=== PATIENT | female | born 1940 | race Caucasian/White ===

== ENCOUNTER → 2016-12-29 | Outpatient (CLI) | payer MEDICARE, OTHER ==
--- NOTE | 2017-01-05 06:46 | ECHOCARDIOGRAPHY REPORT ---
DATE OF SERVICE: ECHOCARDIOGRAM REPORT DATE OF SERVICE: 12/29/2016 REFERRING PHYSICIAN: Dr. Liz David DIAGNOSIS: Follow up of left breast irregularity. FINDINGS: 1. Sinus rhythm. 2. Left atrial dimensions are normal. 3. Aortic root dimensions are normal. 4. Left ventricular systolic function is preserved. Left ventricular ejection fraction is 60-70%. Mild concentric LVH is present. Diastolic interventricular septal diameter is 1.2 cm. 5. There is no wall motion abnormalities. 6. Right heart size and function is normal. 7. There is no evidence of pericardial effusion. 8. Mild diastolic dysfunction. 9. IVC is borderline enlarged with a diameter of 1.9 cm. VALVULAR STRUCTURES OF THE HEART There is mild tricuspid regurgitation and mild mitral regurgitation. RVSP is 31 mmHg. There is no significant aortic or pulmonic valve pathology. CONCLUSION: 1. Left ventricular and right ventricular size and function are normal. 2. Left ventricular function of 60-70% 3. There is no significant valvular heart disease. 4. There is mild diastolic dysfunction. 5. Mild pulmonary hypertension is present with RVSP of 31 mmHg. Job ID: [id number] DocumentID: [id number] Dictated Date: 01/04/2017 14:51:39 Software Engineer Date: 01/04/2017 15:42:06 Dictated By: ANURAG DOUGLASS MD
== END ==
LOC: CARD 10:58
PROVIDERS: ATTEND Family Medicine
DX: R01.1 Cardiac murmur, unspecified (principal)
CPT/HCPCS: 93306

== ENCOUNTER → 2017-01-18 | Outpatient (CLI) | payer MEDICARE, OTHER | LOC: CARD 15:25 | PROVIDERS: ATTEND Family Medicine | DX: R07.9 Chest pain, unspecified (principal) | CPT/HCPCS: 93005 ==

== ENCOUNTER 2017-02-20 20:35 | Outpatient (CLI) | payer MEDICARE, OTHER | END 2017-02-21 06:56 | disposition home or self-care (01) | LOC: SLEEP 20:35 | PROVIDERS: ATTEND Family Medicine | DX: G47.33 Obstructive sleep apnea (adult) (pediatric) (principal) | CPT/HCPCS: 95811 ==

== ENCOUNTER 2018-04-24 18:18 | Emergency (ER) | payer MEDICARE, OTHER ==
[~2018-04-24] VITALS: Ht 177.8 cm; Wt 81.6 kg
[2018-04-24 18:44] LABS: BILIRUBIN,URINE NEGATIVE (NEGATIVE); CLARITY,URINE CLEAR; COLOR,URINE YELLOW; GLUCOSE, URINE (UA) NEGATIVE (NEGATIVE); KETONES,URINE NEGATIVE (NEGATIVE); LEUKOCYTE ESTERASE ,URINE 1+ (NEGATIVE); NITRITE,URINE NEGATIVE (NEGATIVE); PH,URINE 7 (5-9); PROTEIN,URINE NEGATIVE (NEGATIVE); UROBILINOGEN,URINE NORMAL (NORMAL)
[2018-04-24 18:46] LABS: BASOPHILS # (AUTO) 0.1 10^3/uL (0.0-0.1); BASOPHILS % (AUTO) 1 % (0-10); EOSINOPHILS # (AUTO) 0.3 10^3/uL (0.0-0.3); EOSINOPHILS % (AUTO) 3 % (0-10); HEMATOCRIT 37 % (35-52); HEMOGLOBIN 12.4 G/DL (11.5-16.0); LYMPHOCYTES # (AUTO) 2.9 X 10^3 (1.0-4.0); LYMPHOCYTES % (AUTO) 31 % (12-44); MEAN CORPUSCULAR HEMOGLOBIN 30 PG (25-34); MEAN CORPUSCULAR HGB CONC 33 G/DL (32-36); MEAN CORPUSCULAR VOLUME 90 FL (80-99); MEAN PLATELET VOLUME 10.1 FL (7.4-10.4); MONOCYTES # (AUTO) 1.1 X 10^3 (0.0-1.0); MONOCYTES % (AUTO) 12 % (0-12); NEUTROPHILS % (AUTO) 54 % (42-75); PLATELET COUNT 228 10^3/uL (130-400); RED BLOOD COUNT 4.13 10^6/uL (4.35-5.85); WHITE BLOOD COUNT 9.2 10^3/uL (4.3-11.0)
[2018-04-24 18:53] LABS: SQUAMOUS EPITHELIAL CELL,UR 0-2 /HPF
--- NOTE | 2018-04-24 18:54 | ED General ---
General Chief Complaint: Dizziness/Syncope Stated Complaint: DIZZY Source of Information: Patient Exam Limitations: No Limitations History of Present Illness Date Seen by Provider: Apr 24, 2018 Time Seen by Provider: 18:35 Initial Comments PT ARRIVES VIA POV FROM HOME C/O SUDDEN ONSET OF SEVERE DIZZINESS AT 1630 BEGAN WHILE SITTING EXTREME SPINNING SENSATION + NAUSEA, NO VOMITING NO HEADACHE NO CHEST PAIN NO PALPITATIONS--PT HAS HISTORY OF ATRIAL FIBRILLATION AND IS ON ELIQUIS NO PARESTHESIAS OR MOTOR DEFICITS NO BLURRY VISION SLIGHT SHORT OF BREATH, BUT IS ONGOING PROBLEM, AND SAW DR. TORRE ON Sunday FOR IT--THOUGHT MIGHT BE DUE TO ELEVATED BP, BUT NO MEDICATION CHANGES OR ANY TESTS, DEFERRED TO BREAD WRAPPER--ROUTINE APPOINTMENT IN HAS HAD THIS IN THE PAST, BUT WAS A LONG TIME AGO. HAS MECLIZINE AT HOME AND TOOK 1 WITHOUT IMPROVEMENT NO UNUSUAL ACTIVITY--STATES SHE V[facility]TEERED AT [facility] THIS MORNING. PCP: DR. TORRE Allergies and Home Medications Allergies Coded Allergies: No Known Drug Allergies (Unverified , 04/24/18) Home Medications Diazepam 2 Mg Tablet, 2 MG PO Q4H Prescribed by: ROBERT SANTIZO on 04/24/182131 Meclizine HCl 25 Mg Tablet, 25-50 MG PO Q6H Prescribed by: ROBERT SANTIZO on 04/24/182131 Ondansetron 8 Mg Tab.rapdis, 8 MG PO Q4H Prescribed by: ROBERT SANTIZO on 04/24/182131 Promethazine HCl 25 Mg Supp.rect, 25 MG RC Q4H Prescribed by: ROBERT SANTIZO on 04/24/182131 Scopolamine 1 Each Patch.td72, 1 EACH TD Q72 HOURS Prescribed by: ROBERT SANTIZO on 04/24/182131 Patient Home Medication List Home Medication List Reviewed: Yes Review of Systems Constitutional: see HPI; No diaphoresis; dizziness; No malaise, No weakness EENTM: no symptoms reported Respiratory: see HPI, short of breath Cardiovascular: no symptoms reported; No chest pain, No edema, No palpitations , No syncope, No vascular heart diseas Gastrointestinal: see HPI; No abdominal pain; nausea; No vomiting Genitourinary: no symptoms reported Musculoskeletal: no symptoms reported Skin: no symptoms reported Psychiatric/Neurological: See HPI (DIZZY); Denies Headache, Denies Numbness, Denies Paresthesia, Denies Seizure, Denies Tingling, Denies Tremors, Denies Weakness Hematologic/Lymphatic: No Symptoms Reported Immunological/Allergic: no symptoms reported Past Oichrhl-Sltcrd-Yvzpjk Hx Patient Social History Alcohol Use: Occasionally Uses Recreational Drug Use: No Smoking Status: Never a Smoker Recent Foreign Travel: No Contact w/Someone Who Travel: No Seasonal Allergies Seasonal Allergies: Yes Past Medical History Surgeries: Yes (HSYT/BSO; CYSTOCOELE) Bladder Surgery, Hysterectomy, Oophorectomy Respiratory: Yes Sleep Apnea Currently Using CPAP: Yes Currently Using BIPAP: No Cardiac: Yes Atrial Fibrillation, Hypertension 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 oz. 77.576036dl; BMI Method: General Appearance: No Apparent Distress, WD/WN, Other (KEEPS EYES CLOSED AND LAYING STILL) HEENT: PERRL/EOMI, TMs Normal, Normal ENT Inspection, Pharynx Normal, Other ( NO NYSTAGMUS) Neck: Full Range of Motion, Normal Inspection, Non Tender, Supple; No Carotid Bruit, No JVD Respiratory: Normal Breath Sounds, No Accessory Muscle Use, No Respiratory Distress Cardiovascular: Regular Rate, Rhythm, No Edema, No Gallop, No JVD, No Murmur, Normal Peripheral Pulses Gastrointestinal: Normal Bowel Sounds, No Organomegaly, No Pulsatile Mass, Non Tender, Soft Back: No CVA Tenderness Extremity: Normal Capillary Refill, Normal Inspection, Normal Range of Motion, Non Tender, No Calf Tenderness, No Pedal Edema Neurologic/Psychiatric: Alert, Oriented x3, No Motor/Sensory Deficits, Normal Mood/Affect, veterinary parasitologist II-XII Norm as Tested, Other (UNABLE TO PERFORM CEREBELLAR TESTS ON ARRIVAL DUE TO DIZZINESS) Skin: Normal Color, Warm/Dry Progress/Results/Core Measures Suspected Sepsis SIRS Temperature: Pulse: Respiratory Rate: Laboratory Tests 04/24/18 18:37: White Blood Count 9.2 Blood Pressure / Mean: Laboratory Tests 04/24/18 18:37: Creatinine 0.85, INR Comment 1.0, Platelet Count 228, Total Bilirubin 0.6 Results/Orders Lab Results Laboratory Tests Test 04/24/18 18:28 04/24/18 18:37 Range/Units Urine Color YELLOW Urine Clarity CLEAR Urine pH 7 5-9 Urine Specific Drew 1.010 L 1.016-1.022 Urine Protein NEGATIVE NEGATIVE Urine Glucose (UA) NEGATIVE NEGATIVE Urine Ketones NEGATIVE NEGATIVE Urine Nitrite NEGATIVE NEGATIVE Urine Bilirubin NEGATIVE NEGATIVE Urine Urobilinogen NORMAL NORMAL MG/DL Urine Leukocyte Esterase 1+ H NEGATIVE Urine RBC (Auto) NEGATIVE NEGATIVE Urine RBC NONE /HPF Urine WBC 2-5 /HPF Urine Squamous Epithelial Cells 0-2 /HPF Urine Crystals NONE /LPF Urine Bacteria NONE /HPF Urine Casts NONE /LPF Urine Mucus NEGATIVE /LPF Urine Culture Indicated NO White Blood Count 9.2 4.3-11.0 10^3/uL Red Blood Count 4.13 L 4.35-5.85 10^6/uL Hemoglobin 12.4 11.5-16.0 G/DL Hematocrit 37 35-52 % Mean Corpuscular Volume 90 80-99 FL Mean Corpuscular Hemoglobin 30 25-34 PG Mean Corpuscular Hemoglobin Concent 33 32-36 G/DL Red Cell Distribution Width 14.0 10.0-14.5 % Platelet Count 228 130-400 10^3/uL Mean Platelet Volume 10.1 7.4-10.4 FL Neutrophils (%) (Auto) 54 42-75 % Lymphocytes (%) (Auto) 31 12-44 % Monocytes (%) (Auto) 12 0-12 % Eosinophils (%) (Auto) 3 0-10 % Basophils (%) (Auto) 1 0-10 % Neutrophils # (Auto) 5.0 1.8-7.8 X 10^3 Lymphocytes # (Auto) 2.9 1.0-4.0 X 10^3 Monocytes # (Auto) 1.1 H 0.0-1.0 X 10^3 Eosinophils # (Auto) 0.3 0.0-0.3 10^3/uL Basophils # (Auto) 0.1 0.0-0.1 10^3/uL Prothrombin Time 13.3 12.2-14.7 SEC INR Comment 1.0 0.8-1.4 Activated Partial Thromboplast Time 28 24-35 SEC Sodium Level 141 135-145 MMOL/L Potassium Level 3.4 L 3.6-5.0 MMOL/L Chloride Level 104 98-107 MMOL/L Carbon Dioxide Level 26 21-32 MMOL/L Anion Gap 11 5-14 MMOL/L Blood Urea Nitrogen 22 H 7-18 MG/DL Creatinine 0.85 0.60-1.30 MG/DL Estimat Glomerular Filtration Rate > 60 BUN/Creatinine Ratio 26 Glucose Level 112 H 70-105 MG/DL Calcium Level 9.2 8.5-10.1 MG/DL Magnesium Level 2.1 1.8-2.4 MG/DL Total Bilirubin 0.6 0.1-1.0 MG/DL Aspartate Amino Transf (AST/SGOT) 19 5-34 U/L Alanine Aminotransferase (ALT/SGPT) 18 0-55 U/L Alkaline Phosphatase 76 40-136 U/L Troponin I < 0.30 <0.30 NG/ML Total Protein 7.4 6.4-8.2 GM/DL Albumin 4.3 3.2-4.5 GM/DL TSH [place] Testing 2.70 0.35-4.94 UIU/ML My Orders Orders - ROBERT SANTIZO DO Saline Lock/Iv-Start (04/24/18 18:37) Ekg Tracing (04/24/18 18:37) Monitor-Rhythm Ecg Trace Only (04/24/18 18:37) Ct Head Wo (04/24/18 18:37) Cbc With Automated Diff (04/24/18 18:37) Comprehensive Metabolic Panel (04/24/18 18:37) Magnesium (04/24/18 18:37) Protime With Inr (04/24/18 18:37) Partial Thromboplastin Time (04/24/18 18:37) Thyroid Analyzer (04/24/18 18:37) Troponin I (04/24/18 18:37) Ua Culture If Indicated (04/24/18 18:37) Chest 1 View, Ap/Pa Only (04/24/18 18:37) Ondansetron Injection (Zofran Injectio (04/24/18 19:00) Scopolamine Patch (Transderm-Scop Patch) (04/24/18 19:00) Meclizine Tablet (Antivert Tablet) (04/24/18 19:00) Promethazine Injection (Phenergan Injec (04/24/18 19:45) Diphenhydramine Injection (Benadryl Inje (04/24/18 19:45) Ondansetron Injection (Zofran Injectio (04/24/18 20:15) Diazepam Injection (Valium Injection) (04/24/18 20:15) Medications Given in ED Current Medications Medications Dose Ordered Sig/Morenita Route Start Time Stop Time Status Last Admin Dose Admin Diazepam 2.5 mg ONCE ONCE IV 04/24/18 20:15 04/24/18 20:16 DC 04/24/18 20:20 2.5 MG Diphenhydramine HCl 25 mg ONCE ONCE IVP 04/24/18 19:45 04/24/18 19:46 DC 04/24/18 20:19 25 MG Meclizine HCl 50 mg ONCE ONCE PO 04/24/18 19:00 04/24/18 19:01 DC 04/24/18 20:19 50 MG Ondansetron HCl 4 mg ONCE ONCE IVP 04/24/18 19:00 04/24/18 19:01 DC 04/24/18 18:55 4 MG Ondansetron HCl 8 mg ONCE ONCE IVP 04/24/18 20:15 04/24/18 20:16 DC 04/24/18 20:19 8 MG Promethazine HCl 25 mg ONCE ONCE IVP 04/24/18 19:45 04/24/18 19:46 DC 04/24/18 20:20 25 MG Scopolamine 1.5 mg ONCE ONCE TD 04/24/18 19:00 04/24/18 19:01 DC 04/24/18 18:55 1.5 MG Vital Signs/I&O 04/24/18 04/24/18 18:33 22:00 Temp 98.3 Pulse 65 69 Resp 20 20 B/P (MAP) 170/95 (120) 140/89 Pulse Ox 98 96 O2 Delivery Room Air Room Air Capillary Refill : Progress Note : Progress Note NAUSEA AND DIZZINESS GONE AT DISMISSAL, NOW JUST FEELING EFFECTS FROM MEDICATIONS--PHENERGAN, BENADRYL. MECLIZINE, VALIUM PT ABLE TO AMBULATE TO AND FROM BATHROOM WITH MINIMAL ASSIST BOTH PT AND FEEL COMFORTABLE GOING HOME ECG Initial ECG Impression Date: Apr 24, 2018 Initial ECG Impression Time: 18:40 Initial ECG Rate: 63 Initial ECG Rhythm: Normal Sinus Diagnostic Imaging Comments CXR--NO ACUTE PROCESS CT HEAD--NO ACUTE PROCESS, MILDLY ENLARGED VENTRICLES PER RADIOLOGIST REPORTS @ 1955 Reviewed: Reviewed by Me Departure Impression Primary Impression: Vertigo Disposition: 01 HOME, SELF-CARE Condition: Improved Departure-Patient Inst. Referrals: NARCISO TORRE DO (PCP/Family) Primary Care Physician Patient Instructions: Vertigo (a Type of Dizziness) (DC) Add. Discharge Instructions: SLOW POSITION CHANGES DO NOT DO ANYTHING WITHOUT ASSISTANCE UNTIL YOUR SYMPTOMS ARE COMPLETELY GONE LOTS OF FLUIDS FOLLOW UP WITH YOUR DR IN 1-2 DAYS IF NO BETTER RETURN TO ER IF WORSE All discharge instructions reviewed with patient and/or family. Voiced understanding. Scripts Diazepam (Valium) 2 Mg Tablet 2 MG PO Q4H for Dizziness, #15 TAB Prov: ROBERT SANTIZO DO 04/24/18 Ondansetron (Zofran Odt) 8 Mg Tab.rapdis 8 MG PO Q4H for Nausea/Vomiting, #14 TAB Prov: ROBERT SANTIZO DO 04/24/18 Scopolamine (Transderm-Scop) 1 Each Patch.td72 1 EACH TD Q72 HOURS for Dizziness, #3 PATCH Prov: ROBERT ASNTIZO DO 04/24/18 Promethazine HCl (Phenergan) 25 Mg Supp.rect 25 MG RC Q4H for Nausea/Vomiting, #10 SUPP.RECT Prov: ROBERT SANTIZO DO 04/24/18 Meclizine HCl (Meclizine HCl) 25 Mg Tablet 25-50 MG PO Q6H for Dizziness, #30 TAB Prov: ROBERT SANTIZO DO 04/24/18 ROBERT SANTIZO DO Apr 24, 2018 18:54
[2018-04-24 18:58] LABS: PROTHROMBIN TIME PATIENT 13.3 SEC (12.2-14.7)
[2018-04-24] MEDS ORDERED: SCOPOLAMINE 1.5 MG (TRANSDERM-SCOP) PATCH TD ONE (19:00)
[2018-04-24] MEDS ORDERED: ONDANSETRON 4 MG/2 ML (SDV) Z0FRAN IVP ONE ×2 (19:00→20:15)
[2018-04-24] MEDS ORDERED: MECLIZINE 25 MG (ANTIVERT) TAB PO ONE (19:00)
[2018-04-24 19:09] LABS: ALANINE AMINOTRANSFERASE 18 U/L (0-55); ALBUMIN 4.3 GM/DL (3.2-4.5); ALKALINE PHOSPHATASE 76 U/L (40-136); BILIRUBIN,TOTAL 0.6 MG/DL (0.1-1.0); BUN/CREATININE RATIO 26; CALCIUM 9.2 MG/DL (8.5-10.1); CARBON DIOXIDE 26 MMOL/L (21-32); CHLORIDE 104 MMOL/L (98-107); CREATININE SERUM 0.85 MG/DL (0.60-1.30); GFR ESTIMATED > 60; GLUCOSE 112 MG/DL (70-105); MAGNESIUM 2.1 MG/DL (1.8-2.4); POTASSIUM 3.4 MMOL/L (3.6-5.0); SODIUM 141 MMOL/L (135-145); TOTAL PROTEIN 7.4 GM/DL (6.4-8.2)
[2018-04-24] MEDS ORDERED: diphenhydrAMINE 50 MG/ML INJ (BENADRYL) IVP ONE (19:45)
[2018-04-24] MEDS ORDERED: PROMETHAZINE INJ 25 MG/ML (PHENERGAN) AMP IVP ONE (19:45)
--- NOTE | 2018-04-24 19:47 | Diagnostic Imaging Report ---
PATIENT HISTORY: Dizziness, nausea and vomiting. TECHNIQUE: Single frontal view of the chest COMPARISON: None FINDINGS: Lung volumes are mildly large. No focal consolidation is seen. There is no pleural effusion or pneumothorax. The cardiac silhouette is upper normal in size. No acute osseous abnormality seen. IMPRESSION: Mildly large lung volumes with no acute osseous abnormality seen. Dictated by: Dictated on workstation # [id number]
--- NOTE | 2018-04-24 19:50 | Diagnostic Imaging Report ---
PROCEDURE: CT head without contrast. TECHNIQUE: Multiple contiguous axial images were obtained through the brain without the use of intravenous contrast. INDICATION: Dizziness, nausea and vomiting COMPARISON: None FINDINGS: The ventricles and cortical sulci are mildly prominent. There appears to be mildly increased prominence of the ventricles relative to the cortical sulci. There is no midline shift or mass effect. No acute intracranial hemorrhage is seen. There is no CT evidence of acute territorial ischemia. The calvarium appears intact. The visualized paranasal sinuses are clear. IMPRESSION: 1. No acute intracranial hemorrhage. No CT evidence of acute territorial ischemia. 2. Prominence of the ventricles appears disproportionate relative to the cortical sulci. This can be seen with normal pressure hydrocephalus. Dictated by: Dictated on workstation # [id number]
[2018-04-24] MEDS ORDERED: DIAZEPAM INJ 10 MG/2 ML (VALIUM) SYR IV ONE (20:15)
[2018-04-24] MEDS ORDERED: SCOP1PAT11 TD (21:32)
[2018-04-24] MEDS ORDERED: ONDA8TAB9 PO (21:32)
[2018-04-24] MEDS ORDERED: MECL-106 PO (21:32)
[2018-04-24] MEDS ORDERED: PROM25SU43 RC (21:32)
[2018-04-24] MEDS ORDERED: DIAZ2TAB PO (21:32)
[2018-04-24 22:00] VITALS: BP 140/89
== END 2018-04-24 22:03 | disposition home or self-care (01) ==
LOC: EDUNIT# 18:18 → ER 18:19
DX: R42 Dizziness and giddiness (principal); G47.30 Sleep apnea, unspecified; I48.91 Unspecified atrial fibrillation; I10 Essential (primary) hypertension; K21.9 Gastro-esophageal reflux disease without esophagitis; Z90.710 Acquired absence of both cervix and uterus
CPT/HCPCS: 36415; 70450; 71045; 80053; 81000; 83735; 84443; 84484; 85025; 85610; 85730; 93005; 93041; 96374; 96375; 96376

== ENCOUNTER 2019-05-16 14:48 | Outpatient (RCR) | payer MEDICARE, OTHER ==
[~2019-05-16 14:48] MED LIST: DIAZ2TAB PO; MECL-106 PO; ONDA8TAB9 PO; PROM25SU43 RC; SCOP1PAT11 TD
== END 2019-05-18 | disposition home or self-care (01) ==
LOC: CR3 14:48
PROVIDERS: ATTEND Family Medicine
DX: Z29.8 Encounter for other specified prophylactic measures (principal)

== ENCOUNTER 2019-05-21 06:29 | Outpatient (RCR) | payer MEDICARE, OTHER | END 2019-06-18 | disposition home or self-care (01) | LOC: CR3 06:29 | PROVIDERS: ATTEND Family Medicine | DX: Z29.8 Encounter for other specified prophylactic measures (principal) ==

== ENCOUNTER → 2021-03-15 | Outpatient (CLI) | payer MEDICARE, OTHER ==
[~2021-03-15] MED LIST changes: +GADOBUTROL 7.5 MMOL/7.5 ML (GADAVIST) VIAL IV ONE; -MECL-106 PO; +MECL-149 PO
--- NOTE | 2021-03-15 09:56 | Diagnostic Imaging Report ---
Technique: Multiplanar multisequence MRI of the brain was performed with and without contrast. Additional dedicated sequences are performed of the internal auditory canals. Reason for exam: Sudden hearing loss in the left ear. Comparison: CT head on 04/24/2018. Findings: No acute ischemia, mass, or hemorrhage. No abnormal enhancement. T2 hyperintense signal seen in the periventricular and subcortical white matter. The ventricles and cortical sulci are prominent. The basilar cisterns are symmetric and unremarkable. The sellar and suprasellar regions have a normal appearance. The major intracranial flow voids are intact. The course of the 7th and 8th cranial nerves is unremarkable bilaterally. No evidence of abnormal enhancement. The internal auditory canals are symmetric and unremarkable. No evidence of CPA mass. The bilateral inner ear structures have an unremarkable MRI appearance. The bilateral Meckel's caves and cavernous sinuses have a normal appearance. The brainstem and posterior fossa are unremarkable. The paranasal sinuses and mastoid air cells demonstrate normal signal characteristics. The globes and orbits are symmetric and unremarkable. The scalp and calvarium have a normal appearance. Impression: 1. No acute ischemia, mass, or hemorrhage. No abnormal enhancement. 2. Normal appearance of the bilateral 7th and 8th cranial nerves. No evidence of abnormal enhancement or CPA mass. 3. Generalized parenchymal volume loss with scattered chronic microvascular disease. Dictated by: Dictated on workstation # [id number]
== END ==
LOC: RAD 08:00
PROVIDERS: ATTEND Otolaryngology Otolaryngology/Facial Plastic Surgery
DX: I67.82 Cerebral ischemia (principal); H91.22 Sudden idiopathic hearing loss, left ear
CPT/HCPCS: 70553

== ENCOUNTER 2021-03-21 05:37 | Outpatient (CLI) | payer MEDICARE, OTHER ==
[~2021-03-21] VITALS: Ht 177.8 cm; Wt 80.5 kg
[~2021-03-21 05:37] MED LIST changes: -GADOBUTROL 7.5 MMOL/7.5 ML (GADAVIST) VIAL IV ONE
[2021-03-21] MEDS ORDERED: CYAN100088 PO (12:52)
[2021-03-21] MEDS ORDERED: UBID100C17 PO (12:52)
[2021-03-21] MEDS ORDERED: DILT120T11 PO (12:52)
[2021-03-21] MEDS ORDERED: METO50TA7 PO (12:52)
[2021-03-21] MEDS ORDERED: VENL150C PO (12:52)
[2021-03-21] MEDS ORDERED: SIMV20TA26 PO (12:52)
[2021-03-21] MEDS ORDERED: PANT40TA52 PO (12:52)
[2021-03-21] MEDS ORDERED: CHOL10007 PO (12:52)
[2021-03-21] MEDS ORDERED: RIVA20TA PO (12:52)
[2021-03-21] MEDS ORDERED: LEVO88TA54 PO (12:52)
== END 2021-03-21 12:58 | disposition home or self-care (01) ==
LOC: PREOP 05:37
PROVIDERS: ATTEND Specialist
DX: Z01.818 Encounter for other preprocedural examination (principal)

== ENCOUNTER 2021-03-25 06:33 | Day surgery (SDC) | payer MEDICARE, OTHER ==
[~2021-03-25] VITALS: Ht 177.8 cm; Wt 80.5 kg
[~2021-03-25 06:33] MED LIST changes: +CHOL10007 PO; +CYAN100088 PO; +DILT120T11 PO; +LEVO88TA54 PO; +METO50TA7 PO; +PANT40TA52 PO; +RIVA20TA PO; +SIMV20TA26 PO; +UBID100C17 PO; +VENL150C PO
[2021-03-25 06:45] VITALS: BP 140/74
[2021-03-25] MEDS ORDERED: POVIDONE (BETADINE) OPHTH SOLN 5% 30 ML OP ONE (06:45)
[2021-03-25] MEDS ORDERED: TIMOLOL MALEATE 0.5% 5 ML (TIMOPTIC) BTL OU PRN (06:45)
[2021-03-25] MEDS ORDERED: MOXIFLOXACIN OPHTH SOLN 5 MG/ML 0.3 ML SYRINGE OP ONE (06:45)
[2021-03-25] MEDS ORDERED: LIDOCAINE PF 1% 2 ML VIAL IR PRN (06:45)
[2021-03-25] MEDS: TETRACAINE 0.5% OPHTH SOLN 4 ML BTL (SINGLE DOSE ONLY) OU PRN ×4 (06:53→07:12)
[2021-03-25] MEDS: PHENYLEPHRINE 10% OPHTH (NEO-SYN) 5 ML BTL OU SCH ×3 (06:59→07:12)
[2021-03-25] MEDS: TROPICAMIDE 1% OPH SOLN (MYDRIACYL) 15 ML BTL OP SCH ×3 (06:59→07:12)
[2021-03-25] MEDS ORDERED: MIDAZOLAM 2 MG/2 ML (VERSED) VIAL ONE (07:38)
--- NOTE | 2021-03-25 07:44 | Ophthalmologist Pre-Op Note ---
Pre-Operative Progress Note H&P Reviewed The H&P was reviewed, patient examined and no changes noted. Date H&P Reviewed: Mar 25, 2021 Time H&P Reviewed: 07:43 Pre-Op Dx Cataract, Left Eye SOFIA ELIZABETH MD Mar 25, 2021 07:44
[2021-03-25] MEDS ORDERED: acetaZOLAMIDE ER 500 MG CAP (DIAMOX SEQUELS) PO ONE (08:00)
--- NOTE | 2021-03-25 08:06 | Ophthalmology Operative Report ---
Cataract removal/placement IOL PREOPERATIVE DIAGNOSIS: Cataract Left Eye POSTOPERATIVE DIAGNOSIS: Cataract Left Eye PROCEDURE: Cataract removal and placement of posterior chamber implant, left eye SURGEON: Darrell Elizabeth ANESTHESIA: Topical with sedation COMPLICATIONS: None ESTIMATED BLOOD LOSS: Minimal DESCRIPTION OF PROCEDURE: After proper informed consent was obtained, the patient, a 81 female, was taken to the Operating Room and the left eye was anesthetized with tetracaine. The left eye was then prepped and draped in the usual manner. A wire lid speculum was placed. A paracentesis was made at the left hand position. Preservative free lidocaine was injected into the anterior chamber followed by viscoelastic. A clear corneal incision was made in the temporal position. A capsulorrhexis was preformed and the central nuclear and cortical material were removed. The posterior capsule was polished and an Deon 22.0 AU00T0 was placed into the capsular bag. The residual viscoelastic was aspirated and balanced saline solution was injected into the anterior chamber. Moxifloxacin was injected into the anterior chamber. The wound was checked and found to be water tight. The patient tolerated the procedure well without complications. DARRELL ELIZABETH MD Mar 25, 2021 08:06
[2021-03-25 08:14] VITALS: BP 152/73
--- NOTE | 2021-03-25 12:51 | Anesthesia-General Post-Op ---
MAC Patient Condition Mental Status/LOC: Same as Preop Cardiovascular: Satisfactory Nausea/Vomiting: Absent Respiratory: Satisfactory Pain: Controlled Complications: Absent Post Op Complications Complications None Follow Up Care/Instructions Patient Instructions None needed. Anesthesiology Discharge Order Discharge Order Patient is doing well, no complaints, stable vital signs, no apparent adverse anesthesia problems. No complications reported per nursing. JOSÉ MIGUEL BOYD CRNA Mar 25, 2021 12:51
== END 2021-03-25 08:16 ==
LOC: SDC 06:33
PROVIDERS: ATTEND Specialist
DX: H25.12 Age-related nuclear cataract, left eye (principal); I10 Essential (primary) hypertension; I25.10 Atherosclerotic heart disease of native coronary artery without angina pectoris; K21.9 Gastro-esophageal reflux disease without esophagitis; I48.91 Unspecified atrial fibrillation; M19.90 Unspecified osteoarthritis, unspecified site; E03.9 Hypothyroidism, unspecified; Z79.899 Other long term (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; Z79.01 Long term (current) use of anticoagulants; Z79.890 Hormone replacement therapy
CPT/HCPCS: 66984; V2632

== ENCOUNTER 2021-04-08 06:06 | Day surgery (SDC) | payer MEDICARE, OTHER ==
[~2021-04-08] VITALS: Ht 177.8 cm; Wt 80.5 kg
[2021-04-08] MEDS ORDERED: TIMOLOL MALEATE 0.5% 5 ML (TIMOPTIC) BTL OU PRN (06:15)
[2021-04-08] MEDS ORDERED: LIDOCAINE PF 1% 2 ML VIAL IR PRN (06:15)
[2021-04-08] MEDS ORDERED: POVIDONE (BETADINE) OPHTH SOLN 5% 30 ML OP ONE (06:15)
[2021-04-08] MEDS ORDERED: MOXIFLOXACIN OPHTH SOLN 5 MG/ML 0.3 ML SYRINGE OP ONE (06:15)
[2021-04-08] MEDS: TETRACAINE 0.5% OPHTH SOLN 4 ML BTL (SINGLE DOSE ONLY) OU PRN ×4 (06:19→06:45)
[2021-04-08 06:20] VITALS: BP 144/73
[2021-04-08] MEDS: TROPICAMIDE 1% OPH SOLN (MYDRIACYL) 15 ML BTL OP SCH ×3 (06:28→06:45)
[2021-04-08] MEDS: PHENYLEPHRINE 10% OPHTH (NEO-SYN) 5 ML BTL OU SCH ×3 (06:28→06:45)
[2021-04-08] MEDS ORDERED: MIDAZOLAM 2 MG/2 ML (VERSED) VIAL ONE (06:52)
--- NOTE | 2021-04-08 06:55 | Ophthalmologist Pre-Op Note ---
Pre-Operative Progress Note H&P Reviewed The H&P was reviewed, patient examined and no changes noted. Date H&P Reviewed: Apr 08, 2021 Time H&P Reviewed: 06:55 Pre-Op Dx Cataract, Right Eye SOFIA ELIZABETH MD Apr 08, 2021 06:55
--- NOTE | 2021-04-08 07:21 | Ophthalmology Operative Report ---
Cataract removal/placement IOL PREOPERATIVE DIAGNOSIS: Cataract Right Eye POSTOPERATIVE DIAGNOSIS: Cataract Right Eye PROCEDURE: Cataract removal and placement of posterior chamber implant, right eye SURGEON: Darrell Elizabeth ANESTHESIA: Topical with sedation COMPLICATIONS: None ESTIMATED BLOOD LOSS: Minimal DESCRIPTION OF PROCEDURE: After proper informed consent was obtained, the patient, a 81 female, was taken to the Operating Room and the right eye was anesthetized with tetracaine. The right eye was then prepped and draped in the usual manner. A wire lid speculum was placed. A paracentesis was made at the left hand position. Preservative free lidocaine was injected into the anterior chamber followed by viscoelastic. A clear corneal incision was made in the temporal position. A capsulorrhexis was preformed and the central nuclear and cortical material were removed. The posterior capsule was polished and Deon 23.0 AU00T0 IOL was placed into the capsular bag. The residual viscoelastic was aspirated and balanced saline solution was injected into the anterior chamber. Moxifloxacin was injected into the anterior chamber. The wound was checked and found to be water tight. The patient tolerated the procedure well without complications. DARRELL ELIZABETH MD Apr 08, 2021 07:21
[2021-04-08 07:26] VITALS: BP 142/79
[2021-04-08] MEDS ORDERED: acetaZOLAMIDE ER 500 MG CAP (DIAMOX SEQUELS) PO ONE (07:30)
--- NOTE | 2021-04-08 13:10 | Anesthesia-General Post-Op ---
MAC Patient Condition Mental Status/LOC: Same as Preop Cardiovascular: Satisfactory Nausea/Vomiting: Absent Respiratory: Satisfactory Pain: Controlled Complications: Absent Post Op Complications Complications None Follow Up Care/Instructions Patient Instructions None needed. Anesthesiology Discharge Order Discharge Order Patient was doing well after the procedure, no complaints, stable vital signs, no apparent adverse anesthesia problems. ROSENDO MARLEY DO Apr 08, 2021 13:10
== END 2021-04-08 07:28 ==
LOC: SDC 06:06
PROVIDERS: ATTEND Specialist
DX: H25.11 Age-related nuclear cataract, right eye (principal); I10 Essential (primary) hypertension; I25.10 Atherosclerotic heart disease of native coronary artery without angina pectoris; K21.9 Gastro-esophageal reflux disease without esophagitis; E03.9 Hypothyroidism, unspecified; I48.91 Unspecified atrial fibrillation; M19.90 Unspecified osteoarthritis, unspecified site; Z79.899 Other long term (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; Z79.890 Hormone replacement therapy; Z79.01 Long term (current) use of anticoagulants; Z88.8 Allergy status to other drugs, medicaments and biological substances
CPT/HCPCS: 66984; V2632

== ENCOUNTER → 2022-04-14 | Outpatient (CLI) | payer MEDICARE, OTHER ==
[~2022-04-14] MED LIST changes: +SCOP1PAT10 TD; -SCOP1PAT11 TD; -VENL150C PO; +VENL150C3 PO
--- NOTE | 2022-04-14 17:48 | Diagnostic Imaging Report ---
INDICATION: Atrial fibrillation COMPARISON: 04/24/2008. FINDINGS: Frontal and lateral views of the chest demonstrate normal heart size and pulmonary vascularity. The lungs are clear. There are no signs of infiltrate, pleural effusions or pneumothoraces. The visualized osseous structures show no acute abnormality. IMPRESSION: No acute process. No signs of infiltrates, effusions or pneumothoraces. Dictated by: Dictated on workstation # [id number]
== END ==
LOC: RAD 14:50
PROVIDERS: ATTEND Family Medicine
DX: I48.91 Unspecified atrial fibrillation (principal)
CPT/HCPCS: 71046

== ENCOUNTER → 2022-04-18 | Outpatient (CLI) | payer MEDICARE, OTHER ==
[~2022-04-18] MED LIST changes: +RT-ALBUTEROL SULF 2.5 MG/3 ML PRE-MIX VIAL INH ONE
== END ==
LOC: RT 13:50
PROVIDERS: ATTEND Internal Medicine Cardiovascular Disease
DX: I48.19 Other persistent atrial fibrillation (principal)
CPT/HCPCS: 94060; 94726; 94729

== ENCOUNTER → 2022-05-01 | Outpatient (CLI) | payer MEDICARE, OTHER ==
[~2022-05-01] MED LIST changes: +BUDE10.7 IH; +DILT120T3 PO; -RT-ALBUTEROL SULF 2.5 MG/3 ML PRE-MIX VIAL INH ONE; +VNL37.5T PO
== END ==
LOC: LABNPT 08:23
PROVIDERS: ATTEND Internal Medicine Cardiovascular Disease
DX: Z01.89 Encounter for other specified special examinations (principal)
CPT/HCPCS: 87636

== ENCOUNTER 2022-05-03 10:30 | Day surgery (SDC) | payer MEDICARE, OTHER ==
[~2022-05-03] VITALS: Ht 177.8 cm; Wt 80.1 kg
[2022-05-03] VITALS (7 sets, daily range): BP systolic 116–135; BP diastolic 64–95
[2022-05-03 08:54] LABS: BASOPHILS # (AUTO) 0.1 10^3/uL (0.0-0.1); BASOPHILS % (AUTO) 1 % (0-10); EOSINOPHILS # (AUTO) 0.2 10^3/uL (0.0-0.3); EOSINOPHILS % (AUTO) 3 % (0-10); HEMATOCRIT 38 % (35-52); HEMOGLOBIN 12.1 g/dL (11.5-16.0); LYMPHOCYTES # (AUTO) 1.4 10^3/uL (1.0-4.0); LYMPHOCYTES % (AUTO) 15 % (12-44); MEAN CORPUSCULAR HEMOGLOBIN 29 pg (25-34); MEAN CORPUSCULAR HGB CONC 32 g/dL (32-36); MEAN CORPUSCULAR VOLUME 89 fL (80-99); MEAN PLATELET VOLUME 9.8 fL (9.0-12.2); MONOCYTES % (AUTO) 10 % (0-12); NEUTROPHILS % (AUTO) 72 % (42-75); PLATELET COUNT 257 10^3/uL (130-400); WHITE BLOOD COUNT 9.7 10^3/uL (4.3-11.0)
--- NOTE | 2022-05-03 09:20 | Cardiac Procedure Note-CS/ASA ---
Pre-Procedure Note Pre-Op Procedure Note Date of Available H&P: Apr 24, 2022 Date H&P Reviewed: May 03, 2022 Time H&P Reviewed: 08:55 History & Physical: H&P Reviewed, Patient Examed, No changes noted Pre-Operative Diagnosis: Atrial fibrillation Conscious Sedation Pre-Proced Time 08:55 ASA Score 3 For ASA 3 and 4: Consider anesthesia and medical clearance. Also, for patients with a history of failed moderate sedation consider anesthesia. Airway Lungs Heart ASA score ASA 1: a normal healthy patient ASA 2: a patient with a mild systemic disease (mid diabetes, controlled hypertension, obesity x ASA 3: a patient with a severe systemic disease that limits activity (angina, COPD, prior Myocardial infarction) ASA 4: a patient with an incapacitating disease that is a constant threat to life (CHF, renal failure) ASA 5: a moribund patient not expected to survive 24 hrs. (ruptured aneurysm) ASA 6: a declared brain- patient whose organs are being harvested. For emergent operations, add the letter E after the classification Mallampati Classification Grade 3 Sedation Plan Analgesia, Amnesia, Plan communicated to team members, Discussed options with patient/fam, Discussed risks with patient/fam The patient is an appropriate candidate to undergo the planned procedure, sedation, and anesthesia. The patient immediately re-assessed prior to indication. ASTON SAVAGE MD May 03, 2022 09:20
[2022-05-03 09:21] LABS: TRIGLYCERIDES 64 MG/DL (<150); VLDL CHOLESTEROL 13 MG/DL (5-40)
[2022-05-03 09:26] LABS: CHOLESTEROL 141 MG/DL (< 200); HDL CHOLESTEROL 64 MG/DL (40-60)
[~2022-05-03 10:30] MED LIST changes: +LIDOCAINE 2% VISCOUS 15 ML UDC ONE; +LIDOCAINE 2% VISCOUS 15 ML UDC PO ONE; +NS IV 1000 ML 1,000 ML IV SCH; +NS IV 1000 ML 1,000 ML ONE; +proPOfol 200 MG/20 ML (DIPRIVAN) VIAL IV ONE
--- NOTE | 2022-05-03 10:40 | Discharge Inst-Post CATH ---
Discharge Inst-CATH/EP Problems Reviewed?: Yes Post Cardiac Cath/EP D/C Inst Follow Up/Plan Appointment with Dr. Maxwell's office in 1 to 2 weeks <b>CARDIAC CATH/EP PROCEDURE DISCHARGE INSTRUCTIONS</b> ACTIVITY * Go Home directly and rest. * Limit activity of the leg (or wrist if it was used) for 7 days including aer obics, swimming, jogging, bicycling, etc. * Restrict stair-climbing for 7 days if possible, if not, climb up with your non-cath leg, then bring together on the same step. * Avoid lifting, pushing, pulling or excessive movement of the affected extremi ty for 7 days. * Customary sexual activity may be resumed after 2 days-use caution not to use a position that strains or causes pain to the affected extremity. * No driving for 24 hours. * NO SMOKING. * Avoid straining for bowel movements for 7 days. * Gentle walking on level ground is allowed. * Returning to work will depend on the type of procedure and the results. Your doctor will discuss this with you. CALL YOUR DOCTOR FOR ANY OF THE FOLLOWING: *If bleeding from the puncture site occurs- Apply gentle pressure to site with clean cloth and call your doctor or EMS. * If a knot or lump forms under the skin, increases in size, or causes pain. * If bruising appears to be worsening or moving further down your leg instead of disappearing. * Temperature above 101 F. CARE OF YOUR GROIN INCISION; * Bruising or purple discoloration of the skin near the puncture site is common. * You may shower only, no bathtub bathing for 5 days. Be careful to avoid slipping as your leg may feel stiff. * If a closure device was used on your femoral artery, please see the attached guide regarding care of the device and your leg. * Leave dressing on FOR 24 hours. CARE OF YOUR WRIST INCISION; * Bruising or purple discoloration of the skin near the puncture site is common. * You may shower. * DO NOT submerge wrist. * Leave dressing on FOR 24 hours. ASTON MAXWELL MD May 03, 2022 10:40
--- NOTE | 2022-05-03 10:41 | Cardioversion ---
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 Electrical cardioversion was carried out with anesthesia support with propofol. 200 joules of synchronized shock was delivered through external patches which promptly restored sinus rhythm. The patient tolerated the procedure well. Conclusions: Successful electrical cardioversion and terminating atrial fibrillation without complication Final Diagnosis: Paroxysmal atrial fibrillation Palpitation Tachycardia ASTON MAXWELL MD May 03, 2022 10:41
--- NOTE | 2022-05-03 13:21 | Anesthesia-General Post-Op ---
MAC Patient Condition Mental Status/LOC: Same as Preop Cardiovascular: Satisfactory Nausea/Vomiting: Absent Respiratory: Satisfactory Pain: Controlled Complications: Absent Post Op Complications Complications None Follow Up Care/Instructions Patient Instructions None needed. Anesthesiology Discharge Order Discharge Order Patient is doing well, no complaints, stable vital signs, no apparent adverse anesthesia problems. No complications reported per nursing. ZACH HAIRSTON CRNA May 03, 2022 13:21
== END 2022-05-03 12:14 | disposition home or self-care (01) ==
LOC: CATH 10:30
PROVIDERS: ATTEND Internal Medicine Cardiovascular Disease
DX: I48.0 Paroxysmal atrial fibrillation (principal); I34.1 Nonrheumatic mitral (valve) prolapse; I10 Essential (primary) hypertension; I25.10 Atherosclerotic heart disease of native coronary artery without angina pectoris; E03.9 Hypothyroidism, unspecified; Z79.890 Hormone replacement therapy; E78.5 Hyperlipidemia, unspecified; Z79.899 Other long term (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
CPT/HCPCS: 36415; 80061; 85025; 87081; 92960; 93005; 93312

== ENCOUNTER 2022-08-02 15:38 | Emergency (ER) | payer MEDICARE, OTHER ==
[~2022-08-02] VITALS: Ht 17 cm; Wt 79.4 kg
[~2022-08-02 15:38] MED LIST changes: -LIDOCAINE 2% VISCOUS 15 ML UDC ONE; -LIDOCAINE 2% VISCOUS 15 ML UDC PO ONE; -NS IV 1000 ML 1,000 ML IV SCH; -NS IV 1000 ML 1,000 ML ONE; -proPOfol 200 MG/20 ML (DIPRIVAN) VIAL IV ONE
--- NOTE | 2022-08-02 15:51 | ED Fall/Injury ---
General Chief Complaint: Trauma-Non Activation Stated Complaint: FALL Source: patient Exam Limitations: no limitations History of Present Illness Date Seen by Provider: Aug 02, 2022 Time Seen by Provider: 15:50 Initial Comments This is a 82-year-old female who presented to the ER via POV with complaints of right shoulder pain, right facial pain and bruising after a same level fall just prior to arrival. She does take Xarelto daily and is compliant with her medi cations. No known loss of consciousness. Allergies and Home Medications Allergies Coded Allergies: apixaban (Verified Allergy, Unknown, Rash, 03/21/21) Patient Home Medication List Home Medication List Reviewed: Yes Budesonide/Glycopyr/Formoterol (Breztri Aerosphere Inhaler) 160 Mcg-9 Mcg-4.8 Mcg/Actuation Hfa.aer.ad, 10.7 GM IH BID, (Reported) Entered as Reported by: Nanci Carson on 05/03/22 09 Cholecalciferol (Vitamin D3) (Vitamin D3) Unknown Strength Capsule, 1 TAB PO DAILY, (Reported) Entered as Reported by: GRAHAM ZAPATA on 03/21/21 1252 Cyanocobalamin (Vitamin B-12) (B-12) 1,000 Mcg Tablet, 1,000 MCG PO DAILY, (Reported) Entered as Reported by: GRAHAM ZAPATA on 03/21/21 1252 Diltiazem HCl (Diltiazem HCl) 120 Mg Tablet, 120 MG PO BID, (Reported) Entered as Reported by: Nanci Carson on 05/03/22 09 Levothyroxine Sodium (Levothyroxine Sodium) 88 Mcg Tablet, 88 MG PO DAILY, (Reported) Entered as Reported by: GRAHAM ZAPATA on 03/21/21 1252 Metoprolol Succinate (Metoprolol Succinate) 50 Mg Tab.er.24h, 25 MG PO BID, (Reported) Entered as Reported by: GRAHAM ZAPATA on 03/21/21 1252 Pantoprazole Sodium (Pantoprazole Sodium) 40 Mg Tablet.dr, 40 MG PO DAILY, (Reported) Entered as Reported by: GRAHAM ZAPATA on 03/21/21 1252 Rivaroxaban (Xarelto) 20 Mg Tablet, 20 MG PO DAILY, (Reported) Entered as Reported by: Nanci Carson on 05/03/22 0907 Simvastatin (Simvastatin) 20 Mg Tablet, 20 MG PO DAILY, (Reported) Entered as Reported by: GRAHAM ZAPATA on 03/21/21 1252 Ubidecarenone (Coq-10) 100 Mg Capsule, 100 MG PO DAILY, (Reported) Entered as Reported by: GRAHAM ZAPATA on 03/21/21 1252 Venlafaxine HCl (Venlafaxine HCl) 37.5 Mg Tab, 37.5 MG PO DAILY, (Reported) Entered as Reported by: Nanci Carson on 05/03/22 09 Review of Systems Review of Systems Constitutional: see HPI Past Udxfvnq-Aydapj-Xzugzb Hx Seasonal Allergies Seasonal Allergies: Yes Past Medical History Surgeries: Yes (HSYT/BSO; CYSTOCOELE) Eye Surgery, Hysterectomy, Orthopedic Respiratory: Yes Pneumonia Currently Using CPAP: Yes Currently Using BIPAP: No Cardiac: Yes Atrial Fibrillation, Irregular Heartbeat Neurological: No Vertigo [employer] History: Hysterectomy, Menopausal Genitourinary: No Gastrointestinal: Yes Gastroesophageal Reflux Musculoskeletal: No Endocrine: No Hypothyroidsim HEENT: No Cancer: No Skin Psychosocial: No Integumentary: No Blood Disorders: No Physical Exam Vital Signs Vital Signs - First Documented 08/02/22 08/02/22 15:44 16:54 Temp 35.9 Pulse 98 Resp 20 B/P (MAP) 148/93 (111) Pulse Ox 99 O2 Delivery Room Air O2 Flow Rate 3.00 Capillary Refill : Height, Weight, BMI Height: 5'10.00" Weight: 180lbs. oz. 81.307144zw; 25.33 BMI Method:Stated General Appearance: WD/WN, no apparent distress HEENT: PERRL/EOMI, normal ENT inspection, pharynx normal Neck: supple, normal inspection Cardiovascular: normal peripheral pulses, no edema Progress/Results/Core Measures Results/Orders My Orders Orders - FER FLOYD APRN Ct Head/Face/Cervical Wo (08/02/22 15:48) Shoulder Immoblizer (08/02/22 15:48) Ribs/Unilateral With Chest (08/02/22 15:48) Fentanyl Inj (Sublimaze Injection) (08/02/22 16:15) Fentanyl Inj (Sublimaze Injection) (08/02/22 16:03) Shoulder, Right, 3 Views (08/02/22 15:48) Oxycodone Immediate Rel Tablet (Oxyir Ta (08/02/22 17:15) Ondansetron Injection (Zofran Injectio (08/02/22 18:00) Medications Given in ED Current Medications Medications Dose Ordered Sig/Morenita Route Start Time Stop Time Status Last Admin Dose Admin Fentanyl Citrate 50 mcg ONCE ONCE IVP 08/02/22 16:15 08/02/22 16:16 DC 08/02/22 16:04 50 MCG Oxycodone HCl 5 mg ONCE ONCE PO 08/02/22 17:15 08/02/22 17:16 DC 08/02/22 17:16 5 MG Vital Signs/I&O 08/02/22 08/02/22 08/02/22 15:44 16:11 16:54 Temp 35.9 35.9 Pulse 98 98 91 Resp 20 18 18 B/P (MAP) 148/93 (111) 148/93 (111) 153/98 (116) Pulse Ox 99 99 96 O2 Delivery Room Air Room Air Nasal Cannula O2 Flow Rate 3.00 Departure Communication (Admissions) Time/Spoke to Consulting Phy: 16:58 Dr. Esquivel Impression Primary Impression: Fall on same level Additional Impressions: Closed right humeral fracture Contusion of face Disposition: 01 HOME, SELF-CARE Condition: Improved Departure-Patient Inst. Decision time for Depature: 17:12 Referrals: FUAD ESQUIVEL MD, JACQUELINE S DO (PCP/Family) Primary Care Physician Patient Instructions: Minor Head Injury, Adult ED, Upper Arm Fracture ED Add. Discharge Instructions: Plan: 1. Discharge home. 2. Observe the patient for 24-48 hours. Contact your famliy physician, or return to the ER immeidately if any of the following are observed. -Repeated vomiting -Confusion, delirium or disorientation -Blurred vision or double vision -A difference in pupil size comparing left to right (black part of the eye) -Twitching or convulsions -Clear or blood fluid from the nose or ears -Persistent headaches or the worst headache of your life -Weakness of face, arm or leg muscles -Difficulty in rousing patient (the patient should be awakened every 2 hours during the first night) 3. Take nothing stronger than Tylenol or Ibuprofenfor pain. 4. HOLD YOUR XARELTO TOMORROW, YOU CAN RESUME ON 08/04/22. 5. Return to ER for any other new, concerning, or worsening symptoms. Right humeral neck fracture 1. Follow up with Dr. Esquivel next week. Please call to schedule appointment. 2. Keep arm in splint, wiggle fingers frequently. 3. Use ice 20 minutes at a time for pain/swelling. 4. May take Oxycodone 5/325mg by mouth every 4-6 hours as needed. May cause drowsiness and dizziness. Do not drive while taking. 5. Return to ER for any new, concerning, or worsening symptoms. All discharge instructions reviewed with patient and/or family. Voiced understanding. 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
[2022-08-02] MEDS ORDERED: fentaNYL INJ 100 MCG/2 ML AMP ONE (16:03)
[2022-08-02] MEDS ORDERED: fentaNYL INJ 100 MCG/2 ML AMP IVP ONE (16:15)
--- NOTE | 2022-08-02 16:36 | Diagnostic Imaging Report ---
INDICATION: Right shoulder pain post fall. EXAMINATION: AP, oblique and transscapular views of the right shoulder were obtained. FINDINGS: There is an acute fracture of the right humeral neck with mild angulation and displacement. There is no dislocation of the glenohumeral joint. AC joint appears intact. IMPRESSION: Acute right humeral neck fracture with mild displacement and angulation. Dictated by: Dictated on workstation # [id number]
--- NOTE | 2022-08-02 16:39 | Diagnostic Imaging Report ---
CLINICAL INDICATION: Patient is status post fall today and hit head. Patient has swelling above right eye. EXAM: Axial Head CT without IV contrast with sagittal and coronal reformations. Axial Maxillofacial CT scan without IV contrast with sagittal and coronal reformations. Axial CT scan of the cervical spine with sagittal and coronal reformations. Auto Exposure Controls were utilized during the CT exam to meet ALARA standards for radiation dose reduction. COMPARISON: Head CT without contrast dated 04/24/2018. FINDINGS: Head and maxillofacial CT: There is no evidence of acute cerebral infarct, intracranial hemorrhage, or gross mass effect. The brain parenchymal volume appears appropriate for patient's age. There is mild chronic small vessel ischemic disease. There is normal curtis-white matter distinction. There is no significant midline shift or herniation. There is no evidence of hydrocephalus. The basal cisterns are unremarkable. There is extracranial soft tissue swelling involving the right periorbital and right malar region. All of the swelling is preseptal. There is no skull or maxillofacial fracture. Otherwise, the skull, extracranial soft tissue, and orbits are unremarkable. There is minimal mucosal thickening involving the right maxillary sinus. Temporal bones show no significant abnormality. Cervical spine: There is no acute cervical spine fracture. There is degenerative grade 1 anterolisthesis of C2 on C3, T1 on T2, and T2 on T3. There are cervical spine vertebral body spurs and facet arthropathy. There is no significant neck soft tissue abnormality. There is bilateral apical pleural-parenchymal thickening/scarring. IMPRESSION: 1: There is no evidence of acute intracranial process. There is no intracranial hemorrhage. 2: There is extracranial soft tissue swelling involving the right periorbital and right malar region. There is no skull or maxillofacial fracture. 3: There is cervical spine degenerative disease with no acute fracture. Dictated by: Dictated on workstation # [id number]
--- NOTE | 2022-08-02 16:45 | Diagnostic Imaging Report ---
HISTORY: Fall, right shoulder and rib pain. TECHNIQUE: Frontal view of the chest. Frontal and oblique views of the left ribs. COMPARISON: 04/14/2022. FINDINGS: Lung volumes are normal. There is mild cardiomegaly. There is no pleural effusion or pneumothorax. No consolidation is seen. There is a displaced comminuted fracture of the right humeral neck. IMPRESSION: 1. No displaced right rib fracture is seen. No acute pulmonary abnormality. 2. Stable cardiomegaly. 3. Mildly displaced proximal right humerus fracture. Please refer to dedicated shoulder radiographs. Dictated by: Dictated on workstation # [id number]
[2022-08-02] MEDS ORDERED: ONDANSETRON 4 MG/2 ML (SDV) Z0FRAN IVP ONE (18:00)
[2022-08-02] MEDS ORDERED: ONDA4TAB11 PO (18:05)
[2022-08-02] MEDS ORDERED: OXYC1TAB11 PO (18:05)
[2022-08-02 19:00] VITALS: BP 156/98
[2022-08-02] MEDS ORDERED: RX-OXYCODONE/APAP 5-325 MG #4 TAB PK PO ONE (20:24)
== END 2022-08-02 20:46 | disposition home or self-care (01) ==
LOC: EDUNIT# 15:38 → ER 15:41
DX: S42.291A Other displaced fracture of upper end of right humerus, initial encounter for closed fracture (principal); S00.83XA Contusion of other part of head, initial encounter; W18.30XA Fall on same level, unspecified, initial encounter
CPT/HCPCS: 70450; 70486; 71101; 72125; 73030

== ENCOUNTER → 2022-08-08 | Outpatient (CLI) | payer MEDICARE, OTHER ==
[~2022-08-08] MED LIST changes: +ONDA4TAB11 PO; +OXYC1TAB11 PO
--- NOTE | 2022-08-08 14:29 | Diagnostic Imaging Report ---
Indication: Right shoulder pain COMPARISON: 08/02/2022 TECHNIQUE: 2 radiographs of the right shoulder dated 08/08/2022. FINDINGS: Previously noted right humeral neck fracture is again identified. Mild impaction and minimal anterior displacement is again identified with impaction appearing slightly worsened since the prior examination. No significant periosteal reaction. No new fracture or dislocation. No destructive osseous process. Mild degenerative changes of the acromioclavicular joint. No suspicious radiopaque foreign body. IMPRESSION: Previously noted right humeral neck fracture demonstrates slightly increased impaction when compared to the prior examination. No new fracture or dislocation. Dictated by: Dictated on workstation # [id number]
== END ==
LOC: ORTHO 10:55
PROVIDERS: ATTEND Orthopaedic Surgery
DX: S42.291A Other displaced fracture of upper end of right humerus, initial encounter for closed fracture (principal); X58.XXXA Exposure to other specified factors, initial encounter
CPT/HCPCS: 73030; G0463; 99203

== ENCOUNTER 2022-08-14 08:19 | Emergency (ER) | payer MEDICARE, OTHER ==
[~2022-08-14] VITALS: Ht 177 cm; Wt 79.4 kg
--- NOTE | 2022-08-14 08:35 | ED Trauma-Multisystem ---
General Chief Complaint: Trauma-Non Activation Stated Complaint: FALL | HEAD LACERATION Source of Information: Patient, EMS Exam Limitations: No Limitations History of Present Illness Date Seen by Provider: Aug 14, 2022 Time Seen by Provider: 08:23 Initial Comments Lucille is an 82-year-old female who arrives to the emergency department [facility] after a fall this morning. Patient was getting up to go from her chair into the bathroom, she states she had ambulated about 6 feet, she is unsure of the mechanism but found herself on a tile floor. She went face first. She is on anticoagulation, Xarelto most likely for A. fib. She has had a recent fall within the last couple of weeks on July 28 in which she fractured her right humerus. Currently wearing a sling. She denies loss of consciousness. She did "see stars". Sustained a laceration above the right eyebrow and subsequent development of a large periorbital ecchymosis and hematoma over the right zygoma. Denies nausea currently. Is complaining of some right rib pain she states as a result from the fall earlier in the month. She is not short of breath. No abdominal pain. No pelvic/hip pain. No lower extremity pain. Her right scapula is causing some discomfort. She is wearing a sling to the right upper extremity. Notable ecchymosis and swelling to the entirety of the right arm. GCS 15. Stable vitals. All other review of systems reviewed and negative except as stated. Occurred: Just Prior to Arrival Severity: Moderate Pain/Injury Location: Face Method of Injury: Fall Loss of Consciousness: No Loss of Consciousness Associated Symptoms (Fall): Vision Changes Allergies and Home Medications Allergies Coded Allergies: apixaban (Verified Allergy, Unknown, Rash, 03/21/21) Patient Home Medication List Home Medication List Reviewed: Yes Budesonide/Glycopyr/Formoterol (Breztri Aerosphere Inhaler) 160 Mcg-9 Mcg-4.8 Mcg/Actuation Hfa.aer.ad, 10.7 GM IH BID, (Reported) Entered as Reported by: Nanci Carson on 05/03/22 0907 Cholecalciferol (Vitamin D3) (Vitamin D3) Unknown Strength Capsule, 1 TAB PO DAILY, (Reported) Entered as Reported by: GRAHAM ZAPATA on 03/21/21 1252 Cyanocobalamin (Vitamin B-12) (B-12) 1,000 Mcg Tablet, 1,000 MCG PO DAILY, (Reported) Entered as Reported by: GRAHAM ZAPATA on 03/21/21 125 Diltiazem HCl (Diltiazem HCl) 120 Mg Tablet, 120 MG PO BID, (Reported) Entered as Reported by: Nanci Carson on 05/03/22 09 Levothyroxine Sodium (Levothyroxine Sodium) 88 Mcg Tablet, 88 MG PO DAILY, (Reported) Entered as Reported by: GRAHAM ZAPATA on 03/21/21 125 Metoprolol Succinate (Metoprolol Succinate) 50 Mg Tab.er.24h, 25 MG PO BID, (Reported) Entered as Reported by: GRAHAM ZAPATA on 03/21/21 125 Ondansetron (Ondansetron Odt) 4 Mg Tab.rapdis, 4 MG PO Q6H PRN for NAUSEA/VOMITING Prescribed by: FER FLOYD on 08/02/22 180 Oxycodone HCl/Acetaminophen (Oxycodone-Acetaminophen 5-325) 5 Mg-325 Mg Tablet, 1 EACH PO Q4H PRN for PAIN-MODERATE Prescribed by: FER FLOYD on 08/02/22 180 Pantoprazole Sodium (Pantoprazole Sodium) 40 Mg Tablet.dr, 40 MG PO DAILY, (Reported) Entered as Reported by: GRAHAM ZAPATA on 03/21/21 125 Rivaroxaban (Xarelto) 20 Mg Tablet, 20 MG PO DAILY, (Reported) Entered as Reported by: Nanci Carson on 05/03/22 09 Simvastatin (Simvastatin) 20 Mg Tablet, 20 MG PO DAILY, (Reported) Entered as Reported by: GRAHAM ZAPATA on 03/21/21 1252 Ubidecarenone (Coq-10) 100 Mg Capsule, 100 MG PO DAILY, (Reported) Entered as Reported by: GRAHAM ZAPATA on 03/21/21 125 Venlafaxine HCl (Venlafaxine HCl) 37.5 Mg Tab, 37.5 MG PO DAILY, (Reported) Entered as Reported by: Nanci Carson on 05/03/22 09 Review of Systems Review of Systems Constitutional: see HPI Eyes: Decreased Acuity (due to right eye swelling) Ears: No Symptoms Reported Nose: No Symptoms Reported Mouth: No Symptoms Reported Throat: No Symptoms to Report Cardiovascular: No Symptoms Reported Gastrointestinal: no symptoms reported Genitourinary: no symptoms reported Musculoskeletal: other (right shoulder blade; right humerus) Skin: other (laceration, swelling and bruising) All Other Systems Reviewed Negative Unless Noted: Yes Past Dtdvsez-Glfhtq-Tvwgoe Hx Seasonal Allergies Seasonal Allergies: Yes Past Medical History Surgery/Hospitalization HX: AFIB Surgeries: Yes (HSYT/BSO; CYSTOCOELE) Eye Surgery, Hysterectomy, Orthopedic Respiratory: Yes Pneumonia Currently Using CPAP: Yes Currently Using BIPAP: No Cardiac: Yes Atrial Fibrillation, Irregular Heartbeat Neurological: No Vertigo 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 oz. 81.501833lr; 2747.00 BMI Method:Stated General Appearance: No Apparent Distress, WD/WN Head: Swelling, Tenderness (right orbit and zygoma, extensive swelling, hematoma formation with laceration 1.5" above right eyebrow) Eyes: Right Eye Bleeding (conjunctival hematoma superior aspect of globe with associated subconjuctival hemoorhage; pupil 2mm; difficult to assess EOM due to the amount of swelling of the right periorbital region) Neck: Full Range of Motion, Normal Inspection, Non Tender (no midline tenderness) Cardiovascular: Normal Peripheral Pulses (right wrist radial pulse slightly less prominent due to RUE edema from recent humerus fracture), Irregularly Irregular Respiratory: Lungs Clear, Normal Breath Sounds, No Accessory Muscle Use, No Respiratory Distress Gastrointestinal: Non Tender, Soft Extremity: Swelling (swelling and ecchymoses to the RUE; good ROM of the hand/fingers (edema 3+ pitting); LUE - normal) Neurologic/Psychiatric: Alert, Oriented x3, No Motor/Sensory Deficits, Depressed Affect Skin: Normal Color, Warm/Dry [place] Coma Score Best Eye Response ([place]): (4) Open Spontaneously Best Verbal Response ([place]): (5) Oriented Best Motor Response ([place]): (6) Obeys Commands [place] Total: 15 Procedures/Interventions Wound Location: Face Other Wound Location right brow Wound Length (cm): 2.5 Wound's Depth, Shape: superficial, into muscle, linear Wound Explored: clean Irrigated w/ Saline (ccs): 100 Anesthesia: 0.5% Sensorcaine Volume Anesthetic (ccs): 3 Suture: Ethlion (5-0), Monocryl (4-0) Number of Sutures: 8 Layer Closure?: 2 Number Deep Layer Sutures: 2 Sterile Dressing Applied?: Yes Progress/Results/Core Measures Results/Orders Lab Results Laboratory Tests Test 08/14/22 08:40 Range/Units White Blood Count 8.9 4.3-11.0 10^3/uL Red Blood Count 4.02 3.80-5.11 10^6/uL Hemoglobin 11.0 L 11.5-16.0 g/dL Hematocrit 34 L 35-52 % Mean Corpuscular Volume 86 80-99 fL Mean Corpuscular Hemoglobin 27 25-34 pg Mean Corpuscular Hemoglobin Concent 32 32-36 g/dL Red Cell Distribution Width 15.3 H 10.0-14.5 % Platelet Count 293 130-400 10^3/uL Mean Platelet Volume 10.5 9.0-12.2 fL Immature Granulocyte % (Auto) 1 % Neutrophils (%) (Auto) 72 42-75 % Lymphocytes (%) (Auto) 14 12-44 % Monocytes (%) (Auto) 11 0-12 % Eosinophils (%) (Auto) 2 0-10 % Basophils (%) (Auto) 1 0-10 % Neutrophils # (Auto) 6.4 1.8-7.8 10^3/uL Lymphocytes # (Auto) 1.2 1.0-4.0 10^3/uL Monocytes # (Auto) 1.0 0.0-1.0 10^3/uL Eosinophils # (Auto) 0.2 0.0-0.3 10^3/uL Basophils # (Auto) 0.1 0.0-0.1 10^3/uL Immature Granulocyte # (Auto) 0.1 0.0-0.1 10^3/uL Percent Immature Platelet Fraction 3.2 0.0-7.6 % Sodium Level 138 135-145 MMOL/L Potassium Level 3.5 L 3.6-5.0 MMOL/L Chloride Level 100 98-107 MMOL/L Carbon Dioxide Level 25 21-32 MMOL/L Anion Gap 13 5-14 MMOL/L Blood Urea Nitrogen 14 7-18 MG/DL Creatinine 0.68 0.60-1.30 MG/DL Estimat Glomerular Filtration Rate 86 BUN/Creatinine Ratio 21 Glucose Level 112 H 70-105 MG/DL Calcium Level 9.3 8.5-10.1 MG/DL Corrected Calcium 9.5 8.5-10.1 MG/DL Total Bilirubin 1.7 H 0.1-1.0 MG/DL Aspartate Amino Transf (AST/SGOT) 34 5-34 U/L Alanine Aminotransferase (ALT/SGPT) 36 0-55 U/L Alkaline Phosphatase 119 40-136 U/L Total Protein 7.5 6.4-8.2 GM/DL Albumin 3.7 3.2-4.5 GM/DL Smear Scan YES My Orders Orders - DIAMOND BLANKENSHIP MD Ed Iv/Invasive Line Start (08/14/22 08:27) Ct Head/Face/Cervical Wo (08/14/22 08:27) Fentanyl Inj (Sublimaze Injection) (08/14/22 09:15) Shoulder, Right, 3 Views (08/14/22 10:33) Humerus, Right, 2 Views (08/14/22 10:33) Cbc With Automated Diff (08/14/22 11:25) Comprehensive Metabolic Panel (08/14/22 11:25) Ua Culture If Indicated (08/14/22 11:25) Fentanyl Inj (Sublimaze Injection) (08/14/22 11:30) Oxycodone/Apap 5/325mg Tablet (Percocet (08/14/22 11:30) Medications Given in ED Current Medications Medications Dose Ordered Sig/Morenita Route Start Time Stop Time Status Last Admin Dose Admin Fentanyl Citrate 50 mcg ONCE ONCE IVP 08/14/22 09:15 08/14/22 09:16 DC 08/14/22 09:17 50 MCG Fentanyl Citrate 50 mcg ONCE ONCE IVP 08/14/22 11:30 08/14/22 11:31 DC 08/14/22 11:35 50 MCG Oxycodone/ Acetaminophen 1 tab ONCE ONCE PO 08/14/22 11:30 08/14/22 11:31 DC 08/14/22 11:35 1 TAB Vital Signs/I&O 08/14/22 08/14/22 08:23 09:17 Temp 36.8 36.8 Pulse 85 Resp 18 B/P (MAP) 124/88 (100) Pulse Ox 95 O2 Delivery Room Air Progress Progress Note : Time: 12:02 Progress Note Patient seen and evaluated, 82-year-old with a mechanical trip and fall at assisted living early this morning. Sustained significant traumatic hematoma to the right face. She is chronically anticoagulated on Xarelto. She is having frequent falls with balance and coordination issues. Family is visiting from [place] and are present for additional history. She did admit herself to assisted living after her most recent fall which was resulted in her right shoulder fracture. Evaluation today initially involved CT head, facial bones and cervical spine without contrast. No acute intracranial pathology was found, no facial fractures and no cervical spine fractures. Subsequent to that I performed a right humerus and shoulder x-ray which showed a little bit of displacement of the head of the humerus at the fracture site. Patient remains neurovascularly intact to the right upper extremity with significant swelling, edema and ecchymosis. In discussion with the family it was thought that the patient would be unsafe to go back to assisted living. She is not really interested in going back to assisted living. Family ultimately would like her placed in a jail however we talked about acute admission to the rehab unit here at [facility]. I discussed the case with Dr. Arroyo who agrees that this might be a good placement for the patient. She was assessed by Dr. Arroyo's nurse, December and the patient has been accepted to ARU. Basic laboratory studies were obtained at the direction of Dr. Arroyo. These ar e reviewed and are generally within normal limits. She has not provided a urine specimen as of yet. Patient did receive 2 doses of 50 mcg of fentanyl here in the emergency department. I also gave her 1 Percocet 5 mg. Stable vital signs. Following commands however somewhat sleepy due to her pain medications. Ice pack on the face. Patient will be discharged from the emergency room and admitted to ARU. Diagnostic Imaging Diagonstic Imaging: CT Comments [facility], [place] NAME: LUCILLE EASTON [facility] REC#: [id number] PT STATUS: REG ER : 1940 PHYSICIAN: DIAMOND BLANKENSHIP MD ADMIT DATE: 08/14/22/ER Draft Date of Exam:08/14/22 CT HEAD/FACE/CERVICAL WO PROCEDURE: CT head, face, and cervical spine without contrast. TECHNIQUE: Multiple contiguous axial images were obtained through the head, neck, and facial bones without the use of intravenous contrast. Sagittal and coronal reformations through the cervical spine and facial bones were also performed. Auto Exposure Controls were utilized during the CT exam to meet ALARA standards for radiation dose reduction. INDICATION: Fall with head, face, and neck injury. Patient has right eye swelling. COMPARISON: Prior CT from 08/02/2022. FINDINGS: CT HEAD: There is soft tissue swelling in the right facial tissues with a probable hematoma measuring 3.2 x 1.4 cm. There is right periorbital soft tissue swelling as well. The ventricles and sulci are appropriate for the patient's age. No sulcal effacement or midline shift is identified. No acute intra-axial or extra-axial hemorrhage is detected. The cisterns are patent. The visualized paranasal sinuses are clear. IMPRESSION: Right facial and right periorbital soft tissue swelling with a probable right facial hematoma in the premaxillary location. No acute intracranial process is detected. CT CERVICAL SPINE: There is minimal anterolisthesis of C2 on C3. Severe multilevel degenerative disc disease is noted with significant disc space narrowing and marginal spurring at all levels. There is multilevel facet arthropathy as well. The prevertebral tissues are normal. No fractures are seen. The odontoid is intact. IMPRESSION: Cervical spondylosis. No acute bony abnormality is detected. CT FACE: The mandible is intact. The zygomatic arches are intact. The maxillary sinus bagley, nasal bones, and orbital bagley are intact. The paranasal sinuses are clear. There is significant soft tissue swelling in the right periorbital as well as right premaxillary tissues. There appears to be a hematoma in the right premaxillary location measuring approximately 3.3 x 1.4 cm. IMPRESSION: Right facial swelling and hematoma. No facial bone fracture is detected. Dictated on workstation # [id number] Dict: 08/14/22 0942 Trans: 08/14/22 0957 [id number] Interpreted by: DANE RICHMOND MD Electronically signed by: Departure Impression Primary Impression: Closed head injury Qualified Codes: S09.90XA - Unspecified injury of head, initial encounter Additional Impressions: Traumatic hematoma of face Qualified Codes: S00.83XA - Contusion of other part of head, initial encounter Laceration of face Qualified Codes: S01.81XA - Laceration without foreign body of other part of head, initial encounter Chronic anticoagulation Disposition: 01 HOME, SELF-CARE Condition: Stable Departure-Patient Inst. Decision time for Depature: 10:32 Referrals: NARCISO TORRE DO (PCP/Family) Primary Care Physician Patient Instructions: Laceration Repair With Stitches ED, Closed Head Injury (DC) Add. Discharge Instructions: Keep the wound clean dry and covered for the first 2 to [address] a little triple antibiotic ointment over the sutures twice a day for the first 2 or 3 days. The stitches will come out in 6 days. Come back to the emergency department as it is a part of this visit to have stitches removed. She needs to be monitored for change in mental status, increasing confusion, vomiting, severe headache. If any of these occur please have her come back to the emergency department for emergent reevaluation. She will need follow-up with her primary care physician for further evaluation of her balance issues. Images Head/Face 1 - Laceration 2 - Severe, Ecchymosis, Edema, Swelling, Tenderness Copy Copies To 1: NARCISO TORRE KATHRYN M MD Aug 14, 2022 08:35
[2022-08-14] MEDS ORDERED: fentaNYL INJ 100 MCG/2 ML AMP IVP ONE ×2 (09:15→11:30)
--- NOTE | 2022-08-14 09:58 | Diagnostic Imaging Report ---
PROCEDURE: CT head, face, and cervical spine without contrast. TECHNIQUE: Multiple contiguous axial images were obtained through the head, neck, and facial bones without the use of intravenous contrast. Sagittal and coronal reformations through the cervical spine and facial bones were also performed. Auto Exposure Controls were utilized during the CT exam to meet ALARA standards for radiation dose reduction. INDICATION: Fall with head, face, and neck injury. Patient has right eye swelling. COMPARISON: Prior CT from 08/02/2022. FINDINGS: CT HEAD: There is soft tissue swelling in the right facial tissues with a probable hematoma measuring 3.2 x 1.4 cm. There is right periorbital soft tissue swelling as well. The ventricles and sulci are appropriate for the patient's age. No sulcal effacement or midline shift is identified. No acute intra-axial or extra-axial hemorrhage is detected. The cisterns are patent. The visualized paranasal sinuses are clear. IMPRESSION: Right facial and right periorbital soft tissue swelling with a probable right facial hematoma in the premaxillary location. No acute intracranial process is detected. CT CERVICAL SPINE: There is minimal anterolisthesis of C2 on C3. Severe multilevel degenerative disc disease is noted with significant disc space narrowing and marginal spurring at all levels. There is multilevel facet arthropathy as well. The prevertebral tissues are normal. No fractures are seen. The odontoid is intact. IMPRESSION: Cervical spondylosis. No acute bony abnormality is detected. CT FACE: The mandible is intact. The zygomatic arches are intact. The maxillary sinus bagley, nasal bones, and orbital bagley are intact. The paranasal sinuses are clear. There is significant soft tissue swelling in the right periorbital as well as right premaxillary tissues. There appears to be a hematoma in the right premaxillary location measuring approximately 3.3 x 1.4 cm. IMPRESSION: Right facial swelling and hematoma. No facial bone fracture is detected. Dictated by: Dictated on workstation # [id number]
--- NOTE | 2022-08-14 11:17 | Diagnostic Imaging Report ---
INDICATION: Fracture. COMPARISON: 08/02/2022. FINDINGS: There has been some new bone formation associated with the known right proximal humeral fracture. The distal fragment shows medial displacement, unchanged from the prior exam. No dislocation. There is some increased widening of the glenohumeral joint which may reflect progressive effusion and/or hemarthrosis. No ekaterina dislocation, however. IMPRESSION: Unchanged alignment of the proximal humeral fracture. Increased glenohumeral joint space widening and likely increased joint fluid. Some new bone formation has been laid down, consistent with at least some degree of early healing. Dictated by: Dictated on workstation # [id number]
--- NOTE | 2022-08-14 11:25 | Diagnostic Imaging Report ---
INDICATION: Fall with shoulder pain. EXAMINATION: Right humerus, 2 views. FINDINGS: There is a humeral neck fracture without significant displacement. The head remains in good alignment with the glenoid. The AC joint shows good alignment with mild hypertrophic arthropathy. IMPRESSION: Humeral neck fracture without significant displacement or dislocation. Dictated by: Dictated on workstation # [id number]
[2022-08-14] MEDS ORDERED: oxyCODONE/APAP 5/325MG (PERCOCET 5) TABLET PO ONE (11:30)
[2022-08-14 11:36] LABS: ALBUMIN 3.7 GM/DL (3.2-4.5); POTASSIUM 3.5 MMOL/L (3.6-5.0)
[2022-08-14 11:37] LABS: CALCIUM 9.3 MG/DL (8.5-10.1)
[2022-08-14 11:38] LABS: TOTAL PROTEIN 7.5 GM/DL (6.4-8.2)
[2022-08-14 11:40] LABS: BILIRUBIN,TOTAL 1.7 MG/DL (0.1-1.0); HEMATOCRIT 34 % (35-52)
[2022-08-14 11:42] LABS: BASOPHILS # (AUTO) 0.1 10^3/uL (0.0-0.1); BASOPHILS % (AUTO) 1 % (0-10); CREATININE SERUM 0.68 MG/DL (0.60-1.30); EOSINOPHILS # (AUTO) 0.2 10^3/uL (0.0-0.3); EOSINOPHILS % (AUTO) 2 % (0-10); LYMPHOCYTES # (AUTO) 1.2 10^3/uL (1.0-4.0); LYMPHOCYTES % (AUTO) 14 % (12-44); MEAN CORPUSCULAR HEMOGLOBIN 27 pg (25-34); MEAN CORPUSCULAR HGB CONC 32 g/dL (32-36); MEAN CORPUSCULAR VOLUME 86 fL (80-99); MEAN PLATELET VOLUME 10.5 fL (9.0-12.2); MONOCYTES % (AUTO) 11 % (0-12); NEUTROPHILS # (AUTO) 6.4 10^3/uL (1.8-7.8); NEUTROPHILS % (AUTO) 72 % (42-75); PLATELET COUNT 293 10^3/uL (130-400); WHITE BLOOD COUNT 8.9 10^3/uL (4.3-11.0)
[2022-08-14 11:49] LABS: SMEAR SCAN COMMENT YES
--- NOTE | 2022-08-14 11:50 | Diagnostic Imaging Report ---
INDICATION: Fall earlier today with wrist pain. TECHNIQUE: 3 views of the right wrist CORRELATION STUDY: None FINDINGS: Severely advanced degenerative changes of the 1st carpometacarpal articulation. This includes a volume loss of the trapezium and trapezoid subcortical sclerosis and osteophyte formation. Radial subluxation of the 1st metacarpals also present. There is advanced uterine change of the 1st metacarpophalangeal joint as well which also includes joint space narrowing and osteophyte formation. No acute fracture or dislocation. IMPRESSION: 1. Negative for acute bony abnormality right wrist. Severely advanced degenerative changes of the base of the thumb Dictated by: Dictated on workstation # [id number]
[2022-08-14 12:10] VITALS: BP 149/94
[2022-08-14 12:50] LABS: BILIRUBIN,URINE NEGATIVE (NEGATIVE); CLARITY,URINE CLEAR; COLOR,URINE YELLOW; GLUCOSE, URINE (UA) NEGATIVE (NEGATIVE); KETONES,URINE 1+ (NEGATIVE); LEUKOCYTE ESTERASE ,URINE NEGATIVE (NEGATIVE); NITRITE,URINE NEGATIVE (NEGATIVE); PH,URINE 7.5 (5-9); PROTEIN,URINE NEGATIVE (NEGATIVE)
[2022-08-14 12:59] LABS: AMORPHOUS SEDIMENT,UR MOD AMOR PHOSPHATE /LPF; BACTERIA,URINE TRACE /HPF; RBC,URINE 0-2 /HPF; SQUAMOUS EPITHELIAL CELL,UR 0-2 /HPF; WBC,URINE 0-2 /HPF
[2022-08-14] MEDS ORDERED: MONT-40 PO (15:43)
[2022-08-14] MEDS ORDERED: FISH1CAP15 PO (15:43)
[2022-08-14] MEDS ORDERED: VENL75CA93 PO (15:43)
[2022-08-14] MEDS ORDERED: DILT-27 PO (15:43)
[2022-08-14] MEDS ORDERED: OXYC1TAB11 PO (15:45)
[2022-08-14] MEDS ORDERED: TRAM50TA3 PO (15:45)
== END 2022-08-14 13:20 | disposition home or self-care (01) ==
LOC: EDUNIT# 08:19 → ER 08:20
DX: S09.90XA Unspecified injury of head, initial encounter (principal); S42.91XA Fracture of right shoulder girdle, part unspecified, initial encounter for closed fracture; S01.111A Laceration without foreign body of right eyelid and periocular area, initial encounter; I48.91 Unspecified atrial fibrillation; R40.2362 Coma scale, best motor response, obeys commands, at arrival to emergency department; R40.2252 Coma scale, best verbal response, oriented, at arrival to emergency department; R40.2142 Coma scale, eyes open, spontaneous, at arrival to emergency department; Z79.01 Long term (current) use of anticoagulants; W01.0XXA Fall on same level from slipping, tripping and stumbling without subsequent striking against object, initial encounter
CPT/HCPCS: 36415; 70450; 70486; 72125; 73030; 73060; 73110; 80053; 81000; 85025

== ENCOUNTER 2022-08-14 12:14 | Inpatient (IN) | payer MEDICARE, OTHER ==
[~2022-08-14] VITALS: Ht 175.3 cm; Wt 81.3 kg
--- NOTE | 2022-08-14 12:51 | PM&R Post Admission Assessment ---
PM&R HP Date of Visit: Aug 14, 2022 Time of Visit: 18:00 History of Present Illness Chief complaint: Fall with multiple injuries HPI: See below CC: Closed head injury HPI: Lucille Bar is an 82 yo female admitted from the ED following a fall with closed head injury. The patient reports she was in her bathroom this morning when she fell face-first on the tiled floor, striking her head in the process. She states she does not recall how or why she fell, but she denies any syncope. She has since had significant facial swelling; the patient is on Xarelto. The patient endorses right shoulder pain, but this is secondary to a separate recent fall that required surgical repair of her right humerus. She denies any worse pain or new pain, including any facial pain or headache. The patient and her elfuvodo-[id number]-aum admit that she has worsening balance over the past couple of years, but they deny any dizziness or frequent falls. The patient remarks she was completely independent of her ADLs prior to recent falls and her injuries to her right shoulder and face. The patient notes she recently moved into an assisted living 5 days ago in order to best recover from her right shoulder injury. The patient had multiple images and labs obtained in the ED. CT Head showed right facial and periorbital soft tissue swelling with a probable right facial hematoma in the premaxillary location; no acute intracranial process was detected. CT Cervical Spine showed only cervical spondylosis with no bony abnormality. CT Face showed right facial swelling and hematoma without bone fracture. Labs revealed PT 13.3, INR 1.0, aPTT 28, HGB 11, HCT 34, K 3.5, Glucose 112, Total Bili 1.7, HDL 64, Urine Ketones 1+, Urine Crystals Present, Urine Amorphous Sediment Moderate; patient is COVID negative. Patient was with stable vital signs at time of admission. PMH: Atrial fibrillation, HTN, HLD, Hypothyroidism, GERD, Reactive airway disease PSH: Panhysterectomy, Cystocele repair, Right TKA Allergies: Eliquis Home Medications: Budesonide, Vitamin D3, Vitamin B12, Diltiazem, Levothyroxine, Metoprolo, Ondansetron, Oxycodone-acetaminophen, Pantoprazole, Xarelto, Simvastatin, CoQ-10, Venlafaxine SH: Nonsmoker. Drinks alcohol socially around 1/week (stopped after initial fall injuring right shoulder). No recreational drug use. FH: Father: lung cancer, Mother: HTN, in MVC Brother: HTN, in MVC Sister: Mastectomy, trigeminal neuralgia, brain surgery x5 ROS: As in HPI. Denies any fever, cough, SOB, abdominal pain, urinary symptoms, headache, dizziness, lightheadedness, facial pain, syncope. Positive for facial swelling, RUE swelling and tenderness. Exam: Constitutional: Elderly white female seated reclined in the gurney. Pleasant and cooperative. Hard of hearing in the left ear. Head: Right temporal region and periorbital region with significant swelling. Moderate tenderness to palpation of the right temporal region. Cardiovascular: RRR. No murmur. Pulmonary: LCTAB. No wheezes, crackles, rales, rhonchi. Neuro: Alert & oriented x3. Unable to view right pupil secondary to swelli ng. Left eye with EOMI, PERRLA. A/P: 1. Closed head injury: Negative for intracranial injury on CT. Continue monitoring for neurological symptoms and observe facial swelling. 2. Difficulty balancing/ambulating: PT/OT.3 3. Anticoagulated status secondary to afib: Continue monitoring facial swelling for sign of acute bleed. Discontinue Xarelto until facial swelling has subsided and patient has improved balance and gait. 4. HTN, HLD, Hypothyroidism, GERD, Reactive airway disease: Continue treating on home meds. 5. Hypokalemia: K of 3.5. Start on oral potassium replacement. Recheck CMP in 1- 2 days. 6. Anemia: HGB of 11, HCT of 34. Continue monitoring and recheck HGB, HCT. 7. Elevated bilirubin: Bilirubin of 1.7. Continue monitoring for jaundice or liver dysfunction and recheck CMP. 8. UA Abnormalities: Ketones 1+, Crystals Present, Amorphous Sediment Moderate. Likely due to dehydration. Push fluids and possible recheck. ALYSSA JACKSON Past Crlwnkk-Wskdmq-Euqukv Hx Past Med/Social Hx: Reviewed Nursing Past Med/Soc Hx, Reviewed and Corrections made Patient Social History Marrital Status: single Employed/Student: retired Alcohol Use: Denies Use Alcohol Beverage of Choice: Wine Smoking Status: Never a Smoker Recent Hopitalizations: No Seasonal Allergies Seasonal Allergies: Yes Past Medical History Surgeries: Eye Surgery, Hysterectomy, Orthopedic Currently Using CPAP: Yes Currently Using BIPAP: No Cardiac: Atrial Fibrillation, Irregular Heartbeat Neurological: Vertigo Hysterectomy, Menopausal Gastrointestinal: Gastroesophageal Reflux Endocrine: Hypothyroidsim Cancer: Skin History of Blood Disorders: No PM&R Allergy/Meds/Data Review Allergies Coded Allergies: apixaban (Verified Allergy, Unknown, Rash, 03/21/21) Home Medications Scheduled Cholecalciferol (Vitamin D3) (Vitamin D3), 25 MCG PO DAILY, (Reported) Cyanocobalamin (Vitamin B-12) (B-12), 1,000 MCG PO DAILY, (Reported) Diltiazem HCl (Diltiazem 24Hr ER), 120 MG PO BID, (Reported) Fish Oil/Dha/Epa (Fish Oil 1,200 mg Fish Oil), 1 EACH PO DAILY, (Reported) Levothyroxine Sodium (Levothyroxine Sodium), 88 MG PO DAILY, (Reported) Metoprolol Succinate (Metoprolol Succinate), 50 MG PO BID, (Reported) Montelukast Sodium (Montelukast Sodium), 10 MG PO HS, (Reported) Pantoprazole Sodium (Pantoprazole Sodium), 40 MG PO DAILY, (Reported) Rivaroxaban (Xarelto), 20 MG PO DAILY, (Reported) Simvastatin (Simvastatin), 20 MG PO HS, (Reported) Ubidecarenone (Coq-10), 100 MG PO DAILY, (Reported) Venlafaxine HCl (Venlafaxine HCl ER), 75 MG PO DAILY, (Reported) Scheduled PRN Oxycodone HCl/Acetaminophen (Oxycodone-Acetaminophen 5-325), 1 EACH PO Q6H PRN for PAIN-MODERATE (5-7), (Reported) Tramadol HCl (Tramadol HCl), 50 MG PO QID PRN for PAIN-MODERATE (5-7), (Reported) Discontinued Medications Budesonide/Glycopyr/Formoterol (Breztri Aerosphere Inhaler), 10.7 GM IH BID, (Reported) Discontinued Reason: No Longer Taking Diltiazem HCl (Diltiazem HCl), 120 MG PO BID, (Reported) Discontinued Reason: No Longer Taking Ondansetron (Ondansetron Odt), 4 MG PO Q6H PRN for NAUSEA/VOMITING Discontinued Reason: No Longer Taking Oxycodone HCl/Acetaminophen (Oxycodone-Acetaminophen 5-325), 1 EACH PO Q4H PRN for PAIN-MODERATE Discontinued Reason: Duplicate Order Venlafaxine HCl (Venlafaxine HCl), 37.5 MG PO DAILY, (Reported) Discontinued Reason: No Longer Taking Current Medications Current Medications Reviewed Review of Systems Constitutional: see HPI, malaise, weakness EENTM: no symptoms reported Respiratory: no symptoms reported Cardiovascular: no symptoms reported Gastrointestinal: constipation Genitourinary: no symptoms reported Musculoskeletal: back pain, joint pain, muscle pain, muscle stiffness, muscle cramps, muscle twitching, muscle weakness, neck pain Skin: no symptoms reported Psychiatric/Neurological: Anxiety, Depressed All Other Systems Reviewed Negative Unless Noted: Yes Physical Exam Physical Exam Vital Signs Capillary Refill : Height, Weight, BMI Height: 5'10.00" Weight: 180lbs. oz. [id number]; 25.00 BMI Method:Stated General Appearance: No Apparent Distress, WD/WN, Chronically ill Eyes: Bilateral Eye Normal Inspection, Bilateral Eye PERRL HEENT: Pharynx Normal, Other (Right facial hematoma with edematous periorbital region) Neck: Full Range of Motion, Normal Inspection, Non Tender, Supple, Carotid Bruit Respiratory: Chest Non Tender, Lungs Clear, Normal Breath Sounds, No Accessory Muscle Use, No Respiratory Distress Cardiovascular: No Edema, No Gallop, No JVD, No Murmur, Normal Peripheral Pulses, Irregularly Irregular Gastrointestinal: Normal Bowel Sounds, No Organomegaly, No Pulsatile Mass, Non Tender, Soft Back: Normal Inspection, No CVA Tenderness, No Vertebral Tenderness Extremity: Normal Capillary Refill, Normal Inspection, Normal Range of Motion (Except right arm), Non Tender, No Calf Tenderness, No Pedal Edema Neurologic/Psychiatric: Alert, Oriented x3, Normal Mood/Affect, associate doctor II-XII Norm as Tested, Abnormal Gait, Motor Weakness (Right arm with sling) Skin: Normal Color, Warm/Dry Lymphatic: No Adenopathy PM&R Medical Assessment & Plan REHAB/MEDICAL ASSESSMENT AND PLAN: REHAB IMPAIRMENT GROUP: Multiple falls with right facial hematoma ETIOLOGIC DIAGNOSIS: Multiple falls with right facial hematoma The comorbidities that impact the patients function and/or functional outcome by: Multiple falls, advanced age, right humerus fracture and right-handed dominant person, AF REHAB PLAN: The patient is being admitted to our comprehensive inpatient rehabilitation facility and can tolerate the intensity of service consisting of at least: 180 minutes of therapy a day, 5 out of 7 days a week Rehab treatment will consist of: PT and OT will focus on regaining function with management of right arm in sling and focus on fall risk prevention in order to return back to independent living in assisted living The patient/family has a good understanding of our discharge process and will benefit from an interdisciplinary inpatient rehabilitation program. The patient has potential to make improvement and is in need of at least two of the following multidisciplinary therapies including but not limited to physical, occupational, speech, and prosthetics and orthotics. Additionally the patient will need services from respiratory, nutritional services, wound care, psychology, etc. (Customize this to each patient). Given the patients complex condition and risk of further medical complications, rehabilitation services cannot be safely or effectively provided at a lower level of care such as a senior care facility. BARRIERS TO DISCHARGE: Right humerus fracture ESTIMATED LOS: 10 days DISPOSITION: Assisted living RELEVANT CHANGES SINCE PREADMISSION SCREENING: I have compared the patients medical and functional status at the time of the preadmission screening and there are: No changes PROGNOSIS: Fair REHABILITATION GOALS: 1. PT and OT will focus on regaining function with management of right arm in sling and focus on fall risk prevention in order to return back to independent living in assisted living All the above goals were reviewed with the patient and he/she is in agreement. By signing this document, I acknowledge that I have personally performed a full physical examination on this patient within 24 hours of admission to this inpatient rehabilitation facility and have determined the patient to be able to tolerate the above course of treatment at an intensive level for a reasonable period of time. I will be completing a detailed individualized Plan of Care for this patient by day #4 of the patients stay based upon the Preadmission Screen, the Post-Admission Evaluation, and the therapy evaluations. Admission Dx/Comorbidities: (1) Traumatic hematoma of face Status: Acute ICD Codes: S00.83XA - Contusion of other part of head, initial encounter (2) Atrial fibrillation ICD Codes: I48.91 - Unspecified atrial fibrillation (3) Laceration of face Status: Acute ICD Codes: S01.81XA - Laceration without foreign body of other part of head, initial encounter (4) Chronic anticoagulation Status: Acute ICD Codes: Z79.01 - USP (current) use of anticoagulants (5) Closed head injury Status: Acute ICD Codes: S09.90XA - Unspecified injury of head, initial encounter (6) Closed right humeral fracture Status: Acute ICD Codes: S42.301A - Unspecified fracture of shaft of humerus, right arm, initial encounter for closed fracture (7) Contusion of face Status: Acute ICD Codes: S00.83XA - Contusion of other part of head, initial encounter (8) Fall on same level Status: Acute ICD Codes: W18.30XA - Fall on same level, unspecified, initial encounter Assessment/Plan Assessment and Plan Assess & Plan/Chief Complaint A/P: 1. Closed head injury: Negative for intracranial injury on CT. Continue monitoring for neurological symptoms and observe facial swelling. 2. Difficulty balancing/ambulating: PT/OT 3. Anticoagulated status secondary to afib: Continue monitoring facial swelling for sign of acute bleed. Hold Xarelto until facial swelling has subsided and patient has improved balance and gait since risk of bleeding outweighs the benefits of stroke prophylaxis right now 4. HTN Continue treating on home meds. 5. Hypokalemia: K of 3.5. Start on oral potassium replacement. Recheck CMP in 1- 2 days. 6. Anemia: HGB of 11, HCT of 34. Continue monitoring and recheck HGB, HCT. 7. Elevated bilirubin: Bilirubin of 1.7. Continue monitoring for jaundice or liver dysfunction and recheck CMP. 8. UA Abnormalities: Ketones 1+, Crystals Present, Amorphous Sediment Moderate. Likely due to dehydration. Push fluids and possible recheck. 9. HLD 10. Hypothyroidism 11. GERD 12. Reactive airway disease: Plan: Hold anticoagulation Aggressive rehab Pain control Supportive care Incentive spirometer POLI HARGROVE DO Aug 14, 2022 12:51
[2022-08-14] MEDS ORDERED: FLEET ENEMA ADULT 1 EA BTL PR PRN (13:00)
[2022-08-14] MEDS ORDERED: guaiFENesin/CODEINE (ROBITUSSIN AC) 10ML UDC PO PRN (13:00)
[2022-08-14] MEDS ORDERED: diphenhydrAMINE 25 MG TAB (BENADRYL) PO PRN (13:00)
[2022-08-14] MEDS ORDERED: BISACODYL 10 MG SUPP (DULCOLAX) PR PRN (13:00)
[2022-08-14] MEDS ORDERED: CALCIUM CARBONATE 500 MG (TUMS) TAB.CHEW PO PRN (13:00)
[2022-08-14] MEDS ORDERED: ONDANSETRON 4 MG (ZOFRAN) ORAL DISSOLVE TAB PO PRN (13:00)
[2022-08-14] MEDS ORDERED: LOPERAMIDE 2 MG (IMODIUM) TABLET PO PRN (13:00)
[2022-08-14] MEDS ORDERED: ALPRAZolam 0.25 MG (XANAX) TAB PO PRN (13:00)
[2022-08-14] MEDS ORDERED: DOCUSATE SODIUM 100 MG (COLACE) CAP PO PRN (13:00)
--- NOTE | 2022-08-14 13:48 | Occupational Therapy Eval ---
OT Evaluation-General/PLF Medical Diagnosis Admission Date Medical Diagnosis: debility Onset Date: Aug 14, 2022 Therapy Diagnosis Therapy Diagnosis: decreased ADL status Height/Weight Height (Feet): 5 Height (Inches): 10.00 Weight (Pounds): 180 Precautions Precautions/Isolations: Fall Prevention, Standard Precautions Weight Bear Status Weight Bearing Restriction: Non Weight Bearing Location Restriction: R UE NWB RUE unless further clarification obtained. Referral Physician: Dina Referral Reason: Evaluation/Treatment Social History Home: Single Level Current Living Status: Alone Entry Into Home: Stairs With Railing Steps Into Home: 4 Pt has a 2 story house, but only stays on the first level. ADL-Prior Level of Function SCALE: Activities may be completed with or without assistive devices. 7-[place] completes the activity by him/herself with no assistance from a helper. 5-Set-up or Clean-up Assistance-helper sets up or cleans up; patient completes activity. [place] assists only prior to or following the activity. 4-Supervision or Touching Assistance-helper provides verbal cues and/or touching/steadying and/or contact guard assistance as patient completes activity. Assistance may be provided throughout the activity or intermittently. 3-Partial/Moderate Assistance-helper does LESS THAN HALF the effort. [place] lifts, holds or supports trunk or limbs, but provides less than half the effort. 2-Substantial/Maximal Assistance-helper does MORE THAN HALF the effort. [place] lifts or holds trunk or limbs and provides more than half the effort. 0-[place]yt[place]ifoyh-nkh[place] does ALL the effort. Patient does none of the effort to complete the activity. Or, the assistance of 2 or more helpers is required for the patient to complete the activity. If activity was not attempted, code reason: 7-Patient Refused. 9-Not Applicable-not attempted and the patient did not perform the activity before the current illness, exacerbation or injury. 10-Not Attempted due to Environmental Limitations-(lack of equipment, weather restraints, etc.). 88-Not Attempted due to Medical Conditions or Safety Concerns. ADL PLOF Comments Pt reports only living at [facility] for the last 5 days, using a SPC, although daughter in law states pt mostly carried the walker along. Prior to that pt was living on her own, independent with all ADLS and functional mobility without AD. She was driving and very active. She has a walk in shower without a SC. She has required assistance with housework lately. Self Care: Independent Functional Cognition: Independent DME/Equipment: Shower Drive Self: Yes OT Current Status Subjective Pts son and daughter in law present during OT evaluation. They indicate they are seeing how pt progresses to determine if she needs to return to [facility] or go home alone. Pt rates pain 6/10 with movement in R shoulder. Pt unable to hear out of L ear Mental Status/Objective Patient Orientation: Person, Place, Time, Situation Attachments: Other-See Comments (Sling R arm) Current Glasses/Contacts: Yes Hearing Aids: Yes Dentures/Partials: No Hand Dominance: Right Upper Extremity ROM RUE shoulder not tested due to recent R humerus fx. PROM WFL at elbow, pt unable to perform AROM at elbow. WFL at wrist/hand. LUE WFL, shoulder flexion to approx 150 degrees Upper Extremity Coordination Decreased due to decreased ROM/pain RUE Upper Extremity Sensation WFL Upper Extremity Strength RUE not formally tested due to R humerus fx, poor gross grasp LUE approx 3/5, fair gross grasp ADL-Treatment Eating (QC): 5 Oral Hygiene (QC): 5 (set up seated at recliner) Shower/Bathe Self (QC): 3 (Min A with washing LUE) Upper Body Dressing (QC): 3 (Min A) Lower Body Dressing (QC): 3 (Min A with pant hike) On/Off Footwear (QC): 3 (Min A with donning L gripper sock) Toileting Hygiene (QC): 3 (Min A with pant hike) Other Treatments OT evaluation complete, pt participated in UE screen and BIMs/CAMs. Pt completed footwear seated in w/c.Post tx, pt left with [facility] for continued OT tx. Education OT Patient Education: Correct positioning, Energy conservation, Modified ADL techniques, Progress toward Goal/Update tx plan, Purpose of tx/functional activities, Rehab process Teaching Recipient: Patient Teaching Methods: Discussion Response to Teaching: Verbalize Understanding BIMS CAM BIMS Expression of Ideas and Wants: Without Difficulty Understanding Verbal Content: Understands Brief Interview/Mental Status: Yes IRF TITA BIMS: IRF TITA BIMS Response (Comments) Value Repitition of Three Words Three 3 Recalls Socks Yes, No Cue Required 2 Recalls Blue Yes, No Cue Required 2 Recalls Bed Yes, No Cue Required 2 Year Correct 3 Month Accurate Within 5 Days 2 Day Correct 1 Total [address] Mental [address] No CAM Mental Status Change/Baseline: 0 Inattention: 0 Disorganized thinkin Altered level of consciousness: 0 OT Short Term Goals Short Term Goals Time Frame: Aug 25, 2022 Shower/bathe self: 3 Lower body dressin OT [employer] Goals Mcc Goals Time Frame: Sep 15, 2022 Acute change in mental status: 0 Inattention: 0 Disorganized thinkin Altered level of consciousness: 0 Eating (QC): 6 Oral Hygiene (QC): 6 Toileting Hygiene (QC): 6 Shower/Bathe Self (QC): 6 Upper Body Dressing (QC): 6 Lower Body Dressing (QC): 6 On/Off Footwear (QC): 6 Additional Goals: 1-Demonstrate ADL Tasks, 2-Verbalize Understanding, 3- ImproveStrength/Jenae 1=Demonstrate adherence to instructed precautions during ADL tasks. 2=Patient will verbalize/demonstrate understanding of assistive devices/modifications for ADL. 3=Patient will improve strength/tolerance for activity to enable patient to perform ADL's. OT Education/Plan Problem List/Assessment Assessment: Decreased Activ Tolerance, Decreased UE Strength, Impaired Funct Balance, Impaired I ADL's, Impaired Self-Care Skills Discharge Recommendations Plan/Recommendations: Continue POC Equpiment Recommendations-D/C: Bath Chair Treatment Plan/Plan of Care Patient would benefit from OT for education, treatment and training to promote independence in ADL's, mobility, safety and/or upper extremity function for ADL's. Plan of Care: ADL Retraining, Functional Mobility, Group Exercise/Act as Ind, UE Funct Exercise/Act Treatment Duration: Sep 15, 2022 Frequency: At least 5 of 7 days/Wk (IRF) Estimated Hrs Per Day: 1.5 hours per day Agreement: Yes Rehab Potential: Fair Time Start Time: 13:15 Stop Time: 13:25 DATE: Aug 14, 2022 Total Time Billed (hr/min): 10 Billed Treatment Time 1, RUI DUCKWORTH OT Aug 14, 2022 13:48
--- NOTE | 2022-08-14 13:57 | Progress Note ---
ALYSSA JACKSON 08/14/22 1357: Progress Note CC: Closed head injury HPI: Lucille Bar is an 82 yo female admitted from the ED following a fall with closed head injury. The patient reports she was in her bathroom this morning when she fell face-first on the tiled floor, striking her head in the process. She states she does not recall how or why she fell, but she denies any syncope. She has since had significant facial swelling; the patient is on Xarelto. The patient endorses right shoulder pain, but this is secondary to a separate recent fall that required surgical repair of her right humerus. She denies any worse pain or new pain, including any facial pain or headache. The patient and her [id number] admit that she has worsening balance over the past couple of years, but they deny any dizziness or frequent falls. The patient remarks she was completely independent of her ADLs prior to recent falls and her injuries to her right shoulder and face. The patient notes she recently moved into an assisted living 5 days ago in order to best recover from her right shoulder injury. The patient had multiple images and labs obtained in the ED. CT Head showed right facial and periorbital soft tissue swelling with a probable right facial hematoma in the premaxillary location; no acute intracranial process was detected. CT Cervical Spine showed only cervical spondylosis with no bony abnormality. CT Face showed right facial swelling and hematoma without bone fracture. Labs revealed PT 13.3, INR 1.0, aPTT 28, HGB 11, HCT 34, K 3.5, Glucose 112, Total Bili 1.7, HDL 64, Urine Ketones 1+, Urine Crystals Present, Urine Amorphous Sediment Moderate; patient is COVID negative. Patient was with stable vital signs at time of admission. PMH: Atrial fibrillation, HTN, HLD, Hypothyroidism, GERD, Reactive airway disease PSH: Panhysterectomy, Cystocele repair, Right TKA Allergies: Eliquis Home Medications: Budesonide, Vitamin D3, Vitamin B12, Diltiazem, Levothyroxine, Metoprolo, Ondansetron, Oxycodone-acetaminophen, Pantoprazole, Xarelto, Simvastatin, CoQ-10, Venlafaxine SH: Nonsmoker. Drinks alcohol socially around 1/week (stopped after initial fall injuring right shoulder). No recreational drug use. FH: Father: lung cancer, Mother: HTN, in MVC Brother: HTN, in MVC Sister: Mastectomy, trigeminal neuralgia, brain surgery x5 ROS: As in HPI. Denies any fever, cough, SOB, abdominal pain, urinary symptoms, headache, dizziness, lightheadedness, facial pain, syncope. Positive for facial swelling, RUE swelling and tenderness. Exam: Constitutional: Elderly white female seated reclined in the gurney. Pleasant and cooperative. Hard of hearing in the left ear. Head: Right temporal region and periorbital region with significant swelling. Moderate tenderness to palpation of the right temporal region. Cardiovascular: RRR. No murmur. Pulmonary: LCTAB. No wheezes, crackles, rales, rhonchi. Neuro: Alert & oriented x3. Unable to view right pupil secondary to swelling. Left eye with EOMI, PERRLA. A/P: 1. Closed head injury: Negative for intracranial injury on CT. Continue monitoring for neurological symptoms and observe facial swelling. 2. Difficulty balancing/ambulating: PT/OT.3 3. Anticoagulated status secondary to afib: Continue monitoring facial swelling for sign of acute bleed. Discontinue Xarelto until facial swelling has subsided and patient has improved balance and gait. 4. HTN, HLD, Hypothyroidism, GERD, Reactive airway disease: Continue treating on home meds. 5. Hypokalemia: K of 3.5. Start on oral potassium replacement. Recheck CMP in 1- 2 days. 6. Anemia: HGB of 11, HCT of 34. Continue monitoring and recheck HGB, HCT. 7. Elevated bilirubin: Bilirubin of 1.7. Continue monitoring for jaundice or liver dysfunction and recheck CMP. 8. UA Abnormalities: Ketones 1+, Crystals Present, Amorphous Sediment Moderate. Likely due to dehydration. Push fluids and possible recheck. DAPHNE HARGROVE DO 08/15/22 0552: Supervisory-Addendum Brief Verification & Attestation Participated in pt care: history, MDM, physical Personally performed: exam, history, MDM, supervision of care Care discussed with: Medical Student Procedures: n/a Results interpretation: Verified all documentation Verification and Attestation of Medical Student E/M Service A medical student performed and documented this service in my presence. I reviewed and verified all information documented by the medical student and made modifications to such information, when appropriate. I personally performed the physical exam and medical decision making. Daphne Hargrove, Aug 15, 2022,05:52 ALYSSA JACKSON Aug 14, 2022 13:57 DAPHNE HARGROVE DO Aug 15, 2022 05:52
--- OUTSIDE RECORDS SUMMARY | 2022-08-14 13:59 | XMS REPORT | CCD ---
Author Author Lucille David D.O. Organization [facility] Address [address] [place] [address] Phone Care Team Providers Care Comprehensive Ophthalmologist Name Role Phone Yvette David D.O., PP Unavailable CCM Unavailable Summary Purpose Interface Exchange Insurance Providers Payer name Policy type / Coverage type Covered republican ID Effective Begin Date Effective End Date WPS MEDICARE PART B [place] Medicare Part B [id number] Unknown Cigna Medicare Part B [id number] Unknown Family History Family History data not found Social History Social History Element Codes Description Effective Dates Tobacco history SNOMED CT: 282324099 Has never smoked or chewed tobacco 05/26/2015 Marital status Unknown 09/13/2011 Allergies, Adverse Reactions, Alerts Substance Reaction Codes Entered Date Inactivated Date Status * NO KNOWN ENVIRONMENTAL ALLERGIES Unknown 02/07/2010 N o Inactive Date Active * NO KNOWN FOOD ALLERGIES Unknown 02/07/2010 No Inactiv e Date Active PENICILLINS reaction, Unknown 11/02/2016 No Inactive Date Active Problems Condition Codes Effective Dates Condition Status Hospital discharge follow-up ICD-10: Z09 ICD-9: V67.59 08/07/2022 Active Right humeral fracture ICD-10: S42.301A ICD-9: 812.20 08/07/2022 Active Right rib fracture ICD-10: S22.31XA ICD-9: 807.00 08/07/2022 Active Atrial fibrillation and flutter ICD-10: I48.91 ICD-9: 427.31 02/27/2022 Active Cough ICD-10: R05.9 ICD-9: 786.2 08/02/2022 Active Essential (primary) hypertension ICD-10: I10 ICD-9: 401.1 04/22/2018 Active Stress ICD-10: F43.9 ICD-9: V62.89 08/02/2022 Active Chronic atrial fibrillation ICD-10: I48.20 ICD-9: 427.31 10/29/2019 Active Essential hypertension ICD-10: I10 ICD-9: 401.9 12/11/2016 Active Mild chronic obstructive pulmonary disease ICD-10: J44 .9 ICD-9: 496 05/22/2022 Active Skin cancer of arm ICD-10: C44.601 ICD-9: 173.60 05/22/2022 Active Anemia, unspecified ICD-10: D64.9 ICD-9: 285.9 05/05/2020 Active Hyperglycemia, unspecified ICD-10: R73.9 ICD-9: 790.29 12/11/2016 Active Hypothyroidism ICD-10: E03.9 ICD-9: 244.9 12/11/2016 Active Mixed hyperlipidemia ICD-10: E78.2 ICD-9: 272.4 12/11/2016 Active Atypical nevus of right forearm ICD-10: D22.61 ICD-9: 216.6 02/27/2022 Active Unspecified atrial flutter ICD-10: I48.92 02/27/2022 Activ e Anxiety ICD-10: F41.9 ICD-9: 300.00 10/12/2021 Active Stress reaction ICD-10: F43.0 ICD-9: 308.9 10/12/2021 Active Acute foreign body of left ear canal, initial encounte r ICD-10: T16.2XXA ICD-9: 931 08/09/2021 Active Acute foreign body of right ear canal ICD-10: T16.1XXA ICD-9: 931 08/09/2021 Active Contact with and (suspected) exposure to covid-19 ICD- 10: Z20.822 ICD-9: V01.79 08/09/2021 Active Nasopharyngitis ICD-10: J00 ICD-9: 460 08/09/2021 Active Paroxysmal atrial fibrillation ICD-10: I48.0 ICD-9: 427.31 10/18/2017 Active Grieving ICD-10: F43.21 ICD-9: 309.0 05/12/2021 Active Inflamed seborrheic keratosis ICD-10: L82.0 ICD-9: 702.11 05/12/2021 Active Rhus dermatitis ICD-10: L25.5 ICD-9: 692.6 03/08/2021 Active Depression ICD-10: F32.9 ICD-9: 311 01/04/2021 Active Cerumen impaction ICD-10: H61.20 ICD-9: 380.4 10/20/2019 Active Vertigo ICD-10: R42 ICD-9: 780.4 02/06/2016 Active Dysplastic nevus of right lower extremity ICD-10: D23. 71 ICD-9: 216.7 05/19/2020 Active Encounter for general adult medical examination withou t abnormal findings ICD- 10: Z00.00 ICD-9: V70.9 12/11/2016 Active Hypotension ICD-10: I95.9 ICD-9: 458.9 05/11/2020 Active Sleep apnea ICD-10: G47.30 ICD-9: 780.57 05/11/2020 Active Type 2 diabetes mellitus with hyperglycemia ICD-10: E1 1.65 ICD-9: 250.02 05/05/2020 Active Encounter for screening mammogram for malignant neopla sm of breast ICD-10: Z12.31 ICD-9: V76.11 06/30/2015 Active Chronic pruritic rash in adult ICD-10: L29.8 ICD-9: 698.8 01/28/2020 Active Chronic pruritus ICD-10: L29.9 ICD-9: 698.9 01/05/2020 Active Dermatitis ICD-10: L30.9 ICD-9: 692.9 01/28/2020 Active Renal insufficiency ICD-10: N28.9 ICD-9: 593.9 10/29/2019 Active Dehydration ICD-10: E86.0 ICD-9: 276.51 10/20/2019 Active Hematuria, unspecified ICD-10: R31.9 ICD-9: 599.70 10/23/2019 Active Gastritis ICD-10: K29.70 ICD-9: 535.50 10/20/2019 Active Localized edema ICD-10: R60.0 ICD-9: 782.3 04/15/2019 Active Solitary cyst of left breast ICD-10: N60.02 ICD-9: 610.0 03/17/2019 Active Presence of right artificial knee joint ICD-10: Z96.65 1 ICD-9: V43.65 08/08/2018 Active Unspecified hearing loss, left ear ICD-10: H91.92 ICD-9: 389.9 08/08/2018 Active Impacted cerumen, bilateral ICD-10: H61.23 ICD-9: 380.4 07/24/2017 Active Sudden idiopathic hearing loss, left ear ICD-10: H91.2 2 ICD-9: 388.2 06/25/2018 Active Vertigo of central origin, bilateral ICD-10: H81.43 ICD-9: 386.2 05/03/2018 Active Allergic rhinitis due to pollen ICD-10: J30.1 ICD-9: 477.9 05/03/2018 Active Obstructive sleep apnea (adult) (pediatric) ICD-10: G4 7.33 ICD-9: 327.23 06/14/2017 Active Unilateral primary osteoarthritis, right knee ICD-10: M17.11 ICD-9: 716.96 04/22/2018 Active Zoster without complications ICD-10: B02.9 ICD-9: 053.9 06/01/2017 Active Other vitamin B12 deficiency anemias ICD-10: D51.8 ICD-9: 281.1 12/18/2016 Active Acute sinusitis, unspecified ICD-10: J01.90 ICD-9: 461.9 07/24/2017 Active Tachycardia, unspecified ICD-10: R00.0 ICD-9: 785.0 03/30/2017 Active Other chest pain ICD-10: R07.89 ICD-9: 786.59 01/17/2017 Active Other fatigue ICD-10: R53.83 ICD-9: 780.79 12/18/2016 Active Snoring ICD-10: R06.83 ICD-9: 786.09 01/17/2017 Active Cardiac murmur, unspecified ICD-10: R01.1 ICD-9: 785.2 12/18/2016 Active Polyneuropathy, unspecified ICD-10: G62.9 ICD-9: 355.9 12/18/2016 Active 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 technician (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 ICD-10: Z79.899 ICD-9: V58.69 12/11/2016 Active Cough ICD-10: R05 ICD-9: 786.2 11/02/2016 Active URI, ACUTE ICD-10: J06.9 ICD-9: 465.9 11/02/2016 Active Encounter for screening mammogram for malignant neopla sm of breast ICD-10: Z12.31 ICD-9: V76.12 06/05/2014 Active Diarrhea, unspecified ICD-10: R19.7 ICD-9: 787.91 02/06/2016 Active Nausea ICD-10: R11.0 ICD-9: 787.02 02/06/2016 Active Neuropathy ICD-9: 355.9 05/25/2015 Active PNEUMOCOCCAL VACCINE ICD-10: Z23 ICD-9: V03.82 05/25/2015 Active Hematochezia ICD-9: 578.1 12/15/2014 Active Ceruminosis ICD-9: 380.4 11/30/2014 Active TINEA PEDIS ICD-9: 110.4 11/30/2014 Active GERD ICD-9: 530.81 07/23/2014 Active OTH SCREENING MAMMOGRAM ICD-9: V76.12 06/05/2014 Active Heel pain ICD-9: 729.5 03/09/2014 Active Right medial knee pain ICD-9: 719.46 02/05/2014 Active ANEMIA NOS ICD-9: 285.9 02/04/2014 Active HYPERLIPIDEMIA NEC/NOS ICD-9: 272.4 02/04/2014 Active HYPERTENSION ICD-9: 401.9 02/04/2014 Active HYPOTHYROIDISM ICD-9: 244.9 02/04/2014 Active MALAISE AND FATIGUE ICD-9: 780.79 02/04/2014 Active Bulging lumbar disc ICD-9: 722.10 04/07/2013 Active Lumbar degenerative disc disease ICD-9: 722.52 03/31/2013 Active DYSPEPSIA ICD-9: 536.8 10/09/2012 Active Greater trochanteric bursitis ICD-9: 726.5 10/09/2012 Ac tive Hypertension Unknown 03/18/2012 Active OTALGIA ICD-9: 388.70 2012 Active Cystocele ICD-9: 618.01 09/27/2011 Active ROUTINE GYNE EXAM ICD-9: V72.31 09/27/2011 Active VAGINITIS ICD-9: 623.5 09/27/2011 Active URI, ACUTE ICD-9: 465.9 09/13/2011 Active COUGH ICD-9: 786.2 08/07/2011 Active PHARYNGITIS, ACUTE ICD-9: 462 08/07/2011 Active AORTIC VALVE DISORDER ICD-9: 424.1 12/16/2010 Active BENIGN HYPERTENSION ICD-9: 401.1 12/16/2010 Active PREMATURE BEATS NEC ICD-9: 427.69 12/16/2010 Active Sacroiliac dysfunction ICD-9: 739.4 02/14/2010 Active SPASM OF MUSCLE ICD-9: 728.85 02/14/2010 Active Low back pain ICD-9: 724.2 02/07/2010 Active Medications Medication Codes Instructions Start Date Stop Date Status Fill Instructions tramadol 50 mg tablet RxNorm: 048903 1 Tablet(s) Oral f our times a day as needed for pain take with tylenol 650mg? 08/09/2022 08/11/2022 Active tramadol 50 mg tablet RxNorm: 936852 Take 1-2 Tablet(s) Oral Every 6 hours as needed as needed for pain 08/07/2022 08/07/2022 Inactive Effexor XR 75 mg capsule,extended release RxNorm: 969432 Take 1 Capsule(s) Oral QPM replaces 37.5mg done 08/02/2022 10/30/2022 Active Singulair 10 mg tablet RxNorm: 545274 Take 1 Tablet(s) Oral QPM 05/202201/28/2023 Active metoprolol succinate ER 50 mg tablet,extended release 24 hr RxNorm: 704413 1 Tablet(s) Oral two times a day 06/26/2022 12/22/2022 Active amiodarone 200 mg tablet RxNorm: 338536 Take 1 Tablet(s) Oral t wo times a day 06/26/2022 06/26/2022 Inactive venlafaxine ER 37.5 mg capsule,extended release 24 hr RxNorm : 585560 Take 1 Capsule(s) Oral QAM 06/16/2022 08/01/2022 Inactive simvastatin 20 mg tablet RxNorm: 940188 Take 1 Tablet(s) Oral QD 11/21/2022 Active Xarelto 20 mg tablet RxNorm: 9787780 Take 1 Tablet(s) Oral QD 05/22 No Stop Date Active amiodarone 200 mg tablet RxNorm: 755702 Take 1 Tablet(s) Oral QD 06/25/2022 Inactive Euthyrox 88 mcg tablet RxNorm: 428772 TAKE 1 TABLET BY MOUTH ONCE DAILY - DUE FOR UPDATED LAB 05/21/2022 08/18/2022 Active Breztri Aerosphere 160 mcg-9mcg-4.8mcg/actuation HFA a erosol inhaler RxNorm: 7279469 2 Puff(s) Inhalation two times a day in the morning an d evening 05/01/2022 05/01/2022 Inactive Breztri Aerosphere 160 mcg-9mcg-4.8mcg/actuation HFA a erosol inhaler RxNorm: 4768381 2 Puff(s) Inhalation two times a day in the morning an d evening 05/01/2022 05/30/2022 Inactive diltiazem CD 120 mg capsule,extended release 24 hr RxNorm: 8 37631 TAKE 1 CAPSULE BY MOUTH TWICE DAILY REPLACES 180MG DOSE 04/17/2022 10/13/2022 Active pantoprazole 40 mg tablet,delayed release RxNorm: 026686 Take 1 Tablet(s) Oral QD 04/17/2022 10/13/2022 Active Xarelto 10 mg tablet RxNorm: 4930324 Take 1 Tablet(s) Oral QD 03/2105/21/2022 Inactive simvastatin 20 mg tablet RxNorm: 939072 Take 1 Tablet(s) Oral QD 02/23/2022 Inactive levothyroxine 88 mcg tablet RxNorm: 766011 Take 1 table t by mouth once daily due for updated lab 02/22/2022 02/22/2022 Inactive Cartia XT 120 mg capsule,extended release RxNorm: 170420 TAKE 1 CAPSULE BY MOUTH TWICE DAILY REPLACES 180MG DOSE 01/16/2022 01/16/2022 Inactive pantoprazole 40 mg tablet,delayed release RxNorm: 519281 Take 1 Oral QD 12/15/2021 12/15/2021 Inactive scopolamine 1 mg over 3 days transdermal patch RxNorm: 10419 2 Take 1 Application Transdermal Q3D as needed 11/23/2021 06/25/2022 Inactive Effexor XR 37.5 mg capsule,extended release RxNorm: 211100 1 Capsule(s) Oral QAM 11/23/2021 11/23/2021 Inactive levothyroxine 88 mcg tablet RxNorm: 499560 Take 1 tablet by alvaro th once daily 11/21/2021 11/21/2021 Inactive diltiazem CD 120 mg capsule,extended release 24 hr RxNorm: 8 49877 TAKE 1 CAPSULE BY MOUTH TWICE DAILY REPLACES 180MG DOSE 10/17/2021 10/17/2021 Inactiv e pantoprazole 40 mg tablet,delayed release RxNorm: 476036 Take 1 Tablet(s) Oral QD 10/17/2021 10/17/2021 Inactive Effexor XR 37.5 mg capsule,extended release RxNorm: 501499 1 Capsule(s) Oral QAM 10/12/2021 11/22/2021 Inactive Xarelto 10 mg tablet RxNorm: 3427669 Take 1 Tablet(s) Oral QD 09/1409/14/2021 Inactive metoprolol succinate ER 50 mg tablet,extended release 24 hr RxNorm: 196054 Take 1/2 (one-half) tablet by mouth twice daily 09/14/2021 03/12/2022 Inact beto simvastatin 20 mg tablet RxNorm: 105136 Take 1 Tablet(s) Oral QD 08/30/2021 Inactive levothyroxine 88 mcg tablet RxNorm: 804318 Take 1 tablet by alvaro once daily 08/28/2021 08/28/2021 Inactive fluticasone propionate 50 mcg/actuation nasal spray,suspensi on RxNorm: 9113797 Take 1 [place] Nasal QD in each nostrilas needed 08/09/2021 09/07/2021 I nactive pantoprazole 40 mg tablet,delayed release RxNorm: 531533 Take 1 Tablet(s) Oral QD 07/19/2021 07/19/2021 Inactive Xarelto 10 mg tablet RxNorm: 0067603 Take 1 Tablet(s) Oral QD 06/2906/29/2021 Inactive Euthyrox 88 mcg tablet RxNorm: 457863 Take 1 tablet by mouth on ce daily 05/24/2021 05/24/2021 Inactive Effexor XR 37.5 mg capsule,extended release RxNorm: 204095 1 Capsule(s) Oral QAM 05/12/2021 07/27/2021 Inactive Xarelto 10 mg tablet RxNorm: 4778790 Take 1 tablet by [facility] once daily Take 1 Tablet(s) Oral QD 04/19/2021 04/19/2021 Inactive metoprolol succinate ER 50 mg tablet,extended release 24 hr RxNorm: 640531 1/2 Tablet(s) Oral two times a day 04/12/2021 04/12/2021 Inactive d ecrease in dose of 1/2 tablet twice daily metoprolol succinate ER 50 mg tablet,extended release 24 hr RxNorm: 748110 Take 1/2 (one-half) tablet by mouth twice daily 04/12/2021 10/11/2021 Inact beto simvastatin 20 mg tablet RxNorm: 103993 Take 1 Tablet(s) Oral QD 03/07/2021 Inactive prednisone 10 mg tablet RxNorm: 992939 Take 1 Tablet(s) Oral tw o times a day 03/01/2021 03/01/2021 Inactive triamcinolone acetonide 0.1 % topical cream RxNorm: 1355417 Apply 1 Application Topical two times a day 03/01/2021 03/01/2021 Inactive prednisone 10 mg tablet RxNorm: 308734 Take 1 Tablet(s) Oral tw o times a day 03/01/2021 03/03/2021 Inactive triamcinolone acetonide 0.1 % topical cream RxNorm: 9886145 Apply 1 Application Topical two times a day 03/01/2021 03/01/2021 Inactive Euthyrox 88 mcg tablet RxNorm: 258768 Take 1 tablet by mouth on ce daily 02/22/2021 02/22/2021 Inactive Effexor XR 37.5 mg capsule,extended release RxNorm: 356939 1 Capsule(s) Oral QAM 02/03/2021 02/02/2021 Inactive Effexor XR 37.5 mg capsule,extended release RxNorm: 827143 1 Capsule(s) Oral QAM 02/03/2021 04/03/2021 Inactive simvastatin 20 mg tablet RxNorm: 067128 Take 1 tablet by mouth once daily 1 01/25/2021 01/25/2021 Inactive Cardizem CD 120 mg capsule,extended release RxNorm: 618934 1 Capsule(s) Oral two times a day replaces 180mg dose 01/19/2021 01/19/2021 Inactive Protonix 40 mg tablet,delayed release RxNorm: 268945 1 Tablet(s ) Oral QD 01/17/2021 01/17/2021 Inactive Effexor XR 37.5 mg capsule,extended release RxNorm: 768682 1 Capsule(s) Oral QAM 01/04/2021 02/02/2021 Inactive scopolamine 1 mg over 3 days transdermal patch RxNorm: 15679 2 1 Application Transdermal behind ear for vertigo 01/04/2021 01/03/2021 Inactive scopolamine 1 mg over 3 days transdermal patch RxNorm: 84888 2 1 Application Transdermal behind ear for vertigo 01/04/2021 01/04/2021 Inactive metoprolol succinate ER 50 mg tablet,extended release 24 hr RxNorm: 423524 1/2 Tablet(s) Oral two times a day 12/29/2020 12/28/2020 Inactive metoprolol succinate ER 50 mg tablet,extended release 24 hr RxNorm: 259198 1/2 Tablet(s) Oral two times a day 12/29/2020 12/29/2020 Inactive d ecrease in dose of 1/2 tablet twice daily Xarelto 10 mg tablet RxNorm: 0220670 Take 1 tablet by mouth once daily 12/29/2020 03/29/2021 Inactive Xarelto 10 mg tablet RxNorm: 0541540 Take 1 tablet by mouth once daily 11/26/2020 12/28/2020 Inactive simvastatin 20 mg tablet RxNorm: 182484 Take 1 tablet by mouth once daily 11/26/2020 01/24/2021 Inactive Synthroid 88 mcg tablet RxNorm: 953884 Take 1 tablet by mouth o nce daily 10/21/2020 10/21/2020 Inactive simvastatin 20 mg tablet RxNorm: 766644 Take 1 tablet by mouth once daily 09/30/2020 11/25/2020 Inactive Xarelto 10 mg tablet RxNorm: 4102428 Take 1 tablet by mouth once daily 08/26/2020 11/23/2020 Inactive metoprolol succinate ER 50 mg tablet,extended release 24 hr RxNorm: 925003 1 Tablet(s) Oral two times a day 08/05/2020 11/03/2020 Inactive simvastatin 20 mg tablet RxNorm: 749503 Take 1 tablet by mouth once daily 07/30/2020 09/27/2020 Inactive Synthroid 88 mcg tablet RxNorm: 231201 Take 1 tablet by mouth o nce daily 07/27/2020 10/20/2020 Inactive Protonix 40 mg tablet,delayed release RxNorm: 019385 1 Tablet(s ) Oral QD 07/26/2020 10/24/2020 Inactive Xarelto 10 mg tablet RxNorm: 9171199 1 Tablet(s) Oral QD 06/03/2020 1 10/26/2019 Inactive Cardizem CD 120 mg capsule,extended release RxNorm: 352630 1 Capsule(s) Oral two times a day replaces 180mg dose 05/11/2020 11/07/2020 Inactive Pradaxa 75 mg capsule RxNorm: 6849769 1 Capsule(s) Oral two time s a day 05/11/2020 05/11/2020 Inactive meclizine 25 mg tablet RxNorm: 976121 1 Tablet(s) Oral every ni ght at bedtime 05/05/2020 10/11/2021 Inactive simvastatin 20 mg tablet RxNorm: 016181 Take 1 tablet by mouth once daily 05/04/2020 05/10/2020 Inactive simvastatin 20 mg tablet RxNorm: 337969 TAKE 1 TABLET BY MOUTH ONCE DAILY 04/29/2020 09/19/2020 Inactive Synthroid 88 mcg tablet RxNorm: 724883 TAKE 1 TABLET BY MOUTH O NCE DAILY 04/20/2020 07/18/2020 Inactive diltiazem CD 180 mg capsule,extended release 24 hr RxNorm: 8 66433 TAKE 1 CAPSULE BY MOUTH TWICE DAILY 04/05/2020 05/10/2020 Inactive simvastatin 20 mg tablet RxNorm: 957325 TAKE 1 TABLET BY MOUTH ONCE DAILY 02/24/2020 04/23/2020 Inactive aspirin 325 mg tablet RxNorm: 301895 1 Tablet(s) Oral QD 02/11/2020 0 05/10/2020 Inactive hydroxyzine HCl 10 mg tablet RxNorm: 025731 1 Tablet(s) Oral th ree times a day 01/28/2020 05/10/2020 Inactive diltiazem CD 180 mg capsule,extended release 24 hr RxNorm: 8 71818 TAKE 1 CAPSULE BY MOUTH TWICE DAILY 01/19/2020 04/04/2020 Inactive spironolactone 25 mg tablet RxNorm: 346267 1 Tablet(s) Oral QOD replaces Triam/HCTZ 01/15/2020 01/14/2020 Inactive spironolactone 25 mg tablet RxNorm: 326915 1 Tablet(s) Oral QOD replaces Triam/HCTZ 01/15/2020 01/26/2020 Inactive prednisone 20 mg tablet RxNorm: 301141 1 Tablet(s) Oral QD 01/12/2001/14/2020 Inactive prednisone 20 mg tablet RxNorm: 283415 1 Tablet(s) Oral QD 01/12/2001/11/2020 Inactive Benadryl 25 mg capsule RxNorm: 7073048 1 Capsule(s) Oral every n ight at bedtime 01/08/2020 05/10/2020 Inactive Pepcid 20 mg tablet RxNorm: 882189 1 Tablet(s) Oral two times a day 01/08/2020 07/25/2020 Inactive [place] Original 0.5 %-0.5 % lotion RxNorm: 025453 Topical 0 10/11/2021 Inactive Zyrtec 10 mg tablet RxNorm: 0859409 1 Tablet(s) Oral QAM 01/08/2020 0 05/10/2020 Inactive metoprolol succinate ER 50 mg tablet,extended release 24 hr RxNorm: 048908 1 Tablet(s) Oral two times a day 01/05/2020 04/04/2020 Inactive Protonix 40 mg tablet,delayed release RxNorm: 664721 TA KE 1 TABLET BY MOUTH ONCE DAILY 12/29/2019 05/10/2020 Inactive triamterene 37.5 mg-hydrochlorothiazide 25 mg tablet RxNorm: 935020 TAKE 1/2 (ONE-HALF) TABLET BY MOUTH EVERY OTHER DAY 12/24/2019 01/14/2020 Inact beto triamterene 37.5 mg-hydrochlorothiazide 25 mg tablet RxNorm: 644276 1/2 Tablet(s) Oral QD 12/12/2019 01/26/2020 Inactive diltiazem CD 180 mg capsule,extended release 24 hr RxNorm: 8 82704 TAKE 1 CAPSULE BY MOUTH TWICE DAILY 12/03/2019 01/18/2020 Inactive Eliquis 2.5 mg tablet RxNorm: 9368264 1 Tablet(s) Oral two times a day 11/25/2019 02/10/2020 Inactive simvastatin 20 mg tablet RxNorm: 589971 TAKE 1 TABLET BY MOUTH ONCE DAILY 11/25/2019 02/22/2020 Inactive triamterene 37.5 mg-hydrochlorothiazide 25 mg tablet RxNorm: 529806 1/2 Tablet(s) Oral QOD 11/06/2019 12/11/2019 Inactive triamterene 37.5 mg-hydrochlorothiazide 25 mg tablet RxNorm: 967068 1/2 Tablet(s) Oral QD 10/22/2019 10/28/2019 Inactive meclizine 25 mg tablet RxNorm: 441964 1 Tablet(s) Oral every ni ght at bedtime 10/20/2019 11/19/2019 Inactive Synthroid 88 mcg tablet RxNorm: 869977 TAKE 1 TABLET BY MOUTH O NCE DAILY 10/20/2019 10/21/2019 Inactive scopolamine 1 mg over 3 days transdermal patch RxNorm: 18970 2 1 Unit Dose Transdermal Q72H for vertigo 10/14/2019 01/04/2020 Inactive scopolamine 1 mg over 3 days transdermal patch RxNorm: 00889 2 1 Unit Dose Transdermal Q72H for vertigo 10/14/2019 10/14/2019 Inactive Celebrex 200 mg capsule RxNorm: 712020 TAKE 1 CAPSULE BY MOUTH ONCE DAILY 10/12/2019 10/28/2019 Inactive triamterene 37.5 mg-hydrochlorothiazide 25 mg tablet RxNorm: 303320 1 Tablet(s) Oral QAM 10/06/2019 10/21/2019 Inactive diltiazem CD 180 mg capsule,extended release 24 hr RxNorm: 8 17305 1 Capsule(s) Oral two times a day 10/01/2019 11/29/2019 Inactive simvastatin 20 mg tablet RxNorm: 238960 TAKE 1 TABLET BY MOUTH ONCE DAILY 10/01/2019 10/01/2019 Inactive Patient will need to have fasting labs done before next refill Protonix 40 mg tablet,delayed release RxNorm: 230692 TA KE 1 TABLET BY MOUTH ONCE DAILY 09/28/2019 12/26/2019 Inactive diltiazem CD 180 mg capsule,extended release 24 hr RxNorm: 8 63928 1 Capsule(s) Oral two times a day 08/11/2019 08/10/2019 Inactive diltiazem CD 180 mg capsule,extended release 24 hr RxNorm: 8 61386 1 Capsule(s) Oral two times a day 08/11/2019 09/30/2019 Inactive diltiazem CD 120 mg capsule,extended release 24 hr RxNorm: 8 91523 1 Capsule(s) Oral two times a day 07/23/2019 08/10/2019 Inactive Celebrex 200 mg capsule RxNorm: 728828 1 Capsule(s) Oral QD 019 07/08/2019 Inactive Celebrex 200 mg capsule RxNorm: 874885 1 Capsule(s) Oral QD 019 10/07/2019 Inactive diltiazem CD 120 mg capsule,extended release 24 hr RxNorm: 8 07150 1 Capsule(s) Oral QAM 07/07/2019 07/22/2019 Inactive Eliquis 2.5 mg tablet RxNorm: 3280806 1 Tablet(s) Oral two times a day 07/07/2019 11/04/2019 Inactive metoprolol succinate ER 50 mg tablet,extended release 24 hr RxNorm: 195385 1 Tablet(s) Oral QAM and 2 tablets in the evening 06/30/2019 08/05/2020 Inactive hydrochlorothiazide 25 mg tablet RxNorm: 122034 1 Tablet(s) PO QD 1 07/06/2019 Inactive hydrochlorothiazide 25 mg tablet RxNorm: 941058 1 Tablet(s) PO QD 0 05/08/2019 05/07/2019 Inactive patient needs to follow up i n 2 months and continue BP readings at home hydrochlorothiazide 25 mg tablet RxNorm: 512165 1 Tablet(s) PO QD 0 05/08/2019 06/25/2019 Inactive patient needs to follow up i n 2 months and continue BP readings at home metoprolol succinate ER 50 mg tablet,extended release 24 hr RxNorm: 715768 1 Tablet(s) PO QAM and 2 tablets in the evening 05/08/2019 06/29/2019 In active hydrochlorothiazide 12.5 mg tablet RxNorm: 878304 1 Tablet(s) PO QA M 04/15/2019 05/07/2019 Inactive Synthroid 88 mcg tablet RxNorm: 047400 TAKE 1 TABLET BY MOUTH O NCE DAILY 04/14/2019 10/19/2019 Inactive Protonix 40 mg tablet,delayed release RxNorm: 125676 TA KE 1 TABLET BY MOUTH ONCE DAILY 03/24/2019 09/27/2019 Inactive simvastatin 20 mg tablet RxNorm: 571457 TAKE 1 TABLET BY MOUTH ONCE DAILY 03/24/2019 09/30/2019 Inactive losartan 100 mg tablet RxNorm: 324333 1/2 Tablet(s) PO QD 2019 04/14/2019 Inactive Cozaar 50 mg tablet RxNorm: 073290 1 Tablet(s) PO QHS 01/28/201903/25 Inactive Celebrex 200 mg capsule RxNorm: 027747 TAKE 1 CAPSULE BY MOUTH ONCE DAILY 01/10/2019 07/08/2019 Inactive Protonix 40 mg tablet,delayed release RxNorm: 465457 TA KE 1 TABLET BY MOUTH ONCE DAILY 12/23/2018 03/23/2019 Inactive metoprolol succinate ER 50 mg tablet,extended release 24 hr RxNorm: 754555 1.5 Tablet(s) PO BID 12/03/2018 04/14/2019 Inactive Synthroid 88 mcg tablet RxNorm: 351361 1 Tablet(s) PO QD 10/24/2018 0 04/13/2019 Inactive simvastatin 20 mg tablet RxNorm: 422370 1 Tablet(s) PO QD 09/27/2018 12/25/2018 Inactive simvastatin 20 mg tablet RxNorm: 738014 1 Tablet(s) PO QD 09/26/2018 09/26/2018 Inactive Cozaar 50 mg tablet RxNorm: 469572 1 Tablet(s) PO QHS 09/09/201802/2019 Inactive Cozaar 50 mg tablet RxNorm: 771958 1 Tablet(s) PO QHS 09/09/201808/24 Inactive metoprolol succinate ER 50 mg tablet,extended release 24 hr RxNorm: 347596 1.5 Tablet(s) PO BID 09/02/2018 11/30/2018 Inactive Cozaar 50 mg tablet RxNorm: 439176 1 Tablet(s) PO QHS 05/24/201808/24 Inactive Cozaar 25 mg tablet RxNorm: 262470 1 Tablet(s) PO QAM 05/10/201804/25 Inactive clonidine HCl 0.1 mg tablet RxNorm: 655786 1 Tablet(s) PO TID as needed for BP greater than 160/95 05/10/2018 05/20/2018 Inactive betamethasone dipropionate 0.05 % topical cream RxNorm: 2389 20 1 Application TOP BID 05/06/2018 11/25/2018 Inactive prednisone 20 mg tablet RxNorm: 479395 1 Tablet(s) PO QD 05/06/2018 0 05/05/2018 Inactive prednisone 20 mg tablet RxNorm: 796432 1 Tablet(s) PO QD 05/06/2018 0 05/10/2018 Inactive metoprolol succinate ER 50 mg tablet,extended release 24 hr RxNorm: 190114 1.5 Tablet(s) PO BID 05/06/2018 09/01/2018 Inactive Flonase Allergy Relief 50 mcg/actuation nasal spray,suspensi on RxNorm: 2957313 2 [place] NASAL QHS 05/03/2018 11/25/2018 Inactive Celebrex 200 mg capsule RxNorm: 536709 TAKE ONE CAPSULE BY MOUT H ONCE DAILY 04/30/2018 05/02/2018 Inactive Celebrex 200 mg capsule RxNorm: 114717 1 Capsule(s) PO QD TAKE ONE CAPSULE BY MOUTH ONCE DAILY 04/30/2018 05/02/2018 Inactive Synthroid 88 mcg tablet RxNorm: 559231 1 Tablet(s) PO QD 03/12/2018 1 11/08/2017 Inactive acyclovir 5 % topical ointment RxNorm: 536991 1 Unit Dose TOP Q 6H as needed 03/05/2018 11/25/2018 Inactive Protonix 40 mg tablet,delayed release RxNorm: 073323 1 Tablet(s ) PO QD 12/17/2017 12/22/2018 Inactive simvastatin 20 mg tablet RxNorm: 507145 TAKE ONE TABLET BY MOUT H ONCE DAILY 12/17/2017 09/27/2018 Inactive Celebrex 200 mg capsule RxNorm: 968439 TAKE ONE CAPSULE BY MOUT H ONCE DAILY 10/30/2017 04/29/2018 Inactive Synthroid 88 mcg tablet RxNorm: 853159 1 Tablet(s) PO QD 09/19/2017 0 03/12/2018 Inactive Synthroid 88 mcg tablet RxNorm: 540087 1 Tablet(s) PO QD Needs updated labs 09/19/2017 10/24/2018 Inactive Synthroid 88 mcg tablet RxNorm: 773064 1 Tablet(s) PO QD 06/20/2017 1 11/18/2016 Inactive simvastatin 20 mg tablet RxNorm: 217283 1 Tablet(s) PO QD 06/15/2017 09/12/2017 Inactive simvastatin 20 mg tablet RxNorm: 207712 1 Tablet(s) PO QD 06/15/2017 06/14/2017 Inactive metoprolol succinate ER 25 mg tablet,extended release 24 hr RxNorm: 056573 1 Tablet(s) PO QD 06/14/2017 07/23/2017 Inactive Valtrex 1 gram tablet RxNorm: 338636 1 Tablet(s) PO TID 06/01/2017 Inactive Celebrex 200 mg capsule RxNorm: 865327 1 Capsule(s) PO QD 05/01/2017 10/27/2017 Inactive Toprol XL 25 mg tablet,extended release RxNorm: 510485 09/25 Tabl et(s) PO QD 04/12/2017 06/13/2017 Inactive simvastatin 20 mg tablet RxNorm: 738487 1 Tablet(s) PO QD 03/19/2017 06/14/2017 Inactive Synthroid 88 mcg tablet RxNorm: 299184 1 Tablet(s) PO QD 03/14/2017 0 06/20/2017 Inactive aspirin 81 mg chewable tablet RxNorm: 783562 1 Tablet(s) PO QD 12/2404/21/2018 Inactive simvastatin 20 mg tablet RxNorm: 729544 TAKE ONE TABLET BY MOUT H ONCE DAILY 12/19/2016 03/19/2017 Inactive gabapentin 300 mg capsule RxNorm: 719968 1 Capsule(s) PO QHS 201603/29/2017 Inactive Protonix 40 mg tablet,delayed release RxNorm: 344015 TA KE ONE TABLET BY MOUTH ONCE DAILY 12/14/2016 12/08/2017 Inactive Flonase Allergy Relief 50 mcg/actuation nasal spray,suspensi on RxNorm: 2225696 2 [place] NASAL QHS 11/02/2016 12/17/2016 Inactive clotrimazole-betamethasone 1 %-0.05 % topical cream RxNorm: 706780 1 Application TOP BID 11/02/2016 11/01/2016 Inactive clotrimazole-betamethasone 1 %-0.05 % topical cream RxNorm: 411126 1 Application TOP BID 11/02/2016 12/17/2016 Inactive Tessalon Perles 100 mg capsule RxNorm: 799927 1 Capsule(s) PO TID 0 11/02/2016 12/17/2016 Inactive amoxicillin 500 mg tablet RxNorm: 775735 1 Tablet(s) PO TID 017 11/01/2016 Inactive Toprol XL 25 mg tablet,extended release RxNorm: 812490 TAKE ONE-HALF TABLET BY MOUTH ONCE DAILY 10/19/2016 04/12/2017 Inactive Toprol XL 25 mg tablet,extended release RxNorm: 175234 1/2 Tablet(s) PO QD Due for routine fasting labs and appointment 10/19/2016 01/16/2017 Inactiv e gabapentin 600 mg tablet RxNorm: 853162 1 Tablet(s) PO QHS 07/24/20 16 12/17/2016 Inactive gabapentin 600 mg tablet RxNorm: 949362 TAKE ONE TABLET BY MOUT H AT BEDTIME 07/24/2016 07/23/2016 Inactive simvastatin 20 mg tablet RxNorm: 235186 TAKE ONE TABLET BY MOUT H ONCE DAILY 06/15/2016 12/11/2016 Inactive Celebrex 200 mg capsule RxNorm: 594604 1 Capsule(s) PO QD 05/10/2016 05/01/2017 Inactive Celebrex 200 mg capsule RxNorm: 591842 1 Capsule(s) PO QD 05/09/2016 05/09/2016 Inactive Synthroid 88 mcg tablet RxNorm: 021223 Tablet(s) 1 Tablet(s) PO QD 03/21/2016 09/16/2016 Inactive Synthroid 88 mcg tablet RxNorm: 071093 1 Tablet(s) PO QD 03/20/2016 0 03/20/2016 Inactive simvastatin 20 mg tablet RxNorm: 448900 TAKE ONE TABLET BY MOUT H ONCE DAILY 03/06/2016 06/03/2016 Inactive meclizine 25 mg tablet RxNorm: 538491 1 Tablet(s) PO TID as nee ded dizziness 02/07/2016 12/17/2016 Inactive Zofran ODT 4 mg disintegrating tablet RxNorm: 244357 1 Tablet(s) PO Q6H as needed for nausea 02/07/2016 12/17/2016 Inactive gabapentin 600 mg tablet RxNorm: 135852 TAKE ONE TABLET BY MOUT H AT BEDTIME 01/20/2016 07/17/2016 Inactive Synthroid 88 mcg tablet RxNorm: 269983 1 Tablet(s) PO QD 12/27/2015 0 03/19/2016 Inactive simvastatin 20 mg tablet RxNorm: 570887 1 Tablet(s) PO QD 12/06/2015 03/04/2016 Inactive Protonix 40 mg tablet,delayed release RxNorm: 001532 1 Tablet(s ) PO QD 12/06/2015 12/13/2016 Inactive Celebrex 200 mg capsule RxNorm: 558357 1 Capsule(s) PO QD 11/03/2015 05/10/2016 Inactive Celebrex 200 mg capsule RxNorm: 923602 1 Capsule(s) PO QD 11/03/2015 11/02/2015 Inactive simvastatin 20 mg tablet RxNorm: 413760 1 Tablet(s) PO QD 09/06/2015 12/04/2015 Inactive Gralise 600 mg tablet,extended release RxNorm: 7731729 1 Tablet( s) PO QD 08/23/2015 10/18/2015 Inactive Synthroid 88 mcg tablet RxNorm: 002179 1 Tablet(s) PO QD 06/30/2015 0 09/27/2015 Inactive simvastatin 20 mg tablet RxNorm: 340846 1 Tablet(s) PO QD 06/07/2015 09/04/2015 Inactive Synthroid 88 mcg tablet RxNorm: 087158 1 Tablet(s) PO QD 06/07/2015 1 Inactive Celebrex 200 mg capsule RxNorm: 114390 1 Capsule(s) PO QD 06/07/2015 11/02/2015 Inactive Protonix 40 mg tablet,delayed release RxNorm: 756998 1 Tablet(s ) PO QD 06/07/2015 12/03/2015 Inactive Toprol XL 25 mg tablet,extended release RxNorm: 438738 1/2 Tabl et(s) PO QD 04/13/2015 10/09/2015 Inactive [SAVINGS FOR UNINSUR ED PATIENTS -- BIN:[id number], PCN: ASPROD1, Group: [id number], ID# [id number], Process claim through [employer], for questions: . THIS IS NOT INSURANCE.] Synthroid 88 mcg tablet RxNorm: 425287 1 Tablet(s) PO Q D TAKE ONE TABLET BY MOUTH ONCE DAILY 03/29/2015 06/30/2015 Inactive Celebrex 200 mg capsule RxNorm: 695632 1 Capsule(s) PO QD 03/22/2015 06/06/2015 Inactive Celebrex 200 mg capsule RxNorm: 120752 1 Capsule(s) PO QD 02/22/2015 03/21/2015 Inactive Celebrex 200 mg capsule RxNorm: 331046 1 Capsule(s) PO QD 01/21/2015 02/21/2015 Inactive Synthroid 88 mcg tablet RxNorm: 597912 1 Tablet(s) PO Q D TAKE ONE TABLET BY MOUTH ONCE DAILY 12/21/2014 03/29/2015 Inactive meloxicam 15 mg tablet RxNorm: 509202 1 Tablet(s) PO QD 12/09/2014 Inactive [SAVINGS FOR NON-COVERED DRUGS -- BIN:00 3585, PCN: ASPROD1, Group: XXXXX, ID# [id number], Questions: . THIS IS NOT INSURANCE.] Protonix 40 mg tablet,delayed release RxNorm: 110103 1 Tablet(s ) PO QD 12/08/2014 06/05/2015 Inactive Protonix 40 mg tablet,delayed release RxNorm: 697847 1 Tablet(s ) PO QD 12/07/2014 12/07/2014 Inactive simvastatin 20 mg tablet RxNorm: 792870 TAKE ONE TABLET BY MOUT H ONCE DAILY 11/30/2014 05/28/2015 Inactive clotrimazole-betamethasone 1 %-0.05 % topical cream RxNorm: 3087 14 TOP BID 11/30/2014 11/01/2016 Inactive acetic acid 2 % ear solution RxNorm: 619892 5 Drop(s) OTIC Left ear QID 11/30/2014 12/06/2014 Inactive meloxicam 15 mg tablet RxNorm: 270109 1 Tablet(s) PO QD 10/30/2014 Inactive [SAVINGS FOR NON-COVERED DRUGS -- BIN:00 3585, PCN: ASPROD1, Group: XXXXX, ID# [id number], Questions: . THIS IS NOT INSURANCE.] meloxicam 15 mg tablet RxNorm: 130556 1 Tablet(s) PO QD 10/30/2014 Inactive Toprol XL 25 mg tablet,extended release RxNorm: 822874 1/2 Tabl et(s) PO QD 10/12/2014 04/09/2015 Inactive [SAVINGS FOR UNINSUR ED PATIENTS -- BIN:818756, PCN: ASPROD1, Group: [id number], ID# [id number], Process claim through [employer], for questions: . THIS IS NOT INSURANCE.] Synthroid 88 mcg tablet RxNorm: 445130 1 Tablet(s) PO Q D TAKE ONE TABLET BY MOUTH ONCE DAILY 09/21/2014 12/19/2014 Inactive Protonix 40 mg tablet,delayed release RxNorm: 216887 1 Tablet(s ) PO QD 07/23/2014 11/19/2014 Inactive Synthroid 88 mcg tablet RxNorm: 699469 TAKE ONE TABLET BY MOUTH ONCE DAILY 06/23/2014 09/21/2014 Inactive omeprazole 40 mg capsule,delayed release RxNorm: 841218 1 Capsu le(s) PO QD 06/16/2014 07/22/2014 Inactive [SAVINGS FOR UNINSUR ED PATIENTS -- BIN:673192, PCN: ASPROD1, Group: [id number], ID# [id number], Process claim through [employer], for questions: . THIS IS NOT INSURANCE.] Toprol XL 25 mg tablet,extended release RxNorm: 112230 1/2 Tabl et(s) PO QD 04/13/2014 10/12/2014 Inactive Celebrex 200 mg capsule RxNorm: 664818 1 Capsule(s) PO QD for pain 03/16/2014 10/29/2014 Inactive Medrol ([place]) 4 mg tablets in a dose pack RxNorm: 927671 Tablet(s) PO as directed 03/09/2014 07/22/2014 Inactive Synthroid 88 mcg tablet RxNorm: 507179 1 Tablet(s) PO QD 02/17/2014 0 06/23/2014 Inactive Celebrex 200 mg capsule RxNorm: 634216 1 Capsule(s) PO QD for pain 02/17/2014 03/15/2014 Inactive omeprazole 40 mg capsule,delayed release RxNorm: 682401 1 Capsu le(s) PO QD 02/05/2014 06/16/2014 Inactive Protonix 40 mg tablet,delayed release RxNorm: 915692 1 Tablet(s ) PO QD 01/23/2014 05/10/2020 Inactive Toprol XL 25 mg tablet,extended release RxNorm: 067106 1/2 Tablet(s) PO QD TAKE ONE-HALF TABLET BY MOUTH EVERY DAY 01/12/2014 04/13/2014 Inactive Synthroid 88 mcg tablet RxNorm: 446545 Tablet(s) PO MANDY E ONE TABLET BY MOUTH EVERY DAY 11/17/2013 02/17/2014 Inactive Celebrex 200 mg capsule RxNorm: 917637 1 Capsule(s) PO QD for pain 10/20/2013 02/17/2014 Inactive Toprol XL 25 mg tablet,extended release RxNorm: 616509 1/2 Tabl et(s) PO QD 07/17/2013 01/12/2014 Inactive Nexium 40 mg capsule,delayed release RxNorm: 346439 1 C apsule(s) PO QD Generic ok 07/14/2013 09/21/2013 Inactive Celebrex 200 mg capsule RxNorm: 358983 1 Capsule(s) PO QD for pain 06/19/2013 10/20/2013 Inactive Synthroid 88 mcg tablet RxNorm: 899177 1 Tablet(s) PO QD 05/13/2013 0 11/17/2013 Inactive TAKE ONE TABLET BY MOUTH EVERY DAY Nexium 40 mg capsule,delayed release RxNorm: 857160 Cap maureen(s) PO TAKE ONE CAPSULE BY MOUTH EVERY DAY 05/05/2013 07/13/2013 Inactive Celebrex 200 mg capsule RxNorm: 500724 1 Capsule(s) PO QD for pain 04/07/2013 06/19/2013 Inactive Esgic-Plus 50 mg-500 mg-40 mg capsule RxNorm: 007357 1 Capsule(s) PO Q4-6H prn headache 04/07/2013 04/07/2013 Inactive Toprol XL 25 mg tablet,extended release RxNorm: 236091 1/2 Tabl et(s) PO QD 12/16/2012 06/13/2013 Inactive Nexium 40 mg capsule,delayed release RxNorm: 761656 1 Capsule(s ) PO QD 11/20/2012 03/19/2013 Inactive Synthroid 88 mcg tablet RxNorm: 084955 1 Tablet(s) PO QD 10/28/2012 0 04/25/2013 Inactive TAKE ONE TABLET BY MOUTH EVERY DAY Toprol XL 25 mg tablet,extended release RxNorm: 383922 1/2 Tabl et(s) PO QD 09/25/2012 12/16/2012 Inactive Synthroid 88 mcg tablet RxNorm: 549258 1 Tablet(s) PO QD 04/22/2012 0 10/28/2012 Inactive TAKE ONE TABLET BY MOUTH EVERY DAY Nexium 40 mg capsule,delayed release RxNorm: 255678 1 Capsule(s ) PO QD 04/16/2012 11/20/2012 Inactive Esgic-Plus 50 mg-500 mg-40 mg capsule RxNorm: 848704 1 Capsule(s) PO Q4-6H prn headache 03/28/2012 04/06/2013 Inactive Toprol XL 25 mg tablet,extended release RxNorm: 842441 1/2 Tabl et(s) PO QD 03/07/2012 09/25/2012 Inactive Toprol XL 25 mg 24 hr Tab RxNorm: 203328 1/2 Tablet(s) PO QD 201101/03/2012 Inactive Three times a week Synthroid 88 mcg Tab RxNorm: 503268 1 Tablet(s) PO QD 10/10/201112/23 Inactive TAKE ONE TABLET BY MOUTH EVERY DAY prednisone 20 mg Tab RxNorm: 752541 1 Tablet(s) PO BID 09/13/2011 Inactive doxycycline 100 mg Cap RxNorm: 0406331 1 Capsule(s) PO BID 09/13/2009/22/2011 Inactive cefdinir 300 mg Cap RxNorm: 839540 1 Capsule(s) PO BID 08/07/2011 Inactive Synthroid 88 mcg Tab RxNorm: 319495 1 Tablet(s) PO QD 07/19/201109/24 Inactive TAKE ONE TABLET BY MOUTH EVERY DAY Synthroid 88 mcg Tab RxNorm: 047396 1 Tablet(s) PO QD 07/19/201103/26 Inactive TAKE ONE TABLET BY MOUTH EVERY DAY Synthroid 88 mcg Tab RxNorm: 923917 1 Tablet(s) PO QD 07/18/201106/25 Inactive TAKE ONE TABLET BY MOUTH EVERY DAY Synthroid 88 mcg Tab RxNorm: 292794 1 Tablet(s) PO QD 05/15/201106/25 Inactive TAKE ONE TABLET BY MOUTH EVERY DAY Synthroid 88 mcg Tab RxNorm: 532896 1 Tablet(s) PO QD 03/15/201104/25 Inactive Synthroid 75 mcg Tab RxNorm: 461667 1 Tablet(s) PO QD 01/04/201102/22 Inactive Synthroid 50 mcg Tab RxNorm: 521926 1 Tablet(s) PO QD Ike brown. Please explain to patient that she may see more variation in her thyroid labs and increased symptoms. 07/07/2010 03/14/2011 Inactive Prednisone 20 mg Tab RxNorm: 653710 1 Tablet(s) PO BID 02/14/2010 Inactive Flexeril 10 mg Tab RxNorm: 151140 1 Tablet(s) PO TID 02/07/201002/13 Inactive Synthroid 25 mcg Tab RxNorm: 711374 1 Tablet(s) PO QD 12/29/200902/23 Inactive Synthroid 50 mcg Tab RxNorm: 889842 1 Tablet(s) PO QD 12/29/20090 11/2009 Inactive Vitamin D3 2,000 unit tablet RxNorm: 449415 1 Tablet(s) PO QAM 2014 Active coenzyme Q10 200 mg tablet RxNorm: 798219 1 Tablet(s) PO QD 09/01/2014 Active Trelegy Ellipta inhalation RxNorm: 1413353 inhalation 05/30/2022 Active Vitamin B12 1000mcg Tablet RxNorm: 1/2 Tablet(s) PO QD 04/03/2017 Active gabapentin 600 mg tablet RxNorm: 159307 1 Tablet(s) PO QPM 01/20/20 16 01/19/2016 Inactive Fish Oil 1,000 mg capsule RxNorm: 1 Capsule(s) PO QHS 10/18/2017 0 10/17/2017 Inactive Toprol XL 25 mg 24 hr Tab RxNorm: 433511 /2 Tablet(s) PO QD 201103/06/2012 Inactive turmeric root extract oral RxNorm: 3382958 oral 05/26/20152014 Inactive Esgic 50 mg-325 mg-40 mg tablet RxNorm: 638747 1 Tablet (s) PO Q4H as needed for pain 05/26/2015 05/25/2015 Inactive Synthroid 88 mcg Tab RxNorm: 036518 1 Tablet(s) PO QD 03/15/201102/23 Inactive Calcium with Vitamin D 600 mg-400 unit Tab RxNorm: 854272 1 Tab let(s) PO BID 03/31/2013 03/30/2013 Inactive Synthroid 50 mcg Tab RxNorm: 790282 1 Tablet(s) PO QD 03/16/201002/23 Inactive Celebrex 200 mg capsule RxNorm: 537562 1 Capsule(s) PO QD 01/21/2015 01/20/2015 Inactive betamethasone dipropionate 0.05 % topical cream RxNorm: 2389 20 1 Application TOP BID 05/06/2018 05/05/2018 Inactive Protonix 40 mg tablet,delayed release RxNorm: 478257 1 Tablet(s ) PO QD 01/23/2014 01/23/2014 Inactive Calcium + D 600 mg (1,500)-200 unit Tab RxNorm: 048248 1 Tablet (s) PO QD 01/04/2011 01/03/2011 Inactive simvastatin 20 mg tablet RxNorm: 636369 1 Tablet(s) PO QD 11/30/2014 11/29/2014 Inactive Fish Oil 1,000 mg capsule RxNorm: 2 Capsule(s) PO QD 05/26/2015 Inactive Gralise 600 mg tablet,extended release RxNorm: 3655445 1 Tablet( s) PO QD 08/23/2015 08/22/2015 Inactive Vitamin B12 1000mcg Tablet RxNorm: 1 Tablet(s) PO QD 04/03/2017 Inactive Esgic-Plus 50 mg-500 mg-40 mg Cap RxNorm: 715100 1 Caps ule(s) PO Q4-6H prn headache 03/28/2012 03/27/2012 Inactive Cozaar 50 mg tablet RxNorm: 816861 1 Tablet(s) PO QHS 05/24/201804/26 Inactive Toprol XL 25 mg 24 hr Tab RxNorm: 281619 2 Tablet(s) PO Three t imes a week 01/01/2012 12/31/2011 Inactive metoprolol succinate ER 25 mg tablet,extended release 24 hr RxNorm: 266475 1 Tablet(s) PO TID 10/18/2017 10/17/2017 Inactive metoprolol succinate ER 50 mg tablet,extended release 24 hr RxNorm: 698950 1.5 Tablet(s) PO QAM and tablet at bedtime 05/06/2018 05/05/2018 Inactive Esgic-Plus 50 mg-500 mg-40 mg Cap RxNorm: 471166 1 Capsule(s) P O Q4-6H 08/07/2011 08/06/2011 Inactive metoprolol succinate ER 50 mg tablet,extended release 24 hr RxNorm: 512742 1 Tablet(s) PO QD 04/22/2018 04/21/2018 Inactive Multivitamin & Mineral Formula Tab RxNorm: 1 Tablet(s) PO QD 0 03/31/2013 03/30/2013 Inactive metoprolol succinate ER 50 mg tablet,extended release 24 hr RxNorm: 693163 2 Tablet(s) PO QAM and 1.5 tablets (75mg) at bedtime 05/01/2019 9 Inactive Fish Oil 1,000 mg Cap RxNorm: 1 Capsule(s) PO QD 03/31/20132012 Inactive pantoprazole 40 mg tablet,delayed release RxNorm: 846251 1 Tabl et(s) PO QD 02/05/2014 02/04/2014 Inactive Eliquis 2.5 mg tablet RxNorm: 3178933 1 Tablet(s) PO BID 07/07/2019 1 Inactive Medrol 4 mg Tab RxNorm: 277110 Tablet(s) PO as directed 03/28/2012 Inactive Synthroid 75 mcg Tab RxNorm: 485175 1 Tablet(s) PO QD 02/14/201001/23 Inactive aspirin 81 mg tablet RxNorm: 715824 1 Tablet(s) PO QD 05/26/201509/2014 Inactive meclizine 25 mg tablet RxNorm: 666556 1 Tablet(s) PO TID as needed 11/26/2018 11/25/2018 Inactive metoprolol succinate ER 50 mg tablet,extended release 24 hr RxNorm: 892938 1 Tablet(s) PO QAM and 2 tablets in the evening 05/08/2019 05/07/2019 In active Aspirin 81 mg Tab RxNorm: 361332 1 Tablet(s) PO QD 03/31/2013 013 Inactive Vitamin D3 1,000 unit capsule RxNorm: 940617 1 Capsule(s) PO QD 04/201303/30/2013 Inactive Medication Administered No Medication Administered data Immunizations Vaccine Codes Dose Date Status Pneumococcal CVX: 133 0.5 ml 05/26/2015 Results Observation Observation Code Item Item Code Result Date S ervice Location GLYCOSYLATED HEMOGLOBIN TEST 08371 Hgb A1c 84011-4 6.0 % 0 03/01/2022 Unknown MEAN GLUC 2813815 Calc Mean Gluc 126 mg/dL 03/01/2022 Unkn own COMPREHENSIVE METABOLIC 53750 AST 16 U/L 2021 Unknown COMPREHENSIVE METABOLIC 74686 ALT 15 U/L 2021 Unknown COMPREHENSIVE METABOLIC 79448 BUN 18 mg/dL 2021 Unknown COMPREHENSIVE METABOLIC 95910 ALBUMIN 4.3 g/dL 2021 Unknown COMPREHENSIVE METABOLIC 18722 CHLORIDE 104 mmol/L 02/28 Unknown COMPREHENSIVE METABOLIC 60422 Bili Total 0.8 mg/dL 02/28 Unknown COMPREHENSIVE METABOLIC 31294 ALK PHOS 93 U/L 2021 Unknown COMPREHENSIVE METABOLIC 60329 SODIUM 143 mmol/L 02/28 Unknown COMPREHENSIVE METABOLIC 04286 CREATININE 0.82 mg/dL 03/2022 Unknown COMPREHENSIVE METABOLIC 26481 CALCIUM 9.8 mg/dL 2021 Unknown COMPREHENSIVE METABOLIC 42988 POTASSIUM 4.2 mmol/L 02/28 Unknown COMPREHENSIVE METABOLIC 38880 Total Protein 7.7 g/dL Unknown COMPREHENSIVE METABOLIC 64001 Glucose 116 mg/dL 2021 Unknown COMPREHENSIVE METABOLIC 01752 Bicarbonate 26 mmol/L 03/2022 Unknown COMPREHENSIVE METABOLIC 56192 AGAP 13 mmol/L 2021 Unknown FREE T4 14381 T4 Free 1.15 ng/dL 02/28/2022 Unknown THYROID STIMULATING HORMONE 16981 TSH 3.512 uIU/mL 02/28/2022 Unknown [facility] 22089 Cholesterol 158 mg/dL 02/28/2022 Unkno wn [facility] 14940 Triglyceride 78 mg/dL 02/28/2022 Unkn own [facility] 30622 HDL CHOLESTEROL 66 mg/dL 02/28/2022 U nknown [facility] 24112 Chol/HDL Ratio 2.39 ratio 02/28/2022 U nknown [facility] 92715 NON-HDL Chol 92 mg/dL 02/28/2022 Unkn own [facility] 42317 LDL Cholesterol 76 mg/dL 02/28/2022 U nknown COMPLETE BLOOD COUNT [id number] WBC 6.9 10e9/L 02/29/20 22 Unknown COMPLETE BLOOD COUNT [id number] RBC 4.61 10e12/L 2021 Unknown COMPLETE BLOOD COUNT [id number] HEMOGLOBIN 13.0 g/dL 02/29/20 22 Unknown COMPLETE BLOOD COUNT [id number] HEMATOCRIT 42.1 % 02/29/20 22 Unknown COMPLETE BLOOD COUNT [id number] MCV 91.3 fL 2 Unknown COMPLETE BLOOD COUNT [id number] MCH 28.2 pg 2 Unknown COMPLETE BLOOD COUNT [id number] MCHC 30.9 g/dL 2 Unknown COMPLETE BLOOD COUNT [id number] PLATELET COUNT 276 10e9/L 03/2022 Unknown COMPLETE BLOOD COUNT [id number] Mean Plt Volume 10.6 fL 03/2022 Unknown COMPLETE BLOOD COUNT [id number] Neut Auto 53.0 % 2 Unknown COMPLETE BLOOD COUNT [id number] NRBC Absolute 0.00 10e9/L 03/2022 Unknown COMPLETE BLOOD COUNT [id number] Lymph Auto 32.0 % 02/29/20 22 Unknown COMPLETE BLOOD COUNT [id number] NRBC/100 WBC 0.0 2021 Unknown COMPLETE BLOOD COUNT [id number] [place] Auto 11.0 % 2 Unknown COMPLETE BLOOD COUNT [id number] Eos Auto 2.5 % 2 Unknown COMPLETE BLOOD COUNT [id number] RDW 14.4 % 2 Unknown COMPLETE BLOOD COUNT [id number] Baso Auto 1.4 % 2 Unknown COMPLETE BLOOD COUNT [id number] Neutrophil Abs 3.66 10e9/L Unknown COMPLETE BLOOD COUNT [id number] Imm Gran Auto 0.1 % 02/28 Unknown COMPLETE BLOOD COUNT [id number] Lymphocyte Abs 2.21 10e9/L Unknown COMPLETE BLOOD COUNT [id number] Monocyte Abs 0.76 10e9/L 03/2022 Unknown COMPLETE BLOOD COUNT [id number] Eosinophil Abs 0.17 10e9/L Unknown COMPLETE BLOOD COUNT [id number] RDW-SD 47.8 fL 2 Unknown COMPLETE BLOOD COUNT [id number] Basophil Abs 0.10 10e9/L 03/2022 Unknown COMPLETE BLOOD COUNT [id number] Imm Gran Abs 0.01 10e9/L 03/2022 Unknown GFR CALC [id number] GFR >60 mL/min 02/28/2022 Unknown THYROID STIMULATING HORMONE 82152 TSH 3.017 uIU/mL 01/31/2021 Unknown COMPLETE BLOOD COUNT [id number] WBC 6.1 10e9/L 02/01/20 21 Unknown COMPLETE BLOOD COUNT [id number] RBC 4.22 10e12/L 2020 Unknown COMPLETE BLOOD COUNT [id number] HEMOGLOBIN 12.1 g/dL 02/01/20 21 Unknown COMPLETE BLOOD COUNT [id number] HEMATOCRIT 39.5 % 02/01/20 21 Unknown COMPLETE BLOOD COUNT [id number] MCV 93.6 fL 1 Unknown COMPLETE BLOOD COUNT [id number] MCH 28.7 pg 1 Unknown COMPLETE BLOOD COUNT [id number] MCHC 30.6 g/dL 1 Unknown COMPLETE BLOOD COUNT [id number] PLATELET COUNT 271 10e9/L 06/2021 Unknown COMPLETE BLOOD COUNT [id number] Mean Plt Volume 11.0 fL 06/2021 Unknown COMPLETE BLOOD COUNT [id number] Neut Auto 57.3 % 1 Unknown COMPLETE BLOOD COUNT [id number] Lymph Auto 28.3 % 02/01/20 21 Unknown COMPLETE BLOOD COUNT [id number] [place] Auto 10.9 % 1 Unknown COMPLETE BLOOD COUNT [id number] RDW 14.4 % 1 Unknown COMPLETE BLOOD COUNT [id number] Eos Auto 2.8 % 1 Unknown COMPLETE BLOOD COUNT [id number] Baso Auto 0.7 % 1 Unknown COMPLETE BLOOD COUNT [id number] Neutrophil Abs 3.50 10e9/L Unknown COMPLETE BLOOD COUNT [id number] Lymphocyte Abs 1.73 10e9/L Unknown COMPLETE BLOOD COUNT [id number] Monocyte Abs 0.66 10e9/L 01/22 Unknown COMPLETE BLOOD COUNT [id number] Eosinophil Abs 0.17 10e9/L Unknown COMPLETE BLOOD COUNT [id number] RDW-SD 47.4 fL 1 Unknown COMPLETE BLOOD COUNT [id number] Basophil Abs 0.04 10e9/L 01/22 Unknown GLYCOSYLATED HEMOGLOBIN TEST 99847 Hgb A1c 84253-8 5.9 % 0 01/31/2021 Unknown LIPID GROUP 16204 Cholesterol 151 mg/dL 01/31/2021 Unkno wn LIP[facility] GROUP 29579 Triglyceride 68 mg/dL 01/31/2021 Unkn own LIP[facility] GROUP 29200 HDL CHOLESTEROL 64 mg/dL 01/31/2021 U nknown LIPID GROUP 76438 Chol/HDL Ratio 2.36 ratio 01/31/2021 U nknown LIPID GROUP 65926 NON-HDL Chol 87 mg/dL 01/31/2021 Unkn own LIPID GROUP 03991 LDL Cholesterol 73 mg/dL 01/31/2021 U nknown MEAN GLUC [id number] Calc Mean Gluc 123 mg/dL 01/31/2021 Unkn own FREE T4 29208 T4 Free 1.11 ng/dL 01/31/2021 Unknown COMPREHENSIVE METABOLIC 16956 AST 16 U/L 2020 Unknown COMPREHENSIVE METABOLIC 16798 ALT 12 U/L 2020 Unknown COMPREHENSIVE METABOLIC 86195 BUN 14 mg/dL 2020 Unknown COMPREHENSIVE METABOLIC 35946 ALBUMIN 4.3 g/dL 2020 Unknown COMPREHENSIVE METABOLIC 57786 CHLORIDE 106 mmol/L 01/31 Unknown COMPREHENSIVE METABOLIC 28076 Bili Total 0.9 mg/dL 01/31 Unknown COMPREHENSIVE METABOLIC 23452 ALK PHOS 96 U/L 2020 Unknown COMPREHENSIVE METABOLIC 62283 SODIUM 144 mmol/L 01/31 Unknown COMPREHENSIVE METABOLIC 60191 CREATININE 0.77 mg/dL 01/22 Unknown COMPREHENSIVE METABOLIC 09972 CALCIUM 9.4 mg/dL 2020 Unknown COMPREHENSIVE METABOLIC 02060 POTASSIUM 4.2 mmol/L 01/31 Unknown COMPREHENSIVE METABOLIC 17691 Total Protein 7.4 g/dL Unknown COMPREHENSIVE METABOLIC 37386 Glucose 94 mg/dL 2020 Unknown COMPREHENSIVE METABOLIC 30651 Bicarbonate 30 mmol/L 01/22 Unknown COMPREHENSIVE METABOLIC 57651 AGAP 8 mmol/L 2020 Unknown GFR CALC 3632055 GFR Non Afr Amr >60 mL/min 01/31/2021 Un known GFR CALC [id number] GFR Afr Amr >60 mL/min 01/31/2021 Unknow n COMPLETE BLOOD COUNT [id number] WBC 6.9 10e9/L 01/05/20 20 Unknown COMPLETE BLOOD COUNT [id number] RBC 4.20 10e12/L 2019 Unknown COMPLETE BLOOD COUNT 5170025 HEMOGLOBIN 12.2 g/dL 01/05/20 20 Unknown COMPLETE BLOOD COUNT [id number] HEMATOCRIT 39.2 % 01/05/20 20 Unknown COMPLETE BLOOD COUNT [id number] MCV 93.3 fL 0 Unknown COMPLETE BLOOD COUNT [id number] MCH 29.0 pg 0 Unknown COMPLETE BLOOD COUNT [id number] MCHC 31.1 g/dL 0 Unknown COMPLETE BLOOD COUNT [id number] PLATELET COUNT 272 10e9/L Unknown COMPLETE BLOOD COUNT [id number] Mean Plt Volume 11.0 fL Unknown COMPLETE BLOOD COUNT [id number] Neut Auto 61.4 % 0 Unknown COMPLETE BLOOD COUNT [id number] Lymph Auto 22.4 % 01/05/20 20 Unknown COMPLETE BLOOD COUNT 6950030 [place] Auto 11.7 % 0 Unknown COMPLETE BLOOD COUNT 8931410 RDW 14.6 % 0 Unknown COMPLETE BLOOD COUNT [id number] Eos Auto 3.6 % 0 Unknown COMPLETE BLOOD COUNT 8078616 Baso Auto 0.9 % 0 Unknown COMPLETE BLOOD COUNT [id number] Neutrophil Abs 4.24 10e9/L Unknown COMPLETE BLOOD COUNT [id number] Lymphocyte Abs 1.55 10e9/L Unknown COMPLETE BLOOD COUNT [id number] Monocyte Abs 0.81 10e9/L 12/23 Unknown COMPLETE BLOOD COUNT [id number] Eosinophil Abs 0.25 10e9/L Unknown COMPLETE BLOOD COUNT [id number] RDW-SD 48.2 fL 0 Unknown COMPLETE BLOOD COUNT 7760006 Basophil Abs 0.06 10e9/L 12/23 Unknown COMPREHENSIVE METABOLIC 76343 AST 17 U/L 2019 Unknown COMPREHENSIVE METABOLIC 21086 ALT 12 U/L 2019 Unknown COMPREHENSIVE METABOLIC 05550 BUN 18 mg/dL 2019 Unknown COMPREHENSIVE METABOLIC 33157 ALBUMIN 4.5 g/dL 2019 Unknown COMPREHENSIVE METABOLIC 82158 CHLORIDE 101 mmol/L 01/04 Unknown COMPREHENSIVE METABOLIC 94714 Bili Total 0.8 mg/dL 01/04 Unknown COMPREHENSIVE METABOLIC 22120 ALK PHOS 76 U/L 2019 Unknown COMPREHENSIVE METABOLIC 44916 SODIUM 141 mmol/L 01/04 Unknown COMPREHENSIVE METABOLIC 14597 CREATININE 1.02 mg/dL 12/23 Unknown COMPREHENSIVE METABOLIC 59130 CALCIUM 9.5 mg/dL 2019 Unknown COMPREHENSIVE METABOLIC 96338 POTASSIUM 3.9 mmol/L 01/04 Unknown COMPREHENSIVE METABOLIC 88265 Total Protein 7.4 g/dL Unknown COMPREHENSIVE METABOLIC 93187 Glucose 89 mg/dL 2019 Unknown COMPREHENSIVE METABOLIC 87344 Bicarbonate 28 mmol/L 12/23 Unknown COMPREHENSIVE METABOLIC 42237 AGAP 12 mmol/L 2019 Unknown LIPASE 85096 Lipase Lvl 34 IU/L 01/05/2020 Unknown THYROID STIMULATING HORMONE 07330 TSH 3.767 uIU/mL 01/05/2020 Unknown AMYLASE 80329 Amylase Lvl 60 IU/L 01/05/2020 Unknown GFR CALC 1289654 GFR Non Afr Amr 52 mL/min 01/05/2020 Unk nown GFR CALC 3643737 GFR Afr Amr >60 mL/min 01/05/2020 Unknow n FREE T4 04060 T4 Free 1.11 ng/dL 01/05/2020 Unknown GFR CALC 0145458 GFR Non Afr Amr 59 mL/min 12/05/2019 Unk nown GFR CALC 7362213 GFR Afr Amr >60 mL/min 12/05/2019 Unknow n COMPREHENSIVE METABOLIC 68216 AST 15 U/L 2019 Unknown COMPREHENSIVE METABOLIC 39423 ALT 12 U/L 2019 Unknown COMPREHENSIVE METABOLIC 61035 BUN 19 mg/dL 2019 Unknown COMPREHENSIVE METABOLIC 90579 ALBUMIN 4.2 g/dL 2019 Unknown COMPREHENSIVE METABOLIC 07300 CHLORIDE 104 mmol/L 12/04 Unknown COMPREHENSIVE METABOLIC 92914 Bili Total 1.0 mg/dL 12/04 Unknown COMPREHENSIVE METABOLIC 52015 ALK PHOS 78 U/L 2019 Unknown COMPREHENSIVE METABOLIC 99175 SODIUM 145 mmol/L 12/04 Unknown COMPREHENSIVE METABOLIC 95689 CREATININE 0.91 mg/dL 11/22 Unknown COMPREHENSIVE METABOLIC 55647 CALCIUM 9.3 mg/dL 2019 Unknown COMPREHENSIVE METABOLIC 91632 POTASSIUM 3.6 mmol/L 12/04 Unknown COMPREHENSIVE METABOLIC 32852 Total Protein 7.0 g/dL Unknown COMPREHENSIVE METABOLIC 89283 Glucose 96 mg/dL 2019 Unknown COMPREHENSIVE METABOLIC 34594 Bicarbonate 28 mmol/L 11/22 Unknown COMPREHENSIVE METABOLIC 29270 AGAP 13 mmol/L 2019 Unknown COMPREHENSIVE METABOLIC 54808 AST 15 U/L 2019 Unknown COMPREHENSIVE METABOLIC 97728 ALT 11 U/L 2019 Unknown COMPREHENSIVE METABOLIC 86956 BUN 14 mg/dL 2019 Unknown COMPREHENSIVE METABOLIC 30469 ALBUMIN 4.3 g/dL 2019 Unknown COMPREHENSIVE METABOLIC 92233 CHLORIDE 106 mmol/L 11/05 Unknown COMPREHENSIVE METABOLIC 59075 Bili Total 0.7 mg/dL 11/05 Unknown COMPREHENSIVE METABOLIC 33716 ALK PHOS 80 U/L 2019 Unknown COMPREHENSIVE METABOLIC 46037 SODIUM 145 mmol/L 11/05 Unknown COMPREHENSIVE METABOLIC 08511 CREATININE 0.97 mg/dL 10/25 Unknown COMPREHENSIVE METABOLIC 38658 CALCIUM 9.5 mg/dL 2019 Unknown COMPREHENSIVE METABOLIC 41404 POTASSIUM 3.9 mmol/L 11/05 Unknown COMPREHENSIVE METABOLIC 80484 Total Protein 7.0 g/dL Unknown COMPREHENSIVE METABOLIC 89126 Glucose 103 mg/dL 2019 Unknown COMPREHENSIVE METABOLIC 18197 Bicarbonate 29 mmol/L 10/25 Unknown COMPREHENSIVE METABOLIC 42589 AGAP 10 mmol/L 2019 Unknown GFR CALC 1684305 GFR Non Afr Amr 55 mL/min 11/05/2019 Unk nown GFR CALC 2527709 GFR Afr Amr >60 mL/min 11/05/2019 Unknow n FREE T4 94620 T4 Free 1.34 ng/dL 10/21/2019 Unknown COMPLETE BLOOD COUNT 2078868 WBC 7.2 10e9/L 10/21/19 20 Unknown COMPLETE BLOOD COUNT [id number] RBC 4.17 10e12/L 2019 Unknown COMPLETE BLOOD COUNT [id number] HEMOGLOBIN 12.1 g/dL 10/21/19 20 Unknown COMPLETE BLOOD COUNT 3658515 HEMATOCRIT 39.0 % 10/21/19 20 Unknown COMPLETE BLOOD COUNT 7103333 MCV 93.5 fL 0 Unknown COMPLETE BLOOD COUNT [id number] MCH 29.0 pg 0 Unknown COMPLETE BLOOD COUNT 0797724 MCHC 31.0 g/dL 0 Unknown COMPLETE BLOOD COUNT 7745701 PLATELET COUNT 239 10e9/L Unknown COMPLETE BLOOD COUNT 0672667 Mean Plt Volume 11.7 fL Unknown COMPLETE BLOOD COUNT [id number] Neut Auto 63.7 % 0 Unknown COMPLETE BLOOD COUNT 5959689 Lymph Auto 21.0 % 10/21/19 20 Unknown COMPLETE BLOOD COUNT [id number] [place] Auto 11.1 % 0 Unknown COMPLETE BLOOD COUNT 4034286 Eos Auto 3.6 % 0 Unknown COMPLETE BLOOD COUNT [id number] RDW 13.6 % 0 Unknown COMPLETE BLOOD COUNT [id number] Baso Auto 0.6 % 0 Unknown COMPLETE BLOOD COUNT [id number] Neutrophil Abs 4.59 10e9/L Unknown COMPLETE BLOOD COUNT 7495989 Lymphocyte Abs 1.51 10e9/L Unknown COMPLETE BLOOD COUNT [id number] Monocyte Abs 0.80 10e9/L 09/25 Unknown COMPLETE BLOOD COUNT 7295666 Eosinophil Abs 0.26 10e9/L Unknown COMPLETE BLOOD COUNT 1024514 RDW-SD 45.1 fL 0 Unknown COMPLETE BLOOD COUNT [id number] Basophil Abs 0.04 10e9/L 09/25 Unknown GFR CALC 4193650 GFR Non Afr Amr 42 mL/min 10/21/2019 Unk nown GFR CALC 2434878 GFR Afr Amr 50 mL/min 10/21/2019 Unknown COMPREHENSIVE METABOLIC 32624 AST 16 U/L 2019 Unknown COMPREHENSIVE METABOLIC 81707 ALT 10 U/L 2019 Unknown COMPREHENSIVE METABOLIC 78489 BUN 20 mg/dL 2019 Unknown COMPREHENSIVE METABOLIC 67788 ALBUMIN 4.4 g/dL 2019 Unknown COMPREHENSIVE METABOLIC 64207 CHLORIDE 102 mmol/L 10/21 Unknown COMPREHENSIVE METABOLIC 00821 Bili Total 0.8 mg/dL 10/21 Unknown COMPREHENSIVE METABOLIC 63569 ALK PHOS 85 U/L 2019 Unknown COMPREHENSIVE METABOLIC 42762 SODIUM 144 mmol/L 10/21 Unknown COMPREHENSIVE METABOLIC 34904 CREATININE 1.24 mg/dL 09/25 Unknown COMPREHENSIVE METABOLIC 34131 CALCIUM 9.8 mg/dL 2019 Unknown COMPREHENSIVE METABOLIC 39221 POTASSIUM 4.2 mmol/L 10/21 Unknown COMPREHENSIVE METABOLIC 72426 Total Protein 7.3 g/dL Unknown COMPREHENSIVE METABOLIC 64455 Glucose 98 mg/dL 2019 Unknown COMPREHENSIVE METABOLIC 18829 Bicarbonate 31 mmol/L 09/25 Unknown COMPREHENSIVE METABOLIC 96605 AGAP 11 mmol/L 2019 Unknown THYROID STIMULATING HORMONE 46560 TSH 2.693 uIU/mL 10/21/2019 Unknown LIPID GROUP 96542 Cholesterol 142 mg/dL 10/21/2019 Unkno wn LIPID GROUP 28753 Triglyceride 120 mg/dL 10/21/2019 Unkn own LIPID GROUP 53944 HDL CHOLESTEROL 54 mg/dL 10/21/2019 U nknown LIPID GROUP 93133 Chol/HDL Ratio 2.63 ratio 10/21/2019 U nknown LIPID GROUP 99617 NON-HDL Chol 88 mg/dL 10/21/2019 Unkn own LIPID GROUP 49947 LDL Cholesterol 64 mg/dL 10/21/2019 U nknown GFR CALC 0345601 GFR Non Afr Amr >60 mL/min 04/04/2019 Un known GFR CALC 0047938 GFR Afr Amr >60 mL/min 04/04/2019 Unknow n COMPLETE BLOOD COUNT 1624914 WBC 5.9 10e9/L 04/04/20 19 Unknown COMPLETE BLOOD COUNT [id number] RBC 4.29 10e12/L 2018 Unknown COMPLETE BLOOD COUNT 5807458 HEMOGLOBIN 12.3 g/dL 04/04/20 19 Unknown COMPLETE BLOOD COUNT 3965537 HEMATOCRIT 39.2 % 04/04/20 19 Unknown COMPLETE BLOOD COUNT 8270711 MCV 91.4 fL 9 Unknown COMPLETE BLOOD COUNT 9512523 MCH 28.7 pg 9 Unknown COMPLETE BLOOD COUNT 1305567 MCHC 31.4 g/dL 9 Unknown COMPLETE BLOOD COUNT 2006079 PLATELET COUNT 225 10e9/L 08/2019 Unknown COMPLETE BLOOD COUNT 7720448 Mean Plt Volume 11.0 fL 08/2019 Unknown COMPLETE BLOOD COUNT 8352569 Neut Auto 57.2 % 9 Unknown COMPLETE BLOOD COUNT 5778990 Lymph Auto 27.3 % 04/04/20 19 Unknown COMPLETE BLOOD COUNT 7586273 [place] Auto 11.2 % 9 Unknown COMPLETE BLOOD COUNT 9735056 RDW 14.3 % 9 Unknown COMPLETE BLOOD COUNT 2320379 Eos Auto 3.4 % 9 Unknown COMPLETE BLOOD COUNT 3536930 Baso Auto 0.9 % 9 Unknown COMPLETE BLOOD COUNT 5822700 Neutrophil Abs 3.37 10e9/L Unknown COMPLETE BLOOD COUNT 3399608 Lymphocyte Abs 1.61 10e9/L Unknown COMPLETE BLOOD COUNT 5758109 Monocyte Abs 0.66 10e9/L 03/24 Unknown COMPLETE BLOOD COUNT [id number] Eosinophil Abs 0.20 10e9/L Unknown COMPLETE BLOOD COUNT 1588666 Basophil Abs 0.05 10e9/L 03/24 Unknown COMPLETE BLOOD COUNT [id number] RDW-SD 46.6 fL 9 Unknown THYROID STIMULATING HORMONE 31635 TSH 2.068 uIU/mL 04/04/2019 Unknown COMPREHENSIVE METABOLIC 86917 AST 17 U/L 2018 Unknown COMPREHENSIVE METABOLIC 76057 ALT 12 U/L 2018 Unknown COMPREHENSIVE METABOLIC 70235 BUN 17 mg/dL 2018 Unknown COMPREHENSIVE METABOLIC 79058 ALBUMIN 4.3 g/dL 2018 Unknown COMPREHENSIVE METABOLIC 61207 CHLORIDE 107 mmol/L 04/04 Unknown COMPREHENSIVE METABOLIC 93672 Bili Total 1.1 mg/dL 04/04 Unknown COMPREHENSIVE METABOLIC 26766 ALK PHOS 74 U/L 2018 Unknown COMPREHENSIVE METABOLIC 21037 SODIUM 144 mmol/L 04/04 Unknown COMPREHENSIVE METABOLIC 97661 CREATININE 0.70 mg/dL 03/24 Unknown COMPREHENSIVE METABOLIC 66091 CALCIUM 9.5 mg/dL 2018 Unknown COMPREHENSIVE METABOLIC 86213 POTASSIUM 4.1 mmol/L 04/04 Unknown COMPREHENSIVE METABOLIC 07001 Total Protein 6.8 g/dL Unknown COMPREHENSIVE METABOLIC 19708 Glucose 95 mg/dL 2018 Unknown COMPREHENSIVE METABOLIC 37622 Bicarbonate 29 mmol/L 03/24 Unknown COMPREHENSIVE METABOLIC 66374 AGAP 8 mmol/L 2018 Unknown FREE T4 81483 T4 Free 1.09 ng/dL 04/04/2019 Unknown LIPID GROUP 85365 Cholesterol 149 mg/dL 04/04/2019 Unkno wn LIPID GROUP 89949 Triglyceride 70 mg/dL 04/04/2019 Unkn own LIPID GROUP 89288 HDL CHOLESTEROL 62 mg/dL 04/04/2019 U nknown LIPID GROUP 82146 Chol/HDL Ratio 2.40 ratio 04/04/2019 U nknown LIPID GROUP 61353 NON-HDL Chol 87 mg/dL 04/04/2019 Unkn own LIPID GROUP 42055 LDL Cholesterol 73 mg/dL 04/04/2019 U nknown THYROID STIMULATING HORMONE 98877 TSH 3.698 uIU/mL 10/08/2018 Unknown FREE T4 81836 T4 Free 1.24 ng/dL 10/08/2018 Unknown GFR CALC 6995483 GFR Non Afr Amr >60 mL/min 10/07/2018 Un known GFR CALC 1403691 GFR Afr Amr >60 mL/min 10/07/2018 Unknow n COMPLETE BLOOD COUNT 4301265 WBC 6.3 10e9/L 10/07/19 19 Unknown COMPLETE BLOOD COUNT 3018745 RBC 4.22 10e12/L 2018 Unknown COMPLETE BLOOD COUNT 1563519 HEMOGLOBIN 12.2 g/dL 10/07/19 19 Unknown COMPLETE BLOOD COUNT 0683681 HEMATOCRIT 39.4 % 10/07/19 19 Unknown COMPLETE BLOOD COUNT 5741976 MCV 93.4 fL 9 Unknown COMPLETE BLOOD COUNT 4343557 MCH 28.9 pg 9 Unknown COMPLETE BLOOD COUNT 5143578 MCHC 31.0 g/dL 9 Unknown COMPLETE BLOOD COUNT 1430838 PLATELET COUNT 231 10e9/L Unknown COMPLETE BLOOD COUNT 9353571 Mean Plt Volume 11.2 fL Unknown COMPLETE BLOOD COUNT 5296955 Neut Auto 55.7 % 9 Unknown COMPLETE BLOOD COUNT 8534168 Lymph Auto 30.3 % 10/07/19 19 Unknown COMPLETE BLOOD COUNT 3357734 [place] Auto 9.6 % 9 Unknown COMPLETE BLOOD COUNT 6324007 RDW 14.0 % 9 Unknown COMPLETE BLOOD COUNT 7210880 Eos Auto 3.5 % 9 Unknown COMPLETE BLOOD COUNT 3398949 Baso Auto 0.9 % 9 Unknown COMPLETE BLOOD COUNT 1498585 Neutrophil Abs 3.51 10e9/L Unknown COMPLETE BLOOD COUNT 0640652 Lymphocyte Abs 1.91 10e9/L Unknown COMPLETE BLOOD COUNT 5881777 Monocyte Abs 0.60 10e9/L 09/24 Unknown COMPLETE BLOOD COUNT 1153815 Eosinophil Abs 0.22 10e9/L Unknown COMPLETE BLOOD COUNT 6302847 Basophil Abs 0.06 10e9/L 09/24 Unknown COMPLETE BLOOD COUNT 2611610 RDW-SD 46.1 fL 9 Unknown COMPREHENSIVE METABOLIC 93614 AST 14 U/L 2018 Unknown COMPREHENSIVE METABOLIC 81604 ALT 10 U/L 2018 Unknown COMPREHENSIVE METABOLIC 47953 BUN 21 mg/dL 2018 Unknown COMPREHENSIVE METABOLIC 16518 ALBUMIN 4.4 g/dL 2018 Unknown COMPREHENSIVE METABOLIC 72911 CHLORIDE 105 mmol/L 10/07 Unknown COMPREHENSIVE METABOLIC 29096 Bili Total 0.7 mg/dL 10/07 Unknown COMPREHENSIVE METABOLIC 43953 ALK PHOS 80 U/L 2018 Unknown COMPREHENSIVE METABOLIC 59481 SODIUM 143 mmol/L 10/07 Unknown COMPREHENSIVE METABOLIC 92147 CREATININE 0.67 mg/dL 09/24 Unknown COMPREHENSIVE METABOLIC 07986 CALCIUM 9.3 mg/dL 2018 Unknown COMPREHENSIVE METABOLIC 69131 POTASSIUM 3.8 mmol/L 10/07 Unknown COMPREHENSIVE METABOLIC 50444 Total Protein 7.0 g/dL Unknown COMPREHENSIVE METABOLIC 93504 Glucose 98 mg/dL 2018 Unknown COMPREHENSIVE METABOLIC 78586 Bicarbonate 32 mmol/L 09/24 Unknown COMPREHENSIVE METABOLIC 40926 AGAP 6 mmol/L 2018 Unknown LIPID GROUP 47927 Cholesterol 160 mg/dL 10/07/2018 Unkno wn LIPID GROUP 54945 Triglyceride 101 mg/dL 10/07/2018 Unkn own LIPID GROUP 71601 HDL CHOLESTEROL 63 mg/dL 10/07/2018 U nknown LIPID GROUP 19494 Chol/HDL Ratio 2.54 ratio 10/07/2018 U nknown LIPID GROUP 79091 NON-HDL Chol 97 mg/dL 10/07/2018 Unkn own LIPID GROUP 62654 LDL Cholesterol 77 mg/dL 10/07/2018 U nknown MEAN GLUC 6075067 Calc Mean Gluc 114 mg/dL 10/07/2018 Unkn own GLYCOSYLATED HEMOGLOBIN TEST 65736 Hgb A1c 92613-8 5.6 % 0 10/07/2018 Unknown FREE T4 62033 T4 Free 1.21 ng/dL 02/14/2018 Unknown THYROID STIMULATING HORMONE 38063 TSH 2.977 uIU/mL 02/14/2018 Unknown COMPLETE BLOOD COUNT 9740253 WBC 5.6 10e9/L 02/14/20 18 Unknown COMPLETE BLOOD COUNT 7249186 RBC 4.23 10e12/L 2017 Unknown COMPLETE BLOOD COUNT 1876305 HEMOGLOBIN 12.4 g/dL 02/14/20 18 Unknown COMPLETE BLOOD COUNT 7517713 HEMATOCRIT 39.1 % 02/14/20 18 Unknown COMPLETE BLOOD COUNT 2273704 MCV 92.4 fL 8 Unknown COMPLETE BLOOD COUNT 7650555 MCH 29.3 pg 8 Unknown COMPLETE BLOOD COUNT 9877885 MCHC 31.7 g/dL 8 Unknown COMPLETE BLOOD COUNT 9031074 PLATELET COUNT 268 10e9/L Unknown COMPLETE BLOOD COUNT 5850155 Mean Plt Volume 11.0 fL Unknown COMPLETE BLOOD COUNT 9160350 Neut Auto 52.1 % 8 Unknown COMPLETE BLOOD COUNT 5781818 Lymph Auto 32.0 % 02/14/20 18 Unknown COMPLETE BLOOD COUNT 1377126 [place] Auto 11.8 % 8 Unknown COMPLETE BLOOD COUNT 1318629 Eos Auto 3.2 % 8 Unknown COMPLETE BLOOD COUNT 4733984 RDW 14.6 % 8 Unknown COMPLETE BLOOD COUNT 3075688 Baso Auto 0.9 % 8 Unknown COMPLETE BLOOD COUNT 7900047 Neutrophil Abs 2.92 10e9/L Unknown COMPLETE BLOOD COUNT 8932513 Lymphocyte Abs 1.79 10e9/L Unknown COMPLETE BLOOD COUNT 1315120 Monocyte Abs 0.66 10e9/L 01/23 Unknown COMPLETE BLOOD COUNT 0532081 Eosinophil Abs 0.18 10e9/L Unknown COMPLETE BLOOD COUNT 2116734 RDW-SD 48.2 fL 8 Unknown COMPLETE BLOOD COUNT 6447998 Basophil Abs 0.05 10e9/L 01/23 Unknown GFR CALC 4763540 GFR Non Afr Amr >60 mL/min 02/13/2018 Un known GFR CALC 4531061 GFR Afr Amr >60 mL/min 02/13/2018 Unknow n COMPREHENSIVE METABOLIC 58689 AST 18 U/L 2017 Unknown COMPREHENSIVE METABOLIC 83813 ALT 13 U/L 2017 Unknown COMPREHENSIVE METABOLIC 42565 BUN 14 mg/dL 2017 Unknown COMPREHENSIVE METABOLIC 95550 ALBUMIN 4.3 g/dL 2017 Unknown COMPREHENSIVE METABOLIC 97341 CHLORIDE 108 mmol/L 02/13 Unknown COMPREHENSIVE METABOLIC 97508 Bili Total 0.8 mg/dL 02/13 Unknown COMPREHENSIVE METABOLIC 05772 ALK PHOS 82 U/L 2017 Unknown COMPREHENSIVE METABOLIC 00326 SODIUM 144 mmol/L 02/13 Unknown COMPREHENSIVE METABOLIC 31005 CREATININE 0.67 mg/dL 01/23 Unknown COMPREHENSIVE METABOLIC 03697 CALCIUM 9.4 mg/dL 2017 Unknown COMPREHENSIVE METABOLIC 98664 POTASSIUM 4.1 mmol/L 02/13 Unknown COMPREHENSIVE METABOLIC 30975 Total Protein 6.9 g/dL Unknown COMPREHENSIVE METABOLIC 07831 Glucose 103 mg/dL 2017 Unknown COMPREHENSIVE METABOLIC 24048 Bicarbonate 27 mmol/L 01/23 Unknown COMPREHENSIVE METABOLIC 99479 AGAP 9 mmol/L 2017 Unknown LIPID GROUP 00402 Cholesterol 169 mg/dL 10/15/2017 Unkno wn LIPID GROUP 77943 Triglyceride 99 mg/dL 10/15/2017 Unkn own LIPID GROUP 26467 HDL CHOLESTEROL 69 10/15/2017 U nknown LIPID GROUP 26557 Chol/HDL Ratio 2.45 ratio 10/15/2017 U nknown LIPID GROUP 05414 NON-HDL Chol 100 mg/dL 10/15/2017 Unkn own LIPID GROUP 86524 LDL Cholesterol 80 mg/dL 10/15/2017 U nknown COMPREHENSIVE METABOLIC 56573 AST 17 U/L 2017 Unknown COMPREHENSIVE METABOLIC 52832 ALT 13 U/L 2017 Unknown COMPREHENSIVE METABOLIC 07202 BUN 22 mg/dL 2017 Unknown COMPREHENSIVE METABOLIC 89873 ALBUMIN 4.5 g/dL 2017 Unknown COMPREHENSIVE METABOLIC 34272 CHLORIDE 99 mmol/L 2017 Unknown COMPREHENSIVE METABOLIC 39183 Bili Total 0.8 mg/dL 10/15 Unknown COMPREHENSIVE METABOLIC 49328 ALK PHOS 78 U/L 2017 Unknown COMPREHENSIVE METABOLIC 31566 SODIUM 150 mmol/L 10/15 Unknown COMPREHENSIVE METABOLIC 08156 CREATININE 0.73 mg/dL 09/25 Unknown COMPREHENSIVE METABOLIC 65599 CALCIUM 9.5 mg/dL 2017 Unknown COMPREHENSIVE METABOLIC 04214 POTASSIUM 4.2 mmol/L 10/15 Unknown COMPREHENSIVE METABOLIC 63067 Total Protein 7.2 g/dL Unknown COMPREHENSIVE METABOLIC 62335 Glucose 96 mg/dL 2017 Unknown COMPREHENSIVE METABOLIC 72578 Bicarbonate 29 mmol/L 09/25 Unknown COMPREHENSIVE METABOLIC 62504 AGAP 22 mmol/L 2017 Unknown GFR CALC 3595157 GFR Non Afr Amr >60 mL/min 10/15/2017 Un known GFR CALC 7191089 GFR Afr Amr >60 mL/min 10/15/2017 Unknow n THYROID STIMULATING HORMONE 38385 TSH 4.502 uIU/mL 10/15/2017 Unknown FREE T4 62209 T4 Free 1.44 ng/dL 10/15/2017 Unknown VITAMIN B 12 00665 VITAMIN B12 698 pg/mL 10/15/2017 Unkn own COMPLETE BLOOD COUNT 6907126 WBC 6.3 10e9/L 10/15/19 18 Unknown COMPLETE BLOOD COUNT 5105501 RBC 4.37 10e12/L 2017 Unknown COMPLETE BLOOD COUNT 8961907 HEMOGLOBIN 12.6 g/dL 10/15/19 18 Unknown COMPLETE BLOOD COUNT 2956662 HEMATOCRIT 40.3 % 10/15/19 18 Unknown COMPLETE BLOOD COUNT 3325039 MCV 92.2 fL 8 Unknown COMPLETE BLOOD COUNT 1219191 MCH 28.8 pg 8 Unknown COMPLETE BLOOD COUNT 9055664 MCHC 31.3 g/dL 8 Unknown COMPLETE BLOOD COUNT 0835024 PLATELET COUNT 256 10e9/L Unknown COMPLETE BLOOD COUNT 7179804 Mean Plt Volume 11.1 fL Unknown COMPLETE BLOOD COUNT 4967373 Neut Auto 54.8 % 8 Unknown COMPLETE BLOOD COUNT 1744192 Lymph Auto 30.5 % 10/15/19 18 Unknown COMPLETE BLOOD COUNT 1678947 [place] Auto 10.4 % 8 Unknown COMPLETE BLOOD COUNT 5288645 RDW 14.0 % 8 Unknown COMPLETE BLOOD COUNT 6390537 Eos Auto 3.8 % 8 Unknown COMPLETE BLOOD COUNT 9334749 Baso Auto 0.5 % 8 Unknown COMPLETE BLOOD COUNT 7029472 Neutrophil Abs 3.45 10e9/L Unknown COMPLETE BLOOD COUNT 7583059 Lymphocyte Abs 1.92 10e9/L Unknown COMPLETE BLOOD COUNT 8110092 Monocyte Abs 0.66 10e9/L 09/25 Unknown COMPLETE BLOOD COUNT 2331980 Eosinophil Abs 0.24 10e9/L Unknown COMPLETE BLOOD COUNT 2579600 Basophil Abs 0.03 10e9/L 09/25 Unknown COMPLETE BLOOD COUNT 3035379 RDW-SD 46.1 fL 8 Unknown VITAMIN B 12 62137 VITAMIN B12 823 pg/mL 03/30/2017 Unkn own VITAMIN B 12 59190 VITAMIN B12 321 pg/mL 12/18/2016 Unkn own COMPLETE BLOOD COUNT 7468968 WBC 6.8 10e9/L 12/12/19 17 Unknown COMPLETE BLOOD COUNT [id number] RBC 4.37 10e12/L 2016 Unknown COMPLETE BLOOD COUNT 9599961 HEMOGLOBIN 12.5 g/dL 12/12/19 17 Unknown COMPLETE BLOOD COUNT 1855882 HEMATOCRIT 39.3 % 12/12/19 17 Unknown COMPLETE BLOOD COUNT 6826162 MCV 89.9 fL 7 Unknown COMPLETE BLOOD COUNT 9173047 MCH 28.6 pg 7 Unknown COMPLETE BLOOD COUNT 4613550 MCHC 31.8 g/dL 7 Unknown COMPLETE BLOOD COUNT 5216096 PLATELET COUNT 248 10e9/L Unknown COMPLETE BLOOD COUNT 3724322 Mean Plt Volume 10.9 fL Unknown COMPLETE BLOOD COUNT 2168800 Neut Auto 52.0 % 7 Unknown COMPLETE BLOOD COUNT 3701941 Lymph Auto 33.4 % 12/12/19 17 Unknown COMPLETE BLOOD COUNT 9167701 [place] Auto 10.1 % 7 Unknown COMPLETE BLOOD COUNT 1935923 RDW 14.6 % 7 Unknown COMPLETE BLOOD COUNT 6172015 Eos Auto 3.8 % 7 Unknown COMPLETE BLOOD COUNT 2953459 Baso Auto 0.7 % 7 Unknown COMPLETE BLOOD COUNT 2732905 Neutrophil Abs 3.54 10e9/L Unknown COMPLETE BLOOD COUNT 8632956 Lymphocyte Abs 2.27 10e9/L Unknown COMPLETE BLOOD COUNT 1657977 Monocyte Abs 0.69 10e9/L 11/23 Unknown COMPLETE BLOOD COUNT 5300534 Eosinophil Abs 0.26 10e9/L Unknown COMPLETE BLOOD COUNT 5037078 Basophil Abs 0.05 10e9/L 11/23 Unknown COMPLETE BLOOD COUNT 8468882 RDW-SD 47.4 fL 7 Unknown COMPREHENSIVE METABOLIC 12278 AST 16 U/L 2016 Unknown COMPREHENSIVE METABOLIC 81685 ALT 12 U/L 2016 Unknown COMPREHENSIVE METABOLIC 81348 BUN 22 mg/dL 2016 Unknown COMPREHENSIVE METABOLIC 55174 ALBUMIN 4.2 g/dL 2016 Unknown COMPREHENSIVE METABOLIC 43198 CHLORIDE 104 mmol/L 12/11 Unknown COMPREHENSIVE METABOLIC 83314 Bili Total 0.7 mg/dL 12/11 Unknown COMPREHENSIVE METABOLIC 37953 ALK PHOS 78 U/L 2016 Unknown COMPREHENSIVE METABOLIC 73107 SODIUM 143 mmol/L 12/11 Unknown COMPREHENSIVE METABOLIC 90758 CREATININE 0.69 mg/dL 11/23 Unknown COMPREHENSIVE METABOLIC 83224 CALCIUM 9.5 mg/dL 2016 Unknown COMPREHENSIVE METABOLIC 23592 POTASSIUM 3.9 mmol/L 12/11 Unknown COMPREHENSIVE METABOLIC 12486 Total Protein 7.1 g/dL Unknown COMPREHENSIVE METABOLIC 92625 Glucose 103 mg/dL 2016 Unknown COMPREHENSIVE METABOLIC 39665 Bicarbonate 30 mmol/L 11/23 Unknown COMPREHENSIVE METABOLIC 87961 AGAP 9 mmol/L 2016 Unknown GFR CALC 7883995 GFR Afr Amr >60 mL/min 12/11/2016 Unknow n GFR CALC 3567254 GFR Non Afr Amr >60 mL/min 12/11/2016 Un known MEAN GLUC 2929568 Calc Mean Gluc 120 mg/dL 12/11/2016 Unkn own LIPID GROUP 32857 Cholesterol 162 mg/dL 12/11/2016 Unkno wn LIPID GROUP 66028 Triglyceride 80 mg/dL 12/11/2016 Unkn own LIPID GROUP 73984 HDL CHOLESTEROL 65 mg/dL 12/11/2016 U nknown LIPID GROUP 56935 Chol/HDL Ratio 2.49 ratio 12/11/2016 U nknown LIPID GROUP 94553 NON-HDL Chol 97 mg/dL 12/11/2016 Unkn own LIPID GROUP 09907 LDL Cholesterol 81 mg/dL 12/11/2016 U nknown FREE T4 27365 T4 Free 1.46 ng/dL 12/11/2016 Unknown THYROID STIMULATING HORMONE 25690 TSH 2.578 uIU/mL 12/11/2016 Unknown GLYCOSYLATED HEMOGLOBIN TEST 62331 Hgb A1c 78947-6 5.8 % 0 12/11/2016 Unknown FREE T4 27915 FREE T4 1.68 NG/DL 05/27/2015 Unknown LIPID GROUP 31683 HDL TEST 67 MG/DL 05/27/2015 Unknown LIPID GROUP 14069 TRIG 92 MG/DL 05/27/2015 Unknown LIPID GROUP 86951 TEST LDL 84 MG/DL 05/27/2015 Unknown LIPID GROUP 41058 CHOL 169 MG/DL 05/27/2015 Unknown LIPID GROUP 22558 RCHOL/HDL 2.52 RATIO 05/27/2015 Unknow n LIPID GROUP 34951 NON-HDL CH 102 MG/DL 05/27/2015 Unknow n GLYCOSYLATED HEMOGLOBIN TEST 38560 A1C HPLC 33926-1 5.9 % 0 05/27/2015 Unknown VITAMIN B 12 63175 VIT B 12 308 PG/ML 05/27/2015 Unknow n GFR CALC 8633370 GFR AA >60 ML/MIN 05/27/2015 Unknown GFR CALC 8930789 GFR NON-AA >60 ML/MIN 05/27/2015 Unknown COMPREHENSIVE METABOLIC 78681 AST 20 U/L 2014 Unknown COMPREHENSIVE METABOLIC 51344 ALT 15 IU/L 2014 Unknown COMPREHENSIVE METABOLIC 23359 BUN 17 MG/DL 2014 Unknown COMPREHENSIVE METABOLIC 31579 ALBUMIN 4.3 GM/DL 2014 Unknown COMPREHENSIVE METABOLIC 82218 CHLORIDE 107 MMOL/L 05/27 Unknown COMPREHENSIVE METABOLIC 09910 BILI TOT 0.9 MG/DL 2014 Unknown COMPREHENSIVE METABOLIC 57991 ALK PHOS 85 U/L 2014 Unknown COMPREHENSIVE METABOLIC 44560 SODIUM 144 MMOL/L 05/27 Unknown COMPREHENSIVE METABOLIC 48345 CREATININE 0.76 MG/DL 11/2014 Unknown COMPREHENSIVE METABOLIC 42944 CALCIUM 9.5 MG/DL 2014 Unknown COMPREHENSIVE METABOLIC 67737 POTASSIUM 4.2 MMOL/L 05/27 Unknown COMPREHENSIVE METABOLIC 07910 PROT TOT 7.1 GM/DL 2014 Unknown COMPREHENSIVE METABOLIC 12722 Glucose 95 MG/DL 2014 Unknown COMPREHENSIVE METABOLIC 22843 BICARB 30 MMOL/L 2014 Unknown COMPREHENSIVE METABOLIC 89596 ANION GAP 7 MEQ/L 2014 Unknown COMPLETE BLOOD COUNT 2470702 WBC 6.5 10e9/L 05/27/20 15 Unknown COMPLETE BLOOD COUNT 8532003 RBC 4.35 10e12/L 2014 Unknown COMPLETE BLOOD COUNT 3784528 HGB 12.4 g/dL 5 Unknown COMPLETE BLOOD COUNT 8633159 HCT DET 39.3 % 5 Unknown COMPLETE BLOOD COUNT 0960314 MCV 90.3 fL 5 Unknown COMPLETE BLOOD COUNT 0398349 MCH 28.5 pg 5 Unknown COMPLETE BLOOD COUNT 5543597 MCHC 31.6 g/dL 5 Unknown COMPLETE BLOOD COUNT 2098574 PLT 245 10e9/L 05/27/20 15 Unknown COMPLETE BLOOD COUNT 7994640 MPV 11.1 fL 5 Unknown COMPLETE BLOOD COUNT 9576722 CRISTI % 53.9 % 5 Unknown COMPLETE BLOOD COUNT 8448585 LY % 30.8 % 5 Unknown COMPLETE BLOOD COUNT 4729673 MON % 11.2 % 5 Unknown COMPLETE BLOOD COUNT 0187527 EOS % 3.2 % 5 Unknown COMPLETE BLOOD COUNT 4828120 BASO % 0.9 % 5 Unknown COMPLETE BLOOD COUNT 3386682 RDW 14.5 % 5 Unknown COMPLETE BLOOD COUNT [id number] ABS CRISTI 3.50 10e9/L 015 Unknown COMPLETE BLOOD COUNT [id number] ABS LYMPH 2.00 10e9/L 015 Unknown COMPLETE BLOOD COUNT [id number] ABS MONO 0.73 10e9/L 015 Unknown COMPLETE BLOOD COUNT [id number] ABS EOS 0.21 10e9/L 015 Unknown COMPLETE BLOOD COUNT [id number] ABS BASO 0.06 10e9/L 015 Unknown COMPLETE BLOOD COUNT [id number] RDW-SD 46.3 fL 5 Unknown THYROID STIMULATING HORMONE [id number] TSH 2.909 uIU/ML 05/27/2015 Unknown IRON [id number] IRON TEST 63 UG/DL 12/15/2014 Unknown COMPLETE BLOOD COUNT [id number] WBC 6.3 10e9/L 12/16/19 15 Unknown COMPLETE BLOOD COUNT [id number] RBC 4.37 10e12/L 2014 Unknown COMPLETE BLOOD COUNT [id number] HGB 12.6 g/dL 5 Unknown COMPLETE BLOOD COUNT [id number] HCT DET 39.2 % 5 Unknown COMPLETE BLOOD COUNT [id number] MCV 89.7 fL 5 Unknown COMPLETE BLOOD COUNT [id number] MCH 28.8 pg 5 Unknown COMPLETE BLOOD COUNT [id number] MCHC 32.1 g/dL 5 Unknown COMPLETE BLOOD COUNT [id number] PLT 252 10e9/L 12/16/19 15 Unknown COMPLETE BLOOD COUNT [id number] MPV 10.8 fL 5 Unknown COMPLETE BLOOD COUNT [id number] CRISTI % 60.5 % 5 Unknown COMPLETE BLOOD COUNT [id number] LY % 24.4 % 5 Unknown COMPLETE BLOOD COUNT [id number] MON % 11.8 % 5 Unknown COMPLETE BLOOD COUNT [id number] EOS % 2.7 % 5 Unknown COMPLETE BLOOD COUNT [id number] BASO % 0.6 % 5 Unknown COMPLETE BLOOD COUNT [id number] RDW 14.0 % 5 Unknown COMPLETE BLOOD COUNT [id number] ABS CRISTI 3.81 10e9/L 015 Unknown COMPLETE BLOOD COUNT [id number] ABS LYMPH 1.54 10e9/L 015 Unknown COMPLETE BLOOD COUNT [id number] ABS MONO 0.74 10e9/L 015 Unknown COMPLETE BLOOD COUNT [id number] ABS EOS 0.17 10e9/L 015 Unknown COMPLETE BLOOD COUNT [id number] ABS BASO 0.04 10e9/L 015 Unknown COMPLETE BLOOD COUNT [id number] RDW-SD 44.6 fL 5 Unknown GFR CALC [id number] GFR AA >60 ML/MIN 11/26/2014 Unknown GFR CALC [id number] GFR NON-AA >60 ML/MIN 11/26/2014 Unknown COMPREHENSIVE METABOLIC 36134 AST 16 U/L 2014 Unknown COMPREHENSIVE METABOLIC 06064 ALT 15 IU/L 2014 Unknown COMPREHENSIVE METABOLIC 94996 BUN 21 MG/DL 2014 Unknown COMPREHENSIVE METABOLIC 99606 ALBUMIN 4.4 GM/DL 2014 Unknown COMPREHENSIVE METABOLIC 64432 CHLORIDE 106 MMOL/L 11/26 Unknown COMPREHENSIVE METABOLIC 59303 BILI TOT 0.9 MG/DL 2014 Unknown COMPREHENSIVE METABOLIC 95007 ALK PHOS 83 U/L 2014 Unknown COMPREHENSIVE METABOLIC 36382 SODIUM 141 MMOL/L 11/26 Unknown COMPREHENSIVE METABOLIC 23905 CREATININE 0.68 MG/DL 01/2015 Unknown COMPREHENSIVE METABOLIC 75041 CALCIUM 9.4 MG/DL 2014 Unknown COMPREHENSIVE METABOLIC 89174 POTASSIUM 3.8 MMOL/L 11/26 Unknown COMPREHENSIVE METABOLIC 45358 PROT TOT 7.2 GM/DL 2014 Unknown COMPREHENSIVE METABOLIC 98769 Glucose 100 MG/DL 2014 Unknown COMPREHENSIVE METABOLIC 45995 BICARB 29 MMOL/L 2014 Unknown COMPREHENSIVE METABOLIC 50297 ANION GAP 6 MEQ/L 2014 Unknown LIPID GROUP 38227 HDL TEST 72 MG/DL 11/26/2014 Unknown LIPID GROUP 84083 TRIG 101 MG/DL 11/26/2014 Unknown LIPID GROUP 59347 TEST LDL 82 MG/DL 11/26/2014 Unknown LIPID GROUP 19294 CHOL 174 MG/DL 11/26/2014 Unknown LIPID GROUP 17363 RCHOL/HDL 2.42 RATIO 11/26/2014 Unknow n LIPID GROUP 15555 NON-HDL CH 102 MG/DL 11/26/2014 Unknow n GFR CALC 5981551 GFR AA >60 ML/MIN 08/14/2014 Unknown GFR CALC 2173674 GFR NON-AA >60 ML/MIN 08/14/2014 Unknown THYROID STIMULATING HORMONE 43304 TSH 2.261 uIU/ML 08/14/2014 Unknown COMPLETE BLOOD COUNT 1425218 WBC 5.8 10e9/L 08/14/20 14 Unknown COMPLETE BLOOD COUNT [id number] RBC 4.33 10e12/L 2013 Unknown COMPLETE BLOOD COUNT 0136676 HGB 12.5 g/dL 4 Unknown COMPLETE BLOOD COUNT 9554574 HCT DET 39.2 % 4 Unknown COMPLETE BLOOD COUNT 1200018 MCV 90.5 fL 4 Unknown COMPLETE BLOOD COUNT 8821631 MCH 28.9 pg 4 Unknown COMPLETE BLOOD COUNT 6957316 MCHC 31.9 g/dL 4 Unknown COMPLETE BLOOD COUNT 5369334 PLT 260 10e9/L 08/14/20 14 Unknown COMPLETE BLOOD COUNT 1121791 MPV 10.9 fL 4 Unknown COMPLETE BLOOD COUNT 7881593 CRISTI % 52.9 % 4 Unknown COMPLETE BLOOD COUNT 2934429 LY % 31.0 % 4 Unknown COMPLETE BLOOD COUNT 6675154 MON % 11.3 % 4 Unknown COMPLETE BLOOD COUNT 6985666 EOS % 3.6 % 4 Unknown COMPLETE BLOOD COUNT 5870131 BASO % 1.2 % 4 Unknown COMPLETE BLOOD COUNT 0026299 RDW 13.9 % 4 Unknown COMPLETE BLOOD COUNT [id number] ABS CRISTI 3.07 10e9/L 014 Unknown COMPLETE BLOOD COUNT 2258081 ABS LYMPH 1.80 10e9/L 014 Unknown COMPLETE BLOOD COUNT 7679256 ABS MONO 0.66 10e9/L 014 Unknown COMPLETE BLOOD COUNT [id number] ABS EOS 0.21 10e9/L 014 Unknown COMPLETE BLOOD COUNT [id number] ABS BASO 0.07 10e9/L 11/21/2 014 Unknown COMPLETE BLOOD COUNT [id number] RDW-SD 44.8 fL 08/14/201 4 Unknown COMPREHENSIVE METABOLIC 75628 AST 15 U/L 2013 Unknown COMPREHENSIVE METABOLIC 67742 ALT 13 IU/L 2013 Unknown COMPREHENSIVE METABOLIC 89210 BUN 18 MG/DL 2013 Unknown COMPREHENSIVE METABOLIC 90100 ALBUMIN 4.4 GM/DL 2013 Unknown COMPREHENSIVE METABOLIC 41854 CHLORIDE 105 MMOL/L 08/14 Unknown COMPREHENSIVE METABOLIC 61716 BILI TOT 1.0 MG/DL 2013 Unknown COMPREHENSIVE METABOLIC 85260 ALK PHOS 88 U/L 2013 Unknown COMPREHENSIVE METABOLIC 03382 SODIUM 143 MMOL/L 08/14 Unknown COMPREHENSIVE METABOLIC 57465 CREATININE 0.70 MG/DL 07/26 Unknown COMPREHENSIVE METABOLIC 98860 CALCIUM 9.6 MG/DL 2013 Unknown COMPREHENSIVE METABOLIC 96995 POTASSIUM 3.9 MMOL/L 08/14 Unknown COMPREHENSIVE METABOLIC 93710 PROT TOT 7.0 GM/DL 2013 Unknown COMPREHENSIVE METABOLIC 29782 Glucose 100 MG/DL 2013 Unknown COMPREHENSIVE METABOLIC 66494 BICARB 31 MMOL/L 2013 Unknown COMPREHENSIVE METABOLIC 53792 ANION GAP 7 MEQ/L 2013 Unknown FREE T4 51465 FREE T4 1.59 NG/DL 08/14/2014 Unknown LIPID GROUP 62522 HDL TEST 66 MG/DL 08/14/2014 Unknown LIPID GROUP 39242 TRIG 106 MG/DL 08/14/2014 Unknown LIPID GROUP 51495 TEST LDL 152 MG/DL 08/14/2014 Unknown LIPID GROUP 40831 CHOL 239 MG/DL 08/14/2014 Unknown LIPID GROUP 30207 RCHOL/HDL 3.62 RATIO 08/14/2014 Unknow n LIPID GROUP 34516 NON-HDL CH 173 MG/DL 08/14/2014 Unknow n COMPREHENSIVE METABOLIC 75298 AST 16 U/L 2013 Unknown COMPREHENSIVE METABOLIC 42070 ALT 13 IU/L 2013 Unknown COMPREHENSIVE METABOLIC 17447 BUN 20 MG/DL 2013 Unknown COMPREHENSIVE METABOLIC 53950 ALBUMIN 4.4 GM/DL 2013 Unknown COMPREHENSIVE METABOLIC 08931 CHLORIDE 104 MMOL/L 02/04 Unknown COMPREHENSIVE METABOLIC 84571 BILI TOT 0.8 MG/DL 2013 Unknown COMPREHENSIVE METABOLIC 01330 ALK PHOS 79 U/L 2013 Unknown COMPREHENSIVE METABOLIC 89512 SODIUM 141 MMOL/L 02/04 Unknown COMPREHENSIVE METABOLIC 47285 CREATININE 0.73 MG/DL 01/22 Unknown COMPREHENSIVE METABOLIC 33053 CALCIUM 9.6 MG/DL 2013 Unknown COMPREHENSIVE METABOLIC 11776 POTASSIUM 4.0 MMOL/L 02/04 Unknown COMPREHENSIVE METABOLIC 11823 PROT TOT 7.2 GM/DL 2013 Unknown COMPREHENSIVE METABOLIC 13528 Glucose 96 MG/DL 2013 Unknown COMPREHENSIVE METABOLIC 84151 BICARB 31 MMOL/L 2013 Unknown COMPREHENSIVE METABOLIC 08131 ANION GAP 6 MEQ/L 2013 Unknown GFR CALC 7503586 GFR AA >60 ML/MIN 02/04/2014 Unknown GFR CALC 8946492 GFR NON-AA >60 ML/MIN 02/04/2014 Unknown FREE T4 11603 FREE T4 1.59 NG/DL 02/04/2014 Unknown COMPLETE BLOOD COUNT 8854071 WBC 5.9 10e9/L 02/05/20 14 Unknown COMPLETE BLOOD COUNT [id number] RBC 4.37 10e12/L 2013 Unknown COMPLETE BLOOD COUNT 1661028 HGB 12.6 g/dL 4 Unknown COMPLETE BLOOD COUNT 7853788 HCT DET 39.0 % 4 Unknown COMPLETE BLOOD COUNT 2687204 MCV 89.2 fL 4 Unknown COMPLETE BLOOD COUNT 3951495 MCH 28.8 pg 4 Unknown COMPLETE BLOOD COUNT 7513338 MCHC 32.3 g/dL 4 Unknown COMPLETE BLOOD COUNT 0241944 PLT 265 10e9/L 02/05/20 14 Unknown COMPLETE BLOOD COUNT 5800043 MPV 10.8 fL 4 Unknown COMPLETE BLOOD COUNT 1443952 CRISTI % 55.5 % 4 Unknown COMPLETE BLOOD COUNT 1482579 LY % 30.8 % 4 Unknown COMPLETE BLOOD COUNT 0925698 MON % 10.0 % 4 Unknown COMPLETE BLOOD COUNT [id number] EOS % 2.7 % 4 Unknown COMPLETE BLOOD COUNT 0900643 BASO % 1.0 % 4 Unknown COMPLETE BLOOD COUNT 7882083 RDW 14.2 % 4 Unknown COMPLETE BLOOD COUNT [id number] ABS CRISTI 3.27 10e9/L 014 Unknown COMPLETE BLOOD COUNT 9236716 ABS LYMPH 1.82 10e9/L 014 Unknown COMPLETE BLOOD COUNT 8153275 ABS MONO 0.59 10e9/L 014 Unknown COMPLETE BLOOD COUNT 4004914 ABS EOS 0.16 10e9/L 014 Unknown COMPLETE BLOOD COUNT 0117617 ABS BASO 0.06 10e9/L 014 Unknown COMPLETE BLOOD COUNT 6224003 RDW-SD 45.2 fL 4 Unknown LIPID GROUP 11622 HDL TEST 69 MG/DL 02/04/2014 Unknown LIPID GROUP 84775 TRIG 121 MG/DL 02/04/2014 Unknown LIPID GROUP 55702 TEST LDL 144 MG/DL 02/04/2014 Unknown LIPID GROUP 38404 CHOL 237 MG/DL 02/04/2014 Unknown LIPID GROUP 01667 RCHOL/HDL 3.43 RATIO 02/04/2014 Unknow n THYROID STIMULATING HORMONE 97710 TSH 2.310 uIU/ML 02/04/2014 Unknown THYROID STIMULATING HORMONE 69825 TSH 2.429 uIU/ML 03/18/2012 Unknown COMPREHENSIVE METABOLIC 13334 AST 17 U/L 2011 Unknown COMPREHENSIVE METABOLIC 59681 ALT 15 IU/L 2011 Unknown COMPREHENSIVE METABOLIC 07062 BUN 17 MG/DL 2011 Unknown COMPREHENSIVE METABOLIC 87602 ALBUMIN 4.1 GM/DL 2011 Unknown COMPREHENSIVE METABOLIC 15599 CHLORIDE 108 MMOL/L 03/18 Unknown COMPREHENSIVE METABOLIC 69412 BILI TOT 0.7 MG/DL 2011 Unknown COMPREHENSIVE METABOLIC 39659 ALK PHOS 79 U/L 2011 Unknown COMPREHENSIVE METABOLIC 66583 SODIUM 144 MMOL/L 03/18 Unknown COMPREHENSIVE METABOLIC 63000 CREATININE 0.68 MG/DL 02/23 Unknown COMPREHENSIVE METABOLIC 98416 CALCIUM 9.0 MG/DL 2011 Unknown COMPREHENSIVE METABOLIC 13029 POTASSIUM 3.7 MMOL/L 03/18 Unknown COMPREHENSIVE METABOLIC 08279 PROT TOT 6.6 GM/DL 2011 Unknown COMPREHENSIVE METABOLIC 80459 Glucose 99 MG/DL 2011 Unknown COMPREHENSIVE METABOLIC 64322 BICARB 28 MMOL/L 2011 Unknown COMPREHENSIVE METABOLIC 97944 ANION GAP 8 MEQ/L 2011 Unknown LIPID GROUP 87806 HDL TEST 65 MG/DL 03/18/2012 Unknown LIPID GROUP 46580 TRIG 86 MG/DL 03/18/2012 Unknown LIPID GROUP 31904 TEST LDL 153 MG/DL 03/18/2012 Unknown LIPID GROUP 94294 CHOL 235 MG/DL 03/18/2012 Unknown LIPID GROUP 45536 RCHOL/HDL 3.62 RATIO 03/18/2012 Unknow n GFR CALC 9159467 GFR AA >60 ML/MIN 03/18/2012 Unknown GFR CALC 6902497 GFR NON-AA >60 ML/MIN 03/18/2012 Unknown COMPLETE BLOOD COUNT 30330 WBC 5.1 10e9/L 03/18/20 12 Unknown COMPLETE BLOOD COUNT 41465 RBC 4.32 10e12/L 2011 Unknown COMPLETE BLOOD COUNT 79002 HGB 12.4 g/dL 2 Unknown COMPLETE BLOOD COUNT 09429 HCT DET 38.4 % 2 Unknown COMPLETE BLOOD COUNT 59487 MCV 88.9 fL 2 Unknown COMPLETE BLOOD COUNT 97675 MCH 28.7 pg 2 Unknown COMPLETE BLOOD COUNT 05216 MCHC 32.3 g/dL 2 Unknown COMPLETE BLOOD COUNT 55808 PLT 245 10e9/L 03/18/20 12 Unknown COMPLETE BLOOD COUNT 40975 MPV 10.7 fL 2 Unknown COMPLETE BLOOD COUNT 35781 CRISTI % 52.9 % 2 Unknown COMPLETE BLOOD COUNT 99152 LY % 31.5 % 2 Unknown COMPLETE BLOOD COUNT 36409 MON % 12.3 % 2 Unknown COMPLETE BLOOD COUNT 07737 EOS % 2.9 % 2 Unknown COMPLETE BLOOD COUNT 76863 BASO % 0.4 % 2 Unknown COMPLETE BLOOD COUNT 18138 RDW 13.9 % 2 Unknown COMPLETE BLOOD COUNT 44198 ABS CRISTI 2.70 10e9/L 012 Unknown COMPLETE BLOOD COUNT 94755 ABS LYMPH 1.61 10e9/L 012 Unknown COMPLETE BLOOD COUNT 14884 ABS MONO 0.63 10e9/L 012 Unknown COMPLETE BLOOD COUNT 29671 ABS EOS 0.15 10e9/L 012 Unknown COMPLETE BLOOD COUNT 33383 ABS BASO 0.02 10e9/L 012 Unknown COMPLETE BLOOD COUNT 55739 RDW-SD 44.5 fL 2 Unknown FREE T4 35963 FREE T4 1.50 NG/DL 03/18/2012 Unknown LIPID GROUP 29373 HDL TEST 61 MG/DL 07/13/2011 Unknown LIPID GROUP 96798 TRIG 158 MG/DL 07/13/2011 Unknown LIPID GROUP 07145 TEST LDL 131 MG/DL 07/13/2011 Unknown LIPID GROUP 27114 CHOL 224 MG/DL 07/13/2011 Unknown LIPID GROUP 41030 RCHOL/HDL 3.67 RATIO 07/13/2011 Unknow n COMPREHENSIVE METABOLIC 38784 AST 19 U/L 2010 Unknown COMPREHENSIVE METABOLIC 64073 ALT 17 IU/L 2010 Unknown COMPREHENSIVE METABOLIC 45035 BUN 14 MG/DL 2010 Unknown COMPREHENSIVE METABOLIC 42991 ALBUMIN 4.2 GM/DL 2010 Unknown COMPREHENSIVE METABOLIC 00949 CHLORIDE 105 MMOL/L 07/13 Unknown COMPREHENSIVE METABOLIC 35731 BILI TOT 0.9 MG/DL 2010 Unknown COMPREHENSIVE METABOLIC 14310 ALK PHOS 71 U/L 2010 Unknown COMPREHENSIVE METABOLIC 00310 SODIUM 141 MMOL/L 07/13 Unknown COMPREHENSIVE METABOLIC 81682 CREATININE 0.68 MG/DL 06/25 Unknown COMPREHENSIVE METABOLIC 62282 CALCIUM 9.3 MG/DL 2010 Unknown COMPREHENSIVE METABOLIC 58398 POTASSIUM 3.8 MMOL/L 07/13 Unknown COMPREHENSIVE METABOLIC 02066 PROT TOT 6.5 GM/DL 2010 Unknown COMPREHENSIVE METABOLIC 84689 Glucose 94 MG/DL 2010 Unknown COMPREHENSIVE METABOLIC 25100 BICARB 28 MMOL/L 2010 Unknown COMPREHENSIVE METABOLIC 76035 ANION GAP 8 MEQ/L 2010 Unknown COMPLETE BLOOD COUNT 82622 WBC 5.4 10e9/L 07/13/20 11 Unknown COMPLETE BLOOD COUNT 59776 RBC 4.20 10e12/L 2010 Unknown COMPLETE BLOOD COUNT 39135 HGB 12.4 g/dL 1 Unknown COMPLETE BLOOD COUNT 37271 HCT DET 37.6 % 1 Unknown COMPLETE BLOOD COUNT 15397 MCV 89.5 fL 1 Unknown COMPLETE BLOOD COUNT 51180 MCH 29.5 pg 1 Unknown COMPLETE BLOOD COUNT 65720 MCHC 33.0 g/dL 1 Unknown COMPLETE BLOOD COUNT 26085 PLT 273 10e9/L 07/13/20 11 Unknown COMPLETE BLOOD COUNT 61085 MPV 10.7 fL 1 Unknown COMPLETE BLOOD COUNT 34154 CRISTI % 49.9 % 1 Unknown COMPLETE BLOOD COUNT 60294 LY % 35.9 % 1 Unknown COMPLETE BLOOD COUNT 36356 MON % 10.4 % 1 Unknown COMPLETE BLOOD COUNT 14128 EOS % 2.9 % 1 Unknown COMPLETE BLOOD COUNT 41371 BASO % 0.9 % 1 Unknown COMPLETE BLOOD COUNT 26319 RDW 13.8 % 1 Unknown COMPLETE BLOOD COUNT 19187 ABS CRISTI 2.69 10e9/L 011 Unknown COMPLETE BLOOD COUNT 27435 ABS LYMPH 1.94 10e9/L 011 Unknown COMPLETE BLOOD COUNT 73631 ABS MONO 0.56 10e9/L 011 Unknown COMPLETE BLOOD COUNT 99302 ABS EOS 0.16 10e9/L 011 Unknown COMPLETE BLOOD COUNT 86362 ABS BASO 0.05 10e9/L 011 Unknown COMPLETE BLOOD COUNT 53366 RDW-SD 44.4 fL 1 Unknown GFR CALC 5168109 GFR AA >60 ML/MIN 07/13/2011 Unknown GFR CALC 8698991 GFR NON-AA >60 ML/MIN 07/13/2011 Unknown FREE T4 21791 FREE T4 1.36 NG/DL 07/13/2011 Unknown THYROID STIMULATING HORMONE 68746 TSH 4.261 uIU/ML 07/13/2011 Unknown GFR CALC 7767070 GFR AA >60 ML/MIN 03/13/2011 Unknown GFR CALC 0217801 GFR NON-AA >60 ML/MIN 03/13/2011 Unknown LIPID GROUP 43727 HDL TEST 60 MG/DL 03/13/2011 Unknown LIPID GROUP 67073 TRIG 140 MG/DL 03/13/2011 Unknown LIPID GROUP 49746 TEST LDL 122 MG/DL 03/13/2011 Unknown LIPID GROUP 76416 CHOL 210 MG/DL 03/13/2011 Unknown LIPID GROUP 08900 RCHOL/HDL 3.50 RATIO 03/13/2011 Unknow n FREE T4 08610 FREE T4 1.36 NG/DL 03/13/2011 Unknown THYROID STIMULATING HORMONE 80221 TSH 7.688 uIU/ML 03/13/2011 Unknown COMPREHENSIVE METABOLIC 49631 AST 17 U/L 2010 Unknown COMPREHENSIVE METABOLIC 70271 ALT 12 IU/L 2010 Unknown COMPREHENSIVE METABOLIC 35667 BUN 19 MG/DL 2010 Unknown COMPREHENSIVE METABOLIC 74099 ALBUMIN 4.3 GM/DL 2010 Unknown COMPREHENSIVE METABOLIC 66212 CHLORIDE 105 MMOL/L 03/13 Unknown COMPREHENSIVE METABOLIC 88495 BILI TOT 0.6 MG/DL 2010 Unknown COMPREHENSIVE METABOLIC 68099 ALK PHOS 68 U/L 2010 Unknown COMPREHENSIVE METABOLIC 80113 SODIUM 139 MMOL/L 03/13 Unknown COMPREHENSIVE METABOLIC 30262 CREATININE 0.77 MG/DL 02/23 Unknown COMPREHENSIVE METABOLIC 86286 CALCIUM 9.2 MG/DL 2010 Unknown COMPREHENSIVE METABOLIC 82478 POTASSIUM 3.8 MMOL/L 03/13 Unknown COMPREHENSIVE METABOLIC 36185 PROT TOT 6.9 GM/DL 2010 Unknown COMPREHENSIVE METABOLIC 59478 Glucose 97 MG/DL 2010 Unknown COMPREHENSIVE METABOLIC 34024 BICARB 25 MMOL/L 2010 Unknown COMPREHENSIVE METABOLIC 91558 ANION GAP 9 MEQ/L 2010 Unknown FREE T4 33573 FREE T4 1.32 NG/DL 12/16/2010 Unknown COMPLETE BLOOD COUNT 74967 WBC 5.6 10e9/L 12/17/19 11 Unknown COMPLETE BLOOD COUNT 13515 RBC 4.38 10e12/L 2010 Unknown COMPLETE BLOOD COUNT 40359 HGB 12.5 g/dL 1 Unknown COMPLETE BLOOD COUNT 36600 HCT DET 38.7 % 1 Unknown COMPLETE BLOOD COUNT 96389 MCV 88.4 fL 1 Unknown COMPLETE BLOOD COUNT 26016 MCH 28.5 pg 1 Unknown COMPLETE BLOOD COUNT 18096 MCHC 32.3 g/dL 1 Unknown COMPLETE BLOOD COUNT 08947 PLT 249 10e9/L 12/17/19 11 Unknown COMPLETE BLOOD COUNT 15603 MPV 10.5 fL 1 Unknown COMPLETE BLOOD COUNT 50938 CRISTI % 52.8 % 1 Unknown COMPLETE BLOOD COUNT 34073 LY % 33.3 % 1 Unknown COMPLETE BLOOD COUNT 92808 MON % 9.8 % 1 Unknown COMPLETE BLOOD COUNT 91495 EOS % 3.4 % 1 Unknown COMPLETE BLOOD COUNT 69265 BASO % 0.7 % 1 Unknown COMPLETE BLOOD COUNT 28638 RDW 14.2 % 1 Unknown COMPLETE BLOOD COUNT 53805 ABS CRISTI 2.96 10e9/L 011 Unknown COMPLETE BLOOD COUNT 92180 ABS LYMPH 1.86 10e9/L 011 Unknown COMPLETE BLOOD COUNT 98472 ABS MONO 0.55 10e9/L 011 Unknown COMPLETE BLOOD COUNT 54860 ABS EOS 0.19 10e9/L 011 Unknown COMPLETE BLOOD COUNT 66766 ABS BASO 0.04 10e9/L 011 Unknown COMPLETE BLOOD COUNT 81908 RDW-SD 45.1 fL 1 Unknown GFR CALC 4632708 GFR AA >60 ML/MIN 12/16/2010 Unknown GFR CALC 7081239 GFR NON-AA >60 ML/MIN 12/16/2010 Unknown THYROID STIMULATING HORMONE 37421 TSH 7.082 uIU/ML 12/16/2010 Unknown COMPREHENSIVE METABOLIC 71120 AST 21 U/L 2010 Unknown COMPREHENSIVE METABOLIC 99709 ALT 18 IU/L 2010 Unknown COMPREHENSIVE METABOLIC 18435 BUN 22 MG/DL 2010 Unknown COMPREHENSIVE METABOLIC 66513 ALBUMIN 4.6 GM/DL 2010 Unknown COMPREHENSIVE METABOLIC 00766 CHLORIDE 102 MMOL/L 12/16 Unknown COMPREHENSIVE METABOLIC 36728 BILI TOT 0.6 MG/DL 2010 Unknown COMPREHENSIVE METABOLIC 58901 ALK PHOS 72 U/L 2010 Unknown COMPREHENSIVE METABOLIC 38558 SODIUM 140 MMOL/L 12/16 Unknown COMPREHENSIVE METABOLIC 46598 CREATININE 0.73 MG/DL 11/23 Unknown COMPREHENSIVE METABOLIC 40980 CALCIUM 9.4 MG/DL 2010 Unknown COMPREHENSIVE METABOLIC 30078 POTASSIUM 4.2 MMOL/L 12/16 Unknown COMPREHENSIVE METABOLIC 44553 PROT TOT 7.1 GM/DL 2010 Unknown COMPREHENSIVE METABOLIC 66921 Glucose 88 MG/DL 2010 Unknown COMPREHENSIVE METABOLIC 67217 BICARB 30 MMOL/L 2010 Unknown COMPREHENSIVE METABOLIC 58508 ANION GAP 8 MEQ/L 2010 Unknown LIPID GROUP 67554 HDL TEST 66 MG/DL 12/16/2010 Unknown LIPID GROUP 25176 TRIG 154 MG/DL 12/16/2010 Unknown LIPID GROUP 16714 TEST LDL 128 MG/DL 12/16/2010 Unknown LIPID GROUP 24183 CHOL 225 MG/DL 12/16/2010 Unknown LIPID GROUP 86638 RCHOL/HDL 3.41 RATIO 12/16/2010 Unknow n Procedures Procedure Codes Date ROUTINE VENIPUNCTURE CPT-4: 09554 02/28/2022 RML ASSAY OF FREE THYROXINE CPT-4: 27294 02/28/2022 RML ASSAY THYROID STIM HORMONE CPT-4: 72168 RML COMPREHEN METABOLIC PANEL CPT-4: 07787 02/28/2022 RML COMPLETE CBC W/AUTO DIFF WBC CPT-4: 28986 022 RML LIPID PANEL CPT-4: 52977 02/28/2022 RML A1C HPLC CPT-4: 60261 02/28/2022 SARSCOV & INF VIR A&B AG IA CPT-4: 24885 08/09/2021 CLEAR OUTER EAR CANAL CPT-4: 96533 08/09/2021 ROUTINE VENIPUNCTURE CPT-4: 17376 07/20/2021 RML ASSAY OF FREE THYROXINE CPT-4: 77330 07/20/2021 RML ASSAY THYROID STIM HORMONE CPT-4: 56224 RML COMPREHEN METABOLIC PANEL CPT-4: 09762 07/20/2021 RML COMPLETE CBC W/AUTO DIFF WBC CPT-4: 69535 021 RML A1C HPLC CPT-4: 54826 07/20/2021 DESTRUCT B9 LESION 1-14 CPT-4: 58408 05/12/2021 THER/PROPH/DIAG INJ SC/IM CPT-4: 34322 03/08/2021 TRIAMCINOLONE ACET INJ NOS CPT-4: J3301 03/08/2021 ROUTINE VENIPUNCTURE CPT-4: 54673 01/31/2021 RML COMPREHEN METABOLIC PANEL CPT-4: 07814 01/31/2021 RML COMPLETE CBC W/AUTO DIFF WBC CPT-4: 96791 021 RML LIPID PANEL CPT-4: 30492 01/31/2021 RML ASSAY OF FREE THYROXINE CPT-4: 21284 01/31/2021 RML ASSAY THYROID STIM HORMONE CPT-4: 16559 1 RML A1C HPLC CPT-4: 50092 01/31/2021 EXC TR-EXT B9+JOSE G 0.5 CM< CPT-4: 31260 05/19/2020 PPPS, subseq visit CPT-4: G0439 05/11/2020 ROUTINE VENIPUNCTURE CPT-4: 76271 05/05/2020 RML ASSAY OF FREE THYROXINE CPT-4: 03662 05/05/2020 RML ASSAY THYROID STIM HORMONE CPT-4: 18699 0 RML COMPREHEN METABOLIC PANEL CPT-4: 33599 05/05/2020 RML COMPLETE CBC W/AUTO DIFF WBC CPT-4: 23830 020 RML LIPID PANEL CPT-4: 00436 05/05/2020 RML A1C HPLC CPT-4: 68014 05/05/2020 THER/PROPH/DIAG INJ SC/IM CPT-4: 41005 01/28/2020 TRIAMCINOLONE ACET INJ NOS CPT-4: J3301 01/28/2020 ROUTINE VENIPUNCTURE CPT-4: 42731 01/05/2020 RML ASSAY OF FREE THYROXINE CPT-4: 06944 01/05/2020 RML ASSAY THYROID STIM HORMONE CPT-4: 73949 0 RML COMPREHEN METABOLIC PANEL CPT-4: 32542 01/05/2020 RML COMPLETE CBC W/AUTO DIFF WBC CPT-4: 87771 020 ASSAY OF AMYLASE CPT-4: 79493 01/05/2020 ASSAY OF LIPASE CPT-4: 79166 01/05/2020 ROUTINE VENIPUNCTURE CPT-4: 44522 12/05/2019 RML COMPREHEN METABOLIC PANEL CPT-4: 52019 12/05/2019 ROUTINE VENIPUNCTURE CPT-4: 24884 11/05/2019 RML COMPREHEN METABOLIC PANEL CPT-4: 89597 11/05/2019 URINALYSIS NONAUTO W/O SCOPE CPT-4: 70341 10/23/2019 URINE CULTURE/ COLONY COUNT CPT-4: 08152 10/23/2019 ROUTINE VENIPUNCTURE CPT-4: 68559 10/21/2019 RML ASSAY OF FREE THYROXINE CPT-4: 75407 10/21/2019 RML ASSAY THYROID STIM HORMONE CPT-4: 72468 0 RML COMPREHEN METABOLIC PANEL CPT-4: 24481 10/21/2019 RML COMPLETE CBC W/AUTO DIFF WBC CPT-4: 62719 020 RML LIPID PANEL CPT-4: 88738 10/21/2019 HYDRATION IV INFUSION INIT CPT-4: 77855 10/20/2019 Removal impacted cerumen using irrigation/lavage, unilateral CPT-4: 44031 10/20/2019 ROUTINE VENIPUNCTURE CPT-4: 15975 04/04/2019 RML COMPLETE CBC W/AUTO DIFF WBC CPT-4: 89436 019 RML COMPREHEN METABOLIC PANEL CPT-4: 50415 04/04/2019 RML ASSAY THYROID STIM HORMONE CPT-4: 83500 9 RML ASSAY OF FREE THYROXINE CPT-4: 82459 04/04/2019 RML LIPID PANEL CPT-4: 11425 04/04/2019 PPPS, subseq visit CPT-4: G0439 11/26/2018 ROUTINE VENIPUNCTURE CPT-4: 93046 10/07/2018 RML ASSAY THYROID STIM HORMONE CPT-4: 92757 9 RML ASSAY OF FREE THYROXINE CPT-4: 04756 10/07/2018 RML COMPREHEN METABOLIC PANEL CPT-4: 08024 10/07/2018 RML COMPLETE CBC W/AUTO DIFF WBC CPT-4: 61499 019 RML LIPID PANEL CPT-4: 90430 10/07/2018 RML A1C HPLC CPT-4: 89775 10/07/2018 CERUM REMOVAL CPT-4: 69345 06/25/2018 THER/PROPH/DIAG INJ SC/IM CPT-4: 44432 05/03/2018 TRIAMCINOLONE ACET INJ NOS CPT-4: J3301 05/03/2018 Removal impacted cerumen using irrigation/lavage, unilateral CPT-4: 72459 02/19/2018 ROUTINE VENIPUNCTURE CPT-4: 13530 02/13/2018 RML ASSAY OF FREE THYROXINE CPT-4: 16410 02/13/2018 RML ASSAY THYROID STIM HORMONE CPT-4: 87603 8 RML COMPREHEN METABOLIC PANEL CPT-4: 10014 02/13/2018 RML COMPLETE CBC W/AUTO DIFF WBC CPT-4: 52561 018 ROUTINE VENIPUNCTURE CPT-4: 28068 10/15/2017 RML ASSAY OF FREE THYROXINE CPT-4: 75681 10/15/2017 RML ASSAY THYROID STIM HORMONE CPT-4: 22444 8 RML COMPREHEN METABOLIC PANEL CPT-4: 65741 10/15/2017 RML COMPLETE CBC W/AUTO DIFF WBC CPT-4: 53810 018 RML LIPID PANEL CPT-4: 70236 10/15/2017 VITAMIN B-12 CPT-4: 39289 10/15/2017 CERUM REMOVAL CPT-4: 65263 07/24/2017 ROUTINE VENIPUNCTURE CPT-4: 85652 03/30/2017 VITAMIN B-12 CPT-4: 20484 03/30/2017 ROUTINE VENIPUNCTURE CPT-4: 39844 12/18/2016 VITAMIN B-12 CPT-4: 77276 12/18/2016 PPPS, subseq visit CPT-4: G0439 12/18/2016 ROUTINE VENIPUNCTURE CPT-4: 15895 12/11/2016 RML ASSAY OF FREE THYROXINE CPT-4: 92206 12/11/2016 RML ASSAY THYROID STIM HORMONE CPT-4: 13614 7 RML COMPREHEN METABOLIC PANEL CPT-4: 50419 12/11/2016 RML COMPLETE CBC W/AUTO DIFF WBC CPT-4: 32947 017 RML LIPID PANEL CPT-4: 97008 12/11/2016 RML A1C HPLC CPT-4: 51959 12/11/2016 URINALYSIS NONAUTO W/O SCOPE CPT-4: 68050 02/07/2016 ROUTINE VENIPUNCTURE CPT-4: 34541 05/27/2015 RML ASSAY OF FREE THYROXINE CPT-4: 16615 05/27/2015 RML ASSAY THYROID STIM HORMONE CPT-4: 72953 5 RML COMPREHEN METABOLIC PANEL CPT-4: 16250 05/27/2015 RML COMPLETE CBC W/AUTO DIFF WBC CPT-4: 25511 015 RML LIPID PANEL CPT-4: 73138 05/27/2015 VITAMIN B-12 CPT-4: 42678 05/27/2015 RML A1C HPLC CPT-4: 22523 05/27/2015 PNEUMOCOCCAL VACC 13 LEN IM CPT-4: 34376 05/26/2015 ADMIN PNEUMOCOCCAL VACCINE CPT-4: G0009 05/26/2015 CUR TOBACCO NON-USER CPT-4: G8457 05/26/2015 OCCULT BLOOD FECES CPT-4: 69014 02/19/2015 OCCULT BLOOD FECES CPT-4: 08714 01/20/2015 ROUTINE VENIPUNCTURE CPT-4: 58511 12/15/2014 ASSAY OF IRON CPT-4: 87352 12/15/2014 RML COMPLETE CBC W/AUTO DIFF WBC CPT-4: 21704 015 CERUM REMOVAL CPT-4: 46825 11/30/2014 PRESCRIP TRANSMIT VIA ERX SY CPT-4: G8553 11/30/2014 ROUTINE VENIPUNCTURE CPT-4: 85696 11/26/2014 RML COMPREHEN METABOLIC PANEL CPT-4: 30769 11/26/2014 RML LIPID PANEL CPT-4: 77397 11/26/2014 ROUTINE VENIPUNCTURE CPT-4: 54827 08/14/2014 RML ASSAY OF FREE THYROXINE CPT-4: 45186 08/14/2014 RML ASSAY THYROID STIM HORMONE CPT-4: 56597 4 RML COMPREHEN METABOLIC PANEL CPT-4: 70763 08/14/2014 RML COMPLETE CBC W/AUTO DIFF WBC CPT-4: 51176 014 RML LIPID PANEL CPT-4: 77792 08/14/2014 PRESCRIP TRANSMIT VIA ERX SY CPT-4: G8553 07/23/2014 PRESCRIP TRANSMIT VIA ERX SY CPT-4: G8553 03/09/2014 PRESCRIP TRANSMIT VIA ERX SY CPT-4: G8553 02/05/2014 ROUTINE VENIPUNCTURE CPT-4: 21907 02/04/2014 RML ASSAY OF FREE THYROXINE CPT-4: 23428 02/04/2014 RML ASSAY THYROID STIM HORMONE CPT-4: 81687 4 RML COMPREHEN METABOLIC PANEL CPT-4: 16572 02/04/2014 RML COMPLETE CBC W/AUTO DIFF WBC CPT-4: 40674 014 RML LIPID PANEL CPT-4: 14269 02/04/2014 DRAIN/INJECT JOINT/BURSA CPT-4: 61770 04/07/2013 METHYLPREDNISOLONE 40 MG INJ CPT-4: J1030 04/07/2013 TRIAMCINOLONE ACET INJ NOS CPT-4: J3301 04/07/2013 PRESCRIP TRANSMIT VIA ERX SY CPT-4: G8553 04/07/2013 DRAIN/INJECT JOINT/BURSA CPT-4: 18971 10/09/2012 METHYLPREDNISOLONE 40 MG INJ CPT-4: J1030 10/09/2012 TRIAMCINOLONE ACET INJ NOS CPT-4: J3301 10/09/2012 PRESCRIP TRANSMIT VIA ERX SY CPT-4: G8553 03/28/2012 ROUTINE VENIPUNCTURE CPT-4: 44132 03/18/2012 RML ASSAY OF FREE THYROXINE CPT-4: 03796 03/18/2012 RML ASSAY THYROID STIM HORMONE CPT-4: 61489 2 RML COMPREHEN METABOLIC PANEL CPT-4: 24352 03/18/2012 RML COMPLETE CBC W/AUTO DIFF WBC CPT-4: 20824 012 RML LIPID PANEL CPT-4: 82311 03/18/2012 CERUM REMOVAL CPT-4: 52818 2012 OCCULT BLOOD FECES CPT-4: 41233 09/27/2011 CA SCREEN;PELVIC/BREAST EXAM CPT-4: G0101 09/27/2011 OBTAINING SCREEN PAP SMEAR CPT-4: Q0091 09/27/2011 CUR TOBACCO NON-USER CPT-4: G8457 09/13/2011 PRESCRIP TRANSMIT VIA ERX SY CPT-4: G8553 09/13/2011 PRESCRIP TRANSMIT VIA ERX SY CPT-4: G8553 08/07/2011 ROUTINE VENIPUNCTURE CPT-4: 84923 07/13/2011 RML ASSAY OF FREE THYROXINE CPT-4: 88595 07/13/2011 RML ASSAY THYROID STIM HORMONE CPT-4: 83154 1 RML COMPREHEN METABOLIC PANEL CPT-4: 24112 07/13/2011 RML COMPLETE CBC W/AUTO DIFF WBC CPT-4: 41930 011 RML LIPID PANEL CPT-4: 96333 07/13/2011 ROUTINE VENIPUNCTURE CPT-4: 02437 03/13/2011 RML COMPREHEN METABOLIC PANEL CPT-4: 93924 03/13/2011 RML LIPID PANEL CPT-4: 14658 03/13/2011 RML ASSAY THYROID STIM HORMONE CPT-4: 04266 1 RML ASSAY OF FREE THYROXINE CPT-4: 12585 03/13/2011 PRESCRIP TRANSMIT VIA ERX SY CPT-4: G8553 01/04/2011 ROUTINE VENIPUNCTURE CPT-4: 39583 12/16/2010 RML LIPID PANEL CPT-4: 00233 12/16/2010 RML COMPLETE CBC W/AUTO DIFF WBC CPT-4: 46520 011 RML COMPREHEN METABOLIC PANEL CPT-4: 28236 12/16/2010 RML ASSAY OF FREE THYROXINE CPT-4: 17470 12/16/2010 RML ASSAY THYROID STIM HORMONE CPT-4: 93779 1 INJ TRIGGER POINT / MUSCL CPT-4: 27676 02/14/2010 TRIAMCINOLONE ACET INJ NOS CPT-4: J3301 02/14/2010 METHYLPREDNISOLONE 40 MG INJ CPT-4: J1030 02/14/2010 THER/PROPH/DIAG INJ SC/IM CPT-4: 99384 02/07/2010 KETOROLAC TROMETHAMINE INJ CPT-4: J1885 02/07/2010 ROUTINE VENIPUNCTURE CPT-4: 12224 12/22/2009 Vital Signs Date Vital 08/07/2022 Blood Pressure 1: 134/86 Code: 8480-6 BMI: 25.8 Code: 41899-2 Heart Rate 1: 120 bpm Height: 5'10" Code: 8302-2 Respiratory Rate: 20 bpm SpO2: 97% Temperature: 36.2 (C) / 97.1 (F) Weight: 180 lbs Code: 83982-3 08/02/2022 Blood Pressure 1: 141/102 Code: 8480-6 BMI: 26.4 Code: 81703-6 Heart Rate 1: 91 bpm Height: 5'10" Code: 8302-2 SpO2: 98% Temperature: 36.2 (C) / 97.1 (F) Weight: 184 lbs Code: 65143-9 06/26/2022 Blood Pressure 1: 132/78 Code: 8480-6 BMI: 25.5 Code: 32372-3 Heart Rate 1: 96 bpm Height: 5'10" Code: 8302-2 SpO2: 98% Temperature: 36.2 (C) / 97.2 (F) Weight: 178 lbs Code: 69963-1 05/22/2022 Blood Pressure 1: 126/82 Code: 8480-6 BMI: 25.5 Code: 25291-2 Heart Rate 1: 104 bpm Height: 5'10" Code: 8302-2 Respiratory Rate: 20 bpm SpO2: 96% Temperature: 36.8 (C) / 98.2 (F) Weight: 178 lbs Code: 32316-6 02/27/2022 Blood Pressure 1: 142/82 Code: 8480-6 BMI: 25.5 Code: 73775-4 Heart Rate 1: 112 bpm Height: 5'10" Code: 8302-2 Respiratory Rate: 20 bpm SpO2: 96% Temperature: 36.8 (C) / 98.3 (F) Weight: 178 lbs Code: 41437-2 11/23/2021 Blood Pressure 1: 136/82 Code: 8480-6 BMI: 25.7 Code: 80772-1 Heart Rate 1: 72 bpm Height: 5'10" Code: 8302-2 Respiratory Rate: 20 bpm SpO2: 98% Temperature: 36.6 (C) / 97.9 (F) Weight: 179 lbs Code: 38477-4 10/12/2021 Blood Pressure 1: 128/92 Code: 8480-6 BMI: 25.5 Code: 76116-9 Heart Rate 1: 68 bpm Height: 5'10" Code: 8302-2 Respiratory Rate: 20 bpm SpO2: 98% Temperature: 36.7 (C) / 98.1 (F) Weight: 178 lbs Code: 94415-4 08/09/2021 Blood Pressure 1: 127/80 Code: 8480-6 Heart Rate 1: 69 bpm Respiratory Rate: 15 bpm SpO2: 98% Temperature: 36.7 (C) / 98.0 (F) We ight: 171 lbs Code: 39751-0 07/28/2021 Blood Pressure 1: 132/78 Code: 8480-6 Heart Rate 1: 76 bpm Respiratory Rate: 20 bpm SpO2: 96% Temperature: 36.8 (C) / 98.2 (F) We ight: 174 lbs Code: 66442-7 05/12/2021 Blood Pressure 1: 142/80 Code: 8480-6 Heart Rate 1: 76 bpm Respiratory Rate: 20 bpm SpO2: 96% Temperature: 36.8 (C) / 98.2 (F) We ight: 173 lbs Code: 53842-3 03/08/2021 Blood Pressure 1: 124/80 Code: 8480-6 Heart Rate 1: 88 bpm Respiratory Rate: 20 bpm SpO2: 98% Temperature: 36.8 (C) / 98.3 (F) We ight: 175 lbs Code: 59444-8 02/03/2021 Blood Pressure 1: 144/84 Code: 8480-6 Heart Rate 1: 68 bpm Respiratory Rate: 20 bpm SpO2: 97% Temperature: 36.7 (C) / 98.1 (F) We ight: 182 lbs Code: 85992-8 01/04/2021 Blood Pressure 1: 152/86 Code: 8480-6 Heart Rate 1: 72 bpm Respiratory Rate: 20 bpm SpO2: 97% Temperature: 36.6 (C) / 97.8 (F) We ight: 182 lbs Code: 44352-5 10/05/2020 Blood Pressure 1: 124/66 Code: 8480-6 He art Rate 1: 65 bpm 09/20/2020 Blood Pressure 1: 134/76 Code: 8480-6 Heart Rate 1: 60 bpm Respiratory Rate: 20 bpm SpO2: 97% Temperature: 36.1 (C) / 97.0 (F) We ight: 187 lbs Code: 84136-6 05/28/2020 Temperature: 36.8 (C) / 98.3 (F) 05/19/2020 Blood Pressure 1: 128/78 Code: 8480-6 Heart Rate 1: 50 bpm Respiratory Rate: 20 bpm SpO2: 98% Temperature: 36.5 (C) / 97.7 (F) 05/11/2020 Blood Pressure 1: 126/80 Code: 8480-6 BMI: 25.4 Code: 94953-1 Heart Rate 1: 60 bpm Height: 5'10" Code: 8302-2 Respiratory Rate: 20 bpm Temperat ure: 36.6 (C) / 97.8 (F) Weight: 177 lbs Code: 58083-0 05/05/2020 Blood Pressure 1: 122/78 Code: 8480-6 Heart Rate 1: 64 bpm Temperature: 36.3 (C) / 97.3 (F) 02/11/2020 Blood Pressure 1: 128/80 Code: 8480-6 Heart Rate 1: 56 bpm Respiratory Rate: 20 bpm SpO2: 100% Temperature: 36.2 (C) / 97.1 (F) 01/28/2020 Blood Pressure 1: 118/78 Code: 8480-6 Heart Rate 1: 80 bpm Respiratory Rate: 20 bpm SpO2: 98% Temperature: 36.6 (C) / 97.9 (F) 01/05/2020 Blood Pressure 1: 104/66 Code: 8480-6 BMI: 25.4 Code: 49911-0 Heart Rate 1: 56 bpm Height: 5'10" Code: 8302-2 Respiratory Rate: 20 bpm SpO2: 97% Temperature: 36.6 (C) / 97.8 (F) Weight: 177 lbs Code: 25515-4 10/29/2019 Blood Pressure 1: 114/62 Code: 8480-6 Heart Rate 1: 68 bpm Respiratory Rate: 20 bpm SpO2: 99% Temperature: 36.8 (C) / 98.2 (F) 10/20/2019 Blood Pressure 1: 119/74 Code: 8480-6 Heart Rate 1: 57 bpm Respiratory Rate: 16 bpm SpO2: 99% Temperature: 36.9 (C) / 98.4 (F) We ight: 176 lbs Code: 97529-0 07/07/2019 Blood Pressure 1: 126/74 Code: 8480-6 Heart Rate 1: 72 bpm Respiratory Rate: 16 bpm SpO2: 95% Temperature: 36.8 (C) / 98.2 (F) We ight: 179 lbs Code: 19912-0 05/01/2019 Blood Pressure 1: 126/76 Code: 8480-6 Heart Rate 1: 60 bpm Respiratory Rate: 20 bpm SpO2: 97% Temperature: 36.8 (C) / 98.2 (F) 04/15/2019 Blood Pressure 1: 154/94 Code: 8480-6 BMI: 26.0 Code: 11288-0 Heart Rate 1: 60 bpm Height: 5'10" Code: 8302-2 Respiratory Rate: 18 bpm SpO2: 97% Temperature: 36.6 (C) / 97.9 (F) Weight: 181 lbs Code: 20293-6 11/26/2018 Blood Pressure 1: 142/80 Code: 8480-6 BMI: 26.3 Code: 98808-9 Heart Rate 1: 56 bpm Height: 5'10" Code: 8302-2 Respiratory Rate: 20 bpm SpO2: 97% Temperature: 36.9 (C) / 98.4 (F) Weight: 183 lbs Code: 93956-2 08/08/2018 Blood Pressure 1: 126/68 Code: 8480-6 Heart Rate 1: 76 bpm Height: 5'10" Code: 8302-2 Respiratory Rate: 20 bpm SpO2: 97% Temperature: 36 .7 (C) / 98.0 (F) Weight: Code: 61100-4 06/25/2018 Blood Pressure 1: 112/70 Code: 8480-6 BMI: 25.8 Code: 71433-2 Heart Rate 1: 64 bpm Height: 5'10" Code: 8302-2 Respiratory Rate: 20 bpm SpO2: 95% Temperature: 36.9 (C) / 98.4 (F) Weight: 180 lbs Code: 56152-7 05/20/2018 Blood Pressure 1: 132/100 Code: 8480-6 H eart Rate 1: 76 bpm 05/10/2018 Blood Pressure 1: 144/86 Code: 8480-6 Heart Rate 1: 60 bpm Respiratory Rate: 20 bpm SpO2: 97% Temperature: 36.9 (C) / 98.4 (F) We ight: Code: 12753-6 05/03/2018 Blood Pressure 1: 126/92 Code: 8480-6 Bl ood Pressure 2: 147/79 Code: 8480-6 Heart Rate 1: 64 bpm Height: 5'10" Code: 8302-2 Respiratory Rate : 22 bpm SpO2: 98% Temperature: 36.3 (C) / 97.3 (F) Weight: Code: 35660- 7 04/22/2018 Blood Pressure 1: 140/82 Code: 8480-6 BMI: 26.3 Code: 32357-0 Heart Rate 1: 60 bpm Height: 5'10" Code: 8302-2 Respiratory Rate: 20 bpm SpO2: 95% Temperature: 36.8 (C) / 98.2 (F) Weight: 183 lbs Code: 19169-7 03/05/2018 Blood Pressure 1: 122/64 Code: 8480-6 BMI: 25.7 Code: 20817-5 Heart Rate 1: 82 bpm Height: 5'10" Code: 8302-2 Respiratory Rate: 22 bpm SpO2: 96% Temperature: 36.4 (C) / 97.6 (F) Weight: 179 lbs Code: 86248-2 02/19/2018 Blood Pressure 1: 120/84 Code: 8480-6 Heart Rate 1: 68 bpm SpO2: 96% Temperature: 36.2 (C) / 97.2 (F) Weight: Code: 31266-6 02/13/2018 Blood Pressure 1: 138/90 Cod e: 8480-6 10/18/2017 Blood Pressure 1: 122/78 Code: 8480-6 BMI: 26.5 Code: 59733-0 Heart Rate 1: 72 bpm Height: 5'10" Code: 8302-2 Respiratory Rate: 20 bpm Temperat ure: 36.7 (C) / 98.0 (F) Weight: 185 lbs Code: 79170-0 07/24/2017 Blood Pressure 1: 118/68 Code: 8480-6 Heart Rate 1: 82 bpm Height: 5'10" Code: 8302-2 Respiratory Rate: 20 bpm SpO2: 92% Temperature: 36 .4 (C) / 97.6 (F) Weight: Code: 43194-2 06/14/2017 Blood Pressure 1: 156/98 Code: 8480-6 Heart Rate 1: 84 bpm Height: 5'10" Code: 8302-2 Respiratory Rate: 20 bpm SpO2: 96% Temperature: 36 .9 (C) / 98.5 (F) Weight: Code: 32049-9 06/01/2017 Blood Pressure 1: 122/82 Code: 8480-6 Heart Rate 1: 68 bpm Height: 5'10" Code: 8302-2 Respiratory Rate: 20 bpm Temperature: 36.8 (C) / 98.2 (F) 03/30/2017 Blood Pressure 1: 124/78 Code: 8480-6 Heart Rate 1: 88 bpm Height: 5'10" Code: 8302-2 Respiratory Rate: 20 bpm SpO2: 96% Temperature: 36 .9 (C) / 98.4 (F) Weight: Code: 52531-0 01/17/2017 Blood Pressure 1: 126/74 Code: 8480-6 Heart Rate 1: 72 bpm Height: 5'10" Code: 8302-2 Respiratory Rate: 20 bpm SpO2: 96% Temperature: 37 .0 (C) / 98.6 (F) Weight: Code: 01607-5 12/18/2016 Blood Pressure 1: 128/86 Code: 8480-6 BMI: 24.7 Code: 96353-9 Heart Rate 1: 76 bpm Height: 5'10" Code: 8302-2 Respiratory Rate: 20 bpm SpO2: 96% Temperature: 36.8 (C) / 98.3 (F) Weight: 172 lbs Code: 94545-9 11/02/2016 Blood Pressure 1: 128/80 Code: 8480-6 BMI: 24.7 Code: 30806-3 Heart Rate 1: 72 bpm Height: 5'10" Code: 8302-2 Respiratory Rate: 20 bpm SpO2: 94% Temperature: 36.9 (C) / 98.4 (F) Weight: 172 lbs Code: 20516-6 10/24/2016 Blood Pressure 1: 120/78 Code: 8480-6 BMI: 24.7 Code: 19506-3 Heart Rate 1: 88 bpm Height: 5'10" Code: 8302-2 Respiratory Rate: 18 bpm SpO2: 96% Temperature: 36.5 (C) / 97.7 (F) Weight: 172 lbs Code: 93624-0 02/07/2016 Heart Rate 1: 76 bpm Respiratory Rate: 22 bpm SpO2: 96 % Temperature: 36.4 (C) / 97.6 (F) Weight: Code: 97125-3 05/26/2015 Blood Pressure 1: 124/70 Code: 8480-6 BMI: 25.1 Code: 57836-1 Heart Rate 1: 84 bpm Height: 5'10" Code: 8302-2 Respiratory Rate: 20 bpm Temperat ure: 36.7 (C) / 98.1 (F) Weight: 175 lbs Code: 57563-0 11/30/2014 Blood Pressure 1: 142/94 Code: 8480-6 BMI: 25.1 Code: 22656-2 Heart Rate 1: 80 bpm Height: 5'10" Code: 8302-2 Respiratory Rate: 20 bpm Temperat ure: 36.9 (C) / 98.5 (F) Weight: 175 lbs Code: 93264-2 07/23/2014 Blood Pressure 1: 138/86 Code: 8480-6 BMI: 25.0 Code: 67252-2 Heart Rate 1: 80 bpm Height: 5'10" Code: 8302-2 Respiratory Rate: 20 bpm Temperat ure: 36.4 (C) / 97.6 (F) Weight: 174 lbs Code: 13504-0 03/09/2014 Blood Pressure 1: 122/78 Code: 8480-6 BMI: 25.0 Code: 77489-1 Heart Rate 1: 78 bpm Height: 5'10" Code: 8302-2 Respiratory Rate: 24 bpm Temperat ure: 36.4 (C) / 97.6 (F) Weight: 174 lbs Code: 92093-6 02/05/2014 Blood Pressure 1: 132/80 Code: 8480-6 BMI: 25.0 Code: 25026-4 Heart Rate 1: 84 bpm Height: 5'10" Code: 8302-2 Respiratory Rate: 20 bpm Temperat ure: 36.6 (C) / 97.9 (F) Weight: 174 lbs Code: 22687-7 05/12/2013 Blood Pressure 1: 138/94 Code: 8480-6 BMI: 25.1 Code: 02440-1 Heart Rate 1: 92 bpm Height: 5'10" Code: 8302-2 Respiratory Rate: 20 bpm Temperat ure: 36.7 (C) / 98.1 (F) Weight: 175 lbs Code: 65394-0 04/07/2013 Blood Pressure 1: 136/72 Code: 8480-6 BMI: 25.1 Code: 05270-9 Heart Rate 1: 76 bpm Height: 5'10" Code: 8302-2 Respiratory Rate: 20 bpm Temperat ure: 36.7 (C) / 98.0 (F) Weight: 175 lbs Code: 85806-9 03/31/2013 Blood Pressure 1: 132/94 Code: 8480-6 BMI: 25.1 Code: 92726-6 Heart Rate 1: 76 bpm Height: 5'10" Code: 8302-2 Respiratory Rate: 20 bpm Temperat ure: 36.7 (C) / 98.0 (F) Weight: 175 lbs Code: 55818-5 10/09/2012 Blood Pressure 1: 132/80 Code: 8480-6 BMI: 24.8 Code: 94104-4 Heart Rate 1: 88 bpm Height: 5'10" Code: 8302-2 Temperature: 36.8 (C) / 98.3 (F) Weight: 173 lbs Code: 55608-8 03/28/2012 Blood Pressure 1: 126/82 Code: 8480-6 BMI: 24.7 Code: 80545-7 Heart Rate 1: 72 bpm Height: 5'10" Code: 8302-2 Respiratory Rate: 20 bpm Temperat ure: 36.6 (C) / 97.8 (F) Weight: 172 lbs Code: 71086-1 2012 Blood Pressure 1: 130/72 Code: 8480-6 Heart Rate 1: 80 bpm Height: Code: 8302-2 Temperature: 36.5 (C) / 97.7 (F) Weight: Code: 66451- 7 09/27/2011 Blood Pressure 1: 116/78 Code: 8480-6 BMI: 24.4 Code: 80245-6 Heart Rate 1: 76 bpm Height: 5'10" Code: 8302-2 Respiratory Rate: 20 bpm Temperat ure: 36.9 (C) / 98.4 (F) Weight: 170 lbs Code: 59885-2 09/13/2011 Blood Pressure 1: 124/82 Code: 8480-6 BMI: 24.4 Code: 79911-8 Heart Rate 1: 72 bpm Height: 5'10" Code: 8302-2 Respiratory Rate: 20 bpm Temperat ure: 36.4 (C) / 97.6 (F) Weight: 170 lbs Code: 21919-9 08/07/2011 Blood Pressure 1: 110/74 Code: 8480-6 BMI: 23.2 Code: 64398-3 Heart Rate 1: 60 bpm Height: 5'11" Code: 8302-2 Temperature: 36.4 (C) / 97.5 (F) Weight: 166 lbs Code: 27430-3 02/06/2011 Blood Pressure 1: 96/58 Code : 8480-6 01/20/2011 Blood Pressure 1: 112/78 Cod e: 8480-6 01/12/2011 Blood Pressure 1: 110/48 Code: 8480-6 He art Rate 1: 84 bpm 01/04/2011 Blood Pressure 1: 126/80 Code: 8480-6 Heart Rate 1: 76 bpm Temperature: 36.9 (C) / 98.4 (F) Weight: 168 lbs Code: 57632-2 02/14/2010 Blood Pressure 1: 134/82 Code: 8480-6 Heart Rate 1: 88 bpm Temperature: 36.6 (C) / 97.9 (F) 02/07/2010 Blood Pressure 1: 130/80 Code: 8480-6 BMI: 23.4 Code: 37545-6 Heart Rate 1: 84 bpm Height: 5'10" Code: 8302-2 Temperature: 36.4 (C) / 97.6 (F) Weight: 163 lbs Code: 50719-4 Functional Status No Functional Status data Reason For Visit Reason For Visit Effective Dates Notes follow up 08/07/2022 follow up 08/02/2022 high blood pressure 08/02/2022 arrhythmia 08/02/2022 follow up 06/26/2022 cardiac conversion d id not work, and new medication is not working. arrhythmia 06/26/2022 follow up 05/22/2022 high blood pressure 05/22/2022 arrhythmia 05/22/2022 lab draw 02/28/2022 arrhythmia 02/27/2022 skin lesion 02/27/2022 follow up 11/23/2021 high blood pressure 11/23/2021 hyperlipidemia 11/23/2021 hypothyroid 11/23/2021 anxiety 11/23/2021 dyskinesia or tremor 10/12/2021 anxiety 10/12/2021 cough 08/09/2021 sore throat 08/09/2021 nasal discharge 08/09/2021 follow up 07/28/2021 high blood pressure 07/28/2021 arrhythmia 07/28/2021 hypothyroid 07/28/2021 hyperglycemia 07/28/2021 lab draw 07/20/2021 follow up 05/12/2021 high blood pressure 05/12/2021 disturbances of emotion 05/12/2021 skin lesion 05/12/2021 rash 03/08/2021 follow up 02/03/2021 disturbances of emotion 02/03/2021 high blood pressure 02/03/2021 hyperlipidemia 02/03/2021 hyperglycemia 02/03/2021 arrhythmia 02/03/2021 lab draw 01/31/2021 dizziness 01/04/2021 arrhythmia 01/04/2021 high blood pressure 09/20/2020 arrhythmia 09/20/2020 follow up 05/28/2020 10 Day skin lesion 05/28/2020 Suture removal to ri ght lower extremity. skin lesion 05/19/2020 well woman exam (65+ years) 05/11/2020 high blood pressure 05/11/2020 hyperlipidemia 05/11/2020 hypothyroid 05/11/2020 hyperglycemia 05/11/2020 arrhythmia 05/11/2020 dizziness 05/11/2020 lab draw 05/05/2020 blood pressure check 05/05/2020 follow up 02/11/2020 pruritus 02/11/2020 rash 01/28/2020 arrhythmia 01/05/2020 diarrhea 01/05/2020 cough 01/05/2020 lab draw 12/05/2019 follow up 10/29/2019 acute renal failure 10/29/2019 high blood pressure 10/29/2019 muscle weakness 10/29/2019 nausea 10/20/2019 vertigo 10/20/2019 follow up 07/07/2019 high blood pressure 07/07/2019 dizziness 07/07/2019 follow up 05/01/2019 high blood pressure 05/01/2019 high blood pressure 04/15/2019 dyspnea 04/15/2019 lab draw 04/04/2019 well woman exam (65+ years) 11/26/2018 Annual Medic are Physical high blood pressure 11/26/2018 hyperlipidemia 11/26/2018 hypothyroid 11/26/2018 lab draw 10/07/2018 follow up 08/08/2018 joint complaint 08/08/2018 hearing loss 08/08/2018 vertigo 08/08/2018 high blood pressure 08/08/2018 follow up 06/25/2018 dizziness 06/25/2018 vomiting 06/25/2018 nausea 06/25/2018 hearing loss 06/25/2018 blood pressure check 05/20/2018 follow up 05/10/2018 vertigo 05/10/2018 high blood pressure 05/10/2018 follow up 05/03/2018 ER visit from [facility] vertigo 05/03/2018 high blood pressure 05/03/2018 nausea 05/03/2018 nasal discharge 05/03/2018 cough 05/03/2018 follow up 04/22/2018 knee pain 04/22/[address] Vo prescribed sleep apnea-obstruction 04/22/2018 dizziness 04/22/2018 arrhythmia 04/22/2018 high blood pressure 04/22/2018 dyspnea 04/22/2018 rash 03/05/2018 Patient states has h ad a recurrent rash (always one sided) that has come and go intermittently for the last 2 years. She typically can feel a stinging sensation first before the rash develops. She has never had to take any medication and it goes away on its own. Has only occurred on upper extremities only. Patient suspects it to be shingles. hearing loss 02/19/2018 lab draw 02/13/2018 follow up 10/18/2017 hypothyroid 10/18/2017 hyperlipidemia 10/18/2017 lab draw 10/15/2017 otalgia 07/24/2017 sinus congestion 07/24/2017 follow up 06/14/2017 sleep apnea-obstruction 06/14/2017 high blood pressure 06/14/2017 rash 06/14/2017 arrhythmia 06/14/2017 rash 06/01/2017 Medication Monitoring 03/30/2017 Patient would like to go over medications and possibly stop some high blood pressure 03/30/2017 arrhythmia 03/30/2017 follow up 01/17/2017 high blood pressure 01/17/2017 Discuss recent echo hyperlipidemia 12/18/2016 hypothyroid 12/18/2016 high blood pressure 12/18/2016 well woman exam (65+ years) 12/18/2016 anemia 12/18/2016 Patient has history of low B12 levels causing overall fatigue/weakness lab draw 12/11/2016 follow up 11/02/2016 sore throat 11/02/2016 cough 11/02/2016 fever 11/02/2016 cough 10/24/2016 chest congestion 10/24/2016 nasal discharge 10/24/2016 postnasal drip 10/24/2016 otalgia 10/24/2016 sinus congestion 10/24/2016 nausea 02/07/2016 abdominal pain 02/07/2016 vertigo 02/07/2016 diarrhea 02/07/2016 lab draw 05/27/2015 rash 05/26/2015 injection(s) 05/26/2015 Discuss need for ano ther pneumonia vaccine and Tdap booster---last pneumovax was May 2008 weight gain/obesity 05/26/2015 hematochezia 02/19/2015 hematochezia 01/20/2015 otalgia 11/30/2014 rash 11/30/2014 hyperlipidemia 11/30/2014 lab draw 11/26/2014 lab draw 08/14/2014 cough 07/23/2014 gastroesophageal reflux 07/23/2014 ~generic 07/23/2014 Discuss need for yea rly mammogram heel pain 03/09/2014 follow up 02/05/2014 Discuss labs gastroesophageal reflux 02/05/2014 knee pain 02/05/2014 heel pain 02/05/2014 back pain 02/05/2014 lab draw 02/04/2014 knee pain 05/12/2013 On the right side, trinh hull 3 weeks ago, pain and swelling follow up 04/07/2013 back pain 04/07/2013 back pain 03/31/2013 hip pain 10/09/2012 dyspepsia 10/09/2012 headache 03/28/2012 refill esgic plus gastroesophageal reflux 03/28/2012 urinary urgency 03/28/2012 Pap smear abnormality 03/28/2012 lab draw 03/18/2012 otalgia 2012 ears flushed follow up 09/27/2011 2wk fwup--finished a ntibiotics/steroids and has another day left of symbicort sore throat 09/27/2011 ~generic 09/27/2011 said needs pelvic to check for a cyst cough 09/27/2011 cough 09/13/2011 sore throat 09/13/2011 cough 08/07/2011 sore throat 08/07/2011 lab draw 07/13/2011 lab draw 03/13/2011 follow up 01/04/2011 discuss labs hypothyroid 01/04/2011 ~generic 01/04/2011 would like to discus s recent visit from Dr Easton hyperlipidemia 01/04/2011 back pain 01/04/2011 skin lesion 01/04/2011 high blood pressure 01/04/2011 follow up 02/14/2010 1wk fwup from [facility] back pain 02/14/2010 couldn't take the Fl exeril pain, limb 02/14/2010 worse when sit low back pain 02/07/2010 Encounters Encounter Performer Location Location Address Codes Date ([id number]) OFFICE/OUTPATIENT VISIT EST Diagnosis: Hospital discharge follow-up[ICD10: Z09] Diagnosis: Right rib fracture[ICD10: S22.31XA] Diagnosis: Right humeral fracture[ICD10: S42.301A] Patricia DAVID [address] [address] CPT-4: 61389 08/07/2022 ([id number]) OFFICE/OUTPATIENT VISIT EST Diagnosis: Atrial fibrillation and flutter[ICD10: I48.91] Diagnosis: Essential (primary) hypertension[ICD10: I10] Diagnosis: Stress[ICD10: F43.9] Diagnosis: Cough[ICD10: R05.9] Yvette DAVID DO [address] [address] CPT-4: 65792 08/02/20 22 ([id number]) OFFICE/OUTPATIENT VISIT EST Diagnosis: Atrial fibrillation and flutter[ICD10: I48.91] Yvette DAVID DO [address] [address] CPT- 4: 86253 06/26/2022 ([id number]) OFFICE/OUTPATIENT VISIT EST Diagnosis: Chronic atrial fibrillation[ICD10: I48.20] Diagnosis: Essential hypertension[ICD10: I10] Diagnosis: Skin cancer of arm[ICD10: C44.601] Diagnosis: Mild chronic obstructive pulmonary disease[ICD10: J44.9] Yvette DAVID [address] [address] CPT-4: 41587 05/22/2022 ([id number]) NURSE/OUTPATIENT VISIT EST Diagnosis: Atrial fibrillation and flutter[ICD10: I48.91] Diagnosis: Hypothyroidism[ICD10: E03.9] Diagnosis: Mixed hyperlipidemia[ICD10: E78.2] Diagnosis: Anemia, unspecified[ICD10: D64.9] Diagnosis: Essential (primary) hypertension[ICD10: I10] Diagnosis: Hyperglycemia, unspecified[ICD10: R73.9] Yvette DAVID DO [address] [address] CPT- 4: 05520 02/28/2022 ([id number]) OFFICE/OUTPATIENT VISIT EST Diagnosis: Atypical nevus of right forearm[ICD10: D22.61] Diagnosis: Unspecified atrial flutter[ICD10: I48.92] Diagnosis: Atrial fibrillation and flutter[ICD10: I48.91] Yvette DAVID DO [address] [address] CPT- 4: 64023 02/27/2022 ([id number]) OFFICE/OUTPATIENT VISIT EST Diagnosis: Anxiety[ICD10: F41.9] Yvette DAVID DO [address] [address] CPT-4: 89621 11/23/2021 ([id number]) OFFICE/OUTPATIENT VISIT EST Diagnosis: Anxiety[ICD10: F41.9] Diagnosis: Stress reaction[ICD10: F43.0] Yvette DAVID DO [address] [address] CPT-4: 36759 10/12/2021 ([id number]) OFFICE/OUTPATIENT VISIT EST Diagnosis: Contact with and (suspected) exposure to covid-19[ICD10: Z20.822] Diagnosis: Nasopharyngitis[ICD10: J00] Diagnosis: Acute foreign body of left ear canal, initial encounter[ICD10: T16.2XXA] Diagnosis: Acute foreign body of right ear canal[ICD10: T16.1XXA] Martina DAVID DO [address] [address] CPT-4: 35516 08/09/2021 ([id number]) OFFICE/OUTPATIENT VISIT EST Diagnosis: Essential (primary) hypertension[ICD10: I10] Diagnosis: Hypothyroidism[ICD10: E03.9] Diagnosis: Paroxysmal atrial fibrillation[ICD10: I48.0] Diagnosis: Hyperglycemia, unspecified[ICD10: R73.9] Yvette DAVID DO [address] [address] CPT- 4: 85783 07/28/2021 ([id number]) NURSE/OUTPATIENT VISIT EST Diagnosis: Mixed hyperlipidemia[ICD10: E78.2] Diagnosis: Anemia, unspecified[ICD10: D64.9] Diagnosis: Essential (primary) hypertension[ICD10: I10] Diagnosis: Hypothyroidism, unspecified[ICD10: E03.9] Diagnosis: Hyperglycemia, unspecified[ICD10: R73.9] Yvettemarielle DAVID [address] [address] CPT- 4: 50547 07/20/2021 ([id number]) OFFICE/OUTPATIENT VISIT EST Diagnosis: Grieving[ICD10: F43.21] Diagnosis: Inflamed seborrheic keratosis[ICD10: L82.0] Yvette DAVID DO [address] [address] CPT- 4: 95802 05/12/2021 ([id number]) OFFICE/OUTPATIENT VISIT EST Diagnosis: Rhus dermatitis[ICD10: L25.5] Yvette DAVID DO [address] [address] CPT-4: 42359 03/08/2021 ([id number]) OFFICE/OUTPATIENT VISIT EST Diagnosis: Essential hypertension[ICD10: I10] Diagnosis: Chronic atrial fibrillation[ICD10: I48.20] Diagnosis: Mixed hyperlipidemia[ICD10: E78.2] Diagnosis: Hyperglycemia, unspecified[ICD10: R73.9] Diagnosis: Depression[ICD10: F32.9] Yvette CHAIREZ [address] [address] CPT-4: 78341 02/03/2021 ([id number]) NURSE/OUTPATIENT VISIT EST Diagnosis: Hyperglycemia, unspecified[ICD10: R73.9] Diagnosis: Mixed hyperlipidemia[ICD10: E78.2] Diagnosis: Essential (primary) hypertension[ICD10: I10] Diagnosis: Hypothyroidism, unspecified[ICD10: E03.9] Yvette DAVID DO [address] [address] CPT- 4: 20103 01/31/2021 ([id number]) OFFICE/OUTPATIENT VISIT EST Diagnosis: Vertigo[ICD10: R42] Diagnosis: Chronic atrial fibrillation[ICD10: I48.20] Diagnosis: Cerumen impaction[ICD10: H61.20] Diagnosis: Depression[ICD10: F32.9] Yvette CHAIREZ DO [address] [address] CPT-4: 71211 01/04/2021 ([id number]) NURSE/OUTPATIENT VISIT EST Diagnosis: Essential hypertension[ICD10: I10] Yvette DAVID DO [address] [address] CPT-4: 67077 10/05/2020 ([id number]) OFFICE/OUTPATIENT VISIT EST Diagnosis: Chronic atrial fibrillation[ICD10: I48.20] Diagnosis: Dizziness[ICD10: R42] Yvette DAVID DO [address] [address] CPT-4: 70755 09/20/2020 ([id number]) NURSE/OUTPATIENT VISIT EST Diagnosis: Dysplastic nevus of right lower extremity[ICD10: D23.71] Yvette DAVID DO [address] [address] CPT-4: 73038 05/28/2020 ([id number]) NURSE/OUTPATIENT VISIT EST Diagnosis: Essential (primary) hypertension[ICD10: I10] Diagnosis: Type 2 diabetes mellitus with hyperglycemia[ICD10: E11.65] Diagnosis: Anemia, unspecified[ICD10: D64.9] Diagnosis: Hypothyroidism, unspecified[ICD10: E03.9] Yvette DAVID DO [address] [address] CPT- 4: 17591 05/05/2020 ([id number]) OFFICE/OUTPATIENT VISIT EST Diagnosis: 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] Diagnosis: Paroxysmal atrial fibrillation[ICD10: I48.0] Yvette DAVID DO [address] [address] CPT- 4: 15559 02/11/2020 ([id number]) OFFICE/OUTPATIENT VISIT EST Diagnosis: Dermatitis[ICD10: L30.9] Diagnosis: 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] Diagnosis: Chronic pruritus[ICD10: L29.9] Yvette Tristanchris YVETTE Cristi TRISTANNDER DO [address] [address] CPT-4: 76410 01/28/2020 ([id number]) OFFICE/OUTPATIENT VISIT EST Diagnosis: Diarrhea, unspecified[ICD10: R19.7] Diagnosis: Dizziness[ICD10: R42] Diagnosis: Generalized pruritus[ICD10: L29.9] Yvette SIMMS NAHOMY SGarrett TRISTANNDER DO [address] [address] CPT-4: 90748 01/05/2020 ([id number]) NURSE/OUTPATIENT VISIT EST Diagnosis: Renal insufficiency[ICD10: N28.9] Yvette KONG Zehra SGarrett TRISTANNDER DO [address] [address] CPT-4: 10846 12/05/2019 ([id number]) NURSE/OUTPATIENT VISIT EST Diagnosis: Renal insufficiency[ICD10: N28.9] Diagnosis: Dehydration[ICD10: E86.0] Yvette Kunchris YVETTE Michael TRISTAN NDESilvia [address] [address] CPT-4: 88355 11/05/2019 ([id number]) OFFICE/OUTPATIENT VISIT EST Diagnosis: Chronic atrial fibrillation[ICD10: I48.20] Diagnosis: Renal insufficiency[ICD10: N28.9] Diagnosis: Dizziness and giddiness[ICD10: R42] Yvette COLEMAN SGarrett TRISTANNDER DO [address] [address] CPT-4: 37663 10/29/2019 ([id number]) NURSE/OUTPATIENT VISIT EST Diagnosis: Hematuria, unspecified[ICD10: R31.9] Yvette MENA Michael TRISTANNDER DO [address] [address] CPT-4: 74330 10/23/2019 ([id number]) NURSE/OUTPATIENT VISIT EST Diagnosis: Encounter for general adult medical examination without abnormal findings[ICD10: Z00.00] Diagnosis: Essential (primary) hypertension[ICD10: I10] Diagnosis: Hypothyroidism, unspecified[ICD10: E03.9] Diagnosis: Mixed hyperlipidemia[ICD10: E78.2] Yvette TRISTANNDER DO [address] [address] CPT-4: 10340 10/21/2019 ([id number]) OFFICE/OUTPATIENT VISIT EST Diagnosis: Cerumen impaction[ICD10: H61.20] Diagnosis: Dizziness[ICD10: R42] Diagnosis: Gastritis[ICD10: K29.70] Diagnosis: Dehydration[ICD10: E86.0] Natalee TRISTAN NDESilvia [address] [address] CPT-4: 97542 10/20/2019 ([id number]) OFFICE/OUTPATIENT VISIT EST Diagnosis: Paroxysmal atrial fibrillation[ICD10: I48.0] Diagnosis: Essential hypertension[ICD10: I10] Yvette COREA SGarrett TRISTANNDER DO [address] [address] CPT-4: 51753 07/07/2019 ([id number]) OFFICE/OUTPATIENT VISIT EST Diagnosis: Essential (primary) hypertension[ICD10: I10] Yvette TAYLORER [address] [address] CPT- 4: 95860 05/01/2019 ([id number]) OFFICE/OUTPATIENT VISIT EST Diagnosis: Essential (primary) hypertension[ICD10: I10] Diagnosis: Localized edema[ICD10: R60.0] Yvette TRISTANNDER [address] [address] CPT-4: 50886 04/15/2019 ([id number]) NURSE/OUTPATIENT VISIT EST Diagnosis: Essential (primary) hypertension[ICD10: I10] Diagnosis: Hypothyroidism, unspecified[ICD10: E03.9] Diagnosis: Mixed hyperlipidemia[ICD10: E78.2] Yvette SIMMS NAHOMY TRISTANNDER DO [address] [place] [address] CPT-4: 44973 04/04/2019 ([id number]) NURSE/OUTPATIENT VISIT EST Diagnosis: Essential (primary) hypertension[ICD10: I10] Diagnosis: Hyperglycemia, unspecified[ICD10: R73.9] Diagnosis: Hypothyroidism, unspecified[ICD10: E03.9] Diagnosis: Mixed hyperlipidemia[ICD10: E78.2] Yvette DAVID [address] [address] CPT-4: 93551 10/07/2018 ([id number]) OFFICE/OUTPATIENT VISIT EST Diagnosis: Essential (primary) hypertension[ICD10: I10] Diagnosis: Presence of right artificial knee joint[ICD10: Z96.651] Diagnosis: Unspecified hearing loss, left ear[ICD10: H91.92] Yvette DAVID [address] [address] CPT- 4: 51340 08/08/2018 OFFICE/OUTPATIENT VISIT EST Diagnosis: Impacted cerumen, bilateral[ICD10: H61.23] Diagnosis: Vertigo of central origin, bilateral[ICD10: H81.43] Diagnosis: Essential (primary) hypertension[ICD10: I10] Diagnosis: Paroxysmal atrial fibrillation[ICD10: I48.0] Diagnosis: Dizziness and giddiness[ICD10: R42] Diagnosis: Sudden idiopathic hearing loss, left ear[ICD10: H91.22] Yvette DAVID [address] [address] CPT-4: 54224 06/25/2018 ([id number]) OFFICE/OUTPATIENT VISIT EST Diagnosis: Essential (primary) hypertension[ICD10: I10] Diagnosis: Vertigo of central origin, bilateral[ICD10: H81.43] Yvette DAVID [address] [address] CPT-4: 46372 05/10/2018 ([id number]) OFFICE/OUTPATIENT VISIT EST Diagnosis: Allergic rhinitis due to pollen[ICD10: J30.1] Diagnosis: Dizziness and giddiness[ICD10: R42] Diagnosis: Vertigo of central origin, bilateral[ICD10: H81.43] Diagnosis: Essential (primary) hypertension[ICD10: I10] Yvette DAVID DO [address] [address] CPT- 4: 26433 05/03/2018 OFFICE/OUTPATIENT VISIT EST Diagnosis: Hypothyroidism, unspecified[ICD10: E03.9] Diagnosis: Mixed hyperlipidemia[ICD10: E78.2] Diagnosis: Essential (primary) hypertension[ICD10: I10] Diagnosis: Paroxysmal atrial fibrillation[ICD10: I48.0] Diagnosis: Obstructive sleep apnea (adult) (pediatric)[ICD10: G47.33] Diagnosis: Unilateral primary osteoarthritis, right knee[ICD10: M17.11] Yvette DAVID DO [address] [address] CPT-4: 19581 04/22/2018 ([id number]) OFFICE/OUTPATIENT VISIT EST Diagnosis: Zoster without complications[ICD10: B02.9] Natalee DAVID DO [address] [address] CPT- 4: 79795 03/05/2018 ([id number]) NURSE/OUTPATIENT VISIT EST Diagnosis: Hypothyroidism, unspecified[ICD10: E03.9] Diagnosis: Mixed hyperlipidemia[ICD10: E78.2] Diagnosis: Essential (primary) hypertension[ICD10: I10] Diagnosis: Paroxysmal atrial fibrillation[ICD10: I48.0] Yvette DAVID DO [address] [address] CPT- 4: 33313 02/13/2018 ([id number]) OFFICE/OUTPATIENT VISIT EST Diagnosis: Obstructive sleep apnea (adult) (pediatric)[ICD10: G47.33] Diagnosis: Essential (primary) hypertension[ICD10: I10] Diagnosis: Paroxysmal atrial fibrillation[ICD10: I48.0] Yvette DAVID DO [address] [address] CPT- 4: 77560 10/18/2017 ([id number]) OFFICE/OUTPATIENT VISIT EST Diagnosis: Hypothyroidism, unspecified[ICD10: E03.9] Diagnosis: Other vitamin B12 deficiency anemias[ICD10: D51.8] Diagnosis: Essential (primary) hypertension[ICD10: I10] Diagnosis: Mixed hyperlipidemia[ICD10: E78.2] Yvette SIMMS NAHOMY TAYLOR[address] [address] CPT-4: 59670 10/15/2017 OFFICE/OUTPATIENT VISIT EST Diagnosis: Impacted cerumen, bilateral[ICD10: H61.23] Diagnosis: Acute sinusitis, unspecified[ICD10: J01.90] Natalee TAYLOR[address] [address] CPT- 4: 02133 07/24/2017 ([id number]) OFFICE/OUTPATIENT VISIT EST Diagnosis: Obstructive sleep apnea (adult) (pediatric)[ICD10: G47.33] Diagnosis: Tachycardia, unspecified[ICD10: R00.0] Yvette QUINONES Michael TAYLOR[address] [address] CPT-4: 52974 06/14/2017 ([id number]) OFFICE/OUTPATIENT VISIT EST Diagnosis: Zoster without complications[ICD10: B02.9] Demi Rocha YVETTE TAYLOR[address] [address] CPT- 4: 93100 06/01/2017 ([id number]) OFFICE/OUTPATIENT VISIT EST Diagnosis: Essential (primary) hypertension[ICD10: I10] Diagnosis: Tachycardia, unspecified[ICD10: R00.0] Diagnosis: Other vitamin B12 deficiency anemias[ICD10: D51.8] Yvette STUART Michael TAYLOR[address] [address] CPT- 4: 84670 03/30/2017 ([id number]) OFFICE/OUTPATIENT VISIT EST Diagnosis: Essential (primary) hypertension[ICD10: I10] Diagnosis: Other fatigue[ICD10: R53.83] Diagnosis: Other chest pain[ICD10: R07.89] Diagnosis: Snoring[ICD10: R06.83] Yvette Vega [address] [address] CPT-4: 41672 01/17/2017 ([id number]) OFFICE/OUTPATIENT VISIT EST Diagnosis: Encounter for general adult medical examination without abnormal findings[ICD10: Z00.00] Diagnosis: Hypothyroidism, unspecified[ICD10: E03.9] Diagnosis: Essential (primary) hypertension[ICD10: I10] Diagnosis: Mixed hyperlipidemia[ICD10: E78.2] Diagnosis: Other long-term (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[ICD10: Z79.899] Diagnosis: Hyperglycemia, unspecified[ICD10: R73.9] Yvette DAVID [address] [address] CPT- 4: 91672 12/11/2016 ([id number]) OFFICE/OUTPATIENT VISIT EST Diagnosis: URI, ACUTE[ICD10: J06.9] Diagnosis: Cough[ICD10: R05] Yvette MERCADOLINE CristiGarrett JOANN [address] [address] CPT-4: 41801 11/02/19 ([id number]) OFFICE/OUTPATIENT VISIT EST Diagnosis: Acute upper respiratory infection, unspecified[ICD10: J06.9] Elidia Yogi DILLONQUELINE CristiGarrett JOANN [address] [address] CPT-4: 79784 10/24/2016 ([id number]) OFFICE/OUTPATIENT VISIT EST Diagnosis: Nausea[ICD10: R11.0] Diagnosis: Diarrhea, unspecified[ICD10: R19.7] Diagnosis: Dizziness and giddiness[ICD10: R42] Elidia COLEMAN CristiGarrett JOANN [address] [address] CPT-4: 35421 02/07/2016 ([id number]) OFFICE/OUTPATIENT VISIT EST Diagnosis: HYPOTHYROIDISM[ICD9: 244.9] Diagnosis: HYPERLIPIDEMIA NEC/NOS[ICD9: 272.4] Diagnosis: ANEMIA NOS[ICD9: 285.9] Diagnosis: HYPERTENSION[ICD9: 401.9] Diagnosis: Neuropathy[ICD9: 355.9] Yvette [facility]ND [facility] [address] [place] [address] CPT-4: 30820 05/27/2015 ([id number]) OFFICE/OUTPATIENT VISIT EST Diagnosis: Neuropathy[ICD9: 355.9] Diagnosis: Foot pain[ICD9: 729.5] Diagnosis: HYPOTHYROIDISM[ICD9: 244.9] Diagnosis: PNEUMOCOCCAL VACCINE[ICD10: Z23] Yvette TRISTANNDER DO [address] [address] CPT-4: 14695 05/26/2015 ([id number]) OFFICE/OUTPATIENT VISIT EST Diagnosis: Hematochezia[ICD9: 578.1] Yvette TRISTAN NDER DO [address] [address] CPT-4: 65785 02/19/2015 ([id number]) OFFICE/OUTPATIENT VISIT EST Diagnosis: Hematochezia[ICD9: 578.1] Yvette Rodriguez ORE NDER DO [address] [address] CPT-4: 38913 01/20/2015 ([id number]) OFFICE/OUTPATIENT VISIT EST Diagnosis: Hematochezia[ICD9: 578.1] Yvette Rodriguez ORE NDER DO [address] [address] CPT-4: 53099 12/15/2014 ([id number]) OFFICE/OUTPATIENT VISIT EST Diagnosis: TINEA PEDIS[ICD9: 110.4] Diagnosis: Ceruminosis[ICD9: 380.4] Earline Alexandra YVETTE TRISTANN MIHAELA DO [address] [address] CPT-4: 09907 11/30/2014 ([id number]) OFFICE/OUTPATIENT VISIT EST Diagnosis: HYPERLIPIDEMIA NEC/NOS[ICD9: 272.4] Yvette COLEMAN SGarrett KUNNDER DO [facility] [address] [place] [address] CPT-4: 65480 11/26/2014 ([id number]) OFFICE/OUTPATIENT VISIT EST Diagnosis: HYPOTHYROIDISM[ICD9: 244.9] Diagnosis: HYPERLIPIDEMIA NEC/NOS[ICD9: 272.4] Diagnosis: ANEMIA NOS[ICD9: 285.9] Diagnosis: HYPERTENSION[ICD9: 401.9] Yvette STUART CristiGarrett ORE NDER DO [facility] [address] [place] [address] CPT-4: 26072 08/14/2014 ([id number]) OFFICE/OUTPATIENT VISIT EST Diagnosis: GERD[ICD9: 530.81] Diagnosis: COUGH[ICD10: R05] Yvette STUART rCistiGarrett KUNNDER DO [address] [address] CPT-4: 92255 07/23/20 14 OFFICE/OUTPATIENT VISIT EST Diagnosis: Heel pain[ICD9: 729.5] Earline VanBecelaere YVETTE CristiGarrett BRANDONE R DO [address] [address] CPT-4: 29085 03/09/2014 ([id number]) OFFICE/OUTPATIENT VISIT EST Diagnosis: HYPOTHYROIDISM[ICD9: 244.9] Diagnosis: HYPERLIPIDEMIA NEC/NOS[ICD9: 272.4] Diagnosis: Right medial knee pain[ICD9: 719.46] Yvette MENA SGarrett ORENDER DO [facility] [address] [place] [address] CPT-4: 20494 02/05/2014 ([id number]) OFFICE/OUTPATIENT VISIT EST Diagnosis: HYPOTHYROIDISM[ICD9: 244.9] Diagnosis: HYPERLIPIDEMIA NEC/NOS[ICD9: 272.4] Diagnosis: HYPERTENSION[ICD9: 401.9] Diagnosis: ANEMIA NOS[ICD9: 285.9] Diagnosis: MALAISE AND FATIGUE[ICD9: 780.79] Yvette Shahid SGarrett ORENDER [address] [address] CPT-4: 87531 02/04/2014 OFFICE/OUTPATIENT VISIT EST Diagnosis: Right medial knee pain[ICD9: 719.46] Diagnosis: Degeneration, intervertebral disc, lumbar[ICD9: 722.52] Diagnosis: Low back pain[ICD9: 724.2] Earline SmileyJayce Rodriguez LUISITO STEFAN [address] [address] CPT-4: 52648 05/12/2013 ([id number]) OFFICE/OUTPATIENT VISIT EST Diagnosis: Lumbar degenerative disc disease[ICD9: 722.52] Diagnosis: Bulging lumbar disc[ICD9: 722.10] Yvette DAVID [address] [address] CPT-4: 93738 04/07/2013 ([id number]) OFFICE/OUTPATIENT VISIT EST Diagnosis: PAIN, LOWER BACK[ICD9: 724.2] Diagnosis: SPASM OF MUSCLE[ICD9: 728.85] Diagnosis: Lumbar degenerative disc disease[ICD9: 722.52] Yvette DAVID [address] [address] CPT- 4: 49995 03/31/2013 ([id number]) OFFICE/OUTPATIENT VISIT EST Diagnosis: Greater trochanteric bursitis[ICD9: 726.5] Diagnosis: DYSPEPSIA[ICD9: 536.8] Yvette Vega [address] [address] CPT-4: 84532 10/09/2012 OFFICE/OUTPATIENT VISIT EST Diagnosis: CYSTOCELE NOS[ICD9: 618.01] Diagnosis: GERD[ICD9: 530.81] Diagnosis: VAGINITIS[ICD9: 623.5] Yvette HYLTON R DO [address] [address] CPT-4: 68537 03/28/2012 ([id number]) OFFICE/OUTPATIENT VISIT EST Diagnosis: HYPOTHYROIDISM[ICD9: 244.9] Diagnosis: HYPERLIPIDEMIA NEC/NOS[ICD9: 272.4] Diagnosis: HYPERTENSION[ICD9: 401.9] Diagnosis: ANEMIA NOS[ICD9: 285.9] Yvette TAYLOR ER DO [address] [address] CPT-4: 90265 03/18/2012 OFFICE/OUTPATIENT VISIT EST Diagnosis: CERUMEN IMPACTION[ICD9: 380.4] Diagnosis: OTALGIA[ICD9: 388.70] Reyna DAVID DO [address] [address] CPT-4: 88271 2012 OFFICE/OUTPATIENT VISIT EST Diagnosis: COUGH[ICD9: 786.2] Diagnosis: Cystocele[ICD9: 618.01] Diagnosis: VAGINITIS[ICD9: 623.5] Diagnosis: ROUTINE GYNE EXAM[ICD9: V72.31] Yvette DAVID DO [address] [address] CPT-4: 71304 09/27/2011 SPECIMEN HANDLING Diagnosis: [ICD9: ] Diagnosis: [ICD9: ] Diagnosis: [ICD9: ] Diagnosis: [ICD9: ] Yvette DAVID DO [address] [address] CPT-4: 28382 09/27/2011 OFFICE/OUTPATIENT VISIT EST Diagnosis: PHARYNGITIS, ACUTE[ICD9: 462] Diagnosis: URI, ACUTE[ICD9: 465.9] Yvette VILLAVICENCIO DO [address] [address] CPT-4: 94265 09/13/2011 OFFICE/OUTPATIENT VISIT EST Diagnosis: PHARYNGITIS, ACUTE[ICD9: 462] Diagnosis: COUGH[ICD9: 786.2] Yvette DAVID DO [address] [address] CPT-4: 96132 08/07/20 11 ([id number]) OFFICE/OUTPATIENT VISIT [facility] [address] [place] [address] CPT-4: 37142 01/04/2011 ([id number]) OFFICE/OUTPATIENT VISIT, [facility] [address] [place] [address] CPT-4: 23410 02/14/2010 ([id number]) OFFICE/OUTPATIENT VISIT, [facility] [address] [place] [address] CPT-4: 13777 02/07/2010 Plan of Care Planned Activity Notes Codes Status Date Visit Diagnosis Plan: Hospital discharge follow-up Dis cussion: Discussed ER visit with patient and her daughter-- waiting on report to be faxed to clinic. ICD-9 : V67.59 ICD-10 : Z09 08/07/2022 Visit Diagnosis Plan: Right humeral fracture Discussio n: Start Tramadol 50-100mg Q6hr-- discussed 1 pill for pain level <6 and 2 pills if pain >6. Continue Tylenol prn-- no more than 4g in 24 hours. Continue to rest, ice, and wear sling. Sling adjusted to support better. Appt tomorrow with Dr. Steinberg. ICD-9 : 812.20 ICD-10 : S42.301A 08/07/2022 Visit Diagnosis Plan: Right rib fracture Discussion: C ontinue pain management as above. ICD-9 : 807.00 ICD-10 : S22.31XA 08/07/2022 Appointment: Patricia Euceda WPtel: [address] [id number] [facility] 08/07/2022 Patient Education: tramadol- [employer] Coupon [id number] Completed 08/07/2022 Visit Diagnosis Plan: Stress Recommendations: Increase effexor XR to 75mg daily Follow Up: 6 months Recommendations: Increase effexor XR to 75mg daily ICD-9 : V62.89 ICD-10 : F43.9 08/02/2022 Visit Diagnosis Plan: Essential (primary) hypertension Discussion: Stable ICD-9 : 401.1 ICD-10 : I10 08/02/2022 Visit Diagnosis Plan: Atrial fibrillation and flutter Discussion: Cardiology stopped amiodarone ICD-9 : 427.31 ICD-10 : I48.91 08/02/2022 Visit Diagnosis Plan: Cough Discussion: Patient wants to stop inhaler Will do mucinex DM in AM and add singulair at night [id number] ICD-9 : 786.2 ICD-10 : R05.9 08/02/2022 Appointment: Yvette David WPtel: [facility] [place] [phone] [place] FOLLOW UP 08/02/2022 Patient Education: Singulair- [employer] Coupon [phone] [email or web address] Completed 08/02/2022 Visit Diagnosis Plan: Atrial fibrillation and flutter Discussion: Increase metoprolol to 50mg po BID Increase amiodarone to 200mg po BID Fwup 1month Defers flu shot ICD-9 : 427.31 ICD-10 : I48.91 06/26/2022 Appointment: Yvette David WPtel: [address] [place], [place] [phone] [place] FOLLOW UP 06/26/2022 Patient Education: metoprolol succinate- [employer] Co upon [phone] [email or web address] Completed 06/26/2022 Referral: Lino Davila [address] [place] [address] [id number] [place] Completed 05/23/2022 Visit Diagnosis Plan: Skin cancer of arm Discussion: Nestor santana obtain pathology results from Dr. Eng--patient states was told was a melanoma but not instructed on any follow up ICD-9 : 173.60 ICD-10 : C44.601 05/22/2022 Visit Diagnosis Plan: Chronic atrial fibrillation Disc ussion: Had cardioversion and lasted 24hrs Cardiology and EP discussed anti arrhythmics and she deferred at the time Will do low dose trial of amiodarone 200mg daily and fwup in 1month ICD-9 : 427.31 ICD-10 : I48.20 05/22/2022 Visit Diagnosis Plan: Essential hypertension Discussio n: BP up and down depending on pulse ICD-9 : 401.9 ICD-10 : I10 05/22/2022 Visit Diagnosis Plan: Mild chronic obstructive pulmona ry disease Discussion: States worse time is Fall so will plan on Trelagy trial starting June 24 and then fwup 6weeks after that ICD-9 : 496 ICD-10 : J44.9 05/22/2022 Appointment: Yvette David WPtel: [address] [place], [place] [phone] FOLLOW UP 05/22/2022 Referral: Anuj Eng WPtel: [address] Referral Appointment Confirmed 03/08/2022 Appointment: Yvette David WPtel: [address] [place], [place] [phone] LAB 02/28/2022 Visit Diagnosis Plan: Unspecified atrial flutter Discu ssion: Referral to Dr. Davila due to ongoing issues--pulse jumps from 40s to 100s and has dizziness as well as worsening dyspnea ICD-10 : I48.92 02/27/2022 Visit Diagnosis Plan: Atypical nevus of right forearm Discussion: Referral to Dr. Eng for removal--discussed will need to hold Xarelto ICD-9 : 216.6 ICD-10 : D22.61 02/27/2022 Visit Diagnosis Plan: Atrial fibrillation and flutter Discussion: Will return later this week for updated fasting labs ICD-9 : 427.31 ICD-10 : I48.91 02/27/2022 Appointment: Yvette David WPtel: [address] [place], [place] [phone] ACUTE ILLNESS 02/27/2022 Care Plan: Referral Order SNOMED-CT : 30 [id number] Pending 02/27/2022 Care Plan: Referral Order SNOMED-CT : 30 [id number] Pending 02/27/2022 Appointment: Yvette David WPtel: [address] [place], [place] [phone] US CANCELED 12/06/2021 Visit Diagnosis Plan: Anxiety Discussion: Improving wi th effexor--wants to keep dose the same ICD-9 : 300.00 ICD-10 : F41.9 11/23/2021 Appointment: Yvette David WPtel: [address] [place], [place] [phone] FOLLOW UP 11/23/2021 Visit Diagnosis Plan: Anxiety Discussion: Restart effe xor XR at 37.5mg daily Stress Reducers Fwup 6 weeks No tremors noted today ICD-9 : 300.00 ICD-10 : F41.9 10/12/2021 Appointment: Yvette David WPtel: [phone] ACUTE ILLNESS 10/12/2021 Visit Plan: Supportive care. Rest, Fluid s, Tylenol/Motrin prn fever or bodyaches. Notify if worsening symptoms. 08/09/2021 Visit Diagnosis Plan: Nasopharyngitis Discussion: Supp ortive care, rest, fluids, tylenol/ibuprofen, cool-mist humidifier, throat lozenges, can try warm salt water gargles. Recommended flonase for allergy symptoms. Return to clinic if no improvement, worsening, or for any concerns. Follow Up: As needed ICD-9 : 460 ICD-10 : J00 08/09/2021 Visit Diagnosis Plan: Acute foreign body of right ear canal Discussion: Rubber tip of hearing aid lodged deep in external canal- removed intact with curved hemostat ICD-9 : 931 ICD-10 : T16.1XXA 08/09/2021 Visit Diagnosis Plan: Contact with and (suspected) exp osure to covid-19 Discussion: Covid and flu negative ICD-9 : V01.79 ICD-10 : Z20.822 08/09/2021 Visit Diagnosis Plan: Acute foreign body of left ear c anal, initial encounter Discussion: Rubber tip of hearing aid lodged deep in external canal- removed intact with curved hemostat ICD-9 : 931 ICD-10 : T16.2XXA 08/09/2021 Appointment: Jessica Martina WPtel: [phone] [phone] ACUTE ILLNESS 08/09/2021 Patient Education: Patient Medication Summary Completed 08/09/2021 Visit Diagnosis Plan: Hypothyroidism Discussion: Lab s table ICD-9 : 244.9 ICD-10 : E03.9 07/28/2021 Visit Diagnosis Plan: Paroxysmal atrial fibrillation D iscussion: Saw Dr. Kaye last week Jose on meds ICD-9 : 427.31 ICD-10 : I48.0 07/28/2021 Visit Diagnosis Plan: Essential (primary) hypertension Discussion: Stable Had Moderna booster Defers flu shot Fwup in Spring ICD-9 : 401.1 ICD-10 : I10 07/28/2021 Visit Diagnosis Plan: Hyperglycemia, unspecified Discu ssion: HbA1C stable ICD-9 : 790.29 ICD-10 : R73.9 07/28/2021 Appointment: Yvette David WPtel: [address] [place], [place] [phone] FOLLOW UP 07/28/2021 Appointment: Yvette David WPtel: [address] [place], [place] [phone] US LAB 07/20/2021 Visit Diagnosis Plan: Grieving Discussion: Restart Eff exor XR 37.5mg po q AM ICD-9 : 309.0 ICD-10 : F43.21 05/12/2021 Visit Diagnosis Plan: Inflamed seborrheic keratosis Di scussion: Cryotherapy as above ICD-9 : 702.11 ICD-10 : L82.0 05/12/2021 Appointment: Yvette David WPtel: [address] [place], [place] [phone] US FOLLOW UP 05/12/2021 Appointment: Yvette David WPtel: [phone] US assisted patient with opening her eye drops for cataract liane an (sera) CANCELED 03/22/2021 Visit Diagnosis Plan: Rhus dermatitis Discussion: Marielena log 40mg IM x1 Can continue TAC ICD-9 : 692.6 ICD-10 : L25.5 03/08/2021 Appointment: Yvette David WPtel: [phone] US FOLLOW UP 03/08/2021 Visit Diagnosis Plan: Depression Discussion: Feeling m uch better on effexor so will continue current dose and fwup 3mos ICD-9 : 311 ICD-10 : F32.9 02/03/2021 Visit Diagnosis Plan: Mixed hyperlipidemia Discussion: Stable Lab discussed ICD-9 : 272.4 ICD-10 : E78.2 02/03/2021 Visit Diagnosis Plan: Essential hypertension Discussio n: Stable ICD-9 : 401.9 ICD-10 : I10 02/03/2021 Visit Diagnosis Plan: Hyperglycemia, unspecified Discu ssion: Stable ICD-9 : 790.29 ICD-10 : R73.9 02/03/2021 Visit Diagnosis Plan: Chronic atrial fibrillation Disc ussion: Stable Saw Dr. Kaye recently and he did a stress test ICD-9 : 427.31 ICD-10 : I48.20 02/03/2021 Appointment: Yvette David WPtel: [address] [place], [place] [phone] US FOLLOW UP 02/03/2021 Appointment: Yvette David WPtel: [address] [place], [place] [phone] US LAB 01/31/2021 Visit Diagnosis Plan: Chronic atrial fibrillation Disc ussion: Sees Dr. Kaye next week ICD-9 : 427.31 ICD-10 : I48.20 01/04/2021 Visit Diagnosis Plan: Vertigo Discussion: Scopalamine patch ICD-9 : 780.4 ICD-10 : R42 01/04/2021 Visit Diagnosis Plan: Depression Discussion: Stress Re ducers Effexor trial Fwup 1month ICD-9 : 311 ICD-10 : F32.9 01/04/2021 Visit Diagnosis Plan: Cerumen impaction Discussion: Re ferral to ENT to clean ears ICD-9 : 380.4 ICD-10 : H61.20 01/04/2021 Appointment: Yvette David WPtel: [address] [place], [place] [phone] ACUTE ILLNESS 01/04/2021 Appointment: Yvette David WPtel: [address] [place], [place] [phone] BP CHECK 10/05/2020 Visit Diagnosis Plan: Chronic atrial fibrillation Disc ussion: Due to symptomatic bradycardia will decrease metoprolol ER to 25mg po BID Bring by BP and pulse readings in 2 weeks ICD-9 : 427.31 ICD-10 : I48.20 09/20/2020 Appointment: Yvette David WPtel: [address] [place], [place] [phone] ACUTE ILLNESS 09/20/2020 Appointment: Yvette David WPtel: [address] [place], [place] [phone] NURSE SERVICES 05/28/2020 Visit Diagnosis Plan: Dysplastic nevus of right lower extremity Discussion: Removal as above and sent to pathology Return in 10 days for suture removal ICD-9 : 216.7 ICD-10 : D23.71 05/19/2020 Appointment: Yvette David WPtel: [address] [place], [place] [phone] FOLLOW UP 05/19/2020 Visit Diagnosis Plan: Diarrhea Discussion: Hold pradax a and see if diarrhea resolves--needs to hold blood thinner the next week for biopsy anyway Will need stool studies if does not resolve ICD-9 : 787.91 ICD-10 : R19.7 05/11/2020 Visit Diagnosis Plan: Sleep apnea Discussion: Addendum --we did discuss patient's CPAP use and even though she does not like using the CPAP she is using it routinely and continues to need and benefit from the use of the CPAP due to her atrial fibrillation ICD-9 : 780.57 ICD-10 : G47.30 05/11/2020 Visit Diagnosis Plan: Hypotension Discussion: Decrease Cardizem CD to 120mg po BID Fwup 1 week for biopsy of nevi to left ankle ICD-9 : 458.9 ICD-10 : I95.9 05/11/2020 Visit Diagnosis Plan: Encounter for gene [facility] adult medical examination without abnormal findings Discussion: Mediterranean diet Combinati on of cardio and weight bearing exercise Lab discussed Recommend flu shot in next 1-2mos ICD-9 : V70.9 ICD-10 : Z00.00 05/11/2020 Visit Diagnosis Plan: Chronic atrial fibrillation Disc ussion: Discussed xarelto trial Patient wants to just do aspirin but discussed that aspirin would not protect her from stroke risk of a fib ICD-9 : 427.31 ICD-10 : I48.20 05/11/2020 Appointment: Yvette David WPtel: [phone] [phone] US Annual Well Visit 05/11/2020 Appointment: Yvette David WPtel: [phone] [phone] [facility] 05/05/2020 Visit Diagnosis Plan: Chronic pruritic rash in adult D iscussion: Improved with DC shemar kendrick Discussed all options including warfarin, pradaxa and xarelto--patient just wants to continue with aspirin until she sees Dr. Kaye next year ICD-9 : 698.8 ICD-10 : L29.8 02/11/2020 Visit Diagnosis Plan: Paroxysmal atrial fibrillation D iscussion: Discussed risk of stroke with no blood thinner but patient wants to just stay on aspirin She does see Dr. Kaye next month ICD-9 : 427.31 ICD-10 : I48.0 02/11/2020 Appointment: Yvette David WPtel: [address] [place], [place] [phone] FOLLOW UP 02/11/2020 Visit Diagnosis Plan: Dermatitis Discussion: Kenalog 4 0mg IM now x1 ICD-9 : 692.9 ICD-10 : L30.9 01/28/2020 Visit Diagnosis Plan: Chronic pruritic rash in adult D iscussion: Hydroxyzine TID Hold spironolactone Hold Pantoprazole Hypoallergenic soap and lotion Tide Free and Bounce Free Call in 1 week on how doing Discussion: Hydroxyzine TID Hold spironolactone Hold Pantoprazole Hypoallergenic soap and lotion Tide Free and Bounce Free ICD-9 : 698.8 ICD-10 : L29.8 01/28/2020 Appointment: Yvette David WPtel: [address] [place] [phone] ACUTE ILLNESS 01/28/2020 Patient Education: hydroxyzine HCl- OptimizeRX Coupon [id number] [email or web address]://www.MetaIntell/sampleLegal Shine/resources/getResource/61/[email or web address] Completed 01/28/2020 Visit Diagnosis Plan: Diarrhea, unspecified Discussion : Discussed may be stress vs gallbladder etiology ICD-9 : 787.91 ICD-10 : R19.7 01/05/2020 Visit Diagnosis Plan: Generalized pruritus Discussion: Discussed may be stress or could be drug related like the Triam/HCTZ ICD-9 : 698.9 ICD-10 : L29.9 01/05/2020 Visit Diagnosis Plan: Dizziness Discussion: Will updat e lab ICD-9 : 780.4 ICD-10 : R42 01/05/2020 Appointment: Yvette David WPtel: [address] [place], [place] [phone] ACUTE ILLNESS 01/05/2020 Appointment: Yvette David WPtel: [address] [place], [place] [phone] LAB 12/05/2019 Appointment: Yvette David WPtel: [phone] [phone] US LAB 11/05/2019 Visit Diagnosis Plan: Dizziness and giddiness Discussi on: Start Vestibular Therapy ICD-9 : 780.4 ICD-10 : R42 10/29/2019 Visit Diagnosis Plan: Chronic atrial fibrillation Disc ussion: Continue eliquis ICD-9 : 427.31 ICD-10 : I48.20 10/29/2019 Visit Diagnosis Plan: Renal insufficiency Discussion: Hydrate Continue off diuretic and celebrex Check Chem 7 in 1 week ICD-9 : 593.9 ICD-10 : N28.9 10/29/2019 Appointment: Yvette David WPtel: [address] [place], [place] [phone] FOLLOW UP 10/29/2019 Appointment: Yvette David WPtel: [phone] [phone] UA 10/23/2019 Appointment: Yvette David WPtel: [address] [place] [phone] US LAB 10/21/2019 Visit Diagnosis Plan: Dizziness Discussion: ivf given in office and meclizine prescribed to take as directed. patient is returning tomorrow for labs so will assess how she's feeling at that time. ICD-9 : 780.4 ICD-10 : R42 10/20/2019 Visit Diagnosis Plan: Gastritis Discussion: 1 liter of ns given in office to assist with overall fatigue. was wanting to do blood work but patient is due for routine fasting labs and she ate breakfast this am. patient states she would rather rtc tomorrow for fasting labs so she wouldn't have her labs abnormal. meclizine prescribed to assist with nausea and vertigo and instructed to use at hs. ICD-9 : 535.50 ICD-10 : K29.70 10/20/2019 Visit Diagnosis Plan: Cerumen impaction Discussion: ea r was flushed with warm water. patient tolerated well. ICD-9 : 380.4 ICD-10 : H61.20 10/20/2019 Appointment: [facility] [facility] 10/20/2019 Patient Education: meclizine- OptimizeRX Coupon [id number] https://www.MetaIntell/sampleLegal Shine/resources/getResource/61/[email or web address]-cn Completed 10/20/2019 Appointment: Yvette David WPtel: [address] [place], [place] [phone] US Canceled, Said patient was feeling lots better after patch. will reschedule if need be. CANCELED 10/16/2019 Visit Diagnosis Plan: Paroxysmal atrial fibrillation D iscussion: DC HCTZ Decrease metoprolol to 50mg po BID Add diltiazem CD 120mg po q AM BP and pulse check in 2 weeks Monitor BP and pulse at home Discussed EP referral ICD-9 : 427.31 ICD-10 : I48.0 07/07/2019 Appointment: Yvette David WPtel: [address] [place], [place] [phone] US FOLLOW UP 07/07/2019 Visit Diagnosis Plan: Essential (primary) hypertension Discussion: Increase HCTZ to 25mg daily Call in 1 week with BP readings ICD-9 : 401.9 ICD-10 : I10 05/01/2019 Appointment: Yvette David WPtel: [address] [place], [place] [phone] FOLLOW UP 05/01/2019 Visit Diagnosis Plan: Essential (primary) hypertension Discussion: Change metoprolol to 50mg po q AM and 100mg po q PM Add HCTZ 12.5mg po q AM Monitor home BP and pulse Recheck 2 weeks Start Cardiac Rehab or Wellness ICD-9 : 401.1 ICD-10 : I10 04/15/2019 Appointment: Yvette David WPtel: [address] [place], [place] [phone] FOLLOW UP 04/15/2019 Patient Education: hydrochlorothiazide- OptimizeRX Cou ministerio [id number] [email or web address].[email or web address]/resources/getResource/61/[email or web address] Completed 04/15/2019 Appointment: Yvette Davidtel: [address] [place], [place] [phone] US LAB 04/04/2019 Care Plan: US EXAM CHEST US of left breast LOINC : 62031-7 Pending 03/17/2019 Visit Diagnosis Plan: Hypothyroidism, unspecified Disc ussion: Stable ICD-9 : 244.9 ICD-10 : E03.9 11/26/2018 Visit Diagnosis Plan: Paroxysmal atrial fibrillation D iscussion: Stable ICD-9 : 427.31 ICD-10 : I48.0 11/26/2018 Visit Diagnosis Plan: Encounter for [facility] adult medical examination without abnormal findings Discussion: Mediterranean diet Combinati on of cardio and weight bearing exercise Recommend Shingrix Lab and fwup in March ICD-9 : V70.9 ICD-10 : Z00.00 11/26/2018 Visit Diagnosis Plan: Essential (primary) hypertension Discussion: Stable ICD-9 : 401.1 ICD-10 : I10 11/26/2018 Appointment: Yvette Davidtel: [address] [place], [place] [address] Annual Well Visit 11/26/2018 Appointment: Yvette Davidtel: [address] [place], [place] [address] US LAB 10/07/2018 Visit Diagnosis Plan: Presence of right artificial kne e joint Discussion: Doing well--has been release from therapy and doing home stretches ICD-9 : V43.65 ICD-10 : Z96.651 08/08/2018 Visit Diagnosis Plan: Essential (primary) hypertension Discussion: Stable Follow Up: 4 months ICD-9 : 401.9 ICD-10 : I10 08/08/2018 Visit Diagnosis Plan: Unspecified hearing loss, left e ar Discussion: Has fwup with ENT next month ICD-9 : 389.9 ICD-10 : H91.92 08/08/2018 Appointment: Yvette Davidtel: [address] [place], [place] [phone] FOLLOW UP 08/08/2018 Appointment: Natalee Gray [address] [facility] [address] CANCELED 07/18/2018 Visit Diagnosis Plan: Sudden idiopathic hearing loss, left ear Discussion: Will see if improves after clearing of cerumen but discussed that this could be permanent if recent episode was a viral etiology ICD-9 : 388.2 ICD-10 : H91.22 06/25/2018 Visit Diagnosis Plan: Vertigo of central origin, bilat eral Discussion: See PT for vestibular therapy and home exercises Decrease meclizine to 25mg po q HS Did discuss possible migraine etiology Follow Up: 1 months ICD-9 : 386.2 ICD-10 : H81.43 06/25/2018 Visit Diagnosis Plan: Impacted cerumen, bilateral Disc ussion: Bilateral ears flushed with warm water with peroxide with ear syringe until clear, TMs intact, peroxide drops instilled ICD-9 : 380.4 ICD-10 : H61.23 06/25/2018 Visit Diagnosis Plan: Essential (primary) hypertension Discussion: Stable ICD-9 : 401.1 ICD-10 : I10 06/25/2018 Appointment: Yvette David WPtel: [address] [place], [place] [phone] [facility] Follow Up 06/25/2018 Patient Education: Patient Medication Summary Completed 06/25/2018 Appointment: Yvette David WPtel: [address] [place], [place] [phone] BP CHECK 05/20/2018 Patient Education: Patient Medication Summary Completed 05/20/2018 Visit Diagnosis Plan: Essential (primary) hypertension Discussion: Continue increased dose of metoprolol 75mg po BID Add cozaar 25mg po q AM Clonidine 0.1mg to use prn for BP greater than 160/95 Monitor BP 2-3 times a week and return in 2 weeks for BP check and with home readings Sees Cardiology in 3weeks ICD-9 : 401.1 ICD-10 : I10 05/10/2018 Appointment: Yvette David WPtel: [phone] [phone] FOLLOW UP 05/10/2018 Patient Education: Patient Medication Summary Completed 05/10/2018 Visit Diagnosis Plan: Dizziness and giddiness Discussi on: Vestibular exercises ICD-9 : 780.4 ICD-10 : R42 05/03/2018 Visit Diagnosis Plan: Allergic rhinitis due to pollen Discussion: Kenalog 40mg IM x1 Add Flonase ICD-9 : 477.9 ICD-10 : J30.1 05/03/2018 Visit Diagnosis Plan: Essential (primary) hypertension Discussion: Hold Celebrex Monitor BP Recheck next week ICD-9 : 401.9 ICD-10 : I10 05/03/2018 Appointment: Yvette David WPtel: [phone] [phone] ACUTE ILLNESS 05/03/2018 Patient Education: Patient Medication Summary Completed 05/03/2018 Visit Diagnosis Plan: Essential (primary) hypertension Discussion: Get BP cuff and monitor BP and pulse Bring in BP and pulse readings with cuff in 2 weeks ICD-9 : 401.1 ICD-10 : I10 04/22/2018 Visit Diagnosis Plan: Obstructive sleep apnea (adult) (pediatric) Discussion: Would like to DC CPAP because feels no different but discussed that could worsen a fib as well as pulmonary HTN ICD-9 : 327.23 ICD-10 : G47.33 04/22/2018 Visit Diagnosis Plan: Paroxysmal atrial fibrillation D iscussion: Sees cardiology in May and having testing done prior to appointment ICD-9 : 427.31 ICD-10 : I48.0 04/22/2018 Visit Diagnosis Plan: Unilateral primary osteoarthriti s, right knee Discussion: Scheduled for right TKR by Dr. Vo in June ICD-9 : 716.96 ICD-10 : M17.11 04/22/2018 Visit Diagnosis Plan: Hypothyroidism, unspecified Disc ussion: Most recent lab normal ICD-9 : 244.9 ICD-10 : E03.9 04/22/2018 Appointment: Yvette David WPtel: [phone] US FOLLOW UP 04/22/2018 Patient Education: Patient Medication Summary Completed 04/22/2018 Visit Diagnosis Plan: Zoster without complications Dis cussion: topical acyclovir prescribed for symptom relief. discussed with patient getting an updated shingles vaccine with shingrix. instructed patient to call insurance company to see if vaccine is covered. call or rtc if no improvement later this week. ICD-9 : 053.9 ICD-10 : B02.9 03/05/2018 Appointment: [facility]alee Gray [facility] [facility] 03/05/2018 Patient Education: Patient Medication Summary Completed 03/05/2018 Visit Diagnosis Plan: Impacted cerumen, bilateral Disc ussion: ears were cleaned out with warm water using lavage. patient tolerated well and once cleaned out, TM was clear. instructed patient to use hydrogen peroxide a couple times a month to prevent cerumen impaction in the future. call with any concerns. ICD-9 : 380.4 ICD-10 : H61.23 02/19/2018 Appointment: Natalee Gray [facility] [facility] 02/19/2018 Patient Education: Patient Medication Summary Completed 02/19/2018 Appointment: Yvette David WPtel: [phone] [phone] LAB 02/13/2018 Patient Education: Patient Medication Summary Completed 02/13/2018 Patient Education: Patient Medication Summary Completed 02/06/2018 Visit Diagnosis Plan: Essential (primary) hypertension Discussion: Stable ICD-9 : 401.9 ICD-10 : I10 10/18/2017 Visit Diagnosis Plan: Paroxysmal atrial fibrillation D iscussion: Discussed risk for CVA and CHADsVASC score Will check with cardiology on need for anticoagulation as well as stress test Will increase aspirin to 325mg daily in meantime Follow Up: 6 months ICD-9 : 427.31 ICD-10 : I48.0 10/18/2017 Visit Diagnosis Plan: Obstructive sleep apnea (adult) (pediatric) Discussion: Continue CPAP and try to use all night ICD-9 : 327.23 ICD-10 : G47.33 10/18/2017 Appointment: Yvette David WPtel: [address] [place], [place] [phone] FOLLOW UP 10/18/2017 Patient Education: Patient Medication Summary Completed 10/18/2017 Appointment: Yvette David WPtel: [address] [place], [place] [phone] LAB 10/15/2017 Patient Education: Patient Medication Summary Completed 10/15/2017 Visit Diagnosis Plan: Acute sinusitis, unspecified Dis cussion: Supportive Care ICD-9 : 461.9 ICD-10 : J01.90 07/24/2017 Visit Diagnosis Plan: Impacted cerumen, bilateral Disc ussion: ear lavage to be used to bilateral ears to remove cerumen. educated patient on using debrox at home to assist with removal of ear wax. ICD-9 : 380.4 ICD-10 : H61.23 07/24/2017 Appointment: Natalee Gray [address] [place] [address] ACUTE ILLNESS 07/24/2017 Patient Education: Patient Medication Summary Completed 07/24/2017 Referral: Jey Kaye WPtel: [address] [facility] 300 [id number] Referral Initiated 07/05/2017 Patient Education: Patient Medication Summary Completed 07/03/2017 Care Plan: MAMMOGRAM SCREENING LOINC : 2 6347-5 Pending 07/03/2017 Visit Diagnosis Plan: Obstructive sleep apnea (adult) (pediatric) Discussion: Continue with CPAP ICD-9 : 327.23 ICD-10 : G47.33 06/14/2017 Visit Diagnosis Plan: Tachycardia, unspecified Discuss ion: Increase toprol XL 25mg daily See cardiology for possible stress test Avoid alcohol ICD-9 : 785.0 ICD-10 : R00.0 06/14/2017 Appointment: Yvette David WPtel: [address] [place], [place] [phone] FOLLOW UP 06/14/2017 Patient Education: Patient Medication Summary Completed 06/14/2017 Care Plan: Referral Order SNOMED-CT : 30 [id number] Pending 06/14/2017 Visit Plan: ERx for Valtrex, system won' t allow ERx for Prednisone so it is called 10mg 2 po bid x 3 days then 1 po bid x 3 days then 1 po daily x 3 days then 1/2 po daily x 3 days then d/c She declines gabapentin or pain meds Anticipatory guidance discussed. 06/01/2017 Appointment: Demi Rocha [facility]Ptel[facility] [phone] [facility] [facility] 06/01/2017 Patient Education: Patient Medication Summary Completed 06/01/2017 Visit Diagnosis Plan: Tachycardia, unspecified Discuss ion: Check TSH and free T4 Obtain sleep study results ICD-9 : 785.0 ICD-10 : R00.0 03/30/2017 Visit Diagnosis Plan: Essential (primary) hypertension Discussion: Continue Toprol at current dose ICD-9 : 401.9 ICD-10 : I10 03/30/2017 Visit Diagnosis Plan: Other vitamin B12 deficiency ane mias Discussion: Update B12 level ICD-9 : 281.1 ICD-10 : D51.8 03/30/2017 Appointment: Yvette David WPtel: [phone] [facility] 7/6 lm ~sl FOLLOW UP 03/30/2017 Patient Education: Patient Medication Summary Completed 03/30/2017 Visit Diagnosis Plan: Essential (primary) hypertension Discussion: Add ASA 81mg Continue Toprol 25 mg ICD-9 : 401.9 ICD-10 : I10 01/17/2017 Visit Diagnosis Plan: Snoring Discussion: Sleep study ICD-9 : 786.09 ICD-10 : R06.83 01/17/2017 Visit Diagnosis Plan: Other chest pain Discussion: EKG ICD-9 : 786.59 ICD-10 : R07.89 01/17/2017 Visit Diagnosis Plan: Other fatigue Discussion: Sleep study ICD-9 : 780.79 ICD-10 : R53.83 01/17/2017 Appointment: Yvette David WPtel: [phone] [facility] 4/25 lm`sl FOLLOW UP 01/17/2017 Patient Education: Patient Medication Summary Completed 01/17/2017 Visit Diagnosis Plan: Other fatigue Discussion: Vitami n B12 Decrease gabapentin to 300mg-monitor for increased paresthesias in bilat foot ICD-9 : 780.79 ICD-10 : R53.83 12/18/2016 Visit Diagnosis Plan: Mixed hyperlipidemia Discussion: Reviewed labs Continue simvastatin ICD-9 : 272.4 ICD-10 : E78.2 12/18/2016 Visit Diagnosis Plan: Essential (primary) hypertension Discussion: Echo scheduled ICD-9 : 401.9 ICD-10 : I10 12/18/2016 Visit Diagnosis Plan: Cardiac murmur, unspecified Disc ussion: Check 2-D ECHO ICD-9 : 785.2 ICD-10 : R01.1 12/18/2016 Visit Diagnosis Plan: Hypothyroidism, unspecified Disc ussion: REviewed labs ICD-9 : 244.9 ICD-10 : E03.9 12/18/2016 Visit Diagnosis Plan: Polyneuropathy, unspecified Disc ussion: Decrease gabapentin r/t fatigue and monitor for increased paresthesias Vitamin B12 ICD-9 : 355.9 ICD-10 : G62.9 12/18/2016 Visit Diagnosis Plan: Encounter for [facility] adult medical examination without abnormal findings Discussion: Increase activity and contin ue healthy eating Continune using urinary incontinence pads at night for nocturia Reviewed labs ICD-9 : V70.9 ICD-10 : Z00.00 12/18/2016 Appointment: Yvette David WPtel: [phone] [phone] US 11/13 confirmed ~sl Annual Well Visit 12/18/2016 Patient Education: Patient Medication Summary Completed 12/18/2016 Appointment: Yvette David WPtel: [phone] [facility] [facility] LAB 12/11/2016 Patient Education: Patient Medication Summary Completed 12/11/2016 Visit Plan: Supportive care. Rest, Fluid s, Tylenol/Motrin prn fever or bodyaches. Notify if worsening symptoms. 11/02/2016 Visit NOS Plan: Plan Notes: Supportive care. Rest, Fluids... 11/02/2016 Visit Diagnosis Plan: URI, ACUTE Discussion: Supportiv e care Flonase Notify if worsens or persists ICD-9 : 465.9 ICD-10 : J06.9 11/02/2016 Visit Diagnosis Plan: Cough Discussion: Nelly curtis guanako ICD-9 : 786.2 ICD-10 : R05 11/02/2016 Appointment: Yvette David WPtel: [address] [place], [place] [phone] FOLLOW UP 11/02/2016 Appointment: Yvette David WPtel: [address] [place], [place] [phone] CANCELED 11/02/2016 Patient Education: Patient Medication Summary Completed 11/02/2016 Visit Diagnosis Plan: Acute upper respiratory infectio n, unspecified Discussion: Rx as above Discussed OTC meds and supportive care Notify if not improving so regimen can be changed before her upcoming trip in 2 weeks ICD-9 : 465.9 ICD-10 : J06.9 10/24/2016 Appointment: Elidia Calix [address] [place] [address] ACUTE ILLNESS 10/24/2016 Patient Education: Patient Medication Summary Completed 10/24/2016 Patient Education: Patient Medication Summary Completed 06/26/2016 Visit Plan: Office dip wnl/BP wnl Does s eem likely to be viral GI illness Supportive care with rxs as above Soft and bland diet Will need bloodwork if not improving 02/07/2016 Appointment: Elidia Calix [address] [place] [address] ACUTE ILLNESS 02/07/2016 Patient Education: Patient Medication Summary Completed 02/07/2016 Patient Education: Patient Medication Summary Completed 07/01/2015 Appointment: Yvette David WPtel: [address] [place], [place] [phone] LAB 05/27/2015 Patient Education: Patient Medication Summary Completed 05/27/2015 Visit Plan: Trial of Gralise 300mg at be dtime with 4 oz tonic water Sharron's solution soaks to feet Check TSH, Free T4, B12, CMP, HbA1C now Call in 2weeks 05/26/2015 Appointment: Yvette David WPtel: [phone] [facility] US 05/25/2015 confirmed w patient ACUTE ILLNESS 10/2014 Patient Education: Patient Medication Summary Completed 05/26/2015 Appointment: Yvette David WPtel: [phone] [phone] US Stool lab 02/19/2015 Patient Education: Patient Medication Summary Completed 02/19/2015 Appointment: Yvette David WPtel: [phone] [phone] US Stool lab 01/20/2015 Patient Education: Patient Medication Summary Completed 01/20/2015 Appointment: Yvette David WPtel: [address] [place] [phone] US LAB 12/15/2014 Patient Education: Patient Medication Summary Completed 12/15/2014 Appointment: Earline Morris WPtel: [address] [place], [place] [phone] ACUTE ILLNESS 11/30/2014 Patient Education: Patient Medication Summary Completed 11/30/2014 Appointment: Yvette David WPtel: [address] [place] [phone] US LAB 11/26/2014 Patient Education: Patient Medication Summary Completed 11/26/2014 Appointment: Yvette David WPtel: [address] [place], [place] [phone] US LAB 08/14/2014 Patient Education: Patient Medication Summary Completed 08/14/2014 Visit Plan: Defers bone density Proceed with colonoscopy Change omeprazole to protonix Due for fasting lab next month 07/23/2014 Appointment: Yvette David WPtel: [address] [place], [place] [phone] ACUTE ILLNESS 07/23/2014 Patient Education: Patient Medication Summary Completed 07/23/2014 Patient Education: Patient Medication Summary Completed 06/05/2014 Appointment: Earline Morris WPtel: [address] [place], [place] [phone] FOLLOW UP 03/09/2014 Patient Education: Patient Medication Summary Completed 03/09/2014 Appointment: Yvette David WPtel: [address] [place], [place] [phone] ACUTE ILLNESS 02/05/2014 Patient Education: Patient Medication Summary Completed 02/05/2014 Appointment: Yvette David WPtel: [address] [place], [place] [phone] LAB 02/04/2014 Patient Education: Patient Medication Summary Completed 02/04/2014 Appointment: Earline Morris WPtel: [address] [place], [place] [phone] ACUTE ILLNESS 05/12/2013 Patient Education: Patient Medication Summary Completed 05/12/2013 Visit Plan: MRI results discussed Discus sed epidural injections SI joint injection as above Continue Celebrex 200mg daily 04/07/2013 Appointment: Yvette David WPtel: [address] [place], [place] [phone] 04/04 left [facility] FOLLOW UP 04/07/2013 Patient Education: Patient Medication Summary Completed 04/07/2013 Visit Plan: Restart PT and epidural--may need updated MRI of L/S spine Tylenol prn Celebrex 200mg daily 03/31/2013 Appointment: Yvette David WPtel: [address] [place], [place] [phone] ACUTE ILLNESS 03/31/2013 Patient Education: Patient Medication Summary Completed 03/31/2013 Visit Plan: Injection to hip as above Pt will take Vimovo 500/20mg po daily for next week Call in 1wk on both hip and stomach Discussed that likely has arthritis in hip as well 10/09/2012 Appointment: Yvette David WPtel: [address] [place], [place] [phone] 10/08 Left message ACUTE ILLNESS 10/09/2012 Patient Education: Patient Medication Summary Completed 10/09/2012 Visit Plan: See urology--Dr. Hutchinson for cystocele Start Premarin vaginal Cream 1/2 gm vaginally twice weekly then repeat PAP in 3mos Continue nexium for 4 more weeks then start Zantac daily--notify if cough returns 03/28/2012 Appointment: Yvette David WPtel: [address] [place], [place] [phone] PAP 03/28/2012 Patient Education: Patient Medication Summary Completed 03/28/2012 Appointment: Yvette David WPtel: [address] [place] [phone] LAB 03/18/2012 Patient Education: Patient Medication Summary Completed 03/18/2012 Appointment: Reyna Colón WPtel: [address] [place], [place] [phone] OFFICE SURGERY 2012 Patient Education: Patient Medication Summary Completed 2012 Visit Plan: Pap done Kegel exercises--de fers meds or surgery eval at this time Mammo due in January DC symbicort 09/27/2011 Appointment: Yvette David WPtel: [address] [place] [phone] FOLLOW UP 09/27/2011 Patient Education: Patient Medication Summary Completed 09/27/2011 Visit Plan: Symbicort 160/4.5 2 p BID 09/13/2011 Appointment: Yvette David WPtel: [address] [place] [phone] ACUTE ILLNESS 09/13/2011 Patient Education: Patient Medication Summary Completed 09/13/2011 Visit Plan: Cefdinir and medrol dose pac k. Discussed if no improvement by Sunday will obtain chest x-ray and CBC with mycoplasma. 08/07/2011 Appointment: Reyna Colón WPtel: [address] [place], [place] [phone] ACUTE ILLNESS 08/07/2011 Patient Education: Patient Medication Summary Completed 08/07/2011 Appointment: Yvette David WPtel: [address] [place], [place] [phone] 07/13/2011 Patient Education: Patient Medication Summary Completed 07/13/2011 Appointment: Yvette David WPtel: [address] [place], [place] [phone] LAB 03/13/2011 Patient Education: Patient Medication Summary Completed 03/13/2011 Appointment: Yvette David WPtel: [address] [place], [place] [phone] BP CHECK 02/06/2011 Patient Education: Patient Medication Summary Completed 02/06/2011 Appointment: Yvette David WPtel: [address] [place], [place] [phone] BP CHECK 01/20/2011 Patient Education: Patient Medication Summary Completed 01/20/2011 Appointment: Yvette David WPtel: [address] [place], [place] [phone] BP CHECK 01/12/2011 Patient Education: Patient Medication Summary Completed 01/12/2011 Visit Plan: Increase Synthroid to 75mcg po daily Increase fish oil to BID Start daily Toprol XL 12.5mg BP check in 1wk TSH and Free T4 in 2mos. 01/04/2011 Appointment: Yvette David WPtel: [address] [place], [place] [phone] FOLLOW UP 01/04/2011 Patient Education: Patient Medication Summary Completed 01/04/2011 Appointment: Yvette David WPtel: [address] [place], [place] [phone] LAB 12/16/2010 Patient Education: Patient Medication Summary Completed 12/16/2010 Visit Plan: Start PT May need MRI 02/14/2010 Appointment: Yvette David WPtel: [phone] OFFICE SURGERY 02/14/2010 Patient Education: Patient Medication Summary Completed 02/14/2010 Visit Plan: 60 mgToradol injection. Flex eril and Refil on pain med. Follow up with Joann for back pain and possible steroid injection. Pt reports this pain started after lifting something heavy 2 wks ago. Pt. has been taking "2-3" flexeril but reports they don't work. Pt. has reported that she has been taking her husbands medication that in 2007. Discussed with pt. that Doctor Joann will see her in follow up. Possible treatments may be: manipulation, injection, or further study with referral. Pt understands that Dr. David will decide treatment plan and I am not promising she will receive an injection (steroid). 02/07/2010 Appointment: Reyna Colón WPtel: [address] [place], [place] [phone] ACUTE ILLNESS 02/07/2010 Patient Education: Patient Medication Summary Completed 02/07/2010 Appointment: Yvette David WPtel: [address] [place], [place] [phone] [facility] 12/22/2009 Patient Education: Patient Medication Summary Completed 12/22/2009 Instructions Comment Date . Supportive care. Rest, Fluids, Tyleno l/Motrin prn fever or bodyaches. Notify if worsening symptoms. 08/09/2021 . ERx for Valtrex, system won't allow ER x for Prednisone so it is called 10mg 2 po bid x 3 days then 1 po bid x 3 days then 1 po daily x 3 days then 1/2 po daily x 3 days then d/c She declines gabapentin or pain meds Anticipatory guidance discussed. 06/01/2017 . Supportive care. Rest, Fluids, Tyleno l/Motrin prn fever or bodyaches. Notify if worsening symptoms. 11/02/2016 . Office dip wnl/BP wnl Does seem likely to be viral GI illness Supportive care with rxs as above Soft and bland diet Will need bloodwork if not improving 02/07/2016 . Trial of Gralise 300mg at bedtime with 4 oz tonic water Sharron's solution soaks to feet Check TSH, Free T4, B12, CMP, HbA1C now Call in 2weeks 05/26/2015 . Defers bone density Proceed with colonoscopy Change omeprazole to protonix Due for fasting lab next month 07/23/2014 . MRI results discussed Discussed epidural injections SI joint injection as above Continue Celebrex 200mg daily 04/07/2013 . Restart PT and epidural--may need upda omayra MRI of L/S spine Tylenol prn Celebrex 200mg daily 03/31/2013 . Injection to hip as above Pt will take Vimovo 500/20mg po daily for next week Call in 1wk on both hip and stomach Discussed that likely has arthritis in hip as well 10/09/2012 . See urology--Dr. Hutchinson for cystocele Start Premarin vaginal Cream 1/2 gm vaginally twice weekly then repeat PAP in 3mos Continue nexium for 4 more weeks then start Zantac daily--notify if cough returns 03/28/2012 . Pap done Kegel exercises--defers meds or surgery eval at this time Mammo due in January DC symbicort 09/27/2011 . Symbicort 160/4.5 2 p BID 09/13/2011 . Cefdinir and medrol dose pack. Discus sed if no improvement by Sunday will obtain chest x-ray and CBC with mycoplasma. 08/07/2011 . Increase Synthroid to 75mcg po daily Increase fish oil to BID Start daily Toprol XL 12.5mg BP check in 1wk TSH and Free T4 in 2mos. 01/04/2011 . Start PT May need MRI 02/14/2010 . 60 mgToradol injection. Flexeril and R efil on pain med. Follow up with Joann for back pain and possible steroid injection. Pt reports this pain started after lifting something heavy 2 wks ago. Pt. has been taking "2-3" flexeril but reports they don't work. Pt. has reported that she has been taking her husbands medication that in 2007. Discussed with pt. that Doctor Joann will see her in follow up. Possible treatments may be: manipulation, injection, or further study with referral. Pt understands that Dr. Orender will decide treatment plan and I am not promising she will receive an injection (steroid). 02/07/2010 Medical Equipment No Medical Equipment data Health Concerns Section Health Concerns data not found Goals Section Goals data not found Interventions Section Interventions data not found Health Status Evaluations/Outcomes Section Health Status Evaluations/Outcomes data not found Advance Directives Filename Date [id number] 06/03/2012
--- OUTSIDE RECORDS SUMMARY | 2022-08-14 13:59 | XMS REPORT | Clinical Summary ---
Author Author [facility] Organization [facility] Address Unknown Phone Unavailable Care Team Providers Care Instructor Dramatic Arts Name Role Phone Yvette David MD PCP Source Comments Some departments are not documenting in the electronic medical record. If you d o not see the information that you expected, contact Release of Information in [facility] [employer] Information Management department at [phone] for further assistan ce in locating additional records.[facility] Allergies Comments Active Allergy Reactions Severity Noted Date Apixaban ITCHING Low 04/10/2022 Medications End Date Status Medication Sig Dispensed Refills Start Date Active levothyroxine (SYNTHROID) Take 88 mcg 0 88 mcg tablet by mouth daily. Active pantoprazole DR Take 40 mg by 0 (PROTONIX) 40 mg tablet mouth daily. Active venlafaxine XR (EFFEXOR Take 37.5 mg 0 XR) 37.5 mg capsule by mouth daily. Active metoprolol XL (TOPROL XL) Take 25 mg by 0 50 mg extended release mouth twice tablet daily. Active dilTIAZem CD (CARDIZEM Take 120 mg 0 CD) 120 mg capsule by mouth twice daily. Active coenzyme Q10 200 mg Take 200 mg 0 capsule by mouth 4 daily. Active cholecalciferol (vitamin Take 50 0 05/26 D3) (VITAMIN D3) 50 mcg tablets by 5 (2,000 unit) tablet mouth daily. Active prednisolone acetate Apply 1 drop 0 (PRED FORTE) 1 % to both eyes ophthalmic suspension daily. 09/16/2022 Active rivaroxaban (XARELTO) 10 Take 10 mg by 0 03/21 mg tablet mouth daily. 2 Active cyanocobalamin (VITAMIN Take 500 mcg 0 B-12) 500 mcg tablet by mouth daily. Active Problems Problem Noted Date Atrial fibrillation and flutter 04/10/2022 Overview: Per OV on 02/26/[address] Ludivina David 07/17/2017 - Holter: ([employer] S ystem) Rare PVCs, otherwise unremarkale holter monitor. 08/27/2017 - EVM: ([employer] Syst em) AF with RVR, frequent episodes of poorly controlled ventricular rate w hen he goes into that. 01/07/2021 - Stress ECHO: (Metrilo) Normal LV systolic function at rest with global increase in LV systolic fun ction after exercise. Total exercise time of 3 minutes and 23 secon ds with a peak ventricular rate of 155 representing 111% of maximum predic omayra HR. The maximum achieved work level was 5.4 METs. Normal EKG respons e to exercise without evidence of ischemia. Normal BP response to exerci se. Patietn did not experience CP during the test. Negative stress echo for inducible ischemia. Resting echo images and color doppler showed RA chamber enlargement. Mitral annular calcification and valve thicken ing without doppler evidence of leaflet mobility restriction. Mild AV stenosis due to valvular calcification with a calculated valve a liv of 1.75 cm2, a peak gradient of 17mmHg, a mean gradient of 10mmHg. Mod erate MVR. Moderate TVR with an estimated RV systolic pressure of 36mmH g indicating mild pulmonary HTN. Moderate DANIEL. PV calcifications and va lve thickening without doppler evidence of leaflet mobility restrictio n. Mild PVI. Mitral inflow doppler and tissue doppler indicated stage 1 di astolic dysfunction. Normal pericardium without evidence of effusio n. Normal dimensions of the aorta in views obtained without evidence of c oarctation of dilation. Normal atrial and ventricular septum without e vidence of defect or shunt via doppler. Bulging lumbar disc 04/10/2022 Overview: Per OV note on 07/19/[address] Kodi Kaye ([facility]) Dyspepsia 04/10/2022 Overview: Per OV note on 07/19/[address] Kodi Kaye ([facility]) GERD (gastroesophageal reflux disease) 04/10/2022 Overview: Per OV note on 07/19/[address] Kodi Kaye ([facility]) Trochanteric bursitis 04/10/2022 Overview: Per OV note on 07/19/[address] Kodi Kaye ([facility]) Hypothyroid 04/10/2022 Overview: Per OV note on 07/19/[address] Kodi Kaye ([facility]) Otalgia 04/10/2022 Overview: Per OV note on 07/19/[address] Kodi Kaye ([facility]) Bladder problem 04/10/2022 Overview: Per OV note on 07/19/[address] Kodi Kaye ([facility]) Immunizations Name Administration Dates Next Due Zoster Vaccine 2019, 12/10/2018 Recombinant, Adjuvanted (shingles) IM (vial 2 of 2)(SHINGRIX) Surgical History Surgery Date Site/Laterality Comments ELECTROCARDIOGRAM DOPPLER ECHOCARDIOGRAPHY HOLTER MONITOR EVENT MONITOR Medical History Medical History Date Comments Atrial fibrillation and flutter (HCC) 04/10/2022 Bulging lumbar disc 04/10/2022 Dyspepsia 04/10/2022 GERD (gastroesophageal reflux disease) 04/10/2022 Trochanteric bursitis 04/10/2022 Hypothyroid 04/10/2022 Otalgia 04/10/2022 Bladder problem 04/10/2022 Social History Date Tobacco Use Types Packs/Day Years Used Smoking Tobacco: Never Smokeless Tobacco: Never Comments Alcohol Use Standard Drinks/Week Yes 1 (1 standard drink = 0.6 o z pure alcohol) Sex Assigned at Date Recorded Not on file Obstetrics History Last Filed Vital Signs Reading Time Taken Comments Vital Sign 134/80 04/14/2022 1:28 PM CDT Blood Pressure 79 04/14/2022 1:28 PM CDT Pulse 36.8 C (98.2 F) 04/14/2022 1:28 PM CDT Temperature 18 04/14/2022 1:28 PM CDT Respiratory Rate 97% 04/14/2022 1:28 PM CDT Oxygen Saturation - - Inhaled Oxygen Concentration 80 kg (176 lb 6.4 oz) 04/14/2022 1:28 PM CDT Weight 177.8 cm (5' 10") 04/14/2022 1:28 PM CDT Height 25.31 04/14/2022 1:28 PM CDT Body Mass Index Plan of Treatment Health Maintenance Due Date Last Done Comments MEDICARE ANNUAL WELLNESS 1940 VISIT DTAP/TDAP VACCINES (1 - 1957 Tdap) PHYSICAL (COMPREHENSIVE) 1957 EXAM OSTEOPOROSIS 02/13/2004 SCREENING/MONITORING PNEUMOCOCCAL VACCINE (1 - 02/13/2004 PCV) COVID-19 VACCINE (4 - 09/14/2021 07/20/2021, Booster for Moderna 11/13/2020, series) 10/14/2020 ADVANCED CARE PLANNING 09/24/2021 DISCUSSION AND DOCUMENTATION DEPRESSION SCREENING 09/24/2021 INFLUENZA VACCINE 04/24/2022 SHINGLES RECOMBINANT Completed 2019, VACCINE 12/10/2018 Results Not on filefrom Last 3 Months Insurance Type Payer Benefit Subscriber ID Effective Phone Address Plan / Dates Group Medicare MEDICARE MEDICARE [id number] 2004-P [phone] [address] [place] [address] Medicare CIGNA CIGNA [id number] 2017- [phone] [address] MEDICARE Present [id number] [address] Care Teams Start Date End Date Instructor Dramatic Arts Relationship Specialty 03/05/22 Yvette David MD PCP - General Family [address] [place] [address]
--- OUTSIDE RECORDS SUMMARY | 2022-08-14 14:00 | XMS REPORT | CCD ---
Author Author Lucille David D.O. 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 Name Role Phone Yvette David D.O., PP Unavailable CCM Unavailable Summary Purpose Interface Exchange Insurance Providers Payer name Policy type / Coverage type Covered alliance party ID Effective Begin Date Effective End Date WPS MEDICARE PART B [place] Medicare Part B [id number] Unknown Cigna Medicare Part B [id number] Unknown Family History Family History data not found Social History Social History Element Codes Description Effective Dates Tobacco history SNOMED CT: [id number] Has never smoked or chewed tobacco 05/26/2015 [...] ICD-10: G62.9 ICD-9: 355.9 12/18/2016 Active 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 ICD-10: Z79.899 ICD-9: V58.69 [...] Fill Instructions tramadol 50 mg tablet RxNorm: 263240 Take 1-2 Tablet(s) Oral Every 6 hours as needed as needed for pain 08/07/2022 No Stop Date Active Effexor XR 75 mg capsule,extended release RxNorm: 799169 Take 1 Capsule(s) Oral QPM replaces 37.5mg done 08/02/2022 10/30/2022 Active Singulair 10 mg tablet RxNorm: 353833 Take 1 Tablet(s) Oral QPM 05/202201/28/2023 Active metoprolol succinate ER 50 mg tablet,extended release 24 hr RxNorm: 169268 1 Tablet(s) Oral two times a day 06/26/2022 12/22/2022 Active amiodarone 200 mg tablet RxNorm: 956377 Take 1 Tablet(s) Oral t wo times a day 06/26/2022 06/26/2022 Inactive venlafaxine ER 37.5 mg capsule,extended release 24 hr RxNorm : 862769 Take 1 Capsule(s) Oral QAM 06/16/2022 08/01/2022 Inactive simvastatin 20 mg tablet RxNorm: 864487 Take 1 Tablet(s) Oral QD 11/21/2022 Active Xarelto 20 mg tablet RxNorm: 1634976 Take 1 Tablet(s) Oral QD 05/22 No Stop Date Active amiodarone 200 mg tablet RxNorm: 063699 Take 1 Tablet(s) Oral QD 06/25/2022 Inactive Euthyrox 88 mcg tablet RxNorm: 678161 TAKE 1 TABLET BY MOUTH ONCE DAILY - DUE FOR UPDATED LAB 05/21/2022 08/18/2022 Active Breztri Aerosphere 160 mcg-9mcg-4.8mcg/actuation HFA a erosol inhaler RxNorm: 8517622 2 Puff(s) Inhalation two times a day in the morning an d evening 05/01/2022 05/01/2022 Inactive Breztri Aerosphere 160 mcg-9mcg-4.8mcg/actuation HFA a erosol inhaler RxNorm: 4511878 2 Puff(s) Inhalation two times a day in the morning an d evening 05/01/2022 05/30/2022 Inactive diltiazem CD 120 mg capsule,extended release 24 hr RxNorm: 8 29812 TAKE 1 CAPSULE BY MOUTH TWICE DAILY REPLACES 180MG DOSE 04/17/2022 10/13/2022 Active pantoprazole 40 mg tablet,delayed release RxNorm: 509754 Take 1 Tablet(s) Oral QD 04/17/2022 10/13/2022 Active Xarelto 10 mg tablet RxNorm: 9180732 Take 1 Tablet(s) Oral QD 03/2105/21/2022 Inactive simvastatin 20 mg tablet RxNorm: 916924 Take 1 Tablet(s) Oral QD 02/23/2022 Inactive levothyroxine 88 mcg tablet RxNorm: 802334 Take 1 table t by mouth once daily due for updated lab 02/22/2022 02/22/2022 Inactive Cartia XT 120 mg capsule,extended release RxNorm: 257774 TAKE 1 CAPSULE BY MOUTH TWICE DAILY REPLACES 180MG DOSE 01/16/2022 01/16/2022 Inactive pantoprazole 40 mg tablet,delayed release RxNorm: 415409 Take 1 Oral QD 12/15/2021 12/15/2021 Inactive scopolamine 1 mg over 3 days transdermal patch RxNorm: 63932 2 Take 1 Application Transdermal Q3D as needed 11/23/2021 06/25/2022 Inactive Effexor XR 37.5 mg capsule,extended release RxNorm: 955838 1 Capsule(s) Oral QAM 11/23/2021 11/23/2021 Inactive levothyroxine 88 mcg tablet RxNorm: 436815 Take 1 tablet by alvaro th once daily 11/21/2021 11/21/2021 Inactive diltiazem CD 120 mg capsule,extended release 24 hr RxNorm: 8 96735 TAKE 1 CAPSULE BY MOUTH TWICE DAILY REPLACES 180MG DOSE 10/17/2021 10/17/2021 Inactiv e pantoprazole 40 mg tablet,delayed release RxNorm: 867245 Take 1 Tablet(s) Oral QD 10/17/2021 10/17/2021 Inactive Effexor XR 37.5 mg capsule,extended release RxNorm: 771150 1 Capsule(s) Oral QAM 10/12/2021 11/22/2021 Inactive Xarelto 10 mg tablet RxNorm: 1226112 Take 1 Tablet(s) Oral QD 09/1409/14/2021 Inactive metoprolol succinate ER 50 mg tablet,extended release 24 hr RxNorm: 394313 Take 1/2 (one-half) tablet by mouth twice daily 09/14/2021 03/12/2022 Inact beto simvastatin 20 mg tablet RxNorm: 105349 Take 1 Tablet(s) Oral QD 08/30/2021 Inactive levothyroxine 88 mcg tablet RxNorm: 015942 Take 1 tablet by [facility] once daily 08/28/2021 08/28/2021 Inactive fluticasone propionate 50 mcg/actuation nasal spray,suspensi on RxNorm: 2961996 Take 1 [place] Nasal QD in each nostrilas needed 08/09/2021 09/07/2021 I nactive pantoprazole 40 mg tablet,delayed release RxNorm: 014928 Take 1 Tablet(s) Oral QD 07/19/2021 07/19/2021 Inactive Xarelto 10 mg tablet RxNorm: 9959070 Take 1 Tablet(s) Oral QD 06/2906/29/2021 Inactive Euthyrox 88 mcg tablet RxNorm: 462081 Take 1 tablet by mouth on ce daily 05/24/2021 05/24/2021 Inactive Effexor XR 37.5 mg capsule,extended release RxNorm: 382840 1 Capsule(s) Oral QAM 05/12/2021 07/27/2021 Inactive Xarelto 10 mg tablet RxNorm: 9843387 Take 1 tablet by mo [facility] once daily Take 1 Tablet(s) Oral QD 04/19/2021 04/19/2021 Inactive metoprolol succinate ER 50 mg tablet,extended release 24 hr RxNorm: 507807 1/2 Tablet(s) Oral two times a day 04/12/2021 04/12/2021 Inactive d ecrease in dose of 1/2 tablet twice daily metoprolol succinate ER 50 mg tablet,extended release 24 hr RxNorm: 292570 Take 1/2 (one-half) tablet by mouth twice daily 04/12/2021 10/11/2021 Inact beto simvastatin 20 mg tablet RxNorm: 052275 Take 1 Tablet(s) Oral QD 03/07/2021 Inactive prednisone 10 mg tablet RxNorm: 014628 Take 1 Tablet(s) Oral tw o times a day 03/01/2021 03/01/2021 Inactive triamcinolone acetonide 0.1 % topical cream RxNorm: 2615651 Apply 1 Application Topical two times a day 03/01/2021 03/01/2021 Inactive prednisone 10 mg tablet RxNorm: 930899 Take 1 Tablet(s) Oral tw o times a day 03/01/2021 03/03/2021 Inactive triamcinolone acetonide 0.1 % topical cream RxNorm: 8723207 Apply 1 Application Topical two times a day 03/01/2021 03/01/2021 Inactive Euthyrox 88 mcg tablet RxNorm: 709099 Take 1 tablet by mouth on ce daily 02/22/2021 02/22/2021 Inactive Effexor XR 37.5 mg capsule,extended release RxNorm: 759236 1 Capsule(s) Oral QAM 02/03/2021 02/02/2021 Inactive Effexor XR 37.5 mg capsule,extended release RxNorm: 907343 1 Capsule(s) Oral QAM 02/03/2021 04/03/2021 Inactive simvastatin 20 mg tablet RxNorm: 205422 Take 1 tablet by mouth once daily 1 01/25/2021 01/25/2021 Inactive Cardizem CD 120 mg capsule,extended release RxNorm: 284103 1 Capsule(s) Oral two times a day replaces 180mg dose 01/19/2021 01/19/2021 Inactive Protonix 40 mg tablet,delayed release RxNorm: 219586 1 Tablet(s ) Oral QD 01/17/2021 01/17/2021 Inactive Effexor XR 37.5 mg capsule,extended release RxNorm: 438016 1 Capsule(s) Oral QAM 01/04/2021 02/02/2021 Inactive scopolamine 1 mg over 3 days transdermal patch RxNorm: 25658 2 1 Application Transdermal behind ear for vertigo 01/04/2021 01/03/2021 Inactive scopolamine 1 mg over 3 days transdermal patch RxNorm: 27342 2 1 Application Transdermal behind ear for vertigo 01/04/2021 01/04/2021 Inactive metoprolol succinate ER 50 mg tablet,extended release 24 hr RxNorm: 129981 1/2 Tablet(s) Oral two times a day 12/29/2020 12/28/2020 Inactive metoprolol succinate ER 50 mg tablet,extended release 24 hr RxNorm: 246262 1/2 Tablet(s) Oral two times a day 12/29/2020 12/29/2020 Inactive d ecrease in dose of 1/2 tablet twice daily Xarelto 10 mg tablet RxNorm: 7697135 Take 1 tablet by mouth once daily 12/29/2020 03/29/2021 Inactive Xarelto 10 mg tablet RxNorm: 9712366 Take 1 tablet by mouth once daily 11/26/2020 12/28/2020 Inactive simvastatin 20 mg tablet RxNorm: 092566 Take 1 tablet by mouth once daily 11/26/2020 01/24/2021 Inactive Synthroid 88 mcg tablet RxNorm: 319144 Take 1 tablet by mouth o nce daily 10/21/2020 10/21/2020 Inactive simvastatin 20 mg tablet RxNorm: 564807 Take 1 tablet by mouth once daily 09/30/2020 11/25/2020 Inactive Xarelto 10 mg tablet RxNorm: 9327279 Take 1 tablet by mouth once daily 08/26/2020 11/23/2020 Inactive metoprolol succinate ER 50 mg tablet,extended release 24 hr RxNorm: 341068 1 Tablet(s) Oral two times a day 08/05/2020 11/03/2020 Inactive simvastatin 20 mg tablet RxNorm: 333681 Take 1 tablet by mouth once daily 07/30/2020 09/27/2020 Inactive Synthroid 88 mcg tablet RxNorm: 305344 Take 1 tablet by mouth o nce daily 07/27/2020 10/20/2020 Inactive Protonix 40 mg tablet,delayed release RxNorm: 261258 1 Tablet(s ) Oral QD 07/26/2020 10/24/2020 Inactive Xarelto 10 mg tablet RxNorm: 5429407 1 Tablet(s) Oral QD 06/03/2020 1 10/26/2019 Inactive Cardizem CD 120 mg capsule,extended release RxNorm: 315290 1 Capsule(s) Oral two times a day replaces 180mg dose 05/11/2020 11/07/2020 Inactive Pradaxa 75 mg capsule RxNorm: 4741940 1 Capsule(s) Oral two time s a day 05/11/2020 05/11/2020 Inactive meclizine 25 mg tablet RxNorm: 380099 1 Tablet(s) Oral every ni ght at bedtime 05/05/2020 10/11/2021 Inactive simvastatin 20 mg tablet RxNorm: 931707 Take 1 tablet by mouth once daily 05/04/2020 05/10/2020 Inactive simvastatin 20 mg tablet RxNorm: 861344 TAKE 1 TABLET BY MOUTH ONCE DAILY 04/29/2020 09/19/2020 Inactive Synthroid 88 mcg tablet RxNorm: 278202 TAKE 1 TABLET BY MOUTH O NCE DAILY 04/20/2020 07/18/2020 Inactive diltiazem CD 180 mg capsule,extended release 24 hr RxNorm: 8 88733 TAKE 1 CAPSULE BY MOUTH TWICE DAILY 04/05/2020 05/10/2020 Inactive simvastatin 20 mg tablet RxNorm: 775441 TAKE 1 TABLET BY MOUTH ONCE DAILY 02/24/2020 04/23/2020 Inactive aspirin 325 mg tablet RxNorm: 046601 1 Tablet(s) Oral QD 02/11/2020 0 05/10/2020 Inactive hydroxyzine HCl 10 mg tablet RxNorm: 157867 1 Tablet(s) Oral th ree times a day 01/28/2020 05/10/2020 Inactive diltiazem CD 180 mg capsule,extended release 24 hr RxNorm: 8 90372 TAKE 1 CAPSULE BY MOUTH TWICE DAILY 01/19/2020 04/04/2020 Inactive spironolactone 25 mg tablet RxNorm: 063914 1 Tablet(s) Oral QOD replaces Triam/HCTZ 01/15/2020 01/14/2020 Inactive spironolactone 25 mg tablet RxNorm: 782487 1 Tablet(s) Oral QOD replaces Triam/HCTZ 01/15/2020 01/26/2020 Inactive prednisone 20 mg tablet RxNorm: 483249 1 Tablet(s) Oral QD 01/12/20 20 01/14/2020 Inactive prednisone 20 mg tablet RxNorm: 301589 1 Tablet(s) Oral QD 01/12/20 20 01/11/2020 Inactive Benadryl 25 mg capsule RxNorm: 4134464 1 Capsule(s) Oral every n ight at bedtime 01/08/2020 05/10/2020 Inactive Pepcid 20 mg tablet RxNorm: 344066 1 Tablet(s) Oral two times a day 01/08/2020 07/25/2020 Inactive [place] Original 0.5 %-0.5 % lotion RxNorm: 980727 Topical 0 10/11/2021 Inactive Zyrtec 10 mg tablet RxNorm: 2817509 1 Tablet(s) Oral QAM 01/08/2020 0 05/10/2020 Inactive metoprolol succinate ER 50 mg tablet,extended release 24 hr RxNorm: 573405 1 Tablet(s) Oral two times a day 01/05/2020 04/04/2020 Inactive Protonix 40 mg tablet,delayed release RxNorm: 916539 TA KE 1 TABLET BY MOUTH ONCE DAILY 12/29/2019 05/10/2020 Inactive triamterene 37.5 mg-hydrochlorothiazide 25 mg tablet RxNorm: 929474 TAKE 1/2 (ONE-HALF) TABLET BY MOUTH EVERY OTHER DAY 12/24/2019 01/14/2020 Inact beto triamterene 37.5 mg-hydrochlorothiazide 25 mg tablet RxNorm: 553755 1/2 Tablet(s) Oral QD 12/12/2019 01/26/2020 Inactive diltiazem CD 180 mg capsule,extended release 24 hr RxNorm: 8 31119 TAKE 1 CAPSULE BY MOUTH TWICE DAILY 12/03/2019 01/18/2020 Inactive Eliquis 2.5 mg tablet RxNorm: 8279145 1 Tablet(s) Oral two times a day 11/25/2019 02/10/2020 Inactive simvastatin 20 mg tablet RxNorm: 488931 TAKE 1 TABLET BY MOUTH ONCE DAILY 11/25/2019 02/22/2020 Inactive triamterene 37.5 mg-hydrochlorothiazide 25 mg tablet RxNorm: 008051 1/2 Tablet(s) Oral QOD 11/06/2019 12/11/2019 Inactive triamterene 37.5 mg-hydrochlorothiazide 25 mg tablet RxNorm: 483191 1/2 Tablet(s) Oral QD 10/22/2019 10/28/2019 Inactive meclizine 25 mg tablet RxNorm: 719050 1 Tablet(s) Oral every ni ght at bedtime 10/20/2019 11/19/2019 Inactive Synthroid 88 mcg tablet RxNorm: 771792 TAKE 1 TABLET BY MOUTH O NCE DAILY 10/20/2019 10/21/2019 Inactive scopolamine 1 mg over 3 days transdermal patch RxNorm: 57706 2 1 Unit Dose Transdermal Q72H for vertigo 10/14/2019 01/04/2020 Inactive scopolamine 1 mg over 3 days transdermal patch RxNorm: 23235 2 1 Unit Dose Transdermal Q72H for vertigo 10/14/2019 10/14/2019 Inactive Celebrex 200 mg capsule RxNorm: 049757 TAKE 1 CAPSULE BY MOUTH ONCE DAILY 10/12/2019 10/28/2019 Inactive triamterene 37.5 mg-hydrochlorothiazide 25 mg tablet RxNorm: 782168 1 Tablet(s) Oral QAM 10/06/2019 10/21/2019 Inactive diltiazem CD 180 mg capsule,extended release 24 hr RxNorm: 8 62198 1 Capsule(s) Oral two times a day 10/01/2019 11/29/2019 Inactive simvastatin 20 mg tablet RxNorm: 485911 TAKE 1 TABLET BY MOUTH ONCE DAILY 10/01/2019 10/01/2019 Inactive Patient will need to have fasting labs done before next refill Protonix 40 mg tablet,delayed release RxNorm: 251292 TA KE 1 TABLET BY MOUTH ONCE DAILY 09/28/2019 12/26/2019 Inactive diltiazem CD 180 mg capsule,extended release 24 hr RxNorm: 8 61436 1 Capsule(s) Oral two times a day 08/11/2019 08/10/2019 Inactive diltiazem CD 180 mg capsule,extended release 24 hr RxNorm: 8 60706 1 Capsule(s) Oral two times a day 08/11/2019 09/30/2019 Inactive diltiazem CD 120 mg capsule,extended release 24 hr RxNorm: 8 99240 1 Capsule(s) Oral two times a day 07/23/2019 08/10/2019 Inactive Celebrex 200 mg capsule RxNorm: 542884 1 Capsule(s) Oral QD 07/08/2019 Inactive Celebrex 200 mg capsule RxNorm: 770477 1 Capsule(s) Oral QD 10/07/2019 Inactive diltiazem CD 120 mg capsule,extended release 24 hr RxNorm: 8 16146 1 Capsule(s) Oral QAM 07/07/2019 07/22/2019 Inactive Eliquis 2.5 mg tablet RxNorm: 8171662 1 Tablet(s) Oral two times a day 07/07/2019 11/04/2019 Inactive metoprolol succinate ER 50 mg tablet,extended release 24 hr RxNorm: 903508 1 Tablet(s) Oral QAM and 2 tablets in the evening 06/30/2019 08/05/2020 Inactive hydrochlorothiazide 25 mg tablet RxNorm: 880067 1 Tablet(s) PO QD 1 07/06/2019 Inactive hydrochlorothiazide 25 mg tablet RxNorm: 956726 1 Tablet(s) PO QD 0 05/08/2019 05/07/2019 Inactive patient needs to follow up i n 2 months and continue BP readings at home hydrochlorothiazide 25 mg tablet RxNorm: 006953 1 Tablet(s) PO QD 0 05/08/2019 06/25/2019 Inactive patient needs to follow up i n 2 months and continue BP readings at home metoprolol succinate ER 50 mg tablet,extended release 24 hr RxNorm: 967542 1 Tablet(s) PO QAM and 2 tablets in the evening 05/08/2019 06/29/2019 In active hydrochlorothiazide 12.5 mg tablet RxNorm: 853311 1 Tablet(s) PO QA M 04/15/2019 05/07/2019 Inactive Synthroid 88 mcg tablet RxNorm: 522918 TAKE 1 TABLET BY MOUTH O NCE DAILY 04/14/2019 10/19/2019 Inactive Protonix 40 mg tablet,delayed release RxNorm: 747286 TA KE 1 TABLET BY MOUTH ONCE DAILY 03/24/2019 09/27/2019 Inactive simvastatin 20 mg tablet RxNorm: 362034 TAKE 1 TABLET BY MOUTH ONCE DAILY 03/24/2019 09/30/2019 Inactive losartan 100 mg tablet RxNorm: 748558 1/2 Tablet(s) PO QD 2019 04/14/2019 Inactive Cozaar 50 mg tablet RxNorm: 212785 1 Tablet(s) PO QHS 01/28/201903/25 Inactive Celebrex 200 mg capsule RxNorm: 470426 TAKE 1 CAPSULE BY MOUTH ONCE DAILY 01/10/2019 07/08/2019 Inactive Protonix 40 mg tablet,delayed release RxNorm: 407519 TA KE 1 TABLET BY MOUTH ONCE DAILY 12/23/2018 03/23/2019 Inactive metoprolol succinate ER 50 mg tablet,extended release 24 hr RxNorm: 229303 1.5 Tablet(s) PO BID 12/03/2018 04/14/2019 Inactive Synthroid 88 mcg tablet RxNorm: 170139 1 Tablet(s) PO QD 10/24/2018 0 04/13/2019 Inactive simvastatin 20 mg tablet RxNorm: 200289 1 Tablet(s) PO QD 09/27/2018 12/25/2018 Inactive simvastatin 20 mg tablet RxNorm: 148514 1 Tablet(s) PO QD 09/26/2018 09/26/2018 Inactive Cozaar 50 mg tablet RxNorm: 196103 1 Tablet(s) PO QHS 09/09/201802/2019 Inactive Cozaar 50 mg tablet RxNorm: 305170 1 Tablet(s) PO QHS 09/09/201808/24 Inactive metoprolol succinate ER 50 mg tablet,extended release 24 hr RxNorm: 609359 1.5 Tablet(s) PO BID 09/02/2018 11/30/2018 Inactive Cozaar 50 mg tablet RxNorm: 708899 1 Tablet(s) PO QHS 05/24/201808/24 Inactive Cozaar 25 mg tablet RxNorm: 565208 1 Tablet(s) PO QAM 05/10/201804/25 Inactive clonidine HCl 0.1 mg tablet RxNorm: 539995 1 Tablet(s) PO TID as needed for BP greater than 160/95 05/10/2018 05/20/2018 Inactive betamethasone dipropionate 0.05 % topical cream RxNorm: 2389 20 1 Application TOP BID 05/06/2018 11/25/2018 Inactive prednisone 20 mg tablet RxNorm: 370049 1 Tablet(s) PO QD 05/06/2018 0 05/05/2018 Inactive prednisone 20 mg tablet RxNorm: 058492 1 Tablet(s) PO QD 05/06/2018 0 05/10/2018 Inactive metoprolol succinate ER 50 mg tablet,extended release 24 hr RxNorm: 875252 1.5 Tablet(s) PO BID 05/06/2018 09/01/2018 Inactive Flonase Allergy Relief 50 mcg/actuation nasal spray,suspensi on RxNorm: 2418791 2 [place] NASAL QHS 05/03/2018 11/25/2018 Inactive Celebrex 200 mg capsule RxNorm: 103417 TAKE ONE CAPSULE BY MOUT H ONCE DAILY 04/30/2018 05/02/2018 Inactive Celebrex 200 mg capsule RxNorm: 225483 1 Capsule(s) PO QD TAKE ONE CAPSULE BY MOUTH ONCE DAILY 04/30/2018 05/02/2018 Inactive Synthroid 88 mcg tablet RxNorm: 287555 1 Tablet(s) PO QD 03/12/2018 1 11/08/2017 Inactive acyclovir 5 % topical ointment RxNorm: 417963 1 Unit Dose TOP Q 6H as needed 03/05/2018 11/25/2018 Inactive Protonix 40 mg tablet,delayed release RxNorm: 948171 1 Tablet(s ) PO QD 12/17/2017 12/22/2018 Inactive simvastatin 20 mg tablet RxNorm: 556909 TAKE ONE TABLET BY MOUT H ONCE DAILY 12/17/2017 09/27/2018 Inactive Celebrex 200 mg capsule RxNorm: 795753 TAKE ONE CAPSULE BY MOUT H ONCE DAILY 10/30/2017 04/29/2018 Inactive Synthroid 88 mcg tablet RxNorm: 335239 1 Tablet(s) PO QD 09/19/2017 0 03/12/2018 Inactive Synthroid 88 mcg tablet RxNorm: 518566 1 Tablet(s) PO QD Needs updated labs 09/19/2017 10/24/2018 Inactive Synthroid 88 mcg tablet RxNorm: 518158 1 Tablet(s) PO QD 06/20/2017 1 11/18/2016 Inactive simvastatin 20 mg tablet RxNorm: 005078 1 Tablet(s) PO QD 06/15/2017 09/12/2017 Inactive simvastatin 20 mg tablet RxNorm: 381193 1 Tablet(s) PO QD 06/15/2017 06/14/2017 Inactive metoprolol succinate ER 25 mg tablet,extended release 24 hr RxNorm: 497428 1 Tablet(s) PO QD 06/14/2017 07/23/2017 Inactive Valtrex 1 gram tablet RxNorm: 564196 1 Tablet(s) PO TID 06/01/2017 Inactive Celebrex 200 mg capsule RxNorm: 581463 1 Capsule(s) PO QD 05/01/2017 10/27/2017 Inactive Toprol XL 25 mg tablet,extended release RxNorm: 333329 1/2 Tabl et(s) PO QD 04/12/2017 06/13/2017 Inactive simvastatin 20 mg tablet RxNorm: 356211 1 Tablet(s) PO QD 03/19/2017 06/14/2017 Inactive Synthroid 88 mcg tablet RxNorm: 944316 1 Tablet(s) PO QD 03/14/2017 0 06/20/2017 Inactive aspirin 81 mg chewable tablet RxNorm: 197068 1 Tablet(s) PO QD /02/201704/21/2018 Inactive simvastatin 20 mg tablet RxNorm: 095682 TAKE ONE TABLET BY MOUT H ONCE DAILY 12/19/2016 03/19/2017 Inactive gabapentin 300 mg capsule RxNorm: 790239 1 Capsule(s) PO QHS 201603/29/2017 Inactive Protonix 40 mg tablet,delayed release RxNorm: 710752 TA KE ONE TABLET BY MOUTH ONCE DAILY 12/14/2016 12/08/2017 Inactive Flonase Allergy Relief 50 mcg/actuation nasal spray,suspensi on RxNorm: 6533182 2 [place] NASAL QHS 11/02/2016 12/17/2016 Inactive clotrimazole-betamethasone 1 %-0.05 % topical cream RxNorm: 181649 1 Application TOP BID 11/02/2016 11/01/2016 Inactive clotrimazole-betamethasone 1 %-0.05 % topical cream RxNorm: 957857 1 Application TOP BID 11/02/2016 12/17/2016 Inactive Maggi Perles 100 mg capsule RxNorm: 058044 1 Capsule(s) PO TID 0 11/02/2016 12/17/2016 Inactive amoxicillin 500 mg tablet RxNorm: 735314 1 Tablet(s) PO TID 017 11/01/2016 Inactive Toprol XL 25 mg tablet,extended release RxNorm: 580978 TAKE ONE-HALF TABLET BY MOUTH ONCE DAILY 10/19/2016 04/12/2017 Inactive Toprol XL 25 mg tablet,extended release RxNorm: 671047 1/2 Tablet(s) PO QD Due for routine fasting labs and appointment 10/19/2016 01/16/2017 Inactiv e gabapentin 600 mg tablet RxNorm: 250777 1 Tablet(s) PO QHS 07/24/20 16 12/17/2016 Inactive gabapentin 600 mg tablet RxNorm: 612762 TAKE ONE TABLET BY MOUT H AT BEDTIME 07/24/2016 07/23/2016 Inactive simvastatin 20 mg tablet RxNorm: 615983 TAKE ONE TABLET BY MOUT H ONCE DAILY 06/15/2016 12/11/2016 Inactive Celebrex 200 mg capsule RxNorm: 144143 1 Capsule(s) PO QD 05/10/2016 05/01/2017 Inactive Celebrex 200 mg capsule RxNorm: 279015 1 Capsule(s) PO QD 05/09/2016 05/09/2016 Inactive Synthroid 88 mcg tablet RxNorm: 433359 Tablet(s) 1 Tablet(s) PO QD 03/21/2016 09/16/2016 Inactive Synthroid 88 mcg tablet RxNorm: 599749 1 Tablet(s) PO QD 03/20/2016 0 03/20/2016 Inactive simvastatin 20 mg tablet RxNorm: 805353 TAKE ONE TABLET BY MOUT H ONCE DAILY 03/06/2016 06/03/2016 Inactive meclizine 25 mg tablet RxNorm: 421144 1 Tablet(s) PO TID as nee ded dizziness 02/07/2016 12/17/2016 Inactive Zofran ODT 4 mg disintegrating tablet RxNorm: 213774 1 Tablet(s) PO Q6H as needed for nausea 02/07/2016 12/17/2016 Inactive gabapentin 600 mg tablet RxNorm: 898299 TAKE ONE TABLET BY MOUT H AT BEDTIME 01/20/2016 07/17/2016 Inactive Synthroid 88 mcg tablet RxNorm: 502016 1 Tablet(s) PO QD 12/27/2015 0 03/19/2016 Inactive simvastatin 20 mg tablet RxNorm: 447413 1 Tablet(s) PO QD 12/06/2015 03/04/2016 Inactive Protonix 40 mg tablet,delayed release RxNorm: 518022 1 Tablet(s ) PO QD 12/06/2015 12/13/2016 Inactive Celebrex 200 mg capsule RxNorm: 958489 1 Capsule(s) PO QD 11/03/2015 05/10/2016 Inactive Celebrex 200 mg capsule RxNorm: 405910 1 Capsule(s) PO QD 11/03/2015 11/02/2015 Inactive simvastatin 20 mg tablet RxNorm: 559675 1 Tablet(s) PO QD 09/06/2015 12/04/2015 Inactive Gralise 600 mg tablet,extended release RxNorm: 8671356 1 Tablet( s) PO QD 08/23/2015 10/18/2015 Inactive Synthroid 88 mcg tablet RxNorm: 867256 1 Tablet(s) PO QD 06/30/2015 0 09/27/2015 Inactive simvastatin 20 mg tablet RxNorm: 211611 1 Tablet(s) PO QD 06/07/2015 09/04/2015 Inactive Synthroid 88 mcg tablet RxNorm: 902281 1 Tablet(s) PO QD 06/07/2015 1 Inactive Celebrex 200 mg capsule RxNorm: 498155 1 Capsule(s) PO QD 06/07/2015 11/02/2015 Inactive Protonix 40 mg tablet,delayed release RxNorm: 713915 1 Tablet(s ) PO QD 06/07/2015 12/03/2015 Inactive Toprol XL 25 mg tablet,extended release RxNorm: 379332 1/2 Tabl et(s) PO QD 04/13/2015 10/09/2015 Inactive [SAVINGS FOR UNINSUR ED PATIENTS -- BIN:[id number], PCN: ASPROD1, Group: [id number], ID# [id number], Process claim through [employer], for questions: . THIS IS NOT INSURANCE.] Synthroid 88 mcg tablet RxNorm: 167322 1 Tablet(s) PO Q D TAKE ONE TABLET BY MOUTH ONCE DAILY 03/29/2015 06/30/2015 Inactive Celebrex 200 mg capsule RxNorm: 799912 1 Capsule(s) PO QD 03/22/2015 06/06/2015 Inactive Celebrex 200 mg capsule RxNorm: 378359 1 Capsule(s) PO QD 02/22/2015 03/21/2015 Inactive Celebrex 200 mg capsule RxNorm: 840808 1 Capsule(s) PO QD 01/21/2015 02/21/2015 Inactive Synthroid 88 mcg tablet RxNorm: 569544 1 Tablet(s) PO Q D TAKE ONE TABLET BY MOUTH ONCE DAILY 12/21/2014 03/29/2015 Inactive meloxicam 15 mg tablet RxNorm: 167068 1 Tablet(s) PO QD 12/09/2014 Inactive [SAVINGS FOR NON-COVERED DRUGS -- BIN:00 [id number], PCN: ASPROD1, Group: XXXXX, ID# [id number], Questions: . THIS IS NOT INSURANCE.] Protonix 40 mg tablet,delayed release RxNorm: 264725 1 Tablet(s ) PO QD 12/08/2014 06/05/2015 Inactive Protonix 40 mg tablet,delayed release RxNorm: 385403 1 Tablet(s ) PO QD 12/07/2014 12/07/2014 Inactive simvastatin 20 mg tablet RxNorm: 583555 TAKE ONE TABLET BY MOUT H ONCE DAILY 11/30/2014 05/28/2015 Inactive clotrimazole-betamethasone 1 %-0.05 % topical cream RxNorm: 3087 14 TOP BID 11/30/2014 11/01/2016 Inactive acetic acid 2 % ear solution RxNorm: 676757 5 Drop(s) OTIC Left ear QID 11/30/2014 12/06/2014 Inactive meloxicam 15 mg tablet RxNorm: 780409 1 Tablet(s) PO QD 10/30/2014 Inactive [SAVINGS FOR NON-COVERED DRUGS -- BIN:[id number], PCN: [id number], Group: XXXXX, ID# [id number], Questions: . THIS IS NOT INSURANCE.] meloxicam 15 mg tablet RxNorm: 645758 1 Tablet(s) PO QD 10/30/2014 Inactive Toprol XL 25 mg tablet,extended release RxNorm: 520908 1/2 Tabl et(s) PO QD 10/12/2014 04/09/2015 Inactive [SAVINGS FOR UNINSUR ED PATIENTS -- BIN:[id number], PCN: [id number], Group: [id number], ID# [id number], Process claim through [employer], for questions: . THIS IS NOT INSURANCE.] Synthroid 88 mcg tablet RxNorm: 491168 1 Tablet(s) PO Q D TAKE ONE TABLET BY MOUTH ONCE DAILY 09/21/2014 12/19/2014 Inactive Protonix 40 mg tablet,delayed release RxNorm: 127516 1 Tablet(s ) PO QD 07/23/2014 11/19/2014 Inactive Synthroid 88 mcg tablet RxNorm: 157009 TAKE ONE TABLET BY MOUTH ONCE DAILY 06/23/2014 09/21/2014 Inactive omeprazole 40 mg capsule,delayed release RxNorm: 857142 1 Capsu le(s) PO QD 06/16/2014 07/22/2014 Inactive [SAVINGS FOR UNINSUR ED PATIENTS -- [id number], PCN: [email or web address], Group: [id number], ID# [id number], Process claim through [employer], for questions: . THIS IS NOT INSURANCE.] Toprol XL 25 mg tablet,extended release RxNorm: 542511 1/2 Tabl et(s) PO QD 04/13/2014 10/12/2014 Inactive Celebrex 200 mg capsule RxNorm: 383525 1 Capsule(s) PO QD for pain 03/16/2014 10/29/2014 Inactive Medrol ([place]) 4 mg tablets in a dose pack RxNorm: 818302 Tablet(s) PO as directed 03/09/2014 07/22/2014 Inactive Synthroid 88 mcg tablet RxNorm: 766995 1 Tablet(s) PO QD 02/17/2014 0 06/23/2014 Inactive Celebrex 200 mg capsule RxNorm: 559428 1 Capsule(s) PO QD for pain 02/17/2014 03/15/2014 Inactive omeprazole 40 mg capsule,delayed release RxNorm: 920160 1 Capsu le(s) PO QD 02/05/2014 06/16/2014 Inactive Protonix 40 mg tablet,delayed release RxNorm: 164806 1 Tablet(s ) PO QD 01/23/2014 05/10/2020 Inactive Toprol XL 25 mg tablet,extended release RxNorm: 942699 1/2 Tablet(s) PO QD TAKE ONE-HALF TABLET BY MOUTH EVERY DAY 01/12/2014 04/13/2014 Inactive Synthroid 88 mcg tablet RxNorm: 546240 Tablet(s) PO MANDY E ONE TABLET BY MOUTH EVERY DAY 11/17/2013 02/17/2014 Inactive Celebrex 200 mg capsule RxNorm: 975179 1 Capsule(s) PO QD for pain 10/20/2013 02/17/2014 Inactive Toprol XL 25 mg tablet,extended release RxNorm: 998861 1/2 Tabl et(s) PO QD 07/17/2013 01/12/2014 Inactive Nexium 40 mg capsule,delayed release RxNorm: 959145 1 C apsule(s) PO QD Generic ok 07/14/2013 09/21/2013 Inactive Celebrex 200 mg capsule RxNorm: 990163 1 Capsule(s) PO QD for pain 06/19/2013 10/20/2013 Inactive Synthroid 88 mcg tablet RxNorm: 284684 1 Tablet(s) PO QD 05/13/2013 0 11/17/2013 Inactive TAKE ONE TABLET BY MOUTH EVERY DAY Nexium 40 mg capsule,delayed release RxNorm: 421383 Cap maureen(s) PO TAKE ONE CAPSULE BY MOUTH EVERY DAY 05/05/2013 07/13/2013 Inactive Celebrex 200 mg capsule RxNorm: 332945 1 Capsule(s) PO QD for pain 04/07/2013 06/19/2013 Inactive Esgic-Plus 50 mg-500 mg-40 mg capsule RxNorm: 281062 1 Capsule(s) PO Q4-6H prn headache 04/07/2013 04/07/2013 Inactive Toprol XL 25 mg tablet,extended release RxNorm: 751622 1/2 Tabl et(s) PO QD 12/16/2012 06/13/2013 Inactive Nexium 40 mg capsule,delayed release RxNorm: 299716 1 Capsule(s ) PO QD 11/20/2012 03/19/2013 Inactive Synthroid 88 mcg tablet RxNorm: 941406 1 Tablet(s) PO QD 10/28/2012 0 04/25/2013 Inactive TAKE ONE TABLET BY MOUTH EVERY DAY Toprol XL 25 mg tablet,extended release RxNorm: 836433 1/2 Tabl et(s) PO QD 09/25/2012 12/16/2012 Inactive Synthroid 88 mcg tablet RxNorm: 797408 1 Tablet(s) PO QD 04/22/2012 0 10/28/2012 Inactive TAKE ONE TABLET BY MOUTH EVERY DAY Nexium 40 mg capsule,delayed release RxNorm: 607912 1 Capsule(s ) PO QD 04/16/2012 11/20/2012 Inactive Esgic-Plus 50 mg-500 mg-40 mg capsule RxNorm: 106362 1 Capsule(s) PO Q4-6H prn headache 03/28/2012 04/06/2013 Inactive Toprol XL 25 mg tablet,extended release RxNorm: 696969 1/2 Tabl et(s) PO QD 03/07/2012 09/25/2012 Inactive Toprol XL 25 mg 24 hr Tab RxNorm: 965943 1/2 Tablet(s) PO QD 201101/03/2012 Inactive Three times a week Synthroid 88 mcg Tab RxNorm: 430506 1 Tablet(s) PO QD 10/10/201112/23 Inactive TAKE ONE TABLET BY MOUTH EVERY DAY prednisone 20 mg Tab RxNorm: 905677 1 Tablet(s) PO BID 09/13/2011 Inactive doxycycline 100 mg Cap RxNorm: 7909481 1 Capsule(s) PO BID 09/13/2009/22/2011 Inactive cefdinir 300 mg Cap RxNorm: 410461 1 Capsule(s) PO BID 08/07/2011 Inactive Synthroid 88 mcg Tab RxNorm: 524594 1 Tablet(s) PO QD 07/19/201109/24 Inactive TAKE ONE TABLET BY MOUTH EVERY DAY Synthroid 88 mcg Tab RxNorm: 777721 1 Tablet(s) PO QD 07/19/201103/26 Inactive TAKE ONE TABLET BY MOUTH EVERY DAY Synthroid 88 mcg Tab RxNorm: 606167 1 Tablet(s) PO QD 07/18/201106/25 Inactive TAKE ONE TABLET BY MOUTH EVERY DAY Synthroid 88 mcg Tab RxNorm: 006202 1 Tablet(s) PO QD 05/15/201106/25 Inactive TAKE ONE TABLET BY MOUTH EVERY DAY Synthroid 88 mcg Tab RxNorm: 167465 1 Tablet(s) PO QD 03/15/201104/25 Inactive Synthroid 75 mcg Tab RxNorm: 580412 1 Tablet(s) PO QD 01/04/201102/22 Inactive Synthroid 50 mcg Tab RxNorm: 909768 1 Tablet(s) PO QD G eneric okay. Please explain to patient that she may see more variation in her thyroid labs and increased symptoms. 07/07/2010 03/14/2011 Inactive Prednisone 20 mg Tab RxNorm: 112594 1 Tablet(s) PO BID 02/14/2010 Inactive Flexeril 10 mg Tab RxNorm: 969872 1 Tablet(s) PO TID 02/07/201002/13 Inactive Synthroid 25 mcg Tab RxNorm: 949877 1 Tablet(s) PO QD 12/29/200902/23 Inactive Synthroid 50 mcg Tab RxNorm: 521104 1 Tablet(s) PO QD 12/29/200911/2009 Inactive Vitamin D3 2,000 unit tablet RxNorm: 148257 1 Tablet(s) PO QAM 2014 Active coenzyme Q10 200 mg tablet RxNorm: 406675 1 Tablet(s) PO QD 09/01/2014 Active Trelegy Ellipta inhalation RxNorm: 2066559 inhalation 05/30/2022 Active Vitamin B12 1000mcg Tablet RxNorm: 1/2 Tablet(s) PO QD 04/03/2017 Active gabapentin 600 mg tablet RxNorm: 181151 1 Tablet(s) PO QPM 01/20/20 16 01/19/2016 Inactive Fish Oil 1,000 mg capsule RxNorm: 1 Capsule(s) PO QHS 10/18/2017 0 10/17/2017 Inactive Toprol XL 25 mg 24 hr Tab RxNorm: 430084 /2 Tablet(s) PO QD 201103/06/2012 Inactive turmeric root extract oral RxNorm: 0435908 oral 05/26/20152014 Inactive Esgic 50 mg-325 mg-40 mg tablet RxNorm: 626690 1 Tablet (s) PO Q4H as needed for pain 05/26/2015 05/25/2015 Inactive Synthroid 88 mcg Tab RxNorm: 534617 1 Tablet(s) PO QD 03/15/201102/23 Inactive Calcium with Vitamin D 600 mg-400 unit Tab RxNorm: 583688 1 Tab let(s) PO BID 03/31/2013 03/30/2013 Inactive Synthroid 50 mcg Tab RxNorm: 653078 1 Tablet(s) PO QD 03/16/201002/23 Inactive Celebrex 200 mg capsule RxNorm: 115127 1 Capsule(s) PO QD 01/21/2015 01/20/2015 Inactive betamethasone dipropionate 0.05 % topical cream RxNorm: 2389 20 1 Application TOP BID 05/06/2018 05/05/2018 Inactive Protonix 40 mg tablet,delayed release RxNorm: 495000 1 Tablet(s ) PO QD 01/23/2014 01/23/2014 Inactive Calcium + D 600 mg (1,500)-200 unit Tab RxNorm: 882539 1 Tablet (s) PO QD 01/04/2011 01/03/2011 Inactive simvastatin 20 mg tablet RxNorm: 723679 1 Tablet(s) PO QD 11/30/2014 11/29/2014 Inactive Fish Oil 1,000 mg capsule RxNorm: 2 Capsule(s) PO QD 05/26/2015 Inactive Gralise 600 mg tablet,extended release RxNorm: 1986295 1 Tablet( s) PO QD 08/23/2015 08/22/2015 Inactive Vitamin B12 1000mcg Tablet RxNorm: 1 Tablet(s) PO QD 04/03/2017 Inactive Esgic-Plus 50 mg-500 mg-40 mg Cap RxNorm: 210125 1 Caps ule(s) PO Q4-6H prn headache 03/28/2012 03/27/2012 Inactive Cozaar 50 mg tablet RxNorm: 809446 1 Tablet(s) PO QHS 05/24/201804/26 Inactive Toprol XL 25 mg 24 hr Tab RxNorm: 801859 2 Tablet(s) PO Three t imes a week 01/01/2012 12/31/2011 Inactive metoprolol succinate ER 25 mg tablet,extended release 24 hr RxNorm: 109926 1 Tablet(s) PO TID 10/18/2017 10/17/2017 Inactive metoprolol succinate ER 50 mg tablet,extended release 24 hr RxNorm: 445376 1.5 Tablet(s) PO QAM and tablet at bedtime 05/06/2018 05/05/2018 Inactive Esgic-Plus 50 mg-500 mg-40 mg Cap RxNorm: 363957 1 Capsule(s) P O Q4-6H 08/07/2011 08/06/2011 Inactive metoprolol succinate ER 50 mg tablet,extended release 24 hr RxNorm: 368803 1 Tablet(s) PO QD 04/22/2018 04/21/2018 Inactive Multivitamin & Mineral Formula Tab RxNorm: 1 Tablet(s) PO QD 0 03/31/2013 03/30/2013 Inactive metoprolol succinate ER 50 mg tablet,extended release 24 hr RxNorm: 816965 2 Tablet(s) PO QAM and 1.5 tablets (75mg) at bedtime 05/01/2019 9 Inactive Fish Oil 1,000 mg Cap RxNorm: 1 Capsule(s) PO QD 03/31/20132012 Inactive pantoprazole 40 mg tablet,delayed release RxNorm: 561867 1 Tabl et(s) PO QD 02/05/2014 02/04/2014 Inactive Eliquis 2.5 mg tablet RxNorm: 9473451 1 Tablet(s) PO BID 07/07/2019 1 Inactive Medrol 4 mg Tab RxNorm: 933329 Tablet(s) PO as directed 03/28/2012 Inactive Synthroid 75 mcg Tab RxNorm: 637186 1 Tablet(s) PO QD 02/14/201001/23 Inactive aspirin 81 mg tablet RxNorm: 247966 1 Tablet(s) PO QD 05/26/2015 090 09/2014 Inactive meclizine 25 mg tablet RxNorm: 475994 1 Tablet(s) PO TID as needed 11/26/2018 11/25/2018 Inactive metoprolol succinate ER 50 mg tablet,extended release 24 hr RxNorm: 518322 1 Tablet(s) PO QAM and 2 tablets in the evening 05/08/2019 05/07/2019 In active Aspirin 81 mg Tab RxNorm: 501861 1 Tablet(s) PO QD 03/31/2013 013 Inactive Vitamin D3 1,000 unit capsule RxNorm: 811057 1 Capsule(s) PO QD 04/201303/30/2013 Inactive Medication Administered No Medication Administered data Immunizations Vaccine Codes Dose Date Status Pneumococcal CVX: 133 0.5 ml 05/26/2015 Results Observation Observation Code Item Item Code Result Date S ervice Location GLYCOSYLATED HEMOGLOBIN TEST 73328 Hgb A1c 71993-3 6.0 % 0 03/01/2022 Unknown MEAN GLUC 6636314 Calc Mean Gluc 126 mg/dL 03/01/2022 Unkn own COMPREHENSIVE METABOLIC 56315 AST 16 U/L 2021 Unknown COMPREHENSIVE METABOLIC 22077 ALT 15 U/L 2021 Unknown COMPREHENSIVE METABOLIC 32534 BUN 18 mg/dL 2021 Unknown COMPREHENSIVE METABOLIC 27123 ALBUMIN 4.3 g/dL 2021 Unknown COMPREHENSIVE METABOLIC 91695 CHLORIDE 104 mmol/L 02/28 Unknown COMPREHENSIVE METABOLIC 95611 Bili Total 0.8 mg/dL 02/28 Unknown COMPREHENSIVE METABOLIC 89217 ALK PHOS 93 U/L 2021 Unknown COMPREHENSIVE METABOLIC 46290 SODIUM 143 mmol/L 02/28 Unknown COMPREHENSIVE METABOLIC 88561 CREATININE 0.82 mg/dL 03/2022 Unknown COMPREHENSIVE METABOLIC 25027 CALCIUM 9.8 mg/dL 2021 Unknown COMPREHENSIVE METABOLIC 96139 POTASSIUM 4.2 mmol/L 02/28 Unknown COMPREHENSIVE METABOLIC 35124 Total Protein 7.7 g/dL Unknown COMPREHENSIVE METABOLIC 58387 Glucose 116 mg/dL 2021 Unknown COMPREHENSIVE METABOLIC 65422 Bicarbonate 26 mmol/L 03/2022 Unknown COMPREHENSIVE METABOLIC 39914 AGAP 13 mmol/L 2021 Unknown FREE T4 85238 T4 Free 1.15 ng/dL 02/28/2022 Unknown THYROID STIMULATING HORMONE 55514 TSH 3.512 uIU/mL 02/28/2022 Unknown LIPID GROUP 81527 Cholesterol 158 mg/dL 02/28/2022 Unkno wn LIPID GROUP 67705 Triglyceride 78 mg/dL 02/28/2022 Unkn own LIPID GROUP 93634 HDL CHOLESTEROL 66 mg/dL 02/28/2022 U nknown LIPID GROUP 13601 Chol/HDL Ratio 2.39 ratio 02/28/2022 U nknown LIPID GROUP 41941 NON-HDL Chol 92 mg/dL 02/28/2022 Unkn own LIP[facility] GROUP 23441 LDL Cholesterol 76 mg/dL 02/28/2022 U nknown COMPLETE BLOOD COUNT [id number] WBC 6.9 10e9/L 02/29/20 22 Unknown COMPLETE BLOOD COUNT [id number] RBC 4.61 10e12/L 2021 Unknown COMPLETE BLOOD COUNT 7797780 HEMOGLOBIN 13.0 g/dL 02/29/20 22 Unknown COMPLETE BLOOD COUNT 2118341 HEMATOCRIT 42.1 % 02/29/20 22 Unknown COMPLETE BLOOD COUNT 2449700 MCV 91.3 fL 2 Unknown COMPLETE BLOOD COUNT [id number] MCH 28.2 pg 2 Unknown COMPLETE BLOOD COUNT 4519707 MCHC 30.9 g/dL 2 Unknown COMPLETE BLOOD COUNT 9703706 PLATELET COUNT 276 10e9/L 03/2022 Unknown COMPLETE BLOOD COUNT [id number] Mean Plt Volume 10.6 fL 03/2022 Unknown COMPLETE BLOOD COUNT [id number] NRBC Absolute 0.00 10e9/L 03/2022 Unknown COMPLETE BLOOD COUNT 0956967 Neut Auto 53.0 % 2 Unknown COMPLETE BLOOD COUNT 1434449 NRBC/100 WBC 0.0 2021 Unknown COMPLETE BLOOD COUNT [id number] Lymph Auto 32.0 % 02/29/20 22 Unknown COMPLETE BLOOD COUNT [id number] [place] Auto 11.0 % 2 Unknown COMPLETE BLOOD COUNT 5070703 RDW 14.4 % 2 Unknown COMPLETE BLOOD COUNT 9231789 Eos Auto 2.5 % 2 Unknown COMPLETE BLOOD COUNT 6990694 Baso Auto 1.4 % 2 Unknown COMPLETE BLOOD COUNT [id number] Neutrophil Abs 3.66 10e9/L Unknown COMPLETE BLOOD COUNT [id number] Imm Gran Auto 0.1 % 02/28 Unknown COMPLETE BLOOD COUNT [id number] Lymphocyte Abs 2.21 10e9/L Unknown COMPLETE BLOOD COUNT [id number] Monocyte Abs 0.76 10e9/L 03/2022 Unknown COMPLETE BLOOD COUNT [id number] Eosinophil Abs 0.17 10e9/L Unknown COMPLETE BLOOD COUNT [id number] RDW-SD 47.8 fL 2 Unknown COMPLETE BLOOD COUNT [id number] Basophil Abs 0.10 10e9/L 03/2022 Unknown COMPLETE BLOOD COUNT [id number] Imm Gran Abs 0.01 10e9/L 03/2022 Unknown GFR CALC 5660593 GFR >60 mL/min 02/28/2022 Unknown THYROID STIMULATING HORMONE 68179 TSH 3.017 uIU/mL 01/31/2021 Unknown COMPLETE BLOOD COUNT 5295404 WBC 6.1 10e9/L 02/01/20 21 Unknown COMPLETE BLOOD COUNT [id number] RBC 4.22 10e12/L 2020 Unknown COMPLETE BLOOD COUNT 6515491 HEMOGLOBIN 12.1 g/dL 02/01/20 21 Unknown COMPLETE BLOOD COUNT [id number] HEMATOCRIT 39.5 % 02/01/20 21 Unknown COMPLETE BLOOD COUNT 2768784 MCV 93.6 fL 1 Unknown COMPLETE BLOOD COUNT 6004611 MCH 28.7 pg 1 Unknown COMPLETE BLOOD COUNT [id number] MCHC 30.6 g/dL 1 Unknown COMPLETE BLOOD COUNT [id number] PLATELET COUNT 271 10e9/L 06/2021 Unknown COMPLETE BLOOD COUNT [id number] Mean Plt Volume 11.0 fL 06/2021 Unknown COMPLETE BLOOD COUNT 2589646 Neut Auto 57.3 % 1 Unknown COMPLETE BLOOD COUNT [id number] Lymph Auto 28.3 % 02/01/20 21 Unknown COMPLETE BLOOD COUNT 1849528 [place] Auto 10.9 % 1 Unknown COMPLETE BLOOD COUNT 2277991 RDW 14.4 % 1 Unknown COMPLETE BLOOD COUNT [id number] Eos Auto 2.8 % 1 Unknown COMPLETE BLOOD COUNT [id number] Baso Auto 0.7 % 1 Unknown COMPLETE BLOOD COUNT [id number] Neutrophil Abs 3.50 10e9/L Unknown COMPLETE BLOOD COUNT [id number] Lymphocyte Abs 1.73 10e9/L Unknown COMPLETE BLOOD COUNT [id number] Monocyte Abs 0.66 10e9/L 01/22 Unknown COMPLETE BLOOD COUNT [id number] Eosinophil Abs 0.17 10e9/L Unknown COMPLETE BLOOD COUNT 8238558 RDW-SD 47.4 fL Unknown COMPLETE BLOOD COUNT [id number] Basophil Abs 0.04 10e9/L 01/22 Unknown GLYCOSYLATED HEMOGLOBIN TEST 02751 Hgb A1c 77202-7 5.9 % 0 01/31/2021 Unknown LIPID GROUP 85560 Cholesterol 151 mg/dL 01/31/2021 Unkno wn LIPID GROUP 66302 Triglyceride 68 mg/dL 01/31/2021 Unkn own LIPID GROUP 96818 HDL CHOLESTEROL 64 mg/dL 01/31/2021 U nknown LIPID GROUP 22409 Chol/HDL Ratio 2.36 ratio 01/31/2021 U nknown LIPID GROUP 44126 NON-HDL Chol 87 mg/dL 01/31/2021 Unkn own LIPID GROUP 07820 LDL Cholesterol 73 mg/dL 01/31/2021 U nknown MEAN GLUC 6735661 Calc Mean Gluc 123 mg/dL 01/31/2021 Unkn own FREE T4 93191 T4 Free 1.11 ng/dL 01/31/2021 Unknown COMPREHENSIVE METABOLIC 47064 AST 16 U/L 2020 Unknown COMPREHENSIVE METABOLIC 72775 ALT 12 U/L 2020 Unknown COMPREHENSIVE METABOLIC 99011 BUN 14 mg/dL 2020 Unknown COMPREHENSIVE METABOLIC 72491 ALBUMIN 4.3 g/dL 2020 Unknown COMPREHENSIVE METABOLIC 92063 CHLORIDE 106 mmol/L 01/31 Unknown COMPREHENSIVE METABOLIC 19556 Bili Total 0.9 mg/dL 01/31 Unknown COMPREHENSIVE METABOLIC 14861 ALK PHOS 96 U/L 2020 Unknown COMPREHENSIVE METABOLIC 88029 SODIUM 144 mmol/L 01/31 Unknown COMPREHENSIVE METABOLIC 51778 CREATININE 0.77 mg/dL 01/22 Unknown COMPREHENSIVE METABOLIC 27477 CALCIUM 9.4 mg/dL 2020 Unknown COMPREHENSIVE METABOLIC 29164 POTASSIUM 4.2 mmol/L 01/31 Unknown COMPREHENSIVE METABOLIC 39597 Total Protein 7.4 g/dL Unknown COMPREHENSIVE METABOLIC 91985 Glucose 94 mg/dL 2020 Unknown COMPREHENSIVE METABOLIC 75354 Bicarbonate 30 mmol/L 01/22 Unknown COMPREHENSIVE METABOLIC 73504 AGAP 8 mmol/L 2020 Unknown GFR CALC 4447878 GFR Non Afr Amr >60 mL/min 01/31/2021 Un known GFR CALC 9665785 GFR Afr Amr >60 mL/min 01/31/2021 Unknow n COMPLETE BLOOD COUNT [id number] WBC 6.9 10e9/L 01/05/20 20 Unknown COMPLETE BLOOD COUNT [id number] RBC 4.20 10e12/L 2019 Unknown COMPLETE BLOOD COUNT 4548403 HEMOGLOBIN 12.2 g/dL 01/05/20 20 Unknown COMPLETE BLOOD COUNT 2907876 HEMATOCRIT 39.2 % 01/05/20 20 Unknown COMPLETE BLOOD COUNT 7503729 MCV 93.3 fL 0 Unknown COMPLETE BLOOD COUNT 5941061 MCH 29.0 pg 0 Unknown COMPLETE BLOOD COUNT 4014676 MCHC 31.1 g/dL 0 Unknown COMPLETE BLOOD COUNT 7152338 PLATELET COUNT 272 10e9/L Unknown COMPLETE BLOOD COUNT 1410230 Mean Plt Volume 11.0 fL Unknown COMPLETE BLOOD COUNT 9585883 Neut Auto 61.4 % 0 Unknown COMPLETE BLOOD COUNT 6232020 Lymph Auto 22.4 % 01/05/20 20 Unknown COMPLETE BLOOD COUNT 0796265 [place] Auto 11.7 % 0 Unknown COMPLETE BLOOD COUNT 3053045 RDW 14.6 % 0 Unknown COMPLETE BLOOD COUNT 8717482 Eos Auto 3.6 % 0 Unknown COMPLETE BLOOD COUNT 2360979 Baso Auto 0.9 % 0 Unknown COMPLETE BLOOD COUNT 8071458 Neutrophil Abs 4.24 10e9/L Unknown COMPLETE BLOOD COUNT 3398708 Lymphocyte Abs 1.55 10e9/L Unknown COMPLETE BLOOD COUNT 9692081 Monocyte Abs 0.81 10e9/L 12/23 Unknown COMPLETE BLOOD COUNT 5945051 Eosinophil Abs 0.25 10e9/L Unknown COMPLETE BLOOD COUNT 4451747 RDW-SD 48.2 fL 0 Unknown COMPLETE BLOOD COUNT 1613100 Basophil Abs 0.06 10e9/L 12/23 Unknown COMPREHENSIVE METABOLIC 84027 AST 17 U/L 2019 Unknown COMPREHENSIVE METABOLIC 12553 ALT 12 U/L 2019 Unknown COMPREHENSIVE METABOLIC 46312 BUN 18 mg/dL 2019 Unknown COMPREHENSIVE METABOLIC 36811 ALBUMIN 4.5 g/dL 2019 Unknown COMPREHENSIVE METABOLIC 19113 CHLORIDE 101 mmol/L 01/04 Unknown COMPREHENSIVE METABOLIC 40785 Bili Total 0.8 mg/dL 01/04 Unknown COMPREHENSIVE METABOLIC 12461 ALK PHOS 76 U/L 2019 Unknown COMPREHENSIVE METABOLIC 11377 SODIUM 141 mmol/L 01/04 Unknown COMPREHENSIVE METABOLIC 42653 CREATININE 1.02 mg/dL 12/23 Unknown COMPREHENSIVE METABOLIC 47895 CALCIUM 9.5 mg/dL 2019 Unknown COMPREHENSIVE METABOLIC 36042 POTASSIUM 3.9 mmol/L 01/04 Unknown COMPREHENSIVE METABOLIC 08214 Total Protein 7.4 g/dL Unknown COMPREHENSIVE METABOLIC 45489 Glucose 89 mg/dL 2019 Unknown COMPREHENSIVE METABOLIC 62776 Bicarbonate 28 mmol/L 12/23 Unknown COMPREHENSIVE METABOLIC 31889 AGAP 12 mmol/L 2019 Unknown LIPASE 04278 Lipase Lvl 34 IU/L 01/05/2020 Unknown THYROID STIMULATING HORMONE 47102 TSH 3.767 uIU/mL 01/05/2020 Unknown AMYLASE 04954 Amylase Lvl 60 IU/L 01/05/2020 Unknown GFR CALC 5346995 GFR Non Afr Amr 52 mL/min 01/05/2020 Unk nown GFR CALC 9972044 GFR Afr Amr >60 mL/min 01/05/2020 Unknow n FREE T4 96708 T4 Free 1.11 ng/dL 01/05/2020 Unknown GFR CALC 9413550 GFR Non Afr Amr 59 mL/min 12/05/2019 Unk nown GFR CALC 1663222 GFR Afr Amr >60 mL/min 12/05/2019 Unknow n COMPREHENSIVE METABOLIC 14166 AST 15 U/L 2019 Unknown COMPREHENSIVE METABOLIC 00683 ALT 12 U/L 2019 Unknown COMPREHENSIVE METABOLIC 32440 BUN 19 mg/dL 2019 Unknown COMPREHENSIVE METABOLIC 48392 ALBUMIN 4.2 g/dL 2019 Unknown COMPREHENSIVE METABOLIC 41374 CHLORIDE 104 mmol/L 12/04 Unknown COMPREHENSIVE METABOLIC 21573 Bili Total 1.0 mg/dL 12/04 Unknown COMPREHENSIVE METABOLIC 10568 ALK PHOS 78 U/L 2019 Unknown COMPREHENSIVE METABOLIC 48476 SODIUM 145 mmol/L 12/04 Unknown COMPREHENSIVE METABOLIC 68594 CREATININE 0.91 mg/dL 11/22 Unknown COMPREHENSIVE METABOLIC 68878 CALCIUM 9.3 mg/dL 2019 Unknown COMPREHENSIVE METABOLIC 00677 POTASSIUM 3.6 mmol/L 12/04 Unknown COMPREHENSIVE METABOLIC 15114 Total Protein 7.0 g/dL Unknown COMPREHENSIVE METABOLIC 66285 Glucose 96 mg/dL 2019 Unknown COMPREHENSIVE METABOLIC 68740 Bicarbonate 28 mmol/L 11/22 Unknown COMPREHENSIVE METABOLIC 16592 AGAP 13 mmol/L 2019 Unknown COMPREHENSIVE METABOLIC 22214 AST 15 U/L 2019 Unknown COMPREHENSIVE METABOLIC 14193 ALT 11 U/L 2019 Unknown COMPREHENSIVE METABOLIC 18583 BUN 14 mg/dL 2019 Unknown COMPREHENSIVE METABOLIC 93276 ALBUMIN 4.3 g/dL 2019 Unknown COMPREHENSIVE METABOLIC 69495 CHLORIDE 106 mmol/L 11/05 Unknown COMPREHENSIVE METABOLIC 36163 Bili Total 0.7 mg/dL 11/05 Unknown COMPREHENSIVE METABOLIC 22639 ALK PHOS 80 U/L 2019 Unknown COMPREHENSIVE METABOLIC 19370 SODIUM 145 mmol/L 11/05 Unknown COMPREHENSIVE METABOLIC 92189 CREATININE 0.97 mg/dL 10/25 Unknown COMPREHENSIVE METABOLIC 80913 CALCIUM 9.5 mg/dL 2019 Unknown COMPREHENSIVE METABOLIC 33359 POTASSIUM 3.9 mmol/L 11/05 Unknown COMPREHENSIVE METABOLIC 02296 Total Protein 7.0 g/dL Unknown COMPREHENSIVE METABOLIC 01486 Glucose 103 mg/dL 2019 Unknown COMPREHENSIVE METABOLIC 77972 Bicarbonate 29 mmol/L 10/25 Unknown COMPREHENSIVE METABOLIC 03459 AGAP 10 mmol/L 2019 Unknown GFR CALC 3808166 GFR Non Afr Amr 55 mL/min 11/05/2019 Unk nown GFR CALC 3593502 GFR Afr Amr >60 mL/min 11/05/2019 Unknow n FREE T4 34676 T4 Free 1.34 ng/dL 10/21/2019 Unknown COMPLETE BLOOD COUNT 4079583 WBC 7.2 10e9/L 10/21/19 20 Unknown COMPLETE BLOOD COUNT [id number] RBC 4.17 10e12/L 2019 Unknown COMPLETE BLOOD COUNT 0405971 HEMOGLOBIN 12.1 g/dL 10/21/19 20 Unknown COMPLETE BLOOD COUNT 1725374 HEMATOCRIT 39.0 % 10/21/19 20 Unknown COMPLETE BLOOD COUNT 1690261 MCV 93.5 fL 0 Unknown COMPLETE BLOOD COUNT 8198067 MCH 29.0 pg 0 Unknown COMPLETE BLOOD COUNT 0209642 MCHC 31.0 g/dL 0 Unknown COMPLETE BLOOD COUNT 2816450 PLATELET COUNT 239 10e9/L Unknown COMPLETE BLOOD COUNT 0946312 Mean Plt Volume 11.7 fL Unknown COMPLETE BLOOD COUNT 4289652 Neut Auto 63.7 % 0 Unknown COMPLETE BLOOD COUNT 6931774 Lymph Auto 21.0 % 10/21/19 20 Unknown COMPLETE BLOOD COUNT 1234477 [place] Auto 11.1 % 0 Unknown COMPLETE BLOOD COUNT 6496393 RDW 13.6 % 0 Unknown COMPLETE BLOOD COUNT 0977413 Eos Auto 3.6 % 0 Unknown COMPLETE BLOOD COUNT 4948187 Baso Auto 0.6 % 0 Unknown COMPLETE BLOOD COUNT 0620880 Neutrophil Abs 4.59 10e9/L Unknown COMPLETE BLOOD COUNT 7302932 Lymphocyte Abs 1.51 10e9/L Unknown COMPLETE BLOOD COUNT 0977209 Monocyte Abs 0.80 10e9/L 09/25 Unknown COMPLETE BLOOD COUNT 8524702 Eosinophil Abs 0.26 10e9/L Unknown COMPLETE BLOOD COUNT 2785415 RDW-SD 45.1 fL 0 Unknown COMPLETE BLOOD COUNT [id number] Basophil Abs 0.04 10e9/L 09/25 Unknown GFR CALC 7328179 GFR Non Afr Amr 42 mL/min 10/21/2019 Unk nown GFR CALC 1898443 GFR Afr Amr 50 mL/min 10/21/2019 Unknown COMPREHENSIVE METABOLIC 79855 AST 16 U/L 2019 Unknown COMPREHENSIVE METABOLIC 33277 ALT 10 U/L 2019 Unknown COMPREHENSIVE METABOLIC 95702 BUN 20 mg/dL 2019 Unknown COMPREHENSIVE METABOLIC 55092 ALBUMIN 4.4 g/dL 2019 Unknown COMPREHENSIVE METABOLIC 08673 CHLORIDE 102 mmol/L 10/21 Unknown COMPREHENSIVE METABOLIC 57685 Bili Total 0.8 mg/dL 10/21 Unknown COMPREHENSIVE METABOLIC 89265 ALK PHOS 85 U/L 2019 Unknown COMPREHENSIVE METABOLIC 12306 SODIUM 144 mmol/L 10/21 Unknown COMPREHENSIVE METABOLIC 59070 CREATININE 1.24 mg/dL 09/25 Unknown COMPREHENSIVE METABOLIC 25294 CALCIUM 9.8 mg/dL 2019 Unknown COMPREHENSIVE METABOLIC 76548 POTASSIUM 4.2 mmol/L 10/21 Unknown COMPREHENSIVE METABOLIC 91832 Total Protein 7.3 g/dL Unknown COMPREHENSIVE METABOLIC 47339 Glucose 98 mg/dL 2019 Unknown COMPREHENSIVE METABOLIC 61689 Bicarbonate 31 mmol/L 09/25 Unknown COMPREHENSIVE METABOLIC 74678 AGAP 11 mmol/L 2019 Unknown THYROID STIMULATING HORMONE 01324 TSH 2.693 uIU/mL 10/21/2019 Unknown LIPID GROUP 70085 Cholesterol 142 mg/dL 10/21/2019 Unkno wn LIPID GROUP 33695 Triglyceride 120 mg/dL 10/21/2019 Unkn own LIPID GROUP 87149 HDL CHOLESTEROL 54 mg/dL 10/21/2019 U nknown LIPID GROUP 36896 Chol/HDL Ratio 2.63 ratio 10/21/2019 U nknown LIPID GROUP 49597 NON-HDL Chol 88 mg/dL 10/21/2019 Unkn own LIPID GROUP 48507 LDL Cholesterol 64 mg/dL 10/21/2019 U nknown GFR CALC [id number] GFR Non Afr Amr >60 mL/min 04/04/2019 Un known GFR CALC [id number] GFR Afr Amr >60 mL/min 04/04/2019 Unknow n COMPLETE BLOOD COUNT [id number] WBC 5.9 10e9/L 04/04/20 19 Unknown COMPLETE BLOOD COUNT [id number] RBC 4.29 10e12/L 2018 Unknown COMPLETE BLOOD COUNT [id number] HEMOGLOBIN 12.3 g/dL 04/04/20 19 Unknown COMPLETE BLOOD COUNT [id number] HEMATOCRIT 39.2 % 04/04/20 19 Unknown COMPLETE BLOOD COUNT [id number] MCV 91.4 fL 9 Unknown COMPLETE BLOOD COUNT 4885612 MCH 28.7 pg 9 Unknown COMPLETE BLOOD COUNT 2764479 MCHC 31.4 g/dL 9 Unknown COMPLETE BLOOD COUNT [id number] PLATELET COUNT 225 10e9/L 08/2019 Unknown COMPLETE BLOOD COUNT [id number] Mean Plt Volume 11.0 fL 08/2019 Unknown COMPLETE BLOOD COUNT [id number] Neut Auto 57.2 % 9 Unknown COMPLETE BLOOD COUNT 6678929 Lymph Auto 27.3 % 04/04/20 19 Unknown COMPLETE BLOOD COUNT [id number] [place] Auto 11.2 % 9 Unknown COMPLETE BLOOD COUNT [id number] RDW 14.3 % 9 Unknown COMPLETE BLOOD COUNT 2835747 Eos Auto 3.4 % 9 Unknown COMPLETE BLOOD COUNT 2446584 Baso Auto 0.9 % 9 Unknown COMPLETE BLOOD COUNT [id number] Neutrophil Abs 3.37 10e9/L Unknown COMPLETE BLOOD COUNT 7070817 Lymphocyte Abs 1.61 10e9/L Unknown COMPLETE BLOOD COUNT [id number] Monocyte Abs 0.66 10e9/L 03/24 Unknown COMPLETE BLOOD COUNT [id number] Eosinophil Abs 0.20 10e9/L Unknown COMPLETE BLOOD COUNT [id number] RDW-SD 46.6 fL 9 Unknown COMPLETE BLOOD COUNT [id number] Basophil Abs 0.05 10e9/L 03/24 Unknown THYROID STIMULATING HORMONE 89696 TSH 2.068 uIU/mL 04/04/2019 Unknown COMPREHENSIVE METABOLIC 08059 AST 17 U/L 2018 Unknown COMPREHENSIVE METABOLIC 54618 ALT 12 U/L 2018 Unknown COMPREHENSIVE METABOLIC 41989 BUN 17 mg/dL 2018 Unknown COMPREHENSIVE METABOLIC 88324 ALBUMIN 4.3 g/dL 2018 Unknown COMPREHENSIVE METABOLIC 73679 CHLORIDE 107 mmol/L 04/04 Unknown COMPREHENSIVE METABOLIC 86544 Bili Total 1.1 mg/dL 04/04 Unknown COMPREHENSIVE METABOLIC 89190 ALK PHOS 74 U/L 2018 Unknown COMPREHENSIVE METABOLIC 41713 SODIUM 144 mmol/L 04/04 Unknown COMPREHENSIVE METABOLIC 58124 CREATININE 0.70 mg/dL 03/24 Unknown COMPREHENSIVE METABOLIC 49611 CALCIUM 9.5 mg/dL 2018 Unknown COMPREHENSIVE METABOLIC 58035 POTASSIUM 4.1 mmol/L 04/04 Unknown COMPREHENSIVE METABOLIC 33233 Total Protein 6.8 g/dL Unknown COMPREHENSIVE METABOLIC 56288 Glucose 95 mg/dL 2018 Unknown COMPREHENSIVE METABOLIC 33130 Bicarbonate 29 mmol/L 03/24 Unknown COMPREHENSIVE METABOLIC 44816 AGAP 8 mmol/L 2018 Unknown FREE T4 43685 T4 Free 1.09 ng/dL 04/04/2019 Unknown LIPID GROUP 63243 Cholesterol 149 mg/dL 04/04/2019 Unkno wn LIPID GROUP 77077 Triglyceride 70 mg/dL 04/04/2019 Unkn own LIPID GROUP 00151 HDL CHOLESTEROL 62 mg/dL 04/04/2019 U nknown LIPID GROUP 20425 Chol/HDL Ratio 2.40 ratio 04/04/2019 U nknown LIPID GROUP 83043 NON-HDL Chol 87 mg/dL 04/04/2019 Unkn own LIPID GROUP 01397 LDL Cholesterol 73 mg/dL 04/04/2019 U nknown THYROID STIMULATING HORMONE 50069 TSH 3.698 uIU/mL 10/08/2018 Unknown FREE T4 71522 T4 Free 1.24 ng/dL 10/08/2018 Unknown GFR CALC 0010491 GFR Non Afr Amr >60 mL/min 10/07/2018 Un known GFR CALC 3907060 GFR Afr Amr >60 mL/min 10/07/2018 Unknow n COMPLETE BLOOD COUNT 2372503 WBC 6.3 10e9/L 10/07/19 19 Unknown COMPLETE BLOOD COUNT [id number] RBC 4.22 10e12/L 2018 Unknown COMPLETE BLOOD COUNT 1276245 HEMOGLOBIN 12.2 g/dL 10/07/19 19 Unknown COMPLETE BLOOD COUNT [id number] HEMATOCRIT 39.4 % 10/07/19 19 Unknown COMPLETE BLOOD COUNT 4107869 MCV 93.4 fL 9 Unknown COMPLETE BLOOD COUNT 5611016 MCH 28.9 pg 9 Unknown COMPLETE BLOOD COUNT 6759024 MCHC 31.0 g/dL 9 Unknown COMPLETE BLOOD COUNT 9049095 PLATELET COUNT 231 10e9/L Unknown COMPLETE BLOOD COUNT 6921649 Mean Plt Volume 11.2 fL Unknown COMPLETE BLOOD COUNT 3316751 Neut Auto 55.7 % 9 Unknown COMPLETE BLOOD COUNT 2527799 Lymph Auto 30.3 % 10/07/19 19 Unknown COMPLETE BLOOD COUNT 1984090 [place] Auto 9.6 % 9 Unknown COMPLETE BLOOD COUNT 2863944 RDW 14.0 % 9 Unknown COMPLETE BLOOD COUNT 0632246 Eos Auto 3.5 % 9 Unknown COMPLETE BLOOD COUNT 9379561 Baso Auto 0.9 % 9 Unknown COMPLETE BLOOD COUNT 3711743 Neutrophil Abs 3.51 10e9/L Unknown COMPLETE BLOOD COUNT 6904317 Lymphocyte Abs 1.91 10e9/L Unknown COMPLETE BLOOD COUNT 1476964 Monocyte Abs 0.60 10e9/L 09/24 Unknown COMPLETE BLOOD COUNT 4697081 Eosinophil Abs 0.22 10e9/L Unknown COMPLETE BLOOD COUNT 1004281 RDW-SD 46.1 fL 9 Unknown COMPLETE BLOOD COUNT 8494567 Basophil Abs 0.06 10e9/L 09/24 Unknown COMPREHENSIVE METABOLIC 50649 AST 14 U/L 2018 Unknown COMPREHENSIVE METABOLIC 75084 ALT 10 U/L 2018 Unknown COMPREHENSIVE METABOLIC 59181 BUN 21 mg/dL 2018 Unknown COMPREHENSIVE METABOLIC 42789 ALBUMIN 4.4 g/dL 2018 Unknown COMPREHENSIVE METABOLIC 93088 CHLORIDE 105 mmol/L 10/07 Unknown COMPREHENSIVE METABOLIC 70371 Bili Total 0.7 mg/dL 10/07 Unknown COMPREHENSIVE METABOLIC 20655 ALK PHOS 80 U/L 2018 Unknown COMPREHENSIVE METABOLIC 99281 SODIUM 143 mmol/L 10/07 Unknown COMPREHENSIVE METABOLIC 70985 CREATININE 0.67 mg/dL 09/24 Unknown COMPREHENSIVE METABOLIC 54706 CALCIUM 9.3 mg/dL 2018 Unknown COMPREHENSIVE METABOLIC 37621 POTASSIUM 3.8 mmol/L 10/07 Unknown COMPREHENSIVE METABOLIC 74223 Total Protein 7.0 g/dL Unknown COMPREHENSIVE METABOLIC 38528 Glucose 98 mg/dL 2018 Unknown COMPREHENSIVE METABOLIC 41970 Bicarbonate 32 mmol/L 09/24 Unknown COMPREHENSIVE METABOLIC 49543 AGAP 6 mmol/L 2018 Unknown LIPID GROUP 38572 Cholesterol 160 mg/dL 10/07/2018 Unkno wn LIPID GROUP 84669 Triglyceride 101 mg/dL 10/07/2018 Unkn own LIPID GROUP 78920 HDL CHOLESTEROL 63 mg/dL 10/07/2018 U nknown LIPID GROUP 41762 Chol/HDL Ratio 2.54 ratio 10/07/2018 U nknown LIPID GROUP 10530 NON-HDL Chol 97 mg/dL 10/07/2018 Unkn own LIPID GROUP 33117 LDL Cholesterol 77 mg/dL 10/07/2018 U nknown MEAN GLUC 6457712 Calc Mean Gluc 114 mg/dL 10/07/2018 Unkn own GLYCOSYLATED HEMOGLOBIN TEST 24039 Hgb A1c 49606-4 5.6 % 0 10/07/2018 Unknown FREE T4 65508 T4 Free 1.21 ng/dL 02/14/2018 Unknown THYROID STIMULATING HORMONE 24719 TSH 2.977 uIU/mL 02/14/2018 Unknown COMPLETE BLOOD COUNT 0006439 WBC 5.6 10e9/L 02/14/20 18 Unknown COMPLETE BLOOD COUNT [id number] RBC 4.23 10e12/L 2017 Unknown COMPLETE BLOOD COUNT 3528507 HEMOGLOBIN 12.4 g/dL 02/14/20 18 Unknown COMPLETE BLOOD COUNT 5291643 HEMATOCRIT 39.1 % 02/14/20 18 Unknown COMPLETE BLOOD COUNT 9116572 MCV 92.4 fL 8 Unknown COMPLETE BLOOD COUNT 0094973 MCH 29.3 pg 8 Unknown COMPLETE BLOOD COUNT 6107855 MCHC 31.7 g/dL 8 Unknown COMPLETE BLOOD COUNT 5619048 PLATELET COUNT 268 10e9/L Unknown COMPLETE BLOOD COUNT 2168977 Mean Plt Volume 11.0 fL Unknown COMPLETE BLOOD COUNT 0535413 Neut Auto 52.1 % 8 Unknown COMPLETE BLOOD COUNT 0375480 Lymph Auto 32.0 % 02/14/20 18 Unknown COMPLETE BLOOD COUNT 7654564 [place] Auto 11.8 % 8 Unknown COMPLETE BLOOD COUNT 2559796 RDW 14.6 % 8 Unknown COMPLETE BLOOD COUNT 3329297 Eos Auto 3.2 % 8 Unknown COMPLETE BLOOD COUNT 5846537 Baso Auto 0.9 % 8 Unknown COMPLETE BLOOD COUNT 4858435 Neutrophil Abs 2.92 10e9/L Unknown COMPLETE BLOOD COUNT 2477643 Lymphocyte Abs 1.79 10e9/L Unknown COMPLETE BLOOD COUNT 3909407 Monocyte Abs 0.66 10e9/L 01/23 Unknown COMPLETE BLOOD COUNT 0403726 Eosinophil Abs 0.18 10e9/L Unknown COMPLETE BLOOD COUNT 1172565 RDW-SD 48.2 fL 8 Unknown COMPLETE BLOOD COUNT 4736090 Basophil Abs 0.05 10e9/L 01/23 Unknown GFR CALC 8897978 GFR Non Afr Amr >60 mL/min 02/13/2018 Un known GFR CALC 6387393 GFR Afr Amr >60 mL/min 02/13/2018 Unknow n COMPREHENSIVE METABOLIC 01086 AST 18 U/L 2017 Unknown COMPREHENSIVE METABOLIC 06655 ALT 13 U/L 2017 Unknown COMPREHENSIVE METABOLIC 82247 BUN 14 mg/dL 2017 Unknown COMPREHENSIVE METABOLIC 38499 ALBUMIN 4.3 g/dL 2017 Unknown COMPREHENSIVE METABOLIC 70185 CHLORIDE 108 mmol/L 02/13 Unknown COMPREHENSIVE METABOLIC 20313 Bili Total 0.8 mg/dL 02/13 Unknown COMPREHENSIVE METABOLIC 26178 ALK PHOS 82 U/L 2017 Unknown COMPREHENSIVE METABOLIC 39812 SODIUM 144 mmol/L 02/13 Unknown COMPREHENSIVE METABOLIC 64168 CREATININE 0.67 mg/dL 01/23 Unknown COMPREHENSIVE METABOLIC 26061 CALCIUM 9.4 mg/dL 2017 Unknown COMPREHENSIVE METABOLIC 23343 POTASSIUM 4.1 mmol/L 02/13 Unknown COMPREHENSIVE METABOLIC 57521 Total Protein 6.9 g/dL Unknown COMPREHENSIVE METABOLIC 88386 Glucose 103 mg/dL 2017 Unknown COMPREHENSIVE METABOLIC 34939 Bicarbonate 27 mmol/L 01/23 Unknown COMPREHENSIVE METABOLIC 83730 AGAP 9 mmol/L 2017 Unknown LIPID GROUP 13821 Cholesterol 169 mg/dL 10/15/2017 Unkno wn LIPID GROUP 64310 Triglyceride 99 mg/dL 10/15/2017 Unkn own LIPID GROUP 93870 HDL CHOLESTEROL 69 10/15/2017 U nknown LIPID GROUP 98776 Chol/HDL Ratio 2.45 ratio 10/15/2017 U nknown LIPID GROUP 10060 NON-HDL Chol 100 mg/dL 10/15/2017 Unkn own LIPID GROUP 92290 LDL Cholesterol 80 mg/dL 10/15/2017 U nknown COMPREHENSIVE METABOLIC 38544 AST 17 U/L 2017 Unknown COMPREHENSIVE METABOLIC 23503 ALT 13 U/L 2017 Unknown COMPREHENSIVE METABOLIC 50808 BUN 22 mg/dL 2017 Unknown COMPREHENSIVE METABOLIC 00672 ALBUMIN 4.5 g/dL 2017 Unknown COMPREHENSIVE METABOLIC 43598 CHLORIDE 99 mmol/L 2017 Unknown COMPREHENSIVE METABOLIC 20941 Bili Total 0.8 mg/dL 10/15 Unknown COMPREHENSIVE METABOLIC 52579 ALK PHOS 78 U/L 2017 Unknown COMPREHENSIVE METABOLIC 30201 SODIUM 150 mmol/L 10/15 Unknown COMPREHENSIVE METABOLIC 14750 CREATININE 0.73 mg/dL 09/25 Unknown COMPREHENSIVE METABOLIC 22356 CALCIUM 9.5 mg/dL 2017 Unknown COMPREHENSIVE METABOLIC 87342 POTASSIUM 4.2 mmol/L 10/15 Unknown COMPREHENSIVE METABOLIC 25497 Total Protein 7.2 g/dL Unknown COMPREHENSIVE METABOLIC 54789 Glucose 96 mg/dL 2017 Unknown COMPREHENSIVE METABOLIC 39961 Bicarbonate 29 mmol/L 09/25 Unknown COMPREHENSIVE METABOLIC 84533 AGAP 22 mmol/L 2017 Unknown GFR CALC 1362908 GFR Non Afr Amr >60 mL/min 10/15/2017 Un known GFR CALC 0053589 GFR Afr Amr >60 mL/min 10/15/2017 Unknow n THYROID STIMULATING HORMONE 06935 TSH 4.502 uIU/mL 10/15/2017 Unknown FREE T4 18877 T4 Free 1.44 ng/dL 10/15/2017 Unknown VITAMIN B 12 44038 VITAMIN B12 698 pg/mL 10/15/2017 Unkn own COMPLETE BLOOD COUNT 3843890 WBC 6.3 10e9/L 10/15/19 18 Unknown COMPLETE BLOOD COUNT 2027586 RBC 4.37 10e12/L 2017 Unknown COMPLETE BLOOD COUNT 0117046 HEMOGLOBIN 12.6 g/dL 10/15/19 18 Unknown COMPLETE BLOOD COUNT 8188222 HEMATOCRIT 40.3 % 10/15/19 18 Unknown COMPLETE BLOOD COUNT 6890066 MCV 92.2 fL 8 Unknown COMPLETE BLOOD COUNT 3409911 MCH 28.8 pg 8 Unknown COMPLETE BLOOD COUNT 8005101 MCHC 31.3 g/dL 8 Unknown COMPLETE BLOOD COUNT 6742274 PLATELET COUNT 256 10e9/L Unknown COMPLETE BLOOD COUNT 0981967 Mean Plt Volume 11.1 fL Unknown COMPLETE BLOOD COUNT 4253476 Neut Auto 54.8 % 8 Unknown COMPLETE BLOOD COUNT 1221693 Lymph Auto 30.5 % 10/15/19 18 Unknown COMPLETE BLOOD COUNT 4273501 [place] Auto 10.4 % 8 Unknown COMPLETE BLOOD COUNT 9401574 RDW 14.0 % 8 Unknown COMPLETE BLOOD COUNT 6065135 Eos Auto 3.8 % 8 Unknown COMPLETE BLOOD COUNT 2254900 Baso Auto 0.5 % 8 Unknown COMPLETE BLOOD COUNT 9240817 Neutrophil Abs 3.45 10e9/L Unknown COMPLETE BLOOD COUNT 0366022 Lymphocyte Abs 1.92 10e9/L Unknown COMPLETE BLOOD COUNT 6419733 Monocyte Abs 0.66 10e9/L 09/25 Unknown COMPLETE BLOOD COUNT 6748444 Eosinophil Abs 0.24 10e9/L Unknown COMPLETE BLOOD COUNT 8710998 RDW-SD 46.1 fL 8 Unknown COMPLETE BLOOD COUNT 8533877 Basophil Abs 0.03 10e9/L 09/25 Unknown VITAMIN B 12 35420 VITAMIN B12 823 pg/mL 03/30/2017 Unkn own VITAMIN B 12 91001 VITAMIN B12 321 pg/mL 12/18/2016 Unkn own COMPLETE BLOOD COUNT 7477619 WBC 6.8 10e9/L 12/12/19 17 Unknown COMPLETE BLOOD COUNT 1610917 RBC 4.37 10e12/L 2016 Unknown COMPLETE BLOOD COUNT 3023762 HEMOGLOBIN 12.5 g/dL 12/12/19 17 Unknown COMPLETE BLOOD COUNT 4175417 HEMATOCRIT 39.3 % 12/12/19 17 Unknown COMPLETE BLOOD COUNT 6572740 MCV 89.9 fL 7 Unknown COMPLETE BLOOD COUNT 2789328 MCH 28.6 pg 7 Unknown COMPLETE BLOOD COUNT 4691106 MCHC 31.8 g/dL 7 Unknown COMPLETE BLOOD COUNT 5408630 PLATELET COUNT 248 10e9/L Unknown COMPLETE BLOOD COUNT 1060835 Mean Plt Volume 10.9 fL Unknown COMPLETE BLOOD COUNT 1185729 Neut Auto 52.0 % 7 Unknown COMPLETE BLOOD COUNT 2590610 Lymph Auto 33.4 % 12/12/19 17 Unknown COMPLETE BLOOD COUNT 6506502 [place] Auto 10.1 % 7 Unknown COMPLETE BLOOD COUNT 1406262 RDW 14.6 % 7 Unknown COMPLETE BLOOD COUNT 0432069 Eos Auto 3.8 % 7 Unknown COMPLETE BLOOD COUNT 8079792 Baso Auto 0.7 % 7 Unknown COMPLETE BLOOD COUNT 6835027 Neutrophil Abs 3.54 10e9/L Unknown COMPLETE BLOOD COUNT 7088129 Lymphocyte Abs 2.27 10e9/L Unknown COMPLETE BLOOD COUNT 6311942 Monocyte Abs 0.69 10e9/L 11/23 Unknown COMPLETE BLOOD COUNT 6834351 Eosinophil Abs 0.26 10e9/L Unknown COMPLETE BLOOD COUNT 3731879 RDW-SD 47.4 fL 7 Unknown COMPLETE BLOOD COUNT 6005816 Basophil Abs 0.05 10e9/L 11/23 Unknown COMPREHENSIVE METABOLIC 32443 AST 16 U/L 2016 Unknown COMPREHENSIVE METABOLIC 44746 ALT 12 U/L 2016 Unknown COMPREHENSIVE METABOLIC 87822 BUN 22 mg/dL 2016 Unknown COMPREHENSIVE METABOLIC 99093 ALBUMIN 4.2 g/dL 2016 Unknown COMPREHENSIVE METABOLIC 12039 CHLORIDE 104 mmol/L 12/11 Unknown COMPREHENSIVE METABOLIC 72779 Bili Total 0.7 mg/dL 12/11 Unknown COMPREHENSIVE METABOLIC 80396 ALK PHOS 78 U/L 2016 Unknown COMPREHENSIVE METABOLIC 94688 SODIUM 143 mmol/L 12/11 Unknown COMPREHENSIVE METABOLIC 08357 CREATININE 0.69 mg/dL 11/23 Unknown COMPREHENSIVE METABOLIC 94549 CALCIUM 9.5 mg/dL 2016 Unknown COMPREHENSIVE METABOLIC 63055 POTASSIUM 3.9 mmol/L 12/11 Unknown COMPREHENSIVE METABOLIC 42241 Total Protein 7.1 g/dL Unknown COMPREHENSIVE METABOLIC 68508 Glucose 103 mg/dL 2016 Unknown COMPREHENSIVE METABOLIC 52521 Bicarbonate 30 mmol/L 11/23 Unknown COMPREHENSIVE METABOLIC 47535 AGAP 9 mmol/L 2016 Unknown GFR CALC 0063413 GFR Non Afr Amr >60 mL/min 12/11/2016 Un known GFR CALC 0295598 GFR Afr Amr >60 mL/min 12/11/2016 Unknow n MEAN GLUC 1536795 Calc Mean Gluc 120 mg/dL 12/11/2016 Unkn own LIPID GROUP 04972 Cholesterol 162 mg/dL 12/11/2016 Unkno wn LIPID GROUP 90660 Triglyceride 80 mg/dL 12/11/2016 Unkn own LIPID GROUP 30747 HDL CHOLESTEROL 65 mg/dL 12/11/2016 U nknown LIPID GROUP 49922 Chol/HDL Ratio 2.49 ratio 12/11/2016 U nknown LIPID GROUP 21864 NON-HDL Chol 97 mg/dL 12/11/2016 Unkn own LIPID GROUP 18679 LDL Cholesterol 81 mg/dL 12/11/2016 U nknown FREE T4 36214 T4 Free 1.46 ng/dL 12/11/2016 Unknown THYROID STIMULATING HORMONE 59448 TSH 2.578 uIU/mL 12/11/2016 Unknown GLYCOSYLATED HEMOGLOBIN TEST 79203 Hgb A1c 11464-1 5.8 % 0 12/11/2016 Unknown FREE T4 60958 FREE T4 1.68 NG/DL 05/27/2015 Unknown LIPID GROUP 64782 HDL TEST 67 MG/DL 05/27/2015 Unknown LIPID GROUP 84503 TRIG 92 MG/DL 05/27/2015 Unknown LIPID GROUP 82987 TEST LDL 84 MG/DL 05/27/2015 Unknown LIPID GROUP 36523 CHOL 169 MG/DL 05/27/2015 Unknown LIPID GROUP 60028 RCHOL/HDL 2.52 RATIO 05/27/2015 Unknow n LIPID GROUP 76773 NON-HDL CH 102 MG/DL 05/27/2015 Unknow n GLYCOSYLATED HEMOGLOBIN TEST 42367 A1C HPLC 39716-2 5.9 % 0 05/27/2015 Unknown VITAMIN B 12 79840 VIT B 12 308 PG/ML 05/27/2015 Unknow n GFR CALC 3993126 GFR AA >60 ML/MIN 05/27/2015 Unknown GFR CALC 3952067 GFR NON-AA >60 ML/MIN 05/27/2015 Unknown COMPREHENSIVE METABOLIC 48598 AST 20 U/L 2014 Unknown COMPREHENSIVE METABOLIC 14947 ALT 15 IU/L 2014 Unknown COMPREHENSIVE METABOLIC 06400 BUN 17 MG/DL 2014 Unknown COMPREHENSIVE METABOLIC 31186 ALBUMIN 4.3 GM/DL 2014 Unknown COMPREHENSIVE METABOLIC 54934 CHLORIDE 107 MMOL/L 05/27 Unknown COMPREHENSIVE METABOLIC 94902 BILI TOT 0.9 MG/DL 2014 Unknown COMPREHENSIVE METABOLIC 97099 ALK PHOS 85 U/L 2014 Unknown COMPREHENSIVE METABOLIC 15497 SODIUM 144 MMOL/L 05/27 Unknown COMPREHENSIVE METABOLIC 15890 CREATININE 0.76 MG/DL 11/2014 Unknown COMPREHENSIVE METABOLIC 82702 CALCIUM 9.5 MG/DL 2014 Unknown COMPREHENSIVE METABOLIC 18153 POTASSIUM 4.2 MMOL/L 05/27 Unknown COMPREHENSIVE METABOLIC 84378 PROT TOT 7.1 GM/DL 2014 Unknown COMPREHENSIVE METABOLIC 10307 Glucose 95 MG/DL 2014 Unknown COMPREHENSIVE METABOLIC 96718 BICARB 30 MMOL/L 2014 Unknown COMPREHENSIVE METABOLIC 92740 ANION GAP 7 MEQ/L 2014 Unknown COMPLETE BLOOD COUNT 2523505 WBC 6.5 10e9/L 05/27/20 15 Unknown COMPLETE BLOOD COUNT 4373593 RBC 4.35 10e12/L 2014 Unknown COMPLETE BLOOD COUNT 7905579 HGB 12.4 g/dL 5 Unknown COMPLETE BLOOD COUNT 8918623 HCT DET 39.3 % 5 Unknown COMPLETE BLOOD COUNT 3096986 MCV 90.3 fL 5 Unknown COMPLETE BLOOD COUNT 5863118 MCH 28.5 pg 5 Unknown COMPLETE BLOOD COUNT 4609999 MCHC 31.6 g/dL 5 Unknown COMPLETE BLOOD COUNT 8479685 PLT 245 10e9/L 05/27/20 15 Unknown COMPLETE BLOOD COUNT 1648366 MPV 11.1 fL 5 Unknown COMPLETE BLOOD COUNT 8735639 CRISTI % 53.9 % 5 Unknown COMPLETE BLOOD COUNT 4272356 LY % 30.8 % 5 Unknown COMPLETE BLOOD COUNT 6265560 MON % 11.2 % 5 Unknown COMPLETE BLOOD COUNT 3316562 EOS % 3.2 % 5 Unknown COMPLETE BLOOD COUNT 3567633 BASO % 0.9 % 5 Unknown COMPLETE BLOOD COUNT 1081995 RDW 14.5 % 5 Unknown COMPLETE BLOOD COUNT 8659793 ABS CRISTI 3.50 10e9/L 015 Unknown COMPLETE BLOOD COUNT 8005997 ABS LYMPH 2.00 10e9/L 015 Unknown COMPLETE BLOOD COUNT 0048921 ABS MONO 0.73 10e9/L 015 Unknown COMPLETE BLOOD COUNT 1666020 ABS EOS 0.21 10e9/L 015 Unknown COMPLETE BLOOD COUNT 2493408 ABS BASO 0.06 10e9/L 015 Unknown COMPLETE BLOOD COUNT 3625474 RDW-SD 46.3 fL 5 Unknown THYROID STIMULATING HORMONE 35058 TSH 2.909 uIU/ML 05/27/2015 Unknown IRON 99448 IRON TEST 63 UG/DL 12/15/2014 Unknown COMPLETE BLOOD COUNT 5893732 WBC 6.3 10e9/L 12/16/19 15 Unknown COMPLETE BLOOD COUNT 1653901 RBC 4.37 10e12/L 2014 Unknown COMPLETE BLOOD COUNT 4190682 HGB 12.6 g/dL 5 Unknown COMPLETE BLOOD COUNT 0433836 HCT DET 39.2 % 5 Unknown COMPLETE BLOOD COUNT 7230385 MCV 89.7 fL 5 Unknown COMPLETE BLOOD COUNT 0527419 MCH 28.8 pg 5 Unknown COMPLETE BLOOD COUNT 8449945 MCHC 32.1 g/dL 5 Unknown COMPLETE BLOOD COUNT 6882794 PLT 252 10e9/L 12/16/19 15 Unknown COMPLETE BLOOD COUNT 7779592 MPV 10.8 fL 5 Unknown COMPLETE BLOOD COUNT 4554004 CRISTI % 60.5 % 5 Unknown COMPLETE BLOOD COUNT 3432340 LY % 24.4 % 5 Unknown COMPLETE BLOOD COUNT 8405387 MON % 11.8 % 5 Unknown COMPLETE BLOOD COUNT 7857884 EOS % 2.7 % 5 Unknown COMPLETE BLOOD COUNT 4598217 BASO % 0.6 % 5 Unknown COMPLETE BLOOD COUNT 8889260 RDW 14.0 % 5 Unknown COMPLETE BLOOD COUNT 3031637 ABS CRISTI 3.81 10e9/L 015 Unknown COMPLETE BLOOD COUNT 7527583 ABS LYMPH 1.54 10e9/L 015 Unknown COMPLETE BLOOD COUNT 2738669 ABS MONO 0.74 10e9/L 015 Unknown COMPLETE BLOOD COUNT 8991111 ABS EOS 0.17 10e9/L 015 Unknown COMPLETE BLOOD COUNT 9533393 ABS BASO 0.04 10e9/L 015 Unknown COMPLETE BLOOD COUNT 7621592 RDW-SD 44.6 fL 5 Unknown GFR CALC 2826347 GFR AA >60 ML/MIN 11/26/2014 Unknown GFR CALC 2930732 GFR NON-AA >60 ML/MIN 11/26/2014 Unknown COMPREHENSIVE METABOLIC 15953 AST 16 U/L 2014 Unknown COMPREHENSIVE METABOLIC 31469 ALT 15 IU/L 2014 Unknown COMPREHENSIVE METABOLIC 36450 BUN 21 MG/DL 2014 Unknown COMPREHENSIVE METABOLIC 57057 ALBUMIN 4.4 GM/DL 2014 Unknown COMPREHENSIVE METABOLIC 09448 CHLORIDE 106 MMOL/L 11/26 Unknown COMPREHENSIVE METABOLIC 22574 BILI TOT 0.9 MG/DL 2014 Unknown COMPREHENSIVE METABOLIC 32664 ALK PHOS 83 U/L 2014 Unknown COMPREHENSIVE METABOLIC 02317 SODIUM 141 MMOL/L 11/26 Unknown COMPREHENSIVE METABOLIC 47761 CREATININE 0.68 MG/DL 01/2015 Unknown COMPREHENSIVE METABOLIC 49229 CALCIUM 9.4 MG/DL 2014 Unknown COMPREHENSIVE METABOLIC 07045 POTASSIUM 3.8 MMOL/L 11/26 Unknown COMPREHENSIVE METABOLIC 83021 PROT TOT 7.2 GM/DL 2014 Unknown COMPREHENSIVE METABOLIC 36632 Glucose 100 MG/DL 2014 Unknown COMPREHENSIVE METABOLIC 04579 BICARB 29 MMOL/L 2014 Unknown COMPREHENSIVE METABOLIC 90534 ANION GAP 6 MEQ/L 2014 Unknown LIPID GROUP 21284 HDL TEST 72 MG/DL 11/26/2014 Unknown LIPID GROUP 34222 TRIG 101 MG/DL 11/26/2014 Unknown LIPID GROUP 15744 TEST LDL 82 MG/DL 11/26/2014 Unknown LIPID GROUP 49226 CHOL 174 MG/DL 11/26/2014 Unknown LIPID GROUP 48052 RCHOL/HDL 2.42 RATIO 11/26/2014 Unknow n LIPID GROUP 28333 NON-HDL CH 102 MG/DL 11/26/2014 Unknow n GFR CALC 2844013 GFR AA >60 ML/MIN 08/14/2014 Unknown GFR CALC 7483230 GFR NON-AA >60 ML/MIN 08/14/2014 Unknown THYROID STIMULATING HORMONE 84017 TSH 2.261 uIU/ML 08/14/2014 Unknown COMPLETE BLOOD COUNT 2071355 WBC 5.8 10e9/L 08/14/20 14 Unknown COMPLETE BLOOD COUNT 1136305 RBC 4.33 10e12/L 2013 Unknown COMPLETE BLOOD COUNT 9688781 HGB 12.5 g/dL 4 Unknown COMPLETE BLOOD COUNT 0703103 HCT DET 39.2 % 4 Unknown COMPLETE BLOOD COUNT 2488361 MCV 90.5 fL 4 Unknown COMPLETE BLOOD COUNT 9912599 MCH 28.9 pg 4 Unknown COMPLETE BLOOD COUNT 5544388 MCHC 31.9 g/dL 4 Unknown COMPLETE BLOOD COUNT 3792808 PLT 260 10e9/L 08/14/20 14 Unknown COMPLETE BLOOD COUNT 2829192 MPV 10.9 fL 4 Unknown COMPLETE BLOOD COUNT 1141744 CRISTI % 52.9 % 4 Unknown COMPLETE BLOOD COUNT 5987204 LY % 31.0 % 4 Unknown COMPLETE BLOOD COUNT 9190318 MON % 11.3 % 4 Unknown COMPLETE BLOOD COUNT 0904423 EOS % 3.6 % 4 Unknown COMPLETE BLOOD COUNT 7595337 BASO % 1.2 % 4 Unknown COMPLETE BLOOD COUNT 8381156 RDW 13.9 % 4 Unknown COMPLETE BLOOD COUNT 9061413 ABS CRISTI 3.07 10e9/L 014 Unknown COMPLETE BLOOD COUNT 4021141 ABS LYMPH 1.80 10e9/L 014 Unknown COMPLETE BLOOD COUNT 5314827 ABS MONO 0.66 10e9/L 014 Unknown COMPLETE BLOOD COUNT 1569039 ABS EOS 0.21 10e9/L 014 Unknown COMPLETE BLOOD COUNT 1526035 ABS BASO 0.07 10e9/L 014 Unknown COMPLETE BLOOD COUNT 3944985 RDW-SD 44.8 fL 4 Unknown COMPREHENSIVE METABOLIC 96768 AST 15 U/L 2013 Unknown COMPREHENSIVE METABOLIC 33654 ALT 13 IU/L 2013 Unknown COMPREHENSIVE METABOLIC 84900 BUN 18 MG/DL 2013 Unknown COMPREHENSIVE METABOLIC 60177 ALBUMIN 4.4 GM/DL 2013 Unknown COMPREHENSIVE METABOLIC 10950 CHLORIDE 105 MMOL/L 08/14 Unknown COMPREHENSIVE METABOLIC 06774 BILI TOT 1.0 MG/DL 2013 Unknown COMPREHENSIVE METABOLIC 82017 ALK PHOS 88 U/L 2013 Unknown COMPREHENSIVE METABOLIC 39554 SODIUM 143 MMOL/L 08/14 Unknown COMPREHENSIVE METABOLIC 56611 CREATININE 0.70 MG/DL 07/26 Unknown COMPREHENSIVE METABOLIC 21333 CALCIUM 9.6 MG/DL 2013 Unknown COMPREHENSIVE METABOLIC 27883 POTASSIUM 3.9 MMOL/L 08/14 Unknown COMPREHENSIVE METABOLIC 42294 PROT TOT 7.0 GM/DL 2013 Unknown COMPREHENSIVE METABOLIC 86462 Glucose 100 MG/DL 2013 Unknown COMPREHENSIVE METABOLIC 92100 BICARB 31 MMOL/L 2013 Unknown COMPREHENSIVE METABOLIC 78107 ANION GAP 7 MEQ/L 2013 Unknown FREE T4 24608 FREE T4 1.59 NG/DL 08/14/2014 Unknown LIPID GROUP 28670 HDL TEST 66 MG/DL 08/14/2014 Unknown LIPID GROUP 16634 TRIG 106 MG/DL 08/14/2014 Unknown LIPID GROUP 90056 TEST LDL 152 MG/DL 08/14/2014 Unknown LIPID GROUP 84456 CHOL 239 MG/DL 08/14/2014 Unknown LIPID GROUP 91345 RCHOL/HDL 3.62 RATIO 08/14/2014 Unknow n LIPID GROUP 24333 NON-HDL CH 173 MG/DL 08/14/2014 Unknow n COMPREHENSIVE METABOLIC 98765 AST 16 U/L 2013 Unknown COMPREHENSIVE METABOLIC 56057 ALT 13 IU/L 2013 Unknown COMPREHENSIVE METABOLIC 02020 BUN 20 MG/DL 2013 Unknown COMPREHENSIVE METABOLIC 87579 ALBUMIN 4.4 GM/DL 2013 Unknown COMPREHENSIVE METABOLIC 62287 CHLORIDE 104 MMOL/L 02/04 Unknown COMPREHENSIVE METABOLIC 03974 BILI TOT 0.8 MG/DL 2013 Unknown COMPREHENSIVE METABOLIC 43303 ALK PHOS 79 U/L 2013 Unknown COMPREHENSIVE METABOLIC 98483 SODIUM 141 MMOL/L 02/04 Unknown COMPREHENSIVE METABOLIC 03222 CREATININE 0.73 MG/DL 01/22 Unknown COMPREHENSIVE METABOLIC 42610 CALCIUM 9.6 MG/DL 2013 Unknown COMPREHENSIVE METABOLIC 14510 POTASSIUM 4.0 MMOL/L 02/04 Unknown COMPREHENSIVE METABOLIC 36567 PROT TOT 7.2 GM/DL 2013 Unknown COMPREHENSIVE METABOLIC 01952 Glucose 96 MG/DL 2013 Unknown COMPREHENSIVE METABOLIC 79322 BICARB 31 MMOL/L 2013 Unknown COMPREHENSIVE METABOLIC 45638 ANION GAP 6 MEQ/L 2013 Unknown GFR CALC 0227063 GFR AA >60 ML/MIN 02/04/2014 Unknown GFR CALC 2274987 GFR NON-AA >60 ML/MIN 02/04/2014 Unknown FREE T4 65409 FREE T4 1.59 NG/DL 02/04/2014 Unknown COMPLETE BLOOD COUNT [id number] WBC 5.9 10e9/L 02/05/20 14 Unknown COMPLETE BLOOD COUNT [id number] RBC 4.37 10e12/L 2013 Unknown COMPLETE BLOOD COUNT [id number] HGB 12.6 g/dL 4 Unknown COMPLETE BLOOD COUNT [id number] HCT DET 39.0 % 4 Unknown COMPLETE BLOOD COUNT [id number] MCV 89.2 fL 4 Unknown COMPLETE BLOOD COUNT [id number] MCH 28.8 pg 4 Unknown COMPLETE BLOOD COUNT [id number] MCHC 32.3 g/dL 4 Unknown COMPLETE BLOOD COUNT [id number] PLT 265 10e9/L 02/05/20 14 Unknown COMPLETE BLOOD COUNT [id number] MPV 10.8 fL 4 Unknown COMPLETE BLOOD COUNT [id number] CRISTI % 55.5 % 4 Unknown COMPLETE BLOOD COUNT [id number] LY % 30.8 % 4 Unknown COMPLETE BLOOD COUNT 1056186 MON % 10.0 % 4 Unknown COMPLETE BLOOD COUNT [id number] EOS % 2.7 % 4 Unknown COMPLETE BLOOD COUNT [id number] BASO % 1.0 % 4 Unknown COMPLETE BLOOD COUNT [id number] RDW 14.2 % 4 Unknown COMPLETE BLOOD COUNT [id number] ABS CRISTI 3.27 10e9/L 014 Unknown COMPLETE BLOOD COUNT [id number] ABS LYMPH 1.82 10e9/L 014 Unknown COMPLETE BLOOD COUNT [id number] ABS MONO 0.59 10e9/L 014 Unknown COMPLETE BLOOD COUNT [id number] ABS EOS 0.16 10e9/L 014 Unknown COMPLETE BLOOD COUNT [id number] ABS BASO 0.06 10e9/L 014 Unknown COMPLETE BLOOD COUNT [id number] RDW-SD 45.2 fL 4 Unknown LIPID GROUP 44968 HDL TEST 69 MG/DL 02/04/2014 Unknown LIPID GROUP 86757 TRIG 121 MG/DL 02/04/2014 Unknown LIPID GROUP 69693 TEST LDL 144 MG/DL 02/04/2014 Unknown LIPID GROUP 27627 CHOL 237 MG/DL 02/04/2014 Unknown LIPID GROUP 48723 RCHOL/HDL 3.43 RATIO 02/04/2014 Unknow n THYROID STIMULATING HORMONE 78678 TSH 2.310 uIU/ML 02/04/2014 Unknown THYROID STIMULATING HORMONE 61399 TSH 2.429 uIU/ML 03/18/2012 Unknown COMPREHENSIVE METABOLIC 65507 AST 17 U/L 2011 Unknown COMPREHENSIVE METABOLIC 75061 ALT 15 IU/L 2011 Unknown COMPREHENSIVE METABOLIC 93820 BUN 17 MG/DL 2011 Unknown COMPREHENSIVE METABOLIC 10731 ALBUMIN 4.1 GM/DL 2011 Unknown COMPREHENSIVE METABOLIC 09705 CHLORIDE 108 MMOL/L 03/18 Unknown COMPREHENSIVE METABOLIC 63390 BILI TOT 0.7 MG/DL 2011 Unknown COMPREHENSIVE METABOLIC 41427 ALK PHOS 79 U/L 2011 Unknown COMPREHENSIVE METABOLIC 44765 SODIUM 144 MMOL/L 03/18 Unknown COMPREHENSIVE METABOLIC 64755 CREATININE 0.68 MG/DL 02/23 Unknown COMPREHENSIVE METABOLIC 70101 CALCIUM 9.0 MG/DL 2011 Unknown COMPREHENSIVE METABOLIC 64737 POTASSIUM 3.7 MMOL/L 03/18 Unknown COMPREHENSIVE METABOLIC 38918 PROT TOT 6.6 GM/DL 2011 Unknown COMPREHENSIVE METABOLIC 26469 Glucose 99 MG/DL 2011 Unknown COMPREHENSIVE METABOLIC 21278 BICARB 28 MMOL/L 2011 Unknown COMPREHENSIVE METABOLIC 74690 ANION GAP 8 MEQ/L 2011 Unknown LIPID GROUP 81597 HDL TEST 65 MG/DL 03/18/2012 Unknown LIPID GROUP 43589 TRIG 86 MG/DL 03/18/2012 Unknown LIPID GROUP 28988 TEST LDL 153 MG/DL 03/18/2012 Unknown LIPID GROUP 50188 CHOL 235 MG/DL 03/18/2012 Unknown LIPID GROUP 82225 RCHOL/HDL 3.62 RATIO 03/18/2012 Unknow n GFR CALC [id number] GFR AA >60 ML/MIN 03/18/2012 Unknown GFR CALC [id number] GFR NON-AA >60 ML/MIN 03/18/2012 Unknown COMPLETE BLOOD COUNT 36350 WBC 5.1 10e9/L 03/18/20 12 Unknown COMPLETE BLOOD COUNT 83903 RBC 4.32 10e12/L 2011 Unknown COMPLETE BLOOD COUNT 86805 HGB 12.4 g/dL 2 Unknown COMPLETE BLOOD COUNT 95317 HCT DET 38.4 % 2 Unknown COMPLETE BLOOD COUNT 21474 MCV 88.9 fL 2 Unknown COMPLETE BLOOD COUNT 07399 MCH 28.7 pg 2 Unknown COMPLETE BLOOD COUNT 39373 MCHC 32.3 g/dL 2 Unknown COMPLETE BLOOD COUNT 73922 PLT 245 10e9/L 03/18/20 12 Unknown COMPLETE BLOOD COUNT 37470 MPV 10.7 fL 2 Unknown COMPLETE BLOOD COUNT 59970 CRISTI % 52.9 % 2 Unknown COMPLETE BLOOD COUNT 89492 LY % 31.5 % 2 Unknown COMPLETE BLOOD COUNT 12098 MON % 12.3 % 2 Unknown COMPLETE BLOOD COUNT 10059 EOS % 2.9 % 2 Unknown COMPLETE BLOOD COUNT 58730 BASO % 0.4 % 2 Unknown COMPLETE BLOOD COUNT 62950 RDW 13.9 % 2 Unknown COMPLETE BLOOD COUNT 27000 ABS CRISTI 2.70 10e9/L 012 Unknown COMPLETE BLOOD COUNT 60593 ABS LYMPH 1.61 10e9/L 012 Unknown COMPLETE BLOOD COUNT 03750 ABS MONO 0.63 10e9/L 012 Unknown COMPLETE BLOOD COUNT 89816 ABS EOS 0.15 10e9/L 012 Unknown COMPLETE BLOOD COUNT 88533 ABS BASO 0.02 10e9/L 012 Unknown COMPLETE BLOOD COUNT 78520 RDW-SD 44.5 fL 2 Unknown FREE T4 07803 FREE T4 1.50 NG/DL 03/18/2012 Unknown LIPID GROUP 36625 HDL TEST 61 MG/DL 07/13/2011 Unknown LIPID GROUP 54087 TRIG 158 MG/DL 07/13/2011 Unknown LIPID GROUP 70425 TEST LDL 131 MG/DL 07/13/2011 Unknown LIPID GROUP 29113 CHOL 224 MG/DL 07/13/2011 Unknown LIPID GROUP 77069 RCHOL/HDL 3.67 RATIO 07/13/2011 Unknow n COMPREHENSIVE METABOLIC 87328 AST 19 U/L 2010 Unknown COMPREHENSIVE METABOLIC 78703 ALT 17 IU/L 2010 Unknown COMPREHENSIVE METABOLIC 20230 BUN 14 MG/DL 2010 Unknown COMPREHENSIVE METABOLIC 57923 ALBUMIN 4.2 GM/DL 2010 Unknown COMPREHENSIVE METABOLIC 89443 CHLORIDE 105 MMOL/L 07/13 Unknown COMPREHENSIVE METABOLIC 60116 BILI TOT 0.9 MG/DL 2010 Unknown COMPREHENSIVE METABOLIC 64943 ALK PHOS 71 U/L 2010 Unknown COMPREHENSIVE METABOLIC 64494 SODIUM 141 MMOL/L 07/13 Unknown COMPREHENSIVE METABOLIC 10221 CREATININE 0.68 MG/DL 06/25 Unknown COMPREHENSIVE METABOLIC 01803 CALCIUM 9.3 MG/DL 2010 Unknown COMPREHENSIVE METABOLIC 16581 POTASSIUM 3.8 MMOL/L 07/13 Unknown COMPREHENSIVE METABOLIC 83733 PROT TOT 6.5 GM/DL 2010 Unknown COMPREHENSIVE METABOLIC 51390 Glucose 94 MG/DL 2010 Unknown COMPREHENSIVE METABOLIC 85033 BICARB 28 MMOL/L 2010 Unknown COMPREHENSIVE METABOLIC 63753 ANION GAP 8 MEQ/L 2010 Unknown COMPLETE BLOOD COUNT 11875 WBC 5.4 10e9/L 07/13/20 11 Unknown COMPLETE BLOOD COUNT 37610 RBC 4.20 10e12/L 2010 Unknown COMPLETE BLOOD COUNT 78383 HGB 12.4 g/dL 1 Unknown COMPLETE BLOOD COUNT 11576 HCT DET 37.6 % 1 Unknown COMPLETE BLOOD COUNT 96311 MCV 89.5 fL 1 Unknown COMPLETE BLOOD COUNT 60572 MCH 29.5 pg 1 Unknown COMPLETE BLOOD COUNT 31062 MCHC 33.0 g/dL 1 Unknown COMPLETE BLOOD COUNT 72213 PLT 273 10e9/L 07/13/20 11 Unknown COMPLETE BLOOD COUNT 35357 MPV 10.7 fL 1 Unknown COMPLETE BLOOD COUNT 24297 CRISTI % 49.9 % 1 Unknown COMPLETE BLOOD COUNT 16311 LY % 35.9 % 1 Unknown COMPLETE BLOOD COUNT 54303 MON % 10.4 % 1 Unknown COMPLETE BLOOD COUNT 92787 EOS % 2.9 % 1 Unknown COMPLETE BLOOD COUNT 78148 BASO % 0.9 % 1 Unknown COMPLETE BLOOD COUNT 31991 RDW 13.8 % 1 Unknown COMPLETE BLOOD COUNT 18290 ABS CRISTI 2.69 10e9/L 011 Unknown COMPLETE BLOOD COUNT 39275 ABS LYMPH 1.94 10e9/L 011 Unknown COMPLETE BLOOD COUNT 78950 ABS MONO 0.56 10e9/L 011 Unknown COMPLETE BLOOD COUNT 85494 ABS EOS 0.16 10e9/L 011 Unknown COMPLETE BLOOD COUNT 43302 ABS BASO 0.05 10e9/L 011 Unknown COMPLETE BLOOD COUNT 95759 RDW-SD 44.4 fL 1 Unknown GFR CALC 7259306 GFR AA >60 ML/MIN 07/13/2011 Unknown GFR CALC 5200026 GFR NON-AA >60 ML/MIN 07/13/2011 Unknown FREE T4 78413 FREE T4 1.36 NG/DL 07/13/2011 Unknown THYROID STIMULATING HORMONE 80708 TSH 4.261 uIU/ML 07/13/2011 Unknown GFR CALC 3316836 GFR AA >60 ML/MIN 03/13/2011 Unknown GFR CALC 1718116 GFR NON-AA >60 ML/MIN 03/13/2011 Unknown LIPID GROUP 48314 HDL TEST 60 MG/DL 03/13/2011 Unknown LIPID GROUP 99930 TRIG 140 MG/DL 03/13/2011 Unknown LIPID GROUP 29055 TEST LDL 122 MG/DL 03/13/2011 Unknown LIPID GROUP 68701 CHOL 210 MG/DL 03/13/2011 Unknown LIPID GROUP 53985 RCHOL/HDL 3.50 RATIO 03/13/2011 Unknow n FREE T4 64732 FREE T4 1.36 NG/DL 03/13/2011 Unknown THYROID STIMULATING HORMONE 72541 TSH 7.688 uIU/ML 03/13/2011 Unknown COMPREHENSIVE METABOLIC 68674 AST 17 U/L 2010 Unknown COMPREHENSIVE METABOLIC 73917 ALT 12 IU/L 2010 Unknown COMPREHENSIVE METABOLIC 46723 BUN 19 MG/DL 2010 Unknown COMPREHENSIVE METABOLIC 46399 ALBUMIN 4.3 GM/DL 2010 Unknown COMPREHENSIVE METABOLIC 60912 CHLORIDE 105 MMOL/L 03/13 Unknown COMPREHENSIVE METABOLIC 66822 BILI TOT 0.6 MG/DL 2010 Unknown COMPREHENSIVE METABOLIC 01068 ALK PHOS 68 U/L 2010 Unknown COMPREHENSIVE METABOLIC 95377 SODIUM 139 MMOL/L 03/13 Unknown COMPREHENSIVE METABOLIC 17631 CREATININE 0.77 MG/DL 02/23 Unknown COMPREHENSIVE METABOLIC 70541 CALCIUM 9.2 MG/DL 2010 Unknown COMPREHENSIVE METABOLIC 59347 POTASSIUM 3.8 MMOL/L 03/13 Unknown COMPREHENSIVE METABOLIC 42598 PROT TOT 6.9 GM/DL 2010 Unknown COMPREHENSIVE METABOLIC 41145 Glucose 97 MG/DL 2010 Unknown COMPREHENSIVE METABOLIC 77383 BICARB 25 MMOL/L 2010 Unknown COMPREHENSIVE METABOLIC 17815 ANION GAP 9 MEQ/L 2010 Unknown FREE T4 68836 FREE T4 1.32 NG/DL 12/16/2010 Unknown COMPLETE BLOOD COUNT 37067 WBC 5.6 10e9/L 12/17/19 11 Unknown COMPLETE BLOOD COUNT 04643 RBC 4.38 10e12/L 2010 Unknown COMPLETE BLOOD COUNT 39861 HGB 12.5 g/dL 1 Unknown COMPLETE BLOOD COUNT 63144 HCT DET 38.7 % 1 Unknown COMPLETE BLOOD COUNT 38052 MCV 88.4 fL 1 Unknown COMPLETE BLOOD COUNT 76148 MCH 28.5 pg 1 Unknown COMPLETE BLOOD COUNT 18000 MCHC 32.3 g/dL 1 Unknown COMPLETE BLOOD COUNT 87230 PLT 249 10e9/L 12/17/19 11 Unknown COMPLETE BLOOD COUNT 48474 MPV 10.5 fL 1 Unknown COMPLETE BLOOD COUNT 47828 CRISTI % 52.8 % 1 Unknown COMPLETE BLOOD COUNT 64126 LY % 33.3 % 1 Unknown COMPLETE BLOOD COUNT 76461 MON % 9.8 % 1 Unknown COMPLETE BLOOD COUNT 37896 EOS % 3.4 % 1 Unknown COMPLETE BLOOD COUNT 00690 BASO % 0.7 % 1 Unknown COMPLETE BLOOD COUNT 42436 RDW 14.2 % 1 Unknown COMPLETE BLOOD COUNT 84746 ABS CRISTI 2.96 10e9/L 011 Unknown COMPLETE BLOOD COUNT 81314 ABS LYMPH 1.86 10e9/L 011 Unknown COMPLETE BLOOD COUNT 85424 ABS MONO 0.55 10e9/L 011 Unknown COMPLETE BLOOD COUNT 72376 ABS EOS 0.19 10e9/L 011 Unknown COMPLETE BLOOD COUNT 62188 ABS BASO 0.04 10e9/L 011 Unknown COMPLETE BLOOD COUNT 87587 RDW-SD 45.1 fL 1 Unknown GFR CALC [id number] GFR AA >60 ML/MIN 12/16/2010 Unknown GFR CALC 0541691 GFR NON-AA >60 ML/MIN 12/16/2010 Unknown THYROID STIMULATING HORMONE 03773 TSH 7.082 uIU/ML 12/16/2010 Unknown COMPREHENSIVE METABOLIC 04254 AST 21 U/L 2010 Unknown COMPREHENSIVE METABOLIC 27128 ALT 18 IU/L 2010 Unknown COMPREHENSIVE METABOLIC 85045 BUN 22 MG/DL 2010 Unknown COMPREHENSIVE METABOLIC 04570 ALBUMIN 4.6 GM/DL 2010 Unknown COMPREHENSIVE METABOLIC 34214 CHLORIDE 102 MMOL/L 12/16 Unknown COMPREHENSIVE METABOLIC 82267 BILI TOT 0.6 MG/DL 2010 Unknown COMPREHENSIVE METABOLIC 07762 ALK PHOS 72 U/L 2010 Unknown COMPREHENSIVE METABOLIC 04348 SODIUM 140 MMOL/L 12/16 Unknown COMPREHENSIVE METABOLIC 46940 CREATININE 0.73 MG/DL 11/23 Unknown COMPREHENSIVE METABOLIC 48123 CALCIUM 9.4 MG/DL 2010 Unknown COMPREHENSIVE METABOLIC 06174 POTASSIUM 4.2 MMOL/L 12/16 Unknown COMPREHENSIVE METABOLIC 39230 PROT TOT 7.1 GM/DL 2010 Unknown COMPREHENSIVE METABOLIC 78561 Glucose 88 MG/DL 2010 Unknown COMPREHENSIVE METABOLIC 84110 BICARB 30 MMOL/L 2010 Unknown COMPREHENSIVE METABOLIC 20255 ANION GAP 8 MEQ/L 2010 Unknown LIPID GROUP 89615 HDL TEST 66 MG/DL 12/16/2010 Unknown LIPID GROUP 21137 TRIG 154 MG/DL 12/16/2010 Unknown LIPID GROUP 88295 TEST LDL 128 MG/DL 12/16/2010 Unknown LIPID GROUP 85480 CHOL 225 MG/DL 12/16/2010 Unknown LIPID GROUP 34628 RCHOL/HDL 3.41 RATIO 12/16/2010 Unknow n Procedures Procedure Codes Date ROUTINE VENIPUNCTURE CPT-4: 78794 02/28/2022 RML ASSAY OF FREE THYROXINE CPT-4: 64642 02/28/2022 RML ASSAY THYROID STIM HORMONE CPT-4: 83835 RML COMPREHEN METABOLIC PANEL CPT-4: 37198 02/28/2022 RML COMPLETE CBC W/AUTO DIFF WBC CPT-4: 88277 022 RML LIPID PANEL CPT-4: 06907 02/28/2022 RML A1C HPLC CPT-4: 40445 02/28/2022 SARSCOV & INF VIR A&B AG IA CPT-4: 16165 08/09/2021 CLEAR OUTER EAR CANAL CPT-4: 39890 08/09/2021 ROUTINE VENIPUNCTURE CPT-4: 09305 07/20/2021 RML ASSAY OF FREE THYROXINE CPT-4: 96265 07/20/2021 RML ASSAY THYROID STIM HORMONE CPT-4: 66990 RML COMPREHEN METABOLIC PANEL CPT-4: 70206 07/20/2021 RML COMPLETE CBC W/AUTO DIFF WBC CPT-4: 07665 021 RML A1C HPLC CPT-4: 67121 07/20/2021 DESTRUCT B9 LESION 1-14 CPT-4: 61444 05/12/2021 THER/PROPH/DIAG INJ SC/IM CPT-4: 88953 03/08/2021 TRIAMCINOLONE ACET INJ NOS CPT-4: J3301 03/08/2021 ROUTINE VENIPUNCTURE CPT-4: 70814 01/31/2021 RML COMPREHEN METABOLIC PANEL CPT-4: 99800 01/31/2021 RML COMPLETE CBC W/AUTO DIFF WBC CPT-4: 95049 021 RML LIPID PANEL CPT-4: 73253 01/31/2021 RML ASSAY OF FREE THYROXINE CPT-4: 12673 01/31/2021 RML ASSAY THYROID STIM HORMONE CPT-4: 84916 RML A1C HPLC CPT-4: 24652 01/31/2021 EXC TR-EXT B9+JOSE G 0.5 CM< CPT-4: 29986 05/19/2020 PPPS, subseq visit CPT-4: G0439 05/11/2020 ROUTINE VENIPUNCTURE CPT-4: 30140 05/05/2020 RML ASSAY OF FREE THYROXINE CPT-4: 94968 05/05/2020 RML ASSAY THYROID STIM HORMONE CPT-4: 10017 0 RML COMPREHEN METABOLIC PANEL CPT-4: 41386 05/05/2020 RML COMPLETE CBC W/AUTO DIFF WBC CPT-4: 45652 020 RML LIPID PANEL CPT-4: 67713 05/05/2020 RML A1C HPLC CPT-4: 68565 05/05/2020 THER/PROPH/DIAG INJ SC/IM CPT-4: 99419 01/28/2020 TRIAMCINOLONE ACET INJ NOS CPT-4: J3301 01/28/2020 ROUTINE VENIPUNCTURE CPT-4: 22370 01/05/2020 RML ASSAY OF FREE THYROXINE CPT-4: 15586 01/05/2020 RML ASSAY THYROID STIM HORMONE CPT-4: 35140 0 RML COMPREHEN METABOLIC PANEL CPT-4: 27602 01/05/2020 RML COMPLETE CBC W/AUTO DIFF WBC CPT-4: 07466 020 ASSAY OF AMYLASE CPT-4: 81364 01/05/2020 ASSAY OF LIPASE CPT-4: 76954 01/05/2020 ROUTINE VENIPUNCTURE CPT-4: 87604 12/05/2019 RML COMPREHEN METABOLIC PANEL CPT-4: 14687 12/05/2019 ROUTINE VENIPUNCTURE CPT-4: 68088 11/05/2019 RML COMPREHEN METABOLIC PANEL CPT-4: 54852 11/05/2019 URINALYSIS NONAUTO W/O SCOPE CPT-4: 31224 10/23/2019 URINE CULTURE/ COLONY COUNT CPT-4: 53569 10/23/2019 ROUTINE VENIPUNCTURE CPT-4: 32146 10/21/2019 RML ASSAY OF FREE THYROXINE CPT-4: 51591 10/21/2019 RML ASSAY THYROID STIM HORMONE CPT-4: 30844 0 RML COMPREHEN METABOLIC PANEL CPT-4: 25246 10/21/2019 RML COMPLETE CBC W/AUTO DIFF WBC CPT-4: 94217 020 RML LIPID PANEL CPT-4: 43148 10/21/2019 HYDRATION IV INFUSION INIT CPT-4: 92257 10/20/2019 Removal impacted cerumen using irrigation/lavage, unilateral CPT-4: 23130 10/20/2019 ROUTINE VENIPUNCTURE CPT-4: 63886 04/04/2019 RML COMPLETE CBC W/AUTO DIFF WBC CPT-4: 38188 019 RML COMPREHEN METABOLIC PANEL CPT-4: 46273 04/04/2019 RML ASSAY THYROID STIM HORMONE CPT-4: 95071 9 RML ASSAY OF FREE THYROXINE CPT-4: 03646 04/04/2019 RML LIPID PANEL CPT-4: 81422 04/04/2019 PPPS, subseq visit CPT-4: G0439 11/26/2018 ROUTINE VENIPUNCTURE CPT-4: 83242 10/07/2018 RML ASSAY THYROID STIM HORMONE CPT-4: 36378 9 RML ASSAY OF FREE THYROXINE CPT-4: 10406 10/07/2018 RML COMPREHEN METABOLIC PANEL CPT-4: 61815 10/07/2018 RML COMPLETE CBC W/AUTO DIFF WBC CPT-4: 10396 019 RML LIPID PANEL CPT-4: 05432 10/07/2018 RML A1C HPLC CPT-4: 54281 10/07/2018 CERUM REMOVAL CPT-4: 01223 06/25/2018 THER/PROPH/DIAG INJ SC/IM CPT-4: 02325 05/03/2018 TRIAMCINOLONE ACET INJ NOS CPT-4: J3301 05/03/2018 Removal impacted cerumen using irrigation/lavage, unilateral CPT-4: 12759 02/19/2018 ROUTINE VENIPUNCTURE CPT-4: 93989 02/13/2018 RML ASSAY OF FREE THYROXINE CPT-4: 80455 02/13/2018 RML ASSAY THYROID STIM HORMONE CPT-4: 31955 8 RML COMPREHEN METABOLIC PANEL CPT-4: 39406 02/13/2018 RML COMPLETE CBC W/AUTO DIFF WBC CPT-4: 57644 018 ROUTINE VENIPUNCTURE CPT-4: 91518 10/15/2017 RML ASSAY OF FREE THYROXINE CPT-4: 80458 10/15/2017 RML ASSAY THYROID STIM HORMONE CPT-4: 58296 8 RML COMPREHEN METABOLIC PANEL CPT-4: 88277 10/15/2017 RML COMPLETE CBC W/AUTO DIFF WBC CPT-4: 76547 018 RML LIPID PANEL CPT-4: 40227 10/15/2017 VITAMIN B-12 CPT-4: 59532 10/15/2017 CERUM REMOVAL CPT-4: 50850 07/24/2017 ROUTINE VENIPUNCTURE CPT-4: 32083 03/30/2017 VITAMIN B-12 CPT-4: 13020 03/30/2017 ROUTINE VENIPUNCTURE CPT-4: 49222 12/18/2016 VITAMIN B-12 CPT-4: 43835 12/18/2016 PPPS, subseq visit CPT-4: G0439 12/18/2016 ROUTINE VENIPUNCTURE CPT-4: 07863 12/11/2016 RML ASSAY OF FREE THYROXINE CPT-4: 79088 12/11/2016 RML ASSAY THYROID STIM HORMONE CPT-4: 12544 7 RML COMPREHEN METABOLIC PANEL CPT-4: 13565 12/11/2016 RML COMPLETE CBC W/AUTO DIFF WBC CPT-4: 42302 017 RML LIPID PANEL CPT-4: 57491 12/11/2016 RML A1C HPLC CPT-4: 82310 12/11/2016 URINALYSIS NONAUTO W/O SCOPE CPT-4: 91407 02/07/2016 ROUTINE VENIPUNCTURE CPT-4: 06562 05/27/2015 RML ASSAY OF FREE THYROXINE CPT-4: 60175 05/27/2015 RML ASSAY THYROID STIM HORMONE CPT-4: 32944 5 RML COMPREHEN METABOLIC PANEL CPT-4: 76989 05/27/2015 RML COMPLETE CBC W/AUTO DIFF WBC CPT-4: 20053 015 RML LIPID PANEL CPT-4: 30458 05/27/2015 VITAMIN B-12 CPT-4: 88213 05/27/2015 RML A1C HPLC CPT-4: 61455 05/27/2015 PNEUMOCOCCAL VACC 13 LEN IM CPT-4: 63575 05/26/2015 ADMIN PNEUMOCOCCAL VACCINE CPT-4: G0009 05/26/2015 CUR TOBACCO NON-USER CPT-4: G8457 05/26/2015 OCCULT BLOOD FECES CPT-4: 16981 02/19/2015 OCCULT BLOOD FECES CPT-4: 71858 01/20/2015 ROUTINE VENIPUNCTURE CPT-4: 18509 12/15/2014 ASSAY OF IRON CPT-4: 02243 12/15/2014 RML COMPLETE CBC W/AUTO DIFF WBC CPT-4: 37626 015 CERUM REMOVAL CPT-4: 27706 11/30/2014 PRESCRIP TRANSMIT VIA ERX SY CPT-4: G8553 11/30/2014 ROUTINE VENIPUNCTURE CPT-4: 22578 11/26/2014 RML COMPREHEN METABOLIC PANEL CPT-4: 58792 11/26/2014 RML LIPID PANEL CPT-4: 22123 11/26/2014 ROUTINE VENIPUNCTURE CPT-4: 76202 08/14/2014 RML ASSAY OF FREE THYROXINE CPT-4: 18145 08/14/2014 RML ASSAY THYROID STIM HORMONE CPT-4: 16262 4 RML COMPREHEN METABOLIC PANEL CPT-4: 71735 08/14/2014 RML COMPLETE CBC W/AUTO DIFF WBC CPT-4: 23562 014 RML LIPID PANEL CPT-4: 76797 08/14/2014 PRESCRIP TRANSMIT VIA ERX SY CPT-4: G8553 07/23/2014 PRESCRIP TRANSMIT VIA ERX SY CPT-4: G8553 03/09/2014 PRESCRIP TRANSMIT VIA ERX SY CPT-4: G8553 02/05/2014 ROUTINE VENIPUNCTURE CPT-4: 99474 02/04/2014 RML ASSAY OF FREE THYROXINE CPT-4: 61587 02/04/2014 RML ASSAY THYROID STIM HORMONE CPT-4: 62219 4 RML COMPREHEN METABOLIC PANEL CPT-4: 22572 02/04/2014 RML COMPLETE CBC W/AUTO DIFF WBC CPT-4: 58290 014 RML LIPID PANEL CPT-4: 42384 02/04/2014 DRAIN/INJECT JOINT/BURSA CPT-4: 72014 04/07/2013 METHYLPREDNISOLONE 40 MG INJ CPT-4: J1030 04/07/2013 TRIAMCINOLONE ACET INJ NOS CPT-4: J3301 04/07/2013 PRESCRIP TRANSMIT VIA ERX SY CPT-4: G8553 04/07/2013 DRAIN/INJECT JOINT/BURSA CPT-4: 87339 10/09/2012 METHYLPREDNISOLONE 40 MG INJ CPT-4: J1030 10/09/2012 TRIAMCINOLONE ACET INJ NOS CPT-4: J3301 10/09/2012 PRESCRIP TRANSMIT VIA ERX SY CPT-4: G8553 03/28/2012 ROUTINE VENIPUNCTURE CPT-4: 69475 03/18/2012 RML ASSAY OF FREE THYROXINE CPT-4: 74332 03/18/2012 RML ASSAY THYROID STIM HORMONE CPT-4: 25752 2 RML COMPREHEN METABOLIC PANEL CPT-4: 40602 03/18/2012 RML COMPLETE CBC W/AUTO DIFF WBC CPT-4: 30457 012 RML LIPID PANEL CPT-4: 20785 03/18/2012 CERUM REMOVAL CPT-4: 08235 2012 OCCULT BLOOD FECES CPT-4: 40663 09/27/2011 CA SCREEN;PELVIC/BREAST EXAM CPT-4: G0101 09/27/2011 OBTAINING SCREEN PAP SMEAR CPT-4: Q0091 09/27/2011 CUR TOBACCO NON-USER CPT-4: G8457 09/13/2011 PRESCRIP TRANSMIT VIA ERX SY CPT-4: G8553 09/13/2011 PRESCRIP TRANSMIT VIA ERX SY CPT-4: G8553 08/07/2011 ROUTINE VENIPUNCTURE CPT-4: 34773 07/13/2011 RML ASSAY OF FREE THYROXINE CPT-4: 65410 07/13/2011 RML ASSAY THYROID STIM HORMONE CPT-4: 12496 1 RML COMPREHEN METABOLIC PANEL CPT-4: 29205 07/13/2011 RML COMPLETE CBC W/AUTO DIFF WBC CPT-4: 03402 011 RML LIPID PANEL CPT-4: 46736 07/13/2011 ROUTINE VENIPUNCTURE CPT-4: 94489 03/13/2011 RML COMPREHEN METABOLIC PANEL CPT-4: 30597 03/13/2011 RML LIPID PANEL CPT-4: 44257 03/13/2011 RML ASSAY THYROID STIM HORMONE CPT-4: 96679 1 RML ASSAY OF FREE THYROXINE CPT-4: 08865 03/13/2011 PRESCRIP TRANSMIT VIA ERX SY CPT-4: G8553 01/04/2011 ROUTINE VENIPUNCTURE CPT-4: 47759 12/16/2010 RML LIPID PANEL CPT-4: 37870 12/16/2010 RML COMPLETE CBC W/AUTO DIFF WBC CPT-4: 35456 011 RML COMPREHEN METABOLIC PANEL CPT-4: 35757 12/16/2010 RML ASSAY OF FREE THYROXINE CPT-4: 95018 12/16/2010 RML ASSAY THYROID STIM HORMONE CPT-4: 72339 1 INJ TRIGGER POINT / MUSCL CPT-4: 56540 02/14/2010 TRIAMCINOLONE ACET INJ NOS CPT-4: J3301 02/14/2010 METHYLPREDNISOLONE 40 MG INJ CPT-4: J1030 02/14/2010 THER/PROPH/DIAG INJ SC/IM CPT-4: 50033 02/07/2010 KETOROLAC TROMETHAMINE INJ CPT-4: J1885 02/07/2010 ROUTINE VENIPUNCTURE CPT-4: 58158 12/22/2009 Vital Signs Date Vital 08/07/2022 Blood Pressure 1: 134/86 Code: 8480-6 BMI: 25.8 Code: 33156-5 Heart Rate 1: 120 bpm Height: 5'10" Code: 8302-2 Respiratory Rate: 20 bpm SpO2: 97% Temperature: 36.2 (C) / 97.1 (F) Weight: 180 lbs Code: 31385-0 08/02/2022 Blood Pressure 1: 141/102 Code: 8480-6 BMI: 26.4 Code: 05910-7 Heart Rate 1: 91 bpm Height: 5'10" Code: 8302-2 SpO2: 98% Temperature: 36.2 (C) / 97.1 (F) Weight: 184 lbs Code: 60623-2 06/26/2022 Blood Pressure 1: 132/78 Code: 8480-6 BMI: 25.5 Code: 05924-2 Heart Rate 1: 96 bpm Height: 5'10" Code: 8302-2 SpO2: 98% Temperature: 36.2 (C) / 97.2 (F) Weight: 178 lbs Code: 96138-1 05/22/2022 Blood Pressure 1: 126/82 Code: 8480-6 BMI: 25.5 Code: 85368-9 Heart Rate 1: 104 bpm Height: 5'10" Code: 8302-2 Respiratory Rate: 20 bpm SpO2: 96% Temperature: 36.8 (C) / 98.2 (F) Weight: 178 lbs Code: 99430-7 02/27/2022 Blood Pressure 1: 142/82 Code: 8480-6 BMI: 25.5 Code: 83976-7 Heart Rate 1: 112 bpm Height: 5'10" Code: 8302-2 Respiratory Rate: 20 bpm SpO2: 96% Temperature: 36.8 (C) / 98.3 (F) Weight: 178 lbs Code: 06338-6 11/23/2021 Blood Pressure 1: 136/82 Code: 8480-6 BMI: 25.7 Code: 11560-6 Heart Rate 1: 72 bpm Height: 5'10" Code: 8302-2 Respiratory Rate: 20 bpm SpO2: 98% Temperature: 36.6 (C) / 97.9 (F) Weight: 179 lbs Code: 08384-5 10/12/2021 Blood Pressure 1: 128/92 Code: 8480-6 BMI: 25.5 Code: 08864-9 Heart Rate 1: 68 bpm Height: 5'10" Code: 8302-2 Respiratory Rate: 20 bpm SpO2: 98% Temperature: 36.7 (C) / 98.1 (F) Weight: 178 lbs Code: 85165-4 08/09/2021 Blood Pressure 1: 127/80 Code: 8480-6 Heart Rate 1: 69 bpm Respiratory Rate: 15 bpm SpO2: 98% Temperature: 36.7 (C) / 98.0 (F) We ight: 171 lbs Code: 20107-2 07/28/2021 Blood Pressure 1: 132/78 Code: 8480-6 Heart Rate 1: 76 bpm Respiratory Rate: 20 bpm SpO2: 96% Temperature: 36.8 (C) / 98.2 (F) We ight: 174 lbs Code: 18643-1 05/12/2021 Blood Pressure 1: 142/80 Code: 8480-6 Heart Rate 1: 76 bpm Respiratory Rate: 20 bpm SpO2: 96% Temperature: 36.8 (C) / 98.2 (F) We ight: 173 lbs Code: 65175-9 03/08/2021 Blood Pressure 1: 124/80 Code: 8480-6 Heart Rate 1: 88 bpm Respiratory Rate: 20 bpm SpO2: 98% Temperature: 36.8 (C) / 98.3 (F) We ight: 175 lbs Code: 18031-4 02/03/2021 Blood Pressure 1: 144/84 Code: 8480-6 Heart Rate 1: 68 bpm Respiratory Rate: 20 bpm SpO2: 97% Temperature: 36.7 (C) / 98.1 (F) We ight: 182 lbs Code: 42533-3 01/04/2021 Blood Pressure 1: 152/86 Code: 8480-6 Heart Rate 1: 72 bpm Respiratory Rate: 20 bpm SpO2: 97% Temperature: 36.6 (C) / 97.8 (F) We ight: 182 lbs Code: 47193-3 10/05/2020 Blood Pressure 1: 124/66 Code: 8480-6 He art Rate 1: 65 bpm 09/20/2020 Blood Pressure 1: 134/76 Code: 8480-6 Heart Rate 1: 60 bpm Respiratory Rate: 20 bpm SpO2: 97% Temperature: 36.1 (C) / 97.0 (F) We ight: 187 lbs Code: 85244-0 05/28/2020 Temperature: 36.8 (C) / 98.3 (F) 05/19/2020 Blood Pressure 1: 128/78 Code: 8480-6 Heart Rate 1: 50 bpm Respiratory Rate: 20 bpm SpO2: 98% Temperature: 36.5 (C) / 97.7 (F) 05/11/2020 Blood Pressure 1: 126/80 Code: 8480-6 BMI: 25.4 Code: 92036-4 Heart Rate 1: 60 bpm Height: 5'10" Code: 8302-2 Respiratory Rate: 20 bpm Temperat ure: 36.6 (C) / 97.8 (F) Weight: 177 lbs Code: 58958-4 05/05/2020 Blood Pressure 1: 122/78 Code: 8480-6 [...] 1: 104/66 Code: 8480-6 BMI: 25.4 Code: 90184-0 Heart Rate 1: 56 bpm Height: 5'10" Code: 8302-2 Respiratory Rate: 20 bpm SpO2: 97% Temperature: 36.6 (C) / 97.8 (F) Weight: 177 lbs Code: 46595-1 10/29/2019 Blood Pressure 1: 114/62 Code: 8480-6 Heart Rate 1: 68 bpm Respiratory Rate: 20 bpm SpO2: 99% Temperature: 36.8 (C) / 98.2 (F) 10/20/2019 Blood Pressure 1: 119/74 Code: 8480-6 Heart Rate 1: 57 bpm Respiratory Rate: 16 bpm SpO2: 99% Temperature: 36.9 (C) / 98.4 (F) We ight: 176 lbs Code: 13396-3 07/07/2019 Blood Pressure 1: 126/74 Code: 8480-6 Heart Rate 1: 72 bpm Respiratory Rate: 16 bpm SpO2: 95% Temperature: 36.8 (C) / 98.2 (F) We ight: 179 lbs Code: 36432-1 05/01/2019 Blood Pressure 1: 126/76 Code: 8480-6 Heart Rate 1: 60 bpm Respiratory Rate: 20 bpm SpO2: 97% Temperature: 36.8 (C) / 98.2 (F) 04/15/2019 Blood Pressure 1: 154/94 Code: 8480-6 BMI: 26.0 Code: 81849-1 Heart Rate 1: 60 bpm Height: 5'10" Code: 8302-2 Respiratory Rate: 18 bpm SpO2: 97% Temperature: 36.6 (C) / 97.9 (F) Weight: 181 lbs Code: 75843-2 11/26/2018 Blood Pressure 1: 142/80 Code: 8480-6 BMI: 26.3 Code: 84359-5 Heart Rate 1: 56 bpm Height: 5'10" Code: 8302-2 Respiratory Rate: 20 bpm SpO2: 97% Temperature: 36.9 (C) / 98.4 (F) Weight: 183 lbs Code: 00552-8 08/08/2018 Blood Pressure 1: 126/68 Code: 8480-6 Heart Rate 1: 76 bpm Height: 5'10" Code: 8302-2 Respiratory Rate: 20 bpm SpO2: 97% Temperature: 36 .7 (C) / 98.0 (F) Weight: Code: 15917-7 06/25/2018 Blood Pressure 1: 112/70 Code: 8480-6 BMI: 25.8 Code: 52548-7 Heart Rate 1: 64 bpm Height: 5'10" Code: 8302-2 Respiratory Rate: 20 bpm SpO2: 95% Temperature: 36.9 (C) / 98.4 (F) Weight: 180 lbs Code: 17171-9 05/20/2018 Blood Pressure 1: 132/100 Code: 8480-6 H eart Rate 1: 76 bpm 05/10/2018 Blood Pressure 1: 144/86 Code: 8480-6 Heart Rate 1: 60 bpm Respiratory Rate: 20 bpm SpO2: 97% Temperature: 36.9 (C) / 98.4 (F) We ight: Code: 81173-4 05/03/2018 Blood Pressure 1: 126/92 Code: 8480-6 Bl ood Pressure 2: 147/79 Code: 8480-6 Heart Rate 1: 64 bpm Height: 5'10" Code: 8302-2 Respiratory Rate : 22 bpm SpO2: 98% Temperature: 36.3 (C) / 97.3 (F) Weight: Code: 70733- 7 04/22/2018 Blood Pressure 1: 140/82 Code: 8480-6 BMI: 26.3 Code: 14358-1 Heart Rate 1: 60 bpm Height: 5'10" Code: 8302-2 Respiratory Rate: 20 bpm SpO2: 95% Temperature: 36.8 (C) / 98.2 (F) Weight: 183 lbs Code: 02199-4 03/05/2018 Blood Pressure 1: 122/64 Code: 8480-6 BMI: 25.7 Code: 32648-9 Heart Rate 1: 82 bpm Height: 5'10" Code: 8302-2 Respiratory Rate: 22 bpm SpO2: 96% Temperature: 36.4 (C) / 97.6 (F) Weight: 179 lbs Code: 92129-7 02/19/2018 Blood Pressure 1: 120/84 Code: 8480-6 Heart Rate 1: 68 bpm SpO2: 96% Temperature: 36.2 (C) / 97.2 (F) Weight: Code: 19981-1 02/13/2018 Blood Pressure 1: 138/90 Cod e: 8480-6 10/18/2017 Blood Pressure 1: 122/78 Code: 8480-6 BMI: 26.5 Code: 29674-7 Heart Rate 1: 72 bpm Height: 5'10" Code: 8302-2 Respiratory Rate: 20 bpm Temperat ure: 36.7 (C) / 98.0 (F) Weight: 185 lbs Code: 30862-6 07/24/2017 Blood Pressure 1: 118/68 Code: 8480-6 Heart Rate 1: 82 bpm Height: 5'10" Code: 8302-2 Respiratory Rate: 20 bpm SpO2: 92% Temperature: 36 .4 (C) / 97.6 (F) Weight: Code: 18693-9 06/14/2017 Blood Pressure 1: 156/98 Code: 8480-6 Heart Rate 1: 84 bpm Height: 5'10" Code: 8302-2 Respiratory Rate: 20 bpm SpO2: 96% Temperature: 36 .9 (C) / 98.5 (F) Weight: Code: 30114-5 06/01/2017 Blood Pressure 1: 122/82 Code: 8480-6 Heart Rate 1: 68 bpm Height: 5'10" Code: 8302-2 Respiratory Rate: 20 bpm Temperature: 36.8 (C) / 98.2 (F) 03/30/2017 Blood Pressure 1: 124/78 Code: 8480-6 Heart Rate 1: 88 bpm Height: 5'10" Code: 8302-2 Respiratory Rate: 20 bpm SpO2: 96% Temperature: 36 .9 (C) / 98.4 (F) Weight: Code: 14588-5 01/17/2017 Blood Pressure 1: 126/74 Code: 8480-6 Heart Rate 1: 72 bpm Height: 5'10" Code: 8302-2 Respiratory Rate: 20 bpm SpO2: 96% Temperature: 37 .0 (C) / 98.6 (F) Weight: Code: 57059-0 12/18/2016 Blood Pressure 1: 128/86 Code: 8480-6 BMI: 24.7 Code: 40005-4 Heart Rate 1: 76 bpm Height: 5'10" Code: 8302-2 Respiratory Rate: 20 bpm SpO2: 96% Temperature: 36.8 (C) / 98.3 (F) Weight: 172 lbs Code: 56586-4 11/02/2016 Blood Pressure 1: 128/80 Code: 8480-6 BMI: 24.7 Code: 32243-3 Heart Rate 1: 72 bpm Height: 5'10" Code: 8302-2 Respiratory Rate: 20 bpm SpO2: 94% Temperature: 36.9 (C) / 98.4 (F) Weight: 172 lbs Code: 65052-4 10/24/2016 Blood Pressure 1: 120/78 Code: 8480-6 BMI: 24.7 Code: 34681-2 Heart Rate 1: 88 bpm Height: 5'10" Code: 8302-2 Respiratory Rate: 18 bpm SpO2: 96% Temperature: 36.5 (C) / 97.7 (F) Weight: 172 lbs Code: 15344-6 02/07/2016 Heart Rate 1: 76 bpm Respiratory Rate: 22 bpm SpO2: 96 % Temperature: 36.4 (C) / 97.6 (F) Weight: Code: 93509-1 05/26/2015 Blood Pressure 1: 124/70 Code: 8480-6 BMI: 25.1 Code: 29106-6 Heart Rate 1: 84 bpm Height: 5'10" Code: 8302-2 Respiratory Rate: 20 bpm Temperat ure: 36.7 (C) / 98.1 (F) Weight: 175 lbs Code: 70183-6 11/30/2014 Blood Pressure 1: 142/94 Code: 8480-6 BMI: 25.1 Code: 45557-4 Heart Rate 1: 80 bpm Height: 5'10" Code: 8302-2 Respiratory Rate: 20 bpm Temperat ure: 36.9 (C) / 98.5 (F) Weight: 175 lbs Code: 97663-4 07/23/2014 Blood Pressure 1: 138/86 Code: 8480-6 BMI: 25.0 Code: 46458-7 Heart Rate 1: 80 bpm Height: 5'10" Code: 8302-2 Respiratory Rate: 20 bpm Temperat ure: 36.4 (C) / 97.6 (F) Weight: 174 lbs Code: 61335-5 03/09/2014 Blood Pressure 1: 122/78 Code: 8480-6 BMI: 25.0 Code: 32762-6 Heart Rate 1: 78 bpm Height: 5'10" Code: 8302-2 Respiratory Rate: 24 bpm Temperat ure: 36.4 (C) / 97.6 (F) Weight: 174 lbs Code: 19363-6 02/05/2014 Blood Pressure 1: 132/80 Code: 8480-6 BMI: 25.0 Code: 34100-2 Heart Rate 1: 84 bpm Height: 5'10" Code: 8302-2 Respiratory Rate: 20 bpm Temperat ure: 36.6 (C) / 97.9 (F) Weight: 174 lbs Code: 09118-6 05/12/2013 Blood Pressure 1: 138/94 Code: 8480-6 BMI: 25.1 Code: 17358-1 Heart Rate 1: 92 bpm Height: 5'10" Code: 8302-2 Respiratory Rate: 20 bpm Temperat ure: 36.7 (C) / 98.1 (F) Weight: 175 lbs Code: 14287-6 04/07/2013 Blood Pressure 1: 136/72 Code: 8480-6 BMI: 25.1 Code: 30284-0 Heart Rate 1: 76 bpm Height: 5'10" Code: 8302-2 Respiratory Rate: 20 bpm Temperat ure: 36.7 (C) / 98.0 (F) Weight: 175 lbs Code: 60924-8 03/31/2013 Blood Pressure 1: 132/94 Code: 8480-6 BMI: 25.1 Code: 56956-8 Heart Rate 1: 76 bpm Height: 5'10" Code: 8302-2 Respiratory Rate: 20 bpm Temperat ure: 36.7 (C) / 98.0 (F) Weight: 175 lbs Code: 57858-6 10/09/2012 Blood Pressure 1: 132/80 Code: 8480-6 BMI: 24.8 Code: 45102-4 Heart Rate 1: 88 bpm Height: 5'10" Code: 8302-2 Temperature: 36.8 (C) / 98.3 (F) Weight: 173 lbs Code: 73474-4 03/28/2012 Blood Pressure 1: 126/82 Code: 8480-6 BMI: 24.7 Code: 41766-2 Heart Rate 1: 72 bpm Height: 5'10" Code: 8302-2 Respiratory Rate: 20 bpm Temperat ure: 36.6 (C) / 97.8 (F) Weight: 172 lbs Code: 34758-9 2012 Blood Pressure 1: 130/72 Code: 8480-6 Heart Rate 1: 80 bpm Height: Code: 8302-2 Temperature: 36.5 (C) / 97.7 (F) Weight: Code: 81948- 7 09/27/2011 Blood Pressure 1: 116/78 Code: 8480-6 BMI: 24.4 Code: 98347-8 Heart Rate 1: 76 bpm Height: 5'10" Code: 8302-2 Respiratory Rate: 20 bpm Temperat ure: 36.9 (C) / 98.4 (F) Weight: 170 lbs Code: 89643-6 09/13/2011 Blood Pressure 1: 124/82 Code: 8480-6 BMI: 24.4 Code: 41832-6 Heart Rate 1: 72 bpm Height: 5'10" Code: 8302-2 Respiratory Rate: 20 bpm Temperat ure: 36.4 (C) / 97.6 (F) Weight: 170 lbs Code: 00343-1 08/07/2011 Blood Pressure 1: 110/74 Code: 8480-6 BMI: 23.2 Code: 06155-9 Heart Rate 1: 60 bpm Height: 5'11" Code: 8302-2 Temperature: 36.4 (C) / 97.5 (F) Weight: 166 lbs Code: 18161-7 02/06/2011 Blood Pressure 1: 96/58 Code : 8480-6 01/20/2011 Blood Pressure 1: 112/78 Cod e: 8480-6 01/12/2011 Blood Pressure 1: 110/48 Code: 8480-6 He art Rate 1: 84 bpm 01/04/2011 Blood Pressure 1: 126/80 Code: 8480-6 Heart Rate 1: 76 bpm Temperature: 36.9 (C) / 98.4 (F) Weight: 168 lbs Code: 02372-2 02/14/2010 Blood Pressure 1: 134/82 Code: 8480-6 Heart Rate 1: 88 bpm Temperature: 36.6 (C) / 97.9 (F) 02/07/2010 Blood Pressure 1: 130/80 Code: 8480-6 BMI: 23.4 Code: 56235-4 Heart Rate 1: 84 bpm Height: 5'10" Code: 8302-2 Temperature: 36.4 (C) / 97.6 (F) Weight: 163 lbs Code: 63943-2 Functional Status No Functional Status data Reason [...] knee pain 05/12/2013 On the right side, t wisted 3 weeks ago, pain and swelling follow [...] Encounter Performer Location Location Address Codes Date () OFFICE/OUTPATIENT VISIT EST Diagnosis: Hospital discharge follow-up[ICD10: Z09] Diagnosis: Right rib fracture[ICD10: S22.31XA] Diagnosis: Right humeral fracture[ICD10: S42.301A] Patricia DAVID [employer] [address] [place] [address] CPT-4: 51114 08/07/2022 ([id number]) OFFICE/OUTPATIENT VISIT EST Diagnosis: Atrial fibrillation and flutter[ICD10: I48.91] Diagnosis: Essential (primary) hypertension[ICD10: I10] Diagnosis: Stress[ICD10: F43.9] Diagnosis: Cough[ICD10: R05.9] Yvette DAVID [address] [address] CPT-4: 47447 08/02/20 22 ([id number]) OFFICE/OUTPATIENT VISIT EST Diagnosis: Atrial fibrillation and flutter[ICD10: I48.91] Yvette DAVID DO [address] [address] CPT- 4: 65222 06/26/2022 ([id number]) OFFICE/OUTPATIENT VISIT EST Diagnosis: Chronic atrial fibrillation[ICD10: I48.20] Diagnosis: Essential hypertension[ICD10: I10] Diagnosis: Skin cancer of arm[ICD10: C44.601] Diagnosis: Mild chronic obstructive pulmonary disease[ICD10: J44.9] Yvette DAVID [address] [address] CPT-4: 07751 05/22/2022 ([id number]) NURSE/OUTPATIENT VISIT EST Diagnosis: Atrial fibrillation and flutter[ICD10: I48.91] Diagnosis: Hypothyroidism[ICD10: E03.9] Diagnosis: Mixed hyperlipidemia[ICD10: E78.2] Diagnosis: Anemia, unspecified[ICD10: D64.9] Diagnosis: Essential (primary) hypertension[ICD10: I10] Diagnosis: Hyperglycemia, unspecified[ICD10: R73.9] Yvette DAVID [address] [address] CPT- 4: 76969 02/28/2022 ([id number]) OFFICE/OUTPATIENT VISIT EST Diagnosis: Atypical nevus of right forearm[ICD10: D22.61] Diagnosis: Unspecified atrial flutter[ICD10: I48.92] Diagnosis: Atrial fibrillation and flutter[ICD10: I48.91] Yvette DAVID DO [address] [address] CPT- 4: 40703 02/27/2022 ([id number]) OFFICE/OUTPATIENT VISIT EST Diagnosis: Anxiety[ICD10: F41.9] Yvette DAVID [address] [address] CPT-4: 43365 11/23/2021 ([id number]) OFFICE/OUTPATIENT VISIT EST Diagnosis: Anxiety[ICD10: F41.9] Diagnosis: Stress reaction[ICD10: F43.0] Yvette DAVID [address] [address] CPT-4: 68079 10/12/2021 ([id number]) OFFICE/OUTPATIENT VISIT EST Diagnosis: Contact with and (suspected) exposure to covid-19[ICD10: Z20.822] Diagnosis: Nasopharyngitis[ICD10: J00] Diagnosis: Acute foreign body of left ear canal, initial encounter[ICD10: T16.2XXA] Diagnosis: Acute foreign body of right ear canal[ICD10: T16.1XXA] Martina Jessica YVETTE DAVID [address] [address] CPT-4: 74909 08/09/2021 ([id number]) OFFICE/OUTPATIENT VISIT EST Diagnosis: Essential (primary) hypertension[ICD10: I10] Diagnosis: Hypothyroidism[ICD10: E03.9] Diagnosis: Paroxysmal atrial fibrillation[ICD10: I48.0] Diagnosis: Hyperglycemia, unspecified[ICD10: R73.9] Yvette DAVID [address] [address] CPT- 4: 71997 07/28/2021 ([id number]) NURSE/OUTPATIENT VISIT EST Diagnosis: Mixed hyperlipidemia[ICD10: E78.2] Diagnosis: Anemia, unspecified[ICD10: D64.9] Diagnosis: Essential (primary) hypertension[ICD10: I10] Diagnosis: Hypothyroidism, unspecified[ICD10: E03.9] Diagnosis: Hyperglycemia, unspecified[ICD10: R73.9] Yvette DAVID [address] [address] CPT- 4: 45011 07/20/2021 ([id number]) OFFICE/OUTPATIENT VISIT EST Diagnosis: Grieving[ICD10: F43.21] Diagnosis: Inflamed seborrheic keratosis[ICD10: L82.0] Yvette DAVID DO [address] [address] CPT- 4: 27098 05/12/2021 ([id number]) OFFICE/OUTPATIENT VISIT EST Diagnosis: Rhus dermatitis[ICD10: L25.5] Yvette DAVID [address] [address] CPT-4: 05469 03/08/2021 ([id number]) OFFICE/OUTPATIENT VISIT EST Diagnosis: Essential hypertension[ICD10: I10] Diagnosis: Chronic atrial fibrillation[ICD10: I48.20] Diagnosis: Mixed hyperlipidemia[ICD10: E78.2] Diagnosis: Hyperglycemia, unspecified[ICD10: R73.9] Diagnosis: Depression[ICD10: F32.9] Yvette LUNDY [address] [address] CPT-4: 91569 02/03/2021 ([id number]) NURSE/OUTPATIENT VISIT EST Diagnosis: Hyperglycemia, unspecified[ICD10: R73.9] Diagnosis: Mixed hyperlipidemia[ICD10: E78.2] Diagnosis: Essential (primary) hypertension[ICD10: I10] Diagnosis: Hypothyroidism, unspecified[ICD10: E03.9] Yvette DAVID DO [address] [address] CPT- 4: 98955 01/31/2021 ([id number]) OFFICE/OUTPATIENT VISIT EST Diagnosis: Vertigo[ICD10: R42] Diagnosis: Chronic atrial fibrillation[ICD10: I48.20] Diagnosis: Cerumen impaction[ICD10: H61.20] Diagnosis: Depression[ICD10: F32.9] Yvette CHAIREZ [address] [address] CPT-4: 27698 01/04/2021 ([id number]) NURSE/OUTPATIENT VISIT EST Diagnosis: Essential hypertension[ICD10: I10] Yvette DAVID DO [address] [address] CPT-4: 61496 10/05/2020 ([id number]) OFFICE/OUTPATIENT VISIT EST Diagnosis: Chronic atrial fibrillation[ICD10: I48.20] Diagnosis: Dizziness[ICD10: R42] Yvette DAVID DO [address] [address] CPT-4: 93361 09/20/2020 ([id number]) NURSE/OUTPATIENT VISIT EST Diagnosis: Dysplastic nevus of right lower extremity[ICD10: D23.71] Yvette DAVID DO [address] [address] CPT-4: 10423 05/28/2020 ([id number]) NURSE/OUTPATIENT VISIT EST Diagnosis: Essential (primary) hypertension[ICD10: I10] Diagnosis: Type 2 diabetes mellitus with hyperglycemia[ICD10: E11.65] Diagnosis: Anemia, unspecified[ICD10: D64.9] Diagnosis: Hypothyroidism, unspecified[ICD10: E03.9] Yvette DAVID DO [address] [address] CPT- 4: 86449 05/05/2020 ([id number]) OFFICE/OUTPATIENT VISIT EST Diagnosis: 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] Diagnosis: Paroxysmal atrial fibrillation[ICD10: I48.0] Yvette DAVID DO [address] [address] CPT- 4: 85996 02/11/2020 ([id number]) OFFICE/OUTPATIENT VISIT EST Diagnosis: Dermatitis[ICD10: L30.9] Diagnosis: 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] Diagnosis: Chronic pruritus[ICD10: L29.9] Yvette DAVID DO [address] [address] CPT-4: 65818 01/28/2020 ([id number]) OFFICE/OUTPATIENT VISIT EST Diagnosis: Diarrhea, unspecified[ICD10: R19.7] Diagnosis: Dizziness[ICD10: R42] Diagnosis: Generalized pruritus[ICD10: L29.9] Yvette COREA S. ORENDER DO [address] [address] CPT-4: 81704 01/05/2020 ([id number]) NURSE/OUTPATIENT VISIT EST Diagnosis: Renal insufficiency[ICD10: N28.9] Yvette Shahid S. ORENDER DO [address] [address] CPT-4: 44387 12/05/2019 ([id number]) NURSE/OUTPATIENT VISIT EST Diagnosis: Renal insufficiency[ICD10: N28.9] Diagnosis: Dehydration[ICD10: E86.0] Yvette STUART CristiGarrett ORE NDER DO [address] [address] CPT-4: 80617 11/05/2019 ([id number]) OFFICE/OUTPATIENT VISIT EST Diagnosis: Chronic atrial fibrillation[ICD10: I48.20] Diagnosis: Renal insufficiency[ICD10: N28.9] Diagnosis: Dizziness and giddiness[ICD10: R42] Yvette COLEMAN S. ORENDER DO [address] [address] CPT-4: 27706 10/29/2019 ([id number]) NURSE/OUTPATIENT VISIT EST Diagnosis: Hematuria, unspecified[ICD10: R31.9] Yvette MENA S. ORENDER DO [address] [address] CPT-4: 09573 10/23/2019 ([id number]) NURSE/OUTPATIENT VISIT EST Diagnosis: Encounter for general adult medical examination without abnormal findings[ICD10: Z00.00] Diagnosis: Essential (primary) hypertension[ICD10: I10] Diagnosis: Hypothyroidism, unspecified[ICD10: E03.9] Diagnosis: Mixed hyperlipidemia[ICD10: E78.2] Yvette COREA CristiGarrett ORENDER [address] [address] CPT-4: 52937 10/21/2019 ([id number]) OFFICE/OUTPATIENT VISIT EST Diagnosis: Cerumen impaction[ICD10: H61.20] Diagnosis: Dizziness[ICD10: R42] Diagnosis: Gastritis[ICD10: K29.70] Diagnosis: Dehydration[ICD10: E86.0] Natalee SULLIVAN [address] [address] CPT-4: 47748 10/20/2019 ([id number]) OFFICE/OUTPATIENT VISIT EST Diagnosis: Paroxysmal atrial fibrillation[ICD10: I48.0] Diagnosis: Essential hypertension[ICD10: I10] Yvette DAVID DO [address] [address] CPT-4: 31776 07/07/2019 ([id number]) OFFICE/OUTPATIENT VISIT EST Diagnosis: Essential (primary) hypertension[ICD10: I10] Yvette DAVID DO [address] [address] CPT- 4: 16349 05/01/2019 ([id number]) OFFICE/OUTPATIENT VISIT EST Diagnosis: Essential (primary) hypertension[ICD10: I10] Diagnosis: Localized edema[ICD10: R60.0] Yvette DAVID DO [address] [address] CPT-4: 72926 04/15/2019 ([id number]) NURSE/OUTPATIENT VISIT EST Diagnosis: Essential (primary) hypertension[ICD10: I10] Diagnosis: Hypothyroidism, unspecified[ICD10: E03.9] Diagnosis: Mixed hyperlipidemia[ICD10: E78.2] Yvette BUSTOSNDER [address] [address] CPT-4: 16312 04/04/2019 ([id number]) NURSE/OUTPATIENT VISIT EST Diagnosis: Essential (primary) hypertension[ICD10: I10] Diagnosis: Hyperglycemia, unspecified[ICD10: R73.9] Diagnosis: Hypothyroidism, unspecified[ICD10: E03.9] Diagnosis: Mixed hyperlipidemia[ICD10: E78.2] Yvette DAVID [address] [address] CPT-4: 69567 10/07/2018 ([id number]) OFFICE/OUTPATIENT VISIT EST Diagnosis: Essential (primary) hypertension[ICD10: I10] Diagnosis: Presence of right artificial knee joint[ICD10: Z96.651] Diagnosis: Unspecified hearing loss, left ear[ICD10: H91.92] Yvette DAVID [address] [address] CPT- 4: 56923 08/08/2018 OFFICE/OUTPATIENT VISIT EST Diagnosis: Impacted cerumen, bilateral[ICD10: H61.23] Diagnosis: Vertigo of central origin, bilateral[ICD10: H81.43] Diagnosis: Essential (primary) hypertension[ICD10: I10] Diagnosis: Paroxysmal atrial fibrillation[ICD10: I48.0] Diagnosis: Dizziness and giddiness[ICD10: R42] Diagnosis: Sudden idiopathic hearing loss, left ear[ICD10: H91.22] Yvette DAVID [address] [address] CPT-4: 21442 06/25/2018 ([id number]) OFFICE/OUTPATIENT VISIT EST Diagnosis: Essential (primary) hypertension[ICD10: I10] Diagnosis: Vertigo of central origin, bilateral[ICD10: H81.43] Yvette DAVID [address] [address] CPT-4: 56495 05/10/2018 ([id number]) OFFICE/OUTPATIENT VISIT EST Diagnosis: Allergic rhinitis due to pollen[ICD10: J30.1] Diagnosis: Dizziness and giddiness[ICD10: R42] Diagnosis: Vertigo of central origin, bilateral[ICD10: H81.43] Diagnosis: Essential (primary) hypertension[ICD10: I10] Yvette DAVID DO [address] [address] CPT- 4: 24105 05/03/2018 OFFICE/OUTPATIENT VISIT EST Diagnosis: Hypothyroidism, unspecified[ICD10: E03.9] Diagnosis: Mixed hyperlipidemia[ICD10: E78.2] Diagnosis: Essential (primary) hypertension[ICD10: I10] Diagnosis: Paroxysmal atrial fibrillation[ICD10: I48.0] Diagnosis: Obstructive sleep apnea (adult) (pediatric)[ICD10: G47.33] Diagnosis: Unilateral primary osteoarthritis, right knee[ICD10: M17.11] Yvette DAVID DO [address] [address] CPT-4: 30187 04/22/2018 ([id number]) OFFICE/OUTPATIENT VISIT EST Diagnosis: Zoster without complications[ICD10: B02.9] Natalee DAVID DO [address] [address] CPT- 4: 06651 03/05/2018 ([id number]) NURSE/OUTPATIENT VISIT EST Diagnosis: Hypothyroidism, unspecified[ICD10: E03.9] Diagnosis: Mixed hyperlipidemia[ICD10: E78.2] Diagnosis: Essential (primary) hypertension[ICD10: I10] Diagnosis: Paroxysmal atrial fibrillation[ICD10: I48.0] Yvette DAVID DO [address] [address] CPT- 4: 33511 02/13/2018 ([id number]) OFFICE/OUTPATIENT VISIT EST Diagnosis: Obstructive sleep apnea (adult) (pediatric)[ICD10: G47.33] Diagnosis: Essential (primary) hypertension[ICD10: I10] Diagnosis: Paroxysmal atrial fibrillation[ICD10: I48.0] Yvette DAVID DO [address] [address] CPT- 4: 11108 10/18/2017 ([id number]) OFFICE/OUTPATIENT VISIT EST Diagnosis: Hypothyroidism, unspecified[ICD10: E03.9] Diagnosis: Other vitamin B12 deficiency anemias[ICD10: D51.8] Diagnosis: Essential (primary) hypertension[ICD10: I10] Diagnosis: Mixed hyperlipidemia[ICD10: E78.2] Yvette SIMMS NAHOMY DAVID DO [employer] [address] [place] [address] CPT-4: 34799 10/15/2017 OFFICE/OUTPATIENT VISIT EST Diagnosis: Impacted cerumen, bilateral[ICD10: H61.23] Diagnosis: Acute sinusitis, unspecified[ICD10: J01.90] Natalee DAVID KODA [address] [address] CPT- 4: 53728 07/24/2017 ([id number]) OFFICE/OUTPATIENT VISIT EST Diagnosis: Obstructive sleep apnea (adult) (pediatric)[ICD10: G47.33] Diagnosis: Tachycardia, unspecified[ICD10: R00.0] Yvette QUINONES Michael [address]AY[address] [address] CPT-4: 14349 06/14/2017 ([id number]) OFFICE/OUTPATIENT VISIT EST Diagnosis: Zoster without complications[ICD10: B02.9] Demi Rocha YVETTE DAVID [address] [address] CPT- 4: 63241 06/01/2017 ([id number]) OFFICE/OUTPATIENT VISIT EST Diagnosis: Essential (primary) hypertension[ICD10: I10] Diagnosis: Tachycardia, unspecified[ICD10: R00.0] Diagnosis: Other vitamin B12 deficiency anemias[ICD10: D51.8] Yvettelynnette David YVETTE Michael DAVID [employer] [address] [place] [address] CPT- 4: 21531 03/30/2017 ([id number]) OFFICE/OUTPATIENT VISIT EST Diagnosis: Essential (primary) hypertension[ICD10: I10] Diagnosis: Other fatigue[ICD10: R53.83] Diagnosis: Other chest pain[ICD10: R07.89] Diagnosis: Snoring[ICD10: R06.83] Yvette Vega [address] [address] CPT-4: 15222 01/17/2017 ([id number]) OFFICE/OUTPATIENT VISIT EST Diagnosis: Encounter for general adult medical examination without abnormal findings[ICD10: Z00.00] Diagnosis: Hypothyroidism, unspecified[ICD10: E03.9] Diagnosis: Essential (primary) hypertension[ICD10: I10] Diagnosis: Mixed hyperlipidemia[ICD10: E78.2] Diagnosis: Other residential (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[ICD10: Z79.899] Diagnosis: Hyperglycemia, unspecified[ICD10: R73.9] Yvette DAVID [address] [address] CPT- 4: 61476 12/11/2016 ([id number]) OFFICE/OUTPATIENT VISIT EST Diagnosis: URI, ACUTE[ICD10: J06.9] Diagnosis: Cough[ICD10: R05] Yvette MERCADOLINE CristiGarrett JOANN [address] [address] CPT-4: 82669 11/02/19 ([id number]) OFFICE/OUTPATIENT VISIT EST Diagnosis: Acute upper respiratory infection, unspecified[ICD10: J06.9] Elidia MERCADOLINE CristiGarrett JOANN [address] [address] CPT-4: 56476 10/24/2016 ([id number]) OFFICE/OUTPATIENT VISIT EST Diagnosis: Nausea[ICD10: R11.0] Diagnosis: Diarrhea, unspecified[ICD10: R19.7] Diagnosis: Dizziness and giddiness[ICD10: R42] Elidia DILLONBRUNA COLEMAN Michael DAVID [address] [address] CPT-4: 47993 02/07/2016 ([id number]) OFFICE/OUTPATIENT VISIT EST Diagnosis: HYPOTHYROIDISM[ICD9: 244.9] Diagnosis: HYPERLIPIDEMIA NEC/NOS[ICD9: 272.4] Diagnosis: ANEMIA NOS[ICD9: 285.9] Diagnosis: HYPERTENSION[ICD9: 401.9] Diagnosis: Neuropathy[ICD9: 355.9] Y[facility] [address] [place] [address] CPT-4: 94471 05/27/2015 ([id number]) OFFICE/OUTPATIENT VISIT EST Diagnosis: Neuropathy[ICD9: 355.9] Diagnosis: Foot pain[ICD9: 729.5] Diagnosis: HYPOTHYROIDISM[ICD9: 244.9] Diagnosis: PNEUMOCOCCAL VACCINE[ICD10: Z23] Yvette Rodriguez [facility] [address] [place] [address] CPT-4: 82917 05/26/2015 ([id number]) OFFICE/OUTPATIENT VISIT EST Diagnosis: Hematochezia[ICD9: 578.1] Yvette Rodriguez ORE NDER DO [address] [address] CPT-4: 71044 02/19/2015 ([id number]) OFFICE/OUTPATIENT VISIT EST Diagnosis: Hematochezia[ICD9: 578.1] Yvette Rodriguez [facility] [address] [place] [address] CPT-4: 99296 01/20/2015 ([id number]) OFFICE/OUTPATIENT VISIT EST Diagnosis: Hematochezia[ICD9: 578.1] Yvette Rodriguez ORE NDER DO [address] [address] CPT-4: 67639 12/15/2014 ([id number]) OFFICE/OUTPATIENT VISIT EST Diagnosis: TINEA PEDIS[ICD9: 110.4] Diagnosis: Ceruminosis[ICD9: 380.4] Earline Alexandra YVETTE BUSTOSN MIHAELA DO [address] [address] CPT-4: 08193 11/30/2014 ([id number]) OFFICE/OUTPATIENT VISIT EST Diagnosis: HYPERLIPIDEMIA NEC/NOS[ICD9: 272.4] Yvette WAYNE JARED Michael ORENDER DO [address] [address] CPT-4: 92525 11/26/2014 ([id number]) OFFICE/OUTPATIENT VISIT EST Diagnosis: HYPOTHYROIDISM[ICD9: 244.9] Diagnosis: HYPERLIPIDEMIA NEC/NOS[ICD9: 272.4] Diagnosis: ANEMIA NOS[ICD9: 285.9] Diagnosis: HYPERTENSION[ICD9: 401.9] Yvette SULLIVAN [address] [address] CPT-4: 39104 08/14/2014 ([id number]) OFFICE/OUTPATIENT VISIT EST Diagnosis: GERD[ICD9: 530.81] Diagnosis: COUGH[ICD10: R05] Yvette DAVID [address] [address] CPT-4: 27732 07/23/20 14 OFFICE/OUTPATIENT VISIT EST Diagnosis: Heel pain[ICD9: 729.5] Earline Alexandra YVETTE Vega [address] [address] CPT-4: 71600 03/09/2014 ([id number]) OFFICE/OUTPATIENT VISIT EST Diagnosis: HYPOTHYROIDISM[ICD9: 244.9] Diagnosis: HYPERLIPIDEMIA NEC/NOS[ICD9: 272.4] Diagnosis: Right medial knee pain[ICD9: 719.46] Yvette Kuncarlos eduardomaye DAVID [address] [address] CPT-4: 00516 02/05/2014 ([id number]) OFFICE/OUTPATIENT VISIT EST Diagnosis: HYPOTHYROIDISM[ICD9: 244.9] Diagnosis: HYPERLIPIDEMIA NEC/NOS[ICD9: 272.4] Diagnosis: HYPERTENSION[ICD9: 401.9] Diagnosis: ANEMIA NOS[ICD9: 285.9] Diagnosis: MALAISE AND FATIGUE[ICD9: 780.79] Yvette David DILAN Zehra DAVID DO [address] [address] CPT-4: 85558 02/04/2014 OFFICE/OUTPATIENT VISIT EST Diagnosis: Right medial knee pain[ICD9: 719.46] Diagnosis: Degeneration, intervertebral disc, lumbar[ICD9: 722.52] Diagnosis: Low back pain[ICD9: 724.2] Earline Alexandra Rodriguez LUISITO STEFAN [address] [address] CPT-4: 85749 05/12/2013 ([id number]) OFFICE/OUTPATIENT VISIT EST Diagnosis: Lumbar degenerative disc disease[ICD9: 722.52] Diagnosis: Bulging lumbar disc[ICD9: 722.10] Yvette Rodriguez JOANN BORJA [address] [address] CPT-4: 68984 04/07/2013 ([id number]) OFFICE/OUTPATIENT VISIT EST Diagnosis: PAIN, LOWER BACK[ICD9: 724.2] Diagnosis: SPASM OF MUSCLE[ICD9: 728.85] Diagnosis: Lumbar degenerative disc disease[ICD9: 722.52] Yvette Rodriguez JOANN [address] [address] CPT- 4: 33095 03/31/2013 ([id number]) OFFICE/OUTPATIENT VISIT EST Diagnosis: Greater trochanteric bursitis[ICD9: 726.5] Diagnosis: DYSPEPSIA[ICD9: 536.8] Yvette Rodriguez WARNER Vega [address] [address] CPT-4: 60464 10/09/2012 OFFICE/OUTPATIENT VISIT EST Diagnosis: CYSTOCELE NOS[ICD9: 618.01] Diagnosis: GERD[ICD9: 530.81] Diagnosis: VAGINITIS[ICD9: 623.5] Yvette Rodriguez WARNER Vega DO [employer] [address] [place] [address] CPT-4: 22503 03/28/2012 ([id number]) OFFICE/OUTPATIENT VISIT EST Diagnosis: HYPOTHYROIDISM[ICD9: 244.9] Diagnosis: HYPERLIPIDEMIA NEC/NOS[ICD9: 272.4] Diagnosis: HYPERTENSION[ICD9: 401.9] Diagnosis: ANEMIA NOS[ICD9: 285.9] Yvette BUSTOSND ER DO [address] [address] CPT-4: 97010 03/18/2012 OFFICE/OUTPATIENT VISIT EST Diagnosis: CERUMEN IMPACTION[ICD9: 380.4] Diagnosis: OTALGIA[ICD9: 388.70] Reyna BUSTOSNDMAYE DO C [address] [place] [address] CPT-4: 68695 2012 OFFICE/OUTPATIENT VISIT EST Diagnosis: COUGH[ICD9: 786.2] Diagnosis: Cystocele[ICD9: 618.01] Diagnosis: VAGINITIS[ICD9: 623.5] Diagnosis: ROUTINE GYNE EXAM[ICD9: V72.31] Yvette DAVID DO [address] [address] CPT-4: 26094 09/27/2011 SPECIMEN HANDLING Diagnosis: [ICD9: ] Diagnosis: [ICD9: ] Diagnosis: [ICD9: ] Diagnosis: [ICD9: ] Yvette DAVID DO [address] [address] CPT-4: 46903 09/27/2011 OFFICE/OUTPATIENT VISIT EST Diagnosis: PHARYNGITIS, ACUTE[ICD9: 462] Diagnosis: URI, ACUTE[ICD9: 465.9] Yvette TAYLOR ER DO [address] [address] CPT-4: 88267 09/13/2011 OFFICE/OUTPATIENT VISIT EST Diagnosis: PHARYNGITIS, ACUTE[ICD9: 462] Diagnosis: COUGH[ICD9: 786.2] Yvette TAYLORER DO [address] [address] CPT-4: 61247 08/07/20 11 ([id number]) OFFICE/OUTPATIENT VISIT EST Yvette DILLONMelinda QUINONES Michael BUSTOSNDER DO [address] [address] CPT-4: 02573 01/04/2011 ([id number]) OFFICE/OUTPATIENT VISIT, [facility] [address] [place] [address] CPT-4: 73706 02/14/2010 ([id number]) OFFICE/OUTPATIENT VISIT, [facility] [address] [place] [address] CPT-4: 35825 02/07/2010 Plan of Care Planned Activity Notes [...] ICD-9 : 807.00 ICD-10 : S22.31XA 08/07/2022 Patient Education: tramadol- [employer] Coupon [id number] Completed 08/07/2022 Visit Diagnosis Plan: Stress Recommendations: [...] in AM and add singulair at night [id number] ICD-9 : 786.2 ICD-10 : R05.9 08/02/2022 Appointment: Yvette David WPtel: [address] [place], [place] [phone] US FOLLOW UP 08/02/2022 Patient Education: Singulair- [employer] Coupon [phone] [email or web address]/resources/[email or web address] Completed 08/02/2022 Visit Diagnosis Plan: Atrial fibrillation and flutter Discussion: Increase metoprolol to 50mg po BID Increase amiodarone to 200mg po BID Fwup 1month Defers flu shot ICD-9 : 427.31 ICD-10 : I48.91 06/26/2022 Appointment: Yvette David WPtel: [facility]1 [phone] US FOLLOW UP 06/26/2022 Patient Education: metoprolol succinate- [employer] Co upon [id number] https://www.[employer]/resources/getResource/61/t4363t39-698q-0y58-29 Completed 06/26/2022 Referral: Lino Davila [address] [place] [id number] [place], [place] [id number] [place] Referral Completed 05/23/2022 Visit Diagnosis Plan: Skin cancer of arm Discussion: W esther obtain pathology results from Dr. Eng--patient states [...] : J44.9 05/22/2022 Appointment: Yvette David WPtel: [phone] [phone] US FOLLOW UP 05/22/2022 Referral: Anuj Eng [facility]el[facility] [facility] Referral Appointment Confirmed 03/08/2022 Appointment: Yvette David WPtel: [address] [place], [place] [phone] US LAB 02/28/2022 Visit Diagnosis Plan: Unspecified atrial [...] : I48.91 02/27/2022 Appointment: Yvette David WPtel: [address] [place], [place] [phone] US ACUTE ILLNESS 02/27/2022 Care Plan: Referral Order SNOMED-CT : 30 [id number] Pending 02/27/2022 Care Plan: Referral Order SNOMED-CT : 30 [id number] Pending 02/27/2022 Appointment: Yvette David WPtel: [address] [phone] US CANCELED 12/06/2021 Visit Diagnosis Plan: Anxiety Discussion: Improving wi th effexor--wants to keep dose the same ICD-9 : 300.00 ICD-10 : F41.9 11/23/2021 Appointment: Yvette David WPtel: [address] [phone] FOLLOW UP 11/23/2021 Visit Diagnosis Plan: Anxiety Discussion: Restart effe xor XR at 37.5mg daily Stress Reducers Fwup 6 weeks No tremors noted today ICD-9 : 300.00 ICD-10 : F41.9 10/12/2021 Appointment: Yvette David WPtel: [address] [phone] ACUTE ILLNESS 10/12/2021 Visit Plan: Supportive [...] : 931 ICD-10 : T16.2XXA 08/09/2021 Appointment: Martina Lopez WPtel: [phone] [phone] ACUTE ILLNESS 08/09/2021 Patient Education: Patient Medication Summary Completed 08/09/2021 Visit Diagnosis Plan: Hypothyroidism Discussion: Lab s table ICD-9 : 244.9 ICD-10 : E03.9 07/28/2021 Visit Diagnosis Plan: Paroxysmal atrial fibrillation D iscussion: Saw Dr. Kaye last week Stable on meds ICD-9 : 427.31 ICD-10 : I48.0 07/28/2021 Visit Diagnosis Plan: Essential (primary) hypertension Discussion: Stable Had Moderna booster Defers flu shot Fwup in Spring ICD-9 : 401.1 ICD-10 : I10 07/28/2021 Visit Diagnosis Plan: Hyperglycemia, unspecified Discu ssion: HbA1C stable ICD-9 : 790.29 ICD-10 : R73.9 07/28/2021 Appointment: Yvette David WPtel: [address] [place], [place] [phone] US FOLLOW UP 07/28/2021 Appointment: Yvette David WPtel: [address] [place], [place] [phone] US LAB 07/20/2021 Visit Diagnosis Plan: Grieving Discussion: Restart Eff exor XR 37.5mg po q AM ICD-9 : 309.0 ICD-10 : F43.21 05/12/2021 Visit Diagnosis Plan: Inflamed seborrheic keratosis Di scussion: Cryotherapy as above ICD-9 : 702.11 ICD-10 : L82.0 05/12/2021 Appointment: Yvette David WPtel: [address] [place], [place] [phone] US FOLLOW UP 05/12/2021 Appointment: Yvette David WPtel: [address] [place], [place] [phone] US assisted patient with opening her eye drops for cataract liane an (km) CANCELED 03/22/2021 Visit Diagnosis Plan: Rhus dermatitis Discussion: Marielena log 40mg IM x1 Can continue TAC ICD-9 : 692.6 ICD-10 : L25.5 03/08/2021 Appointment: Yvette David WPtel: [address] [place], [place] [phone] US FOLLOW UP 03/08/2021 Visit Diagnosis Plan: [...] : I48.20 02/03/2021 Appointment: Yvette David WPtel: [address] [place], [place] [phone] FOLLOW UP 02/03/2021 Appointment: Yvette David WPtel: [address] [place], [place] [phone] US LAB 01/31/2021 Visit Diagnosis Plan: Chronic [...] : H61.20 01/04/2021 Appointment: Yvette David WPtel: [address] [place], [place] [phone] ACUTE ILLNESS 01/04/2021 Appointment: Yvette David WPtel: [address] [place], [place] [phone] BP CHECK 10/05/2020 Visit Diagnosis Plan: Chronic atrial fibrillation Disc ussion: Due to symptomatic bradycardia will decrease metoprolol ER to 25mg po BID Bring by BP and pulse readings in 2 weeks ICD-9 : 427.31 ICD-10 : I48.20 09/20/2020 Appointment: Yvette David WPtel: [address] [place], [place] [phone] ACUTE ILLNESS 09/20/2020 Appointment: Yvette David WPtel: [address] [place], [place] [phone] NURSE SERVICES 05/28/2020 Visit Diagnosis Plan: Dysplastic nevus of right lower extremity Discussion: Removal as above and sent to pathology Return in 10 days for suture removal ICD-9 : 216.7 ICD-10 : D23.71 05/19/2020 Appointment: Yvette David WPtel: [address] [place], [place] [phone] FOLLOW UP 05/19/2020 Visit Diagnosis Plan: Diarrhea [...] 05/11/2020 Visit Diagnosis Plan: Encounter for gene ral adult medical examination without abnormal findings Discussion: [...] : I48.20 05/11/2020 Appointment: Yvette David WPtel: [address] [place], [place] [phone] Annual Well Visit 05/11/2020 Appointment: Yvette David WPtel: [address] [place] [phone] US LAB 05/05/2020 Visit Diagnosis Plan: Chronic pruritic rash in adult D iscussion: Improved with DC of eliquis Discussed all options including warfarin, pradaxa and [...] : I48.0 02/11/2020 Appointment: Yvette David WPtel: [address] [place], [place] [phone] US FOLLOW UP 02/11/2020 Visit Diagnosis Plan: Dermatitis [...] : L29.8 01/28/2020 Appointment: Yvette David WPtel: [address] [place], [place] [phone] ACUTE ILLNESS 01/28/2020 Patient Education: hydroxyzine HCl- [employer] Coupon [id number] https://www.[employer]digital/[employer]/resources/getResource/61/i2c4v434-3h6l-0ns3-8p Completed 01/28/2020 Visit Diagnosis Plan: Diarrhea, unspecified [...] : R42 01/05/2020 Appointment: Yvette David WPtel: [address] [place], [place] [phone] ACUTE ILLNESS 01/05/2020 Appointment: Yvette David WPtel: [address] [place], [place] [phone] US LAB 12/05/2019 Appointment: Yvette David WPtel: [address] [place], [place] [phone] US LAB 11/05/2019 Visit Diagnosis Plan: Dizziness [...] : N28.9 10/29/2019 Appointment: Yvette David WPtel: [phone] [phone] FOLLOW UP 10/29/2019 Appointment: Yvette David WPtel: [phone] [phone] US UA 10/23/2019 Appointment: Yvette David WPtel: [address] [phone] US LAB 10/21/2019 Visit Diagnosis Plan: Dizziness [...] ICD-10 : H61.20 10/20/2019 Appointment: Natalee Gray [address] [place] [address] ACUTE ILLNESS 10/20/2019 Patient Education: meclizine- [employer] Coupon [id number] https://www.[employer].7digital/samplemd/resources/getResource/61/26d27579-084k-48dz-ou Completed 10/20/2019 Appointment: Yvette David WPtel: [phone] US Canceled, Said patient was feeling lots [...] : I48.0 07/07/2019 Appointment: Yvette David WPtel: [address] [place], [place] [phone] US FOLLOW UP 07/07/2019 Visit Diagnosis Plan: Essential (primary) hypertension Discussion: Increase HCTZ to 25mg daily Call in 1 week with BP readings ICD-9 : 401.9 ICD-10 : I10 05/01/2019 Appointment: Yvette David WPtel: [address] [place], [place] [phone] US FOLLOW UP 05/01/2019 Visit Diagnosis Plan: Essential (primary) hypertension Discussion: Change metoprolol to 50mg po q AM and 100mg po q PM Add HCTZ 12.5mg po q AM Monitor home BP and pulse Recheck 2 weeks Start Cardiac Rehab or Wellness ICD-9 : 401.1 ICD-10 : I10 04/15/2019 Appointment: Yvette Davidtel: [address] [place], [place] [phone] US FOLLOW UP 04/15/2019 Patient Education: hydrochlorothiazide- [employer] Cou [facility] [id number] https://www.[employer].7digital/samplemd/resources/getResource/61/6c2g5044-v46p-873g-ms Completed 04/15/2019 Appointment: Yvette David WPtel: [facility]8 [phone] US LAB 04/04/2019 Care Plan: US EXAM CHEST US of left breast LOINC : 77609-3 Pending 03/17/2019 Visit Diagnosis Plan: Hypothyroidism, unspecified Disc ussion: Stable ICD-9 : 244.9 ICD-10 : E03.9 11/26/2018 Visit Diagnosis Plan: Paroxysmal atrial fibrillation D iscussion: Stable ICD-9 : 427.31 ICD-10 : I48.0 11/26/2018 Visit Diagnosis Plan: Encounter for [facility] adult medical examination without abnormal findings Discussion: Mediterranean diet Combinati on of cardio and weight bearing exercise Recommend Shingrix Lab and fwup in March ICD-9 : V70.9 ICD-10 : Z00.00 11/26/2018 Visit Diagnosis Plan: Essential (primary) hypertension Discussion: Stable ICD-9 : 401.1 ICD-10 : I10 11/26/2018 Appointment: Yvette David WPtel: [address] [place], [place] [phone] Annual Well Visit 11/26/2018 Appointment: Yvette David WPtel: [address] [place] [phone] US LAB 10/07/2018 Visit Diagnosis Plan: Presence [...] 389.9 ICD-10 : H91.92 08/08/2018 Appointment: Yvette David WPtel: [address] [place], [place] [phone] US FOLLOW UP 08/08/2018 Appointment: Natalee Gray [address] CANCELED 07/18/2018 Visit Diagnosis Plan: Sudden idiopathic [...] : I10 06/25/2018 Appointment: Y[facility]Ptel: [facility] [phone] [facility] Follow Up 06/25/2018 Patient Education: Patient Medication Summary Completed 06/25/2018 Appointment: Yvette David WPtel: [facility]3 [phone] BP CHECK 05/20/2018 Patient Education: Patient Medication [...] : I10 05/10/2018 Appointment: Yvette David WPtel: [facility]6 [phone] FOLLOW UP 05/10/2018 Patient Education: Patient [...] I10 05/03/2018 Appointment: Yvette David WPtel: [phone] [phone] ACUTE ILLNESS 05/03/2018 Patient Education: Patient [...] : E03.9 04/22/2018 Appointment: Yvette David WPtel: [address] [phone] FOLLOW UP 04/22/2018 Patient Education: Patient Medication [...] : B02.9 03/05/2018 Appointment: Natalee Gray 504 [facility] ACUTE ILLNESS 03/05/2018 Patient Education: Patient Medication [...] : H61.23 02/19/2018 Appointment: Natalee Gray 504 [facility]66[facility] ACUTE ILLNESS 02/19/2018 Patient Education: Patient Medication Summary Completed 02/19/2018 Appointment: Yvette David WPtel: [address] [place], [place] [phone] US LAB 02/13/2018 Patient Education: Patient Medication Summary [...] : G47.33 10/18/2017 Appointment: Yvette David WPtel: [address] [phone] US FOLLOW UP 10/18/2017 Patient Education: Patient Medication Summary Completed 10/18/2017 Appointment: Yvette David WPtel: [phone] [phone] US LAB 10/15/2017 Patient Education: Patient Medication Summary [...] ICD-10 : H61.23 07/24/2017 Appointment: Natalee Gray [address] [place], [place] [id number] ACUTE ILLNESS 07/24/2017 Patient Education: Patient Medication Summary Completed 07/24/2017 Referral: Jey Kaye WPtel: [address] Referral Initiated 07/05/2017 Patient Education: Patient Medication [...] : R00.0 06/14/2017 Appointment: Yvette David WPtel: [phone] [phone] FOLLOW UP 06/14/2017 Patient Education: Patient Medication Summary Completed 06/14/2017 Care Plan: Referral Order SNOMED-CT : 30 [id number] Pending 06/14/2017 Visit Plan: ERx for Valtrex, system won' t allow ERx for Prednisone so it is called 10mg 2 po bid x 3 days then 1 po bid x 3 days then 1 po daily x 3 days then 1/2 po daily x 3 days then d/c She declines gabapentin or pain meds Anticipatory guidance discussed. 06/01/2017 Appointment: Demi Rocha WPtel: [phone] [facility] ACUTE ILLNESS 06/01/2017 Patient Education: Patient Medication [...] : D51.8 03/30/2017 Appointment: Yvette David WPtel: [address] [place], [place] [phone] 03/29 lm ~sl FOLLOW UP 03/30/2017 Patient Education: [...] : R53.83 01/17/2017 Appointment: Yvette David WPtel: [facility]5 [phone] 01/16 lm`sl FOLLOW UP 01/17/2017 Patient Education: Patient [...] G62.9 12/18/2016 Visit Diagnosis Plan: Encounter for [facility] adult medical examination without abnormal findings Discussion: Increase activity and contin ue healthy eating Continune using urinary incontinence pads at night for nocturia Reviewed labs ICD-9 : V70.9 ICD-10 : Z00.00 12/18/2016 Appointment: Yvette David WPtel: [address] [place], [place] [phone] 11/13 confirmed ~ Annual Well Visit 12/18/2016 Patient Education: Patient Medication Summary Completed 12/18/2016 Appointment: Yvette David WPtel: [address] [place], [place] [phone] LAB 12/11/2016 Patient Education: Patient Medication Summary [...] Visit Diagnosis Plan: Cough Discussion: Nelly curtis prn ICD-9 : 786.2 ICD-10 : R05 11/02/2016 Appointment: Yvette David WPtel: [address] [place], [place] [phone] FOLLOW UP 11/02/2016 Appointment: Yvette David WPtel: [facility]5 [phone] US CANCELED 11/02/2016 Patient Education: Patient Medication Summary Completed 11/02/2016 Visit Diagnosis Plan: Acute upper respiratory infectio n, unspecified Discussion: Rx as above Discussed OTC meds and supportive care Notify if not improving so regimen can be changed before her upcoming trip in 2 weeks ICD-9 : 465.9 ICD-10 : J06.9 10/24/2016 Appointment: Elidia Calix [address] [place], [place] [phone] ACUTE ILLNESS 10/24/2016 Patient Education: Patient Medication Summary Completed 10/24/2016 Patient Education: Patient Medication Summary Completed 06/26/2016 Visit Plan: Office dip wnl/BP wnl Does s eem likely to be viral GI illness Supportive care with rxs as above Soft and bland diet Will need bloodwork if not improving 02/07/2016 Appointment: Elidia Calix [address] [place], [place] [phone] ACUTE ILLNESS 02/07/2016 Patient Education: Patient Medication Summary Completed 02/07/2016 Patient Education: Patient Medication Summary Completed 07/01/2015 Appointment: Yvette David WPtel: [address] [place], [place] [phone] US LAB 05/27/2015 Patient Education: Patient Medication Summary Completed 05/27/2015 Visit Plan: Trial of Gralise 300mg at be dtimi with 4 oz tonic water Sharron's solution soaks to feet Check TSH, Free T4, B12, CMP, HbA1C now Call in 2weeks 05/26/2015 Appointment: Yvette David WPtel: [address] [place], [place] [phone] 05/25/2015 confirmed w patient ACUTE ILLNESS 10/2014 Patient Education: Patient Medication Summary Completed 05/26/2015 Appointment: Yvette David WPtel: [facility]5 [phone] Stool lab 02/19/2015 Patient Education: Patient Medication Summary Completed 02/19/2015 Appointment: Yvette David WPtel: [phone] [phone] [facility] lab 01/20/2015 Patient Education: Patient Medication Summary Completed 01/20/2015 Appointment: Yvette David WPtel: [address] [place], [place] [phone] US LAB 12/15/2014 Patient Education: Patient Medication Summary Completed 12/15/2014 Appointment: Earline Morris WPtel: [address] [place], [place] [phone] ACUTE ILLNESS 11/30/2014 Patient Education: Patient Medication Summary Completed 11/30/2014 Appointment: Yvette David WPtel: [address] [place], [place] [phone] LAB 11/26/2014 Patient Education: Patient Medication Summary Completed 11/26/2014 Appointment: Yvette David WPtel: [address] [place], [place] [phone] LAB 08/14/2014 Patient Education: Patient Medication Summary Completed 08/14/2014 Visit Plan: Defers bone density Proceed with colonoscopy Change omeprazole to protonix Due for fasting lab next month 07/23/2014 Appointment: Yvette David WPtel: [address] [place], [place] [phone] ACUTE ILLNESS 07/23/2014 Patient Education: Patient Medication Summary Completed 07/23/2014 Patient Education: Patient Medication Summary Completed 06/05/2014 Appointment: Earline Morris WPtel: [address] [place], [place] [phone] FOLLOW UP 03/09/2014 Patient Education: Patient Medication Summary Completed 03/09/2014 Appointment: Yvette David WPtel: [address] [place], [place] [phone] ACUTE ILLNESS 02/05/2014 Patient Education: Patient Medication Summary Completed 02/05/2014 Appointment: Yvette David WPtel: [address] [place], [place] [phone] [facility] 02/04/2014 Patient Education: Patient Medication Summary Completed 02/04/2014 Appointment: Earline Morris WPtel: [address] [place], [place] [phone] ACUTE ILLNESS 05/12/2013 Patient Education: Patient Medication Summary Completed 05/12/2013 Visit Plan: MRI results discussed Discus sed epidural injections SI joint injection as above Continue Celebrex 200mg daily 04/07/2013 Appointment: Yvette David WPtel: [address] [place], [place] [phone] 04/04 left message FOLLOW UP 04/07/2013 Patient Education: Patient Medication Summary Completed 04/07/2013 Visit Plan: Restart PT and epidural--may need updated MRI of L/S spine Tylenol prn Celebrex 200mg daily 03/31/2013 Appointment: Yvette David WPtel: [address] [place], [place] [address] ACUTE ILLNESS 03/31/2013 Patient Education: Patient Medication Summary Completed 03/31/2013 Visit Plan: Injection to hip as above Pt will take Vimovo 500/20mg po daily for next week Call in 1wk on both hip and stomach Discussed that likely has arthritis in hip as well 10/09/2012 Appointment: Yvette David WPtel: [address] [place], [place] [phone] 10/08 Left message ACUTE ILLNESS 10/09/2012 Patient Education: Patient Medication Summary Completed 10/09/2012 Visit Plan: See urology--Dr. Hutchinson for cystocele Start Premarin vaginal Cream 1/2 gm vaginally twice weekly then repeat PAP in 3mos Continue nexium for 4 more weeks then start Zantac daily--notify if cough returns 03/28/2012 Appointment: Yvette Davidl: [phone] [phone] PAP 03/28/2012 Patient Education: Patient Medication Summary Completed 03/28/2012 Appointment: Yvette David WPtel: [address] [place], [place] [phone] LAB 03/18/2012 Patient Education: Patient Medication Summary Completed 03/18/2012 Appointment: Reyna Colón WPtel: [address] [place], [place] [phone] OFFICE SURGERY 2012 Patient Education: Patient Medication Summary Completed 2012 Visit Plan: Pap done Kegel exercises--de fers meds or surgery eval at this time Mammo due in January [place] symbicort 09/27/2011 Appointment: Yvette David WPtel: [address] [place], [place] [phone] FOLLOW UP 09/27/2011 Patient Education: Patient Medication Summary Completed 09/27/2011 Visit Plan: Symbicort 160/4.5 2 p BID 09/13/2011 Appointment: Yvette David WPtel: [address] [place], [place] [phone] ACUTE ILLNESS 09/13/2011 Patient Education: Patient Medication Summary Completed 09/13/2011 Visit Plan: Cefdinir and medrol dose pac k. Discussed if no improvement by Sunday will obtain chest x-ray and CBC with mycoplasma. 08/07/2011 Appointment: Reyna Colón WPtel: [address] [place], [place] [phone] ACUTE ILLNESS 08/07/2011 Patient Education: Patient Medication Summary Completed 08/07/2011 Appointment: Yvette David WPtel: [address] [place], [place] [phone] 07/13/2011 Patient Education: Patient Medication Summary Completed 07/13/2011 Appointment: Yvette David WPtel: [address] [place], [place] [phone] LAB 03/13/2011 Patient Education: Patient Medication Summary Completed 03/13/2011 Appointment: Yvette David WPtel: [address] [place], [place] [phone] BP CHECK 02/06/2011 Patient Education: Patient Medication Summary Completed 02/06/2011 Appointment: Yvette David WPtel: [address] [place], [place] [phone] BP CHECK 01/20/2011 Patient Education: Patient Medication Summary Completed 01/20/2011 Appointment: Yvette David WPtel: [address] [place], [place] [phone] BP CHECK 01/12/2011 Patient Education: Patient Medication Summary Completed 01/12/2011 Visit Plan: Increase Synthroid to 75mcg po daily Increase fish oil to BID Start daily Toprol XL 12.5mg BP check in 1wk TSH and Free T4 in 2mos. 01/04/2011 Appointment: Yvette David WPtel: [address] [place], [place] [phone] FOLLOW UP 01/04/2011 Patient Education: Patient Medication Summary Completed 01/04/2011 Appointment: Yvette David WPtel: [address] [place], [place] [phone] LAB 12/16/2010 Patient Education: Patient Medication Summary Completed 12/16/2010 Visit Plan: Start PT May need MRI 02/14/2010 Appointment: Yvette aDvid WPtel: [address] [place], [place] [phone] OFFICE SURGERY 02/14/2010 Patient Education: Patient Medication [...] injection (steroid). 02/07/2010 Appointment: Reyna Col[facility]Ptel: [phone] [facility] [facility] 02/07/2010 Patient Education: Patient Medication Summary Completed 02/07/2010 Appointment: Yvette David [facility]Ptel[facility] [phone] [facility] 12/22/2009 Patient Education: Patient Medication Summary Completed [...] data not found Advance Directives Filename Date [id number] 06/03/2012
--- OUTSIDE RECORDS SUMMARY | 2022-08-14 14:01 | XMS REPORT | CCD ---
Author Author Lucille David D.O. 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 Name Role Phone Yvette David D.O., PP Unavailable CCM Unavailable Summary Purpose Interface Exchange Insurance Providers Payer name Policy type / Coverage type Covered democrat ID Effective Begin Date Effective End Date WPS MEDICARE PART B [place] Medicare Part B [id number] Unknown Cigna Medicare Part B [id number] Unknown Family History Family History data not found Social History Social History Element Codes Description Effective Dates Tobacco history SNOMED CT: [id number] Has never smoked or chewed tobacco 05/26/2015 [...] ICD-10: G62.9 ICD-9: 355.9 12/18/2016 Active 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 ICD-10: Z79.899 ICD-9: V58.69 [...] Fill Instructions tramadol 50 mg tablet RxNorm: 123608 Take 1-2 Tablet(s) Oral Every 6 hours as needed as needed for pain 08/07/2022 No Stop Date Active Effexor XR 75 mg capsule,extended release RxNorm: 430539 Take 1 Capsule(s) Oral QPM replaces 37.5mg done 08/02/2022 10/30/2022 Active Singulair 10 mg tablet RxNorm: 121215 Take 1 Tablet(s) Oral QPM 05/202201/28/2023 Active metoprolol succinate ER 50 mg tablet,extended release 24 hr RxNorm: 253755 1 Tablet(s) Oral two times a day 06/26/2022 12/22/2022 Active amiodarone 200 mg tablet RxNorm: 752866 Take 1 Tablet(s) Oral t wo times a day 06/26/2022 06/26/2022 Inactive venlafaxine ER 37.5 mg capsule,extended release 24 hr RxNorm : 266350 Take 1 Capsule(s) Oral QAM 06/16/2022 08/01/2022 Inactive simvastatin 20 mg tablet RxNorm: 906392 Take 1 Tablet(s) Oral QD 11/21/2022 Active Xarelto 20 mg tablet RxNorm: 8226877 Take 1 Tablet(s) Oral QD 05/22 No Stop Date Active amiodarone 200 mg tablet RxNorm: 391862 Take 1 Tablet(s) Oral QD 06/25/2022 Inactive Euthyrox 88 mcg tablet RxNorm: 885067 TAKE 1 TABLET BY MOUTH ONCE DAILY - DUE FOR UPDATED LAB 05/21/2022 08/18/2022 Active Breztri Aerosphere 160 mcg-9mcg-4.8mcg/actuation HFA a erosol inhaler RxNorm: 4072634 2 Puff(s) Inhalation two times a day in the morning an d evening 05/01/2022 05/01/2022 Inactive Breztri Aerosphere 160 mcg-9mcg-4.8mcg/actuation HFA a erosol inhaler RxNorm: 5563460 2 Puff(s) Inhalation two times a day in the morning an d evening 05/01/2022 05/30/2022 Inactive diltiazem CD 120 mg capsule,extended release 24 hr RxNorm: 8 93227 TAKE 1 CAPSULE BY MOUTH TWICE DAILY REPLACES 180MG DOSE 04/17/2022 10/13/2022 Active pantoprazole 40 mg tablet,delayed release RxNorm: 923260 Take 1 Tablet(s) Oral QD 04/17/2022 10/13/2022 Active Xarelto 10 mg tablet RxNorm: 9642246 Take 1 Tablet(s) Oral QD 03/2105/21/2022 Inactive simvastatin 20 mg tablet RxNorm: 163912 Take 1 Tablet(s) Oral QD 02/23/2022 Inactive levothyroxine 88 mcg tablet RxNorm: 588892 Take 1 table t by mouth once daily due for updated lab 02/22/2022 02/22/2022 Inactive Cartia XT 120 mg capsule,extended release RxNorm: 485904 TAKE 1 CAPSULE BY MOUTH TWICE DAILY REPLACES 180MG DOSE 01/16/2022 01/16/2022 Inactive pantoprazole 40 mg tablet,delayed release RxNorm: 968462 Take 1 Oral QD 12/15/2021 12/15/2021 Inactive scopolamine 1 mg over 3 days transdermal patch RxNorm: 00838 2 Take 1 Application Transdermal Q3D as needed 11/23/2021 06/25/2022 Inactive Effexor XR 37.5 mg capsule,extended release RxNorm: 330808 1 Capsule(s) Oral QAM 11/23/2021 11/23/2021 Inactive levothyroxine 88 mcg tablet RxNorm: 611984 Take 1 tablet by alvaro th once daily 11/21/2021 11/21/2021 Inactive diltiazem CD 120 mg capsule,extended release 24 hr RxNorm: 8 27956 TAKE 1 CAPSULE BY MOUTH TWICE DAILY REPLACES 180MG DOSE 10/17/2021 10/17/2021 Inactiv e pantoprazole 40 mg tablet,delayed release RxNorm: 540710 Take 1 Tablet(s) Oral QD 10/17/2021 10/17/2021 Inactive Effexor XR 37.5 mg capsule,extended release RxNorm: 083897 1 Capsule(s) Oral QAM 10/12/2021 11/22/2021 Inactive Xarelto 10 mg tablet RxNorm: 2469200 Take 1 Tablet(s) Oral QD 09/1409/14/2021 Inactive metoprolol succinate ER 50 mg tablet,extended release 24 hr RxNorm: 537434 Take 1/2 (one-half) tablet by mouth twice daily 09/14/2021 03/12/2022 Inact beto simvastatin 20 mg tablet RxNorm: 220985 Take 1 Tablet(s) Oral QD 08/30/2021 Inactive levothyroxine 88 mcg tablet RxNorm: 561739 Take 1 tablet by [facility] once daily 08/28/2021 08/28/2021 Inactive fluticasone propionate 50 mcg/actuation nasal spray,suspensi on RxNorm: 7362372 Take 1 [place] Nasal QD in each nostrilas needed 08/09/2021 09/07/2021 I nactive pantoprazole 40 mg tablet,delayed release RxNorm: 299524 Take 1 Tablet(s) Oral QD 07/19/2021 07/19/2021 Inactive Xarelto 10 mg tablet RxNorm: 3587970 Take 1 Tablet(s) Oral QD 06/2906/29/2021 Inactive Euthyrox 88 mcg tablet RxNorm: 019943 Take 1 tablet by mouth on ce daily 05/24/2021 05/24/2021 Inactive Effexor XR 37.5 mg capsule,extended release RxNorm: 097399 1 Capsule(s) Oral QAM 05/12/2021 07/27/2021 Inactive Xarelto 10 mg tablet RxNorm: 0327410 Take 1 tablet by mo [facility] once daily Take 1 Tablet(s) Oral QD 04/19/2021 04/19/2021 Inactive metoprolol succinate ER 50 mg tablet,extended release 24 hr RxNorm: 957376 1/2 Tablet(s) Oral two times a day 04/12/2021 04/12/2021 Inactive d ecrease in dose of 1/2 tablet twice daily metoprolol succinate ER 50 mg tablet,extended release 24 hr RxNorm: 975102 Take 1/2 (one-half) tablet by mouth twice daily 04/12/2021 10/11/2021 Inact beto simvastatin 20 mg tablet RxNorm: 840824 Take 1 Tablet(s) Oral QD 03/07/2021 Inactive prednisone 10 mg tablet RxNorm: 012212 Take 1 Tablet(s) Oral tw o times a day 03/01/2021 03/01/2021 Inactive triamcinolone acetonide 0.1 % topical cream RxNorm: 5117830 Apply 1 Application Topical two times a day 03/01/2021 03/01/2021 Inactive prednisone 10 mg tablet RxNorm: 506807 Take 1 Tablet(s) Oral tw o times a day 03/01/2021 03/03/2021 Inactive triamcinolone acetonide 0.1 % topical cream RxNorm: 4510854 Apply 1 Application Topical two times a day 03/01/2021 03/01/2021 Inactive Euthyrox 88 mcg tablet RxNorm: 056771 Take 1 tablet by mouth on ce daily 02/22/2021 02/22/2021 Inactive Effexor XR 37.5 mg capsule,extended release RxNorm: 532938 1 Capsule(s) Oral QAM 02/03/2021 02/02/2021 Inactive Effexor XR 37.5 mg capsule,extended release RxNorm: 900559 1 Capsule(s) Oral QAM 02/03/2021 04/03/2021 Inactive simvastatin 20 mg tablet RxNorm: 944772 Take 1 tablet by mouth once daily 1 01/25/2021 01/25/2021 Inactive Cardizem CD 120 mg capsule,extended release RxNorm: 140081 1 Capsule(s) Oral two times a day replaces 180mg dose 01/19/2021 01/19/2021 Inactive Protonix 40 mg tablet,delayed release RxNorm: 285782 1 Tablet(s ) Oral QD 01/17/2021 01/17/2021 Inactive Effexor XR 37.5 mg capsule,extended release RxNorm: 100266 1 Capsule(s) Oral QAM 01/04/2021 02/02/2021 Inactive scopolamine 1 mg over 3 days transdermal patch RxNorm: 09515 2 1 Application Transdermal behind ear for vertigo 01/04/2021 01/03/2021 Inactive scopolamine 1 mg over 3 days transdermal patch RxNorm: 41912 2 1 Application Transdermal behind ear for vertigo 01/04/2021 01/04/2021 Inactive metoprolol succinate ER 50 mg tablet,extended release 24 hr RxNorm: 962660 1/2 Tablet(s) Oral two times a day 12/29/2020 12/28/2020 Inactive metoprolol succinate ER 50 mg tablet,extended release 24 hr RxNorm: 474421 1/2 Tablet(s) Oral two times a day 12/29/2020 12/29/2020 Inactive d ecrease in dose of 1/2 tablet twice daily Xarelto 10 mg tablet RxNorm: 2481905 Take 1 tablet by mouth once daily 12/29/2020 03/29/2021 Inactive Xarelto 10 mg tablet RxNorm: 3711724 Take 1 tablet by mouth once daily 11/26/2020 12/28/2020 Inactive simvastatin 20 mg tablet RxNorm: 163792 Take 1 tablet by mouth once daily 11/26/2020 01/24/2021 Inactive Synthroid 88 mcg tablet RxNorm: 010331 Take 1 tablet by mouth o nce daily 10/21/2020 10/21/2020 Inactive simvastatin 20 mg tablet RxNorm: 687511 Take 1 tablet by mouth once daily 09/30/2020 11/25/2020 Inactive Xarelto 10 mg tablet RxNorm: 2477978 Take 1 tablet by mouth once daily 08/26/2020 11/23/2020 Inactive metoprolol succinate ER 50 mg tablet,extended release 24 hr RxNorm: 138733 1 Tablet(s) Oral two times a day 08/05/2020 11/03/2020 Inactive simvastatin 20 mg tablet RxNorm: 649959 Take 1 tablet by mouth once daily 07/30/2020 09/27/2020 Inactive Synthroid 88 mcg tablet RxNorm: 941119 Take 1 tablet by mouth o nce daily 07/27/2020 10/20/2020 Inactive Protonix 40 mg tablet,delayed release RxNorm: 520224 1 Tablet(s ) Oral QD 07/26/2020 10/24/2020 Inactive Xarelto 10 mg tablet RxNorm: 2576421 1 Tablet(s) Oral QD 06/03/2020 1 10/26/2019 Inactive Cardizem CD 120 mg capsule,extended release RxNorm: 944625 1 Capsule(s) Oral two times a day replaces 180mg dose 05/11/2020 11/07/2020 Inactive Pradaxa 75 mg capsule RxNorm: 2028618 1 Capsule(s) Oral two time s a day 05/11/2020 05/11/2020 Inactive meclizine 25 mg tablet RxNorm: 394795 1 Tablet(s) Oral every ni ght at bedtime 05/05/2020 10/11/2021 Inactive simvastatin 20 mg tablet RxNorm: 976173 Take 1 tablet by mouth once daily 05/04/2020 05/10/2020 Inactive simvastatin 20 mg tablet RxNorm: 041419 TAKE 1 TABLET BY MOUTH ONCE DAILY 04/29/2020 09/19/2020 Inactive Synthroid 88 mcg tablet RxNorm: 108970 TAKE 1 TABLET BY MOUTH O NCE DAILY 04/20/2020 07/18/2020 Inactive diltiazem CD 180 mg capsule,extended release 24 hr RxNorm: 8 98291 TAKE 1 CAPSULE BY MOUTH TWICE DAILY 04/05/2020 05/10/2020 Inactive simvastatin 20 mg tablet RxNorm: 804370 TAKE 1 TABLET BY MOUTH ONCE DAILY 02/24/2020 04/23/2020 Inactive aspirin 325 mg tablet RxNorm: 019890 1 Tablet(s) Oral QD 02/11/2020 0 05/10/2020 Inactive hydroxyzine HCl 10 mg tablet RxNorm: 097284 1 Tablet(s) Oral th ree times a day 01/28/2020 05/10/2020 Inactive diltiazem CD 180 mg capsule,extended release 24 hr RxNorm: 8 11272 TAKE 1 CAPSULE BY MOUTH TWICE DAILY 01/19/2020 04/04/2020 Inactive spironolactone 25 mg tablet RxNorm: 191059 1 Tablet(s) Oral QOD replaces Triam/HCTZ 01/15/2020 01/14/2020 Inactive spironolactone 25 mg tablet RxNorm: 728666 1 Tablet(s) Oral QOD replaces Triam/HCTZ 01/15/2020 01/26/2020 Inactive prednisone 20 mg tablet RxNorm: 663859 1 Tablet(s) Oral QD 01/12/20 20 01/14/2020 Inactive prednisone 20 mg tablet RxNorm: 553989 1 Tablet(s) Oral QD 01/12/20 20 01/11/2020 Inactive Benadryl 25 mg capsule RxNorm: 2495085 1 Capsule(s) Oral every n ight at bedtime 01/08/2020 05/10/2020 Inactive Pepcid 20 mg tablet RxNorm: 128356 1 Tablet(s) Oral two times a day 01/08/2020 07/25/2020 Inactive [place] Original 0.5 %-0.5 % lotion RxNorm: 064327 Topical 0 10/11/2021 Inactive Zyrtec 10 mg tablet RxNorm: 5340510 1 Tablet(s) Oral QAM 01/08/2020 0 05/10/2020 Inactive metoprolol succinate ER 50 mg tablet,extended release 24 hr RxNorm: 184746 1 Tablet(s) Oral two times a day 01/05/2020 04/04/2020 Inactive Protonix 40 mg tablet,delayed release RxNorm: 416506 TA KE 1 TABLET BY MOUTH ONCE DAILY 12/29/2019 05/10/2020 Inactive triamterene 37.5 mg-hydrochlorothiazide 25 mg tablet RxNorm: 779441 TAKE 1/2 (ONE-HALF) TABLET BY MOUTH EVERY OTHER DAY 12/24/2019 01/14/2020 Inact beto triamterene 37.5 mg-hydrochlorothiazide 25 mg tablet RxNorm: 442744 1/2 Tablet(s) Oral QD 12/12/2019 01/26/2020 Inactive diltiazem CD 180 mg capsule,extended release 24 hr RxNorm: 8 59095 TAKE 1 CAPSULE BY MOUTH TWICE DAILY 12/03/2019 01/18/2020 Inactive Eliquis 2.5 mg tablet RxNorm: 6641504 1 Tablet(s) Oral two times a day 11/25/2019 02/10/2020 Inactive simvastatin 20 mg tablet RxNorm: 987388 TAKE 1 TABLET BY MOUTH ONCE DAILY 11/25/2019 02/22/2020 Inactive triamterene 37.5 mg-hydrochlorothiazide 25 mg tablet RxNorm: 709849 1/2 Tablet(s) Oral QOD 11/06/2019 12/11/2019 Inactive triamterene 37.5 mg-hydrochlorothiazide 25 mg tablet RxNorm: 466964 1/2 Tablet(s) Oral QD 10/22/2019 10/28/2019 Inactive meclizine 25 mg tablet RxNorm: 621725 1 Tablet(s) Oral every ni ght at bedtime 10/20/2019 11/19/2019 Inactive Synthroid 88 mcg tablet RxNorm: 438913 TAKE 1 TABLET BY MOUTH O NCE DAILY 10/20/2019 10/21/2019 Inactive scopolamine 1 mg over 3 days transdermal patch RxNorm: 30070 2 1 Unit Dose Transdermal Q72H for vertigo 10/14/2019 01/04/2020 Inactive scopolamine 1 mg over 3 days transdermal patch RxNorm: 55050 2 1 Unit Dose Transdermal Q72H for vertigo 10/14/2019 10/14/2019 Inactive Celebrex 200 mg capsule RxNorm: 646184 TAKE 1 CAPSULE BY MOUTH ONCE DAILY 10/12/2019 10/28/2019 Inactive triamterene 37.5 mg-hydrochlorothiazide 25 mg tablet RxNorm: 913794 1 Tablet(s) Oral QAM 10/06/2019 10/21/2019 Inactive diltiazem CD 180 mg capsule,extended release 24 hr RxNorm: 8 84868 1 Capsule(s) Oral two times a day 10/01/2019 11/29/2019 Inactive simvastatin 20 mg tablet RxNorm: 769264 TAKE 1 TABLET BY MOUTH ONCE DAILY 10/01/2019 10/01/2019 Inactive Patient will need to have fasting labs done before next refill Protonix 40 mg tablet,delayed release RxNorm: 602894 TA KE 1 TABLET BY MOUTH ONCE DAILY 09/28/2019 12/26/2019 Inactive diltiazem CD 180 mg capsule,extended release 24 hr RxNorm: 8 91256 1 Capsule(s) Oral two times a day 08/11/2019 08/10/2019 Inactive diltiazem CD 180 mg capsule,extended release 24 hr RxNorm: 8 78868 1 Capsule(s) Oral two times a day 08/11/2019 09/30/2019 Inactive diltiazem CD 120 mg capsule,extended release 24 hr RxNorm: 8 36707 1 Capsule(s) Oral two times a day 07/23/2019 08/10/2019 Inactive Celebrex 200 mg capsule RxNorm: 320001 1 Capsule(s) Oral QD 07/08/2019 Inactive Celebrex 200 mg capsule RxNorm: 172182 1 Capsule(s) Oral QD 10/07/2019 Inactive diltiazem CD 120 mg capsule,extended release 24 hr RxNorm: 8 97294 1 Capsule(s) Oral QAM 07/07/2019 07/22/2019 Inactive Eliquis 2.5 mg tablet RxNorm: 9730886 1 Tablet(s) Oral two times a day 07/07/2019 11/04/2019 Inactive metoprolol succinate ER 50 mg tablet,extended release 24 hr RxNorm: 443012 1 Tablet(s) Oral QAM and 2 tablets in the evening 06/30/2019 08/05/2020 Inactive hydrochlorothiazide 25 mg tablet RxNorm: 996974 1 Tablet(s) PO QD 1 07/06/2019 Inactive hydrochlorothiazide 25 mg tablet RxNorm: 042729 1 Tablet(s) PO QD 0 05/08/2019 05/07/2019 Inactive patient needs to follow up i n 2 months and continue BP readings at home hydrochlorothiazide 25 mg tablet RxNorm: 723379 1 Tablet(s) PO QD 0 05/08/2019 06/25/2019 Inactive patient needs to follow up i n 2 months and continue BP readings at home metoprolol succinate ER 50 mg tablet,extended release 24 hr RxNorm: 381876 1 Tablet(s) PO QAM and 2 tablets in the evening 05/08/2019 06/29/2019 In active hydrochlorothiazide 12.5 mg tablet RxNorm: 537251 1 Tablet(s) PO QA M 04/15/2019 05/07/2019 Inactive Synthroid 88 mcg tablet RxNorm: 989017 TAKE 1 TABLET BY MOUTH O NCE DAILY 04/14/2019 10/19/2019 Inactive Protonix 40 mg tablet,delayed release RxNorm: 472767 TA KE 1 TABLET BY MOUTH ONCE DAILY 03/24/2019 09/27/2019 Inactive simvastatin 20 mg tablet RxNorm: 476081 TAKE 1 TABLET BY MOUTH ONCE DAILY 03/24/2019 09/30/2019 Inactive losartan 100 mg tablet RxNorm: 028099 1/2 Tablet(s) PO QD 2019 04/14/2019 Inactive Cozaar 50 mg tablet RxNorm: 519284 1 Tablet(s) PO QHS 01/28/201903/25 Inactive Celebrex 200 mg capsule RxNorm: 770688 TAKE 1 CAPSULE BY MOUTH ONCE DAILY 01/10/2019 07/08/2019 Inactive Protonix 40 mg tablet,delayed release RxNorm: 273603 TA KE 1 TABLET BY MOUTH ONCE DAILY 12/23/2018 03/23/2019 Inactive metoprolol succinate ER 50 mg tablet,extended release 24 hr RxNorm: 067913 1.5 Tablet(s) PO BID 12/03/2018 04/14/2019 Inactive Synthroid 88 mcg tablet RxNorm: 323200 1 Tablet(s) PO QD 10/24/2018 0 04/13/2019 Inactive simvastatin 20 mg tablet RxNorm: 484263 1 Tablet(s) PO QD 09/27/2018 12/25/2018 Inactive simvastatin 20 mg tablet RxNorm: 724220 1 Tablet(s) PO QD 09/26/2018 09/26/2018 Inactive Cozaar 50 mg tablet RxNorm: 616726 1 Tablet(s) PO QHS 09/09/201802/2019 Inactive Cozaar 50 mg tablet RxNorm: 194295 1 Tablet(s) PO QHS 09/09/201808/24 Inactive metoprolol succinate ER 50 mg tablet,extended release 24 hr RxNorm: 977606 1.5 Tablet(s) PO BID 09/02/2018 11/30/2018 Inactive Cozaar 50 mg tablet RxNorm: 092225 1 Tablet(s) PO QHS 05/24/201808/24 Inactive Cozaar 25 mg tablet RxNorm: 277916 1 Tablet(s) PO QAM 05/10/201804/25 Inactive clonidine HCl 0.1 mg tablet RxNorm: 486499 1 Tablet(s) PO TID as needed for BP greater than 160/95 05/10/2018 05/20/2018 Inactive betamethasone dipropionate 0.05 % topical cream RxNorm: 2389 20 1 Application TOP BID 05/06/2018 11/25/2018 Inactive prednisone 20 mg tablet RxNorm: 414921 1 Tablet(s) PO QD 05/06/2018 0 05/05/2018 Inactive prednisone 20 mg tablet RxNorm: 305689 1 Tablet(s) PO QD 05/06/2018 0 05/10/2018 Inactive metoprolol succinate ER 50 mg tablet,extended release 24 hr RxNorm: 555322 1.5 Tablet(s) PO BID 05/06/2018 09/01/2018 Inactive Flonase Allergy Relief 50 mcg/actuation nasal spray,suspensi on RxNorm: 3252988 2 [place] NASAL QHS 05/03/2018 11/25/2018 Inactive Celebrex 200 mg capsule RxNorm: 687890 TAKE ONE CAPSULE BY MOUT H ONCE DAILY 04/30/2018 05/02/2018 Inactive Celebrex 200 mg capsule RxNorm: 312629 1 Capsule(s) PO QD TAKE ONE CAPSULE BY MOUTH ONCE DAILY 04/30/2018 05/02/2018 Inactive Synthroid 88 mcg tablet RxNorm: 845746 1 Tablet(s) PO QD 03/12/2018 1 11/08/2017 Inactive acyclovir 5 % topical ointment RxNorm: 183469 1 Unit Dose TOP Q 6H as needed 03/05/2018 11/25/2018 Inactive Protonix 40 mg tablet,delayed release RxNorm: 684322 1 Tablet(s ) PO QD 12/17/2017 12/22/2018 Inactive simvastatin 20 mg tablet RxNorm: 575752 TAKE ONE TABLET BY MOUT H ONCE DAILY 12/17/2017 09/27/2018 Inactive Celebrex 200 mg capsule RxNorm: 575269 TAKE ONE CAPSULE BY MOUT H ONCE DAILY 10/30/2017 04/29/2018 Inactive Synthroid 88 mcg tablet RxNorm: 720329 1 Tablet(s) PO QD 09/19/2017 0 03/12/2018 Inactive Synthroid 88 mcg tablet RxNorm: 964574 1 Tablet(s) PO QD Needs updated labs 09/19/2017 10/24/2018 Inactive Synthroid 88 mcg tablet RxNorm: 769793 1 Tablet(s) PO QD 06/20/2017 1 11/18/2016 Inactive simvastatin 20 mg tablet RxNorm: 043241 1 Tablet(s) PO QD 06/15/2017 09/12/2017 Inactive simvastatin 20 mg tablet RxNorm: 310374 1 Tablet(s) PO QD 06/15/2017 06/14/2017 Inactive metoprolol succinate ER 25 mg tablet,extended release 24 hr RxNorm: 874733 1 Tablet(s) PO QD 06/14/2017 07/23/2017 Inactive Valtrex 1 gram tablet RxNorm: 745215 1 Tablet(s) PO TID 06/01/2017 Inactive Celebrex 200 mg capsule RxNorm: 557239 1 Capsule(s) PO QD 05/01/2017 10/27/2017 Inactive Toprol XL 25 mg tablet,extended release RxNorm: 979724 1/2 Tabl et(s) PO QD 04/12/2017 06/13/2017 Inactive simvastatin 20 mg tablet RxNorm: 892290 1 Tablet(s) PO QD 03/19/2017 06/14/2017 Inactive Synthroid 88 mcg tablet RxNorm: 940481 1 Tablet(s) PO QD 03/14/2017 0 06/20/2017 Inactive aspirin 81 mg chewable tablet RxNorm: 106197 1 Tablet(s) PO QD /02/201704/21/2018 Inactive simvastatin 20 mg tablet RxNorm: 404174 TAKE ONE TABLET BY MOUT H ONCE DAILY 12/19/2016 03/19/2017 Inactive gabapentin 300 mg capsule RxNorm: 874118 1 Capsule(s) PO QHS 201603/29/2017 Inactive Protonix 40 mg tablet,delayed release RxNorm: 342558 TA KE ONE TABLET BY MOUTH ONCE DAILY 12/14/2016 12/08/2017 Inactive Flonase Allergy Relief 50 mcg/actuation nasal spray,suspensi on RxNorm: 0254274 2 [place] NASAL QHS 11/02/2016 12/17/2016 Inactive clotrimazole-betamethasone 1 %-0.05 % topical cream RxNorm: 721437 1 Application TOP BID 11/02/2016 11/01/2016 Inactive clotrimazole-betamethasone 1 %-0.05 % topical cream RxNorm: 721899 1 Application TOP BID 11/02/2016 12/17/2016 Inactive Maggi Perles 100 mg capsule RxNorm: 380113 1 Capsule(s) PO TID 0 11/02/2016 12/17/2016 Inactive amoxicillin 500 mg tablet RxNorm: 930508 1 Tablet(s) PO TID 017 11/01/2016 Inactive Toprol XL 25 mg tablet,extended release RxNorm: 851676 TAKE ONE-HALF TABLET BY MOUTH ONCE DAILY 10/19/2016 04/12/2017 Inactive Toprol XL 25 mg tablet,extended release RxNorm: 558969 1/2 Tablet(s) PO QD Due for routine fasting labs and appointment 10/19/2016 01/16/2017 Inactiv e gabapentin 600 mg tablet RxNorm: 212076 1 Tablet(s) PO QHS 07/24/20 16 12/17/2016 Inactive gabapentin 600 mg tablet RxNorm: 858174 TAKE ONE TABLET BY MOUT H AT BEDTIME 07/24/2016 07/23/2016 Inactive simvastatin 20 mg tablet RxNorm: 059824 TAKE ONE TABLET BY MOUT H ONCE DAILY 06/15/2016 12/11/2016 Inactive Celebrex 200 mg capsule RxNorm: 648168 1 Capsule(s) PO QD 05/10/2016 05/01/2017 Inactive Celebrex 200 mg capsule RxNorm: 128901 1 Capsule(s) PO QD 05/09/2016 05/09/2016 Inactive Synthroid 88 mcg tablet RxNorm: 029023 Tablet(s) 1 Tablet(s) PO QD 03/21/2016 09/16/2016 Inactive Synthroid 88 mcg tablet RxNorm: 538360 1 Tablet(s) PO QD 03/20/2016 0 03/20/2016 Inactive simvastatin 20 mg tablet RxNorm: 737013 TAKE ONE TABLET BY MOUT H ONCE DAILY 03/06/2016 06/03/2016 Inactive meclizine 25 mg tablet RxNorm: 788613 1 Tablet(s) PO TID as nee ded dizziness 02/07/2016 12/17/2016 Inactive Zofran ODT 4 mg disintegrating tablet RxNorm: 637286 1 Tablet(s) PO Q6H as needed for nausea 02/07/2016 12/17/2016 Inactive gabapentin 600 mg tablet RxNorm: 599147 TAKE ONE TABLET BY MOUT H AT BEDTIME 01/20/2016 07/17/2016 Inactive Synthroid 88 mcg tablet RxNorm: 760595 1 Tablet(s) PO QD 12/27/2015 0 03/19/2016 Inactive simvastatin 20 mg tablet RxNorm: 595424 1 Tablet(s) PO QD 12/06/2015 03/04/2016 Inactive Protonix 40 mg tablet,delayed release RxNorm: 962547 1 Tablet(s ) PO QD 12/06/2015 12/13/2016 Inactive Celebrex 200 mg capsule RxNorm: 535001 1 Capsule(s) PO QD 11/03/2015 05/10/2016 Inactive Celebrex 200 mg capsule RxNorm: 079662 1 Capsule(s) PO QD 11/03/2015 11/02/2015 Inactive simvastatin 20 mg tablet RxNorm: 960159 1 Tablet(s) PO QD 09/06/2015 12/04/2015 Inactive Gralise 600 mg tablet,extended release RxNorm: 7252636 1 Tablet( s) PO QD 08/23/2015 10/18/2015 Inactive Synthroid 88 mcg tablet RxNorm: 100514 1 Tablet(s) PO QD 06/30/2015 0 09/27/2015 Inactive simvastatin 20 mg tablet RxNorm: 994762 1 Tablet(s) PO QD 06/07/2015 09/04/2015 Inactive Synthroid 88 mcg tablet RxNorm: 217948 1 Tablet(s) PO QD 06/07/2015 1 Inactive Celebrex 200 mg capsule RxNorm: 564014 1 Capsule(s) PO QD 06/07/2015 11/02/2015 Inactive Protonix 40 mg tablet,delayed release RxNorm: 508737 1 Tablet(s ) PO QD 06/07/2015 12/03/2015 Inactive Toprol XL 25 mg tablet,extended release RxNorm: 069034 1/2 Tabl et(s) PO QD 04/13/2015 10/09/2015 Inactive [SAVINGS FOR UNINSUR ED PATIENTS -- BIN:[id number], PCN: ASPROD1, Group: [id number], ID# [id number], Process claim through [facility], for questions: . THIS IS NOT INSURANCE.] Synthroid 88 mcg tablet RxNorm: 548666 1 Tablet(s) PO Q D TAKE ONE TABLET BY MOUTH ONCE DAILY 03/29/2015 06/30/2015 Inactive Celebrex 200 mg capsule RxNorm: 313368 1 Capsule(s) PO QD 03/22/2015 06/06/2015 Inactive Celebrex 200 mg capsule RxNorm: 071146 1 Capsule(s) PO QD 02/22/2015 03/21/2015 Inactive Celebrex 200 mg capsule RxNorm: 173121 1 Capsule(s) PO QD 01/21/2015 02/21/2015 Inactive Synthroid 88 mcg tablet RxNorm: 357643 1 Tablet(s) PO Q D TAKE ONE TABLET BY MOUTH ONCE DAILY 12/21/2014 03/29/2015 Inactive meloxicam 15 mg tablet RxNorm: 714691 1 Tablet(s) PO QD 12/09/2014 Inactive [SAVINGS FOR NON-COVERED DRUGS -- BIN:00 [id number], PCN: ASPROD1, Group: [id number], ID# [id number], Questions: . THIS IS NOT INSURANCE.] Protonix 40 mg tablet,delayed release RxNorm: 823841 1 Tablet(s ) PO QD 12/08/2014 06/05/2015 Inactive Protonix 40 mg tablet,delayed release RxNorm: 936615 1 Tablet(s ) PO QD 12/07/2014 12/07/2014 Inactive simvastatin 20 mg tablet RxNorm: 170085 TAKE ONE TABLET BY MOUT H ONCE DAILY 11/30/2014 05/28/2015 Inactive clotrimazole-betamethasone 1 %-0.05 % topical cream RxNorm: 3087 14 TOP BID 11/30/2014 11/01/2016 Inactive acetic acid 2 % ear solution RxNorm: 119927 5 Drop(s) OTIC Left ear QID 11/30/2014 12/06/2014 Inactive meloxicam 15 mg tablet RxNorm: 852271 1 Tablet(s) PO QD 10/30/2014 Inactive [SAVINGS FOR NON-COVERED DRUGS -- BIN:[id number], PCN: [id number], Group: XXXXX, ID# [id number], Questions: . THIS IS NOT INSURANCE.] meloxicam 15 mg tablet RxNorm: 069826 1 Tablet(s) PO QD 10/30/2014 Inactive Toprol XL 25 mg tablet,extended release RxNorm: 785114 1/2 Tabl et(s) PO QD 10/12/2014 04/09/2015 Inactive [SAVINGS FOR UNINSUR ED PATIENTS -- BIN:[id number], PCN: [id number], Group: [id number], ID# [id number], Process claim through [facility], for questions: . THIS IS NOT INSURANCE.] Synthroid 88 mcg tablet RxNorm: 343279 1 Tablet(s) PO Q D TAKE ONE TABLET BY MOUTH ONCE DAILY 09/21/2014 12/19/2014 Inactive Protonix 40 mg tablet,delayed release RxNorm: 040580 1 Tablet(s ) PO QD 07/23/2014 11/19/2014 Inactive Synthroid 88 mcg tablet RxNorm: 265698 TAKE ONE TABLET BY MOUTH ONCE DAILY 06/23/2014 09/21/2014 Inactive omeprazole 40 mg capsule,delayed release RxNorm: 686592 1 Capsu le(s) PO QD 06/16/2014 07/22/2014 Inactive [SAVINGS FOR UNINSUR ED PATIENTS -- [id number], PCN: [id number], Group: [id number], ID# [id number], Process claim through [facility], for questions: . THIS IS NOT INSURANCE.] Toprol XL 25 mg tablet,extended release RxNorm: 680385 1/2 Tabl et(s) PO QD 04/13/2014 10/12/2014 Inactive Celebrex 200 mg capsule RxNorm: 205470 1 Capsule(s) PO QD for pain 03/16/2014 10/29/2014 Inactive Medrol ([place]) 4 mg tablets in a dose pack RxNorm: 790560 Tablet(s) PO as directed 03/09/2014 07/22/2014 Inactive Synthroid 88 mcg tablet RxNorm: 783114 1 Tablet(s) PO QD 02/17/2014 0 06/23/2014 Inactive Celebrex 200 mg capsule RxNorm: 030893 1 Capsule(s) PO QD for pain 02/17/2014 03/15/2014 Inactive omeprazole 40 mg capsule,delayed release RxNorm: 037508 1 Capsu le(s) PO QD 02/05/2014 06/16/2014 Inactive Protonix 40 mg tablet,delayed release RxNorm: 786879 1 Tablet(s ) PO QD 01/23/2014 05/10/2020 Inactive Toprol XL 25 mg tablet,extended release RxNorm: 797268 1/2 Tablet(s) PO QD TAKE ONE-HALF TABLET BY MOUTH EVERY DAY 01/12/2014 04/13/2014 Inactive Synthroid 88 mcg tablet RxNorm: 228763 Tablet(s) PO MANDY E ONE TABLET BY MOUTH EVERY DAY 11/17/2013 02/17/2014 Inactive Celebrex 200 mg capsule RxNorm: 847565 1 Capsule(s) PO QD for pain 10/20/2013 02/17/2014 Inactive Toprol XL 25 mg tablet,extended release RxNorm: 089674 1/2 Tabl et(s) PO QD 07/17/2013 01/12/2014 Inactive Nexium 40 mg capsule,delayed release RxNorm: 219695 1 C apsule(s) PO QD Generic ok 07/14/2013 09/21/2013 Inactive Celebrex 200 mg capsule RxNorm: 639220 1 Capsule(s) PO QD for pain 06/19/2013 10/20/2013 Inactive Synthroid 88 mcg tablet RxNorm: 952705 1 Tablet(s) PO QD 05/13/2013 0 11/17/2013 Inactive TAKE ONE TABLET BY MOUTH EVERY DAY Nexium 40 mg capsule,delayed release RxNorm: 622869 Cap maureen(s) PO TAKE ONE CAPSULE BY MOUTH EVERY DAY 05/05/2013 07/13/2013 Inactive Celebrex 200 mg capsule RxNorm: 673938 1 Capsule(s) PO QD for pain 04/07/2013 06/19/2013 Inactive Esgic-Plus 50 mg-500 mg-40 mg capsule RxNorm: 813889 1 Capsule(s) PO Q4-6H prn headache 04/07/2013 04/07/2013 Inactive Toprol XL 25 mg tablet,extended release RxNorm: 882182 1/2 Tabl et(s) PO QD 12/16/2012 06/13/2013 Inactive Nexium 40 mg capsule,delayed release RxNorm: 341400 1 Capsule(s ) PO QD 11/20/2012 03/19/2013 Inactive Synthroid 88 mcg tablet RxNorm: 680732 1 Tablet(s) PO QD 10/28/2012 0 04/25/2013 Inactive TAKE ONE TABLET BY MOUTH EVERY DAY Toprol XL 25 mg tablet,extended release RxNorm: 086146 1/2 Tabl et(s) PO QD 09/25/2012 12/16/2012 Inactive Synthroid 88 mcg tablet RxNorm: 037690 1 Tablet(s) PO QD 04/22/2012 0 10/28/2012 Inactive TAKE ONE TABLET BY MOUTH EVERY DAY Nexium 40 mg capsule,delayed release RxNorm: 372993 1 Capsule(s ) PO QD 04/16/2012 11/20/2012 Inactive Esgic-Plus 50 mg-500 mg-40 mg capsule RxNorm: 728830 1 Capsule(s) PO Q4-6H prn headache 03/28/2012 04/06/2013 Inactive Toprol XL 25 mg tablet,extended release RxNorm: 879546 1/2 Tabl et(s) PO QD 03/07/2012 09/25/2012 Inactive Toprol XL 25 mg 24 hr Tab RxNorm: 627383 1/2 Tablet(s) PO QD 201101/03/2012 Inactive Three times a week Synthroid 88 mcg Tab RxNorm: 832111 1 Tablet(s) PO QD 10/10/201112/23 Inactive TAKE ONE TABLET BY MOUTH EVERY DAY prednisone 20 mg Tab RxNorm: 309769 1 Tablet(s) PO BID 09/13/2011 Inactive doxycycline 100 mg Cap RxNorm: 4434240 1 Capsule(s) PO BID 09/13/2009/22/2011 Inactive cefdinir 300 mg Cap RxNorm: 011478 1 Capsule(s) PO BID 08/07/2011 Inactive Synthroid 88 mcg Tab RxNorm: 709789 1 Tablet(s) PO QD 07/19/201109/24 Inactive TAKE ONE TABLET BY MOUTH EVERY DAY Synthroid 88 mcg Tab RxNorm: 743463 1 Tablet(s) PO QD 07/19/201103/26 Inactive TAKE ONE TABLET BY MOUTH EVERY DAY Synthroid 88 mcg Tab RxNorm: 692785 1 Tablet(s) PO QD 07/18/201106/25 Inactive TAKE ONE TABLET BY MOUTH EVERY DAY Synthroid 88 mcg Tab RxNorm: 720518 1 Tablet(s) PO QD 05/15/201106/25 Inactive TAKE ONE TABLET BY MOUTH EVERY DAY Synthroid 88 mcg Tab RxNorm: 097960 1 Tablet(s) PO QD 03/15/201104/25 Inactive Synthroid 75 mcg Tab RxNorm: 439172 1 Tablet(s) PO QD 01/04/201102/22 Inactive Synthroid 50 mcg Tab RxNorm: 685500 1 Tablet(s) PO QD G eneric okay. Please explain to patient that she may see more variation in her thyroid labs and increased symptoms. 07/07/2010 03/14/2011 Inactive Prednisone 20 mg Tab RxNorm: 388103 1 Tablet(s) PO BID 02/14/2010 Inactive Flexeril 10 mg Tab RxNorm: 792390 1 Tablet(s) PO TID 02/07/201002/13 Inactive Synthroid 25 mcg Tab RxNorm: 506919 1 Tablet(s) PO QD 12/29/200902/23 Inactive Synthroid 50 mcg Tab RxNorm: 636435 1 Tablet(s) PO QD 12/29/200911/2009 Inactive Vitamin D3 2,000 unit tablet RxNorm: 260250 1 Tablet(s) PO QAM 2014 Active coenzyme Q10 200 mg tablet RxNorm: 343715 1 Tablet(s) PO QD 09/01/2014 Active Trelegy Ellipta inhalation RxNorm: 3080353 inhalation 05/30/2022 Active Vitamin B12 1000mcg Tablet RxNorm: 1/2 Tablet(s) PO QD 04/03/2017 Active gabapentin 600 mg tablet RxNorm: 694401 1 Tablet(s) PO QPM 01/20/20 16 01/19/2016 Inactive Fish Oil 1,000 mg capsule RxNorm: 1 Capsule(s) PO QHS 10/18/2017 0 10/17/2017 Inactive Toprol XL 25 mg 24 hr Tab RxNorm: 489320 /2 Tablet(s) PO QD 201103/06/2012 Inactive turmeric root extract oral RxNorm: 2967571 oral 05/26/20152014 Inactive Esgic 50 mg-325 mg-40 mg tablet RxNorm: 013753 1 Tablet (s) PO Q4H as needed for pain 05/26/2015 05/25/2015 Inactive Synthroid 88 mcg Tab RxNorm: 694410 1 Tablet(s) PO QD 03/15/201102/23 Inactive Calcium with Vitamin D 600 mg-400 unit Tab RxNorm: 467342 1 Tab let(s) PO BID 03/31/2013 03/30/2013 Inactive Synthroid 50 mcg Tab RxNorm: 697893 1 Tablet(s) PO QD 03/16/201002/23 Inactive Celebrex 200 mg capsule RxNorm: 914141 1 Capsule(s) PO QD 01/21/2015 01/20/2015 Inactive betamethasone dipropionate 0.05 % topical cream RxNorm: 2389 20 1 Application TOP BID 05/06/2018 05/05/2018 Inactive Protonix 40 mg tablet,delayed release RxNorm: 831951 1 Tablet(s ) PO QD 01/23/2014 01/23/2014 Inactive Calcium + D 600 mg (1,500)-200 unit Tab RxNorm: 743143 1 Tablet (s) PO QD 01/04/2011 01/03/2011 Inactive simvastatin 20 mg tablet RxNorm: 837725 1 Tablet(s) PO QD 11/30/2014 11/29/2014 Inactive Fish Oil 1,000 mg capsule RxNorm: 2 Capsule(s) PO QD 05/26/2015 Inactive Gralise 600 mg tablet,extended release RxNorm: 5107659 1 Tablet( s) PO QD 08/23/2015 08/22/2015 Inactive Vitamin B12 1000mcg Tablet RxNorm: 1 Tablet(s) PO QD 04/03/2017 Inactive Esgic-Plus 50 mg-500 mg-40 mg Cap RxNorm: 549948 1 Caps ule(s) PO Q4-6H prn headache 03/28/2012 03/27/2012 Inactive Cozaar 50 mg tablet RxNorm: 623751 1 Tablet(s) PO QHS 05/24/201804/26 Inactive Toprol XL 25 mg 24 hr Tab RxNorm: 427676 2 Tablet(s) PO Three t imes a week 01/01/2012 12/31/2011 Inactive metoprolol succinate ER 25 mg tablet,extended release 24 hr RxNorm: 134029 1 Tablet(s) PO TID 10/18/2017 10/17/2017 Inactive metoprolol succinate ER 50 mg tablet,extended release 24 hr RxNorm: 416497 1.5 Tablet(s) PO QAM and tablet at bedtime 05/06/2018 05/05/2018 Inactive Esgic-Plus 50 mg-500 mg-40 mg Cap RxNorm: 782095 1 Capsule(s) P O Q4-6H 08/07/2011 08/06/2011 Inactive metoprolol succinate ER 50 mg tablet,extended release 24 hr RxNorm: 878831 1 Tablet(s) PO QD 04/22/2018 04/21/2018 Inactive Multivitamin & Mineral Formula Tab RxNorm: 1 Tablet(s) PO QD 0 03/31/2013 03/30/2013 Inactive metoprolol succinate ER 50 mg tablet,extended release 24 hr RxNorm: 582706 2 Tablet(s) PO QAM and 1.5 tablets (75mg) at bedtime 05/01/2019 9 Inactive Fish Oil 1,000 mg Cap RxNorm: 1 Capsule(s) PO QD 03/31/20132012 Inactive pantoprazole 40 mg tablet,delayed release RxNorm: 527071 1 Tabl et(s) PO QD 02/05/2014 02/04/2014 Inactive Eliquis 2.5 mg tablet RxNorm: 4813986 1 Tablet(s) PO BID 07/07/2019 1 Inactive Medrol 4 mg Tab RxNorm: 606233 Tablet(s) PO as directed 03/28/2012 Inactive Synthroid 75 mcg Tab RxNorm: 827226 1 Tablet(s) PO QD 02/14/201001/23 Inactive aspirin 81 mg tablet RxNorm: 262542 1 Tablet(s) PO QD 05/26/2015 090 09/2014 Inactive meclizine 25 mg tablet RxNorm: 169419 1 Tablet(s) PO TID as needed 11/26/2018 11/25/2018 Inactive metoprolol succinate ER 50 mg tablet,extended release 24 hr RxNorm: 954573 1 Tablet(s) PO QAM and 2 tablets in the evening 05/08/2019 05/07/2019 In active Aspirin 81 mg Tab RxNorm: 728497 1 Tablet(s) PO QD 03/31/2013 013 Inactive Vitamin D3 1,000 unit capsule RxNorm: 938051 1 Capsule(s) PO QD 04/201303/30/2013 Inactive Medication Administered No Medication Administered data Immunizations Vaccine Codes Dose Date Status Pneumococcal CVX: 133 0.5 ml 05/26/2015 Results Observation Observation Code Item Item Code Result Date S ervice Location GLYCOSYLATED HEMOGLOBIN TEST 51249 Hgb A1c 37697-8 6.0 % 0 03/01/2022 Unknown MEAN GLUC 6415888 Calc Mean Gluc 126 mg/dL 03/01/2022 Unkn own COMPREHENSIVE METABOLIC 18858 AST 16 U/L 2021 Unknown COMPREHENSIVE METABOLIC 68104 ALT 15 U/L 2021 Unknown COMPREHENSIVE METABOLIC 07849 BUN 18 mg/dL 2021 Unknown COMPREHENSIVE METABOLIC 88742 ALBUMIN 4.3 g/dL 2021 Unknown COMPREHENSIVE METABOLIC 62119 CHLORIDE 104 mmol/L 02/28 Unknown COMPREHENSIVE METABOLIC 57309 Bili Total 0.8 mg/dL 02/28 Unknown COMPREHENSIVE METABOLIC 19801 ALK PHOS 93 U/L 2021 Unknown COMPREHENSIVE METABOLIC 16793 SODIUM 143 mmol/L 02/28 Unknown COMPREHENSIVE METABOLIC 43865 CREATININE 0.82 mg/dL 03/2022 Unknown COMPREHENSIVE METABOLIC 77491 CALCIUM 9.8 mg/dL 2021 Unknown COMPREHENSIVE METABOLIC 00579 POTASSIUM 4.2 mmol/L 02/28 Unknown COMPREHENSIVE METABOLIC 23582 Total Protein 7.7 g/dL Unknown COMPREHENSIVE METABOLIC 94892 Glucose 116 mg/dL 2021 Unknown COMPREHENSIVE METABOLIC 41787 Bicarbonate 26 mmol/L 03/2022 Unknown COMPREHENSIVE METABOLIC 10855 AGAP 13 mmol/L 2021 Unknown FREE T4 04811 T4 Free 1.15 ng/dL 02/28/2022 Unknown THYROID STIMULATING HORMONE 41922 TSH 3.512 uIU/mL 02/28/2022 Unknown L[facility] 51609 Cholesterol 158 mg/dL 02/28/2022 Unkno wn L[facility] 53059 Triglyceride 78 mg/dL 02/28/2022 Unkn own L[facility] GROUP 96347 HDL CHOLESTEROL 66 mg/dL 02/28/2022 U nknown L[facility] GROUP 55274 Chol/HDL Ratio 2.39 ratio 02/28/2022 U nknown LIP[facility] GROUP 76246 NON-HDL Chol 92 mg/dL 02/28/2022 Unkn own L[facility] GROUP 48744 LDL Cholesterol 76 mg/dL 02/28/2022 U nknown COMPLETE BLOOD COUNT [id number] WBC 6.9 10e9/L 02/29/20 22 Unknown COMPLETE BLOOD COUNT [id number] RBC 4.61 10e12/L 2021 Unknown COMPLETE BLOOD COUNT [id number] HEMOGLOBIN 13.0 g/dL 02/29/20 22 Unknown COMPLETE BLOOD COUNT [id number] HEMATOCRIT 42.1 % 02/29/20 22 Unknown COMPLETE BLOOD COUNT [id number] MCV 91.3 fL 2 Unknown COMPLETE BLOOD COUNT [id number] MCH 28.2 pg 2 Unknown COMPLETE BLOOD COUNT 8566215 MCHC 30.9 g/dL 2 Unknown COMPLETE BLOOD COUNT [id number] PLATELET COUNT 276 10e9/L 03/2022 Unknown COMPLETE BLOOD COUNT [id number] Mean Plt Volume 10.6 fL 03/2022 Unknown COMPLETE BLOOD COUNT [id number] NRBC Absolute 0.00 10e9/L 03/2022 Unknown COMPLETE BLOOD COUNT 6648711 Neut Auto 53.0 % 2 Unknown COMPLETE BLOOD COUNT 9129033 NRBC/100 WBC 0.0 2021 Unknown COMPLETE BLOOD COUNT 4854075 Lymph Auto 32.0 % 02/29/20 22 Unknown COMPLETE BLOOD COUNT [id number] [place] Auto 11.0 % 2 Unknown COMPLETE BLOOD COUNT [id number] RDW 14.4 % 2 Unknown COMPLETE BLOOD COUNT [id number] Eos Auto 2.5 % 2 Unknown COMPLETE BLOOD COUNT 1366533 Baso Auto 1.4 % 2 Unknown COMPLETE BLOOD COUNT 0332342 Neutrophil Abs 3.66 10e9/L Unknown COMPLETE BLOOD COUNT [id number] Imm Gran Auto 0.1 % 02/28 Unknown COMPLETE BLOOD COUNT [id number] Lymphocyte Abs 2.21 10e9/L Unknown COMPLETE BLOOD COUNT [id number] Monocyte Abs 0.76 10e9/L 03/2022 Unknown COMPLETE BLOOD COUNT [id number] Eosinophil Abs 0.17 10e9/L Unknown COMPLETE BLOOD COUNT [id number] RDW-SD 47.8 fL 2 Unknown COMPLETE BLOOD COUNT [id number] Basophil Abs 0.10 10e9/L 03/2022 Unknown COMPLETE BLOOD COUNT [id number] Imm Gran Abs 0.01 10e9/L 03/2022 Unknown GFR CALC 2241927 GFR >60 mL/min 02/28/2022 Unknown THYROID STIMULATING HORMONE 37359 TSH 3.017 uIU/mL 01/31/2021 Unknown COMPLETE BLOOD COUNT [id number] WBC 6.1 10e9/L 02/01/20 21 Unknown COMPLETE BLOOD COUNT [id number] RBC 4.22 10e12/L 2020 Unknown COMPLETE BLOOD COUNT [id number] HEMOGLOBIN 12.1 g/dL 02/01/20 21 Unknown COMPLETE BLOOD COUNT [id number] HEMATOCRIT 39.5 % 02/01/20 21 Unknown COMPLETE BLOOD COUNT [id number] MCV 93.6 fL 1 Unknown COMPLETE BLOOD COUNT [id number] MCH 28.7 pg 1 Unknown COMPLETE BLOOD COUNT [id number] MCHC 30.6 g/dL 1 Unknown COMPLETE BLOOD COUNT [id number] PLATELET COUNT 271 10e9/L 06/2021 Unknown COMPLETE BLOOD COUNT [id number] Mean Plt Volume 11.0 fL 06/2021 Unknown COMPLETE BLOOD COUNT [id number] Neut Auto 57.3 % 1 Unknown COMPLETE BLOOD COUNT [id number] Lymph Auto 28.3 % 02/01/20 21 Unknown COMPLETE BLOOD COUNT 0719414 [place] Auto 10.9 % 1 Unknown COMPLETE BLOOD COUNT 6366488 RDW 14.4 % 1 Unknown COMPLETE BLOOD COUNT [id number] Eos Auto 2.8 % 1 Unknown COMPLETE BLOOD COUNT 0623488 Baso Auto 0.7 % 1 Unknown COMPLETE BLOOD COUNT [id number] Neutrophil Abs 3.50 10e9/L Unknown COMPLETE BLOOD COUNT [id number] Lymphocyte Abs 1.73 10e9/L Unknown COMPLETE BLOOD COUNT [id number] Monocyte Abs 0.66 10e9/L 01/22 Unknown COMPLETE BLOOD COUNT [id number] Eosinophil Abs 0.17 10e9/L Unknown COMPLETE BLOOD COUNT [id number] RDW-SD 47.4 fL Unknown COMPLETE BLOOD COUNT [id number] Basophil Abs 0.04 10e9/L 01/22 Unknown GLYCOSYLATED HEMOGLOBIN TEST 22291 Hgb A1c 84512-7 5.9 % 0 01/31/2021 Unknown LIPID GROUP 58117 Cholesterol 151 mg/dL 01/31/2021 Unkno wn LIPID GROUP 89099 Triglyceride 68 mg/dL 01/31/2021 Unkn own LIPID GROUP 53590 HDL CHOLESTEROL 64 mg/dL 01/31/2021 U nknown LIPID GROUP 27672 Chol/HDL Ratio 2.36 ratio 01/31/2021 U nknown LIPID GROUP 84384 NON-HDL Chol 87 mg/dL 01/31/2021 Unkn own LIPID GROUP 99099 LDL Cholesterol 73 mg/dL 01/31/2021 U nknown MEAN GLUC 6801640 Calc Mean Gluc 123 mg/dL 01/31/2021 Unkn own FREE T4 27025 T4 Free 1.11 ng/dL 01/31/2021 Unknown COMPREHENSIVE METABOLIC 13084 AST 16 U/L 2020 Unknown COMPREHENSIVE METABOLIC 97327 ALT 12 U/L 2020 Unknown COMPREHENSIVE METABOLIC 04618 BUN 14 mg/dL 2020 Unknown COMPREHENSIVE METABOLIC 91342 ALBUMIN 4.3 g/dL 2020 Unknown COMPREHENSIVE METABOLIC 07929 CHLORIDE 106 mmol/L 01/31 Unknown COMPREHENSIVE METABOLIC 58218 Bili Total 0.9 mg/dL 01/31 Unknown COMPREHENSIVE METABOLIC 65517 ALK PHOS 96 U/L 2020 Unknown COMPREHENSIVE METABOLIC 38063 SODIUM 144 mmol/L 01/31 Unknown COMPREHENSIVE METABOLIC 17810 CREATININE 0.77 mg/dL 01/22 Unknown COMPREHENSIVE METABOLIC 83575 CALCIUM 9.4 mg/dL 2020 Unknown COMPREHENSIVE METABOLIC 54031 POTASSIUM 4.2 mmol/L 01/31 Unknown COMPREHENSIVE METABOLIC 14789 Total Protein 7.4 g/dL Unknown COMPREHENSIVE METABOLIC 65794 Glucose 94 mg/dL 2020 Unknown COMPREHENSIVE METABOLIC 39348 Bicarbonate 30 mmol/L 01/22 Unknown COMPREHENSIVE METABOLIC 57077 AGAP 8 mmol/L 2020 Unknown GFR CALC 6706807 GFR Non Afr Amr >60 mL/min 01/31/2021 Un known GFR CALC 3158427 GFR Afr Amr >60 mL/min 01/31/2021 Unknow n COMPLETE BLOOD COUNT 0284024 WBC 6.9 10e9/L 01/05/20 20 Unknown COMPLETE BLOOD COUNT 8807772 RBC 4.20 10e12/L 2019 Unknown COMPLETE BLOOD COUNT 6304624 HEMOGLOBIN 12.2 g/dL 01/05/20 20 Unknown COMPLETE BLOOD COUNT [id number] HEMATOCRIT 39.2 % 01/05/20 20 Unknown COMPLETE BLOOD COUNT 6542124 MCV 93.3 fL 0 Unknown COMPLETE BLOOD COUNT [id number] MCH 29.0 pg 0 Unknown COMPLETE BLOOD COUNT 4102227 MCHC 31.1 g/dL 0 Unknown COMPLETE BLOOD COUNT 0001875 PLATELET COUNT 272 10e9/L Unknown COMPLETE BLOOD COUNT 4560452 Mean Plt Volume 11.0 fL Unknown COMPLETE BLOOD COUNT 9202086 Neut Auto 61.4 % 0 Unknown COMPLETE BLOOD COUNT 4265773 Lymph Auto 22.4 % 01/05/20 20 Unknown COMPLETE BLOOD COUNT 3074706 [place] Auto 11.7 % 0 Unknown COMPLETE BLOOD COUNT 6904104 RDW 14.6 % 0 Unknown COMPLETE BLOOD COUNT 3136134 Eos Auto 3.6 % 0 Unknown COMPLETE BLOOD COUNT 0278706 Baso Auto 0.9 % 0 Unknown COMPLETE BLOOD COUNT 5970903 Neutrophil Abs 4.24 10e9/L Unknown COMPLETE BLOOD COUNT 5375669 Lymphocyte Abs 1.55 10e9/L Unknown COMPLETE BLOOD COUNT 4291396 Monocyte Abs 0.81 10e9/L 12/23 Unknown COMPLETE BLOOD COUNT 9637161 Eosinophil Abs 0.25 10e9/L Unknown COMPLETE BLOOD COUNT 8532736 RDW-SD 48.2 fL 0 Unknown COMPLETE BLOOD COUNT 1827342 Basophil Abs 0.06 10e9/L 12/23 Unknown COMPREHENSIVE METABOLIC 02526 AST 17 U/L 2019 Unknown COMPREHENSIVE METABOLIC 88675 ALT 12 U/L 2019 Unknown COMPREHENSIVE METABOLIC 72028 BUN 18 mg/dL 2019 Unknown COMPREHENSIVE METABOLIC 26806 ALBUMIN 4.5 g/dL 2019 Unknown COMPREHENSIVE METABOLIC 29479 CHLORIDE 101 mmol/L 01/04 Unknown COMPREHENSIVE METABOLIC 00315 Bili Total 0.8 mg/dL 01/04 Unknown COMPREHENSIVE METABOLIC 65149 ALK PHOS 76 U/L 2019 Unknown COMPREHENSIVE METABOLIC 74227 SODIUM 141 mmol/L 01/04 Unknown COMPREHENSIVE METABOLIC 78169 CREATININE 1.02 mg/dL 12/23 Unknown COMPREHENSIVE METABOLIC 41502 CALCIUM 9.5 mg/dL 2019 Unknown COMPREHENSIVE METABOLIC 90319 POTASSIUM 3.9 mmol/L 01/04 Unknown COMPREHENSIVE METABOLIC 73277 Total Protein 7.4 g/dL Unknown COMPREHENSIVE METABOLIC 51172 Glucose 89 mg/dL 2019 Unknown COMPREHENSIVE METABOLIC 70287 Bicarbonate 28 mmol/L 12/23 Unknown COMPREHENSIVE METABOLIC 81973 AGAP 12 mmol/L 2019 Unknown LIPASE 35366 Lipase Lvl 34 IU/L 01/05/2020 Unknown THYROID STIMULATING HORMONE 77519 TSH 3.767 uIU/mL 01/05/2020 Unknown AMYLASE 93740 Amylase Lvl 60 IU/L 01/05/2020 Unknown GFR CALC 5973080 GFR Non Afr Amr 52 mL/min 01/05/2020 Unk nown GFR CALC 5098771 GFR Afr Amr >60 mL/min 01/05/2020 Unknow n FREE T4 39784 T4 Free 1.11 ng/dL 01/05/2020 Unknown GFR CALC 2514866 GFR Non Afr Amr 59 mL/min 12/05/2019 Unk nown GFR CALC 9165947 GFR Afr Amr >60 mL/min 12/05/2019 Unknow n COMPREHENSIVE METABOLIC 44436 AST 15 U/L 2019 Unknown COMPREHENSIVE METABOLIC 03429 ALT 12 U/L 2019 Unknown COMPREHENSIVE METABOLIC 22075 BUN 19 mg/dL 2019 Unknown COMPREHENSIVE METABOLIC 88041 ALBUMIN 4.2 g/dL 2019 Unknown COMPREHENSIVE METABOLIC 36491 CHLORIDE 104 mmol/L 12/04 Unknown COMPREHENSIVE METABOLIC 20629 Bili Total 1.0 mg/dL 12/04 Unknown COMPREHENSIVE METABOLIC 76250 ALK PHOS 78 U/L 2019 Unknown COMPREHENSIVE METABOLIC 66439 SODIUM 145 mmol/L 12/04 Unknown COMPREHENSIVE METABOLIC 32468 CREATININE 0.91 mg/dL 11/22 Unknown COMPREHENSIVE METABOLIC 91268 CALCIUM 9.3 mg/dL 2019 Unknown COMPREHENSIVE METABOLIC 18496 POTASSIUM 3.6 mmol/L 12/04 Unknown COMPREHENSIVE METABOLIC 03940 Total Protein 7.0 g/dL Unknown COMPREHENSIVE METABOLIC 54701 Glucose 96 mg/dL 2019 Unknown COMPREHENSIVE METABOLIC 14381 Bicarbonate 28 mmol/L 11/22 Unknown COMPREHENSIVE METABOLIC 74562 AGAP 13 mmol/L 2019 Unknown COMPREHENSIVE METABOLIC 01466 AST 15 U/L 2019 Unknown COMPREHENSIVE METABOLIC 58101 ALT 11 U/L 2019 Unknown COMPREHENSIVE METABOLIC 74712 BUN 14 mg/dL 2019 Unknown COMPREHENSIVE METABOLIC 25211 ALBUMIN 4.3 g/dL 2019 Unknown COMPREHENSIVE METABOLIC 81735 CHLORIDE 106 mmol/L 11/05 Unknown COMPREHENSIVE METABOLIC 06643 Bili Total 0.7 mg/dL 11/05 Unknown COMPREHENSIVE METABOLIC 92159 ALK PHOS 80 U/L 2019 Unknown COMPREHENSIVE METABOLIC 39299 SODIUM 145 mmol/L 11/05 Unknown COMPREHENSIVE METABOLIC 32191 CREATININE 0.97 mg/dL 10/25 Unknown COMPREHENSIVE METABOLIC 65049 CALCIUM 9.5 mg/dL 2019 Unknown COMPREHENSIVE METABOLIC 94175 POTASSIUM 3.9 mmol/L 11/05 Unknown COMPREHENSIVE METABOLIC 37577 Total Protein 7.0 g/dL Unknown COMPREHENSIVE METABOLIC 54774 Glucose 103 mg/dL 2019 Unknown COMPREHENSIVE METABOLIC 57251 Bicarbonate 29 mmol/L 10/25 Unknown COMPREHENSIVE METABOLIC 19407 AGAP 10 mmol/L 2019 Unknown GFR CALC 1003330 GFR Non Afr Amr 55 mL/min 11/05/2019 Unk nown GFR CALC 5398400 GFR Afr Amr >60 mL/min 11/05/2019 Unknow n FREE T4 25507 T4 Free 1.34 ng/dL 10/21/2019 Unknown COMPLETE BLOOD COUNT 7876482 WBC 7.2 10e9/L 10/21/19 20 Unknown COMPLETE BLOOD COUNT [id number] RBC 4.17 10e12/L 2019 Unknown COMPLETE BLOOD COUNT 9721614 HEMOGLOBIN 12.1 g/dL 10/21/19 20 Unknown COMPLETE BLOOD COUNT 8621176 HEMATOCRIT 39.0 % 10/21/19 20 Unknown COMPLETE BLOOD COUNT 8952720 MCV 93.5 fL 0 Unknown COMPLETE BLOOD COUNT 3256522 MCH 29.0 pg 0 Unknown COMPLETE BLOOD COUNT 1181894 MCHC 31.0 g/dL 0 Unknown COMPLETE BLOOD COUNT 9967383 PLATELET COUNT 239 10e9/L Unknown COMPLETE BLOOD COUNT 8745581 Mean Plt Volume 11.7 fL Unknown COMPLETE BLOOD COUNT 0117576 Neut Auto 63.7 % 0 Unknown COMPLETE BLOOD COUNT 4503233 Lymph Auto 21.0 % 10/21/19 20 Unknown COMPLETE BLOOD COUNT 8984867 [place] Auto 11.1 % 0 Unknown COMPLETE BLOOD COUNT 6147667 RDW 13.6 % 0 Unknown COMPLETE BLOOD COUNT 0582999 Eos Auto 3.6 % 0 Unknown COMPLETE BLOOD COUNT 8190347 Baso Auto 0.6 % 0 Unknown COMPLETE BLOOD COUNT 6160097 Neutrophil Abs 4.59 10e9/L Unknown COMPLETE BLOOD COUNT 8259817 Lymphocyte Abs 1.51 10e9/L Unknown COMPLETE BLOOD COUNT 5083510 Monocyte Abs 0.80 10e9/L 09/25 Unknown COMPLETE BLOOD COUNT 9442815 Eosinophil Abs 0.26 10e9/L Unknown COMPLETE BLOOD COUNT 2037625 RDW-SD 45.1 fL 0 Unknown COMPLETE BLOOD COUNT [id number] Basophil Abs 0.04 10e9/L 09/25 Unknown GFR CALC 9057506 GFR Non Afr Amr 42 mL/min 10/21/2019 Unk nown GFR CALC 0018585 GFR Afr Amr 50 mL/min 10/21/2019 Unknown COMPREHENSIVE METABOLIC 63261 AST 16 U/L 2019 Unknown COMPREHENSIVE METABOLIC 22615 ALT 10 U/L 2019 Unknown COMPREHENSIVE METABOLIC 15067 BUN 20 mg/dL 2019 Unknown COMPREHENSIVE METABOLIC 62651 ALBUMIN 4.4 g/dL 2019 Unknown COMPREHENSIVE METABOLIC 59281 CHLORIDE 102 mmol/L 10/21 Unknown COMPREHENSIVE METABOLIC 04900 Bili Total 0.8 mg/dL 10/21 Unknown COMPREHENSIVE METABOLIC 53253 ALK PHOS 85 U/L 2019 Unknown COMPREHENSIVE METABOLIC 42871 SODIUM 144 mmol/L 10/21 Unknown COMPREHENSIVE METABOLIC 13750 CREATININE 1.24 mg/dL 09/25 Unknown COMPREHENSIVE METABOLIC 24766 CALCIUM 9.8 mg/dL 2019 Unknown COMPREHENSIVE METABOLIC 11503 POTASSIUM 4.2 mmol/L 10/21 Unknown COMPREHENSIVE METABOLIC 47627 Total Protein 7.3 g/dL Unknown COMPREHENSIVE METABOLIC 74510 Glucose 98 mg/dL 2019 Unknown COMPREHENSIVE METABOLIC 39478 Bicarbonate 31 mmol/L 09/25 Unknown COMPREHENSIVE METABOLIC 83314 AGAP 11 mmol/L 2019 Unknown THYROID STIMULATING HORMONE 36107 TSH 2.693 uIU/mL 10/21/2019 Unknown LIPID GROUP 47001 Cholesterol 142 mg/dL 10/21/2019 Unkno wn LIPID GROUP 17910 Triglyceride 120 mg/dL 10/21/2019 Unkn own LIPID GROUP 61934 HDL CHOLESTEROL 54 mg/dL 10/21/2019 U nknown LIPID GROUP 86295 Chol/HDL Ratio 2.63 ratio 10/21/2019 U nknown LIPID GROUP 92399 NON-HDL Chol 88 mg/dL 10/21/2019 Unkn own LIPID GROUP 29528 LDL Cholesterol 64 mg/dL 10/21/2019 U nknown GFR CALC [id number] GFR Non Afr Amr >60 mL/min 04/04/2019 Un known GFR CALC [id number] GFR Afr Amr >60 mL/min 04/04/2019 Unknow n COMPLETE BLOOD COUNT 3000755 WBC 5.9 10e9/L 04/04/20 19 Unknown COMPLETE BLOOD COUNT [id number] RBC 4.29 10e12/L 2018 Unknown COMPLETE BLOOD COUNT [id number] HEMOGLOBIN 12.3 g/dL 04/04/20 19 Unknown COMPLETE BLOOD COUNT [id number] HEMATOCRIT 39.2 % 04/04/20 19 Unknown COMPLETE BLOOD COUNT [id number] MCV 91.4 fL 9 Unknown COMPLETE BLOOD COUNT 7346306 MCH 28.7 pg 9 Unknown COMPLETE BLOOD COUNT 5826999 MCHC 31.4 g/dL 9 Unknown COMPLETE BLOOD COUNT [id number] PLATELET COUNT 225 10e9/L 08/2019 Unknown COMPLETE BLOOD COUNT 6766037 Mean Plt Volume 11.0 fL 08/2019 Unknown COMPLETE BLOOD COUNT 5123006 Neut Auto 57.2 % 9 Unknown COMPLETE BLOOD COUNT 2014504 Lymph Auto 27.3 % 04/04/20 19 Unknown COMPLETE BLOOD COUNT 8811558 [place] Auto 11.2 % 9 Unknown COMPLETE BLOOD COUNT 9142014 RDW 14.3 % 9 Unknown COMPLETE BLOOD COUNT 7154846 Eos Auto 3.4 % 9 Unknown COMPLETE BLOOD COUNT 6203632 Baso Auto 0.9 % 9 Unknown COMPLETE BLOOD COUNT [id number] Neutrophil Abs 3.37 10e9/L Unknown COMPLETE BLOOD COUNT 8754300 Lymphocyte Abs 1.61 10e9/L Unknown COMPLETE BLOOD COUNT 1889321 Monocyte Abs 0.66 10e9/L 03/24 Unknown COMPLETE BLOOD COUNT [id number] Eosinophil Abs 0.20 10e9/L Unknown COMPLETE BLOOD COUNT [id number] RDW-SD 46.6 fL 9 Unknown COMPLETE BLOOD COUNT [id number] Basophil Abs 0.05 10e9/L 03/24 Unknown THYROID STIMULATING HORMONE 11563 TSH 2.068 uIU/mL 04/04/2019 Unknown COMPREHENSIVE METABOLIC 64847 AST 17 U/L 2018 Unknown COMPREHENSIVE METABOLIC 80642 ALT 12 U/L 2018 Unknown COMPREHENSIVE METABOLIC 64308 BUN 17 mg/dL 2018 Unknown COMPREHENSIVE METABOLIC 11712 ALBUMIN 4.3 g/dL 2018 Unknown COMPREHENSIVE METABOLIC 57084 CHLORIDE 107 mmol/L 04/04 Unknown COMPREHENSIVE METABOLIC 59219 Bili Total 1.1 mg/dL 04/04 Unknown COMPREHENSIVE METABOLIC 69135 ALK PHOS 74 U/L 2018 Unknown COMPREHENSIVE METABOLIC 48278 SODIUM 144 mmol/L 04/04 Unknown COMPREHENSIVE METABOLIC 90262 CREATININE 0.70 mg/dL 03/24 Unknown COMPREHENSIVE METABOLIC 30751 CALCIUM 9.5 mg/dL 2018 Unknown COMPREHENSIVE METABOLIC 81863 POTASSIUM 4.1 mmol/L 04/04 Unknown COMPREHENSIVE METABOLIC 19622 Total Protein 6.8 g/dL Unknown COMPREHENSIVE METABOLIC 80165 Glucose 95 mg/dL 2018 Unknown COMPREHENSIVE METABOLIC 35248 Bicarbonate 29 mmol/L 03/24 Unknown COMPREHENSIVE METABOLIC 50759 AGAP 8 mmol/L 2018 Unknown FREE T4 31282 T4 Free 1.09 ng/dL 04/04/2019 Unknown LIPID GROUP 50258 Cholesterol 149 mg/dL 04/04/2019 Unkno wn LIPID GROUP 45647 Triglyceride 70 mg/dL 04/04/2019 Unkn own LIPID GROUP 99651 HDL CHOLESTEROL 62 mg/dL 04/04/2019 U nknown LIPID GROUP 12689 Chol/HDL Ratio 2.40 ratio 04/04/2019 U nknown LIPID GROUP 41350 NON-HDL Chol 87 mg/dL 04/04/2019 Unkn own LIPID GROUP 35578 LDL Cholesterol 73 mg/dL 04/04/2019 U nknown THYROID STIMULATING HORMONE 11149 TSH 3.698 uIU/mL 10/08/2018 Unknown FREE T4 89618 T4 Free 1.24 ng/dL 10/08/2018 Unknown GFR CALC 6737127 GFR Non Afr Amr >60 mL/min 10/07/2018 Un known GFR CALC 9742456 GFR Afr Amr >60 mL/min 10/07/2018 Unknow n COMPLETE BLOOD COUNT 8677096 WBC 6.3 10e9/L 10/07/19 19 Unknown COMPLETE BLOOD COUNT [id number] RBC 4.22 10e12/L 2018 Unknown COMPLETE BLOOD COUNT 5794312 HEMOGLOBIN 12.2 g/dL 10/07/19 19 Unknown COMPLETE BLOOD COUNT 9582475 HEMATOCRIT 39.4 % 10/07/19 19 Unknown COMPLETE BLOOD COUNT [id number] MCV 93.4 fL 9 Unknown COMPLETE BLOOD COUNT 4658482 MCH 28.9 pg 9 Unknown COMPLETE BLOOD COUNT 5382051 MCHC 31.0 g/dL 9 Unknown COMPLETE BLOOD COUNT 8707954 PLATELET COUNT 231 10e9/L Unknown COMPLETE BLOOD COUNT 9575220 Mean Plt Volume 11.2 fL Unknown COMPLETE BLOOD COUNT [id number] Neut Auto 55.7 % 9 Unknown COMPLETE BLOOD COUNT [id number] Lymph Auto 30.3 % 10/07/19 19 Unknown COMPLETE BLOOD COUNT 4849498 [place] Auto 9.6 % 9 Unknown COMPLETE BLOOD COUNT 1105502 RDW 14.0 % 9 Unknown COMPLETE BLOOD COUNT 3427897 Eos Auto 3.5 % 9 Unknown COMPLETE BLOOD COUNT 0321713 Baso Auto 0.9 % 9 Unknown COMPLETE BLOOD COUNT 7944428 Neutrophil Abs 3.51 10e9/L Unknown COMPLETE BLOOD COUNT [id number] Lymphocyte Abs 1.91 10e9/L Unknown COMPLETE BLOOD COUNT [id number] Monocyte Abs 0.60 10e9/L 09/24 Unknown COMPLETE BLOOD COUNT [id number] Eosinophil Abs 0.22 10e9/L Unknown COMPLETE BLOOD COUNT 4407838 RDW-SD 46.1 fL 9 Unknown COMPLETE BLOOD COUNT [id number] Basophil Abs 0.06 10e9/L 09/24 Unknown COMPREHENSIVE METABOLIC 32194 AST 14 U/L 2018 Unknown COMPREHENSIVE METABOLIC 30203 ALT 10 U/L 2018 Unknown COMPREHENSIVE METABOLIC 89533 BUN 21 mg/dL 2018 Unknown COMPREHENSIVE METABOLIC 00558 ALBUMIN 4.4 g/dL 2018 Unknown COMPREHENSIVE METABOLIC 15057 CHLORIDE 105 mmol/L 10/07 Unknown COMPREHENSIVE METABOLIC 03168 Bili Total 0.7 mg/dL 10/07 Unknown COMPREHENSIVE METABOLIC 20296 ALK PHOS 80 U/L 2018 Unknown COMPREHENSIVE METABOLIC 76836 SODIUM 143 mmol/L 10/07 Unknown COMPREHENSIVE METABOLIC 04420 CREATININE 0.67 mg/dL 09/24 Unknown COMPREHENSIVE METABOLIC 08319 CALCIUM 9.3 mg/dL 2018 Unknown COMPREHENSIVE METABOLIC 07902 POTASSIUM 3.8 mmol/L 10/07 Unknown COMPREHENSIVE METABOLIC 19640 Total Protein 7.0 g/dL Unknown COMPREHENSIVE METABOLIC 14384 Glucose 98 mg/dL 2018 Unknown COMPREHENSIVE METABOLIC 28465 Bicarbonate 32 mmol/L 09/24 Unknown COMPREHENSIVE METABOLIC 50011 AGAP 6 mmol/L 2018 Unknown LIPID GROUP 45137 Cholesterol 160 mg/dL 10/07/2018 Unkno wn LIPID GROUP 63986 Triglyceride 101 mg/dL 10/07/2018 Unkn own LIPID GROUP 79145 HDL CHOLESTEROL 63 mg/dL 10/07/2018 U nknown LIPID GROUP 63897 Chol/HDL Ratio 2.54 ratio 10/07/2018 U nknown LIPID GROUP 94361 NON-HDL Chol 97 mg/dL 10/07/2018 Unkn own LIPID GROUP 31001 LDL Cholesterol 77 mg/dL 10/07/2018 U nknown MEAN GLUC 7478768 Calc Mean Gluc 114 mg/dL 10/07/2018 Unkn own GLYCOSYLATED HEMOGLOBIN TEST 02353 Hgb A1c 59448-0 5.6 % 0 10/07/2018 Unknown FREE T4 50663 T4 Free 1.21 ng/dL 02/14/2018 Unknown THYROID STIMULATING HORMONE 67541 TSH 2.977 uIU/mL 02/14/2018 Unknown COMPLETE BLOOD COUNT 5557734 WBC 5.6 10e9/L 02/14/20 18 Unknown COMPLETE BLOOD COUNT [id number] RBC 4.23 10e12/L 2017 Unknown COMPLETE BLOOD COUNT 1274064 HEMOGLOBIN 12.4 g/dL 02/14/20 18 Unknown COMPLETE BLOOD COUNT 7043188 HEMATOCRIT 39.1 % 02/14/20 18 Unknown COMPLETE BLOOD COUNT 7223134 MCV 92.4 fL 8 Unknown COMPLETE BLOOD COUNT 4035403 MCH 29.3 pg 8 Unknown COMPLETE BLOOD COUNT 9389166 MCHC 31.7 g/dL 8 Unknown COMPLETE BLOOD COUNT 5107017 PLATELET COUNT 268 10e9/L Unknown COMPLETE BLOOD COUNT 4940304 Mean Plt Volume 11.0 fL Unknown COMPLETE BLOOD COUNT 3355931 Neut Auto 52.1 % 8 Unknown COMPLETE BLOOD COUNT 7374050 Lymph Auto 32.0 % 02/14/20 18 Unknown COMPLETE BLOOD COUNT 3535123 [place] Auto 11.8 % 8 Unknown COMPLETE BLOOD COUNT 1670035 RDW 14.6 % 8 Unknown COMPLETE BLOOD COUNT 9577455 Eos Auto 3.2 % 8 Unknown COMPLETE BLOOD COUNT 6544150 Baso Auto 0.9 % 8 Unknown COMPLETE BLOOD COUNT 7760102 Neutrophil Abs 2.92 10e9/L Unknown COMPLETE BLOOD COUNT 0829488 Lymphocyte Abs 1.79 10e9/L Unknown COMPLETE BLOOD COUNT 1307591 Monocyte Abs 0.66 10e9/L 01/23 Unknown COMPLETE BLOOD COUNT 2524885 Eosinophil Abs 0.18 10e9/L Unknown COMPLETE BLOOD COUNT 4404397 RDW-SD 48.2 fL 8 Unknown COMPLETE BLOOD COUNT 4198160 Basophil Abs 0.05 10e9/L 01/23 Unknown GFR CALC 3379015 GFR Non Afr Amr >60 mL/min 02/13/2018 Un known GFR CALC 0615209 GFR Afr Amr >60 mL/min 02/13/2018 Unknow n COMPREHENSIVE METABOLIC 12277 AST 18 U/L 2017 Unknown COMPREHENSIVE METABOLIC 26740 ALT 13 U/L 2017 Unknown COMPREHENSIVE METABOLIC 28057 BUN 14 mg/dL 2017 Unknown COMPREHENSIVE METABOLIC 98782 ALBUMIN 4.3 g/dL 2017 Unknown COMPREHENSIVE METABOLIC 76498 CHLORIDE 108 mmol/L 02/13 Unknown COMPREHENSIVE METABOLIC 91353 Bili Total 0.8 mg/dL 02/13 Unknown COMPREHENSIVE METABOLIC 76807 ALK PHOS 82 U/L 2017 Unknown COMPREHENSIVE METABOLIC 70771 SODIUM 144 mmol/L 02/13 Unknown COMPREHENSIVE METABOLIC 64495 CREATININE 0.67 mg/dL 01/23 Unknown COMPREHENSIVE METABOLIC 60241 CALCIUM 9.4 mg/dL 2017 Unknown COMPREHENSIVE METABOLIC 35420 POTASSIUM 4.1 mmol/L 02/13 Unknown COMPREHENSIVE METABOLIC 94528 Total Protein 6.9 g/dL Unknown COMPREHENSIVE METABOLIC 43574 Glucose 103 mg/dL 2017 Unknown COMPREHENSIVE METABOLIC 95213 Bicarbonate 27 mmol/L 01/23 Unknown COMPREHENSIVE METABOLIC 09342 AGAP 9 mmol/L 2017 Unknown LIPID GROUP 04645 Cholesterol 169 mg/dL 10/15/2017 Unkno wn LIPID GROUP 40932 Triglyceride 99 mg/dL 10/15/2017 Unkn own LIPID GROUP 00091 HDL CHOLESTEROL 69 10/15/2017 U nknown LIPID GROUP 57506 Chol/HDL Ratio 2.45 ratio 10/15/2017 U nknown LIPID GROUP 43086 NON-HDL Chol 100 mg/dL 10/15/2017 Unkn own LIPID GROUP 10091 LDL Cholesterol 80 mg/dL 10/15/2017 U nknown COMPREHENSIVE METABOLIC 52309 AST 17 U/L 2017 Unknown COMPREHENSIVE METABOLIC 91493 ALT 13 U/L 2017 Unknown COMPREHENSIVE METABOLIC 86906 BUN 22 mg/dL 2017 Unknown COMPREHENSIVE METABOLIC 01919 ALBUMIN 4.5 g/dL 2017 Unknown COMPREHENSIVE METABOLIC 81236 CHLORIDE 99 mmol/L 2017 Unknown COMPREHENSIVE METABOLIC 66183 Bili Total 0.8 mg/dL 10/15 Unknown COMPREHENSIVE METABOLIC 17505 ALK PHOS 78 U/L 2017 Unknown COMPREHENSIVE METABOLIC 14063 SODIUM 150 mmol/L 10/15 Unknown COMPREHENSIVE METABOLIC 21704 CREATININE 0.73 mg/dL 09/25 Unknown COMPREHENSIVE METABOLIC 50736 CALCIUM 9.5 mg/dL 2017 Unknown COMPREHENSIVE METABOLIC 68452 POTASSIUM 4.2 mmol/L 10/15 Unknown COMPREHENSIVE METABOLIC 39392 Total Protein 7.2 g/dL Unknown COMPREHENSIVE METABOLIC 59995 Glucose 96 mg/dL 2017 Unknown COMPREHENSIVE METABOLIC 92912 Bicarbonate 29 mmol/L 09/25 Unknown COMPREHENSIVE METABOLIC 46534 AGAP 22 mmol/L 2017 Unknown GFR CALC 5934407 GFR Non Afr Amr >60 mL/min 10/15/2017 Un known GFR CALC 5721153 GFR Afr Amr >60 mL/min 10/15/2017 Unknow n THYROID STIMULATING HORMONE 90726 TSH 4.502 uIU/mL 10/15/2017 Unknown FREE T4 44385 T4 Free 1.44 ng/dL 10/15/2017 Unknown VITAMIN B 12 42279 VITAMIN B12 698 pg/mL 10/15/2017 Unkn own COMPLETE BLOOD COUNT 9766574 WBC 6.3 10e9/L 10/15/19 18 Unknown COMPLETE BLOOD COUNT 1776494 RBC 4.37 10e12/L 2017 Unknown COMPLETE BLOOD COUNT 4594714 HEMOGLOBIN 12.6 g/dL 10/15/19 18 Unknown COMPLETE BLOOD COUNT 1314780 HEMATOCRIT 40.3 % 10/15/19 18 Unknown COMPLETE BLOOD COUNT 1375720 MCV 92.2 fL 8 Unknown COMPLETE BLOOD COUNT 1359232 MCH 28.8 pg 8 Unknown COMPLETE BLOOD COUNT 8238132 MCHC 31.3 g/dL 8 Unknown COMPLETE BLOOD COUNT 2833552 PLATELET COUNT 256 10e9/L Unknown COMPLETE BLOOD COUNT 3758832 Mean Plt Volume 11.1 fL Unknown COMPLETE BLOOD COUNT 4816279 Neut Auto 54.8 % 8 Unknown COMPLETE BLOOD COUNT 8922432 Lymph Auto 30.5 % 10/15/19 18 Unknown COMPLETE BLOOD COUNT 7599151 [place] Auto 10.4 % 8 Unknown COMPLETE BLOOD COUNT 0849516 RDW 14.0 % 8 Unknown COMPLETE BLOOD COUNT 0330369 Eos Auto 3.8 % 8 Unknown COMPLETE BLOOD COUNT 9213619 Baso Auto 0.5 % 8 Unknown COMPLETE BLOOD COUNT 8968461 Neutrophil Abs 3.45 10e9/L Unknown COMPLETE BLOOD COUNT 0740993 Lymphocyte Abs 1.92 10e9/L Unknown COMPLETE BLOOD COUNT 1189046 Monocyte Abs 0.66 10e9/L 09/25 Unknown COMPLETE BLOOD COUNT 2570747 Eosinophil Abs 0.24 10e9/L Unknown COMPLETE BLOOD COUNT 2250806 RDW-SD 46.1 fL 8 Unknown COMPLETE BLOOD COUNT 6785944 Basophil Abs 0.03 10e9/L 09/25 Unknown VITAMIN B 12 88640 VITAMIN B12 823 pg/mL 03/30/2017 Unkn own VITAMIN B 12 04606 VITAMIN B12 321 pg/mL 12/18/2016 Unkn own COMPLETE BLOOD COUNT 3836278 WBC 6.8 10e9/L 12/12/19 17 Unknown COMPLETE BLOOD COUNT 0479989 RBC 4.37 10e12/L 2016 Unknown COMPLETE BLOOD COUNT 7830056 HEMOGLOBIN 12.5 g/dL 12/12/19 17 Unknown COMPLETE BLOOD COUNT 8373284 HEMATOCRIT 39.3 % 12/12/19 17 Unknown COMPLETE BLOOD COUNT 7920845 MCV 89.9 fL 7 Unknown COMPLETE BLOOD COUNT 1206659 MCH 28.6 pg 7 Unknown COMPLETE BLOOD COUNT 1109205 MCHC 31.8 g/dL 7 Unknown COMPLETE BLOOD COUNT 9843478 PLATELET COUNT 248 10e9/L Unknown COMPLETE BLOOD COUNT 8111031 Mean Plt Volume 10.9 fL Unknown COMPLETE BLOOD COUNT 3627689 Neut Auto 52.0 % 7 Unknown COMPLETE BLOOD COUNT 3414836 Lymph Auto 33.4 % 12/12/19 17 Unknown COMPLETE BLOOD COUNT 8325228 [place] Auto 10.1 % 7 Unknown COMPLETE BLOOD COUNT 4131058 RDW 14.6 % 7 Unknown COMPLETE BLOOD COUNT 6196490 Eos Auto 3.8 % 7 Unknown COMPLETE BLOOD COUNT 7153663 Baso Auto 0.7 % 7 Unknown COMPLETE BLOOD COUNT 8326470 Neutrophil Abs 3.54 10e9/L Unknown COMPLETE BLOOD COUNT 9348725 Lymphocyte Abs 2.27 10e9/L Unknown COMPLETE BLOOD COUNT 8001047 Monocyte Abs 0.69 10e9/L 11/23 Unknown COMPLETE BLOOD COUNT 7989253 Eosinophil Abs 0.26 10e9/L Unknown COMPLETE BLOOD COUNT 7678434 RDW-SD 47.4 fL 7 Unknown COMPLETE BLOOD COUNT 8975230 Basophil Abs 0.05 10e9/L 11/23 Unknown COMPREHENSIVE METABOLIC 62911 AST 16 U/L 2016 Unknown COMPREHENSIVE METABOLIC 56011 ALT 12 U/L 2016 Unknown COMPREHENSIVE METABOLIC 75602 BUN 22 mg/dL 2016 Unknown COMPREHENSIVE METABOLIC 63378 ALBUMIN 4.2 g/dL 2016 Unknown COMPREHENSIVE METABOLIC 97115 CHLORIDE 104 mmol/L 12/11 Unknown COMPREHENSIVE METABOLIC 47585 Bili Total 0.7 mg/dL 12/11 Unknown COMPREHENSIVE METABOLIC 67454 ALK PHOS 78 U/L 2016 Unknown COMPREHENSIVE METABOLIC 06974 SODIUM 143 mmol/L 12/11 Unknown COMPREHENSIVE METABOLIC 32061 CREATININE 0.69 mg/dL 11/23 Unknown COMPREHENSIVE METABOLIC 98608 CALCIUM 9.5 mg/dL 2016 Unknown COMPREHENSIVE METABOLIC 66658 POTASSIUM 3.9 mmol/L 12/11 Unknown COMPREHENSIVE METABOLIC 69978 Total Protein 7.1 g/dL Unknown COMPREHENSIVE METABOLIC 93216 Glucose 103 mg/dL 2016 Unknown COMPREHENSIVE METABOLIC 19643 Bicarbonate 30 mmol/L 11/23 Unknown COMPREHENSIVE METABOLIC 72128 AGAP 9 mmol/L 2016 Unknown GFR CALC 9872860 GFR Non Afr Amr >60 mL/min 12/11/2016 Un known GFR CALC 2129465 GFR Afr Amr >60 mL/min 12/11/2016 Unknow n MEAN GLUC 2420398 Calc Mean Gluc 120 mg/dL 12/11/2016 Unkn own LIPID GROUP 05499 Cholesterol 162 mg/dL 12/11/2016 Unkno wn LIPID GROUP 79637 Triglyceride 80 mg/dL 12/11/2016 Unkn own LIPID GROUP 65508 HDL CHOLESTEROL 65 mg/dL 12/11/2016 U nknown LIPID GROUP 90708 Chol/HDL Ratio 2.49 ratio 12/11/2016 U nknown LIPID GROUP 43236 NON-HDL Chol 97 mg/dL 12/11/2016 Unkn own LIPID GROUP 29390 LDL Cholesterol 81 mg/dL 12/11/2016 U nknown FREE T4 93582 T4 Free 1.46 ng/dL 12/11/2016 Unknown THYROID STIMULATING HORMONE 92548 TSH 2.578 uIU/mL 12/11/2016 Unknown GLYCOSYLATED HEMOGLOBIN TEST 42806 Hgb A1c 05941-8 5.8 % 0 12/11/2016 Unknown FREE T4 51454 FREE T4 1.68 NG/DL 05/27/2015 Unknown LIPID GROUP 96038 HDL TEST 67 MG/DL 05/27/2015 Unknown LIPID GROUP 44251 TRIG 92 MG/DL 05/27/2015 Unknown LIPID GROUP 10968 TEST LDL 84 MG/DL 05/27/2015 Unknown LIPID GROUP 41384 CHOL 169 MG/DL 05/27/2015 Unknown LIPID GROUP 94536 RCHOL/HDL 2.52 RATIO 05/27/2015 Unknow n LIPID GROUP 36829 NON-HDL CH 102 MG/DL 05/27/2015 Unknow n GLYCOSYLATED HEMOGLOBIN TEST 34465 A1C HPLC 85249-8 5.9 % 0 05/27/2015 Unknown VITAMIN B 12 18012 VIT B 12 308 PG/ML 05/27/2015 Unknow n GFR CALC 0233482 GFR AA >60 ML/MIN 05/27/2015 Unknown GFR CALC 2221456 GFR NON-AA >60 ML/MIN 05/27/2015 Unknown COMPREHENSIVE METABOLIC 14619 AST 20 U/L 2014 Unknown COMPREHENSIVE METABOLIC 68913 ALT 15 IU/L 2014 Unknown COMPREHENSIVE METABOLIC 79996 BUN 17 MG/DL 2014 Unknown COMPREHENSIVE METABOLIC 77937 ALBUMIN 4.3 GM/DL 2014 Unknown COMPREHENSIVE METABOLIC 53114 CHLORIDE 107 MMOL/L 05/27 Unknown COMPREHENSIVE METABOLIC 13554 BILI TOT 0.9 MG/DL 2014 Unknown COMPREHENSIVE METABOLIC 38231 ALK PHOS 85 U/L 2014 Unknown COMPREHENSIVE METABOLIC 81493 SODIUM 144 MMOL/L 05/27 Unknown COMPREHENSIVE METABOLIC 39515 CREATININE 0.76 MG/DL 11/2014 Unknown COMPREHENSIVE METABOLIC 83292 CALCIUM 9.5 MG/DL 2014 Unknown COMPREHENSIVE METABOLIC 45913 POTASSIUM 4.2 MMOL/L 05/27 Unknown COMPREHENSIVE METABOLIC 79951 PROT TOT 7.1 GM/DL 2014 Unknown COMPREHENSIVE METABOLIC 21724 Glucose 95 MG/DL 2014 Unknown COMPREHENSIVE METABOLIC 58000 BICARB 30 MMOL/L 2014 Unknown COMPREHENSIVE METABOLIC 84556 ANION GAP 7 MEQ/L 2014 Unknown COMPLETE BLOOD COUNT 0390356 WBC 6.5 10e9/L 05/27/20 15 Unknown COMPLETE BLOOD COUNT 3195810 RBC 4.35 10e12/L 2014 Unknown COMPLETE BLOOD COUNT 7059083 HGB 12.4 g/dL 5 Unknown COMPLETE BLOOD COUNT 6904378 HCT DET 39.3 % 5 Unknown COMPLETE BLOOD COUNT 0135947 MCV 90.3 fL 5 Unknown COMPLETE BLOOD COUNT 0871744 MCH 28.5 pg 5 Unknown COMPLETE BLOOD COUNT 0296593 MCHC 31.6 g/dL 5 Unknown COMPLETE BLOOD COUNT 2969871 PLT 245 10e9/L 05/27/20 15 Unknown COMPLETE BLOOD COUNT 7342748 MPV 11.1 fL 5 Unknown COMPLETE BLOOD COUNT 6875661 CRISTI % 53.9 % 5 Unknown COMPLETE BLOOD COUNT 5478082 LY % 30.8 % 5 Unknown COMPLETE BLOOD COUNT 2200715 MON % 11.2 % 5 Unknown COMPLETE BLOOD COUNT 1697392 EOS % 3.2 % 5 Unknown COMPLETE BLOOD COUNT 1815130 BASO % 0.9 % 5 Unknown COMPLETE BLOOD COUNT 4003207 RDW 14.5 % 5 Unknown COMPLETE BLOOD COUNT 0917203 ABS CRISTI 3.50 10e9/L 015 Unknown COMPLETE BLOOD COUNT 3023689 ABS LYMPH 2.00 10e9/L 015 Unknown COMPLETE BLOOD COUNT 9341957 ABS MONO 0.73 10e9/L 015 Unknown COMPLETE BLOOD COUNT 5504639 ABS EOS 0.21 10e9/L 015 Unknown COMPLETE BLOOD COUNT 5804456 ABS BASO 0.06 10e9/L 015 Unknown COMPLETE BLOOD COUNT 7228594 RDW-SD 46.3 fL 5 Unknown THYROID STIMULATING HORMONE 09349 TSH 2.909 uIU/ML 05/27/2015 Unknown IRON 40207 IRON TEST 63 UG/DL 12/15/2014 Unknown COMPLETE BLOOD COUNT 1444275 WBC 6.3 10e9/L 12/16/19 15 Unknown COMPLETE BLOOD COUNT 2117018 RBC 4.37 10e12/L 2014 Unknown COMPLETE BLOOD COUNT 7764927 HGB 12.6 g/dL 5 Unknown COMPLETE BLOOD COUNT 1852530 HCT DET 39.2 % 5 Unknown COMPLETE BLOOD COUNT 2586372 MCV 89.7 fL 5 Unknown COMPLETE BLOOD COUNT 3291751 MCH 28.8 pg 5 Unknown COMPLETE BLOOD COUNT 7841124 MCHC 32.1 g/dL 5 Unknown COMPLETE BLOOD COUNT 0965631 PLT 252 10e9/L 12/16/19 15 Unknown COMPLETE BLOOD COUNT 8554081 MPV 10.8 fL 5 Unknown COMPLETE BLOOD COUNT 4565629 CRISTI % 60.5 % 5 Unknown COMPLETE BLOOD COUNT 1595854 LY % 24.4 % 5 Unknown COMPLETE BLOOD COUNT 9097616 MON % 11.8 % 5 Unknown COMPLETE BLOOD COUNT 7162404 EOS % 2.7 % 5 Unknown COMPLETE BLOOD COUNT 5948527 BASO % 0.6 % 5 Unknown COMPLETE BLOOD COUNT 5139273 RDW 14.0 % 5 Unknown COMPLETE BLOOD COUNT 7949612 ABS CRISTI 3.81 10e9/L 015 Unknown COMPLETE BLOOD COUNT 2344024 ABS LYMPH 1.54 10e9/L 015 Unknown COMPLETE BLOOD COUNT 6677361 ABS MONO 0.74 10e9/L 015 Unknown COMPLETE BLOOD COUNT 3410255 ABS EOS 0.17 10e9/L 015 Unknown COMPLETE BLOOD COUNT 8644787 ABS BASO 0.04 10e9/L 015 Unknown COMPLETE BLOOD COUNT 5521563 RDW-SD 44.6 fL 5 Unknown GFR CALC 3504043 GFR AA >60 ML/MIN 11/26/2014 Unknown GFR CALC 2176309 GFR NON-AA >60 ML/MIN 11/26/2014 Unknown COMPREHENSIVE METABOLIC 72297 AST 16 U/L 2014 Unknown COMPREHENSIVE METABOLIC 93021 ALT 15 IU/L 2014 Unknown COMPREHENSIVE METABOLIC 25931 BUN 21 MG/DL 2014 Unknown COMPREHENSIVE METABOLIC 24873 ALBUMIN 4.4 GM/DL 2014 Unknown COMPREHENSIVE METABOLIC 34380 CHLORIDE 106 MMOL/L 11/26 Unknown COMPREHENSIVE METABOLIC 22888 BILI TOT 0.9 MG/DL 2014 Unknown COMPREHENSIVE METABOLIC 21786 ALK PHOS 83 U/L 2014 Unknown COMPREHENSIVE METABOLIC 72104 SODIUM 141 MMOL/L 11/26 Unknown COMPREHENSIVE METABOLIC 42138 CREATININE 0.68 MG/DL 01/2015 Unknown COMPREHENSIVE METABOLIC 42078 CALCIUM 9.4 MG/DL 2014 Unknown COMPREHENSIVE METABOLIC 41607 POTASSIUM 3.8 MMOL/L 11/26 Unknown COMPREHENSIVE METABOLIC 54712 PROT TOT 7.2 GM/DL 2014 Unknown COMPREHENSIVE METABOLIC 26860 Glucose 100 MG/DL 2014 Unknown COMPREHENSIVE METABOLIC 59327 BICARB 29 MMOL/L 2014 Unknown COMPREHENSIVE METABOLIC 12869 ANION GAP 6 MEQ/L 2014 Unknown LIPID GROUP 99568 HDL TEST 72 MG/DL 11/26/2014 Unknown LIPID GROUP 08135 TRIG 101 MG/DL 11/26/2014 Unknown LIPID GROUP 30531 TEST LDL 82 MG/DL 11/26/2014 Unknown LIPID GROUP 18671 CHOL 174 MG/DL 11/26/2014 Unknown LIPID GROUP 53074 RCHOL/HDL 2.42 RATIO 11/26/2014 Unknow n LIPID GROUP 39954 NON-HDL CH 102 MG/DL 11/26/2014 Unknow n GFR CALC 6656146 GFR AA >60 ML/MIN 08/14/2014 Unknown GFR CALC 6435734 GFR NON-AA >60 ML/MIN 08/14/2014 Unknown THYROID STIMULATING HORMONE 34915 TSH 2.261 uIU/ML 08/14/2014 Unknown COMPLETE BLOOD COUNT 4724130 WBC 5.8 10e9/L 08/14/20 14 Unknown COMPLETE BLOOD COUNT 9362220 RBC 4.33 10e12/L 2013 Unknown COMPLETE BLOOD COUNT 4573404 HGB 12.5 g/dL 4 Unknown COMPLETE BLOOD COUNT 2577871 HCT DET 39.2 % 4 Unknown COMPLETE BLOOD COUNT 2762893 MCV 90.5 fL 4 Unknown COMPLETE BLOOD COUNT 9144128 MCH 28.9 pg 4 Unknown COMPLETE BLOOD COUNT 7800852 MCHC 31.9 g/dL 4 Unknown COMPLETE BLOOD COUNT 4336416 PLT 260 10e9/L 08/14/20 14 Unknown COMPLETE BLOOD COUNT 5723569 MPV 10.9 fL 4 Unknown COMPLETE BLOOD COUNT 6985731 CRISTI % 52.9 % 4 Unknown COMPLETE BLOOD COUNT 0215774 LY % 31.0 % 4 Unknown COMPLETE BLOOD COUNT 3963713 MON % 11.3 % 4 Unknown COMPLETE BLOOD COUNT 6323825 EOS % 3.6 % 4 Unknown COMPLETE BLOOD COUNT 7082847 BASO % 1.2 % 4 Unknown COMPLETE BLOOD COUNT 5150998 RDW 13.9 % 4 Unknown COMPLETE BLOOD COUNT 9604097 ABS CRISTI 3.07 10e9/L 014 Unknown COMPLETE BLOOD COUNT 0207742 ABS LYMPH 1.80 10e9/L 014 Unknown COMPLETE BLOOD COUNT 9045189 ABS MONO 0.66 10e9/L 014 Unknown COMPLETE BLOOD COUNT 9445248 ABS EOS 0.21 10e9/L 014 Unknown COMPLETE BLOOD COUNT 6422362 ABS BASO 0.07 10e9/L 014 Unknown COMPLETE BLOOD COUNT 6232166 RDW-SD 44.8 fL 4 Unknown COMPREHENSIVE METABOLIC 75613 AST 15 U/L 2013 Unknown COMPREHENSIVE METABOLIC 93739 ALT 13 IU/L 2013 Unknown COMPREHENSIVE METABOLIC 29146 BUN 18 MG/DL 2013 Unknown COMPREHENSIVE METABOLIC 10804 ALBUMIN 4.4 GM/DL 2013 Unknown COMPREHENSIVE METABOLIC 02149 CHLORIDE 105 MMOL/L 08/14 Unknown COMPREHENSIVE METABOLIC 35627 BILI TOT 1.0 MG/DL 2013 Unknown COMPREHENSIVE METABOLIC 52818 ALK PHOS 88 U/L 2013 Unknown COMPREHENSIVE METABOLIC 74603 SODIUM 143 MMOL/L 08/14 Unknown COMPREHENSIVE METABOLIC 52970 CREATININE 0.70 MG/DL 07/26 Unknown COMPREHENSIVE METABOLIC 10204 CALCIUM 9.6 MG/DL 2013 Unknown COMPREHENSIVE METABOLIC 77309 POTASSIUM 3.9 MMOL/L 08/14 Unknown COMPREHENSIVE METABOLIC 60306 PROT TOT 7.0 GM/DL 2013 Unknown COMPREHENSIVE METABOLIC 50470 Glucose 100 MG/DL 2013 Unknown COMPREHENSIVE METABOLIC 78123 BICARB 31 MMOL/L 2013 Unknown COMPREHENSIVE METABOLIC 33121 ANION GAP 7 MEQ/L 2013 Unknown FREE T4 43044 FREE T4 1.59 NG/DL 08/14/2014 Unknown LIPID GROUP 52102 HDL TEST 66 MG/DL 08/14/2014 Unknown LIPID GROUP 47376 TRIG 106 MG/DL 08/14/2014 Unknown LIPID GROUP 46512 TEST LDL 152 MG/DL 08/14/2014 Unknown LIPID GROUP 91181 CHOL 239 MG/DL 08/14/2014 Unknown LIPID GROUP 65517 RCHOL/HDL 3.62 RATIO 08/14/2014 Unknow n LIPID GROUP 83274 NON-HDL CH 173 MG/DL 08/14/2014 Unknow n COMPREHENSIVE METABOLIC 84756 AST 16 U/L 2013 Unknown COMPREHENSIVE METABOLIC 01199 ALT 13 IU/L 2013 Unknown COMPREHENSIVE METABOLIC 22120 BUN 20 MG/DL 2013 Unknown COMPREHENSIVE METABOLIC 01686 ALBUMIN 4.4 GM/DL 2013 Unknown COMPREHENSIVE METABOLIC 35367 CHLORIDE 104 MMOL/L 02/04 Unknown COMPREHENSIVE METABOLIC 34832 BILI TOT 0.8 MG/DL 2013 Unknown COMPREHENSIVE METABOLIC 91706 ALK PHOS 79 U/L 2013 Unknown COMPREHENSIVE METABOLIC 20315 SODIUM 141 MMOL/L 02/04 Unknown COMPREHENSIVE METABOLIC 52965 CREATININE 0.73 MG/DL 01/22 Unknown COMPREHENSIVE METABOLIC 32524 CALCIUM 9.6 MG/DL 2013 Unknown COMPREHENSIVE METABOLIC 00175 POTASSIUM 4.0 MMOL/L 02/04 Unknown COMPREHENSIVE METABOLIC 48824 PROT TOT 7.2 GM/DL 2013 Unknown COMPREHENSIVE METABOLIC 54883 Glucose 96 MG/DL 2013 Unknown COMPREHENSIVE METABOLIC 06347 BICARB 31 MMOL/L 2013 Unknown COMPREHENSIVE METABOLIC 73124 ANION GAP 6 MEQ/L 2013 Unknown GFR CALC 3905366 GFR AA >60 ML/MIN 02/04/2014 Unknown GFR CALC 4146320 GFR NON-AA >60 ML/MIN 02/04/2014 Unknown FREE T4 26887 FREE T4 1.59 NG/DL 02/04/2014 Unknown COMPLETE BLOOD COUNT 6171864 WBC 5.9 10e9/L 02/05/20 14 Unknown COMPLETE BLOOD COUNT [id number] RBC 4.37 10e12/L 2013 Unknown COMPLETE BLOOD COUNT [id number] HGB 12.6 g/dL 4 Unknown COMPLETE BLOOD COUNT [id number] HCT DET 39.0 % 4 Unknown COMPLETE BLOOD COUNT [id number] MCV 89.2 fL 4 Unknown COMPLETE BLOOD COUNT [id number] MCH 28.8 pg 4 Unknown COMPLETE BLOOD COUNT [id number] MCHC 32.3 g/dL 4 Unknown COMPLETE BLOOD COUNT [id number] PLT 265 10e9/L 02/05/20 14 Unknown COMPLETE BLOOD COUNT [id number] MPV 10.8 fL 4 Unknown COMPLETE BLOOD COUNT [id number] CRISTI % 55.5 % 4 Unknown COMPLETE BLOOD COUNT [id number] LY % 30.8 % 4 Unknown COMPLETE BLOOD COUNT 1756170 MON % 10.0 % 4 Unknown COMPLETE BLOOD COUNT [id number] EOS % 2.7 % 4 Unknown COMPLETE BLOOD COUNT [id number] BASO % 1.0 % 4 Unknown COMPLETE BLOOD COUNT [id number] RDW 14.2 % 4 Unknown COMPLETE BLOOD COUNT [id number] ABS CRISTI 3.27 10e9/L 014 Unknown COMPLETE BLOOD COUNT 9076385 ABS LYMPH 1.82 10e9/L 014 Unknown COMPLETE BLOOD COUNT [id number] ABS MONO 0.59 10e9/L 014 Unknown COMPLETE BLOOD COUNT [id number] ABS EOS 0.16 10e9/L 014 Unknown COMPLETE BLOOD COUNT [id number] ABS BASO 0.06 10e9/L 014 Unknown COMPLETE BLOOD COUNT [id number] RDW-SD 45.2 fL 4 Unknown LIPID GROUP 65967 HDL TEST 69 MG/DL 02/04/2014 Unknown LIPID GROUP 03759 TRIG 121 MG/DL 02/04/2014 Unknown LIPID GROUP 02814 TEST LDL 144 MG/DL 02/04/2014 Unknown LIPID GROUP 21792 CHOL 237 MG/DL 02/04/2014 Unknown LIPID GROUP 68991 RCHOL/HDL 3.43 RATIO 02/04/2014 Unknow n THYROID STIMULATING HORMONE 07036 TSH 2.310 uIU/ML 02/04/2014 Unknown THYROID STIMULATING HORMONE 93643 TSH 2.429 uIU/ML 03/18/2012 Unknown COMPREHENSIVE METABOLIC 87262 AST 17 U/L 2011 Unknown COMPREHENSIVE METABOLIC 63281 ALT 15 IU/L 2011 Unknown COMPREHENSIVE METABOLIC 80942 BUN 17 MG/DL 2011 Unknown COMPREHENSIVE METABOLIC 21066 ALBUMIN 4.1 GM/DL 2011 Unknown COMPREHENSIVE METABOLIC 82960 CHLORIDE 108 MMOL/L 03/18 Unknown COMPREHENSIVE METABOLIC 29479 BILI TOT 0.7 MG/DL 2011 Unknown COMPREHENSIVE METABOLIC 83597 ALK PHOS 79 U/L 2011 Unknown COMPREHENSIVE METABOLIC 52294 SODIUM 144 MMOL/L 03/18 Unknown COMPREHENSIVE METABOLIC 63046 CREATININE 0.68 MG/DL 02/23 Unknown COMPREHENSIVE METABOLIC 17591 CALCIUM 9.0 MG/DL 2011 Unknown COMPREHENSIVE METABOLIC 53989 POTASSIUM 3.7 MMOL/L 03/18 Unknown COMPREHENSIVE METABOLIC 61426 PROT TOT 6.6 GM/DL 2011 Unknown COMPREHENSIVE METABOLIC 72617 Glucose 99 MG/DL 2011 Unknown COMPREHENSIVE METABOLIC 42042 BICARB 28 MMOL/L 2011 Unknown COMPREHENSIVE METABOLIC 84033 ANION GAP 8 MEQ/L 2011 Unknown LIPID GROUP 62983 HDL TEST 65 MG/DL 03/18/2012 Unknown LIPID GROUP 00670 TRIG 86 MG/DL 03/18/2012 Unknown LIPID GROUP 95367 TEST LDL 153 MG/DL 03/18/2012 Unknown LIPID GROUP 42703 CHOL 235 MG/DL 03/18/2012 Unknown LIPID GROUP 70041 RCHOL/HDL 3.62 RATIO 03/18/2012 Unknow n GFR CALC [id number] GFR AA >60 ML/MIN 03/18/2012 Unknown GFR CALC 3544350 GFR NON-AA >60 ML/MIN 03/18/2012 Unknown COMPLETE BLOOD COUNT 77471 WBC 5.1 10e9/L 03/18/20 12 Unknown COMPLETE BLOOD COUNT 61741 RBC 4.32 10e12/L 2011 Unknown COMPLETE BLOOD COUNT 36221 HGB 12.4 g/dL 2 Unknown COMPLETE BLOOD COUNT 22774 HCT DET 38.4 % 2 Unknown COMPLETE BLOOD COUNT 14034 MCV 88.9 fL 2 Unknown COMPLETE BLOOD COUNT 23779 MCH 28.7 pg 2 Unknown COMPLETE BLOOD COUNT 94068 MCHC 32.3 g/dL 2 Unknown COMPLETE BLOOD COUNT 50879 PLT 245 10e9/L 03/18/20 12 Unknown COMPLETE BLOOD COUNT 84398 MPV 10.7 fL 2 Unknown COMPLETE BLOOD COUNT 69290 CRISTI % 52.9 % 2 Unknown COMPLETE BLOOD COUNT 05263 LY % 31.5 % 2 Unknown COMPLETE BLOOD COUNT 64253 MON % 12.3 % 2 Unknown COMPLETE BLOOD COUNT 30298 EOS % 2.9 % 2 Unknown COMPLETE BLOOD COUNT 87753 BASO % 0.4 % 2 Unknown COMPLETE BLOOD COUNT 20635 RDW 13.9 % 2 Unknown COMPLETE BLOOD COUNT 96431 ABS CRISTI 2.70 10e9/L 012 Unknown COMPLETE BLOOD COUNT 99357 ABS LYMPH 1.61 10e9/L 012 Unknown COMPLETE BLOOD COUNT 18086 ABS MONO 0.63 10e9/L 012 Unknown COMPLETE BLOOD COUNT 44226 ABS EOS 0.15 10e9/L 012 Unknown COMPLETE BLOOD COUNT 47005 ABS BASO 0.02 10e9/L 012 Unknown COMPLETE BLOOD COUNT 42474 RDW-SD 44.5 fL 2 Unknown FREE T4 96829 FREE T4 1.50 NG/DL 03/18/2012 Unknown LIPID GROUP 71729 HDL TEST 61 MG/DL 07/13/2011 Unknown LIPID GROUP 34487 TRIG 158 MG/DL 07/13/2011 Unknown LIPID GROUP 02920 TEST LDL 131 MG/DL 07/13/2011 Unknown LIPID GROUP 60398 CHOL 224 MG/DL 07/13/2011 Unknown LIPID GROUP 75648 RCHOL/HDL 3.67 RATIO 07/13/2011 Unknow n COMPREHENSIVE METABOLIC 28512 AST 19 U/L 2010 Unknown COMPREHENSIVE METABOLIC 01534 ALT 17 IU/L 2010 Unknown COMPREHENSIVE METABOLIC 40425 BUN 14 MG/DL 2010 Unknown COMPREHENSIVE METABOLIC 01538 ALBUMIN 4.2 GM/DL 2010 Unknown COMPREHENSIVE METABOLIC 47137 CHLORIDE 105 MMOL/L 07/13 Unknown COMPREHENSIVE METABOLIC 27971 BILI TOT 0.9 MG/DL 2010 Unknown COMPREHENSIVE METABOLIC 85239 ALK PHOS 71 U/L 2010 Unknown COMPREHENSIVE METABOLIC 10670 SODIUM 141 MMOL/L 07/13 Unknown COMPREHENSIVE METABOLIC 95231 CREATININE 0.68 MG/DL 06/25 Unknown COMPREHENSIVE METABOLIC 32428 CALCIUM 9.3 MG/DL 2010 Unknown COMPREHENSIVE METABOLIC 99941 POTASSIUM 3.8 MMOL/L 07/13 Unknown COMPREHENSIVE METABOLIC 05098 PROT TOT 6.5 GM/DL 2010 Unknown COMPREHENSIVE METABOLIC 79699 Glucose 94 MG/DL 2010 Unknown COMPREHENSIVE METABOLIC 33987 BICARB 28 MMOL/L 2010 Unknown COMPREHENSIVE METABOLIC 11268 ANION GAP 8 MEQ/L 2010 Unknown COMPLETE BLOOD COUNT 72879 WBC 5.4 10e9/L 07/13/20 11 Unknown COMPLETE BLOOD COUNT 45999 RBC 4.20 10e12/L 2010 Unknown COMPLETE BLOOD COUNT 31291 HGB 12.4 g/dL 1 Unknown COMPLETE BLOOD COUNT 74511 HCT DET 37.6 % 1 Unknown COMPLETE BLOOD COUNT 94096 MCV 89.5 fL 1 Unknown COMPLETE BLOOD COUNT 46335 MCH 29.5 pg 1 Unknown COMPLETE BLOOD COUNT 25606 MCHC 33.0 g/dL 1 Unknown COMPLETE BLOOD COUNT 73176 PLT 273 10e9/L 07/13/20 11 Unknown COMPLETE BLOOD COUNT 30732 MPV 10.7 fL 1 Unknown COMPLETE BLOOD COUNT 61501 CRISTI % 49.9 % 1 Unknown COMPLETE BLOOD COUNT 52137 LY % 35.9 % 1 Unknown COMPLETE BLOOD COUNT 14445 MON % 10.4 % 1 Unknown COMPLETE BLOOD COUNT 83783 EOS % 2.9 % 1 Unknown COMPLETE BLOOD COUNT 60759 BASO % 0.9 % 1 Unknown COMPLETE BLOOD COUNT 70177 RDW 13.8 % 1 Unknown COMPLETE BLOOD COUNT 00895 ABS CRISTI 2.69 10e9/L 011 Unknown COMPLETE BLOOD COUNT 38610 ABS LYMPH 1.94 10e9/L 011 Unknown COMPLETE BLOOD COUNT 68646 ABS MONO 0.56 10e9/L 011 Unknown COMPLETE BLOOD COUNT 94907 ABS EOS 0.16 10e9/L 011 Unknown COMPLETE BLOOD COUNT 87406 ABS BASO 0.05 10e9/L 011 Unknown COMPLETE BLOOD COUNT 96001 RDW-SD 44.4 fL 1 Unknown GFR CALC 4374535 GFR AA >60 ML/MIN 07/13/2011 Unknown GFR CALC 5654114 GFR NON-AA >60 ML/MIN 07/13/2011 Unknown FREE T4 24163 FREE T4 1.36 NG/DL 07/13/2011 Unknown THYROID STIMULATING HORMONE 03755 TSH 4.261 uIU/ML 07/13/2011 Unknown GFR CALC 7379817 GFR AA >60 ML/MIN 03/13/2011 Unknown GFR CALC 8687548 GFR NON-AA >60 ML/MIN 03/13/2011 Unknown LIPID GROUP 45988 HDL TEST 60 MG/DL 03/13/2011 Unknown LIPID GROUP 71856 TRIG 140 MG/DL 03/13/2011 Unknown LIPID GROUP 54683 TEST LDL 122 MG/DL 03/13/2011 Unknown LIPID GROUP 52177 CHOL 210 MG/DL 03/13/2011 Unknown LIPID GROUP 72605 RCHOL/HDL 3.50 RATIO 03/13/2011 Unknow n FREE T4 15774 FREE T4 1.36 NG/DL 03/13/2011 Unknown THYROID STIMULATING HORMONE 51272 TSH 7.688 uIU/ML 03/13/2011 Unknown COMPREHENSIVE METABOLIC 82157 AST 17 U/L 2010 Unknown COMPREHENSIVE METABOLIC 52195 ALT 12 IU/L 2010 Unknown COMPREHENSIVE METABOLIC 02120 BUN 19 MG/DL 2010 Unknown COMPREHENSIVE METABOLIC 21349 ALBUMIN 4.3 GM/DL 2010 Unknown COMPREHENSIVE METABOLIC 94891 CHLORIDE 105 MMOL/L 03/13 Unknown COMPREHENSIVE METABOLIC 10019 BILI TOT 0.6 MG/DL 2010 Unknown COMPREHENSIVE METABOLIC 76195 ALK PHOS 68 U/L 2010 Unknown COMPREHENSIVE METABOLIC 92175 SODIUM 139 MMOL/L 03/13 Unknown COMPREHENSIVE METABOLIC 56811 CREATININE 0.77 MG/DL 02/23 Unknown COMPREHENSIVE METABOLIC 08861 CALCIUM 9.2 MG/DL 2010 Unknown COMPREHENSIVE METABOLIC 04503 POTASSIUM 3.8 MMOL/L 03/13 Unknown COMPREHENSIVE METABOLIC 31814 PROT TOT 6.9 GM/DL 2010 Unknown COMPREHENSIVE METABOLIC 85679 Glucose 97 MG/DL 2010 Unknown COMPREHENSIVE METABOLIC 74650 BICARB 25 MMOL/L 2010 Unknown COMPREHENSIVE METABOLIC 36055 ANION GAP 9 MEQ/L 2010 Unknown FREE T4 18573 FREE T4 1.32 NG/DL 12/16/2010 Unknown COMPLETE BLOOD COUNT 70623 WBC 5.6 10e9/L 12/17/19 11 Unknown COMPLETE BLOOD COUNT 97769 RBC 4.38 10e12/L 2010 Unknown COMPLETE BLOOD COUNT 93928 HGB 12.5 g/dL 1 Unknown COMPLETE BLOOD COUNT 99154 HCT DET 38.7 % 1 Unknown COMPLETE BLOOD COUNT 00855 MCV 88.4 fL 1 Unknown COMPLETE BLOOD COUNT 16551 MCH 28.5 pg 1 Unknown COMPLETE BLOOD COUNT 83941 MCHC 32.3 g/dL 1 Unknown COMPLETE BLOOD COUNT 75710 PLT 249 10e9/L 12/17/19 11 Unknown COMPLETE BLOOD COUNT 48343 MPV 10.5 fL 1 Unknown COMPLETE BLOOD COUNT 59866 CRISTI % 52.8 % 1 Unknown COMPLETE BLOOD COUNT 70191 LY % 33.3 % 1 Unknown COMPLETE BLOOD COUNT 89462 MON % 9.8 % 1 Unknown COMPLETE BLOOD COUNT 26891 EOS % 3.4 % 1 Unknown COMPLETE BLOOD COUNT 89784 BASO % 0.7 % 1 Unknown COMPLETE BLOOD COUNT 21518 RDW 14.2 % 1 Unknown COMPLETE BLOOD COUNT 63420 ABS CRISTI 2.96 10e9/L 011 Unknown COMPLETE BLOOD COUNT 71402 ABS LYMPH 1.86 10e9/L 011 Unknown COMPLETE BLOOD COUNT 31135 ABS MONO 0.55 10e9/L 011 Unknown COMPLETE BLOOD COUNT 05079 ABS EOS 0.19 10e9/L 011 Unknown COMPLETE BLOOD COUNT 34936 ABS BASO 0.04 10e9/L 011 Unknown COMPLETE BLOOD COUNT 32675 RDW-SD 45.1 fL 1 Unknown GFR CALC [id number] GFR AA >60 ML/MIN 12/16/2010 Unknown GFR CALC 6364598 GFR NON-AA >60 ML/MIN 12/16/2010 Unknown THYROID STIMULATING HORMONE 92514 TSH 7.082 uIU/ML 12/16/2010 Unknown COMPREHENSIVE METABOLIC 27463 AST 21 U/L 2010 Unknown COMPREHENSIVE METABOLIC 39346 ALT 18 IU/L 2010 Unknown COMPREHENSIVE METABOLIC 24091 BUN 22 MG/DL 2010 Unknown COMPREHENSIVE METABOLIC 81260 ALBUMIN 4.6 GM/DL 2010 Unknown COMPREHENSIVE METABOLIC 42758 CHLORIDE 102 MMOL/L 12/16 Unknown COMPREHENSIVE METABOLIC 65624 BILI TOT 0.6 MG/DL 2010 Unknown COMPREHENSIVE METABOLIC 33823 ALK PHOS 72 U/L 2010 Unknown COMPREHENSIVE METABOLIC 90778 SODIUM 140 MMOL/L 12/16 Unknown COMPREHENSIVE METABOLIC 34972 CREATININE 0.73 MG/DL 11/23 Unknown COMPREHENSIVE METABOLIC 40965 CALCIUM 9.4 MG/DL 2010 Unknown COMPREHENSIVE METABOLIC 37371 POTASSIUM 4.2 MMOL/L 12/16 Unknown COMPREHENSIVE METABOLIC 89298 PROT TOT 7.1 GM/DL 2010 Unknown COMPREHENSIVE METABOLIC 11483 Glucose 88 MG/DL 2010 Unknown COMPREHENSIVE METABOLIC 39217 BICARB 30 MMOL/L 2010 Unknown COMPREHENSIVE METABOLIC 79992 ANION GAP 8 MEQ/L 2010 Unknown LIPID GROUP 47683 HDL TEST 66 MG/DL 12/16/2010 Unknown LIPID GROUP 93295 TRIG 154 MG/DL 12/16/2010 Unknown LIPID GROUP 44923 TEST LDL 128 MG/DL 12/16/2010 Unknown LIPID GROUP 34827 CHOL 225 MG/DL 12/16/2010 Unknown LIPID GROUP 05916 RCHOL/HDL 3.41 RATIO 12/16/2010 Unknow n Procedures Procedure Codes Date ROUTINE VENIPUNCTURE CPT-4: 64889 02/28/2022 RML ASSAY OF FREE THYROXINE CPT-4: 77533 02/28/2022 RML ASSAY THYROID STIM HORMONE CPT-4: 82546 RML COMPREHEN METABOLIC PANEL CPT-4: 00904 02/28/2022 RML COMPLETE CBC W/AUTO DIFF WBC CPT-4: 82104 022 RML LIPID PANEL CPT-4: 11110 02/28/2022 RML A1C HPLC CPT-4: 53080 02/28/2022 SARSCOV & INF VIR A&B AG IA CPT-4: 36617 08/09/2021 CLEAR OUTER EAR CANAL CPT-4: 41366 08/09/2021 ROUTINE VENIPUNCTURE CPT-4: 31985 07/20/2021 RML ASSAY OF FREE THYROXINE CPT-4: 16622 07/20/2021 RML ASSAY THYROID STIM HORMONE CPT-4: 46698 RML COMPREHEN METABOLIC PANEL CPT-4: 16075 07/20/2021 RML COMPLETE CBC W/AUTO DIFF WBC CPT-4: 34964 021 RML A1C HPLC CPT-4: 58338 07/20/2021 DESTRUCT B9 LESION 1-14 CPT-4: 53269 05/12/2021 THER/PROPH/DIAG INJ SC/IM CPT-4: 01726 03/08/2021 TRIAMCINOLONE ACET INJ NOS CPT-4: J3301 03/08/2021 ROUTINE VENIPUNCTURE CPT-4: 81880 01/31/2021 RML COMPREHEN METABOLIC PANEL CPT-4: 77805 01/31/2021 RML COMPLETE CBC W/AUTO DIFF WBC CPT-4: 86594 021 RML LIPID PANEL CPT-4: 30500 01/31/2021 RML ASSAY OF FREE THYROXINE CPT-4: 81780 01/31/2021 RML ASSAY THYROID STIM HORMONE CPT-4: 66375 RML A1C HPLC CPT-4: 45783 01/31/2021 EXC TR-EXT B9+JOSE G 0.5 CM< CPT-4: 35671 05/19/2020 PPPS, subseq visit CPT-4: G0439 05/11/2020 ROUTINE VENIPUNCTURE CPT-4: 12670 05/05/2020 RML ASSAY OF FREE THYROXINE CPT-4: 26489 05/05/2020 RML ASSAY THYROID STIM HORMONE CPT-4: 74937 0 RML COMPREHEN METABOLIC PANEL CPT-4: 99469 05/05/2020 RML COMPLETE CBC W/AUTO DIFF WBC CPT-4: 60325 020 RML LIPID PANEL CPT-4: 29868 05/05/2020 RML A1C HPLC CPT-4: 74271 05/05/2020 THER/PROPH/DIAG INJ SC/IM CPT-4: 24823 01/28/2020 TRIAMCINOLONE ACET INJ NOS CPT-4: J3301 01/28/2020 ROUTINE VENIPUNCTURE CPT-4: 07730 01/05/2020 RML ASSAY OF FREE THYROXINE CPT-4: 72471 01/05/2020 RML ASSAY THYROID STIM HORMONE CPT-4: 58255 0 RML COMPREHEN METABOLIC PANEL CPT-4: 51969 01/05/2020 RML COMPLETE CBC W/AUTO DIFF WBC CPT-4: 99807 020 ASSAY OF AMYLASE CPT-4: 04681 01/05/2020 ASSAY OF LIPASE CPT-4: 85870 01/05/2020 ROUTINE VENIPUNCTURE CPT-4: 10723 12/05/2019 RML COMPREHEN METABOLIC PANEL CPT-4: 31439 12/05/2019 ROUTINE VENIPUNCTURE CPT-4: 85326 11/05/2019 RML COMPREHEN METABOLIC PANEL CPT-4: 53741 11/05/2019 URINALYSIS NONAUTO W/O SCOPE CPT-4: 51157 10/23/2019 URINE CULTURE/ COLONY COUNT CPT-4: 93004 10/23/2019 ROUTINE VENIPUNCTURE CPT-4: 38649 10/21/2019 RML ASSAY OF FREE THYROXINE CPT-4: 70828 10/21/2019 RML ASSAY THYROID STIM HORMONE CPT-4: 66669 0 RML COMPREHEN METABOLIC PANEL CPT-4: 51164 10/21/2019 RML COMPLETE CBC W/AUTO DIFF WBC CPT-4: 57110 020 RML LIPID PANEL CPT-4: 02851 10/21/2019 HYDRATION IV INFUSION INIT CPT-4: 21513 10/20/2019 Removal impacted cerumen using irrigation/lavage, unilateral CPT-4: 91437 10/20/2019 ROUTINE VENIPUNCTURE CPT-4: 29542 04/04/2019 RML COMPLETE CBC W/AUTO DIFF WBC CPT-4: 79255 019 RML COMPREHEN METABOLIC PANEL CPT-4: 52188 04/04/2019 RML ASSAY THYROID STIM HORMONE CPT-4: 81721 9 RML ASSAY OF FREE THYROXINE CPT-4: 96098 04/04/2019 RML LIPID PANEL CPT-4: 48859 04/04/2019 PPPS, subseq visit CPT-4: G0439 11/26/2018 ROUTINE VENIPUNCTURE CPT-4: 35464 10/07/2018 RML ASSAY THYROID STIM HORMONE CPT-4: 37935 9 RML ASSAY OF FREE THYROXINE CPT-4: 15383 10/07/2018 RML COMPREHEN METABOLIC PANEL CPT-4: 21916 10/07/2018 RML COMPLETE CBC W/AUTO DIFF WBC CPT-4: 60080 019 RML LIPID PANEL CPT-4: 30027 10/07/2018 RML A1C HPLC CPT-4: 16114 10/07/2018 CERUM REMOVAL CPT-4: 90363 06/25/2018 THER/PROPH/DIAG INJ SC/IM CPT-4: 26377 05/03/2018 TRIAMCINOLONE ACET INJ NOS CPT-4: J3301 05/03/2018 Removal impacted cerumen using irrigation/lavage, unilateral CPT-4: 42612 02/19/2018 ROUTINE VENIPUNCTURE CPT-4: 55143 02/13/2018 RML ASSAY OF FREE THYROXINE CPT-4: 20992 02/13/2018 RML ASSAY THYROID STIM HORMONE CPT-4: 05187 8 RML COMPREHEN METABOLIC PANEL CPT-4: 97563 02/13/2018 RML COMPLETE CBC W/AUTO DIFF WBC CPT-4: 15059 018 ROUTINE VENIPUNCTURE CPT-4: 52814 10/15/2017 RML ASSAY OF FREE THYROXINE CPT-4: 14596 10/15/2017 RML ASSAY THYROID STIM HORMONE CPT-4: 74536 8 RML COMPREHEN METABOLIC PANEL CPT-4: 98326 10/15/2017 RML COMPLETE CBC W/AUTO DIFF WBC CPT-4: 30598 018 RML LIPID PANEL CPT-4: 98895 10/15/2017 VITAMIN B-12 CPT-4: 00058 10/15/2017 CERUM REMOVAL CPT-4: 25142 07/24/2017 ROUTINE VENIPUNCTURE CPT-4: 41391 03/30/2017 VITAMIN B-12 CPT-4: 35210 03/30/2017 ROUTINE VENIPUNCTURE CPT-4: 67356 12/18/2016 VITAMIN B-12 CPT-4: 12564 12/18/2016 PPPS, subseq visit CPT-4: G0439 12/18/2016 ROUTINE VENIPUNCTURE CPT-4: 98214 12/11/2016 RML ASSAY OF FREE THYROXINE CPT-4: 47883 12/11/2016 RML ASSAY THYROID STIM HORMONE CPT-4: 79963 7 RML COMPREHEN METABOLIC PANEL CPT-4: 34320 12/11/2016 RML COMPLETE CBC W/AUTO DIFF WBC CPT-4: 26740 017 RML LIPID PANEL CPT-4: 68412 12/11/2016 RML A1C HPLC CPT-4: 24463 12/11/2016 URINALYSIS NONAUTO W/O SCOPE CPT-4: 64266 02/07/2016 ROUTINE VENIPUNCTURE CPT-4: 51296 05/27/2015 RML ASSAY OF FREE THYROXINE CPT-4: 66544 05/27/2015 RML ASSAY THYROID STIM HORMONE CPT-4: 48157 5 RML COMPREHEN METABOLIC PANEL CPT-4: 07131 05/27/2015 RML COMPLETE CBC W/AUTO DIFF WBC CPT-4: 01251 015 RML LIPID PANEL CPT-4: 86101 05/27/2015 VITAMIN B-12 CPT-4: 52514 05/27/2015 RML A1C HPLC CPT-4: 71693 05/27/2015 PNEUMOCOCCAL VACC 13 LEN IM CPT-4: 36379 05/26/2015 ADMIN PNEUMOCOCCAL VACCINE CPT-4: G0009 05/26/2015 CUR TOBACCO NON-USER CPT-4: G8457 05/26/2015 OCCULT BLOOD FECES CPT-4: 62747 02/19/2015 OCCULT BLOOD FECES CPT-4: 76660 01/20/2015 ROUTINE VENIPUNCTURE CPT-4: 46780 12/15/2014 ASSAY OF IRON CPT-4: 70199 12/15/2014 RML COMPLETE CBC W/AUTO DIFF WBC CPT-4: 61252 015 CERUM REMOVAL CPT-4: 45239 11/30/2014 PRESCRIP TRANSMIT VIA ERX SY CPT-4: G8553 11/30/2014 ROUTINE VENIPUNCTURE CPT-4: 71406 11/26/2014 RML COMPREHEN METABOLIC PANEL CPT-4: 36170 11/26/2014 RML LIPID PANEL CPT-4: 28331 11/26/2014 ROUTINE VENIPUNCTURE CPT-4: 01469 08/14/2014 RML ASSAY OF FREE THYROXINE CPT-4: 29561 08/14/2014 RML ASSAY THYROID STIM HORMONE CPT-4: 19757 4 RML COMPREHEN METABOLIC PANEL CPT-4: 09578 08/14/2014 RML COMPLETE CBC W/AUTO DIFF WBC CPT-4: 01634 014 RML LIPID PANEL CPT-4: 97597 08/14/2014 PRESCRIP TRANSMIT VIA ERX SY CPT-4: G8553 07/23/2014 PRESCRIP TRANSMIT VIA ERX SY CPT-4: G8553 03/09/2014 PRESCRIP TRANSMIT VIA ERX SY CPT-4: G8553 02/05/2014 ROUTINE VENIPUNCTURE CPT-4: 14780 02/04/2014 RML ASSAY OF FREE THYROXINE CPT-4: 11385 02/04/2014 RML ASSAY THYROID STIM HORMONE CPT-4: 30346 4 RML COMPREHEN METABOLIC PANEL CPT-4: 02146 02/04/2014 RML COMPLETE CBC W/AUTO DIFF WBC CPT-4: 66040 014 RML LIPID PANEL CPT-4: 84551 02/04/2014 DRAIN/INJECT JOINT/BURSA CPT-4: 31096 04/07/2013 METHYLPREDNISOLONE 40 MG INJ CPT-4: J1030 04/07/2013 TRIAMCINOLONE ACET INJ NOS CPT-4: J3301 04/07/2013 PRESCRIP TRANSMIT VIA ERX SY CPT-4: G8553 04/07/2013 DRAIN/INJECT JOINT/BURSA CPT-4: 41347 10/09/2012 METHYLPREDNISOLONE 40 MG INJ CPT-4: J1030 10/09/2012 TRIAMCINOLONE ACET INJ NOS CPT-4: J3301 10/09/2012 PRESCRIP TRANSMIT VIA ERX SY CPT-4: G8553 03/28/2012 ROUTINE VENIPUNCTURE CPT-4: 99784 03/18/2012 RML ASSAY OF FREE THYROXINE CPT-4: 67774 03/18/2012 RML ASSAY THYROID STIM HORMONE CPT-4: 14594 2 RML COMPREHEN METABOLIC PANEL CPT-4: 37206 03/18/2012 RML COMPLETE CBC W/AUTO DIFF WBC CPT-4: 34615 012 RML LIPID PANEL CPT-4: 85218 03/18/2012 CERUM REMOVAL CPT-4: 87354 2012 OCCULT BLOOD FECES CPT-4: 00064 09/27/2011 CA SCREEN;PELVIC/BREAST EXAM CPT-4: G0101 09/27/2011 OBTAINING SCREEN PAP SMEAR CPT-4: Q0091 09/27/2011 CUR TOBACCO NON-USER CPT-4: G8457 09/13/2011 PRESCRIP TRANSMIT VIA ERX SY CPT-4: G8553 09/13/2011 PRESCRIP TRANSMIT VIA ERX SY CPT-4: G8553 08/07/2011 ROUTINE VENIPUNCTURE CPT-4: 58371 07/13/2011 RML ASSAY OF FREE THYROXINE CPT-4: 04199 07/13/2011 RML ASSAY THYROID STIM HORMONE CPT-4: 90063 1 RML COMPREHEN METABOLIC PANEL CPT-4: 46440 07/13/2011 RML COMPLETE CBC W/AUTO DIFF WBC CPT-4: 63368 011 RML LIPID PANEL CPT-4: 23404 07/13/2011 ROUTINE VENIPUNCTURE CPT-4: 68952 03/13/2011 RML COMPREHEN METABOLIC PANEL CPT-4: 68887 03/13/2011 RML LIPID PANEL CPT-4: 08562 03/13/2011 RML ASSAY THYROID STIM HORMONE CPT-4: 80049 1 RML ASSAY OF FREE THYROXINE CPT-4: 05426 03/13/2011 PRESCRIP TRANSMIT VIA ERX SY CPT-4: G8553 01/04/2011 ROUTINE VENIPUNCTURE CPT-4: 03557 12/16/2010 RML LIPID PANEL CPT-4: 95948 12/16/2010 RML COMPLETE CBC W/AUTO DIFF WBC CPT-4: 84156 011 RML COMPREHEN METABOLIC PANEL CPT-4: 71136 12/16/2010 RML ASSAY OF FREE THYROXINE CPT-4: 39764 12/16/2010 RML ASSAY THYROID STIM HORMONE CPT-4: 18908 1 INJ TRIGGER POINT / MUSCL CPT-4: 12044 02/14/2010 TRIAMCINOLONE ACET INJ NOS CPT-4: J3301 02/14/2010 METHYLPREDNISOLONE 40 MG INJ CPT-4: J1030 02/14/2010 THER/PROPH/DIAG INJ SC/IM CPT-4: 76296 02/07/2010 KETOROLAC TROMETHAMINE INJ CPT-4: J1885 02/07/2010 ROUTINE VENIPUNCTURE CPT-4: 15488 12/22/2009 Vital Signs Date Vital 08/07/2022 Blood Pressure 1: 134/86 Code: 8480-6 BMI: 25.8 Code: 83432-3 Heart Rate 1: 120 bpm Height: 5'10" Code: 8302-2 Respiratory Rate: 20 bpm SpO2: 97% Temperature: 36.2 (C) / 97.1 (F) Weight: 180 lbs Code: 91496-2 08/02/2022 Blood Pressure 1: 141/102 Code: 8480-6 BMI: 26.4 Code: 14761-6 Heart Rate 1: 91 bpm Height: 5'10" Code: 8302-2 SpO2: 98% Temperature: 36.2 (C) / 97.1 (F) Weight: 184 lbs Code: 72608-4 06/26/2022 Blood Pressure 1: 132/78 Code: 8480-6 BMI: 25.5 Code: 72309-8 Heart Rate 1: 96 bpm Height: 5'10" Code: 8302-2 SpO2: 98% Temperature: 36.2 (C) / 97.2 (F) Weight: 178 lbs Code: 25146-4 05/22/2022 Blood Pressure 1: 126/82 Code: 8480-6 BMI: 25.5 Code: 10528-2 Heart Rate 1: 104 bpm Height: 5'10" Code: 8302-2 Respiratory Rate: 20 bpm SpO2: 96% Temperature: 36.8 (C) / 98.2 (F) Weight: 178 lbs Code: 53158-2 02/27/2022 Blood Pressure 1: 142/82 Code: 8480-6 BMI: 25.5 Code: 45900-9 Heart Rate 1: 112 bpm Height: 5'10" Code: 8302-2 Respiratory Rate: 20 bpm SpO2: 96% Temperature: 36.8 (C) / 98.3 (F) Weight: 178 lbs Code: 03105-7 11/23/2021 Blood Pressure 1: 136/82 Code: 8480-6 BMI: 25.7 Code: 75177-1 Heart Rate 1: 72 bpm Height: 5'10" Code: 8302-2 Respiratory Rate: 20 bpm SpO2: 98% Temperature: 36.6 (C) / 97.9 (F) Weight: 179 lbs Code: 99815-4 10/12/2021 Blood Pressure 1: 128/92 Code: 8480-6 BMI: 25.5 Code: 88583-0 Heart Rate 1: 68 bpm Height: 5'10" Code: 8302-2 Respiratory Rate: 20 bpm SpO2: 98% Temperature: 36.7 (C) / 98.1 (F) Weight: 178 lbs Code: 48758-1 08/09/2021 Blood Pressure 1: 127/80 Code: 8480-6 Heart Rate 1: 69 bpm Respiratory Rate: 15 bpm SpO2: 98% Temperature: 36.7 (C) / 98.0 (F) We ight: 171 lbs Code: 92828-1 07/28/2021 Blood Pressure 1: 132/78 Code: 8480-6 Heart Rate 1: 76 bpm Respiratory Rate: 20 bpm SpO2: 96% Temperature: 36.8 (C) / 98.2 (F) We ight: 174 lbs Code: 27207-1 05/12/2021 Blood Pressure 1: 142/80 Code: 8480-6 Heart Rate 1: 76 bpm Respiratory Rate: 20 bpm SpO2: 96% Temperature: 36.8 (C) / 98.2 (F) We ight: 173 lbs Code: 06065-3 03/08/2021 Blood Pressure 1: 124/80 Code: 8480-6 Heart Rate 1: 88 bpm Respiratory Rate: 20 bpm SpO2: 98% Temperature: 36.8 (C) / 98.3 (F) We ight: 175 lbs Code: 04504-7 02/03/2021 Blood Pressure 1: 144/84 Code: 8480-6 Heart Rate 1: 68 bpm Respiratory Rate: 20 bpm SpO2: 97% Temperature: 36.7 (C) / 98.1 (F) We ight: 182 lbs Code: 50719-6 01/04/2021 Blood Pressure 1: 152/86 Code: 8480-6 Heart Rate 1: 72 bpm Respiratory Rate: 20 bpm SpO2: 97% Temperature: 36.6 (C) / 97.8 (F) We ight: 182 lbs Code: 64221-8 10/05/2020 Blood Pressure 1: 124/66 Code: 8480-6 He art Rate 1: 65 bpm 09/20/2020 Blood Pressure 1: 134/76 Code: 8480-6 Heart Rate 1: 60 bpm Respiratory Rate: 20 bpm SpO2: 97% Temperature: 36.1 (C) / 97.0 (F) We ight: 187 lbs Code: 02187-2 05/28/2020 Temperature: 36.8 (C) / 98.3 (F) 05/19/2020 Blood Pressure 1: 128/78 Code: 8480-6 Heart Rate 1: 50 bpm Respiratory Rate: 20 bpm SpO2: 98% Temperature: 36.5 (C) / 97.7 (F) 05/11/2020 Blood Pressure 1: 126/80 Code: 8480-6 BMI: 25.4 Code: 45730-1 Heart Rate 1: 60 bpm Height: 5'10" Code: 8302-2 Respiratory Rate: 20 bpm Temperat ure: 36.6 (C) / 97.8 (F) Weight: 177 lbs Code: 05833-3 05/05/2020 Blood Pressure 1: 122/78 Code: 8480-6 [...] 1: 104/66 Code: 8480-6 BMI: 25.4 Code: 56385-6 Heart Rate 1: 56 bpm Height: 5'10" Code: 8302-2 Respiratory Rate: 20 bpm SpO2: 97% Temperature: 36.6 (C) / 97.8 (F) Weight: 177 lbs Code: 48336-7 10/29/2019 Blood Pressure 1: 114/62 Code: 8480-6 Heart Rate 1: 68 bpm Respiratory Rate: 20 bpm SpO2: 99% Temperature: 36.8 (C) / 98.2 (F) 10/20/2019 Blood Pressure 1: 119/74 Code: 8480-6 Heart Rate 1: 57 bpm Respiratory Rate: 16 bpm SpO2: 99% Temperature: 36.9 (C) / 98.4 (F) We ight: 176 lbs Code: 38955-4 07/07/2019 Blood Pressure 1: 126/74 Code: 8480-6 Heart Rate 1: 72 bpm Respiratory Rate: 16 bpm SpO2: 95% Temperature: 36.8 (C) / 98.2 (F) We ight: 179 lbs Code: 90936-1 05/01/2019 Blood Pressure 1: 126/76 Code: 8480-6 Heart Rate 1: 60 bpm Respiratory Rate: 20 bpm SpO2: 97% Temperature: 36.8 (C) / 98.2 (F) 04/15/2019 Blood Pressure 1: 154/94 Code: 8480-6 BMI: 26.0 Code: 21513-2 Heart Rate 1: 60 bpm Height: 5'10" Code: 8302-2 Respiratory Rate: 18 bpm SpO2: 97% Temperature: 36.6 (C) / 97.9 (F) Weight: 181 lbs Code: 23883-7 11/26/2018 Blood Pressure 1: 142/80 Code: 8480-6 BMI: 26.3 Code: 59712-3 Heart Rate 1: 56 bpm Height: 5'10" Code: 8302-2 Respiratory Rate: 20 bpm SpO2: 97% Temperature: 36.9 (C) / 98.4 (F) Weight: 183 lbs Code: 55247-5 08/08/2018 Blood Pressure 1: 126/68 Code: 8480-6 Heart Rate 1: 76 bpm Height: 5'10" Code: 8302-2 Respiratory Rate: 20 bpm SpO2: 97% Temperature: 36 .7 (C) / 98.0 (F) Weight: Code: 29949-4 06/25/2018 Blood Pressure 1: 112/70 Code: 8480-6 BMI: 25.8 Code: 22018-5 Heart Rate 1: 64 bpm Height: 5'10" Code: 8302-2 Respiratory Rate: 20 bpm SpO2: 95% Temperature: 36.9 (C) / 98.4 (F) Weight: 180 lbs Code: 75330-6 05/20/2018 Blood Pressure 1: 132/100 Code: 8480-6 H eart Rate 1: 76 bpm 05/10/2018 Blood Pressure 1: 144/86 Code: 8480-6 Heart Rate 1: 60 bpm Respiratory Rate: 20 bpm SpO2: 97% Temperature: 36.9 (C) / 98.4 (F) We ight: Code: 46731-4 05/03/2018 Blood Pressure 1: 126/92 Code: 8480-6 Bl ood Pressure 2: 147/79 Code: 8480-6 Heart Rate 1: 64 bpm Height: 5'10" Code: 8302-2 Respiratory Rate : 22 bpm SpO2: 98% Temperature: 36.3 (C) / 97.3 (F) Weight: Code: 42411- 7 04/22/2018 Blood Pressure 1: 140/82 Code: 8480-6 BMI: 26.3 Code: 31984-6 Heart Rate 1: 60 bpm Height: 5'10" Code: 8302-2 Respiratory Rate: 20 bpm SpO2: 95% Temperature: 36.8 (C) / 98.2 (F) Weight: 183 lbs Code: 30478-4 03/05/2018 Blood Pressure 1: 122/64 Code: 8480-6 BMI: 25.7 Code: 63259-9 Heart Rate 1: 82 bpm Height: 5'10" Code: 8302-2 Respiratory Rate: 22 bpm SpO2: 96% Temperature: 36.4 (C) / 97.6 (F) Weight: 179 lbs Code: 87206-7 02/19/2018 Blood Pressure 1: 120/84 Code: 8480-6 Heart Rate 1: 68 bpm SpO2: 96% Temperature: 36.2 (C) / 97.2 (F) Weight: Code: 94363-2 02/13/2018 Blood Pressure 1: 138/90 Cod e: 8480-6 10/18/2017 Blood Pressure 1: 122/78 Code: 8480-6 BMI: 26.5 Code: 35041-9 Heart Rate 1: 72 bpm Height: 5'10" Code: 8302-2 Respiratory Rate: 20 bpm Temperat ure: 36.7 (C) / 98.0 (F) Weight: 185 lbs Code: 01813-4 07/24/2017 Blood Pressure 1: 118/68 Code: 8480-6 Heart Rate 1: 82 bpm Height: 5'10" Code: 8302-2 Respiratory Rate: 20 bpm SpO2: 92% Temperature: 36 .4 (C) / 97.6 (F) Weight: Code: 11856-2 06/14/2017 Blood Pressure 1: 156/98 Code: 8480-6 Heart Rate 1: 84 bpm Height: 5'10" Code: 8302-2 Respiratory Rate: 20 bpm SpO2: 96% Temperature: 36 .9 (C) / 98.5 (F) Weight: Code: 14159-8 06/01/2017 Blood Pressure 1: 122/82 Code: 8480-6 Heart Rate 1: 68 bpm Height: 5'10" Code: 8302-2 Respiratory Rate: 20 bpm Temperature: 36.8 (C) / 98.2 (F) 03/30/2017 Blood Pressure 1: 124/78 Code: 8480-6 Heart Rate 1: 88 bpm Height: 5'10" Code: 8302-2 Respiratory Rate: 20 bpm SpO2: 96% Temperature: 36 .9 (C) / 98.4 (F) Weight: Code: 25275-6 01/17/2017 Blood Pressure 1: 126/74 Code: 8480-6 Heart Rate 1: 72 bpm Height: 5'10" Code: 8302-2 Respiratory Rate: 20 bpm SpO2: 96% Temperature: 37 .0 (C) / 98.6 (F) Weight: Code: 25588-0 12/18/2016 Blood Pressure 1: 128/86 Code: 8480-6 BMI: 24.7 Code: 53358-0 Heart Rate 1: 76 bpm Height: 5'10" Code: 8302-2 Respiratory Rate: 20 bpm SpO2: 96% Temperature: 36.8 (C) / 98.3 (F) Weight: 172 lbs Code: 71930-8 11/02/2016 Blood Pressure 1: 128/80 Code: 8480-6 BMI: 24.7 Code: 45600-3 Heart Rate 1: 72 bpm Height: 5'10" Code: 8302-2 Respiratory Rate: 20 bpm SpO2: 94% Temperature: 36.9 (C) / 98.4 (F) Weight: 172 lbs Code: 61035-4 10/24/2016 Blood Pressure 1: 120/78 Code: 8480-6 BMI: 24.7 Code: 06593-5 Heart Rate 1: 88 bpm Height: 5'10" Code: 8302-2 Respiratory Rate: 18 bpm SpO2: 96% Temperature: 36.5 (C) / 97.7 (F) Weight: 172 lbs Code: 08536-7 02/07/2016 Heart Rate 1: 76 bpm Respiratory Rate: 22 bpm SpO2: 96 % Temperature: 36.4 (C) / 97.6 (F) Weight: Code: 96585-3 05/26/2015 Blood Pressure 1: 124/70 Code: 8480-6 BMI: 25.1 Code: 04761-8 Heart Rate 1: 84 bpm Height: 5'10" Code: 8302-2 Respiratory Rate: 20 bpm Temperat ure: 36.7 (C) / 98.1 (F) Weight: 175 lbs Code: 50085-3 11/30/2014 Blood Pressure 1: 142/94 Code: 8480-6 BMI: 25.1 Code: 69232-3 Heart Rate 1: 80 bpm Height: 5'10" Code: 8302-2 Respiratory Rate: 20 bpm Temperat ure: 36.9 (C) / 98.5 (F) Weight: 175 lbs Code: 62229-0 07/23/2014 Blood Pressure 1: 138/86 Code: 8480-6 BMI: 25.0 Code: 29273-4 Heart Rate 1: 80 bpm Height: 5'10" Code: 8302-2 Respiratory Rate: 20 bpm Temperat ure: 36.4 (C) / 97.6 (F) Weight: 174 lbs Code: 33405-3 03/09/2014 Blood Pressure 1: 122/78 Code: 8480-6 BMI: 25.0 Code: 50706-0 Heart Rate 1: 78 bpm Height: 5'10" Code: 8302-2 Respiratory Rate: 24 bpm Temperat ure: 36.4 (C) / 97.6 (F) Weight: 174 lbs Code: 50124-4 02/05/2014 Blood Pressure 1: 132/80 Code: 8480-6 BMI: 25.0 Code: 66995-5 Heart Rate 1: 84 bpm Height: 5'10" Code: 8302-2 Respiratory Rate: 20 bpm Temperat ure: 36.6 (C) / 97.9 (F) Weight: 174 lbs Code: 08180-0 05/12/2013 Blood Pressure 1: 138/94 Code: 8480-6 BMI: 25.1 Code: 41469-4 Heart Rate 1: 92 bpm Height: 5'10" Code: 8302-2 Respiratory Rate: 20 bpm Temperat ure: 36.7 (C) / 98.1 (F) Weight: 175 lbs Code: 94807-6 04/07/2013 Blood Pressure 1: 136/72 Code: 8480-6 BMI: 25.1 Code: 64778-9 Heart Rate 1: 76 bpm Height: 5'10" Code: 8302-2 Respiratory Rate: 20 bpm Temperat ure: 36.7 (C) / 98.0 (F) Weight: 175 lbs Code: 87552-5 03/31/2013 Blood Pressure 1: 132/94 Code: 8480-6 BMI: 25.1 Code: 46661-4 Heart Rate 1: 76 bpm Height: 5'10" Code: 8302-2 Respiratory Rate: 20 bpm Temperat ure: 36.7 (C) / 98.0 (F) Weight: 175 lbs Code: 65057-4 10/09/2012 Blood Pressure 1: 132/80 Code: 8480-6 BMI: 24.8 Code: 64972-5 Heart Rate 1: 88 bpm Height: 5'10" Code: 8302-2 Temperature: 36.8 (C) / 98.3 (F) Weight: 173 lbs Code: 04922-8 03/28/2012 Blood Pressure 1: 126/82 Code: 8480-6 BMI: 24.7 Code: 21296-2 Heart Rate 1: 72 bpm Height: 5'10" Code: 8302-2 Respiratory Rate: 20 bpm Temperat ure: 36.6 (C) / 97.8 (F) Weight: 172 lbs Code: 22867-8 2012 Blood Pressure 1: 130/72 Code: 8480-6 Heart Rate 1: 80 bpm Height: Code: 8302-2 Temperature: 36.5 (C) / 97.7 (F) Weight: Code: 78630- 7 09/27/2011 Blood Pressure 1: 116/78 Code: 8480-6 BMI: 24.4 Code: 25551-0 Heart Rate 1: 76 bpm Height: 5'10" Code: 8302-2 Respiratory Rate: 20 bpm Temperat ure: 36.9 (C) / 98.4 (F) Weight: 170 lbs Code: 74105-2 09/13/2011 Blood Pressure 1: 124/82 Code: 8480-6 BMI: 24.4 Code: 70611-1 Heart Rate 1: 72 bpm Height: 5'10" Code: 8302-2 Respiratory Rate: 20 bpm Temperat ure: 36.4 (C) / 97.6 (F) Weight: 170 lbs Code: 58850-0 08/07/2011 Blood Pressure 1: 110/74 Code: 8480-6 BMI: 23.2 Code: 80824-1 Heart Rate 1: 60 bpm Height: 5'11" Code: 8302-2 Temperature: 36.4 (C) / 97.5 (F) Weight: 166 lbs Code: 68338-9 02/06/2011 Blood Pressure 1: 96/58 Code : 8480-6 01/20/2011 Blood Pressure 1: 112/78 Cod e: 8480-6 01/12/2011 Blood Pressure 1: 110/48 Code: 8480-6 He art Rate 1: 84 bpm 01/04/2011 Blood Pressure 1: 126/80 Code: 8480-6 Heart Rate 1: 76 bpm Temperature: 36.9 (C) / 98.4 (F) Weight: 168 lbs Code: 88907-5 02/14/2010 Blood Pressure 1: 134/82 Code: 8480-6 Heart Rate 1: 88 bpm Temperature: 36.6 (C) / 97.9 (F) 02/07/2010 Blood Pressure 1: 130/80 Code: 8480-6 BMI: 23.4 Code: 80956-0 Heart Rate 1: 84 bpm Height: 5'10" Code: 8302-2 Temperature: 36.4 (C) / 97.6 (F) Weight: 163 lbs Code: 22275-8 Functional Status No Functional Status data Reason [...] Diagnosis: Right humeral fracture[ICD10: S42.301A] Patricia DAVID [employer] [address] [place] [address] CPT-4: 34249 08/07/2022 ([id number]) OFFICE/OUTPATIENT VISIT EST Diagnosis: Atrial fibrillation and flutter[ICD10: I48.91] Diagnosis: Essential (primary) hypertension[ICD10: I10] Diagnosis: Stress[ICD10: F43.9] Diagnosis: Cough[ICD10: R05.9] Yvette DAVID [address] [address] CPT-4: 18023 08/02/20 22 ([id number]) OFFICE/OUTPATIENT VISIT EST Diagnosis: Atrial fibrillation and flutter[ICD10: I48.91] Yvette DAVID DO [address] [address] CPT- 4: 05596 06/26/2022 ([id number]) OFFICE/OUTPATIENT VISIT EST Diagnosis: Chronic atrial fibrillation[ICD10: I48.20] Diagnosis: Essential hypertension[ICD10: I10] Diagnosis: Skin cancer of arm[ICD10: C44.601] Diagnosis: Mild chronic obstructive pulmonary disease[ICD10: J44.9] Yvette DAVID [address] [address] CPT-4: 00535 05/22/2022 ([id number]) NURSE/OUTPATIENT VISIT EST Diagnosis: Atrial fibrillation and flutter[ICD10: I48.91] Diagnosis: Hypothyroidism[ICD10: E03.9] Diagnosis: Mixed hyperlipidemia[ICD10: E78.2] Diagnosis: Anemia, unspecified[ICD10: D64.9] Diagnosis: Essential (primary) hypertension[ICD10: I10] Diagnosis: Hyperglycemia, unspecified[ICD10: R73.9] Yvette DAVID [address] [address] CPT- 4: 10316 02/28/2022 ([id number]) OFFICE/OUTPATIENT VISIT EST Diagnosis: Atypical nevus of right forearm[ICD10: D22.61] Diagnosis: Unspecified atrial flutter[ICD10: I48.92] Diagnosis: Atrial fibrillation and flutter[ICD10: I48.91] Yvette DAVID DO [address] [address] CPT- 4: 61669 02/27/2022 ([id number]) OFFICE/OUTPATIENT VISIT EST Diagnosis: Anxiety[ICD10: F41.9] Yvette DAVID [address] [address] CPT-4: 13890 11/23/2021 ([id number]) OFFICE/OUTPATIENT VISIT EST Diagnosis: Anxiety[ICD10: F41.9] Diagnosis: Stress reaction[ICD10: F43.0] Yvette DAVID [address] [address] CPT-4: 57339 10/12/2021 ([id number]) OFFICE/OUTPATIENT VISIT EST Diagnosis: Contact with and (suspected) exposure to covid-19[ICD10: Z20.822] Diagnosis: Nasopharyngitis[ICD10: J00] Diagnosis: Acute foreign body of left ear canal, initial encounter[ICD10: T16.2XXA] Diagnosis: Acute foreign body of right ear canal[ICD10: T16.1XXA] Martina Jessica YVETTE DAVID [address] [address] CPT-4: 20400 08/09/2021 ([id number]) OFFICE/OUTPATIENT VISIT EST Diagnosis: Essential (primary) hypertension[ICD10: I10] Diagnosis: Hypothyroidism[ICD10: E03.9] Diagnosis: Paroxysmal atrial fibrillation[ICD10: I48.0] Diagnosis: Hyperglycemia, unspecified[ICD10: R73.9] Yvette DAVID [address] [address] CPT- 4: 45424 07/28/2021 ([id number]) NURSE/OUTPATIENT VISIT EST Diagnosis: Mixed hyperlipidemia[ICD10: E78.2] Diagnosis: Anemia, unspecified[ICD10: D64.9] Diagnosis: Essential (primary) hypertension[ICD10: I10] Diagnosis: Hypothyroidism, unspecified[ICD10: E03.9] Diagnosis: Hyperglycemia, unspecified[ICD10: R73.9] Yvette DAVID [address] [address] CPT- 4: 22926 07/20/2021 ([id number]) OFFICE/OUTPATIENT VISIT EST Diagnosis: Grieving[ICD10: F43.21] Diagnosis: Inflamed seborrheic keratosis[ICD10: L82.0] Yvette DAVID DO [address] [address] CPT- 4: 23760 05/12/2021 ([id number]) OFFICE/OUTPATIENT VISIT EST Diagnosis: Rhus dermatitis[ICD10: L25.5] Yvette DAVID [address] [address] CPT-4: 33876 03/08/2021 ([id number]) OFFICE/OUTPATIENT VISIT EST Diagnosis: Essential hypertension[ICD10: I10] Diagnosis: Chronic atrial fibrillation[ICD10: I48.20] Diagnosis: Mixed hyperlipidemia[ICD10: E78.2] Diagnosis: Hyperglycemia, unspecified[ICD10: R73.9] Diagnosis: Depression[ICD10: F32.9] Yvette LUNDY [address] [address] CPT-4: 10872 02/03/2021 ([id number]) NURSE/OUTPATIENT VISIT EST Diagnosis: Hyperglycemia, unspecified[ICD10: R73.9] Diagnosis: Mixed hyperlipidemia[ICD10: E78.2] Diagnosis: Essential (primary) hypertension[ICD10: I10] Diagnosis: Hypothyroidism, unspecified[ICD10: E03.9] Yvette DAVID DO [address] [address] CPT- 4: 39276 01/31/2021 ([id number]) OFFICE/OUTPATIENT VISIT EST Diagnosis: Vertigo[ICD10: R42] Diagnosis: Chronic atrial fibrillation[ICD10: I48.20] Diagnosis: Cerumen impaction[ICD10: H61.20] Diagnosis: Depression[ICD10: F32.9] Yvette CHAIREZ [address] [address] CPT-4: 59702 01/04/2021 ([id number]) NURSE/OUTPATIENT VISIT EST Diagnosis: Essential hypertension[ICD10: I10] Yvette DAVID DO [address] [address] CPT-4: 38487 10/05/2020 ([id number]) OFFICE/OUTPATIENT VISIT EST Diagnosis: Chronic atrial fibrillation[ICD10: I48.20] Diagnosis: Dizziness[ICD10: R42] Yvette DAVID DO [address] [address] CPT-4: 33268 09/20/2020 ([id number]) NURSE/OUTPATIENT VISIT EST Diagnosis: Dysplastic nevus of right lower extremity[ICD10: D23.71] Yvette DAVID DO [address] [address] CPT-4: 08378 05/28/2020 ([id number]) NURSE/OUTPATIENT VISIT EST Diagnosis: Essential (primary) hypertension[ICD10: I10] Diagnosis: Type 2 diabetes mellitus with hyperglycemia[ICD10: E11.65] Diagnosis: Anemia, unspecified[ICD10: D64.9] Diagnosis: Hypothyroidism, unspecified[ICD10: E03.9] Yvette DAVID DO [address] [address] CPT- 4: 99469 05/05/2020 ([id number]) OFFICE/OUTPATIENT VISIT EST Diagnosis: 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] Diagnosis: Paroxysmal atrial fibrillation[ICD10: I48.0] Yvette DAVID DO [address] [address] CPT- 4: 11639 02/11/2020 ([id number]) OFFICE/OUTPATIENT VISIT EST Diagnosis: Dermatitis[ICD10: L30.9] Diagnosis: 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] Diagnosis: Chronic pruritus[ICD10: L29.9] Yvette DAVID DO [address] [address] CPT-4: 03379 01/28/2020 ([id number]) OFFICE/OUTPATIENT VISIT EST Diagnosis: Diarrhea, unspecified[ICD10: R19.7] Diagnosis: Dizziness[ICD10: R42] Diagnosis: Generalized pruritus[ICD10: L29.9] Yvette COREA S. ORENDER DO [address] [address] CPT-4: 40183 01/05/2020 ([id number]) NURSE/OUTPATIENT VISIT EST Diagnosis: Renal insufficiency[ICD10: N28.9] Yvette Shahid S. ORENDER DO [address] [address] CPT-4: 66351 12/05/2019 ([id number]) NURSE/OUTPATIENT VISIT EST Diagnosis: Renal insufficiency[ICD10: N28.9] Diagnosis: Dehydration[ICD10: E86.0] Yvette STUART CristiGarrett ORE NDER DO [address] [address] CPT-4: 24218 11/05/2019 ([id number]) OFFICE/OUTPATIENT VISIT EST Diagnosis: Chronic atrial fibrillation[ICD10: I48.20] Diagnosis: Renal insufficiency[ICD10: N28.9] Diagnosis: Dizziness and giddiness[ICD10: R42] Yvette COLEMAN S. ORENDER DO [address] [address] CPT-4: 42973 10/29/2019 ([id number]) NURSE/OUTPATIENT VISIT EST Diagnosis: Hematuria, unspecified[ICD10: R31.9] Yvette MENA S. ORENDER DO [address] [address] CPT-4: 96863 10/23/2019 ([id number]) NURSE/OUTPATIENT VISIT EST Diagnosis: Encounter for general adult medical examination without abnormal findings[ICD10: Z00.00] Diagnosis: Essential (primary) hypertension[ICD10: I10] Diagnosis: Hypothyroidism, unspecified[ICD10: E03.9] Diagnosis: Mixed hyperlipidemia[ICD10: E78.2] Yvette COREA CristiGarrett ORENDER [address] [address] CPT-4: 86418 10/21/2019 ([id number]) OFFICE/OUTPATIENT VISIT EST Diagnosis: Cerumen impaction[ICD10: H61.20] Diagnosis: Dizziness[ICD10: R42] Diagnosis: Gastritis[ICD10: K29.70] Diagnosis: Dehydration[ICD10: E86.0] Natalee SULLIVAN [address] [address] CPT-4: 82046 10/20/2019 ([id number]) OFFICE/OUTPATIENT VISIT EST Diagnosis: Paroxysmal atrial fibrillation[ICD10: I48.0] Diagnosis: Essential hypertension[ICD10: I10] Yvette DAVID DO [address] [address] CPT-4: 99820 07/07/2019 ([id number]) OFFICE/OUTPATIENT VISIT EST Diagnosis: Essential (primary) hypertension[ICD10: I10] Yvette DAVID DO [address] [address] CPT- 4: 04624 05/01/2019 ([id number]) OFFICE/OUTPATIENT VISIT EST Diagnosis: Essential (primary) hypertension[ICD10: I10] Diagnosis: Localized edema[ICD10: R60.0] Yvette DAVID DO [address] [address] CPT-4: 02489 04/15/2019 ([id number]) NURSE/OUTPATIENT VISIT EST Diagnosis: Essential (primary) hypertension[ICD10: I10] Diagnosis: Hypothyroidism, unspecified[ICD10: E03.9] Diagnosis: Mixed hyperlipidemia[ICD10: E78.2] Yvette BUSTOSNDER [address] [address] CPT-4: 30091 04/04/2019 ([id number]) NURSE/OUTPATIENT VISIT EST Diagnosis: Essential (primary) hypertension[ICD10: I10] Diagnosis: Hyperglycemia, unspecified[ICD10: R73.9] Diagnosis: Hypothyroidism, unspecified[ICD10: E03.9] Diagnosis: Mixed hyperlipidemia[ICD10: E78.2] Yvette DAVID [address] [address] CPT-4: 01490 10/07/2018 ([id number]) OFFICE/OUTPATIENT VISIT EST Diagnosis: Essential (primary) hypertension[ICD10: I10] Diagnosis: Presence of right artificial knee joint[ICD10: Z96.651] Diagnosis: Unspecified hearing loss, left ear[ICD10: H91.92] Yvette DAVID [address] [address] CPT- 4: 83069 08/08/2018 OFFICE/OUTPATIENT VISIT EST Diagnosis: Impacted cerumen, bilateral[ICD10: H61.23] Diagnosis: Vertigo of central origin, bilateral[ICD10: H81.43] Diagnosis: Essential (primary) hypertension[ICD10: I10] Diagnosis: Paroxysmal atrial fibrillation[ICD10: I48.0] Diagnosis: Dizziness and giddiness[ICD10: R42] Diagnosis: Sudden idiopathic hearing loss, left ear[ICD10: H91.22] Yvette DAVID [address] [address] CPT-4: 47532 06/25/2018 ([id number]) OFFICE/OUTPATIENT VISIT EST Diagnosis: Essential (primary) hypertension[ICD10: I10] Diagnosis: Vertigo of central origin, bilateral[ICD10: H81.43] Yvette DAVID [address] [address] CPT-4: 80703 05/10/2018 ([id number]) OFFICE/OUTPATIENT VISIT EST Diagnosis: Allergic rhinitis due to pollen[ICD10: J30.1] Diagnosis: Dizziness and giddiness[ICD10: R42] Diagnosis: Vertigo of central origin, bilateral[ICD10: H81.43] Diagnosis: Essential (primary) hypertension[ICD10: I10] Yvette DAVID DO [address] [address] CPT- 4: 02851 05/03/2018 OFFICE/OUTPATIENT VISIT EST Diagnosis: Hypothyroidism, unspecified[ICD10: E03.9] Diagnosis: Mixed hyperlipidemia[ICD10: E78.2] Diagnosis: Essential (primary) hypertension[ICD10: I10] Diagnosis: Paroxysmal atrial fibrillation[ICD10: I48.0] Diagnosis: Obstructive sleep apnea (adult) (pediatric)[ICD10: G47.33] Diagnosis: Unilateral primary osteoarthritis, right knee[ICD10: M17.11] Yvette DAVID DO [address] [address] CPT-4: 80223 04/22/2018 ([id number]) OFFICE/OUTPATIENT VISIT EST Diagnosis: Zoster without complications[ICD10: B02.9] Natalee DAVID DO [address] [address] CPT- 4: 37663 03/05/2018 ([id number]) NURSE/OUTPATIENT VISIT EST Diagnosis: Hypothyroidism, unspecified[ICD10: E03.9] Diagnosis: Mixed hyperlipidemia[ICD10: E78.2] Diagnosis: Essential (primary) hypertension[ICD10: I10] Diagnosis: Paroxysmal atrial fibrillation[ICD10: I48.0] Yvette DAVID DO [address] [address] CPT- 4: 82690 02/13/2018 ([id number]) OFFICE/OUTPATIENT VISIT EST Diagnosis: Obstructive sleep apnea (adult) (pediatric)[ICD10: G47.33] Diagnosis: Essential (primary) hypertension[ICD10: I10] Diagnosis: Paroxysmal atrial fibrillation[ICD10: I48.0] Yvette DAVID DO [address] [address] CPT- 4: 97272 10/18/2017 ([id number]) OFFICE/OUTPATIENT VISIT EST Diagnosis: Hypothyroidism, unspecified[ICD10: E03.9] Diagnosis: Other vitamin B12 deficiency anemias[ICD10: D51.8] Diagnosis: Essential (primary) hypertension[ICD10: I10] Diagnosis: Mixed hyperlipidemia[ICD10: E78.2] Yvette SIMMS NAHOMY DAVID DO [facility] [address] [place] [address] CPT-4: 64277 10/15/2017 OFFICE/OUTPATIENT VISIT EST Diagnosis: Impacted cerumen, bilateral[ICD10: H61.23] Diagnosis: Acute sinusitis, unspecified[ICD10: J01.90] Natalee DAVID [employer] [address] [address] CPT- 4: 22359 07/24/2017 ([id number]) OFFICE/OUTPATIENT VISIT EST Diagnosis: Obstructive sleep apnea (adult) (pediatric)[ICD10: G47.33] Diagnosis: Tachycardia, unspecified[ICD10: R00.0] Yvette QUINONES Michael TAYLOR[address] [address] CPT-4: 50010 06/14/2017 ([id number]) OFFICE/OUTPATIENT VISIT EST Diagnosis: Zoster without complications[ICD10: B02.9] Demi Rocha YVETTE DAVID [address] [address] CPT- 4: 87652 06/01/2017 ([id number]) OFFICE/OUTPATIENT VISIT EST Diagnosis: Essential (primary) hypertension[ICD10: I10] Diagnosis: Tachycardia, unspecified[ICD10: R00.0] Diagnosis: Other vitamin B12 deficiency anemias[ICD10: D51.8] Yvettelynnette David YVETTE Michael DAVID [employer] [address] [place] [address] CPT- 4: 27466 03/30/2017 ([id number]) OFFICE/OUTPATIENT VISIT EST Diagnosis: Essential (primary) hypertension[ICD10: I10] Diagnosis: Other fatigue[ICD10: R53.83] Diagnosis: Other chest pain[ICD10: R07.89] Diagnosis: Snoring[ICD10: R06.83] Yvette Vega [address] [address] CPT-4: 15880 01/17/2017 ([id number]) OFFICE/OUTPATIENT VISIT EST Diagnosis: Encounter for general adult medical examination without abnormal findings[ICD10: Z00.00] Diagnosis: Hypothyroidism, unspecified[ICD10: E03.9] Diagnosis: Essential (primary) hypertension[ICD10: I10] Diagnosis: Mixed hyperlipidemia[ICD10: E78.2] Diagnosis: Other jail (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[ICD10: Z79.899] Diagnosis: Hyperglycemia, unspecified[ICD10: R73.9] Yvette DAVID [address] [address] CPT- 4: 62569 12/11/2016 ([id number]) OFFICE/OUTPATIENT VISIT EST Diagnosis: URI, ACUTE[ICD10: J06.9] Diagnosis: Cough[ICD10: R05] Yvette MERCADOLINE CristiGarrett JOANN [address] [address] CPT-4: 08281 11/02/19 ([id number]) OFFICE/OUTPATIENT VISIT EST Diagnosis: Acute upper respiratory infection, unspecified[ICD10: J06.9] Elidia MERCADOLINE CristiGarrett JOANN [address] [address] CPT-4: 86561 10/24/2016 ([id number]) OFFICE/OUTPATIENT VISIT EST Diagnosis: Nausea[ICD10: R11.0] Diagnosis: Diarrhea, unspecified[ICD10: R19.7] Diagnosis: Dizziness and giddiness[ICD10: R42] Elidia DILLONBRUNA COLEMAN Michael DAVID [address] [address] CPT-4: 03050 02/07/2016 ([id number]) OFFICE/OUTPATIENT VISIT EST Diagnosis: HYPOTHYROIDISM[ICD9: 244.9] Diagnosis: HYPERLIPIDEMIA NEC/NOS[ICD9: 272.4] Diagnosis: ANEMIA NOS[ICD9: 285.9] Diagnosis: HYPERTENSION[ICD9: 401.9] Diagnosis: Neuropathy[ICD9: 355.9] Yvette [facility] [address] [place] [address] CPT-4: 82144 05/27/2015 ([id number]) OFFICE/OUTPATIENT VISIT EST Diagnosis: Neuropathy[ICD9: 355.9] Diagnosis: Foot pain[ICD9: 729.5] Diagnosis: HYPOTHYROIDISM[ICD9: 244.9] Diagnosis: PNEUMOCOCCAL VACCINE[ICD10: Z23] Yvette Rodriguez [facility] [address] [place] [address] CPT-4: 22457 05/26/2015 ([id number]) OFFICE/OUTPATIENT VISIT EST Diagnosis: Hematochezia[ICD9: 578.1] Yvette Rodriguez ORE NDER DO [address] [address] CPT-4: 61382 02/19/2015 ([id number]) OFFICE/OUTPATIENT VISIT EST Diagnosis: Hematochezia[ICD9: 578.1] Yvette Rodriguez [facility] [address] [place] [address] CPT-4: 50986 01/20/2015 ([id number]) OFFICE/OUTPATIENT VISIT EST Diagnosis: Hematochezia[ICD9: 578.1] Yvette Rodriguez ORE NDER DO [address] [address] CPT-4: 16818 12/15/2014 ([id number]) OFFICE/OUTPATIENT VISIT EST Diagnosis: TINEA PEDIS[ICD9: 110.4] Diagnosis: Ceruminosis[ICD9: 380.4] Earline Alexandra YVETTE BUSTOSN MIHAELA DO [address] [address] CPT-4: 47684 11/30/2014 ([id number]) OFFICE/OUTPATIENT VISIT EST Diagnosis: HYPERLIPIDEMIA NEC/NOS[ICD9: 272.4] Yvette WAYNE JARED Michael ORENDER DO [address] [address] CPT-4: 25753 11/26/2014 ([id number]) OFFICE/OUTPATIENT VISIT EST Diagnosis: HYPOTHYROIDISM[ICD9: 244.9] Diagnosis: HYPERLIPIDEMIA NEC/NOS[ICD9: 272.4] Diagnosis: ANEMIA NOS[ICD9: 285.9] Diagnosis: HYPERTENSION[ICD9: 401.9] Yvette SULLIVAN [address] [address] CPT-4: 70925 08/14/2014 ([id number]) OFFICE/OUTPATIENT VISIT EST Diagnosis: GERD[ICD9: 530.81] Diagnosis: COUGH[ICD10: R05] Yvette DAVID [address] [address] CPT-4: 14559 07/23/20 14 OFFICE/OUTPATIENT VISIT EST Diagnosis: Heel pain[ICD9: 729.5] Earline Alexandra YVETTE Vega [address] [address] CPT-4: 54481 03/09/2014 ([id number]) OFFICE/OUTPATIENT VISIT EST Diagnosis: HYPOTHYROIDISM[ICD9: 244.9] Diagnosis: HYPERLIPIDEMIA NEC/NOS[ICD9: 272.4] Diagnosis: Right medial knee pain[ICD9: 719.46] Yvette Kuncarlos eduardomaye DAVID [address] [address] CPT-4: 69900 02/05/2014 ([id number]) OFFICE/OUTPATIENT VISIT EST Diagnosis: HYPOTHYROIDISM[ICD9: 244.9] Diagnosis: HYPERLIPIDEMIA NEC/NOS[ICD9: 272.4] Diagnosis: HYPERTENSION[ICD9: 401.9] Diagnosis: ANEMIA NOS[ICD9: 285.9] Diagnosis: MALAISE AND FATIGUE[ICD9: 780.79] Yvette David DILAN Zehra DAVID DO [address] [address] CPT-4: 23432 02/04/2014 OFFICE/OUTPATIENT VISIT EST Diagnosis: Right medial knee pain[ICD9: 719.46] Diagnosis: Degeneration, intervertebral disc, lumbar[ICD9: 722.52] Diagnosis: Low back pain[ICD9: 724.2] Earline Alexandra Rodriguez LUISITO STEFAN [address] [address] CPT-4: 46363 05/12/2013 ([id number]) OFFICE/OUTPATIENT VISIT EST Diagnosis: Lumbar degenerative disc disease[ICD9: 722.52] Diagnosis: Bulging lumbar disc[ICD9: 722.10] Yvette Rodriguez JOANN BORJA [address] [address] CPT-4: 55617 04/07/2013 ([id number]) OFFICE/OUTPATIENT VISIT EST Diagnosis: PAIN, LOWER BACK[ICD9: 724.2] Diagnosis: SPASM OF MUSCLE[ICD9: 728.85] Diagnosis: Lumbar degenerative disc disease[ICD9: 722.52] Yvette Rodriguez JOANN [address] [address] CPT- 4: 55638 03/31/2013 ([id number]) OFFICE/OUTPATIENT VISIT EST Diagnosis: Greater trochanteric bursitis[ICD9: 726.5] Diagnosis: DYSPEPSIA[ICD9: 536.8] Yvette Rodriguez WARNER Vega [address] [address] CPT-4: 94137 10/09/2012 OFFICE/OUTPATIENT VISIT EST Diagnosis: CYSTOCELE NOS[ICD9: 618.01] Diagnosis: GERD[ICD9: 530.81] Diagnosis: VAGINITIS[ICD9: 623.5] Yvette Rodriguez WARNER Vega DO [facility] [address] [place] [address] CPT-4: 06582 03/28/2012 ([id number]) OFFICE/OUTPATIENT VISIT EST Diagnosis: HYPOTHYROIDISM[ICD9: 244.9] Diagnosis: HYPERLIPIDEMIA NEC/NOS[ICD9: 272.4] Diagnosis: HYPERTENSION[ICD9: 401.9] Diagnosis: ANEMIA NOS[ICD9: 285.9] Yvette BUSTOSND ER DO [address] [address] CPT-4: 73714 03/18/2012 OFFICE/OUTPATIENT VISIT EST Diagnosis: CERUMEN IMPACTION[ICD9: 380.4] Diagnosis: OTALGIA[ICD9: 388.70] Reyna BUSTOSNDMAYE DO C [address] [place] [address] CPT-4: 21923 2012 OFFICE/OUTPATIENT VISIT EST Diagnosis: COUGH[ICD9: 786.2] Diagnosis: Cystocele[ICD9: 618.01] Diagnosis: VAGINITIS[ICD9: 623.5] Diagnosis: ROUTINE GYNE EXAM[ICD9: V72.31] Yvette DAVID DO [address] [address] CPT-4: 56716 09/27/2011 SPECIMEN HANDLING Diagnosis: [ICD9: ] Diagnosis: [ICD9: ] Diagnosis: [ICD9: ] Diagnosis: [ICD9: ] Yvette DAVID DO [address] [address] CPT-4: 67204 09/27/2011 OFFICE/OUTPATIENT VISIT EST Diagnosis: PHARYNGITIS, ACUTE[ICD9: 462] Diagnosis: URI, ACUTE[ICD9: 465.9] Yvette TAYLOR [facility] DO [address] [address] CPT-4: 50040 09/13/2011 OFFICE/OUTPATIENT VISIT EST Diagnosis: PHARYNGITIS, ACUTE[ICD9: 462] Diagnosis: COUGH[ICD9: 786.2] Yvette TAYLORER DO [address] [address] CPT-4: 02209 08/07/20 11 ([id number]) OFFICE/OUTPATIENT VISIT EST Yvette DILLONMelinda QUINONES Michael BUSTOSNDER DO [address] [address] CPT-4: 77931 01/04/2011 ([id number]) OFFICE/OUTPATIENT VISIT, [facility] [address] [place] [address] CPT-4: 55969 02/14/2010 ([id number]) OFFICE/OUTPATIENT VISIT, [facility] [address] [place] [address] CPT-4: 41993 02/07/2010 Plan of Care Planned Activity Notes [...] S22.31XA 08/07/2022 Patient Education: tramadol- [employer] Coupon [id number] Completed 08/07/2022 Visit Diagnosis Plan: Stress Recommendations: [...] in AM and add singulair at night [id number] ICD-9 : 786.2 ICD-10 : R05.9 08/02/2022 Appointment: Yvette David WPtel: [address] [place], [place] [id number] US FOLLOW UP 08/02/2022 Patient Education: Singulair- [employer] Coupon [id number] [email or web address] Completed 08/02/2022 Visit Diagnosis Plan: Atrial fibrillation and flutter Discussion: Increase metoprolol to 50mg po BID Increase amiodarone to 200mg po BID Fwup 1month Defers flu shot ICD-9 : 427.31 ICD-10 : I48.91 06/26/2022 Appointment: Yvette David WPtel: [phone] US FOLLOW UP 06/26/2022 Patient Education: metoprolol succinate- [employer] Co upon [id number] [email or web address].[email or web address]/[employer]/resources/getResource/61/[email or web address] Completed 06/26/2022 Referral: Lino Davila [address] [place] [id number] [place], [place] [id number] [place] Referral Completed 05/23/2022 Visit Diagnosis Plan: [...] J44.9 05/22/2022 Appointment: Yvette David WPtel: [phone] [phone] US FOLLOW UP 05/22/2022 Referral: [facility] [place] Referral Appointment Confirmed 03/08/2022 Appointment: Yvette David WPtel: [address] [place], [place] [phone] US LAB 02/28/2022 Visit Diagnosis Plan: Unspecified [...] : I48.91 02/27/2022 Appointment: Yvette David WPtel: [address] [place], [place] [phone] [place] ACUTE ILLNESS 02/27/2022 Care Plan: Referral Order SNOMED-CT : 30 [id number] Pending 02/27/2022 Care Plan: Referral Order SNOMED-CT : 30 [id number] Pending 02/27/2022 Appointment: Yvette David WPtel: [address] [phone] US CANCELED 12/06/2021 Visit Diagnosis Plan: Anxiety Discussion: Improving wi th effexor--wants to keep dose the same ICD-9 : 300.00 ICD-10 : F41.9 11/23/2021 Appointment: Yvette David WPtel: [address] [phone] FOLLOW UP 11/23/2021 Visit Diagnosis Plan: Anxiety Discussion: Restart effe xor XR at 37.5mg daily Stress Reducers Fwup 6 weeks No tremors noted today ICD-9 : 300.00 ICD-10 : F41.9 10/12/2021 Appointment: Yvette David WPtel: [phone] [phone] ACUTE ILLNESS 10/12/2021 Visit Plan: Supportive care. [...] 08/09/2021 Appointment: Martina Lopez WPtel: [phone] [phone] ACUTE ILLNESS 08/09/2021 Patient Education: Patient Medication [...] : R73.9 07/28/2021 Appointment: Yvette David WPtel: [address] [place], [place] [phone] US FOLLOW UP 07/28/2021 Appointment: Yvette David WPtel: [address] [place], [place] [phone] US LAB 07/20/2021 Visit Diagnosis Plan: Grieving Discussion: Restart Eff exor XR 37.5mg po q AM ICD-9 : 309.0 ICD-10 : F43.21 05/12/2021 Visit Diagnosis Plan: Inflamed seborrheic keratosis Di scussion: Cryotherapy as above ICD-9 : 702.11 ICD-10 : L82.0 05/12/2021 Appointment: Yvette David WPtel: [address] [place], [place] [phone] US FOLLOW UP 05/12/2021 Appointment: Yvette David WPtel: [address] [place], [place] [phone] US assisted patient with opening her eye drops for cataract liane an (km) CANCELED 03/22/2021 Visit Diagnosis Plan: Rhus dermatitis Discussion: Marielena log 40mg IM x1 Can continue TAC ICD-9 : 692.6 ICD-10 : L25.5 03/08/2021 Appointment: Yvette David WPtel: [address] [place], [place] [phone] US FOLLOW UP 03/08/2021 Visit Diagnosis Plan: [...] : I48.20 02/03/2021 Appointment: Yvette David WPtel: [address] [place], [place] [phone] FOLLOW UP 02/03/2021 Appointment: Yvette David WPtel: [address] [place], [place] [phone] US LAB 01/31/2021 Visit Diagnosis Plan: Chronic [...] : H61.20 01/04/2021 Appointment: Yvette David WPtel: [address] [place], [place] [phone] ACUTE ILLNESS 01/04/2021 Appointment: Yvette David WPtel: [address] [place], [place] [phone] BP CHECK 10/05/2020 Visit Diagnosis Plan: Chronic atrial fibrillation Disc ussion: Due to symptomatic bradycardia will decrease metoprolol ER to 25mg po BID Bring by BP and pulse readings in 2 weeks ICD-9 : 427.31 ICD-10 : I48.20 09/20/2020 Appointment: Yvette David WPtel: [address] [place], [place] [phone] ACUTE ILLNESS 09/20/2020 Appointment: Yvette David WPtel: [address] [place], [place] [phone] NURSE SERVICES 05/28/2020 Visit Diagnosis Plan: Dysplastic nevus of right lower extremity Discussion: Removal as above and sent to pathology Return in 10 days for suture removal ICD-9 : 216.7 ICD-10 : D23.71 05/19/2020 Appointment: Yvette David WPtel: [address] [place], [place] [phone] FOLLOW UP 05/19/2020 Visit Diagnosis Plan: Diarrhea [...] : I48.20 05/11/2020 Appointment: Yvette David WPtel: [address] [place], [place] [phone] Annual Well Visit 05/11/2020 Appointment: Yvette David WPtel: [address] [place] [phone] US LAB 05/05/2020 Visit Diagnosis Plan: Chronic [...] : I48.0 02/11/2020 Appointment: Yvette David WPtel: [address] [place], [place] [phone] US FOLLOW UP 02/11/2020 Visit Diagnosis Plan: [...] : L29.8 01/28/2020 Appointment: Yvette David WPtel: [address] [place], [place] [address] ACUTE ILLNESS 01/28/2020 Patient Education: hydroxyzine HCl- [employer] Coupon [id number] https://www.[employer]Haul/sampleKeduo/resources/getResource/61/[email or web address] Completed 01/28/2020 Visit Diagnosis Plan: Diarrhea, unspecified [...] : R42 01/05/2020 Appointment: Yvette David WPtel: [address] [place], [place] [phone] ACUTE ILLNESS 01/05/2020 Appointment: Yvette David WPtel: [address] [place], [place] [phone] US LAB 12/05/2019 Appointment: Yvette David WPtel: [address] [place], [place] [phone] US LAB 11/05/2019 Visit Diagnosis Plan: Dizziness [...] N28.9 10/29/2019 Appointment: Yvette David WPtel: [phone] [phone] FOLLOW UP 10/29/2019 Appointment: Yvette David WPtel: [address] [phone] US UA 10/23/2019 Appointment: Yvette David WPtel: [address] [phone] US LAB 10/21/2019 Visit Diagnosis Plan: Dizziness [...] ICD-10 : H61.20 10/20/2019 Appointment: Natalee Gray [address] [place] [address] ACUTE ILLNESS 10/20/2019 Patient Education: meclizine- [employer] Coupon [phone] https://www.[employer].StyleHaul/samplemd/resources/getResource/61/[email or web address] Completed 10/20/2019 Appointment: Yvette David WPtel: [facility]1 [phone] US Canceled, Said patient was feeling lots [...] : I48.0 07/07/2019 Appointment: Yvette David WPtel: [address] [place], [place] [phone] US FOLLOW UP 07/07/2019 Visit Diagnosis Plan: Essential (primary) hypertension Discussion: Increase HCTZ to 25mg daily Call in 1 week with BP readings ICD-9 : 401.9 ICD-10 : I10 05/01/2019 Appointment: Yvette David WPtel: [address] [place], [place] [phone] US FOLLOW UP 05/01/2019 Visit Diagnosis Plan: Essential (primary) hypertension Discussion: Change metoprolol to 50mg po q AM and 100mg po q PM Add HCTZ 12.5mg po q AM Monitor home BP and pulse Recheck 2 weeks Start Cardiac Rehab or Wellness ICD-9 : 401.1 ICD-10 : I10 04/15/2019 Appointment: Yvette Davidtel: [address] [place], [place] [phone] US FOLLOW UP 04/15/2019 Patient Education: hydrochlorothiazide- [employer] Cou [facility] [phone] https://www.[employer]/samplemd/resources/getResource/61/[email or web address] Completed 04/15/2019 Appointment: Yvette David WPtel: [facility]8 [phone] US LAB 04/04/2019 Care Plan: US EXAM CHEST US of left breast LOINC : 71514-0 Pending 03/17/2019 Visit Diagnosis Plan: Hypothyroidism, unspecified Disc ussion: Stable ICD-9 : 244.9 ICD-10 : E03.9 11/26/2018 Visit Diagnosis Plan: Paroxysmal atrial fibrillation D iscussion: Stable ICD-9 : 427.31 ICD-10 : I48.0 11/26/2018 Visit Diagnosis Plan: [facility] without abnormal findings Discussion: Mediterranean diet Combinati on of cardio and weight bearing exercise Recommend Shingrix Lab and fwup in March ICD-9 : V70.9 ICD-10 : Z00.00 11/26/2018 Visit Diagnosis Plan: Essential (primary) hypertension Discussion: Stable ICD-9 : 401.1 ICD-10 : I10 11/26/2018 Appointment: Yvette David WPtel: [address] [place], [place] [phone] Annual Well Visit 11/26/2018 Appointment: Yvette David WPtel: [address] [place] [phone] US LAB 10/07/2018 Visit Diagnosis Plan: Presence [...] : H91.92 08/08/2018 Appointment: Yvette David WPtel: [address] [place], [place] [phone] US FOLLOW UP 08/08/2018 Appointment: Natalee Gray [address] CANCELED 07/18/2018 Visit Diagnosis Plan: Sudden [...] : 401.1 ICD-10 : I10 06/25/2018 Appointment: Yvetet David [facility]Ptel: [address] [phone] [facility] Follow Up 06/25/2018 Patient Education: Patient Medication Summary Completed 06/25/2018 Appointment: Yvette David WPtel: [facility]3 [phone] BP CHECK 05/20/2018 Patient Education: Patient Medication [...] : I10 05/10/2018 Appointment: Yvette David WPtel: [phone] FOLLOW UP 05/10/2018 Patient Education: Patient Medication [...] I10 05/03/2018 Appointment: Yvette David WPtel: [phone] [phone] ACUTE ILLNESS 05/03/2018 Patient Education: Patient Medication [...] E03.9 04/22/2018 Appointment: Yvette David WPtel: [address] [phone] FOLLOW UP 04/22/2018 Patient Education: Patient Medication [...] : B02.9 03/05/2018 Appointment: [facility]alee Gray 504 [facility] ACUTE ILL[facility] 03/05/2018 Patient Education: Patient Medication [...] : H61.23 02/19/2018 Appointment: Natalee Gray 504 [facility]66[facility] ACUTE ILLNESS 02/19/2018 Patient Education: Patient Medication Summary Completed 02/19/2018 Appointment: Yvette David WPtel: [address] [place], [place] [phone] US LAB 02/13/2018 Patient Education: Patient Medication [...] G47.33 10/18/2017 Appointment: Yvette David WPtel: [address] [phone] US FOLLOW UP 10/18/2017 Patient Education: Patient Medication Summary Completed 10/18/2017 Appointment: Yvette David WPtel: [address] [phone] US LAB 10/15/2017 Patient Education: Patient Medication [...] ICD-10 : H61.23 07/24/2017 Appointment: Natalee Gray [address] [place], [place] [phone] ACUTE ILLNESS 07/24/2017 Patient Education: Patient Medication Summary Completed 07/24/2017 Referral: Jey Kaye WPtel: [address] Referral Initiated 07/05/2017 Patient Education: Patient [...] R00.0 06/14/2017 Appointment: Yvette David WPtel: [address] [phone] FOLLOW UP 06/14/2017 Patient Education: Patient Medication Summary Completed 06/14/2017 Care Plan: Referral Order SNOMED-CT : 30 [id number] Pending 06/14/2017 Visit Plan: ERx for Valtrex, system won' t allow ERx for Prednisone so it is called 10mg 2 po bid x 3 days then 1 po bid x 3 days then 1 po daily x 3 days then 1/2 po daily x 3 days then d/c She declines gabapentin or pain meds Anticipatory guidance discussed. 06/01/2017 Appointment: Demi Rocha WPtel: [phone] [facility] ACUTE ILLNESS 06/01/2017 Patient Education: Patient Medication [...] : D51.8 03/30/2017 Appointment: Yvette David WPtel: [address] [place], [place] [phone] 03/29 lm ~sl FOLLOW UP 03/30/2017 Patient [...] : R53.83 01/17/2017 Appointment: Yvette David WPtel: [facility]5 [phone] 01/16 lm`sl FOLLOW UP 01/17/2017 Patient Education: [...] G62.9 12/18/2016 Visit Diagnosis Plan: [facility] without abnormal findings Discussion: Increase activity and contin ue healthy eating Continune using urinary incontinence pads at night for nocturia Reviewed labs ICD-9 : V70.9 ICD-10 : Z00.00 12/18/2016 Appointment: Yvette David WPtel: [address] [place], [place] [phone] 11/13 confirmed ~ Annual Well Visit 12/18/2016 Patient Education: Patient Medication Summary Completed 12/18/2016 Appointment: Yvette David WPtel: [address] [place], [place] [phone] LAB 12/11/2016 Patient Education: Patient Medication Summary [...] : R05 11/02/2016 Appointment: Yvette David WPtel: [address] [place], [place] [phone] FOLLOW UP 11/02/2016 Appointment: Yvette David WPtel: [facility]5 [phone] US CANCELED 11/02/2016 Patient Education: Patient Medication Summary Completed 11/02/2016 Visit Diagnosis Plan: Acute upper respiratory infectio n, unspecified Discussion: Rx as above Discussed OTC meds and supportive care Notify if not improving so regimen can be changed before her upcoming trip in 2 weeks ICD-9 : 465.9 ICD-10 : J06.9 10/24/2016 Appointment: Elidia Calix [address] [place], [place] [id number] ACUTE ILLNESS 10/24/2016 Patient Education: Patient Medication Summary Completed 10/24/2016 Patient Education: Patient Medication Summary Completed 06/26/2016 Visit Plan: Office dip wnl/BP wnl Does s eem likely to be viral GI illness Supportive care with rxs as above Soft and bland diet Will need bloodwork if not improving 02/07/2016 Appointment: Elidia Calix [address] [place], [place] [phone] ACUTE ILLNESS 02/07/2016 Patient Education: Patient Medication Summary Completed 02/07/2016 Patient Education: Patient Medication Summary Completed 07/01/2015 Appointment: Yvette David WPtel: [address] [place], [place] [phone] US LAB 05/27/2015 Patient Education: Patient Medication Summary Completed 05/27/2015 Visit Plan: Trial of Gralise 300mg at be dtiok with 4 oz tonic water Sharron's solution soaks to feet Check TSH, Free T4, B12, CMP, HbA1C now Call in 2weeks 05/26/2015 Appointment: Yvette David WPtel: [address] [place], [place] [phone] 05/25/2015 confirmed w patient ACUTE ILLNESS 10/2014 Patient Education: Patient Medication Summary Completed 05/26/2015 Appointment: Yvette David WPtel: [facility]5 [phone] Stool lab 02/19/2015 Patient Education: Patient Medication Summary Completed 02/19/2015 Appointment: Yvette David WPtel: [phone] [phone] [facility] lab 01/20/2015 Patient Education: Patient Medication Summary Completed 01/20/2015 Appointment: Yvette David WPtel: [address] [place], [place] [phone] US LAB 12/15/2014 Patient Education: Patient Medication Summary Completed 12/15/2014 Appointment: Earline Morris WPtel: [address] [place], [place] [phone] ACUTE ILLNESS 11/30/2014 Patient Education: Patient Medication Summary Completed 11/30/2014 Appointment: Yvette David WPtel: [address] [place], [place] [phone] LAB 11/26/2014 Patient Education: Patient Medication Summary Completed 11/26/2014 Appointment: Yvette David WPtel: [address] [place], [place] [phone] LAB 08/14/2014 Patient Education: Patient Medication Summary Completed 08/14/2014 Visit Plan: Defers bone density Proceed with colonoscopy Change omeprazole to protonix Due for fasting lab next month 07/23/2014 Appointment: Yvette David WPtel: [address] [place], [place] [phone] ACUTE ILLNESS 07/23/2014 Patient Education: Patient Medication Summary Completed 07/23/2014 Patient Education: Patient Medication Summary Completed 06/05/2014 Appointment: Earline Morris WPtel: [address] [place], [place] [phone] FOLLOW UP 03/09/2014 Patient Education: Patient Medication Summary Completed 03/09/2014 Appointment: Yvette David WPtel: [address] [place], [place] [phone] ACUTE ILLNESS 02/05/2014 Patient Education: Patient Medication Summary Completed 02/05/2014 Appointment: Yvette David WPtel: [address] [place], [place] [phone] [facility] 02/04/2014 Patient Education: Patient Medication Summary Completed 02/04/2014 Appointment: Earline Morris WPtel: [address] [place], [place] [phone] ACUTE ILLNESS 05/12/2013 Patient Education: Patient Medication Summary Completed 05/12/2013 Visit Plan: MRI results discussed Discus sed epidural injections SI joint injection as above Continue Celebrex 200mg daily 04/07/2013 Appointment: Yvette David WPtel: [address] [place], [place] [phone] 04/04 left message FOLLOW UP 04/07/2013 Patient Education: Patient Medication Summary Completed 04/07/2013 Visit Plan: Restart PT and epidural--may need updated MRI of L/S spine Tylenol prn Celebrex 200mg daily 03/31/2013 Appointment: Yvette David WPtel: [address] [place], [place] [address] ACUTE ILLNESS 03/31/2013 Patient Education: Patient Medication Summary Completed 03/31/2013 Visit Plan: Injection to hip as above Pt will take Vimovo 500/20mg po daily for next week Call in 1wk on both hip and stomach Discussed that likely has arthritis in hip as well 10/09/2012 Appointment: Yvette David WPtel: [address] [place], [place] [phone] 10/08 Left message ACUTE ILLNESS 10/09/2012 Patient Education: Patient Medication Summary Completed 10/09/2012 Visit Plan: See urology--Dr. Hutchinson for cystocele Start Premarin vaginal Cream 1/2 gm vaginally twice weekly then repeat PAP in 3mos Continue nexium for 4 more weeks then start Zantac daily--notify if cough returns 03/28/2012 Appointment: Yvette Davidl: [phone] [phone] PAP 03/28/2012 Patient Education: Patient Medication Summary Completed 03/28/2012 Appointment: Yvette David WPtel: [address] [place], [place] [phone] LAB 03/18/2012 Patient Education: Patient Medication Summary Completed 03/18/2012 Appointment: Reyna Colón WPtel: [address] [place], [place] [phone] OFFICE SURGERY 2012 Patient Education: Patient Medication Summary Completed 2012 Visit Plan: Pap done Kegel exercises--de fers meds or surgery eval at this time Mammo due in January [place] symbicort 09/27/2011 Appointment: Yvette David WPtel: [address] [place], [place] [phone] FOLLOW UP 09/27/2011 Patient Education: Patient Medication Summary Completed 09/27/2011 Visit Plan: Symbicort 160/4.5 2 p BID 09/13/2011 Appointment: Yvette David WPtel: [address] [place], [place] [phone] ACUTE ILLNESS 09/13/2011 Patient Education: Patient Medication Summary Completed 09/13/2011 Visit Plan: Cefdinir and medrol dose pac k. Discussed if no improvement by Sunday will obtain chest x-ray and CBC with mycoplasma. 08/07/2011 Appointment: Reyna Colón WPtel: [address] [place], [place] [phone] ACUTE ILLNESS 08/07/2011 Patient Education: Patient Medication Summary Completed 08/07/2011 Appointment: Yvette aDvid WPtel: [address] [place], [place] [phone] 07/13/2011 Patient Education: Patient Medication Summary Completed 07/13/2011 Appointment: Yvette David WPtel: [address] [place], [place] [phone] LAB 03/13/2011 Patient Education: Patient Medication Summary Completed 03/13/2011 Appointment: Yvette David WPtel: [address] [place], [place] [phone] BP CHECK 02/06/2011 Patient Education: Patient Medication Summary Completed 02/06/2011 Appointment: Yvette David WPtel: [address] [place], [place] [phone] BP CHECK 01/20/2011 Patient Education: Patient Medication Summary Completed 01/20/2011 Appointment: Yvette David WPtel: [address] [place], [place] [phone] BP CHECK 01/12/2011 Patient Education: Patient Medication Summary Completed 01/12/2011 Visit Plan: Increase Synthroid to 75mcg po daily Increase fish oil to BID Start daily Toprol XL 12.5mg BP check in 1wk TSH and Free T4 in 2mos. 01/04/2011 Appointment: Yvette David WPtel: [address] [place], [place] [phone] FOLLOW UP 01/04/2011 Patient Education: Patient Medication Summary Completed 01/04/2011 Appointment: Yvette David WPtel: [address] [place], [place] [phone] LAB 12/16/2010 Patient Education: Patient Medication Summary Completed 12/16/2010 Visit Plan: Start PT May need MRI 02/14/2010 Appointment: Yvette David WPtel: [address] [place], [place] [phone] OFFICE SURGERY 02/14/2010 Patient Education: Patient Medication [...] (steroid). 02/07/2010 Appointment: Reyna Colón WPtel: [phone] [facility] [facility] 02/07/2010 Patient Education: Patient Medication Summary Completed 02/07/2010 Appointment: Yvette David [facility]Ptel: [facility] [facility] [facility] 12/22/2009 Patient Education: Patient Medication [...] data not found Advance Directives Filename Date [id number] 06/03/2012
--- OUTSIDE RECORDS SUMMARY | 2022-08-14 14:02 | XMS REPORT | CCD ---
Author Author Lucille David D.O. Organization [facility] Address [address] [place] [address] Phone Care Team Providers Care Financial Investment Manager Name Role Phone Yvette David D.O., PP Unavailable CCM Unavailable Summary Purpose Interface Exchange Insurance Providers Payer name Policy type / Coverage type Covered constitution party ID Effective Begin Date Effective End Date WPS MEDICARE PART B [place] Medicare Part B [id number] Unknown Cigna Medicare Part B [id number] Unknown Family History Family History data not found Social History Social History Element Codes Description Effective Dates Tobacco history SNOMED CT: [id number] Has never smoked or chewed tobacco 05/26/2015 [...] ICD-10: G62.9 ICD-9: 355.9 12/18/2016 Active 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 ICD-10: Z79.899 ICD-9: V58.69 [...] Fill Instructions tramadol 50 mg tablet RxNorm: 254239 Take 1-2 Tablet(s) Oral Every 6 hours as needed as needed for pain 08/07/2022 No Stop Date Active Effexor XR 75 mg capsule,extended release RxNorm: 181350 Take 1 Capsule(s) Oral QPM replaces 37.5mg done 08/02/2022 10/30/2022 Active Singulair 10 mg tablet RxNorm: 676275 Take 1 Tablet(s) Oral QPM 05/202201/28/2023 Active metoprolol succinate ER 50 mg tablet,extended release 24 hr RxNorm: 643046 1 Tablet(s) Oral two times a day 06/26/2022 12/22/2022 Active amiodarone 200 mg tablet RxNorm: 851920 Take 1 Tablet(s) Oral t wo times a day 06/26/2022 06/26/2022 Inactive venlafaxine ER 37.5 mg capsule,extended release 24 hr RxNorm : 734624 Take 1 Capsule(s) Oral QAM 06/16/2022 08/01/2022 Inactive simvastatin 20 mg tablet RxNorm: 464069 Take 1 Tablet(s) Oral QD 11/21/2022 Active Xarelto 20 mg tablet RxNorm: 7582530 Take 1 Tablet(s) Oral QD 05/22 No Stop Date Active amiodarone 200 mg tablet RxNorm: 526391 Take 1 Tablet(s) Oral QD 06/25/2022 Inactive Euthyrox 88 mcg tablet RxNorm: 294412 TAKE 1 TABLET BY MOUTH ONCE DAILY - DUE FOR UPDATED LAB 05/21/2022 08/18/2022 Active Breztri Aerosphere 160 mcg-9mcg-4.8mcg/actuation HFA a erosol inhaler RxNorm: 4062695 2 Puff(s) Inhalation two times a day in the morning an d evening 05/01/2022 05/01/2022 Inactive Breztri Aerosphere 160 mcg-9mcg-4.8mcg/actuation HFA a erosol inhaler RxNorm: 0470752 2 Puff(s) Inhalation two times a day in the morning an d evening 05/01/2022 05/30/2022 Inactive diltiazem CD 120 mg capsule,extended release 24 hr RxNorm: 8 66099 TAKE 1 CAPSULE BY MOUTH TWICE DAILY REPLACES 180MG DOSE 04/17/2022 10/13/2022 Active pantoprazole 40 mg tablet,delayed release RxNorm: 158240 Take 1 Tablet(s) Oral QD 04/17/2022 10/13/2022 Active Xarelto 10 mg tablet RxNorm: 2748937 Take 1 Tablet(s) Oral QD 03/2105/21/2022 Inactive simvastatin 20 mg tablet RxNorm: 186814 Take 1 Tablet(s) Oral QD 02/23/2022 Inactive levothyroxine 88 mcg tablet RxNorm: 591610 Take 1 table t by mouth once daily due for updated lab 02/22/2022 02/22/2022 Inactive Cartia XT 120 mg capsule,extended release RxNorm: 681634 TAKE 1 CAPSULE BY MOUTH TWICE DAILY REPLACES 180MG DOSE 01/16/2022 01/16/2022 Inactive pantoprazole 40 mg tablet,delayed release RxNorm: 224683 Take 1 Oral QD 12/15/2021 12/15/2021 Inactive scopolamine 1 mg over 3 days transdermal patch RxNorm: 60360 2 Take 1 Application Transdermal Q3D as needed 11/23/2021 06/25/2022 Inactive Effexor XR 37.5 mg capsule,extended release RxNorm: 673101 1 Capsule(s) Oral QAM 11/23/2021 11/23/2021 Inactive levothyroxine 88 mcg tablet RxNorm: 665301 Take 1 tablet by alvaro th once daily 11/21/2021 11/21/2021 Inactive diltiazem CD 120 mg capsule,extended release 24 hr RxNorm: 8 96104 TAKE 1 CAPSULE BY MOUTH TWICE DAILY REPLACES 180MG DOSE 10/17/2021 10/17/2021 Inactiv e pantoprazole 40 mg tablet,delayed release RxNorm: 783034 Take 1 Tablet(s) Oral QD 10/17/2021 10/17/2021 Inactive Effexor XR 37.5 mg capsule,extended release RxNorm: 298305 1 Capsule(s) Oral QAM 10/12/2021 11/22/2021 Inactive Xarelto 10 mg tablet RxNorm: 4544695 Take 1 Tablet(s) Oral QD 09/1409/14/2021 Inactive metoprolol succinate ER 50 mg tablet,extended release 24 hr RxNorm: 580385 Take 1/2 (one-half) tablet by mouth twice daily 09/14/2021 03/12/2022 Inact beto simvastatin 20 mg tablet RxNorm: 727882 Take 1 Tablet(s) Oral QD 08/30/2021 Inactive levothyroxine 88 mcg tablet RxNorm: 041381 Take 1 tablet by [facility] once daily 08/28/2021 08/28/2021 Inactive fluticasone propionate 50 mcg/actuation nasal spray,suspensi on RxNorm: 1494009 Take 1 Lantry Nasal QD in each nostrilas needed 08/09/2021 09/07/2021 I nactive pantoprazole 40 mg tablet,delayed release RxNorm: 092574 Take 1 Tablet(s) Oral QD 07/19/2021 07/19/2021 Inactive Xarelto 10 mg tablet RxNorm: 7354000 Take 1 Tablet(s) Oral QD 06/2906/29/2021 Inactive Euthyrox 88 mcg tablet RxNorm: 133981 Take 1 tablet by mouth on ce daily 05/24/2021 05/24/2021 Inactive Effexor XR 37.5 mg capsule,extended release RxNorm: 489190 1 Capsule(s) Oral QAM 05/12/2021 07/27/2021 Inactive Xarelto 10 mg tablet RxNorm: 0524980 Take 1 tablet by mo [facility] once daily Take 1 Tablet(s) Oral QD 04/19/2021 04/19/2021 Inactive metoprolol succinate ER 50 mg tablet,extended release 24 hr RxNorm: 205179 1/2 Tablet(s) Oral two times a day 04/12/2021 04/12/2021 Inactive d ecrease in dose of 1/2 tablet twice daily metoprolol succinate ER 50 mg tablet,extended release 24 hr RxNorm: 164813 Take 1/2 (one-half) tablet by mouth twice daily 04/12/2021 10/11/2021 Inact beto simvastatin 20 mg tablet RxNorm: 883469 Take 1 Tablet(s) Oral QD 03/07/2021 Inactive prednisone 10 mg tablet RxNorm: 006966 Take 1 Tablet(s) Oral tw o times a day 03/01/2021 03/01/2021 Inactive triamcinolone acetonide 0.1 % topical cream RxNorm: 4671085 Apply 1 Application Topical two times a day 03/01/2021 03/01/2021 Inactive prednisone 10 mg tablet RxNorm: 276958 Take 1 Tablet(s) Oral tw o times a day 03/01/2021 03/03/2021 Inactive triamcinolone acetonide 0.1 % topical cream RxNorm: 7983536 Apply 1 Application Topical two times a day 03/01/2021 03/01/2021 Inactive Euthyrox 88 mcg tablet RxNorm: 388935 Take 1 tablet by mouth on ce daily 02/22/2021 02/22/2021 Inactive Effexor XR 37.5 mg capsule,extended release RxNorm: 924177 1 Capsule(s) Oral QAM 02/03/2021 02/02/2021 Inactive Effexor XR 37.5 mg capsule,extended release RxNorm: 559117 1 Capsule(s) Oral QAM 02/03/2021 04/03/2021 Inactive simvastatin 20 mg tablet RxNorm: 483445 Take 1 tablet by mouth once daily 1 01/25/2021 01/25/2021 Inactive Cardizem CD 120 mg capsule,extended release RxNorm: 069776 1 Capsule(s) Oral two times a day replaces 180mg dose 01/19/2021 01/19/2021 Inactive Protonix 40 mg tablet,delayed release RxNorm: 551265 1 Tablet(s ) Oral QD 01/17/2021 01/17/2021 Inactive Effexor XR 37.5 mg capsule,extended release RxNorm: 988044 1 Capsule(s) Oral QAM 01/04/2021 02/02/2021 Inactive scopolamine 1 mg over 3 days transdermal patch RxNorm: 74048 2 1 Application Transdermal behind ear for vertigo 01/04/2021 01/03/2021 Inactive scopolamine 1 mg over 3 days transdermal patch RxNorm: 05968 2 1 Application Transdermal behind ear for vertigo 01/04/2021 01/04/2021 Inactive metoprolol succinate ER 50 mg tablet,extended release 24 hr RxNorm: 440261 1/2 Tablet(s) Oral two times a day 12/29/2020 12/28/2020 Inactive metoprolol succinate ER 50 mg tablet,extended release 24 hr RxNorm: 667838 1/2 Tablet(s) Oral two times a day 12/29/2020 12/29/2020 Inactive d ecrease in dose of 1/2 tablet twice daily Xarelto 10 mg tablet RxNorm: 5811921 Take 1 tablet by mouth once daily 12/29/2020 03/29/2021 Inactive Xarelto 10 mg tablet RxNorm: 1174320 Take 1 tablet by mouth once daily 11/26/2020 12/28/2020 Inactive simvastatin 20 mg tablet RxNorm: 428656 Take 1 tablet by mouth once daily 11/26/2020 01/24/2021 Inactive Synthroid 88 mcg tablet RxNorm: 324953 Take 1 tablet by mouth o nce daily 10/21/2020 10/21/2020 Inactive simvastatin 20 mg tablet RxNorm: 014137 Take 1 tablet by mouth once daily 09/30/2020 11/25/2020 Inactive Xarelto 10 mg tablet RxNorm: 0753786 Take 1 tablet by mouth once daily 08/26/2020 11/23/2020 Inactive metoprolol succinate ER 50 mg tablet,extended release 24 hr RxNorm: 953910 1 Tablet(s) Oral two times a day 08/05/2020 11/03/2020 Inactive simvastatin 20 mg tablet RxNorm: 950755 Take 1 tablet by mouth once daily 07/30/2020 09/27/2020 Inactive Synthroid 88 mcg tablet RxNorm: 051629 Take 1 tablet by mouth o nce daily 07/27/2020 10/20/2020 Inactive Protonix 40 mg tablet,delayed release RxNorm: 727090 1 Tablet(s ) Oral QD 07/26/2020 10/24/2020 Inactive Xarelto 10 mg tablet RxNorm: 2961292 1 Tablet(s) Oral QD 06/03/2020 1 10/26/2019 Inactive Cardizem CD 120 mg capsule,extended release RxNorm: 630173 1 Capsule(s) Oral two times a day replaces 180mg dose 05/11/2020 11/07/2020 Inactive Pradaxa 75 mg capsule RxNorm: 4928377 1 Capsule(s) Oral two time s a day 05/11/2020 05/11/2020 Inactive meclizine 25 mg tablet RxNorm: 515382 1 Tablet(s) Oral every ni ght at bedtime 05/05/2020 10/11/2021 Inactive simvastatin 20 mg tablet RxNorm: 080112 Take 1 tablet by mouth once daily 05/04/2020 05/10/2020 Inactive simvastatin 20 mg tablet RxNorm: 884425 TAKE 1 TABLET BY MOUTH ONCE DAILY 04/29/2020 09/19/2020 Inactive Synthroid 88 mcg tablet RxNorm: 667069 TAKE 1 TABLET BY MOUTH O NCE DAILY 04/20/2020 07/18/2020 Inactive diltiazem CD 180 mg capsule,extended release 24 hr RxNorm: 8 58013 TAKE 1 CAPSULE BY MOUTH TWICE DAILY 04/05/2020 05/10/2020 Inactive simvastatin 20 mg tablet RxNorm: 785907 TAKE 1 TABLET BY MOUTH ONCE DAILY 02/24/2020 04/23/2020 Inactive aspirin 325 mg tablet RxNorm: 828074 1 Tablet(s) Oral QD 02/11/2020 0 05/10/2020 Inactive hydroxyzine HCl 10 mg tablet RxNorm: 760258 1 Tablet(s) Oral th ree times a day 01/28/2020 05/10/2020 Inactive diltiazem CD 180 mg capsule,extended release 24 hr RxNorm: 8 65175 TAKE 1 CAPSULE BY MOUTH TWICE DAILY 01/19/2020 04/04/2020 Inactive spironolactone 25 mg tablet RxNorm: 093415 1 Tablet(s) Oral QOD replaces Triam/HCTZ 01/15/2020 01/14/2020 Inactive spironolactone 25 mg tablet RxNorm: 570104 1 Tablet(s) Oral QOD replaces Triam/HCTZ 01/15/2020 01/26/2020 Inactive prednisone 20 mg tablet RxNorm: 028149 1 Tablet(s) Oral QD 01/12/20 20 01/14/2020 Inactive prednisone 20 mg tablet RxNorm: 491282 1 Tablet(s) Oral QD 01/12/20 20 01/11/2020 Inactive Benadryl 25 mg capsule RxNorm: 0117706 1 Capsule(s) Oral every n ight at bedtime 01/08/2020 05/10/2020 Inactive Pepcid 20 mg tablet RxNorm: 681367 1 Tablet(s) Oral two times a day 01/08/2020 07/25/2020 Inactive Sarna Original 0.5 %-0.5 % lotion RxNorm: 503599 Topical 0 10/11/2021 Inactive Zyrtec 10 mg tablet RxNorm: 7300040 1 Tablet(s) Oral QAM 01/08/2020 0 05/10/2020 Inactive metoprolol succinate ER 50 mg tablet,extended release 24 hr RxNorm: 947579 1 Tablet(s) Oral two times a day 01/05/2020 04/04/2020 Inactive Protonix 40 mg tablet,delayed release RxNorm: 218106 TA KE 1 TABLET BY MOUTH ONCE DAILY 12/29/2019 05/10/2020 Inactive triamterene 37.5 mg-hydrochlorothiazide 25 mg tablet RxNorm: 869002 TAKE 1/2 (ONE-HALF) TABLET BY MOUTH EVERY OTHER DAY 12/24/2019 01/14/2020 Inact beto triamterene 37.5 mg-hydrochlorothiazide 25 mg tablet RxNorm: 622095 1/2 Tablet(s) Oral QD 12/12/2019 01/26/2020 Inactive diltiazem CD 180 mg capsule,extended release 24 hr RxNorm: 8 97572 TAKE 1 CAPSULE BY MOUTH TWICE DAILY 12/03/2019 01/18/2020 Inactive Eliquis 2.5 mg tablet RxNorm: 5925332 1 Tablet(s) Oral two times a day 11/25/2019 02/10/2020 Inactive simvastatin 20 mg tablet RxNorm: 117856 TAKE 1 TABLET BY MOUTH ONCE DAILY 11/25/2019 02/22/2020 Inactive triamterene 37.5 mg-hydrochlorothiazide 25 mg tablet RxNorm: 496274 1/2 Tablet(s) Oral QOD 11/06/2019 12/11/2019 Inactive triamterene 37.5 mg-hydrochlorothiazide 25 mg tablet RxNorm: 555695 1/2 Tablet(s) Oral QD 10/22/2019 10/28/2019 Inactive meclizine 25 mg tablet RxNorm: 954105 1 Tablet(s) Oral every ni ght at bedtime 10/20/2019 11/19/2019 Inactive Synthroid 88 mcg tablet RxNorm: 234130 TAKE 1 TABLET BY MOUTH O NCE DAILY 10/20/2019 10/21/2019 Inactive scopolamine 1 mg over 3 days transdermal patch RxNorm: 47403 2 1 Unit Dose Transdermal Q72H for vertigo 10/14/2019 01/04/2020 Inactive scopolamine 1 mg over 3 days transdermal patch RxNorm: 76633 2 1 Unit Dose Transdermal Q72H for vertigo 10/14/2019 10/14/2019 Inactive Celebrex 200 mg capsule RxNorm: 490848 TAKE 1 CAPSULE BY MOUTH ONCE DAILY 10/12/2019 10/28/2019 Inactive triamterene 37.5 mg-hydrochlorothiazide 25 mg tablet RxNorm: 926063 1 Tablet(s) Oral QAM 10/06/2019 10/21/2019 Inactive diltiazem CD 180 mg capsule,extended release 24 hr RxNorm: 8 53611 1 Capsule(s) Oral two times a day 10/01/2019 11/29/2019 Inactive simvastatin 20 mg tablet RxNorm: 962512 TAKE 1 TABLET BY MOUTH ONCE DAILY 10/01/2019 10/01/2019 Inactive Patient will need to have fasting labs done before next refill Protonix 40 mg tablet,delayed release RxNorm: 821149 TA KE 1 TABLET BY MOUTH ONCE DAILY 09/28/2019 12/26/2019 Inactive diltiazem CD 180 mg capsule,extended release 24 hr RxNorm: 8 94536 1 Capsule(s) Oral two times a day 08/11/2019 08/10/2019 Inactive diltiazem CD 180 mg capsule,extended release 24 hr RxNorm: 8 80741 1 Capsule(s) Oral two times a day 08/11/2019 09/30/2019 Inactive diltiazem CD 120 mg capsule,extended release 24 hr RxNorm: 8 83188 1 Capsule(s) Oral two times a day 07/23/2019 08/10/2019 Inactive Celebrex 200 mg capsule RxNorm: 164598 1 Capsule(s) Oral QD 07/08/2019 Inactive Celebrex 200 mg capsule RxNorm: 714323 1 Capsule(s) Oral QD 10/07/2019 Inactive diltiazem CD 120 mg capsule,extended release 24 hr RxNorm: 8 57329 1 Capsule(s) Oral QAM 07/07/2019 07/22/2019 Inactive Eliquis 2.5 mg tablet RxNorm: 3993265 1 Tablet(s) Oral two times a day 07/07/2019 11/04/2019 Inactive metoprolol succinate ER 50 mg tablet,extended release 24 hr RxNorm: 304927 1 Tablet(s) Oral QAM and 2 tablets in the evening 06/30/2019 08/05/2020 Inactive hydrochlorothiazide 25 mg tablet RxNorm: 482916 1 Tablet(s) PO QD 1 07/06/2019 Inactive hydrochlorothiazide 25 mg tablet RxNorm: 013148 1 Tablet(s) PO QD 0 05/08/2019 05/07/2019 Inactive patient needs to follow up i n 2 months and continue BP readings at home hydrochlorothiazide 25 mg tablet RxNorm: 920719 1 Tablet(s) PO QD 0 05/08/2019 06/25/2019 Inactive patient needs to follow up i n 2 months and continue BP readings at home metoprolol succinate ER 50 mg tablet,extended release 24 hr RxNorm: 623241 1 Tablet(s) PO QAM and 2 tablets in the evening 05/08/2019 06/29/2019 In active hydrochlorothiazide 12.5 mg tablet RxNorm: 306259 1 Tablet(s) PO QA M 04/15/2019 05/07/2019 Inactive Synthroid 88 mcg tablet RxNorm: 494191 TAKE 1 TABLET BY MOUTH O NCE DAILY 04/14/2019 10/19/2019 Inactive Protonix 40 mg tablet,delayed release RxNorm: 280618 TA KE 1 TABLET BY MOUTH ONCE DAILY 03/24/2019 09/27/2019 Inactive simvastatin 20 mg tablet RxNorm: 291996 TAKE 1 TABLET BY MOUTH ONCE DAILY 03/24/2019 09/30/2019 Inactive losartan 100 mg tablet RxNorm: 117876 1/2 Tablet(s) PO QD 2019 04/14/2019 Inactive Cozaar 50 mg tablet RxNorm: 053745 1 Tablet(s) PO QHS 01/28/201903/25 Inactive Celebrex 200 mg capsule RxNorm: 222785 TAKE 1 CAPSULE BY MOUTH ONCE DAILY 01/10/2019 07/08/2019 Inactive Protonix 40 mg tablet,delayed release RxNorm: 821658 TA KE 1 TABLET BY MOUTH ONCE DAILY 12/23/2018 03/23/2019 Inactive metoprolol succinate ER 50 mg tablet,extended release 24 hr RxNorm: 851123 1.5 Tablet(s) PO BID 12/03/2018 04/14/2019 Inactive Synthroid 88 mcg tablet RxNorm: 764581 1 Tablet(s) PO QD 10/24/2018 0 04/13/2019 Inactive simvastatin 20 mg tablet RxNorm: 208845 1 Tablet(s) PO QD 09/27/2018 12/25/2018 Inactive simvastatin 20 mg tablet RxNorm: 894758 1 Tablet(s) PO QD 09/26/2018 09/26/2018 Inactive Cozaar 50 mg tablet RxNorm: 418669 1 Tablet(s) PO QHS 09/09/201802/2019 Inactive Cozaar 50 mg tablet RxNorm: 353336 1 Tablet(s) PO QHS 09/09/201808/24 Inactive metoprolol succinate ER 50 mg tablet,extended release 24 hr RxNorm: 368709 1.5 Tablet(s) PO BID 09/02/2018 11/30/2018 Inactive Cozaar 50 mg tablet RxNorm: 704576 1 Tablet(s) PO QHS 05/24/201808/24 Inactive Cozaar 25 mg tablet RxNorm: 483881 1 Tablet(s) PO QAM 05/10/201804/25 Inactive clonidine HCl 0.1 mg tablet RxNorm: 580269 1 Tablet(s) PO TID as needed for BP greater than 160/95 05/10/2018 05/20/2018 Inactive betamethasone dipropionate 0.05 % topical cream RxNorm: 2389 20 1 Application TOP BID 05/06/2018 11/25/2018 Inactive prednisone 20 mg tablet RxNorm: 735305 1 Tablet(s) PO QD 05/06/2018 0 05/05/2018 Inactive prednisone 20 mg tablet RxNorm: 905377 1 Tablet(s) PO QD 05/06/2018 0 05/10/2018 Inactive metoprolol succinate ER 50 mg tablet,extended release 24 hr RxNorm: 722217 1.5 Tablet(s) PO BID 05/06/2018 09/01/2018 Inactive Flonase Allergy Relief 50 mcg/actuation nasal spray,suspensi on RxNorm: 3261554 2 Lantry NASAL QHS 05/03/2018 11/25/2018 Inactive Celebrex 200 mg capsule RxNorm: 537951 TAKE ONE CAPSULE BY MOUT H ONCE DAILY 04/30/2018 05/02/2018 Inactive Celebrex 200 mg capsule RxNorm: 589035 1 Capsule(s) PO QD TAKE ONE CAPSULE BY MOUTH ONCE DAILY 04/30/2018 05/02/2018 Inactive Synthroid 88 mcg tablet RxNorm: 105495 1 Tablet(s) PO QD 03/12/2018 1 11/08/2017 Inactive acyclovir 5 % topical ointment RxNorm: 503540 1 Unit Dose TOP Q 6H as needed 03/05/2018 11/25/2018 Inactive Protonix 40 mg tablet,delayed release RxNorm: 739865 1 Tablet(s ) PO QD 12/17/2017 12/22/2018 Inactive simvastatin 20 mg tablet RxNorm: 176353 TAKE ONE TABLET BY MOUT H ONCE DAILY 12/17/2017 09/27/2018 Inactive Celebrex 200 mg capsule RxNorm: 342954 TAKE ONE CAPSULE BY MOUT H ONCE DAILY 10/30/2017 04/29/2018 Inactive Synthroid 88 mcg tablet RxNorm: 470633 1 Tablet(s) PO QD 09/19/2017 0 03/12/2018 Inactive Synthroid 88 mcg tablet RxNorm: 136171 1 Tablet(s) PO QD Needs updated labs 09/19/2017 10/24/2018 Inactive Synthroid 88 mcg tablet RxNorm: 589562 1 Tablet(s) PO QD 06/20/2017 1 11/18/2016 Inactive simvastatin 20 mg tablet RxNorm: 991324 1 Tablet(s) PO QD 06/15/2017 09/12/2017 Inactive simvastatin 20 mg tablet RxNorm: 324080 1 Tablet(s) PO QD 06/15/2017 06/14/2017 Inactive metoprolol succinate ER 25 mg tablet,extended release 24 hr RxNorm: 386991 1 Tablet(s) PO QD 06/14/2017 07/23/2017 Inactive Valtrex 1 gram tablet RxNorm: 176469 1 Tablet(s) PO TID 06/01/2017 Inactive Celebrex 200 mg capsule RxNorm: 582015 1 Capsule(s) PO QD 05/01/2017 10/27/2017 Inactive Toprol XL 25 mg tablet,extended release RxNorm: 934480 1/2 Tabl et(s) PO QD 04/12/2017 06/13/2017 Inactive simvastatin 20 mg tablet RxNorm: 368186 1 Tablet(s) PO QD 03/19/2017 06/14/2017 Inactive Synthroid 88 mcg tablet RxNorm: 571058 1 Tablet(s) PO QD 03/14/2017 0 06/20/2017 Inactive aspirin 81 mg chewable tablet RxNorm: 657756 1 Tablet(s) PO QD /02/201704/21/2018 Inactive simvastatin 20 mg tablet RxNorm: 336579 TAKE ONE TABLET BY MOUT H ONCE DAILY 12/19/2016 03/19/2017 Inactive gabapentin 300 mg capsule RxNorm: 720549 1 Capsule(s) PO QHS 201603/29/2017 Inactive Protonix 40 mg tablet,delayed release RxNorm: 669001 TA KE ONE TABLET BY MOUTH ONCE DAILY 12/14/2016 12/08/2017 Inactive Flonase Allergy Relief 50 mcg/actuation nasal spray,suspensi on RxNorm: 7173453 2 Lantry NASAL QHS 11/02/2016 12/17/2016 Inactive clotrimazole-betamethasone 1 %-0.05 % topical cream RxNorm: 961680 1 Application TOP BID 11/02/2016 11/01/2016 Inactive clotrimazole-betamethasone 1 %-0.05 % topical cream RxNorm: 568170 1 Application TOP BID 11/02/2016 12/17/2016 Inactive Maggi Perles 100 mg capsule RxNorm: 419153 1 Capsule(s) PO TID 0 11/02/2016 12/17/2016 Inactive amoxicillin 500 mg tablet RxNorm: 250025 1 Tablet(s) PO TID 017 11/01/2016 Inactive Toprol XL 25 mg tablet,extended release RxNorm: 566423 TAKE ONE-HALF TABLET BY MOUTH ONCE DAILY 10/19/2016 04/12/2017 Inactive Toprol XL 25 mg tablet,extended release RxNorm: 079438 1/2 Tablet(s) PO QD Due for routine fasting labs and appointment 10/19/2016 01/16/2017 Inactiv e gabapentin 600 mg tablet RxNorm: 260415 1 Tablet(s) PO QHS 07/24/20 16 12/17/2016 Inactive gabapentin 600 mg tablet RxNorm: 935053 TAKE ONE TABLET BY MOUT H AT BEDTIME 07/24/2016 07/23/2016 Inactive simvastatin 20 mg tablet RxNorm: 304924 TAKE ONE TABLET BY MOUT H ONCE DAILY 06/15/2016 12/11/2016 Inactive Celebrex 200 mg capsule RxNorm: 253920 1 Capsule(s) PO QD 05/10/2016 05/01/2017 Inactive Celebrex 200 mg capsule RxNorm: 006565 1 Capsule(s) PO QD 05/09/2016 05/09/2016 Inactive Synthroid 88 mcg tablet RxNorm: 900233 Tablet(s) 1 Tablet(s) PO QD 03/21/2016 09/16/2016 Inactive Synthroid 88 mcg tablet RxNorm: 621422 1 Tablet(s) PO QD 03/20/2016 0 03/20/2016 Inactive simvastatin 20 mg tablet RxNorm: 391345 TAKE ONE TABLET BY MOUT H ONCE DAILY 03/06/2016 06/03/2016 Inactive meclizine 25 mg tablet RxNorm: 180740 1 Tablet(s) PO TID as nee ded dizziness 02/07/2016 12/17/2016 Inactive Zofran ODT 4 mg disintegrating tablet RxNorm: 381110 1 Tablet(s) PO Q6H as needed for nausea 02/07/2016 12/17/2016 Inactive gabapentin 600 mg tablet RxNorm: 519681 TAKE ONE TABLET BY MOUT H AT BEDTIME 01/20/2016 07/17/2016 Inactive Synthroid 88 mcg tablet RxNorm: 125135 1 Tablet(s) PO QD 12/27/2015 0 03/19/2016 Inactive simvastatin 20 mg tablet RxNorm: 572710 1 Tablet(s) PO QD 12/06/2015 03/04/2016 Inactive Protonix 40 mg tablet,delayed release RxNorm: 872008 1 Tablet(s ) PO QD 12/06/2015 12/13/2016 Inactive Celebrex 200 mg capsule RxNorm: 386030 1 Capsule(s) PO QD 11/03/2015 05/10/2016 Inactive Celebrex 200 mg capsule RxNorm: 803378 1 Capsule(s) PO QD 11/03/2015 11/02/2015 Inactive simvastatin 20 mg tablet RxNorm: 525809 1 Tablet(s) PO QD 09/06/2015 12/04/2015 Inactive Gralise 600 mg tablet,extended release RxNorm: 3191600 1 Tablet( s) PO QD 08/23/2015 10/18/2015 Inactive Synthroid 88 mcg tablet RxNorm: 988202 1 Tablet(s) PO QD 06/30/2015 0 09/27/2015 Inactive simvastatin 20 mg tablet RxNorm: 728763 1 Tablet(s) PO QD 06/07/2015 09/04/2015 Inactive Synthroid 88 mcg tablet RxNorm: 446823 1 Tablet(s) PO QD 06/07/2015 1 Inactive Celebrex 200 mg capsule RxNorm: 311370 1 Capsule(s) PO QD 06/07/2015 11/02/2015 Inactive Protonix 40 mg tablet,delayed release RxNorm: 742159 1 Tablet(s ) PO QD 06/07/2015 12/03/2015 Inactive Toprol XL 25 mg tablet,extended release RxNorm: 403372 1/2 Tabl et(s) PO QD 04/13/2015 10/09/2015 Inactive [SAVINGS FOR UNINSUR ED PATIENTS -- BIN:130150, PCN: ASPROD1, Group: [id number], ID# [id number], Process claim through [employer], for questions: . THIS IS NOT INSURANCE.] Synthroid 88 mcg tablet RxNorm: 809831 1 Tablet(s) PO Q D TAKE ONE TABLET BY MOUTH ONCE DAILY 03/29/2015 06/30/2015 Inactive Celebrex 200 mg capsule RxNorm: 025263 1 Capsule(s) PO QD 03/22/2015 06/06/2015 Inactive Celebrex 200 mg capsule RxNorm: 728732 1 Capsule(s) PO QD 02/22/2015 03/21/2015 Inactive Celebrex 200 mg capsule RxNorm: 568103 1 Capsule(s) PO QD 01/21/2015 02/21/2015 Inactive Synthroid 88 mcg tablet RxNorm: 763239 1 Tablet(s) PO Q D TAKE ONE TABLET BY MOUTH ONCE DAILY 12/21/2014 03/29/2015 Inactive meloxicam 15 mg tablet RxNorm: 932097 1 Tablet(s) PO QD 12/09/2014 Inactive [SAVINGS FOR NON-COVERED DRUGS -- BIN:00 3585, PCN: ASPROD1, Group: [id number], ID# [id number], Questions: . THIS IS NOT INSURANCE.] Protonix 40 mg tablet,delayed release RxNorm: 388418 1 Tablet(s ) PO QD 12/08/2014 06/05/2015 Inactive Protonix 40 mg tablet,delayed release RxNorm: 543101 1 Tablet(s ) PO QD 12/07/2014 12/07/2014 Inactive simvastatin 20 mg tablet RxNorm: 876392 TAKE ONE TABLET BY MOUT H ONCE DAILY 11/30/2014 05/28/2015 Inactive clotrimazole-betamethasone 1 %-0.05 % topical cream RxNorm: 3087 14 TOP BID 11/30/2014 11/01/2016 Inactive acetic acid 2 % ear solution RxNorm: 336742 5 Drop(s) OTIC Left ear QID 11/30/2014 12/06/2014 Inactive meloxicam 15 mg tablet RxNorm: 492173 1 Tablet(s) PO QD 10/30/2014 Inactive [SAVINGS FOR NON-COVERED DRUGS -- BIN:[id number], PCN: [id number], Group: XXXXX, ID# [id number], Questions: . THIS IS NOT INSURANCE.] meloxicam 15 mg tablet RxNorm: 066200 1 Tablet(s) PO QD 10/30/2014 Inactive Toprol XL 25 mg tablet,extended release RxNorm: 341661 1/2 Tabl et(s) PO QD 10/12/2014 04/09/2015 Inactive [SAVINGS FOR UNINSUR ED PATIENTS -- BIN:[id number], PCN: [id number], Group: [id number], ID# [id number], Process claim through [employer], for questions: . THIS IS NOT INSURANCE.] Synthroid 88 mcg tablet RxNorm: 245557 1 Tablet(s) PO Q D TAKE ONE TABLET BY MOUTH ONCE DAILY 09/21/2014 12/19/2014 Inactive Protonix 40 mg tablet,delayed release RxNorm: 566807 1 Tablet(s ) PO QD 07/23/2014 11/19/2014 Inactive Synthroid 88 mcg tablet RxNorm: 694902 TAKE ONE TABLET BY MOUTH ONCE DAILY 06/23/2014 09/21/2014 Inactive omeprazole 40 mg capsule,delayed release RxNorm: 554519 1 Capsu le(s) PO QD 06/16/2014 07/22/2014 Inactive [SAVINGS FOR UNINSUR ED PATIENTS -- BIN:[id number], PCN: [id number], Group: [id number], ID# [id number], Process claim through [employer], for questions: . THIS IS NOT INSURANCE.] Toprol XL 25 mg tablet,extended release RxNorm: 343749 1/2 Tabl et(s) PO QD 04/13/2014 10/12/2014 Inactive Celebrex 200 mg capsule RxNorm: 572978 1 Capsule(s) PO QD for pain 03/16/2014 10/29/2014 Inactive Medrol ([place]choa) 4 mg tablets in a dose pack RxNorm: 154935 Tablet(s) PO as directed 03/09/2014 07/22/2014 Inactive Synthroid 88 mcg tablet RxNorm: 791333 1 Tablet(s) PO QD 02/17/2014 0 06/23/2014 Inactive Celebrex 200 mg capsule RxNorm: 624641 1 Capsule(s) PO QD for pain 02/17/2014 03/15/2014 Inactive omeprazole 40 mg capsule,delayed release RxNorm: 897332 1 Capsu le(s) PO QD 02/05/2014 06/16/2014 Inactive Protonix 40 mg tablet,delayed release RxNorm: 442924 1 Tablet(s ) PO QD 01/23/2014 05/10/2020 Inactive Toprol XL 25 mg tablet,extended release RxNorm: 077390 1/2 Tablet(s) PO QD TAKE ONE-HALF TABLET BY MOUTH EVERY DAY 01/12/2014 04/13/2014 Inactive Synthroid 88 mcg tablet RxNorm: 754182 Tablet(s) PO MANDY E ONE TABLET BY MOUTH EVERY DAY 11/17/2013 02/17/2014 Inactive Celebrex 200 mg capsule RxNorm: 668317 1 Capsule(s) PO QD for pain 10/20/2013 02/17/2014 Inactive Toprol XL 25 mg tablet,extended release RxNorm: 325657 1/2 Tabl et(s) PO QD 07/17/2013 01/12/2014 Inactive Nexium 40 mg capsule,delayed release RxNorm: 467868 1 C apsule(s) PO QD Generic ok 07/14/2013 09/21/2013 Inactive Celebrex 200 mg capsule RxNorm: 949490 1 Capsule(s) PO QD for pain 06/19/2013 10/20/2013 Inactive Synthroid 88 mcg tablet RxNorm: 610270 1 Tablet(s) PO QD 05/13/2013 0 11/17/2013 Inactive TAKE ONE TABLET BY MOUTH EVERY DAY Nexium 40 mg capsule,delayed release RxNorm: 709185 Cap maureen(s) PO TAKE ONE CAPSULE BY MOUTH EVERY DAY 05/05/2013 07/13/2013 Inactive Celebrex 200 mg capsule RxNorm: 076619 1 Capsule(s) PO QD for pain 04/07/2013 06/19/2013 Inactive Esgic-Plus 50 mg-500 mg-40 mg capsule RxNorm: 683827 1 Capsule(s) PO Q4-6H prn headache 04/07/2013 04/07/2013 Inactive Toprol XL 25 mg tablet,extended release RxNorm: 804986 1/2 Tabl et(s) PO QD 12/16/2012 06/13/2013 Inactive Nexium 40 mg capsule,delayed release RxNorm: 924810 1 Capsule(s ) PO QD 11/20/2012 03/19/2013 Inactive Synthroid 88 mcg tablet RxNorm: 115772 1 Tablet(s) PO QD 10/28/2012 0 04/25/2013 Inactive TAKE ONE TABLET BY MOUTH EVERY DAY Toprol XL 25 mg tablet,extended release RxNorm: 858269 1/2 Tabl et(s) PO QD 09/25/2012 12/16/2012 Inactive Synthroid 88 mcg tablet RxNorm: 170089 1 Tablet(s) PO QD 04/22/2012 0 10/28/2012 Inactive TAKE ONE TABLET BY MOUTH EVERY DAY Nexium 40 mg capsule,delayed release RxNorm: 968281 1 Capsule(s ) PO QD 04/16/2012 11/20/2012 Inactive Esgic-Plus 50 mg-500 mg-40 mg capsule RxNorm: 540744 1 Capsule(s) PO Q4-6H prn headache 03/28/2012 04/06/2013 Inactive Toprol XL 25 mg tablet,extended release RxNorm: 395350 1/2 Tabl et(s) PO QD 03/07/2012 09/25/2012 Inactive Toprol XL 25 mg 24 hr Tab RxNorm: 922357 1/2 Tablet(s) PO QD 201101/03/2012 Inactive Three times a week Synthroid 88 mcg Tab RxNorm: 711930 1 Tablet(s) PO QD 10/10/201112/23 Inactive TAKE ONE TABLET BY MOUTH EVERY DAY prednisone 20 mg Tab RxNorm: 123769 1 Tablet(s) PO BID 09/13/2011 Inactive doxycycline 100 mg Cap RxNorm: 1434945 1 Capsule(s) PO BID 09/13/2009/22/2011 Inactive cefdinir 300 mg Cap RxNorm: 556485 1 Capsule(s) PO BID 08/07/2011 Inactive Synthroid 88 mcg Tab RxNorm: 286956 1 Tablet(s) PO QD 07/19/201109/24 Inactive TAKE ONE TABLET BY MOUTH EVERY DAY Synthroid 88 mcg Tab RxNorm: 920698 1 Tablet(s) PO QD 07/19/201103/26 Inactive TAKE ONE TABLET BY MOUTH EVERY DAY Synthroid 88 mcg Tab RxNorm: 133445 1 Tablet(s) PO QD 07/18/201106/25 Inactive TAKE ONE TABLET BY MOUTH EVERY DAY Synthroid 88 mcg Tab RxNorm: 161370 1 Tablet(s) PO QD 05/15/201106/25 Inactive TAKE ONE TABLET BY MOUTH EVERY DAY Synthroid 88 mcg Tab RxNorm: 146604 1 Tablet(s) PO QD 03/15/201104/25 Inactive Synthroid 75 mcg Tab RxNorm: 418293 1 Tablet(s) PO QD 01/04/201102/22 Inactive Synthroid 50 mcg Tab RxNorm: 913058 1 Tablet(s) PO QD G eneric okay. Please explain to patient that she may see more variation in her thyroid labs and increased symptoms. 07/07/2010 03/14/2011 Inactive Prednisone 20 mg Tab RxNorm: 819800 1 Tablet(s) PO BID 02/14/2010 Inactive Flexeril 10 mg Tab RxNorm: 074049 1 Tablet(s) PO TID 02/07/201002/13 Inactive Synthroid 25 mcg Tab RxNorm: 690784 1 Tablet(s) PO QD 12/29/200902/23 Inactive Synthroid 50 mcg Tab RxNorm: 325420 1 Tablet(s) PO QD 12/29/200911/2009 Inactive Vitamin D3 2,000 unit tablet RxNorm: 291349 1 Tablet(s) PO QAM 2014 Active coenzyme Q10 200 mg tablet RxNorm: 074873 1 Tablet(s) PO QD 09/01/2014 Active Trelegy Ellipta inhalation RxNorm: 6899874 inhalation 05/30/2022 Active Vitamin B12 1000mcg Tablet RxNorm: 1/2 Tablet(s) PO QD 04/03/2017 Active gabapentin 600 mg tablet RxNorm: 789407 1 Tablet(s) PO QPM 01/20/20 16 01/19/2016 Inactive Fish Oil 1,000 mg capsule RxNorm: 1 Capsule(s) PO QHS 10/18/2017 0 10/17/2017 Inactive Toprol XL 25 mg 24 hr Tab RxNorm: 587887 /2 Tablet(s) PO QD 201103/06/2012 Inactive turmeric root extract oral RxNorm: 5643183 oral 05/26/20152014 Inactive Esgic 50 mg-325 mg-40 mg tablet RxNorm: 209136 1 Tablet (s) PO Q4H as needed for pain 05/26/2015 05/25/2015 Inactive Synthroid 88 mcg Tab RxNorm: 276989 1 Tablet(s) PO QD 03/15/201102/23 Inactive Calcium with Vitamin D 600 mg-400 unit Tab RxNorm: 096508 1 Tab let(s) PO BID 03/31/2013 03/30/2013 Inactive Synthroid 50 mcg Tab RxNorm: 523821 1 Tablet(s) PO QD 03/16/201002/23 Inactive Celebrex 200 mg capsule RxNorm: 856026 1 Capsule(s) PO QD 01/21/2015 01/20/2015 Inactive betamethasone dipropionate 0.05 % topical cream RxNorm: 2389 20 1 Application TOP BID 05/06/2018 05/05/2018 Inactive Protonix 40 mg tablet,delayed release RxNorm: 860344 1 Tablet(s ) PO QD 01/23/2014 01/23/2014 Inactive Calcium + D 600 mg (1,500)-200 unit Tab RxNorm: 330114 1 Tablet (s) PO QD 01/04/2011 01/03/2011 Inactive simvastatin 20 mg tablet RxNorm: 838072 1 Tablet(s) PO QD 11/30/2014 11/29/2014 Inactive Fish Oil 1,000 mg capsule RxNorm: 2 Capsule(s) PO QD 05/26/2015 Inactive Gralise 600 mg tablet,extended release RxNorm: 2598596 1 Tablet( s) PO QD 08/23/2015 08/22/2015 Inactive Vitamin B12 1000mcg Tablet RxNorm: 1 Tablet(s) PO QD 04/03/2017 Inactive Esgic-Plus 50 mg-500 mg-40 mg Cap RxNorm: 418268 1 Caps ule(s) PO Q4-6H prn headache 03/28/2012 03/27/2012 Inactive Cozaar 50 mg tablet RxNorm: 737472 1 Tablet(s) PO QHS 05/24/201804/26 Inactive Toprol XL 25 mg 24 hr Tab RxNorm: 026854 2 Tablet(s) PO Three t imes a week 01/01/2012 12/31/2011 Inactive metoprolol succinate ER 25 mg tablet,extended release 24 hr RxNorm: 370373 1 Tablet(s) PO TID 10/18/2017 10/17/2017 Inactive metoprolol succinate ER 50 mg tablet,extended release 24 hr RxNorm: 338629 1.5 Tablet(s) PO QAM and tablet at bedtime 05/06/2018 05/05/2018 Inactive Esgic-Plus 50 mg-500 mg-40 mg Cap RxNorm: 280981 1 Capsule(s) P O Q4-6H 08/07/2011 08/06/2011 Inactive metoprolol succinate ER 50 mg tablet,extended release 24 hr RxNorm: 707031 1 Tablet(s) PO QD 04/22/2018 04/21/2018 Inactive Multivitamin & Mineral Formula Tab RxNorm: 1 Tablet(s) PO QD 0 03/31/2013 03/30/2013 Inactive metoprolol succinate ER 50 mg tablet,extended release 24 hr RxNorm: 437399 2 Tablet(s) PO QAM and 1.5 tablets (75mg) at bedtime 05/01/2019 9 Inactive Fish Oil 1,000 mg Cap RxNorm: 1 Capsule(s) PO QD 03/31/20132012 Inactive pantoprazole 40 mg tablet,delayed release RxNorm: 262039 1 Tabl et(s) PO QD 02/05/2014 02/04/2014 Inactive Eliquis 2.5 mg tablet RxNorm: 5405884 1 Tablet(s) PO BID 07/07/2019 1 Inactive Medrol 4 mg Tab RxNorm: 061679 Tablet(s) PO as directed 03/28/2012 Inactive Synthroid 75 mcg Tab RxNorm: 777896 1 Tablet(s) PO QD 02/14/201001/23 Inactive aspirin 81 mg tablet RxNorm: 817909 1 Tablet(s) PO QD 05/26/2015 090 09/2014 Inactive meclizine 25 mg tablet RxNorm: 822924 1 Tablet(s) PO TID as needed 11/26/2018 11/25/2018 Inactive metoprolol succinate ER 50 mg tablet,extended release 24 hr RxNorm: 381080 1 Tablet(s) PO QAM and 2 tablets in the evening 05/08/2019 05/07/2019 In active Aspirin 81 mg Tab RxNorm: 219870 1 Tablet(s) PO QD 03/31/2013 013 Inactive Vitamin D3 1,000 unit capsule RxNorm: 741052 1 Capsule(s) PO QD 04/201303/30/2013 Inactive Medication Administered No Medication Administered data Immunizations Vaccine Codes Dose Date Status Pneumococcal CVX: 133 0.5 ml 05/26/2015 Results Observation Observation Code Item Item Code Result Date S ervice Location GLYCOSYLATED HEMOGLOBIN TEST 96001 Hgb A1c 89390-7 6.0 % 0 03/01/2022 Unknown MEAN GLUC 4408287 Calc Mean Gluc 126 mg/dL 03/01/2022 Unkn own COMPREHENSIVE METABOLIC 79485 AST 16 U/L 2021 Unknown COMPREHENSIVE METABOLIC 76637 ALT 15 U/L 2021 Unknown COMPREHENSIVE METABOLIC 08698 BUN 18 mg/dL 2021 Unknown COMPREHENSIVE METABOLIC 28180 ALBUMIN 4.3 g/dL 2021 Unknown COMPREHENSIVE METABOLIC 77513 CHLORIDE 104 mmol/L 02/28 Unknown COMPREHENSIVE METABOLIC 22044 Bili Total 0.8 mg/dL 02/28 Unknown COMPREHENSIVE METABOLIC 12003 ALK PHOS 93 U/L 2021 Unknown COMPREHENSIVE METABOLIC 56910 SODIUM 143 mmol/L 02/28 Unknown COMPREHENSIVE METABOLIC 32989 CREATININE 0.82 mg/dL 03/2022 Unknown COMPREHENSIVE METABOLIC 93907 CALCIUM 9.8 mg/dL 2021 Unknown COMPREHENSIVE METABOLIC 99075 POTASSIUM 4.2 mmol/L 02/28 Unknown COMPREHENSIVE METABOLIC 82599 Total Protein 7.7 g/dL Unknown COMPREHENSIVE METABOLIC 43057 Glucose 116 mg/dL 2021 Unknown COMPREHENSIVE METABOLIC 02125 Bicarbonate 26 mmol/L 03/2022 Unknown COMPREHENSIVE METABOLIC 46016 AGAP 13 mmol/L 2021 Unknown FREE T4 39639 T4 Free 1.15 ng/dL 02/28/2022 Unknown THYROID STIMULATING HORMONE 01087 TSH 3.512 uIU/mL 02/28/2022 Unknown LIPID GROUP 12607 Cholesterol 158 mg/dL 02/28/2022 Unkno wn LIPID GROUP 80781 Triglyceride 78 mg/dL 02/28/2022 Unkn own LIPID GROUP 03184 HDL CHOLESTEROL 66 mg/dL 02/28/2022 U nknown LIPID GROUP 67041 Chol/HDL Ratio 2.39 ratio 02/28/2022 U nknown LIPID GROUP 90877 NON-HDL Chol 92 mg/dL 02/28/2022 Unkn own LIPID GROUP 58101 LDL Cholesterol 76 mg/dL 02/28/2022 U nknown COMPLETE BLOOD COUNT 1370886 WBC 6.9 10e9/L 02/29/20 22 Unknown COMPLETE BLOOD COUNT [id number] RBC 4.61 10e12/L 2021 Unknown COMPLETE BLOOD COUNT 7576840 HEMOGLOBIN 13.0 g/dL 02/29/20 22 Unknown COMPLETE BLOOD COUNT [id number] HEMATOCRIT 42.1 % 02/29/20 22 Unknown COMPLETE BLOOD COUNT [id number] MCV 91.3 fL 2 Unknown COMPLETE BLOOD COUNT [id number] MCH 28.2 pg 2 Unknown COMPLETE BLOOD COUNT 1972456 MCHC 30.9 g/dL 2 Unknown COMPLETE BLOOD COUNT [id number] PLATELET COUNT 276 10e9/L 03/2022 Unknown COMPLETE BLOOD COUNT [id number] Mean Plt Volume 10.6 fL 03/2022 Unknown COMPLETE BLOOD COUNT [id number] NRBC Absolute 0.00 10e9/L 03/2022 Unknown COMPLETE BLOOD COUNT [id number] Neut Auto 53.0 % 2 Unknown COMPLETE BLOOD COUNT 1015596 NRBC/100 WBC 0.0 2021 Unknown COMPLETE BLOOD COUNT [id number] Lymph Auto 32.0 % 02/29/20 22 Unknown COMPLETE BLOOD COUNT 7695639 Clinch Auto 11.0 % 2 Unknown COMPLETE BLOOD COUNT 9201004 RDW 14.4 % 2 Unknown COMPLETE BLOOD COUNT 2218454 Eos Auto 2.5 % 2 Unknown COMPLETE BLOOD COUNT 0366237 Baso Auto 1.4 % 2 Unknown COMPLETE BLOOD COUNT [id number] Neutrophil Abs 3.66 10e9/L Unknown COMPLETE BLOOD COUNT [id number] Imm Gran Auto 0.1 % 02/28 Unknown COMPLETE BLOOD COUNT [id number] Lymphocyte Abs 2.21 10e9/L Unknown COMPLETE BLOOD COUNT [id number] Monocyte Abs 0.76 10e9/L 03/2022 Unknown COMPLETE BLOOD COUNT 0294344 Eosinophil Abs 0.17 10e9/L Unknown COMPLETE BLOOD COUNT [id number] RDW-SD 47.8 fL 2 Unknown COMPLETE BLOOD COUNT [id number] Basophil Abs 0.10 10e9/L 03/2022 Unknown COMPLETE BLOOD COUNT [id number] Imm Gran Abs 0.01 10e9/L 03/2022 Unknown GFR CALC 8653601 GFR >60 mL/min 02/28/2022 Unknown THYROID STIMULATING HORMONE 04598 TSH 3.017 uIU/mL 01/31/2021 Unknown COMPLETE BLOOD COUNT [id number] WBC 6.1 10e9/L 02/01/20 21 Unknown COMPLETE BLOOD COUNT [id number] RBC 4.22 10e12/L 2020 Unknown COMPLETE BLOOD COUNT [id number] HEMOGLOBIN 12.1 g/dL 02/01/20 21 Unknown COMPLETE BLOOD COUNT [id number] HEMATOCRIT 39.5 % 02/01/20 21 Unknown COMPLETE BLOOD COUNT [id number] MCV 93.6 fL 1 Unknown COMPLETE BLOOD COUNT [id number] MCH 28.7 pg 1 Unknown COMPLETE BLOOD COUNT 5074576 MCHC 30.6 g/dL 1 Unknown COMPLETE BLOOD COUNT [id number] PLATELET COUNT 271 10e9/L 06/2021 Unknown COMPLETE BLOOD COUNT 7097916 Mean Plt Volume 11.0 fL 06/2021 Unknown COMPLETE BLOOD COUNT 2397533 Neut Auto 57.3 % 1 Unknown COMPLETE BLOOD COUNT 9197849 Lymph Auto 28.3 % 02/01/20 21 Unknown COMPLETE BLOOD COUNT 9334995 Clinch Auto 10.9 % 1 Unknown COMPLETE BLOOD COUNT 7804350 RDW 14.4 % 1 Unknown COMPLETE BLOOD COUNT 4280737 Eos Auto 2.8 % 1 Unknown COMPLETE BLOOD COUNT 2392333 Baso Auto 0.7 % 1 Unknown COMPLETE BLOOD COUNT [id number] Neutrophil Abs 3.50 10e9/L Unknown COMPLETE BLOOD COUNT [id number] Lymphocyte Abs 1.73 10e9/L Unknown COMPLETE BLOOD COUNT [id number] Monocyte Abs 0.66 10e9/L 01/22 Unknown COMPLETE BLOOD COUNT [id number] Eosinophil Abs 0.17 10e9/L Unknown COMPLETE BLOOD COUNT 7497733 RDW-SD 47.4 fL Unknown COMPLETE BLOOD COUNT [id number] Basophil Abs 0.04 10e9/L 01/22 Unknown GLYCOSYLATED HEMOGLOBIN TEST 35005 Hgb A1c 56128-5 5.9 % 0 01/31/2021 Unknown LIPID GROUP 05782 Cholesterol 151 mg/dL 01/31/2021 Unkno wn LIPID GROUP 04432 Triglyceride 68 mg/dL 01/31/2021 Unkn own LIPID GROUP 81234 HDL CHOLESTEROL 64 mg/dL 01/31/2021 U nknown LIPID GROUP 86564 Chol/HDL Ratio 2.36 ratio 01/31/2021 U nknown LIPID GROUP 35550 NON-HDL Chol 87 mg/dL 01/31/2021 Unkn own LIPID GROUP 45197 LDL Cholesterol 73 mg/dL 01/31/2021 U nknown MEAN GLUC 7475199 Calc Mean Gluc 123 mg/dL 01/31/2021 Unkn own FREE T4 12332 T4 Free 1.11 ng/dL 01/31/2021 Unknown COMPREHENSIVE METABOLIC 03841 AST 16 U/L 2020 Unknown COMPREHENSIVE METABOLIC 78528 ALT 12 U/L 2020 Unknown COMPREHENSIVE METABOLIC 53473 BUN 14 mg/dL 2020 Unknown COMPREHENSIVE METABOLIC 99877 ALBUMIN 4.3 g/dL 2020 Unknown COMPREHENSIVE METABOLIC 59480 CHLORIDE 106 mmol/L 01/31 Unknown COMPREHENSIVE METABOLIC 85709 Bili Total 0.9 mg/dL 01/31 Unknown COMPREHENSIVE METABOLIC 24130 ALK PHOS 96 U/L 2020 Unknown COMPREHENSIVE METABOLIC 84578 SODIUM 144 mmol/L 01/31 Unknown COMPREHENSIVE METABOLIC 67094 CREATININE 0.77 mg/dL 01/22 Unknown COMPREHENSIVE METABOLIC 53869 CALCIUM 9.4 mg/dL 2020 Unknown COMPREHENSIVE METABOLIC 33298 POTASSIUM 4.2 mmol/L 01/31 Unknown COMPREHENSIVE METABOLIC 94657 Total Protein 7.4 g/dL Unknown COMPREHENSIVE METABOLIC 96661 Glucose 94 mg/dL 2020 Unknown COMPREHENSIVE METABOLIC 80340 Bicarbonate 30 mmol/L 01/22 Unknown COMPREHENSIVE METABOLIC 90265 AGAP 8 mmol/L 2020 Unknown GFR CALC 9654020 GFR Non Afr Amr >60 mL/min 01/31/2021 Un known GFR CALC 0867472 GFR Afr Amr >60 mL/min 01/31/2021 Unknow n COMPLETE BLOOD COUNT [id number] WBC 6.9 10e9/L 01/05/20 20 Unknown COMPLETE BLOOD COUNT [id number] RBC 4.20 10e12/L 2019 Unknown COMPLETE BLOOD COUNT 8321971 HEMOGLOBIN 12.2 g/dL 01/05/20 20 Unknown COMPLETE BLOOD COUNT 9118744 HEMATOCRIT 39.2 % 01/05/20 20 Unknown COMPLETE BLOOD COUNT 8264305 MCV 93.3 fL 0 Unknown COMPLETE BLOOD COUNT 3559067 MCH 29.0 pg 0 Unknown COMPLETE BLOOD COUNT 1358744 MCHC 31.1 g/dL 0 Unknown COMPLETE BLOOD COUNT 8129470 PLATELET COUNT 272 10e9/L Unknown COMPLETE BLOOD COUNT 4146833 Mean Plt Volume 11.0 fL Unknown COMPLETE BLOOD COUNT 8769916 Neut Auto 61.4 % 0 Unknown COMPLETE BLOOD COUNT [id number] Lymph Auto 22.4 % 01/05/20 20 Unknown COMPLETE BLOOD COUNT 3071650 Clinch Auto 11.7 % 0 Unknown COMPLETE BLOOD COUNT 2782616 RDW 14.6 % 0 Unknown COMPLETE BLOOD COUNT 0376457 Eos Auto 3.6 % 0 Unknown COMPLETE BLOOD COUNT 1792005 Baso Auto 0.9 % 0 Unknown COMPLETE BLOOD COUNT 1156300 Neutrophil Abs 4.24 10e9/L Unknown COMPLETE BLOOD COUNT 2567077 Lymphocyte Abs 1.55 10e9/L Unknown COMPLETE BLOOD COUNT [id number] Monocyte Abs 0.81 10e9/L 12/23 Unknown COMPLETE BLOOD COUNT 9812855 Eosinophil Abs 0.25 10e9/L Unknown COMPLETE BLOOD COUNT 1356527 RDW-SD 48.2 fL 0 Unknown COMPLETE BLOOD COUNT 1853068 Basophil Abs 0.06 10e9/L 12/23 Unknown COMPREHENSIVE METABOLIC 49819 AST 17 U/L 2019 Unknown COMPREHENSIVE METABOLIC 65526 ALT 12 U/L 2019 Unknown COMPREHENSIVE METABOLIC 67846 BUN 18 mg/dL 2019 Unknown COMPREHENSIVE METABOLIC 83593 ALBUMIN 4.5 g/dL 2019 Unknown COMPREHENSIVE METABOLIC 54324 CHLORIDE 101 mmol/L 01/04 Unknown COMPREHENSIVE METABOLIC 34116 Bili Total 0.8 mg/dL 01/04 Unknown COMPREHENSIVE METABOLIC 39863 ALK PHOS 76 U/L 2019 Unknown COMPREHENSIVE METABOLIC 12133 SODIUM 141 mmol/L 01/04 Unknown COMPREHENSIVE METABOLIC 04458 CREATININE 1.02 mg/dL 12/23 Unknown COMPREHENSIVE METABOLIC 57461 CALCIUM 9.5 mg/dL 2019 Unknown COMPREHENSIVE METABOLIC 86618 POTASSIUM 3.9 mmol/L 01/04 Unknown COMPREHENSIVE METABOLIC 55261 Total Protein 7.4 g/dL Unknown COMPREHENSIVE METABOLIC 68078 Glucose 89 mg/dL 2019 Unknown COMPREHENSIVE METABOLIC 40782 Bicarbonate 28 mmol/L 12/23 Unknown COMPREHENSIVE METABOLIC 09666 AGAP 12 mmol/L 2019 Unknown LIPASE 96474 Lipase Lvl 34 IU/L 01/05/2020 Unknown THYROID STIMULATING HORMONE 60153 TSH 3.767 uIU/mL 01/05/2020 Unknown AMYLASE 99093 Amylase Lvl 60 IU/L 01/05/2020 Unknown GFR CALC 6595164 GFR Non Afr Amr 52 mL/min 01/05/2020 Unk nown GFR CALC 0876874 GFR Afr Amr >60 mL/min 01/05/2020 Unknow n FREE T4 70719 T4 Free 1.11 ng/dL 01/05/2020 Unknown GFR CALC 7169601 GFR Non Afr Amr 59 mL/min 12/05/2019 Unk nown GFR CALC 8873214 GFR Afr Amr >60 mL/min 12/05/2019 Unknow n COMPREHENSIVE METABOLIC 95767 AST 15 U/L 2019 Unknown COMPREHENSIVE METABOLIC 96179 ALT 12 U/L 2019 Unknown COMPREHENSIVE METABOLIC 28009 BUN 19 mg/dL 2019 Unknown COMPREHENSIVE METABOLIC 51703 ALBUMIN 4.2 g/dL 2019 Unknown COMPREHENSIVE METABOLIC 32878 CHLORIDE 104 mmol/L 12/04 Unknown COMPREHENSIVE METABOLIC 11259 Bili Total 1.0 mg/dL 12/04 Unknown COMPREHENSIVE METABOLIC 67006 ALK PHOS 78 U/L 2019 Unknown COMPREHENSIVE METABOLIC 09305 SODIUM 145 mmol/L 12/04 Unknown COMPREHENSIVE METABOLIC 79587 CREATININE 0.91 mg/dL 11/22 Unknown COMPREHENSIVE METABOLIC 20358 CALCIUM 9.3 mg/dL 2019 Unknown COMPREHENSIVE METABOLIC 44845 POTASSIUM 3.6 mmol/L 12/04 Unknown COMPREHENSIVE METABOLIC 44035 Total Protein 7.0 g/dL Unknown COMPREHENSIVE METABOLIC 29173 Glucose 96 mg/dL 2019 Unknown COMPREHENSIVE METABOLIC 89621 Bicarbonate 28 mmol/L 11/22 Unknown COMPREHENSIVE METABOLIC 93982 AGAP 13 mmol/L 2019 Unknown COMPREHENSIVE METABOLIC 84907 AST 15 U/L 2019 Unknown COMPREHENSIVE METABOLIC 23557 ALT 11 U/L 2019 Unknown COMPREHENSIVE METABOLIC 36101 BUN 14 mg/dL 2019 Unknown COMPREHENSIVE METABOLIC 01602 ALBUMIN 4.3 g/dL 2019 Unknown COMPREHENSIVE METABOLIC 57991 CHLORIDE 106 mmol/L 11/05 Unknown COMPREHENSIVE METABOLIC 78777 Bili Total 0.7 mg/dL 11/05 Unknown COMPREHENSIVE METABOLIC 05880 ALK PHOS 80 U/L 2019 Unknown COMPREHENSIVE METABOLIC 06844 SODIUM 145 mmol/L 11/05 Unknown COMPREHENSIVE METABOLIC 16621 CREATININE 0.97 mg/dL 10/25 Unknown COMPREHENSIVE METABOLIC 32360 CALCIUM 9.5 mg/dL 2019 Unknown COMPREHENSIVE METABOLIC 79743 POTASSIUM 3.9 mmol/L 11/05 Unknown COMPREHENSIVE METABOLIC 56832 Total Protein 7.0 g/dL Unknown COMPREHENSIVE METABOLIC 70966 Glucose 103 mg/dL 2019 Unknown COMPREHENSIVE METABOLIC 66549 Bicarbonate 29 mmol/L 10/25 Unknown COMPREHENSIVE METABOLIC 51433 AGAP 10 mmol/L 2019 Unknown GFR CALC 6873463 GFR Non Afr Amr 55 mL/min 11/05/2019 Unk nown GFR CALC 9214708 GFR Afr Amr >60 mL/min 11/05/2019 Unknow n FREE T4 90237 T4 Free 1.34 ng/dL 10/21/2019 Unknown COMPLETE BLOOD COUNT 9487276 WBC 7.2 10e9/L 10/21/19 20 Unknown COMPLETE BLOOD COUNT [id number] RBC 4.17 10e12/L 2019 Unknown COMPLETE BLOOD COUNT 1299917 HEMOGLOBIN 12.1 g/dL 10/21/19 20 Unknown COMPLETE BLOOD COUNT 5627515 HEMATOCRIT 39.0 % 10/21/19 20 Unknown COMPLETE BLOOD COUNT 2090147 MCV 93.5 fL 0 Unknown COMPLETE BLOOD COUNT 5069601 MCH 29.0 pg 0 Unknown COMPLETE BLOOD COUNT 9362837 MCHC 31.0 g/dL 0 Unknown COMPLETE BLOOD COUNT 5597440 PLATELET COUNT 239 10e9/L Unknown COMPLETE BLOOD COUNT 3513836 Mean Plt Volume 11.7 fL Unknown COMPLETE BLOOD COUNT 9469634 Neut Auto 63.7 % 0 Unknown COMPLETE BLOOD COUNT 9846517 Lymph Auto 21.0 % 10/21/19 20 Unknown COMPLETE BLOOD COUNT 2249093 Clinch Auto 11.1 % 0 Unknown COMPLETE BLOOD COUNT 0908186 RDW 13.6 % 0 Unknown COMPLETE BLOOD COUNT 3347198 Eos Auto 3.6 % 0 Unknown COMPLETE BLOOD COUNT 2076795 Baso Auto 0.6 % 0 Unknown COMPLETE BLOOD COUNT 5023568 Neutrophil Abs 4.59 10e9/L Unknown COMPLETE BLOOD COUNT 1387134 Lymphocyte Abs 1.51 10e9/L Unknown COMPLETE BLOOD COUNT [id number] Monocyte Abs 0.80 10e9/L 09/25 Unknown COMPLETE BLOOD COUNT 2956280 Eosinophil Abs 0.26 10e9/L Unknown COMPLETE BLOOD COUNT 4282205 RDW-SD 45.1 fL 0 Unknown COMPLETE BLOOD COUNT 9254527 Basophil Abs 0.04 10e9/L 09/25 Unknown GFR CALC 2362209 GFR Non Afr Amr 42 mL/min 10/21/2019 Unk nown GFR CALC 2704522 GFR Afr Amr 50 mL/min 10/21/2019 Unknown COMPREHENSIVE METABOLIC 54701 AST 16 U/L 2019 Unknown COMPREHENSIVE METABOLIC 26836 ALT 10 U/L 2019 Unknown COMPREHENSIVE METABOLIC 40943 BUN 20 mg/dL 2019 Unknown COMPREHENSIVE METABOLIC 94059 ALBUMIN 4.4 g/dL 2019 Unknown COMPREHENSIVE METABOLIC 66529 CHLORIDE 102 mmol/L 10/21 Unknown COMPREHENSIVE METABOLIC 76843 Bili Total 0.8 mg/dL 10/21 Unknown COMPREHENSIVE METABOLIC 53235 ALK PHOS 85 U/L 2019 Unknown COMPREHENSIVE METABOLIC 48410 SODIUM 144 mmol/L 10/21 Unknown COMPREHENSIVE METABOLIC 21492 CREATININE 1.24 mg/dL 09/25 Unknown COMPREHENSIVE METABOLIC 92460 CALCIUM 9.8 mg/dL 2019 Unknown COMPREHENSIVE METABOLIC 91857 POTASSIUM 4.2 mmol/L 10/21 Unknown COMPREHENSIVE METABOLIC 63670 Total Protein 7.3 g/dL Unknown COMPREHENSIVE METABOLIC 23211 Glucose 98 mg/dL 2019 Unknown COMPREHENSIVE METABOLIC 54442 Bicarbonate 31 mmol/L 09/25 Unknown COMPREHENSIVE METABOLIC 85109 AGAP 11 mmol/L 2019 Unknown THYROID STIMULATING HORMONE 72072 TSH 2.693 uIU/mL 10/21/2019 Unknown LIPID GROUP 01668 Cholesterol 142 mg/dL 10/21/2019 Unkno wn LIPID GROUP 82107 Triglyceride 120 mg/dL 10/21/2019 Unkn own LIPID GROUP 83373 HDL CHOLESTEROL 54 mg/dL 10/21/2019 U nknown LIPID GROUP 92628 Chol/HDL Ratio 2.63 ratio 10/21/2019 U nknown LIPID GROUP 01036 NON-HDL Chol 88 mg/dL 10/21/2019 Unkn own LIPID GROUP 39501 LDL Cholesterol 64 mg/dL 10/21/2019 U nknown GFR CALC [id number] GFR Non Afr Amr >60 mL/min 04/04/2019 Un known GFR CALC [id number] GFR Afr Amr >60 mL/min 04/04/2019 Unknow n COMPLETE BLOOD COUNT [id number] WBC 5.9 10e9/L 04/04/20 19 Unknown COMPLETE BLOOD COUNT 7195582 RBC 4.29 10e12/L 2018 Unknown COMPLETE BLOOD COUNT [id number] HEMOGLOBIN 12.3 g/dL 04/04/20 19 Unknown COMPLETE BLOOD COUNT [id number] HEMATOCRIT 39.2 % 04/04/20 19 Unknown COMPLETE BLOOD COUNT [id number] MCV 91.4 fL 9 Unknown COMPLETE BLOOD COUNT 2006530 MCH 28.7 pg 9 Unknown COMPLETE BLOOD COUNT 6408422 MCHC 31.4 g/dL 9 Unknown COMPLETE BLOOD COUNT 6448283 PLATELET COUNT 225 10e9/L 08/2019 Unknown COMPLETE BLOOD COUNT 0445089 Mean Plt Volume 11.0 fL 08/2019 Unknown COMPLETE BLOOD COUNT [id number] Neut Auto 57.2 % 9 Unknown COMPLETE BLOOD COUNT 9375576 Lymph Auto 27.3 % 04/04/20 19 Unknown COMPLETE BLOOD COUNT [id number] Clinch Auto 11.2 % 9 Unknown COMPLETE BLOOD COUNT 3280990 RDW 14.3 % 9 Unknown COMPLETE BLOOD COUNT 4654245 Eos Auto 3.4 % 9 Unknown COMPLETE BLOOD COUNT 7713702 Baso Auto 0.9 % 9 Unknown COMPLETE BLOOD COUNT [id number] Neutrophil Abs 3.37 10e9/L Unknown COMPLETE BLOOD COUNT [id number] Lymphocyte Abs 1.61 10e9/L Unknown COMPLETE BLOOD COUNT 1719396 Monocyte Abs 0.66 10e9/L 03/24 Unknown COMPLETE BLOOD COUNT 3182775 Eosinophil Abs 0.20 10e9/L Unknown COMPLETE BLOOD COUNT [id number] RDW-SD 46.6 fL 9 Unknown COMPLETE BLOOD COUNT [id number] Basophil Abs 0.05 10e9/L 03/24 Unknown THYROID STIMULATING HORMONE 86588 TSH 2.068 uIU/mL 04/04/2019 Unknown COMPREHENSIVE METABOLIC 67318 AST 17 U/L 2018 Unknown COMPREHENSIVE METABOLIC 93520 ALT 12 U/L 2018 Unknown COMPREHENSIVE METABOLIC 28023 BUN 17 mg/dL 2018 Unknown COMPREHENSIVE METABOLIC 12267 ALBUMIN 4.3 g/dL 2018 Unknown COMPREHENSIVE METABOLIC 16220 CHLORIDE 107 mmol/L 04/04 Unknown COMPREHENSIVE METABOLIC 78760 Bili Total 1.1 mg/dL 04/04 Unknown COMPREHENSIVE METABOLIC 40669 ALK PHOS 74 U/L 2018 Unknown COMPREHENSIVE METABOLIC 79666 SODIUM 144 mmol/L 04/04 Unknown COMPREHENSIVE METABOLIC 35378 CREATININE 0.70 mg/dL 03/24 Unknown COMPREHENSIVE METABOLIC 10107 CALCIUM 9.5 mg/dL 2018 Unknown COMPREHENSIVE METABOLIC 80780 POTASSIUM 4.1 mmol/L 04/04 Unknown COMPREHENSIVE METABOLIC 08583 Total Protein 6.8 g/dL Unknown COMPREHENSIVE METABOLIC 37490 Glucose 95 mg/dL 2018 Unknown COMPREHENSIVE METABOLIC 50933 Bicarbonate 29 mmol/L 03/24 Unknown COMPREHENSIVE METABOLIC 32396 AGAP 8 mmol/L 2018 Unknown FREE T4 25212 T4 Free 1.09 ng/dL 04/04/2019 Unknown LIPID GROUP 41086 Cholesterol 149 mg/dL 04/04/2019 Unkno wn LIPID GROUP 97121 Triglyceride 70 mg/dL 04/04/2019 Unkn own LIPID GROUP 61182 HDL CHOLESTEROL 62 mg/dL 04/04/2019 U nknown LIPID GROUP 23095 Chol/HDL Ratio 2.40 ratio 04/04/2019 U nknown LIPID GROUP 35208 NON-HDL Chol 87 mg/dL 04/04/2019 Unkn own LIPID GROUP 46665 LDL Cholesterol 73 mg/dL 04/04/2019 U nknown THYROID STIMULATING HORMONE 97779 TSH 3.698 uIU/mL 10/08/2018 Unknown FREE T4 42903 T4 Free 1.24 ng/dL 10/08/2018 Unknown GFR CALC 0428857 GFR Non Afr Amr >60 mL/min 10/07/2018 Un known GFR CALC 6186151 GFR Afr Amr >60 mL/min 10/07/2018 Unknow n COMPLETE BLOOD COUNT 8611710 WBC 6.3 10e9/L 10/07/19 19 Unknown COMPLETE BLOOD COUNT [id number] RBC 4.22 10e12/L 2018 Unknown COMPLETE BLOOD COUNT [id number] HEMOGLOBIN 12.2 g/dL 10/07/19 19 Unknown COMPLETE BLOOD COUNT 6080530 HEMATOCRIT 39.4 % 10/07/19 19 Unknown COMPLETE BLOOD COUNT [id number] MCV 93.4 fL 9 Unknown COMPLETE BLOOD COUNT 2068896 MCH 28.9 pg 9 Unknown COMPLETE BLOOD COUNT 9009731 MCHC 31.0 g/dL 9 Unknown COMPLETE BLOOD COUNT 4553754 PLATELET COUNT 231 10e9/L Unknown COMPLETE BLOOD COUNT 0214997 Mean Plt Volume 11.2 fL Unknown COMPLETE BLOOD COUNT 2967629 Neut Auto 55.7 % 9 Unknown COMPLETE BLOOD COUNT 0227932 Lymph Auto 30.3 % 10/07/19 19 Unknown COMPLETE BLOOD COUNT 4421200 Clinch Auto 9.6 % 9 Unknown COMPLETE BLOOD COUNT 1744622 RDW 14.0 % 9 Unknown COMPLETE BLOOD COUNT 4473468 Eos Auto 3.5 % 9 Unknown COMPLETE BLOOD COUNT 7047685 Baso Auto 0.9 % 9 Unknown COMPLETE BLOOD COUNT 0200235 Neutrophil Abs 3.51 10e9/L Unknown COMPLETE BLOOD COUNT [id number] Lymphocyte Abs 1.91 10e9/L Unknown COMPLETE BLOOD COUNT 4996038 Monocyte Abs 0.60 10e9/L 09/24 Unknown COMPLETE BLOOD COUNT [id number] Eosinophil Abs 0.22 10e9/L Unknown COMPLETE BLOOD COUNT 7793709 RDW-SD 46.1 fL 9 Unknown COMPLETE BLOOD COUNT 7247776 Basophil Abs 0.06 10e9/L 09/24 Unknown COMPREHENSIVE METABOLIC 82381 AST 14 U/L 2018 Unknown COMPREHENSIVE METABOLIC 81719 ALT 10 U/L 2018 Unknown COMPREHENSIVE METABOLIC 43294 BUN 21 mg/dL 2018 Unknown COMPREHENSIVE METABOLIC 34238 ALBUMIN 4.4 g/dL 2018 Unknown COMPREHENSIVE METABOLIC 61709 CHLORIDE 105 mmol/L 10/07 Unknown COMPREHENSIVE METABOLIC 00435 Bili Total 0.7 mg/dL 10/07 Unknown COMPREHENSIVE METABOLIC 70912 ALK PHOS 80 U/L 2018 Unknown COMPREHENSIVE METABOLIC 02996 SODIUM 143 mmol/L 10/07 Unknown COMPREHENSIVE METABOLIC 40302 CREATININE 0.67 mg/dL 09/24 Unknown COMPREHENSIVE METABOLIC 50227 CALCIUM 9.3 mg/dL 2018 Unknown COMPREHENSIVE METABOLIC 42945 POTASSIUM 3.8 mmol/L 10/07 Unknown COMPREHENSIVE METABOLIC 15820 Total Protein 7.0 g/dL Unknown COMPREHENSIVE METABOLIC 55109 Glucose 98 mg/dL 2018 Unknown COMPREHENSIVE METABOLIC 88139 Bicarbonate 32 mmol/L 09/24 Unknown COMPREHENSIVE METABOLIC 62109 AGAP 6 mmol/L 2018 Unknown LIPID GROUP 78924 Cholesterol 160 mg/dL 10/07/2018 Unkno wn LIPID GROUP 87928 Triglyceride 101 mg/dL 10/07/2018 Unkn own LIPID GROUP 15292 HDL CHOLESTEROL 63 mg/dL 10/07/2018 U nknown LIPID GROUP 66272 Chol/HDL Ratio 2.54 ratio 10/07/2018 U nknown LIPID GROUP 15026 NON-HDL Chol 97 mg/dL 10/07/2018 Unkn own LIPID GROUP 55844 LDL Cholesterol 77 mg/dL 10/07/2018 U nknown MEAN GLUC 2183614 Calc Mean Gluc 114 mg/dL 10/07/2018 Unkn own GLYCOSYLATED HEMOGLOBIN TEST 53507 Hgb A1c 57310-4 5.6 % 0 10/07/2018 Unknown FREE T4 22295 T4 Free 1.21 ng/dL 02/14/2018 Unknown THYROID STIMULATING HORMONE 80835 TSH 2.977 uIU/mL 02/14/2018 Unknown COMPLETE BLOOD COUNT 8066925 WBC 5.6 10e9/L 02/14/20 18 Unknown COMPLETE BLOOD COUNT 1275251 RBC 4.23 10e12/L 2017 Unknown COMPLETE BLOOD COUNT 5639628 HEMOGLOBIN 12.4 g/dL 02/14/20 18 Unknown COMPLETE BLOOD COUNT 3325785 HEMATOCRIT 39.1 % 02/14/20 18 Unknown COMPLETE BLOOD COUNT 4773408 MCV 92.4 fL 8 Unknown COMPLETE BLOOD COUNT 3533493 MCH 29.3 pg 8 Unknown COMPLETE BLOOD COUNT 7542096 MCHC 31.7 g/dL 8 Unknown COMPLETE BLOOD COUNT 7874820 PLATELET COUNT 268 10e9/L Unknown COMPLETE BLOOD COUNT 9053755 Mean Plt Volume 11.0 fL Unknown COMPLETE BLOOD COUNT 1158406 Neut Auto 52.1 % 8 Unknown COMPLETE BLOOD COUNT 1553469 Lymph Auto 32.0 % 02/14/20 18 Unknown COMPLETE BLOOD COUNT 0726817 Clinch Auto 11.8 % 8 Unknown COMPLETE BLOOD COUNT 5381656 RDW 14.6 % 8 Unknown COMPLETE BLOOD COUNT 4796540 Eos Auto 3.2 % 8 Unknown COMPLETE BLOOD COUNT 8590585 Baso Auto 0.9 % 8 Unknown COMPLETE BLOOD COUNT 9631440 Neutrophil Abs 2.92 10e9/L Unknown COMPLETE BLOOD COUNT 1766044 Lymphocyte Abs 1.79 10e9/L Unknown COMPLETE BLOOD COUNT 2178078 Monocyte Abs 0.66 10e9/L 01/23 Unknown COMPLETE BLOOD COUNT 6085202 Eosinophil Abs 0.18 10e9/L Unknown COMPLETE BLOOD COUNT 3725568 RDW-SD 48.2 fL 8 Unknown COMPLETE BLOOD COUNT 2362664 Basophil Abs 0.05 10e9/L 01/23 Unknown GFR CALC 0592325 GFR Non Afr Amr >60 mL/min 02/13/2018 Un known GFR CALC 1121505 GFR Afr Amr >60 mL/min 02/13/2018 Unknow n COMPREHENSIVE METABOLIC 01465 AST 18 U/L 2017 Unknown COMPREHENSIVE METABOLIC 88868 ALT 13 U/L 2017 Unknown COMPREHENSIVE METABOLIC 43277 BUN 14 mg/dL 2017 Unknown COMPREHENSIVE METABOLIC 38656 ALBUMIN 4.3 g/dL 2017 Unknown COMPREHENSIVE METABOLIC 61458 CHLORIDE 108 mmol/L 02/13 Unknown COMPREHENSIVE METABOLIC 48085 Bili Total 0.8 mg/dL 02/13 Unknown COMPREHENSIVE METABOLIC 46055 ALK PHOS 82 U/L 2017 Unknown COMPREHENSIVE METABOLIC 05479 SODIUM 144 mmol/L 02/13 Unknown COMPREHENSIVE METABOLIC 85077 CREATININE 0.67 mg/dL 01/23 Unknown COMPREHENSIVE METABOLIC 15877 CALCIUM 9.4 mg/dL 2017 Unknown COMPREHENSIVE METABOLIC 65162 POTASSIUM 4.1 mmol/L 02/13 Unknown COMPREHENSIVE METABOLIC 45741 Total Protein 6.9 g/dL Unknown COMPREHENSIVE METABOLIC 56710 Glucose 103 mg/dL 2017 Unknown COMPREHENSIVE METABOLIC 18014 Bicarbonate 27 mmol/L 01/23 Unknown COMPREHENSIVE METABOLIC 55033 AGAP 9 mmol/L 2017 Unknown LIPID GROUP 85583 Cholesterol 169 mg/dL 10/15/2017 Unkno wn LIPID GROUP 60820 Triglyceride 99 mg/dL 10/15/2017 Unkn own LIPID GROUP 65262 HDL CHOLESTEROL 69 10/15/2017 U nknown LIPID GROUP 42500 Chol/HDL Ratio 2.45 ratio 10/15/2017 U nknown LIPID GROUP 02684 NON-HDL Chol 100 mg/dL 10/15/2017 Unkn own LIPID GROUP 53271 LDL Cholesterol 80 mg/dL 10/15/2017 U nknown COMPREHENSIVE METABOLIC 05069 AST 17 U/L 2017 Unknown COMPREHENSIVE METABOLIC 59481 ALT 13 U/L 2017 Unknown COMPREHENSIVE METABOLIC 13132 BUN 22 mg/dL 2017 Unknown COMPREHENSIVE METABOLIC 13204 ALBUMIN 4.5 g/dL 2017 Unknown COMPREHENSIVE METABOLIC 61991 CHLORIDE 99 mmol/L 2017 Unknown COMPREHENSIVE METABOLIC 73244 Bili Total 0.8 mg/dL 10/15 Unknown COMPREHENSIVE METABOLIC 58267 ALK PHOS 78 U/L 2017 Unknown COMPREHENSIVE METABOLIC 19766 SODIUM 150 mmol/L 10/15 Unknown COMPREHENSIVE METABOLIC 48656 CREATININE 0.73 mg/dL 09/25 Unknown COMPREHENSIVE METABOLIC 84601 CALCIUM 9.5 mg/dL 2017 Unknown COMPREHENSIVE METABOLIC 05611 POTASSIUM 4.2 mmol/L 10/15 Unknown COMPREHENSIVE METABOLIC 16110 Total Protein 7.2 g/dL Unknown COMPREHENSIVE METABOLIC 05338 Glucose 96 mg/dL 2017 Unknown COMPREHENSIVE METABOLIC 17965 Bicarbonate 29 mmol/L 09/25 Unknown COMPREHENSIVE METABOLIC 95331 AGAP 22 mmol/L 2017 Unknown GFR CALC 7921154 GFR Non Afr Amr >60 mL/min 10/15/2017 Un known GFR CALC 6731659 GFR Afr Amr >60 mL/min 10/15/2017 Unknow n THYROID STIMULATING HORMONE 66073 TSH 4.502 uIU/mL 10/15/2017 Unknown FREE T4 09574 T4 Free 1.44 ng/dL 10/15/2017 Unknown VITAMIN B 12 95417 VITAMIN B12 698 pg/mL 10/15/2017 Unkn own COMPLETE BLOOD COUNT 9157901 WBC 6.3 10e9/L 10/15/19 18 Unknown COMPLETE BLOOD COUNT 3725396 RBC 4.37 10e12/L 2017 Unknown COMPLETE BLOOD COUNT 8548029 HEMOGLOBIN 12.6 g/dL 10/15/19 18 Unknown COMPLETE BLOOD COUNT 8062002 HEMATOCRIT 40.3 % 10/15/19 18 Unknown COMPLETE BLOOD COUNT 8569110 MCV 92.2 fL 8 Unknown COMPLETE BLOOD COUNT 2775962 MCH 28.8 pg 8 Unknown COMPLETE BLOOD COUNT 2619494 MCHC 31.3 g/dL 8 Unknown COMPLETE BLOOD COUNT 4543547 PLATELET COUNT 256 10e9/L Unknown COMPLETE BLOOD COUNT 2982455 Mean Plt Volume 11.1 fL Unknown COMPLETE BLOOD COUNT 5159226 Neut Auto 54.8 % 8 Unknown COMPLETE BLOOD COUNT 1914747 Lymph Auto 30.5 % 10/15/19 18 Unknown COMPLETE BLOOD COUNT 4248088 Clinch Auto 10.4 % 8 Unknown COMPLETE BLOOD COUNT 8975180 RDW 14.0 % 8 Unknown COMPLETE BLOOD COUNT 0870471 Eos Auto 3.8 % 8 Unknown COMPLETE BLOOD COUNT 6493557 Baso Auto 0.5 % 8 Unknown COMPLETE BLOOD COUNT 1397115 Neutrophil Abs 3.45 10e9/L Unknown COMPLETE BLOOD COUNT 6082108 Lymphocyte Abs 1.92 10e9/L Unknown COMPLETE BLOOD COUNT 7553200 Monocyte Abs 0.66 10e9/L 09/25 Unknown COMPLETE BLOOD COUNT 2925580 Eosinophil Abs 0.24 10e9/L Unknown COMPLETE BLOOD COUNT 9165011 RDW-SD 46.1 fL 8 Unknown COMPLETE BLOOD COUNT 4992165 Basophil Abs 0.03 10e9/L 09/25 Unknown VITAMIN B 12 34685 VITAMIN B12 823 pg/mL 03/30/2017 Unkn own VITAMIN B 12 20394 VITAMIN B12 321 pg/mL 12/18/2016 Unkn own COMPLETE BLOOD COUNT 0428725 WBC 6.8 10e9/L 12/12/19 17 Unknown COMPLETE BLOOD COUNT 2021068 RBC 4.37 10e12/L 2016 Unknown COMPLETE BLOOD COUNT 3613047 HEMOGLOBIN 12.5 g/dL 12/12/19 17 Unknown COMPLETE BLOOD COUNT 3631380 HEMATOCRIT 39.3 % 12/12/19 17 Unknown COMPLETE BLOOD COUNT 1335125 MCV 89.9 fL 7 Unknown COMPLETE BLOOD COUNT 1697331 MCH 28.6 pg 7 Unknown COMPLETE BLOOD COUNT 8127053 MCHC 31.8 g/dL 7 Unknown COMPLETE BLOOD COUNT 8995185 PLATELET COUNT 248 10e9/L Unknown COMPLETE BLOOD COUNT 4575684 Mean Plt Volume 10.9 fL Unknown COMPLETE BLOOD COUNT 0934261 Neut Auto 52.0 % 7 Unknown COMPLETE BLOOD COUNT 1495784 Lymph Auto 33.4 % 12/12/19 17 Unknown COMPLETE BLOOD COUNT 0595735 Clinch Auto 10.1 % 7 Unknown COMPLETE BLOOD COUNT 4258388 RDW 14.6 % 7 Unknown COMPLETE BLOOD COUNT 5655675 Eos Auto 3.8 % 7 Unknown COMPLETE BLOOD COUNT 8283906 Baso Auto 0.7 % 7 Unknown COMPLETE BLOOD COUNT 6788793 Neutrophil Abs 3.54 10e9/L Unknown COMPLETE BLOOD COUNT 0906637 Lymphocyte Abs 2.27 10e9/L Unknown COMPLETE BLOOD COUNT 2922997 Monocyte Abs 0.69 10e9/L 11/23 Unknown COMPLETE BLOOD COUNT 9577470 Eosinophil Abs 0.26 10e9/L Unknown COMPLETE BLOOD COUNT 8262423 RDW-SD 47.4 fL 7 Unknown COMPLETE BLOOD COUNT 3091017 Basophil Abs 0.05 10e9/L 11/23 Unknown COMPREHENSIVE METABOLIC 36600 AST 16 U/L 2016 Unknown COMPREHENSIVE METABOLIC 31210 ALT 12 U/L 2016 Unknown COMPREHENSIVE METABOLIC 14974 BUN 22 mg/dL 2016 Unknown COMPREHENSIVE METABOLIC 84329 ALBUMIN 4.2 g/dL 2016 Unknown COMPREHENSIVE METABOLIC 89728 CHLORIDE 104 mmol/L 12/11 Unknown COMPREHENSIVE METABOLIC 39521 Bili Total 0.7 mg/dL 12/11 Unknown COMPREHENSIVE METABOLIC 41226 ALK PHOS 78 U/L 2016 Unknown COMPREHENSIVE METABOLIC 84219 SODIUM 143 mmol/L 12/11 Unknown COMPREHENSIVE METABOLIC 22848 CREATININE 0.69 mg/dL 11/23 Unknown COMPREHENSIVE METABOLIC 18083 CALCIUM 9.5 mg/dL 2016 Unknown COMPREHENSIVE METABOLIC 09753 POTASSIUM 3.9 mmol/L 12/11 Unknown COMPREHENSIVE METABOLIC 99106 Total Protein 7.1 g/dL Unknown COMPREHENSIVE METABOLIC 29213 Glucose 103 mg/dL 2016 Unknown COMPREHENSIVE METABOLIC 82675 Bicarbonate 30 mmol/L 11/23 Unknown COMPREHENSIVE METABOLIC 68199 AGAP 9 mmol/L 2016 Unknown GFR CALC 7463966 GFR Non Afr Amr >60 mL/min 12/11/2016 Un known GFR CALC 8642309 GFR Afr Amr >60 mL/min 12/11/2016 Unknow n MEAN GLUC 3141851 Calc Mean Gluc 120 mg/dL 12/11/2016 Unkn own LIPID GROUP 27832 Cholesterol 162 mg/dL 12/11/2016 Unkno wn LIPID GROUP 02067 Triglyceride 80 mg/dL 12/11/2016 Unkn own LIPID GROUP 93122 HDL CHOLESTEROL 65 mg/dL 12/11/2016 U nknown LIPID GROUP 51784 Chol/HDL Ratio 2.49 ratio 12/11/2016 U nknown LIPID GROUP 53865 NON-HDL Chol 97 mg/dL 12/11/2016 Unkn own LIPID GROUP 00160 LDL Cholesterol 81 mg/dL 12/11/2016 U nknown FREE T4 23185 T4 Free 1.46 ng/dL 12/11/2016 Unknown THYROID STIMULATING HORMONE 33481 TSH 2.578 uIU/mL 12/11/2016 Unknown GLYCOSYLATED HEMOGLOBIN TEST 00740 Hgb A1c 15336-3 5.8 % 0 12/11/2016 Unknown FREE T4 84185 FREE T4 1.68 NG/DL 05/27/2015 Unknown LIPID GROUP 87744 HDL TEST 67 MG/DL 05/27/2015 Unknown LIPID GROUP 88733 TRIG 92 MG/DL 05/27/2015 Unknown LIPID GROUP 73088 TEST LDL 84 MG/DL 05/27/2015 Unknown LIPID GROUP 62165 CHOL 169 MG/DL 05/27/2015 Unknown LIPID GROUP 87861 RCHOL/HDL 2.52 RATIO 05/27/2015 Unknow n LIPID GROUP 74232 NON-HDL CH 102 MG/DL 05/27/2015 Unknow n GLYCOSYLATED HEMOGLOBIN TEST 70837 A1C HPLC 01941-8 5.9 % 0 05/27/2015 Unknown VITAMIN B 12 65345 VIT B 12 308 PG/ML 05/27/2015 Unknow n GFR CALC 7172685 GFR AA >60 ML/MIN 05/27/2015 Unknown GFR CALC 8118699 GFR NON-AA >60 ML/MIN 05/27/2015 Unknown COMPREHENSIVE METABOLIC 95584 AST 20 U/L 2014 Unknown COMPREHENSIVE METABOLIC 35365 ALT 15 IU/L 2014 Unknown COMPREHENSIVE METABOLIC 85525 BUN 17 MG/DL 2014 Unknown COMPREHENSIVE METABOLIC 34450 ALBUMIN 4.3 GM/DL 2014 Unknown COMPREHENSIVE METABOLIC 97574 CHLORIDE 107 MMOL/L 05/27 Unknown COMPREHENSIVE METABOLIC 69781 BILI TOT 0.9 MG/DL 2014 Unknown COMPREHENSIVE METABOLIC 09602 ALK PHOS 85 U/L 2014 Unknown COMPREHENSIVE METABOLIC 78774 SODIUM 144 MMOL/L 05/27 Unknown COMPREHENSIVE METABOLIC 14153 CREATININE 0.76 MG/DL 11/2014 Unknown COMPREHENSIVE METABOLIC 43156 CALCIUM 9.5 MG/DL 2014 Unknown COMPREHENSIVE METABOLIC 46848 POTASSIUM 4.2 MMOL/L 05/27 Unknown COMPREHENSIVE METABOLIC 38532 PROT TOT 7.1 GM/DL 2014 Unknown COMPREHENSIVE METABOLIC 80468 Glucose 95 MG/DL 2014 Unknown COMPREHENSIVE METABOLIC 01648 BICARB 30 MMOL/L 2014 Unknown COMPREHENSIVE METABOLIC 87093 ANION GAP 7 MEQ/L 2014 Unknown COMPLETE BLOOD COUNT 1713113 WBC 6.5 10e9/L 05/27/20 15 Unknown COMPLETE BLOOD COUNT 0769533 RBC 4.35 10e12/L 2014 Unknown COMPLETE BLOOD COUNT 5631973 HGB 12.4 g/dL 5 Unknown COMPLETE BLOOD COUNT 3959690 HCT DET 39.3 % 5 Unknown COMPLETE BLOOD COUNT 6873284 MCV 90.3 fL 5 Unknown COMPLETE BLOOD COUNT 7378392 MCH 28.5 pg 5 Unknown COMPLETE BLOOD COUNT 3011894 MCHC 31.6 g/dL 5 Unknown COMPLETE BLOOD COUNT 5882416 PLT 245 10e9/L 05/27/20 15 Unknown COMPLETE BLOOD COUNT 0037284 MPV 11.1 fL 5 Unknown COMPLETE BLOOD COUNT 5428765 CRISTI % 53.9 % 5 Unknown COMPLETE BLOOD COUNT 2593895 LY % 30.8 % 5 Unknown COMPLETE BLOOD COUNT 1687620 MON % 11.2 % 5 Unknown COMPLETE BLOOD COUNT 5920535 EOS % 3.2 % 5 Unknown COMPLETE BLOOD COUNT 2345763 BASO % 0.9 % 5 Unknown COMPLETE BLOOD COUNT 1627964 RDW 14.5 % 5 Unknown COMPLETE BLOOD COUNT 3922654 ABS CRISTI 3.50 10e9/L 015 Unknown COMPLETE BLOOD COUNT 6575643 ABS LYMPH 2.00 10e9/L 015 Unknown COMPLETE BLOOD COUNT 0864451 ABS MONO 0.73 10e9/L 015 Unknown COMPLETE BLOOD COUNT 9183191 ABS EOS 0.21 10e9/L 015 Unknown COMPLETE BLOOD COUNT 3543883 ABS BASO 0.06 10e9/L 015 Unknown COMPLETE BLOOD COUNT 9406795 RDW-SD 46.3 fL 5 Unknown THYROID STIMULATING HORMONE 27567 TSH 2.909 uIU/ML 05/27/2015 Unknown IRON 44544 IRON TEST 63 UG/DL 12/15/2014 Unknown COMPLETE BLOOD COUNT 0653159 WBC 6.3 10e9/L 12/16/19 15 Unknown COMPLETE BLOOD COUNT 5254262 RBC 4.37 10e12/L 2014 Unknown COMPLETE BLOOD COUNT 5732441 HGB 12.6 g/dL 5 Unknown COMPLETE BLOOD COUNT 8274143 HCT DET 39.2 % 5 Unknown COMPLETE BLOOD COUNT 3862561 MCV 89.7 fL 5 Unknown COMPLETE BLOOD COUNT 2371433 MCH 28.8 pg 5 Unknown COMPLETE BLOOD COUNT 2674862 MCHC 32.1 g/dL 5 Unknown COMPLETE BLOOD COUNT 5641202 PLT 252 10e9/L 12/16/19 15 Unknown COMPLETE BLOOD COUNT 7971548 MPV 10.8 fL 5 Unknown COMPLETE BLOOD COUNT 8058250 CRISTI % 60.5 % 5 Unknown COMPLETE BLOOD COUNT 2067980 LY % 24.4 % 5 Unknown COMPLETE BLOOD COUNT 6220831 MON % 11.8 % 5 Unknown COMPLETE BLOOD COUNT 0177982 EOS % 2.7 % 5 Unknown COMPLETE BLOOD COUNT 3495693 BASO % 0.6 % 5 Unknown COMPLETE BLOOD COUNT 1423342 RDW 14.0 % 5 Unknown COMPLETE BLOOD COUNT 1682996 ABS CRISTI 3.81 10e9/L 015 Unknown COMPLETE BLOOD COUNT 1988205 ABS LYMPH 1.54 10e9/L 015 Unknown COMPLETE BLOOD COUNT 1625476 ABS MONO 0.74 10e9/L 015 Unknown COMPLETE BLOOD COUNT 7003077 ABS EOS 0.17 10e9/L 015 Unknown COMPLETE BLOOD COUNT 5888267 ABS BASO 0.04 10e9/L 015 Unknown COMPLETE BLOOD COUNT 5685386 RDW-SD 44.6 fL 5 Unknown GFR CALC 2049236 GFR AA >60 ML/MIN 11/26/2014 Unknown GFR CALC 1063826 GFR NON-AA >60 ML/MIN 11/26/2014 Unknown COMPREHENSIVE METABOLIC 40774 AST 16 U/L 2014 Unknown COMPREHENSIVE METABOLIC 14432 ALT 15 IU/L 2014 Unknown COMPREHENSIVE METABOLIC 60146 BUN 21 MG/DL 2014 Unknown COMPREHENSIVE METABOLIC 85536 ALBUMIN 4.4 GM/DL 2014 Unknown COMPREHENSIVE METABOLIC 90504 CHLORIDE 106 MMOL/L 11/26 Unknown COMPREHENSIVE METABOLIC 20329 BILI TOT 0.9 MG/DL 2014 Unknown COMPREHENSIVE METABOLIC 17023 ALK PHOS 83 U/L 2014 Unknown COMPREHENSIVE METABOLIC 99078 SODIUM 141 MMOL/L 11/26 Unknown COMPREHENSIVE METABOLIC 73674 CREATININE 0.68 MG/DL 01/2015 Unknown COMPREHENSIVE METABOLIC 63859 CALCIUM 9.4 MG/DL 2014 Unknown COMPREHENSIVE METABOLIC 28981 POTASSIUM 3.8 MMOL/L 11/26 Unknown COMPREHENSIVE METABOLIC 78215 PROT TOT 7.2 GM/DL 2014 Unknown COMPREHENSIVE METABOLIC 39915 Glucose 100 MG/DL 2014 Unknown COMPREHENSIVE METABOLIC 10981 BICARB 29 MMOL/L 2014 Unknown COMPREHENSIVE METABOLIC 21349 ANION GAP 6 MEQ/L 2014 Unknown LIPID GROUP 31005 HDL TEST 72 MG/DL 11/26/2014 Unknown LIPID GROUP 23149 TRIG 101 MG/DL 11/26/2014 Unknown LIPID GROUP 75056 TEST LDL 82 MG/DL 11/26/2014 Unknown LIPID GROUP 93526 CHOL 174 MG/DL 11/26/2014 Unknown LIPID GROUP 57053 RCHOL/HDL 2.42 RATIO 11/26/2014 Unknow n LIPID GROUP 87905 NON-HDL CH 102 MG/DL 11/26/2014 Unknow n GFR CALC 4421828 GFR AA >60 ML/MIN 08/14/2014 Unknown GFR CALC 8649793 GFR NON-AA >60 ML/MIN 08/14/2014 Unknown THYROID STIMULATING HORMONE 17755 TSH 2.261 uIU/ML 08/14/2014 Unknown COMPLETE BLOOD COUNT 2075065 WBC 5.8 10e9/L 08/14/20 14 Unknown COMPLETE BLOOD COUNT 7195491 RBC 4.33 10e12/L 2013 Unknown COMPLETE BLOOD COUNT 0982173 HGB 12.5 g/dL 4 Unknown COMPLETE BLOOD COUNT 9677567 HCT DET 39.2 % 4 Unknown COMPLETE BLOOD COUNT 4913315 MCV 90.5 fL 4 Unknown COMPLETE BLOOD COUNT 5311424 MCH 28.9 pg 4 Unknown COMPLETE BLOOD COUNT 7189845 MCHC 31.9 g/dL 4 Unknown COMPLETE BLOOD COUNT 0324787 PLT 260 10e9/L 08/14/20 14 Unknown COMPLETE BLOOD COUNT 6955525 MPV 10.9 fL 4 Unknown COMPLETE BLOOD COUNT 1182327 CRISTI % 52.9 % 4 Unknown COMPLETE BLOOD COUNT 1379026 LY % 31.0 % 4 Unknown COMPLETE BLOOD COUNT 0662120 MON % 11.3 % 4 Unknown COMPLETE BLOOD COUNT 7649518 EOS % 3.6 % 4 Unknown COMPLETE BLOOD COUNT 8099908 BASO % 1.2 % 4 Unknown COMPLETE BLOOD COUNT 5330222 RDW 13.9 % 4 Unknown COMPLETE BLOOD COUNT 7251453 ABS CRISTI 3.07 10e9/L 014 Unknown COMPLETE BLOOD COUNT 8863462 ABS LYMPH 1.80 10e9/L 014 Unknown COMPLETE BLOOD COUNT 0188721 ABS MONO 0.66 10e9/L 014 Unknown COMPLETE BLOOD COUNT 7148898 ABS EOS 0.21 10e9/L 014 Unknown COMPLETE BLOOD COUNT 0184692 ABS BASO 0.07 10e9/L 014 Unknown COMPLETE BLOOD COUNT 8692776 RDW-SD 44.8 fL 4 Unknown COMPREHENSIVE METABOLIC 00234 AST 15 U/L 2013 Unknown COMPREHENSIVE METABOLIC 49842 ALT 13 IU/L 2013 Unknown COMPREHENSIVE METABOLIC 26218 BUN 18 MG/DL 2013 Unknown COMPREHENSIVE METABOLIC 42239 ALBUMIN 4.4 GM/DL 2013 Unknown COMPREHENSIVE METABOLIC 93575 CHLORIDE 105 MMOL/L 08/14 Unknown COMPREHENSIVE METABOLIC 02387 BILI TOT 1.0 MG/DL 2013 Unknown COMPREHENSIVE METABOLIC 04381 ALK PHOS 88 U/L 2013 Unknown COMPREHENSIVE METABOLIC 86674 SODIUM 143 MMOL/L 08/14 Unknown COMPREHENSIVE METABOLIC 37334 CREATININE 0.70 MG/DL 07/26 Unknown COMPREHENSIVE METABOLIC 51136 CALCIUM 9.6 MG/DL 2013 Unknown COMPREHENSIVE METABOLIC 28549 POTASSIUM 3.9 MMOL/L 08/14 Unknown COMPREHENSIVE METABOLIC 94493 PROT TOT 7.0 GM/DL 2013 Unknown COMPREHENSIVE METABOLIC 65390 Glucose 100 MG/DL 2013 Unknown COMPREHENSIVE METABOLIC 12907 BICARB 31 MMOL/L 2013 Unknown COMPREHENSIVE METABOLIC 62113 ANION GAP 7 MEQ/L 2013 Unknown FREE T4 99639 FREE T4 1.59 NG/DL 08/14/2014 Unknown LIPID GROUP 97410 HDL TEST 66 MG/DL 08/14/2014 Unknown LIPID GROUP 49701 TRIG 106 MG/DL 08/14/2014 Unknown LIPID GROUP 67038 TEST LDL 152 MG/DL 08/14/2014 Unknown LIPID GROUP 03045 CHOL 239 MG/DL 08/14/2014 Unknown LIPID GROUP 34851 RCHOL/HDL 3.62 RATIO 08/14/2014 Unknow n LIPID GROUP 90043 NON-HDL CH 173 MG/DL 08/14/2014 Unknow n COMPREHENSIVE METABOLIC 44812 AST 16 U/L 2013 Unknown COMPREHENSIVE METABOLIC 18989 ALT 13 IU/L 2013 Unknown COMPREHENSIVE METABOLIC 18446 BUN 20 MG/DL 2013 Unknown COMPREHENSIVE METABOLIC 87881 ALBUMIN 4.4 GM/DL 2013 Unknown COMPREHENSIVE METABOLIC 02747 CHLORIDE 104 MMOL/L 02/04 Unknown COMPREHENSIVE METABOLIC 67995 BILI TOT 0.8 MG/DL 2013 Unknown COMPREHENSIVE METABOLIC 03392 ALK PHOS 79 U/L 2013 Unknown COMPREHENSIVE METABOLIC 05646 SODIUM 141 MMOL/L 02/04 Unknown COMPREHENSIVE METABOLIC 99720 CREATININE 0.73 MG/DL 01/22 Unknown COMPREHENSIVE METABOLIC 43749 CALCIUM 9.6 MG/DL 2013 Unknown COMPREHENSIVE METABOLIC 38780 POTASSIUM 4.0 MMOL/L 02/04 Unknown COMPREHENSIVE METABOLIC 84546 PROT TOT 7.2 GM/DL 2013 Unknown COMPREHENSIVE METABOLIC 23187 Glucose 96 MG/DL 2013 Unknown COMPREHENSIVE METABOLIC 26762 BICARB 31 MMOL/L 2013 Unknown COMPREHENSIVE METABOLIC 51940 ANION GAP 6 MEQ/L 2013 Unknown GFR CALC 0451944 GFR AA >60 ML/MIN 02/04/2014 Unknown GFR CALC 0336203 GFR NON-AA >60 ML/MIN 02/04/2014 Unknown FREE T4 24180 FREE T4 1.59 NG/DL 02/04/2014 Unknown COMPLETE BLOOD COUNT [id number] WBC 5.9 10e9/L 02/05/20 14 Unknown COMPLETE BLOOD COUNT [id number] RBC 4.37 10e12/L 2013 Unknown COMPLETE BLOOD COUNT [id number] HGB 12.6 g/dL 4 Unknown COMPLETE BLOOD COUNT [id number] HCT DET 39.0 % 4 Unknown COMPLETE BLOOD COUNT [id number] MCV 89.2 fL 4 Unknown COMPLETE BLOOD COUNT [id number] MCH 28.8 pg 4 Unknown COMPLETE BLOOD COUNT [id number] MCHC 32.3 g/dL 4 Unknown COMPLETE BLOOD COUNT [id number] PLT 265 10e9/L 02/05/20 14 Unknown COMPLETE BLOOD COUNT [id number] MPV 10.8 fL 4 Unknown COMPLETE BLOOD COUNT 8137486 CRISTI % 55.5 % 4 Unknown COMPLETE BLOOD COUNT [id number] LY % 30.8 % 4 Unknown COMPLETE BLOOD COUNT 7646170 MON % 10.0 % 4 Unknown COMPLETE BLOOD COUNT 0890683 EOS % 2.7 % 4 Unknown COMPLETE BLOOD COUNT [id number] BASO % 1.0 % 4 Unknown COMPLETE BLOOD COUNT [id number] RDW 14.2 % 4 Unknown COMPLETE BLOOD COUNT [id number] ABS CRISTI 3.27 10e9/L 014 Unknown COMPLETE BLOOD COUNT [id number] ABS LYMPH 1.82 10e9/L 014 Unknown COMPLETE BLOOD COUNT [id number] ABS MONO 0.59 10e9/L 014 Unknown COMPLETE BLOOD COUNT [id number] ABS EOS 0.16 10e9/L 014 Unknown COMPLETE BLOOD COUNT [id number] ABS BASO 0.06 10e9/L 014 Unknown COMPLETE BLOOD COUNT [id number] RDW-SD 45.2 fL 4 Unknown LIPID GROUP 95191 HDL TEST 69 MG/DL 02/04/2014 Unknown LIPID GROUP 80288 TRIG 121 MG/DL 02/04/2014 Unknown LIPID GROUP 62893 TEST LDL 144 MG/DL 02/04/2014 Unknown LIPID GROUP 97939 CHOL 237 MG/DL 02/04/2014 Unknown LIPID GROUP 51797 RCHOL/HDL 3.43 RATIO 02/04/2014 Unknow n THYROID STIMULATING HORMONE 40063 TSH 2.310 uIU/ML 02/04/2014 Unknown THYROID STIMULATING HORMONE 63817 TSH 2.429 uIU/ML 03/18/2012 Unknown COMPREHENSIVE METABOLIC 53160 AST 17 U/L 2011 Unknown COMPREHENSIVE METABOLIC 80331 ALT 15 IU/L 2011 Unknown COMPREHENSIVE METABOLIC 04473 BUN 17 MG/DL 2011 Unknown COMPREHENSIVE METABOLIC 80920 ALBUMIN 4.1 GM/DL 2011 Unknown COMPREHENSIVE METABOLIC 16951 CHLORIDE 108 MMOL/L 03/18 Unknown COMPREHENSIVE METABOLIC 91976 BILI TOT 0.7 MG/DL 2011 Unknown COMPREHENSIVE METABOLIC 51414 ALK PHOS 79 U/L 2011 Unknown COMPREHENSIVE METABOLIC 88367 SODIUM 144 MMOL/L 03/18 Unknown COMPREHENSIVE METABOLIC 51879 CREATININE 0.68 MG/DL 02/23 Unknown COMPREHENSIVE METABOLIC 76776 CALCIUM 9.0 MG/DL 2011 Unknown COMPREHENSIVE METABOLIC 52801 POTASSIUM 3.7 MMOL/L 03/18 Unknown COMPREHENSIVE METABOLIC 21282 PROT TOT 6.6 GM/DL 2011 Unknown COMPREHENSIVE METABOLIC 96816 Glucose 99 MG/DL 2011 Unknown COMPREHENSIVE METABOLIC 89047 BICARB 28 MMOL/L 2011 Unknown COMPREHENSIVE METABOLIC 59614 ANION GAP 8 MEQ/L 2011 Unknown LIPID GROUP 15240 HDL TEST 65 MG/DL 03/18/2012 Unknown LIPID GROUP 85646 TRIG 86 MG/DL 03/18/2012 Unknown LIPID GROUP 14932 TEST LDL 153 MG/DL 03/18/2012 Unknown LIPID GROUP 32373 CHOL 235 MG/DL 03/18/2012 Unknown LIPID GROUP 12146 RCHOL/HDL 3.62 RATIO 03/18/2012 Unknow n GFR CALC [id number] GFR AA >60 ML/MIN 03/18/2012 Unknown GFR CALC 5010952 GFR NON-AA >60 ML/MIN 03/18/2012 Unknown COMPLETE BLOOD COUNT 32739 WBC 5.1 10e9/L 03/18/20 12 Unknown COMPLETE BLOOD COUNT 24659 RBC 4.32 10e12/L 2011 Unknown COMPLETE BLOOD COUNT 60651 HGB 12.4 g/dL 2 Unknown COMPLETE BLOOD COUNT 64375 HCT DET 38.4 % 2 Unknown COMPLETE BLOOD COUNT 41121 MCV 88.9 fL 2 Unknown COMPLETE BLOOD COUNT 60627 MCH 28.7 pg 2 Unknown COMPLETE BLOOD COUNT 93782 MCHC 32.3 g/dL 2 Unknown COMPLETE BLOOD COUNT 15821 PLT 245 10e9/L 03/18/20 12 Unknown COMPLETE BLOOD COUNT 11424 MPV 10.7 fL 2 Unknown COMPLETE BLOOD COUNT 57233 CRISTI % 52.9 % 2 Unknown COMPLETE BLOOD COUNT 44408 LY % 31.5 % 2 Unknown COMPLETE BLOOD COUNT 52587 MON % 12.3 % 2 Unknown COMPLETE BLOOD COUNT 64399 EOS % 2.9 % 2 Unknown COMPLETE BLOOD COUNT 39764 BASO % 0.4 % 2 Unknown COMPLETE BLOOD COUNT 88571 RDW 13.9 % 2 Unknown COMPLETE BLOOD COUNT 61761 ABS CRISTI 2.70 10e9/L 012 Unknown COMPLETE BLOOD COUNT 35497 ABS LYMPH 1.61 10e9/L 012 Unknown COMPLETE BLOOD COUNT 69580 ABS MONO 0.63 10e9/L 012 Unknown COMPLETE BLOOD COUNT 31958 ABS EOS 0.15 10e9/L 012 Unknown COMPLETE BLOOD COUNT 66613 ABS BASO 0.02 10e9/L 012 Unknown COMPLETE BLOOD COUNT 74841 RDW-SD 44.5 fL 2 Unknown FREE T4 39454 FREE T4 1.50 NG/DL 03/18/2012 Unknown LIPID GROUP 43570 HDL TEST 61 MG/DL 07/13/2011 Unknown LIPID GROUP 42926 TRIG 158 MG/DL 07/13/2011 Unknown LIPID GROUP 88245 TEST LDL 131 MG/DL 07/13/2011 Unknown LIPID GROUP 01556 CHOL 224 MG/DL 07/13/2011 Unknown LIPID GROUP 50858 RCHOL/HDL 3.67 RATIO 07/13/2011 Unknow n COMPREHENSIVE METABOLIC 78808 AST 19 U/L 2010 Unknown COMPREHENSIVE METABOLIC 61080 ALT 17 IU/L 2010 Unknown COMPREHENSIVE METABOLIC 61191 BUN 14 MG/DL 2010 Unknown COMPREHENSIVE METABOLIC 64388 ALBUMIN 4.2 GM/DL 2010 Unknown COMPREHENSIVE METABOLIC 17074 CHLORIDE 105 MMOL/L 07/13 Unknown COMPREHENSIVE METABOLIC 54450 BILI TOT 0.9 MG/DL 2010 Unknown COMPREHENSIVE METABOLIC 07566 ALK PHOS 71 U/L 2010 Unknown COMPREHENSIVE METABOLIC 19520 SODIUM 141 MMOL/L 07/13 Unknown COMPREHENSIVE METABOLIC 35294 CREATININE 0.68 MG/DL 06/25 Unknown COMPREHENSIVE METABOLIC 22179 CALCIUM 9.3 MG/DL 2010 Unknown COMPREHENSIVE METABOLIC 81035 POTASSIUM 3.8 MMOL/L 07/13 Unknown COMPREHENSIVE METABOLIC 17820 PROT TOT 6.5 GM/DL 2010 Unknown COMPREHENSIVE METABOLIC 32411 Glucose 94 MG/DL 2010 Unknown COMPREHENSIVE METABOLIC 10740 BICARB 28 MMOL/L 2010 Unknown COMPREHENSIVE METABOLIC 88125 ANION GAP 8 MEQ/L 2010 Unknown COMPLETE BLOOD COUNT 84112 WBC 5.4 10e9/L 07/13/20 11 Unknown COMPLETE BLOOD COUNT 16128 RBC 4.20 10e12/L 2010 Unknown COMPLETE BLOOD COUNT 45741 HGB 12.4 g/dL 1 Unknown COMPLETE BLOOD COUNT 45998 HCT DET 37.6 % 1 Unknown COMPLETE BLOOD COUNT 86451 MCV 89.5 fL 1 Unknown COMPLETE BLOOD COUNT 35105 MCH 29.5 pg 1 Unknown COMPLETE BLOOD COUNT 55061 MCHC 33.0 g/dL 1 Unknown COMPLETE BLOOD COUNT 65937 PLT 273 10e9/L 07/13/20 11 Unknown COMPLETE BLOOD COUNT 04616 MPV 10.7 fL 1 Unknown COMPLETE BLOOD COUNT 66491 CRISTI % 49.9 % 1 Unknown COMPLETE BLOOD COUNT 41985 LY % 35.9 % 1 Unknown COMPLETE BLOOD COUNT 93474 MON % 10.4 % 1 Unknown COMPLETE BLOOD COUNT 21412 EOS % 2.9 % 1 Unknown COMPLETE BLOOD COUNT 80081 BASO % 0.9 % 1 Unknown COMPLETE BLOOD COUNT 67165 RDW 13.8 % 1 Unknown COMPLETE BLOOD COUNT 83030 ABS CRISTI 2.69 10e9/L 011 Unknown COMPLETE BLOOD COUNT 62338 ABS LYMPH 1.94 10e9/L 011 Unknown COMPLETE BLOOD COUNT 79331 ABS MONO 0.56 10e9/L 011 Unknown COMPLETE BLOOD COUNT 02938 ABS EOS 0.16 10e9/L 011 Unknown COMPLETE BLOOD COUNT 45221 ABS BASO 0.05 10e9/L 011 Unknown COMPLETE BLOOD COUNT 04768 RDW-SD 44.4 fL 1 Unknown GFR CALC [id number] GFR AA >60 ML/MIN 07/13/2011 Unknown GFR CALC 8000859 GFR NON-AA >60 ML/MIN 07/13/2011 Unknown FREE T4 09957 FREE T4 1.36 NG/DL 07/13/2011 Unknown THYROID STIMULATING HORMONE 28094 TSH 4.261 uIU/ML 07/13/2011 Unknown GFR CALC 6481696 GFR AA >60 ML/MIN 03/13/2011 Unknown GFR CALC 0267540 GFR NON-AA >60 ML/MIN 03/13/2011 Unknown LIPID GROUP 04950 HDL TEST 60 MG/DL 03/13/2011 Unknown LIPID GROUP 67766 TRIG 140 MG/DL 03/13/2011 Unknown LIPID GROUP 80879 TEST LDL 122 MG/DL 03/13/2011 Unknown LIPID GROUP 35746 CHOL 210 MG/DL 03/13/2011 Unknown LIPID GROUP 75935 RCHOL/HDL 3.50 RATIO 03/13/2011 Unknow n FREE T4 17917 FREE T4 1.36 NG/DL 03/13/2011 Unknown THYROID STIMULATING HORMONE 79857 TSH 7.688 uIU/ML 03/13/2011 Unknown COMPREHENSIVE METABOLIC 51100 AST 17 U/L 2010 Unknown COMPREHENSIVE METABOLIC 18181 ALT 12 IU/L 2010 Unknown COMPREHENSIVE METABOLIC 68589 BUN 19 MG/DL 2010 Unknown COMPREHENSIVE METABOLIC 35360 ALBUMIN 4.3 GM/DL 2010 Unknown COMPREHENSIVE METABOLIC 95247 CHLORIDE 105 MMOL/L 03/13 Unknown COMPREHENSIVE METABOLIC 84911 BILI TOT 0.6 MG/DL 2010 Unknown COMPREHENSIVE METABOLIC 92827 ALK PHOS 68 U/L 2010 Unknown COMPREHENSIVE METABOLIC 43957 SODIUM 139 MMOL/L 03/13 Unknown COMPREHENSIVE METABOLIC 44173 CREATININE 0.77 MG/DL 02/23 Unknown COMPREHENSIVE METABOLIC 45095 CALCIUM 9.2 MG/DL 2010 Unknown COMPREHENSIVE METABOLIC 09115 POTASSIUM 3.8 MMOL/L 03/13 Unknown COMPREHENSIVE METABOLIC 86851 PROT TOT 6.9 GM/DL 2010 Unknown COMPREHENSIVE METABOLIC 98065 Glucose 97 MG/DL 2010 Unknown COMPREHENSIVE METABOLIC 15357 BICARB 25 MMOL/L 2010 Unknown COMPREHENSIVE METABOLIC 56241 ANION GAP 9 MEQ/L 2010 Unknown FREE T4 58160 FREE T4 1.32 NG/DL 12/16/2010 Unknown COMPLETE BLOOD COUNT 60332 WBC 5.6 10e9/L 12/17/19 11 Unknown COMPLETE BLOOD COUNT 16706 RBC 4.38 10e12/L 2010 Unknown COMPLETE BLOOD COUNT 87456 HGB 12.5 g/dL 1 Unknown COMPLETE BLOOD COUNT 37865 HCT DET 38.7 % 1 Unknown COMPLETE BLOOD COUNT 30417 MCV 88.4 fL 1 Unknown COMPLETE BLOOD COUNT 05893 MCH 28.5 pg 1 Unknown COMPLETE BLOOD COUNT 14741 MCHC 32.3 g/dL 1 Unknown COMPLETE BLOOD COUNT 03231 PLT 249 10e9/L 12/17/19 11 Unknown COMPLETE BLOOD COUNT 77715 MPV 10.5 fL 1 Unknown COMPLETE BLOOD COUNT 43567 CRISTI % 52.8 % 1 Unknown COMPLETE BLOOD COUNT 51304 LY % 33.3 % 1 Unknown COMPLETE BLOOD COUNT 42475 MON % 9.8 % 1 Unknown COMPLETE BLOOD COUNT 58770 EOS % 3.4 % 1 Unknown COMPLETE BLOOD COUNT 00339 BASO % 0.7 % 1 Unknown COMPLETE BLOOD COUNT 52866 RDW 14.2 % 1 Unknown COMPLETE BLOOD COUNT 51377 ABS CRISTI 2.96 10e9/L 011 Unknown COMPLETE BLOOD COUNT 41440 ABS LYMPH 1.86 10e9/L 011 Unknown COMPLETE BLOOD COUNT 42196 ABS MONO 0.55 10e9/L 011 Unknown COMPLETE BLOOD COUNT 07254 ABS EOS 0.19 10e9/L 011 Unknown COMPLETE BLOOD COUNT 36158 ABS BASO 0.04 10e9/L 011 Unknown COMPLETE BLOOD COUNT 08733 RDW-SD 45.1 fL 1 Unknown GFR CALC 5997355 GFR AA >60 ML/MIN 12/16/2010 Unknown GFR CALC 3454600 GFR NON-AA >60 ML/MIN 12/16/2010 Unknown THYROID STIMULATING HORMONE 65557 TSH 7.082 uIU/ML 12/16/2010 Unknown COMPREHENSIVE METABOLIC 89669 AST 21 U/L 2010 Unknown COMPREHENSIVE METABOLIC 01276 ALT 18 IU/L 2010 Unknown COMPREHENSIVE METABOLIC 58756 BUN 22 MG/DL 2010 Unknown COMPREHENSIVE METABOLIC 33122 ALBUMIN 4.6 GM/DL 2010 Unknown COMPREHENSIVE METABOLIC 09076 CHLORIDE 102 MMOL/L 12/16 Unknown COMPREHENSIVE METABOLIC 55647 BILI TOT 0.6 MG/DL 2010 Unknown COMPREHENSIVE METABOLIC 41402 ALK PHOS 72 U/L 2010 Unknown COMPREHENSIVE METABOLIC 79645 SODIUM 140 MMOL/L 12/16 Unknown COMPREHENSIVE METABOLIC 18775 CREATININE 0.73 MG/DL 11/23 Unknown COMPREHENSIVE METABOLIC 54223 CALCIUM 9.4 MG/DL 2010 Unknown COMPREHENSIVE METABOLIC 48438 POTASSIUM 4.2 MMOL/L 12/16 Unknown COMPREHENSIVE METABOLIC 83671 PROT TOT 7.1 GM/DL 2010 Unknown COMPREHENSIVE METABOLIC 54916 Glucose 88 MG/DL 2010 Unknown COMPREHENSIVE METABOLIC 23824 BICARB 30 MMOL/L 2010 Unknown COMPREHENSIVE METABOLIC 91753 ANION GAP 8 MEQ/L 2010 Unknown LIPID GROUP 61961 HDL TEST 66 MG/DL 12/16/2010 Unknown LIPID GROUP 58145 TRIG 154 MG/DL 12/16/2010 Unknown LIPID GROUP 25972 TEST LDL 128 MG/DL 12/16/2010 Unknown LIPID GROUP 73849 CHOL 225 MG/DL 12/16/2010 Unknown LIPID GROUP 27661 RCHOL/HDL 3.41 RATIO 12/16/2010 Unknow n Procedures Procedure Codes Date ROUTINE VENIPUNCTURE CPT-4: 34035 02/28/2022 RML ASSAY OF FREE THYROXINE CPT-4: 35158 02/28/2022 RML ASSAY THYROID STIM HORMONE CPT-4: 44122 RML COMPREHEN METABOLIC PANEL CPT-4: 24099 02/28/2022 RML COMPLETE CBC W/AUTO DIFF WBC CPT-4: 80276 022 RML LIPID PANEL CPT-4: 05540 02/28/2022 RML A1C HPLC CPT-4: 81963 02/28/2022 SARSCOV & INF VIR A&B AG IA CPT-4: 68364 08/09/2021 CLEAR OUTER EAR CANAL CPT-4: 46866 08/09/2021 ROUTINE VENIPUNCTURE CPT-4: 29722 07/20/2021 RML ASSAY OF FREE THYROXINE CPT-4: 43350 07/20/2021 RML ASSAY THYROID STIM HORMONE CPT-4: 95260 RML COMPREHEN METABOLIC PANEL CPT-4: 22388 07/20/2021 RML COMPLETE CBC W/AUTO DIFF WBC CPT-4: 05990 021 RML A1C HPLC CPT-4: 67285 07/20/2021 DESTRUCT B9 LESION 1-14 CPT-4: 10610 05/12/2021 THER/PROPH/DIAG INJ SC/IM CPT-4: 92725 03/08/2021 TRIAMCINOLONE ACET INJ NOS CPT-4: J3301 03/08/2021 ROUTINE VENIPUNCTURE CPT-4: 67722 01/31/2021 RML COMPREHEN METABOLIC PANEL CPT-4: 08140 01/31/2021 RML COMPLETE CBC W/AUTO DIFF WBC CPT-4: 32215 021 RML LIPID PANEL CPT-4: 57593 01/31/2021 RML ASSAY OF FREE THYROXINE CPT-4: 56430 01/31/2021 RML ASSAY THYROID STIM HORMONE CPT-4: 34040 RML A1C HPLC CPT-4: 95135 01/31/2021 EXC TR-EXT B9+JOSE G 0.5 CM< CPT-4: 20230 05/19/2020 PPPS, subseq visit CPT-4: G0439 05/11/2020 ROUTINE VENIPUNCTURE CPT-4: 58543 05/05/2020 RML ASSAY OF FREE THYROXINE CPT-4: 40692 05/05/2020 RML ASSAY THYROID STIM HORMONE CPT-4: 47987 0 RML COMPREHEN METABOLIC PANEL CPT-4: 21120 05/05/2020 RML COMPLETE CBC W/AUTO DIFF WBC CPT-4: 70469 020 RML LIPID PANEL CPT-4: 70926 05/05/2020 RML A1C HPLC CPT-4: 73308 05/05/2020 THER/PROPH/DIAG INJ SC/IM CPT-4: 18303 01/28/2020 TRIAMCINOLONE ACET INJ NOS CPT-4: J3301 01/28/2020 ROUTINE VENIPUNCTURE CPT-4: 70476 01/05/2020 RML ASSAY OF FREE THYROXINE CPT-4: 94304 01/05/2020 RML ASSAY THYROID STIM HORMONE CPT-4: 11545 0 RML COMPREHEN METABOLIC PANEL CPT-4: 00129 01/05/2020 RML COMPLETE CBC W/AUTO DIFF WBC CPT-4: 62595 020 ASSAY OF AMYLASE CPT-4: 25202 01/05/2020 ASSAY OF LIPASE CPT-4: 07338 01/05/2020 ROUTINE VENIPUNCTURE CPT-4: 58762 12/05/2019 RML COMPREHEN METABOLIC PANEL CPT-4: 34768 12/05/2019 ROUTINE VENIPUNCTURE CPT-4: 93267 11/05/2019 RML COMPREHEN METABOLIC PANEL CPT-4: 75859 11/05/2019 URINALYSIS NONAUTO W/O SCOPE CPT-4: 57297 10/23/2019 URINE CULTURE/ COLONY COUNT CPT-4: 20021 10/23/2019 ROUTINE VENIPUNCTURE CPT-4: 74083 10/21/2019 RML ASSAY OF FREE THYROXINE CPT-4: 23141 10/21/2019 RML ASSAY THYROID STIM HORMONE CPT-4: 11483 0 RML COMPREHEN METABOLIC PANEL CPT-4: 96487 10/21/2019 RML COMPLETE CBC W/AUTO DIFF WBC CPT-4: 43157 020 RML LIPID PANEL CPT-4: 63722 10/21/2019 HYDRATION IV INFUSION INIT CPT-4: 76047 10/20/2019 Removal impacted cerumen using irrigation/lavage, unilateral CPT-4: 77172 10/20/2019 ROUTINE VENIPUNCTURE CPT-4: 52648 04/04/2019 RML COMPLETE CBC W/AUTO DIFF WBC CPT-4: 33732 019 RML COMPREHEN METABOLIC PANEL CPT-4: 97930 04/04/2019 RML ASSAY THYROID STIM HORMONE CPT-4: 11697 9 RML ASSAY OF FREE THYROXINE CPT-4: 94091 04/04/2019 RML LIPID PANEL CPT-4: 32969 04/04/2019 PPPS, subseq visit CPT-4: G0439 11/26/2018 ROUTINE VENIPUNCTURE CPT-4: 72540 10/07/2018 RML ASSAY THYROID STIM HORMONE CPT-4: 75475 9 RML ASSAY OF FREE THYROXINE CPT-4: 33535 10/07/2018 RML COMPREHEN METABOLIC PANEL CPT-4: 55189 10/07/2018 RML COMPLETE CBC W/AUTO DIFF WBC CPT-4: 01987 019 RML LIPID PANEL CPT-4: 09912 10/07/2018 RML A1C HPLC CPT-4: 64652 10/07/2018 CERUM REMOVAL CPT-4: 81075 06/25/2018 THER/PROPH/DIAG INJ SC/IM CPT-4: 26732 05/03/2018 TRIAMCINOLONE ACET INJ NOS CPT-4: J3301 05/03/2018 Removal impacted cerumen using irrigation/lavage, unilateral CPT-4: 48575 02/19/2018 ROUTINE VENIPUNCTURE CPT-4: 12080 02/13/2018 RML ASSAY OF FREE THYROXINE CPT-4: 35143 02/13/2018 RML ASSAY THYROID STIM HORMONE CPT-4: 73748 8 RML COMPREHEN METABOLIC PANEL CPT-4: 16478 02/13/2018 RML COMPLETE CBC W/AUTO DIFF WBC CPT-4: 08480 018 ROUTINE VENIPUNCTURE CPT-4: 71328 10/15/2017 RML ASSAY OF FREE THYROXINE CPT-4: 28393 10/15/2017 RML ASSAY THYROID STIM HORMONE CPT-4: 47496 8 RML COMPREHEN METABOLIC PANEL CPT-4: 88132 10/15/2017 RML COMPLETE CBC W/AUTO DIFF WBC CPT-4: 21807 018 RML LIPID PANEL CPT-4: 51713 10/15/2017 VITAMIN B-12 CPT-4: 19944 10/15/2017 CERUM REMOVAL CPT-4: 63304 07/24/2017 ROUTINE VENIPUNCTURE CPT-4: 02699 03/30/2017 VITAMIN B-12 CPT-4: 01598 03/30/2017 ROUTINE VENIPUNCTURE CPT-4: 57515 12/18/2016 VITAMIN B-12 CPT-4: 54985 12/18/2016 PPPS, subseq visit CPT-4: G0439 12/18/2016 ROUTINE VENIPUNCTURE CPT-4: 88803 12/11/2016 RML ASSAY OF FREE THYROXINE CPT-4: 97712 12/11/2016 RML ASSAY THYROID STIM HORMONE CPT-4: 90672 7 RML COMPREHEN METABOLIC PANEL CPT-4: 88668 12/11/2016 RML COMPLETE CBC W/AUTO DIFF WBC CPT-4: 24603 017 RML LIPID PANEL CPT-4: 49479 12/11/2016 RML A1C HPLC CPT-4: 02851 12/11/2016 URINALYSIS NONAUTO W/O SCOPE CPT-4: 00742 02/07/2016 ROUTINE VENIPUNCTURE CPT-4: 64573 05/27/2015 RML ASSAY OF FREE THYROXINE CPT-4: 77267 05/27/2015 RML ASSAY THYROID STIM HORMONE CPT-4: 34601 5 RML COMPREHEN METABOLIC PANEL CPT-4: 28493 05/27/2015 RML COMPLETE CBC W/AUTO DIFF WBC CPT-4: 86126 015 RML LIPID PANEL CPT-4: 51042 05/27/2015 VITAMIN B-12 CPT-4: 16176 05/27/2015 RML A1C HPLC CPT-4: 53478 05/27/2015 PNEUMOCOCCAL VACC 13 LEN IM CPT-4: 02513 05/26/2015 ADMIN PNEUMOCOCCAL VACCINE CPT-4: G0009 05/26/2015 CUR TOBACCO NON-USER CPT-4: G8457 05/26/2015 OCCULT BLOOD FECES CPT-4: 90380 02/19/2015 OCCULT BLOOD FECES CPT-4: 95476 01/20/2015 ROUTINE VENIPUNCTURE CPT-4: 17706 12/15/2014 ASSAY OF IRON CPT-4: 88119 12/15/2014 RML COMPLETE CBC W/AUTO DIFF WBC CPT-4: 07607 015 CERUM REMOVAL CPT-4: 49229 11/30/2014 PRESCRIP TRANSMIT VIA ERX SY CPT-4: G8553 11/30/2014 ROUTINE VENIPUNCTURE CPT-4: 68254 11/26/2014 RML COMPREHEN METABOLIC PANEL CPT-4: 83872 11/26/2014 RML LIPID PANEL CPT-4: 20217 11/26/2014 ROUTINE VENIPUNCTURE CPT-4: 82638 08/14/2014 RML ASSAY OF FREE THYROXINE CPT-4: 16459 08/14/2014 RML ASSAY THYROID STIM HORMONE CPT-4: 09347 4 RML COMPREHEN METABOLIC PANEL CPT-4: 50017 08/14/2014 RML COMPLETE CBC W/AUTO DIFF WBC CPT-4: 35865 014 RML LIPID PANEL CPT-4: 34620 08/14/2014 PRESCRIP TRANSMIT VIA ERX SY CPT-4: G8553 07/23/2014 PRESCRIP TRANSMIT VIA ERX SY CPT-4: G8553 03/09/2014 PRESCRIP TRANSMIT VIA ERX SY CPT-4: G8553 02/05/2014 ROUTINE VENIPUNCTURE CPT-4: 10460 02/04/2014 RML ASSAY OF FREE THYROXINE CPT-4: 54165 02/04/2014 RML ASSAY THYROID STIM HORMONE CPT-4: 38738 4 RML COMPREHEN METABOLIC PANEL CPT-4: 47533 02/04/2014 RML COMPLETE CBC W/AUTO DIFF WBC CPT-4: 29533 014 RML LIPID PANEL CPT-4: 64662 02/04/2014 DRAIN/INJECT JOINT/BURSA CPT-4: 83622 04/07/2013 METHYLPREDNISOLONE 40 MG INJ CPT-4: J1030 04/07/2013 TRIAMCINOLONE ACET INJ NOS CPT-4: J3301 04/07/2013 PRESCRIP TRANSMIT VIA ERX SY CPT-4: G8553 04/07/2013 DRAIN/INJECT JOINT/BURSA CPT-4: 57267 10/09/2012 METHYLPREDNISOLONE 40 MG INJ CPT-4: J1030 10/09/2012 TRIAMCINOLONE ACET INJ NOS CPT-4: J3301 10/09/2012 PRESCRIP TRANSMIT VIA ERX SY CPT-4: G8553 03/28/2012 ROUTINE VENIPUNCTURE CPT-4: 14419 03/18/2012 RML ASSAY OF FREE THYROXINE CPT-4: 66826 03/18/2012 RML ASSAY THYROID STIM HORMONE CPT-4: 50133 2 RML COMPREHEN METABOLIC PANEL CPT-4: 95526 03/18/2012 RML COMPLETE CBC W/AUTO DIFF WBC CPT-4: 19856 012 RML LIPID PANEL CPT-4: 66712 03/18/2012 CERUM REMOVAL CPT-4: 64444 2012 OCCULT BLOOD FECES CPT-4: 70403 09/27/2011 CA SCREEN;PELVIC/BREAST EXAM CPT-4: G0101 09/27/2011 OBTAINING SCREEN PAP SMEAR CPT-4: Q0091 09/27/2011 CUR TOBACCO NON-USER CPT-4: G8457 09/13/2011 PRESCRIP TRANSMIT VIA ERX SY CPT-4: G8553 09/13/2011 PRESCRIP TRANSMIT VIA ERX SY CPT-4: G8553 08/07/2011 ROUTINE VENIPUNCTURE CPT-4: 49626 07/13/2011 RML ASSAY OF FREE THYROXINE CPT-4: 87294 07/13/2011 RML ASSAY THYROID STIM HORMONE CPT-4: 87508 1 RML COMPREHEN METABOLIC PANEL CPT-4: 35299 07/13/2011 RML COMPLETE CBC W/AUTO DIFF WBC CPT-4: 97306 011 RML LIPID PANEL CPT-4: 71006 07/13/2011 ROUTINE VENIPUNCTURE CPT-4: 65795 03/13/2011 RML COMPREHEN METABOLIC PANEL CPT-4: 48930 03/13/2011 RML LIPID PANEL CPT-4: 63122 03/13/2011 RML ASSAY THYROID STIM HORMONE CPT-4: 36002 1 RML ASSAY OF FREE THYROXINE CPT-4: 61115 03/13/2011 PRESCRIP TRANSMIT VIA ERX SY CPT-4: G8553 01/04/2011 ROUTINE VENIPUNCTURE CPT-4: 66079 12/16/2010 RML LIPID PANEL CPT-4: 81482 12/16/2010 RML COMPLETE CBC W/AUTO DIFF WBC CPT-4: 65581 011 RML COMPREHEN METABOLIC PANEL CPT-4: 24957 12/16/2010 RML ASSAY OF FREE THYROXINE CPT-4: 10871 12/16/2010 RML ASSAY THYROID STIM HORMONE CPT-4: 79657 1 INJ TRIGGER POINT / MUSCL CPT-4: 80898 02/14/2010 TRIAMCINOLONE ACET INJ NOS CPT-4: J3301 02/14/2010 METHYLPREDNISOLONE 40 MG INJ CPT-4: J1030 02/14/2010 THER/PROPH/DIAG INJ SC/IM CPT-4: 30499 02/07/2010 KETOROLAC TROMETHAMINE INJ CPT-4: J1885 02/07/2010 ROUTINE VENIPUNCTURE CPT-4: 85191 12/22/2009 Vital Signs Date Vital 08/07/2022 Blood Pressure 1: 134/86 Code: 8480-6 BMI: 25.8 Code: 07864-1 Heart Rate 1: 120 bpm Height: 5'10" Code: 8302-2 Respiratory Rate: 20 bpm SpO2: 97% Temperature: 36.2 (C) / 97.1 (F) Weight: 180 lbs Code: 04293-6 08/02/2022 Blood Pressure 1: 141/102 Code: 8480-6 BMI: 26.4 Code: 04612-9 Heart Rate 1: 91 bpm Height: 5'10" Code: 8302-2 SpO2: 98% Temperature: 36.2 (C) / 97.1 (F) Weight: 184 lbs Code: 21490-8 06/26/2022 Blood Pressure 1: 132/78 Code: 8480-6 BMI: 25.5 Code: 05870-3 Heart Rate 1: 96 bpm Height: 5'10" Code: 8302-2 SpO2: 98% Temperature: 36.2 (C) / 97.2 (F) Weight: 178 lbs Code: 74111-4 05/22/2022 Blood Pressure 1: 126/82 Code: 8480-6 BMI: 25.5 Code: 94172-4 Heart Rate 1: 104 bpm Height: 5'10" Code: 8302-2 Respiratory Rate: 20 bpm SpO2: 96% Temperature: 36.8 (C) / 98.2 (F) Weight: 178 lbs Code: 12809-4 02/27/2022 Blood Pressure 1: 142/82 Code: 8480-6 BMI: 25.5 Code: 04875-7 Heart Rate 1: 112 bpm Height: 5'10" Code: 8302-2 Respiratory Rate: 20 bpm SpO2: 96% Temperature: 36.8 (C) / 98.3 (F) Weight: 178 lbs Code: 89679-8 11/23/2021 Blood Pressure 1: 136/82 Code: 8480-6 BMI: 25.7 Code: 72215-4 Heart Rate 1: 72 bpm Height: 5'10" Code: 8302-2 Respiratory Rate: 20 bpm SpO2: 98% Temperature: 36.6 (C) / 97.9 (F) Weight: 179 lbs Code: 09130-0 10/12/2021 Blood Pressure 1: 128/92 Code: 8480-6 BMI: 25.5 Code: 18447-9 Heart Rate 1: 68 bpm Height: 5'10" Code: 8302-2 Respiratory Rate: 20 bpm SpO2: 98% Temperature: 36.7 (C) / 98.1 (F) Weight: 178 lbs Code: 65631-4 08/09/2021 Blood Pressure 1: 127/80 Code: 8480-6 Heart Rate 1: 69 bpm Respiratory Rate: 15 bpm SpO2: 98% Temperature: 36.7 (C) / 98.0 (F) We ight: 171 lbs Code: 32560-1 07/28/2021 Blood Pressure 1: 132/78 Code: 8480-6 Heart Rate 1: 76 bpm Respiratory Rate: 20 bpm SpO2: 96% Temperature: 36.8 (C) / 98.2 (F) We ight: 174 lbs Code: 28941-9 05/12/2021 Blood Pressure 1: 142/80 Code: 8480-6 Heart Rate 1: 76 bpm Respiratory Rate: 20 bpm SpO2: 96% Temperature: 36.8 (C) / 98.2 (F) We ight: 173 lbs Code: 48748-2 03/08/2021 Blood Pressure 1: 124/80 Code: 8480-6 Heart Rate 1: 88 bpm Respiratory Rate: 20 bpm SpO2: 98% Temperature: 36.8 (C) / 98.3 (F) We ight: 175 lbs Code: 98210-8 02/03/2021 Blood Pressure 1: 144/84 Code: 8480-6 Heart Rate 1: 68 bpm Respiratory Rate: 20 bpm SpO2: 97% Temperature: 36.7 (C) / 98.1 (F) We ight: 182 lbs Code: 56634-1 01/04/2021 Blood Pressure 1: 152/86 Code: 8480-6 Heart Rate 1: 72 bpm Respiratory Rate: 20 bpm SpO2: 97% Temperature: 36.6 (C) / 97.8 (F) We ight: 182 lbs Code: 75014-7 10/05/2020 Blood Pressure 1: 124/66 Code: 8480-6 He art Rate 1: 65 bpm 09/20/2020 Blood Pressure 1: 134/76 Code: 8480-6 Heart Rate 1: 60 bpm Respiratory Rate: 20 bpm SpO2: 97% Temperature: 36.1 (C) / 97.0 (F) We ight: 187 lbs Code: 98256-5 05/28/2020 Temperature: 36.8 (C) / 98.3 (F) 05/19/2020 Blood Pressure 1: 128/78 Code: 8480-6 Heart Rate 1: 50 bpm Respiratory Rate: 20 bpm SpO2: 98% Temperature: 36.5 (C) / 97.7 (F) 05/11/2020 Blood Pressure 1: 126/80 Code: 8480-6 BMI: 25.4 Code: 87095-8 Heart Rate 1: 60 bpm Height: 5'10" Code: 8302-2 Respiratory Rate: 20 bpm Temperat ure: 36.6 (C) / 97.8 (F) Weight: 177 lbs Code: 79068-0 05/05/2020 Blood Pressure 1: 122/78 Code: 8480-6 [...] 1: 104/66 Code: 8480-6 BMI: 25.4 Code: 81154-6 Heart Rate 1: 56 bpm Height: 5'10" Code: 8302-2 Respiratory Rate: 20 bpm SpO2: 97% Temperature: 36.6 (C) / 97.8 (F) Weight: 177 lbs Code: 51103-0 10/29/2019 Blood Pressure 1: 114/62 Code: 8480-6 Heart Rate 1: 68 bpm Respiratory Rate: 20 bpm SpO2: 99% Temperature: 36.8 (C) / 98.2 (F) 10/20/2019 Blood Pressure 1: 119/74 Code: 8480-6 Heart Rate 1: 57 bpm Respiratory Rate: 16 bpm SpO2: 99% Temperature: 36.9 (C) / 98.4 (F) We ight: 176 lbs Code: 86817-1 07/07/2019 Blood Pressure 1: 126/74 Code: 8480-6 Heart Rate 1: 72 bpm Respiratory Rate: 16 bpm SpO2: 95% Temperature: 36.8 (C) / 98.2 (F) We ight: 179 lbs Code: 81441-5 05/01/2019 Blood Pressure 1: 126/76 Code: 8480-6 Heart Rate 1: 60 bpm Respiratory Rate: 20 bpm SpO2: 97% Temperature: 36.8 (C) / 98.2 (F) 04/15/2019 Blood Pressure 1: 154/94 Code: 8480-6 BMI: 26.0 Code: 66076-1 Heart Rate 1: 60 bpm Height: 5'10" Code: 8302-2 Respiratory Rate: 18 bpm SpO2: 97% Temperature: 36.6 (C) / 97.9 (F) Weight: 181 lbs Code: 84510-2 11/26/2018 Blood Pressure 1: 142/80 Code: 8480-6 BMI: 26.3 Code: 41061-2 Heart Rate 1: 56 bpm Height: 5'10" Code: 8302-2 Respiratory Rate: 20 bpm SpO2: 97% Temperature: 36.9 (C) / 98.4 (F) Weight: 183 lbs Code: 66517-2 08/08/2018 Blood Pressure 1: 126/68 Code: 8480-6 Heart Rate 1: 76 bpm Height: 5'10" Code: 8302-2 Respiratory Rate: 20 bpm SpO2: 97% Temperature: 36 .7 (C) / 98.0 (F) Weight: Code: 45638-4 06/25/2018 Blood Pressure 1: 112/70 Code: 8480-6 BMI: 25.8 Code: 76036-9 Heart Rate 1: 64 bpm Height: 5'10" Code: 8302-2 Respiratory Rate: 20 bpm SpO2: 95% Temperature: 36.9 (C) / 98.4 (F) Weight: 180 lbs Code: 84607-4 05/20/2018 Blood Pressure 1: 132/100 Code: 8480-6 H eart Rate 1: 76 bpm 05/10/2018 Blood Pressure 1: 144/86 Code: 8480-6 Heart Rate 1: 60 bpm Respiratory Rate: 20 bpm SpO2: 97% Temperature: 36.9 (C) / 98.4 (F) We ight: Code: 81331-0 05/03/2018 Blood Pressure 1: 126/92 Code: 8480-6 Bl ood Pressure 2: 147/79 Code: 8480-6 Heart Rate 1: 64 bpm Height: 5'10" Code: 8302-2 Respiratory Rate : 22 bpm SpO2: 98% Temperature: 36.3 (C) / 97.3 (F) Weight: Code: 91159- 7 04/22/2018 Blood Pressure 1: 140/82 Code: 8480-6 BMI: 26.3 Code: 89332-9 Heart Rate 1: 60 bpm Height: 5'10" Code: 8302-2 Respiratory Rate: 20 bpm SpO2: 95% Temperature: 36.8 (C) / 98.2 (F) Weight: 183 lbs Code: 15075-8 03/05/2018 Blood Pressure 1: 122/64 Code: 8480-6 BMI: 25.7 Code: 80826-0 Heart Rate 1: 82 bpm Height: 5'10" Code: 8302-2 Respiratory Rate: 22 bpm SpO2: 96% Temperature: 36.4 (C) / 97.6 (F) Weight: 179 lbs Code: 51669-8 02/19/2018 Blood Pressure 1: 120/84 Code: 8480-6 Heart Rate 1: 68 bpm SpO2: 96% Temperature: 36.2 (C) / 97.2 (F) Weight: Code: 47356-6 02/13/2018 Blood Pressure 1: 138/90 Cod e: 8480-6 10/18/2017 Blood Pressure 1: 122/78 Code: 8480-6 BMI: 26.5 Code: 47672-7 Heart Rate 1: 72 bpm Height: 5'10" Code: 8302-2 Respiratory Rate: 20 bpm Temperat ure: 36.7 (C) / 98.0 (F) Weight: 185 lbs Code: 78361-4 07/24/2017 Blood Pressure 1: 118/68 Code: 8480-6 Heart Rate 1: 82 bpm Height: 5'10" Code: 8302-2 Respiratory Rate: 20 bpm SpO2: 92% Temperature: 36 .4 (C) / 97.6 (F) Weight: Code: 79210-4 06/14/2017 Blood Pressure 1: 156/98 Code: 8480-6 Heart Rate 1: 84 bpm Height: 5'10" Code: 8302-2 Respiratory Rate: 20 bpm SpO2: 96% Temperature: 36 .9 (C) / 98.5 (F) Weight: Code: 13491-6 06/01/2017 Blood Pressure 1: 122/82 Code: 8480-6 Heart Rate 1: 68 bpm Height: 5'10" Code: 8302-2 Respiratory Rate: 20 bpm Temperature: 36.8 (C) / 98.2 (F) 03/30/2017 Blood Pressure 1: 124/78 Code: 8480-6 Heart Rate 1: 88 bpm Height: 5'10" Code: 8302-2 Respiratory Rate: 20 bpm SpO2: 96% Temperature: 36 .9 (C) / 98.4 (F) Weight: Code: 40111-7 01/17/2017 Blood Pressure 1: 126/74 Code: 8480-6 Heart Rate 1: 72 bpm Height: 5'10" Code: 8302-2 Respiratory Rate: 20 bpm SpO2: 96% Temperature: 37 .0 (C) / 98.6 (F) Weight: Code: 54925-4 12/18/2016 Blood Pressure 1: 128/86 Code: 8480-6 BMI: 24.7 Code: 37907-5 Heart Rate 1: 76 bpm Height: 5'10" Code: 8302-2 Respiratory Rate: 20 bpm SpO2: 96% Temperature: 36.8 (C) / 98.3 (F) Weight: 172 lbs Code: 94726-7 11/02/2016 Blood Pressure 1: 128/80 Code: 8480-6 BMI: 24.7 Code: 05754-2 Heart Rate 1: 72 bpm Height: 5'10" Code: 8302-2 Respiratory Rate: 20 bpm SpO2: 94% Temperature: 36.9 (C) / 98.4 (F) Weight: 172 lbs Code: 58680-0 10/24/2016 Blood Pressure 1: 120/78 Code: 8480-6 BMI: 24.7 Code: 22737-3 Heart Rate 1: 88 bpm Height: 5'10" Code: 8302-2 Respiratory Rate: 18 bpm SpO2: 96% Temperature: 36.5 (C) / 97.7 (F) Weight: 172 lbs Code: 39509-5 02/07/2016 Heart Rate 1: 76 bpm Respiratory Rate: 22 bpm SpO2: 96 % Temperature: 36.4 (C) / 97.6 (F) Weight: Code: 54501-1 05/26/2015 Blood Pressure 1: 124/70 Code: 8480-6 BMI: 25.1 Code: 54347-1 Heart Rate 1: 84 bpm Height: 5'10" Code: 8302-2 Respiratory Rate: 20 bpm Temperat ure: 36.7 (C) / 98.1 (F) Weight: 175 lbs Code: 58660-2 11/30/2014 Blood Pressure 1: 142/94 Code: 8480-6 BMI: 25.1 Code: 65048-5 Heart Rate 1: 80 bpm Height: 5'10" Code: 8302-2 Respiratory Rate: 20 bpm Temperat ure: 36.9 (C) / 98.5 (F) Weight: 175 lbs Code: 37899-1 07/23/2014 Blood Pressure 1: 138/86 Code: 8480-6 BMI: 25.0 Code: 28868-4 Heart Rate 1: 80 bpm Height: 5'10" Code: 8302-2 Respiratory Rate: 20 bpm Temperat ure: 36.4 (C) / 97.6 (F) Weight: 174 lbs Code: 23039-4 03/09/2014 Blood Pressure 1: 122/78 Code: 8480-6 BMI: 25.0 Code: 58364-2 Heart Rate 1: 78 bpm Height: 5'10" Code: 8302-2 Respiratory Rate: 24 bpm Temperat ure: 36.4 (C) / 97.6 (F) Weight: 174 lbs Code: 41357-3 02/05/2014 Blood Pressure 1: 132/80 Code: 8480-6 BMI: 25.0 Code: 27994-1 Heart Rate 1: 84 bpm Height: 5'10" Code: 8302-2 Respiratory Rate: 20 bpm Temperat ure: 36.6 (C) / 97.9 (F) Weight: 174 lbs Code: 03347-9 05/12/2013 Blood Pressure 1: 138/94 Code: 8480-6 BMI: 25.1 Code: 20042-4 Heart Rate 1: 92 bpm Height: 5'10" Code: 8302-2 Respiratory Rate: 20 bpm Temperat ure: 36.7 (C) / 98.1 (F) Weight: 175 lbs Code: 77480-7 04/07/2013 Blood Pressure 1: 136/72 Code: 8480-6 BMI: 25.1 Code: 39015-0 Heart Rate 1: 76 bpm Height: 5'10" Code: 8302-2 Respiratory Rate: 20 bpm Temperat ure: 36.7 (C) / 98.0 (F) Weight: 175 lbs Code: 39353-1 03/31/2013 Blood Pressure 1: 132/94 Code: 8480-6 BMI: 25.1 Code: 00063-5 Heart Rate 1: 76 bpm Height: 5'10" Code: 8302-2 Respiratory Rate: 20 bpm Temperat ure: 36.7 (C) / 98.0 (F) Weight: 175 lbs Code: 63952-9 10/09/2012 Blood Pressure 1: 132/80 Code: 8480-6 BMI: 24.8 Code: 79949-4 Heart Rate 1: 88 bpm Height: 5'10" Code: 8302-2 Temperature: 36.8 (C) / 98.3 (F) Weight: 173 lbs Code: 84668-6 03/28/2012 Blood Pressure 1: 126/82 Code: 8480-6 BMI: 24.7 Code: 64518-5 Heart Rate 1: 72 bpm Height: 5'10" Code: 8302-2 Respiratory Rate: 20 bpm Temperat ure: 36.6 (C) / 97.8 (F) Weight: 172 lbs Code: 18312-1 2012 Blood Pressure 1: 130/72 Code: 8480-6 Heart Rate 1: 80 bpm Height: Code: 8302-2 Temperature: 36.5 (C) / 97.7 (F) Weight: Code: 79265- 7 09/27/2011 Blood Pressure 1: 116/78 Code: 8480-6 BMI: 24.4 Code: 45076-8 Heart Rate 1: 76 bpm Height: 5'10" Code: 8302-2 Respiratory Rate: 20 bpm Temperat ure: 36.9 (C) / 98.4 (F) Weight: 170 lbs Code: 02450-6 09/13/2011 Blood Pressure 1: 124/82 Code: 8480-6 BMI: 24.4 Code: 87618-9 Heart Rate 1: 72 bpm Height: 5'10" Code: 8302-2 Respiratory Rate: 20 bpm Temperat ure: 36.4 (C) / 97.6 (F) Weight: 170 lbs Code: 75474-4 08/07/2011 Blood Pressure 1: 110/74 Code: 8480-6 BMI: 23.2 Code: 21184-3 Heart Rate 1: 60 bpm Height: 5'11" Code: 8302-2 Temperature: 36.4 (C) / 97.5 (F) Weight: 166 lbs Code: 55070-6 02/06/2011 Blood Pressure 1: 96/58 Code : 8480-6 01/20/2011 Blood Pressure 1: 112/78 Cod e: 8480-6 01/12/2011 Blood Pressure 1: 110/48 Code: 8480-6 He art Rate 1: 84 bpm 01/04/2011 Blood Pressure 1: 126/80 Code: 8480-6 Heart Rate 1: 76 bpm Temperature: 36.9 (C) / 98.4 (F) Weight: 168 lbs Code: 13627-8 02/14/2010 Blood Pressure 1: 134/82 Code: 8480-6 Heart Rate 1: 88 bpm Temperature: 36.6 (C) / 97.9 (F) 02/07/2010 Blood Pressure 1: 130/80 Code: 8480-6 BMI: 23.4 Code: 43933-2 Heart Rate 1: 84 bpm Height: 5'10" Code: 8302-2 Temperature: 36.4 (C) / 97.6 (F) Weight: 163 lbs Code: 24192-7 Functional Status No Functional Status data Reason [...] Diagnosis: Right humeral fracture[ICD10: S42.301A] Patricia DAVID [facility] [address] [place] [address] CPT-4: 88467 08/07/2022 ([id number]) OFFICE/OUTPATIENT VISIT EST Diagnosis: Atrial fibrillation and flutter[ICD10: I48.91] Diagnosis: Essential (primary) hypertension[ICD10: I10] Diagnosis: Stress[ICD10: F43.9] Diagnosis: Cough[ICD10: R05.9] Yvette DAVID [address] [address] CPT-4: 46171 08/02/20 22 ([id number]) OFFICE/OUTPATIENT VISIT EST Diagnosis: Atrial fibrillation and flutter[ICD10: I48.91] Yvette DAVID DO [address] [address] CPT- 4: 84380 06/26/2022 ([id number]) OFFICE/OUTPATIENT VISIT EST Diagnosis: Chronic atrial fibrillation[ICD10: I48.20] Diagnosis: Essential hypertension[ICD10: I10] Diagnosis: Skin cancer of arm[ICD10: C44.601] Diagnosis: Mild chronic obstructive pulmonary disease[ICD10: J44.9] Yvette DAVID [address] [address] CPT-4: 89545 05/22/2022 ([id number]) NURSE/OUTPATIENT VISIT EST Diagnosis: Atrial fibrillation and flutter[ICD10: I48.91] Diagnosis: Hypothyroidism[ICD10: E03.9] Diagnosis: Mixed hyperlipidemia[ICD10: E78.2] Diagnosis: Anemia, unspecified[ICD10: D64.9] Diagnosis: Essential (primary) hypertension[ICD10: I10] Diagnosis: Hyperglycemia, unspecified[ICD10: R73.9] Yvette DAVID [address] [address] CPT- 4: 54448 02/28/2022 ([id number]) OFFICE/OUTPATIENT VISIT EST Diagnosis: Atypical nevus of right forearm[ICD10: D22.61] Diagnosis: Unspecified atrial flutter[ICD10: I48.92] Diagnosis: Atrial fibrillation and flutter[ICD10: I48.91] Yvette DAVID DO [address] [address] CPT- 4: 12357 02/27/2022 ([id number]) OFFICE/OUTPATIENT VISIT EST Diagnosis: Anxiety[ICD10: F41.9] Yvette DAVID [address] [address] CPT-4: 42425 11/23/2021 ([id number]) OFFICE/OUTPATIENT VISIT EST Diagnosis: Anxiety[ICD10: F41.9] Diagnosis: Stress reaction[ICD10: F43.0] Yvette DAVID [address] [address] CPT-4: 47232 10/12/2021 ([id number]) OFFICE/OUTPATIENT VISIT EST Diagnosis: Contact with and (suspected) exposure to covid-19[ICD10: Z20.822] Diagnosis: Nasopharyngitis[ICD10: J00] Diagnosis: Acute foreign body of left ear canal, initial encounter[ICD10: T16.2XXA] Diagnosis: Acute foreign body of right ear canal[ICD10: T16.1XXA] Martina Jessica YVETTE DAVID [address] [address] CPT-4: 08827 08/09/2021 ([id number]) OFFICE/OUTPATIENT VISIT EST Diagnosis: Essential (primary) hypertension[ICD10: I10] Diagnosis: Hypothyroidism[ICD10: E03.9] Diagnosis: Paroxysmal atrial fibrillation[ICD10: I48.0] Diagnosis: Hyperglycemia, unspecified[ICD10: R73.9] Yvette DAVID [address] [address] CPT- 4: 89088 07/28/2021 ([id number]) NURSE/OUTPATIENT VISIT EST Diagnosis: Mixed hyperlipidemia[ICD10: E78.2] Diagnosis: Anemia, unspecified[ICD10: D64.9] Diagnosis: Essential (primary) hypertension[ICD10: I10] Diagnosis: Hypothyroidism, unspecified[ICD10: E03.9] Diagnosis: Hyperglycemia, unspecified[ICD10: R73.9] Yvette DAVID [address] [address] CPT- 4: 47105 07/20/2021 ([id number]) OFFICE/OUTPATIENT VISIT EST Diagnosis: Grieving[ICD10: F43.21] Diagnosis: Inflamed seborrheic keratosis[ICD10: L82.0] Yvette DAVID DO [address] [address] CPT- 4: 72358 05/12/2021 ([id number]) OFFICE/OUTPATIENT VISIT EST Diagnosis: Rhus dermatitis[ICD10: L25.5] Yvette DAVID [address] [address] CPT-4: 17444 03/08/2021 ([id number]) OFFICE/OUTPATIENT VISIT EST Diagnosis: Essential hypertension[ICD10: I10] Diagnosis: Chronic atrial fibrillation[ICD10: I48.20] Diagnosis: Mixed hyperlipidemia[ICD10: E78.2] Diagnosis: Hyperglycemia, unspecified[ICD10: R73.9] Diagnosis: Depression[ICD10: F32.9] Yvette LUNDY [address] [address] CPT-4: 24820 02/03/2021 ([id number]) NURSE/OUTPATIENT VISIT EST Diagnosis: Hyperglycemia, unspecified[ICD10: R73.9] Diagnosis: Mixed hyperlipidemia[ICD10: E78.2] Diagnosis: Essential (primary) hypertension[ICD10: I10] Diagnosis: Hypothyroidism, unspecified[ICD10: E03.9] Yvette DAVID DO [address] [address] CPT- 4: 63649 01/31/2021 ([id number]) OFFICE/OUTPATIENT VISIT EST Diagnosis: Vertigo[ICD10: R42] Diagnosis: Chronic atrial fibrillation[ICD10: I48.20] Diagnosis: Cerumen impaction[ICD10: H61.20] Diagnosis: Depression[ICD10: F32.9] Yvette CHAIREZ [address] [address] CPT-4: 86904 01/04/2021 ([id number]) NURSE/OUTPATIENT VISIT EST Diagnosis: Essential hypertension[ICD10: I10] Yvette DAVID DO [address] [address] CPT-4: 89146 10/05/2020 ([id number]) OFFICE/OUTPATIENT VISIT EST Diagnosis: Chronic atrial fibrillation[ICD10: I48.20] Diagnosis: Dizziness[ICD10: R42] Yvette DAVID DO [address] [address] CPT-4: 46886 09/20/2020 ([id number]) NURSE/OUTPATIENT VISIT EST Diagnosis: Dysplastic nevus of right lower extremity[ICD10: D23.71] Yvette DAVID DO [address] [address] CPT-4: 46929 05/28/2020 ([id number]) NURSE/OUTPATIENT VISIT EST Diagnosis: Essential (primary) hypertension[ICD10: I10] Diagnosis: Type 2 diabetes mellitus with hyperglycemia[ICD10: E11.65] Diagnosis: Anemia, unspecified[ICD10: D64.9] Diagnosis: Hypothyroidism, unspecified[ICD10: E03.9] Yvette DAVID DO [address] [address] CPT- 4: 28744 05/05/2020 ([id number]) OFFICE/OUTPATIENT VISIT EST Diagnosis: 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] Diagnosis: Paroxysmal atrial fibrillation[ICD10: I48.0] Yvette DAVID DO [address] [address] CPT- 4: 29618 02/11/2020 ([id number]) OFFICE/OUTPATIENT VISIT EST Diagnosis: Dermatitis[ICD10: L30.9] Diagnosis: 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] Diagnosis: Chronic pruritus[ICD10: L29.9] Yvette DAVID DO [address] [address] CPT-4: 96794 01/28/2020 ([id number]) OFFICE/OUTPATIENT VISIT EST Diagnosis: Diarrhea, unspecified[ICD10: R19.7] Diagnosis: Dizziness[ICD10: R42] Diagnosis: Generalized pruritus[ICD10: L29.9] Yvette COREA S. ORENDER DO [address] [address] CPT-4: 71495 01/05/2020 ([id number]) NURSE/OUTPATIENT VISIT EST Diagnosis: Renal insufficiency[ICD10: N28.9] Yvette Shahid S. ORENDER DO [address] [address] CPT-4: 75243 12/05/2019 ([id number]) NURSE/OUTPATIENT VISIT EST Diagnosis: Renal insufficiency[ICD10: N28.9] Diagnosis: Dehydration[ICD10: E86.0] Yvette STUART CristiGarrett ORE NDER DO [address] [address] CPT-4: 98646 11/05/2019 ([id number]) OFFICE/OUTPATIENT VISIT EST Diagnosis: Chronic atrial fibrillation[ICD10: I48.20] Diagnosis: Renal insufficiency[ICD10: N28.9] Diagnosis: Dizziness and giddiness[ICD10: R42] Yvette COLEMAN S. ORENDER DO [address] [address] CPT-4: 07378 10/29/2019 ([id number]) NURSE/OUTPATIENT VISIT EST Diagnosis: Hematuria, unspecified[ICD10: R31.9] Yvette MENA S. ORENDER DO [address] [address] CPT-4: 17031 10/23/2019 ([id number]) NURSE/OUTPATIENT VISIT EST Diagnosis: Encounter for general adult medical examination without abnormal findings[ICD10: Z00.00] Diagnosis: Essential (primary) hypertension[ICD10: I10] Diagnosis: Hypothyroidism, unspecified[ICD10: E03.9] Diagnosis: Mixed hyperlipidemia[ICD10: E78.2] Yvette COREA CristiGarrett ORENDER [address] [address] CPT-4: 57916 10/21/2019 ([id number]) OFFICE/OUTPATIENT VISIT EST Diagnosis: Cerumen impaction[ICD10: H61.20] Diagnosis: Dizziness[ICD10: R42] Diagnosis: Gastritis[ICD10: K29.70] Diagnosis: Dehydration[ICD10: E86.0] Natalee SULLIVAN [address] [address] CPT-4: 29418 10/20/2019 ([id number]) OFFICE/OUTPATIENT VISIT EST Diagnosis: Paroxysmal atrial fibrillation[ICD10: I48.0] Diagnosis: Essential hypertension[ICD10: I10] Yvette DAVID DO [address] [address] CPT-4: 22943 07/07/2019 ([id number]) OFFICE/OUTPATIENT VISIT EST Diagnosis: Essential (primary) hypertension[ICD10: I10] Yvette DAVID DO [address] [address] CPT- 4: 55740 05/01/2019 ([id number]) OFFICE/OUTPATIENT VISIT EST Diagnosis: Essential (primary) hypertension[ICD10: I10] Diagnosis: Localized edema[ICD10: R60.0] Yvette DAVID DO [address] [address] CPT-4: 34927 04/15/2019 ([id number]) NURSE/OUTPATIENT VISIT EST Diagnosis: Essential (primary) hypertension[ICD10: I10] Diagnosis: Hypothyroidism, unspecified[ICD10: E03.9] Diagnosis: Mixed hyperlipidemia[ICD10: E78.2] Yvette BUSTOSNDER [address] [address] CPT-4: 64361 04/04/2019 ([id number]) NURSE/OUTPATIENT VISIT EST Diagnosis: Essential (primary) hypertension[ICD10: I10] Diagnosis: Hyperglycemia, unspecified[ICD10: R73.9] Diagnosis: Hypothyroidism, unspecified[ICD10: E03.9] Diagnosis: Mixed hyperlipidemia[ICD10: E78.2] Yvette DAVID [address] [address] CPT-4: 13425 10/07/2018 ([id number]) OFFICE/OUTPATIENT VISIT EST Diagnosis: Essential (primary) hypertension[ICD10: I10] Diagnosis: Presence of right artificial knee joint[ICD10: Z96.651] Diagnosis: Unspecified hearing loss, left ear[ICD10: H91.92] Yvette DAVID [address] [address] CPT- 4: 06493 08/08/2018 OFFICE/OUTPATIENT VISIT EST Diagnosis: Impacted cerumen, bilateral[ICD10: H61.23] Diagnosis: Vertigo of central origin, bilateral[ICD10: H81.43] Diagnosis: Essential (primary) hypertension[ICD10: I10] Diagnosis: Paroxysmal atrial fibrillation[ICD10: I48.0] Diagnosis: Dizziness and giddiness[ICD10: R42] Diagnosis: Sudden idiopathic hearing loss, left ear[ICD10: H91.22] Yvette DAVID [address] [address] CPT-4: 90570 06/25/2018 ([id number]) OFFICE/OUTPATIENT VISIT EST Diagnosis: Essential (primary) hypertension[ICD10: I10] Diagnosis: Vertigo of central origin, bilateral[ICD10: H81.43] Yvette DAVID [address] [address] CPT-4: 23869 05/10/2018 ([id number]) OFFICE/OUTPATIENT VISIT EST Diagnosis: Allergic rhinitis due to pollen[ICD10: J30.1] Diagnosis: Dizziness and giddiness[ICD10: R42] Diagnosis: Vertigo of central origin, bilateral[ICD10: H81.43] Diagnosis: Essential (primary) hypertension[ICD10: I10] Yvette DAVID DO [address] [address] CPT- 4: 11431 05/03/2018 OFFICE/OUTPATIENT VISIT EST Diagnosis: Hypothyroidism, unspecified[ICD10: E03.9] Diagnosis: Mixed hyperlipidemia[ICD10: E78.2] Diagnosis: Essential (primary) hypertension[ICD10: I10] Diagnosis: Paroxysmal atrial fibrillation[ICD10: I48.0] Diagnosis: Obstructive sleep apnea (adult) (pediatric)[ICD10: G47.33] Diagnosis: Unilateral primary osteoarthritis, right knee[ICD10: M17.11] Yvette DAVID DO [address] [address] CPT-4: 53476 04/22/2018 ([id number]) OFFICE/OUTPATIENT VISIT EST Diagnosis: Zoster without complications[ICD10: B02.9] Natalee DAVID DO [address] [address] CPT- 4: 02283 03/05/2018 ([id number]) NURSE/OUTPATIENT VISIT EST Diagnosis: Hypothyroidism, unspecified[ICD10: E03.9] Diagnosis: Mixed hyperlipidemia[ICD10: E78.2] Diagnosis: Essential (primary) hypertension[ICD10: I10] Diagnosis: Paroxysmal atrial fibrillation[ICD10: I48.0] Yvette DAVID DO [address] [address] CPT- 4: 04446 02/13/2018 ([id number]) OFFICE/OUTPATIENT VISIT EST Diagnosis: Obstructive sleep apnea (adult) (pediatric)[ICD10: G47.33] Diagnosis: Essential (primary) hypertension[ICD10: I10] Diagnosis: Paroxysmal atrial fibrillation[ICD10: I48.0] Yvette DAVID DO [address] [address] CPT- 4: 83682 10/18/2017 ([id number]) OFFICE/OUTPATIENT VISIT EST Diagnosis: Hypothyroidism, unspecified[ICD10: E03.9] Diagnosis: Other vitamin B12 deficiency anemias[ICD10: D51.8] Diagnosis: Essential (primary) hypertension[ICD10: I10] Diagnosis: Mixed hyperlipidemia[ICD10: E78.2] Yvette SIMMS NAHOMY DAVID DO [facility] [address] [place] [address] CPT-4: 46664 10/15/2017 OFFICE/OUTPATIENT VISIT EST Diagnosis: Impacted cerumen, bilateral[ICD10: H61.23] Diagnosis: Acute sinusitis, unspecified[ICD10: J01.90] Natalee DAVID [employer] [address] [address] CPT- 4: 16871 07/24/2017 ([id number]) OFFICE/OUTPATIENT VISIT EST Diagnosis: Obstructive sleep apnea (adult) (pediatric)[ICD10: G47.33] Diagnosis: Tachycardia, unspecified[ICD10: R00.0] Yvette QUINONES Michael TAYLOR[address] [address] CPT-4: 86976 06/14/2017 ([id number]) OFFICE/OUTPATIENT VISIT EST Diagnosis: Zoster without complications[ICD10: B02.9] Demi Rocha YVETTE DAVID [address] [address] CPT- 4: 13122 06/01/2017 ([id number]) OFFICE/OUTPATIENT VISIT EST Diagnosis: Essential (primary) hypertension[ICD10: I10] Diagnosis: Tachycardia, unspecified[ICD10: R00.0] Diagnosis: Other vitamin B12 deficiency anemias[ICD10: D51.8] Yvettelynnette David YVETTE Michael DAVID [facility] [address] [place] [address] CPT- 4: 44534 03/30/2017 ([id number]) OFFICE/OUTPATIENT VISIT EST Diagnosis: Essential (primary) hypertension[ICD10: I10] Diagnosis: Other fatigue[ICD10: R53.83] Diagnosis: Other chest pain[ICD10: R07.89] Diagnosis: Snoring[ICD10: R06.83] Yvette Vega [address] [address] CPT-4: 23895 01/17/2017 ([id number]) OFFICE/OUTPATIENT VISIT EST Diagnosis: Encounter for general adult medical examination without abnormal findings[ICD10: Z00.00] Diagnosis: Hypothyroidism, unspecified[ICD10: E03.9] Diagnosis: Essential (primary) hypertension[ICD10: I10] Diagnosis: Mixed hyperlipidemia[ICD10: E78.2] Diagnosis: Other residential (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[ICD10: Z79.899] Diagnosis: Hyperglycemia, unspecified[ICD10: R73.9] Yvette DAVID [address] [address] CPT- 4: 11608 12/11/2016 ([id number]) OFFICE/OUTPATIENT VISIT EST Diagnosis: URI, ACUTE[ICD10: J06.9] Diagnosis: Cough[ICD10: R05] Yvette MERCADOLINE CristiGarrett JOANN [address] [address] CPT-4: 76370 11/02/19 ([id number]) OFFICE/OUTPATIENT VISIT EST Diagnosis: Acute upper respiratory infection, unspecified[ICD10: J06.9] Elidia MERCADOLINE CristiGarrett JOANN [address] [address] CPT-4: 94109 10/24/2016 ([id number]) OFFICE/OUTPATIENT VISIT EST Diagnosis: Nausea[ICD10: R11.0] Diagnosis: Diarrhea, unspecified[ICD10: R19.7] Diagnosis: Dizziness and giddiness[ICD10: R42] Elidia DILLONBRUNA COLEMAN Michael DAVID [address] [address] CPT-4: 81073 02/07/2016 ([id number]) OFFICE/OUTPATIENT VISIT EST Diagnosis: HYPOTHYROIDISM[ICD9: 244.9] Diagnosis: HYPERLIPIDEMIA NEC/NOS[ICD9: 272.4] Diagnosis: ANEMIA NOS[ICD9: 285.9] Diagnosis: HYPERTENSION[ICD9: 401.9] Diagnosis: Neuropathy[ICD9: 355.9] Yvette [facility] [address] [place] [address] CPT-4: 11732 05/27/2015 ([id number]) OFFICE/OUTPATIENT VISIT EST Diagnosis: Neuropathy[ICD9: 355.9] Diagnosis: Foot pain[ICD9: 729.5] Diagnosis: HYPOTHYROIDISM[ICD9: 244.9] Diagnosis: PNEUMOCOCCAL VACCINE[ICD10: Z23] Yvette Rodriguez [facility] [address] [place] [address] CPT-4: 07112 05/26/2015 ([id number]) OFFICE/OUTPATIENT VISIT EST Diagnosis: Hematochezia[ICD9: 578.1] Yvette Rodriguez ORE NDER DO [address] [address] CPT-4: 08803 02/19/2015 ([id number]) OFFICE/OUTPATIENT VISIT EST Diagnosis: Hematochezia[ICD9: 578.1] Yvette Rodriguez [facility] [address] [place] [address] CPT-4: 20875 01/20/2015 ([id number]) OFFICE/OUTPATIENT VISIT EST Diagnosis: Hematochezia[ICD9: 578.1] Yvette Rodriguez ORE NDER DO [address] [address] CPT-4: 98726 12/15/2014 ([id number]) OFFICE/OUTPATIENT VISIT EST Diagnosis: TINEA PEDIS[ICD9: 110.4] Diagnosis: Ceruminosis[ICD9: 380.4] Earline Alexandra YVETTE BSUTOSN MIHAELA DO [address] [address] CPT-4: 44302 11/30/2014 ([id number]) OFFICE/OUTPATIENT VISIT EST Diagnosis: HYPERLIPIDEMIA NEC/NOS[ICD9: 272.4] Yvette WAYNE JARED Michael [facility]ENDER DO [address] [address] CPT-4: 77905 11/26/2014 ([id number]) OFFICE/OUTPATIENT VISIT EST Diagnosis: HYPOTHYROIDISM[ICD9: 244.9] Diagnosis: HYPERLIPIDEMIA NEC/NOS[ICD9: 272.4] Diagnosis: ANEMIA NOS[ICD9: 285.9] Diagnosis: HYPERTENSION[ICD9: 401.9] Yvtete SULLIVAN [address] [address] CPT-4: 29848 08/14/2014 ([id number]) OFFICE/OUTPATIENT VISIT EST Diagnosis: GERD[ICD9: 530.81] Diagnosis: COUGH[ICD10: R05] Yvette DAVID [address] [address] CPT-4: 65992 07/23/20 14 OFFICE/OUTPATIENT VISIT EST Diagnosis: Heel pain[ICD9: 729.5] Earline Alexandra YVETTE Vega [address] [address] CPT-4: 18591 03/09/2014 ([id number]) OFFICE/OUTPATIENT VISIT EST Diagnosis: HYPOTHYROIDISM[ICD9: 244.9] Diagnosis: HYPERLIPIDEMIA NEC/NOS[ICD9: 272.4] Diagnosis: Right medial knee pain[ICD9: 719.46] Yvette Kuncarlos eduardomaye DAVID [address] [address] CPT-4: 06482 02/05/2014 ([id number]) OFFICE/OUTPATIENT VISIT EST Diagnosis: HYPOTHYROIDISM[ICD9: 244.9] Diagnosis: HYPERLIPIDEMIA NEC/NOS[ICD9: 272.4] Diagnosis: HYPERTENSION[ICD9: 401.9] Diagnosis: ANEMIA NOS[ICD9: 285.9] Diagnosis: MALAISE AND FATIGUE[ICD9: 780.79] Yvette David DILAN Zehra DAVID DO [address] [address] CPT-4: 10207 02/04/2014 OFFICE/OUTPATIENT VISIT EST Diagnosis: Right medial knee pain[ICD9: 719.46] Diagnosis: Degeneration, intervertebral disc, lumbar[ICD9: 722.52] Diagnosis: Low back pain[ICD9: 724.2] Earline Alexandra Rodriguez LUISITO STEFAN [address] [address] CPT-4: 20187 05/12/2013 ([id number]) OFFICE/OUTPATIENT VISIT EST Diagnosis: Lumbar degenerative disc disease[ICD9: 722.52] Diagnosis: Bulging lumbar disc[ICD9: 722.10] Yvette Rodriguez JOANN BORJA [address] [address] CPT-4: 07220 04/07/2013 ([id number]) OFFICE/OUTPATIENT VISIT EST Diagnosis: PAIN, LOWER BACK[ICD9: 724.2] Diagnosis: SPASM OF MUSCLE[ICD9: 728.85] Diagnosis: Lumbar degenerative disc disease[ICD9: 722.52] Yvette Rodriguez JOANN [address] [address] CPT- 4: 95094 03/31/2013 ([id number]) OFFICE/OUTPATIENT VISIT EST Diagnosis: Greater trochanteric bursitis[ICD9: 726.5] Diagnosis: DYSPEPSIA[ICD9: 536.8] Yvette Rodriguez WARNER Vega [address] [address] CPT-4: 38636 10/09/2012 OFFICE/OUTPATIENT VISIT EST Diagnosis: CYSTOCELE NOS[ICD9: 618.01] Diagnosis: GERD[ICD9: 530.81] Diagnosis: VAGINITIS[ICD9: 623.5] Yvette Rodriguez WARNER Vega DO [employer] [address] [place] [address] CPT-4: 07127 03/28/2012 ([id number]) OFFICE/OUTPATIENT VISIT EST Diagnosis: HYPOTHYROIDISM[ICD9: 244.9] Diagnosis: HYPERLIPIDEMIA NEC/NOS[ICD9: 272.4] Diagnosis: HYPERTENSION[ICD9: 401.9] Diagnosis: ANEMIA NOS[ICD9: 285.9] Yvette BUSTOSND [facility] DO [address] [address] CPT-4: 85345 03/18/2012 OFFICE/OUTPATIENT VISIT EST Diagnosis: CERUMEN IMPACTION[ICD9: 380.4] Diagnosis: OTALGIA[ICD9: 388.70] Reyna BUSTOSNDMAYE DO C [address] [place] [address] CPT-4: 69208 2012 OFFICE/OUTPATIENT VISIT EST Diagnosis: COUGH[ICD9: 786.2] Diagnosis: Cystocele[ICD9: 618.01] Diagnosis: VAGINITIS[ICD9: 623.5] Diagnosis: ROUTINE GYNE EXAM[ICD9: V72.31] Yvette DAVID DO [address] [address] CPT-4: 56533 09/27/2011 SPECIMEN HANDLING Diagnosis: [ICD9: ] Diagnosis: [ICD9: ] Diagnosis: [ICD9: ] Diagnosis: [ICD9: ] Yvette DAVID DO [address] [address] CPT-4: 08459 09/27/2011 OFFICE/OUTPATIENT VISIT EST Diagnosis: PHARYNGITIS, ACUTE[ICD9: 462] Diagnosis: URI, ACUTE[ICD9: 465.9] Yvette TAYLOR [facility] DO [address] [address] CPT-4: 04801 09/13/2011 OFFICE/OUTPATIENT VISIT EST Diagnosis: PHARYNGITIS, ACUTE[ICD9: 462] Diagnosis: COUGH[ICD9: 786.2] Yvette TAYLORER DO [address] [address] CPT-4: 18008 08/07/20 11 ([id number]) OFFICE/OUTPATIENT VISIT EST Yvette DILLONMelinda QUINONES Michael BUSTOSNDER DO [address] [address] CPT-4: 46442 01/04/2011 ([id number]) OFFICE/OUTPATIENT VISIT, [facility] [address] [place] [address] CPT-4: 41542 02/14/2010 ([id number]) OFFICE/OUTPATIENT VISIT, [facility] [address] [place] [address] CPT-4: 46896 02/07/2010 Plan of Care Planned Activity Notes [...] S22.31XA 08/07/2022 Patient Education: tramadol- [employer] Coupon [id number] Completed 08/07/2022 Visit Diagnosis Plan: Stress Recommendations: [...] in AM and add singulair at night [id number] ICD-9 : 786.2 ICD-10 : R05.9 08/02/2022 Appointment: Yvette David WPtel: [address] [place], [place] [id number] US FOLLOW UP 08/02/2022 Patient Education: Singulair- [employer] Coupon [phone] [email or web address] Completed 08/02/2022 Visit Diagnosis Plan: Atrial fibrillation and flutter Discussion: Increase metoprolol to 50mg po BID Increase amiodarone to 200mg po BID Fwup 1month Defers flu shot ICD-9 : 427.31 ICD-10 : I48.91 06/26/2022 Appointment: Yvette David WPtel: [facility]8 [phone] US FOLLOW UP 06/26/2022 Patient Education: metoprolol succinate- [employer] Co upon [id number] https://www.CloudAccess/Factabase/resources/getResource/61/[email or web address] Completed 06/26/2022 Referral: Lino Davila [address] [place] [id number] [place], [place] [id number] [place] Referral Completed 05/23/2022 Visit Diagnosis Plan: [...] J44.9 05/22/2022 Appointment: Yvette David WPtel: [phone] [phone] US FOLLOW UP 05/22/2022 Referral: Anuj Eng WPtel: [facility] [place] Referral Appointment Confirmed 03/08/2022 Appointment: Yvette David WPtel: [address] [place], [place] [phone] US LAB 02/28/2022 Visit Diagnosis Plan: Unspecified [...] : I48.91 02/27/2022 Appointment: Yvette David WPtel: [address] [place], [place] [phone] [place] ACUTE ILLNESS 02/27/2022 Care Plan: Referral Order SNOMED-CT : 30 [id number] Pending 02/27/2022 Care Plan: Referral Order SNOMED-CT : 30 [id number] Pending 02/27/2022 Appointment: Yvette David WPtel: [address] [phone] US CANCELED 12/06/2021 Visit Diagnosis Plan: Anxiety Discussion: Improving wi th effexor--wants to keep dose the same ICD-9 : 300.00 ICD-10 : F41.9 11/23/2021 Appointment: Yvette David WPtel: [phone] [phone] FOLLOW UP 11/23/2021 Visit Diagnosis Plan: Anxiety Discussion: Restart effe xor XR at 37.5mg daily Stress Reducers Fwup 6 weeks No tremors noted today ICD-9 : 300.00 ICD-10 : F41.9 10/12/2021 Appointment: Yvette David WPtel: [phone] [phone] ACUTE ILLNESS 10/12/2021 Visit Plan: Supportive [...] 08/09/2021 Appointment: Martina Lopez WPtel: [address] [phone] ACUTE ILLNESS 08/09/2021 Patient Education: Patient [...] : R73.9 07/28/2021 Appointment: Yvette David WPtel: [address] [place], [place] [phone] US FOLLOW UP 07/28/2021 Appointment: Yvette David WPtel: [address] [place], [place] [phone] US LAB 07/20/2021 Visit Diagnosis Plan: Grieving Discussion: Restart Eff exor XR 37.5mg po q AM ICD-9 : 309.0 ICD-10 : F43.21 05/12/2021 Visit Diagnosis Plan: Inflamed seborrheic keratosis Di scussion: Cryotherapy as above ICD-9 : 702.11 ICD-10 : L82.0 05/12/2021 Appointment: Yvette David WPtel: [address] [place], [place] [phone] US FOLLOW UP 05/12/2021 Appointment: Yvette David WPtel: [address] [place], [place] [phone] US assisted patient with opening her eye drops for cataract liane an (km) CANCELED 03/22/2021 Visit Diagnosis Plan: Rhus dermatitis Discussion: Marielena log 40mg IM x1 Can continue TAC ICD-9 : 692.6 ICD-10 : L25.5 03/08/2021 Appointment: Yvette David WPtel: [address] [place], [place] [phone] US FOLLOW UP 03/08/2021 Visit Diagnosis Plan: [...] : I48.20 02/03/2021 Appointment: Yvette David WPtel: [address] [place], [place] [phone] FOLLOW UP 02/03/2021 Appointment: Yvette David WPtel: [address] [place], [place] [phone] US LAB 01/31/2021 Visit Diagnosis Plan: Chronic [...] : H61.20 01/04/2021 Appointment: Yvette David WPtel: [address] [place], [place] [phone] ACUTE ILLNESS 01/04/2021 Appointment: Yvette David WPtel: [address] [place], [place] [phone] BP CHECK 10/05/2020 Visit Diagnosis Plan: Chronic atrial fibrillation Disc ussion: Due to symptomatic bradycardia will decrease metoprolol ER to 25mg po BID Bring by BP and pulse readings in 2 weeks ICD-9 : 427.31 ICD-10 : I48.20 09/20/2020 Appointment: Yvette David WPtel: [address] [place], [place] [phone] ACUTE ILLNESS 09/20/2020 Appointment: Yvette David WPtel: [address] [place], [place] [phone] NURSE SERVICES 05/28/2020 Visit Diagnosis Plan: Dysplastic nevus of right lower extremity Discussion: Removal as above and sent to pathology Return in 10 days for suture removal ICD-9 : 216.7 ICD-10 : D23.71 05/19/2020 Appointment: Yvette David WPtel: [address] [place], [place] [phone] FOLLOW UP 05/19/2020 Visit Diagnosis Plan: Diarrhea [...] : I48.20 05/11/2020 Appointment: Yvette David WPtel: [address] [place], [place] [phone] Annual Well Visit 05/11/2020 Appointment: Yvette David WPtel: [address] [place] [address] US LAB 05/05/2020 Visit Diagnosis Plan: Chronic [...] : I48.0 02/11/2020 Appointment: Yvette David WPtel: [address] [place], [place] [phone] US FOLLOW UP 02/11/2020 Visit Diagnosis Plan: [...] : L29.8 01/28/2020 Appointment: Yvette David WPtel: [address] [place], [place] [address] ACUTE ILLNESS 01/28/2020 Patient Education: hydroxyzine HCl- OptimizeRX Coupon [id number] https://www.Factabase.Track the Bet/sampleInstantMarketing/resources/getResource/61/[email or web address]-8he6-6h Completed 01/28/2020 Visit Diagnosis Plan: Diarrhea, unspecified [...] : R42 01/05/2020 Appointment: Yvette David WPtel: [address] [place], [place] [phone] ACUTE ILLNESS 01/05/2020 Appointment: Yvette David WPtel: [address] [place], [place] [phone] US LAB 12/05/2019 Appointment: Yvette David WPtel: [address] [place], [place] [phone] US LAB 11/05/2019 Visit Diagnosis Plan: Dizziness [...] N28.9 10/29/2019 Appointment: Yvette David WPtel: [address] [phone] FOLLOW UP 10/29/2019 Appointment: Yvette David WPtel: [address] [phone] US UA 10/23/2019 Appointment: Yvette David WPtel: [address] [phone] US LAB 10/21/2019 Visit Diagnosis Plan: [...] ICD-10 : H61.20 10/20/2019 Appointment: Natalee Gray [address] [place] [address] ACUTE ILLNESS 10/20/2019 Patient Education: meclizine- [employer] Coupon [id number] https://www.Factabase.Track the Bet/samplemd/resources/getResource/61/[email or web address]-13ub-dm Completed 10/20/2019 Appointment: Yvette David WPtel: [phone] US Canceled, Said patient was feeling [...] : I48.0 07/07/2019 Appointment: Yvette David WPtel: [address] [place], [place] [phone] US FOLLOW UP 07/07/2019 Visit Diagnosis Plan: Essential (primary) hypertension Discussion: Increase HCTZ to 25mg daily Call in 1 week with BP readings ICD-9 : 401.9 ICD-10 : I10 05/01/2019 Appointment: Yvette David WPtel: [address] [place], [place] [phone] US FOLLOW UP 05/01/2019 Visit Diagnosis Plan: Essential (primary) hypertension Discussion: Change metoprolol to 50mg po q AM and 100mg po q PM Add HCTZ 12.5mg po q AM Monitor home BP and pulse Recheck 2 weeks Start Cardiac Rehab or Wellness ICD-9 : 401.1 ICD-10 : I10 04/15/2019 Appointment: Yvette Davidtel: [address] [place], [place] [phone] US FOLLOW UP 04/15/2019 Patient Education: hydrochlorothiazide- OptimizeRX Cou [facility] [id number] https://www.Factabase.Track the Bet/samplemd/resources/getResource/61/[email or web address]-493h-os Completed 04/15/2019 Appointment: Yvette David WPtel: [facility]3 [phone] US LAB 04/04/2019 Care Plan: US EXAM CHEST US of left breast LOINC : 79207-7 Pending 03/17/2019 Visit Diagnosis Plan: Hypothyroidism, unspecified Disc ussion: Stable ICD-9 : 244.9 ICD-10 : E03.9 11/26/2018 Visit Diagnosis Plan: Paroxysmal atrial fibrillation D iscussion: Stable ICD-9 : 427.31 ICD-10 : I48.0 11/26/2018 Visit Diagnosis Plan: [facility] without abnormal findings Discussion: Mediterranean diet Combinati on of cardio and weight bearing exercise Recommend Shingrix Lab and fwup in March ICD-9 : V70.9 ICD-10 : Z00.00 11/26/2018 Visit Diagnosis Plan: Essential (primary) hypertension Discussion: Stable ICD-9 : 401.1 ICD-10 : I10 11/26/2018 Appointment: Yvette David WPtel: [address] [place], [place] [phone] Annual Well Visit 11/26/2018 Appointment: Yvette David WPtel: [address] [place] [phone] US LAB 10/07/2018 Visit Diagnosis Plan: Presence [...] : H91.92 08/08/2018 Appointment: Yvette David WPtel: [address] [place], [place] [phone] US FOLLOW UP 08/08/2018 Appointment: Natalee Gray [address] CANCELED 07/18/2018 Visit Diagnosis Plan: Sudden [...] I10 06/25/2018 Appointment: Yvette David WPtel: [facility] [phone] [facility] Follow Up 06/25/2018 Patient Education: Patient Medication Summary Completed 06/25/2018 Appointment: Yvette David WPtel: [facility]6 [phone] BP CHECK 05/20/2018 Patient Education: Patient [...] : I10 05/10/2018 Appointment: Yvette David WPtel: [facility]6 [phone] FOLLOW UP 05/10/2018 Patient Education: Patient [...] I10 05/03/2018 Appointment: Yvette David WPtel: [phone] [phone] ACUTE ILLNESS 05/03/2018 Patient Education: Patient [...] E03.9 04/22/2018 Appointment: Yvette David WPtel: [address] [phone] FOLLOW UP 04/22/2018 Patient Education: Patient [...] B02.9 03/05/2018 Appointment: [facility]alee Gray 504 [facility] ACUTE ILLNESS 03/05/2018 Patient Education: Patient Medication [...] : H61.23 02/19/2018 Appointment: Natalee Gray 504 [facility]66[facility] ACUTE ILLNESS 02/19/2018 Patient Education: Patient Medication Summary Completed 02/19/2018 Appointment: Yvette David WPtel: [address] [place], [place] [phone] US LAB 02/13/2018 Patient Education: Patient Medication [...] G47.33 10/18/2017 Appointment: Yvette David WPtel: [address] [phone] US FOLLOW UP 10/18/2017 Patient Education: Patient Medication Summary Completed 10/18/2017 Appointment: Yvette David WPtel: [address] [phone] US LAB 10/15/2017 Patient Education: Patient [...] ICD-10 : H61.23 07/24/2017 Appointment: Natalee Gray [address] [place], [place] [id number] ACUTE ILLNESS 07/24/2017 Patient Education: Patient Medication Summary Completed 07/24/2017 Referral: Jey Kaye WPtel: [address] Referral Initiated 07/05/2017 Patient Education: Patient [...] R00.0 06/14/2017 Appointment: Yvette David WPtel: [address] [phone] FOLLOW UP 06/14/2017 Patient Education: Patient Medication Summary Completed 06/14/2017 Care Plan: Referral Order SNOMED-CT : 30 [id number] Pending 06/14/2017 Visit Plan: ERx for Valtrex, system won' t allow ERx for Prednisone so it is called 10mg 2 po bid x 3 days then 1 po bid x 3 days then 1 po daily x 3 days then 1/2 po daily x 3 days then d/c She declines gabapentin or pain meds Anticipatory guidance discussed. 06/01/2017 Appointment: Demi Rocha WPtel: [phone] [facility] ACUTE ILLNESS 06/01/2017 Patient Education: Patient Medication [...] : D51.8 03/30/2017 Appointment: Yvette David WPtel: [address] [place], [place] [phone] 03/29 lm ~sl FOLLOW UP 03/30/2017 Patient [...] : R53.83 01/17/2017 Appointment: Yvette David WPtel: [facility]5 [phone] 01/16 lm`sl FOLLOW UP 01/17/2017 Patient [...] G62.9 12/18/2016 Visit Diagnosis Plan: [facility] without abnormal findings Discussion: Increase activity and contin ue healthy eating Continune using urinary incontinence pads at night for nocturia Reviewed labs ICD-9 : V70.9 ICD-10 : Z00.00 12/18/2016 Appointment: Yvette David WPtel: [address] [place], [place] [phone] 11/13 confirmed ~ Annual Well Visit 12/18/2016 Patient Education: Patient Medication Summary Completed 12/18/2016 Appointment: Yvette David WPtel: [address] [place], [place] [phone] LAB 12/11/2016 Patient Education: Patient Medication Summary [...] : R05 11/02/2016 Appointment: Yvette David WPtel: [address] [place], [place] [phone] FOLLOW UP 11/02/2016 Appointment: Yvette David WPtel: [facility]5 [phone] US CANCELED 11/02/2016 Patient Education: Patient Medication Summary Completed 11/02/2016 Visit Diagnosis Plan: Acute upper respiratory infectio n, unspecified Discussion: Rx as above Discussed OTC meds and supportive care Notify if not improving so regimen can be changed before her upcoming trip in 2 weeks ICD-9 : 465.9 ICD-10 : J06.9 10/24/2016 Appointment: Elidia Calix [address] [place], [place] [id number] ACUTE ILLNESS 10/24/2016 Patient Education: Patient Medication Summary Completed 10/24/2016 Patient Education: Patient Medication Summary Completed 06/26/2016 Visit Plan: Office dip wnl/BP wnl Does s eem likely to be viral GI illness Supportive care with rxs as above Soft and bland diet Will need bloodwork if not improving 02/07/2016 Appointment: Elidia Calix [address] [place], [place] [id number] ACUTE ILLNESS 02/07/2016 Patient Education: Patient Medication Summary Completed 02/07/2016 Patient Education: Patient Medication Summary Completed 07/01/2015 Appointment: Yvette David WPtel: [address] [place], [place] [phone] US LAB 05/27/2015 Patient Education: Patient Medication Summary Completed 05/27/2015 Visit Plan: Trial of Gralise 300mg at be dtide with 4 oz tonic water Sharron's solution soaks to feet Check TSH, Free T4, B12, CMP, HbA1C now Call in 2weeks 05/26/2015 Appointment: Yvette David WPtel: [address] [place], [place] [phone] 05/25/2015 confirmed w patient ACUTE ILLNESS 10/2014 Patient Education: Patient Medication Summary Completed 05/26/2015 Appointment: Yvette David WPtel: [facility]5 [phone] Stool lab 02/19/2015 Patient Education: Patient Medication Summary Completed 02/19/2015 Appointment: Yvette David WPtel: [phone] [phone] [facility] lab 01/20/2015 Patient Education: Patient Medication Summary Completed 01/20/2015 Appointment: Yvette David WPtel: [address] [place], [place] [phone] US LAB 12/15/2014 Patient Education: Patient Medication Summary Completed 12/15/2014 Appointment: Earline Morris WPtel: [address] [place], [place] [phone] ACUTE ILLNESS 11/30/2014 Patient Education: Patient Medication Summary Completed 11/30/2014 Appointment: Yvette David WPtel: [address] [place], [place] [phone] LAB 11/26/2014 Patient Education: Patient Medication Summary Completed 11/26/2014 Appointment: Yvette David WPtel: [address] [place], [place] [phone] LAB 08/14/2014 Patient Education: Patient Medication Summary Completed 08/14/2014 Visit Plan: Defers bone density Proceed with colonoscopy Change omeprazole to protonix Due for fasting lab next month 07/23/2014 Appointment: Yvette David WPtel: [address] [place], [place] [phone] ACUTE ILLNESS 07/23/2014 Patient Education: Patient Medication Summary Completed 07/23/2014 Patient Education: Patient Medication Summary Completed 06/05/2014 Appointment: Earline Morris WPtel: [address] [place], [place] [phone] FOLLOW UP 03/09/2014 Patient Education: Patient Medication Summary Completed 03/09/2014 Appointment: Yvette David WPtel: [address] [place], [place] [phone] ACUTE ILLNESS 02/05/2014 Patient Education: Patient Medication Summary Completed 02/05/2014 Appointment: Yvette David WPtel: [address] [place], [place] [phone] [facility] 02/04/2014 Patient Education: Patient Medication Summary Completed 02/04/2014 Appointment: Earline Morris WPtel: [address] [place], [place] [phone] ACUTE ILLNESS 05/12/2013 Patient Education: Patient Medication Summary Completed 05/12/2013 Visit Plan: MRI results discussed Discus sed epidural injections SI joint injection as above Continue Celebrex 200mg daily 04/07/2013 Appointment: Yvette David WPtel: [address] [place], [place] [phone] 04/04 left message FOLLOW UP 04/07/2013 Patient Education: Patient Medication Summary Completed 04/07/2013 Visit Plan: Restart PT and epidural--may need updated MRI of L/S spine Tylenol prn Celebrex 200mg daily 03/31/2013 Appointment: Yvette David WPtel: [address] [place], [place] [address] ACUTE ILLNESS 03/31/2013 Patient Education: Patient Medication Summary Completed 03/31/2013 Visit Plan: Injection to hip as above Pt will take Vimovo 500/20mg po daily for next week Call in 1wk on both hip and stomach Discussed that likely has arthritis in hip as well 10/09/2012 Appointment: Yvette David WPtel: [address] [place], [place] [phone] 10/08 Left message ACUTE ILLNESS 10/09/2012 Patient Education: Patient Medication Summary Completed 10/09/2012 Visit Plan: See urology--Dr. Hutchinson for cystocele Start Premarin vaginal Cream 1/2 gm vaginally twice weekly then repeat PAP in 3mos Continue nexium for 4 more weeks then start Zantac daily--notify if cough returns 03/28/2012 Appointment: Yvette Davidl: [phone] [phone] PAP 03/28/2012 Patient Education: Patient Medication Summary Completed 03/28/2012 Appointment: Yvette David WPtel: [address] [place], [place] [phone] LAB 03/18/2012 Patient Education: Patient Medication Summary Completed 03/18/2012 Appointment: Reyna Colón WPtel: [address] [place], [place] [phone] OFFICE SURGERY 2012 Patient Education: Patient Medication Summary Completed 2012 Visit Plan: Pap done Kegel exercises--de fers meds or surgery eval at this time Mammo due in January [place] symbicort 09/27/2011 Appointment: Yvette David WPtel: [address] [place], [place] [phone] FOLLOW UP 09/27/2011 Patient Education: Patient Medication Summary Completed 09/27/2011 Visit Plan: Symbicort 160/4.5 2 p BID 09/13/2011 Appointment: Yvette David WPtel: [address] [place], [place] [phone] ACUTE ILLNESS 09/13/2011 Patient Education: Patient Medication Summary Completed 09/13/2011 Visit Plan: Cefdinir and medrol dose pac k. Discussed if no improvement by Sunday will obtain chest x-ray and CBC with mycoplasma. 08/07/2011 Appointment: Reyna Colón WPtel: [address] [place], [place] [phone] ACUTE ILLNESS 08/07/2011 Patient Education: Patient Medication Summary Completed 08/07/2011 Appointment: Yvette David WPtel: [address] [place], [place] [phone] 07/13/2011 Patient Education: Patient Medication Summary Completed 07/13/2011 Appointment: Yvette David WPtel: [address] [place], [place] [phone] LAB 03/13/2011 Patient Education: Patient Medication Summary Completed 03/13/2011 Appointment: Yvette David WPtel: [address] [place], [place] [phone] BP CHECK 02/06/2011 Patient Education: Patient Medication Summary Completed 02/06/2011 Appointment: Yvette David WPtel: [address] [place], [place] [phone] BP CHECK 01/20/2011 Patient Education: Patient Medication Summary Completed 01/20/2011 Appointment: Yvette David WPtel: [address] [place], [place] [phone] BP CHECK 01/12/2011 Patient Education: Patient Medication Summary Completed 01/12/2011 Visit Plan: Increase Synthroid to 75mcg po daily Increase fish oil to BID Start daily Toprol XL 12.5mg BP check in 1wk TSH and Free T4 in 2mos. 01/04/2011 Appointment: Yvette David WPtel: [address] [place], [place] [phone] FOLLOW UP 01/04/2011 Patient Education: Patient Medication Summary Completed 01/04/2011 Appointment: Yvette David WPtel: [address] [place], [place] [phone] LAB 12/16/2010 Patient Education: Patient Medication Summary Completed 12/16/2010 Visit Plan: Start PT May need MRI 02/14/2010 Appointment: Yvette David WPtel: [address] [place], [place] [phone] OFFICE SURGERY 02/14/2010 Patient Education: Patient Medication [...] (steroid). 02/07/2010 Appointment: Reyna Colón WPtel: [phone] [facility] [facility] 02/07/2010 Patient Education: Patient Medication Summary Completed 02/07/2010 Appointment: Yvetet David WPtel: [phone] [phone] [facility] 12/22/2009 Patient Education: Patient Medication Summary [...] data not found Advance Directives Filename Date [id number] 06/03/2012
--- OUTSIDE RECORDS SUMMARY | 2022-08-14 14:03 | XMS REPORT | CCD ---
Author Author Lucille David D.O. Organization 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 Name Role Phone Yvette David D.O., PP Unavailable CCM Unavailable Summary Purpose Interface Exchange Insurance Providers Payer name Policy type / Coverage type Covered libertarian ID Effective Begin Date Effective End Date WPS MEDICARE PART B [place] Medicare Part B [id number] Unknown Cigna Medicare Part B [id number] Unknown Family History Family History data not found Social History Social History Element Codes Description Effective Dates Tobacco history SNOMED CT: 272013858 Has never smoked or chewed tobacco 05/26/2015 Marital status Unknown 09/13/2011 Allergies, Adverse Reactions, Alerts Substance Reaction Codes Entered Date Inactivated Date Status * NO KNOWN ENVIRONMENTAL ALLERGIES Unknown 02/07/2010 N o Inactive Date Active * NO KNOWN FOOD ALLERGIES Unknown 02/07/2010 No Inactiv e Date Active PENICILLINS reaction, Unknown 11/02/2016 No Inactive Date Active Problems Condition Codes Effective Dates Condition Status Atrial fibrillation and flutter ICD-10: I48.91 ICD-9: [...] ICD-10: G62.9 ICD-9: 355.9 12/18/2016 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 ICD-9: V58.69 [...] Start Date Stop Date Status Fill Instructions Effexor XR 75 mg capsule,extended release RxNorm: 177865 Take 1 Capsule(s) Oral QPM replaces 37.5mg done 08/02/2022 10/30/2022 Active Singulair 10 mg tablet RxNorm: 484024 Take 1 Tablet(s) Oral QPM 05/202201/28/2023 Active metoprolol succinate ER 50 mg tablet,extended release 24 hr RxNorm: 654384 1 Tablet(s) Oral two times a day 06/26/2022 12/22/2022 Active amiodarone 200 mg tablet RxNorm: 646541 Take 1 Tablet(s) Oral t wo times a day 06/26/2022 06/26/2022 Inactive venlafaxine ER 37.5 mg capsule,extended release 24 hr RxNorm : 972319 Take 1 Capsule(s) Oral QAM 06/16/2022 08/01/2022 Inactive simvastatin 20 mg tablet RxNorm: 566284 Take 1 Tablet(s) Oral QD 11/21/2022 Active Xarelto 20 mg tablet RxNorm: 6985932 Take 1 Tablet(s) Oral QD 05/22 No Stop Date Active amiodarone 200 mg tablet RxNorm: 443729 Take 1 Tablet(s) Oral QD 06/25/2022 Inactive Euthyrox 88 mcg tablet RxNorm: 753877 TAKE 1 TABLET BY MOUTH ONCE DAILY - DUE FOR UPDATED LAB 05/21/2022 08/18/2022 Active Breztri Aerosphere 160 mcg-9mcg-4.8mcg/actuation HFA a erosol inhaler RxNorm: 8622966 2 Puff(s) Inhalation two times a day in the morning an d evening 05/01/2022 05/01/2022 Inactive Breztri Aerosphere 160 mcg-9mcg-4.8mcg/actuation HFA a erosol inhaler RxNorm: 8852097 2 Puff(s) Inhalation two times a day in the morning an d evening 05/01/2022 05/30/2022 Inactive diltiazem CD 120 mg capsule,extended release 24 hr RxNorm: 8 09725 TAKE 1 CAPSULE BY MOUTH TWICE DAILY REPLACES 180MG DOSE 04/17/2022 10/13/2022 Active pantoprazole 40 mg tablet,delayed release RxNorm: 009876 Take 1 Tablet(s) Oral QD 04/17/2022 10/13/2022 Active Xarelto 10 mg tablet RxNorm: 7449159 Take 1 Tablet(s) Oral QD 03/2105/21/2022 Inactive simvastatin 20 mg tablet RxNorm: 930756 Take 1 Tablet(s) Oral QD 02/23/2022 Inactive levothyroxine 88 mcg tablet RxNorm: 723149 Take 1 table t by mouth once daily due for updated lab 02/22/2022 02/22/2022 Inactive Cartia XT 120 mg capsule,extended release RxNorm: 991771 TAKE 1 CAPSULE BY MOUTH TWICE DAILY REPLACES 180MG DOSE 01/16/2022 01/16/2022 Inactive pantoprazole 40 mg tablet,delayed release RxNorm: 166624 Take 1 Oral QD 12/15/2021 12/15/2021 Inactive scopolamine 1 mg over 3 days transdermal patch RxNorm: 15943 2 Take 1 Application Transdermal Q3D as needed 11/23/2021 06/25/2022 Inactive Effexor XR 37.5 mg capsule,extended release RxNorm: 839812 1 Capsule(s) Oral QAM 11/23/2021 11/23/2021 Inactive levothyroxine 88 mcg tablet RxNorm: 042621 Take 1 tablet by alvaro th once daily 11/21/2021 11/21/2021 Inactive diltiazem CD 120 mg capsule,extended release 24 hr RxNorm: 8 54833 TAKE 1 CAPSULE BY MOUTH TWICE DAILY REPLACES 180MG DOSE 10/17/2021 10/17/2021 Inactiv e pantoprazole 40 mg tablet,delayed release RxNorm: 333642 Take 1 Tablet(s) Oral QD 10/17/2021 10/17/2021 Inactive Effexor XR 37.5 mg capsule,extended release RxNorm: 744937 1 Capsule(s) Oral QAM 10/12/2021 11/22/2021 Inactive Xarelto 10 mg tablet RxNorm: 8726971 Take 1 Tablet(s) Oral QD 09/1409/14/2021 Inactive metoprolol succinate ER 50 mg tablet,extended release 24 hr RxNorm: 216544 Take 1/2 (one-half) tablet by mouth twice daily 09/14/2021 03/12/2022 Inact beto simvastatin 20 mg tablet RxNorm: 200099 Take 1 Tablet(s) Oral QD 08/30/2021 Inactive levothyroxine 88 mcg tablet RxNorm: 077005 Take 1 tablet by [facility] once daily 08/28/2021 08/28/2021 Inactive fluticasone propionate 50 mcg/actuation nasal spray,suspensi on RxNorm: 3991541 Take 1 [place] Nasal QD in each nostrilas needed 08/09/2021 09/07/2021 I nactive pantoprazole 40 mg tablet,delayed release RxNorm: 442482 Take 1 Tablet(s) Oral QD 07/19/2021 07/19/2021 Inactive Xarelto 10 mg tablet RxNorm: 8071871 Take 1 Tablet(s) Oral QD 06/2906/29/2021 Inactive Euthyrox 88 mcg tablet RxNorm: 978607 Take 1 tablet by mouth on ce daily 05/24/2021 05/24/2021 Inactive Effexor XR 37.5 mg capsule,extended release RxNorm: 293655 1 Capsule(s) Oral QAM 05/12/2021 07/27/2021 Inactive Xarelto 10 mg tablet RxNorm: 8677508 Take 1 tablet by [facility] once daily Take 1 Tablet(s) Oral QD 04/19/2021 04/19/2021 Inactive metoprolol succinate ER 50 mg tablet,extended release 24 hr RxNorm: 071508 1/2 Tablet(s) Oral two times a day 04/12/2021 04/12/2021 Inactive d ecrease in dose of 1/2 tablet twice daily metoprolol succinate ER 50 mg tablet,extended release 24 hr RxNorm: 913903 Take 1/2 (one-half) tablet by mouth twice daily 04/12/2021 10/11/2021 Inact beto simvastatin 20 mg tablet RxNorm: 177040 Take 1 Tablet(s) Oral QD 03/07/2021 Inactive prednisone 10 mg tablet RxNorm: 065653 Take 1 Tablet(s) Oral tw o times a day 03/01/2021 03/01/2021 Inactive triamcinolone acetonide 0.1 % topical cream RxNorm: 0887653 Apply 1 Application Topical two times a day 03/01/2021 03/01/2021 Inactive prednisone 10 mg tablet RxNorm: 201130 Take 1 Tablet(s) Oral tw o times a day 03/01/2021 03/03/2021 Inactive triamcinolone acetonide 0.1 % topical cream RxNorm: 9378622 Apply 1 Application Topical two times a day 03/01/2021 03/01/2021 Inactive Euthyrox 88 mcg tablet RxNorm: 317465 Take 1 tablet by mouth on ce daily 02/22/2021 02/22/2021 Inactive Effexor XR 37.5 mg capsule,extended release RxNorm: 559931 1 Capsule(s) Oral QAM 02/03/2021 02/02/2021 Inactive Effexor XR 37.5 mg capsule,extended release RxNorm: 457491 1 Capsule(s) Oral QAM 02/03/2021 04/03/2021 Inactive simvastatin 20 mg tablet RxNorm: 730203 Take 1 tablet by mouth once daily 1 01/25/2021 01/25/2021 Inactive Cardizem CD 120 mg capsule,extended release RxNorm: 151760 1 Capsule(s) Oral two times a day replaces 180mg dose 01/19/2021 01/19/2021 Inactive Protonix 40 mg tablet,delayed release RxNorm: 099940 1 Tablet(s ) Oral QD 01/17/2021 01/17/2021 Inactive Effexor XR 37.5 mg capsule,extended release RxNorm: 618094 1 Capsule(s) Oral QAM 01/04/2021 02/02/2021 Inactive scopolamine 1 mg over 3 days transdermal patch RxNorm: 02393 2 1 Application Transdermal behind ear for vertigo 01/04/2021 01/03/2021 Inactive scopolamine 1 mg over 3 days transdermal patch RxNorm: 47090 2 1 Application Transdermal behind ear for vertigo 01/04/2021 01/04/2021 Inactive metoprolol succinate ER 50 mg tablet,extended release 24 hr RxNorm: 109583 1/2 Tablet(s) Oral two times a day 12/29/2020 12/28/2020 Inactive metoprolol succinate ER 50 mg tablet,extended release 24 hr RxNorm: 179273 1/2 Tablet(s) Oral two times a day 12/29/2020 12/29/2020 Inactive d ecrease in dose of 1/2 tablet twice daily Xarelto 10 mg tablet RxNorm: 5022562 Take 1 tablet by mouth once daily 12/29/2020 03/29/2021 Inactive Xarelto 10 mg tablet RxNorm: 1599061 Take 1 tablet by mouth once daily 11/26/2020 12/28/2020 Inactive simvastatin 20 mg tablet RxNorm: 229836 Take 1 tablet by mouth once daily 11/26/2020 01/24/2021 Inactive Synthroid 88 mcg tablet RxNorm: 023731 Take 1 tablet by mouth o nce daily 10/21/2020 10/21/2020 Inactive simvastatin 20 mg tablet RxNorm: 192740 Take 1 tablet by mouth once daily 09/30/2020 11/25/2020 Inactive Xarelto 10 mg tablet RxNorm: 2965899 Take 1 tablet by mouth once daily 08/26/2020 11/23/2020 Inactive metoprolol succinate ER 50 mg tablet,extended release 24 hr RxNorm: 625428 1 Tablet(s) Oral two times a day 08/05/2020 11/03/2020 Inactive simvastatin 20 mg tablet RxNorm: 596907 Take 1 tablet by mouth once daily 07/30/2020 09/27/2020 Inactive Synthroid 88 mcg tablet RxNorm: 846714 Take 1 tablet by mouth o nce daily 07/27/2020 10/20/2020 Inactive Protonix 40 mg tablet,delayed release RxNorm: 851862 1 Tablet(s ) Oral QD 07/26/2020 10/24/2020 Inactive Xarelto 10 mg tablet RxNorm: 2519120 1 Tablet(s) Oral QD 06/03/2020 1 10/26/2019 Inactive Cardizem CD 120 mg capsule,extended release RxNorm: 866560 1 Capsule(s) Oral two times a day replaces 180mg dose 05/11/2020 11/07/2020 Inactive Pradaxa 75 mg capsule RxNorm: 0877479 1 Capsule(s) Oral two time s a day 05/11/2020 05/11/2020 Inactive meclizine 25 mg tablet RxNorm: 553386 1 Tablet(s) Oral every ni ght at bedtime 05/05/2020 10/11/2021 Inactive simvastatin 20 mg tablet RxNorm: 354334 Take 1 tablet by mouth once daily 05/04/2020 05/10/2020 Inactive simvastatin 20 mg tablet RxNorm: 804591 TAKE 1 TABLET BY MOUTH ONCE DAILY 04/29/2020 09/19/2020 Inactive Synthroid 88 mcg tablet RxNorm: 741032 TAKE 1 TABLET BY MOUTH O NCE DAILY 04/20/2020 07/18/2020 Inactive diltiazem CD 180 mg capsule,extended release 24 hr RxNorm: 8 06748 TAKE 1 CAPSULE BY MOUTH TWICE DAILY 04/05/2020 05/10/2020 Inactive simvastatin 20 mg tablet RxNorm: 391604 TAKE 1 TABLET BY MOUTH ONCE DAILY 02/24/2020 04/23/2020 Inactive aspirin 325 mg tablet RxNorm: 735123 1 Tablet(s) Oral QD 02/11/2020 0 05/10/2020 Inactive hydroxyzine HCl 10 mg tablet RxNorm: 598833 1 Tablet(s) Oral th ree times a day 01/28/2020 05/10/2020 Inactive diltiazem CD 180 mg capsule,extended release 24 hr RxNorm: 8 35516 TAKE 1 CAPSULE BY MOUTH TWICE DAILY 01/19/2020 04/04/2020 Inactive spironolactone 25 mg tablet RxNorm: 994794 1 Tablet(s) Oral QOD replaces Triam/HCTZ 01/15/2020 01/14/2020 Inactive spironolactone 25 mg tablet RxNorm: 643906 1 Tablet(s) Oral QOD replaces Triam/HCTZ 01/15/2020 01/26/2020 Inactive prednisone 20 mg tablet RxNorm: 891303 1 Tablet(s) Oral QD 01/12/20 20 01/14/2020 Inactive prednisone 20 mg tablet RxNorm: 421563 1 Tablet(s) Oral QD 01/12/20 20 01/11/2020 Inactive Benadryl 25 mg capsule RxNorm: 1143139 1 Capsule(s) Oral every n ight at bedtime 01/08/2020 05/10/2020 Inactive Pepcid 20 mg tablet RxNorm: 537054 1 Tablet(s) Oral two times a day 01/08/2020 07/25/2020 Inactive [place] Original 0.5 %-0.5 % lotion RxNorm: 273152 Topical 0 10/11/2021 Inactive Zyrtec 10 mg tablet RxNorm: 5374580 1 Tablet(s) Oral QAM 01/08/2020 0 05/10/2020 Inactive metoprolol succinate ER 50 mg tablet,extended release 24 hr RxNorm: 822206 1 Tablet(s) Oral two times a day 01/05/2020 04/04/2020 Inactive Protonix 40 mg tablet,delayed release RxNorm: 492145 TA KE 1 TABLET BY MOUTH ONCE DAILY 12/29/2019 05/10/2020 Inactive triamterene 37.5 mg-hydrochlorothiazide 25 mg tablet RxNorm: 382540 TAKE 1/2 (ONE-HALF) TABLET BY MOUTH EVERY OTHER DAY 12/24/2019 01/14/2020 Inact beto triamterene 37.5 mg-hydrochlorothiazide 25 mg tablet RxNorm: 498405 1/2 Tablet(s) Oral QD 12/12/2019 01/26/2020 Inactive diltiazem CD 180 mg capsule,extended release 24 hr RxNorm: 8 20962 TAKE 1 CAPSULE BY MOUTH TWICE DAILY 12/03/2019 01/18/2020 Inactive Eliquis 2.5 mg tablet RxNorm: 9718752 1 Tablet(s) Oral two times a day 11/25/2019 02/10/2020 Inactive simvastatin 20 mg tablet RxNorm: 853116 TAKE 1 TABLET BY MOUTH ONCE DAILY 11/25/2019 02/22/2020 Inactive triamterene 37.5 mg-hydrochlorothiazide 25 mg tablet RxNorm: 984328 1/2 Tablet(s) Oral QOD 11/06/2019 12/11/2019 Inactive triamterene 37.5 mg-hydrochlorothiazide 25 mg tablet RxNorm: 920570 1/2 Tablet(s) Oral QD 10/22/2019 10/28/2019 Inactive meclizine 25 mg tablet RxNorm: 493139 1 Tablet(s) Oral every ni ght at bedtime 10/20/2019 11/19/2019 Inactive Synthroid 88 mcg tablet RxNorm: 718499 TAKE 1 TABLET BY MOUTH O NCE DAILY 10/20/2019 10/21/2019 Inactive scopolamine 1 mg over 3 days transdermal patch RxNorm: 27499 2 1 Unit Dose Transdermal Q72H for vertigo 10/14/2019 01/04/2020 Inactive scopolamine 1 mg over 3 days transdermal patch RxNorm: 76443 2 1 Unit Dose Transdermal Q72H for vertigo 10/14/2019 10/14/2019 Inactive Celebrex 200 mg capsule RxNorm: 161160 TAKE 1 CAPSULE BY MOUTH ONCE DAILY 10/12/2019 10/28/2019 Inactive triamterene 37.5 mg-hydrochlorothiazide 25 mg tablet RxNorm: 194380 1 Tablet(s) Oral QAM 10/06/2019 10/21/2019 Inactive diltiazem CD 180 mg capsule,extended release 24 hr RxNorm: 8 42057 1 Capsule(s) Oral two times a day 10/01/2019 11/29/2019 Inactive simvastatin 20 mg tablet RxNorm: 197527 TAKE 1 TABLET BY MOUTH ONCE DAILY 10/01/2019 10/01/2019 Inactive Patient will need to have fasting labs done before next refill Protonix 40 mg tablet,delayed release RxNorm: 751428 TA KE 1 TABLET BY MOUTH ONCE DAILY 09/28/2019 12/26/2019 Inactive diltiazem CD 180 mg capsule,extended release 24 hr RxNorm: 8 37733 1 Capsule(s) Oral two times a day 08/11/2019 08/10/2019 Inactive diltiazem CD 180 mg capsule,extended release 24 hr RxNorm: 8 81571 1 Capsule(s) Oral two times a day 08/11/2019 09/30/2019 Inactive diltiazem CD 120 mg capsule,extended release 24 hr RxNorm: 8 05599 1 Capsule(s) Oral two times a day 07/23/2019 08/10/2019 Inactive Celebrex 200 mg capsule RxNorm: 834067 1 Capsule(s) Oral QD 019 07/08/2019 Inactive Celebrex 200 mg capsule RxNorm: 625403 1 Capsule(s) Oral QD 10/07/2019 Inactive diltiazem CD 120 mg capsule,extended release 24 hr RxNorm: 8 86821 1 Capsule(s) Oral QAM 07/07/2019 07/22/2019 Inactive Eliquis 2.5 mg tablet RxNorm: 2880466 1 Tablet(s) Oral two times a day 07/07/2019 11/04/2019 Inactive metoprolol succinate ER 50 mg tablet,extended release 24 hr RxNorm: 691394 1 Tablet(s) Oral QAM and 2 tablets in the evening 06/30/2019 08/05/2020 Inactive hydrochlorothiazide 25 mg tablet RxNorm: 882842 1 Tablet(s) PO QD 1 07/06/2019 Inactive hydrochlorothiazide 25 mg tablet RxNorm: 804347 1 Tablet(s) PO QD 0 05/08/2019 05/07/2019 Inactive patient needs to follow up i n 2 months and continue BP readings at home hydrochlorothiazide 25 mg tablet RxNorm: 911302 1 Tablet(s) PO QD 0 05/08/2019 06/25/2019 Inactive patient needs to follow up i n 2 months and continue BP readings at home metoprolol succinate ER 50 mg tablet,extended release 24 hr RxNorm: 542602 1 Tablet(s) PO QAM and 2 tablets in the evening 05/08/2019 06/29/2019 In active hydrochlorothiazide 12.5 mg tablet RxNorm: 110874 1 Tablet(s) PO QA M 04/15/2019 05/07/2019 Inactive Synthroid 88 mcg tablet RxNorm: 839307 TAKE 1 TABLET BY MOUTH O NCE DAILY 04/14/2019 10/19/2019 Inactive Protonix 40 mg tablet,delayed release RxNorm: 392982 TA KE 1 TABLET BY MOUTH ONCE DAILY 03/24/2019 09/27/2019 Inactive simvastatin 20 mg tablet RxNorm: 376417 TAKE 1 TABLET BY MOUTH ONCE DAILY 03/24/2019 09/30/2019 Inactive losartan 100 mg tablet RxNorm: 370365 1/2 Tablet(s) PO QD 2019 04/14/2019 Inactive Cozaar 50 mg tablet RxNorm: 883936 1 Tablet(s) PO QHS 01/28/201903/25 Inactive Celebrex 200 mg capsule RxNorm: 219509 TAKE 1 CAPSULE BY MOUTH ONCE DAILY 01/10/2019 07/08/2019 Inactive Protonix 40 mg tablet,delayed release RxNorm: 371631 TA KE 1 TABLET BY MOUTH ONCE DAILY 12/23/2018 03/23/2019 Inactive metoprolol succinate ER 50 mg tablet,extended release 24 hr RxNorm: 367280 1.5 Tablet(s) PO BID 12/03/2018 04/14/2019 Inactive Synthroid 88 mcg tablet RxNorm: 711518 1 Tablet(s) PO QD 10/24/2018 0 04/13/2019 Inactive simvastatin 20 mg tablet RxNorm: 902311 1 Tablet(s) PO QD 09/27/2018 12/25/2018 Inactive simvastatin 20 mg tablet RxNorm: 739777 1 Tablet(s) PO QD 09/26/2018 09/26/2018 Inactive Cozaar 50 mg tablet RxNorm: 093850 1 Tablet(s) PO QHS 09/09/2018 050 02/2019 Inactive Cozaar 50 mg tablet RxNorm: 842396 1 Tablet(s) PO QHS 09/09/201808/24 Inactive metoprolol succinate ER 50 mg tablet,extended release 24 hr RxNorm: 547615 1.5 Tablet(s) PO BID 09/02/2018 11/30/2018 Inactive Cozaar 50 mg tablet RxNorm: 767929 1 Tablet(s) PO QHS 05/24/201808/24 Inactive Cozaar 25 mg tablet RxNorm: 647225 1 Tablet(s) PO QAM 05/10/201804/25 Inactive clonidine HCl 0.1 mg tablet RxNorm: 635405 1 Tablet(s) PO TID as needed for BP greater than 160/95 05/10/2018 05/20/2018 Inactive betamethasone dipropionate 0.05 % topical cream RxNorm: 2389 20 1 Application TOP BID 05/06/2018 11/25/2018 Inactive prednisone 20 mg tablet RxNorm: 559167 1 Tablet(s) PO QD 05/06/2018 0 05/05/2018 Inactive prednisone 20 mg tablet RxNorm: 412049 1 Tablet(s) PO QD 05/06/2018 0 05/10/2018 Inactive metoprolol succinate ER 50 mg tablet,extended release 24 hr RxNorm: 054057 1.5 Tablet(s) PO BID 05/06/2018 09/01/2018 Inactive Flonase Allergy Relief 50 mcg/actuation nasal spray,suspensi on RxNorm: 2335252 2 [place] NASAL QHS 05/03/2018 11/25/2018 Inactive Celebrex 200 mg capsule RxNorm: 663719 TAKE ONE CAPSULE BY MOUT H ONCE DAILY 04/30/2018 05/02/2018 Inactive Celebrex 200 mg capsule RxNorm: 746349 1 Capsule(s) PO QD TAKE ONE CAPSULE BY MOUTH ONCE DAILY 04/30/2018 05/02/2018 Inactive Synthroid 88 mcg tablet RxNorm: 413483 1 Tablet(s) PO QD 03/12/2018 1 11/08/2017 Inactive acyclovir 5 % topical ointment RxNorm: 524891 1 Unit Dose TOP Q 6H as needed 03/05/2018 11/25/2018 Inactive Protonix 40 mg tablet,delayed release RxNorm: 504740 1 Tablet(s ) PO QD 12/17/2017 12/22/2018 Inactive simvastatin 20 mg tablet RxNorm: 523521 TAKE ONE TABLET BY MOUT H ONCE DAILY 12/17/2017 09/27/2018 Inactive Celebrex 200 mg capsule RxNorm: 435451 TAKE ONE CAPSULE BY MOUT H ONCE DAILY 10/30/2017 04/29/2018 Inactive Synthroid 88 mcg tablet RxNorm: 899877 1 Tablet(s) PO QD 09/19/2017 0 03/12/2018 Inactive Synthroid 88 mcg tablet RxNorm: 705021 1 Tablet(s) PO QD Needs updated labs 09/19/2017 10/24/2018 Inactive Synthroid 88 mcg tablet RxNorm: 500209 1 Tablet(s) PO QD 06/20/2017 1 11/18/2016 Inactive simvastatin 20 mg tablet RxNorm: 000617 1 Tablet(s) PO QD 06/15/2017 09/12/2017 Inactive simvastatin 20 mg tablet RxNorm: 439860 1 Tablet(s) PO QD 06/15/2017 06/14/2017 Inactive metoprolol succinate ER 25 mg tablet,extended release 24 hr RxNorm: 440484 1 Tablet(s) PO QD 06/14/2017 07/23/2017 Inactive Valtrex 1 gram tablet RxNorm: 303752 1 Tablet(s) PO TID 06/01/2017 Inactive Celebrex 200 mg capsule RxNorm: 338957 1 Capsule(s) PO QD 05/01/2017 10/27/2017 Inactive Toprol XL 25 mg tablet,extended release RxNorm: 994618 09/25 Tabl et(s) PO QD 04/12/2017 06/13/2017 Inactive simvastatin 20 mg tablet RxNorm: 048558 1 Tablet(s) PO QD 03/19/2017 06/14/2017 Inactive Synthroid 88 mcg tablet RxNorm: 072407 1 Tablet(s) PO QD 03/14/2017 0 06/20/2017 Inactive aspirin 81 mg chewable tablet RxNorm: 055098 1 Tablet(s) PO QD 12/2404/21/2018 Inactive simvastatin 20 mg tablet RxNorm: 318743 TAKE ONE TABLET BY MOUT H ONCE DAILY 12/19/2016 03/19/2017 Inactive gabapentin 300 mg capsule RxNorm: 160544 1 Capsule(s) PO QHS 201603/29/2017 Inactive Protonix 40 mg tablet,delayed release RxNorm: 914323 TA KE ONE TABLET BY MOUTH ONCE DAILY 12/14/2016 12/08/2017 Inactive Flonase Allergy Relief 50 mcg/actuation nasal spray,suspensi on RxNorm: 0472536 2 [place] NASAL QHS 11/02/2016 12/17/2016 Inactive clotrimazole-betamethasone 1 %-0.05 % topical cream RxNorm: 605274 1 Application TOP BID 11/02/2016 11/01/2016 Inactive clotrimazole-betamethasone 1 %-0.05 % topical cream RxNorm: 278500 1 Application TOP BID 11/02/2016 12/17/2016 Inactive Tessalon Perles 100 mg capsule RxNorm: 038046 1 Capsule(s) PO TID 0 11/02/2016 12/17/2016 Inactive amoxicillin 500 mg tablet RxNorm: 760040 1 Tablet(s) PO TID 017 11/01/2016 Inactive Toprol XL 25 mg tablet,extended release RxNorm: 957046 TAKE ONE-HALF TABLET BY MOUTH ONCE DAILY 10/19/2016 04/12/2017 Inactive Toprol XL 25 mg tablet,extended release RxNorm: 494605 1/2 Tablet(s) PO QD Due for routine fasting labs and appointment 10/19/2016 01/16/2017 Inactiv e gabapentin 600 mg tablet RxNorm: 653619 1 Tablet(s) PO QHS 07/24/20 16 12/17/2016 Inactive gabapentin 600 mg tablet RxNorm: 822525 TAKE ONE TABLET BY MOUT H AT BEDTIME 07/24/2016 07/23/2016 Inactive simvastatin 20 mg tablet RxNorm: 847321 TAKE ONE TABLET BY MOUT H ONCE DAILY 06/15/2016 12/11/2016 Inactive Celebrex 200 mg capsule RxNorm: 615212 1 Capsule(s) PO QD 05/10/2016 05/01/2017 Inactive Celebrex 200 mg capsule RxNorm: 664280 1 Capsule(s) PO QD 05/09/2016 05/09/2016 Inactive Synthroid 88 mcg tablet RxNorm: 812227 Tablet(s) 1 Tablet(s) PO QD 03/21/2016 09/16/2016 Inactive Synthroid 88 mcg tablet RxNorm: 105524 1 Tablet(s) PO QD 03/20/2016 0 03/20/2016 Inactive simvastatin 20 mg tablet RxNorm: 073925 TAKE ONE TABLET BY MOUT H ONCE DAILY 03/06/2016 06/03/2016 Inactive meclizine 25 mg tablet RxNorm: 040496 1 Tablet(s) PO TID as nee ded dizziness 02/07/2016 12/17/2016 Inactive Zofran ODT 4 mg disintegrating tablet RxNorm: 631747 1 Tablet(s) PO Q6H as needed for nausea 02/07/2016 12/17/2016 Inactive gabapentin 600 mg tablet RxNorm: 986078 TAKE ONE TABLET BY MOUT H AT BEDTIME 01/20/2016 07/17/2016 Inactive Synthroid 88 mcg tablet RxNorm: 215647 1 Tablet(s) PO QD 12/27/2015 0 03/19/2016 Inactive simvastatin 20 mg tablet RxNorm: 717960 1 Tablet(s) PO QD 12/06/2015 03/04/2016 Inactive Protonix 40 mg tablet,delayed release RxNorm: 398574 1 Tablet(s ) PO QD 12/06/2015 12/13/2016 Inactive Celebrex 200 mg capsule RxNorm: 267002 1 Capsule(s) PO QD 11/03/2015 05/10/2016 Inactive Celebrex 200 mg capsule RxNorm: 390604 1 Capsule(s) PO QD 11/03/2015 11/02/2015 Inactive simvastatin 20 mg tablet RxNorm: 799233 1 Tablet(s) PO QD 09/06/2015 12/04/2015 Inactive Gralise 600 mg tablet,extended release RxNorm: 0624138 1 Tablet( s) PO QD 08/23/2015 10/18/2015 Inactive Synthroid 88 mcg tablet RxNorm: 055174 1 Tablet(s) PO QD 06/30/2015 0 09/27/2015 Inactive simvastatin 20 mg tablet RxNorm: 073342 1 Tablet(s) PO QD 06/07/2015 09/04/2015 Inactive Synthroid 88 mcg tablet RxNorm: 216596 1 Tablet(s) PO QD 06/07/2015 1 Inactive Celebrex 200 mg capsule RxNorm: 479708 1 Capsule(s) PO QD 06/07/2015 11/02/2015 Inactive Protonix 40 mg tablet,delayed release RxNorm: 928134 1 Tablet(s ) PO QD 06/07/2015 12/03/2015 Inactive Toprol XL 25 mg tablet,extended release RxNorm: 848322 1/2 Tabl et(s) PO QD 04/13/2015 10/09/2015 Inactive [SAVINGS FOR UNINSUR ED PATIENTS -- BIN:[id number], PCN: [id number], Group: [id number], ID# [id number], Process claim through [employer], for questions: . THIS IS NOT INSURANCE.] Synthroid 88 mcg tablet RxNorm: 965675 1 Tablet(s) PO Q D TAKE ONE TABLET BY MOUTH ONCE DAILY 03/29/2015 06/30/2015 Inactive Celebrex 200 mg capsule RxNorm: 613496 1 Capsule(s) PO QD 03/22/2015 06/06/2015 Inactive Celebrex 200 mg capsule RxNorm: 214321 1 Capsule(s) PO QD 02/22/2015 03/21/2015 Inactive Celebrex 200 mg capsule RxNorm: 166141 1 Capsule(s) PO QD 01/21/2015 02/21/2015 Inactive Synthroid 88 mcg tablet RxNorm: 472425 1 Tablet(s) PO Q D TAKE ONE TABLET BY MOUTH ONCE DAILY 12/21/2014 03/29/2015 Inactive meloxicam 15 mg tablet RxNorm: 460656 1 Tablet(s) PO QD 12/09/2014 Inactive [SAVINGS FOR NON-COVERED DRUGS -- BIN:[id number], PCN: [id number], Group: [id number], ID# [id number], Questions: . THIS IS NOT INSURANCE.] Protonix 40 mg tablet,delayed release RxNorm: 316699 1 Tablet(s ) PO QD 12/08/2014 06/05/2015 Inactive Protonix 40 mg tablet,delayed release RxNorm: 862166 1 Tablet(s ) PO QD 12/07/2014 12/07/2014 Inactive simvastatin 20 mg tablet RxNorm: 790450 TAKE ONE TABLET BY MOUT H ONCE DAILY 11/30/2014 05/28/2015 Inactive clotrimazole-betamethasone 1 %-0.05 % topical cream RxNorm: 3087 14 TOP BID 11/30/2014 11/01/2016 Inactive acetic acid 2 % ear solution RxNorm: 426530 5 Drop(s) OTIC Left ear QID 11/30/2014 12/06/2014 Inactive meloxicam 15 mg tablet RxNorm: 321676 1 Tablet(s) PO QD 10/30/2014 Inactive [SAVINGS FOR NON-COVERED DRUGS -- BIN:00 [id number], PCN: ASPROD1, Group: [id number], ID# [id number], Questions: . THIS IS NOT INSURANCE.] meloxicam 15 mg tablet RxNorm: 989477 1 Tablet(s) PO QD 10/30/2014 Inactive Toprol XL 25 mg tablet,extended release RxNorm: 283658 1/2 Tabl et(s) PO QD 10/12/2014 04/09/2015 Inactive [SAVINGS FOR UNINSUR ED PATIENTS -- BIN:[id number], PCN: ASPROD1, Group: [id number], ID# [id number], Process claim through [employer], for questions: . THIS IS NOT INSURANCE.] Synthroid 88 mcg tablet RxNorm: 547624 1 Tablet(s) PO Q D TAKE ONE TABLET BY MOUTH ONCE DAILY 09/21/2014 12/19/2014 Inactive Protonix 40 mg tablet,delayed release RxNorm: 413650 1 Tablet(s ) PO QD 07/23/2014 11/19/2014 Inactive Synthroid 88 mcg tablet RxNorm: 443118 TAKE ONE TABLET BY MOUTH ONCE DAILY 06/23/2014 09/21/2014 Inactive omeprazole 40 mg capsule,delayed release RxNorm: 599003 1 Capsu le(s) PO QD 06/16/2014 07/22/2014 Inactive [SAVINGS FOR UNINSUR ED PATIENTS -- BIN:[id number], PCN: ASPROD1, Group: [id number], ID# [id number], Process claim through [employer], for questions: . THIS IS NOT INSURANCE.] Toprol XL 25 mg tablet,extended release RxNorm: 565727 1/2 Tabl et(s) PO QD 04/13/2014 10/12/2014 Inactive Celebrex 200 mg capsule RxNorm: 577086 1 Capsule(s) PO QD for pain 03/16/2014 10/29/2014 Inactive Medrol (Ochoa) 4 mg tablets in a dose pack RxNorm: 168942 Tablet(s) PO as directed 03/09/2014 07/22/2014 Inactive Synthroid 88 mcg tablet RxNorm: 549205 1 Tablet(s) PO QD 02/17/2014 0 06/23/2014 Inactive Celebrex 200 mg capsule RxNorm: 936779 1 Capsule(s) PO QD for pain 02/17/2014 03/15/2014 Inactive omeprazole 40 mg capsule,delayed release RxNorm: 768876 1 Capsu le(s) PO QD 02/05/2014 06/16/2014 Inactive Protonix 40 mg tablet,delayed release RxNorm: 860483 1 Tablet(s ) PO QD 01/23/2014 05/10/2020 Inactive Toprol XL 25 mg tablet,extended release RxNorm: 094168 1/2 Tablet(s) PO QD TAKE ONE-HALF TABLET BY MOUTH EVERY DAY 01/12/2014 04/13/2014 Inactive Synthroid 88 mcg tablet RxNorm: 118456 Tablet(s) PO MANDY E ONE TABLET BY MOUTH EVERY DAY 11/17/2013 02/17/2014 Inactive Celebrex 200 mg capsule RxNorm: 667613 1 Capsule(s) PO QD for pain 10/20/2013 02/17/2014 Inactive Toprol XL 25 mg tablet,extended release RxNorm: 859993 1/2 Tabl et(s) PO QD 07/17/2013 01/12/2014 Inactive Nexium 40 mg capsule,delayed release RxNorm: 175654 1 C apsule(s) PO QD Generic ok 07/14/2013 09/21/2013 Inactive Celebrex 200 mg capsule RxNorm: 695144 1 Capsule(s) PO QD for pain 06/19/2013 10/20/2013 Inactive Synthroid 88 mcg tablet RxNorm: 433003 1 Tablet(s) PO QD 05/13/2013 0 11/17/2013 Inactive TAKE ONE TABLET BY MOUTH EVERY DAY Nexium 40 mg capsule,delayed release RxNorm: 071412 Cap maureen(s) PO TAKE ONE CAPSULE BY MOUTH EVERY DAY 05/05/2013 07/13/2013 Inactive Celebrex 200 mg capsule RxNorm: 843694 1 Capsule(s) PO QD for pain 04/07/2013 06/19/2013 Inactive Esgic-Plus 50 mg-500 mg-40 mg capsule RxNorm: 059728 1 Capsule(s) PO Q4-6H prn headache 04/07/2013 04/07/2013 Inactive Toprol XL 25 mg tablet,extended release RxNorm: 149610 1/2 Tabl et(s) PO QD 12/16/2012 06/13/2013 Inactive Nexium 40 mg capsule,delayed release RxNorm: 427400 1 Capsule(s ) PO QD 11/20/2012 03/19/2013 Inactive Synthroid 88 mcg tablet RxNorm: 580891 1 Tablet(s) PO QD 10/28/2012 0 04/25/2013 Inactive TAKE ONE TABLET BY MOUTH EVERY DAY Toprol XL 25 mg tablet,extended release RxNorm: 036511 1/2 Tabl et(s) PO QD 09/25/2012 12/16/2012 Inactive Synthroid 88 mcg tablet RxNorm: 874012 1 Tablet(s) PO QD 04/22/2012 0 10/28/2012 Inactive TAKE ONE TABLET BY MOUTH EVERY DAY Nexium 40 mg capsule,delayed release RxNorm: 150046 1 Capsule(s ) PO QD 04/16/2012 11/20/2012 Inactive Esgic-Plus 50 mg-500 mg-40 mg capsule RxNorm: 221824 1 Capsule(s) PO Q4-6H prn headache 03/28/2012 04/06/2013 Inactive Toprol XL 25 mg tablet,extended release RxNorm: 788679 1/2 Tabl et(s) PO QD 03/07/2012 09/25/2012 Inactive Toprol XL 25 mg 24 hr Tab RxNorm: 913026 1/2 Tablet(s) PO QD 201101/03/2012 Inactive Three times a week Synthroid 88 mcg Tab RxNorm: 993284 1 Tablet(s) PO QD 10/10/201112/23 Inactive TAKE ONE TABLET BY MOUTH EVERY DAY prednisone 20 mg Tab RxNorm: 718186 1 Tablet(s) PO BID 09/13/2011 Inactive doxycycline 100 mg Cap RxNorm: 6588553 1 Capsule(s) PO BID 09/13/20 11 09/22/2011 Inactive cefdinir 300 mg Cap RxNorm: 114205 1 Capsule(s) PO BID 08/07/2011 Inactive Synthroid 88 mcg Tab RxNorm: 029909 1 Tablet(s) PO QD 07/19/201109/24 Inactive TAKE ONE TABLET BY MOUTH EVERY DAY Synthroid 88 mcg Tab RxNorm: 472986 1 Tablet(s) PO QD 07/19/201103/26 Inactive TAKE ONE TABLET BY MOUTH EVERY DAY Synthroid 88 mcg Tab RxNorm: 139200 1 Tablet(s) PO QD 07/18/201106/25 Inactive TAKE ONE TABLET BY MOUTH EVERY DAY Synthroid 88 mcg Tab RxNorm: 265778 1 Tablet(s) PO QD 05/15/201106/25 Inactive TAKE ONE TABLET BY MOUTH EVERY DAY Synthroid 88 mcg Tab RxNorm: 871440 1 Tablet(s) PO QD 03/15/201104/25 Inactive Synthroid 75 mcg Tab RxNorm: 770381 1 Tablet(s) PO QD 01/04/201102/22 Inactive Synthroid 50 mcg Tab RxNorm: 577838 1 Tablet(s) PO QD G eneric okay. Please explain to patient that she may see more variation in her thyroid labs and increased symptoms. 07/07/2010 03/14/2011 Inactive Prednisone 20 mg Tab RxNorm: 656897 1 Tablet(s) PO BID 02/14/2010 Inactive Flexeril 10 mg Tab RxNorm: 943131 1 Tablet(s) PO TID 02/07/201002/13 Inactive Synthroid 25 mcg Tab RxNorm: 568060 1 Tablet(s) PO QD 12/29/200902/23 Inactive Synthroid 50 mcg Tab RxNorm: 914118 1 Tablet(s) PO QD 12/29/200911/2009 Inactive Vitamin D3 2,000 unit tablet RxNorm: 342042 1 Tablet(s) PO QAM 2014 Active coenzyme Q10 200 mg tablet RxNorm: 588439 1 Tablet(s) PO QD 09/01/2014 Active Trelegy Ellipta inhalation RxNorm: 2962753 inhalation 05/30/2022 Active Vitamin B12 1000mcg Tablet RxNorm: 1/2 Tablet(s) PO QD 04/03/2017 Active gabapentin 600 mg tablet RxNorm: 669983 1 Tablet(s) PO QPM 01/20/20 16 01/19/2016 Inactive Fish Oil 1,000 mg capsule RxNorm: 1 Capsule(s) PO QHS 10/18/2017 0 10/17/2017 Inactive Toprol XL 25 mg 24 hr Tab RxNorm: 457189 1/2 Tablet(s) PO QD 201103/06/2012 Inactive turmeric root extract oral RxNorm: 6985769 oral 05/26/20152014 Inactive Esgic 50 mg-325 mg-40 mg tablet RxNorm: 550929 1 Tablet (s) PO Q4H as needed for pain 05/26/2015 05/25/2015 Inactive Synthroid 88 mcg Tab RxNorm: 376946 1 Tablet(s) PO QD 03/15/201102/23 Inactive Calcium with Vitamin D 600 mg-400 unit Tab RxNorm: 138496 1 Tab let(s) PO BID 03/31/2013 03/30/2013 Inactive Synthroid 50 mcg Tab RxNorm: 498154 1 Tablet(s) PO QD 03/16/201002/23 Inactive Celebrex 200 mg capsule RxNorm: 711053 1 Capsule(s) PO QD 01/21/2015 01/20/2015 Inactive betamethasone dipropionate 0.05 % topical cream RxNorm: 2389 20 1 Application TOP BID 05/06/2018 05/05/2018 Inactive Protonix 40 mg tablet,delayed release RxNorm: 006855 1 Tablet(s ) PO QD 01/23/2014 01/23/2014 Inactive Calcium + D 600 mg (1,500)-200 unit Tab RxNorm: 411725 1 Tablet (s) PO QD 01/04/2011 01/03/2011 Inactive simvastatin 20 mg tablet RxNorm: 919676 1 Tablet(s) PO QD 11/30/2014 11/29/2014 Inactive Fish Oil 1,000 mg capsule RxNorm: 2 Capsule(s) PO QD 05/26/2015 Inactive Gralise 600 mg tablet,extended release RxNorm: 1185586 1 Tablet( s) PO QD 08/23/2015 08/22/2015 Inactive Vitamin B12 1000mcg Tablet RxNorm: 1 Tablet(s) PO QD 04/03/2017 Inactive Esgic-Plus 50 mg-500 mg-40 mg Cap RxNorm: 587163 1 Caps ule(s) PO Q4-6H prn headache 03/28/2012 03/27/2012 Inactive Cozaar 50 mg tablet RxNorm: 119451 1 Tablet(s) PO QHS 05/24/201804/26 Inactive Toprol XL 25 mg 24 hr Tab RxNorm: 451092 2 Tablet(s) PO Three t imes a week 01/01/2012 12/31/2011 Inactive metoprolol succinate ER 25 mg tablet,extended release 24 hr RxNorm: 612402 1 Tablet(s) PO TID 10/18/2017 10/17/2017 Inactive metoprolol succinate ER 50 mg tablet,extended release 24 hr RxNorm: 646237 1.5 Tablet(s) PO QAM and tablet at bedtime 05/06/2018 05/05/2018 Inactive Esgic-Plus 50 mg-500 mg-40 mg Cap RxNorm: 244342 1 Capsule(s) P O Q4-6H 08/07/2011 08/06/2011 Inactive metoprolol succinate ER 50 mg tablet,extended release 24 hr RxNorm: 778395 1 Tablet(s) PO QD 04/22/2018 04/21/2018 Inactive Multivitamin & Mineral Formula Tab RxNorm: 1 Tablet(s) PO QD 0 03/31/2013 03/30/2013 Inactive metoprolol succinate ER 50 mg tablet,extended release 24 hr RxNorm: 674152 2 Tablet(s) PO QAM and 1.5 tablets (75mg) at bedtime 05/01/2019 9 Inactive Fish Oil 1,000 mg Cap RxNorm: 1 Capsule(s) PO QD 03/31/20132012 Inactive pantoprazole 40 mg tablet,delayed release RxNorm: 595065 1 Tabl et(s) PO QD 02/05/2014 02/04/2014 Inactive Eliquis 2.5 mg tablet RxNorm: 7278596 1 Tablet(s) PO BID 07/07/2019 1 Inactive Medrol 4 mg Tab RxNorm: 686868 Tablet(s) PO as directed 03/28/2012 Inactive Synthroid 75 mcg Tab RxNorm: 773064 1 Tablet(s) PO QD 02/14/201001/23 Inactive aspirin 81 mg tablet RxNorm: 204292 1 Tablet(s) PO QD 05/26/2015 090 09/2014 Inactive meclizine 25 mg tablet RxNorm: 591010 1 Tablet(s) PO TID as needed 11/26/2018 11/25/2018 Inactive metoprolol succinate ER 50 mg tablet,extended release 24 hr RxNorm: 567131 1 Tablet(s) PO QAM and 2 tablets in the evening 05/08/2019 05/07/2019 In active Aspirin 81 mg Tab RxNorm: 878672 1 Tablet(s) PO QD 03/31/2013 013 Inactive Vitamin D3 1,000 unit capsule RxNorm: 399060 1 Capsule(s) PO QD 04/201303/30/2013 Inactive Medication Administered No Medication Administered data Immunizations Vaccine Codes Dose Date Status Pneumococcal CVX: 133 0.5 ml 05/26/2015 Results Observation Observation Code Item Item Code Result Date S ervice Location GLYCOSYLATED HEMOGLOBIN TEST 98543 Hgb A1c 10985-9 6.0 % 0 03/01/2022 Unknown MEAN GLUC 4860422 Calc Mean Gluc 126 mg/dL 03/01/2022 Unkn own COMPREHENSIVE METABOLIC 88783 AST 16 U/L 2021 Unknown COMPREHENSIVE METABOLIC 76367 ALT 15 U/L 2021 Unknown COMPREHENSIVE METABOLIC 44034 BUN 18 mg/dL 2021 Unknown COMPREHENSIVE METABOLIC 27034 ALBUMIN 4.3 g/dL 2021 Unknown COMPREHENSIVE METABOLIC 87154 CHLORIDE 104 mmol/L 02/28 Unknown COMPREHENSIVE METABOLIC 62308 Bili Total 0.8 mg/dL 02/28 Unknown COMPREHENSIVE METABOLIC 90293 ALK PHOS 93 U/L 2021 Unknown COMPREHENSIVE METABOLIC 30502 SODIUM 143 mmol/L 02/28 Unknown COMPREHENSIVE METABOLIC 13533 CREATININE 0.82 mg/dL 03/2022 Unknown COMPREHENSIVE METABOLIC 03462 CALCIUM 9.8 mg/dL 2021 Unknown COMPREHENSIVE METABOLIC 80673 POTASSIUM 4.2 mmol/L 02/28 Unknown COMPREHENSIVE METABOLIC 53873 Total Protein 7.7 g/dL Unknown COMPREHENSIVE METABOLIC 38986 Glucose 116 mg/dL 2021 Unknown COMPREHENSIVE METABOLIC 04335 Bicarbonate 26 mmol/L 03/2022 Unknown COMPREHENSIVE METABOLIC 71095 AGAP 13 mmol/L 2021 Unknown FREE T4 62161 T4 Free 1.15 ng/dL 02/28/2022 Unknown THYROID STIMULATING HORMONE 65046 TSH 3.512 uIU/mL 02/28/2022 Unknown [facility] 42837 Cholesterol 158 mg/dL 02/28/2022 Unkno wn [facility] 71129 Triglyceride 78 mg/dL 02/28/2022 Unkn own [facility] 87015 HDL CHOLESTEROL 66 mg/dL 02/28/2022 U nknown [facility] 31943 Chol/HDL Ratio 2.39 ratio 02/28/2022 U nknown [facility] 95119 NON-HDL Chol 92 mg/dL 02/28/2022 Unkn own [facility] 87956 LDL Cholesterol 76 mg/dL [facility]28[facility]22 [facility] [id number] WBC 6.9 10e9/L 02/29/20 22 Unknown COMPLETE BLOOD COUNT [id number] RBC 4.61 10e12/L 2021 Unknown COMPLETE BLOOD COUNT 6174701 HEMOGLOBIN 13.0 g/dL 02/29/20 22 Unknown COMPLETE BLOOD COUNT [id number] HEMATOCRIT 42.1 % 02/29/20 22 Unknown COMPLETE BLOOD COUNT 3036422 MCV 91.3 fL 2 Unknown COMPLETE BLOOD COUNT [id number] MCH 28.2 pg 2 Unknown COMPLETE BLOOD COUNT 8066543 MCHC 30.9 g/dL 2 Unknown COMPLETE BLOOD COUNT 4128523 PLATELET COUNT 276 10e9/L 03/2022 Unknown COMPLETE BLOOD COUNT 1717445 Mean Plt Volume 10.6 fL 03/2022 Unknown COMPLETE BLOOD COUNT [id number] NRBC Absolute 0.00 10e9/L 03/2022 Unknown COMPLETE BLOOD COUNT [id number] Neut Auto 53.0 % 2 Unknown COMPLETE BLOOD COUNT 9684901 NRBC/100 WBC 0.0 2021 Unknown COMPLETE BLOOD COUNT [id number] Lymph Auto 32.0 % 02/29/20 22 Unknown COMPLETE BLOOD COUNT [id number] Perry Auto 11.0 % 2 Unknown COMPLETE BLOOD COUNT 0830410 RDW 14.4 % 2 Unknown COMPLETE BLOOD COUNT 1397448 Eos Auto 2.5 % 2 Unknown COMPLETE BLOOD COUNT 1912174 Baso Auto 1.4 % 2 Unknown COMPLETE BLOOD COUNT [id number] Neutrophil Abs 3.66 10e9/L Unknown COMPLETE BLOOD COUNT 1185526 Imm Gran Auto 0.1 % 02/28 Unknown COMPLETE BLOOD COUNT [id number] Lymphocyte Abs 2.21 10e9/L Unknown COMPLETE BLOOD COUNT [id number] Monocyte Abs 0.76 10e9/L 03/2022 Unknown COMPLETE BLOOD COUNT 2156092 Eosinophil Abs 0.17 10e9/L Unknown COMPLETE BLOOD COUNT 9455503 RDW-SD 47.8 fL 2 Unknown COMPLETE BLOOD COUNT 9471494 Basophil Abs 0.10 10e9/L 03/2022 Unknown COMPLETE BLOOD COUNT [id number] Imm Gran Abs 0.01 10e9/L 03/2022 Unknown GFR CALC 5168738 GFR >60 mL/min 02/28/2022 Unknown THYROID STIMULATING HORMONE 41641 TSH 3.017 uIU/mL 01/31/2021 Unknown COMPLETE BLOOD COUNT 7958180 WBC 6.1 10e9/L 02/01/20 21 Unknown COMPLETE BLOOD COUNT [id number] RBC 4.22 10e12/L 2020 Unknown COMPLETE BLOOD COUNT [id number] HEMOGLOBIN 12.1 g/dL 02/01/20 21 Unknown COMPLETE BLOOD COUNT 3007000 HEMATOCRIT 39.5 % 02/01/20 21 Unknown COMPLETE BLOOD COUNT 5320151 MCV 93.6 fL 1 Unknown COMPLETE BLOOD COUNT [id number] MCH 28.7 pg 1 Unknown COMPLETE BLOOD COUNT 1852193 MCHC 30.6 g/dL 1 Unknown COMPLETE BLOOD COUNT 3941495 PLATELET COUNT 271 10e9/L 06/2021 Unknown COMPLETE BLOOD COUNT 0561309 Mean Plt Volume 11.0 fL 06/2021 Unknown COMPLETE BLOOD COUNT 0196729 Neut Auto 57.3 % 1 Unknown COMPLETE BLOOD COUNT [id number] Lymph Auto 28.3 % 02/01/20 21 Unknown COMPLETE BLOOD COUNT 8344877 Perry Auto 10.9 % 1 Unknown COMPLETE BLOOD COUNT 5334738 RDW 14.4 % 1 Unknown COMPLETE BLOOD COUNT 7191824 Eos Auto 2.8 % 1 Unknown COMPLETE BLOOD COUNT 5184001 Baso Auto 0.7 % 1 Unknown COMPLETE BLOOD COUNT [id number] Neutrophil Abs 3.50 10e9/L Unknown COMPLETE BLOOD COUNT 1339898 Lymphocyte Abs 1.73 10e9/L Unknown COMPLETE BLOOD COUNT 6857412 Monocyte Abs 0.66 10e9/L 01/22 Unknown COMPLETE BLOOD COUNT [id number] Eosinophil Abs 0.17 10e9/L Unknown COMPLETE BLOOD COUNT 2339947 RDW-SD 47.4 fL Unknown COMPLETE BLOOD COUNT [id number] Basophil Abs 0.04 10e9/L 01/22 Unknown GLYCOSYLATED HEMOGLOBIN TEST 05752 Hgb A1c 65129-6 5.9 % 0 01/31/2021 Unknown LIPID GROUP 17800 Cholesterol 151 mg/dL 01/31/2021 Unkno wn LIPID GROUP 78969 Triglyceride 68 mg/dL 01/31/2021 Unkn own LIPID GROUP 41143 HDL CHOLESTEROL 64 mg/dL 01/31/2021 U nknown LIPID GROUP 32737 Chol/HDL Ratio 2.36 ratio 01/31/2021 U nknown LIPID GROUP 65676 NON-HDL Chol 87 mg/dL 01/31/2021 Unkn own LIPID GROUP 62747 LDL Cholesterol 73 mg/dL 01/31/2021 U nknown MEAN GLUC 1103703 Calc Mean Gluc 123 mg/dL 01/31/2021 Unkn own FREE T4 12729 T4 Free 1.11 ng/dL 01/31/2021 Unknown COMPREHENSIVE METABOLIC 87348 AST 16 U/L 2020 Unknown COMPREHENSIVE METABOLIC 91233 ALT 12 U/L 2020 Unknown COMPREHENSIVE METABOLIC 25440 BUN 14 mg/dL 2020 Unknown COMPREHENSIVE METABOLIC 25695 ALBUMIN 4.3 g/dL 2020 Unknown COMPREHENSIVE METABOLIC 37934 CHLORIDE 106 mmol/L 01/31 Unknown COMPREHENSIVE METABOLIC 70375 Bili Total 0.9 mg/dL 01/31 Unknown COMPREHENSIVE METABOLIC 08987 ALK PHOS 96 U/L 2020 Unknown COMPREHENSIVE METABOLIC 48951 SODIUM 144 mmol/L 01/31 Unknown COMPREHENSIVE METABOLIC 17674 CREATININE 0.77 mg/dL 01/22 Unknown COMPREHENSIVE METABOLIC 58884 CALCIUM 9.4 mg/dL 2020 Unknown COMPREHENSIVE METABOLIC 47393 POTASSIUM 4.2 mmol/L 01/31 Unknown COMPREHENSIVE METABOLIC 84445 Total Protein 7.4 g/dL Unknown COMPREHENSIVE METABOLIC 40162 Glucose 94 mg/dL 2020 Unknown COMPREHENSIVE METABOLIC 20823 Bicarbonate 30 mmol/L 01/22 Unknown COMPREHENSIVE METABOLIC 37466 AGAP 8 mmol/L 2020 Unknown GFR CALC 2491150 GFR Non Afr Amr >60 mL/min 01/31/2021 Un known GFR CALC 6101251 GFR Afr Amr >60 mL/min 01/31/2021 Unknow n COMPLETE BLOOD COUNT [id number] WBC 6.9 10e9/L 01/05/20 20 Unknown COMPLETE BLOOD COUNT 4287777 RBC 4.20 10e12/L 2019 Unknown COMPLETE BLOOD COUNT 7058177 HEMOGLOBIN 12.2 g/dL 01/05/20 20 Unknown COMPLETE BLOOD COUNT 6344799 HEMATOCRIT 39.2 % 01/05/20 20 Unknown COMPLETE BLOOD COUNT 5253619 MCV 93.3 fL 0 Unknown COMPLETE BLOOD COUNT 8985783 MCH 29.0 pg 0 Unknown COMPLETE BLOOD COUNT 8203786 MCHC 31.1 g/dL 0 Unknown COMPLETE BLOOD COUNT 7062428 PLATELET COUNT 272 10e9/L Unknown COMPLETE BLOOD COUNT 7321459 Mean Plt Volume 11.0 fL Unknown COMPLETE BLOOD COUNT 8432706 Neut Auto 61.4 % 0 Unknown COMPLETE BLOOD COUNT 9392466 Lymph Auto 22.4 % 01/05/20 20 Unknown COMPLETE BLOOD COUNT 3733156 Perry Auto 11.7 % 0 Unknown COMPLETE BLOOD COUNT 8529870 RDW 14.6 % 0 Unknown COMPLETE BLOOD COUNT 7321808 Eos Auto 3.6 % 0 Unknown COMPLETE BLOOD COUNT 7154060 Baso Auto 0.9 % 0 Unknown COMPLETE BLOOD COUNT 4924477 Neutrophil Abs 4.24 10e9/L Unknown COMPLETE BLOOD COUNT 8499666 Lymphocyte Abs 1.55 10e9/L Unknown COMPLETE BLOOD COUNT 3140795 Monocyte Abs 0.81 10e9/L 12/23 Unknown COMPLETE BLOOD COUNT 0712140 Eosinophil Abs 0.25 10e9/L Unknown COMPLETE BLOOD COUNT 5924003 RDW-SD 48.2 fL 0 Unknown COMPLETE BLOOD COUNT 2053012 Basophil Abs 0.06 10e9/L 12/23 Unknown COMPREHENSIVE METABOLIC 54455 AST 17 U/L 2019 Unknown COMPREHENSIVE METABOLIC 30732 ALT 12 U/L 2019 Unknown COMPREHENSIVE METABOLIC 69929 BUN 18 mg/dL 2019 Unknown COMPREHENSIVE METABOLIC 61490 ALBUMIN 4.5 g/dL 2019 Unknown COMPREHENSIVE METABOLIC 73636 CHLORIDE 101 mmol/L 01/04 Unknown COMPREHENSIVE METABOLIC 37270 Bili Total 0.8 mg/dL 01/04 Unknown COMPREHENSIVE METABOLIC 65502 ALK PHOS 76 U/L 2019 Unknown COMPREHENSIVE METABOLIC 37292 SODIUM 141 mmol/L 01/04 Unknown COMPREHENSIVE METABOLIC 65255 CREATININE 1.02 mg/dL 12/23 Unknown COMPREHENSIVE METABOLIC 64806 CALCIUM 9.5 mg/dL 2019 Unknown COMPREHENSIVE METABOLIC 50489 POTASSIUM 3.9 mmol/L 01/04 Unknown COMPREHENSIVE METABOLIC 96792 Total Protein 7.4 g/dL Unknown COMPREHENSIVE METABOLIC 11652 Glucose 89 mg/dL 2019 Unknown COMPREHENSIVE METABOLIC 30715 Bicarbonate 28 mmol/L 12/23 Unknown COMPREHENSIVE METABOLIC 74702 AGAP 12 mmol/L 2019 Unknown LIPASE 37653 Lipase Lvl 34 IU/L 01/05/2020 Unknown THYROID STIMULATING HORMONE 90738 TSH 3.767 uIU/mL 01/05/2020 Unknown AMYLASE 39095 Amylase Lvl 60 IU/L 01/05/2020 Unknown GFR CALC 4322325 GFR Non Afr Amr 52 mL/min 01/05/2020 Unk nown GFR CALC 3937805 GFR Afr Amr >60 mL/min 01/05/2020 Unknow n FREE T4 33185 T4 Free 1.11 ng/dL 01/05/2020 Unknown GFR CALC 9731501 GFR Non Afr Amr 59 mL/min 12/05/2019 Unk nown GFR CALC 9689808 GFR Afr Amr >60 mL/min 12/05/2019 Unknow n COMPREHENSIVE METABOLIC 68103 AST 15 U/L 2019 Unknown COMPREHENSIVE METABOLIC 82508 ALT 12 U/L 2019 Unknown COMPREHENSIVE METABOLIC 91843 BUN 19 mg/dL 2019 Unknown COMPREHENSIVE METABOLIC 91462 ALBUMIN 4.2 g/dL 2019 Unknown COMPREHENSIVE METABOLIC 90910 CHLORIDE 104 mmol/L 12/04 Unknown COMPREHENSIVE METABOLIC 26351 Bili Total 1.0 mg/dL 12/04 Unknown COMPREHENSIVE METABOLIC 66820 ALK PHOS 78 U/L 2019 Unknown COMPREHENSIVE METABOLIC 51396 SODIUM 145 mmol/L 12/04 Unknown COMPREHENSIVE METABOLIC 01104 CREATININE 0.91 mg/dL 11/22 Unknown COMPREHENSIVE METABOLIC 55137 CALCIUM 9.3 mg/dL 2019 Unknown COMPREHENSIVE METABOLIC 81559 POTASSIUM 3.6 mmol/L 12/04 Unknown COMPREHENSIVE METABOLIC 59524 Total Protein 7.0 g/dL Unknown COMPREHENSIVE METABOLIC 53433 Glucose 96 mg/dL 2019 Unknown COMPREHENSIVE METABOLIC 99076 Bicarbonate 28 mmol/L 11/22 Unknown COMPREHENSIVE METABOLIC 07241 AGAP 13 mmol/L 2019 Unknown COMPREHENSIVE METABOLIC 38513 AST 15 U/L 2019 Unknown COMPREHENSIVE METABOLIC 82040 ALT 11 U/L 2019 Unknown COMPREHENSIVE METABOLIC 90975 BUN 14 mg/dL 2019 Unknown COMPREHENSIVE METABOLIC 53613 ALBUMIN 4.3 g/dL 2019 Unknown COMPREHENSIVE METABOLIC 31973 CHLORIDE 106 mmol/L 11/05 Unknown COMPREHENSIVE METABOLIC 62219 Bili Total 0.7 mg/dL 11/05 Unknown COMPREHENSIVE METABOLIC 60446 ALK PHOS 80 U/L 2019 Unknown COMPREHENSIVE METABOLIC 61048 SODIUM 145 mmol/L 11/05 Unknown COMPREHENSIVE METABOLIC 49003 CREATININE 0.97 mg/dL 10/25 Unknown COMPREHENSIVE METABOLIC 71517 CALCIUM 9.5 mg/dL 2019 Unknown COMPREHENSIVE METABOLIC 82992 POTASSIUM 3.9 mmol/L 11/05 Unknown COMPREHENSIVE METABOLIC 09157 Total Protein 7.0 g/dL Unknown COMPREHENSIVE METABOLIC 64028 Glucose 103 mg/dL 2019 Unknown COMPREHENSIVE METABOLIC 66773 Bicarbonate 29 mmol/L 10/25 Unknown COMPREHENSIVE METABOLIC 00558 AGAP 10 mmol/L 2019 Unknown GFR CALC 7299980 GFR Non Afr Amr 55 mL/min 11/05/2019 Unk nown GFR CALC 2295469 GFR Afr Amr >60 mL/min 11/05/2019 Unknow n FREE T4 79222 T4 Free 1.34 ng/dL 10/21/2019 Unknown COMPLETE BLOOD COUNT 7792427 WBC 7.2 10e9/L 10/21/19 20 Unknown COMPLETE BLOOD COUNT 3764784 RBC 4.17 10e12/L 2019 Unknown COMPLETE BLOOD COUNT 1243105 HEMOGLOBIN 12.1 g/dL 10/21/19 20 Unknown COMPLETE BLOOD COUNT 8764152 HEMATOCRIT 39.0 % 01/28/20 20 Unknown COMPLETE BLOOD COUNT 3323093 MCV 93.5 fL 0 Unknown COMPLETE BLOOD COUNT 0311015 MCH 29.0 pg 0 Unknown COMPLETE BLOOD COUNT 5493188 MCHC 31.0 g/dL 0 Unknown COMPLETE BLOOD COUNT 5294136 PLATELET COUNT 239 10e9/L Unknown COMPLETE BLOOD COUNT 8770036 Mean Plt Volume 11.7 fL Unknown COMPLETE BLOOD COUNT 3586176 Neut Auto 63.7 % 0 Unknown COMPLETE BLOOD COUNT 6291628 Lymph Auto 21.0 % 10/21/19 20 Unknown COMPLETE BLOOD COUNT 6064615 Perry Auto 11.1 % 0 Unknown COMPLETE BLOOD COUNT 2337385 RDW 13.6 % 0 Unknown COMPLETE BLOOD COUNT 9623743 Eos Auto 3.6 % 0 Unknown COMPLETE BLOOD COUNT 4023769 Baso Auto 0.6 % 0 Unknown COMPLETE BLOOD COUNT 9501783 Neutrophil Abs 4.59 10e9/L Unknown COMPLETE BLOOD COUNT 1576449 Lymphocyte Abs 1.51 10e9/L Unknown COMPLETE BLOOD COUNT 2872037 Monocyte Abs 0.80 10e9/L 09/25 Unknown COMPLETE BLOOD COUNT 2348422 Eosinophil Abs 0.26 10e9/L Unknown COMPLETE BLOOD COUNT 7505894 RDW-SD 45.1 fL 0 Unknown COMPLETE BLOOD COUNT 1306530 Basophil Abs 0.04 10e9/L 09/25 Unknown GFR CALC 6184806 GFR Non Afr Amr 42 mL/min 10/21/2019 Unk nown GFR CALC 2248635 GFR Afr Amr 50 mL/min 10/21/2019 Unknown COMPREHENSIVE METABOLIC 00267 AST 16 U/L 2019 Unknown COMPREHENSIVE METABOLIC 37156 ALT 10 U/L 2019 Unknown COMPREHENSIVE METABOLIC 91073 BUN 20 mg/dL 2019 Unknown COMPREHENSIVE METABOLIC 31672 ALBUMIN 4.4 g/dL 2019 Unknown COMPREHENSIVE METABOLIC 67240 CHLORIDE 102 mmol/L 10/21 Unknown COMPREHENSIVE METABOLIC 46731 Bili Total 0.8 mg/dL 10/21 Unknown COMPREHENSIVE METABOLIC 21442 ALK PHOS 85 U/L 2019 Unknown COMPREHENSIVE METABOLIC 75720 SODIUM 144 mmol/L 10/21 Unknown COMPREHENSIVE METABOLIC 84282 CREATININE 1.24 mg/dL 09/25 Unknown COMPREHENSIVE METABOLIC 80528 CALCIUM 9.8 mg/dL 2019 Unknown COMPREHENSIVE METABOLIC 68810 POTASSIUM 4.2 mmol/L 10/21 Unknown COMPREHENSIVE METABOLIC 95435 Total Protein 7.3 g/dL Unknown COMPREHENSIVE METABOLIC 42376 Glucose 98 mg/dL 2019 Unknown COMPREHENSIVE METABOLIC 95661 Bicarbonate 31 mmol/L 09/25 Unknown COMPREHENSIVE METABOLIC 53528 AGAP 11 mmol/L 2019 Unknown THYROID STIMULATING HORMONE 14930 TSH 2.693 uIU/mL 10/21/2019 Unknown LIPID GROUP 67592 Cholesterol 142 mg/dL 10/21/2019 Unkno wn LIPID GROUP 55992 Triglyceride 120 mg/dL 10/21/2019 Unkn own LIPID GROUP 38422 HDL CHOLESTEROL 54 mg/dL 10/21/2019 U nknown LIPID GROUP 61649 Chol/HDL Ratio 2.63 ratio 10/21/2019 U nknown LIPID GROUP 67999 NON-HDL Chol 88 mg/dL 10/21/2019 Unkn own LIPID GROUP 45762 LDL Cholesterol 64 mg/dL 10/21/2019 U nknown GFR CALC [id number] GFR Non Afr Amr >60 mL/min 04/04/2019 Un known GFR CALC [id number] GFR Afr Amr >60 mL/min 04/04/2019 Unknow n COMPLETE BLOOD COUNT [id number] WBC 5.9 10e9/L 04/04/20 19 Unknown COMPLETE BLOOD COUNT 9458009 RBC 4.29 10e12/L 2018 Unknown COMPLETE BLOOD COUNT 5535408 HEMOGLOBIN 12.3 g/dL 04/04/20 19 Unknown COMPLETE BLOOD COUNT [id number] HEMATOCRIT 39.2 % 04/04/20 19 Unknown COMPLETE BLOOD COUNT 4008424 MCV 91.4 fL 9 Unknown COMPLETE BLOOD COUNT [id number] MCH 28.7 pg 9 Unknown COMPLETE BLOOD COUNT 7251250 MCHC 31.4 g/dL 9 Unknown COMPLETE BLOOD COUNT 7266347 PLATELET COUNT 225 10e9/L 08/2019 Unknown COMPLETE BLOOD COUNT 7447084 Mean Plt Volume 11.0 fL 08/2019 Unknown COMPLETE BLOOD COUNT 9842087 Neut Auto 57.2 % 9 Unknown COMPLETE BLOOD COUNT [id number] Lymph Auto 27.3 % 04/04/20 19 Unknown COMPLETE BLOOD COUNT [id number] Perry Auto 11.2 % 9 Unknown COMPLETE BLOOD COUNT 3116310 RDW 14.3 % 9 Unknown COMPLETE BLOOD COUNT 4322114 Eos Auto 3.4 % 9 Unknown COMPLETE BLOOD COUNT 9736171 Baso Auto 0.9 % 9 Unknown COMPLETE BLOOD COUNT [id number] Neutrophil Abs 3.37 10e9/L Unknown COMPLETE BLOOD COUNT [id number] Lymphocyte Abs 1.61 10e9/L Unknown COMPLETE BLOOD COUNT [id number] Monocyte Abs 0.66 10e9/L 03/24 Unknown COMPLETE BLOOD COUNT [id number] Eosinophil Abs 0.20 10e9/L Unknown COMPLETE BLOOD COUNT [id number] RDW-SD 46.6 fL 9 Unknown COMPLETE BLOOD COUNT [id number] Basophil Abs 0.05 10e9/L 03/24 Unknown THYROID STIMULATING HORMONE 34135 TSH 2.068 uIU/mL 04/04/2019 Unknown COMPREHENSIVE METABOLIC 44900 AST 17 U/L 2018 Unknown COMPREHENSIVE METABOLIC 56345 ALT 12 U/L 2018 Unknown COMPREHENSIVE METABOLIC 01746 BUN 17 mg/dL 2018 Unknown COMPREHENSIVE METABOLIC 02608 ALBUMIN 4.3 g/dL 2018 Unknown COMPREHENSIVE METABOLIC 46487 CHLORIDE 107 mmol/L 04/04 Unknown COMPREHENSIVE METABOLIC 85855 Bili Total 1.1 mg/dL 04/04 Unknown COMPREHENSIVE METABOLIC 60143 ALK PHOS 74 U/L 2018 Unknown COMPREHENSIVE METABOLIC 33830 SODIUM 144 mmol/L 04/04 Unknown COMPREHENSIVE METABOLIC 51563 CREATININE 0.70 mg/dL 03/24 Unknown COMPREHENSIVE METABOLIC 03690 CALCIUM 9.5 mg/dL 2018 Unknown COMPREHENSIVE METABOLIC 01168 POTASSIUM 4.1 mmol/L 04/04 Unknown COMPREHENSIVE METABOLIC 80110 Total Protein 6.8 g/dL Unknown COMPREHENSIVE METABOLIC 57506 Glucose 95 mg/dL 2018 Unknown COMPREHENSIVE METABOLIC 96092 Bicarbonate 29 mmol/L 03/24 Unknown COMPREHENSIVE METABOLIC 02540 AGAP 8 mmol/L 2018 Unknown FREE T4 82372 T4 Free 1.09 ng/dL 04/04/2019 Unknown LIPID GROUP 95492 Cholesterol 149 mg/dL 04/04/2019 Unkno wn LIPID GROUP 15545 Triglyceride 70 mg/dL 04/04/2019 Unkn own LIPID GROUP 73356 HDL CHOLESTEROL 62 mg/dL 04/04/2019 U nknown LIPID GROUP 83613 Chol/HDL Ratio 2.40 ratio 04/04/2019 U nknown LIPID GROUP 35352 NON-HDL Chol 87 mg/dL 04/04/2019 Unkn own LIPID GROUP 18974 LDL Cholesterol 73 mg/dL 04/04/2019 U nknown THYROID STIMULATING HORMONE 78780 TSH 3.698 uIU/mL 10/08/2018 Unknown FREE T4 37873 T4 Free 1.24 ng/dL 10/08/2018 Unknown GFR CALC [id number] GFR Non Afr Amr >60 mL/min 10/07/2018 Un known GFR CALC [id number] GFR Afr Amr >60 mL/min 10/07/2018 Unknow n COMPLETE BLOOD COUNT [id number] WBC 6.3 10e9/L 10/07/19 19 Unknown COMPLETE BLOOD COUNT [id number] RBC 4.22 10e12/L 2018 Unknown COMPLETE BLOOD COUNT [id number] HEMOGLOBIN 12.2 g/dL 10/07/19 19 Unknown COMPLETE BLOOD COUNT [id number] HEMATOCRIT 39.4 % 10/07/19 19 Unknown COMPLETE BLOOD COUNT [id number] MCV 93.4 fL 9 Unknown COMPLETE BLOOD COUNT [id number] MCH 28.9 pg 9 Unknown COMPLETE BLOOD COUNT 1028104 MCHC 31.0 g/dL 9 Unknown COMPLETE BLOOD COUNT [id number] PLATELET COUNT 231 10e9/L Unknown COMPLETE BLOOD COUNT 8181954 Mean Plt Volume 11.2 fL Unknown COMPLETE BLOOD COUNT [id number] Neut Auto 55.7 % 9 Unknown COMPLETE BLOOD COUNT [id number] Lymph Auto 30.3 % 10/07/19 19 Unknown COMPLETE BLOOD COUNT [id number] Perry Auto 9.6 % 9 Unknown COMPLETE BLOOD COUNT 3007978 RDW 14.0 % 9 Unknown COMPLETE BLOOD COUNT [id number] Eos Auto 3.5 % 9 Unknown COMPLETE BLOOD COUNT [id number] Baso Auto 0.9 % 9 Unknown COMPLETE BLOOD COUNT 1578203 Neutrophil Abs 3.51 10e9/L Unknown COMPLETE BLOOD COUNT [id number] Lymphocyte Abs 1.91 10e9/L Unknown COMPLETE BLOOD COUNT [id number] Monocyte Abs 0.60 10e9/L 09/24 Unknown COMPLETE BLOOD COUNT [id number] Eosinophil Abs 0.22 10e9/L Unknown COMPLETE BLOOD COUNT [id number] RDW-SD 46.1 fL 9 Unknown COMPLETE BLOOD COUNT [id number] Basophil Abs 0.06 10e9/L 09/24 Unknown COMPREHENSIVE METABOLIC 66389 AST 14 U/L 2018 Unknown COMPREHENSIVE METABOLIC 38775 ALT 10 U/L 2018 Unknown COMPREHENSIVE METABOLIC 03967 BUN 21 mg/dL 2018 Unknown COMPREHENSIVE METABOLIC 19169 ALBUMIN 4.4 g/dL 2018 Unknown COMPREHENSIVE METABOLIC 24433 CHLORIDE 105 mmol/L 10/07 Unknown COMPREHENSIVE METABOLIC 60072 Bili Total 0.7 mg/dL 10/07 Unknown COMPREHENSIVE METABOLIC 16252 ALK PHOS 80 U/L 2018 Unknown COMPREHENSIVE METABOLIC 43425 SODIUM 143 mmol/L 10/07 Unknown COMPREHENSIVE METABOLIC 88295 CREATININE 0.67 mg/dL 09/24 Unknown COMPREHENSIVE METABOLIC 02546 CALCIUM 9.3 mg/dL 2018 Unknown COMPREHENSIVE METABOLIC 42635 POTASSIUM 3.8 mmol/L 10/07 Unknown COMPREHENSIVE METABOLIC 34593 Total Protein 7.0 g/dL Unknown COMPREHENSIVE METABOLIC 63021 Glucose 98 mg/dL 2018 Unknown COMPREHENSIVE METABOLIC 80188 Bicarbonate 32 mmol/L 09/24 Unknown COMPREHENSIVE METABOLIC 01971 AGAP 6 mmol/L 2018 Unknown LIPID GROUP 97010 Cholesterol 160 mg/dL 10/07/2018 Unkno wn LIPID GROUP 31308 Triglyceride 101 mg/dL 10/07/2018 Unkn own LIPID GROUP 57382 HDL CHOLESTEROL 63 mg/dL 10/07/2018 U nknown LIPID GROUP 43693 Chol/HDL Ratio 2.54 ratio 10/07/2018 U nknown LIPID GROUP 11661 NON-HDL Chol 97 mg/dL 10/07/2018 Unkn own LIPID GROUP 25448 LDL Cholesterol 77 mg/dL 10/07/2018 U nknown MEAN GLUC 6454013 Calc Mean Gluc 114 mg/dL 10/07/2018 Unkn own GLYCOSYLATED HEMOGLOBIN TEST 54215 Hgb A1c 79653-4 5.6 % 0 10/07/2018 Unknown FREE T4 98660 T4 Free 1.21 ng/dL 02/14/2018 Unknown THYROID STIMULATING HORMONE 62241 TSH 2.977 uIU/mL 02/14/2018 Unknown COMPLETE BLOOD COUNT [id number] WBC 5.6 10e9/L 02/14/20 18 Unknown COMPLETE BLOOD COUNT [id number] RBC 4.23 10e12/L 2017 Unknown COMPLETE BLOOD COUNT [id number] HEMOGLOBIN 12.4 g/dL 02/14/20 18 Unknown COMPLETE BLOOD COUNT [id number] HEMATOCRIT 39.1 % 02/14/20 18 Unknown COMPLETE BLOOD COUNT 2118024 MCV 92.4 fL 8 Unknown COMPLETE BLOOD COUNT 8447687 MCH 29.3 pg 8 Unknown COMPLETE BLOOD COUNT 3919502 MCHC 31.7 g/dL 8 Unknown COMPLETE BLOOD COUNT 8125964 PLATELET COUNT 268 10e9/L Unknown COMPLETE BLOOD COUNT 1371802 Mean Plt Volume 11.0 fL Unknown COMPLETE BLOOD COUNT 8887961 Neut Auto 52.1 % 8 Unknown COMPLETE BLOOD COUNT 0632710 Lymph Auto 32.0 % 02/14/20 18 Unknown COMPLETE BLOOD COUNT 2295813 Perry Auto 11.8 % 8 Unknown COMPLETE BLOOD COUNT 9241367 RDW 14.6 % 8 Unknown COMPLETE BLOOD COUNT 7956297 Eos Auto 3.2 % 8 Unknown COMPLETE BLOOD COUNT 8581647 Baso Auto 0.9 % 8 Unknown COMPLETE BLOOD COUNT 6154028 Neutrophil Abs 2.92 10e9/L Unknown COMPLETE BLOOD COUNT 1255710 Lymphocyte Abs 1.79 10e9/L Unknown COMPLETE BLOOD COUNT [id number] Monocyte Abs 0.66 10e9/L 01/23 Unknown COMPLETE BLOOD COUNT [id number] Eosinophil Abs 0.18 10e9/L Unknown COMPLETE BLOOD COUNT 7078871 RDW-SD 48.2 fL 8 Unknown COMPLETE BLOOD COUNT [id number] Basophil Abs 0.05 10e9/L 01/23 Unknown GFR CALC 1338773 GFR Non Afr Amr >60 mL/min 02/13/2018 Un known GFR CALC 2297162 GFR Afr Amr >60 mL/min 02/13/2018 Unknow n COMPREHENSIVE METABOLIC 82087 AST 18 U/L 2017 Unknown COMPREHENSIVE METABOLIC 50333 ALT 13 U/L 2017 Unknown COMPREHENSIVE METABOLIC 99412 BUN 14 mg/dL 2017 Unknown COMPREHENSIVE METABOLIC 05240 ALBUMIN 4.3 g/dL 2017 Unknown COMPREHENSIVE METABOLIC 94087 CHLORIDE 108 mmol/L 02/13 Unknown COMPREHENSIVE METABOLIC 33936 Bili Total 0.8 mg/dL 02/13 Unknown COMPREHENSIVE METABOLIC 58582 ALK PHOS 82 U/L 2017 Unknown COMPREHENSIVE METABOLIC 78701 SODIUM 144 mmol/L 02/13 Unknown COMPREHENSIVE METABOLIC 07880 CREATININE 0.67 mg/dL 01/23 Unknown COMPREHENSIVE METABOLIC 74114 CALCIUM 9.4 mg/dL 2017 Unknown COMPREHENSIVE METABOLIC 98527 POTASSIUM 4.1 mmol/L 02/13 Unknown COMPREHENSIVE METABOLIC 54486 Total Protein 6.9 g/dL Unknown COMPREHENSIVE METABOLIC 95530 Glucose 103 mg/dL 2017 Unknown COMPREHENSIVE METABOLIC 45113 Bicarbonate 27 mmol/L 01/23 Unknown COMPREHENSIVE METABOLIC 33976 AGAP 9 mmol/L 2017 Unknown LIPID GROUP 76358 Cholesterol 169 mg/dL 10/15/2017 Unkno wn LIPID GROUP 44834 Triglyceride 99 mg/dL 10/15/2017 Unkn own LIPID GROUP 11329 HDL CHOLESTEROL 69 10/15/2017 U nknown LIPID GROUP 34992 Chol/HDL Ratio 2.45 ratio 10/15/2017 U nknown LIPID GROUP 78178 NON-HDL Chol 100 mg/dL 10/15/2017 Unkn own LIPID GROUP 21155 LDL Cholesterol 80 mg/dL 10/15/2017 U nknown COMPREHENSIVE METABOLIC 20178 AST 17 U/L 2017 Unknown COMPREHENSIVE METABOLIC 32338 ALT 13 U/L 2017 Unknown COMPREHENSIVE METABOLIC 22461 BUN 22 mg/dL 2017 Unknown COMPREHENSIVE METABOLIC 49611 ALBUMIN 4.5 g/dL 2017 Unknown COMPREHENSIVE METABOLIC 28366 CHLORIDE 99 mmol/L 2017 Unknown COMPREHENSIVE METABOLIC 64990 Bili Total 0.8 mg/dL 10/15 Unknown COMPREHENSIVE METABOLIC 67483 ALK PHOS 78 U/L 2017 Unknown COMPREHENSIVE METABOLIC 94943 SODIUM 150 mmol/L 10/15 Unknown COMPREHENSIVE METABOLIC 78589 CREATININE 0.73 mg/dL 09/25 Unknown COMPREHENSIVE METABOLIC 23427 CALCIUM 9.5 mg/dL 2017 Unknown COMPREHENSIVE METABOLIC 41848 POTASSIUM 4.2 mmol/L 10/15 Unknown COMPREHENSIVE METABOLIC 63707 Total Protein 7.2 g/dL Unknown COMPREHENSIVE METABOLIC 97645 Glucose 96 mg/dL 2017 Unknown COMPREHENSIVE METABOLIC 89500 Bicarbonate 29 mmol/L 09/25 Unknown COMPREHENSIVE METABOLIC 77024 AGAP 22 mmol/L 2017 Unknown GFR CALC 9203021 GFR Non Afr Amr >60 mL/min 10/15/2017 Un known GFR CALC 0895327 GFR Afr Amr >60 mL/min 10/15/2017 Unknow n THYROID STIMULATING HORMONE 74341 TSH 4.502 uIU/mL 10/15/2017 Unknown FREE T4 27234 T4 Free 1.44 ng/dL 10/15/2017 Unknown VITAMIN B 12 85635 VITAMIN B12 698 pg/mL 10/15/2017 Unkn own COMPLETE BLOOD COUNT 4227883 WBC 6.3 10e9/L 10/15/19 18 Unknown COMPLETE BLOOD COUNT 5100324 RBC 4.37 10e12/L 2017 Unknown COMPLETE BLOOD COUNT 1481070 HEMOGLOBIN 12.6 g/dL 10/15/19 18 Unknown COMPLETE BLOOD COUNT 9386146 HEMATOCRIT 40.3 % 10/15/19 18 Unknown COMPLETE BLOOD COUNT 5679865 MCV 92.2 fL 8 Unknown COMPLETE BLOOD COUNT 8705081 MCH 28.8 pg 8 Unknown COMPLETE BLOOD COUNT 5943563 MCHC 31.3 g/dL 8 Unknown COMPLETE BLOOD COUNT 8718323 PLATELET COUNT 256 10e9/L Unknown COMPLETE BLOOD COUNT 9375645 Mean Plt Volume 11.1 fL Unknown COMPLETE BLOOD COUNT 6378837 Neut Auto 54.8 % 8 Unknown COMPLETE BLOOD COUNT 6294131 Lymph Auto 30.5 % 10/15/19 18 Unknown COMPLETE BLOOD COUNT [id number] Perry Auto 10.4 % 8 Unknown COMPLETE BLOOD COUNT 3179353 RDW 14.0 % 8 Unknown COMPLETE BLOOD COUNT 4193633 Eos Auto 3.8 % 8 Unknown COMPLETE BLOOD COUNT 4912480 Baso Auto 0.5 % 8 Unknown COMPLETE BLOOD COUNT 3797967 Neutrophil Abs 3.45 10e9/L Unknown COMPLETE BLOOD COUNT 5701660 Lymphocyte Abs 1.92 10e9/L Unknown COMPLETE BLOOD COUNT 6786576 Monocyte Abs 0.66 10e9/L 09/25 Unknown COMPLETE BLOOD COUNT 5341798 Eosinophil Abs 0.24 10e9/L Unknown COMPLETE BLOOD COUNT 7163827 RDW-SD 46.1 fL 8 Unknown COMPLETE BLOOD COUNT 3662794 Basophil Abs 0.03 10e9/L 09/25 Unknown VITAMIN B 12 59415 VITAMIN B12 823 pg/mL 03/30/2017 Unkn own VITAMIN B 12 46153 VITAMIN B12 321 pg/mL 12/18/2016 Unkn own COMPLETE BLOOD COUNT 2051203 WBC 6.8 10e9/L 12/12/19 17 Unknown COMPLETE BLOOD COUNT [id number] RBC 4.37 10e12/L 2016 Unknown COMPLETE BLOOD COUNT 0768268 HEMOGLOBIN 12.5 g/dL 12/12/19 17 Unknown COMPLETE BLOOD COUNT 1482018 HEMATOCRIT 39.3 % 12/12/19 17 Unknown COMPLETE BLOOD COUNT 3371875 MCV 89.9 fL 7 Unknown COMPLETE BLOOD COUNT 6520332 MCH 28.6 pg 7 Unknown COMPLETE BLOOD COUNT 5027222 MCHC 31.8 g/dL 7 Unknown COMPLETE BLOOD COUNT 7313407 PLATELET COUNT 248 10e9/L Unknown COMPLETE BLOOD COUNT 6674975 Mean Plt Volume 10.9 fL Unknown COMPLETE BLOOD COUNT 2765272 Neut Auto 52.0 % 7 Unknown COMPLETE BLOOD COUNT 3389994 Lymph Auto 33.4 % 12/12/19 17 Unknown COMPLETE BLOOD COUNT 1152657 Perry Auto 10.1 % 7 Unknown COMPLETE BLOOD COUNT 3503525 RDW 14.6 % 7 Unknown COMPLETE BLOOD COUNT 5832479 Eos Auto 3.8 % 7 Unknown COMPLETE BLOOD COUNT 1186700 Baso Auto 0.7 % 7 Unknown COMPLETE BLOOD COUNT 0318630 Neutrophil Abs 3.54 10e9/L Unknown COMPLETE BLOOD COUNT 1435388 Lymphocyte Abs 2.27 10e9/L Unknown COMPLETE BLOOD COUNT [id number] Monocyte Abs 0.69 10e9/L 11/23 Unknown COMPLETE BLOOD COUNT [id number] Eosinophil Abs 0.26 10e9/L Unknown COMPLETE BLOOD COUNT 9208972 RDW-SD 47.4 fL 7 Unknown COMPLETE BLOOD COUNT 5827974 Basophil Abs 0.05 10e9/L 11/23 Unknown COMPREHENSIVE METABOLIC 52420 AST 16 U/L 2016 Unknown COMPREHENSIVE METABOLIC 24815 ALT 12 U/L 2016 Unknown COMPREHENSIVE METABOLIC 18856 BUN 22 mg/dL 2016 Unknown COMPREHENSIVE METABOLIC 53899 ALBUMIN 4.2 g/dL 2016 Unknown COMPREHENSIVE METABOLIC 62352 CHLORIDE 104 mmol/L 12/11 Unknown COMPREHENSIVE METABOLIC 62969 Bili Total 0.7 mg/dL 12/11 Unknown COMPREHENSIVE METABOLIC 52588 ALK PHOS 78 U/L 2016 Unknown COMPREHENSIVE METABOLIC 86285 SODIUM 143 mmol/L 12/11 Unknown COMPREHENSIVE METABOLIC 35050 CREATININE 0.69 mg/dL 11/23 Unknown COMPREHENSIVE METABOLIC 61710 CALCIUM 9.5 mg/dL 2016 Unknown COMPREHENSIVE METABOLIC 10968 POTASSIUM 3.9 mmol/L 12/11 Unknown COMPREHENSIVE METABOLIC 35536 Total Protein 7.1 g/dL Unknown COMPREHENSIVE METABOLIC 37291 Glucose 103 mg/dL 2016 Unknown COMPREHENSIVE METABOLIC 13354 Bicarbonate 30 mmol/L 11/23 Unknown COMPREHENSIVE METABOLIC 77325 AGAP 9 mmol/L 2016 Unknown GFR CALC 5785476 GFR Non Afr Amr >60 mL/min 12/11/2016 Un known GFR CALC 6801569 GFR Afr Amr >60 mL/min 12/11/2016 Unknow n MEAN GLUC 0658403 Calc Mean Gluc 120 mg/dL 12/11/2016 Unkn own LIPID GROUP 89746 Cholesterol 162 mg/dL 12/11/2016 Unkno wn LIPID GROUP 32962 Triglyceride 80 mg/dL 12/11/2016 Unkn own LIPID GROUP 37653 HDL CHOLESTEROL 65 mg/dL 12/11/2016 U nknown LIPID GROUP 91925 Chol/HDL Ratio 2.49 ratio 12/11/2016 U nknown LIPID GROUP 58137 NON-HDL Chol 97 mg/dL 12/11/2016 Unkn own LIPID GROUP 33311 LDL Cholesterol 81 mg/dL 12/11/2016 U nknown FREE T4 19196 T4 Free 1.46 ng/dL 12/11/2016 Unknown THYROID STIMULATING HORMONE 41854 TSH 2.578 uIU/mL 12/11/2016 Unknown GLYCOSYLATED HEMOGLOBIN TEST 41017 Hgb A1c 47471-0 5.8 % 0 12/11/2016 Unknown FREE T4 95754 FREE T4 1.68 NG/DL 05/27/2015 Unknown LIPID GROUP 90075 HDL TEST 67 MG/DL 05/27/2015 Unknown LIPID GROUP 21995 TRIG 92 MG/DL 05/27/2015 Unknown LIPID GROUP 52684 TEST LDL 84 MG/DL 05/27/2015 Unknown LIPID GROUP 25500 CHOL 169 MG/DL 05/27/2015 Unknown LIPID GROUP 19761 RCHOL/HDL 2.52 RATIO 05/27/2015 Unknow n LIPID GROUP 00640 NON-HDL CH 102 MG/DL 05/27/2015 Unknow n GLYCOSYLATED HEMOGLOBIN TEST 75370 A1C HPLC 21866-5 5.9 % 0 05/27/2015 Unknown VITAMIN B 12 27218 VIT B 12 308 PG/ML 05/27/2015 Unknow n GFR CALC 7388178 GFR AA >60 ML/MIN 05/27/2015 Unknown GFR CALC 2585006 GFR NON-AA >60 ML/MIN 05/27/2015 Unknown COMPREHENSIVE METABOLIC 08744 AST 20 U/L 2014 Unknown COMPREHENSIVE METABOLIC 21652 ALT 15 IU/L 2014 Unknown COMPREHENSIVE METABOLIC 97402 BUN 17 MG/DL 2014 Unknown COMPREHENSIVE METABOLIC 68514 ALBUMIN 4.3 GM/DL 2014 Unknown COMPREHENSIVE METABOLIC 06650 CHLORIDE 107 MMOL/L 05/27 Unknown COMPREHENSIVE METABOLIC 14678 BILI TOT 0.9 MG/DL 2014 Unknown COMPREHENSIVE METABOLIC 71590 ALK PHOS 85 U/L 2014 Unknown COMPREHENSIVE METABOLIC 27610 SODIUM 144 MMOL/L 05/27 Unknown COMPREHENSIVE METABOLIC 95227 CREATININE 0.76 MG/DL 11/2014 Unknown COMPREHENSIVE METABOLIC 45769 CALCIUM 9.5 MG/DL 2014 Unknown COMPREHENSIVE METABOLIC 14610 POTASSIUM 4.2 MMOL/L 05/27 Unknown COMPREHENSIVE METABOLIC 12733 PROT TOT 7.1 GM/DL 2014 Unknown COMPREHENSIVE METABOLIC 36157 Glucose 95 MG/DL 2014 Unknown COMPREHENSIVE METABOLIC 61708 BICARB 30 MMOL/L 2014 Unknown COMPREHENSIVE METABOLIC 48404 ANION GAP 7 MEQ/L 2014 Unknown COMPLETE BLOOD COUNT 8867113 WBC 6.5 10e9/L 05/27/20 15 Unknown COMPLETE BLOOD COUNT 5530165 RBC 4.35 10e12/L 2014 Unknown COMPLETE BLOOD COUNT 2615889 HGB 12.4 g/dL 5 Unknown COMPLETE BLOOD COUNT 3293709 HCT DET 39.3 % 5 Unknown COMPLETE BLOOD COUNT 5510478 MCV 90.3 fL 5 Unknown COMPLETE BLOOD COUNT 1118600 MCH 28.5 pg 5 Unknown COMPLETE BLOOD COUNT 5393393 MCHC 31.6 g/dL 5 Unknown COMPLETE BLOOD COUNT 5936131 PLT 245 10e9/L 05/27/20 15 Unknown COMPLETE BLOOD COUNT 7113326 MPV 11.1 fL 5 Unknown COMPLETE BLOOD COUNT 6082718 CRISTI % 53.9 % 5 Unknown COMPLETE BLOOD COUNT 2204337 LY % 30.8 % 5 Unknown COMPLETE BLOOD COUNT 0618629 MON % 11.2 % 5 Unknown COMPLETE BLOOD COUNT 4204124 EOS % 3.2 % 5 Unknown COMPLETE BLOOD COUNT 3961862 BASO % 0.9 % 5 Unknown COMPLETE BLOOD COUNT 7967765 RDW 14.5 % 5 Unknown COMPLETE BLOOD COUNT 2665496 ABS CRISTI 3.50 10e9/L 015 Unknown COMPLETE BLOOD COUNT 4406124 ABS LYMPH 2.00 10e9/L 015 Unknown COMPLETE BLOOD COUNT 7974875 ABS MONO 0.73 10e9/L 015 Unknown COMPLETE BLOOD COUNT 8709140 ABS EOS 0.21 10e9/L 015 Unknown COMPLETE BLOOD COUNT 8391839 ABS BASO 0.06 10e9/L 015 Unknown COMPLETE BLOOD COUNT 7955047 RDW-SD 46.3 fL 5 Unknown THYROID STIMULATING HORMONE 65308 TSH 2.909 uIU/ML 05/27/2015 Unknown IRON 75258 IRON TEST 63 UG/DL 12/15/2014 Unknown COMPLETE BLOOD COUNT 0792102 WBC 6.3 10e9/L 12/16/19 15 Unknown COMPLETE BLOOD COUNT 1580750 RBC 4.37 10e12/L 2014 Unknown COMPLETE BLOOD COUNT 7818579 HGB 12.6 g/dL 5 Unknown COMPLETE BLOOD COUNT 3987132 HCT DET 39.2 % 5 Unknown COMPLETE BLOOD COUNT 7948079 MCV 89.7 fL 5 Unknown COMPLETE BLOOD COUNT 3891156 MCH 28.8 pg 5 Unknown COMPLETE BLOOD COUNT 8062213 MCHC 32.1 g/dL 5 Unknown COMPLETE BLOOD COUNT 4456953 PLT 252 10e9/L 12/16/19 15 Unknown COMPLETE BLOOD COUNT 3854526 MPV 10.8 fL 5 Unknown COMPLETE BLOOD COUNT 9135703 CRISTI % 60.5 % 5 Unknown COMPLETE BLOOD COUNT 6603594 LY % 24.4 % 5 Unknown COMPLETE BLOOD COUNT 8576449 MON % 11.8 % 5 Unknown COMPLETE BLOOD COUNT 3299878 EOS % 2.7 % 5 Unknown COMPLETE BLOOD COUNT 4168254 BASO % 0.6 % 5 Unknown COMPLETE BLOOD COUNT 3700843 RDW 14.0 % 5 Unknown COMPLETE BLOOD COUNT 3229950 ABS CRISTI 3.81 10e9/L 015 Unknown COMPLETE BLOOD COUNT 7110194 ABS LYMPH 1.54 10e9/L 015 Unknown COMPLETE BLOOD COUNT 3111943 ABS MONO 0.74 10e9/L 015 Unknown COMPLETE BLOOD COUNT 7134923 ABS EOS 0.17 10e9/L 015 Unknown COMPLETE BLOOD COUNT 6301064 ABS BASO 0.04 10e9/L 015 Unknown COMPLETE BLOOD COUNT 8841907 RDW-SD 44.6 fL 5 Unknown GFR CALC 2149539 GFR AA >60 ML/MIN 11/26/2014 Unknown GFR CALC 5144666 GFR NON-AA >60 ML/MIN 11/26/2014 Unknown COMPREHENSIVE METABOLIC 13697 AST 16 U/L 2014 Unknown COMPREHENSIVE METABOLIC 58060 ALT 15 IU/L 2014 Unknown COMPREHENSIVE METABOLIC 53218 BUN 21 MG/DL 2014 Unknown COMPREHENSIVE METABOLIC 90598 ALBUMIN 4.4 GM/DL 2014 Unknown COMPREHENSIVE METABOLIC 36793 CHLORIDE 106 MMOL/L 11/26 Unknown COMPREHENSIVE METABOLIC 48634 BILI TOT 0.9 MG/DL 2014 Unknown COMPREHENSIVE METABOLIC 14704 ALK PHOS 83 U/L 2014 Unknown COMPREHENSIVE METABOLIC 03157 SODIUM 141 MMOL/L 11/26 Unknown COMPREHENSIVE METABOLIC 91279 CREATININE 0.68 MG/DL 01/2015 Unknown COMPREHENSIVE METABOLIC 39638 CALCIUM 9.4 MG/DL 2014 Unknown COMPREHENSIVE METABOLIC 05936 POTASSIUM 3.8 MMOL/L 11/26 Unknown COMPREHENSIVE METABOLIC 42606 PROT TOT 7.2 GM/DL 2014 Unknown COMPREHENSIVE METABOLIC 35834 Glucose 100 MG/DL 2014 Unknown COMPREHENSIVE METABOLIC 72610 BICARB 29 MMOL/L 2014 Unknown COMPREHENSIVE METABOLIC 95973 ANION GAP 6 MEQ/L 2014 Unknown LIPID GROUP 64028 HDL TEST 72 MG/DL 11/26/2014 Unknown LIPID GROUP 68926 TRIG 101 MG/DL 11/26/2014 Unknown LIPID GROUP 46125 TEST LDL 82 MG/DL 11/26/2014 Unknown LIPID GROUP 70943 CHOL 174 MG/DL 11/26/2014 Unknown LIPID GROUP 29216 RCHOL/HDL 2.42 RATIO 11/26/2014 Unknow n LIPID GROUP 79360 NON-HDL CH 102 MG/DL 11/26/2014 Unknow n GFR CALC 4717163 GFR AA >60 ML/MIN 08/14/2014 Unknown GFR CALC 5445302 GFR NON-AA >60 ML/MIN 08/14/2014 Unknown THYROID STIMULATING HORMONE 09170 TSH 2.261 uIU/ML 08/14/2014 Unknown COMPLETE BLOOD COUNT 4808295 WBC 5.8 10e9/L 08/14/20 14 Unknown COMPLETE BLOOD COUNT 6425444 RBC 4.33 10e12/L 2013 Unknown COMPLETE BLOOD COUNT 1535824 HGB 12.5 g/dL 4 Unknown COMPLETE BLOOD COUNT 0114381 HCT DET 39.2 % 4 Unknown COMPLETE BLOOD COUNT 1101197 MCV 90.5 fL 4 Unknown COMPLETE BLOOD COUNT 7333595 MCH 28.9 pg 4 Unknown COMPLETE BLOOD COUNT 1908298 MCHC 31.9 g/dL 4 Unknown COMPLETE BLOOD COUNT 3286146 PLT 260 10e9/L 08/14/20 14 Unknown COMPLETE BLOOD COUNT 3928387 MPV 10.9 fL 4 Unknown COMPLETE BLOOD COUNT 2459637 CRISTI % 52.9 % 4 Unknown COMPLETE BLOOD COUNT 8646758 LY % 31.0 % 4 Unknown COMPLETE BLOOD COUNT 9136184 MON % 11.3 % 4 Unknown COMPLETE BLOOD COUNT 5412348 EOS % 3.6 % 4 Unknown COMPLETE BLOOD COUNT 6766560 BASO % 1.2 % 4 Unknown COMPLETE BLOOD COUNT 8219788 RDW 13.9 % 4 Unknown COMPLETE BLOOD COUNT 6541926 ABS CRISTI 3.07 10e9/L 014 Unknown COMPLETE BLOOD COUNT 2097600 ABS LYMPH 1.80 10e9/L 014 Unknown COMPLETE BLOOD COUNT 2401962 ABS MONO 0.66 10e9/L 014 Unknown COMPLETE BLOOD COUNT 3535727 ABS EOS 0.21 10e9/L 014 Unknown COMPLETE BLOOD COUNT 2288330 ABS BASO 0.07 10e9/L 014 Unknown COMPLETE BLOOD COUNT 5243413 RDW-SD 44.8 fL 4 Unknown COMPREHENSIVE METABOLIC 32977 AST 15 U/L 2013 Unknown COMPREHENSIVE METABOLIC 30515 ALT 13 IU/L 2013 Unknown COMPREHENSIVE METABOLIC 40749 BUN 18 MG/DL 2013 Unknown COMPREHENSIVE METABOLIC 86878 ALBUMIN 4.4 GM/DL 2013 Unknown COMPREHENSIVE METABOLIC 32486 CHLORIDE 105 MMOL/L 08/14 Unknown COMPREHENSIVE METABOLIC 24500 BILI TOT 1.0 MG/DL 2013 Unknown COMPREHENSIVE METABOLIC 60872 ALK PHOS 88 U/L 2013 Unknown COMPREHENSIVE METABOLIC 46137 SODIUM 143 MMOL/L 08/14 Unknown COMPREHENSIVE METABOLIC 65386 CREATININE 0.70 MG/DL 07/26 Unknown COMPREHENSIVE METABOLIC 63575 CALCIUM 9.6 MG/DL 2013 Unknown COMPREHENSIVE METABOLIC 29977 POTASSIUM 3.9 MMOL/L 08/14 Unknown COMPREHENSIVE METABOLIC 29416 PROT TOT 7.0 GM/DL 2013 Unknown COMPREHENSIVE METABOLIC 89346 Glucose 100 MG/DL 2013 Unknown COMPREHENSIVE METABOLIC 63896 BICARB 31 MMOL/L 2013 Unknown COMPREHENSIVE METABOLIC 28440 ANION GAP 7 MEQ/L 2013 Unknown FREE T4 33476 FREE T4 1.59 NG/DL 08/14/2014 Unknown LIPID GROUP 37956 HDL TEST 66 MG/DL 08/14/2014 Unknown LIPID GROUP 23009 TRIG 106 MG/DL 08/14/2014 Unknown LIPID GROUP 58430 TEST LDL 152 MG/DL 08/14/2014 Unknown LIPID GROUP 10347 CHOL 239 MG/DL 08/14/2014 Unknown LIPID GROUP 50809 RCHOL/HDL 3.62 RATIO 08/14/2014 Unknow n LIPID GROUP 98030 NON-HDL CH 173 MG/DL 08/14/2014 Unknow n COMPREHENSIVE METABOLIC 21995 AST 16 U/L 2013 Unknown COMPREHENSIVE METABOLIC 90593 ALT 13 IU/L 2013 Unknown COMPREHENSIVE METABOLIC 51067 BUN 20 MG/DL 2013 Unknown COMPREHENSIVE METABOLIC 64979 ALBUMIN 4.4 GM/DL 2013 Unknown COMPREHENSIVE METABOLIC 22495 CHLORIDE 104 MMOL/L 02/04 Unknown COMPREHENSIVE METABOLIC 00262 BILI TOT 0.8 MG/DL 2013 Unknown COMPREHENSIVE METABOLIC 67018 ALK PHOS 79 U/L 2013 Unknown COMPREHENSIVE METABOLIC 66352 SODIUM 141 MMOL/L 02/04 Unknown COMPREHENSIVE METABOLIC 20358 CREATININE 0.73 MG/DL 01/22 Unknown COMPREHENSIVE METABOLIC 22400 CALCIUM 9.6 MG/DL 2013 Unknown COMPREHENSIVE METABOLIC 57451 POTASSIUM 4.0 MMOL/L 02/04 Unknown COMPREHENSIVE METABOLIC 05633 PROT TOT 7.2 GM/DL 2013 Unknown COMPREHENSIVE METABOLIC 70317 Glucose 96 MG/DL 2013 Unknown COMPREHENSIVE METABOLIC 96868 BICARB 31 MMOL/L 2013 Unknown COMPREHENSIVE METABOLIC 80107 ANION GAP 6 MEQ/L 2013 Unknown GFR CALC [id number] GFR AA >60 ML/MIN 02/04/2014 Unknown GFR CALC [id number] GFR NON-AA >60 ML/MIN 02/04/2014 Unknown FREE T4 49807 FREE T4 1.59 NG/DL 02/04/2014 Unknown COMPLETE BLOOD COUNT [id number] WBC 5.9 10e9/L 02/05/20 14 Unknown COMPLETE BLOOD COUNT 3672018 RBC 4.37 10e12/L 2013 Unknown COMPLETE BLOOD COUNT [id number] HGB 12.6 g/dL 4 Unknown COMPLETE BLOOD COUNT [id number] HCT DET 39.0 % 4 Unknown COMPLETE BLOOD COUNT [id number] MCV 89.2 fL 4 Unknown COMPLETE BLOOD COUNT [id number] MCH 28.8 pg 4 Unknown COMPLETE BLOOD COUNT 6348766 MCHC 32.3 g/dL 4 Unknown COMPLETE BLOOD COUNT [id number] PLT 265 10e9/L 02/05/20 14 Unknown COMPLETE BLOOD COUNT [id number] MPV 10.8 fL 4 Unknown COMPLETE BLOOD COUNT [id number] CRISTI % 55.5 % 4 Unknown COMPLETE BLOOD COUNT 9335773 LY % 30.8 % 4 Unknown COMPLETE BLOOD COUNT [id number] MON % 10.0 % 4 Unknown COMPLETE BLOOD COUNT 7597554 EOS % 2.7 % 4 Unknown COMPLETE BLOOD COUNT 6348121 BASO % 1.0 % 4 Unknown COMPLETE BLOOD COUNT 9338391 RDW 14.2 % 4 Unknown COMPLETE BLOOD COUNT [id number] ABS CRISTI 3.27 10e9/L 014 Unknown COMPLETE BLOOD COUNT [id number] ABS LYMPH 1.82 10e9/L 014 Unknown COMPLETE BLOOD COUNT [id number] ABS MONO 0.59 10e9/L 014 Unknown COMPLETE BLOOD COUNT [id number] ABS EOS 0.16 10e9/L 014 Unknown COMPLETE BLOOD COUNT [id number] ABS BASO 0.06 10e9/L 014 Unknown COMPLETE BLOOD COUNT [id number] RDW-SD 45.2 fL 4 Unknown LIPID GROUP 88932 HDL TEST 69 MG/DL 02/04/2014 Unknown LIPID GROUP 84921 TRIG 121 MG/DL 02/04/2014 Unknown LIPID GROUP 55573 TEST LDL 144 MG/DL 02/04/2014 Unknown LIPID GROUP 38254 CHOL 237 MG/DL 02/04/2014 Unknown LIPID GROUP 81241 RCHOL/HDL 3.43 RATIO 02/04/2014 Unknow n THYROID STIMULATING HORMONE 17537 TSH 2.310 uIU/ML 02/04/2014 Unknown THYROID STIMULATING HORMONE 01922 TSH 2.429 uIU/ML 03/18/2012 Unknown COMPREHENSIVE METABOLIC 06223 AST 17 U/L 2011 Unknown COMPREHENSIVE METABOLIC 89095 ALT 15 IU/L 2011 Unknown COMPREHENSIVE METABOLIC 90924 BUN 17 MG/DL 2011 Unknown COMPREHENSIVE METABOLIC 17859 ALBUMIN 4.1 GM/DL 2011 Unknown COMPREHENSIVE METABOLIC 05019 CHLORIDE 108 MMOL/L 03/18 Unknown COMPREHENSIVE METABOLIC 86453 BILI TOT 0.7 MG/DL 2011 Unknown COMPREHENSIVE METABOLIC 46264 ALK PHOS 79 U/L 2011 Unknown COMPREHENSIVE METABOLIC 31403 SODIUM 144 MMOL/L 03/18 Unknown COMPREHENSIVE METABOLIC 47824 CREATININE 0.68 MG/DL 02/23 Unknown COMPREHENSIVE METABOLIC 69541 CALCIUM 9.0 MG/DL 2011 Unknown COMPREHENSIVE METABOLIC 30831 POTASSIUM 3.7 MMOL/L 03/18 Unknown COMPREHENSIVE METABOLIC 81479 PROT TOT 6.6 GM/DL 2011 Unknown COMPREHENSIVE METABOLIC 75922 Glucose 99 MG/DL 2011 Unknown COMPREHENSIVE METABOLIC 56417 BICARB 28 MMOL/L 2011 Unknown COMPREHENSIVE METABOLIC 97940 ANION GAP 8 MEQ/L 2011 Unknown LIPID GROUP 41355 HDL TEST 65 MG/DL 03/18/2012 Unknown LIPID GROUP 14382 TRIG 86 MG/DL 03/18/2012 Unknown LIPID GROUP 37560 TEST LDL 153 MG/DL 03/18/2012 Unknown LIPID GROUP 53355 CHOL 235 MG/DL 03/18/2012 Unknown LIPID GROUP 23201 RCHOL/HDL 3.62 RATIO 03/18/2012 Unknow n GFR CALC [id number] GFR AA >60 ML/MIN 03/18/2012 Unknown GFR CALC [id number] GFR NON-AA >60 ML/MIN 03/18/2012 Unknown COMPLETE BLOOD COUNT 73802 WBC 5.1 10e9/L 03/18/20 12 Unknown COMPLETE BLOOD COUNT 71049 RBC 4.32 10e12/L 2011 Unknown COMPLETE BLOOD COUNT 89553 HGB 12.4 g/dL 2 Unknown COMPLETE BLOOD COUNT 51495 HCT DET 38.4 % 2 Unknown COMPLETE BLOOD COUNT 91739 MCV 88.9 fL 2 Unknown COMPLETE BLOOD COUNT 82197 MCH 28.7 pg 2 Unknown COMPLETE BLOOD COUNT 88936 MCHC 32.3 g/dL 2 Unknown COMPLETE BLOOD COUNT 47151 PLT 245 10e9/L 03/18/20 12 Unknown COMPLETE BLOOD COUNT 75451 MPV 10.7 fL 2 Unknown COMPLETE BLOOD COUNT 82746 CRISTI % 52.9 % 2 Unknown COMPLETE BLOOD COUNT 88100 LY % 31.5 % 2 Unknown COMPLETE BLOOD COUNT 10882 MON % 12.3 % 2 Unknown COMPLETE BLOOD COUNT 93678 EOS % 2.9 % 2 Unknown COMPLETE BLOOD COUNT 26136 BASO % 0.4 % 2 Unknown COMPLETE BLOOD COUNT 48597 RDW 13.9 % 2 Unknown COMPLETE BLOOD COUNT 95258 ABS CRISTI 2.70 10e9/L 012 Unknown COMPLETE BLOOD COUNT 61216 ABS LYMPH 1.61 10e9/L 012 Unknown COMPLETE BLOOD COUNT 39227 ABS MONO 0.63 10e9/L 012 Unknown COMPLETE BLOOD COUNT 64979 ABS EOS 0.15 10e9/L 012 Unknown COMPLETE BLOOD COUNT 46941 ABS BASO 0.02 10e9/L 012 Unknown COMPLETE BLOOD COUNT 97499 RDW-SD 44.5 fL 2 Unknown FREE T4 89887 FREE T4 1.50 NG/DL 03/18/2012 Unknown LIPID GROUP 13984 HDL TEST 61 MG/DL 07/13/2011 Unknown LIPID GROUP 26192 TRIG 158 MG/DL 07/13/2011 Unknown LIPID GROUP 42076 TEST LDL 131 MG/DL 07/13/2011 Unknown LIPID GROUP 14637 CHOL 224 MG/DL 07/13/2011 Unknown LIPID GROUP 49646 RCHOL/HDL 3.67 RATIO 07/13/2011 Unknow n COMPREHENSIVE METABOLIC 29292 AST 19 U/L 2010 Unknown COMPREHENSIVE METABOLIC 02799 ALT 17 IU/L 2010 Unknown COMPREHENSIVE METABOLIC 75938 BUN 14 MG/DL 2010 Unknown COMPREHENSIVE METABOLIC 45476 ALBUMIN 4.2 GM/DL 2010 Unknown COMPREHENSIVE METABOLIC 90759 CHLORIDE 105 MMOL/L 07/13 Unknown COMPREHENSIVE METABOLIC 96622 BILI TOT 0.9 MG/DL 2010 Unknown COMPREHENSIVE METABOLIC 16400 ALK PHOS 71 U/L 2010 Unknown COMPREHENSIVE METABOLIC 59781 SODIUM 141 MMOL/L 07/13 Unknown COMPREHENSIVE METABOLIC 52903 CREATININE 0.68 MG/DL 06/25 Unknown COMPREHENSIVE METABOLIC 82579 CALCIUM 9.3 MG/DL 2010 Unknown COMPREHENSIVE METABOLIC 17339 POTASSIUM 3.8 MMOL/L 07/13 Unknown COMPREHENSIVE METABOLIC 23208 PROT TOT 6.5 GM/DL 2010 Unknown COMPREHENSIVE METABOLIC 29280 Glucose 94 MG/DL 2010 Unknown COMPREHENSIVE METABOLIC 38212 BICARB 28 MMOL/L 2010 Unknown COMPREHENSIVE METABOLIC 88574 ANION GAP 8 MEQ/L 2010 Unknown COMPLETE BLOOD COUNT 78738 WBC 5.4 10e9/L 07/13/20 11 Unknown COMPLETE BLOOD COUNT 76205 RBC 4.20 10e12/L 2010 Unknown COMPLETE BLOOD COUNT 40903 HGB 12.4 g/dL 1 Unknown COMPLETE BLOOD COUNT 78512 HCT DET 37.6 % 1 Unknown COMPLETE BLOOD COUNT 32337 MCV 89.5 fL 1 Unknown COMPLETE BLOOD COUNT 98068 MCH 29.5 pg 1 Unknown COMPLETE BLOOD COUNT 32313 MCHC 33.0 g/dL 1 Unknown COMPLETE BLOOD COUNT 27326 PLT 273 10e9/L 07/13/20 11 Unknown COMPLETE BLOOD COUNT 41931 MPV 10.7 fL 1 Unknown COMPLETE BLOOD COUNT 06814 CRISTI % 49.9 % 1 Unknown COMPLETE BLOOD COUNT 19042 LY % 35.9 % 1 Unknown COMPLETE BLOOD COUNT 63042 MON % 10.4 % 1 Unknown COMPLETE BLOOD COUNT 14884 EOS % 2.9 % 1 Unknown COMPLETE BLOOD COUNT 30739 BASO % 0.9 % 1 Unknown COMPLETE BLOOD COUNT 43107 RDW 13.8 % 1 Unknown COMPLETE BLOOD COUNT 80770 ABS CRISTI 2.69 10e9/L 011 Unknown COMPLETE BLOOD COUNT 86085 ABS LYMPH 1.94 10e9/L 011 Unknown COMPLETE BLOOD COUNT 98165 ABS MONO 0.56 10e9/L 011 Unknown COMPLETE BLOOD COUNT 37434 ABS EOS 0.16 10e9/L 011 Unknown COMPLETE BLOOD COUNT 51164 ABS BASO 0.05 10e9/L 011 Unknown COMPLETE BLOOD COUNT 86053 RDW-SD 44.4 fL 1 Unknown GFR CALC 0422134 GFR AA >60 ML/MIN 07/13/2011 Unknown GFR CALC 4803741 GFR NON-AA >60 ML/MIN 07/13/2011 Unknown FREE T4 68360 FREE T4 1.36 NG/DL 07/13/2011 Unknown THYROID STIMULATING HORMONE 68976 TSH 4.261 uIU/ML 07/13/2011 Unknown GFR CALC 4233005 GFR AA >60 ML/MIN 03/13/2011 Unknown GFR CALC 6832651 GFR NON-AA >60 ML/MIN 03/13/2011 Unknown LIPID GROUP 10304 HDL TEST 60 MG/DL 03/13/2011 Unknown LIPID GROUP 17340 TRIG 140 MG/DL 03/13/2011 Unknown LIPID GROUP 12512 TEST LDL 122 MG/DL 03/13/2011 Unknown LIPID GROUP 05360 CHOL 210 MG/DL 03/13/2011 Unknown LIPID GROUP 78270 RCHOL/HDL 3.50 RATIO 03/13/2011 Unknow n FREE T4 57791 FREE T4 1.36 NG/DL 03/13/2011 Unknown THYROID STIMULATING HORMONE 05721 TSH 7.688 uIU/ML 03/13/2011 Unknown COMPREHENSIVE METABOLIC 05586 AST 17 U/L 2010 Unknown COMPREHENSIVE METABOLIC 91557 ALT 12 IU/L 2010 Unknown COMPREHENSIVE METABOLIC 76217 BUN 19 MG/DL 2010 Unknown COMPREHENSIVE METABOLIC 26280 ALBUMIN 4.3 GM/DL 2010 Unknown COMPREHENSIVE METABOLIC 26898 CHLORIDE 105 MMOL/L 03/13 Unknown COMPREHENSIVE METABOLIC 64207 BILI TOT 0.6 MG/DL 2010 Unknown COMPREHENSIVE METABOLIC 42270 ALK PHOS 68 U/L 2010 Unknown COMPREHENSIVE METABOLIC 31622 SODIUM 139 MMOL/L 03/13 Unknown COMPREHENSIVE METABOLIC 55494 CREATININE 0.77 MG/DL 02/23 Unknown COMPREHENSIVE METABOLIC 06063 CALCIUM 9.2 MG/DL 2010 Unknown COMPREHENSIVE METABOLIC 17411 POTASSIUM 3.8 MMOL/L 03/13 Unknown COMPREHENSIVE METABOLIC 63482 PROT TOT 6.9 GM/DL 2010 Unknown COMPREHENSIVE METABOLIC 90670 Glucose 97 MG/DL 2010 Unknown COMPREHENSIVE METABOLIC 31548 BICARB 25 MMOL/L 2010 Unknown COMPREHENSIVE METABOLIC 49530 ANION GAP 9 MEQ/L 2010 Unknown FREE T4 56115 FREE T4 1.32 NG/DL 12/16/2010 Unknown COMPLETE BLOOD COUNT 17255 WBC 5.6 10e9/L 12/17/19 11 Unknown COMPLETE BLOOD COUNT 39307 RBC 4.38 10e12/L 2010 Unknown COMPLETE BLOOD COUNT 98981 HGB 12.5 g/dL 1 Unknown COMPLETE BLOOD COUNT 03056 HCT DET 38.7 % 1 Unknown COMPLETE BLOOD COUNT 22876 MCV 88.4 fL 1 Unknown COMPLETE BLOOD COUNT 84803 MCH 28.5 pg 1 Unknown COMPLETE BLOOD COUNT 41102 MCHC 32.3 g/dL 1 Unknown COMPLETE BLOOD COUNT 88026 PLT 249 10e9/L 12/17/19 11 Unknown COMPLETE BLOOD COUNT 91255 MPV 10.5 fL 1 Unknown COMPLETE BLOOD COUNT 08337 CRISTI % 52.8 % 1 Unknown COMPLETE BLOOD COUNT 82159 LY % 33.3 % 1 Unknown COMPLETE BLOOD COUNT 46189 MON % 9.8 % 1 Unknown COMPLETE BLOOD COUNT 85612 EOS % 3.4 % 1 Unknown COMPLETE BLOOD COUNT 74039 BASO % 0.7 % 1 Unknown COMPLETE BLOOD COUNT 59907 RDW 14.2 % 1 Unknown COMPLETE BLOOD COUNT 41787 ABS CRISTI 2.96 10e9/L 011 Unknown COMPLETE BLOOD COUNT 00796 ABS LYMPH 1.86 10e9/L 011 Unknown COMPLETE BLOOD COUNT 77344 ABS MONO 0.55 10e9/L 011 Unknown COMPLETE BLOOD COUNT 60811 ABS EOS 0.19 10e9/L 011 Unknown COMPLETE BLOOD COUNT 86293 ABS BASO 0.04 10e9/L 011 Unknown COMPLETE BLOOD COUNT 75150 RDW-SD 45.1 fL 1 Unknown GFR CALC 2357340 GFR AA >60 ML/MIN 12/16/2010 Unknown GFR CALC 6623151 GFR NON-AA >60 ML/MIN 12/16/2010 Unknown THYROID STIMULATING HORMONE 85452 TSH 7.082 uIU/ML 12/16/2010 Unknown COMPREHENSIVE METABOLIC 52860 AST 21 U/L 2010 Unknown COMPREHENSIVE METABOLIC 49732 ALT 18 IU/L 2010 Unknown COMPREHENSIVE METABOLIC 22348 BUN 22 MG/DL 2010 Unknown COMPREHENSIVE METABOLIC 93230 ALBUMIN 4.6 GM/DL 2010 Unknown COMPREHENSIVE METABOLIC 85122 CHLORIDE 102 MMOL/L 12/16 Unknown COMPREHENSIVE METABOLIC 94049 BILI TOT 0.6 MG/DL 2010 Unknown COMPREHENSIVE METABOLIC 09765 ALK PHOS 72 U/L 2010 Unknown COMPREHENSIVE METABOLIC 34422 SODIUM 140 MMOL/L 12/16 Unknown COMPREHENSIVE METABOLIC 81732 CREATININE 0.73 MG/DL 11/23 Unknown COMPREHENSIVE METABOLIC 86792 CALCIUM 9.4 MG/DL 2010 Unknown COMPREHENSIVE METABOLIC 95872 POTASSIUM 4.2 MMOL/L 12/16 Unknown COMPREHENSIVE METABOLIC 53770 PROT TOT 7.1 GM/DL 2010 Unknown COMPREHENSIVE METABOLIC 03519 Glucose 88 MG/DL 2010 Unknown COMPREHENSIVE METABOLIC 73273 BICARB 30 MMOL/L 2010 Unknown COMPREHENSIVE METABOLIC 84136 ANION GAP 8 MEQ/L 2010 Unknown LIPID GROUP 27203 HDL TEST 66 MG/DL 12/16/2010 Unknown LIPID GROUP 38620 TRIG 154 MG/DL 12/16/2010 Unknown LIPID GROUP 60112 TEST LDL 128 MG/DL 12/16/2010 Unknown LIPID GROUP 07431 CHOL 225 MG/DL 12/16/2010 Unknown LIPID GROUP 99116 RCHOL/HDL 3.41 RATIO 12/16/2010 Unknow n Procedures Procedure Codes Date ROUTINE VENIPUNCTURE CPT-4: 93216 02/28/2022 RML ASSAY OF FREE THYROXINE CPT-4: 44344 02/28/2022 RML ASSAY THYROID STIM HORMONE CPT-4: 83251 RML COMPREHEN METABOLIC PANEL CPT-4: 87737 02/28/2022 RML COMPLETE CBC W/AUTO DIFF WBC CPT-4: 72494 022 RML LIPID PANEL CPT-4: 26800 02/28/2022 RML A1C HPLC CPT-4: 20030 02/28/2022 SARSCOV & INF VIR A&B AG IA CPT-4: 54066 08/09/2021 CLEAR OUTER EAR CANAL CPT-4: 63898 08/09/2021 ROUTINE VENIPUNCTURE CPT-4: 52786 07/20/2021 RML ASSAY OF FREE THYROXINE CPT-4: 04140 07/20/2021 RML ASSAY THYROID STIM HORMONE CPT-4: 94764 RML COMPREHEN METABOLIC PANEL CPT-4: 02197 07/20/2021 RML COMPLETE CBC W/AUTO DIFF WBC CPT-4: 22073 021 RML A1C HPLC CPT-4: 09691 07/20/2021 DESTRUCT B9 LESION 1-14 CPT-4: 39986 05/12/2021 THER/PROPH/DIAG INJ SC/IM CPT-4: 71192 03/08/2021 TRIAMCINOLONE ACET INJ NOS CPT-4: J3301 03/08/2021 ROUTINE VENIPUNCTURE CPT-4: 74681 01/31/2021 RML COMPREHEN METABOLIC PANEL CPT-4: 38896 01/31/2021 RML COMPLETE CBC W/AUTO DIFF WBC CPT-4: 33805 021 RML LIPID PANEL CPT-4: 85830 01/31/2021 RML ASSAY OF FREE THYROXINE CPT-4: 03951 01/31/2021 RML ASSAY THYROID STIM HORMONE CPT-4: 81807 1 RML A1C HPLC CPT-4: 28765 01/31/2021 EXC TR-EXT B9+JOSE G 0.5 CM< CPT-4: 86725 05/19/2020 PPPS, subseq visit CPT-4: G0439 05/11/2020 ROUTINE VENIPUNCTURE CPT-4: 48621 05/05/2020 RML ASSAY OF FREE THYROXINE CPT-4: 68659 05/05/2020 RML ASSAY THYROID STIM HORMONE CPT-4: 86584 0 RML COMPREHEN METABOLIC PANEL CPT-4: 41514 05/05/2020 RML COMPLETE CBC W/AUTO DIFF WBC CPT-4: 47280 020 RML LIPID PANEL CPT-4: 26159 05/05/2020 RML A1C HPLC CPT-4: 22860 05/05/2020 THER/PROPH/DIAG INJ SC/IM CPT-4: 33579 01/28/2020 TRIAMCINOLONE ACET INJ NOS CPT-4: J3301 01/28/2020 ROUTINE VENIPUNCTURE CPT-4: 32795 01/05/2020 RML ASSAY OF FREE THYROXINE CPT-4: 54930 01/05/2020 RML ASSAY THYROID STIM HORMONE CPT-4: 35526 0 RML COMPREHEN METABOLIC PANEL CPT-4: 81616 01/05/2020 RML COMPLETE CBC W/AUTO DIFF WBC CPT-4: 81987 020 ASSAY OF AMYLASE CPT-4: 39366 01/05/2020 ASSAY OF LIPASE CPT-4: 45186 01/05/2020 ROUTINE VENIPUNCTURE CPT-4: 64765 12/05/2019 RML COMPREHEN METABOLIC PANEL CPT-4: 90817 12/05/2019 ROUTINE VENIPUNCTURE CPT-4: 28034 11/05/2019 RML COMPREHEN METABOLIC PANEL CPT-4: 46314 11/05/2019 URINALYSIS NONAUTO W/O SCOPE CPT-4: 12422 10/23/2019 URINE CULTURE/ COLONY COUNT CPT-4: 92674 10/23/2019 ROUTINE VENIPUNCTURE CPT-4: 76562 10/21/2019 RML ASSAY OF FREE THYROXINE CPT-4: 72670 10/21/2019 RML ASSAY THYROID STIM HORMONE CPT-4: 33198 0 RML COMPREHEN METABOLIC PANEL CPT-4: 41157 10/21/2019 RML COMPLETE CBC W/AUTO DIFF WBC CPT-4: 73512 020 RML LIPID PANEL CPT-4: 44623 10/21/2019 HYDRATION IV INFUSION INIT CPT-4: 76853 10/20/2019 Removal impacted cerumen using irrigation/lavage, unilateral CPT-4: 50138 10/20/2019 ROUTINE VENIPUNCTURE CPT-4: 03636 04/04/2019 RML COMPLETE CBC W/AUTO DIFF WBC CPT-4: 79927 019 RML COMPREHEN METABOLIC PANEL CPT-4: 87397 04/04/2019 RML ASSAY THYROID STIM HORMONE CPT-4: 10455 9 RML ASSAY OF FREE THYROXINE CPT-4: 34474 04/04/2019 RML LIPID PANEL CPT-4: 37043 04/04/2019 PPPS, subseq visit CPT-4: G0439 11/26/2018 ROUTINE VENIPUNCTURE CPT-4: 36887 10/07/2018 RML ASSAY THYROID STIM HORMONE CPT-4: 98492 9 RML ASSAY OF FREE THYROXINE CPT-4: 78275 10/07/2018 RML COMPREHEN METABOLIC PANEL CPT-4: 54209 10/07/2018 RML COMPLETE CBC W/AUTO DIFF WBC CPT-4: 18349 019 RML LIPID PANEL CPT-4: 44223 10/07/2018 RML A1C HPLC CPT-4: 03857 10/07/2018 CERUM REMOVAL CPT-4: 39461 06/25/2018 THER/PROPH/DIAG INJ SC/IM CPT-4: 55301 05/03/2018 TRIAMCINOLONE ACET INJ NOS CPT-4: J3301 05/03/2018 Removal impacted cerumen using irrigation/lavage, unilateral CPT-4: 59732 02/19/2018 ROUTINE VENIPUNCTURE CPT-4: 00702 02/13/2018 RML ASSAY OF FREE THYROXINE CPT-4: 17496 02/13/2018 RML ASSAY THYROID STIM HORMONE CPT-4: 94879 8 RML COMPREHEN METABOLIC PANEL CPT-4: 38284 02/13/2018 RML COMPLETE CBC W/AUTO DIFF WBC CPT-4: 78162 018 ROUTINE VENIPUNCTURE CPT-4: 88392 10/15/2017 RML ASSAY OF FREE THYROXINE CPT-4: 37666 10/15/2017 RML ASSAY THYROID STIM HORMONE CPT-4: 42825 8 RML COMPREHEN METABOLIC PANEL CPT-4: 26684 10/15/2017 RML COMPLETE CBC W/AUTO DIFF WBC CPT-4: 54370 018 RML LIPID PANEL CPT-4: 70897 10/15/2017 VITAMIN B-12 CPT-4: 32731 10/15/2017 CERUM REMOVAL CPT-4: 83804 07/24/2017 ROUTINE VENIPUNCTURE CPT-4: 91093 03/30/2017 VITAMIN B-12 CPT-4: 34956 03/30/2017 ROUTINE VENIPUNCTURE CPT-4: 54011 12/18/2016 VITAMIN B-12 CPT-4: 81446 12/18/2016 PPPS, subseq visit CPT-4: G0439 12/18/2016 ROUTINE VENIPUNCTURE CPT-4: 96471 12/11/2016 RML ASSAY OF FREE THYROXINE CPT-4: 20316 12/11/2016 RML ASSAY THYROID STIM HORMONE CPT-4: 59518 7 RML COMPREHEN METABOLIC PANEL CPT-4: 54302 12/11/2016 RML COMPLETE CBC W/AUTO DIFF WBC CPT-4: 93032 017 RML LIPID PANEL CPT-4: 57847 12/11/2016 RML A1C HPLC CPT-4: 35740 12/11/2016 URINALYSIS NONAUTO W/O SCOPE CPT-4: 33205 02/07/2016 ROUTINE VENIPUNCTURE CPT-4: 07933 05/27/2015 RML ASSAY OF FREE THYROXINE CPT-4: 64980 05/27/2015 RML ASSAY THYROID STIM HORMONE CPT-4: 13271 5 RML COMPREHEN METABOLIC PANEL CPT-4: 56973 05/27/2015 RML COMPLETE CBC W/AUTO DIFF WBC CPT-4: 32827 015 RML LIPID PANEL CPT-4: 96538 05/27/2015 VITAMIN B-12 CPT-4: 67406 05/27/2015 RML A1C HPLC CPT-4: 94760 05/27/2015 PNEUMOCOCCAL VACC 13 LEN IM CPT-4: 29222 05/26/2015 ADMIN PNEUMOCOCCAL VACCINE CPT-4: G0009 05/26/2015 CUR TOBACCO NON-USER CPT-4: G8457 05/26/2015 OCCULT BLOOD FECES CPT-4: 32507 02/19/2015 OCCULT BLOOD FECES CPT-4: 85463 01/20/2015 ROUTINE VENIPUNCTURE CPT-4: 69233 12/15/2014 ASSAY OF IRON CPT-4: 42206 12/15/2014 RML COMPLETE CBC W/AUTO DIFF WBC CPT-4: 77127 015 CERUM REMOVAL CPT-4: 45661 11/30/2014 PRESCRIP TRANSMIT VIA ERX SY CPT-4: G8553 11/30/2014 ROUTINE VENIPUNCTURE CPT-4: 06942 11/26/2014 RML COMPREHEN METABOLIC PANEL CPT-4: 14872 11/26/2014 RML LIPID PANEL CPT-4: 96230 11/26/2014 ROUTINE VENIPUNCTURE CPT-4: 01375 08/14/2014 RML ASSAY OF FREE THYROXINE CPT-4: 58880 08/14/2014 RML ASSAY THYROID STIM HORMONE CPT-4: 58861 4 RML COMPREHEN METABOLIC PANEL CPT-4: 01370 08/14/2014 RML COMPLETE CBC W/AUTO DIFF WBC CPT-4: 43512 014 RML LIPID PANEL CPT-4: 41015 08/14/2014 PRESCRIP TRANSMIT VIA ERX SY CPT-4: G8553 07/23/2014 PRESCRIP TRANSMIT VIA ERX SY CPT-4: G8553 03/09/2014 PRESCRIP TRANSMIT VIA ERX SY CPT-4: G8553 02/05/2014 ROUTINE VENIPUNCTURE CPT-4: 92884 02/04/2014 RML ASSAY OF FREE THYROXINE CPT-4: 78483 02/04/2014 RML ASSAY THYROID STIM HORMONE CPT-4: 40097 4 RML COMPREHEN METABOLIC PANEL CPT-4: 92856 02/04/2014 RML COMPLETE CBC W/AUTO DIFF WBC CPT-4: 34441 014 RML LIPID PANEL CPT-4: 10967 02/04/2014 DRAIN/INJECT JOINT/BURSA CPT-4: 44996 04/07/2013 METHYLPREDNISOLONE 40 MG INJ CPT-4: J1030 04/07/2013 TRIAMCINOLONE ACET INJ NOS CPT-4: J3301 04/07/2013 PRESCRIP TRANSMIT VIA ERX SY CPT-4: G8553 04/07/2013 DRAIN/INJECT JOINT/BURSA CPT-4: 89783 10/09/2012 METHYLPREDNISOLONE 40 MG INJ CPT-4: J1030 10/09/2012 TRIAMCINOLONE ACET INJ NOS CPT-4: J3301 10/09/2012 PRESCRIP TRANSMIT VIA ERX SY CPT-4: G8553 03/28/2012 ROUTINE VENIPUNCTURE CPT-4: 62977 03/18/2012 RML ASSAY OF FREE THYROXINE CPT-4: 98437 03/18/2012 RML ASSAY THYROID STIM HORMONE CPT-4: 75979 2 RML COMPREHEN METABOLIC PANEL CPT-4: 63588 03/18/2012 RML COMPLETE CBC W/AUTO DIFF WBC CPT-4: 24160 012 RML LIPID PANEL CPT-4: 81911 03/18/2012 CERUM REMOVAL CPT-4: 39507 2012 OCCULT BLOOD FECES CPT-4: 68924 09/27/2011 CA SCREEN;PELVIC/BREAST EXAM CPT-4: G0101 09/27/2011 OBTAINING SCREEN PAP SMEAR CPT-4: Q0091 09/27/2011 CUR TOBACCO NON-USER CPT-4: G8457 09/13/2011 PRESCRIP TRANSMIT VIA ERX SY CPT-4: G8553 09/13/2011 PRESCRIP TRANSMIT VIA ERX SY CPT-4: G8553 08/07/2011 ROUTINE VENIPUNCTURE CPT-4: 75643 07/13/2011 RML ASSAY OF FREE THYROXINE CPT-4: 22753 07/13/2011 RML ASSAY THYROID STIM HORMONE CPT-4: 54529 1 RML COMPREHEN METABOLIC PANEL CPT-4: 72535 07/13/2011 RML COMPLETE CBC W/AUTO DIFF WBC CPT-4: 13699 011 RML LIPID PANEL CPT-4: 42636 07/13/2011 ROUTINE VENIPUNCTURE CPT-4: 65948 03/13/2011 RML COMPREHEN METABOLIC PANEL CPT-4: 67045 03/13/2011 RML LIPID PANEL CPT-4: 32187 03/13/2011 RML ASSAY THYROID STIM HORMONE CPT-4: 15791 1 RML ASSAY OF FREE THYROXINE CPT-4: 74105 03/13/2011 PRESCRIP TRANSMIT VIA ERX SY CPT-4: G8553 01/04/2011 ROUTINE VENIPUNCTURE CPT-4: 50506 12/16/2010 RML LIPID PANEL CPT-4: 86188 12/16/2010 RML COMPLETE CBC W/AUTO DIFF WBC CPT-4: 02417 011 RML COMPREHEN METABOLIC PANEL CPT-4: 42078 12/16/2010 RML ASSAY OF FREE THYROXINE CPT-4: 38855 12/16/2010 RML ASSAY THYROID STIM HORMONE CPT-4: 60137 1 INJ TRIGGER POINT 1/2 MUSCL CPT-4: 00102 02/14/2010 TRIAMCINOLONE ACET INJ NOS CPT-4: J3301 02/14/2010 METHYLPREDNISOLONE 40 MG INJ CPT-4: J1030 02/14/2010 THER/PROPH/DIAG INJ SC/IM CPT-4: 94538 02/07/2010 KETOROLAC TROMETHAMINE INJ CPT-4: J1885 02/07/2010 ROUTINE VENIPUNCTURE CPT-4: 47792 12/22/2009 Vital Signs Date Vital 08/02/2022 Blood Pressure 1: 141/102 Code: 8480-6 BMI: 26.4 Code: 68670-2 Heart Rate 1: 91 bpm Height: 5'10" Code: 8302-2 SpO2: 98% Temperature: 36.2 (C) / 97.1 (F) Weight: 184 lbs Code: 01598-8 06/26/2022 Blood Pressure 1: 132/78 Code: 8480-6 BMI: 25.5 Code: 05453-3 Heart Rate 1: 96 bpm Height: 5'10" Code: 8302-2 SpO2: 98% Temperature: 36.2 (C) / 97.2 (F) Weight: 178 lbs Code: 24523-3 05/22/2022 Blood Pressure 1: 126/82 Code: 8480-6 BMI: 25.5 Code: 47493-5 Heart Rate 1: 104 bpm Height: 5'10" Code: 8302-2 Respiratory Rate: 20 bpm SpO2: 96% Temperature: 36.8 (C) / 98.2 (F) Weight: 178 lbs Code: 31056-1 02/27/2022 Blood Pressure 1: 142/82 Code: 8480-6 BMI: 25.5 Code: 12992-6 Heart Rate 1: 112 bpm Height: 5'10" Code: 8302-2 Respiratory Rate: 20 bpm SpO2: 96% Temperature: 36.8 (C) / 98.3 (F) Weight: 178 lbs Code: 60116-1 11/23/2021 Blood Pressure 1: 136/82 Code: 8480-6 BMI: 25.7 Code: 99819-3 Heart Rate 1: 72 bpm Height: 5'10" Code: 8302-2 Respiratory Rate: 20 bpm SpO2: 98% Temperature: 36.6 (C) / 97.9 (F) Weight: 179 lbs Code: 98505-5 10/12/2021 Blood Pressure 1: 128/92 Code: 8480-6 BMI: 25.5 Code: 42803-2 Heart Rate 1: 68 bpm Height: 5'10" Code: 8302-2 Respiratory Rate: 20 bpm SpO2: 98% Temperature: 36.7 (C) / 98.1 (F) Weight: 178 lbs Code: 31146-1 08/09/2021 Blood Pressure 1: 127/80 Code: 8480-6 Heart Rate 1: 69 bpm Respiratory Rate: 15 bpm SpO2: 98% Temperature: 36.7 (C) / 98.0 (F) We ight: 171 lbs Code: 99516-4 07/28/2021 Blood Pressure 1: 132/78 Code: 8480-6 Heart Rate 1: 76 bpm Respiratory Rate: 20 bpm SpO2: 96% Temperature: 36.8 (C) / 98.2 (F) We ight: 174 lbs Code: 05229-2 05/12/2021 Blood Pressure 1: 142/80 Code: 8480-6 Heart Rate 1: 76 bpm Respiratory Rate: 20 bpm SpO2: 96% Temperature: 36.8 (C) / 98.2 (F) We ight: 173 lbs Code: 81417-6 03/08/2021 Blood Pressure 1: 124/80 Code: 8480-6 Heart Rate 1: 88 bpm Respiratory Rate: 20 bpm SpO2: 98% Temperature: 36.8 (C) / 98.3 (F) We ight: 175 lbs Code: 11556-8 02/03/2021 Blood Pressure 1: 144/84 Code: 8480-6 Heart Rate 1: 68 bpm Respiratory Rate: 20 bpm SpO2: 97% Temperature: 36.7 (C) / 98.1 (F) We ight: 182 lbs Code: 02288-5 01/04/2021 Blood Pressure 1: 152/86 Code: 8480-6 Heart Rate 1: 72 bpm Respiratory Rate: 20 bpm SpO2: 97% Temperature: 36.6 (C) / 97.8 (F) We ight: 182 lbs Code: 79657-3 10/05/2020 Blood Pressure 1: 124/66 Code: 8480-6 He art Rate 1: 65 bpm 09/20/2020 Blood Pressure 1: 134/76 Code: 8480-6 Heart Rate 1: 60 bpm Respiratory Rate: 20 bpm SpO2: 97% Temperature: 36.1 (C) / 97.0 (F) We ight: 187 lbs Code: 18771-1 05/28/2020 Temperature: 36.8 (C) / 98.3 (F) 05/19/2020 Blood Pressure 1: 128/78 Code: 8480-6 Heart Rate 1: 50 bpm Respiratory Rate: 20 bpm SpO2: 98% Temperature: 36.5 (C) / 97.7 (F) 05/11/2020 Blood Pressure 1: 126/80 Code: 8480-6 BMI: 25.4 Code: 70842-0 Heart Rate 1: 60 bpm Height: 5'10" Code: 8302-2 Respiratory Rate: 20 bpm Temperat ure: 36.6 (C) / 97.8 (F) Weight: 177 lbs Code: 35347-7 05/05/2020 Blood Pressure 1: 122/78 Code: 8480-6 [...] 1: 104/66 Code: 8480-6 BMI: 25.4 Code: 57742-0 Heart Rate 1: 56 bpm Height: 5'10" Code: 8302-2 Respiratory Rate: 20 bpm SpO2: 97% Temperature: 36.6 (C) / 97.8 (F) Weight: 177 lbs Code: 62103-3 10/29/2019 Blood Pressure 1: 114/62 Code: 8480-6 Heart Rate 1: 68 bpm Respiratory Rate: 20 bpm SpO2: 99% Temperature: 36.8 (C) / 98.2 (F) 10/20/2019 Blood Pressure 1: 119/74 Code: 8480-6 Heart Rate 1: 57 bpm Respiratory Rate: 16 bpm SpO2: 99% Temperature: 36.9 (C) / 98.4 (F) We ight: 176 lbs Code: 21879-3 07/07/2019 Blood Pressure 1: 126/74 Code: 8480-6 Heart Rate 1: 72 bpm Respiratory Rate: 16 bpm SpO2: 95% Temperature: 36.8 (C) / 98.2 (F) We ight: 179 lbs Code: 46099-4 05/01/2019 Blood Pressure 1: 126/76 Code: 8480-6 Heart Rate 1: 60 bpm Respiratory Rate: 20 bpm SpO2: 97% Temperature: 36.8 (C) / 98.2 (F) 04/15/2019 Blood Pressure 1: 154/94 Code: 8480-6 BMI: 26.0 Code: 77501-2 Heart Rate 1: 60 bpm Height: 5'10" Code: 8302-2 Respiratory Rate: 18 bpm SpO2: 97% Temperature: 36.6 (C) / 97.9 (F) Weight: 181 lbs Code: 59226-9 11/26/2018 Blood Pressure 1: 142/80 Code: 8480-6 BMI: 26.3 Code: 21609-2 Heart Rate 1: 56 bpm Height: 5'10" Code: 8302-2 Respiratory Rate: 20 bpm SpO2: 97% Temperature: 36.9 (C) / 98.4 (F) Weight: 183 lbs Code: 35899-3 08/08/2018 Blood Pressure 1: 126/68 Code: 8480-6 Heart Rate 1: 76 bpm Height: 5'10" Code: 8302-2 Respiratory Rate: 20 bpm SpO2: 97% Temperature: 36 .7 (C) / 98.0 (F) Weight: Code: 52423-6 06/25/2018 Blood Pressure 1: 112/70 Code: 8480-6 BMI: 25.8 Code: 80451-3 Heart Rate 1: 64 bpm Height: 5'10" Code: 8302-2 Respiratory Rate: 20 bpm SpO2: 95% Temperature: 36.9 (C) / 98.4 (F) Weight: 180 lbs Code: 00635-8 05/20/2018 Blood Pressure 1: 132/100 Code: 8480-6 H eart Rate 1: 76 bpm 05/10/2018 Blood Pressure 1: 144/86 Code: 8480-6 Heart Rate 1: 60 bpm Respiratory Rate: 20 bpm SpO2: 97% Temperature: 36.9 (C) / 98.4 (F) We ight: Code: 82494-9 05/03/2018 Blood Pressure 1: 126/92 Code: 8480-6 Bl ood Pressure 2: 147/79 Code: 8480-6 Heart Rate 1: 64 bpm Height: 5'10" Code: 8302-2 Respiratory Rate : 22 bpm SpO2: 98% Temperature: 36.3 (C) / 97.3 (F) Weight: Code: 33792- 7 04/22/2018 Blood Pressure 1: 140/82 Code: 8480-6 BMI: 26.3 Code: 12521-7 Heart Rate 1: 60 bpm Height: 5'10" Code: 8302-2 Respiratory Rate: 20 bpm SpO2: 95% Temperature: 36.8 (C) / 98.2 (F) Weight: 183 lbs Code: 38524-5 03/05/2018 Blood Pressure 1: 122/64 Code: 8480-6 BMI: 25.7 Code: 65087-4 Heart Rate 1: 82 bpm Height: 5'10" Code: 8302-2 Respiratory Rate: 22 bpm SpO2: 96% Temperature: 36.4 (C) / 97.6 (F) Weight: 179 lbs Code: 47572-8 02/19/2018 Blood Pressure 1: 120/84 Code: 8480-6 Heart Rate 1: 68 bpm SpO2: 96% Temperature: 36.2 (C) / 97.2 (F) Weight: Code: 79482-8 02/13/2018 Blood Pressure 1: 138/90 Cod e: 8480-6 10/18/2017 Blood Pressure 1: 122/78 Code: 8480-6 BMI: 26.5 Code: 35391-5 Heart Rate 1: 72 bpm Height: 5'10" Code: 8302-2 Respiratory Rate: 20 bpm Temperat ure: 36.7 (C) / 98.0 (F) Weight: 185 lbs Code: 50938-2 07/24/2017 Blood Pressure 1: 118/68 Code: 8480-6 Heart Rate 1: 82 bpm Height: 5'10" Code: 8302-2 Respiratory Rate: 20 bpm SpO2: 92% Temperature: 36 .4 (C) / 97.6 (F) Weight: Code: 77052-1 06/14/2017 Blood Pressure 1: 156/98 Code: 8480-6 Heart Rate 1: 84 bpm Height: 5'10" Code: 8302-2 Respiratory Rate: 20 bpm SpO2: 96% Temperature: 36 .9 (C) / 98.5 (F) Weight: Code: 35365-7 06/01/2017 Blood Pressure 1: 122/82 Code: 8480-6 Heart Rate 1: 68 bpm Height: 5'10" Code: 8302-2 Respiratory Rate: 20 bpm Temperature: 36.8 (C) / 98.2 (F) 03/30/2017 Blood Pressure 1: 124/78 Code: 8480-6 Heart Rate 1: 88 bpm Height: 5'10" Code: 8302-2 Respiratory Rate: 20 bpm SpO2: 96% Temperature: 36 .9 (C) / 98.4 (F) Weight: Code: 14633-0 01/17/2017 Blood Pressure 1: 126/74 Code: 8480-6 Heart Rate 1: 72 bpm Height: 5'10" Code: 8302-2 Respiratory Rate: 20 bpm SpO2: 96% Temperature: 37 .0 (C) / 98.6 (F) Weight: Code: 57787-1 12/18/2016 Blood Pressure 1: 128/86 Code: 8480-6 BMI: 24.7 Code: 55168-2 Heart Rate 1: 76 bpm Height: 5'10" Code: 8302-2 Respiratory Rate: 20 bpm SpO2: 96% Temperature: 36.8 (C) / 98.3 (F) Weight: 172 lbs Code: 68346-6 11/02/2016 Blood Pressure 1: 128/80 Code: 8480-6 BMI: 24.7 Code: 99567-5 Heart Rate 1: 72 bpm Height: 5'10" Code: 8302-2 Respiratory Rate: 20 bpm SpO2: 94% Temperature: 36.9 (C) / 98.4 (F) Weight: 172 lbs Code: 03826-7 10/24/2016 Blood Pressure 1: 120/78 Code: 8480-6 BMI: 24.7 Code: 20956-9 Heart Rate 1: 88 bpm Height: 5'10" Code: 8302-2 Respiratory Rate: 18 bpm SpO2: 96% Temperature: 36.5 (C) / 97.7 (F) Weight: 172 lbs Code: 89183-7 02/07/2016 Heart Rate 1: 76 bpm Respiratory Rate: 22 bpm SpO2: 96 % Temperature: 36.4 (C) / 97.6 (F) Weight: Code: 86714-3 05/26/2015 Blood Pressure 1: 124/70 Code: 8480-6 BMI: 25.1 Code: 91644-5 Heart Rate 1: 84 bpm Height: 5'10" Code: 8302-2 Respiratory Rate: 20 bpm Temperat ure: 36.7 (C) / 98.1 (F) Weight: 175 lbs Code: 75074-5 11/30/2014 Blood Pressure 1: 142/94 Code: 8480-6 BMI: 25.1 Code: 26644-9 Heart Rate 1: 80 bpm Height: 5'10" Code: 8302-2 Respiratory Rate: 20 bpm Temperat ure: 36.9 (C) / 98.5 (F) Weight: 175 lbs Code: 90186-6 07/23/2014 Blood Pressure 1: 138/86 Code: 8480-6 BMI: 25.0 Code: 26774-5 Heart Rate 1: 80 bpm Height: 5'10" Code: 8302-2 Respiratory Rate: 20 bpm Temperat ure: 36.4 (C) / 97.6 (F) Weight: 174 lbs Code: 46556-4 03/09/2014 Blood Pressure 1: 122/78 Code: 8480-6 BMI: 25.0 Code: 31666-3 Heart Rate 1: 78 bpm Height: 5'10" Code: 8302-2 Respiratory Rate: 24 bpm Temperat ure: 36.4 (C) / 97.6 (F) Weight: 174 lbs Code: 41422-2 02/05/2014 Blood Pressure 1: 132/80 Code: 8480-6 BMI: 25.0 Code: 85344-4 Heart Rate 1: 84 bpm Height: 5'10" Code: 8302-2 Respiratory Rate: 20 bpm Temperat ure: 36.6 (C) / 97.9 (F) Weight: 174 lbs Code: 91871-8 05/12/2013 Blood Pressure 1: 138/94 Code: 8480-6 BMI: 25.1 Code: 18596-6 Heart Rate 1: 92 bpm Height: 5'10" Code: 8302-2 Respiratory Rate: 20 bpm Temperat ure: 36.7 (C) / 98.1 (F) Weight: 175 lbs Code: 72463-0 04/07/2013 Blood Pressure 1: 136/72 Code: 8480-6 BMI: 25.1 Code: 01643-8 Heart Rate 1: 76 bpm Height: 5'10" Code: 8302-2 Respiratory Rate: 20 bpm Temperat ure: 36.7 (C) / 98.0 (F) Weight: 175 lbs Code: 85674-1 03/31/2013 Blood Pressure 1: 132/94 Code: 8480-6 BMI: 25.1 Code: 22846-9 Heart Rate 1: 76 bpm Height: 5'10" Code: 8302-2 Respiratory Rate: 20 bpm Temperat ure: 36.7 (C) / 98.0 (F) Weight: 175 lbs Code: 24692-3 10/09/2012 Blood Pressure 1: 132/80 Code: 8480-6 BMI: 24.8 Code: 90477-9 Heart Rate 1: 88 bpm Height: 5'10" Code: 8302-2 Temperature: 36.8 (C) / 98.3 (F) Weight: 173 lbs Code: 05080-8 03/28/2012 Blood Pressure 1: 126/82 Code: 8480-6 BMI: 24.7 Code: 52006-7 Heart Rate 1: 72 bpm Height: 5'10" Code: 8302-2 Respiratory Rate: 20 bpm Temperat ure: 36.6 (C) / 97.8 (F) Weight: 172 lbs Code: 19750-4 2012 Blood Pressure 1: 130/72 Code: 8480-6 Heart Rate 1: 80 bpm Height: Code: 8302-2 Temperature: 36.5 (C) / 97.7 (F) Weight: Code: 19254- 7 09/27/2011 Blood Pressure 1: 116/78 Code: 8480-6 BMI: 24.4 Code: 51262-8 Heart Rate 1: 76 bpm Height: 5'10" Code: 8302-2 Respiratory Rate: 20 bpm Temperat ure: 36.9 (C) / 98.4 (F) Weight: 170 lbs Code: 93930-4 09/13/2011 Blood Pressure 1: 124/82 Code: 8480-6 BMI: 24.4 Code: 99580-1 Heart Rate 1: 72 bpm Height: 5'10" Code: 8302-2 Respiratory Rate: 20 bpm Temperat ure: 36.4 (C) / 97.6 (F) Weight: 170 lbs Code: 34973-3 08/07/2011 Blood Pressure 1: 110/74 Code: 8480-6 BMI: 23.2 Code: 72956-2 Heart Rate 1: 60 bpm Height: 5'11" Code: 8302-2 Temperature: 36.4 (C) / 97.5 (F) Weight: 166 lbs Code: 55636-9 02/06/2011 Blood Pressure 1: 96/58 Code : 8480-6 01/20/2011 Blood Pressure 1: 112/78 Cod e: 8480-6 01/12/2011 Blood Pressure 1: 110/48 Code: 8480-6 He art Rate 1: 84 bpm 01/04/2011 Blood Pressure 1: 126/80 Code: 8480-6 Heart Rate 1: 76 bpm Temperature: 36.9 (C) / 98.4 (F) Weight: 168 lbs Code: 61303-4 02/14/2010 Blood Pressure 1: 134/82 Code: 8480-6 Heart Rate 1: 88 bpm Temperature: 36.6 (C) / 97.9 (F) 02/07/2010 Blood Pressure 1: 130/80 Code: 8480-6 BMI: 23.4 Code: 56726-1 Heart Rate 1: 84 bpm Height: 5'10" Code: 8302-2 Temperature: 36.4 (C) / 97.6 (F) Weight: 163 lbs Code: 99310-9 Functional Status No Functional Status data Reason For Visit Reason For Visit Effective Dates Notes follow up 08/02/2022 high blood pressure 08/02/2022 [...] up 05/03/2018 ER visit from last W ednesday vertigo 05/03/2018 high blood pressure 05/03/2018 nausea [...] Encounter Performer Location Location Address Codes Date ([id number]) OFFICE/OUTPATIENT VISIT EST Diagnosis: Atrial fibrillation and flutter[ICD10: I48.91] Diagnosis: Essential (primary) hypertension[ICD10: I10] Diagnosis: Stress[ICD10: F43.9] Diagnosis: Cough[ICD10: R05.9] Yvette STUART CristiGarrett JOANN [address] [address] CPT-4: 28124 08/02/20 ([id number]) OFFICE/OUTPATIENT VISIT EST Diagnosis: Atrial fibrillation and flutter[ICD10: I48.91] Yvette Rodriguez K[address] [address] CPT- 4: 46026 06/26/2022 ([id number]) OFFICE/OUTPATIENT VISIT EST Diagnosis: Chronic atrial fibrillation[ICD10: I48.20] Diagnosis: Essential hypertension[ICD10: I10] Diagnosis: Skin cancer of arm[ICD10: C44.601] Diagnosis: Mild chronic obstructive pulmonary disease[ICD10: J44.9] Yvette STUART CristiGarrett JOANN [address] [address] CPT-4: 98945 05/22/2022 ([id number]) NURSE/OUTPATIENT VISIT EST Diagnosis: Atrial fibrillation and flutter[ICD10: I48.91] Diagnosis: Hypothyroidism[ICD10: E03.9] Diagnosis: Mixed hyperlipidemia[ICD10: E78.2] Diagnosis: Anemia, unspecified[ICD10: D64.9] Diagnosis: Essential (primary) hypertension[ICD10: I10] Diagnosis: Hyperglycemia, unspecified[ICD10: R73.9] Yvette DAVID DO [address] [address] CPT- 4: 70715 02/28/2022 ([id number]) OFFICE/OUTPATIENT VISIT EST Diagnosis: Atypical nevus of right forearm[ICD10: D22.61] Diagnosis: Unspecified atrial flutter[ICD10: I48.92] Diagnosis: Atrial fibrillation and flutter[ICD10: I48.91] Yvette DAVID DO [address] [address] CPT- 4: 91380 02/27/2022 ([id number]) OFFICE/OUTPATIENT VISIT EST Diagnosis: Anxiety[ICD10: F41.9] Yvette DAVID DO [address] [address] CPT-4: 72012 11/23/2021 ([id number]) OFFICE/OUTPATIENT VISIT EST Diagnosis: Anxiety[ICD10: F41.9] Diagnosis: Stress reaction[ICD10: F43.0] Yvette DAVID DO [address] [address] CPT-4: 59085 10/12/2021 ([id number]) OFFICE/OUTPATIENT VISIT EST Diagnosis: Contact with and (suspected) exposure to covid-19[ICD10: Z20.822] Diagnosis: Nasopharyngitis[ICD10: J00] Diagnosis: Acute foreign body of left ear canal, initial encounter[ICD10: T16.2XXA] Diagnosis: Acute foreign body of right ear canal[ICD10: T16.1XXA] Martina Jessica YVETTE DAVID DO [address] [address] CPT-4: 77945 08/09/2021 ([id number]) OFFICE/OUTPATIENT VISIT EST Diagnosis: Essential (primary) hypertension[ICD10: I10] Diagnosis: Hypothyroidism[ICD10: E03.9] Diagnosis: Paroxysmal atrial fibrillation[ICD10: I48.0] Diagnosis: Hyperglycemia, unspecified[ICD10: R73.9] Yvette DAVID DO [facility] [address] [place] [address] CPT- 4: 18525 07/28/2021 ([id number]) NURSE/OUTPATIENT VISIT EST Diagnosis: Mixed hyperlipidemia[ICD10: E78.2] Diagnosis: Anemia, unspecified[ICD10: D64.9] Diagnosis: Essential (primary) hypertension[ICD10: I10] Diagnosis: Hypothyroidism, unspecified[ICD10: E03.9] Diagnosis: Hyperglycemia, unspecified[ICD10: R73.9] Yvette DAVID DO [address] [address] CPT- 4: 28466 07/20/2021 ([id number]) OFFICE/OUTPATIENT VISIT EST Diagnosis: Grieving[ICD10: F43.21] Diagnosis: Inflamed seborrheic keratosis[ICD10: L82.0] Yvette DAVID DO [address] [address] CPT- 4: 28071 05/12/2021 ([id number]) OFFICE/OUTPATIENT VISIT EST Diagnosis: Rhus dermatitis[ICD10: L25.5] Yvette DAVID DO [address] [address] CPT-4: 29683 03/08/2021 ([id number]) OFFICE/OUTPATIENT VISIT EST Diagnosis: Essential hypertension[ICD10: I10] Diagnosis: Chronic atrial fibrillation[ICD10: I48.20] Diagnosis: Mixed hyperlipidemia[ICD10: E78.2] Diagnosis: Hyperglycemia, unspecified[ICD10: R73.9] Diagnosis: Depression[ICD10: F32.9] Yvette COTE [address] [address] CPT-4: 44936 02/03/2021 ([id number]) NURSE/OUTPATIENT VISIT EST Diagnosis: Hyperglycemia, unspecified[ICD10: R73.9] Diagnosis: Mixed hyperlipidemia[ICD10: E78.2] Diagnosis: Essential (primary) hypertension[ICD10: I10] Diagnosis: Hypothyroidism, unspecified[ICD10: E03.9] Yvette DAVID DO [address] [address] CPT- 4: 19349 01/31/2021 ([id number]) OFFICE/OUTPATIENT VISIT EST Diagnosis: Vertigo[ICD10: R42] Diagnosis: Chronic atrial fibrillation[ICD10: I48.20] Diagnosis: Cerumen impaction[ICD10: H61.20] Diagnosis: Depression[ICD10: F32.9] Yvette COTE [address] [address] CPT-4: 29067 01/04/2021 ([id number]) NURSE/OUTPATIENT VISIT EST Diagnosis: Essential hypertension[ICD10: I10] Yvette DAVID [address] [address] CPT-4: 97410 10/05/2020 ([id number]) OFFICE/OUTPATIENT VISIT EST Diagnosis: Chronic atrial fibrillation[ICD10: I48.20] Diagnosis: Dizziness[ICD10: R42] Yvette DAVID DO [address] [address] CPT-4: 06623 09/20/2020 ([id number]) NURSE/OUTPATIENT VISIT EST Diagnosis: Dysplastic nevus of right lower extremity[ICD10: D23.71] Yvette DAVID DO [address] [address] CPT-4: 54469 05/28/2020 ([id number]) NURSE/OUTPATIENT VISIT EST Diagnosis: Essential (primary) hypertension[ICD10: I10] Diagnosis: Type 2 diabetes mellitus with hyperglycemia[ICD10: E11.65] Diagnosis: Anemia, unspecified[ICD10: D64.9] Diagnosis: Hypothyroidism, unspecified[ICD10: E03.9] Yvette DAVID DO [address] [address] CPT- 4: 54163 05/05/2020 ([id number]) OFFICE/OUTPATIENT VISIT EST Diagnosis: 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] Diagnosis: Paroxysmal atrial fibrillation[ICD10: I48.0] Yvette STUART CristiGarrett KUNNDER DO [address] [address] CPT- 4: 31604 02/11/2020 ([id number]) OFFICE/OUTPATIENT VISIT EST Diagnosis: Dermatitis[ICD10: L30.9] Diagnosis: 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] Diagnosis: Chronic pruritus[ICD10: L29.9] Yvette STUART Cristi Garrett KUNNDMAYE [address] [address] CPT-4: 91493 01/28/2020 ([id number]) OFFICE/OUTPATIENT VISIT EST Diagnosis: Diarrhea, unspecified[ICD10: R19.7] Diagnosis: Dizziness[ICD10: R42] Diagnosis: Generalized pruritus[ICD10: L29.9] Yvette COREA SGarrett KUNNDER DO [address] [address] CPT-4: 10691 01/05/2020 ([id number]) NURSE/OUTPATIENT VISIT EST Diagnosis: Renal insufficiency[ICD10: N28.9] Yvette Shahid SGarrett KUNNDER [address] [address] CPT-4: 22967 12/05/2019 ([id number]) NURSE/OUTPATIENT VISIT EST Diagnosis: Renal insufficiency[ICD10: N28.9] Diagnosis: Dehydration[ICD10: E86.0] Yvette STUART CristiGarrett KUN NDER DO [address] [address] CPT-4: 48655 11/05/2019 ([id number]) OFFICE/OUTPATIENT VISIT EST Diagnosis: Chronic atrial fibrillation[ICD10: I48.20] Diagnosis: Renal insufficiency[ICD10: N28.9] Diagnosis: Dizziness and giddiness[ICD10: R42] Yvette COLEMAN SGarrett UBSTOSNDER DO [facility] [address] [place] [address] CPT-4: 43069 10/29/2019 ([id number]) NURSE/OUTPATIENT VISIT EST Diagnosis: Hematuria, unspecified[ICD10: R31.9] Yvette MENA Michael BUSTOSNDER DO [address] [address] CPT-4: 00910 10/23/2019 ([id number]) NURSE/OUTPATIENT VISIT EST Diagnosis: Encounter for general adult medical examination without abnormal findings[ICD10: Z00.00] Diagnosis: Essential (primary) hypertension[ICD10: I10] Diagnosis: Hypothyroidism, unspecified[ICD10: E03.9] Diagnosis: Mixed hyperlipidemia[ICD10: E78.2] Yvette COREA Michael BUSTOSNDER DO [address] [address] CPT-4: 63543 10/21/2019 ([id number]) OFFICE/OUTPATIENT VISIT EST Diagnosis: Cerumen impaction[ICD10: H61.20] Diagnosis: Dizziness[ICD10: R42] Diagnosis: Gastritis[ICD10: K29.70] Diagnosis: Dehydration[ICD10: E86.0] Natalee MERCADOLINE Michael BUSTOS NDER DO [address] [address] CPT-4: 29228 10/20/2019 ([id number]) OFFICE/OUTPATIENT VISIT EST Diagnosis: Paroxysmal atrial fibrillation[ICD10: I48.0] Diagnosis: Essential hypertension[ICD10: I10] Yvette COREA SGarrett BUSTOSNDER DO [address] [address] CPT-4: 11895 07/07/2019 ([id number]) OFFICE/OUTPATIENT VISIT EST Diagnosis: Essential (primary) hypertension[ICD10: I10] Yvette STUART Michael BUSTOSNDER DO [address] [address] CPT- 4: 84867 05/01/2019 ([id number]) OFFICE/OUTPATIENT VISIT EST Diagnosis: Essential (primary) hypertension[ICD10: I10] Diagnosis: Localized edema[ICD10: R60.0] Yvette DAVID [address] [address] CPT-4: 64599 04/15/2019 ([id number]) NURSE/OUTPATIENT VISIT EST Diagnosis: Essential (primary) hypertension[ICD10: I10] Diagnosis: Hypothyroidism, unspecified[ICD10: E03.9] Diagnosis: Mixed hyperlipidemia[ICD10: E78.2] Yvette DAVID [address] [address] CPT-4: 13917 04/04/2019 ([id number]) NURSE/OUTPATIENT VISIT EST Diagnosis: Essential (primary) hypertension[ICD10: I10] Diagnosis: Hyperglycemia, unspecified[ICD10: R73.9] Diagnosis: Hypothyroidism, unspecified[ICD10: E03.9] Diagnosis: Mixed hyperlipidemia[ICD10: E78.2] Yvette DAVID [address] [address] CPT-4: 63496 10/07/2018 ([id number]) OFFICE/OUTPATIENT VISIT EST Diagnosis: Essential (primary) hypertension[ICD10: I10] Diagnosis: Presence of right artificial knee joint[ICD10: Z96.651] Diagnosis: Unspecified hearing loss, left ear[ICD10: H91.92] Yvette DAVID [address] [address] CPT- 4: 60945 08/08/2018 OFFICE/OUTPATIENT VISIT EST Diagnosis: Impacted cerumen, bilateral[ICD10: H61.23] Diagnosis: Vertigo of central origin, bilateral[ICD10: H81.43] Diagnosis: Essential (primary) hypertension[ICD10: I10] Diagnosis: Paroxysmal atrial fibrillation[ICD10: I48.0] Diagnosis: Dizziness and giddiness[ICD10: R42] Diagnosis: Sudden idiopathic hearing loss, left ear[ICD10: H91.22] Yvette Orender [address] [address] CPT-4: 28320 06/25/2018 ([id number]) OFFICE/OUTPATIENT VISIT EST Diagnosis: Essential (primary) hypertension[ICD10: I10] Diagnosis: Vertigo of central origin, bilateral[ICD10: H81.43] Yvette DAVID [address] [address] CPT-4: 94692 05/10/2018 ([id number]) OFFICE/OUTPATIENT VISIT EST Diagnosis: Allergic rhinitis due to pollen[ICD10: J30.1] Diagnosis: Dizziness and giddiness[ICD10: R42] Diagnosis: Vertigo of central origin, bilateral[ICD10: H81.43] Diagnosis: Essential (primary) hypertension[ICD10: I10] Yvette DAVID [address] [address] CPT- 4: 81139 05/03/2018 OFFICE/OUTPATIENT VISIT EST Diagnosis: Hypothyroidism, unspecified[ICD10: E03.9] Diagnosis: Mixed hyperlipidemia[ICD10: E78.2] Diagnosis: Essential (primary) hypertension[ICD10: I10] Diagnosis: Paroxysmal atrial fibrillation[ICD10: I48.0] Diagnosis: Obstructive sleep apnea (adult) (pediatric)[ICD10: G47.33] Diagnosis: Unilateral primary osteoarthritis, right knee[ICD10: M17.11] Yvette DAVID [address] [address] CPT-4: 85012 04/22/2018 ([id number]) OFFICE/OUTPATIENT VISIT EST Diagnosis: Zoster without complications[ICD10: B02.9] Natalee DAVID [address] [address] CPT- 4: 56939 03/05/2018 ([id number]) NURSE/OUTPATIENT VISIT EST Diagnosis: Hypothyroidism, unspecified[ICD10: E03.9] Diagnosis: Mixed hyperlipidemia[ICD10: E78.2] Diagnosis: Essential (primary) hypertension[ICD10: I10] Diagnosis: Paroxysmal atrial fibrillation[ICD10: I48.0] Yvette DAVID DO [facility] [address] [place] [address] CPT- 4: 42776 02/13/2018 ([id number]) OFFICE/OUTPATIENT VISIT EST Diagnosis: Obstructive sleep apnea (adult) (pediatric)[ICD10: G47.33] Diagnosis: Essential (primary) hypertension[ICD10: I10] Diagnosis: Paroxysmal atrial fibrillation[ICD10: I48.0] Yvette BUSTOSNDMAYE BORJA [facility] [address] [place] [address] CPT- 4: 54317 10/18/2017 ([id number]) OFFICE/OUTPATIENT VISIT EST Diagnosis: Hypothyroidism, unspecified[ICD10: E03.9] Diagnosis: Other vitamin B12 deficiency anemias[ICD10: D51.8] Diagnosis: Essential (primary) hypertension[ICD10: I10] Diagnosis: Mixed hyperlipidemia[ICD10: E78.2] Yvette COREA Michael DAVID [employer] [address] [address] CPT-4: 74021 10/15/2017 OFFICE/OUTPATIENT VISIT EST Diagnosis: Impacted cerumen, bilateral[ICD10: H61.23] Diagnosis: Acute sinusitis, unspecified[ICD10: J01.90] Natalee DAVID [address] [address] CPT- 4: 38654 07/24/2017 ([id number]) OFFICE/OUTPATIENT VISIT EST Diagnosis: Obstructive sleep apnea (adult) (pediatric)[ICD10: G47.33] Diagnosis: Tachycardia, unspecified[ICD10: R00.0] Yvette QUINONES Michael BUSTOSNDMAYE [address] [address] CPT-4: 65136 06/14/2017 ([id number]) OFFICE/OUTPATIENT VISIT EST Diagnosis: Zoster without complications[ICD10: B02.9] Demi Rocha YVETTE DAVID [employer] [address] [address] CPT- 4: 42671 06/01/2017 ([id number]) OFFICE/OUTPATIENT VISIT EST Diagnosis: Essential (primary) hypertension[ICD10: I10] Diagnosis: Tachycardia, unspecified[ICD10: R00.0] Diagnosis: Other vitamin B12 deficiency anemias[ICD10: D51.8] Yvette DILLONQUELINE CristiGarrett JOANN [address] [address] CPT- 4: 02475 03/30/2017 ([id number]) OFFICE/OUTPATIENT VISIT EST Diagnosis: Essential (primary) hypertension[ICD10: I10] Diagnosis: Other fatigue[ICD10: R53.83] Diagnosis: Other chest pain[ICD10: R07.89] Diagnosis: Snoring[ICD10: R06.83] Yvette Kunnate Vega [address] [address] CPT-4: 88980 01/17/2017 ([id number]) OFFICE/OUTPATIENT VISIT EST Diagnosis: Encounter for general adult medical examination without abnormal findings[ICD10: Z00.00] Diagnosis: Hypothyroidism, unspecified[ICD10: E03.9] Diagnosis: Essential (primary) hypertension[ICD10: I10] Diagnosis: Mixed hyperlipidemia[ICD10: E78.2] Diagnosis: Other shelter (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[ICD10: Z79.899] Diagnosis: Hyperglycemia, unspecified[ICD10: R73.9] Yvette Kunvetomaye YVETTE CristiGarrett JOANN [address] [address] CPT- 4: 84290 12/11/2016 ([id number]) OFFICE/OUTPATIENT VISIT EST Diagnosis: URI, ACUTE[ICD10: J06.9] Diagnosis: Cough[ICD10: R05] Yvette Kunnate Rodriguez KUNNATE [address] [address] CPT-4: 71683 11/02/19 ([id number]) OFFICE/OUTPATIENT VISIT EST Diagnosis: Acute upper respiratory infection, unspecified[ICD10: J06.9] Elidia TAYLORER DO [address] [address] CPT-4: 02096 10/24/2016 ([id number]) OFFICE/OUTPATIENT VISIT EST Diagnosis: Nausea[ICD10: R11.0] Diagnosis: Diarrhea, unspecified[ICD10: R19.7] Diagnosis: Dizziness and giddiness[ICD10: R42] Elidia WAYNE JARED Michael BUSTOSNDER DO [address] [address] CPT-4: 71819 02/07/2016 ([id number]) OFFICE/OUTPATIENT VISIT EST Diagnosis: HYPOTHYROIDISM[ICD9: 244.9] Diagnosis: HYPERLIPIDEMIA NEC/NOS[ICD9: 272.4] Diagnosis: ANEMIA NOS[ICD9: 285.9] Diagnosis: HYPERTENSION[ICD9: 401.9] Diagnosis: Neuropathy[ICD9: 355.9] Yvette Kunvetomaye YVETTE CristiGarrett KUNND ER DO [address] [address] CPT-4: 61629 05/27/2015 ([id number]) OFFICE/OUTPATIENT VISIT EST Diagnosis: Neuropathy[ICD9: 355.9] Diagnosis: Foot pain[ICD9: 729.5] Diagnosis: HYPOTHYROIDISM[ICD9: 244.9] Diagnosis: PNEUMOCOCCAL VACCINE[ICD10: Z23] Yvette Kunvetomaye YVETTE CristiGarrett KUNNDER DO [address] [address] CPT-4: 70025 05/26/2015 ([id number]) OFFICE/OUTPATIENT VISIT EST Diagnosis: Hematochezia[ICD9: 578.1] Yvette Kunnate STUART CristiGarrett KUN NDER DO [address] [address] CPT-4: 43325 02/19/2015 ([id number]) OFFICE/OUTPATIENT VISIT EST Diagnosis: Hematochezia[ICD9: 578.1] Yvette STUART CristiGarrett KNU NDER DO [address] [address] CPT-4: 84665 01/20/2015 ([id number]) OFFICE/OUTPATIENT VISIT EST Diagnosis: Hematochezia[ICD9: 578.1] Yvette BUSTOS NDER DO [address] [address] CPT-4: 19269 12/15/2014 ([id number]) OFFICE/OUTPATIENT VISIT EST Diagnosis: TINEA PEDIS[ICD9: 110.4] Diagnosis: Ceruminosis[ICD9: 380.4] Earline SmileyWhitneymargarita MERCADOLINE CristiGarrett KAMRONLilly CHAIREZ DO [address] [address] CPT-4: 19965 11/30/2014 ([id number]) OFFICE/OUTPATIENT VISIT EST Diagnosis: HYPERLIPIDEMIA NEC/NOS[ICD9: 272.4] Yvette WAYNE JARED CristiGarrett BRANDONMAYE DO [address] [address] CPT-4: 71483 11/26/2014 ([id number]) OFFICE/OUTPATIENT VISIT EST Diagnosis: HYPOTHYROIDISM[ICD9: 244.9] Diagnosis: HYPERLIPIDEMIA NEC/NOS[ICD9: 272.4] Diagnosis: ANEMIA NOS[ICD9: 285.9] Diagnosis: HYPERTENSION[ICD9: 401.9] Yvette MERCADOLINE CritsiGarrett KUN AKHTARR DO [address] [address] CPT-4: 79686 08/14/2014 ([id number]) OFFICE/OUTPATIENT VISIT EST Diagnosis: GERD[ICD9: 530.81] Diagnosis: COUGH[ICD10: R05] Yvette MERCADOLINE CristiGarrett BRANDONER DO [address] [address] CPT-4: 82445 07/23/20 14 OFFICE/OUTPATIENT VISIT EST Diagnosis: Heel pain[ICD9: 729.5] Earline SmileyWhitneymargarita MERCADOLINE CristiGarrett KUNGIOVANA R DO [address] [address] CPT-4: 44416 03/09/2014 ([id number]) OFFICE/OUTPATIENT VISIT EST Diagnosis: HYPOTHYROIDISM[ICD9: 244.9] Diagnosis: HYPERLIPIDEMIA NEC/NOS[ICD9: 272.4] Diagnosis: Right medial knee pain[ICD9: 719.46] Yvette MENA CristiGarrett JOANN DO [address] [address] CPT-4: 12717 02/05/2014 ([id number]) OFFICE/OUTPATIENT VISIT EST Diagnosis: HYPOTHYROIDISM[ICD9: 244.9] Diagnosis: HYPERLIPIDEMIA NEC/NOS[ICD9: 272.4] Diagnosis: HYPERTENSION[ICD9: 401.9] Diagnosis: ANEMIA NOS[ICD9: 285.9] Diagnosis: MALAISE AND FATIGUE[ICD9: 780.79] Yvette KONG Zehra DAVID DO [address] [address] CPT-4: 70841 02/04/2014 OFFICE/OUTPATIENT VISIT EST Diagnosis: Right medial knee pain[ICD9: 719.46] Diagnosis: Degeneration, intervertebral disc, lumbar[ICD9: 722.52] Diagnosis: Low back pain[ICD9: 724.2] Earline STUART CristiGarrett LUISITO STEFAN DO [address] [address] CPT-4: 04611 05/12/2013 ([id number]) OFFICE/OUTPATIENT VISIT EST Diagnosis: Lumbar degenerative disc disease[ICD9: 722.52] Diagnosis: Bulging lumbar disc[ICD9: 722.10] Yvette KONG Zehra ColinGarrett JOANN DO [address] [address] CPT-4: 71215 04/07/2013 ([id number]) OFFICE/OUTPATIENT VISIT EST Diagnosis: PAIN, LOWER BACK[ICD9: 724.2] Diagnosis: SPASM OF MUSCLE[ICD9: 728.85] Diagnosis: Lumbar degenerative disc disease[ICD9: 722.52] Yvette STUART CristiGarrett JOANN DO [address] [address] CPT- 4: 50410 03/31/2013 ([id number]) OFFICE/OUTPATIENT VISIT EST Diagnosis: Greater trochanteric bursitis[ICD9: 726.5] Diagnosis: DYSPEPSIA[ICD9: 536.8] Yvette HYLTON R [address] [address] CPT-4: 60975 10/09/2012 OFFICE/OUTPATIENT VISIT EST Diagnosis: CYSTOCELE NOS[ICD9: 618.01] Diagnosis: GERD[ICD9: 530.81] Diagnosis: VAGINITIS[ICD9: 623.5] Yvette Vega [address] [address] CPT-4: 95426 03/28/2012 ([id number]) OFFICE/OUTPATIENT VISIT EST Diagnosis: HYPOTHYROIDISM[ICD9: 244.9] Diagnosis: HYPERLIPIDEMIA NEC/NOS[ICD9: 272.4] Diagnosis: HYPERTENSION[ICD9: 401.9] Diagnosis: ANEMIA NOS[ICD9: 285.9] Yvette MERCADOLINE Michael VILLAVICENCIO [address] [address] CPT-4: 09522 03/18/2012 OFFICE/OUTPATIENT VISIT EST Diagnosis: CERUMEN IMPACTION[ICD9: 380.4] Diagnosis: OTALGIA[ICD9: 388.70] Reyna Eldon YVETTE DAVID [address] [address] CPT-4: 31058 2012 OFFICE/OUTPATIENT VISIT EST Diagnosis: COUGH[ICD9: 786.2] Diagnosis: Cystocele[ICD9: 618.01] Diagnosis: VAGINITIS[ICD9: 623.5] Diagnosis: ROUTINE GYNE EXAM[ICD9: V72.31] Yvette MERCADOLINE CristiGarrett JOANN [address] [phone] CPT-4: 46920 09/27/2011 SPECIMEN HANDLING Diagnosis: [ICD9: ] Diagnosis: [ICD9: ] Diagnosis: [ICD9: ] Diagnosis: [ICD9: ] Yvette Taylormaye YVETTE CristiGarrett JOANN [address] [address] CPT-4: 23102 09/27/2011 OFFICE/OUTPATIENT VISIT EST Diagnosis: PHARYNGITIS, ACUTE[ICD9: 462] Diagnosis: URI, ACUTE[ICD9: 465.9] [facility] [address] [place] [phone] CPT-4: 62697 09/13/2011 OFFICE/OUTPATIENT VISIT EST Diagnosis: PHARYNGITIS, ACUTE[ICD9: 462] Diagnosis: COUGH[ICD9: 786.2] Yvette [facility] [address] [place] [phone] CPT-4: 73343 08/07/20 11 ([id number]) OFFICE/OUTPATIENT VISIT EST Yvette Rodriguez ORENDER DO [employer] [address] [place] [phone] CPT-4: 63692 01/04/2011 (40227) OFFICE/OUTPATIENT VISIT, EST Yvette Rodriguez ORENDER DO [employer] [address] [place] [phone] CPT-4: 53793 02/14/2010 (14036) OFFICE/OUTPATIENT VISIT, EST Yvette Rodriguez ORENDER DO [employer] [address] [place] [phone] CPT-4: 53174 02/07/2010 Plan of Care Planned Activity Notes Codes Status Date Visit Diagnosis Plan: Stress Recommendations: Increase effexor [...] in AM and add singulair at night [id number] ICD-9 : 786.2 ICD-10 : R05.9 08/02/2022 Patient Education: Singulair- Optimize[employer] Coupon [id number] https://www.[employer].Wize/samplemd/resources/getResource/61/[email or web address] Completed 08/02/2022 Visit Diagnosis Plan: Atrial fibrillation and flutter Discussion: Increase metoprolol to 50mg po BID Increase amiodarone to 200mg po BID Fwup 1month Defers flu shot ICD-9 : 427.31 ICD-10 : I48.91 06/26/2022 Appointment: Yvette David WPtel: [phone] [facility] FOLLOW UP 06/26/2022 Patient Education: metoprolol succinate- OptimizeRX Co upon [id number] https://www.[employer]/[facility] [facility]/resources/getResource/61/[email or web address] Completed 06/26/2022 Referral: Lino Davila [address] [place] [address] [id number] [place] Referral Completed 05/23/2022 Visit Diagnosis Plan: [...] : J44.9 05/22/2022 Appointment: Yvette David WPtel: [address] [place], [place] [phone] [place] FOLLOW UP 05/22/2022 Referral: Anuj Eng WPtel: #1 [facility] Lior Holm [id number] US Referral Appointment Confirmed 03/08/2022 Appointment: Yvette David WPtel: [address] [place], [place] [phone] US LAB 02/28/2022 Visit Diagnosis Plan: Unspecified [...] : I48.91 02/27/2022 Appointment: Yvette David WPtel: [address] [place], [place] [phone] ACUTE ILLNESS 02/27/2022 Care Plan: Referral Order SNOMED-CT : 30 [id number] Pending 02/27/2022 Care Plan: Referral Order SNOMED-CT : 30 1067572 Pending 02/27/2022 Appointment: Yvette David WPtel: [address] [place], [place] [phone] US CANCELED 12/06/2021 Visit Diagnosis Plan: Anxiety Discussion: Improving wi th effexor--wants to keep dose the same ICD-9 : 300.00 ICD-10 : F41.9 11/23/2021 Appointment: Yvette David WPtel: [address] [place], [place] [phone] US FOLLOW UP 11/23/2021 Visit Diagnosis Plan: Anxiety Discussion: Restart effe xor XR at 37.5mg daily Stress Reducers Fwup 6 weeks No tremors noted today ICD-9 : 300.00 ICD-10 : F41.9 10/12/2021 Appointment: Yvette David WPtel: [phone] [phone] ACUTE ILLNESS 10/12/2021 Visit Plan: Supportive care. [...] : T16.2XXA 08/09/2021 Appointment: [facility] [phone] [facility] 08/09/2021 Patient Education: Patient Medication [...] : R73.9 07/28/2021 Appointment: Yvette David WPtel: [address] [place], [place] [address] FOLLOW UP 07/28/2021 Appointment: Yvette David WPtel: [address] [place] [address] US LAB 07/20/2021 Visit Diagnosis Plan: Grieving Discussion: Restart Eff exor XR 37.5mg po q AM ICD-9 : 309.0 ICD-10 : F43.21 05/12/2021 Visit Diagnosis Plan: Inflamed seborrheic keratosis Di scussion: Cryotherapy as above ICD-9 : 702.11 ICD-10 : L82.0 05/12/2021 Appointment: Yvette David WPtel: [address] [place], [place] [phone] US FOLLOW UP 05/12/2021 Appointment: Yvette David WPtel: [address] [place] [address] US assisted patient with opening her eye drops for cataract liane an (km) CANCELED 03/22/2021 Visit Diagnosis Plan: Rhus dermatitis Discussion: Marielena log 40mg IM x1 Can continue TAC ICD-9 : 692.6 ICD-10 : L25.5 03/08/2021 Appointment: Yvette David WPtel: [address] [place] [address] US FOLLOW UP 03/08/2021 Visit Diagnosis Plan: [...] 427.31 ICD-10 : I48.20 02/03/2021 Appointment: Yvette Davidtel: [address] [place], [place] [phone] FOLLOW UP 02/03/2021 Appointment: Yvette David WPtel: [address] [place], [place] [phone] US LAB 01/31/2021 Visit Diagnosis Plan: Chronic [...] : H61.20 01/04/2021 Appointment: Yvette David WPtel: [phone] [phone] ACUTE ILLNESS 01/04/2021 Appointment: Yvette David WPtel:[phone] [facility] [facility] [facility] BP CHECK 10/05/2020 Visit Diagnosis Plan: Chronic atrial fibrillation Disc ussion: Due to symptomatic bradycardia will decrease metoprolol ER to 25mg po BID Bring by BP and pulse readings in 2 weeks ICD-9 : 427.31 ICD-10 : I48.20 09/20/2020 Appointment: Yvette David WPtel: [address] [place], [place] [phone] ACUTE ILLNESS 09/20/2020 Appointment: Yvette David WPtel: [facility]8 [phone] NURSE SERVICES 05/28/2020 Visit Diagnosis Plan: Dysplastic nevus of right lower extremity Discussion: Removal as above and sent to pathology Return in 10 days for suture removal ICD-9 : 216.7 ICD-10 : D23.71 05/19/2020 Appointment: Yvette David WPtel: [facility] FO[facility] UP 05/19/2020 Visit Diagnosis Plan: Diarrhea [...] 05/11/2020 Visit Diagnosis Plan: Encounter for [facility] adult medical examination without abnormal findings Discussion: [...] I48.20 05/11/2020 Appointment: Yvette David WPtel: [phone] [phone] Annual Well Visit 05/11/2020 Appointment: Yvette David WPtel: [phone] [phone] US LAB 05/05/2020 Visit Diagnosis Plan: Chronic [...] : I48.0 02/11/2020 Appointment: Yvette David WPtel: [phone] [phone] US FOLLOW UP 02/11/2020 Visit Diagnosis Plan: [...] : L29.8 01/28/2020 Appointment: Yvette David WPtel: [address] [place], [place] [address] ACUTE ILLNESS 01/28/2020 Patient Education: hydroxyzine HCl- OptimizeRX Coupon [id number] https://www.[employer]/samplemd/resources/getResource/61/[email or web address] Completed 01/28/2020 Visit Diagnosis Plan: Diarrhea, unspecified [...] : R42 01/05/2020 Appointment: Yvette David WPtel: [address] [place], [place] [address] ACUTE ILLNESS 01/05/2020 Appointment: Yvette David WPtel: [address] [place], [place] [address] US LAB 12/05/2019 Appointment: Yvette David WPtel: [address] [place], [place] [address] US LAB 11/05/2019 Visit Diagnosis Plan: Dizziness [...] N28.9 10/29/2019 Appointment: Yvette David WPtel: [phone] [phone] US FOLLOW UP 10/29/2019 Appointment: Yvette David WPtel: [phone] [place] [phone] US UA 10/23/2019 Appointment: Yvette David WPtel: [phone] [phone] US LAB 10/21/2019 Visit Diagnosis Plan: Dizziness [...] ICD-10 : H61.20 10/20/2019 Appointment: Natalee Gray [address] [place], [place] [id number] ACUTE ILLNESS 10/20/2019 Patient Education: meclizine- OptimizeRX Coupon [id number] https://www.[facility] [facility].com/samplemd/resources/getResource/61/[email or web address]-33ov-do Completed 10/20/2019 Appointment: Yvette David WPtel: [phone] [phone] US Canceled, Said patient was feeling lots [...] : I48.0 07/07/2019 Appointment: Yvette David WPtel: [address] [place], [place] [phone] FOLLOW UP 07/07/2019 Visit Diagnosis Plan: Essential (primary) hypertension Discussion: Increase HCTZ to 25mg daily Call in 1 week with BP readings ICD-9 : 401.9 ICD-10 : I10 05/01/2019 Appointment: Yvette David WPtel: [address] [place], [place] [phone] FOLLOW UP 05/01/2019 Visit Diagnosis Plan: Essential (primary) hypertension Discussion: Change metoprolol to 50mg po q AM and 100mg po q PM Add HCTZ 12.5mg po q AM Monitor home BP and pulse Recheck 2 weeks Start Cardiac Rehab or Wellness ICD-9 : 401.1 ICD-10 : I10 04/15/2019 Appointment: Yvette David WPtel: [address] [place], [place] [phone] FOLLOW UP 04/15/2019 Patient Education: hydrochlorothiazide- OptimizeRX Cou ministerio [id number] https://www.[facility] [facility].com/sampleks/resources/getResource/61/[email or web address]-fy Completed 04/15/2019 Appointment: Yvette David WPtel: [facility]8 [phone] US LAB 04/04/2019 Care Plan: US EXAM CHEST US of left breast LOINC : 73165-8 Pending 03/17/2019 Visit Diagnosis Plan: Hypothyroidism, unspecified Disc ussion: Stable ICD-9 : 244.9 ICD-10 : E03.9 11/26/2018 Visit Diagnosis Plan: Paroxysmal atrial fibrillation D iscussion: Stable ICD-9 : 427.31 ICD-10 : I48.0 11/26/2018 Visit Diagnosis Plan: Encounter for [facility] adult medical examination without abnormal findings Discussion: Mediterranean diet Combinati on of cardio and weight bearing exercise Recommend Shingrix Lab and fwup in March ICD-9 : V70.9 ICD-10 : Z00.00 11/26/2018 Visit Diagnosis Plan: Essential (primary) hypertension Discussion: Stable ICD-9 : 401.1 ICD-10 : I10 11/26/2018 Appointment: Yvette David WPtel: [address] [place], [place] [phone] Annual Well Visit 11/26/2018 Appointment: Yvette David WPtel: [address] [place] [phone] LAB 10/07/2018 Visit Diagnosis Plan: Presence of [...] : H91.92 08/08/2018 Appointment: Yvette David WPtel: [address] [place] [address] FOLLOW UP 08/08/2018 Appointment: Natalee Gray [address] [place] [address] CANCELED 07/18/2018 Visit Diagnosis Plan: Sudden idiopathic [...] 401.1 ICD-10 : I10 06/25/2018 Appointment: Yvette Davidtel: [phone] [phone] [facility] Follow Up 06/25/2018 Patient Education: Patient Medication Summary Completed 06/25/2018 Appointment: Yvette Davidtel: [facility]1 [phone] BP CHECK 05/20/2018 Patient Education: Patient Medication [...] 401.1 ICD-10 : I10 05/10/2018 Appointment: Yvette Davidtel: [address] [place], [place] [phone] FOLLOW UP 05/10/2018 Patient Education: Patient Medication [...] 401.9 ICD-10 : I10 05/03/2018 Appointment: Yvette Davidl: [phone] [place] [phone] ACUTE ILLNESS 05/03/2018 Patient Education: Patient Medication [...] E03.9 04/22/2018 Appointment: Yvette David WPtel: [phone] [place] [phone] FOLLOW UP 04/22/2018 Patient Education: Patient Medication [...] ICD-10 : B02.9 03/05/2018 Appointment: Natalee Gray [address] [place] [address] ACUTE ILLNESS 03/05/2018 Patient Education: Patient Medication [...] ICD-10 : H61.23 02/19/2018 Appointment: Natalee Gray [address] [place] [address] ACUTE ILLNESS 02/19/2018 Patient Education: Patient Medication Summary Completed 02/19/2018 Appointment: Yvette David WPtel: [address] [place] [phone] LAB 02/13/2018 Patient Education: Patient Medication Summary [...] : G47.33 10/18/2017 Appointment: Yvette David WPtel: [address] [place], [place] [phone] FOLLOW UP 10/18/2017 Patient Education: Patient Medication Summary Completed 10/18/2017 Appointment: Yvette David WPtel: [facility]9 [phone] LAB 10/15/2017 Patient Education: Patient Medication Summary [...] ICD-10 : H61.23 07/24/2017 Appointment: Natalee Gray [address] [place] [address] ACUTE ILLNESS 07/24/2017 Patient Education: Patient Medication Summary Completed 07/24/2017 Referral: Jey Kaye WPtel: [address] [place] [id number] [place] Referral Initiated 07/05/2017 Patient Education: Patient Medication [...] R00.0 06/14/2017 Appointment: Yvette David WPtel: [phone] [phone] FOLLOW UP 06/14/2017 Patient Education: Patient Medication Summary Completed 06/14/2017 Care Plan: Referral Order SNOMED-CT : 30 [id number] Pending 06/14/2017 Visit Plan: ERx for Valtrex, system won' t allow ERx for Prednisone so it is called 10mg 2 po bid x 3 days then 1 po bid x 3 days then 1 po daily x 3 days then 1/2 po daily x 3 days then d/c She declines gabapentin or pain meds Anticipatory guidance discussed. 06/01/2017 Appointment: Demi Rocha WPtel: [phone] [facility] ACUTE ILLNESS 06/01/2017 Patient Education: Patient [...] D51.8 03/30/2017 Appointment: Yvette David WPtel: [phone] [phone] 7/6 lm ~sl FOLLOW UP 03/30/2017 [...] : R53.83 01/17/2017 Appointment: Yvette David WPtel: [phone] 01/16 lm`sl FOLLOW UP 01/17/2017 Patient Education: [...] G62.9 12/18/2016 Visit Diagnosis Plan: Encounter for [facility] adult medical examination without abnormal findings Discussion: Increase activity and contin ue healthy eating Continune using urinary incontinence pads at night for nocturia Reviewed labs ICD-9 : V70.9 ICD-10 : Z00.00 12/18/2016 Appointment: Yvette Davidtel: [facility]1 [phone] 11/13 confirmed ~sl Annual Well Visit 12/18/2016 Patient Education: Patient Medication Summary Completed 12/18/2016 Appointment: Yvette David WPtel: [address] [place], [place] [phone] US LAB 12/11/2016 Patient Education: Patient Medication [...] 786.2 ICD-10 : R05 11/02/2016 Appointment: Yvette Davidtel: [facility]3 [phone] US FOLLOW UP 11/02/2016 Appointment: Yvette Davidtel: [address] [place], [place] [phone] US CANCELED 11/02/2016 Patient Education: Patient Medication Summary Completed 11/02/2016 Visit Diagnosis Plan: Acute upper respiratory infectio n, unspecified Discussion: Rx as above Discussed OTC meds and supportive care Notify if not improving so regimen can be changed before her upcoming trip in 2 weeks ICD-9 : 465.9 ICD-10 : J06.9 10/24/2016 Appointment: Elidia Calix [address] [place], [place] [phone] ACUTE ILLNESS 10/24/2016 Patient Education: Patient Medication Summary Completed 10/24/2016 Patient Education: Patient Medication Summary Completed 06/26/2016 Visit Plan: Office dip wnl/BP wnl Does s eem likely to be viral GI illness Supportive care with rxs as above Soft and bland diet Will need bloodwork if not improving 02/07/2016 Appointment: Elidia Calix [address] [place], [place] [phone] ACUTE ILLNESS 02/07/2016 Patient Education: Patient Medication Summary Completed 02/07/2016 Patient Education: Patient Medication Summary Completed 07/01/2015 Appointment: Yvette David WPtel: [address] [place], [place] [phone] US LAB 05/27/2015 Patient Education: Patient Medication Summary Completed 05/27/2015 Visit Plan: Trial of Gralise 300mg at be dtiwv with 4 oz tonic water Sharron's solution soaks to feet Check TSH, Free T4, B12, CMP, HbA1C now Call in 2weeks 05/26/2015 Appointment: Yvette David WPtel: [address] [place], [place] [phone] 05/25/2015 confirmed w patient ACUTE ILLNESS 10/2014 Patient Education: Patient Medication Summary Completed 05/26/2015 Appointment: Yvette David WPtel: [facility]8 [phone] US Stool lab 02/19/2015 Patient Education: Patient Medication Summary Completed 02/19/2015 Appointment: Yvette David WPtel: [facility]0 [phone] US Stool lab 01/20/2015 Patient Education: Patient Medication Summary Completed 01/20/2015 Appointment: Yvette David WPtel: [phone] [phone] US LAB 12/15/2014 Patient Education: Patient Medication Summary Completed 12/15/2014 Appointment: Earline Morris WPtel: [address] [place] [address] ACUTE ILLNESS 11/30/2014 Patient Education: Patient Medication Summary Completed 11/30/2014 Appointment: Yvette David WPtel: [address] [place], [place] [phone] US LAB 11/26/2014 Patient Education: Patient Medication Summary Completed 11/26/2014 Appointment: Yvette David WPtel: [address] [place], [place] [phone] US LAB 08/14/2014 Patient Education: Patient Medication Summary Completed 08/14/2014 Visit Plan: Defers bone density Proceed with colonoscopy Change omeprazole to protonix Due for fasting lab next month 07/23/2014 Appointment: Yvette David WPtel: [address] [place], [place] [phone] ACUTE ILLNESS 07/23/2014 Patient Education: Patient Medication Summary Completed 07/23/2014 Patient Education: Patient Medication Summary Completed 06/05/2014 Appointment: Earline Morris WPtel: [address] [place], [place] [phone] FOLLOW UP 03/09/2014 Patient Education: Patient Medication Summary Completed 03/09/2014 Appointment: Yvette David WPtel: [address] [place], [place] [phone] ACUTE ILLNESS 02/05/2014 Patient Education: Patient Medication Summary Completed 02/05/2014 Appointment: Yvette David WPtel: [address] [place], [place] [phone] US LAB 02/04/2014 Patient Education: Patient Medication Summary Completed 02/04/2014 Appointment: Earline Morris WPtel: [address] [place], [place] [phone] ACUTE ILLNESS 05/12/2013 Patient Education: Patient Medication Summary Completed 05/12/2013 Visit Plan: MRI results discussed Discus sed epidural injections SI joint injection as above Continue Celebrex 200mg daily 04/07/2013 Appointment: Yvette David WPtel: [address] [place], [place] [phone] 04/04 left message FOLLOW UP 04/07/2013 Patient Education: Patient Medication Summary Completed 04/07/2013 Visit Plan: Restart PT and epidural--may need updated MRI of L/S spine Tylenol prn Celebrex 200mg daily 03/31/2013 Appointment: Yvette David WPtel: [address] [place], [place] [phone] ACUTE ILLNESS 03/31/2013 Patient Education: Patient Medication Summary Completed 03/31/2013 Visit Plan: Injection to hip as above Pt will take Vimovo 500/20mg po daily for next week Call in 1wk on both hip and stomach Discussed that likely has arthritis in hip as well 10/09/2012 Appointment: Yvette David WPtel: [address] [place], [place] [phone] 10/08 Left message ACUTE ILLNESS 10/09/2012 Patient Education: Patient Medication Summary Completed 10/09/2012 Visit Plan: See urology--Dr. Hutchinson for cystocele Start Premarin vaginal Cream 1/2 gm vaginally twice weekly then repeat PAP in 3mos Continue nexium for 4 more weeks then start Zantac daily--notify if cough returns 03/28/2012 Appointment: Yvette David WPtel: [address] [place], [place] [phone] PAP 03/28/2012 Patient Education: Patient Medication Summary Completed 03/28/2012 Appointment: Yvette David WPtel: [address] [place], [place] [phone] US LAB 03/18/2012 Patient Education: Patient Medication Summary Completed 03/18/2012 Appointment: Reyna Colón WPtel: [address] [place], [place] [phone] OFFICE SURGERY 2012 Patient Education: Patient Medication Summary Completed 2012 Visit Plan: Pap done Kegel exercises--de fers meds or surgery eval at this time Mammo due in January DC symbicort 09/27/2011 Appointment: Yvette David WPtel: [address] [place], [place] [phone] FOLLOW UP 09/27/2011 Patient Education: Patient Medication Summary Completed 09/27/2011 Visit Plan: Symbicort 160/4.5 2 p BID 09/13/2011 Appointment: Yvette David WPtel: [address] [place], [place] [phone] ACUTE ILLNESS 09/13/2011 Patient Education: Patient Medication Summary Completed 09/13/2011 Visit Plan: Cefdinir and medrol dose pac k. Discussed if no improvement by Sunday will obtain chest x-ray and CBC with mycoplasma. 08/07/2011 Appointment: Reyna Colón WPtel: [address] [place], [place] [phone] ACUTE ILLNESS 08/07/2011 Patient Education: Patient Medication Summary Completed 08/07/2011 Appointment: Yvette David WPtel: [address] [place] [phone] 07/13/2011 Patient Education: Patient Medication Summary Completed 07/13/2011 Appointment: Yvette David WPtel: [address] [place], [place] [phone] LAB 03/13/2011 Patient Education: Patient Medication Summary Completed 03/13/2011 Appointment: Yvette David WPtel: [address] [place], [place] [phone] BP CHECK 02/06/2011 Patient Education: Patient Medication Summary Completed 02/06/2011 Appointment: Yvette David WPtel: [address] [place], [place] [phone] BP CHECK 01/20/2011 Patient Education: Patient Medication Summary Completed 01/20/2011 Appointment: Yvette David WPtel: [address] [place] [phone] BP CHECK 01/12/2011 Patient Education: Patient Medication Summary Completed 01/12/2011 Visit Plan: Increase Synthroid to 75mcg po daily Increase fish oil to BID Start daily Toprol XL 12.5mg BP check in 1wk TSH and Free T4 in 2mos. 01/04/2011 Appointment: Yvette David WPtel: [address] [place] [phone] FOLLOW UP 01/04/2011 Patient Education: Patient Medication Summary Completed 01/04/2011 Appointment: Yvette David WPtel: [address] [place] [phone] LAB 12/16/2010 Patient Education: Patient Medication Summary Completed 12/16/2010 Visit Plan: Start PT May need MRI 02/14/2010 Appointment: Yvette David WPtel: [address] [place], [place] [phone] OFFICE SURGERY 02/14/2010 Patient Education: Patient Medication [...] (steroid). 02/07/2010 Appointment: Reyna Colón WPtel: [phone] [facility] [facility] 02/07/2010 Patient Education: Patient Medication Summary Completed 02/07/2010 Appointment: Yvette David [facility]Ptel: [phone] [phone] [facility] 12/22/2009 Patient Education: Patient Medication [...] data not found Advance Directives Filename Date [id number] 06/03/2012
--- OUTSIDE RECORDS SUMMARY | 2022-08-14 14:03 | XMS REPORT | CCD ---
Author Author Lucille David D.O. Organization [facility] Address [address] [place] [address] Phone Care Team Providers Care Jboss Developer Name Role Phone Yvette David D.O., PP Unavailable CCM Unavailable Summary Purpose Interface Exchange Insurance Providers Payer name Policy type / Coverage type Covered libertarian ID Effective Begin Date Effective End Date WPS MEDICARE PART [place] Medicare Part B [id number] Unknown Cigna Medicare Part B [id number] Unknown Family History Family History data not found Social History Social History Element Codes Description Effective Dates Tobacco history SNOMED CT: [id number] Has never smoked or chewed tobacco 05/26/2015 [...] ICD-10: G62.9 ICD-9: 355.9 12/18/2016 Active Other intermodal customer service (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 ICD-10: Z79.899 ICD-9: V58.69 [...] Effexor XR 75 mg capsule,extended release RxNorm: 422979 Take 1 Capsule(s) Oral QPM replaces 37.5mg done 08/02/2022 10/30/2022 Active Singulair 10 mg tablet RxNorm: 466907 Take 1 Tablet(s) Oral QPM 05/202201/28/2023 Active metoprolol succinate ER 50 mg tablet,extended release 24 hr RxNorm: 764505 1 Tablet(s) Oral two times a day 06/26/2022 12/22/2022 Active amiodarone 200 mg tablet RxNorm: 146673 Take 1 Tablet(s) Oral t wo times a day 06/26/2022 06/26/2022 Inactive venlafaxine ER 37.5 mg capsule,extended release 24 hr RxNorm : 274521 Take 1 Capsule(s) Oral QAM 06/16/2022 08/01/2022 Inactive simvastatin 20 mg tablet RxNorm: 316205 Take 1 Tablet(s) Oral QD 11/21/2022 Active Xarelto 20 mg tablet RxNorm: 2251381 Take 1 Tablet(s) Oral QD 05/22 No Stop Date Active amiodarone 200 mg tablet RxNorm: 174754 Take 1 Tablet(s) Oral QD 06/25/2022 Inactive Euthyrox 88 mcg tablet RxNorm: 415545 TAKE 1 TABLET BY MOUTH ONCE DAILY - DUE FOR UPDATED LAB 05/21/2022 08/18/2022 Active Breztri Aerosphere 160 mcg-9mcg-4.8mcg/actuation HFA a erosol inhaler RxNorm: 1603712 2 Puff(s) Inhalation two times a day in the morning an d evening 05/01/2022 05/01/2022 Inactive Breztri Aerosphere 160 mcg-9mcg-4.8mcg/actuation HFA a erosol inhaler RxNorm: 2275676 2 Puff(s) Inhalation two times a day in the morning an d evening 05/01/2022 05/30/2022 Inactive diltiazem CD 120 mg capsule,extended release 24 hr RxNorm: 8 38362 TAKE 1 CAPSULE BY MOUTH TWICE DAILY REPLACES 180MG DOSE 04/17/2022 10/13/2022 Active pantoprazole 40 mg tablet,delayed release RxNorm: 800574 Take 1 Tablet(s) Oral QD 04/17/2022 10/13/2022 Active Xarelto 10 mg tablet RxNorm: 5190034 Take 1 Tablet(s) Oral QD 03/2105/21/2022 Inactive simvastatin 20 mg tablet RxNorm: 864565 Take 1 Tablet(s) Oral QD 02/23/2022 Inactive levothyroxine 88 mcg tablet RxNorm: 106923 Take 1 table t by mouth once daily due for updated lab 02/22/2022 02/22/2022 Inactive Cartia XT 120 mg capsule,extended release RxNorm: 123362 TAKE 1 CAPSULE BY MOUTH TWICE DAILY REPLACES 180MG DOSE 01/16/2022 01/16/2022 Inactive pantoprazole 40 mg tablet,delayed release RxNorm: 957454 Take 1 Oral QD 12/15/2021 12/15/2021 Inactive scopolamine 1 mg over 3 days transdermal patch RxNorm: 58931 2 Take 1 Application Transdermal Q3D as needed 11/23/2021 06/25/2022 Inactive Effexor XR 37.5 mg capsule,extended release RxNorm: 598111 1 Capsule(s) Oral QAM 11/23/2021 11/23/2021 Inactive levothyroxine 88 mcg tablet RxNorm: 350704 Take 1 tablet by alvaro th once daily 11/21/2021 11/21/2021 Inactive diltiazem CD 120 mg capsule,extended release 24 hr RxNorm: 8 95972 TAKE 1 CAPSULE BY MOUTH TWICE DAILY REPLACES 180MG DOSE 10/17/2021 10/17/2021 Inactiv e pantoprazole 40 mg tablet,delayed release RxNorm: 198863 Take 1 Tablet(s) Oral QD 10/17/2021 10/17/2021 Inactive Effexor XR 37.5 mg capsule,extended release RxNorm: 505803 1 Capsule(s) Oral QAM 10/12/2021 11/22/2021 Inactive Xarelto 10 mg tablet RxNorm: 3769883 Take 1 Tablet(s) Oral QD 09/1409/14/2021 Inactive metoprolol succinate ER 50 mg tablet,extended release 24 hr RxNorm: 477200 Take 1/2 (one-half) tablet by mouth twice daily 09/14/2021 03/12/2022 Inact beto simvastatin 20 mg tablet RxNorm: 763642 Take 1 Tablet(s) Oral QD 08/30/2021 Inactive levothyroxine 88 mcg tablet RxNorm: 268145 Take 1 tablet by [facility] once daily 08/28/2021 08/28/2021 Inactive fluticasone propionate 50 mcg/actuation nasal spray,suspensi on RxNorm: 5560683 Take 1 [place] Nasal QD in each nostrilas needed 08/09/2021 09/07/2021 I nactive pantoprazole 40 mg tablet,delayed release RxNorm: 307860 Take 1 Tablet(s) Oral QD 07/19/2021 07/19/2021 Inactive Xarelto 10 mg tablet RxNorm: 5409758 Take 1 Tablet(s) Oral QD 06/2906/29/2021 Inactive Euthyrox 88 mcg tablet RxNorm: 349326 Take 1 tablet by mouth on ce daily 05/24/2021 05/24/2021 Inactive Effexor XR 37.5 mg capsule,extended release RxNorm: 451406 1 Capsule(s) Oral QAM 05/12/2021 07/27/2021 Inactive Xarelto 10 mg tablet RxNorm: 9374202 Take 1 tablet by [facility] once daily Take 1 Tablet(s) Oral QD 04/19/2021 04/19/2021 Inactive metoprolol succinate ER 50 mg tablet,extended release 24 hr RxNorm: 211268 1/2 Tablet(s) Oral two times a day 04/12/2021 04/12/2021 Inactive d ecrease in dose of 1/2 tablet twice daily metoprolol succinate ER 50 mg tablet,extended release 24 hr RxNorm: 832290 Take 1/2 (one-half) tablet by mouth twice daily 04/12/2021 10/11/2021 Inact beto simvastatin 20 mg tablet RxNorm: 821287 Take 1 Tablet(s) Oral QD 03/07/2021 Inactive prednisone 10 mg tablet RxNorm: 806792 Take 1 Tablet(s) Oral tw o times a day 03/01/2021 03/01/2021 Inactive triamcinolone acetonide 0.1 % topical cream RxNorm: 2463532 Apply 1 Application Topical two times a day 03/01/2021 03/01/2021 Inactive prednisone 10 mg tablet RxNorm: 162728 Take 1 Tablet(s) Oral tw o times a day 03/01/2021 03/03/2021 Inactive triamcinolone acetonide 0.1 % topical cream RxNorm: 4728357 Apply 1 Application Topical two times a day 03/01/2021 03/01/2021 Inactive Euthyrox 88 mcg tablet RxNorm: 930915 Take 1 tablet by mouth on ce daily 02/22/2021 02/22/2021 Inactive Effexor XR 37.5 mg capsule,extended release RxNorm: 369803 1 Capsule(s) Oral QAM 02/03/2021 02/02/2021 Inactive Effexor XR 37.5 mg capsule,extended release RxNorm: 511897 1 Capsule(s) Oral QAM 02/03/2021 04/03/2021 Inactive simvastatin 20 mg tablet RxNorm: 289364 Take 1 tablet by mouth once daily 1 01/25/2021 01/25/2021 Inactive Cardizem CD 120 mg capsule,extended release RxNorm: 155919 1 Capsule(s) Oral two times a day replaces 180mg dose 01/19/2021 01/19/2021 Inactive Protonix 40 mg tablet,delayed release RxNorm: 371427 1 Tablet(s ) Oral QD 01/17/2021 01/17/2021 Inactive Effexor XR 37.5 mg capsule,extended release RxNorm: 398217 1 Capsule(s) Oral QAM 01/04/2021 02/02/2021 Inactive scopolamine 1 mg over 3 days transdermal patch RxNorm: 16780 2 1 Application Transdermal behind ear for vertigo 01/04/2021 01/03/2021 Inactive scopolamine 1 mg over 3 days transdermal patch RxNorm: 47114 2 1 Application Transdermal behind ear for vertigo 01/04/2021 01/04/2021 Inactive metoprolol succinate ER 50 mg tablet,extended release 24 hr RxNorm: 869576 1/2 Tablet(s) Oral two times a day 12/29/2020 12/28/2020 Inactive metoprolol succinate ER 50 mg tablet,extended release 24 hr RxNorm: 338999 1/2 Tablet(s) Oral two times a day 12/29/2020 12/29/2020 Inactive d ecrease in dose of 1/2 tablet twice daily Xarelto 10 mg tablet RxNorm: 4050296 Take 1 tablet by mouth once daily 12/29/2020 03/29/2021 Inactive Xarelto 10 mg tablet RxNorm: 6937447 Take 1 tablet by mouth once daily 11/26/2020 12/28/2020 Inactive simvastatin 20 mg tablet RxNorm: 385202 Take 1 tablet by mouth once daily 11/26/2020 01/24/2021 Inactive Synthroid 88 mcg tablet RxNorm: 943510 Take 1 tablet by mouth o nce daily 10/21/2020 10/21/2020 Inactive simvastatin 20 mg tablet RxNorm: 704589 Take 1 tablet by mouth once daily 09/30/2020 11/25/2020 Inactive Xarelto 10 mg tablet RxNorm: 7328215 Take 1 tablet by mouth once daily 08/26/2020 11/23/2020 Inactive metoprolol succinate ER 50 mg tablet,extended release 24 hr RxNorm: 054532 1 Tablet(s) Oral two times a day 08/05/2020 11/03/2020 Inactive simvastatin 20 mg tablet RxNorm: 498367 Take 1 tablet by mouth once daily 07/30/2020 09/27/2020 Inactive Synthroid 88 mcg tablet RxNorm: 314626 Take 1 tablet by mouth o nce daily 07/27/2020 10/20/2020 Inactive Protonix 40 mg tablet,delayed release RxNorm: 891637 1 Tablet(s ) Oral QD 07/26/2020 10/24/2020 Inactive Xarelto 10 mg tablet RxNorm: 3277543 1 Tablet(s) Oral QD 06/03/2020 1 10/26/2019 Inactive Cardizem CD 120 mg capsule,extended release RxNorm: 514918 1 Capsule(s) Oral two times a day replaces 180mg dose 05/11/2020 11/07/2020 Inactive Pradaxa 75 mg capsule RxNorm: 5085908 1 Capsule(s) Oral two time s a day 05/11/2020 05/11/2020 Inactive meclizine 25 mg tablet RxNorm: 754668 1 Tablet(s) Oral every ni ght at bedtime 05/05/2020 10/11/2021 Inactive simvastatin 20 mg tablet RxNorm: 447935 Take 1 tablet by mouth once daily 05/04/2020 05/10/2020 Inactive simvastatin 20 mg tablet RxNorm: 365621 TAKE 1 TABLET BY MOUTH ONCE DAILY 04/29/2020 09/19/2020 Inactive Synthroid 88 mcg tablet RxNorm: 056558 TAKE 1 TABLET BY MOUTH O NCE DAILY 04/20/2020 07/18/2020 Inactive diltiazem CD 180 mg capsule,extended release 24 hr RxNorm: 8 59706 TAKE 1 CAPSULE BY MOUTH TWICE DAILY 04/05/2020 05/10/2020 Inactive simvastatin 20 mg tablet RxNorm: 425926 TAKE 1 TABLET BY MOUTH ONCE DAILY 02/24/2020 04/23/2020 Inactive aspirin 325 mg tablet RxNorm: 806565 1 Tablet(s) Oral QD 02/11/2020 0 05/10/2020 Inactive hydroxyzine HCl 10 mg tablet RxNorm: 976231 1 Tablet(s) Oral th ree times a day 01/28/2020 05/10/2020 Inactive diltiazem CD 180 mg capsule,extended release 24 hr RxNorm: 8 80504 TAKE 1 CAPSULE BY MOUTH TWICE DAILY 01/19/2020 04/04/2020 Inactive spironolactone 25 mg tablet RxNorm: 579769 1 Tablet(s) Oral QOD replaces Triam/HCTZ 01/15/2020 01/14/2020 Inactive spironolactone 25 mg tablet RxNorm: 120858 1 Tablet(s) Oral QOD replaces Triam/HCTZ 01/15/2020 01/26/2020 Inactive prednisone 20 mg tablet RxNorm: 226637 1 Tablet(s) Oral QD 01/12/20 20 01/14/2020 Inactive prednisone 20 mg tablet RxNorm: 260017 1 Tablet(s) Oral QD 01/12/20 20 01/11/2020 Inactive Benadryl 25 mg capsule RxNorm: 6776425 1 Capsule(s) Oral every n ight at bedtime 01/08/2020 05/10/2020 Inactive Pepcid 20 mg tablet RxNorm: 822877 1 Tablet(s) Oral two times a day 01/08/2020 07/25/2020 Inactive [place] Original 0.5 %-0.5 % lotion RxNorm: 858051 Topical 0 10/11/2021 Inactive Zyrtec 10 mg tablet RxNorm: 4735771 1 Tablet(s) Oral QAM 01/08/2020 0 05/10/2020 Inactive metoprolol succinate ER 50 mg tablet,extended release 24 hr RxNorm: 463414 1 Tablet(s) Oral two times a day 01/05/2020 04/04/2020 Inactive Protonix 40 mg tablet,delayed release RxNorm: 168614 TA KE 1 TABLET BY MOUTH ONCE DAILY 12/29/2019 05/10/2020 Inactive triamterene 37.5 mg-hydrochlorothiazide 25 mg tablet RxNorm: 300017 TAKE 1/2 (ONE-HALF) TABLET BY MOUTH EVERY OTHER DAY 12/24/2019 01/14/2020 Inact beto triamterene 37.5 mg-hydrochlorothiazide 25 mg tablet RxNorm: 479108 1/2 Tablet(s) Oral QD 12/12/2019 01/26/2020 Inactive diltiazem CD 180 mg capsule,extended release 24 hr RxNorm: 8 00972 TAKE 1 CAPSULE BY MOUTH TWICE DAILY 12/03/2019 01/18/2020 Inactive Eliquis 2.5 mg tablet RxNorm: 5676575 1 Tablet(s) Oral two times a day 11/25/2019 02/10/2020 Inactive simvastatin 20 mg tablet RxNorm: 355416 TAKE 1 TABLET BY MOUTH ONCE DAILY 11/25/2019 02/22/2020 Inactive triamterene 37.5 mg-hydrochlorothiazide 25 mg tablet RxNorm: 158567 1/2 Tablet(s) Oral QOD 11/06/2019 12/11/2019 Inactive triamterene 37.5 mg-hydrochlorothiazide 25 mg tablet RxNorm: 233002 1/2 Tablet(s) Oral QD 10/22/2019 10/28/2019 Inactive meclizine 25 mg tablet RxNorm: 230149 1 Tablet(s) Oral every ni ght at bedtime 10/20/2019 11/19/2019 Inactive Synthroid 88 mcg tablet RxNorm: 261584 TAKE 1 TABLET BY MOUTH O NCE DAILY 10/20/2019 10/21/2019 Inactive scopolamine 1 mg over 3 days transdermal patch RxNorm: 13184 2 1 Unit Dose Transdermal Q72H for vertigo 10/14/2019 01/04/2020 Inactive scopolamine 1 mg over 3 days transdermal patch RxNorm: 11677 2 1 Unit Dose Transdermal Q72H for vertigo 10/14/2019 10/14/2019 Inactive Celebrex 200 mg capsule RxNorm: 799953 TAKE 1 CAPSULE BY MOUTH ONCE DAILY 10/12/2019 10/28/2019 Inactive triamterene 37.5 mg-hydrochlorothiazide 25 mg tablet RxNorm: 045378 1 Tablet(s) Oral QAM 10/06/2019 10/21/2019 Inactive diltiazem CD 180 mg capsule,extended release 24 hr RxNorm: 8 44390 1 Capsule(s) Oral two times a day 10/01/2019 11/29/2019 Inactive simvastatin 20 mg tablet RxNorm: 316442 TAKE 1 TABLET BY MOUTH ONCE DAILY 10/01/2019 10/01/2019 Inactive Patient will need to have fasting labs done before next refill Protonix 40 mg tablet,delayed release RxNorm: 224887 TA KE 1 TABLET BY MOUTH ONCE DAILY 09/28/2019 12/26/2019 Inactive diltiazem CD 180 mg capsule,extended release 24 hr RxNorm: 8 65331 1 Capsule(s) Oral two times a day 08/11/2019 08/10/2019 Inactive diltiazem CD 180 mg capsule,extended release 24 hr RxNorm: 8 36479 1 Capsule(s) Oral two times a day 08/11/2019 09/30/2019 Inactive diltiazem CD 120 mg capsule,extended release 24 hr RxNorm: 8 05536 1 Capsule(s) Oral two times a day 07/23/2019 08/10/2019 Inactive Celebrex 200 mg capsule RxNorm: 229622 1 Capsule(s) Oral QD 019 07/08/2019 Inactive Celebrex 200 mg capsule RxNorm: 984577 1 Capsule(s) Oral QD 10/07/2019 Inactive diltiazem CD 120 mg capsule,extended release 24 hr RxNorm: 8 59881 1 Capsule(s) Oral QAM 07/07/2019 07/22/2019 Inactive Eliquis 2.5 mg tablet RxNorm: 5519344 1 Tablet(s) Oral two times a day 07/07/2019 11/04/2019 Inactive metoprolol succinate ER 50 mg tablet,extended release 24 hr RxNorm: 726497 1 Tablet(s) Oral QAM and 2 tablets in the evening 06/30/2019 08/05/2020 Inactive hydrochlorothiazide 25 mg tablet RxNorm: 648368 1 Tablet(s) PO QD 1 07/06/2019 Inactive hydrochlorothiazide 25 mg tablet RxNorm: 363252 1 Tablet(s) PO QD 0 05/08/2019 05/07/2019 Inactive patient needs to follow up i n 2 months and continue BP readings at home hydrochlorothiazide 25 mg tablet RxNorm: 120889 1 Tablet(s) PO QD 0 05/08/2019 06/25/2019 Inactive patient needs to follow up i n 2 months and continue BP readings at home metoprolol succinate ER 50 mg tablet,extended release 24 hr RxNorm: 997096 1 Tablet(s) PO QAM and 2 tablets in the evening 05/08/2019 06/29/2019 In active hydrochlorothiazide 12.5 mg tablet RxNorm: 424963 1 Tablet(s) PO QA M 04/15/2019 05/07/2019 Inactive Synthroid 88 mcg tablet RxNorm: 559258 TAKE 1 TABLET BY MOUTH O NCE DAILY 04/14/2019 10/19/2019 Inactive Protonix 40 mg tablet,delayed release RxNorm: 266723 TA KE 1 TABLET BY MOUTH ONCE DAILY 03/24/2019 09/27/2019 Inactive simvastatin 20 mg tablet RxNorm: 913692 TAKE 1 TABLET BY MOUTH ONCE DAILY 03/24/2019 09/30/2019 Inactive losartan 100 mg tablet RxNorm: 279020 1/2 Tablet(s) PO QD 2019 04/14/2019 Inactive Cozaar 50 mg tablet RxNorm: 373235 1 Tablet(s) PO QHS 01/28/201903/25 Inactive Celebrex 200 mg capsule RxNorm: 897146 TAKE 1 CAPSULE BY MOUTH ONCE DAILY 01/10/2019 07/08/2019 Inactive Protonix 40 mg tablet,delayed release RxNorm: 232747 TA KE 1 TABLET BY MOUTH ONCE DAILY 12/23/2018 03/23/2019 Inactive metoprolol succinate ER 50 mg tablet,extended release 24 hr RxNorm: 794324 1.5 Tablet(s) PO BID 12/03/2018 04/14/2019 Inactive Synthroid 88 mcg tablet RxNorm: 229852 1 Tablet(s) PO QD 10/24/2018 0 04/13/2019 Inactive simvastatin 20 mg tablet RxNorm: 662345 1 Tablet(s) PO QD 09/27/2018 12/25/2018 Inactive simvastatin 20 mg tablet RxNorm: 721344 1 Tablet(s) PO QD 09/26/2018 09/26/2018 Inactive Cozaar 50 mg tablet RxNorm: 791160 1 Tablet(s) PO QHS 09/09/2018 050 02/2019 Inactive Cozaar 50 mg tablet RxNorm: 773032 1 Tablet(s) PO QHS 09/09/201808/24 Inactive metoprolol succinate ER 50 mg tablet,extended release 24 hr RxNorm: 392378 1.5 Tablet(s) PO BID 09/02/2018 11/30/2018 Inactive Cozaar 50 mg tablet RxNorm: 968973 1 Tablet(s) PO QHS 05/24/201808/24 Inactive Cozaar 25 mg tablet RxNorm: 275957 1 Tablet(s) PO QAM 05/10/201804/25 Inactive clonidine HCl 0.1 mg tablet RxNorm: 549237 1 Tablet(s) PO TID as needed for BP greater than 160/95 05/10/2018 05/20/2018 Inactive betamethasone dipropionate 0.05 % topical cream RxNorm: 2389 20 1 Application TOP BID 05/06/2018 11/25/2018 Inactive prednisone 20 mg tablet RxNorm: 704704 1 Tablet(s) PO QD 05/06/2018 0 05/05/2018 Inactive prednisone 20 mg tablet RxNorm: 452812 1 Tablet(s) PO QD 05/06/2018 0 05/10/2018 Inactive metoprolol succinate ER 50 mg tablet,extended release 24 hr RxNorm: 662666 1.5 Tablet(s) PO BID 05/06/2018 09/01/2018 Inactive Flonase Allergy Relief 50 mcg/actuation nasal spray,suspensi on RxNorm: 8360431 2 [place] NASAL QHS 05/03/2018 11/25/2018 Inactive Celebrex 200 mg capsule RxNorm: 028651 TAKE ONE CAPSULE BY MOUT H ONCE DAILY 04/30/2018 05/02/2018 Inactive Celebrex 200 mg capsule RxNorm: 950005 1 Capsule(s) PO QD TAKE ONE CAPSULE BY MOUTH ONCE DAILY 04/30/2018 05/02/2018 Inactive Synthroid 88 mcg tablet RxNorm: 909370 1 Tablet(s) PO QD 03/12/2018 1 11/08/2017 Inactive acyclovir 5 % topical ointment RxNorm: 021685 1 Unit Dose TOP Q 6H as needed 03/05/2018 11/25/2018 Inactive Protonix 40 mg tablet,delayed release RxNorm: 649237 1 Tablet(s ) PO QD 12/17/2017 12/22/2018 Inactive simvastatin 20 mg tablet RxNorm: 855189 TAKE ONE TABLET BY MOUT H ONCE DAILY 12/17/2017 09/27/2018 Inactive Celebrex 200 mg capsule RxNorm: 664244 TAKE ONE CAPSULE BY MOUT H ONCE DAILY 10/30/2017 04/29/2018 Inactive Synthroid 88 mcg tablet RxNorm: 433428 1 Tablet(s) PO QD 09/19/2017 0 03/12/2018 Inactive Synthroid 88 mcg tablet RxNorm: 422186 1 Tablet(s) PO QD Needs updated labs 09/19/2017 10/24/2018 Inactive Synthroid 88 mcg tablet RxNorm: 101466 1 Tablet(s) PO QD 06/20/2017 1 11/18/2016 Inactive simvastatin 20 mg tablet RxNorm: 646085 1 Tablet(s) PO QD 06/15/2017 09/12/2017 Inactive simvastatin 20 mg tablet RxNorm: 989671 1 Tablet(s) PO QD 06/15/2017 06/14/2017 Inactive metoprolol succinate ER 25 mg tablet,extended release 24 hr RxNorm: 512121 1 Tablet(s) PO QD 06/14/2017 07/23/2017 Inactive Valtrex 1 gram tablet RxNorm: 718033 1 Tablet(s) PO TID 06/01/2017 Inactive Celebrex 200 mg capsule RxNorm: 567452 1 Capsule(s) PO QD 05/01/2017 10/27/2017 Inactive Toprol XL 25 mg tablet,extended release RxNorm: 473942 09/25 Tabl et(s) PO QD 04/12/2017 06/13/2017 Inactive simvastatin 20 mg tablet RxNorm: 443440 1 Tablet(s) PO QD 03/19/2017 06/14/2017 Inactive Synthroid 88 mcg tablet RxNorm: 831125 1 Tablet(s) PO QD 03/14/2017 0 06/20/2017 Inactive aspirin 81 mg chewable tablet RxNorm: 381574 1 Tablet(s) PO QD 12/2404/21/2018 Inactive simvastatin 20 mg tablet RxNorm: 495381 TAKE ONE TABLET BY MOUT H ONCE DAILY 12/19/2016 03/19/2017 Inactive gabapentin 300 mg capsule RxNorm: 448054 1 Capsule(s) PO QHS 201603/29/2017 Inactive Protonix 40 mg tablet,delayed release RxNorm: 685863 TA KE ONE TABLET BY MOUTH ONCE DAILY 12/14/2016 12/08/2017 Inactive Flonase Allergy Relief 50 mcg/actuation nasal spray,suspensi on RxNorm: 7435005 2 [place] NASAL QHS 11/02/2016 12/17/2016 Inactive clotrimazole-betamethasone 1 %-0.05 % topical cream RxNorm: 397841 1 Application TOP BID 11/02/2016 11/01/2016 Inactive clotrimazole-betamethasone 1 %-0.05 % topical cream RxNorm: 947758 1 Application TOP BID 11/02/2016 12/17/2016 Inactive Tessalon Perles 100 mg capsule RxNorm: 261755 1 Capsule(s) PO TID 0 11/02/2016 12/17/2016 Inactive amoxicillin 500 mg tablet RxNorm: 121951 1 Tablet(s) PO TID 017 11/01/2016 Inactive Toprol XL 25 mg tablet,extended release RxNorm: 644734 TAKE ONE-HALF TABLET BY MOUTH ONCE DAILY 10/19/2016 04/12/2017 Inactive Toprol XL 25 mg tablet,extended release RxNorm: 584747 1/2 Tablet(s) PO QD Due for routine fasting labs and appointment 10/19/2016 01/16/2017 Inactiv e gabapentin 600 mg tablet RxNorm: 397831 1 Tablet(s) PO QHS 07/24/20 16 12/17/2016 Inactive gabapentin 600 mg tablet RxNorm: 136503 TAKE ONE TABLET BY MOUT H AT BEDTIME 07/24/2016 07/23/2016 Inactive simvastatin 20 mg tablet RxNorm: 979221 TAKE ONE TABLET BY MOUT H ONCE DAILY 06/15/2016 12/11/2016 Inactive Celebrex 200 mg capsule RxNorm: 386946 1 Capsule(s) PO QD 05/10/2016 05/01/2017 Inactive Celebrex 200 mg capsule RxNorm: 973979 1 Capsule(s) PO QD 05/09/2016 05/09/2016 Inactive Synthroid 88 mcg tablet RxNorm: 381119 Tablet(s) 1 Tablet(s) PO QD 03/21/2016 09/16/2016 Inactive Synthroid 88 mcg tablet RxNorm: 645564 1 Tablet(s) PO QD 03/20/2016 0 03/20/2016 Inactive simvastatin 20 mg tablet RxNorm: 715045 TAKE ONE TABLET BY MOUT H ONCE DAILY 03/06/2016 06/03/2016 Inactive meclizine 25 mg tablet RxNorm: 170713 1 Tablet(s) PO TID as nee ded dizziness 02/07/2016 12/17/2016 Inactive Zofran ODT 4 mg disintegrating tablet RxNorm: 268322 1 Tablet(s) PO Q6H as needed for nausea 02/07/2016 12/17/2016 Inactive gabapentin 600 mg tablet RxNorm: 733856 TAKE ONE TABLET BY MOUT H AT BEDTIME 01/20/2016 07/17/2016 Inactive Synthroid 88 mcg tablet RxNorm: 618969 1 Tablet(s) PO QD 12/27/2015 0 03/19/2016 Inactive simvastatin 20 mg tablet RxNorm: 741518 1 Tablet(s) PO QD 12/06/2015 03/04/2016 Inactive Protonix 40 mg tablet,delayed release RxNorm: 258025 1 Tablet(s ) PO QD 12/06/2015 12/13/2016 Inactive Celebrex 200 mg capsule RxNorm: 769878 1 Capsule(s) PO QD 11/03/2015 05/10/2016 Inactive Celebrex 200 mg capsule RxNorm: 532926 1 Capsule(s) PO QD 11/03/2015 11/02/2015 Inactive simvastatin 20 mg tablet RxNorm: 989379 1 Tablet(s) PO QD 09/06/2015 12/04/2015 Inactive Gralise 600 mg tablet,extended release RxNorm: 4112194 1 Tablet( s) PO QD 08/23/2015 10/18/2015 Inactive Synthroid 88 mcg tablet RxNorm: 092760 1 Tablet(s) PO QD 06/30/2015 0 09/27/2015 Inactive simvastatin 20 mg tablet RxNorm: 340998 1 Tablet(s) PO QD 06/07/2015 09/04/2015 Inactive Synthroid 88 mcg tablet RxNorm: 211379 1 Tablet(s) PO QD 06/07/2015 1 Inactive Celebrex 200 mg capsule RxNorm: 720845 1 Capsule(s) PO QD 06/07/2015 11/02/2015 Inactive Protonix 40 mg tablet,delayed release RxNorm: 843077 1 Tablet(s ) PO QD 06/07/2015 12/03/2015 Inactive Toprol XL 25 mg tablet,extended release RxNorm: 070919 1/2 Tabl et(s) PO QD 04/13/2015 10/09/2015 Inactive [SAVINGS FOR UNINSUR ED PATIENTS -- BIN:[id number], PCN: ASPROD1, Group: [id number], ID# [id number], Process claim through [employer], for questions: . THIS IS NOT INSURANCE.] Synthroid 88 mcg tablet RxNorm: 558231 1 Tablet(s) PO Q D TAKE ONE TABLET BY MOUTH ONCE DAILY 03/29/2015 06/30/2015 Inactive Celebrex 200 mg capsule RxNorm: 178494 1 Capsule(s) PO QD 03/22/2015 06/06/2015 Inactive Celebrex 200 mg capsule RxNorm: 672729 1 Capsule(s) PO QD 02/22/2015 03/21/2015 Inactive Celebrex 200 mg capsule RxNorm: 883292 1 Capsule(s) PO QD 01/21/2015 02/21/2015 Inactive Synthroid 88 mcg tablet RxNorm: 819352 1 Tablet(s) PO Q D TAKE ONE TABLET BY MOUTH ONCE DAILY 12/21/2014 03/29/2015 Inactive meloxicam 15 mg tablet RxNorm: 446976 1 Tablet(s) PO QD 12/09/2014 Inactive [SAVINGS FOR NON-COVERED DRUGS -- BIN:[id number], PCN: ASPROD1, Group: [id number], ID# [id number], Questions: . THIS IS NOT INSURANCE.] Protonix 40 mg tablet,delayed release RxNorm: 298834 1 Tablet(s ) PO QD 12/08/2014 06/05/2015 Inactive Protonix 40 mg tablet,delayed release RxNorm: 861940 1 Tablet(s ) PO QD 12/07/2014 12/07/2014 Inactive simvastatin 20 mg tablet RxNorm: 503537 TAKE ONE TABLET BY MOUT H ONCE DAILY 11/30/2014 05/28/2015 Inactive clotrimazole-betamethasone 1 %-0.05 % topical cream RxNorm: 3087 14 TOP BID 11/30/2014 11/01/2016 Inactive acetic acid 2 % ear solution RxNorm: 981126 5 Drop(s) OTIC Left ear QID 11/30/2014 12/06/2014 Inactive meloxicam 15 mg tablet RxNorm: 528090 1 Tablet(s) PO QD 10/30/2014 Inactive [SAVINGS FOR NON-COVERED DRUGS -- BIN:[id number], PCN: [id number], Group: [id number], ID# [id number], Questions: . THIS IS NOT INSURANCE.] meloxicam 15 mg tablet RxNorm: 584726 1 Tablet(s) PO QD 10/30/2014 Inactive Toprol XL 25 mg tablet,extended release RxNorm: 280615 1/2 Tabl et(s) PO QD 10/12/2014 04/09/2015 Inactive [SAVINGS FOR UNINSUR ED PATIENTS -- BIN:[id number], PCN: [id number], Group: [id number], ID# [id number], Process claim through [employer], for questions: . THIS IS NOT INSURANCE.] Synthroid 88 mcg tablet RxNorm: 194995 1 Tablet(s) PO Q D TAKE ONE TABLET BY MOUTH ONCE DAILY 09/21/2014 12/19/2014 Inactive Protonix 40 mg tablet,delayed release RxNorm: 218846 1 Tablet(s ) PO QD 07/23/2014 11/19/2014 Inactive Synthroid 88 mcg tablet RxNorm: 921011 TAKE ONE TABLET BY MOUTH ONCE DAILY 06/23/2014 09/21/2014 Inactive omeprazole 40 mg capsule,delayed release RxNorm: 231374 1 Capsu le(s) PO QD 06/16/2014 07/22/2014 Inactive [SAVINGS FOR UNINSUR ED PATIENTS -- BIN:[id number], PCN: [id number], Group: [id number], ID# [id number], Process claim through [employer], for questions: . THIS IS NOT INSURANCE.] Toprol XL 25 mg tablet,extended release RxNorm: 872066 1/2 Tabl et(s) PO QD 04/13/2014 10/12/2014 Inactive Celebrex 200 mg capsule RxNorm: 531354 1 Capsule(s) PO QD for pain 03/16/2014 10/29/2014 Inactive Medrol ([place]choa) 4 mg tablets in a dose pack RxNorm: 051466 Tablet(s) PO as directed 03/09/2014 07/22/2014 Inactive Synthroid 88 mcg tablet RxNorm: 048626 1 Tablet(s) PO QD 02/17/2014 0 06/23/2014 Inactive Celebrex 200 mg capsule RxNorm: 209430 1 Capsule(s) PO QD for pain 02/17/2014 03/15/2014 Inactive omeprazole 40 mg capsule,delayed release RxNorm: 441008 1 Capsu le(s) PO QD 02/05/2014 06/16/2014 Inactive Protonix 40 mg tablet,delayed release RxNorm: 149993 1 Tablet(s ) PO QD 01/23/2014 05/10/2020 Inactive Toprol XL 25 mg tablet,extended release RxNorm: 062213 1/2 Tablet(s) PO QD TAKE ONE-HALF TABLET BY MOUTH EVERY DAY 01/12/2014 04/13/2014 Inactive Synthroid 88 mcg tablet RxNorm: 619618 Tablet(s) PO MANDY E ONE TABLET BY MOUTH EVERY DAY 11/17/2013 02/17/2014 Inactive Celebrex 200 mg capsule RxNorm: 812680 1 Capsule(s) PO QD for pain 10/20/2013 02/17/2014 Inactive Toprol XL 25 mg tablet,extended release RxNorm: 277851 1/2 Tabl et(s) PO QD 07/17/2013 01/12/2014 Inactive Nexium 40 mg capsule,delayed release RxNorm: 727469 1 C apsule(s) PO QD Generic ok 07/14/2013 09/21/2013 Inactive Celebrex 200 mg capsule RxNorm: 946011 1 Capsule(s) PO QD for pain 06/19/2013 10/20/2013 Inactive Synthroid 88 mcg tablet RxNorm: 790054 1 Tablet(s) PO QD 05/13/2013 0 11/17/2013 Inactive TAKE ONE TABLET BY MOUTH EVERY DAY Nexium 40 mg capsule,delayed release RxNorm: 706404 Cap maureen(s) PO TAKE ONE CAPSULE BY MOUTH EVERY DAY 05/05/2013 07/13/2013 Inactive Celebrex 200 mg capsule RxNorm: 183630 1 Capsule(s) PO QD for pain 04/07/2013 06/19/2013 Inactive Esgic-Plus 50 mg-500 mg-40 mg capsule RxNorm: 171069 1 Capsule(s) PO Q4-6H prn headache 04/07/2013 04/07/2013 Inactive Toprol XL 25 mg tablet,extended release RxNorm: 365701 1/2 Tabl et(s) PO QD 12/16/2012 06/13/2013 Inactive Nexium 40 mg capsule,delayed release RxNorm: 979075 1 Capsule(s ) PO QD 11/20/2012 03/19/2013 Inactive Synthroid 88 mcg tablet RxNorm: 905643 1 Tablet(s) PO QD 10/28/2012 0 04/25/2013 Inactive TAKE ONE TABLET BY MOUTH EVERY DAY Toprol XL 25 mg tablet,extended release RxNorm: 602379 1/2 Tabl et(s) PO QD 09/25/2012 12/16/2012 Inactive Synthroid 88 mcg tablet RxNorm: 498530 1 Tablet(s) PO QD 04/22/2012 0 10/28/2012 Inactive TAKE ONE TABLET BY MOUTH EVERY DAY Nexium 40 mg capsule,delayed release RxNorm: 110065 1 Capsule(s ) PO QD 04/16/2012 11/20/2012 Inactive Esgic-Plus 50 mg-500 mg-40 mg capsule RxNorm: 571925 1 Capsule(s) PO Q4-6H prn headache 03/28/2012 04/06/2013 Inactive Toprol XL 25 mg tablet,extended release RxNorm: 155735 1/2 Tabl et(s) PO QD 03/07/2012 09/25/2012 Inactive Toprol XL 25 mg 24 hr Tab RxNorm: 154065 1/2 Tablet(s) PO QD 201101/03/2012 Inactive Three times a week Synthroid 88 mcg Tab RxNorm: 225395 1 Tablet(s) PO QD 10/10/201112/23 Inactive TAKE ONE TABLET BY MOUTH EVERY DAY prednisone 20 mg Tab RxNorm: 036781 1 Tablet(s) PO BID 09/13/2011 Inactive doxycycline 100 mg Cap RxNorm: 3071249 1 Capsule(s) PO BID 09/13/20 11 09/22/2011 Inactive cefdinir 300 mg Cap RxNorm: 489490 1 Capsule(s) PO BID 08/07/2011 Inactive Synthroid 88 mcg Tab RxNorm: 248984 1 Tablet(s) PO QD 07/19/201109/24 Inactive TAKE ONE TABLET BY MOUTH EVERY DAY Synthroid 88 mcg Tab RxNorm: 328317 1 Tablet(s) PO QD 07/19/201103/26 Inactive TAKE ONE TABLET BY MOUTH EVERY DAY Synthroid 88 mcg Tab RxNorm: 875018 1 Tablet(s) PO QD 07/18/201106/25 Inactive TAKE ONE TABLET BY MOUTH EVERY DAY Synthroid 88 mcg Tab RxNorm: 113777 1 Tablet(s) PO QD 05/15/201106/25 Inactive TAKE ONE TABLET BY MOUTH EVERY DAY Synthroid 88 mcg Tab RxNorm: 960539 1 Tablet(s) PO QD 03/15/201104/25 Inactive Synthroid 75 mcg Tab RxNorm: 383247 1 Tablet(s) PO QD 01/04/201102/22 Inactive Synthroid 50 mcg Tab RxNorm: 764783 1 Tablet(s) PO QD G eneric okay. Please explain to patient that she may see more variation in her thyroid labs and increased symptoms. 07/07/2010 03/14/2011 Inactive Prednisone 20 mg Tab RxNorm: 973373 1 Tablet(s) PO BID 02/14/2010 Inactive Flexeril 10 mg Tab RxNorm: 075280 1 Tablet(s) PO TID 02/07/201002/13 Inactive Synthroid 25 mcg Tab RxNorm: 615422 1 Tablet(s) PO QD 12/29/200902/23 Inactive Synthroid 50 mcg Tab RxNorm: 577261 1 Tablet(s) PO QD 12/29/200911/2009 Inactive Vitamin D3 2,000 unit tablet RxNorm: 513476 1 Tablet(s) PO QAM 2014 Active coenzyme Q10 200 mg tablet RxNorm: 814952 1 Tablet(s) PO QD 09/01/2014 Active Trelegy Ellipta inhalation RxNorm: 7181202 inhalation 05/30/2022 Active Vitamin B12 1000mcg Tablet RxNorm: 1/2 Tablet(s) PO QD 04/03/2017 Active gabapentin 600 mg tablet RxNorm: 254870 1 Tablet(s) PO QPM 01/20/20 16 01/19/2016 Inactive Fish Oil 1,000 mg capsule RxNorm: 1 Capsule(s) PO QHS 10/18/2017 0 10/17/2017 Inactive Toprol XL 25 mg 24 hr Tab RxNorm: 742349 1/2 Tablet(s) PO QD 201103/06/2012 Inactive turmeric root extract oral RxNorm: 1861463 oral 05/26/20152014 Inactive Esgic 50 mg-325 mg-40 mg tablet RxNorm: 445867 1 Tablet (s) PO Q4H as needed for pain 05/26/2015 05/25/2015 Inactive Synthroid 88 mcg Tab RxNorm: 850755 1 Tablet(s) PO QD 03/15/201102/23 Inactive Calcium with Vitamin D 600 mg-400 unit Tab RxNorm: 290299 1 Tab let(s) PO BID 03/31/2013 03/30/2013 Inactive Synthroid 50 mcg Tab RxNorm: 411250 1 Tablet(s) PO QD 03/16/201002/23 Inactive Celebrex 200 mg capsule RxNorm: 135936 1 Capsule(s) PO QD 01/21/2015 01/20/2015 Inactive betamethasone dipropionate 0.05 % topical cream RxNorm: 2389 20 1 Application TOP BID 05/06/2018 05/05/2018 Inactive Protonix 40 mg tablet,delayed release RxNorm: 574025 1 Tablet(s ) PO QD 01/23/2014 01/23/2014 Inactive Calcium + D 600 mg (1,500)-200 unit Tab RxNorm: 162054 1 Tablet (s) PO QD 01/04/2011 01/03/2011 Inactive simvastatin 20 mg tablet RxNorm: 737928 1 Tablet(s) PO QD 11/30/2014 11/29/2014 Inactive Fish Oil 1,000 mg capsule RxNorm: 2 Capsule(s) PO QD 05/26/2015 Inactive Gralise 600 mg tablet,extended release RxNorm: 4823923 1 Tablet( s) PO QD 08/23/2015 08/22/2015 Inactive Vitamin B12 1000mcg Tablet RxNorm: 1 Tablet(s) PO QD 04/03/2017 Inactive Esgic-Plus 50 mg-500 mg-40 mg Cap RxNorm: 391234 1 Caps ule(s) PO Q4-6H prn headache 03/28/2012 03/27/2012 Inactive Cozaar 50 mg tablet RxNorm: 179155 1 Tablet(s) PO QHS 05/24/201804/26 Inactive Toprol XL 25 mg 24 hr Tab RxNorm: 782084 2 Tablet(s) PO Three t imes a week 01/01/2012 12/31/2011 Inactive metoprolol succinate ER 25 mg tablet,extended release 24 hr RxNorm: 708233 1 Tablet(s) PO TID 10/18/2017 10/17/2017 Inactive metoprolol succinate ER 50 mg tablet,extended release 24 hr RxNorm: 957572 1.5 Tablet(s) PO QAM and tablet at bedtime 05/06/2018 05/05/2018 Inactive Esgic-Plus 50 mg-500 mg-40 mg Cap RxNorm: 998811 1 Capsule(s) P O Q4-6H 08/07/2011 08/06/2011 Inactive metoprolol succinate ER 50 mg tablet,extended release 24 hr RxNorm: 065385 1 Tablet(s) PO QD 04/22/2018 04/21/2018 Inactive Multivitamin & Mineral Formula Tab RxNorm: 1 Tablet(s) PO QD 0 03/31/2013 03/30/2013 Inactive metoprolol succinate ER 50 mg tablet,extended release 24 hr RxNorm: 188792 2 Tablet(s) PO QAM and 1.5 tablets (75mg) at bedtime 05/01/2019 9 Inactive Fish Oil 1,000 mg Cap RxNorm: 1 Capsule(s) PO QD 03/31/20132012 Inactive pantoprazole 40 mg tablet,delayed release RxNorm: 634633 1 Tabl et(s) PO QD 02/05/2014 02/04/2014 Inactive Eliquis 2.5 mg tablet RxNorm: 0800100 1 Tablet(s) PO BID 07/07/2019 1 Inactive Medrol 4 mg Tab RxNorm: 549650 Tablet(s) PO as directed 03/28/2012 Inactive Synthroid 75 mcg Tab RxNorm: 996563 1 Tablet(s) PO QD 02/14/201001/23 Inactive aspirin 81 mg tablet RxNorm: 160538 1 Tablet(s) PO QD 05/26/2015 090 09/2014 Inactive meclizine 25 mg tablet RxNorm: 393804 1 Tablet(s) PO TID as needed 11/26/2018 11/25/2018 Inactive metoprolol succinate ER 50 mg tablet,extended release 24 hr RxNorm: 569588 1 Tablet(s) PO QAM and 2 tablets in the evening 05/08/2019 05/07/2019 In active Aspirin 81 mg Tab RxNorm: 591828 1 Tablet(s) PO QD 03/31/2013 013 Inactive Vitamin D3 1,000 unit capsule RxNorm: 026927 1 Capsule(s) PO QD 04/201303/30/2013 Inactive Medication Administered No Medication Administered data Immunizations Vaccine Codes Dose Date Status Pneumococcal CVX: 133 0.5 ml 05/26/2015 Results Observation Observation Code Item Item Code Result Date S ervice Location GLYCOSYLATED HEMOGLOBIN TEST 09495 Hgb A1c 37484-7 6.0 % 0 03/01/2022 Unknown MEAN GLUC 7244832 Calc Mean Gluc 126 mg/dL 03/01/2022 Unkn own COMPREHENSIVE METABOLIC 93185 AST 16 U/L 2021 Unknown COMPREHENSIVE METABOLIC 35209 ALT 15 U/L 2021 Unknown COMPREHENSIVE METABOLIC 31192 BUN 18 mg/dL 2021 Unknown COMPREHENSIVE METABOLIC 78335 ALBUMIN 4.3 g/dL 2021 Unknown COMPREHENSIVE METABOLIC 47916 CHLORIDE 104 mmol/L 02/28 Unknown COMPREHENSIVE METABOLIC 68721 Bili Total 0.8 mg/dL 02/28 Unknown COMPREHENSIVE METABOLIC 28622 ALK PHOS 93 U/L 2021 Unknown COMPREHENSIVE METABOLIC 14620 SODIUM 143 mmol/L 02/28 Unknown COMPREHENSIVE METABOLIC 56891 CREATININE 0.82 mg/dL 03/2022 Unknown COMPREHENSIVE METABOLIC 31635 CALCIUM 9.8 mg/dL 2021 Unknown COMPREHENSIVE METABOLIC 17848 POTASSIUM 4.2 mmol/L 02/28 Unknown COMPREHENSIVE METABOLIC 83217 Total Protein 7.7 g/dL Unknown COMPREHENSIVE METABOLIC 75505 Glucose 116 mg/dL 2021 Unknown COMPREHENSIVE METABOLIC 44365 Bicarbonate 26 mmol/L 03/2022 Unknown COMPREHENSIVE METABOLIC 27046 AGAP 13 mmol/L 2021 Unknown FREE T4 24394 T4 Free 1.15 ng/dL 02/28/2022 Unknown THYROID STIMULATING HORMONE 29537 TSH 3.512 uIU/mL 02/28/2022 Unknown LIP[facility] 69455 Cholesterol 158 mg/dL 02/28/2022 [facility]kno wn [facility] 35183 Triglyceride 78 mg/dL 02/28/2022 Unkn own [facility] 83848 HDL CHOLESTEROL 66 mg/dL 02/28/2022 U nknown L[facility] 52668 Chol/HDL Ratio 2.39 ratio 02/28/2022 U nknown L[facility] GROUP 30606 NON-HDL Chol 92 mg/dL 02/28/2022 Unkn own [facility] 83254 LDL Cholesterol 76 mg/dL 02[facility]28[facility] 8396884 WBC 6.9 10e9/L 02/29/20 22 Unknown COMPLETE BLOOD COUNT 6100636 RBC 4.61 10e12/L 2021 Unknown COMPLETE BLOOD COUNT 1263633 HEMOGLOBIN 13.0 g/dL 02/29/20 22 Unknown COMPLETE BLOOD COUNT 2143021 HEMATOCRIT 42.1 % 02/29/20 22 Unknown COMPLETE BLOOD COUNT [id number] MCV 91.3 fL 2 Unknown COMPLETE BLOOD COUNT 9924626 MCH 28.2 pg 2 Unknown COMPLETE BLOOD COUNT [id number] MCHC 30.9 g/dL 2 Unknown COMPLETE BLOOD COUNT [id number] PLATELET COUNT 276 10e9/L 03/2022 Unknown COMPLETE BLOOD COUNT [id number] Mean Plt Volume 10.6 fL 03/2022 Unknown COMPLETE BLOOD COUNT [id number] NRBC Absolute 0.00 10e9/L 03/2022 Unknown COMPLETE BLOOD COUNT 8678911 Neut Auto 53.0 % 2 Unknown COMPLETE BLOOD COUNT 8367311 NRBC/100 WBC 0.0 2021 Unknown COMPLETE BLOOD COUNT [id number] Lymph Auto 32.0 % 02/29/20 22 Unknown COMPLETE BLOOD COUNT 1013101 Jay Auto 11.0 % 2 Unknown COMPLETE BLOOD COUNT [id number] RDW 14.4 % 2 Unknown COMPLETE BLOOD COUNT [id number] Eos Auto 2.5 % 2 Unknown COMPLETE BLOOD COUNT 0261407 Baso Auto 1.4 % 2 Unknown COMPLETE BLOOD COUNT 1530042 Neutrophil Abs 3.66 10e9/L Unknown COMPLETE BLOOD COUNT 6781518 Imm Gran Auto 0.1 % 02/28 Unknown COMPLETE BLOOD COUNT [id number] Lymphocyte Abs 2.21 10e9/L Unknown COMPLETE BLOOD COUNT [id number] Monocyte Abs 0.76 10e9/L 03/2022 Unknown COMPLETE BLOOD COUNT [id number] Eosinophil Abs 0.17 10e9/L Unknown COMPLETE BLOOD COUNT [id number] RDW-SD 47.8 fL 2 Unknown COMPLETE BLOOD COUNT [id number] Basophil Abs 0.10 10e9/L 03/2022 Unknown COMPLETE BLOOD COUNT [id number] Imm Gran Abs 0.01 10e9/L 03/2022 Unknown GFR CALC 6801815 GFR >60 mL/min 02/28/2022 Unknown THYROID STIMULATING HORMONE 87839 TSH 3.017 uIU/mL 01/31/2021 Unknown COMPLETE BLOOD COUNT 8077543 WBC 6.1 10e9/L 02/01/20 21 Unknown COMPLETE BLOOD COUNT [id number] RBC 4.22 10e12/L 2020 Unknown COMPLETE BLOOD COUNT [id number] HEMOGLOBIN 12.1 g/dL 02/01/20 21 Unknown COMPLETE BLOOD COUNT 9932589 HEMATOCRIT 39.5 % 02/01/20 21 Unknown COMPLETE BLOOD COUNT [id number] MCV 93.6 fL 1 Unknown COMPLETE BLOOD COUNT [id number] MCH 28.7 pg 1 Unknown COMPLETE BLOOD COUNT 7960099 MCHC 30.6 g/dL 1 Unknown COMPLETE BLOOD COUNT 7956260 PLATELET COUNT 271 10e9/L 06/2021 Unknown COMPLETE BLOOD COUNT 2147353 Mean Plt Volume 11.0 fL 06/2021 Unknown COMPLETE BLOOD COUNT 7945862 Neut Auto 57.3 % 1 Unknown COMPLETE BLOOD COUNT [id number] Lymph Auto 28.3 % 02/01/20 21 Unknown COMPLETE BLOOD COUNT [id number] Jay Auto 10.9 % 1 Unknown COMPLETE BLOOD COUNT [id number] RDW 14.4 % 1 Unknown COMPLETE BLOOD COUNT 9078282 Eos Auto 2.8 % 1 Unknown COMPLETE BLOOD COUNT 9003592 Baso Auto 0.7 % 1 Unknown COMPLETE BLOOD COUNT [id number] Neutrophil Abs 3.50 10e9/L Unknown COMPLETE BLOOD COUNT 6018816 Lymphocyte Abs 1.73 10e9/L Unknown COMPLETE BLOOD COUNT [id number] Monocyte Abs 0.66 10e9/L 01/22 Unknown COMPLETE BLOOD COUNT [id number] Eosinophil Abs 0.17 10e9/L Unknown COMPLETE BLOOD COUNT 7659484 RDW-SD 47.4 fL Unknown COMPLETE BLOOD COUNT [id number] Basophil Abs 0.04 10e9/L 01/22 Unknown GLYCOSYLATED HEMOGLOBIN TEST 53622 Hgb A1c 83326-8 5.9 % 0 01/31/2021 Unknown LIPID GROUP 90470 Cholesterol 151 mg/dL 01/31/2021 Unkno wn LIPID GROUP 68399 Triglyceride 68 mg/dL 01/31/2021 Unkn own LIPID GROUP 05324 HDL CHOLESTEROL 64 mg/dL 01/31/2021 U nknown LIPID GROUP 49874 Chol/HDL Ratio 2.36 ratio 01/31/2021 U nknown LIPID GROUP 62812 NON-HDL Chol 87 mg/dL 01/31/2021 Unkn own LIPID GROUP 61974 LDL Cholesterol 73 mg/dL 01/31/2021 U nknown MEAN GLUC 2026252 Calc Mean Gluc 123 mg/dL 01/31/2021 Unkn own FREE T4 37442 T4 Free 1.11 ng/dL 01/31/2021 Unknown COMPREHENSIVE METABOLIC 20540 AST 16 U/L 2020 Unknown COMPREHENSIVE METABOLIC 34683 ALT 12 U/L 2020 Unknown COMPREHENSIVE METABOLIC 23721 BUN 14 mg/dL 2020 Unknown COMPREHENSIVE METABOLIC 77218 ALBUMIN 4.3 g/dL 2020 Unknown COMPREHENSIVE METABOLIC 73603 CHLORIDE 106 mmol/L 01/31 Unknown COMPREHENSIVE METABOLIC 93162 Bili Total 0.9 mg/dL 01/31 Unknown COMPREHENSIVE METABOLIC 73623 ALK PHOS 96 U/L 2020 Unknown COMPREHENSIVE METABOLIC 40747 SODIUM 144 mmol/L 01/31 Unknown COMPREHENSIVE METABOLIC 47747 CREATININE 0.77 mg/dL 01/22 Unknown COMPREHENSIVE METABOLIC 51026 CALCIUM 9.4 mg/dL 2020 Unknown COMPREHENSIVE METABOLIC 76894 POTASSIUM 4.2 mmol/L 01/31 Unknown COMPREHENSIVE METABOLIC 14077 Total Protein 7.4 g/dL Unknown COMPREHENSIVE METABOLIC 43127 Glucose 94 mg/dL 2020 Unknown COMPREHENSIVE METABOLIC 36302 Bicarbonate 30 mmol/L 01/22 Unknown COMPREHENSIVE METABOLIC 24936 AGAP 8 mmol/L 2020 Unknown GFR CALC 7654715 GFR Non Afr Amr >60 mL/min 01/31/2021 Un known GFR CALC 9804900 GFR Afr Amr >60 mL/min 01/31/2021 Unknow n COMPLETE BLOOD COUNT 9981474 WBC 6.9 10e9/L 01/05/20 20 Unknown COMPLETE BLOOD COUNT 2578108 RBC 4.20 10e12/L 2019 Unknown COMPLETE BLOOD COUNT [id number] HEMOGLOBIN 12.2 g/dL 01/05/20 20 Unknown COMPLETE BLOOD COUNT 6659898 HEMATOCRIT 39.2 % 01/05/20 20 Unknown COMPLETE BLOOD COUNT 1499049 MCV 93.3 fL 0 Unknown COMPLETE BLOOD COUNT 9842938 MCH 29.0 pg 0 Unknown COMPLETE BLOOD COUNT 2505226 MCHC 31.1 g/dL 0 Unknown COMPLETE BLOOD COUNT 7651789 PLATELET COUNT 272 10e9/L Unknown COMPLETE BLOOD COUNT 5651110 Mean Plt Volume 11.0 fL Unknown COMPLETE BLOOD COUNT 7518276 Neut Auto 61.4 % 0 Unknown COMPLETE BLOOD COUNT 1506409 Lymph Auto 22.4 % 01/05/20 20 Unknown COMPLETE BLOOD COUNT [id number] Jay Auto 11.7 % 0 Unknown COMPLETE BLOOD COUNT 7095202 RDW 14.6 % 0 Unknown COMPLETE BLOOD COUNT 2128700 Eos Auto 3.6 % 0 Unknown COMPLETE BLOOD COUNT 1347509 Baso Auto 0.9 % 0 Unknown COMPLETE BLOOD COUNT 8274639 Neutrophil Abs 4.24 10e9/L Unknown COMPLETE BLOOD COUNT 2757380 Lymphocyte Abs 1.55 10e9/L Unknown COMPLETE BLOOD COUNT 5984707 Monocyte Abs 0.81 10e9/L 12/23 Unknown COMPLETE BLOOD COUNT 7222569 Eosinophil Abs 0.25 10e9/L Unknown COMPLETE BLOOD COUNT 2080115 RDW-SD 48.2 fL 0 Unknown COMPLETE BLOOD COUNT [id number] Basophil Abs 0.06 10e9/L 12/23 Unknown COMPREHENSIVE METABOLIC 93184 AST 17 U/L 2019 Unknown COMPREHENSIVE METABOLIC 11193 ALT 12 U/L 2019 Unknown COMPREHENSIVE METABOLIC 15867 BUN 18 mg/dL 2019 Unknown COMPREHENSIVE METABOLIC 80090 ALBUMIN 4.5 g/dL 2019 Unknown COMPREHENSIVE METABOLIC 88888 CHLORIDE 101 mmol/L 01/04 Unknown COMPREHENSIVE METABOLIC 86419 Bili Total 0.8 mg/dL 01/04 Unknown COMPREHENSIVE METABOLIC 11385 ALK PHOS 76 U/L 2019 Unknown COMPREHENSIVE METABOLIC 15409 SODIUM 141 mmol/L 01/04 Unknown COMPREHENSIVE METABOLIC 89397 CREATININE 1.02 mg/dL 12/23 Unknown COMPREHENSIVE METABOLIC 80301 CALCIUM 9.5 mg/dL 2019 Unknown COMPREHENSIVE METABOLIC 79989 POTASSIUM 3.9 mmol/L 01/04 Unknown COMPREHENSIVE METABOLIC 54644 Total Protein 7.4 g/dL Unknown COMPREHENSIVE METABOLIC 22330 Glucose 89 mg/dL 2019 Unknown COMPREHENSIVE METABOLIC 29975 Bicarbonate 28 mmol/L 12/23 Unknown COMPREHENSIVE METABOLIC 92053 AGAP 12 mmol/L 2019 Unknown LIPASE 69488 Lipase Lvl 34 IU/L 01/05/2020 Unknown THYROID STIMULATING HORMONE 40041 TSH 3.767 uIU/mL 01/05/2020 Unknown AMYLASE 17097 Amylase Lvl 60 IU/L 01/05/2020 Unknown GFR CALC 3939850 GFR Non Afr Amr 52 mL/min 01/05/2020 Unk nown GFR CALC 4872392 GFR Afr Amr >60 mL/min 01/05/2020 Unknow n FREE T4 90165 T4 Free 1.11 ng/dL 01/05/2020 Unknown GFR CALC 1393047 GFR Non Afr Amr 59 mL/min 12/05/2019 Unk nown GFR CALC 3233765 GFR Afr Amr >60 mL/min 12/05/2019 Unknow n COMPREHENSIVE METABOLIC 30704 AST 15 U/L 2019 Unknown COMPREHENSIVE METABOLIC 58315 ALT 12 U/L 2019 Unknown COMPREHENSIVE METABOLIC 39926 BUN 19 mg/dL 2019 Unknown COMPREHENSIVE METABOLIC 16309 ALBUMIN 4.2 g/dL 2019 Unknown COMPREHENSIVE METABOLIC 76139 CHLORIDE 104 mmol/L 12/04 Unknown COMPREHENSIVE METABOLIC 62191 Bili Total 1.0 mg/dL 12/04 Unknown COMPREHENSIVE METABOLIC 71907 ALK PHOS 78 U/L 2019 Unknown COMPREHENSIVE METABOLIC 34410 SODIUM 145 mmol/L 12/04 Unknown COMPREHENSIVE METABOLIC 19152 CREATININE 0.91 mg/dL 11/22 Unknown COMPREHENSIVE METABOLIC 99169 CALCIUM 9.3 mg/dL 2019 Unknown COMPREHENSIVE METABOLIC 68135 POTASSIUM 3.6 mmol/L 12/04 Unknown COMPREHENSIVE METABOLIC 19465 Total Protein 7.0 g/dL Unknown COMPREHENSIVE METABOLIC 09481 Glucose 96 mg/dL 2019 Unknown COMPREHENSIVE METABOLIC 68250 Bicarbonate 28 mmol/L 11/22 Unknown COMPREHENSIVE METABOLIC 61855 AGAP 13 mmol/L 2019 Unknown COMPREHENSIVE METABOLIC 45799 AST 15 U/L 2019 Unknown COMPREHENSIVE METABOLIC 01475 ALT 11 U/L 2019 Unknown COMPREHENSIVE METABOLIC 97027 BUN 14 mg/dL 2019 Unknown COMPREHENSIVE METABOLIC 69562 ALBUMIN 4.3 g/dL 2019 Unknown COMPREHENSIVE METABOLIC 19017 CHLORIDE 106 mmol/L 11/05 Unknown COMPREHENSIVE METABOLIC 92680 Bili Total 0.7 mg/dL 11/05 Unknown COMPREHENSIVE METABOLIC 88090 ALK PHOS 80 U/L 2019 Unknown COMPREHENSIVE METABOLIC 77870 SODIUM 145 mmol/L 11/05 Unknown COMPREHENSIVE METABOLIC 75727 CREATININE 0.97 mg/dL 10/25 Unknown COMPREHENSIVE METABOLIC 56778 CALCIUM 9.5 mg/dL 2019 Unknown COMPREHENSIVE METABOLIC 14058 POTASSIUM 3.9 mmol/L 11/05 Unknown COMPREHENSIVE METABOLIC 34787 Total Protein 7.0 g/dL Unknown COMPREHENSIVE METABOLIC 20940 Glucose 103 mg/dL 2019 Unknown COMPREHENSIVE METABOLIC 17943 Bicarbonate 29 mmol/L 10/25 Unknown COMPREHENSIVE METABOLIC 56332 AGAP 10 mmol/L 2019 Unknown GFR CALC 2170660 GFR Non Afr Amr 55 mL/min 11/05/2019 Unk nown GFR CALC 1267373 GFR Afr Amr >60 mL/min 11/05/2019 Unknow n FREE T4 06660 T4 Free 1.34 ng/dL 10/21/2019 Unknown COMPLETE BLOOD COUNT 1374786 WBC 7.2 10e9/L 10/21/19 20 Unknown COMPLETE BLOOD COUNT [id number] RBC 4.17 10e12/L 2019 Unknown COMPLETE BLOOD COUNT 6306704 HEMOGLOBIN 12.1 g/dL 10/21/19 20 Unknown COMPLETE BLOOD COUNT 2364700 HEMATOCRIT 39.0 % 01/28/20 20 Unknown COMPLETE BLOOD COUNT 5838481 MCV 93.5 fL 0 Unknown COMPLETE BLOOD COUNT 3784447 MCH 29.0 pg 0 Unknown COMPLETE BLOOD COUNT 1980129 MCHC 31.0 g/dL 0 Unknown COMPLETE BLOOD COUNT 7659644 PLATELET COUNT 239 10e9/L Unknown COMPLETE BLOOD COUNT 2026734 Mean Plt Volume 11.7 fL Unknown COMPLETE BLOOD COUNT 0469359 Neut Auto 63.7 % 0 Unknown COMPLETE BLOOD COUNT 4573731 Lymph Auto 21.0 % 10/21/19 20 Unknown COMPLETE BLOOD COUNT 9662447 Jay Auto 11.1 % 0 Unknown COMPLETE BLOOD COUNT 5950084 RDW 13.6 % 0 Unknown COMPLETE BLOOD COUNT 3114032 Eos Auto 3.6 % 0 Unknown COMPLETE BLOOD COUNT 2497179 Baso Auto 0.6 % 0 Unknown COMPLETE BLOOD COUNT 4612808 Neutrophil Abs 4.59 10e9/L Unknown COMPLETE BLOOD COUNT 7690694 Lymphocyte Abs 1.51 10e9/L Unknown COMPLETE BLOOD COUNT [id number] Monocyte Abs 0.80 10e9/L 09/25 Unknown COMPLETE BLOOD COUNT 6863485 Eosinophil Abs 0.26 10e9/L Unknown COMPLETE BLOOD COUNT 2139085 RDW-SD 45.1 fL 0 Unknown COMPLETE BLOOD COUNT [id number] Basophil Abs 0.04 10e9/L 09/25 Unknown GFR CALC 9770831 GFR Non Afr Amr 42 mL/min 10/21/2019 Unk nown GFR CALC 9885529 GFR Afr Amr 50 mL/min 10/21/2019 Unknown COMPREHENSIVE METABOLIC 41202 AST 16 U/L 2019 Unknown COMPREHENSIVE METABOLIC 15453 ALT 10 U/L 2019 Unknown COMPREHENSIVE METABOLIC 66488 BUN 20 mg/dL 2019 Unknown COMPREHENSIVE METABOLIC 36753 ALBUMIN 4.4 g/dL 2019 Unknown COMPREHENSIVE METABOLIC 97489 CHLORIDE 102 mmol/L 10/21 Unknown COMPREHENSIVE METABOLIC 01309 Bili Total 0.8 mg/dL 10/21 Unknown COMPREHENSIVE METABOLIC 66481 ALK PHOS 85 U/L 2019 Unknown COMPREHENSIVE METABOLIC 46386 SODIUM 144 mmol/L 10/21 Unknown COMPREHENSIVE METABOLIC 41374 CREATININE 1.24 mg/dL 09/25 Unknown COMPREHENSIVE METABOLIC 72751 CALCIUM 9.8 mg/dL 2019 Unknown COMPREHENSIVE METABOLIC 64758 POTASSIUM 4.2 mmol/L 10/21 Unknown COMPREHENSIVE METABOLIC 43137 Total Protein 7.3 g/dL Unknown COMPREHENSIVE METABOLIC 45470 Glucose 98 mg/dL 2019 Unknown COMPREHENSIVE METABOLIC 83421 Bicarbonate 31 mmol/L 09/25 Unknown COMPREHENSIVE METABOLIC 31169 AGAP 11 mmol/L 2019 Unknown THYROID STIMULATING HORMONE 47005 TSH 2.693 uIU/mL 10/21/2019 Unknown LIPID GROUP 75032 Cholesterol 142 mg/dL 10/21/2019 Unkno wn LIPID GROUP 32931 Triglyceride 120 mg/dL 10/21/2019 Unkn own LIPID GROUP 61496 HDL CHOLESTEROL 54 mg/dL 10/21/2019 U nknown LIPID GROUP 81939 Chol/HDL Ratio 2.63 ratio 10/21/2019 U nknown LIPID GROUP 51963 NON-HDL Chol 88 mg/dL 10/21/2019 Unkn own LIPID GROUP 80356 LDL Cholesterol 64 mg/dL 10/21/2019 U nknown GFR CALC 1899553 GFR Non Afr Amr >60 mL/min 04/04/2019 Un known GFR CALC [id number] GFR Afr Amr >60 mL/min 04/04/2019 Unknow n COMPLETE BLOOD COUNT [id number] WBC 5.9 10e9/L 04/04/20 19 Unknown COMPLETE BLOOD COUNT [id number] RBC 4.29 10e12/L 2018 Unknown COMPLETE BLOOD COUNT [id number] HEMOGLOBIN 12.3 g/dL 04/04/20 19 Unknown COMPLETE BLOOD COUNT [id number] HEMATOCRIT 39.2 % 04/04/20 19 Unknown COMPLETE BLOOD COUNT 1560018 MCV 91.4 fL 9 Unknown COMPLETE BLOOD COUNT [id number] MCH 28.7 pg 9 Unknown COMPLETE BLOOD COUNT 4202566 MCHC 31.4 g/dL 9 Unknown COMPLETE BLOOD COUNT [id number] PLATELET COUNT 225 10e9/L 08/2019 Unknown COMPLETE BLOOD COUNT [id number] Mean Plt Volume 11.0 fL 08/2019 Unknown COMPLETE BLOOD COUNT [id number] Neut Auto 57.2 % 9 Unknown COMPLETE BLOOD COUNT [id number] Lymph Auto 27.3 % 04/04/20 19 Unknown COMPLETE BLOOD COUNT [id number] Jay Auto 11.2 % 9 Unknown COMPLETE BLOOD COUNT [id number] RDW 14.3 % 9 Unknown COMPLETE BLOOD COUNT 5032116 Eos Auto 3.4 % 9 Unknown COMPLETE BLOOD COUNT 0278298 Baso Auto 0.9 % 9 Unknown COMPLETE BLOOD COUNT 7987102 Neutrophil Abs 3.37 10e9/L Unknown COMPLETE BLOOD COUNT [id number] Lymphocyte Abs 1.61 10e9/L Unknown COMPLETE BLOOD COUNT [id number] Monocyte Abs 0.66 10e9/L 03/24 Unknown COMPLETE BLOOD COUNT [id number] Eosinophil Abs 0.20 10e9/L Unknown COMPLETE BLOOD COUNT [id number] RDW-SD 46.6 fL 9 Unknown COMPLETE BLOOD COUNT [id number] Basophil Abs 0.05 10e9/L 03/24 Unknown THYROID STIMULATING HORMONE 01928 TSH 2.068 uIU/mL 04/04/2019 Unknown COMPREHENSIVE METABOLIC 59612 AST 17 U/L 2018 Unknown COMPREHENSIVE METABOLIC 98128 ALT 12 U/L 2018 Unknown COMPREHENSIVE METABOLIC 31951 BUN 17 mg/dL 2018 Unknown COMPREHENSIVE METABOLIC 31478 ALBUMIN 4.3 g/dL 2018 Unknown COMPREHENSIVE METABOLIC 91380 CHLORIDE 107 mmol/L 04/04 Unknown COMPREHENSIVE METABOLIC 65612 Bili Total 1.1 mg/dL 04/04 Unknown COMPREHENSIVE METABOLIC 26756 ALK PHOS 74 U/L 2018 Unknown COMPREHENSIVE METABOLIC 99835 SODIUM 144 mmol/L 04/04 Unknown COMPREHENSIVE METABOLIC 96257 CREATININE 0.70 mg/dL 03/24 Unknown COMPREHENSIVE METABOLIC 50616 CALCIUM 9.5 mg/dL 2018 Unknown COMPREHENSIVE METABOLIC 16657 POTASSIUM 4.1 mmol/L 04/04 Unknown COMPREHENSIVE METABOLIC 96546 Total Protein 6.8 g/dL Unknown COMPREHENSIVE METABOLIC 98103 Glucose 95 mg/dL 2018 Unknown COMPREHENSIVE METABOLIC 53148 Bicarbonate 29 mmol/L 03/24 Unknown COMPREHENSIVE METABOLIC 91750 AGAP 8 mmol/L 2018 Unknown FREE T4 49178 T4 Free 1.09 ng/dL 04/04/2019 Unknown LIPID GROUP 20473 Cholesterol 149 mg/dL 04/04/2019 Unkno wn LIPID GROUP 29653 Triglyceride 70 mg/dL 04/04/2019 Unkn own LIPID GROUP 85725 HDL CHOLESTEROL 62 mg/dL 04/04/2019 U nknown LIPID GROUP 84822 Chol/HDL Ratio 2.40 ratio 04/04/2019 U nknown LIPID GROUP 75032 NON-HDL Chol 87 mg/dL 04/04/2019 Unkn own LIPID GROUP 18204 LDL Cholesterol 73 mg/dL 04/04/2019 U nknown THYROID STIMULATING HORMONE 83785 TSH 3.698 uIU/mL 10/08/2018 Unknown FREE T4 78551 T4 Free 1.24 ng/dL 10/08/2018 Unknown GFR CALC [id number] GFR Non Afr Amr >60 mL/min 10/07/2018 Un known GFR CALC 1764782 GFR Afr Amr >60 mL/min 10/07/2018 Unknow n COMPLETE BLOOD COUNT [id number] WBC 6.3 10e9/L 10/07/19 19 Unknown COMPLETE BLOOD COUNT [id number] RBC 4.22 10e12/L 2018 Unknown COMPLETE BLOOD COUNT [id number] HEMOGLOBIN 12.2 g/dL 10/07/19 19 Unknown COMPLETE BLOOD COUNT 8748213 HEMATOCRIT 39.4 % 10/07/19 19 Unknown COMPLETE BLOOD COUNT [id number] MCV 93.4 fL 9 Unknown COMPLETE BLOOD COUNT 2552594 MCH 28.9 pg 9 Unknown COMPLETE BLOOD COUNT 0951017 MCHC 31.0 g/dL 9 Unknown COMPLETE BLOOD COUNT 9257261 PLATELET COUNT 231 10e9/L Unknown COMPLETE BLOOD COUNT 8129137 Mean Plt Volume 11.2 fL Unknown COMPLETE BLOOD COUNT 3222324 Neut Auto 55.7 % 9 Unknown COMPLETE BLOOD COUNT [id number] Lymph Auto 30.3 % 10/07/19 19 Unknown COMPLETE BLOOD COUNT 2296571 Jay Auto 9.6 % 9 Unknown COMPLETE BLOOD COUNT 9415004 RDW 14.0 % 9 Unknown COMPLETE BLOOD COUNT 0065900 Eos Auto 3.5 % 9 Unknown COMPLETE BLOOD COUNT 1218012 Baso Auto 0.9 % 9 Unknown COMPLETE BLOOD COUNT 2764598 Neutrophil Abs 3.51 10e9/L Unknown COMPLETE BLOOD COUNT 6919924 Lymphocyte Abs 1.91 10e9/L Unknown COMPLETE BLOOD COUNT 2251786 Monocyte Abs 0.60 10e9/L 09/24 Unknown COMPLETE BLOOD COUNT 8168200 Eosinophil Abs 0.22 10e9/L Unknown COMPLETE BLOOD COUNT 1649930 RDW-SD 46.1 fL 9 Unknown COMPLETE BLOOD COUNT [id number] Basophil Abs 0.06 10e9/L 09/24 Unknown COMPREHENSIVE METABOLIC 70282 AST 14 U/L 2018 Unknown COMPREHENSIVE METABOLIC 12326 ALT 10 U/L 2018 Unknown COMPREHENSIVE METABOLIC 29837 BUN 21 mg/dL 2018 Unknown COMPREHENSIVE METABOLIC 21862 ALBUMIN 4.4 g/dL 2018 Unknown COMPREHENSIVE METABOLIC 84266 CHLORIDE 105 mmol/L 10/07 Unknown COMPREHENSIVE METABOLIC 74252 Bili Total 0.7 mg/dL 10/07 Unknown COMPREHENSIVE METABOLIC 39508 ALK PHOS 80 U/L 2018 Unknown COMPREHENSIVE METABOLIC 88891 SODIUM 143 mmol/L 10/07 Unknown COMPREHENSIVE METABOLIC 62400 CREATININE 0.67 mg/dL 09/24 Unknown COMPREHENSIVE METABOLIC 71314 CALCIUM 9.3 mg/dL 2018 Unknown COMPREHENSIVE METABOLIC 78463 POTASSIUM 3.8 mmol/L 10/07 Unknown COMPREHENSIVE METABOLIC 26283 Total Protein 7.0 g/dL Unknown COMPREHENSIVE METABOLIC 67103 Glucose 98 mg/dL 2018 Unknown COMPREHENSIVE METABOLIC 74208 Bicarbonate 32 mmol/L 09/24 Unknown COMPREHENSIVE METABOLIC 93246 AGAP 6 mmol/L 2018 Unknown LIPID GROUP 10083 Cholesterol 160 mg/dL 10/07/2018 Unkno wn LIPID GROUP 73754 Triglyceride 101 mg/dL 10/07/2018 Unkn own LIPID GROUP 83412 HDL CHOLESTEROL 63 mg/dL 10/07/2018 U nknown LIPID GROUP 51991 Chol/HDL Ratio 2.54 ratio 10/07/2018 U nknown LIPID GROUP 33938 NON-HDL Chol 97 mg/dL 10/07/2018 Unkn own LIPID GROUP 14903 LDL Cholesterol 77 mg/dL 10/07/2018 U nknown MEAN GLUC 8454313 Calc Mean Gluc 114 mg/dL 10/07/2018 Unkn own GLYCOSYLATED HEMOGLOBIN TEST 40692 Hgb A1c 54622-8 5.6 % 0 10/07/2018 Unknown FREE T4 69802 T4 Free 1.21 ng/dL 02/14/2018 Unknown THYROID STIMULATING HORMONE 49395 TSH 2.977 uIU/mL 02/14/2018 Unknown COMPLETE BLOOD COUNT 7096924 WBC 5.6 10e9/L 02/14/20 18 Unknown COMPLETE BLOOD COUNT 3366990 RBC 4.23 10e12/L 2017 Unknown COMPLETE BLOOD COUNT 9302990 HEMOGLOBIN 12.4 g/dL 02/14/20 18 Unknown COMPLETE BLOOD COUNT 5806304 HEMATOCRIT 39.1 % 02/14/20 18 Unknown COMPLETE BLOOD COUNT 0800705 MCV 92.4 fL 8 Unknown COMPLETE BLOOD COUNT 8881541 MCH 29.3 pg 8 Unknown COMPLETE BLOOD COUNT 9761434 MCHC 31.7 g/dL 8 Unknown COMPLETE BLOOD COUNT 2659484 PLATELET COUNT 268 10e9/L Unknown COMPLETE BLOOD COUNT 0182584 Mean Plt Volume 11.0 fL Unknown COMPLETE BLOOD COUNT 0005912 Neut Auto 52.1 % 8 Unknown COMPLETE BLOOD COUNT 9048365 Lymph Auto 32.0 % 02/14/20 18 Unknown COMPLETE BLOOD COUNT 2494988 Jay Auto 11.8 % 8 Unknown COMPLETE BLOOD COUNT 0110547 RDW 14.6 % 8 Unknown COMPLETE BLOOD COUNT 1490444 Eos Auto 3.2 % 8 Unknown COMPLETE BLOOD COUNT 0631572 Baso Auto 0.9 % 8 Unknown COMPLETE BLOOD COUNT 8309854 Neutrophil Abs 2.92 10e9/L Unknown COMPLETE BLOOD COUNT 2601583 Lymphocyte Abs 1.79 10e9/L Unknown COMPLETE BLOOD COUNT 9652328 Monocyte Abs 0.66 10e9/L 01/23 Unknown COMPLETE BLOOD COUNT 4818875 Eosinophil Abs 0.18 10e9/L Unknown COMPLETE BLOOD COUNT 8267448 RDW-SD 48.2 fL 8 Unknown COMPLETE BLOOD COUNT 5540419 Basophil Abs 0.05 10e9/L 01/23 Unknown GFR CALC 8386918 GFR Non Afr Amr >60 mL/min 02/13/2018 Un known GFR CALC 4895572 GFR Afr Amr >60 mL/min 02/13/2018 Unknow n COMPREHENSIVE METABOLIC 27042 AST 18 U/L 2017 Unknown COMPREHENSIVE METABOLIC 00233 ALT 13 U/L 2017 Unknown COMPREHENSIVE METABOLIC 74048 BUN 14 mg/dL 2017 Unknown COMPREHENSIVE METABOLIC 31780 ALBUMIN 4.3 g/dL 2017 Unknown COMPREHENSIVE METABOLIC 78994 CHLORIDE 108 mmol/L 02/13 Unknown COMPREHENSIVE METABOLIC 35247 Bili Total 0.8 mg/dL 02/13 Unknown COMPREHENSIVE METABOLIC 06553 ALK PHOS 82 U/L 2017 Unknown COMPREHENSIVE METABOLIC 09183 SODIUM 144 mmol/L 02/13 Unknown COMPREHENSIVE METABOLIC 68932 CREATININE 0.67 mg/dL 01/23 Unknown COMPREHENSIVE METABOLIC 60946 CALCIUM 9.4 mg/dL 2017 Unknown COMPREHENSIVE METABOLIC 96540 POTASSIUM 4.1 mmol/L 02/13 Unknown COMPREHENSIVE METABOLIC 18183 Total Protein 6.9 g/dL Unknown COMPREHENSIVE METABOLIC 73652 Glucose 103 mg/dL 2017 Unknown COMPREHENSIVE METABOLIC 00112 Bicarbonate 27 mmol/L 01/23 Unknown COMPREHENSIVE METABOLIC 39968 AGAP 9 mmol/L 2017 Unknown LIPID GROUP 03348 Cholesterol 169 mg/dL 10/15/2017 Unkno wn LIPID GROUP 47386 Triglyceride 99 mg/dL 10/15/2017 Unkn own LIPID GROUP 68577 HDL CHOLESTEROL 69 10/15/2017 U nknown LIPID GROUP 51258 Chol/HDL Ratio 2.45 ratio 10/15/2017 U nknown LIPID GROUP 12238 NON-HDL Chol 100 mg/dL 10/15/2017 Unkn own LIPID GROUP 95797 LDL Cholesterol 80 mg/dL 10/15/2017 U nknown COMPREHENSIVE METABOLIC 60561 AST 17 U/L 2017 Unknown COMPREHENSIVE METABOLIC 75731 ALT 13 U/L 2017 Unknown COMPREHENSIVE METABOLIC 26029 BUN 22 mg/dL 2017 Unknown COMPREHENSIVE METABOLIC 87143 ALBUMIN 4.5 g/dL 2017 Unknown COMPREHENSIVE METABOLIC 54571 CHLORIDE 99 mmol/L 2017 Unknown COMPREHENSIVE METABOLIC 91240 Bili Total 0.8 mg/dL 10/15 Unknown COMPREHENSIVE METABOLIC 34452 ALK PHOS 78 U/L 2017 Unknown COMPREHENSIVE METABOLIC 06082 SODIUM 150 mmol/L 10/15 Unknown COMPREHENSIVE METABOLIC 94157 CREATININE 0.73 mg/dL 09/25 Unknown COMPREHENSIVE METABOLIC 44367 CALCIUM 9.5 mg/dL 2017 Unknown COMPREHENSIVE METABOLIC 39176 POTASSIUM 4.2 mmol/L 10/15 Unknown COMPREHENSIVE METABOLIC 36695 Total Protein 7.2 g/dL Unknown COMPREHENSIVE METABOLIC 69565 Glucose 96 mg/dL 2017 Unknown COMPREHENSIVE METABOLIC 88482 Bicarbonate 29 mmol/L 09/25 Unknown COMPREHENSIVE METABOLIC 17763 AGAP 22 mmol/L 2017 Unknown GFR CALC 5891089 GFR Non Afr Amr >60 mL/min 10/15/2017 Un known GFR CALC 7083394 GFR Afr Amr >60 mL/min 10/15/2017 Unknow n THYROID STIMULATING HORMONE 34544 TSH 4.502 uIU/mL 10/15/2017 Unknown FREE T4 41343 T4 Free 1.44 ng/dL 10/15/2017 Unknown VITAMIN B 12 09774 VITAMIN B12 698 pg/mL 10/15/2017 Unkn own COMPLETE BLOOD COUNT 8316886 WBC 6.3 10e9/L 10/15/19 18 Unknown COMPLETE BLOOD COUNT 5621358 RBC 4.37 10e12/L 2017 Unknown COMPLETE BLOOD COUNT 6678573 HEMOGLOBIN 12.6 g/dL 10/15/19 18 Unknown COMPLETE BLOOD COUNT 1900004 HEMATOCRIT 40.3 % 10/15/19 18 Unknown COMPLETE BLOOD COUNT 1193625 MCV 92.2 fL 8 Unknown COMPLETE BLOOD COUNT 0230948 MCH 28.8 pg 8 Unknown COMPLETE BLOOD COUNT 4412544 MCHC 31.3 g/dL 8 Unknown COMPLETE BLOOD COUNT 0791607 PLATELET COUNT 256 10e9/L Unknown COMPLETE BLOOD COUNT 6466419 Mean Plt Volume 11.1 fL Unknown COMPLETE BLOOD COUNT 7332812 Neut Auto 54.8 % 8 Unknown COMPLETE BLOOD COUNT 6715622 Lymph Auto 30.5 % 10/15/19 18 Unknown COMPLETE BLOOD COUNT 8743959 Jay Auto 10.4 % 8 Unknown COMPLETE BLOOD COUNT 4159756 RDW 14.0 % 8 Unknown COMPLETE BLOOD COUNT 4603578 Eos Auto 3.8 % 8 Unknown COMPLETE BLOOD COUNT 8891756 Baso Auto 0.5 % 8 Unknown COMPLETE BLOOD COUNT 5830735 Neutrophil Abs 3.45 10e9/L Unknown COMPLETE BLOOD COUNT 8365418 Lymphocyte Abs 1.92 10e9/L Unknown COMPLETE BLOOD COUNT 6022059 Monocyte Abs 0.66 10e9/L 09/25 Unknown COMPLETE BLOOD COUNT 3689489 Eosinophil Abs 0.24 10e9/L Unknown COMPLETE BLOOD COUNT 1853608 RDW-SD 46.1 fL 8 Unknown COMPLETE BLOOD COUNT 6293824 Basophil Abs 0.03 10e9/L 09/25 Unknown VITAMIN B 12 63697 VITAMIN B12 823 pg/mL 03/30/2017 Unkn own VITAMIN B 12 38145 VITAMIN B12 321 pg/mL 12/18/2016 Unkn own COMPLETE BLOOD COUNT 7956408 WBC 6.8 10e9/L 12/12/19 17 Unknown COMPLETE BLOOD COUNT 2320926 RBC 4.37 10e12/L 2016 Unknown COMPLETE BLOOD COUNT 8883968 HEMOGLOBIN 12.5 g/dL 12/12/19 17 Unknown COMPLETE BLOOD COUNT 9998331 HEMATOCRIT 39.3 % 12/12/19 17 Unknown COMPLETE BLOOD COUNT 5958386 MCV 89.9 fL 7 Unknown COMPLETE BLOOD COUNT 2124562 MCH 28.6 pg 7 Unknown COMPLETE BLOOD COUNT 5401402 MCHC 31.8 g/dL 7 Unknown COMPLETE BLOOD COUNT 2236716 PLATELET COUNT 248 10e9/L Unknown COMPLETE BLOOD COUNT 6441685 Mean Plt Volume 10.9 fL Unknown COMPLETE BLOOD COUNT 5439132 Neut Auto 52.0 % 7 Unknown COMPLETE BLOOD COUNT 6396102 Lymph Auto 33.4 % 12/12/19 17 Unknown COMPLETE BLOOD COUNT 9020295 Jay Auto 10.1 % 7 Unknown COMPLETE BLOOD COUNT 8622496 RDW 14.6 % 7 Unknown COMPLETE BLOOD COUNT 3857211 Eos Auto 3.8 % 7 Unknown COMPLETE BLOOD COUNT 4928158 Baso Auto 0.7 % 7 Unknown COMPLETE BLOOD COUNT 5686053 Neutrophil Abs 3.54 10e9/L Unknown COMPLETE BLOOD COUNT 2835918 Lymphocyte Abs 2.27 10e9/L Unknown COMPLETE BLOOD COUNT 7377580 Monocyte Abs 0.69 10e9/L 11/23 Unknown COMPLETE BLOOD COUNT 7250155 Eosinophil Abs 0.26 10e9/L Unknown COMPLETE BLOOD COUNT 2349991 RDW-SD 47.4 fL 7 Unknown COMPLETE BLOOD COUNT 8999361 Basophil Abs 0.05 10e9/L 11/23 Unknown COMPREHENSIVE METABOLIC 20792 AST 16 U/L 2016 Unknown COMPREHENSIVE METABOLIC 41685 ALT 12 U/L 2016 Unknown COMPREHENSIVE METABOLIC 30915 BUN 22 mg/dL 2016 Unknown COMPREHENSIVE METABOLIC 70928 ALBUMIN 4.2 g/dL 2016 Unknown COMPREHENSIVE METABOLIC 39752 CHLORIDE 104 mmol/L 12/11 Unknown COMPREHENSIVE METABOLIC 17910 Bili Total 0.7 mg/dL 12/11 Unknown COMPREHENSIVE METABOLIC 85238 ALK PHOS 78 U/L 2016 Unknown COMPREHENSIVE METABOLIC 62216 SODIUM 143 mmol/L 12/11 Unknown COMPREHENSIVE METABOLIC 02799 CREATININE 0.69 mg/dL 11/23 Unknown COMPREHENSIVE METABOLIC 91394 CALCIUM 9.5 mg/dL 2016 Unknown COMPREHENSIVE METABOLIC 06140 POTASSIUM 3.9 mmol/L 12/11 Unknown COMPREHENSIVE METABOLIC 96135 Total Protein 7.1 g/dL Unknown COMPREHENSIVE METABOLIC 49464 Glucose 103 mg/dL 2016 Unknown COMPREHENSIVE METABOLIC 53856 Bicarbonate 30 mmol/L 11/23 Unknown COMPREHENSIVE METABOLIC 39034 AGAP 9 mmol/L 2016 Unknown GFR CALC 7973077 GFR Non Afr Amr >60 mL/min 12/11/2016 Un known GFR CALC 0936015 GFR Afr Amr >60 mL/min 12/11/2016 Unknow n MEAN GLUC 8420281 Calc Mean Gluc 120 mg/dL 12/11/2016 Unkn own LIPID GROUP 34301 Cholesterol 162 mg/dL 12/11/2016 Unkno wn LIPID GROUP 75825 Triglyceride 80 mg/dL 12/11/2016 Unkn own LIPID GROUP 80993 HDL CHOLESTEROL 65 mg/dL 12/11/2016 U nknown LIPID GROUP 54146 Chol/HDL Ratio 2.49 ratio 12/11/2016 U nknown LIPID GROUP 68882 NON-HDL Chol 97 mg/dL 12/11/2016 Unkn own LIPID GROUP 29479 LDL Cholesterol 81 mg/dL 12/11/2016 U nknown FREE T4 63475 T4 Free 1.46 ng/dL 12/11/2016 Unknown THYROID STIMULATING HORMONE 27166 TSH 2.578 uIU/mL 12/11/2016 Unknown GLYCOSYLATED HEMOGLOBIN TEST 32070 Hgb A1c 63031-8 5.8 % 0 12/11/2016 Unknown FREE T4 42999 FREE T4 1.68 NG/DL 05/27/2015 Unknown LIPID GROUP 79673 HDL TEST 67 MG/DL 05/27/2015 Unknown LIPID GROUP 95516 TRIG 92 MG/DL 05/27/2015 Unknown LIPID GROUP 98437 TEST LDL 84 MG/DL 05/27/2015 Unknown LIPID GROUP 27425 CHOL 169 MG/DL 05/27/2015 Unknown LIPID GROUP 12773 RCHOL/HDL 2.52 RATIO 05/27/2015 Unknow n LIPID GROUP 98357 NON-HDL CH 102 MG/DL 05/27/2015 Unknow n GLYCOSYLATED HEMOGLOBIN TEST 19717 A1C HPLC 67375-2 5.9 % 0 05/27/2015 Unknown VITAMIN B 12 68399 VIT B 12 308 PG/ML 05/27/2015 Unknow n GFR CALC 2150627 GFR AA >60 ML/MIN 05/27/2015 Unknown GFR CALC 5464740 GFR NON-AA >60 ML/MIN 05/27/2015 Unknown COMPREHENSIVE METABOLIC 01970 AST 20 U/L 2014 Unknown COMPREHENSIVE METABOLIC 21926 ALT 15 IU/L 2014 Unknown COMPREHENSIVE METABOLIC 20787 BUN 17 MG/DL 2014 Unknown COMPREHENSIVE METABOLIC 48779 ALBUMIN 4.3 GM/DL 2014 Unknown COMPREHENSIVE METABOLIC 72245 CHLORIDE 107 MMOL/L 05/27 Unknown COMPREHENSIVE METABOLIC 25846 BILI TOT 0.9 MG/DL 2014 Unknown COMPREHENSIVE METABOLIC 66553 ALK PHOS 85 U/L 2014 Unknown COMPREHENSIVE METABOLIC 16165 SODIUM 144 MMOL/L 05/27 Unknown COMPREHENSIVE METABOLIC 07414 CREATININE 0.76 MG/DL 11/2014 Unknown COMPREHENSIVE METABOLIC 14704 CALCIUM 9.5 MG/DL 2014 Unknown COMPREHENSIVE METABOLIC 28605 POTASSIUM 4.2 MMOL/L 05/27 Unknown COMPREHENSIVE METABOLIC 02830 PROT TOT 7.1 GM/DL 2014 Unknown COMPREHENSIVE METABOLIC 87905 Glucose 95 MG/DL 2014 Unknown COMPREHENSIVE METABOLIC 41469 BICARB 30 MMOL/L 2014 Unknown COMPREHENSIVE METABOLIC 81787 ANION GAP 7 MEQ/L 2014 Unknown COMPLETE BLOOD COUNT 7727682 WBC 6.5 10e9/L 05/27/20 15 Unknown COMPLETE BLOOD COUNT 8455721 RBC 4.35 10e12/L 2014 Unknown COMPLETE BLOOD COUNT 5065151 HGB 12.4 g/dL 5 Unknown COMPLETE BLOOD COUNT 3009613 HCT DET 39.3 % 5 Unknown COMPLETE BLOOD COUNT 6879965 MCV 90.3 fL 5 Unknown COMPLETE BLOOD COUNT 2750432 MCH 28.5 pg 5 Unknown COMPLETE BLOOD COUNT 9935807 MCHC 31.6 g/dL 5 Unknown COMPLETE BLOOD COUNT 9592705 PLT 245 10e9/L 05/27/20 15 Unknown COMPLETE BLOOD COUNT 9055281 MPV 11.1 fL 5 Unknown COMPLETE BLOOD COUNT 2827961 CRISTI % 53.9 % 5 Unknown COMPLETE BLOOD COUNT 0802798 LY % 30.8 % 5 Unknown COMPLETE BLOOD COUNT 6903084 MON % 11.2 % 5 Unknown COMPLETE BLOOD COUNT 9003167 EOS % 3.2 % 5 Unknown COMPLETE BLOOD COUNT 9094050 BASO % 0.9 % 5 Unknown COMPLETE BLOOD COUNT 5568201 RDW 14.5 % 5 Unknown COMPLETE BLOOD COUNT 3613748 ABS CRISTI 3.50 10e9/L 015 Unknown COMPLETE BLOOD COUNT 1965026 ABS LYMPH 2.00 10e9/L 015 Unknown COMPLETE BLOOD COUNT 1523546 ABS MONO 0.73 10e9/L 015 Unknown COMPLETE BLOOD COUNT 6052896 ABS EOS 0.21 10e9/L 015 Unknown COMPLETE BLOOD COUNT 1482988 ABS BASO 0.06 10e9/L 015 Unknown COMPLETE BLOOD COUNT 7560858 RDW-SD 46.3 fL 5 Unknown THYROID STIMULATING HORMONE 62862 TSH 2.909 uIU/ML 05/27/2015 Unknown IRON 46432 IRON TEST 63 UG/DL 12/15/2014 Unknown COMPLETE BLOOD COUNT 2334618 WBC 6.3 10e9/L 12/16/19 15 Unknown COMPLETE BLOOD COUNT 9124709 RBC 4.37 10e12/L 2014 Unknown COMPLETE BLOOD COUNT 4413673 HGB 12.6 g/dL 5 Unknown COMPLETE BLOOD COUNT 3359436 HCT DET 39.2 % 5 Unknown COMPLETE BLOOD COUNT 9496148 MCV 89.7 fL 5 Unknown COMPLETE BLOOD COUNT 6054983 MCH 28.8 pg 5 Unknown COMPLETE BLOOD COUNT 2953086 MCHC 32.1 g/dL 5 Unknown COMPLETE BLOOD COUNT 1356694 PLT 252 10e9/L 12/16/19 15 Unknown COMPLETE BLOOD COUNT 6936681 MPV 10.8 fL 5 Unknown COMPLETE BLOOD COUNT 9436435 CRISTI % 60.5 % 5 Unknown COMPLETE BLOOD COUNT 3685629 LY % 24.4 % 5 Unknown COMPLETE BLOOD COUNT 3238247 MON % 11.8 % 5 Unknown COMPLETE BLOOD COUNT 5695990 EOS % 2.7 % 5 Unknown COMPLETE BLOOD COUNT 2837087 BASO % 0.6 % 5 Unknown COMPLETE BLOOD COUNT 8227713 RDW 14.0 % 5 Unknown COMPLETE BLOOD COUNT 0092316 ABS CRISTI 3.81 10e9/L 015 Unknown COMPLETE BLOOD COUNT 0597071 ABS LYMPH 1.54 10e9/L 015 Unknown COMPLETE BLOOD COUNT 8509971 ABS MONO 0.74 10e9/L 015 Unknown COMPLETE BLOOD COUNT 2426759 ABS EOS 0.17 10e9/L 015 Unknown COMPLETE BLOOD COUNT 2910030 ABS BASO 0.04 10e9/L 015 Unknown COMPLETE BLOOD COUNT 5137727 RDW-SD 44.6 fL 5 Unknown GFR CALC 9262993 GFR AA >60 ML/MIN 11/26/2014 Unknown GFR CALC 5349978 GFR NON-AA >60 ML/MIN 11/26/2014 Unknown COMPREHENSIVE METABOLIC 31566 AST 16 U/L 2014 Unknown COMPREHENSIVE METABOLIC 43082 ALT 15 IU/L 2014 Unknown COMPREHENSIVE METABOLIC 55732 BUN 21 MG/DL 2014 Unknown COMPREHENSIVE METABOLIC 86282 ALBUMIN 4.4 GM/DL 2014 Unknown COMPREHENSIVE METABOLIC 99366 CHLORIDE 106 MMOL/L 11/26 Unknown COMPREHENSIVE METABOLIC 99876 BILI TOT 0.9 MG/DL 2014 Unknown COMPREHENSIVE METABOLIC 31263 ALK PHOS 83 U/L 2014 Unknown COMPREHENSIVE METABOLIC 98438 SODIUM 141 MMOL/L 11/26 Unknown COMPREHENSIVE METABOLIC 66116 CREATININE 0.68 MG/DL 01/2015 Unknown COMPREHENSIVE METABOLIC 52909 CALCIUM 9.4 MG/DL 2014 Unknown COMPREHENSIVE METABOLIC 32996 POTASSIUM 3.8 MMOL/L 11/26 Unknown COMPREHENSIVE METABOLIC 75531 PROT TOT 7.2 GM/DL 2014 Unknown COMPREHENSIVE METABOLIC 60843 Glucose 100 MG/DL 2014 Unknown COMPREHENSIVE METABOLIC 46981 BICARB 29 MMOL/L 2014 Unknown COMPREHENSIVE METABOLIC 81376 ANION GAP 6 MEQ/L 2014 Unknown LIPID GROUP 80829 HDL TEST 72 MG/DL 11/26/2014 Unknown LIPID GROUP 97959 TRIG 101 MG/DL 11/26/2014 Unknown LIPID GROUP 28159 TEST LDL 82 MG/DL 11/26/2014 Unknown LIPID GROUP 62881 CHOL 174 MG/DL 11/26/2014 Unknown LIPID GROUP 50337 RCHOL/HDL 2.42 RATIO 11/26/2014 Unknow n LIPID GROUP 45231 NON-HDL CH 102 MG/DL 11/26/2014 Unknow n GFR CALC 0453216 GFR AA >60 ML/MIN 08/14/2014 Unknown GFR CALC 3233917 GFR NON-AA >60 ML/MIN 08/14/2014 Unknown THYROID STIMULATING HORMONE 47163 TSH 2.261 uIU/ML 08/14/2014 Unknown COMPLETE BLOOD COUNT 9370461 WBC 5.8 10e9/L 08/14/20 14 Unknown COMPLETE BLOOD COUNT 3017851 RBC 4.33 10e12/L 2013 Unknown COMPLETE BLOOD COUNT 8440782 HGB 12.5 g/dL 4 Unknown COMPLETE BLOOD COUNT 0701250 HCT DET 39.2 % 4 Unknown COMPLETE BLOOD COUNT 2183627 MCV 90.5 fL 4 Unknown COMPLETE BLOOD COUNT 9258568 MCH 28.9 pg 4 Unknown COMPLETE BLOOD COUNT 3868853 MCHC 31.9 g/dL 4 Unknown COMPLETE BLOOD COUNT 6152406 PLT 260 10e9/L 08/14/20 14 Unknown COMPLETE BLOOD COUNT 1160487 MPV 10.9 fL 4 Unknown COMPLETE BLOOD COUNT 6351906 CRISTI % 52.9 % 4 Unknown COMPLETE BLOOD COUNT 6186038 LY % 31.0 % 4 Unknown COMPLETE BLOOD COUNT 1444208 MON % 11.3 % 4 Unknown COMPLETE BLOOD COUNT 2317896 EOS % 3.6 % 4 Unknown COMPLETE BLOOD COUNT 7084776 BASO % 1.2 % 4 Unknown COMPLETE BLOOD COUNT 3504613 RDW 13.9 % 4 Unknown COMPLETE BLOOD COUNT 7899687 ABS CRISTI 3.07 10e9/L 014 Unknown COMPLETE BLOOD COUNT 3528368 ABS LYMPH 1.80 10e9/L 014 Unknown COMPLETE BLOOD COUNT 2290000 ABS MONO 0.66 10e9/L 014 Unknown COMPLETE BLOOD COUNT 4522394 ABS EOS 0.21 10e9/L 014 Unknown COMPLETE BLOOD COUNT 8665811 ABS BASO 0.07 10e9/L 014 Unknown COMPLETE BLOOD COUNT 9726509 RDW-SD 44.8 fL 4 Unknown COMPREHENSIVE METABOLIC 11817 AST 15 U/L 2013 Unknown COMPREHENSIVE METABOLIC 43984 ALT 13 IU/L 2013 Unknown COMPREHENSIVE METABOLIC 45469 BUN 18 MG/DL 2013 Unknown COMPREHENSIVE METABOLIC 70662 ALBUMIN 4.4 GM/DL 2013 Unknown COMPREHENSIVE METABOLIC 48295 CHLORIDE 105 MMOL/L 08/14 Unknown COMPREHENSIVE METABOLIC 04439 BILI TOT 1.0 MG/DL 2013 Unknown COMPREHENSIVE METABOLIC 15974 ALK PHOS 88 U/L 2013 Unknown COMPREHENSIVE METABOLIC 18354 SODIUM 143 MMOL/L 08/14 Unknown COMPREHENSIVE METABOLIC 73906 CREATININE 0.70 MG/DL 07/26 Unknown COMPREHENSIVE METABOLIC 82743 CALCIUM 9.6 MG/DL 2013 Unknown COMPREHENSIVE METABOLIC 84777 POTASSIUM 3.9 MMOL/L 08/14 Unknown COMPREHENSIVE METABOLIC 84561 PROT TOT 7.0 GM/DL 2013 Unknown COMPREHENSIVE METABOLIC 13670 Glucose 100 MG/DL 2013 Unknown COMPREHENSIVE METABOLIC 34247 BICARB 31 MMOL/L 2013 Unknown COMPREHENSIVE METABOLIC 69031 ANION GAP 7 MEQ/L 2013 Unknown FREE T4 97966 FREE T4 1.59 NG/DL 08/14/2014 Unknown LIPID GROUP 90570 HDL TEST 66 MG/DL 08/14/2014 Unknown LIPID GROUP 92388 TRIG 106 MG/DL 08/14/2014 Unknown LIPID GROUP 81644 TEST LDL 152 MG/DL 08/14/2014 Unknown LIPID GROUP 51785 CHOL 239 MG/DL 08/14/2014 Unknown LIPID GROUP 25810 RCHOL/HDL 3.62 RATIO 08/14/2014 Unknow n LIPID GROUP 45472 NON-HDL CH 173 MG/DL 08/14/2014 Unknow n COMPREHENSIVE METABOLIC 67580 AST 16 U/L 2013 Unknown COMPREHENSIVE METABOLIC 18165 ALT 13 IU/L 2013 Unknown COMPREHENSIVE METABOLIC 40261 BUN 20 MG/DL 2013 Unknown COMPREHENSIVE METABOLIC 34451 ALBUMIN 4.4 GM/DL 2013 Unknown COMPREHENSIVE METABOLIC 61511 CHLORIDE 104 MMOL/L 02/04 Unknown COMPREHENSIVE METABOLIC 22899 BILI TOT 0.8 MG/DL 2013 Unknown COMPREHENSIVE METABOLIC 24156 ALK PHOS 79 U/L 2013 Unknown COMPREHENSIVE METABOLIC 37508 SODIUM 141 MMOL/L 02/04 Unknown COMPREHENSIVE METABOLIC 18095 CREATININE 0.73 MG/DL 01/22 Unknown COMPREHENSIVE METABOLIC 60935 CALCIUM 9.6 MG/DL 2013 Unknown COMPREHENSIVE METABOLIC 71316 POTASSIUM 4.0 MMOL/L 02/04 Unknown COMPREHENSIVE METABOLIC 71915 PROT TOT 7.2 GM/DL 2013 Unknown COMPREHENSIVE METABOLIC 83367 Glucose 96 MG/DL 2013 Unknown COMPREHENSIVE METABOLIC 28328 BICARB 31 MMOL/L 2013 Unknown COMPREHENSIVE METABOLIC 79845 ANION GAP 6 MEQ/L 2013 Unknown GFR CALC 7606852 GFR AA >60 ML/MIN 02/04/2014 Unknown GFR CALC 0383257 GFR NON-AA >60 ML/MIN 02/04/2014 Unknown FREE T4 69654 FREE T4 1.59 NG/DL 02/04/2014 Unknown COMPLETE BLOOD COUNT 5025836 WBC 5.9 10e9/L 02/05/20 14 Unknown COMPLETE BLOOD COUNT 6288313 RBC 4.37 10e12/L 2013 Unknown COMPLETE BLOOD COUNT [id number] HGB 12.6 g/dL 4 Unknown COMPLETE BLOOD COUNT [id number] HCT DET 39.0 % 4 Unknown COMPLETE BLOOD COUNT [id number] MCV 89.2 fL 4 Unknown COMPLETE BLOOD COUNT [id number] MCH 28.8 pg 4 Unknown COMPLETE BLOOD COUNT [id number] MCHC 32.3 g/dL 4 Unknown COMPLETE BLOOD COUNT [id number] PLT 265 10e9/L 02/05/20 14 Unknown COMPLETE BLOOD COUNT [id number] MPV 10.8 fL 4 Unknown COMPLETE BLOOD COUNT [id number] CRISTI % 55.5 % 4 Unknown COMPLETE BLOOD COUNT [id number] LY % 30.8 % 4 Unknown COMPLETE BLOOD COUNT [id number] MON % 10.0 % 4 Unknown COMPLETE BLOOD COUNT [id number] EOS % 2.7 % 4 Unknown COMPLETE BLOOD COUNT [id number] BASO % 1.0 % 4 Unknown COMPLETE BLOOD COUNT [id number] RDW 14.2 % 4 Unknown COMPLETE BLOOD COUNT [id number] ABS CRISTI 3.27 10e9/L 014 Unknown COMPLETE BLOOD COUNT [id number] ABS LYMPH 1.82 10e9/L 014 Unknown COMPLETE BLOOD COUNT [id number] ABS MONO 0.59 10e9/L 014 Unknown COMPLETE BLOOD COUNT [id number] ABS EOS 0.16 10e9/L 014 Unknown COMPLETE BLOOD COUNT [id number] ABS BASO 0.06 10e9/L 014 Unknown COMPLETE BLOOD COUNT [id number] RDW-SD 45.2 fL 4 Unknown LIPID GROUP 66171 HDL TEST 69 MG/DL 02/04/2014 Unknown LIPID GROUP 83601 TRIG 121 MG/DL 02/04/2014 Unknown LIPID GROUP 25646 TEST LDL 144 MG/DL 02/04/2014 Unknown LIPID GROUP 48003 CHOL 237 MG/DL 02/04/2014 Unknown LIPID GROUP 26895 RCHOL/HDL 3.43 RATIO 02/04/2014 Unknow n THYROID STIMULATING HORMONE 17823 TSH 2.310 uIU/ML 02/04/2014 Unknown THYROID STIMULATING HORMONE 82708 TSH 2.429 uIU/ML 03/18/2012 Unknown COMPREHENSIVE METABOLIC 36150 AST 17 U/L 2011 Unknown COMPREHENSIVE METABOLIC 69981 ALT 15 IU/L 2011 Unknown COMPREHENSIVE METABOLIC 27495 BUN 17 MG/DL 2011 Unknown COMPREHENSIVE METABOLIC 84813 ALBUMIN 4.1 GM/DL 2011 Unknown COMPREHENSIVE METABOLIC 62050 CHLORIDE 108 MMOL/L 03/18 Unknown COMPREHENSIVE METABOLIC 57220 BILI TOT 0.7 MG/DL 2011 Unknown COMPREHENSIVE METABOLIC 10138 ALK PHOS 79 U/L 2011 Unknown COMPREHENSIVE METABOLIC 92422 SODIUM 144 MMOL/L 03/18 Unknown COMPREHENSIVE METABOLIC 81338 CREATININE 0.68 MG/DL 02/23 Unknown COMPREHENSIVE METABOLIC 63327 CALCIUM 9.0 MG/DL 2011 Unknown COMPREHENSIVE METABOLIC 27622 POTASSIUM 3.7 MMOL/L 03/18 Unknown COMPREHENSIVE METABOLIC 13541 PROT TOT 6.6 GM/DL 2011 Unknown COMPREHENSIVE METABOLIC 28617 Glucose 99 MG/DL 2011 Unknown COMPREHENSIVE METABOLIC 19739 BICARB 28 MMOL/L 2011 Unknown COMPREHENSIVE METABOLIC 86701 ANION GAP 8 MEQ/L 2011 Unknown LIPID GROUP 31529 HDL TEST 65 MG/DL 03/18/2012 Unknown LIPID GROUP 36186 TRIG 86 MG/DL 03/18/2012 Unknown LIPID GROUP 89907 TEST LDL 153 MG/DL 03/18/2012 Unknown LIPID GROUP 83590 CHOL 235 MG/DL 03/18/2012 Unknown LIPID GROUP 66441 RCHOL/HDL 3.62 RATIO 03/18/2012 Unknow n GFR CALC [id number] GFR AA >60 ML/MIN 03/18/2012 Unknown GFR CALC 1322935 GFR NON-AA >60 ML/MIN 03/18/2012 Unknown COMPLETE BLOOD COUNT 88503 WBC 5.1 10e9/L 03/18/20 12 Unknown COMPLETE BLOOD COUNT 80034 RBC 4.32 10e12/L 2011 Unknown COMPLETE BLOOD COUNT 69746 HGB 12.4 g/dL 2 Unknown COMPLETE BLOOD COUNT 58665 HCT DET 38.4 % 2 Unknown COMPLETE BLOOD COUNT 21358 MCV 88.9 fL 2 Unknown COMPLETE BLOOD COUNT 18463 MCH 28.7 pg 2 Unknown COMPLETE BLOOD COUNT 17067 MCHC 32.3 g/dL 2 Unknown COMPLETE BLOOD COUNT 81274 PLT 245 10e9/L 03/18/20 12 Unknown COMPLETE BLOOD COUNT 39318 MPV 10.7 fL 2 Unknown COMPLETE BLOOD COUNT 55096 CRISTI % 52.9 % 2 Unknown COMPLETE BLOOD COUNT 66443 LY % 31.5 % 2 Unknown COMPLETE BLOOD COUNT 56805 MON % 12.3 % 2 Unknown COMPLETE BLOOD COUNT 59895 EOS % 2.9 % 2 Unknown COMPLETE BLOOD COUNT 21995 BASO % 0.4 % 2 Unknown COMPLETE BLOOD COUNT 82773 RDW 13.9 % 2 Unknown COMPLETE BLOOD COUNT 08172 ABS CRISTI 2.70 10e9/L 012 Unknown COMPLETE BLOOD COUNT 01394 ABS LYMPH 1.61 10e9/L 012 Unknown COMPLETE BLOOD COUNT 36881 ABS MONO 0.63 10e9/L 012 Unknown COMPLETE BLOOD COUNT 55365 ABS EOS 0.15 10e9/L 012 Unknown COMPLETE BLOOD COUNT 41771 ABS BASO 0.02 10e9/L 012 Unknown COMPLETE BLOOD COUNT 33464 RDW-SD 44.5 fL 2 Unknown FREE T4 28049 FREE T4 1.50 NG/DL 03/18/2012 Unknown LIPID GROUP 11835 HDL TEST 61 MG/DL 07/13/2011 Unknown LIPID GROUP 76526 TRIG 158 MG/DL 07/13/2011 Unknown LIPID GROUP 06974 TEST LDL 131 MG/DL 07/13/2011 Unknown LIPID GROUP 14753 CHOL 224 MG/DL 07/13/2011 Unknown LIPID GROUP 17898 RCHOL/HDL 3.67 RATIO 07/13/2011 Unknow n COMPREHENSIVE METABOLIC 01904 AST 19 U/L 2010 Unknown COMPREHENSIVE METABOLIC 77575 ALT 17 IU/L 2010 Unknown COMPREHENSIVE METABOLIC 72575 BUN 14 MG/DL 2010 Unknown COMPREHENSIVE METABOLIC 71546 ALBUMIN 4.2 GM/DL 2010 Unknown COMPREHENSIVE METABOLIC 69345 CHLORIDE 105 MMOL/L 07/13 Unknown COMPREHENSIVE METABOLIC 44039 BILI TOT 0.9 MG/DL 2010 Unknown COMPREHENSIVE METABOLIC 69644 ALK PHOS 71 U/L 2010 Unknown COMPREHENSIVE METABOLIC 99892 SODIUM 141 MMOL/L 07/13 Unknown COMPREHENSIVE METABOLIC 66908 CREATININE 0.68 MG/DL 06/25 Unknown COMPREHENSIVE METABOLIC 01638 CALCIUM 9.3 MG/DL 2010 Unknown COMPREHENSIVE METABOLIC 24718 POTASSIUM 3.8 MMOL/L 07/13 Unknown COMPREHENSIVE METABOLIC 70427 PROT TOT 6.5 GM/DL 2010 Unknown COMPREHENSIVE METABOLIC 02648 Glucose 94 MG/DL 2010 Unknown COMPREHENSIVE METABOLIC 53463 BICARB 28 MMOL/L 2010 Unknown COMPREHENSIVE METABOLIC 44376 ANION GAP 8 MEQ/L 2010 Unknown COMPLETE BLOOD COUNT 88612 WBC 5.4 10e9/L 07/13/20 11 Unknown COMPLETE BLOOD COUNT 98093 RBC 4.20 10e12/L 2010 Unknown COMPLETE BLOOD COUNT 04145 HGB 12.4 g/dL 1 Unknown COMPLETE BLOOD COUNT 56325 HCT DET 37.6 % 1 Unknown COMPLETE BLOOD COUNT 86298 MCV 89.5 fL 1 Unknown COMPLETE BLOOD COUNT 41516 MCH 29.5 pg 1 Unknown COMPLETE BLOOD COUNT 40475 MCHC 33.0 g/dL 1 Unknown COMPLETE BLOOD COUNT 83454 PLT 273 10e9/L 07/13/20 11 Unknown COMPLETE BLOOD COUNT 01180 MPV 10.7 fL 1 Unknown COMPLETE BLOOD COUNT 69668 CRISTI % 49.9 % 1 Unknown COMPLETE BLOOD COUNT 79544 LY % 35.9 % 1 Unknown COMPLETE BLOOD COUNT 10835 MON % 10.4 % 1 Unknown COMPLETE BLOOD COUNT 43131 EOS % 2.9 % 1 Unknown COMPLETE BLOOD COUNT 39194 BASO % 0.9 % 1 Unknown COMPLETE BLOOD COUNT 72323 RDW 13.8 % 1 Unknown COMPLETE BLOOD COUNT 54728 ABS CRISTI 2.69 10e9/L 011 Unknown COMPLETE BLOOD COUNT 22604 ABS LYMPH 1.94 10e9/L 011 Unknown COMPLETE BLOOD COUNT 49316 ABS MONO 0.56 10e9/L 011 Unknown COMPLETE BLOOD COUNT 87057 ABS EOS 0.16 10e9/L 011 Unknown COMPLETE BLOOD COUNT 85979 ABS BASO 0.05 10e9/L 011 Unknown COMPLETE BLOOD COUNT 22498 RDW-SD 44.4 fL 1 Unknown GFR CALC 7691784 GFR AA >60 ML/MIN 07/13/2011 Unknown GFR CALC 6915904 GFR NON-AA >60 ML/MIN 07/13/2011 Unknown FREE T4 67921 FREE T4 1.36 NG/DL 07/13/2011 Unknown THYROID STIMULATING HORMONE 46351 TSH 4.261 uIU/ML 07/13/2011 Unknown GFR CALC 7192167 GFR AA >60 ML/MIN 03/13/2011 Unknown GFR CALC 1938269 GFR NON-AA >60 ML/MIN 03/13/2011 Unknown LIPID GROUP 73984 HDL TEST 60 MG/DL 03/13/2011 Unknown LIPID GROUP 19249 TRIG 140 MG/DL 03/13/2011 Unknown LIPID GROUP 95932 TEST LDL 122 MG/DL 03/13/2011 Unknown LIPID GROUP 79549 CHOL 210 MG/DL 03/13/2011 Unknown LIPID GROUP 34526 RCHOL/HDL 3.50 RATIO 03/13/2011 Unknow n FREE T4 22158 FREE T4 1.36 NG/DL 03/13/2011 Unknown THYROID STIMULATING HORMONE 21779 TSH 7.688 uIU/ML 03/13/2011 Unknown COMPREHENSIVE METABOLIC 23263 AST 17 U/L 2010 Unknown COMPREHENSIVE METABOLIC 78329 ALT 12 IU/L 2010 Unknown COMPREHENSIVE METABOLIC 04629 BUN 19 MG/DL 2010 Unknown COMPREHENSIVE METABOLIC 60137 ALBUMIN 4.3 GM/DL 2010 Unknown COMPREHENSIVE METABOLIC 84235 CHLORIDE 105 MMOL/L 03/13 Unknown COMPREHENSIVE METABOLIC 85177 BILI TOT 0.6 MG/DL 2010 Unknown COMPREHENSIVE METABOLIC 40216 ALK PHOS 68 U/L 2010 Unknown COMPREHENSIVE METABOLIC 03645 SODIUM 139 MMOL/L 03/13 Unknown COMPREHENSIVE METABOLIC 15019 CREATININE 0.77 MG/DL 02/23 Unknown COMPREHENSIVE METABOLIC 47931 CALCIUM 9.2 MG/DL 2010 Unknown COMPREHENSIVE METABOLIC 56316 POTASSIUM 3.8 MMOL/L 03/13 Unknown COMPREHENSIVE METABOLIC 57091 PROT TOT 6.9 GM/DL 2010 Unknown COMPREHENSIVE METABOLIC 47069 Glucose 97 MG/DL 2010 Unknown COMPREHENSIVE METABOLIC 89691 BICARB 25 MMOL/L 2010 Unknown COMPREHENSIVE METABOLIC 94535 ANION GAP 9 MEQ/L 2010 Unknown FREE T4 01339 FREE T4 1.32 NG/DL 12/16/2010 Unknown COMPLETE BLOOD COUNT 76394 WBC 5.6 10e9/L 12/17/19 11 Unknown COMPLETE BLOOD COUNT 26609 RBC 4.38 10e12/L 2010 Unknown COMPLETE BLOOD COUNT 05581 HGB 12.5 g/dL 1 Unknown COMPLETE BLOOD COUNT 65299 HCT DET 38.7 % 1 Unknown COMPLETE BLOOD COUNT 52171 MCV 88.4 fL 1 Unknown COMPLETE BLOOD COUNT 31952 MCH 28.5 pg 1 Unknown COMPLETE BLOOD COUNT 18655 MCHC 32.3 g/dL 1 Unknown COMPLETE BLOOD COUNT 17590 PLT 249 10e9/L 12/17/19 11 Unknown COMPLETE BLOOD COUNT 19717 MPV 10.5 fL 1 Unknown COMPLETE BLOOD COUNT 55980 CRISTI % 52.8 % 1 Unknown COMPLETE BLOOD COUNT 88238 LY % 33.3 % 1 Unknown COMPLETE BLOOD COUNT 11435 MON % 9.8 % 1 Unknown COMPLETE BLOOD COUNT 88504 EOS % 3.4 % 1 Unknown COMPLETE BLOOD COUNT 75196 BASO % 0.7 % 1 Unknown COMPLETE BLOOD COUNT 56458 RDW 14.2 % 1 Unknown COMPLETE BLOOD COUNT 35694 ABS CRISTI 2.96 10e9/L 011 Unknown COMPLETE BLOOD COUNT 93984 ABS LYMPH 1.86 10e9/L 011 Unknown COMPLETE BLOOD COUNT 37946 ABS MONO 0.55 10e9/L 011 Unknown COMPLETE BLOOD COUNT 89823 ABS EOS 0.19 10e9/L 011 Unknown COMPLETE BLOOD COUNT 28861 ABS BASO 0.04 10e9/L 011 Unknown COMPLETE BLOOD COUNT 15544 RDW-SD 45.1 fL 1 Unknown GFR CALC 9058675 GFR AA >60 ML/MIN 12/16/2010 Unknown GFR CALC 1278946 GFR NON-AA >60 ML/MIN 12/16/2010 Unknown THYROID STIMULATING HORMONE 57201 TSH 7.082 uIU/ML 12/16/2010 Unknown COMPREHENSIVE METABOLIC 85779 AST 21 U/L 2010 Unknown COMPREHENSIVE METABOLIC 59184 ALT 18 IU/L 2010 Unknown COMPREHENSIVE METABOLIC 58486 BUN 22 MG/DL 2010 Unknown COMPREHENSIVE METABOLIC 62043 ALBUMIN 4.6 GM/DL 2010 Unknown COMPREHENSIVE METABOLIC 46022 CHLORIDE 102 MMOL/L 12/16 Unknown COMPREHENSIVE METABOLIC 94085 BILI TOT 0.6 MG/DL 2010 Unknown COMPREHENSIVE METABOLIC 88642 ALK PHOS 72 U/L 2010 Unknown COMPREHENSIVE METABOLIC 46797 SODIUM 140 MMOL/L 12/16 Unknown COMPREHENSIVE METABOLIC 58842 CREATININE 0.73 MG/DL 11/23 Unknown COMPREHENSIVE METABOLIC 78160 CALCIUM 9.4 MG/DL 2010 Unknown COMPREHENSIVE METABOLIC 09980 POTASSIUM 4.2 MMOL/L 12/16 Unknown COMPREHENSIVE METABOLIC 62386 PROT TOT 7.1 GM/DL 2010 Unknown COMPREHENSIVE METABOLIC 98186 Glucose 88 MG/DL 2010 Unknown COMPREHENSIVE METABOLIC 41517 BICARB 30 MMOL/L 2010 Unknown COMPREHENSIVE METABOLIC 20800 ANION GAP 8 MEQ/L 2010 Unknown LIPID GROUP 41921 HDL TEST 66 MG/DL 12/16/2010 Unknown LIPID GROUP 74354 TRIG 154 MG/DL 12/16/2010 Unknown LIPID GROUP 75608 TEST LDL 128 MG/DL 12/16/2010 Unknown LIPID GROUP 80219 CHOL 225 MG/DL 12/16/2010 Unknown LIPID GROUP 72520 RCHOL/HDL 3.41 RATIO 12/16/2010 Unknow n Procedures Procedure Codes Date ROUTINE VENIPUNCTURE CPT-4: 86906 02/28/2022 RML ASSAY OF FREE THYROXINE CPT-4: 15079 02/28/2022 RML ASSAY THYROID STIM HORMONE CPT-4: 57362 RML COMPREHEN METABOLIC PANEL CPT-4: 55501 02/28/2022 RML COMPLETE CBC W/AUTO DIFF WBC CPT-4: 11073 022 RML LIPID PANEL CPT-4: 96116 02/28/2022 RML A1C HPLC CPT-4: 35604 02/28/2022 SARSCOV & INF VIR A&B AG IA CPT-4: 80076 08/09/2021 CLEAR OUTER EAR CANAL CPT-4: 51685 08/09/2021 ROUTINE VENIPUNCTURE CPT-4: 81896 07/20/2021 RML ASSAY OF FREE THYROXINE CPT-4: 39148 07/20/2021 RML ASSAY THYROID STIM HORMONE CPT-4: 40088 RML COMPREHEN METABOLIC PANEL CPT-4: 87237 07/20/2021 RML COMPLETE CBC W/AUTO DIFF WBC CPT-4: 88780 021 RML A1C HPLC CPT-4: 95489 07/20/2021 DESTRUCT B9 LESION 1-14 CPT-4: 45074 05/12/2021 THER/PROPH/DIAG INJ SC/IM CPT-4: 20993 03/08/2021 TRIAMCINOLONE ACET INJ NOS CPT-4: J3301 03/08/2021 ROUTINE VENIPUNCTURE CPT-4: 68561 01/31/2021 RML COMPREHEN METABOLIC PANEL CPT-4: 99586 01/31/2021 RML COMPLETE CBC W/AUTO DIFF WBC CPT-4: 67947 021 RML LIPID PANEL CPT-4: 94575 01/31/2021 RML ASSAY OF FREE THYROXINE CPT-4: 38833 01/31/2021 RML ASSAY THYROID STIM HORMONE CPT-4: 69956 1 RML A1C HPLC CPT-4: 34356 01/31/2021 EXC TR-EXT B9+JOSE G 0.5 CM< CPT-4: 33091 05/19/2020 PPPS, subseq visit CPT-4: G0439 05/11/2020 ROUTINE VENIPUNCTURE CPT-4: 63692 05/05/2020 RML ASSAY OF FREE THYROXINE CPT-4: 92096 05/05/2020 RML ASSAY THYROID STIM HORMONE CPT-4: 48844 0 RML COMPREHEN METABOLIC PANEL CPT-4: 02089 05/05/2020 RML COMPLETE CBC W/AUTO DIFF WBC CPT-4: 29137 020 RML LIPID PANEL CPT-4: 77731 05/05/2020 RML A1C HPLC CPT-4: 10858 05/05/2020 THER/PROPH/DIAG INJ SC/IM CPT-4: 93211 01/28/2020 TRIAMCINOLONE ACET INJ NOS CPT-4: J3301 01/28/2020 ROUTINE VENIPUNCTURE CPT-4: 81760 01/05/2020 RML ASSAY OF FREE THYROXINE CPT-4: 72105 01/05/2020 RML ASSAY THYROID STIM HORMONE CPT-4: 26941 0 RML COMPREHEN METABOLIC PANEL CPT-4: 04691 01/05/2020 RML COMPLETE CBC W/AUTO DIFF WBC CPT-4: 27727 020 ASSAY OF AMYLASE CPT-4: 46049 01/05/2020 ASSAY OF LIPASE CPT-4: 66750 01/05/2020 ROUTINE VENIPUNCTURE CPT-4: 40181 12/05/2019 RML COMPREHEN METABOLIC PANEL CPT-4: 78836 12/05/2019 ROUTINE VENIPUNCTURE CPT-4: 01554 11/05/2019 RML COMPREHEN METABOLIC PANEL CPT-4: 03384 11/05/2019 URINALYSIS NONAUTO W/O SCOPE CPT-4: 56745 10/23/2019 URINE CULTURE/ COLONY COUNT CPT-4: 97418 10/23/2019 ROUTINE VENIPUNCTURE CPT-4: 22385 10/21/2019 RML ASSAY OF FREE THYROXINE CPT-4: 30740 10/21/2019 RML ASSAY THYROID STIM HORMONE CPT-4: 25517 0 RML COMPREHEN METABOLIC PANEL CPT-4: 65336 10/21/2019 RML COMPLETE CBC W/AUTO DIFF WBC CPT-4: 48771 020 RML LIPID PANEL CPT-4: 40178 10/21/2019 HYDRATION IV INFUSION INIT CPT-4: 57390 10/20/2019 Removal impacted cerumen using irrigation/lavage, unilateral CPT-4: 17270 10/20/2019 ROUTINE VENIPUNCTURE CPT-4: 44857 04/04/2019 RML COMPLETE CBC W/AUTO DIFF WBC CPT-4: 69795 019 RML COMPREHEN METABOLIC PANEL CPT-4: 49904 04/04/2019 RML ASSAY THYROID STIM HORMONE CPT-4: 85455 9 RML ASSAY OF FREE THYROXINE CPT-4: 70992 04/04/2019 RML LIPID PANEL CPT-4: 43248 04/04/2019 PPPS, subseq visit CPT-4: G0439 11/26/2018 ROUTINE VENIPUNCTURE CPT-4: 73796 10/07/2018 RML ASSAY THYROID STIM HORMONE CPT-4: 52360 9 RML ASSAY OF FREE THYROXINE CPT-4: 35548 10/07/2018 RML COMPREHEN METABOLIC PANEL CPT-4: 67943 10/07/2018 RML COMPLETE CBC W/AUTO DIFF WBC CPT-4: 88902 019 RML LIPID PANEL CPT-4: 63771 10/07/2018 RML A1C HPLC CPT-4: 64129 10/07/2018 CERUM REMOVAL CPT-4: 88229 06/25/2018 THER/PROPH/DIAG INJ SC/IM CPT-4: 64020 05/03/2018 TRIAMCINOLONE ACET INJ NOS CPT-4: J3301 05/03/2018 Removal impacted cerumen using irrigation/lavage, unilateral CPT-4: 16961 02/19/2018 ROUTINE VENIPUNCTURE CPT-4: 04540 02/13/2018 RML ASSAY OF FREE THYROXINE CPT-4: 32529 02/13/2018 RML ASSAY THYROID STIM HORMONE CPT-4: 05590 8 RML COMPREHEN METABOLIC PANEL CPT-4: 51201 02/13/2018 RML COMPLETE CBC W/AUTO DIFF WBC CPT-4: 98389 018 ROUTINE VENIPUNCTURE CPT-4: 82508 10/15/2017 RML ASSAY OF FREE THYROXINE CPT-4: 63134 10/15/2017 RML ASSAY THYROID STIM HORMONE CPT-4: 61314 8 RML COMPREHEN METABOLIC PANEL CPT-4: 40728 10/15/2017 RML COMPLETE CBC W/AUTO DIFF WBC CPT-4: 07679 018 RML LIPID PANEL CPT-4: 16175 10/15/2017 VITAMIN B-12 CPT-4: 54144 10/15/2017 CERUM REMOVAL CPT-4: 91466 07/24/2017 ROUTINE VENIPUNCTURE CPT-4: 67343 03/30/2017 VITAMIN B-12 CPT-4: 80541 03/30/2017 ROUTINE VENIPUNCTURE CPT-4: 16272 12/18/2016 VITAMIN B-12 CPT-4: 27514 12/18/2016 PPPS, subseq visit CPT-4: G0439 12/18/2016 ROUTINE VENIPUNCTURE CPT-4: 17009 12/11/2016 RML ASSAY OF FREE THYROXINE CPT-4: 02329 12/11/2016 RML ASSAY THYROID STIM HORMONE CPT-4: 73626 7 RML COMPREHEN METABOLIC PANEL CPT-4: 63408 12/11/2016 RML COMPLETE CBC W/AUTO DIFF WBC CPT-4: 61765 017 RML LIPID PANEL CPT-4: 51102 12/11/2016 RML A1C HPLC CPT-4: 95825 12/11/2016 URINALYSIS NONAUTO W/O SCOPE CPT-4: 58091 02/07/2016 ROUTINE VENIPUNCTURE CPT-4: 35759 05/27/2015 RML ASSAY OF FREE THYROXINE CPT-4: 87638 05/27/2015 RML ASSAY THYROID STIM HORMONE CPT-4: 24007 5 RML COMPREHEN METABOLIC PANEL CPT-4: 62241 05/27/2015 RML COMPLETE CBC W/AUTO DIFF WBC CPT-4: 88489 015 RML LIPID PANEL CPT-4: 70784 05/27/2015 VITAMIN B-12 CPT-4: 22447 05/27/2015 RML A1C HPLC CPT-4: 35937 05/27/2015 PNEUMOCOCCAL VACC 13 LEN IM CPT-4: 41584 05/26/2015 ADMIN PNEUMOCOCCAL VACCINE CPT-4: G0009 05/26/2015 CUR TOBACCO NON-USER CPT-4: G8457 05/26/2015 OCCULT BLOOD FECES CPT-4: 70727 02/19/2015 OCCULT BLOOD FECES CPT-4: 36455 01/20/2015 ROUTINE VENIPUNCTURE CPT-4: 36555 12/15/2014 ASSAY OF IRON CPT-4: 26000 12/15/2014 RML COMPLETE CBC W/AUTO DIFF WBC CPT-4: 84163 015 CERUM REMOVAL CPT-4: 45198 11/30/2014 PRESCRIP TRANSMIT VIA ERX SY CPT-4: G8553 11/30/2014 ROUTINE VENIPUNCTURE CPT-4: 39629 11/26/2014 RML COMPREHEN METABOLIC PANEL CPT-4: 43326 11/26/2014 RML LIPID PANEL CPT-4: 18105 11/26/2014 ROUTINE VENIPUNCTURE CPT-4: 53035 08/14/2014 RML ASSAY OF FREE THYROXINE CPT-4: 26975 08/14/2014 RML ASSAY THYROID STIM HORMONE CPT-4: 26347 4 RML COMPREHEN METABOLIC PANEL CPT-4: 58677 08/14/2014 RML COMPLETE CBC W/AUTO DIFF WBC CPT-4: 40660 014 RML LIPID PANEL CPT-4: 75412 08/14/2014 PRESCRIP TRANSMIT VIA ERX SY CPT-4: G8553 07/23/2014 PRESCRIP TRANSMIT VIA ERX SY CPT-4: G8553 03/09/2014 PRESCRIP TRANSMIT VIA ERX SY CPT-4: G8553 02/05/2014 ROUTINE VENIPUNCTURE CPT-4: 98878 02/04/2014 RML ASSAY OF FREE THYROXINE CPT-4: 29214 02/04/2014 RML ASSAY THYROID STIM HORMONE CPT-4: 52524 4 RML COMPREHEN METABOLIC PANEL CPT-4: 56973 02/04/2014 RML COMPLETE CBC W/AUTO DIFF WBC CPT-4: 31616 014 RML LIPID PANEL CPT-4: 23629 02/04/2014 DRAIN/INJECT JOINT/BURSA CPT-4: 10820 04/07/2013 METHYLPREDNISOLONE 40 MG INJ CPT-4: J1030 04/07/2013 TRIAMCINOLONE ACET INJ NOS CPT-4: J3301 04/07/2013 PRESCRIP TRANSMIT VIA ERX SY CPT-4: G8553 04/07/2013 DRAIN/INJECT JOINT/BURSA CPT-4: 46157 10/09/2012 METHYLPREDNISOLONE 40 MG INJ CPT-4: J1030 10/09/2012 TRIAMCINOLONE ACET INJ NOS CPT-4: J3301 10/09/2012 PRESCRIP TRANSMIT VIA ERX SY CPT-4: G8553 03/28/2012 ROUTINE VENIPUNCTURE CPT-4: 20845 03/18/2012 RML ASSAY OF FREE THYROXINE CPT-4: 11695 03/18/2012 RML ASSAY THYROID STIM HORMONE CPT-4: 98289 2 RML COMPREHEN METABOLIC PANEL CPT-4: 62069 03/18/2012 RML COMPLETE CBC W/AUTO DIFF WBC CPT-4: 46015 012 RML LIPID PANEL CPT-4: 65618 03/18/2012 CERUM REMOVAL CPT-4: 55043 2012 OCCULT BLOOD FECES CPT-4: 96093 09/27/2011 CA SCREEN;PELVIC/BREAST EXAM CPT-4: G0101 09/27/2011 OBTAINING SCREEN PAP SMEAR CPT-4: Q0091 09/27/2011 CUR TOBACCO NON-USER CPT-4: G8457 09/13/2011 PRESCRIP TRANSMIT VIA ERX SY CPT-4: G8553 09/13/2011 PRESCRIP TRANSMIT VIA ERX SY CPT-4: G8553 08/07/2011 ROUTINE VENIPUNCTURE CPT-4: 05973 07/13/2011 RML ASSAY OF FREE THYROXINE CPT-4: 86391 07/13/2011 RML ASSAY THYROID STIM HORMONE CPT-4: 25523 1 RML COMPREHEN METABOLIC PANEL CPT-4: 82934 07/13/2011 RML COMPLETE CBC W/AUTO DIFF WBC CPT-4: 07088 011 RML LIPID PANEL CPT-4: 04375 07/13/2011 ROUTINE VENIPUNCTURE CPT-4: 89584 03/13/2011 RML COMPREHEN METABOLIC PANEL CPT-4: 99661 03/13/2011 RML LIPID PANEL CPT-4: 56808 03/13/2011 RML ASSAY THYROID STIM HORMONE CPT-4: 12831 1 RML ASSAY OF FREE THYROXINE CPT-4: 71091 03/13/2011 PRESCRIP TRANSMIT VIA ERX SY CPT-4: G8553 01/04/2011 ROUTINE VENIPUNCTURE CPT-4: 59106 12/16/2010 RML LIPID PANEL CPT-4: 22377 12/16/2010 RML COMPLETE CBC W/AUTO DIFF WBC CPT-4: 21785 011 RML COMPREHEN METABOLIC PANEL CPT-4: 46446 12/16/2010 RML ASSAY OF FREE THYROXINE CPT-4: 65543 12/16/2010 RML ASSAY THYROID STIM HORMONE CPT-4: 16823 1 INJ TRIGGER POINT 1/2 MUSCL CPT-4: 90914 02/14/2010 TRIAMCINOLONE ACET INJ NOS CPT-4: J3301 02/14/2010 METHYLPREDNISOLONE 40 MG INJ CPT-4: J1030 02/14/2010 THER/PROPH/DIAG INJ SC/IM CPT-4: 67035 02/07/2010 KETOROLAC TROMETHAMINE INJ CPT-4: J1885 02/07/2010 ROUTINE VENIPUNCTURE CPT-4: 10157 12/22/2009 Vital Signs Date Vital 08/02/2022 Blood Pressure 1: 141/102 Code: 8480-6 BMI: 26.4 Code: 30518-5 Heart Rate 1: 91 bpm Height: 5'10" Code: 8302-2 SpO2: 98% Temperature: 36.2 (C) / 97.1 (F) Weight: 184 lbs Code: 14978-3 06/26/2022 Blood Pressure 1: 132/78 Code: 8480-6 BMI: 25.5 Code: 72847-5 Heart Rate 1: 96 bpm Height: 5'10" Code: 8302-2 SpO2: 98% Temperature: 36.2 (C) / 97.2 (F) Weight: 178 lbs Code: 97912-7 05/22/2022 Blood Pressure 1: 126/82 Code: 8480-6 BMI: 25.5 Code: 79083-0 Heart Rate 1: 104 bpm Height: 5'10" Code: 8302-2 Respiratory Rate: 20 bpm SpO2: 96% Temperature: 36.8 (C) / 98.2 (F) Weight: 178 lbs Code: 52282-7 02/27/2022 Blood Pressure 1: 142/82 Code: 8480-6 BMI: 25.5 Code: 66759-6 Heart Rate 1: 112 bpm Height: 5'10" Code: 8302-2 Respiratory Rate: 20 bpm SpO2: 96% Temperature: 36.8 (C) / 98.3 (F) Weight: 178 lbs Code: 87679-6 11/23/2021 Blood Pressure 1: 136/82 Code: 8480-6 BMI: 25.7 Code: 48967-4 Heart Rate 1: 72 bpm Height: 5'10" Code: 8302-2 Respiratory Rate: 20 bpm SpO2: 98% Temperature: 36.6 (C) / 97.9 (F) Weight: 179 lbs Code: 78377-5 10/12/2021 Blood Pressure 1: 128/92 Code: 8480-6 BMI: 25.5 Code: 01362-8 Heart Rate 1: 68 bpm Height: 5'10" Code: 8302-2 Respiratory Rate: 20 bpm SpO2: 98% Temperature: 36.7 (C) / 98.1 (F) Weight: 178 lbs Code: 87792-5 08/09/2021 Blood Pressure 1: 127/80 Code: 8480-6 Heart Rate 1: 69 bpm Respiratory Rate: 15 bpm SpO2: 98% Temperature: 36.7 (C) / 98.0 (F) We ight: 171 lbs Code: 74546-3 07/28/2021 Blood Pressure 1: 132/78 Code: 8480-6 Heart Rate 1: 76 bpm Respiratory Rate: 20 bpm SpO2: 96% Temperature: 36.8 (C) / 98.2 (F) We ight: 174 lbs Code: 17396-1 05/12/2021 Blood Pressure 1: 142/80 Code: 8480-6 Heart Rate 1: 76 bpm Respiratory Rate: 20 bpm SpO2: 96% Temperature: 36.8 (C) / 98.2 (F) We ight: 173 lbs Code: 53350-2 03/08/2021 Blood Pressure 1: 124/80 Code: 8480-6 Heart Rate 1: 88 bpm Respiratory Rate: 20 bpm SpO2: 98% Temperature: 36.8 (C) / 98.3 (F) We ight: 175 lbs Code: 40858-5 02/03/2021 Blood Pressure 1: 144/84 Code: 8480-6 Heart Rate 1: 68 bpm Respiratory Rate: 20 bpm SpO2: 97% Temperature: 36.7 (C) / 98.1 (F) We ight: 182 lbs Code: 48452-1 01/04/2021 Blood Pressure 1: 152/86 Code: 8480-6 Heart Rate 1: 72 bpm Respiratory Rate: 20 bpm SpO2: 97% Temperature: 36.6 (C) / 97.8 (F) We ight: 182 lbs Code: 21327-3 10/05/2020 Blood Pressure 1: 124/66 Code: 8480-6 He art Rate 1: 65 bpm 09/20/2020 Blood Pressure 1: 134/76 Code: 8480-6 Heart Rate 1: 60 bpm Respiratory Rate: 20 bpm SpO2: 97% Temperature: 36.1 (C) / 97.0 (F) We ight: 187 lbs Code: 19676-6 05/28/2020 Temperature: 36.8 (C) / 98.3 (F) 05/19/2020 Blood Pressure 1: 128/78 Code: 8480-6 Heart Rate 1: 50 bpm Respiratory Rate: 20 bpm SpO2: 98% Temperature: 36.5 (C) / 97.7 (F) 05/11/2020 Blood Pressure 1: 126/80 Code: 8480-6 BMI: 25.4 Code: 46197-0 Heart Rate 1: 60 bpm Height: 5'10" Code: 8302-2 Respiratory Rate: 20 bpm Temperat ure: 36.6 (C) / 97.8 (F) Weight: 177 lbs Code: 36783-6 05/05/2020 Blood Pressure 1: 122/78 Code: 8480-6 [...] 1: 104/66 Code: 8480-6 BMI: 25.4 Code: 69700-8 Heart Rate 1: 56 bpm Height: 5'10" Code: 8302-2 Respiratory Rate: 20 bpm SpO2: 97% Temperature: 36.6 (C) / 97.8 (F) Weight: 177 lbs Code: 61566-1 10/29/2019 Blood Pressure 1: 114/62 Code: 8480-6 Heart Rate 1: 68 bpm Respiratory Rate: 20 bpm SpO2: 99% Temperature: 36.8 (C) / 98.2 (F) 10/20/2019 Blood Pressure 1: 119/74 Code: 8480-6 Heart Rate 1: 57 bpm Respiratory Rate: 16 bpm SpO2: 99% Temperature: 36.9 (C) / 98.4 (F) We ight: 176 lbs Code: 01494-0 07/07/2019 Blood Pressure 1: 126/74 Code: 8480-6 Heart Rate 1: 72 bpm Respiratory Rate: 16 bpm SpO2: 95% Temperature: 36.8 (C) / 98.2 (F) We ight: 179 lbs Code: 05465-5 05/01/2019 Blood Pressure 1: 126/76 Code: 8480-6 Heart Rate 1: 60 bpm Respiratory Rate: 20 bpm SpO2: 97% Temperature: 36.8 (C) / 98.2 (F) 04/15/2019 Blood Pressure 1: 154/94 Code: 8480-6 BMI: 26.0 Code: 99186-5 Heart Rate 1: 60 bpm Height: 5'10" Code: 8302-2 Respiratory Rate: 18 bpm SpO2: 97% Temperature: 36.6 (C) / 97.9 (F) Weight: 181 lbs Code: 77608-5 11/26/2018 Blood Pressure 1: 142/80 Code: 8480-6 BMI: 26.3 Code: 13277-1 Heart Rate 1: 56 bpm Height: 5'10" Code: 8302-2 Respiratory Rate: 20 bpm SpO2: 97% Temperature: 36.9 (C) / 98.4 (F) Weight: 183 lbs Code: 29226-3 08/08/2018 Blood Pressure 1: 126/68 Code: 8480-6 Heart Rate 1: 76 bpm Height: 5'10" Code: 8302-2 Respiratory Rate: 20 bpm SpO2: 97% Temperature: 36 .7 (C) / 98.0 (F) Weight: Code: 27420-1 06/25/2018 Blood Pressure 1: 112/70 Code: 8480-6 BMI: 25.8 Code: 55641-2 Heart Rate 1: 64 bpm Height: 5'10" Code: 8302-2 Respiratory Rate: 20 bpm SpO2: 95% Temperature: 36.9 (C) / 98.4 (F) Weight: 180 lbs Code: 91888-6 05/20/2018 Blood Pressure 1: 132/100 Code: 8480-6 H eart Rate 1: 76 bpm 05/10/2018 Blood Pressure 1: 144/86 Code: 8480-6 Heart Rate 1: 60 bpm Respiratory Rate: 20 bpm SpO2: 97% Temperature: 36.9 (C) / 98.4 (F) We ight: Code: 33978-6 05/03/2018 Blood Pressure 1: 126/92 Code: 8480-6 Bl ood Pressure 2: 147/79 Code: 8480-6 Heart Rate 1: 64 bpm Height: 5'10" Code: 8302-2 Respiratory Rate : 22 bpm SpO2: 98% Temperature: 36.3 (C) / 97.3 (F) Weight: Code: 05845- 7 04/22/2018 Blood Pressure 1: 140/82 Code: 8480-6 BMI: 26.3 Code: 77548-3 Heart Rate 1: 60 bpm Height: 5'10" Code: 8302-2 Respiratory Rate: 20 bpm SpO2: 95% Temperature: 36.8 (C) / 98.2 (F) Weight: 183 lbs Code: 25055-8 03/05/2018 Blood Pressure 1: 122/64 Code: 8480-6 BMI: 25.7 Code: 87762-1 Heart Rate 1: 82 bpm Height: 5'10" Code: 8302-2 Respiratory Rate: 22 bpm SpO2: 96% Temperature: 36.4 (C) / 97.6 (F) Weight: 179 lbs Code: 24548-1 02/19/2018 Blood Pressure 1: 120/84 Code: 8480-6 Heart Rate 1: 68 bpm SpO2: 96% Temperature: 36.2 (C) / 97.2 (F) Weight: Code: 15181-3 02/13/2018 Blood Pressure 1: 138/90 Cod e: 8480-6 10/18/2017 Blood Pressure 1: 122/78 Code: 8480-6 BMI: 26.5 Code: 27291-2 Heart Rate 1: 72 bpm Height: 5'10" Code: 8302-2 Respiratory Rate: 20 bpm Temperat ure: 36.7 (C) / 98.0 (F) Weight: 185 lbs Code: 60069-3 07/24/2017 Blood Pressure 1: 118/68 Code: 8480-6 Heart Rate 1: 82 bpm Height: 5'10" Code: 8302-2 Respiratory Rate: 20 bpm SpO2: 92% Temperature: 36 .4 (C) / 97.6 (F) Weight: Code: 43636-5 06/14/2017 Blood Pressure 1: 156/98 Code: 8480-6 Heart Rate 1: 84 bpm Height: 5'10" Code: 8302-2 Respiratory Rate: 20 bpm SpO2: 96% Temperature: 36 .9 (C) / 98.5 (F) Weight: Code: 83536-7 06/01/2017 Blood Pressure 1: 122/82 Code: 8480-6 Heart Rate 1: 68 bpm Height: 5'10" Code: 8302-2 Respiratory Rate: 20 bpm Temperature: 36.8 (C) / 98.2 (F) 03/30/2017 Blood Pressure 1: 124/78 Code: 8480-6 Heart Rate 1: 88 bpm Height: 5'10" Code: 8302-2 Respiratory Rate: 20 bpm SpO2: 96% Temperature: 36 .9 (C) / 98.4 (F) Weight: Code: 08031-1 01/17/2017 Blood Pressure 1: 126/74 Code: 8480-6 Heart Rate 1: 72 bpm Height: 5'10" Code: 8302-2 Respiratory Rate: 20 bpm SpO2: 96% Temperature: 37 .0 (C) / 98.6 (F) Weight: Code: 72967-4 12/18/2016 Blood Pressure 1: 128/86 Code: 8480-6 BMI: 24.7 Code: 06113-1 Heart Rate 1: 76 bpm Height: 5'10" Code: 8302-2 Respiratory Rate: 20 bpm SpO2: 96% Temperature: 36.8 (C) / 98.3 (F) Weight: 172 lbs Code: 01935-6 11/02/2016 Blood Pressure 1: 128/80 Code: 8480-6 BMI: 24.7 Code: 88386-5 Heart Rate 1: 72 bpm Height: 5'10" Code: 8302-2 Respiratory Rate: 20 bpm SpO2: 94% Temperature: 36.9 (C) / 98.4 (F) Weight: 172 lbs Code: 36147-5 10/24/2016 Blood Pressure 1: 120/78 Code: 8480-6 BMI: 24.7 Code: 09248-7 Heart Rate 1: 88 bpm Height: 5'10" Code: 8302-2 Respiratory Rate: 18 bpm SpO2: 96% Temperature: 36.5 (C) / 97.7 (F) Weight: 172 lbs Code: 56556-2 02/07/2016 Heart Rate 1: 76 bpm Respiratory Rate: 22 bpm SpO2: 96 % Temperature: 36.4 (C) / 97.6 (F) Weight: Code: 70371-8 05/26/2015 Blood Pressure 1: 124/70 Code: 8480-6 BMI: 25.1 Code: 14469-8 Heart Rate 1: 84 bpm Height: 5'10" Code: 8302-2 Respiratory Rate: 20 bpm Temperat ure: 36.7 (C) / 98.1 (F) Weight: 175 lbs Code: 35566-4 11/30/2014 Blood Pressure 1: 142/94 Code: 8480-6 BMI: 25.1 Code: 38781-8 Heart Rate 1: 80 bpm Height: 5'10" Code: 8302-2 Respiratory Rate: 20 bpm Temperat ure: 36.9 (C) / 98.5 (F) Weight: 175 lbs Code: 64469-2 07/23/2014 Blood Pressure 1: 138/86 Code: 8480-6 BMI: 25.0 Code: 28973-0 Heart Rate 1: 80 bpm Height: 5'10" Code: 8302-2 Respiratory Rate: 20 bpm Temperat ure: 36.4 (C) / 97.6 (F) Weight: 174 lbs Code: 33640-0 03/09/2014 Blood Pressure 1: 122/78 Code: 8480-6 BMI: 25.0 Code: 85595-0 Heart Rate 1: 78 bpm Height: 5'10" Code: 8302-2 Respiratory Rate: 24 bpm Temperat ure: 36.4 (C) / 97.6 (F) Weight: 174 lbs Code: 83274-2 02/05/2014 Blood Pressure 1: 132/80 Code: 8480-6 BMI: 25.0 Code: 78942-1 Heart Rate 1: 84 bpm Height: 5'10" Code: 8302-2 Respiratory Rate: 20 bpm Temperat ure: 36.6 (C) / 97.9 (F) Weight: 174 lbs Code: 68016-1 05/12/2013 Blood Pressure 1: 138/94 Code: 8480-6 BMI: 25.1 Code: 03548-8 Heart Rate 1: 92 bpm Height: 5'10" Code: 8302-2 Respiratory Rate: 20 bpm Temperat ure: 36.7 (C) / 98.1 (F) Weight: 175 lbs Code: 35972-8 04/07/2013 Blood Pressure 1: 136/72 Code: 8480-6 BMI: 25.1 Code: 84322-7 Heart Rate 1: 76 bpm Height: 5'10" Code: 8302-2 Respiratory Rate: 20 bpm Temperat ure: 36.7 (C) / 98.0 (F) Weight: 175 lbs Code: 71029-0 03/31/2013 Blood Pressure 1: 132/94 Code: 8480-6 BMI: 25.1 Code: 37791-8 Heart Rate 1: 76 bpm Height: 5'10" Code: 8302-2 Respiratory Rate: 20 bpm Temperat ure: 36.7 (C) / 98.0 (F) Weight: 175 lbs Code: 67086-9 10/09/2012 Blood Pressure 1: 132/80 Code: 8480-6 BMI: 24.8 Code: 68234-6 Heart Rate 1: 88 bpm Height: 5'10" Code: 8302-2 Temperature: 36.8 (C) / 98.3 (F) Weight: 173 lbs Code: 00343-9 03/28/2012 Blood Pressure 1: 126/82 Code: 8480-6 BMI: 24.7 Code: 41206-6 Heart Rate 1: 72 bpm Height: 5'10" Code: 8302-2 Respiratory Rate: 20 bpm Temperat ure: 36.6 (C) / 97.8 (F) Weight: 172 lbs Code: 35005-6 2012 Blood Pressure 1: 130/72 Code: 8480-6 Heart Rate 1: 80 bpm Height: Code: 8302-2 Temperature: 36.5 (C) / 97.7 (F) Weight: Code: 10121- 7 09/27/2011 Blood Pressure 1: 116/78 Code: 8480-6 BMI: 24.4 Code: 31074-6 Heart Rate 1: 76 bpm Height: 5'10" Code: 8302-2 Respiratory Rate: 20 bpm Temperat ure: 36.9 (C) / 98.4 (F) Weight: 170 lbs Code: 69769-2 09/13/2011 Blood Pressure 1: 124/82 Code: 8480-6 BMI: 24.4 Code: 60182-0 Heart Rate 1: 72 bpm Height: 5'10" Code: 8302-2 Respiratory Rate: 20 bpm Temperat ure: 36.4 (C) / 97.6 (F) Weight: 170 lbs Code: 61276-8 08/07/2011 Blood Pressure 1: 110/74 Code: 8480-6 BMI: 23.2 Code: 06928-0 Heart Rate 1: 60 bpm Height: 5'11" Code: 8302-2 Temperature: 36.4 (C) / 97.5 (F) Weight: 166 lbs Code: 09171-5 02/06/2011 Blood Pressure 1: 96/58 Code : 8480-6 01/20/2011 Blood Pressure 1: 112/78 Cod e: 8480-6 01/12/2011 Blood Pressure 1: 110/48 Code: 8480-6 He art Rate 1: 84 bpm 01/04/2011 Blood Pressure 1: 126/80 Code: 8480-6 Heart Rate 1: 76 bpm Temperature: 36.9 (C) / 98.4 (F) Weight: 168 lbs Code: 39796-1 02/14/2010 Blood Pressure 1: 134/82 Code: 8480-6 Heart Rate 1: 88 bpm Temperature: 36.6 (C) / 97.9 (F) 02/07/2010 Blood Pressure 1: 130/80 Code: 8480-6 BMI: 23.4 Code: 90708-4 Heart Rate 1: 84 bpm Height: 5'10" Code: 8302-2 Temperature: 36.4 (C) / 97.6 (F) Weight: 163 lbs Code: 63393-2 Functional Status No Functional Status data Reason [...] Encounter Performer Location Location Address Codes Date ([id number]) OFFICE/OUTPATIENT VISIT EST Diagnosis: Atrial fibrillation and flutter[ICD10: I48.91] Diagnosis: Essential (primary) hypertension[ICD10: I10] Diagnosis: Stress[ICD10: F43.9] Diagnosis: Cough[ICD10: R05.9] Yvette STAURT CristiGarrett JOANN [address] [address] CPT-4: 18411 08/02/20 ([id number]) OFFICE/OUTPATIENT VISIT EST Diagnosis: Atrial fibrillation and flutter[ICD10: I48.91] Yvette Rodriguez KUN[address] [address] CPT- 4: 26894 06/26/2022 ([id number]) OFFICE/OUTPATIENT VISIT EST Diagnosis: Chronic atrial fibrillation[ICD10: I48.20] Diagnosis: Essential hypertension[ICD10: I10] Diagnosis: Skin cancer of arm[ICD10: C44.601] Diagnosis: Mild chronic obstructive pulmonary disease[ICD10: J44.9] Yvette STUART CristiGarrett JOANN [address] [address] CPT-4: 86852 05/22/2022 ([id number]) NURSE/OUTPATIENT VISIT EST Diagnosis: Atrial fibrillation and flutter[ICD10: I48.91] Diagnosis: Hypothyroidism[ICD10: E03.9] Diagnosis: Mixed hyperlipidemia[ICD10: E78.2] Diagnosis: Anemia, unspecified[ICD10: D64.9] Diagnosis: Essential (primary) hypertension[ICD10: I10] Diagnosis: Hyperglycemia, unspecified[ICD10: R73.9] Yvette DAVID DO [address] [address] CPT- 4: 21983 02/28/2022 ([id number]) OFFICE/OUTPATIENT VISIT EST Diagnosis: Atypical nevus of right forearm[ICD10: D22.61] Diagnosis: Unspecified atrial flutter[ICD10: I48.92] Diagnosis: Atrial fibrillation and flutter[ICD10: I48.91] Yvette DAVID DO [address] [address] CPT- 4: 07301 02/27/2022 ([id number]) OFFICE/OUTPATIENT VISIT EST Diagnosis: Anxiety[ICD10: F41.9] Yvette DAVID DO [address] [address] CPT-4: 22731 11/23/2021 ([id number]) OFFICE/OUTPATIENT VISIT EST Diagnosis: Anxiety[ICD10: F41.9] Diagnosis: Stress reaction[ICD10: F43.0] Yvette DAVID DO [address] [address] CPT-4: 13218 10/12/2021 ([id number]) OFFICE/OUTPATIENT VISIT EST Diagnosis: Contact with and (suspected) exposure to covid-19[ICD10: Z20.822] Diagnosis: Nasopharyngitis[ICD10: J00] Diagnosis: Acute foreign body of left ear canal, initial encounter[ICD10: T16.2XXA] Diagnosis: Acute foreign body of right ear canal[ICD10: T16.1XXA] Martina Jessica YVETTE DAVID DO [address] [address] CPT-4: 63428 08/09/2021 ([id number]) OFFICE/OUTPATIENT VISIT EST Diagnosis: Essential (primary) hypertension[ICD10: I10] Diagnosis: Hypothyroidism[ICD10: E03.9] Diagnosis: Paroxysmal atrial fibrillation[ICD10: I48.0] Diagnosis: Hyperglycemia, unspecified[ICD10: R73.9] Yvette DAVID DO [facility] [address] [place] [address] CPT- 4: 71759 07/28/2021 ([id number]) NURSE/OUTPATIENT VISIT EST Diagnosis: Mixed hyperlipidemia[ICD10: E78.2] Diagnosis: Anemia, unspecified[ICD10: D64.9] Diagnosis: Essential (primary) hypertension[ICD10: I10] Diagnosis: Hypothyroidism, unspecified[ICD10: E03.9] Diagnosis: Hyperglycemia, unspecified[ICD10: R73.9] Yvette DAVID DO [address] [address] CPT- 4: 82443 07/20/2021 ([id number]) OFFICE/OUTPATIENT VISIT EST Diagnosis: Grieving[ICD10: F43.21] Diagnosis: Inflamed seborrheic keratosis[ICD10: L82.0] Yvette DAVID DO [address] [address] CPT- 4: 05924 05/12/2021 ([id number]) OFFICE/OUTPATIENT VISIT EST Diagnosis: Rhus dermatitis[ICD10: L25.5] Yvette DAVID DO [address] [address] CPT-4: 95428 03/08/2021 ([id number]) OFFICE/OUTPATIENT VISIT EST Diagnosis: Essential hypertension[ICD10: I10] Diagnosis: Chronic atrial fibrillation[ICD10: I48.20] Diagnosis: Mixed hyperlipidemia[ICD10: E78.2] Diagnosis: Hyperglycemia, unspecified[ICD10: R73.9] Diagnosis: Depression[ICD10: F32.9] Yvette COTE [address] [address] CPT-4: 79876 02/03/2021 ([id number]) NURSE/OUTPATIENT VISIT EST Diagnosis: Hyperglycemia, unspecified[ICD10: R73.9] Diagnosis: Mixed hyperlipidemia[ICD10: E78.2] Diagnosis: Essential (primary) hypertension[ICD10: I10] Diagnosis: Hypothyroidism, unspecified[ICD10: E03.9] Yvette DAVID DO [address] [address] CPT- 4: 55834 01/31/2021 ([id number]) OFFICE/OUTPATIENT VISIT EST Diagnosis: Vertigo[ICD10: R42] Diagnosis: Chronic atrial fibrillation[ICD10: I48.20] Diagnosis: Cerumen impaction[ICD10: H61.20] Diagnosis: Depression[ICD10: F32.9] Yvette COTE [address] [address] CPT-4: 94384 01/04/2021 ([id number]) NURSE/OUTPATIENT VISIT EST Diagnosis: Essential hypertension[ICD10: I10] Yvette DAVID [address] [address] CPT-4: 63892 10/05/2020 ([id number]) OFFICE/OUTPATIENT VISIT EST Diagnosis: Chronic atrial fibrillation[ICD10: I48.20] Diagnosis: Dizziness[ICD10: R42] Yvette DAVID DO [address] [address] CPT-4: 46757 09/20/2020 ([id number]) NURSE/OUTPATIENT VISIT EST Diagnosis: Dysplastic nevus of right lower extremity[ICD10: D23.71] Yvette DAVID DO [address] [address] CPT-4: 88694 05/28/2020 ([id number]) NURSE/OUTPATIENT VISIT EST Diagnosis: Essential (primary) hypertension[ICD10: I10] Diagnosis: Type 2 diabetes mellitus with hyperglycemia[ICD10: E11.65] Diagnosis: Anemia, unspecified[ICD10: D64.9] Diagnosis: Hypothyroidism, unspecified[ICD10: E03.9] Yvette DAVID DO [address] [address] CPT- 4: 49918 05/05/2020 ([id number]) OFFICE/OUTPATIENT VISIT EST Diagnosis: 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] Diagnosis: Paroxysmal atrial fibrillation[ICD10: I48.0] Yvette STUART CristiGarrett KUNNDER DO [address] [address] CPT- 4: 15045 02/11/2020 ([id number]) OFFICE/OUTPATIENT VISIT EST Diagnosis: Dermatitis[ICD10: L30.9] Diagnosis: 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] Diagnosis: Chronic pruritus[ICD10: L29.9] Yvette STUART Cristi Garrett KUNNDMAYE [address] [address] CPT-4: 84760 01/28/2020 ([id number]) OFFICE/OUTPATIENT VISIT EST Diagnosis: Diarrhea, unspecified[ICD10: R19.7] Diagnosis: Dizziness[ICD10: R42] Diagnosis: Generalized pruritus[ICD10: L29.9] Yvette COREA SGarrett KNUNDER DO [address] [address] CPT-4: 62649 01/05/2020 ([id number]) NURSE/OUTPATIENT VISIT EST Diagnosis: Renal insufficiency[ICD10: N28.9] Yvette Shahid SGarrett KUNNDER [address] [address] CPT-4: 15271 12/05/2019 ([id number]) NURSE/OUTPATIENT VISIT EST Diagnosis: Renal insufficiency[ICD10: N28.9] Diagnosis: Dehydration[ICD10: E86.0] Yvette STUART CristiGarrett KUN NDER DO [address] [address] CPT-4: 10776 11/05/2019 ([id number]) OFFICE/OUTPATIENT VISIT EST Diagnosis: Chronic atrial fibrillation[ICD10: I48.20] Diagnosis: Renal insufficiency[ICD10: N28.9] Diagnosis: Dizziness and giddiness[ICD10: R42] Yvette COLEMAN SGarrett BUSTOSNDER DO [facility] [address] [place] [address] CPT-4: 43139 10/29/2019 ([id number]) NURSE/OUTPATIENT VISIT EST Diagnosis: Hematuria, unspecified[ICD10: R31.9] Yvette MENA Michael BUSTOSNDER DO [address] [address] CPT-4: 15821 10/23/2019 ([id number]) NURSE/OUTPATIENT VISIT EST Diagnosis: Encounter for general adult medical examination without abnormal findings[ICD10: Z00.00] Diagnosis: Essential (primary) hypertension[ICD10: I10] Diagnosis: Hypothyroidism, unspecified[ICD10: E03.9] Diagnosis: Mixed hyperlipidemia[ICD10: E78.2] Yvette COREA Michael BUSTOSNDER DO [address] [address] CPT-4: 94388 10/21/2019 ([id number]) OFFICE/OUTPATIENT VISIT EST Diagnosis: Cerumen impaction[ICD10: H61.20] Diagnosis: Dizziness[ICD10: R42] Diagnosis: Gastritis[ICD10: K29.70] Diagnosis: Dehydration[ICD10: E86.0] Natalee MERCADOLINE Michael BUSTOS NDER DO [address] [address] CPT-4: 40874 10/20/2019 ([id number]) OFFICE/OUTPATIENT VISIT EST Diagnosis: Paroxysmal atrial fibrillation[ICD10: I48.0] Diagnosis: Essential hypertension[ICD10: I10] Yvette COREA SGarrett BUSTOSNDER DO [address] [address] CPT-4: 48061 07/07/2019 ([id number]) OFFICE/OUTPATIENT VISIT EST Diagnosis: Essential (primary) hypertension[ICD10: I10] Yvette STUART Michael BUSTOSNDER DO [address] [address] CPT- 4: 44136 05/01/2019 ([id number]) OFFICE/OUTPATIENT VISIT EST Diagnosis: Essential (primary) hypertension[ICD10: I10] Diagnosis: Localized edema[ICD10: R60.0] Yvette DAVID [address] [address] CPT-4: 81930 04/15/2019 ([id number]) NURSE/OUTPATIENT VISIT EST Diagnosis: Essential (primary) hypertension[ICD10: I10] Diagnosis: Hypothyroidism, unspecified[ICD10: E03.9] Diagnosis: Mixed hyperlipidemia[ICD10: E78.2] Yvette DAVID [address] [address] CPT-4: 31224 04/04/2019 ([id number]) NURSE/OUTPATIENT VISIT EST Diagnosis: Essential (primary) hypertension[ICD10: I10] Diagnosis: Hyperglycemia, unspecified[ICD10: R73.9] Diagnosis: Hypothyroidism, unspecified[ICD10: E03.9] Diagnosis: Mixed hyperlipidemia[ICD10: E78.2] Yvette DAVID [address] [address] CPT-4: 22359 10/07/2018 ([id number]) OFFICE/OUTPATIENT VISIT EST Diagnosis: Essential (primary) hypertension[ICD10: I10] Diagnosis: Presence of right artificial knee joint[ICD10: Z96.651] Diagnosis: Unspecified hearing loss, left ear[ICD10: H91.92] Yvette DAVID [address] [address] CPT- 4: 15208 08/08/2018 OFFICE/OUTPATIENT VISIT EST Diagnosis: Impacted cerumen, bilateral[ICD10: H61.23] Diagnosis: Vertigo of central origin, bilateral[ICD10: H81.43] Diagnosis: Essential (primary) hypertension[ICD10: I10] Diagnosis: Paroxysmal atrial fibrillation[ICD10: I48.0] Diagnosis: Dizziness and giddiness[ICD10: R42] Diagnosis: Sudden idiopathic hearing loss, left ear[ICD10: H91.22] Yvette Orender [address] [address] CPT-4: 58079 06/25/2018 ([id number]) OFFICE/OUTPATIENT VISIT EST Diagnosis: Essential (primary) hypertension[ICD10: I10] Diagnosis: Vertigo of central origin, bilateral[ICD10: H81.43] Yvette DAVID [address] [address] CPT-4: 40996 05/10/2018 ([id number]) OFFICE/OUTPATIENT VISIT EST Diagnosis: Allergic rhinitis due to pollen[ICD10: J30.1] Diagnosis: Dizziness and giddiness[ICD10: R42] Diagnosis: Vertigo of central origin, bilateral[ICD10: H81.43] Diagnosis: Essential (primary) hypertension[ICD10: I10] Yvette DAVID [address] [address] CPT- 4: 29771 05/03/2018 OFFICE/OUTPATIENT VISIT EST Diagnosis: Hypothyroidism, unspecified[ICD10: E03.9] Diagnosis: Mixed hyperlipidemia[ICD10: E78.2] Diagnosis: Essential (primary) hypertension[ICD10: I10] Diagnosis: Paroxysmal atrial fibrillation[ICD10: I48.0] Diagnosis: Obstructive sleep apnea (adult) (pediatric)[ICD10: G47.33] Diagnosis: Unilateral primary osteoarthritis, right knee[ICD10: M17.11] Yvette DAVID [address] [address] CPT-4: 40670 04/22/2018 ([id number]) OFFICE/OUTPATIENT VISIT EST Diagnosis: Zoster without complications[ICD10: B02.9] Natalee DAVID [address] [address] CPT- 4: 53044 03/05/2018 ([id number]) NURSE/OUTPATIENT VISIT EST Diagnosis: Hypothyroidism, unspecified[ICD10: E03.9] Diagnosis: Mixed hyperlipidemia[ICD10: E78.2] Diagnosis: Essential (primary) hypertension[ICD10: I10] Diagnosis: Paroxysmal atrial fibrillation[ICD10: I48.0] Yvette DAVID DO [facility] [address] [place] [address] CPT- 4: 90496 02/13/2018 ([id number]) OFFICE/OUTPATIENT VISIT EST Diagnosis: Obstructive sleep apnea (adult) (pediatric)[ICD10: G47.33] Diagnosis: Essential (primary) hypertension[ICD10: I10] Diagnosis: Paroxysmal atrial fibrillation[ICD10: I48.0] Yvette BUSTOSNDMAYE BORJA [facility] [address] [place] [address] CPT- 4: 49296 10/18/2017 ([id number]) OFFICE/OUTPATIENT VISIT EST Diagnosis: Hypothyroidism, unspecified[ICD10: E03.9] Diagnosis: Other vitamin B12 deficiency anemias[ICD10: D51.8] Diagnosis: Essential (primary) hypertension[ICD10: I10] Diagnosis: Mixed hyperlipidemia[ICD10: E78.2] Yvette COREA Michael DAVID [facility] [address] [address] CPT-4: 04311 10/15/2017 OFFICE/OUTPATIENT VISIT EST Diagnosis: Impacted cerumen, bilateral[ICD10: H61.23] Diagnosis: Acute sinusitis, unspecified[ICD10: J01.90] Natalee DAVID [address] [address] CPT- 4: 24136 07/24/2017 ([id number]) OFFICE/OUTPATIENT VISIT EST Diagnosis: Obstructive sleep apnea (adult) (pediatric)[ICD10: G47.33] Diagnosis: Tachycardia, unspecified[ICD10: R00.0] Yvette QUINONES Michael BUSTOSNDMAYE [address] [address] CPT-4: 47168 06/14/2017 ([id number]) OFFICE/OUTPATIENT VISIT EST Diagnosis: Zoster without complications[ICD10: B02.9] Demi Rocha YVETTE DAVID [facility] [address] [address] CPT- 4: 23528 06/01/2017 ([id number]) OFFICE/OUTPATIENT VISIT EST Diagnosis: Essential (primary) hypertension[ICD10: I10] Diagnosis: Tachycardia, unspecified[ICD10: R00.0] Diagnosis: Other vitamin B12 deficiency anemias[ICD10: D51.8] Yvette DILLONQUELINE CristiGarrett JOANN [address] [address] CPT- 4: 44042 03/30/2017 ([id number]) OFFICE/OUTPATIENT VISIT EST Diagnosis: Essential (primary) hypertension[ICD10: I10] Diagnosis: Other fatigue[ICD10: R53.83] Diagnosis: Other chest pain[ICD10: R07.89] Diagnosis: Snoring[ICD10: R06.83] Yvette Kunnate Vega [address] [address] CPT-4: 44334 01/17/2017 ([id number]) OFFICE/OUTPATIENT VISIT EST Diagnosis: Encounter for general adult medical examination without abnormal findings[ICD10: Z00.00] Diagnosis: Hypothyroidism, unspecified[ICD10: E03.9] Diagnosis: Essential (primary) hypertension[ICD10: I10] Diagnosis: Mixed hyperlipidemia[ICD10: E78.2] Diagnosis: Other fpc (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[ICD10: Z79.899] Diagnosis: Hyperglycemia, unspecified[ICD10: R73.9] Yvette Kunvetomaye YVETTE CristiGarrett JOANN [address] [address] CPT- 4: 49299 12/11/2016 ([id number]) OFFICE/OUTPATIENT VISIT EST Diagnosis: URI, ACUTE[ICD10: J06.9] Diagnosis: Cough[ICD10: R05] Yvette Kunnate Rodriguez KUNNATE [address] [address] CPT-4: 40909 11/02/19 ([id number]) OFFICE/OUTPATIENT VISIT EST Diagnosis: Acute upper respiratory infection, unspecified[ICD10: J06.9] Elidia TAYLORER DO [address] [address] CPT-4: 13290 10/24/2016 ([id number]) OFFICE/OUTPATIENT VISIT EST Diagnosis: Nausea[ICD10: R11.0] Diagnosis: Diarrhea, unspecified[ICD10: R19.7] Diagnosis: Dizziness and giddiness[ICD10: R42] Elidia WAYNE JARED Michael BUSTOSNDER DO [address] [address] CPT-4: 60830 02/07/2016 ([id number]) OFFICE/OUTPATIENT VISIT EST Diagnosis: HYPOTHYROIDISM[ICD9: 244.9] Diagnosis: HYPERLIPIDEMIA NEC/NOS[ICD9: 272.4] Diagnosis: ANEMIA NOS[ICD9: 285.9] Diagnosis: HYPERTENSION[ICD9: 401.9] Diagnosis: Neuropathy[ICD9: 355.9] Yvette Kunvetomaye YVETTE CristiGarrett KUNND ER DO [address] [address] CPT-4: 60649 05/27/2015 ([id number]) OFFICE/OUTPATIENT VISIT EST Diagnosis: Neuropathy[ICD9: 355.9] Diagnosis: Foot pain[ICD9: 729.5] Diagnosis: HYPOTHYROIDISM[ICD9: 244.9] Diagnosis: PNEUMOCOCCAL VACCINE[ICD10: Z23] Yvette Kunvetomaye YVETTE CristiGarrett KUNNDER DO [address] [address] CPT-4: 76136 05/26/2015 ([id number]) OFFICE/OUTPATIENT VISIT EST Diagnosis: Hematochezia[ICD9: 578.1] Yvette Kunnate STUART CristiGarrett KUN NDER DO [address] [address] CPT-4: 63393 02/19/2015 ([id number]) OFFICE/OUTPATIENT VISIT EST Diagnosis: Hematochezia[ICD9: 578.1] Yvette STUART CristiGarrett KUN NDER DO [address] [address] CPT-4: 76967 01/20/2015 ([id number]) OFFICE/OUTPATIENT VISIT EST Diagnosis: Hematochezia[ICD9: 578.1] Yvette BUSTOS NDER DO [address] [address] CPT-4: 46746 12/15/2014 ([id number]) OFFICE/OUTPATIENT VISIT EST Diagnosis: TINEA PEDIS[ICD9: 110.4] Diagnosis: Ceruminosis[ICD9: 380.4] Earline SmileyWhitneymargarita MERCADOLINE CristiGarrett KAMRONLilly CHAIREZ DO [address] [address] CPT-4: 87162 11/30/2014 ([id number]) OFFICE/OUTPATIENT VISIT EST Diagnosis: HYPERLIPIDEMIA NEC/NOS[ICD9: 272.4] Yvette WAYNE JARED CristiGarrett BRANDONMAYE DO [address] [address] CPT-4: 52414 11/26/2014 ([id number]) OFFICE/OUTPATIENT VISIT EST Diagnosis: HYPOTHYROIDISM[ICD9: 244.9] Diagnosis: HYPERLIPIDEMIA NEC/NOS[ICD9: 272.4] Diagnosis: ANEMIA NOS[ICD9: 285.9] Diagnosis: HYPERTENSION[ICD9: 401.9] Yvette MERCADOLINE CristiGarrett KUN AKHTARR DO [address] [address] CPT-4: 97087 08/14/2014 ([id number]) OFFICE/OUTPATIENT VISIT EST Diagnosis: GERD[ICD9: 530.81] Diagnosis: COUGH[ICD10: R05] Yvette MERCADOLINE CristiGarrett BRANDONER DO [address] [address] CPT-4: 00100 07/23/20 14 OFFICE/OUTPATIENT VISIT EST Diagnosis: Heel pain[ICD9: 729.5] Earline SmileyWhitneymargarita MERCADOLINE CristiGarrett KUNGIOVANA R DO [address] [address] CPT-4: 24627 03/09/2014 ([id number]) OFFICE/OUTPATIENT VISIT EST Diagnosis: HYPOTHYROIDISM[ICD9: 244.9] Diagnosis: HYPERLIPIDEMIA NEC/NOS[ICD9: 272.4] Diagnosis: Right medial knee pain[ICD9: 719.46] Yvette MENA CristiGarrett JOANN DO [address] [address] CPT-4: 22307 02/05/2014 ([id number]) OFFICE/OUTPATIENT VISIT EST Diagnosis: HYPOTHYROIDISM[ICD9: 244.9] Diagnosis: HYPERLIPIDEMIA NEC/NOS[ICD9: 272.4] Diagnosis: HYPERTENSION[ICD9: 401.9] Diagnosis: ANEMIA NOS[ICD9: 285.9] Diagnosis: MALAISE AND FATIGUE[ICD9: 780.79] Yvette KONG Zehra DAVID DO [address] [address] CPT-4: 49499 02/04/2014 OFFICE/OUTPATIENT VISIT EST Diagnosis: Right medial knee pain[ICD9: 719.46] Diagnosis: Degeneration, intervertebral disc, lumbar[ICD9: 722.52] Diagnosis: Low back pain[ICD9: 724.2] Earline STUART CristiGarrett LUISITO STEFAN DO [address] [address] CPT-4: 70627 05/12/2013 ([id number]) OFFICE/OUTPATIENT VISIT EST Diagnosis: Lumbar degenerative disc disease[ICD9: 722.52] Diagnosis: Bulging lumbar disc[ICD9: 722.10] Yvette KONG Zehra ColinGarrett JOANN DO [address] [address] CPT-4: 22279 04/07/2013 ([id number]) OFFICE/OUTPATIENT VISIT EST Diagnosis: PAIN, LOWER BACK[ICD9: 724.2] Diagnosis: SPASM OF MUSCLE[ICD9: 728.85] Diagnosis: Lumbar degenerative disc disease[ICD9: 722.52] Yvette STUART CristiGarrett JOANN DO [address] [address] CPT- 4: 55954 03/31/2013 ([id number]) OFFICE/OUTPATIENT VISIT EST Diagnosis: Greater trochanteric bursitis[ICD9: 726.5] Diagnosis: DYSPEPSIA[ICD9: 536.8] Yvette HYLTON R [address] [address] CPT-4: 60710 10/09/2012 OFFICE/OUTPATIENT VISIT EST Diagnosis: CYSTOCELE NOS[ICD9: 618.01] Diagnosis: GERD[ICD9: 530.81] Diagnosis: VAGINITIS[ICD9: 623.5] Yvette Vega [address] [address] CPT-4: 42216 03/28/2012 ([id number]) OFFICE/OUTPATIENT VISIT EST Diagnosis: HYPOTHYROIDISM[ICD9: 244.9] Diagnosis: HYPERLIPIDEMIA NEC/NOS[ICD9: 272.4] Diagnosis: HYPERTENSION[ICD9: 401.9] Diagnosis: ANEMIA NOS[ICD9: 285.9] Yvette MERCADOLINE Michael VILLAVICENCIO [address] [address] CPT-4: 73543 03/18/2012 OFFICE/OUTPATIENT VISIT EST Diagnosis: CERUMEN IMPACTION[ICD9: 380.4] Diagnosis: OTALGIA[ICD9: 388.70] Reyna Eldon YVETTE DAVID [address] [address] CPT-4: 36547 2012 OFFICE/OUTPATIENT VISIT EST Diagnosis: COUGH[ICD9: 786.2] Diagnosis: Cystocele[ICD9: 618.01] Diagnosis: VAGINITIS[ICD9: 623.5] Diagnosis: ROUTINE GYNE EXAM[ICD9: V72.31] Yvette MERCADOLINE CristiGarrett JOANN [address] [address] CPT-4: 72373 09/27/2011 SPECIMEN HANDLING Diagnosis: [ICD9: ] Diagnosis: [ICD9: ] Diagnosis: [ICD9: ] Diagnosis: [ICD9: ] Yvette Taylormaye YVETTE CristiGarrett JOANN [address] [address] CPT-4: 89129 09/27/2011 OFFICE/OUTPATIENT VISIT EST Diagnosis: PHARYNGITIS, ACUTE[ICD9: 462] Diagnosis: URI, ACUTE[ICD9: 465.9] Yvette [facility] [address] [place] [phone] CPT-4: 74111 09/13/2011 OFFICE/OUTPATIENT VISIT EST Diagnosis: PHARYNGITIS, ACUTE[ICD9: 462] Diagnosis: COUGH[ICD9: 786.2] Yvette [facility] [address] [place] [phone] CPT-4: 35953 08/07/20 11 ([id number]) OFFICE/OUTPATIENT VISIT EST Yvette Rodriguez [facility] [address] [place] [phone] CPT-4: 79253 01/04/2011 ([id number]) OFFICE/OUTPATIENT VISIT, EST Yvette Rodriguez [facility] [address] [place] [phone] CPT-4: 71877 02/14/2010 ([id number]) OFFICE/OUTPATIENT VISIT, EST Yvette Rodriguez [facility] [address] [place] [phone] CPT-4: 03800 02/07/2010 Plan of Care Planned Activity Notes [...] in AM and add singulair at night [email or web address] ICD-9 : 786.2 ICD-10 : R05.9 08/02/2022 Patient Education: Singulair- Opt[employer] Coupon [phone] [email or web address] Completed 08/02/2022 Visit Diagnosis Plan: Atrial fibrillation and flutter Discussion: Increase metoprolol to 50mg po BID Increase amiodarone to 200mg po BID Fwup 1month Defers flu shot ICD-9 : 427.31 ICD-10 : I48.91 06/26/2022 Appointment: Yvette David WPtel: [address] [phone] FOLLOW UP 06/26/2022 Patient Education: metoprolol succinate- [employer] Co upon [id number] [email or web address]://www.[email or web address]/[facility]/resources/getResource/61/[email or web address] Completed 06/26/2022 Referral: Lino Davila [address] [place] [address] [id number] [place] Referral Completed 05/23/2022 Visit Diagnosis Plan: [...] : J44.9 05/22/2022 Appointment: Yvette David WPtel: [address] [place], [place] [phone] US FOLLOW UP 05/22/2022 Referral: Anuj Eng WPtel: #1 [facility] Lior Holm [id number] US Referral Appointment Confirmed 03/08/2022 Appointment: Yvette David WPtel: [address] [place], [place] [phone] US LAB 02/28/2022 Visit Diagnosis Plan: Unspecified [...] : I48.91 02/27/2022 Appointment: Yvette David WPtel: [address] [place], [place] [phone] ACUTE ILLNESS 02/27/2022 Care Plan: Referral Order SNOMED-CT : 30 2336030 Pending 02/27/2022 Care Plan: Referral Order SNOMED-CT : 30 4802645 Pending 02/27/2022 Appointment: Yvette David WPtel: [address] [place], [place] [phone] US CANCELED 12/06/2021 Visit Diagnosis Plan: Anxiety Discussion: Improving wi th effexor--wants to keep dose the same ICD-9 : 300.00 ICD-10 : F41.9 11/23/2021 Appointment: Yvette David WPtel: [address] [place], [place] [phone] US FOLLOW UP 11/23/2021 Visit Diagnosis Plan: Anxiety Discussion: Restart effe xor XR at 37.5mg daily Stress Reducers Fwup 6 weeks No tremors noted today ICD-9 : 300.00 ICD-10 : F41.9 10/12/2021 Appointment: Yvette David WPtel: [address] [phone] ACUTE ILLNESS 10/12/2021 Visit Plan: Supportive [...] : T16.2XXA 08/09/2021 Appointment: [facility]el[facility] [address] [facility] AC[facility] I[facility] 08/09/2021 Patient Education: Patient Medication [...] : R73.9 07/28/2021 Appointment: Yvette David WPtel: [address] [place], [place] [address] FOLLOW UP 07/28/2021 Appointment: Yvette David WPtel: [address] [place] [address] US LAB 07/20/2021 Visit Diagnosis Plan: Grieving Discussion: Restart Eff exor XR 37.5mg po q AM ICD-9 : 309.0 ICD-10 : F43.21 05/12/2021 Visit Diagnosis Plan: Inflamed seborrheic keratosis Di scussion: Cryotherapy as above ICD-9 : 702.11 ICD-10 : L82.0 05/12/2021 Appointment: Yvette David WPtel: [address] [place], [place] [phone] US FOLLOW UP 05/12/2021 Appointment: Yvette David WPtel: [address] [place] [address] US assisted patient with opening her eye drops for cataract liane an (km) CANCELED 03/22/2021 Visit Diagnosis Plan: Rhus dermatitis Discussion: Marielena log 40mg IM x1 Can continue TAC ICD-9 : 692.6 ICD-10 : L25.5 03/08/2021 Appointment: Yvette David WPtel: [address] [place] [address] US FOLLOW UP 03/08/2021 Visit Diagnosis Plan: [...] ICD-10 : I48.20 02/03/2021 Appointment: Yvette Davidtel: [address] [place], [place] [phone] FOLLOW UP 02/03/2021 Appointment: Yvette David WPtel: [address] [place], [place] [phone] US LAB 01/31/2021 Visit Diagnosis Plan: Chronic [...] H61.20 01/04/2021 Appointment: Yvette David WPtel: [address] [phone] ACUTE ILLNESS 01/04/2021 Appointment: Yvette David WPtel:[phone] [facility] [facility] [facility] BP CHECK 10/05/2020 Visit Diagnosis Plan: Chronic atrial fibrillation Disc ussion: Due to symptomatic bradycardia will decrease metoprolol ER to 25mg po BID Bring by BP and pulse readings in 2 weeks ICD-9 : 427.31 ICD-10 : I48.20 09/20/2020 Appointment: Yvette David WPtel: [address] [place], [place] [phone] ACUTE ILLNESS 09/20/2020 Appointment: Yvette David WPtel: [phone] NURSE SERVICES 05/28/2020 Visit Diagnosis Plan: Dysplastic nevus of right lower extremity Discussion: Removal as above and sent to pathology Return in 10 days for suture removal ICD-9 : 216.7 ICD-10 : D23.71 05/19/2020 Appointment: Yvette David WPtel: [facility] FOLLOW UP 05/19/2020 Visit Diagnosis Plan: [...] 05/11/2020 Visit Diagnosis Plan: Encounter for [facility] adult medical examination without abnormal [...] I48.20 05/11/2020 Appointment: Yvette David WPtel: [phone] [phone] Annual Well Visit 05/11/2020 Appointment: Yvette David WPtel: [address] [phone] US LAB 05/05/2020 Visit Diagnosis Plan: Chronic [...] I48.0 02/11/2020 Appointment: Yvette David WPtel: [address] [phone] US FOLLOW UP 02/11/2020 Visit Diagnosis Plan: [...] : L29.8 01/28/2020 Appointment: Yvette David WPtel: [address] [place], [place] [address] ACUTE ILLNESS 01/28/2020 Patient Education: hydroxyzine HCl- [employer] Coupon [id number] https://www.ZALORA/samplemd/resources/getResource/61/[email or web address]-[email or web address] Completed 01/28/2020 Visit Diagnosis Plan: Diarrhea, unspecified [...] : R42 01/05/2020 Appointment: Yvette David WPtel: [address] [place], [place] [address] ACUTE ILLNESS 01/05/2020 Appointment: Yvette David WPtel: [address] [place], [place] [address] US LAB 12/05/2019 Appointment: Yvette David WPtel: [address] [place], [place] [address] US LAB 11/05/2019 Visit Diagnosis Plan: Dizziness [...] N28.9 10/29/2019 Appointment: Yvette David WPtel: [address] [phone] US FOLLOW UP 10/29/2019 Appointment: Yvette David WPtel: [address] [place] [phone] US UA 10/23/2019 Appointment: Yvette David WPtel: [address] [phone] US LAB 10/21/2019 Visit Diagnosis Plan: [...] ICD-10 : H61.20 10/20/2019 Appointment: Natalee Gray [address] [place], [place] [address] ACUTE ILLNESS 10/20/2019 Patient Education: meclizine- [employer] Coupon [phone] https://www.[facility].com/samplemd/resources/getResource/61/28f90597-153o-90mb-st Completed 10/20/2019 Appointment: Yvette David WPtel: [address] [phone] US Canceled, Said patient was feeling [...] : I48.0 07/07/2019 Appointment: Yvette David WPtel: [address] [place], [place] [phone] FOLLOW UP 07/07/2019 Visit Diagnosis Plan: Essential (primary) hypertension Discussion: Increase HCTZ to 25mg daily Call in 1 week with BP readings ICD-9 : 401.9 ICD-10 : I10 05/01/2019 Appointment: Yvette David WPtel: [address] [place], [place] [phone] FOLLOW UP 05/01/2019 Visit Diagnosis Plan: Essential (primary) hypertension Discussion: Change metoprolol to 50mg po q AM and 100mg po q PM Add HCTZ 12.5mg po q AM Monitor home BP and pulse Recheck 2 weeks Start Cardiac Rehab or Wellness ICD-9 : 401.1 ICD-10 : I10 04/15/2019 Appointment: Yvette David WPtel: [address] [place], [place] [phone] FOLLOW UP 04/15/2019 Patient Education: hydrochlorothiazide- [employer] Cou ministerio [id number] https://www.[facility].com/samplenh/resources/getResource/61/3d8h5408-x33p-092i-tf Completed 04/15/2019 Appointment: Yvette David WPtel: [phone] US LAB 04/04/2019 Care Plan: US EXAM CHEST US of left breast LOINC : 31266-2 Pending 03/17/2019 Visit Diagnosis Plan: Hypothyroidism, unspecified Disc ussion: Stable ICD-9 : 244.9 ICD-10 : E03.9 11/26/2018 Visit Diagnosis Plan: Paroxysmal atrial fibrillation D iscussion: Stable ICD-9 : 427.31 ICD-10 : I48.0 11/26/2018 Visit Diagnosis Plan: Encounter for [facility] adult medical examination without abnormal findings Discussion: Mediterranean diet Combinati on of cardio and weight bearing exercise Recommend Shingrix Lab and fwup in March ICD-9 : V70.9 ICD-10 : Z00.00 11/26/2018 Visit Diagnosis Plan: Essential (primary) hypertension Discussion: Stable ICD-9 : 401.1 ICD-10 : I10 11/26/2018 Appointment: Yvette David WPtel: [address] [place], [place] [phone] Annual Well Visit 11/26/2018 Appointment: Yvette David WPtel: [address] [place] [phone] LAB 10/07/2018 Visit Diagnosis Plan: Presence of [...] : H91.92 08/08/2018 Appointment: Yvette David WPtel: [address] [place] [address] FOLLOW UP 08/08/2018 Appointment: Natalee Gray [address] [place] [address] CANCELED 07/18/2018 Visit Diagnosis Plan: Sudden idiopathic [...] : I10 06/25/2018 Appointment: Yvette Davidtel: [address] [phone] [facility] Follow Up 06/25/2018 Patient Education: Patient Medication Summary Completed 06/25/2018 Appointment: Yvette Davidtel: [phone] BP CHECK 05/20/2018 Patient Education: Patient [...] ICD-10 : I10 05/10/2018 Appointment: Yvette Davidtel: [address] [place], [place] [phone] FOLLOW UP 05/10/2018 Patient Education: Patient Medication [...] : I10 05/03/2018 Appointment: Yvette Davidl: [phone] [place] [phone] ACUTE ILLNESS 05/03/2018 Patient Education: Patient Medication [...] E03.9 04/22/2018 Appointment: Yvette David WPtel: [address] [place] [phone] FOLLOW UP 04/22/2018 Patient Education: Patient Medication [...] ICD-10 : B02.9 03/05/2018 Appointment: Natalee Gray [address] [place] [address] ACUTE ILLNESS 03/05/2018 Patient Education: Patient Medication [...] ICD-10 : H61.23 02/19/2018 Appointment: Natalee Gray [address] [place] [address] ACUTE ILLNESS 02/19/2018 Patient Education: Patient Medication Summary Completed 02/19/2018 Appointment: Yvette David WPtel: [address] [place] [address] LAB 02/13/2018 Patient Education: Patient Medication Summary [...] : G47.33 10/18/2017 Appointment: Yvette David WPtel: [address] [place], [place] [phone] FOLLOW UP 10/18/2017 Patient Education: Patient Medication Summary Completed 10/18/2017 Appointment: Yvette David WPtel: [phone] LAB 10/15/2017 Patient Education: Patient Medication Summary [...] ICD-10 : H61.23 07/24/2017 Appointment: Natalee Gray [address] [place] [address] ACUTE ILLNESS 07/24/2017 Patient Education: Patient Medication Summary Completed 07/24/2017 Referral: Jey Kaye WPtel: [address] [place] [id number] [place] Referral Initiated 07/05/2017 Patient Education: Patient [...] R00.0 06/14/2017 Appointment: Yvette David WPtel: [address] [phone] FOLLOW UP 06/14/2017 Patient Education: Patient Medication Summary Completed 06/14/2017 Care Plan: Referral Order SNOMED-CT : 30 2379340 Pending 06/14/2017 Visit Plan: ERx for Valtrex, system won' t allow ERx for Prednisone so it is called 10mg 2 po bid x 3 days then 1 po bid x 3 days then 1 po daily x 3 days then 1/2 po daily x 3 days then d/c She declines gabapentin or pain meds Anticipatory guidance discussed. 06/01/2017 Appointment: Demi Rocha WPtel: [phone] [facility] ACUTE ILLNESS 06/01/2017 Patient Education: [...] D51.8 03/30/2017 Appointment: Yvette David WPtel: [address] [facility] 7/6 lm ~sl FOLLOW UP 03/30/2017 [...] : R53.83 01/17/2017 Appointment: Yvette David WPtel: [facility] 01/16 lm`sl FOLLOW UP 01/17/2017 Patient [...] G62.9 12/18/2016 Visit Diagnosis Plan: Encounter for [facility] adult medical examination without abnormal findings Discussion: Increase activity and contin ue healthy eating Continune using urinary incontinence pads at night for nocturia Reviewed labs ICD-9 : V70.9 ICD-10 : Z00.00 12/18/2016 Appointment: Yvette Davidtel: [phone] 11/13 confirmed ~sl Annual Well Visit 12/18/2016 Patient Education: Patient Medication Summary Completed 12/18/2016 Appointment: Yvette David WPtel: [address] [place], [place] [phone] US LAB 12/11/2016 Patient Education: Patient Medication [...] ICD-10 : R05 11/02/2016 Appointment: Yvette Davidtel: [phone] US FOLLOW UP 11/02/2016 Appointment: Yvette Davidtel: [address] [place], [place] [phone] US CANCELED 11/02/2016 Patient Education: Patient Medication Summary Completed 11/02/2016 Visit Diagnosis Plan: Acute upper respiratory infectio n, unspecified Discussion: Rx as above Discussed OTC meds and supportive care Notify if not improving so regimen can be changed before her upcoming trip in 2 weeks ICD-9 : 465.9 ICD-10 : J06.9 10/24/2016 Appointment: Elidia Calix [address] [place], [place] [id number] ACUTE ILLNESS 10/24/2016 Patient Education: Patient Medication Summary Completed 10/24/2016 Patient Education: Patient Medication Summary Completed 06/26/2016 Visit Plan: Office dip wnl/BP wnl Does s eem likely to be viral GI illness Supportive care with rxs as above Soft and bland diet Will need bloodwork if not improving 02/07/2016 Appointment: Elidia Calix [address] [place], [place] [address] ACUTE ILLNESS 02/07/2016 Patient Education: Patient Medication Summary Completed 02/07/2016 Patient Education: Patient Medication Summary Completed 07/01/2015 Appointment: Yvette David WPtel: [address] [place], [place] [phone] US LAB 05/27/2015 Patient Education: Patient Medication Summary Completed 05/27/2015 Visit Plan: Trial of Gralise 300mg at be dtiky with 4 oz tonic water Sharron's solution soaks to feet Check TSH, Free T4, B12, CMP, HbA1C now Call in 2weeks 05/26/2015 Appointment: Yvette David WPtel: [address] [place], [place] [phone] 05/25/2015 confirmed w patient ACUTE ILLNESS 10/2014 Patient Education: Patient Medication Summary Completed 05/26/2015 Appointment: Yvette David WPtel: [phone] US Stool lab 02/19/2015 Patient Education: Patient Medication Summary Completed 02/19/2015 Appointment: Yvette David WPtel: [phone] US Stool lab 01/20/2015 Patient Education: Patient Medication Summary Completed 01/20/2015 Appointment: Yvette David WPtel: [phone] [phone] US LAB 12/15/2014 Patient Education: Patient Medication Summary Completed 12/15/2014 Appointment: Earline Morris WPtel: [address] [place], [place] [address] ACUTE ILLNESS 11/30/2014 Patient Education: Patient Medication Summary Completed 11/30/2014 Appointment: Yvette David WPtel: [address] [place], [place] [phone] US LAB 11/26/2014 Patient Education: Patient Medication Summary Completed 11/26/2014 Appointment: Yvette David WPtel: [address] [place], [place] [phone] US LAB 08/14/2014 Patient Education: Patient Medication Summary Completed 08/14/2014 Visit Plan: Defers bone density Proceed with colonoscopy Change omeprazole to protonix Due for fasting lab next month 07/23/2014 Appointment: Yvette David WPtel: [address] [place], [place] [phone] ACUTE ILLNESS 07/23/2014 Patient Education: Patient Medication Summary Completed 07/23/2014 Patient Education: Patient Medication Summary Completed 06/05/2014 Appointment: Earline Morris WPtel: [address] [place], [place] [phone] FOLLOW UP 03/09/2014 Patient Education: Patient Medication Summary Completed 03/09/2014 Appointment: Yvette David WPtel: [address] [place], [place] [phone] ACUTE ILLNESS 02/05/2014 Patient Education: Patient Medication Summary Completed 02/05/2014 Appointment: Yvette David WPtel: [address] [place], [place] [phone] US LAB 02/04/2014 Patient Education: Patient Medication Summary Completed 02/04/2014 Appointment: Earline Morris WPtel: [address] [place], [place] [phone] ACUTE ILLNESS 05/12/2013 Patient Education: Patient Medication Summary Completed 05/12/2013 Visit Plan: MRI results discussed Discus sed epidural injections SI joint injection as above Continue Celebrex 200mg daily 04/07/2013 Appointment: Yvette David WPtel: [address] [place], [place] [phone] 04/04 left message FOLLOW UP 04/07/2013 Patient Education: Patient Medication Summary Completed 04/07/2013 Visit Plan: Restart PT and epidural--may need updated MRI of L/S spine Tylenol prn Celebrex 200mg daily 03/31/2013 Appointment: Yvette David WPtel: [address] [place], [place] [phone] ACUTE ILLNESS 03/31/2013 Patient Education: Patient Medication Summary Completed 03/31/2013 Visit Plan: Injection to hip as above Pt will take Vimovo 500/20mg po daily for next week Call in 1wk on both hip and stomach Discussed that likely has arthritis in hip as well 10/09/2012 Appointment: Yvette David WPtel: [address] [place], [place] [phone] 10/08 Left message ACUTE ILLNESS 10/09/2012 Patient Education: Patient Medication Summary Completed 10/09/2012 Visit Plan: See urology--Dr. Hutchinson for cystocele Start Premarin vaginal Cream 1/2 gm vaginally twice weekly then repeat PAP in 3mos Continue nexium for 4 more weeks then start Zantac daily--notify if cough returns 03/28/2012 Appointment: Yvette David WPtel: [address] [place], [place] [phone] PAP 03/28/2012 Patient Education: Patient Medication Summary Completed 03/28/2012 Appointment: Yvette David WPtel: [address] [place], [place] [phone] US LAB 03/18/2012 Patient Education: Patient Medication Summary Completed 03/18/2012 Appointment: Reyna Colón WPtel: [address] [place], [place] [address] OFFICE SURGERY 2012 Patient Education: Patient Medication Summary Completed 2012 Visit Plan: Pap done Kegel exercises--de fers meds or surgery eval at this time Mammo due in January DC symbicort 09/27/2011 Appointment: Yvette David WPtel: [address] [place], [place] [phone] FOLLOW UP 09/27/2011 Patient Education: Patient Medication Summary Completed 09/27/2011 Visit Plan: Symbicort 160/4.5 2 p BID 09/13/2011 Appointment: Yvette David WPtel: [address] [place], [place] [phone] ACUTE ILLNESS 09/13/2011 Patient Education: Patient Medication Summary Completed 09/13/2011 Visit Plan: Cefdinir and medrol dose pac k. Discussed if no improvement by Sunday will obtain chest x-ray and CBC with mycoplasma. 08/07/2011 Appointment: Reyna Colón WPtel: [address] [place], [place] [phone] ACUTE ILLNESS 08/07/2011 Patient Education: Patient Medication Summary Completed 08/07/2011 Appointment: Yvette David WPtel: [address] [place] [phone] 07/13/2011 Patient Education: Patient Medication Summary Completed 07/13/2011 Appointment: Yvette David WPtel: [address] [place], [place] [phone] LAB 03/13/2011 Patient Education: Patient Medication Summary Completed 03/13/2011 Appointment: Yvette David WPtel: [address] [place], [place] [phone] BP CHECK 02/06/2011 Patient Education: Patient Medication Summary Completed 02/06/2011 Appointment: Yvette David WPtel: [address] [place], [place] [phone] BP CHECK 01/20/2011 Patient Education: Patient Medication Summary Completed 01/20/2011 Appointment: Yvette David WPtel: [address] [place], [place] [phone] BP CHECK 01/12/2011 Patient Education: Patient Medication Summary Completed 01/12/2011 Visit Plan: Increase Synthroid to 75mcg po daily Increase fish oil to BID Start daily Toprol XL 12.5mg BP check in 1wk TSH and Free T4 in 2mos. 01/04/2011 Appointment: Yvette David WPtel: [address] [place] [phone] FOLLOW UP 01/04/2011 Patient Education: Patient Medication Summary Completed 01/04/2011 Appointment: Yvette David WPtel: [address] [place], [place] [phone] LAB 12/16/2010 Patient Education: Patient Medication Summary Completed 12/16/2010 Visit Plan: Start PT May need MRI 02/14/2010 Appointment: Yvette David WPtel: [address] [place], [place] [phone] OFFICE SURGERY 02/14/2010 Patient Education: Patient Medication [...] Reyna [facility]Ptel[facility] [facility] [facility] 02/07/2010 Patient Education: Patient Medication Summary Completed 02/07/2010 Appointment: Yvette David WPtel: [address] [facility] [facility] 12/22/2009 Patient Education: Patient Medication [...] data not found Advance Directives Filename Date [id number] 06/03/2012
--- OUTSIDE RECORDS SUMMARY | 2022-08-14 14:04 | XMS REPORT | CCD ---
Author Author Lucille David D.O. Organization [facility] Address [address] [place] [address] Phone Care Team Providers Care Patient Scheduling Manager Name Role Phone Yvette David D.O., PP Unavailable CCM Unavailable Summary Purpose Interface Exchange Insurance Providers Payer name Policy type / Coverage type Covered green party ID Effective Begin Date Effective End Date WPS MEDICARE PART B [place] Medicare Part B [id number] Unknown Cigna Medicare Part B [id number] Unknown Family History Family History data not found Social History Social History Element Codes Description Effective Dates Tobacco history SNOMED CT: [id number] Has never smoked or chewed tobacco 05/26/2015 [...] ICD-10: G62.9 ICD-9: 355.9 12/18/2016 Active 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 ICD-10: Z79.899 ICD-9: V58.69 [...] Effexor XR 75 mg capsule,extended release RxNorm: 605798 Take 1 Capsule(s) Oral QPM replaces 37.5mg done 08/02/2022 10/30/2022 Active Singulair 10 mg tablet RxNorm: 283100 Take 1 Tablet(s) Oral QPM 05/202201/28/2023 Active metoprolol succinate ER 50 mg tablet,extended release 24 hr RxNorm: 523899 1 Tablet(s) Oral two times a day 06/26/2022 12/22/2022 Active amiodarone 200 mg tablet RxNorm: 882111 Take 1 Tablet(s) Oral t wo times a day 06/26/2022 06/26/2022 Inactive venlafaxine ER 37.5 mg capsule,extended release 24 hr RxNorm : 236157 Take 1 Capsule(s) Oral QAM 06/16/2022 08/01/2022 Inactive simvastatin 20 mg tablet RxNorm: 547146 Take 1 Tablet(s) Oral QD 11/21/2022 Active Xarelto 20 mg tablet RxNorm: 0780307 Take 1 Tablet(s) Oral QD 05/22 No Stop Date Active amiodarone 200 mg tablet RxNorm: 334627 Take 1 Tablet(s) Oral QD 06/25/2022 Inactive Euthyrox 88 mcg tablet RxNorm: 488780 TAKE 1 TABLET BY MOUTH ONCE DAILY - DUE FOR UPDATED LAB 05/21/2022 08/18/2022 Active Breztri Aerosphere 160 mcg-9mcg-4.8mcg/actuation HFA a erosol inhaler RxNorm: 0908904 2 Puff(s) Inhalation two times a day in the morning an d evening 05/01/2022 05/01/2022 Inactive Breztri Aerosphere 160 mcg-9mcg-4.8mcg/actuation HFA a erosol inhaler RxNorm: 4483366 2 Puff(s) Inhalation two times a day in the morning an d evening 05/01/2022 05/30/2022 Inactive diltiazem CD 120 mg capsule,extended release 24 hr RxNorm: 8 94887 TAKE 1 CAPSULE BY MOUTH TWICE DAILY REPLACES 180MG DOSE 04/17/2022 10/13/2022 Active pantoprazole 40 mg tablet,delayed release RxNorm: 512032 Take 1 Tablet(s) Oral QD 04/17/2022 10/13/2022 Active Xarelto 10 mg tablet RxNorm: 8863967 Take 1 Tablet(s) Oral QD 03/2105/21/2022 Inactive simvastatin 20 mg tablet RxNorm: 003248 Take 1 Tablet(s) Oral QD 02/23/2022 Inactive levothyroxine 88 mcg tablet RxNorm: 873590 Take 1 table t by mouth once daily due for updated lab 02/22/2022 02/22/2022 Inactive Cartia XT 120 mg capsule,extended release RxNorm: 699304 TAKE 1 CAPSULE BY MOUTH TWICE DAILY REPLACES 180MG DOSE 01/16/2022 01/16/2022 Inactive pantoprazole 40 mg tablet,delayed release RxNorm: 963066 Take 1 Oral QD 12/15/2021 12/15/2021 Inactive scopolamine 1 mg over 3 days transdermal patch RxNorm: 77489 2 Take 1 Application Transdermal Q3D as needed 11/23/2021 06/25/2022 Inactive Effexor XR 37.5 mg capsule,extended release RxNorm: 037100 1 Capsule(s) Oral QAM 11/23/2021 11/23/2021 Inactive levothyroxine 88 mcg tablet RxNorm: 346385 Take 1 tablet by alvaro th once daily 11/21/2021 11/21/2021 Inactive diltiazem CD 120 mg capsule,extended release 24 hr RxNorm: 8 03043 TAKE 1 CAPSULE BY MOUTH TWICE DAILY REPLACES 180MG DOSE 10/17/2021 10/17/2021 Inactiv e pantoprazole 40 mg tablet,delayed release RxNorm: 238615 Take 1 Tablet(s) Oral QD 10/17/2021 10/17/2021 Inactive Effexor XR 37.5 mg capsule,extended release RxNorm: 633755 1 Capsule(s) Oral QAM 10/12/2021 11/22/2021 Inactive Xarelto 10 mg tablet RxNorm: 6199663 Take 1 Tablet(s) Oral QD 09/1409/14/2021 Inactive metoprolol succinate ER 50 mg tablet,extended release 24 hr RxNorm: 516243 Take 1/2 (one-half) tablet by mouth twice daily 09/14/2021 03/12/2022 Inact beto simvastatin 20 mg tablet RxNorm: 663740 Take 1 Tablet(s) Oral QD 08/30/2021 Inactive levothyroxine 88 mcg tablet RxNorm: 331421 Take 1 tablet by [facility] once daily 08/28/2021 08/28/2021 Inactive fluticasone propionate 50 mcg/actuation nasal spray,suspensi on RxNorm: 9736668 Take 1 Warren Nasal QD in each nostrilas needed 08/09/2021 09/07/2021 I nactive pantoprazole 40 mg tablet,delayed release RxNorm: 628868 Take 1 Tablet(s) Oral QD 07/19/2021 07/19/2021 Inactive Xarelto 10 mg tablet RxNorm: 2200153 Take 1 Tablet(s) Oral QD 06/2906/29/2021 Inactive Euthyrox 88 mcg tablet RxNorm: 091010 Take 1 tablet by mouth on ce daily 05/24/2021 05/24/2021 Inactive Effexor XR 37.5 mg capsule,extended release RxNorm: 724002 1 Capsule(s) Oral QAM 05/12/2021 07/27/2021 Inactive Xarelto 10 mg tablet RxNorm: 2706142 Take 1 tablet by [facility] once daily Take 1 Tablet(s) Oral QD 04/19/2021 04/19/2021 Inactive metoprolol succinate ER 50 mg tablet,extended release 24 hr RxNorm: 380978 1/2 Tablet(s) Oral two times a day 04/12/2021 04/12/2021 Inactive d ecrease in dose of 1/2 tablet twice daily metoprolol succinate ER 50 mg tablet,extended release 24 hr RxNorm: 772821 Take 1/2 (one-half) tablet by mouth twice daily 04/12/2021 10/11/2021 Inact beto simvastatin 20 mg tablet RxNorm: 803835 Take 1 Tablet(s) Oral QD 03/07/2021 Inactive prednisone 10 mg tablet RxNorm: 990070 Take 1 Tablet(s) Oral tw o times a day 03/01/2021 03/01/2021 Inactive triamcinolone acetonide 0.1 % topical cream RxNorm: 3035377 Apply 1 Application Topical two times a day 03/01/2021 03/01/2021 Inactive prednisone 10 mg tablet RxNorm: 888529 Take 1 Tablet(s) Oral tw o times a day 03/01/2021 03/03/2021 Inactive triamcinolone acetonide 0.1 % topical cream RxNorm: 4250101 Apply 1 Application Topical two times a day 03/01/2021 03/01/2021 Inactive Euthyrox 88 mcg tablet RxNorm: 623689 Take 1 tablet by mouth on ce daily 02/22/2021 02/22/2021 Inactive Effexor XR 37.5 mg capsule,extended release RxNorm: 694578 1 Capsule(s) Oral QAM 02/03/2021 02/02/2021 Inactive Effexor XR 37.5 mg capsule,extended release RxNorm: 074117 1 Capsule(s) Oral QAM 02/03/2021 04/03/2021 Inactive simvastatin 20 mg tablet RxNorm: 869347 Take 1 tablet by mouth once daily 1 01/25/2021 01/25/2021 Inactive Cardizem CD 120 mg capsule,extended release RxNorm: 250455 1 Capsule(s) Oral two times a day replaces 180mg dose 01/19/2021 01/19/2021 Inactive Protonix 40 mg tablet,delayed release RxNorm: 715408 1 Tablet(s ) Oral QD 01/17/2021 01/17/2021 Inactive Effexor XR 37.5 mg capsule,extended release RxNorm: 825270 1 Capsule(s) Oral QAM 01/04/2021 02/02/2021 Inactive scopolamine 1 mg over 3 days transdermal patch RxNorm: 37668 2 1 Application Transdermal behind ear for vertigo 01/04/2021 01/03/2021 Inactive scopolamine 1 mg over 3 days transdermal patch RxNorm: 44286 2 1 Application Transdermal behind ear for vertigo 01/04/2021 01/04/2021 Inactive metoprolol succinate ER 50 mg tablet,extended release 24 hr RxNorm: 199976 1/2 Tablet(s) Oral two times a day 12/29/2020 12/28/2020 Inactive metoprolol succinate ER 50 mg tablet,extended release 24 hr RxNorm: 573111 1/2 Tablet(s) Oral two times a day 12/29/2020 12/29/2020 Inactive d ecrease in dose of 1/2 tablet twice daily Xarelto 10 mg tablet RxNorm: 3361663 Take 1 tablet by mouth once daily 12/29/2020 03/29/2021 Inactive Xarelto 10 mg tablet RxNorm: 9263527 Take 1 tablet by mouth once daily 11/26/2020 12/28/2020 Inactive simvastatin 20 mg tablet RxNorm: 890750 Take 1 tablet by mouth once daily 11/26/2020 01/24/2021 Inactive Synthroid 88 mcg tablet RxNorm: 440481 Take 1 tablet by mouth o nce daily 10/21/2020 10/21/2020 Inactive simvastatin 20 mg tablet RxNorm: 695856 Take 1 tablet by mouth once daily 09/30/2020 11/25/2020 Inactive Xarelto 10 mg tablet RxNorm: 2392793 Take 1 tablet by mouth once daily 08/26/2020 11/23/2020 Inactive metoprolol succinate ER 50 mg tablet,extended release 24 hr RxNorm: 749446 1 Tablet(s) Oral two times a day 08/05/2020 11/03/2020 Inactive simvastatin 20 mg tablet RxNorm: 228079 Take 1 tablet by mouth once daily 07/30/2020 09/27/2020 Inactive Synthroid 88 mcg tablet RxNorm: 791545 Take 1 tablet by mouth o nce daily 07/27/2020 10/20/2020 Inactive Protonix 40 mg tablet,delayed release RxNorm: 750848 1 Tablet(s ) Oral QD 07/26/2020 10/24/2020 Inactive Xarelto 10 mg tablet RxNorm: 4740194 1 Tablet(s) Oral QD 06/03/2020 1 10/26/2019 Inactive Cardizem CD 120 mg capsule,extended release RxNorm: 366026 1 Capsule(s) Oral two times a day replaces 180mg dose 05/11/2020 11/07/2020 Inactive Pradaxa 75 mg capsule RxNorm: 5446778 1 Capsule(s) Oral two time s a day 05/11/2020 05/11/2020 Inactive meclizine 25 mg tablet RxNorm: 325218 1 Tablet(s) Oral every ni ght at bedtime 05/05/2020 10/11/2021 Inactive simvastatin 20 mg tablet RxNorm: 837899 Take 1 tablet by mouth once daily 05/04/2020 05/10/2020 Inactive simvastatin 20 mg tablet RxNorm: 730143 TAKE 1 TABLET BY MOUTH ONCE DAILY 04/29/2020 09/19/2020 Inactive Synthroid 88 mcg tablet RxNorm: 563534 TAKE 1 TABLET BY MOUTH O NCE DAILY 04/20/2020 07/18/2020 Inactive diltiazem CD 180 mg capsule,extended release 24 hr RxNorm: 8 59926 TAKE 1 CAPSULE BY MOUTH TWICE DAILY 04/05/2020 05/10/2020 Inactive simvastatin 20 mg tablet RxNorm: 009271 TAKE 1 TABLET BY MOUTH ONCE DAILY 02/24/2020 04/23/2020 Inactive aspirin 325 mg tablet RxNorm: 467459 1 Tablet(s) Oral QD 02/11/2020 0 05/10/2020 Inactive hydroxyzine HCl 10 mg tablet RxNorm: 180476 1 Tablet(s) Oral th ree times a day 01/28/2020 05/10/2020 Inactive diltiazem CD 180 mg capsule,extended release 24 hr RxNorm: 8 00510 TAKE 1 CAPSULE BY MOUTH TWICE DAILY 01/19/2020 04/04/2020 Inactive spironolactone 25 mg tablet RxNorm: 271186 1 Tablet(s) Oral QOD replaces Triam/HCTZ 01/15/2020 01/14/2020 Inactive spironolactone 25 mg tablet RxNorm: 010720 1 Tablet(s) Oral QOD replaces Triam/HCTZ 01/15/2020 01/26/2020 Inactive prednisone 20 mg tablet RxNorm: 589338 1 Tablet(s) Oral QD 01/12/20 20 01/14/2020 Inactive prednisone 20 mg tablet RxNorm: 418252 1 Tablet(s) Oral QD 01/12/20 20 01/11/2020 Inactive Benadryl 25 mg capsule RxNorm: 7478394 1 Capsule(s) Oral every n ight at bedtime 01/08/2020 05/10/2020 Inactive Pepcid 20 mg tablet RxNorm: 356636 1 Tablet(s) Oral two times a day 01/08/2020 07/25/2020 Inactive Sarna Original 0.5 %-0.5 % lotion RxNorm: 401965 Topical 0 10/11/2021 Inactive Zyrtec 10 mg tablet RxNorm: 9969679 1 Tablet(s) Oral QAM 01/08/2020 0 05/10/2020 Inactive metoprolol succinate ER 50 mg tablet,extended release 24 hr RxNorm: 316841 1 Tablet(s) Oral two times a day 01/05/2020 04/04/2020 Inactive Protonix 40 mg tablet,delayed release RxNorm: 034869 TA KE 1 TABLET BY MOUTH ONCE DAILY 12/29/2019 05/10/2020 Inactive triamterene 37.5 mg-hydrochlorothiazide 25 mg tablet RxNorm: 018368 TAKE 1/2 (ONE-HALF) TABLET BY MOUTH EVERY OTHER DAY 12/24/2019 01/14/2020 Inact beto triamterene 37.5 mg-hydrochlorothiazide 25 mg tablet RxNorm: 567087 1/2 Tablet(s) Oral QD 12/12/2019 01/26/2020 Inactive diltiazem CD 180 mg capsule,extended release 24 hr RxNorm: 8 34403 TAKE 1 CAPSULE BY MOUTH TWICE DAILY 12/03/2019 01/18/2020 Inactive Eliquis 2.5 mg tablet RxNorm: 5187198 1 Tablet(s) Oral two times a day 11/25/2019 02/10/2020 Inactive simvastatin 20 mg tablet RxNorm: 026559 TAKE 1 TABLET BY MOUTH ONCE DAILY 11/25/2019 02/22/2020 Inactive triamterene 37.5 mg-hydrochlorothiazide 25 mg tablet RxNorm: 874894 1/2 Tablet(s) Oral QOD 11/06/2019 12/11/2019 Inactive triamterene 37.5 mg-hydrochlorothiazide 25 mg tablet RxNorm: 163457 1/2 Tablet(s) Oral QD 10/22/2019 10/28/2019 Inactive meclizine 25 mg tablet RxNorm: 668275 1 Tablet(s) Oral every ni ght at bedtime 10/20/2019 11/19/2019 Inactive Synthroid 88 mcg tablet RxNorm: 803015 TAKE 1 TABLET BY MOUTH O NCE DAILY 10/20/2019 10/21/2019 Inactive scopolamine 1 mg over 3 days transdermal patch RxNorm: 27672 2 1 Unit Dose Transdermal Q72H for vertigo 10/14/2019 01/04/2020 Inactive scopolamine 1 mg over 3 days transdermal patch RxNorm: 26566 2 1 Unit Dose Transdermal Q72H for vertigo 10/14/2019 10/14/2019 Inactive Celebrex 200 mg capsule RxNorm: 229442 TAKE 1 CAPSULE BY MOUTH ONCE DAILY 10/12/2019 10/28/2019 Inactive triamterene 37.5 mg-hydrochlorothiazide 25 mg tablet RxNorm: 300521 1 Tablet(s) Oral QAM 10/06/2019 10/21/2019 Inactive diltiazem CD 180 mg capsule,extended release 24 hr RxNorm: 8 44013 1 Capsule(s) Oral two times a day 10/01/2019 11/29/2019 Inactive simvastatin 20 mg tablet RxNorm: 503232 TAKE 1 TABLET BY MOUTH ONCE DAILY 10/01/2019 10/01/2019 Inactive Patient will need to have fasting labs done before next refill Protonix 40 mg tablet,delayed release RxNorm: 863541 TA KE 1 TABLET BY MOUTH ONCE DAILY 09/28/2019 12/26/2019 Inactive diltiazem CD 180 mg capsule,extended release 24 hr RxNorm: 8 96425 1 Capsule(s) Oral two times a day 08/11/2019 08/10/2019 Inactive diltiazem CD 180 mg capsule,extended release 24 hr RxNorm: 8 10487 1 Capsule(s) Oral two times a day 08/11/2019 09/30/2019 Inactive diltiazem CD 120 mg capsule,extended release 24 hr RxNorm: 8 47096 1 Capsule(s) Oral two times a day 07/23/2019 08/10/2019 Inactive Celebrex 200 mg capsule RxNorm: 443435 1 Capsule(s) Oral QD 019 07/08/2019 Inactive Celebrex 200 mg capsule RxNorm: 851201 1 Capsule(s) Oral QD 10/07/2019 Inactive diltiazem CD 120 mg capsule,extended release 24 hr RxNorm: 8 54269 1 Capsule(s) Oral QAM 07/07/2019 07/22/2019 Inactive Eliquis 2.5 mg tablet RxNorm: 7901302 1 Tablet(s) Oral two times a day 07/07/2019 11/04/2019 Inactive metoprolol succinate ER 50 mg tablet,extended release 24 hr RxNorm: 587239 1 Tablet(s) Oral QAM and 2 tablets in the evening 06/30/2019 08/05/2020 Inactive hydrochlorothiazide 25 mg tablet RxNorm: 158797 1 Tablet(s) PO QD 1 07/06/2019 Inactive hydrochlorothiazide 25 mg tablet RxNorm: 816659 1 Tablet(s) PO QD 0 05/08/2019 05/07/2019 Inactive patient needs to follow up i n 2 months and continue BP readings at home hydrochlorothiazide 25 mg tablet RxNorm: 375395 1 Tablet(s) PO QD 0 05/08/2019 06/25/2019 Inactive patient needs to follow up i n 2 months and continue BP readings at home metoprolol succinate ER 50 mg tablet,extended release 24 hr RxNorm: 864390 1 Tablet(s) PO QAM and 2 tablets in the evening 05/08/2019 06/29/2019 In active hydrochlorothiazide 12.5 mg tablet RxNorm: 850824 1 Tablet(s) PO QA M 04/15/2019 05/07/2019 Inactive Synthroid 88 mcg tablet RxNorm: 238338 TAKE 1 TABLET BY MOUTH O NCE DAILY 04/14/2019 10/19/2019 Inactive Protonix 40 mg tablet,delayed release RxNorm: 618144 TA KE 1 TABLET BY MOUTH ONCE DAILY 03/24/2019 09/27/2019 Inactive simvastatin 20 mg tablet RxNorm: 066386 TAKE 1 TABLET BY MOUTH ONCE DAILY 03/24/2019 09/30/2019 Inactive losartan 100 mg tablet RxNorm: 208479 1/2 Tablet(s) PO QD 2019 04/14/2019 Inactive Cozaar 50 mg tablet RxNorm: 008326 1 Tablet(s) PO QHS 01/28/201903/25 Inactive Celebrex 200 mg capsule RxNorm: 857700 TAKE 1 CAPSULE BY MOUTH ONCE DAILY 01/10/2019 07/08/2019 Inactive Protonix 40 mg tablet,delayed release RxNorm: 724145 TA KE 1 TABLET BY MOUTH ONCE DAILY 12/23/2018 03/23/2019 Inactive metoprolol succinate ER 50 mg tablet,extended release 24 hr RxNorm: 437050 1.5 Tablet(s) PO BID 12/03/2018 04/14/2019 Inactive Synthroid 88 mcg tablet RxNorm: 603091 1 Tablet(s) PO QD 10/24/2018 0 04/13/2019 Inactive simvastatin 20 mg tablet RxNorm: 916368 1 Tablet(s) PO QD 09/27/2018 12/25/2018 Inactive simvastatin 20 mg tablet RxNorm: 875064 1 Tablet(s) PO QD 09/26/2018 09/26/2018 Inactive Cozaar 50 mg tablet RxNorm: 173574 1 Tablet(s) PO QHS 09/09/2018 050 02/2019 Inactive Cozaar 50 mg tablet RxNorm: 754311 1 Tablet(s) PO QHS 09/09/201808/24 Inactive metoprolol succinate ER 50 mg tablet,extended release 24 hr RxNorm: 937302 1.5 Tablet(s) PO BID 09/02/2018 11/30/2018 Inactive Cozaar 50 mg tablet RxNorm: 559930 1 Tablet(s) PO QHS 05/24/201808/24 Inactive Cozaar 25 mg tablet RxNorm: 331854 1 Tablet(s) PO QAM 05/10/201804/25 Inactive clonidine HCl 0.1 mg tablet RxNorm: 481196 1 Tablet(s) PO TID as needed for BP greater than 160/95 05/10/2018 05/20/2018 Inactive betamethasone dipropionate 0.05 % topical cream RxNorm: 2389 20 1 Application TOP BID 05/06/2018 11/25/2018 Inactive prednisone 20 mg tablet RxNorm: 571747 1 Tablet(s) PO QD 05/06/2018 0 05/05/2018 Inactive prednisone 20 mg tablet RxNorm: 352650 1 Tablet(s) PO QD 05/06/2018 0 05/10/2018 Inactive metoprolol succinate ER 50 mg tablet,extended release 24 hr RxNorm: 817965 1.5 Tablet(s) PO BID 05/06/2018 09/01/2018 Inactive Flonase Allergy Relief 50 mcg/actuation nasal spray,suspensi on RxNorm: 6081544 2 Warren NASAL QHS 05/03/2018 11/25/2018 Inactive Celebrex 200 mg capsule RxNorm: 672069 TAKE ONE CAPSULE BY MOUT H ONCE DAILY 04/30/2018 05/02/2018 Inactive Celebrex 200 mg capsule RxNorm: 245109 1 Capsule(s) PO QD TAKE ONE CAPSULE BY MOUTH ONCE DAILY 04/30/2018 05/02/2018 Inactive Synthroid 88 mcg tablet RxNorm: 804061 1 Tablet(s) PO QD 03/12/2018 1 11/08/2017 Inactive acyclovir 5 % topical ointment RxNorm: 111312 1 Unit Dose TOP Q 6H as needed 03/05/2018 11/25/2018 Inactive Protonix 40 mg tablet,delayed release RxNorm: 259909 1 Tablet(s ) PO QD 12/17/2017 12/22/2018 Inactive simvastatin 20 mg tablet RxNorm: 273156 TAKE ONE TABLET BY MOUT H ONCE DAILY 12/17/2017 09/27/2018 Inactive Celebrex 200 mg capsule RxNorm: 746671 TAKE ONE CAPSULE BY MOUT H ONCE DAILY 10/30/2017 04/29/2018 Inactive Synthroid 88 mcg tablet RxNorm: 194697 1 Tablet(s) PO QD 09/19/2017 0 03/12/2018 Inactive Synthroid 88 mcg tablet RxNorm: 192181 1 Tablet(s) PO QD Needs updated labs 09/19/2017 10/24/2018 Inactive Synthroid 88 mcg tablet RxNorm: 393433 1 Tablet(s) PO QD 06/20/2017 1 11/18/2016 Inactive simvastatin 20 mg tablet RxNorm: 981527 1 Tablet(s) PO QD 06/15/2017 09/12/2017 Inactive simvastatin 20 mg tablet RxNorm: 921525 1 Tablet(s) PO QD 06/15/2017 06/14/2017 Inactive metoprolol succinate ER 25 mg tablet,extended release 24 hr RxNorm: 762740 1 Tablet(s) PO QD 06/14/2017 07/23/2017 Inactive Valtrex 1 gram tablet RxNorm: 275342 1 Tablet(s) PO TID 06/01/2017 Inactive Celebrex 200 mg capsule RxNorm: 945006 1 Capsule(s) PO QD 05/01/2017 10/27/2017 Inactive Toprol XL 25 mg tablet,extended release RxNorm: 456977 09/25 Tabl et(s) PO QD 04/12/2017 06/13/2017 Inactive simvastatin 20 mg tablet RxNorm: 403366 1 Tablet(s) PO QD 03/19/2017 06/14/2017 Inactive Synthroid 88 mcg tablet RxNorm: 067691 1 Tablet(s) PO QD 03/14/2017 0 06/20/2017 Inactive aspirin 81 mg chewable tablet RxNorm: 573254 1 Tablet(s) PO QD 12/2404/21/2018 Inactive simvastatin 20 mg tablet RxNorm: 082137 TAKE ONE TABLET BY MOUT H ONCE DAILY 12/19/2016 03/19/2017 Inactive gabapentin 300 mg capsule RxNorm: 245654 1 Capsule(s) PO QHS 201603/29/2017 Inactive Protonix 40 mg tablet,delayed release RxNorm: 894058 TA KE ONE TABLET BY MOUTH ONCE DAILY 12/14/2016 12/08/2017 Inactive Flonase Allergy Relief 50 mcg/actuation nasal spray,suspensi on RxNorm: 5043334 2 Warren NASAL QHS 11/02/2016 12/17/2016 Inactive clotrimazole-betamethasone 1 %-0.05 % topical cream RxNorm: 436293 1 Application TOP BID 11/02/2016 11/01/2016 Inactive clotrimazole-betamethasone 1 %-0.05 % topical cream RxNorm: 531709 1 Application TOP BID 11/02/2016 12/17/2016 Inactive Tessalon Perles 100 mg capsule RxNorm: 344697 1 Capsule(s) PO TID 0 11/02/2016 12/17/2016 Inactive amoxicillin 500 mg tablet RxNorm: 792472 1 Tablet(s) PO TID 017 11/01/2016 Inactive Toprol XL 25 mg tablet,extended release RxNorm: 313278 TAKE ONE-HALF TABLET BY MOUTH ONCE DAILY 10/19/2016 04/12/2017 Inactive Toprol XL 25 mg tablet,extended release RxNorm: 143972 1/2 Tablet(s) PO QD Due for routine fasting labs and appointment 10/19/2016 01/16/2017 Inactiv e gabapentin 600 mg tablet RxNorm: 761378 1 Tablet(s) PO QHS 07/24/20 16 12/17/2016 Inactive gabapentin 600 mg tablet RxNorm: 139571 TAKE ONE TABLET BY MOUT H AT BEDTIME 07/24/2016 07/23/2016 Inactive simvastatin 20 mg tablet RxNorm: 808852 TAKE ONE TABLET BY MOUT H ONCE DAILY 06/15/2016 12/11/2016 Inactive Celebrex 200 mg capsule RxNorm: 230389 1 Capsule(s) PO QD 05/10/2016 05/01/2017 Inactive Celebrex 200 mg capsule RxNorm: 825510 1 Capsule(s) PO QD 05/09/2016 05/09/2016 Inactive Synthroid 88 mcg tablet RxNorm: 732298 Tablet(s) 1 Tablet(s) PO QD 03/21/2016 09/16/2016 Inactive Synthroid 88 mcg tablet RxNorm: 337649 1 Tablet(s) PO QD 03/20/2016 0 03/20/2016 Inactive simvastatin 20 mg tablet RxNorm: 789061 TAKE ONE TABLET BY MOUT H ONCE DAILY 03/06/2016 06/03/2016 Inactive meclizine 25 mg tablet RxNorm: 121749 1 Tablet(s) PO TID as nee ded dizziness 02/07/2016 12/17/2016 Inactive Zofran ODT 4 mg disintegrating tablet RxNorm: 371717 1 Tablet(s) PO Q6H as needed for nausea 02/07/2016 12/17/2016 Inactive gabapentin 600 mg tablet RxNorm: 678166 TAKE ONE TABLET BY MOUT H AT BEDTIME 01/20/2016 07/17/2016 Inactive Synthroid 88 mcg tablet RxNorm: 065982 1 Tablet(s) PO QD 12/27/2015 0 03/19/2016 Inactive simvastatin 20 mg tablet RxNorm: 185018 1 Tablet(s) PO QD 12/06/2015 03/04/2016 Inactive Protonix 40 mg tablet,delayed release RxNorm: 977784 1 Tablet(s ) PO QD 12/06/2015 12/13/2016 Inactive Celebrex 200 mg capsule RxNorm: 916685 1 Capsule(s) PO QD 11/03/2015 05/10/2016 Inactive Celebrex 200 mg capsule RxNorm: 443271 1 Capsule(s) PO QD 11/03/2015 11/02/2015 Inactive simvastatin 20 mg tablet RxNorm: 771900 1 Tablet(s) PO QD 09/06/2015 12/04/2015 Inactive Gralise 600 mg tablet,extended release RxNorm: 4046695 1 Tablet( s) PO QD 08/23/2015 10/18/2015 Inactive Synthroid 88 mcg tablet RxNorm: 588822 1 Tablet(s) PO QD 06/30/2015 0 09/27/2015 Inactive simvastatin 20 mg tablet RxNorm: 921544 1 Tablet(s) PO QD 06/07/2015 09/04/2015 Inactive Synthroid 88 mcg tablet RxNorm: 323580 1 Tablet(s) PO QD 06/07/2015 1 Inactive Celebrex 200 mg capsule RxNorm: 840672 1 Capsule(s) PO QD 06/07/2015 11/02/2015 Inactive Protonix 40 mg tablet,delayed release RxNorm: 451407 1 Tablet(s ) PO QD 06/07/2015 12/03/2015 Inactive Toprol XL 25 mg tablet,extended release RxNorm: 682156 1/2 Tabl et(s) PO QD 04/13/2015 10/09/2015 Inactive [SAVINGS FOR UNINSUR ED PATIENTS -- [id number], PCN: ASPROD1, Group: [id number], ID# [id number], Process claim through [employer], for questions: . THIS IS NOT INSURANCE.] Synthroid 88 mcg tablet RxNorm: 813595 1 Tablet(s) PO Q D TAKE ONE TABLET BY MOUTH ONCE DAILY 03/29/2015 06/30/2015 Inactive Celebrex 200 mg capsule RxNorm: 771713 1 Capsule(s) PO QD 03/22/2015 06/06/2015 Inactive Celebrex 200 mg capsule RxNorm: 797446 1 Capsule(s) PO QD 02/22/2015 03/21/2015 Inactive Celebrex 200 mg capsule RxNorm: 761119 1 Capsule(s) PO QD 01/21/2015 02/21/2015 Inactive Synthroid 88 mcg tablet RxNorm: 142473 1 Tablet(s) PO Q D TAKE ONE TABLET BY MOUTH ONCE DAILY 12/21/2014 03/29/2015 Inactive meloxicam 15 mg tablet RxNorm: 119967 1 Tablet(s) PO QD 12/09/2014 Inactive [SAVINGS FOR NON-COVERED DRUGS -- BIN:00 [id number], PCN: ASPROD1, Group: XXXXX, ID# [id number], Questions: . THIS IS NOT INSURANCE.] Protonix 40 mg tablet,delayed release RxNorm: 294534 1 Tablet(s ) PO QD 12/08/2014 06/05/2015 Inactive Protonix 40 mg tablet,delayed release RxNorm: 041351 1 Tablet(s ) PO QD 12/07/2014 12/07/2014 Inactive simvastatin 20 mg tablet RxNorm: 333759 TAKE ONE TABLET BY MOUT H ONCE DAILY 11/30/2014 05/28/2015 Inactive clotrimazole-betamethasone 1 %-0.05 % topical cream RxNorm: 3087 14 TOP BID 11/30/2014 11/01/2016 Inactive acetic acid 2 % ear solution RxNorm: 976998 5 Drop(s) OTIC Left ear QID 11/30/2014 12/06/2014 Inactive meloxicam 15 mg tablet RxNorm: 454464 1 Tablet(s) PO QD 10/30/2014 Inactive [SAVINGS FOR NON-COVERED DRUGS -- BIN:[id number], PCN: [id number], Group: [id number], ID# [id number], Questions: . THIS IS NOT INSURANCE.] meloxicam 15 mg tablet RxNorm: 024865 1 Tablet(s) PO QD 10/30/2014 Inactive Toprol XL 25 mg tablet,extended release RxNorm: 950441 1/2 Tabl et(s) PO QD 10/12/2014 04/09/2015 Inactive [SAVINGS FOR UNINSUR ED PATIENTS -- BIN:[id number], PCN: [id number], Group: [id number], ID# [id number], Process claim through [employer], for questions: . THIS IS NOT INSURANCE.] Synthroid 88 mcg tablet RxNorm: 968904 1 Tablet(s) PO Q D TAKE ONE TABLET BY MOUTH ONCE DAILY 09/21/2014 12/19/2014 Inactive Protonix 40 mg tablet,delayed release RxNorm: 436388 1 Tablet(s ) PO QD 07/23/2014 11/19/2014 Inactive Synthroid 88 mcg tablet RxNorm: 733044 TAKE ONE TABLET BY MOUTH ONCE DAILY 06/23/2014 09/21/2014 Inactive omeprazole 40 mg capsule,delayed release RxNorm: 164763 1 Capsu le(s) PO QD 06/16/2014 07/22/2014 Inactive [SAVINGS FOR UNINSUR ED PATIENTS -- [id number], PCN: [id number], Group: [id number], ID# [id number], Process claim through [employer], for questions: . THIS IS NOT INSURANCE.] Toprol XL 25 mg tablet,extended release RxNorm: 836528 1/2 Tabl et(s) PO QD 04/13/2014 10/12/2014 Inactive Celebrex 200 mg capsule RxNorm: 609916 1 Capsule(s) PO QD for pain 03/16/2014 10/29/2014 Inactive Medrol ([place]cho[place]) 4 mg tablets in a dose pack RxNorm: 218289 Tablet(s) PO as directed 03/09/2014 07/22/2014 Inactive Synthroid 88 mcg tablet RxNorm: 100816 1 Tablet(s) PO QD 02/17/2014 0 06/23/2014 Inactive Celebrex 200 mg capsule RxNorm: 971973 1 Capsule(s) PO QD for pain 02/17/2014 03/15/2014 Inactive omeprazole 40 mg capsule,delayed release RxNorm: 782167 1 Capsu le(s) PO QD 02/05/2014 06/16/2014 Inactive Protonix 40 mg tablet,delayed release RxNorm: 578134 1 Tablet(s ) PO QD 01/23/2014 05/10/2020 Inactive Toprol XL 25 mg tablet,extended release RxNorm: 871073 1/2 Tablet(s) PO QD TAKE ONE-HALF TABLET BY MOUTH EVERY DAY 01/12/2014 04/13/2014 Inactive Synthroid 88 mcg tablet RxNorm: 965689 Tablet(s) PO MANDY E ONE TABLET BY MOUTH EVERY DAY 11/17/2013 02/17/2014 Inactive Celebrex 200 mg capsule RxNorm: 698455 1 Capsule(s) PO QD for pain 10/20/2013 02/17/2014 Inactive Toprol XL 25 mg tablet,extended release RxNorm: 862458 1/2 Tabl et(s) PO QD 07/17/2013 01/12/2014 Inactive Nexium 40 mg capsule,delayed release RxNorm: 060724 1 C apsule(s) PO QD Generic ok 07/14/2013 09/21/2013 Inactive Celebrex 200 mg capsule RxNorm: 332623 1 Capsule(s) PO QD for pain 06/19/2013 10/20/2013 Inactive Synthroid 88 mcg tablet RxNorm: 063209 1 Tablet(s) PO QD 05/13/2013 0 11/17/2013 Inactive TAKE ONE TABLET BY MOUTH EVERY DAY Nexium 40 mg capsule,delayed release RxNorm: 321019 Cap maureen(s) PO TAKE ONE CAPSULE BY MOUTH EVERY DAY 05/05/2013 07/13/2013 Inactive Celebrex 200 mg capsule RxNorm: 239426 1 Capsule(s) PO QD for pain 04/07/2013 06/19/2013 Inactive Esgic-Plus 50 mg-500 mg-40 mg capsule RxNorm: 252944 1 Capsule(s) PO Q4-6H prn headache 04/07/2013 04/07/2013 Inactive Toprol XL 25 mg tablet,extended release RxNorm: 533391 1/2 Tabl et(s) PO QD 12/16/2012 06/13/2013 Inactive Nexium 40 mg capsule,delayed release RxNorm: 033369 1 Capsule(s ) PO QD 11/20/2012 03/19/2013 Inactive Synthroid 88 mcg tablet RxNorm: 204464 1 Tablet(s) PO QD 10/28/2012 0 04/25/2013 Inactive TAKE ONE TABLET BY MOUTH EVERY DAY Toprol XL 25 mg tablet,extended release RxNorm: 093692 1/2 Tabl et(s) PO QD 09/25/2012 12/16/2012 Inactive Synthroid 88 mcg tablet RxNorm: 339564 1 Tablet(s) PO QD 04/22/2012 0 10/28/2012 Inactive TAKE ONE TABLET BY MOUTH EVERY DAY Nexium 40 mg capsule,delayed release RxNorm: 486337 1 Capsule(s ) PO QD 04/16/2012 11/20/2012 Inactive Esgic-Plus 50 mg-500 mg-40 mg capsule RxNorm: 262329 1 Capsule(s) PO Q4-6H prn headache 03/28/2012 04/06/2013 Inactive Toprol XL 25 mg tablet,extended release RxNorm: 135486 1/2 Tabl et(s) PO QD 03/07/2012 09/25/2012 Inactive Toprol XL 25 mg 24 hr Tab RxNorm: 876639 1/2 Tablet(s) PO QD 201101/03/2012 Inactive Three times a week Synthroid 88 mcg Tab RxNorm: 435593 1 Tablet(s) PO QD 10/10/201112/23 Inactive TAKE ONE TABLET BY MOUTH EVERY DAY prednisone 20 mg Tab RxNorm: 291702 1 Tablet(s) PO BID 09/13/2011 Inactive doxycycline 100 mg Cap RxNorm: 5731121 1 Capsule(s) PO BID 09/13/20 11 09/22/2011 Inactive cefdinir 300 mg Cap RxNorm: 064433 1 Capsule(s) PO BID 08/07/2011 Inactive Synthroid 88 mcg Tab RxNorm: 592121 1 Tablet(s) PO QD 07/19/201109/24 Inactive TAKE ONE TABLET BY MOUTH EVERY DAY Synthroid 88 mcg Tab RxNorm: 684153 1 Tablet(s) PO QD 07/19/201103/26 Inactive TAKE ONE TABLET BY MOUTH EVERY DAY Synthroid 88 mcg Tab RxNorm: 658668 1 Tablet(s) PO QD 07/18/201106/25 Inactive TAKE ONE TABLET BY MOUTH EVERY DAY Synthroid 88 mcg Tab RxNorm: 640634 1 Tablet(s) PO QD 05/15/201106/25 Inactive TAKE ONE TABLET BY MOUTH EVERY DAY Synthroid 88 mcg Tab RxNorm: 332292 1 Tablet(s) PO QD 03/15/201104/25 Inactive Synthroid 75 mcg Tab RxNorm: 748931 1 Tablet(s) PO QD 01/04/201102/22 Inactive Synthroid 50 mcg Tab RxNorm: 368678 1 Tablet(s) PO QD G eneric okay. Please explain to patient that she may see more variation in her thyroid labs and increased symptoms. 07/07/2010 03/14/2011 Inactive Prednisone 20 mg Tab RxNorm: 597727 1 Tablet(s) PO BID 02/14/2010 Inactive Flexeril 10 mg Tab RxNorm: 470473 1 Tablet(s) PO TID 02/07/201002/13 Inactive Synthroid 25 mcg Tab RxNorm: 146534 1 Tablet(s) PO QD 12/29/200902/23 Inactive Synthroid 50 mcg Tab RxNorm: 667738 1 Tablet(s) PO QD 12/29/200911/2009 Inactive Vitamin D3 2,000 unit tablet RxNorm: 490157 1 Tablet(s) PO QAM 2014 Active coenzyme Q10 200 mg tablet RxNorm: 670280 1 Tablet(s) PO QD 09/01/2014 Active Trelegy Ellipta inhalation RxNorm: 6298786 inhalation 05/30/2022 Active Vitamin B12 1000mcg Tablet RxNorm: 1/2 Tablet(s) PO QD 04/03/2017 Active gabapentin 600 mg tablet RxNorm: 677923 1 Tablet(s) PO QPM 01/20/20 16 01/19/2016 Inactive Fish Oil 1,000 mg capsule RxNorm: 1 Capsule(s) PO QHS 10/18/2017 0 10/17/2017 Inactive Toprol XL 25 mg 24 hr Tab RxNorm: 214059 1/2 Tablet(s) PO QD 201103/06/2012 Inactive turmeric root extract oral RxNorm: 4722252 oral 05/26/20152014 Inactive Esgic 50 mg-325 mg-40 mg tablet RxNorm: 216859 1 Tablet (s) PO Q4H as needed for pain 05/26/2015 05/25/2015 Inactive Synthroid 88 mcg Tab RxNorm: 060985 1 Tablet(s) PO QD 03/15/201102/23 Inactive Calcium with Vitamin D 600 mg-400 unit Tab RxNorm: 467583 1 Tab let(s) PO BID 03/31/2013 03/30/2013 Inactive Synthroid 50 mcg Tab RxNorm: 099961 1 Tablet(s) PO QD 03/16/201002/23 Inactive Celebrex 200 mg capsule RxNorm: 387533 1 Capsule(s) PO QD 01/21/2015 01/20/2015 Inactive betamethasone dipropionate 0.05 % topical cream RxNorm: 2389 20 1 Application TOP BID 05/06/2018 05/05/2018 Inactive Protonix 40 mg tablet,delayed release RxNorm: 246315 1 Tablet(s ) PO QD 01/23/2014 01/23/2014 Inactive Calcium + D 600 mg (1,500)-200 unit Tab RxNorm: 624835 1 Tablet (s) PO QD 01/04/2011 01/03/2011 Inactive simvastatin 20 mg tablet RxNorm: 299284 1 Tablet(s) PO QD 11/30/2014 11/29/2014 Inactive Fish Oil 1,000 mg capsule RxNorm: 2 Capsule(s) PO QD 05/26/2015 Inactive Gralise 600 mg tablet,extended release RxNorm: 2180082 1 Tablet( s) PO QD 08/23/2015 08/22/2015 Inactive Vitamin B12 1000mcg Tablet RxNorm: 1 Tablet(s) PO QD 04/03/2017 Inactive Esgic-Plus 50 mg-500 mg-40 mg Cap RxNorm: 866671 1 Caps ule(s) PO Q4-6H prn headache 03/28/2012 03/27/2012 Inactive Cozaar 50 mg tablet RxNorm: 029014 1 Tablet(s) PO QHS 05/24/201804/26 Inactive Toprol XL 25 mg 24 hr Tab RxNorm: 832930 2 Tablet(s) PO Three t imes a week 01/01/2012 12/31/2011 Inactive metoprolol succinate ER 25 mg tablet,extended release 24 hr RxNorm: 768922 1 Tablet(s) PO TID 10/18/2017 10/17/2017 Inactive metoprolol succinate ER 50 mg tablet,extended release 24 hr RxNorm: 524910 1.5 Tablet(s) PO QAM and tablet at bedtime 05/06/2018 05/05/2018 Inactive Esgic-Plus 50 mg-500 mg-40 mg Cap RxNorm: 307991 1 Capsule(s) P O Q4-6H 08/07/2011 08/06/2011 Inactive metoprolol succinate ER 50 mg tablet,extended release 24 hr RxNorm: 383126 1 Tablet(s) PO QD 04/22/2018 04/21/2018 Inactive Multivitamin & Mineral Formula Tab RxNorm: 1 Tablet(s) PO QD 0 03/31/2013 03/30/2013 Inactive metoprolol succinate ER 50 mg tablet,extended release 24 hr RxNorm: 943346 2 Tablet(s) PO QAM and 1.5 tablets (75mg) at bedtime 05/01/2019 9 Inactive Fish Oil 1,000 mg Cap RxNorm: 1 Capsule(s) PO QD 03/31/20132012 Inactive pantoprazole 40 mg tablet,delayed release RxNorm: 935079 1 Tabl et(s) PO QD 02/05/2014 02/04/2014 Inactive Eliquis 2.5 mg tablet RxNorm: 9797382 1 Tablet(s) PO BID 07/07/2019 1 Inactive Medrol 4 mg Tab RxNorm: 776656 Tablet(s) PO as directed 03/28/2012 Inactive Synthroid 75 mcg Tab RxNorm: 024558 1 Tablet(s) PO QD 02/14/201001/23 Inactive aspirin 81 mg tablet RxNorm: 779867 1 Tablet(s) PO QD 05/26/2015 090 09/2014 Inactive meclizine 25 mg tablet RxNorm: 655368 1 Tablet(s) PO TID as needed 11/26/2018 11/25/2018 Inactive metoprolol succinate ER 50 mg tablet,extended release 24 hr RxNorm: 318280 1 Tablet(s) PO QAM and 2 tablets in the evening 05/08/2019 05/07/2019 In active Aspirin 81 mg Tab RxNorm: 804663 1 Tablet(s) PO QD 03/31/2013 013 Inactive Vitamin D3 1,000 unit capsule RxNorm: 710179 1 Capsule(s) PO QD 04/201303/30/2013 Inactive Medication Administered No Medication Administered data Immunizations Vaccine Codes Dose Date Status Pneumococcal CVX: 133 0.5 ml 05/26/2015 Results Observation Observation Code Item Item Code Result Date S ervice Location GLYCOSYLATED HEMOGLOBIN TEST 93618 Hgb A1c 61545-1 6.0 % 0 03/01/2022 Unknown MEAN GLUC 5588278 Calc Mean Gluc 126 mg/dL 03/01/2022 Unkn own COMPREHENSIVE METABOLIC 96545 AST 16 U/L 2021 Unknown COMPREHENSIVE METABOLIC 55120 ALT 15 U/L 2021 Unknown COMPREHENSIVE METABOLIC 80863 BUN 18 mg/dL 2021 Unknown COMPREHENSIVE METABOLIC 16399 ALBUMIN 4.3 g/dL 2021 Unknown COMPREHENSIVE METABOLIC 94096 CHLORIDE 104 mmol/L 02/28 Unknown COMPREHENSIVE METABOLIC 64857 Bili Total 0.8 mg/dL 02/28 Unknown COMPREHENSIVE METABOLIC 89481 ALK PHOS 93 U/L 2021 Unknown COMPREHENSIVE METABOLIC 16711 SODIUM 143 mmol/L 02/28 Unknown COMPREHENSIVE METABOLIC 65469 CREATININE 0.82 mg/dL 03/2022 Unknown COMPREHENSIVE METABOLIC 56260 CALCIUM 9.8 mg/dL 2021 Unknown COMPREHENSIVE METABOLIC 02314 POTASSIUM 4.2 mmol/L 02/28 Unknown COMPREHENSIVE METABOLIC 84399 Total Protein 7.7 g/dL Unknown COMPREHENSIVE METABOLIC 03368 Glucose 116 mg/dL 2021 Unknown COMPREHENSIVE METABOLIC 14304 Bicarbonate 26 mmol/L 03/2022 Unknown COMPREHENSIVE METABOLIC 20814 AGAP 13 mmol/L 2021 Unknown FREE T4 82091 T4 Free 1.15 ng/dL 02/28/2022 Unknown THYROID STIMULATING HORMONE 06642 TSH 3.512 uIU/mL 02/28/2022 Unknown LIPID GROUP 78703 Cholesterol 158 mg/dL 02/28/2022 Unkno wn [facility] 55073 Triglyceride 78 mg/dL 02/28/2022 Unkn own L[facility] 49515 HDL CHOLESTEROL 66 mg/dL 02/28/2022 U nknown LIPID GROUP 64527 Chol/HDL Ratio 2.39 ratio 02/28/2022 U nknown LIPID GROUP 98626 NON-HDL Chol 92 mg/dL 02/28/2022 Unkn own LIPID GROUP 13838 LDL Cholesterol 76 mg/dL [facility]/28[facility]LO[facility] COUNT [id number] WBC 6.9 10e9/L 02/29/20 22 Unknown COMPLETE BLOOD COUNT [id number] RBC 4.61 10e12/L 2021 Unknown COMPLETE BLOOD COUNT [id number] HEMOGLOBIN 13.0 g/dL 02/29/20 22 Unknown COMPLETE BLOOD COUNT 6591271 HEMATOCRIT 42.1 % 02/29/20 22 Unknown COMPLETE BLOOD COUNT 6279958 MCV 91.3 fL 2 Unknown COMPLETE BLOOD COUNT [id number] MCH 28.2 pg 2 Unknown COMPLETE BLOOD COUNT 7935539 MCHC 30.9 g/dL 2 Unknown COMPLETE BLOOD COUNT [id number] PLATELET COUNT 276 10e9/L 03/2022 Unknown COMPLETE BLOOD COUNT 0757881 Mean Plt Volume 10.6 fL 03/2022 Unknown COMPLETE BLOOD COUNT [id number] NRBC Absolute 0.00 10e9/L 03/2022 Unknown COMPLETE BLOOD COUNT 9285350 Neut Auto 53.0 % 2 Unknown COMPLETE BLOOD COUNT [id number] NRBC/100 WBC 0.0 2021 Unknown COMPLETE BLOOD COUNT [id number] Lymph Auto 32.0 % 02/29/20 22 Unknown COMPLETE BLOOD COUNT [id number] [place] Auto 11.0 % 2 Unknown COMPLETE BLOOD COUNT [id number] RDW 14.4 % 2 Unknown COMPLETE BLOOD COUNT [id number] Eos Auto 2.5 % 2 Unknown COMPLETE BLOOD COUNT 6035762 Baso Auto 1.4 % 2 Unknown COMPLETE BLOOD COUNT [id number] Neutrophil Abs 3.66 10e9/L Unknown COMPLETE BLOOD COUNT [id number] Imm Gran Auto 0.1 % 02/28 Unknown COMPLETE BLOOD COUNT [id number] Lymphocyte Abs 2.21 10e9/L Unknown COMPLETE BLOOD COUNT [id number] Monocyte Abs 0.76 10e9/L 03/2022 Unknown COMPLETE BLOOD COUNT [id number] Eosinophil Abs 0.17 10e9/L Unknown COMPLETE BLOOD COUNT [id number] RDW-SD 47.8 fL 2 Unknown COMPLETE BLOOD COUNT [id number] Basophil Abs 0.10 10e9/L 03/2022 Unknown COMPLETE BLOOD COUNT [id number] Imm Gran Abs 0.01 10e9/L 03/2022 Unknown GFR CALC [id number] GFR >60 mL/min 02/28/2022 Unknown THYROID STIMULATING HORMONE 60029 TSH 3.017 uIU/mL 01/31/2021 Unknown COMPLETE BLOOD COUNT 8120621 WBC 6.1 10e9/L 02/01/20 21 Unknown COMPLETE BLOOD COUNT [id number] RBC 4.22 10e12/L 2020 Unknown COMPLETE BLOOD COUNT 7125202 HEMOGLOBIN 12.1 g/dL 02/01/20 21 Unknown COMPLETE BLOOD COUNT [id number] HEMATOCRIT 39.5 % 02/01/20 21 Unknown COMPLETE BLOOD COUNT 6653891 MCV 93.6 fL 1 Unknown COMPLETE BLOOD COUNT [id number] MCH 28.7 pg 1 Unknown COMPLETE BLOOD COUNT [id number] MCHC 30.6 g/dL 1 Unknown COMPLETE BLOOD COUNT [id number] PLATELET COUNT 271 10e9/L 06/2021 Unknown COMPLETE BLOOD COUNT [id number] Mean Plt Volume 11.0 fL 06/2021 Unknown COMPLETE BLOOD COUNT 4146349 Neut Auto 57.3 % 1 Unknown COMPLETE BLOOD COUNT [id number] Lymph Auto 28.3 % 02/01/20 21 Unknown COMPLETE BLOOD COUNT 5753590 [place] Auto 10.9 % 1 Unknown COMPLETE BLOOD COUNT 8279055 RDW 14.4 % 1 Unknown COMPLETE BLOOD COUNT 5641949 Eos Auto 2.8 % 1 Unknown COMPLETE BLOOD COUNT [id number] Baso Auto 0.7 % 1 Unknown COMPLETE BLOOD COUNT [id number] Neutrophil Abs 3.50 10e9/L Unknown COMPLETE BLOOD COUNT [id number] Lymphocyte Abs 1.73 10e9/L Unknown COMPLETE BLOOD COUNT [id number] Monocyte Abs 0.66 10e9/L 01/22 Unknown COMPLETE BLOOD COUNT [id number] Eosinophil Abs 0.17 10e9/L Unknown COMPLETE BLOOD COUNT 7279043 RDW-SD 47.4 fL Unknown COMPLETE BLOOD COUNT [id number] Basophil Abs 0.04 10e9/L 01/22 Unknown GLYCOSYLATED HEMOGLOBIN TEST 67899 Hgb A1c 63210-6 5.9 % 0 01/31/2021 Unknown LIPID GROUP 45793 Cholesterol 151 mg/dL 01/31/2021 Unkno wn LIPID GROUP 12721 Triglyceride 68 mg/dL 01/31/2021 Unkn own LIPID GROUP 65522 HDL CHOLESTEROL 64 mg/dL 01/31/2021 U nknown LIPID GROUP 58513 Chol/HDL Ratio 2.36 ratio 01/31/2021 U nknown LIPID GROUP 18584 NON-HDL Chol 87 mg/dL 01/31/2021 Unkn own LIPID GROUP 22984 LDL Cholesterol 73 mg/dL 01/31/2021 U nknown MEAN GLUC 8268652 Calc Mean Gluc 123 mg/dL 01/31/2021 Unkn own FREE T4 60927 T4 Free 1.11 ng/dL 01/31/2021 Unknown COMPREHENSIVE METABOLIC 46460 AST 16 U/L 2020 Unknown COMPREHENSIVE METABOLIC 30642 ALT 12 U/L 2020 Unknown COMPREHENSIVE METABOLIC 63921 BUN 14 mg/dL 2020 Unknown COMPREHENSIVE METABOLIC 96778 ALBUMIN 4.3 g/dL 2020 Unknown COMPREHENSIVE METABOLIC 06683 CHLORIDE 106 mmol/L 01/31 Unknown COMPREHENSIVE METABOLIC 63097 Bili Total 0.9 mg/dL 01/31 Unknown COMPREHENSIVE METABOLIC 27514 ALK PHOS 96 U/L 2020 Unknown COMPREHENSIVE METABOLIC 86718 SODIUM 144 mmol/L 01/31 Unknown COMPREHENSIVE METABOLIC 69785 CREATININE 0.77 mg/dL 01/22 Unknown COMPREHENSIVE METABOLIC 40080 CALCIUM 9.4 mg/dL 2020 Unknown COMPREHENSIVE METABOLIC 38551 POTASSIUM 4.2 mmol/L 01/31 Unknown COMPREHENSIVE METABOLIC 89729 Total Protein 7.4 g/dL Unknown COMPREHENSIVE METABOLIC 16707 Glucose 94 mg/dL 2020 Unknown COMPREHENSIVE METABOLIC 94070 Bicarbonate 30 mmol/L 01/22 Unknown COMPREHENSIVE METABOLIC 92207 AGAP 8 mmol/L 2020 Unknown GFR CALC 7444117 GFR Non Afr Amr >60 mL/min 01/31/2021 Un known GFR CALC 9317131 GFR Afr Amr >60 mL/min 01/31/2021 Unknow n COMPLETE BLOOD COUNT 9752800 WBC 6.9 10e9/L 01/05/20 20 Unknown COMPLETE BLOOD COUNT [id number] RBC 4.20 10e12/L 2019 Unknown COMPLETE BLOOD COUNT 0214775 HEMOGLOBIN 12.2 g/dL 01/05/20 20 Unknown COMPLETE BLOOD COUNT [id number] HEMATOCRIT 39.2 % 01/05/20 20 Unknown COMPLETE BLOOD COUNT 1497173 MCV 93.3 fL 0 Unknown COMPLETE BLOOD COUNT 7954794 MCH 29.0 pg 0 Unknown COMPLETE BLOOD COUNT 8413040 MCHC 31.1 g/dL 0 Unknown COMPLETE BLOOD COUNT 0501143 PLATELET COUNT 272 10e9/L Unknown COMPLETE BLOOD COUNT 9508962 Mean Plt Volume 11.0 fL Unknown COMPLETE BLOOD COUNT 1002282 Neut Auto 61.4 % 0 Unknown COMPLETE BLOOD COUNT 3902257 Lymph Auto 22.4 % 01/05/20 20 Unknown COMPLETE BLOOD COUNT 7779009 [place] Auto 11.7 % 0 Unknown COMPLETE BLOOD COUNT 7029915 RDW 14.6 % 0 Unknown COMPLETE BLOOD COUNT 3412957 Eos Auto 3.6 % 0 Unknown COMPLETE BLOOD COUNT 5805810 Baso Auto 0.9 % 0 Unknown COMPLETE BLOOD COUNT 2760279 Neutrophil Abs 4.24 10e9/L Unknown COMPLETE BLOOD COUNT 4729603 Lymphocyte Abs 1.55 10e9/L Unknown COMPLETE BLOOD COUNT [id number] Monocyte Abs 0.81 10e9/L 12/23 Unknown COMPLETE BLOOD COUNT 2788541 Eosinophil Abs 0.25 10e9/L Unknown COMPLETE BLOOD COUNT 9890672 RDW-SD 48.2 fL 0 Unknown COMPLETE BLOOD COUNT 1122808 Basophil Abs 0.06 10e9/L 12/23 Unknown COMPREHENSIVE METABOLIC 91564 AST 17 U/L 2019 Unknown COMPREHENSIVE METABOLIC 16491 ALT 12 U/L 2019 Unknown COMPREHENSIVE METABOLIC 32979 BUN 18 mg/dL 2019 Unknown COMPREHENSIVE METABOLIC 50639 ALBUMIN 4.5 g/dL 2019 Unknown COMPREHENSIVE METABOLIC 67889 CHLORIDE 101 mmol/L 01/04 Unknown COMPREHENSIVE METABOLIC 05971 Bili Total 0.8 mg/dL 01/04 Unknown COMPREHENSIVE METABOLIC 09607 ALK PHOS 76 U/L 2019 Unknown COMPREHENSIVE METABOLIC 54633 SODIUM 141 mmol/L 01/04 Unknown COMPREHENSIVE METABOLIC 03239 CREATININE 1.02 mg/dL 12/23 Unknown COMPREHENSIVE METABOLIC 74464 CALCIUM 9.5 mg/dL 2019 Unknown COMPREHENSIVE METABOLIC 79263 POTASSIUM 3.9 mmol/L 01/04 Unknown COMPREHENSIVE METABOLIC 58911 Total Protein 7.4 g/dL Unknown COMPREHENSIVE METABOLIC 11386 Glucose 89 mg/dL 2019 Unknown COMPREHENSIVE METABOLIC 88381 Bicarbonate 28 mmol/L 12/23 Unknown COMPREHENSIVE METABOLIC 07120 AGAP 12 mmol/L 2019 Unknown LIPASE 63840 Lipase Lvl 34 IU/L 01/05/2020 Unknown THYROID STIMULATING HORMONE 11551 TSH 3.767 uIU/mL 01/05/2020 Unknown AMYLASE 35426 Amylase Lvl 60 IU/L 01/05/2020 Unknown GFR CALC 5083613 GFR Non Afr Amr 52 mL/min 01/05/2020 Unk nown GFR CALC 9410821 GFR Afr Amr >60 mL/min 01/05/2020 Unknow n FREE T4 59721 T4 Free 1.11 ng/dL 01/05/2020 Unknown GFR CALC 2458874 GFR Non Afr Amr 59 mL/min 12/05/2019 Unk nown GFR CALC 8241184 GFR Afr Amr >60 mL/min 12/05/2019 Unknow n COMPREHENSIVE METABOLIC 42333 AST 15 U/L 2019 Unknown COMPREHENSIVE METABOLIC 18073 ALT 12 U/L 2019 Unknown COMPREHENSIVE METABOLIC 52624 BUN 19 mg/dL 2019 Unknown COMPREHENSIVE METABOLIC 27946 ALBUMIN 4.2 g/dL 2019 Unknown COMPREHENSIVE METABOLIC 43521 CHLORIDE 104 mmol/L 12/04 Unknown COMPREHENSIVE METABOLIC 49557 Bili Total 1.0 mg/dL 12/04 Unknown COMPREHENSIVE METABOLIC 98858 ALK PHOS 78 U/L 2019 Unknown COMPREHENSIVE METABOLIC 84433 SODIUM 145 mmol/L 12/04 Unknown COMPREHENSIVE METABOLIC 09207 CREATININE 0.91 mg/dL 11/22 Unknown COMPREHENSIVE METABOLIC 25242 CALCIUM 9.3 mg/dL 2019 Unknown COMPREHENSIVE METABOLIC 29544 POTASSIUM 3.6 mmol/L 12/04 Unknown COMPREHENSIVE METABOLIC 35465 Total Protein 7.0 g/dL Unknown COMPREHENSIVE METABOLIC 14047 Glucose 96 mg/dL 2019 Unknown COMPREHENSIVE METABOLIC 03055 Bicarbonate 28 mmol/L 11/22 Unknown COMPREHENSIVE METABOLIC 28019 AGAP 13 mmol/L 2019 Unknown COMPREHENSIVE METABOLIC 17832 AST 15 U/L 2019 Unknown COMPREHENSIVE METABOLIC 99257 ALT 11 U/L 2019 Unknown COMPREHENSIVE METABOLIC 15415 BUN 14 mg/dL 2019 Unknown COMPREHENSIVE METABOLIC 24581 ALBUMIN 4.3 g/dL 2019 Unknown COMPREHENSIVE METABOLIC 76331 CHLORIDE 106 mmol/L 11/05 Unknown COMPREHENSIVE METABOLIC 30175 Bili Total 0.7 mg/dL 11/05 Unknown COMPREHENSIVE METABOLIC 51865 ALK PHOS 80 U/L 2019 Unknown COMPREHENSIVE METABOLIC 20266 SODIUM 145 mmol/L 11/05 Unknown COMPREHENSIVE METABOLIC 40101 CREATININE 0.97 mg/dL 10/25 Unknown COMPREHENSIVE METABOLIC 68351 CALCIUM 9.5 mg/dL 2019 Unknown COMPREHENSIVE METABOLIC 77801 POTASSIUM 3.9 mmol/L 11/05 Unknown COMPREHENSIVE METABOLIC 13061 Total Protein 7.0 g/dL Unknown COMPREHENSIVE METABOLIC 78376 Glucose 103 mg/dL 2019 Unknown COMPREHENSIVE METABOLIC 45379 Bicarbonate 29 mmol/L 10/25 Unknown COMPREHENSIVE METABOLIC 08779 AGAP 10 mmol/L 2019 Unknown GFR CALC 3481958 GFR Non Afr Amr 55 mL/min 11/05/2019 Unk nown GFR CALC 8133734 GFR Afr Amr >60 mL/min 11/05/2019 Unknow n FREE T4 99665 T4 Free 1.34 ng/dL 10/21/2019 Unknown COMPLETE BLOOD COUNT 7063019 WBC 7.2 10e9/L 10/21/19 20 Unknown COMPLETE BLOOD COUNT [id number] RBC 4.17 10e12/L 2019 Unknown COMPLETE BLOOD COUNT 9158514 HEMOGLOBIN 12.1 g/dL 10/21/19 20 Unknown COMPLETE BLOOD COUNT 4038354 HEMATOCRIT 39.0 % 01/28/20 20 Unknown COMPLETE BLOOD COUNT 9050556 MCV 93.5 fL 0 Unknown COMPLETE BLOOD COUNT 9011450 MCH 29.0 pg 0 Unknown COMPLETE BLOOD COUNT [id number] MCHC 31.0 g/dL 0 Unknown COMPLETE BLOOD COUNT 5779431 PLATELET COUNT 239 10e9/L Unknown COMPLETE BLOOD COUNT 1652728 Mean Plt Volume 11.7 fL Unknown COMPLETE BLOOD COUNT 8190228 Neut Auto 63.7 % 0 Unknown COMPLETE BLOOD COUNT [id number] Lymph Auto 21.0 % 10/21/19 20 Unknown COMPLETE BLOOD COUNT 2247120 [place] Auto 11.1 % 0 Unknown COMPLETE BLOOD COUNT 9960185 RDW 13.6 % 0 Unknown COMPLETE BLOOD COUNT 5646844 Eos Auto 3.6 % 0 Unknown COMPLETE BLOOD COUNT 1706003 Baso Auto 0.6 % 0 Unknown COMPLETE BLOOD COUNT 2863239 Neutrophil Abs 4.59 10e9/L Unknown COMPLETE BLOOD COUNT 6399277 Lymphocyte Abs 1.51 10e9/L Unknown COMPLETE BLOOD COUNT 6839747 Monocyte Abs 0.80 10e9/L 09/25 Unknown COMPLETE BLOOD COUNT 4191427 Eosinophil Abs 0.26 10e9/L Unknown COMPLETE BLOOD COUNT 2175305 RDW-SD 45.1 fL 0 Unknown COMPLETE BLOOD COUNT 1150850 Basophil Abs 0.04 10e9/L 09/25 Unknown GFR CALC 5112650 GFR Non Afr Amr 42 mL/min 10/21/2019 Unk nown GFR CALC 8464190 GFR Afr Amr 50 mL/min 10/21/2019 Unknown COMPREHENSIVE METABOLIC 92024 AST 16 U/L 2019 Unknown COMPREHENSIVE METABOLIC 49997 ALT 10 U/L 2019 Unknown COMPREHENSIVE METABOLIC 76360 BUN 20 mg/dL 2019 Unknown COMPREHENSIVE METABOLIC 96496 ALBUMIN 4.4 g/dL 2019 Unknown COMPREHENSIVE METABOLIC 80359 CHLORIDE 102 mmol/L 10/21 Unknown COMPREHENSIVE METABOLIC 24409 Bili Total 0.8 mg/dL 10/21 Unknown COMPREHENSIVE METABOLIC 44698 ALK PHOS 85 U/L 2019 Unknown COMPREHENSIVE METABOLIC 50773 SODIUM 144 mmol/L 10/21 Unknown COMPREHENSIVE METABOLIC 61390 CREATININE 1.24 mg/dL 09/25 Unknown COMPREHENSIVE METABOLIC 09944 CALCIUM 9.8 mg/dL 2019 Unknown COMPREHENSIVE METABOLIC 79681 POTASSIUM 4.2 mmol/L 10/21 Unknown COMPREHENSIVE METABOLIC 12748 Total Protein 7.3 g/dL Unknown COMPREHENSIVE METABOLIC 73561 Glucose 98 mg/dL 2019 Unknown COMPREHENSIVE METABOLIC 70910 Bicarbonate 31 mmol/L 09/25 Unknown COMPREHENSIVE METABOLIC 88838 AGAP 11 mmol/L 2019 Unknown THYROID STIMULATING HORMONE 25362 TSH 2.693 uIU/mL 10/21/2019 Unknown LIPID GROUP 30823 Cholesterol 142 mg/dL 10/21/2019 Unkno wn LIPID GROUP 10325 Triglyceride 120 mg/dL 10/21/2019 Unkn own LIPID GROUP 57989 HDL CHOLESTEROL 54 mg/dL 10/21/2019 U nknown LIPID GROUP 70850 Chol/HDL Ratio 2.63 ratio 10/21/2019 U nknown LIPID GROUP 65294 NON-HDL Chol 88 mg/dL 10/21/2019 Unkn own LIPID GROUP 14916 LDL Cholesterol 64 mg/dL 10/21/2019 U nknown GFR CALC [id number] GFR Non Afr Amr >60 mL/min 04/04/2019 Un known GFR CALC [id number] GFR Afr Amr >60 mL/min 04/04/2019 Unknow n COMPLETE BLOOD COUNT 2758773 WBC 5.9 10e9/L 04/04/20 19 Unknown COMPLETE BLOOD COUNT [id number] RBC 4.29 10e12/L 2018 Unknown COMPLETE BLOOD COUNT [id number] HEMOGLOBIN 12.3 g/dL 04/04/20 19 Unknown COMPLETE BLOOD COUNT [id number] HEMATOCRIT 39.2 % 04/04/20 19 Unknown COMPLETE BLOOD COUNT [id number] MCV 91.4 fL 9 Unknown COMPLETE BLOOD COUNT 6463269 MCH 28.7 pg 9 Unknown COMPLETE BLOOD COUNT 4282796 MCHC 31.4 g/dL 9 Unknown COMPLETE BLOOD COUNT 3644396 PLATELET COUNT 225 10e9/L 08/2019 Unknown COMPLETE BLOOD COUNT 0201009 Mean Plt Volume 11.0 fL 08/2019 Unknown COMPLETE BLOOD COUNT [id number] Neut Auto 57.2 % 9 Unknown COMPLETE BLOOD COUNT 8735447 Lymph Auto 27.3 % 04/04/20 19 Unknown COMPLETE BLOOD COUNT 7186886 [place] Auto 11.2 % 9 Unknown COMPLETE BLOOD COUNT 0985579 RDW 14.3 % 9 Unknown COMPLETE BLOOD COUNT 9980249 Eos Auto 3.4 % 9 Unknown COMPLETE BLOOD COUNT 1109440 Baso Auto 0.9 % 9 Unknown COMPLETE BLOOD COUNT 3086552 Neutrophil Abs 3.37 10e9/L Unknown COMPLETE BLOOD COUNT [id number] Lymphocyte Abs 1.61 10e9/L Unknown COMPLETE BLOOD COUNT [id number] Monocyte Abs 0.66 10e9/L 03/24 Unknown COMPLETE BLOOD COUNT [id number] Eosinophil Abs 0.20 10e9/L Unknown COMPLETE BLOOD COUNT 1743411 RDW-SD 46.6 fL 9 Unknown COMPLETE BLOOD COUNT [id number] Basophil Abs 0.05 10e9/L 03/24 Unknown THYROID STIMULATING HORMONE 19773 TSH 2.068 uIU/mL 04/04/2019 Unknown COMPREHENSIVE METABOLIC 23663 AST 17 U/L 2018 Unknown COMPREHENSIVE METABOLIC 85605 ALT 12 U/L 2018 Unknown COMPREHENSIVE METABOLIC 89374 BUN 17 mg/dL 2018 Unknown COMPREHENSIVE METABOLIC 83530 ALBUMIN 4.3 g/dL 2018 Unknown COMPREHENSIVE METABOLIC 04324 CHLORIDE 107 mmol/L 04/04 Unknown COMPREHENSIVE METABOLIC 39550 Bili Total 1.1 mg/dL 04/04 Unknown COMPREHENSIVE METABOLIC 06252 ALK PHOS 74 U/L 2018 Unknown COMPREHENSIVE METABOLIC 41379 SODIUM 144 mmol/L 04/04 Unknown COMPREHENSIVE METABOLIC 89215 CREATININE 0.70 mg/dL 03/24 Unknown COMPREHENSIVE METABOLIC 20859 CALCIUM 9.5 mg/dL 2018 Unknown COMPREHENSIVE METABOLIC 10005 POTASSIUM 4.1 mmol/L 04/04 Unknown COMPREHENSIVE METABOLIC 58393 Total Protein 6.8 g/dL Unknown COMPREHENSIVE METABOLIC 40848 Glucose 95 mg/dL 2018 Unknown COMPREHENSIVE METABOLIC 06204 Bicarbonate 29 mmol/L 03/24 Unknown COMPREHENSIVE METABOLIC 92405 AGAP 8 mmol/L 2018 Unknown FREE T4 02550 T4 Free 1.09 ng/dL 04/04/2019 Unknown LIPID GROUP 36372 Cholesterol 149 mg/dL 04/04/2019 Unkno wn LIPID GROUP 33739 Triglyceride 70 mg/dL 04/04/2019 Unkn own LIPID GROUP 63341 HDL CHOLESTEROL 62 mg/dL 04/04/2019 U nknown LIPID GROUP 78867 Chol/HDL Ratio 2.40 ratio 04/04/2019 U nknown LIPID GROUP 84946 NON-HDL Chol 87 mg/dL 04/04/2019 Unkn own LIPID GROUP 79396 LDL Cholesterol 73 mg/dL 04/04/2019 U nknown THYROID STIMULATING HORMONE 68848 TSH 3.698 uIU/mL 10/08/2018 Unknown FREE T4 56743 T4 Free 1.24 ng/dL 10/08/2018 Unknown GFR CALC 4670563 GFR Non Afr Amr >60 mL/min 10/07/2018 Un known GFR CALC 5048842 GFR Afr Amr >60 mL/min 10/07/2018 Unknow n COMPLETE BLOOD COUNT 0935273 WBC 6.3 10e9/L 10/07/19 19 Unknown COMPLETE BLOOD COUNT [id number] RBC 4.22 10e12/L 2018 Unknown COMPLETE BLOOD COUNT 4286844 HEMOGLOBIN 12.2 g/dL 10/07/19 19 Unknown COMPLETE BLOOD COUNT [id number] HEMATOCRIT 39.4 % 10/07/19 19 Unknown COMPLETE BLOOD COUNT 2735682 MCV 93.4 fL 9 Unknown COMPLETE BLOOD COUNT 2640275 MCH 28.9 pg 9 Unknown COMPLETE BLOOD COUNT 2409228 MCHC 31.0 g/dL 9 Unknown COMPLETE BLOOD COUNT 8009774 PLATELET COUNT 231 10e9/L Unknown COMPLETE BLOOD COUNT 7367120 Mean Plt Volume 11.2 fL Unknown COMPLETE BLOOD COUNT 7167639 Neut Auto 55.7 % 9 Unknown COMPLETE BLOOD COUNT 2380500 Lymph Auto 30.3 % 10/07/19 19 Unknown COMPLETE BLOOD COUNT 0477009 [place] Auto 9.6 % 9 Unknown COMPLETE BLOOD COUNT 8734539 RDW 14.0 % 9 Unknown COMPLETE BLOOD COUNT 3805452 Eos Auto 3.5 % 9 Unknown COMPLETE BLOOD COUNT 9975472 Baso Auto 0.9 % 9 Unknown COMPLETE BLOOD COUNT 6259645 Neutrophil Abs 3.51 10e9/L Unknown COMPLETE BLOOD COUNT [id number] Lymphocyte Abs 1.91 10e9/L Unknown COMPLETE BLOOD COUNT [id number] Monocyte Abs 0.60 10e9/L 09/24 Unknown COMPLETE BLOOD COUNT 9931821 Eosinophil Abs 0.22 10e9/L Unknown COMPLETE BLOOD COUNT [id number] RDW-SD 46.1 fL 9 Unknown COMPLETE BLOOD COUNT [id number] Basophil Abs 0.06 10e9/L 09/24 Unknown COMPREHENSIVE METABOLIC 78834 AST 14 U/L 2018 Unknown COMPREHENSIVE METABOLIC 56046 ALT 10 U/L 2018 Unknown COMPREHENSIVE METABOLIC 45702 BUN 21 mg/dL 2018 Unknown COMPREHENSIVE METABOLIC 16479 ALBUMIN 4.4 g/dL 2018 Unknown COMPREHENSIVE METABOLIC 61774 CHLORIDE 105 mmol/L 10/07 Unknown COMPREHENSIVE METABOLIC 45383 Bili Total 0.7 mg/dL 10/07 Unknown COMPREHENSIVE METABOLIC 81591 ALK PHOS 80 U/L 2018 Unknown COMPREHENSIVE METABOLIC 27709 SODIUM 143 mmol/L 10/07 Unknown COMPREHENSIVE METABOLIC 17002 CREATININE 0.67 mg/dL 09/24 Unknown COMPREHENSIVE METABOLIC 97135 CALCIUM 9.3 mg/dL 2018 Unknown COMPREHENSIVE METABOLIC 06092 POTASSIUM 3.8 mmol/L 10/07 Unknown COMPREHENSIVE METABOLIC 03170 Total Protein 7.0 g/dL Unknown COMPREHENSIVE METABOLIC 11015 Glucose 98 mg/dL 2018 Unknown COMPREHENSIVE METABOLIC 32098 Bicarbonate 32 mmol/L 09/24 Unknown COMPREHENSIVE METABOLIC 13042 AGAP 6 mmol/L 2018 Unknown LIPID GROUP 01922 Cholesterol 160 mg/dL 10/07/2018 Unkno wn LIPID GROUP 18803 Triglyceride 101 mg/dL 10/07/2018 Unkn own LIPID GROUP 77179 HDL CHOLESTEROL 63 mg/dL 10/07/2018 U nknown LIPID GROUP 99884 Chol/HDL Ratio 2.54 ratio 10/07/2018 U nknown LIPID GROUP 60428 NON-HDL Chol 97 mg/dL 10/07/2018 Unkn own LIPID GROUP 21295 LDL Cholesterol 77 mg/dL 10/07/2018 U nknown MEAN GLUC 3370936 Calc Mean Gluc 114 mg/dL 10/07/2018 Unkn own GLYCOSYLATED HEMOGLOBIN TEST 75408 Hgb A1c 24970-0 5.6 % 0 10/07/2018 Unknown FREE T4 09764 T4 Free 1.21 ng/dL 02/14/2018 Unknown THYROID STIMULATING HORMONE 19284 TSH 2.977 uIU/mL 02/14/2018 Unknown COMPLETE BLOOD COUNT 4737954 WBC 5.6 10e9/L 02/14/20 18 Unknown COMPLETE BLOOD COUNT 9247630 RBC 4.23 10e12/L 2017 Unknown COMPLETE BLOOD COUNT 9869717 HEMOGLOBIN 12.4 g/dL 02/14/20 18 Unknown COMPLETE BLOOD COUNT 0391454 HEMATOCRIT 39.1 % 02/14/20 18 Unknown COMPLETE BLOOD COUNT 5465066 MCV 92.4 fL 8 Unknown COMPLETE BLOOD COUNT 6984581 MCH 29.3 pg 8 Unknown COMPLETE BLOOD COUNT 6197713 MCHC 31.7 g/dL 8 Unknown COMPLETE BLOOD COUNT 4228379 PLATELET COUNT 268 10e9/L Unknown COMPLETE BLOOD COUNT 4495572 Mean Plt Volume 11.0 fL Unknown COMPLETE BLOOD COUNT 3101297 Neut Auto 52.1 % 8 Unknown COMPLETE BLOOD COUNT 0215613 Lymph Auto 32.0 % 02/14/20 18 Unknown COMPLETE BLOOD COUNT 6152653 [place] Auto 11.8 % 8 Unknown COMPLETE BLOOD COUNT 3058148 RDW 14.6 % 8 Unknown COMPLETE BLOOD COUNT 2821501 Eos Auto 3.2 % 8 Unknown COMPLETE BLOOD COUNT 1621368 Baso Auto 0.9 % 8 Unknown COMPLETE BLOOD COUNT 0970718 Neutrophil Abs 2.92 10e9/L Unknown COMPLETE BLOOD COUNT 9874341 Lymphocyte Abs 1.79 10e9/L Unknown COMPLETE BLOOD COUNT 1040958 Monocyte Abs 0.66 10e9/L 01/23 Unknown COMPLETE BLOOD COUNT 3621141 Eosinophil Abs 0.18 10e9/L Unknown COMPLETE BLOOD COUNT 6416992 RDW-SD 48.2 fL 8 Unknown COMPLETE BLOOD COUNT 2912453 Basophil Abs 0.05 10e9/L 01/23 Unknown GFR CALC 3884745 GFR Non Afr Amr >60 mL/min 02/13/2018 Un known GFR CALC 0278920 GFR Afr Amr >60 mL/min 02/13/2018 Unknow n COMPREHENSIVE METABOLIC 88149 AST 18 U/L 2017 Unknown COMPREHENSIVE METABOLIC 30600 ALT 13 U/L 2017 Unknown COMPREHENSIVE METABOLIC 66725 BUN 14 mg/dL 2017 Unknown COMPREHENSIVE METABOLIC 94320 ALBUMIN 4.3 g/dL 2017 Unknown COMPREHENSIVE METABOLIC 72490 CHLORIDE 108 mmol/L 02/13 Unknown COMPREHENSIVE METABOLIC 55955 Bili Total 0.8 mg/dL 02/13 Unknown COMPREHENSIVE METABOLIC 04920 ALK PHOS 82 U/L 2017 Unknown COMPREHENSIVE METABOLIC 63848 SODIUM 144 mmol/L 02/13 Unknown COMPREHENSIVE METABOLIC 86545 CREATININE 0.67 mg/dL 01/23 Unknown COMPREHENSIVE METABOLIC 08655 CALCIUM 9.4 mg/dL 2017 Unknown COMPREHENSIVE METABOLIC 46960 POTASSIUM 4.1 mmol/L 02/13 Unknown COMPREHENSIVE METABOLIC 96266 Total Protein 6.9 g/dL Unknown COMPREHENSIVE METABOLIC 95401 Glucose 103 mg/dL 2017 Unknown COMPREHENSIVE METABOLIC 86460 Bicarbonate 27 mmol/L 01/23 Unknown COMPREHENSIVE METABOLIC 30042 AGAP 9 mmol/L 2017 Unknown LIPID GROUP 31335 Cholesterol 169 mg/dL 10/15/2017 Unkno wn LIPID GROUP 03642 Triglyceride 99 mg/dL 10/15/2017 Unkn own LIPID GROUP 17163 HDL CHOLESTEROL 69 10/15/2017 U nknown LIPID GROUP 86890 Chol/HDL Ratio 2.45 ratio 10/15/2017 U nknown LIPID GROUP 01867 NON-HDL Chol 100 mg/dL 10/15/2017 Unkn own LIPID GROUP 11526 LDL Cholesterol 80 mg/dL 10/15/2017 U nknown COMPREHENSIVE METABOLIC 12726 AST 17 U/L 2017 Unknown COMPREHENSIVE METABOLIC 64258 ALT 13 U/L 2017 Unknown COMPREHENSIVE METABOLIC 27222 BUN 22 mg/dL 2017 Unknown COMPREHENSIVE METABOLIC 01575 ALBUMIN 4.5 g/dL 2017 Unknown COMPREHENSIVE METABOLIC 23389 CHLORIDE 99 mmol/L 2017 Unknown COMPREHENSIVE METABOLIC 94849 Bili Total 0.8 mg/dL 10/15 Unknown COMPREHENSIVE METABOLIC 05920 ALK PHOS 78 U/L 2017 Unknown COMPREHENSIVE METABOLIC 16891 SODIUM 150 mmol/L 10/15 Unknown COMPREHENSIVE METABOLIC 74415 CREATININE 0.73 mg/dL 09/25 Unknown COMPREHENSIVE METABOLIC 24741 CALCIUM 9.5 mg/dL 2017 Unknown COMPREHENSIVE METABOLIC 22689 POTASSIUM 4.2 mmol/L 10/15 Unknown COMPREHENSIVE METABOLIC 96126 Total Protein 7.2 g/dL Unknown COMPREHENSIVE METABOLIC 89893 Glucose 96 mg/dL 2017 Unknown COMPREHENSIVE METABOLIC 52670 Bicarbonate 29 mmol/L 09/25 Unknown COMPREHENSIVE METABOLIC 85526 AGAP 22 mmol/L 2017 Unknown GFR CALC 8689600 GFR Non Afr Amr >60 mL/min 10/15/2017 Un known GFR CALC 5805195 GFR Afr Amr >60 mL/min 10/15/2017 Unknow n THYROID STIMULATING HORMONE 07875 TSH 4.502 uIU/mL 10/15/2017 Unknown FREE T4 14613 T4 Free 1.44 ng/dL 10/15/2017 Unknown VITAMIN B 12 67886 VITAMIN B12 698 pg/mL 10/15/2017 Unkn own COMPLETE BLOOD COUNT 8598145 WBC 6.3 10e9/L 10/15/19 18 Unknown COMPLETE BLOOD COUNT 9919698 RBC 4.37 10e12/L 2017 Unknown COMPLETE BLOOD COUNT 6817172 HEMOGLOBIN 12.6 g/dL 10/15/19 18 Unknown COMPLETE BLOOD COUNT 1215758 HEMATOCRIT 40.3 % 10/15/19 18 Unknown COMPLETE BLOOD COUNT 9432446 MCV 92.2 fL 8 Unknown COMPLETE BLOOD COUNT 4404862 MCH 28.8 pg 8 Unknown COMPLETE BLOOD COUNT 3071707 MCHC 31.3 g/dL 8 Unknown COMPLETE BLOOD COUNT 6047565 PLATELET COUNT 256 10e9/L Unknown COMPLETE BLOOD COUNT 8800205 Mean Plt Volume 11.1 fL Unknown COMPLETE BLOOD COUNT 9695977 Neut Auto 54.8 % 8 Unknown COMPLETE BLOOD COUNT 8888240 Lymph Auto 30.5 % 10/15/19 18 Unknown COMPLETE BLOOD COUNT 3240710 [place] Auto 10.4 % 8 Unknown COMPLETE BLOOD COUNT 4860252 RDW 14.0 % 8 Unknown COMPLETE BLOOD COUNT 2025310 Eos Auto 3.8 % 8 Unknown COMPLETE BLOOD COUNT 4044107 Baso Auto 0.5 % 8 Unknown COMPLETE BLOOD COUNT 8434044 Neutrophil Abs 3.45 10e9/L Unknown COMPLETE BLOOD COUNT 6698133 Lymphocyte Abs 1.92 10e9/L Unknown COMPLETE BLOOD COUNT 3527691 Monocyte Abs 0.66 10e9/L 09/25 Unknown COMPLETE BLOOD COUNT 3647692 Eosinophil Abs 0.24 10e9/L Unknown COMPLETE BLOOD COUNT 5219307 RDW-SD 46.1 fL 8 Unknown COMPLETE BLOOD COUNT 8786311 Basophil Abs 0.03 10e9/L 09/25 Unknown VITAMIN B 12 14433 VITAMIN B12 823 pg/mL 03/30/2017 Unkn own VITAMIN B 12 16260 VITAMIN B12 321 pg/mL 12/18/2016 Unkn own COMPLETE BLOOD COUNT 4032609 WBC 6.8 10e9/L 12/12/19 17 Unknown COMPLETE BLOOD COUNT 9608447 RBC 4.37 10e12/L 2016 Unknown COMPLETE BLOOD COUNT 5017681 HEMOGLOBIN 12.5 g/dL 12/12/19 17 Unknown COMPLETE BLOOD COUNT 2954644 HEMATOCRIT 39.3 % 12/12/19 17 Unknown COMPLETE BLOOD COUNT 3758928 MCV 89.9 fL 7 Unknown COMPLETE BLOOD COUNT 2578675 MCH 28.6 pg 7 Unknown COMPLETE BLOOD COUNT 8557856 MCHC 31.8 g/dL 7 Unknown COMPLETE BLOOD COUNT 6985872 PLATELET COUNT 248 10e9/L Unknown COMPLETE BLOOD COUNT 0391758 Mean Plt Volume 10.9 fL Unknown COMPLETE BLOOD COUNT 6002015 Neut Auto 52.0 % 7 Unknown COMPLETE BLOOD COUNT 7118939 Lymph Auto 33.4 % 12/12/19 17 Unknown COMPLETE BLOOD COUNT 0346212 [place] Auto 10.1 % 7 Unknown COMPLETE BLOOD COUNT 2190737 RDW 14.6 % 7 Unknown COMPLETE BLOOD COUNT 3094641 Eos Auto 3.8 % 7 Unknown COMPLETE BLOOD COUNT 4526269 Baso Auto 0.7 % 7 Unknown COMPLETE BLOOD COUNT 2325500 Neutrophil Abs 3.54 10e9/L Unknown COMPLETE BLOOD COUNT 2889036 Lymphocyte Abs 2.27 10e9/L Unknown COMPLETE BLOOD COUNT 3740079 Monocyte Abs 0.69 10e9/L 11/23 Unknown COMPLETE BLOOD COUNT 3794353 Eosinophil Abs 0.26 10e9/L Unknown COMPLETE BLOOD COUNT 9098866 RDW-SD 47.4 fL 7 Unknown COMPLETE BLOOD COUNT 0587847 Basophil Abs 0.05 10e9/L 11/23 Unknown COMPREHENSIVE METABOLIC 97006 AST 16 U/L 2016 Unknown COMPREHENSIVE METABOLIC 18300 ALT 12 U/L 2016 Unknown COMPREHENSIVE METABOLIC 91400 BUN 22 mg/dL 2016 Unknown COMPREHENSIVE METABOLIC 56700 ALBUMIN 4.2 g/dL 2016 Unknown COMPREHENSIVE METABOLIC 25503 CHLORIDE 104 mmol/L 12/11 Unknown COMPREHENSIVE METABOLIC 83187 Bili Total 0.7 mg/dL 12/11 Unknown COMPREHENSIVE METABOLIC 99134 ALK PHOS 78 U/L 2016 Unknown COMPREHENSIVE METABOLIC 76453 SODIUM 143 mmol/L 12/11 Unknown COMPREHENSIVE METABOLIC 85335 CREATININE 0.69 mg/dL 11/23 Unknown COMPREHENSIVE METABOLIC 50201 CALCIUM 9.5 mg/dL 2016 Unknown COMPREHENSIVE METABOLIC 74732 POTASSIUM 3.9 mmol/L 12/11 Unknown COMPREHENSIVE METABOLIC 56999 Total Protein 7.1 g/dL Unknown COMPREHENSIVE METABOLIC 02009 Glucose 103 mg/dL 2016 Unknown COMPREHENSIVE METABOLIC 88537 Bicarbonate 30 mmol/L 11/23 Unknown COMPREHENSIVE METABOLIC 91020 AGAP 9 mmol/L 2016 Unknown GFR CALC 9975250 GFR Non Afr Amr >60 mL/min 12/11/2016 Un known GFR CALC 5884922 GFR Afr Amr >60 mL/min 12/11/2016 Unknow n MEAN GLUC 4755088 Calc Mean Gluc 120 mg/dL 12/11/2016 Unkn own LIPID GROUP 87646 Cholesterol 162 mg/dL 12/11/2016 Unkno wn LIPID GROUP 17536 Triglyceride 80 mg/dL 12/11/2016 Unkn own LIPID GROUP 33435 HDL CHOLESTEROL 65 mg/dL 12/11/2016 U nknown LIPID GROUP 62356 Chol/HDL Ratio 2.49 ratio 12/11/2016 U nknown LIPID GROUP 22088 NON-HDL Chol 97 mg/dL 12/11/2016 Unkn own LIPID GROUP 38663 LDL Cholesterol 81 mg/dL 12/11/2016 U nknown FREE T4 68909 T4 Free 1.46 ng/dL 12/11/2016 Unknown THYROID STIMULATING HORMONE 63155 TSH 2.578 uIU/mL 12/11/2016 Unknown GLYCOSYLATED HEMOGLOBIN TEST 65957 Hgb A1c 75048-6 5.8 % 0 12/11/2016 Unknown FREE T4 12467 FREE T4 1.68 NG/DL 05/27/2015 Unknown LIPID GROUP 50132 HDL TEST 67 MG/DL 05/27/2015 Unknown LIPID GROUP 18728 TRIG 92 MG/DL 05/27/2015 Unknown LIPID GROUP 55610 TEST LDL 84 MG/DL 05/27/2015 Unknown LIPID GROUP 93617 CHOL 169 MG/DL 05/27/2015 Unknown LIPID GROUP 38382 RCHOL/HDL 2.52 RATIO 05/27/2015 Unknow n LIPID GROUP 05085 NON-HDL CH 102 MG/DL 05/27/2015 Unknow n GLYCOSYLATED HEMOGLOBIN TEST 24984 A1C HPLC 07392-4 5.9 % 0 05/27/2015 Unknown VITAMIN B 12 54120 VIT B 12 308 PG/ML 05/27/2015 Unknow n GFR CALC 9222136 GFR AA >60 ML/MIN 05/27/2015 Unknown GFR CALC 5823380 GFR NON-AA >60 ML/MIN 05/27/2015 Unknown COMPREHENSIVE METABOLIC 45902 AST 20 U/L 2014 Unknown COMPREHENSIVE METABOLIC 72019 ALT 15 IU/L 2014 Unknown COMPREHENSIVE METABOLIC 14965 BUN 17 MG/DL 2014 Unknown COMPREHENSIVE METABOLIC 79948 ALBUMIN 4.3 GM/DL 2014 Unknown COMPREHENSIVE METABOLIC 01190 CHLORIDE 107 MMOL/L 05/27 Unknown COMPREHENSIVE METABOLIC 84017 BILI TOT 0.9 MG/DL 2014 Unknown COMPREHENSIVE METABOLIC 08647 ALK PHOS 85 U/L 2014 Unknown COMPREHENSIVE METABOLIC 81118 SODIUM 144 MMOL/L 05/27 Unknown COMPREHENSIVE METABOLIC 45644 CREATININE 0.76 MG/DL 11/2014 Unknown COMPREHENSIVE METABOLIC 17954 CALCIUM 9.5 MG/DL 2014 Unknown COMPREHENSIVE METABOLIC 39775 POTASSIUM 4.2 MMOL/L 05/27 Unknown COMPREHENSIVE METABOLIC 01904 PROT TOT 7.1 GM/DL 2014 Unknown COMPREHENSIVE METABOLIC 81740 Glucose 95 MG/DL 2014 Unknown COMPREHENSIVE METABOLIC 74083 BICARB 30 MMOL/L 2014 Unknown COMPREHENSIVE METABOLIC 94277 ANION GAP 7 MEQ/L 2014 Unknown COMPLETE BLOOD COUNT 7028123 WBC 6.5 10e9/L 05/27/20 15 Unknown COMPLETE BLOOD COUNT 7150004 RBC 4.35 10e12/L 2014 Unknown COMPLETE BLOOD COUNT 6217422 HGB 12.4 g/dL 5 Unknown COMPLETE BLOOD COUNT 5878870 HCT DET 39.3 % 5 Unknown COMPLETE BLOOD COUNT 6187232 MCV 90.3 fL 5 Unknown COMPLETE BLOOD COUNT 8244386 MCH 28.5 pg 5 Unknown COMPLETE BLOOD COUNT 2093596 MCHC 31.6 g/dL 5 Unknown COMPLETE BLOOD COUNT 4245526 PLT 245 10e9/L 05/27/20 15 Unknown COMPLETE BLOOD COUNT 7351403 MPV 11.1 fL 5 Unknown COMPLETE BLOOD COUNT 6359687 CRISTI % 53.9 % 5 Unknown COMPLETE BLOOD COUNT 2293632 LY % 30.8 % 5 Unknown COMPLETE BLOOD COUNT 5240291 MON % 11.2 % 5 Unknown COMPLETE BLOOD COUNT 5076013 EOS % 3.2 % 5 Unknown COMPLETE BLOOD COUNT 4093650 BASO % 0.9 % 5 Unknown COMPLETE BLOOD COUNT 2011896 RDW 14.5 % 5 Unknown COMPLETE BLOOD COUNT 9856984 ABS CRISTI 3.50 10e9/L 015 Unknown COMPLETE BLOOD COUNT 3049514 ABS LYMPH 2.00 10e9/L 015 Unknown COMPLETE BLOOD COUNT 5144075 ABS MONO 0.73 10e9/L 015 Unknown COMPLETE BLOOD COUNT 3779923 ABS EOS 0.21 10e9/L 015 Unknown COMPLETE BLOOD COUNT 3712257 ABS BASO 0.06 10e9/L 015 Unknown COMPLETE BLOOD COUNT 1262792 RDW-SD 46.3 fL 5 Unknown THYROID STIMULATING HORMONE 24884 TSH 2.909 uIU/ML 05/27/2015 Unknown IRON 13397 IRON TEST 63 UG/DL 12/15/2014 Unknown COMPLETE BLOOD COUNT 8937284 WBC 6.3 10e9/L 12/16/19 15 Unknown COMPLETE BLOOD COUNT 0635984 RBC 4.37 10e12/L 2014 Unknown COMPLETE BLOOD COUNT 5816837 HGB 12.6 g/dL 5 Unknown COMPLETE BLOOD COUNT 5168435 HCT DET 39.2 % 5 Unknown COMPLETE BLOOD COUNT 4370925 MCV 89.7 fL 5 Unknown COMPLETE BLOOD COUNT 4062660 MCH 28.8 pg 5 Unknown COMPLETE BLOOD COUNT 0486304 MCHC 32.1 g/dL 5 Unknown COMPLETE BLOOD COUNT 1296107 PLT 252 10e9/L 12/16/19 15 Unknown COMPLETE BLOOD COUNT 8345335 MPV 10.8 fL 5 Unknown COMPLETE BLOOD COUNT 9141442 CRISTI % 60.5 % 5 Unknown COMPLETE BLOOD COUNT 8478148 LY % 24.4 % 5 Unknown COMPLETE BLOOD COUNT 7399119 MON % 11.8 % 5 Unknown COMPLETE BLOOD COUNT 0945721 EOS % 2.7 % 5 Unknown COMPLETE BLOOD COUNT 2246539 BASO % 0.6 % 5 Unknown COMPLETE BLOOD COUNT 5637472 RDW 14.0 % 5 Unknown COMPLETE BLOOD COUNT 9196414 ABS CRISTI 3.81 10e9/L 015 Unknown COMPLETE BLOOD COUNT 9020013 ABS LYMPH 1.54 10e9/L 015 Unknown COMPLETE BLOOD COUNT 4060596 ABS MONO 0.74 10e9/L 015 Unknown COMPLETE BLOOD COUNT 0231474 ABS EOS 0.17 10e9/L 015 Unknown COMPLETE BLOOD COUNT 2784755 ABS BASO 0.04 10e9/L 015 Unknown COMPLETE BLOOD COUNT 6736203 RDW-SD 44.6 fL 5 Unknown GFR CALC 1400512 GFR AA >60 ML/MIN 11/26/2014 Unknown GFR CALC 1970348 GFR NON-AA >60 ML/MIN 11/26/2014 Unknown COMPREHENSIVE METABOLIC 83609 AST 16 U/L 2014 Unknown COMPREHENSIVE METABOLIC 51014 ALT 15 IU/L 2014 Unknown COMPREHENSIVE METABOLIC 10629 BUN 21 MG/DL 2014 Unknown COMPREHENSIVE METABOLIC 87626 ALBUMIN 4.4 GM/DL 2014 Unknown COMPREHENSIVE METABOLIC 46568 CHLORIDE 106 MMOL/L 11/26 Unknown COMPREHENSIVE METABOLIC 11384 BILI TOT 0.9 MG/DL 2014 Unknown COMPREHENSIVE METABOLIC 71972 ALK PHOS 83 U/L 2014 Unknown COMPREHENSIVE METABOLIC 06285 SODIUM 141 MMOL/L 11/26 Unknown COMPREHENSIVE METABOLIC 91841 CREATININE 0.68 MG/DL 01/2015 Unknown COMPREHENSIVE METABOLIC 79254 CALCIUM 9.4 MG/DL 2014 Unknown COMPREHENSIVE METABOLIC 87695 POTASSIUM 3.8 MMOL/L 11/26 Unknown COMPREHENSIVE METABOLIC 25095 PROT TOT 7.2 GM/DL 2014 Unknown COMPREHENSIVE METABOLIC 05939 Glucose 100 MG/DL 2014 Unknown COMPREHENSIVE METABOLIC 70106 BICARB 29 MMOL/L 2014 Unknown COMPREHENSIVE METABOLIC 63999 ANION GAP 6 MEQ/L 2014 Unknown LIPID GROUP 92611 HDL TEST 72 MG/DL 11/26/2014 Unknown LIPID GROUP 66113 TRIG 101 MG/DL 11/26/2014 Unknown LIPID GROUP 36614 TEST LDL 82 MG/DL 11/26/2014 Unknown LIPID GROUP 91138 CHOL 174 MG/DL 11/26/2014 Unknown LIPID GROUP 13720 RCHOL/HDL 2.42 RATIO 11/26/2014 Unknow n LIPID GROUP 86703 NON-HDL CH 102 MG/DL 11/26/2014 Unknow n GFR CALC 9180080 GFR AA >60 ML/MIN 08/14/2014 Unknown GFR CALC 6753990 GFR NON-AA >60 ML/MIN 08/14/2014 Unknown THYROID STIMULATING HORMONE 58356 TSH 2.261 uIU/ML 08/14/2014 Unknown COMPLETE BLOOD COUNT 7692114 WBC 5.8 10e9/L 08/14/20 14 Unknown COMPLETE BLOOD COUNT 7671628 RBC 4.33 10e12/L 2013 Unknown COMPLETE BLOOD COUNT 5746455 HGB 12.5 g/dL 4 Unknown COMPLETE BLOOD COUNT 2242164 HCT DET 39.2 % 4 Unknown COMPLETE BLOOD COUNT 0605279 MCV 90.5 fL 4 Unknown COMPLETE BLOOD COUNT 4967165 MCH 28.9 pg 4 Unknown COMPLETE BLOOD COUNT 2060840 MCHC 31.9 g/dL 4 Unknown COMPLETE BLOOD COUNT 1926372 PLT 260 10e9/L 08/14/20 14 Unknown COMPLETE BLOOD COUNT 1200542 MPV 10.9 fL 4 Unknown COMPLETE BLOOD COUNT 4448385 CRISTI % 52.9 % 4 Unknown COMPLETE BLOOD COUNT 7598364 LY % 31.0 % 4 Unknown COMPLETE BLOOD COUNT 3178709 MON % 11.3 % 4 Unknown COMPLETE BLOOD COUNT 3481483 EOS % 3.6 % 4 Unknown COMPLETE BLOOD COUNT 3132546 BASO % 1.2 % 4 Unknown COMPLETE BLOOD COUNT 0880608 RDW 13.9 % 4 Unknown COMPLETE BLOOD COUNT [id number] ABS CRISTI 3.07 10e9/L 014 Unknown COMPLETE BLOOD COUNT 5814566 ABS LYMPH 1.80 10e9/L 014 Unknown COMPLETE BLOOD COUNT 2881803 ABS MONO 0.66 10e9/L 014 Unknown COMPLETE BLOOD COUNT 2821666 ABS EOS 0.21 10e9/L 014 Unknown COMPLETE BLOOD COUNT 0546711 ABS BASO 0.07 10e9/L 014 Unknown COMPLETE BLOOD COUNT 9730178 RDW-SD 44.8 fL 4 Unknown COMPREHENSIVE METABOLIC 02758 AST 15 U/L 2013 Unknown COMPREHENSIVE METABOLIC 10645 ALT 13 IU/L 2013 Unknown COMPREHENSIVE METABOLIC 28379 BUN 18 MG/DL 2013 Unknown COMPREHENSIVE METABOLIC 13621 ALBUMIN 4.4 GM/DL 2013 Unknown COMPREHENSIVE METABOLIC 41409 CHLORIDE 105 MMOL/L 08/14 Unknown COMPREHENSIVE METABOLIC 72563 BILI TOT 1.0 MG/DL 2013 Unknown COMPREHENSIVE METABOLIC 82157 ALK PHOS 88 U/L 2013 Unknown COMPREHENSIVE METABOLIC 23488 SODIUM 143 MMOL/L 08/14 Unknown COMPREHENSIVE METABOLIC 24125 CREATININE 0.70 MG/DL 07/26 Unknown COMPREHENSIVE METABOLIC 85889 CALCIUM 9.6 MG/DL 2013 Unknown COMPREHENSIVE METABOLIC 25176 POTASSIUM 3.9 MMOL/L 08/14 Unknown COMPREHENSIVE METABOLIC 96117 PROT TOT 7.0 GM/DL 2013 Unknown COMPREHENSIVE METABOLIC 26916 Glucose 100 MG/DL 2013 Unknown COMPREHENSIVE METABOLIC 24267 BICARB 31 MMOL/L 2013 Unknown COMPREHENSIVE METABOLIC 43157 ANION GAP 7 MEQ/L 2013 Unknown FREE T4 97098 FREE T4 1.59 NG/DL 08/14/2014 Unknown LIPID GROUP 75467 HDL TEST 66 MG/DL 08/14/2014 Unknown LIPID GROUP 58863 TRIG 106 MG/DL 08/14/2014 Unknown LIPID GROUP 74435 TEST LDL 152 MG/DL 08/14/2014 Unknown LIPID GROUP 07621 CHOL 239 MG/DL 08/14/2014 Unknown LIPID GROUP 11224 RCHOL/HDL 3.62 RATIO 08/14/2014 Unknow n LIPID GROUP 23506 NON-HDL CH 173 MG/DL 08/14/2014 Unknow n COMPREHENSIVE METABOLIC 20952 AST 16 U/L 2013 Unknown COMPREHENSIVE METABOLIC 46432 ALT 13 IU/L 2013 Unknown COMPREHENSIVE METABOLIC 47583 BUN 20 MG/DL 2013 Unknown COMPREHENSIVE METABOLIC 76914 ALBUMIN 4.4 GM/DL 2013 Unknown COMPREHENSIVE METABOLIC 01385 CHLORIDE 104 MMOL/L 02/04 Unknown COMPREHENSIVE METABOLIC 93093 BILI TOT 0.8 MG/DL 2013 Unknown COMPREHENSIVE METABOLIC 56896 ALK PHOS 79 U/L 2013 Unknown COMPREHENSIVE METABOLIC 48732 SODIUM 141 MMOL/L 02/04 Unknown COMPREHENSIVE METABOLIC 61605 CREATININE 0.73 MG/DL 01/22 Unknown COMPREHENSIVE METABOLIC 27720 CALCIUM 9.6 MG/DL 2013 Unknown COMPREHENSIVE METABOLIC 77535 POTASSIUM 4.0 MMOL/L 02/04 Unknown COMPREHENSIVE METABOLIC 90132 PROT TOT 7.2 GM/DL 2013 Unknown COMPREHENSIVE METABOLIC 33940 Glucose 96 MG/DL 2013 Unknown COMPREHENSIVE METABOLIC 70762 BICARB 31 MMOL/L 2013 Unknown COMPREHENSIVE METABOLIC 03846 ANION GAP 6 MEQ/L 2013 Unknown GFR CALC 3542510 GFR AA >60 ML/MIN 02/04/2014 Unknown GFR CALC 5673486 GFR NON-AA >60 ML/MIN 02/04/2014 Unknown FREE T4 49458 FREE T4 1.59 NG/DL 02/04/2014 Unknown COMPLETE BLOOD COUNT 7349146 WBC 5.9 10e9/L 02/05/20 14 Unknown COMPLETE BLOOD COUNT 3032817 RBC 4.37 10e12/L 2013 Unknown COMPLETE BLOOD COUNT 4872816 HGB 12.6 g/dL 4 Unknown COMPLETE BLOOD COUNT [id number] HCT DET 39.0 % 4 Unknown COMPLETE BLOOD COUNT [id number] MCV 89.2 fL 4 Unknown COMPLETE BLOOD COUNT [id number] MCH 28.8 pg 4 Unknown COMPLETE BLOOD COUNT [id number] MCHC 32.3 g/dL 4 Unknown COMPLETE BLOOD COUNT [id number] PLT 265 10e9/L 02/05/20 14 Unknown COMPLETE BLOOD COUNT [id number] MPV 10.8 fL 4 Unknown COMPLETE BLOOD COUNT [id number] CRISTI % 55.5 % 4 Unknown COMPLETE BLOOD COUNT [id number] LY % 30.8 % 4 Unknown COMPLETE BLOOD COUNT [id number] MON % 10.0 % 4 Unknown COMPLETE BLOOD COUNT [id number] EOS % 2.7 % 4 Unknown COMPLETE BLOOD COUNT [id number] BASO % 1.0 % 4 Unknown COMPLETE BLOOD COUNT [id number] RDW 14.2 % 4 Unknown COMPLETE BLOOD COUNT [id number] ABS CRISTI 3.27 10e9/L 014 Unknown COMPLETE BLOOD COUNT [id number] ABS LYMPH 1.82 10e9/L 014 Unknown COMPLETE BLOOD COUNT [id number] ABS MONO 0.59 10e9/L 014 Unknown COMPLETE BLOOD COUNT [id number] ABS EOS 0.16 10e9/L 014 Unknown COMPLETE BLOOD COUNT [id number] ABS BASO 0.06 10e9/L 014 Unknown COMPLETE BLOOD COUNT [id number] RDW-SD 45.2 fL 4 Unknown LIPID GROUP 76625 HDL TEST 69 MG/DL 02/04/2014 Unknown LIPID GROUP 90246 TRIG 121 MG/DL 02/04/2014 Unknown LIPID GROUP 62717 TEST LDL 144 MG/DL 02/04/2014 Unknown LIPID GROUP 47631 CHOL 237 MG/DL 02/04/2014 Unknown LIPID GROUP 17131 RCHOL/HDL 3.43 RATIO 02/04/2014 Unknow n THYROID STIMULATING HORMONE 54849 TSH 2.310 uIU/ML 02/04/2014 Unknown THYROID STIMULATING HORMONE 24931 TSH 2.429 uIU/ML 03/18/2012 Unknown COMPREHENSIVE METABOLIC 95176 AST 17 U/L 2011 Unknown COMPREHENSIVE METABOLIC 31998 ALT 15 IU/L 2011 Unknown COMPREHENSIVE METABOLIC 41539 BUN 17 MG/DL 2011 Unknown COMPREHENSIVE METABOLIC 95819 ALBUMIN 4.1 GM/DL 2011 Unknown COMPREHENSIVE METABOLIC 35396 CHLORIDE 108 MMOL/L 03/18 Unknown COMPREHENSIVE METABOLIC 18950 BILI TOT 0.7 MG/DL 2011 Unknown COMPREHENSIVE METABOLIC 90565 ALK PHOS 79 U/L 2011 Unknown COMPREHENSIVE METABOLIC 67141 SODIUM 144 MMOL/L 03/18 Unknown COMPREHENSIVE METABOLIC 28443 CREATININE 0.68 MG/DL 02/23 Unknown COMPREHENSIVE METABOLIC 05037 CALCIUM 9.0 MG/DL 2011 Unknown COMPREHENSIVE METABOLIC 36432 POTASSIUM 3.7 MMOL/L 03/18 Unknown COMPREHENSIVE METABOLIC 91496 PROT TOT 6.6 GM/DL 2011 Unknown COMPREHENSIVE METABOLIC 54246 Glucose 99 MG/DL 2011 Unknown COMPREHENSIVE METABOLIC 18198 BICARB 28 MMOL/L 2011 Unknown COMPREHENSIVE METABOLIC 40596 ANION GAP 8 MEQ/L 2011 Unknown LIPID GROUP 45833 HDL TEST 65 MG/DL 03/18/2012 Unknown LIPID GROUP 43559 TRIG 86 MG/DL 03/18/2012 Unknown LIPID GROUP 20777 TEST LDL 153 MG/DL 03/18/2012 Unknown LIPID GROUP 39737 CHOL 235 MG/DL 03/18/2012 Unknown LIPID GROUP 22973 RCHOL/HDL 3.62 RATIO 03/18/2012 Unknow n GFR CALC [id number] GFR AA >60 ML/MIN 03/18/2012 Unknown GFR CALC [id number] GFR NON-AA >60 ML/MIN 03/18/2012 Unknown COMPLETE BLOOD COUNT 51906 WBC 5.1 10e9/L 03/18/20 12 Unknown COMPLETE BLOOD COUNT 91785 RBC 4.32 10e12/L 2011 Unknown COMPLETE BLOOD COUNT 97084 HGB 12.4 g/dL 2 Unknown COMPLETE BLOOD COUNT 06178 HCT DET 38.4 % 2 Unknown COMPLETE BLOOD COUNT 30432 MCV 88.9 fL 2 Unknown COMPLETE BLOOD COUNT 44598 MCH 28.7 pg 2 Unknown COMPLETE BLOOD COUNT 58827 MCHC 32.3 g/dL 2 Unknown COMPLETE BLOOD COUNT 44767 PLT 245 10e9/L 03/18/20 12 Unknown COMPLETE BLOOD COUNT 21800 MPV 10.7 fL 2 Unknown COMPLETE BLOOD COUNT 54885 CRISTI % 52.9 % 2 Unknown COMPLETE BLOOD COUNT 55102 LY % 31.5 % 2 Unknown COMPLETE BLOOD COUNT 16383 MON % 12.3 % 2 Unknown COMPLETE BLOOD COUNT 42618 EOS % 2.9 % 2 Unknown COMPLETE BLOOD COUNT 06171 BASO % 0.4 % 2 Unknown COMPLETE BLOOD COUNT 34118 RDW 13.9 % 2 Unknown COMPLETE BLOOD COUNT 31122 ABS CRISTI 2.70 10e9/L 012 Unknown COMPLETE BLOOD COUNT 59526 ABS LYMPH 1.61 10e9/L 012 Unknown COMPLETE BLOOD COUNT 12212 ABS MONO 0.63 10e9/L 012 Unknown COMPLETE BLOOD COUNT 10564 ABS EOS 0.15 10e9/L 012 Unknown COMPLETE BLOOD COUNT 51598 ABS BASO 0.02 10e9/L 012 Unknown COMPLETE BLOOD COUNT 17216 RDW-SD 44.5 fL 2 Unknown FREE T4 47574 FREE T4 1.50 NG/DL 03/18/2012 Unknown LIPID GROUP 17681 HDL TEST 61 MG/DL 07/13/2011 Unknown LIPID GROUP 21433 TRIG 158 MG/DL 07/13/2011 Unknown LIPID GROUP 49914 TEST LDL 131 MG/DL 07/13/2011 Unknown LIPID GROUP 41967 CHOL 224 MG/DL 07/13/2011 Unknown LIPID GROUP 63503 RCHOL/HDL 3.67 RATIO 07/13/2011 Unknow n COMPREHENSIVE METABOLIC 32133 AST 19 U/L 2010 Unknown COMPREHENSIVE METABOLIC 39164 ALT 17 IU/L 2010 Unknown COMPREHENSIVE METABOLIC 24389 BUN 14 MG/DL 2010 Unknown COMPREHENSIVE METABOLIC 24698 ALBUMIN 4.2 GM/DL 2010 Unknown COMPREHENSIVE METABOLIC 28939 CHLORIDE 105 MMOL/L 07/13 Unknown COMPREHENSIVE METABOLIC 32531 BILI TOT 0.9 MG/DL 2010 Unknown COMPREHENSIVE METABOLIC 69269 ALK PHOS 71 U/L 2010 Unknown COMPREHENSIVE METABOLIC 09646 SODIUM 141 MMOL/L 07/13 Unknown COMPREHENSIVE METABOLIC 01846 CREATININE 0.68 MG/DL 06/25 Unknown COMPREHENSIVE METABOLIC 66153 CALCIUM 9.3 MG/DL 2010 Unknown COMPREHENSIVE METABOLIC 48413 POTASSIUM 3.8 MMOL/L 07/13 Unknown COMPREHENSIVE METABOLIC 51084 PROT TOT 6.5 GM/DL 2010 Unknown COMPREHENSIVE METABOLIC 92086 Glucose 94 MG/DL 2010 Unknown COMPREHENSIVE METABOLIC 54009 BICARB 28 MMOL/L 2010 Unknown COMPREHENSIVE METABOLIC 00919 ANION GAP 8 MEQ/L 2010 Unknown COMPLETE BLOOD COUNT 10115 WBC 5.4 10e9/L 07/13/20 11 Unknown COMPLETE BLOOD COUNT 13457 RBC 4.20 10e12/L 2010 Unknown COMPLETE BLOOD COUNT 51500 HGB 12.4 g/dL 1 Unknown COMPLETE BLOOD COUNT 30300 HCT DET 37.6 % 1 Unknown COMPLETE BLOOD COUNT 96776 MCV 89.5 fL 1 Unknown COMPLETE BLOOD COUNT 84986 MCH 29.5 pg 1 Unknown COMPLETE BLOOD COUNT 51934 MCHC 33.0 g/dL 1 Unknown COMPLETE BLOOD COUNT 85519 PLT 273 10e9/L 07/13/20 11 Unknown COMPLETE BLOOD COUNT 47811 MPV 10.7 fL 1 Unknown COMPLETE BLOOD COUNT 52476 CRISTI % 49.9 % 1 Unknown COMPLETE BLOOD COUNT 26138 LY % 35.9 % 1 Unknown COMPLETE BLOOD COUNT 68881 MON % 10.4 % 1 Unknown COMPLETE BLOOD COUNT 48843 EOS % 2.9 % 1 Unknown COMPLETE BLOOD COUNT 16211 BASO % 0.9 % 1 Unknown COMPLETE BLOOD COUNT 83223 RDW 13.8 % 1 Unknown COMPLETE BLOOD COUNT 92736 ABS CRISTI 2.69 10e9/L 011 Unknown COMPLETE BLOOD COUNT 14268 ABS LYMPH 1.94 10e9/L 011 Unknown COMPLETE BLOOD COUNT 43731 ABS MONO 0.56 10e9/L 011 Unknown COMPLETE BLOOD COUNT 55141 ABS EOS 0.16 10e9/L 011 Unknown COMPLETE BLOOD COUNT 78354 ABS BASO 0.05 10e9/L 011 Unknown COMPLETE BLOOD COUNT 13327 RDW-SD 44.4 fL 1 Unknown GFR CALC 9607030 GFR AA >60 ML/MIN 07/13/2011 Unknown GFR CALC 3333120 GFR NON-AA >60 ML/MIN 07/13/2011 Unknown FREE T4 39091 FREE T4 1.36 NG/DL 07/13/2011 Unknown THYROID STIMULATING HORMONE 98329 TSH 4.261 uIU/ML 07/13/2011 Unknown GFR CALC 9817201 GFR AA >60 ML/MIN 03/13/2011 Unknown GFR CALC 5602241 GFR NON-AA >60 ML/MIN 03/13/2011 Unknown LIPID GROUP 63876 HDL TEST 60 MG/DL 03/13/2011 Unknown LIPID GROUP 76527 TRIG 140 MG/DL 03/13/2011 Unknown LIPID GROUP 57880 TEST LDL 122 MG/DL 03/13/2011 Unknown LIPID GROUP 07669 CHOL 210 MG/DL 03/13/2011 Unknown LIPID GROUP 41192 RCHOL/HDL 3.50 RATIO 03/13/2011 Unknow n FREE T4 95707 FREE T4 1.36 NG/DL 03/13/2011 Unknown THYROID STIMULATING HORMONE 19652 TSH 7.688 uIU/ML 03/13/2011 Unknown COMPREHENSIVE METABOLIC 68551 AST 17 U/L 2010 Unknown COMPREHENSIVE METABOLIC 53871 ALT 12 IU/L 2010 Unknown COMPREHENSIVE METABOLIC 61009 BUN 19 MG/DL 2010 Unknown COMPREHENSIVE METABOLIC 21826 ALBUMIN 4.3 GM/DL 2010 Unknown COMPREHENSIVE METABOLIC 13070 CHLORIDE 105 MMOL/L 03/13 Unknown COMPREHENSIVE METABOLIC 13960 BILI TOT 0.6 MG/DL 2010 Unknown COMPREHENSIVE METABOLIC 55434 ALK PHOS 68 U/L 2010 Unknown COMPREHENSIVE METABOLIC 91377 SODIUM 139 MMOL/L 03/13 Unknown COMPREHENSIVE METABOLIC 88403 CREATININE 0.77 MG/DL 02/23 Unknown COMPREHENSIVE METABOLIC 18176 CALCIUM 9.2 MG/DL 2010 Unknown COMPREHENSIVE METABOLIC 23965 POTASSIUM 3.8 MMOL/L 03/13 Unknown COMPREHENSIVE METABOLIC 70597 PROT TOT 6.9 GM/DL 2010 Unknown COMPREHENSIVE METABOLIC 67931 Glucose 97 MG/DL 2010 Unknown COMPREHENSIVE METABOLIC 22746 BICARB 25 MMOL/L 2010 Unknown COMPREHENSIVE METABOLIC 82303 ANION GAP 9 MEQ/L 2010 Unknown FREE T4 18137 FREE T4 1.32 NG/DL 12/16/2010 Unknown COMPLETE BLOOD COUNT 25646 WBC 5.6 10e9/L 12/17/19 11 Unknown COMPLETE BLOOD COUNT 34273 RBC 4.38 10e12/L 2010 Unknown COMPLETE BLOOD COUNT 47363 HGB 12.5 g/dL 1 Unknown COMPLETE BLOOD COUNT 78725 HCT DET 38.7 % 1 Unknown COMPLETE BLOOD COUNT 36499 MCV 88.4 fL 1 Unknown COMPLETE BLOOD COUNT 69971 MCH 28.5 pg 1 Unknown COMPLETE BLOOD COUNT 64356 MCHC 32.3 g/dL 1 Unknown COMPLETE BLOOD COUNT 05351 PLT 249 10e9/L 12/17/19 11 Unknown COMPLETE BLOOD COUNT 57042 MPV 10.5 fL 1 Unknown COMPLETE BLOOD COUNT 34647 CRISTI % 52.8 % 1 Unknown COMPLETE BLOOD COUNT 10646 LY % 33.3 % 1 Unknown COMPLETE BLOOD COUNT 19318 MON % 9.8 % 1 Unknown COMPLETE BLOOD COUNT 12071 EOS % 3.4 % 1 Unknown COMPLETE BLOOD COUNT 08626 BASO % 0.7 % 1 Unknown COMPLETE BLOOD COUNT 19773 RDW 14.2 % 1 Unknown COMPLETE BLOOD COUNT 80216 ABS CRISTI 2.96 10e9/L 011 Unknown COMPLETE BLOOD COUNT 63644 ABS LYMPH 1.86 10e9/L 011 Unknown COMPLETE BLOOD COUNT 76535 ABS MONO 0.55 10e9/L 011 Unknown COMPLETE BLOOD COUNT 51443 ABS EOS 0.19 10e9/L 011 Unknown COMPLETE BLOOD COUNT 93969 ABS BASO 0.04 10e9/L 011 Unknown COMPLETE BLOOD COUNT 03029 RDW-SD 45.1 fL 1 Unknown GFR CALC 7083488 GFR AA >60 ML/MIN 12/16/2010 Unknown GFR CALC 8100381 GFR NON-AA >60 ML/MIN 12/16/2010 Unknown THYROID STIMULATING HORMONE 61901 TSH 7.082 uIU/ML 12/16/2010 Unknown COMPREHENSIVE METABOLIC 57353 AST 21 U/L 2010 Unknown COMPREHENSIVE METABOLIC 61578 ALT 18 IU/L 2010 Unknown COMPREHENSIVE METABOLIC 43991 BUN 22 MG/DL 2010 Unknown COMPREHENSIVE METABOLIC 39689 ALBUMIN 4.6 GM/DL 2010 Unknown COMPREHENSIVE METABOLIC 27836 CHLORIDE 102 MMOL/L 12/16 Unknown COMPREHENSIVE METABOLIC 87601 BILI TOT 0.6 MG/DL 2010 Unknown COMPREHENSIVE METABOLIC 96324 ALK PHOS 72 U/L 2010 Unknown COMPREHENSIVE METABOLIC 66625 SODIUM 140 MMOL/L 12/16 Unknown COMPREHENSIVE METABOLIC 34787 CREATININE 0.73 MG/DL 11/23 Unknown COMPREHENSIVE METABOLIC 28364 CALCIUM 9.4 MG/DL 2010 Unknown COMPREHENSIVE METABOLIC 87315 POTASSIUM 4.2 MMOL/L 12/16 Unknown COMPREHENSIVE METABOLIC 65449 PROT TOT 7.1 GM/DL 2010 Unknown COMPREHENSIVE METABOLIC 93410 Glucose 88 MG/DL 2010 Unknown COMPREHENSIVE METABOLIC 91075 BICARB 30 MMOL/L 2010 Unknown COMPREHENSIVE METABOLIC 04882 ANION GAP 8 MEQ/L 2010 Unknown LIPID GROUP 71300 HDL TEST 66 MG/DL 12/16/2010 Unknown LIPID GROUP 75838 TRIG 154 MG/DL 12/16/2010 Unknown LIPID GROUP 81745 TEST LDL 128 MG/DL 12/16/2010 Unknown LIPID GROUP 14972 CHOL 225 MG/DL 12/16/2010 Unknown LIPID GROUP 95279 RCHOL/HDL 3.41 RATIO 12/16/2010 Unknow n Procedures Procedure Codes Date ROUTINE VENIPUNCTURE CPT-4: 44841 02/28/2022 RML ASSAY OF FREE THYROXINE CPT-4: 29174 02/28/2022 RML ASSAY THYROID STIM HORMONE CPT-4: 01829 RML COMPREHEN METABOLIC PANEL CPT-4: 65513 02/28/2022 RML COMPLETE CBC W/AUTO DIFF WBC CPT-4: 65332 022 RML LIPID PANEL CPT-4: 59402 02/28/2022 RML A1C HPLC CPT-4: 09913 02/28/2022 SARSCOV & INF VIR A&B AG IA CPT-4: 88968 08/09/2021 CLEAR OUTER EAR CANAL CPT-4: 68359 08/09/2021 ROUTINE VENIPUNCTURE CPT-4: 59346 07/20/2021 RML ASSAY OF FREE THYROXINE CPT-4: 06084 07/20/2021 RML ASSAY THYROID STIM HORMONE CPT-4: 00653 RML COMPREHEN METABOLIC PANEL CPT-4: 00820 07/20/2021 RML COMPLETE CBC W/AUTO DIFF WBC CPT-4: 00158 021 RML A1C HPLC CPT-4: 81356 07/20/2021 DESTRUCT B9 LESION 1-14 CPT-4: 80455 05/12/2021 THER/PROPH/DIAG INJ SC/IM CPT-4: 43594 03/08/2021 TRIAMCINOLONE ACET INJ NOS CPT-4: J3301 03/08/2021 ROUTINE VENIPUNCTURE CPT-4: 84471 01/31/2021 RML COMPREHEN METABOLIC PANEL CPT-4: 10865 01/31/2021 RML COMPLETE CBC W/AUTO DIFF WBC CPT-4: 86610 021 RML LIPID PANEL CPT-4: 81262 01/31/2021 RML ASSAY OF FREE THYROXINE CPT-4: 94159 01/31/2021 RML ASSAY THYROID STIM HORMONE CPT-4: 66037 1 RML A1C HPLC CPT-4: 76728 01/31/2021 EXC TR-EXT B9+JOSE G 0.5 CM< CPT-4: 45799 05/19/2020 PPPS, subseq visit CPT-4: G0439 05/11/2020 ROUTINE VENIPUNCTURE CPT-4: 18857 05/05/2020 RML ASSAY OF FREE THYROXINE CPT-4: 19714 05/05/2020 RML ASSAY THYROID STIM HORMONE CPT-4: 76376 0 RML COMPREHEN METABOLIC PANEL CPT-4: 97537 05/05/2020 RML COMPLETE CBC W/AUTO DIFF WBC CPT-4: 43571 020 RML LIPID PANEL CPT-4: 24293 05/05/2020 RML A1C HPLC CPT-4: 37582 05/05/2020 THER/PROPH/DIAG INJ SC/IM CPT-4: 03699 01/28/2020 TRIAMCINOLONE ACET INJ NOS CPT-4: J3301 01/28/2020 ROUTINE VENIPUNCTURE CPT-4: 10710 01/05/2020 RML ASSAY OF FREE THYROXINE CPT-4: 73865 01/05/2020 RML ASSAY THYROID STIM HORMONE CPT-4: 35988 0 RML COMPREHEN METABOLIC PANEL CPT-4: 17279 01/05/2020 RML COMPLETE CBC W/AUTO DIFF WBC CPT-4: 94922 020 ASSAY OF AMYLASE CPT-4: 73128 01/05/2020 ASSAY OF LIPASE CPT-4: 98575 01/05/2020 ROUTINE VENIPUNCTURE CPT-4: 24348 12/05/2019 RML COMPREHEN METABOLIC PANEL CPT-4: 40722 12/05/2019 ROUTINE VENIPUNCTURE CPT-4: 77330 11/05/2019 RML COMPREHEN METABOLIC PANEL CPT-4: 59536 11/05/2019 URINALYSIS NONAUTO W/O SCOPE CPT-4: 80417 10/23/2019 URINE CULTURE/ COLONY COUNT CPT-4: 09569 10/23/2019 ROUTINE VENIPUNCTURE CPT-4: 59077 10/21/2019 RML ASSAY OF FREE THYROXINE CPT-4: 55923 10/21/2019 RML ASSAY THYROID STIM HORMONE CPT-4: 73224 0 RML COMPREHEN METABOLIC PANEL CPT-4: 25375 10/21/2019 RML COMPLETE CBC W/AUTO DIFF WBC CPT-4: 62847 020 RML LIPID PANEL CPT-4: 88410 10/21/2019 HYDRATION IV INFUSION INIT CPT-4: 80697 10/20/2019 Removal impacted cerumen using irrigation/lavage, unilateral CPT-4: 68232 10/20/2019 ROUTINE VENIPUNCTURE CPT-4: 24289 04/04/2019 RML COMPLETE CBC W/AUTO DIFF WBC CPT-4: 71246 019 RML COMPREHEN METABOLIC PANEL CPT-4: 70078 04/04/2019 RML ASSAY THYROID STIM HORMONE CPT-4: 84261 9 RML ASSAY OF FREE THYROXINE CPT-4: 52874 04/04/2019 RML LIPID PANEL CPT-4: 00431 04/04/2019 PPPS, subseq visit CPT-4: G0439 11/26/2018 ROUTINE VENIPUNCTURE CPT-4: 15434 10/07/2018 RML ASSAY THYROID STIM HORMONE CPT-4: 87438 9 RML ASSAY OF FREE THYROXINE CPT-4: 57228 10/07/2018 RML COMPREHEN METABOLIC PANEL CPT-4: 42801 10/07/2018 RML COMPLETE CBC W/AUTO DIFF WBC CPT-4: 09818 019 RML LIPID PANEL CPT-4: 83245 10/07/2018 RML A1C HPLC CPT-4: 05189 10/07/2018 CERUM REMOVAL CPT-4: 93197 06/25/2018 THER/PROPH/DIAG INJ SC/IM CPT-4: 68580 05/03/2018 TRIAMCINOLONE ACET INJ NOS CPT-4: J3301 05/03/2018 Removal impacted cerumen using irrigation/lavage, unilateral CPT-4: 99551 02/19/2018 ROUTINE VENIPUNCTURE CPT-4: 04557 02/13/2018 RML ASSAY OF FREE THYROXINE CPT-4: 76524 02/13/2018 RML ASSAY THYROID STIM HORMONE CPT-4: 76085 8 RML COMPREHEN METABOLIC PANEL CPT-4: 79212 02/13/2018 RML COMPLETE CBC W/AUTO DIFF WBC CPT-4: 35746 018 ROUTINE VENIPUNCTURE CPT-4: 03944 10/15/2017 RML ASSAY OF FREE THYROXINE CPT-4: 69090 10/15/2017 RML ASSAY THYROID STIM HORMONE CPT-4: 69773 8 RML COMPREHEN METABOLIC PANEL CPT-4: 67542 10/15/2017 RML COMPLETE CBC W/AUTO DIFF WBC CPT-4: 34663 018 RML LIPID PANEL CPT-4: 43713 10/15/2017 VITAMIN B-12 CPT-4: 80561 10/15/2017 CERUM REMOVAL CPT-4: 22628 07/24/2017 ROUTINE VENIPUNCTURE CPT-4: 16948 03/30/2017 VITAMIN B-12 CPT-4: 11343 03/30/2017 ROUTINE VENIPUNCTURE CPT-4: 50269 12/18/2016 VITAMIN B-12 CPT-4: 30051 12/18/2016 PPPS, subseq visit CPT-4: G0439 12/18/2016 ROUTINE VENIPUNCTURE CPT-4: 70902 12/11/2016 RML ASSAY OF FREE THYROXINE CPT-4: 37874 12/11/2016 RML ASSAY THYROID STIM HORMONE CPT-4: 56072 7 RML COMPREHEN METABOLIC PANEL CPT-4: 33126 12/11/2016 RML COMPLETE CBC W/AUTO DIFF WBC CPT-4: 20528 017 RML LIPID PANEL CPT-4: 10284 12/11/2016 RML A1C HPLC CPT-4: 74554 12/11/2016 URINALYSIS NONAUTO W/O SCOPE CPT-4: 15105 02/07/2016 ROUTINE VENIPUNCTURE CPT-4: 01417 05/27/2015 RML ASSAY OF FREE THYROXINE CPT-4: 46378 05/27/2015 RML ASSAY THYROID STIM HORMONE CPT-4: 37498 5 RML COMPREHEN METABOLIC PANEL CPT-4: 18151 05/27/2015 RML COMPLETE CBC W/AUTO DIFF WBC CPT-4: 68401 015 RML LIPID PANEL CPT-4: 30753 05/27/2015 VITAMIN B-12 CPT-4: 58526 05/27/2015 RML A1C HPLC CPT-4: 55059 05/27/2015 PNEUMOCOCCAL VACC 13 LEN IM CPT-4: 63080 05/26/2015 ADMIN PNEUMOCOCCAL VACCINE CPT-4: G0009 05/26/2015 CUR TOBACCO NON-USER CPT-4: G8457 05/26/2015 OCCULT BLOOD FECES CPT-4: 19809 02/19/2015 OCCULT BLOOD FECES CPT-4: 22441 01/20/2015 ROUTINE VENIPUNCTURE CPT-4: 67379 12/15/2014 ASSAY OF IRON CPT-4: 15106 12/15/2014 RML COMPLETE CBC W/AUTO DIFF WBC CPT-4: 16960 015 CERUM REMOVAL CPT-4: 70360 11/30/2014 PRESCRIP TRANSMIT VIA ERX SY CPT-4: G8553 11/30/2014 ROUTINE VENIPUNCTURE CPT-4: 21817 11/26/2014 RML COMPREHEN METABOLIC PANEL CPT-4: 33797 11/26/2014 RML LIPID PANEL CPT-4: 61678 11/26/2014 ROUTINE VENIPUNCTURE CPT-4: 98066 08/14/2014 RML ASSAY OF FREE THYROXINE CPT-4: 15210 08/14/2014 RML ASSAY THYROID STIM HORMONE CPT-4: 49442 4 RML COMPREHEN METABOLIC PANEL CPT-4: 57770 08/14/2014 RML COMPLETE CBC W/AUTO DIFF WBC CPT-4: 31918 014 RML LIPID PANEL CPT-4: 99189 08/14/2014 PRESCRIP TRANSMIT VIA ERX SY CPT-4: G8553 07/23/2014 PRESCRIP TRANSMIT VIA ERX SY CPT-4: G8553 03/09/2014 PRESCRIP TRANSMIT VIA ERX SY CPT-4: G8553 02/05/2014 ROUTINE VENIPUNCTURE CPT-4: 66712 02/04/2014 RML ASSAY OF FREE THYROXINE CPT-4: 01928 02/04/2014 RML ASSAY THYROID STIM HORMONE CPT-4: 13998 4 RML COMPREHEN METABOLIC PANEL CPT-4: 44632 02/04/2014 RML COMPLETE CBC W/AUTO DIFF WBC CPT-4: 35844 014 RML LIPID PANEL CPT-4: 41584 02/04/2014 DRAIN/INJECT JOINT/BURSA CPT-4: 62016 04/07/2013 METHYLPREDNISOLONE 40 MG INJ CPT-4: J1030 04/07/2013 TRIAMCINOLONE ACET INJ NOS CPT-4: J3301 04/07/2013 PRESCRIP TRANSMIT VIA ERX SY CPT-4: G8553 04/07/2013 DRAIN/INJECT JOINT/BURSA CPT-4: 71191 10/09/2012 METHYLPREDNISOLONE 40 MG INJ CPT-4: J1030 10/09/2012 TRIAMCINOLONE ACET INJ NOS CPT-4: J3301 10/09/2012 PRESCRIP TRANSMIT VIA ERX SY CPT-4: G8553 03/28/2012 ROUTINE VENIPUNCTURE CPT-4: 97290 03/18/2012 RML ASSAY OF FREE THYROXINE CPT-4: 92429 03/18/2012 RML ASSAY THYROID STIM HORMONE CPT-4: 08823 2 RML COMPREHEN METABOLIC PANEL CPT-4: 94634 03/18/2012 RML COMPLETE CBC W/AUTO DIFF WBC CPT-4: 69371 012 RML LIPID PANEL CPT-4: 42108 03/18/2012 CERUM REMOVAL CPT-4: 45070 2012 OCCULT BLOOD FECES CPT-4: 66540 09/27/2011 CA SCREEN;PELVIC/BREAST EXAM CPT-4: G0101 09/27/2011 OBTAINING SCREEN PAP SMEAR CPT-4: Q0091 09/27/2011 CUR TOBACCO NON-USER CPT-4: G8457 09/13/2011 PRESCRIP TRANSMIT VIA ERX SY CPT-4: G8553 09/13/2011 PRESCRIP TRANSMIT VIA ERX SY CPT-4: G8553 08/07/2011 ROUTINE VENIPUNCTURE CPT-4: 05492 07/13/2011 RML ASSAY OF FREE THYROXINE CPT-4: 27120 07/13/2011 RML ASSAY THYROID STIM HORMONE CPT-4: 59854 1 RML COMPREHEN METABOLIC PANEL CPT-4: 88885 07/13/2011 RML COMPLETE CBC W/AUTO DIFF WBC CPT-4: 16483 011 RML LIPID PANEL CPT-4: 35684 07/13/2011 ROUTINE VENIPUNCTURE CPT-4: 36452 03/13/2011 RML COMPREHEN METABOLIC PANEL CPT-4: 11146 03/13/2011 RML LIPID PANEL CPT-4: 61017 03/13/2011 RML ASSAY THYROID STIM HORMONE CPT-4: 46430 1 RML ASSAY OF FREE THYROXINE CPT-4: 78525 03/13/2011 PRESCRIP TRANSMIT VIA ERX SY CPT-4: G8553 01/04/2011 ROUTINE VENIPUNCTURE CPT-4: 01243 12/16/2010 RML LIPID PANEL CPT-4: 23690 12/16/2010 RML COMPLETE CBC W/AUTO DIFF WBC CPT-4: 50278 011 RML COMPREHEN METABOLIC PANEL CPT-4: 80291 12/16/2010 RML ASSAY OF FREE THYROXINE CPT-4: 14915 12/16/2010 RML ASSAY THYROID STIM HORMONE CPT-4: 37929 1 INJ TRIGGER POINT 1/2 MUSCL CPT-4: 98764 02/14/2010 TRIAMCINOLONE ACET INJ NOS CPT-4: J3301 02/14/2010 METHYLPREDNISOLONE 40 MG INJ CPT-4: J1030 02/14/2010 THER/PROPH/DIAG INJ SC/IM CPT-4: 70058 02/07/2010 KETOROLAC TROMETHAMINE INJ CPT-4: J1885 02/07/2010 ROUTINE VENIPUNCTURE CPT-4: 53474 12/22/2009 Vital Signs Date Vital 08/02/2022 Blood Pressure 1: 141/102 Code: 8480-6 BMI: 26.4 Code: 66506-0 Heart Rate 1: 91 bpm Height: 5'10" Code: 8302-2 SpO2: 98% Temperature: 36.2 (C) / 97.1 (F) Weight: 184 lbs Code: 28148-6 06/26/2022 Blood Pressure 1: 132/78 Code: 8480-6 BMI: 25.5 Code: 73719-5 Heart Rate 1: 96 bpm Height: 5'10" Code: 8302-2 SpO2: 98% Temperature: 36.2 (C) / 97.2 (F) Weight: 178 lbs Code: 31998-7 05/22/2022 Blood Pressure 1: 126/82 Code: 8480-6 BMI: 25.5 Code: 40183-5 Heart Rate 1: 104 bpm Height: 5'10" Code: 8302-2 Respiratory Rate: 20 bpm SpO2: 96% Temperature: 36.8 (C) / 98.2 (F) Weight: 178 lbs Code: 69584-5 02/27/2022 Blood Pressure 1: 142/82 Code: 8480-6 BMI: 25.5 Code: 61769-4 Heart Rate 1: 112 bpm Height: 5'10" Code: 8302-2 Respiratory Rate: 20 bpm SpO2: 96% Temperature: 36.8 (C) / 98.3 (F) Weight: 178 lbs Code: 59383-9 11/23/2021 Blood Pressure 1: 136/82 Code: 8480-6 BMI: 25.7 Code: 90569-9 Heart Rate 1: 72 bpm Height: 5'10" Code: 8302-2 Respiratory Rate: 20 bpm SpO2: 98% Temperature: 36.6 (C) / 97.9 (F) Weight: 179 lbs Code: 62892-0 10/12/2021 Blood Pressure 1: 128/92 Code: 8480-6 BMI: 25.5 Code: 09519-0 Heart Rate 1: 68 bpm Height: 5'10" Code: 8302-2 Respiratory Rate: 20 bpm SpO2: 98% Temperature: 36.7 (C) / 98.1 (F) Weight: 178 lbs Code: 05533-3 08/09/2021 Blood Pressure 1: 127/80 Code: 8480-6 Heart Rate 1: 69 bpm Respiratory Rate: 15 bpm SpO2: 98% Temperature: 36.7 (C) / 98.0 (F) We ight: 171 lbs Code: 21398-1 07/28/2021 Blood Pressure 1: 132/78 Code: 8480-6 Heart Rate 1: 76 bpm Respiratory Rate: 20 bpm SpO2: 96% Temperature: 36.8 (C) / 98.2 (F) We ight: 174 lbs Code: 08238-5 05/12/2021 Blood Pressure 1: 142/80 Code: 8480-6 Heart Rate 1: 76 bpm Respiratory Rate: 20 bpm SpO2: 96% Temperature: 36.8 (C) / 98.2 (F) We ight: 173 lbs Code: 35901-9 03/08/2021 Blood Pressure 1: 124/80 Code: 8480-6 Heart Rate 1: 88 bpm Respiratory Rate: 20 bpm SpO2: 98% Temperature: 36.8 (C) / 98.3 (F) We ight: 175 lbs Code: 51889-8 02/03/2021 Blood Pressure 1: 144/84 Code: 8480-6 Heart Rate 1: 68 bpm Respiratory Rate: 20 bpm SpO2: 97% Temperature: 36.7 (C) / 98.1 (F) We ight: 182 lbs Code: 27460-9 01/04/2021 Blood Pressure 1: 152/86 Code: 8480-6 Heart Rate 1: 72 bpm Respiratory Rate: 20 bpm SpO2: 97% Temperature: 36.6 (C) / 97.8 (F) We ight: 182 lbs Code: 33275-2 10/05/2020 Blood Pressure 1: 124/66 Code: 8480-6 He art Rate 1: 65 bpm 09/20/2020 Blood Pressure 1: 134/76 Code: 8480-6 Heart Rate 1: 60 bpm Respiratory Rate: 20 bpm SpO2: 97% Temperature: 36.1 (C) / 97.0 (F) We ight: 187 lbs Code: 48674-4 05/28/2020 Temperature: 36.8 (C) / 98.3 (F) 05/19/2020 Blood Pressure 1: 128/78 Code: 8480-6 Heart Rate 1: 50 bpm Respiratory Rate: 20 bpm SpO2: 98% Temperature: 36.5 (C) / 97.7 (F) 05/11/2020 Blood Pressure 1: 126/80 Code: 8480-6 BMI: 25.4 Code: 37630-5 Heart Rate 1: 60 bpm Height: 5'10" Code: 8302-2 Respiratory Rate: 20 bpm Temperat ure: 36.6 (C) / 97.8 (F) Weight: 177 lbs Code: 94569-9 05/05/2020 Blood Pressure 1: 122/78 Code: 8480-6 [...] 1: 104/66 Code: 8480-6 BMI: 25.4 Code: 33500-8 Heart Rate 1: 56 bpm Height: 5'10" Code: 8302-2 Respiratory Rate: 20 bpm SpO2: 97% Temperature: 36.6 (C) / 97.8 (F) Weight: 177 lbs Code: 41559-7 10/29/2019 Blood Pressure 1: 114/62 Code: 8480-6 Heart Rate 1: 68 bpm Respiratory Rate: 20 bpm SpO2: 99% Temperature: 36.8 (C) / 98.2 (F) 10/20/2019 Blood Pressure 1: 119/74 Code: 8480-6 Heart Rate 1: 57 bpm Respiratory Rate: 16 bpm SpO2: 99% Temperature: 36.9 (C) / 98.4 (F) We ight: 176 lbs Code: 70691-6 07/07/2019 Blood Pressure 1: 126/74 Code: 8480-6 Heart Rate 1: 72 bpm Respiratory Rate: 16 bpm SpO2: 95% Temperature: 36.8 (C) / 98.2 (F) We ight: 179 lbs Code: 46171-3 05/01/2019 Blood Pressure 1: 126/76 Code: 8480-6 Heart Rate 1: 60 bpm Respiratory Rate: 20 bpm SpO2: 97% Temperature: 36.8 (C) / 98.2 (F) 04/15/2019 Blood Pressure 1: 154/94 Code: 8480-6 BMI: 26.0 Code: 10184-1 Heart Rate 1: 60 bpm Height: 5'10" Code: 8302-2 Respiratory Rate: 18 bpm SpO2: 97% Temperature: 36.6 (C) / 97.9 (F) Weight: 181 lbs Code: 56052-7 11/26/2018 Blood Pressure 1: 142/80 Code: 8480-6 BMI: 26.3 Code: 59864-4 Heart Rate 1: 56 bpm Height: 5'10" Code: 8302-2 Respiratory Rate: 20 bpm SpO2: 97% Temperature: 36.9 (C) / 98.4 (F) Weight: 183 lbs Code: 66265-6 08/08/2018 Blood Pressure 1: 126/68 Code: 8480-6 Heart Rate 1: 76 bpm Height: 5'10" Code: 8302-2 Respiratory Rate: 20 bpm SpO2: 97% Temperature: 36 .7 (C) / 98.0 (F) Weight: Code: 33221-4 06/25/2018 Blood Pressure 1: 112/70 Code: 8480-6 BMI: 25.8 Code: 98649-6 Heart Rate 1: 64 bpm Height: 5'10" Code: 8302-2 Respiratory Rate: 20 bpm SpO2: 95% Temperature: 36.9 (C) / 98.4 (F) Weight: 180 lbs Code: 70325-0 05/20/2018 Blood Pressure 1: 132/100 Code: 8480-6 H eart Rate 1: 76 bpm 05/10/2018 Blood Pressure 1: 144/86 Code: 8480-6 Heart Rate 1: 60 bpm Respiratory Rate: 20 bpm SpO2: 97% Temperature: 36.9 (C) / 98.4 (F) We ight: Code: 49233-8 05/03/2018 Blood Pressure 1: 126/92 Code: 8480-6 Bl ood Pressure 2: 147/79 Code: 8480-6 Heart Rate 1: 64 bpm Height: 5'10" Code: 8302-2 Respiratory Rate : 22 bpm SpO2: 98% Temperature: 36.3 (C) / 97.3 (F) Weight: Code: 38533- 7 04/22/2018 Blood Pressure 1: 140/82 Code: 8480-6 BMI: 26.3 Code: 01884-3 Heart Rate 1: 60 bpm Height: 5'10" Code: 8302-2 Respiratory Rate: 20 bpm SpO2: 95% Temperature: 36.8 (C) / 98.2 (F) Weight: 183 lbs Code: 56389-1 03/05/2018 Blood Pressure 1: 122/64 Code: 8480-6 BMI: 25.7 Code: 91230-9 Heart Rate 1: 82 bpm Height: 5'10" Code: 8302-2 Respiratory Rate: 22 bpm SpO2: 96% Temperature: 36.4 (C) / 97.6 (F) Weight: 179 lbs Code: 85980-0 02/19/2018 Blood Pressure 1: 120/84 Code: 8480-6 Heart Rate 1: 68 bpm SpO2: 96% Temperature: 36.2 (C) / 97.2 (F) Weight: Code: 96143-5 02/13/2018 Blood Pressure 1: 138/90 Cod e: 8480-6 10/18/2017 Blood Pressure 1: 122/78 Code: 8480-6 BMI: 26.5 Code: 10278-7 Heart Rate 1: 72 bpm Height: 5'10" Code: 8302-2 Respiratory Rate: 20 bpm Temperat ure: 36.7 (C) / 98.0 (F) Weight: 185 lbs Code: 52759-1 07/24/2017 Blood Pressure 1: 118/68 Code: 8480-6 Heart Rate 1: 82 bpm Height: 5'10" Code: 8302-2 Respiratory Rate: 20 bpm SpO2: 92% Temperature: 36 .4 (C) / 97.6 (F) Weight: Code: 33753-6 06/14/2017 Blood Pressure 1: 156/98 Code: 8480-6 Heart Rate 1: 84 bpm Height: 5'10" Code: 8302-2 Respiratory Rate: 20 bpm SpO2: 96% Temperature: 36 .9 (C) / 98.5 (F) Weight: Code: 49751-0 06/01/2017 Blood Pressure 1: 122/82 Code: 8480-6 Heart Rate 1: 68 bpm Height: 5'10" Code: 8302-2 Respiratory Rate: 20 bpm Temperature: 36.8 (C) / 98.2 (F) 03/30/2017 Blood Pressure 1: 124/78 Code: 8480-6 Heart Rate 1: 88 bpm Height: 5'10" Code: 8302-2 Respiratory Rate: 20 bpm SpO2: 96% Temperature: 36 .9 (C) / 98.4 (F) Weight: Code: 01717-0 01/17/2017 Blood Pressure 1: 126/74 Code: 8480-6 Heart Rate 1: 72 bpm Height: 5'10" Code: 8302-2 Respiratory Rate: 20 bpm SpO2: 96% Temperature: 37 .0 (C) / 98.6 (F) Weight: Code: 53748-0 12/18/2016 Blood Pressure 1: 128/86 Code: 8480-6 BMI: 24.7 Code: 59525-4 Heart Rate 1: 76 bpm Height: 5'10" Code: 8302-2 Respiratory Rate: 20 bpm SpO2: 96% Temperature: 36.8 (C) / 98.3 (F) Weight: 172 lbs Code: 82043-4 11/02/2016 Blood Pressure 1: 128/80 Code: 8480-6 BMI: 24.7 Code: 27468-8 Heart Rate 1: 72 bpm Height: 5'10" Code: 8302-2 Respiratory Rate: 20 bpm SpO2: 94% Temperature: 36.9 (C) / 98.4 (F) Weight: 172 lbs Code: 83115-2 10/24/2016 Blood Pressure 1: 120/78 Code: 8480-6 BMI: 24.7 Code: 85822-0 Heart Rate 1: 88 bpm Height: 5'10" Code: 8302-2 Respiratory Rate: 18 bpm SpO2: 96% Temperature: 36.5 (C) / 97.7 (F) Weight: 172 lbs Code: 73644-3 02/07/2016 Heart Rate 1: 76 bpm Respiratory Rate: 22 bpm SpO2: 96 % Temperature: 36.4 (C) / 97.6 (F) Weight: Code: 46281-5 05/26/2015 Blood Pressure 1: 124/70 Code: 8480-6 BMI: 25.1 Code: 97588-9 Heart Rate 1: 84 bpm Height: 5'10" Code: 8302-2 Respiratory Rate: 20 bpm Temperat ure: 36.7 (C) / 98.1 (F) Weight: 175 lbs Code: 30179-2 11/30/2014 Blood Pressure 1: 142/94 Code: 8480-6 BMI: 25.1 Code: 37514-6 Heart Rate 1: 80 bpm Height: 5'10" Code: 8302-2 Respiratory Rate: 20 bpm Temperat ure: 36.9 (C) / 98.5 (F) Weight: 175 lbs Code: 31145-4 07/23/2014 Blood Pressure 1: 138/86 Code: 8480-6 BMI: 25.0 Code: 91233-5 Heart Rate 1: 80 bpm Height: 5'10" Code: 8302-2 Respiratory Rate: 20 bpm Temperat ure: 36.4 (C) / 97.6 (F) Weight: 174 lbs Code: 41510-6 03/09/2014 Blood Pressure 1: 122/78 Code: 8480-6 BMI: 25.0 Code: 34160-0 Heart Rate 1: 78 bpm Height: 5'10" Code: 8302-2 Respiratory Rate: 24 bpm Temperat ure: 36.4 (C) / 97.6 (F) Weight: 174 lbs Code: 47894-6 02/05/2014 Blood Pressure 1: 132/80 Code: 8480-6 BMI: 25.0 Code: 42162-3 Heart Rate 1: 84 bpm Height: 5'10" Code: 8302-2 Respiratory Rate: 20 bpm Temperat ure: 36.6 (C) / 97.9 (F) Weight: 174 lbs Code: 25144-1 05/12/2013 Blood Pressure 1: 138/94 Code: 8480-6 BMI: 25.1 Code: 15573-9 Heart Rate 1: 92 bpm Height: 5'10" Code: 8302-2 Respiratory Rate: 20 bpm Temperat ure: 36.7 (C) / 98.1 (F) Weight: 175 lbs Code: 98473-3 04/07/2013 Blood Pressure 1: 136/72 Code: 8480-6 BMI: 25.1 Code: 69332-5 Heart Rate 1: 76 bpm Height: 5'10" Code: 8302-2 Respiratory Rate: 20 bpm Temperat ure: 36.7 (C) / 98.0 (F) Weight: 175 lbs Code: 35722-8 03/31/2013 Blood Pressure 1: 132/94 Code: 8480-6 BMI: 25.1 Code: 06900-7 Heart Rate 1: 76 bpm Height: 5'10" Code: 8302-2 Respiratory Rate: 20 bpm Temperat ure: 36.7 (C) / 98.0 (F) Weight: 175 lbs Code: 56692-0 10/09/2012 Blood Pressure 1: 132/80 Code: 8480-6 BMI: 24.8 Code: 32910-8 Heart Rate 1: 88 bpm Height: 5'10" Code: 8302-2 Temperature: 36.8 (C) / 98.3 (F) Weight: 173 lbs Code: 53176-6 03/28/2012 Blood Pressure 1: 126/82 Code: 8480-6 BMI: 24.7 Code: 61144-8 Heart Rate 1: 72 bpm Height: 5'10" Code: 8302-2 Respiratory Rate: 20 bpm Temperat ure: 36.6 (C) / 97.8 (F) Weight: 172 lbs Code: 84749-0 2012 Blood Pressure 1: 130/72 Code: 8480-6 Heart Rate 1: 80 bpm Height: Code: 8302-2 Temperature: 36.5 (C) / 97.7 (F) Weight: Code: 69094- 7 09/27/2011 Blood Pressure 1: 116/78 Code: 8480-6 BMI: 24.4 Code: 47521-1 Heart Rate 1: 76 bpm Height: 5'10" Code: 8302-2 Respiratory Rate: 20 bpm Temperat ure: 36.9 (C) / 98.4 (F) Weight: 170 lbs Code: 62934-0 09/13/2011 Blood Pressure 1: 124/82 Code: 8480-6 BMI: 24.4 Code: 15252-4 Heart Rate 1: 72 bpm Height: 5'10" Code: 8302-2 Respiratory Rate: 20 bpm Temperat ure: 36.4 (C) / 97.6 (F) Weight: 170 lbs Code: 65232-7 08/07/2011 Blood Pressure 1: 110/74 Code: 8480-6 BMI: 23.2 Code: 37083-8 Heart Rate 1: 60 bpm Height: 5'11" Code: 8302-2 Temperature: 36.4 (C) / 97.5 (F) Weight: 166 lbs Code: 50200-7 02/06/2011 Blood Pressure 1: 96/58 Code : 8480-6 01/20/2011 Blood Pressure 1: 112/78 Cod e: 8480-6 01/12/2011 Blood Pressure 1: 110/48 Code: 8480-6 He art Rate 1: 84 bpm 01/04/2011 Blood Pressure 1: 126/80 Code: 8480-6 Heart Rate 1: 76 bpm Temperature: 36.9 (C) / 98.4 (F) Weight: 168 lbs Code: 19492-1 02/14/2010 Blood Pressure 1: 134/82 Code: 8480-6 Heart Rate 1: 88 bpm Temperature: 36.6 (C) / 97.9 (F) 02/07/2010 Blood Pressure 1: 130/80 Code: 8480-6 BMI: 23.4 Code: 85414-4 Heart Rate 1: 84 bpm Height: 5'10" Code: 8302-2 Temperature: 36.4 (C) / 97.6 (F) Weight: 163 lbs Code: 23667-8 Functional Status No Functional Status data Reason [...] Encounter Performer Location Location Address Codes Date ([id number]) OFFICE/OUTPATIENT VISIT EST Diagnosis: Atrial fibrillation and flutter[ICD10: I48.91] Diagnosis: Essential (primary) hypertension[ICD10: I10] Diagnosis: Stress[ICD10: F43.9] Diagnosis: Cough[ICD10: R05.9] Yvette STUART CristiGarrett JOANN [address] [address] CPT-4: 83796 08/02/20 ([id number]) OFFICE/OUTPATIENT VISIT EST Diagnosis: Atrial fibrillation and flutter[ICD10: I48.91] Yvette Rodriguez [address] [address] CPT- 4: 72014 06/26/2022 ([id number]) OFFICE/OUTPATIENT VISIT EST Diagnosis: Chronic atrial fibrillation[ICD10: I48.20] Diagnosis: Essential hypertension[ICD10: I10] Diagnosis: Skin cancer of arm[ICD10: C44.601] Diagnosis: Mild chronic obstructive pulmonary disease[ICD10: J44.9] Yvette STUART CristiGarrett JOANN [address] [address] CPT-4: 68561 05/22/2022 ([id number]) NURSE/OUTPATIENT VISIT EST Diagnosis: Atrial fibrillation and flutter[ICD10: I48.91] Diagnosis: Hypothyroidism[ICD10: E03.9] Diagnosis: Mixed hyperlipidemia[ICD10: E78.2] Diagnosis: Anemia, unspecified[ICD10: D64.9] Diagnosis: Essential (primary) hypertension[ICD10: I10] Diagnosis: Hyperglycemia, unspecified[ICD10: R73.9] Yvette DAVID DO [address] [address] CPT- 4: 61008 02/28/2022 ([id number]) OFFICE/OUTPATIENT VISIT EST Diagnosis: Atypical nevus of right forearm[ICD10: D22.61] Diagnosis: Unspecified atrial flutter[ICD10: I48.92] Diagnosis: Atrial fibrillation and flutter[ICD10: I48.91] Yvette DAVID DO [address] [address] CPT- 4: 39054 02/27/2022 ([id number]) OFFICE/OUTPATIENT VISIT EST Diagnosis: Anxiety[ICD10: F41.9] Yvette DAVID DO [address] [address] CPT-4: 24282 11/23/2021 ([id number]) OFFICE/OUTPATIENT VISIT EST Diagnosis: Anxiety[ICD10: F41.9] Diagnosis: Stress reaction[ICD10: F43.0] Yvette DAVID DO [address] [address] CPT-4: 94748 10/12/2021 ([id number]) OFFICE/OUTPATIENT VISIT EST Diagnosis: Contact with and (suspected) exposure to covid-19[ICD10: Z20.822] Diagnosis: Nasopharyngitis[ICD10: J00] Diagnosis: Acute foreign body of left ear canal, initial encounter[ICD10: T16.2XXA] Diagnosis: Acute foreign body of right ear canal[ICD10: T16.1XXA] Martina Jessica YVETTE DAVID DO [address] [address] CPT-4: 16266 08/09/2021 ([id number]) OFFICE/OUTPATIENT VISIT EST Diagnosis: Essential (primary) hypertension[ICD10: I10] Diagnosis: Hypothyroidism[ICD10: E03.9] Diagnosis: Paroxysmal atrial fibrillation[ICD10: I48.0] Diagnosis: Hyperglycemia, unspecified[ICD10: R73.9] Yvette DAVID DO [facility] [address] [place] [address] CPT- 4: 18462 07/28/2021 ([id number]) NURSE/OUTPATIENT VISIT EST Diagnosis: Mixed hyperlipidemia[ICD10: E78.2] Diagnosis: Anemia, unspecified[ICD10: D64.9] Diagnosis: Essential (primary) hypertension[ICD10: I10] Diagnosis: Hypothyroidism, unspecified[ICD10: E03.9] Diagnosis: Hyperglycemia, unspecified[ICD10: R73.9] Yvette DAVID DO [address] [address] CPT- 4: 52602 07/20/2021 ([id number]) OFFICE/OUTPATIENT VISIT EST Diagnosis: Grieving[ICD10: F43.21] Diagnosis: Inflamed seborrheic keratosis[ICD10: L82.0] Yvette DAVID DO [address] [address] CPT- 4: 12229 05/12/2021 ([id number]) OFFICE/OUTPATIENT VISIT EST Diagnosis: Rhus dermatitis[ICD10: L25.5] Yvette DAVID DO [address] [address] CPT-4: 75608 03/08/2021 ([id number]) OFFICE/OUTPATIENT VISIT EST Diagnosis: Essential hypertension[ICD10: I10] Diagnosis: Chronic atrial fibrillation[ICD10: I48.20] Diagnosis: Mixed hyperlipidemia[ICD10: E78.2] Diagnosis: Hyperglycemia, unspecified[ICD10: R73.9] Diagnosis: Depression[ICD10: F32.9] Yvette COTE [address] [address] CPT-4: 15781 02/03/2021 ([id number]) NURSE/OUTPATIENT VISIT EST Diagnosis: Hyperglycemia, unspecified[ICD10: R73.9] Diagnosis: Mixed hyperlipidemia[ICD10: E78.2] Diagnosis: Essential (primary) hypertension[ICD10: I10] Diagnosis: Hypothyroidism, unspecified[ICD10: E03.9] Yvette DAVID DO [address] [address] CPT- 4: 74769 01/31/2021 ([id number]) OFFICE/OUTPATIENT VISIT EST Diagnosis: Vertigo[ICD10: R42] Diagnosis: Chronic atrial fibrillation[ICD10: I48.20] Diagnosis: Cerumen impaction[ICD10: H61.20] Diagnosis: Depression[ICD10: F32.9] Yvette COTE [address] [address] CPT-4: 75765 01/04/2021 ([id number]) NURSE/OUTPATIENT VISIT EST Diagnosis: Essential hypertension[ICD10: I10] Yvette DAVID [address] [address] CPT-4: 93529 10/05/2020 ([id number]) OFFICE/OUTPATIENT VISIT EST Diagnosis: Chronic atrial fibrillation[ICD10: I48.20] Diagnosis: Dizziness[ICD10: R42] Yvette DAVID DO [address] [address] CPT-4: 05563 09/20/2020 ([id number]) NURSE/OUTPATIENT VISIT EST Diagnosis: Dysplastic nevus of right lower extremity[ICD10: D23.71] Yvette DAVID DO [address] [address] CPT-4: 74838 05/28/2020 ([id number]) NURSE/OUTPATIENT VISIT EST Diagnosis: Essential (primary) hypertension[ICD10: I10] Diagnosis: Type 2 diabetes mellitus with hyperglycemia[ICD10: E11.65] Diagnosis: Anemia, unspecified[ICD10: D64.9] Diagnosis: Hypothyroidism, unspecified[ICD10: E03.9] Yvette DAVID DO [address] [address] CPT- 4: 52629 05/05/2020 ([id number]) OFFICE/OUTPATIENT VISIT EST Diagnosis: 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] Diagnosis: Paroxysmal atrial fibrillation[ICD10: I48.0] Yvette STUART CristiGarrett KUNNDER DO [address] [address] CPT- 4: 14105 02/11/2020 ([id number]) OFFICE/OUTPATIENT VISIT EST Diagnosis: Dermatitis[ICD10: L30.9] Diagnosis: 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] Diagnosis: Chronic pruritus[ICD10: L29.9] Yvette STUART Cristi Garrett KUNNDMAYE [address] [address] CPT-4: 24553 01/28/2020 ([id number]) OFFICE/OUTPATIENT VISIT EST Diagnosis: Diarrhea, unspecified[ICD10: R19.7] Diagnosis: Dizziness[ICD10: R42] Diagnosis: Generalized pruritus[ICD10: L29.9] Yvette COREA SGarrett KUNNDER DO [address] [address] CPT-4: 64239 01/05/2020 ([id number]) NURSE/OUTPATIENT VISIT EST Diagnosis: Renal insufficiency[ICD10: N28.9] Yvette Shahid SGarrett KUNNDER [address] [address] CPT-4: 38492 12/05/2019 ([id number]) NURSE/OUTPATIENT VISIT EST Diagnosis: Renal insufficiency[ICD10: N28.9] Diagnosis: Dehydration[ICD10: E86.0] Yvette STUART CristiGarrett KUN NDER DO [address] [address] CPT-4: 99342 11/05/2019 ([id number]) OFFICE/OUTPATIENT VISIT EST Diagnosis: Chronic atrial fibrillation[ICD10: I48.20] Diagnosis: Renal insufficiency[ICD10: N28.9] Diagnosis: Dizziness and giddiness[ICD10: R42] Yvette COLEMAN SGarrett BUSTOSNDER DO [facility] [address] [place] [address] CPT-4: 30229 10/29/2019 ([id number]) NURSE/OUTPATIENT VISIT EST Diagnosis: Hematuria, unspecified[ICD10: R31.9] Yvette MENA Michael BUSTOSNDER DO [address] [address] CPT-4: 43217 10/23/2019 ([id number]) NURSE/OUTPATIENT VISIT EST Diagnosis: Encounter for general adult medical examination without abnormal findings[ICD10: Z00.00] Diagnosis: Essential (primary) hypertension[ICD10: I10] Diagnosis: Hypothyroidism, unspecified[ICD10: E03.9] Diagnosis: Mixed hyperlipidemia[ICD10: E78.2] Yvette COREA Michael BUSTOSNDER DO [address] [address] CPT-4: 24483 10/21/2019 ([id number]) OFFICE/OUTPATIENT VISIT EST Diagnosis: Cerumen impaction[ICD10: H61.20] Diagnosis: Dizziness[ICD10: R42] Diagnosis: Gastritis[ICD10: K29.70] Diagnosis: Dehydration[ICD10: E86.0] Natalee MERCADOLINE Michael BUSTOS NDER DO [address] [address] CPT-4: 77534 10/20/2019 ([id number]) OFFICE/OUTPATIENT VISIT EST Diagnosis: Paroxysmal atrial fibrillation[ICD10: I48.0] Diagnosis: Essential hypertension[ICD10: I10] Yvette COREA SGarrett BUSTOSNDER DO [address] [address] CPT-4: 19941 07/07/2019 ([id number]) OFFICE/OUTPATIENT VISIT EST Diagnosis: Essential (primary) hypertension[ICD10: I10] Yvette STUART Michael BUSTOSNDER DO [address] [address] CPT- 4: 67121 05/01/2019 ([id number]) OFFICE/OUTPATIENT VISIT EST Diagnosis: Essential (primary) hypertension[ICD10: I10] Diagnosis: Localized edema[ICD10: R60.0] Yvette DAVID [address] [address] CPT-4: 07306 04/15/2019 ([id number]) NURSE/OUTPATIENT VISIT EST Diagnosis: Essential (primary) hypertension[ICD10: I10] Diagnosis: Hypothyroidism, unspecified[ICD10: E03.9] Diagnosis: Mixed hyperlipidemia[ICD10: E78.2] Yvette DAVID [address] [address] CPT-4: 35997 04/04/2019 ([id number]) NURSE/OUTPATIENT VISIT EST Diagnosis: Essential (primary) hypertension[ICD10: I10] Diagnosis: Hyperglycemia, unspecified[ICD10: R73.9] Diagnosis: Hypothyroidism, unspecified[ICD10: E03.9] Diagnosis: Mixed hyperlipidemia[ICD10: E78.2] Yvette DAVID [address] [address] CPT-4: 68649 10/07/2018 ([id number]) OFFICE/OUTPATIENT VISIT EST Diagnosis: Essential (primary) hypertension[ICD10: I10] Diagnosis: Presence of right artificial knee joint[ICD10: Z96.651] Diagnosis: Unspecified hearing loss, left ear[ICD10: H91.92] Yvette DAVID [address] [address] CPT- 4: 67029 08/08/2018 OFFICE/OUTPATIENT VISIT EST Diagnosis: Impacted cerumen, bilateral[ICD10: H61.23] Diagnosis: Vertigo of central origin, bilateral[ICD10: H81.43] Diagnosis: Essential (primary) hypertension[ICD10: I10] Diagnosis: Paroxysmal atrial fibrillation[ICD10: I48.0] Diagnosis: Dizziness and giddiness[ICD10: R42] Diagnosis: Sudden idiopathic hearing loss, left ear[ICD10: H91.22] Yvette Orender Y[address] S. [address] [address] CPT-4: 96809 06/25/2018 ([id number]) OFFICE/OUTPATIENT VISIT EST Diagnosis: Essential (primary) hypertension[ICD10: I10] Diagnosis: Vertigo of central origin, bilateral[ICD10: H81.43] Yvette DAVID [address] [address] CPT-4: 70296 05/10/2018 ([id number]) OFFICE/OUTPATIENT VISIT EST Diagnosis: Allergic rhinitis due to pollen[ICD10: J30.1] Diagnosis: Dizziness and giddiness[ICD10: R42] Diagnosis: Vertigo of central origin, bilateral[ICD10: H81.43] Diagnosis: Essential (primary) hypertension[ICD10: I10] Yvette DAVID [address] [address] CPT- 4: 23058 05/03/2018 OFFICE/OUTPATIENT VISIT EST Diagnosis: Hypothyroidism, unspecified[ICD10: E03.9] Diagnosis: Mixed hyperlipidemia[ICD10: E78.2] Diagnosis: Essential (primary) hypertension[ICD10: I10] Diagnosis: Paroxysmal atrial fibrillation[ICD10: I48.0] Diagnosis: Obstructive sleep apnea (adult) (pediatric)[ICD10: G47.33] Diagnosis: Unilateral primary osteoarthritis, right knee[ICD10: M17.11] Yvette DAVID [address] [address] CPT-4: 12887 04/22/2018 ([id number]) OFFICE/OUTPATIENT VISIT EST Diagnosis: Zoster without complications[ICD10: B02.9] Natalee DAVID [address] [address] CPT- 4: 01095 03/05/2018 ([id number]) NURSE/OUTPATIENT VISIT EST Diagnosis: Hypothyroidism, unspecified[ICD10: E03.9] Diagnosis: Mixed hyperlipidemia[ICD10: E78.2] Diagnosis: Essential (primary) hypertension[ICD10: I10] Diagnosis: Paroxysmal atrial fibrillation[ICD10: I48.0] Yvette DAVID DO [facility] [address] [place] [address] CPT- 4: 74552 02/13/2018 ([id number]) OFFICE/OUTPATIENT VISIT EST Diagnosis: Obstructive sleep apnea (adult) (pediatric)[ICD10: G47.33] Diagnosis: Essential (primary) hypertension[ICD10: I10] Diagnosis: Paroxysmal atrial fibrillation[ICD10: I48.0] Yvette BUSTOSNDMAYE BORJA [facility] [address] [place] [address] CPT- 4: 99908 10/18/2017 ([id number]) OFFICE/OUTPATIENT VISIT EST Diagnosis: Hypothyroidism, unspecified[ICD10: E03.9] Diagnosis: Other vitamin B12 deficiency anemias[ICD10: D51.8] Diagnosis: Essential (primary) hypertension[ICD10: I10] Diagnosis: Mixed hyperlipidemia[ICD10: E78.2] Yvette COREA Michael DAVID Plantiga [address] [address] CPT-4: 18441 10/15/2017 OFFICE/OUTPATIENT VISIT EST Diagnosis: Impacted cerumen, bilateral[ICD10: H61.23] Diagnosis: Acute sinusitis, unspecified[ICD10: J01.90] Natalee DAVID [address] [address] CPT- 4: 88112 07/24/2017 ([id number]) OFFICE/OUTPATIENT VISIT EST Diagnosis: Obstructive sleep apnea (adult) (pediatric)[ICD10: G47.33] Diagnosis: Tachycardia, unspecified[ICD10: R00.0] Yvette QUINONES Michael BUSTOSNDMAYE [address] [address] CPT-4: 78499 06/14/2017 ([id number]) OFFICE/OUTPATIENT VISIT EST Diagnosis: Zoster without complications[ICD10: B02.9] Demi Rocha YVETTE DAVID [facility] [address] [address] CPT- 4: 65386 06/01/2017 ([id number]) OFFICE/OUTPATIENT VISIT EST Diagnosis: Essential (primary) hypertension[ICD10: I10] Diagnosis: Tachycardia, unspecified[ICD10: R00.0] Diagnosis: Other vitamin B12 deficiency anemias[ICD10: D51.8] Yvette DILLONQUELINE CristiGarrett JOANN [address] [address] CPT- 4: 24095 03/30/2017 ([id number]) OFFICE/OUTPATIENT VISIT EST Diagnosis: Essential (primary) hypertension[ICD10: I10] Diagnosis: Other fatigue[ICD10: R53.83] Diagnosis: Other chest pain[ICD10: R07.89] Diagnosis: Snoring[ICD10: R06.83] Yvette Kunnate Vega [address] [address] CPT-4: 70593 01/17/2017 ([id number]) OFFICE/OUTPATIENT VISIT EST Diagnosis: Encounter for general adult medical examination without abnormal findings[ICD10: Z00.00] Diagnosis: Hypothyroidism, unspecified[ICD10: E03.9] Diagnosis: Essential (primary) hypertension[ICD10: I10] Diagnosis: Mixed hyperlipidemia[ICD10: E78.2] Diagnosis: Other mcfp (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[ICD10: Z79.899] Diagnosis: Hyperglycemia, unspecified[ICD10: R73.9] Yvette Kunvetomaye YVETTE CristiGarrett JOANN [address] [address] CPT- 4: 82482 12/11/2016 ([id number]) OFFICE/OUTPATIENT VISIT EST Diagnosis: URI, ACUTE[ICD10: J06.9] Diagnosis: Cough[ICD10: R05] Yvette Kunnate Rodriguez KUNNATE [address] [address] CPT-4: 37353 11/02/19 ([id number]) OFFICE/OUTPATIENT VISIT EST Diagnosis: Acute upper respiratory infection, unspecified[ICD10: J06.9] Elidia TAYLORER DO [address] [address] CPT-4: 00232 10/24/2016 ([id number]) OFFICE/OUTPATIENT VISIT EST Diagnosis: Nausea[ICD10: R11.0] Diagnosis: Diarrhea, unspecified[ICD10: R19.7] Diagnosis: Dizziness and giddiness[ICD10: R42] Elidia WAYNE JARED Michael BUSTOSNDER DO [address] [address] CPT-4: 64386 02/07/2016 ([id number]) OFFICE/OUTPATIENT VISIT EST Diagnosis: HYPOTHYROIDISM[ICD9: 244.9] Diagnosis: HYPERLIPIDEMIA NEC/NOS[ICD9: 272.4] Diagnosis: ANEMIA NOS[ICD9: 285.9] Diagnosis: HYPERTENSION[ICD9: 401.9] Diagnosis: Neuropathy[ICD9: 355.9] Yvette Kunvetomaye YVETTE CristiGarrett KUNND ER DO [address] [address] CPT-4: 70957 05/27/2015 ([id number]) OFFICE/OUTPATIENT VISIT EST Diagnosis: Neuropathy[ICD9: 355.9] Diagnosis: Foot pain[ICD9: 729.5] Diagnosis: HYPOTHYROIDISM[ICD9: 244.9] Diagnosis: PNEUMOCOCCAL VACCINE[ICD10: Z23] Yvette Kunvetomaye YVETTE CristiGarrett KUNNDER DO [address] [address] CPT-4: 76726 05/26/2015 ([id number]) OFFICE/OUTPATIENT VISIT EST Diagnosis: Hematochezia[ICD9: 578.1] Yvette Kunnate STUART CristiGarrett KUN NDER DO [address] [address] CPT-4: 92167 02/19/2015 ([id number]) OFFICE/OUTPATIENT VISIT EST Diagnosis: Hematochezia[ICD9: 578.1] Yvette STUART CristiGarrett KUN NDER DO [address] [address] CPT-4: 69505 01/20/2015 ([id number]) OFFICE/OUTPATIENT VISIT EST Diagnosis: Hematochezia[ICD9: 578.1] Yvette BUSTOS NDER DO [address] [address] CPT-4: 60140 12/15/2014 ([id number]) OFFICE/OUTPATIENT VISIT EST Diagnosis: TINEA PEDIS[ICD9: 110.4] Diagnosis: Ceruminosis[ICD9: 380.4] Earline SmileyWhitneymargarita MERCADOLINE CristiGarrett KAMRONLilly CHAIREZ DO [address] [address] CPT-4: 49251 11/30/2014 ([id number]) OFFICE/OUTPATIENT VISIT EST Diagnosis: HYPERLIPIDEMIA NEC/NOS[ICD9: 272.4] Yvette WAYNE JARED CristiGarrett BRANDONMAYE DO [address] [address] CPT-4: 61893 11/26/2014 ([id number]) OFFICE/OUTPATIENT VISIT EST Diagnosis: HYPOTHYROIDISM[ICD9: 244.9] Diagnosis: HYPERLIPIDEMIA NEC/NOS[ICD9: 272.4] Diagnosis: ANEMIA NOS[ICD9: 285.9] Diagnosis: HYPERTENSION[ICD9: 401.9] Yvette MERCADOLINE CristiGarrett KUN AKHTARR DO [address] [address] CPT-4: 40631 08/14/2014 ([id number]) OFFICE/OUTPATIENT VISIT EST Diagnosis: GERD[ICD9: 530.81] Diagnosis: COUGH[ICD10: R05] Yvette MERCADOLINE CristiGarrett BRANDONER DO [address] [address] CPT-4: 05327 07/23/20 14 OFFICE/OUTPATIENT VISIT EST Diagnosis: Heel pain[ICD9: 729.5] Earline SmileyWhitneymargarita MERCADOLINE CristiGarrett KUNGIOVANA R DO [address] [address] CPT-4: 62731 03/09/2014 ([id number]) OFFICE/OUTPATIENT VISIT EST Diagnosis: HYPOTHYROIDISM[ICD9: 244.9] Diagnosis: HYPERLIPIDEMIA NEC/NOS[ICD9: 272.4] Diagnosis: Right medial knee pain[ICD9: 719.46] Yvette MENA CristiGarrett JOANN DO [address] [address] CPT-4: 59582 02/05/2014 ([id number]) OFFICE/OUTPATIENT VISIT EST Diagnosis: HYPOTHYROIDISM[ICD9: 244.9] Diagnosis: HYPERLIPIDEMIA NEC/NOS[ICD9: 272.4] Diagnosis: HYPERTENSION[ICD9: 401.9] Diagnosis: ANEMIA NOS[ICD9: 285.9] Diagnosis: MALAISE AND FATIGUE[ICD9: 780.79] Yvette KONG Zehra DAVID DO [address] [address] CPT-4: 38173 02/04/2014 OFFICE/OUTPATIENT VISIT EST Diagnosis: Right medial knee pain[ICD9: 719.46] Diagnosis: Degeneration, intervertebral disc, lumbar[ICD9: 722.52] Diagnosis: Low back pain[ICD9: 724.2] Earline STUART CristiGarrett LUISITO STEFAN DO [address] [address] CPT-4: 83154 05/12/2013 ([id number]) OFFICE/OUTPATIENT VISIT EST Diagnosis: Lumbar degenerative disc disease[ICD9: 722.52] Diagnosis: Bulging lumbar disc[ICD9: 722.10] Yvette KONG Zehra ColinGarrett JOANN DO [address] [address] CPT-4: 05875 04/07/2013 ([id number]) OFFICE/OUTPATIENT VISIT EST Diagnosis: PAIN, LOWER BACK[ICD9: 724.2] Diagnosis: SPASM OF MUSCLE[ICD9: 728.85] Diagnosis: Lumbar degenerative disc disease[ICD9: 722.52] Yvette STUART CristiGarrett JOANN DO [address] [address] CPT- 4: 83981 03/31/2013 ([id number]) OFFICE/OUTPATIENT VISIT EST Diagnosis: Greater trochanteric bursitis[ICD9: 726.5] Diagnosis: DYSPEPSIA[ICD9: 536.8] Yvette HYLTON R [address] [address] CPT-4: 08150 10/09/2012 OFFICE/OUTPATIENT VISIT EST Diagnosis: CYSTOCELE NOS[ICD9: 618.01] Diagnosis: GERD[ICD9: 530.81] Diagnosis: VAGINITIS[ICD9: 623.5] Yvette Vega [address] [address] CPT-4: 35609 03/28/2012 ([id number]) OFFICE/OUTPATIENT VISIT EST Diagnosis: HYPOTHYROIDISM[ICD9: 244.9] Diagnosis: HYPERLIPIDEMIA NEC/NOS[ICD9: 272.4] Diagnosis: HYPERTENSION[ICD9: 401.9] Diagnosis: ANEMIA NOS[ICD9: 285.9] Yvette MERCADOLINE Michael VILLAVICENCIO [address] [address] CPT-4: 65387 03/18/2012 OFFICE/OUTPATIENT VISIT EST Diagnosis: CERUMEN IMPACTION[ICD9: 380.4] Diagnosis: OTALGIA[ICD9: 388.70] Reyna Eldon YVETTE DAVID [address] [address] CPT-4: 82681 2012 OFFICE/OUTPATIENT VISIT EST Diagnosis: COUGH[ICD9: 786.2] Diagnosis: Cystocele[ICD9: 618.01] Diagnosis: VAGINITIS[ICD9: 623.5] Diagnosis: ROUTINE GYNE EXAM[ICD9: V72.31] Yvette MERCADOLINE CristiGarrett JOANN [address] [address] CPT-4: 58868 09/27/2011 SPECIMEN HANDLING Diagnosis: [ICD9: ] Diagnosis: [ICD9: ] Diagnosis: [ICD9: ] Diagnosis: [ICD9: ] Yvette Taylormaye YVETTE CristiGarrett JOANN [address] [address] CPT-4: 89077 09/27/2011 OFFICE/OUTPATIENT VISIT EST Diagnosis: PHARYNGITIS, ACUTE[ICD9: 462] Diagnosis: URI, ACUTE[ICD9: 465.9] Y[facility] [address] [place] [phone] CPT-4: 77425 09/13/2011 OFFICE/OUTPATIENT VISIT EST Diagnosis: PHARYNGITIS, ACUTE[ICD9: 462] Diagnosis: COUGH[ICD9: 786.2] Yvette [facility] [address] [place] [phone] CPT-4: 29425 08/07/20 11 ([id number]) OFFICE/OUTPATIENT VISIT EST Yvette Rodriguez [facility] [address] [place] [phone] CPT-4: 62327 01/04/2011 ([id number]) OFFICE/OUTPATIENT VISIT, EST Yvette Rodriguez [facility] [address] [place] [phone] CPT-4: 16174 02/14/2010 ([id number]) OFFICE/OUTPATIENT VISIT, EST Yvette Rodriguez ORENDER DO [facility] [address] [place] [phone] CPT-4: 81119 02/07/2010 Plan of Care Planned Activity Notes [...] in AM and add singulair at night [id number] ICD-9 : 786.2 ICD-10 : R05.9 08/02/2022 Patient Education: Singulair- [employer] Coupon [phone] [email or web address] Completed 08/02/2022 Visit Diagnosis Plan: Atrial fibrillation and flutter Discussion: Increase metoprolol to 50mg po BID Increase amiodarone to 200mg po BID Fwup 1month Defers flu shot ICD-9 : 427.31 ICD-10 : I48.91 06/26/2022 Appointment: Yvette David WPtel: [phone] [phone] FOLLOW UP 06/26/2022 Patient Education: metoprolol succinate- [employer] Co upon [id number] https://www.ApplyInc.com/Airpush/resources/getResource/61/[email or web address] Completed 06/26/2022 Referral: Lino Davila [address] [place] [address] [id number] [id number] [place] Referral Completed 05/23/2022 Visit Diagnosis Plan: [...] J44.9 05/22/2022 Appointment: Yvette David WPtel: [address] [place], [place] [phone] US FOLLOW UP 05/22/2022 Referral: Anuj Eng WPtel: #1 [facility] Lior Holm [id number] US Referral Appointment Confirmed 03/08/2022 Appointment: Yvette David WPtel: [address] [place], [place] [phone] US LAB 02/28/2022 Visit Diagnosis Plan: Unspecified [...] : I48.91 02/27/2022 Appointment: Yvette David WPtel: [address] [place], [place] [phone] ACUTE ILLNESS 02/27/2022 Care Plan: Referral Order SNOMED-CT : 30 [id number] Pending 02/27/2022 Care Plan: Referral Order SNOMED-CT : 30 2579603 Pending 02/27/2022 Appointment: Yvette David WPtel: [address] [place], [place] [phone] US CANCELED 12/06/2021 Visit Diagnosis Plan: Anxiety Discussion: Improving wi th effexor--wants to keep dose the same ICD-9 : 300.00 ICD-10 : F41.9 11/23/2021 Appointment: Yvette David WPtel: [address] [place], [place] [phone] US FOLLOW UP 11/23/2021 Visit Diagnosis Plan: Anxiety Discussion: Restart effe xor XR at 37.5mg daily Stress Reducers Fwup 6 weeks No tremors noted today ICD-9 : 300.00 ICD-10 : F41.9 10/12/2021 Appointment: Yvette David WPtel: [phone] [phone] ACUTE ILLNESS 10/12/2021 Visit Plan: Supportive [...] : T16.2XXA 08/09/2021 Appointment: [facility]el[facility] [phone] [facility] AC[facility] ILLNESS 08/09/2021 Patient Education: Patient Medication [...] : R73.9 07/28/2021 Appointment: Yvette David WPtel: [address] [place], [place] [address] FOLLOW UP 07/28/2021 Appointment: Yvette David WPtel: [address] [place] [address] US LAB 07/20/2021 Visit Diagnosis Plan: Grieving Discussion: Restart Eff exor XR 37.5mg po q AM ICD-9 : 309.0 ICD-10 : F43.21 05/12/2021 Visit Diagnosis Plan: Inflamed seborrheic keratosis Di scussion: Cryotherapy as above ICD-9 : 702.11 ICD-10 : L82.0 05/12/2021 Appointment: Yvette David WPtel: [address] [place], [place] [phone] US FOLLOW UP 05/12/2021 Appointment: Yvette David WPtel: [address] [place] [address] US assisted patient with opening her eye drops for cataract liane an (km) CANCELED 03/22/2021 Visit Diagnosis Plan: Rhus dermatitis Discussion: Marielena log 40mg IM x1 Can continue TAC ICD-9 : 692.6 ICD-10 : L25.5 03/08/2021 Appointment: Yvette David WPtel: [address] [place] [address] US FOLLOW UP 03/08/2021 Visit Diagnosis Plan: [...] ICD-10 : I48.20 02/03/2021 Appointment: Yvette Davidtel: [address] [place], [place] [phone] FOLLOW UP 02/03/2021 Appointment: Yvette David WPtel: [address] [place], [place] [phone] US LAB 01/31/2021 Visit Diagnosis Plan: Chronic [...] H61.20 01/04/2021 Appointment: Yvette David WPtel: [phone] [phone] ACUTE ILLNESS 01/04/2021 Appointment: Yvette David WPtel:[phone] [facility] [facility] [facility] BP CHECK 10/05/2020 Visit Diagnosis Plan: Chronic atrial fibrillation Disc ussion: Due to symptomatic bradycardia will decrease metoprolol ER to 25mg po BID Bring by BP and pulse readings in 2 weeks ICD-9 : 427.31 ICD-10 : I48.20 09/20/2020 Appointment: Yvette David WPtel: [address] [place], [place] [phone] ACUTE ILLNESS 09/20/2020 Appointment: Yvette David WPtel: [facility]9 [phone] NURSE SERVICES 05/28/2020 Visit Diagnosis Plan: Dysplastic nevus of right lower extremity Discussion: Removal as above and sent to pathology Return in 10 days for suture removal ICD-9 : 216.7 ICD-10 : D23.71 05/19/2020 Appointment: Yvette David WPtel: [facility] [facility] UP 05/19/2020 Visit Diagnosis Plan: [...] 05/11/2020 Visit Diagnosis Plan: Encounter for [facility] adult medical examination without abnormal [...] I48.20 05/11/2020 Appointment: Yvette David WPtel: [phone] [phone] Annual Well Visit 05/11/2020 Appointment: Yvette David WPtel: [phone] [phone] US LAB 05/05/2020 Visit Diagnosis Plan: [...] I48.0 02/11/2020 Appointment: Yvette David WPtel: [phone] [phone] US FOLLOW UP 02/11/2020 Visit Diagnosis [...] : L29.8 01/28/2020 Appointment: Yvette David WPtel: [address] [place], [place] [address] ACUTE ILLNESS 01/28/2020 Patient Education: hydroxyzine HCl- [employer] Coupon [id number] https://www.ApplyInc.com/samplemd/resources/getResource/61/[email or web address]-[email or web address] Completed 01/28/2020 Visit Diagnosis Plan: Diarrhea, unspecified [...] : R42 01/05/2020 Appointment: Yvette David WPtel: [address] [place], [place] [address] ACUTE ILLNESS 01/05/2020 Appointment: Yvette David WPtel: [address] [place], [place] [address] US LAB 12/05/2019 Appointment: Yvette David WPtel: [address] [place], [place] [address] US LAB 11/05/2019 Visit Diagnosis Plan: Dizziness [...] N28.9 10/29/2019 Appointment: Yvette David WPtel: [phone] [phone] US FOLLOW UP 10/29/2019 Appointment: Yvette David WPtel: [phone] [place] [phone] US UA 10/23/2019 Appointment: Yvette David WPtel: [address] [phone] US LAB 10/21/2019 Visit Diagnosis Plan: [...] ICD-10 : H61.20 10/20/2019 Appointment: Natalee Gray [address] [place], [place] [phone] ACUTE ILLNESS 10/20/2019 Patient Education: meclizine- [employer] Coupon [id number] https://www.Airpush.com/samplemd/resources/getResource/61/[email or web address]-97zu-wd Completed 10/20/2019 Appointment: Yvette David WPtel: [phone] [phone] US Canceled, Said patient was feeling [...] : I48.0 07/07/2019 Appointment: Yvette David WPtel: [address] [place], [place] [phone] FOLLOW UP 07/07/2019 Visit Diagnosis Plan: Essential (primary) hypertension Discussion: Increase HCTZ to 25mg daily Call in 1 week with BP readings ICD-9 : 401.9 ICD-10 : I10 05/01/2019 Appointment: Yvette David WPtel: [address] [place], [place] [phone] FOLLOW UP 05/01/2019 Visit Diagnosis Plan: Essential (primary) hypertension Discussion: Change metoprolol to 50mg po q AM and 100mg po q PM Add HCTZ 12.5mg po q AM Monitor home BP and pulse Recheck 2 weeks Start Cardiac Rehab or Wellness ICD-9 : 401.1 ICD-10 : I10 04/15/2019 Appointment: Yvette David WPtel: [address] [place], [place] [phone] FOLLOW UP 04/15/2019 Patient Education: hydrochlorothiazide- [employer]imize[employer] Cou ministerio [id number] https://www.Airpush.com/samplenm/resources/getResource/61/[email or web address]-598q-el Completed 04/15/2019 Appointment: Yvette David WPtel: [facility]4 [phone] US LAB 04/04/2019 Care Plan: US EXAM CHEST US of left breast LOINC : 37301-4 Pending 03/17/2019 Visit Diagnosis Plan: Hypothyroidism, unspecified Disc ussion: Stable ICD-9 : 244.9 ICD-10 : E03.9 11/26/2018 Visit Diagnosis Plan: Paroxysmal atrial fibrillation D iscussion: Stable ICD-9 : 427.31 ICD-10 : I48.0 11/26/2018 Visit Diagnosis Plan: Encounter for [facility] adult medical examination without abnormal findings Discussion: Mediterranean diet Combinati on of cardio and weight bearing exercise Recommend Shingrix Lab and fwup in March ICD-9 : V70.9 ICD-10 : Z00.00 11/26/2018 Visit Diagnosis Plan: Essential (primary) hypertension Discussion: Stable ICD-9 : 401.1 ICD-10 : I10 11/26/2018 Appointment: Yvette David WPtel: [address] [place], [place] [phone] Annual Well Visit 11/26/2018 Appointment: Yvette David WPtel: [address] [place] [address] LAB 10/07/2018 Visit Diagnosis Plan: Presence of [...] : H91.92 08/08/2018 Appointment: Yvette David WPtel: [address] [place] [address] FOLLOW UP 08/08/2018 Appointment: Natalee Gray [address] [place] [address] CANCELED 07/18/2018 Visit Diagnosis Plan: Sudden idiopathic [...] : I10 06/25/2018 Appointment: Yvette Davidtel: [phone] [phone] [facility] Follow Up 06/25/2018 Patient Education: Patient Medication Summary Completed 06/25/2018 Appointment: Yvette Davidtel: [facility]3 [phone] BP CHECK 05/20/2018 Patient Education: Patient [...] ICD-10 : I10 05/10/2018 Appointment: Yvette Davidtel: [address] [place], [place] [phone] FOLLOW UP 05/10/2018 Patient Education: Patient Medication [...] : I10 05/03/2018 Appointment: Yvette Davidl: [phone] [place] [phone] ACUTE ILLNESS 05/03/2018 Patient Education: Patient Medication [...] E03.9 04/22/2018 Appointment: Yvette David WPtel: [address] [place] [phone] FOLLOW UP 04/22/2018 Patient Education: Patient Medication [...] ICD-10 : B02.9 03/05/2018 Appointment: Natalee Gray [address] [place] [address] ACUTE ILLNESS 03/05/2018 Patient Education: Patient Medication [...] ICD-10 : H61.23 02/19/2018 Appointment: Natalee Gray [address] [place] [address] ACUTE ILLNESS 02/19/2018 Patient Education: Patient Medication Summary Completed 02/19/2018 Appointment: Yvette David WPtel: [address] [place] [address] LAB 02/13/2018 Patient Education: Patient Medication Summary [...] : G47.33 10/18/2017 Appointment: Yvette David WPtel: [address] [place], [place] [phone] FOLLOW UP 10/18/2017 Patient Education: Patient Medication Summary Completed 10/18/2017 Appointment: Yvette David WPtel: [facility]4 [phone] LAB 10/15/2017 Patient Education: Patient Medication [...] ICD-10 : H61.23 07/24/2017 Appointment: Natalee Gray [address] [place] [address] ACUTE ILLNESS 07/24/2017 Patient Education: Patient Medication Summary Completed 07/24/2017 Referral: Jey Kaye WPtel: [address] [place] [id number] [place] Referral Initiated 07/05/2017 Patient Education: Patient [...] R00.0 06/14/2017 Appointment: Yvette David WPtel: [phone] [phone] FOLLOW UP 06/14/2017 Patient Education: Patient Medication Summary Completed 06/14/2017 Care Plan: Referral Order SNOMED-CT : 30 7361600 Pending 06/14/2017 Visit Plan: ERx for Valtrex, system won' t allow ERx for Prednisone so it is called 10mg 2 po bid x 3 days then 1 po bid x 3 days then 1 po daily x 3 days then 1/2 po daily x 3 days then d/c She declines gabapentin or pain meds Anticipatory guidance discussed. 06/01/2017 Appointment: Demi Rocha WPtel: [phone] [facility] ACUTE ILLNESS 06/01/2017 Patient Education: Patient Medication [...] D51.8 03/30/2017 Appointment: Yvette David [facility]Ptel: [address] [facility] 7/6 lm ~sl FOLLOW UP 03/30/2017 [...] : R53.83 01/17/2017 Appointment: Yvette David WPtel: [facility] 01/16 lm`sl FOLLOW UP 01/17/2017 Patient [...] G62.9 12/18/2016 Visit Diagnosis Plan: Encounter for [facility] adult medical examination without abnormal findings Discussion: Increase activity and contin ue healthy eating Continune using urinary incontinence pads at night for nocturia Reviewed labs ICD-9 : V70.9 ICD-10 : Z00.00 12/18/2016 Appointment: Yvette Davidtel: [facility]2 [phone] 11/13 confirmed ~sl Annual Well Visit 12/18/2016 Patient Education: Patient Medication Summary Completed 12/18/2016 Appointment: Yvette David WPtel: [address] [place], [place] [phone] US LAB 12/11/2016 Patient Education: Patient Medication [...] ICD-10 : R05 11/02/2016 Appointment: Yvette Davidtel: [phone] US FOLLOW UP 11/02/2016 Appointment: Yvette Davidtel: [address] [place], [place] [phone] US CANCELED 11/02/2016 Patient Education: Patient Medication Summary Completed 11/02/2016 Visit Diagnosis Plan: Acute upper respiratory infectio n, unspecified Discussion: Rx as above Discussed OTC meds and supportive care Notify if not improving so regimen can be changed before her upcoming trip in 2 weeks ICD-9 : 465.9 ICD-10 : J06.9 10/24/2016 Appointment: Elidia Calix [address] [place], [place] [phone] ACUTE ILLNESS 10/24/2016 Patient Education: Patient Medication Summary Completed 10/24/2016 Patient Education: Patient Medication Summary Completed 06/26/2016 Visit Plan: Office dip wnl/BP wnl Does s eem likely to be viral GI illness Supportive care with rxs as above Soft and bland diet Will need bloodwork if not improving 02/07/2016 Appointment: Elidia Calix [address] [place], [place] [phone] ACUTE ILLNESS 02/07/2016 Patient Education: Patient Medication Summary Completed 02/07/2016 Patient Education: Patient Medication Summary Completed 07/01/2015 Appointment: Yvette David WPtel: [address] [place], [place] [phone] US LAB 05/27/2015 Patient Education: Patient Medication Summary Completed 05/27/2015 Visit Plan: Trial of Gralise 300mg at be dtivt with 4 oz tonic water Sharron's solution soaks to feet Check TSH, Free T4, B12, CMP, HbA1C now Call in 2weeks 05/26/2015 Appointment: Yvette David WPtel: [address] [place], [place] [phone] 05/25/2015 confirmed w patient ACUTE ILLNESS 10/2014 Patient Education: Patient Medication Summary Completed 05/26/2015 Appointment: Yvette David WPtel: [facility]2 [phone] US Stool lab 02/19/2015 Patient Education: Patient Medication Summary Completed 02/19/2015 Appointment: Yvette David WPtel: [facility]2 [phone] US Stool lab 01/20/2015 Patient Education: Patient Medication Summary Completed 01/20/2015 Appointment: Yvette David WPtel: [phone] [phone] US LAB 12/15/2014 Patient Education: Patient Medication Summary Completed 12/15/2014 Appointment: Earilne Morris WPtel: [address] [place] [id number] ACUTE ILLNESS 11/30/2014 Patient Education: Patient Medication Summary Completed 11/30/2014 Appointment: Yvette David WPtel: [address] [place], [place] [phone] US LAB 11/26/2014 Patient Education: Patient Medication Summary Completed 11/26/2014 Appointment: Yvette David WPtel: [address] [place], [place] [phone] US LAB 08/14/2014 Patient Education: Patient Medication Summary Completed 08/14/2014 Visit Plan: Defers bone density Proceed with colonoscopy Change omeprazole to protonix Due for fasting lab next month 07/23/2014 Appointment: Yvette David WPtel: [address] [place], [place] [phone] ACUTE ILLNESS 07/23/2014 Patient Education: Patient Medication Summary Completed 07/23/2014 Patient Education: Patient Medication Summary Completed 06/05/2014 Appointment: Earline Morris WPtel: [address] [place], [place] [phone] FOLLOW UP 03/09/2014 Patient Education: Patient Medication Summary Completed 03/09/2014 Appointment: Yvette David WPtel: [address] [place], [place] [phone] ACUTE ILLNESS 02/05/2014 Patient Education: Patient Medication Summary Completed 02/05/2014 Appointment: Yvette David WPtel: [address] [place], [place] [phone] US LAB 02/04/2014 Patient Education: Patient Medication Summary Completed 02/04/2014 Appointment: Earline Morris WPtel: [address] [place], [place] [phone] ACUTE ILLNESS 05/12/2013 Patient Education: Patient Medication Summary Completed 05/12/2013 Visit Plan: MRI results discussed Discus sed epidural injections SI joint injection as above Continue Celebrex 200mg daily 04/07/2013 Appointment: Yvette David WPtel: [address] [place], [place] [phone] 04/04 left message FOLLOW UP 04/07/2013 Patient Education: Patient Medication Summary Completed 04/07/2013 Visit Plan: Restart PT and epidural--may need updated MRI of L/S spine Tylenol prn Celebrex 200mg daily 03/31/2013 Appointment: Yvette David WPtel: [address] [place], [place] [phone] ACUTE ILLNESS 03/31/2013 Patient Education: Patient Medication Summary Completed 03/31/2013 Visit Plan: Injection to hip as above Pt will take Vimovo 500/20mg po daily for next week Call in 1wk on both hip and stomach Discussed that likely has arthritis in hip as well 10/09/2012 Appointment: Yvette David WPtel: [address] [place], [place] [phone] 10/08 Left message ACUTE ILLNESS 10/09/2012 Patient Education: Patient Medication Summary Completed 10/09/2012 Visit Plan: See urology--Dr. Hutchinson for cystocele Start Premarin vaginal Cream 1/2 gm vaginally twice weekly then repeat PAP in 3mos Continue nexium for 4 more weeks then start Zantac daily--notify if cough returns 03/28/2012 Appointment: Yvette David WPtel: [address] [place], [place] [phone] PAP 03/28/2012 Patient Education: Patient Medication Summary Completed 03/28/2012 Appointment: Yvette David WPtel: [address] [place], [place] [phone] US LAB 03/18/2012 Patient Education: Patient Medication Summary Completed 03/18/2012 Appointment: Reyna Colón WPtel: [address] [place], [place] [phone] OFFICE SURGERY 2012 Patient Education: Patient Medication Summary Completed 2012 Visit Plan: Pap done Kegel exercises--de fers meds or surgery eval at this time Mammo due in January DC symbicort 09/27/2011 Appointment: Yvette David WPtel: [address] [place], [place] [phone] FOLLOW UP 09/27/2011 Patient Education: Patient Medication Summary Completed 09/27/2011 Visit Plan: Symbicort 160/4.5 2 p BID 09/13/2011 Appointment: Yvette David WPtel: [address] [place], [place] [phone] ACUTE ILLNESS 09/13/2011 Patient Education: Patient Medication Summary Completed 09/13/2011 Visit Plan: Cefdinir and medrol dose pac k. Discussed if no improvement by Sunday will obtain chest x-ray and CBC with mycoplasma. 08/07/2011 Appointment: Reyna Colón WPtel: [address] [place], [place] [phone] ACUTE ILLNESS 08/07/2011 Patient Education: Patient Medication Summary Completed 08/07/2011 Appointment: Yvette David WPtel: [address] [place], [place] [phone] 07/13/2011 Patient Education: Patient Medication Summary Completed 07/13/2011 Appointment: Yvette David WPtel: [address] [place], [place] [phone] LAB 03/13/2011 Patient Education: Patient Medication Summary Completed 03/13/2011 Appointment: Yvette David WPtel: [address] [place], [place] [phone] BP CHECK 02/06/2011 Patient Education: Patient Medication Summary Completed 02/06/2011 Appointment: Yvette David WPtel: [address] [place], [place] [phone] BP CHECK 01/20/2011 Patient Education: Patient Medication Summary Completed 01/20/2011 Appointment: Yvette David WPtel: [address] [place], [place] [phone] BP CHECK 01/12/2011 Patient Education: Patient Medication Summary Completed 01/12/2011 Visit Plan: Increase Synthroid to 75mcg po daily Increase fish oil to BID Start daily Toprol XL 12.5mg BP check in 1wk TSH and Free T4 in 2mos. 01/04/2011 Appointment: Yvette David WPtel: [address] [place], [place] [phone] FOLLOW UP 01/04/2011 Patient Education: Patient Medication Summary Completed 01/04/2011 Appointment: Yvette David WPtel: [address] [place], [place] [phone] LAB 12/16/2010 Patient Education: Patient Medication Summary Completed 12/16/2010 Visit Plan: Start PT May need MRI 02/14/2010 Appointment: Yvette David WPtel: [address] [place] [phone] OFFICE SURGERY 02/14/2010 Patient Education: Patient Medication [...] (steroid). 02/07/2010 Appointment: Reyna [facility]Ptel[phone] [facility] [facility] 02/07/2010 Patient Education: Patient Medication Summary Completed 02/07/2010 Appointment: Yvette [facility]Ptel: [phone] [phone] [facility] 12/22/2009 Patient Education: Patient Medication [...] data not found Advance Directives Filename Date [id number] 06/03/2012
--- OUTSIDE RECORDS SUMMARY | 2022-08-14 14:05 | XMS REPORT | CCD ---
Author Author Lucille David D.O. Organization [facility] Address [address] [place] [address] Phone Care Team Providers Care Cath Lab Radiology Technician Name Role Phone Yvette David D.O., PP Unavailable CCM Unavailable Summary Purpose Interface Exchange Insurance Providers Payer name Policy type / Coverage type Covered democrat ID Effective Begin Date Effective End Date WPS MEDICARE PART B [place] Medicare Part B [id number] Unknown Cigna Medicare Part B [id number] Unknown Family History Family History data not found Social History Social History Element Codes Description Effective Dates Tobacco history SNOMED CT: [id number] Has never smoked or chewed tobacco 05/26/2015 [...] ICD-10: G62.9 ICD-9: 355.9 12/18/2016 Active Other salvage determiner (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 ICD-10: Z79.899 ICD-9: V58.69 [...] Effexor XR 75 mg capsule,extended release RxNorm: 605028 Take 1 Capsule(s) Oral QPM replaces 37.5mg done 08/02/2022 10/30/2022 Active Singulair 10 mg tablet RxNorm: 138215 Take 1 Tablet(s) Oral QPM 05/202201/28/2023 Active metoprolol succinate ER 50 mg tablet,extended release 24 hr RxNorm: 287695 1 Tablet(s) Oral two times a day 06/26/2022 12/22/2022 Active amiodarone 200 mg tablet RxNorm: 633242 Take 1 Tablet(s) Oral t wo times a day 06/26/2022 06/26/2022 Inactive venlafaxine ER 37.5 mg capsule,extended release 24 hr RxNorm : 192640 Take 1 Capsule(s) Oral QAM 06/16/2022 08/01/2022 Inactive simvastatin 20 mg tablet RxNorm: 292149 Take 1 Tablet(s) Oral QD 11/21/2022 Active Xarelto 20 mg tablet RxNorm: 2101511 Take 1 Tablet(s) Oral QD 05/22 No Stop Date Active amiodarone 200 mg tablet RxNorm: 079332 Take 1 Tablet(s) Oral QD 06/25/2022 Inactive Euthyrox 88 mcg tablet RxNorm: 679260 TAKE 1 TABLET BY MOUTH ONCE DAILY - DUE FOR UPDATED LAB 05/21/2022 08/18/2022 Active Breztri Aerosphere 160 mcg-9mcg-4.8mcg/actuation HFA a erosol inhaler RxNorm: 6052217 2 Puff(s) Inhalation two times a day in the morning an d evening 05/01/2022 05/01/2022 Inactive Breztri Aerosphere 160 mcg-9mcg-4.8mcg/actuation HFA a erosol inhaler RxNorm: 0916016 2 Puff(s) Inhalation two times a day in the morning an d evening 05/01/2022 05/30/2022 Inactive diltiazem CD 120 mg capsule,extended release 24 hr RxNorm: 8 67314 TAKE 1 CAPSULE BY MOUTH TWICE DAILY REPLACES 180MG DOSE 04/17/2022 10/13/2022 Active pantoprazole 40 mg tablet,delayed release RxNorm: 159702 Take 1 Tablet(s) Oral QD 04/17/2022 10/13/2022 Active Xarelto 10 mg tablet RxNorm: 1076699 Take 1 Tablet(s) Oral QD 03/2105/21/2022 Inactive simvastatin 20 mg tablet RxNorm: 445092 Take 1 Tablet(s) Oral QD 02/23/2022 Inactive levothyroxine 88 mcg tablet RxNorm: 279507 Take 1 table t by mouth once daily due for updated lab 02/22/2022 02/22/2022 Inactive Cartia XT 120 mg capsule,extended release RxNorm: 006748 TAKE 1 CAPSULE BY MOUTH TWICE DAILY REPLACES 180MG DOSE 01/16/2022 01/16/2022 Inactive pantoprazole 40 mg tablet,delayed release RxNorm: 498084 Take 1 Oral QD 12/15/2021 12/15/2021 Inactive scopolamine 1 mg over 3 days transdermal patch RxNorm: 68107 2 Take 1 Application Transdermal Q3D as needed 11/23/2021 06/25/2022 Inactive Effexor XR 37.5 mg capsule,extended release RxNorm: 295401 1 Capsule(s) Oral QAM 11/23/2021 11/23/2021 Inactive levothyroxine 88 mcg tablet RxNorm: 840911 Take 1 tablet by alvaro th once daily 11/21/2021 11/21/2021 Inactive diltiazem CD 120 mg capsule,extended release 24 hr RxNorm: 8 04356 TAKE 1 CAPSULE BY MOUTH TWICE DAILY REPLACES 180MG DOSE 10/17/2021 10/17/2021 Inactiv e pantoprazole 40 mg tablet,delayed release RxNorm: 371255 Take 1 Tablet(s) Oral QD 10/17/2021 10/17/2021 Inactive Effexor XR 37.5 mg capsule,extended release RxNorm: 294506 1 Capsule(s) Oral QAM 10/12/2021 11/22/2021 Inactive Xarelto 10 mg tablet RxNorm: 4494457 Take 1 Tablet(s) Oral QD 09/1409/14/2021 Inactive metoprolol succinate ER 50 mg tablet,extended release 24 hr RxNorm: 222471 Take 1/2 (one-half) tablet by mouth twice daily 09/14/2021 03/12/2022 Inact beto simvastatin 20 mg tablet RxNorm: 335318 Take 1 Tablet(s) Oral QD 08/30/2021 Inactive levothyroxine 88 mcg tablet RxNorm: 656489 Take [address] [facility] once daily 08/28/2021 08/28/2021 Inactive fluticasone propionate 50 mcg/actuation nasal spray,suspensi on RxNorm: 3051472 Take 1 [place] Nasal QD in each nostrilas needed 08/09/2021 09/07/2021 I nactive pantoprazole 40 mg tablet,delayed release RxNorm: 467174 Take 1 Tablet(s) Oral QD 07/19/2021 07/19/2021 Inactive Xarelto 10 mg tablet RxNorm: 2927246 Take 1 Tablet(s) Oral QD 06/2906/29/2021 Inactive Euthyrox 88 mcg tablet RxNorm: 806875 Take 1 tablet by mouth on ce daily 05/24/2021 05/24/2021 Inactive Effexor XR 37.5 mg capsule,extended release RxNorm: 792606 1 Capsule(s) Oral QAM 05/12/2021 07/27/2021 Inactive Xarelto 10 mg tablet RxNorm: 7019425 Take 1 tablet by [facility] once daily Take 1 Tablet(s) Oral QD 04/19/2021 04/19/2021 Inactive metoprolol succinate ER 50 mg tablet,extended release 24 hr RxNorm: 604353 1/2 Tablet(s) Oral two times a day 04/12/2021 04/12/2021 Inactive d ecrease in dose of 1/2 tablet twice daily metoprolol succinate ER 50 mg tablet,extended release 24 hr RxNorm: 393305 Take 1/2 (one-half) tablet by mouth twice daily 04/12/2021 10/11/2021 Inact beto simvastatin 20 mg tablet RxNorm: 548593 Take 1 Tablet(s) Oral QD 03/07/2021 Inactive prednisone 10 mg tablet RxNorm: 280364 Take 1 Tablet(s) Oral tw o times a day 03/01/2021 03/01/2021 Inactive triamcinolone acetonide 0.1 % topical cream RxNorm: 4559234 Apply 1 Application Topical two times a day 03/01/2021 03/01/2021 Inactive prednisone 10 mg tablet RxNorm: 371317 Take 1 Tablet(s) Oral tw o times a day 03/01/2021 03/03/2021 Inactive triamcinolone acetonide 0.1 % topical cream RxNorm: 7135683 Apply 1 Application Topical two times a day 03/01/2021 03/01/2021 Inactive Euthyrox 88 mcg tablet RxNorm: 706174 Take 1 tablet by mouth on ce daily 02/22/2021 02/22/2021 Inactive Effexor XR 37.5 mg capsule,extended release RxNorm: 704027 1 Capsule(s) Oral QAM 02/03/2021 02/02/2021 Inactive Effexor XR 37.5 mg capsule,extended release RxNorm: 067449 1 Capsule(s) Oral QAM 02/03/2021 04/03/2021 Inactive simvastatin 20 mg tablet RxNorm: 307996 Take 1 tablet by mouth once daily 1 01/25/2021 01/25/2021 Inactive Cardizem CD 120 mg capsule,extended release RxNorm: 066481 1 Capsule(s) Oral two times a day replaces 180mg dose 01/19/2021 01/19/2021 Inactive Protonix 40 mg tablet,delayed release RxNorm: 086050 1 Tablet(s ) Oral QD 01/17/2021 01/17/2021 Inactive Effexor XR 37.5 mg capsule,extended release RxNorm: 120285 1 Capsule(s) Oral QAM 01/04/2021 02/02/2021 Inactive scopolamine 1 mg over 3 days transdermal patch RxNorm: 92278 2 1 Application Transdermal behind ear for vertigo 01/04/2021 01/03/2021 Inactive scopolamine 1 mg over 3 days transdermal patch RxNorm: 80976 2 1 Application Transdermal behind ear for vertigo 01/04/2021 01/04/2021 Inactive metoprolol succinate ER 50 mg tablet,extended release 24 hr RxNorm: 274067 1/2 Tablet(s) Oral two times a day 12/29/2020 12/28/2020 Inactive metoprolol succinate ER 50 mg tablet,extended release 24 hr RxNorm: 111291 1/2 Tablet(s) Oral two times a day 12/29/2020 12/29/2020 Inactive d ecrease in dose of 1/2 tablet twice daily Xarelto 10 mg tablet RxNorm: 4127498 Take 1 tablet by mouth once daily 12/29/2020 03/29/2021 Inactive Xarelto 10 mg tablet RxNorm: 5517003 Take 1 tablet by mouth once daily 11/26/2020 12/28/2020 Inactive simvastatin 20 mg tablet RxNorm: 492154 Take 1 tablet by mouth once daily 11/26/2020 01/24/2021 Inactive Synthroid 88 mcg tablet RxNorm: 807227 Take 1 tablet by mouth o nce daily 10/21/2020 10/21/2020 Inactive simvastatin 20 mg tablet RxNorm: 868313 Take 1 tablet by mouth once daily 09/30/2020 11/25/2020 Inactive Xarelto 10 mg tablet RxNorm: 2069275 Take 1 tablet by mouth once daily 08/26/2020 11/23/2020 Inactive metoprolol succinate ER 50 mg tablet,extended release 24 hr RxNorm: 071202 1 Tablet(s) Oral two times a day 08/05/2020 11/03/2020 Inactive simvastatin 20 mg tablet RxNorm: 783748 Take 1 tablet by mouth once daily 07/30/2020 09/27/2020 Inactive Synthroid 88 mcg tablet RxNorm: 183368 Take 1 tablet by mouth o nce daily 07/27/2020 10/20/2020 Inactive Protonix 40 mg tablet,delayed release RxNorm: 541387 1 Tablet(s ) Oral QD 07/26/2020 10/24/2020 Inactive Xarelto 10 mg tablet RxNorm: 4328026 1 Tablet(s) Oral QD 06/03/2020 1 10/26/2019 Inactive Cardizem CD 120 mg capsule,extended release RxNorm: 001512 1 Capsule(s) Oral two times a day replaces 180mg dose 05/11/2020 11/07/2020 Inactive Pradaxa 75 mg capsule RxNorm: 0661318 1 Capsule(s) Oral two time s a day 05/11/2020 05/11/2020 Inactive meclizine 25 mg tablet RxNorm: 022655 1 Tablet(s) Oral every ni ght at bedtime 05/05/2020 10/11/2021 Inactive simvastatin 20 mg tablet RxNorm: 467095 Take 1 tablet by mouth once daily 05/04/2020 05/10/2020 Inactive simvastatin 20 mg tablet RxNorm: 512204 TAKE 1 TABLET BY MOUTH ONCE DAILY 04/29/2020 09/19/2020 Inactive Synthroid 88 mcg tablet RxNorm: 909224 TAKE 1 TABLET BY MOUTH O NCE DAILY 04/20/2020 07/18/2020 Inactive diltiazem CD 180 mg capsule,extended release 24 hr RxNorm: 8 64202 TAKE 1 CAPSULE BY MOUTH TWICE DAILY 04/05/2020 05/10/2020 Inactive simvastatin 20 mg tablet RxNorm: 527740 TAKE 1 TABLET BY MOUTH ONCE DAILY 02/24/2020 04/23/2020 Inactive aspirin 325 mg tablet RxNorm: 287341 1 Tablet(s) Oral QD 02/11/2020 0 05/10/2020 Inactive hydroxyzine HCl 10 mg tablet RxNorm: 223765 1 Tablet(s) Oral th ree times a day 01/28/2020 05/10/2020 Inactive diltiazem CD 180 mg capsule,extended release 24 hr RxNorm: 8 77966 TAKE 1 CAPSULE BY MOUTH TWICE DAILY 01/19/2020 04/04/2020 Inactive spironolactone 25 mg tablet RxNorm: 699787 1 Tablet(s) Oral QOD replaces Triam/HCTZ 01/15/2020 01/14/2020 Inactive spironolactone 25 mg tablet RxNorm: 269413 1 Tablet(s) Oral QOD replaces Triam/HCTZ 01/15/2020 01/26/2020 Inactive prednisone 20 mg tablet RxNorm: 154489 1 Tablet(s) Oral QD 01/12/20 20 01/14/2020 Inactive prednisone 20 mg tablet RxNorm: 008929 1 Tablet(s) Oral QD 01/12/20 20 01/11/2020 Inactive Benadryl 25 mg capsule RxNorm: 3728813 1 Capsule(s) Oral every n ight at bedtime 01/08/2020 05/10/2020 Inactive Pepcid 20 mg tablet RxNorm: 838622 1 Tablet(s) Oral two times a day 01/08/2020 07/25/2020 Inactive [place] Original 0.5 %-0.5 % lotion RxNorm: 124191 Topical 0 10/11/2021 Inactive Zyrtec 10 mg tablet RxNorm: 5353810 1 Tablet(s) Oral QAM 01/08/2020 0 05/10/2020 Inactive metoprolol succinate ER 50 mg tablet,extended release 24 hr RxNorm: 783414 1 Tablet(s) Oral two times a day 01/05/2020 04/04/2020 Inactive Protonix 40 mg tablet,delayed release RxNorm: 378873 TA KE 1 TABLET BY MOUTH ONCE DAILY 12/29/2019 05/10/2020 Inactive triamterene 37.5 mg-hydrochlorothiazide 25 mg tablet RxNorm: 127100 TAKE 1/2 (ONE-HALF) TABLET BY MOUTH EVERY OTHER DAY 12/24/2019 01/14/2020 Inact beto triamterene 37.5 mg-hydrochlorothiazide 25 mg tablet RxNorm: 493047 1/2 Tablet(s) Oral QD 12/12/2019 01/26/2020 Inactive diltiazem CD 180 mg capsule,extended release 24 hr RxNorm: 8 87053 TAKE 1 CAPSULE BY MOUTH TWICE DAILY 12/03/2019 01/18/2020 Inactive Eliquis 2.5 mg tablet RxNorm: 2275524 1 Tablet(s) Oral two times a day 11/25/2019 02/10/2020 Inactive simvastatin 20 mg tablet RxNorm: 732433 TAKE 1 TABLET BY MOUTH ONCE DAILY 11/25/2019 02/22/2020 Inactive triamterene 37.5 mg-hydrochlorothiazide 25 mg tablet RxNorm: 535276 1/2 Tablet(s) Oral QOD 11/06/2019 12/11/2019 Inactive triamterene 37.5 mg-hydrochlorothiazide 25 mg tablet RxNorm: 039729 1/2 Tablet(s) Oral QD 10/22/2019 10/28/2019 Inactive meclizine 25 mg tablet RxNorm: 341465 1 Tablet(s) Oral every ni ght at bedtime 10/20/2019 11/19/2019 Inactive Synthroid 88 mcg tablet RxNorm: 217315 TAKE 1 TABLET BY MOUTH O NCE DAILY 10/20/2019 10/21/2019 Inactive scopolamine 1 mg over 3 days transdermal patch RxNorm: 15436 2 1 Unit Dose Transdermal Q72H for vertigo 10/14/2019 01/04/2020 Inactive scopolamine 1 mg over 3 days transdermal patch RxNorm: 86914 2 1 Unit Dose Transdermal Q72H for vertigo 10/14/2019 10/14/2019 Inactive Celebrex 200 mg capsule RxNorm: 777041 TAKE 1 CAPSULE BY MOUTH ONCE DAILY 10/12/2019 10/28/2019 Inactive triamterene 37.5 mg-hydrochlorothiazide 25 mg tablet RxNorm: 927057 1 Tablet(s) Oral QAM 10/06/2019 10/21/2019 Inactive diltiazem CD 180 mg capsule,extended release 24 hr RxNorm: 8 99527 1 Capsule(s) Oral two times a day 10/01/2019 11/29/2019 Inactive simvastatin 20 mg tablet RxNorm: 066722 TAKE 1 TABLET BY MOUTH ONCE DAILY 10/01/2019 10/01/2019 Inactive Patient will need to have fasting labs done before next refill Protonix 40 mg tablet,delayed release RxNorm: 141502 TA KE 1 TABLET BY MOUTH ONCE DAILY 09/28/2019 12/26/2019 Inactive diltiazem CD 180 mg capsule,extended release 24 hr RxNorm: 8 55178 1 Capsule(s) Oral two times a day 08/11/2019 08/10/2019 Inactive diltiazem CD 180 mg capsule,extended release 24 hr RxNorm: 8 05029 1 Capsule(s) Oral two times a day 08/11/2019 09/30/2019 Inactive diltiazem CD 120 mg capsule,extended release 24 hr RxNorm: 8 53464 1 Capsule(s) Oral two times a day 07/23/2019 08/10/2019 Inactive Celebrex 200 mg capsule RxNorm: 529914 1 Capsule(s) Oral QD 019 07/08/2019 Inactive Celebrex 200 mg capsule RxNorm: 180596 1 Capsule(s) Oral QD 10/07/2019 Inactive diltiazem CD 120 mg capsule,extended release 24 hr RxNorm: 8 73054 1 Capsule(s) Oral QAM 07/07/2019 07/22/2019 Inactive Eliquis 2.5 mg tablet RxNorm: 3225213 1 Tablet(s) Oral two times a day 07/07/2019 11/04/2019 Inactive metoprolol succinate ER 50 mg tablet,extended release 24 hr RxNorm: 192281 1 Tablet(s) Oral QAM and 2 tablets in the evening 06/30/2019 08/05/2020 Inactive hydrochlorothiazide 25 mg tablet RxNorm: 313875 1 Tablet(s) PO QD 1 07/06/2019 Inactive hydrochlorothiazide 25 mg tablet RxNorm: 608933 1 Tablet(s) PO QD 0 05/08/2019 05/07/2019 Inactive patient needs to follow up i n 2 months and continue BP readings at home hydrochlorothiazide 25 mg tablet RxNorm: 577572 1 Tablet(s) PO QD 0 05/08/2019 06/25/2019 Inactive patient needs to follow up i n 2 months and continue BP readings at home metoprolol succinate ER 50 mg tablet,extended release 24 hr RxNorm: 639512 1 Tablet(s) PO QAM and 2 tablets in the evening 05/08/2019 06/29/2019 In active hydrochlorothiazide 12.5 mg tablet RxNorm: 780365 1 Tablet(s) PO QA M 04/15/2019 05/07/2019 Inactive Synthroid 88 mcg tablet RxNorm: 944940 TAKE 1 TABLET BY MOUTH O NCE DAILY 04/14/2019 10/19/2019 Inactive Protonix 40 mg tablet,delayed release RxNorm: 599959 TA KE 1 TABLET BY MOUTH ONCE DAILY 03/24/2019 09/27/2019 Inactive simvastatin 20 mg tablet RxNorm: 479087 TAKE 1 TABLET BY MOUTH ONCE DAILY 03/24/2019 09/30/2019 Inactive losartan 100 mg tablet RxNorm: 460910 1/2 Tablet(s) PO QD 2019 04/14/2019 Inactive Cozaar 50 mg tablet RxNorm: 480979 1 Tablet(s) PO QHS 01/28/201903/25 Inactive Celebrex 200 mg capsule RxNorm: 633980 TAKE 1 CAPSULE BY MOUTH ONCE DAILY 01/10/2019 07/08/2019 Inactive Protonix 40 mg tablet,delayed release RxNorm: 415154 TA KE 1 TABLET BY MOUTH ONCE DAILY 12/23/2018 03/23/2019 Inactive metoprolol succinate ER 50 mg tablet,extended release 24 hr RxNorm: 892253 1.5 Tablet(s) PO BID 12/03/2018 04/14/2019 Inactive Synthroid 88 mcg tablet RxNorm: 599410 1 Tablet(s) PO QD 10/24/2018 0 04/13/2019 Inactive simvastatin 20 mg tablet RxNorm: 920417 1 Tablet(s) PO QD 09/27/2018 12/25/2018 Inactive simvastatin 20 mg tablet RxNorm: 411310 1 Tablet(s) PO QD 09/26/2018 09/26/2018 Inactive Cozaar 50 mg tablet RxNorm: 002026 1 Tablet(s) PO QHS 09/09/2018 050 02/2019 Inactive Cozaar 50 mg tablet RxNorm: 304157 1 Tablet(s) PO QHS 09/09/201808/24 Inactive metoprolol succinate ER 50 mg tablet,extended release 24 hr RxNorm: 887615 1.5 Tablet(s) PO BID 09/02/2018 11/30/2018 Inactive Cozaar 50 mg tablet RxNorm: 731461 1 Tablet(s) PO QHS 05/24/201808/24 Inactive Cozaar 25 mg tablet RxNorm: 350630 1 Tablet(s) PO QAM 05/10/201804/25 Inactive clonidine HCl 0.1 mg tablet RxNorm: 921657 1 Tablet(s) PO TID as needed for BP greater than 160/95 05/10/2018 05/20/2018 Inactive betamethasone dipropionate 0.05 % topical cream RxNorm: 2389 20 1 Application TOP BID 05/06/2018 11/25/2018 Inactive prednisone 20 mg tablet RxNorm: 300276 1 Tablet(s) PO QD 05/06/2018 0 05/05/2018 Inactive prednisone 20 mg tablet RxNorm: 908412 1 Tablet(s) PO QD 05/06/2018 0 05/10/2018 Inactive metoprolol succinate ER 50 mg tablet,extended release 24 hr RxNorm: 601016 1.5 Tablet(s) PO BID 05/06/2018 09/01/2018 Inactive Flonase Allergy Relief 50 mcg/actuation nasal spray,suspensi on RxNorm: 5385591 2 [place] NASAL QHS 05/03/2018 11/25/2018 Inactive Celebrex 200 mg capsule RxNorm: 400753 TAKE ONE CAPSULE BY MOUT H ONCE DAILY 04/30/2018 05/02/2018 Inactive Celebrex 200 mg capsule RxNorm: 606325 1 Capsule(s) PO QD TAKE ONE CAPSULE BY MOUTH ONCE DAILY 04/30/2018 05/02/2018 Inactive Synthroid 88 mcg tablet RxNorm: 469277 1 Tablet(s) PO QD 03/12/2018 1 11/08/2017 Inactive acyclovir 5 % topical ointment RxNorm: 353988 1 Unit Dose TOP Q 6H as needed 03/05/2018 11/25/2018 Inactive Protonix 40 mg tablet,delayed release RxNorm: 796610 1 Tablet(s ) PO QD 12/17/2017 12/22/2018 Inactive simvastatin 20 mg tablet RxNorm: 554572 TAKE ONE TABLET BY MOUT H ONCE DAILY 12/17/2017 09/27/2018 Inactive Celebrex 200 mg capsule RxNorm: 379907 TAKE ONE CAPSULE BY MOUT H ONCE DAILY 10/30/2017 04/29/2018 Inactive Synthroid 88 mcg tablet RxNorm: 626062 1 Tablet(s) PO QD 09/19/2017 0 03/12/2018 Inactive Synthroid 88 mcg tablet RxNorm: 575188 1 Tablet(s) PO QD Needs updated labs 09/19/2017 10/24/2018 Inactive Synthroid 88 mcg tablet RxNorm: 541623 1 Tablet(s) PO QD 06/20/2017 1 11/18/2016 Inactive simvastatin 20 mg tablet RxNorm: 631114 1 Tablet(s) PO QD 06/15/2017 09/12/2017 Inactive simvastatin 20 mg tablet RxNorm: 533725 1 Tablet(s) PO QD 06/15/2017 06/14/2017 Inactive metoprolol succinate ER 25 mg tablet,extended release 24 hr RxNorm: 189803 1 Tablet(s) PO QD 06/14/2017 07/23/2017 Inactive Valtrex 1 gram tablet RxNorm: 530501 1 Tablet(s) PO TID 06/01/2017 Inactive Celebrex 200 mg capsule RxNorm: 457418 1 Capsule(s) PO QD 05/01/2017 10/27/2017 Inactive Toprol XL 25 mg tablet,extended release RxNorm: 299210 09/25 Tabl et(s) PO QD 04/12/2017 06/13/2017 Inactive simvastatin 20 mg tablet RxNorm: 775054 1 Tablet(s) PO QD 03/19/2017 06/14/2017 Inactive Synthroid 88 mcg tablet RxNorm: 805870 1 Tablet(s) PO QD 03/14/2017 0 06/20/2017 Inactive aspirin 81 mg chewable tablet RxNorm: 969171 1 Tablet(s) PO QD 12/2404/21/2018 Inactive simvastatin 20 mg tablet RxNorm: 320998 TAKE ONE TABLET BY MOUT H ONCE DAILY 12/19/2016 03/19/2017 Inactive gabapentin 300 mg capsule RxNorm: 544866 1 Capsule(s) PO QHS 201603/29/2017 Inactive Protonix 40 mg tablet,delayed release RxNorm: 377895 TA KE ONE TABLET BY MOUTH ONCE DAILY 12/14/2016 12/08/2017 Inactive Flonase Allergy Relief 50 mcg/actuation nasal spray,suspensi on RxNorm: 7982091 2 [place] NASAL QHS 11/02/2016 12/17/2016 Inactive clotrimazole-betamethasone 1 %-0.05 % topical cream RxNorm: 650126 1 Application TOP BID 11/02/2016 11/01/2016 Inactive clotrimazole-betamethasone 1 %-0.05 % topical cream RxNorm: 688652 1 Application TOP BID 11/02/2016 12/17/2016 Inactive Tessalon Perles 100 mg capsule RxNorm: 207519 1 Capsule(s) PO TID 0 11/02/2016 12/17/2016 Inactive amoxicillin 500 mg tablet RxNorm: 916140 1 Tablet(s) PO TID 017 11/01/2016 Inactive Toprol XL 25 mg tablet,extended release RxNorm: 798797 TAKE ONE-HALF TABLET BY MOUTH ONCE DAILY 10/19/2016 04/12/2017 Inactive Toprol XL 25 mg tablet,extended release RxNorm: 116642 1/2 Tablet(s) PO QD Due for routine fasting labs and appointment 10/19/2016 01/16/2017 Inactiv e gabapentin 600 mg tablet RxNorm: 496181 1 Tablet(s) PO QHS 07/24/20 16 12/17/2016 Inactive gabapentin 600 mg tablet RxNorm: 538415 TAKE ONE TABLET BY MOUT H AT BEDTIME 07/24/2016 07/23/2016 Inactive simvastatin 20 mg tablet RxNorm: 013132 TAKE ONE TABLET BY MOUT H ONCE DAILY 06/15/2016 12/11/2016 Inactive Celebrex 200 mg capsule RxNorm: 790065 1 Capsule(s) PO QD 05/10/2016 05/01/2017 Inactive Celebrex 200 mg capsule RxNorm: 860907 1 Capsule(s) PO QD 05/09/2016 05/09/2016 Inactive Synthroid 88 mcg tablet RxNorm: 832988 Tablet(s) 1 Tablet(s) PO QD 03/21/2016 09/16/2016 Inactive Synthroid 88 mcg tablet RxNorm: 171801 1 Tablet(s) PO QD 03/20/2016 0 03/20/2016 Inactive simvastatin 20 mg tablet RxNorm: 622019 TAKE ONE TABLET BY MOUT H ONCE DAILY 03/06/2016 06/03/2016 Inactive meclizine 25 mg tablet RxNorm: 142708 1 Tablet(s) PO TID as nee ded dizziness 02/07/2016 12/17/2016 Inactive Zofran ODT 4 mg disintegrating tablet RxNorm: 131063 1 Tablet(s) PO Q6H as needed for nausea 02/07/2016 12/17/2016 Inactive gabapentin 600 mg tablet RxNorm: 608281 TAKE ONE TABLET BY MOUT H AT BEDTIME 01/20/2016 07/17/2016 Inactive Synthroid 88 mcg tablet RxNorm: 555226 1 Tablet(s) PO QD 12/27/2015 0 03/19/2016 Inactive simvastatin 20 mg tablet RxNorm: 417495 1 Tablet(s) PO QD 12/06/2015 03/04/2016 Inactive Protonix 40 mg tablet,delayed release RxNorm: 803022 1 Tablet(s ) PO QD 12/06/2015 12/13/2016 Inactive Celebrex 200 mg capsule RxNorm: 340559 1 Capsule(s) PO QD 11/03/2015 05/10/2016 Inactive Celebrex 200 mg capsule RxNorm: 933017 1 Capsule(s) PO QD 11/03/2015 11/02/2015 Inactive simvastatin 20 mg tablet RxNorm: 760188 1 Tablet(s) PO QD 09/06/2015 12/04/2015 Inactive Gralise 600 mg tablet,extended release RxNorm: 2256274 1 Tablet( s) PO QD 08/23/2015 10/18/2015 Inactive Synthroid 88 mcg tablet RxNorm: 110692 1 Tablet(s) PO QD 06/30/2015 0 09/27/2015 Inactive simvastatin 20 mg tablet RxNorm: 490788 1 Tablet(s) PO QD 06/07/2015 09/04/2015 Inactive Synthroid 88 mcg tablet RxNorm: 582875 1 Tablet(s) PO QD 06/07/2015 1 Inactive Celebrex 200 mg capsule RxNorm: 887626 1 Capsule(s) PO QD 06/07/2015 11/02/2015 Inactive Protonix 40 mg tablet,delayed release RxNorm: 762188 1 Tablet(s ) PO QD 06/07/2015 12/03/2015 Inactive Toprol XL 25 mg tablet,extended release RxNorm: 638058 1/2 Tabl et(s) PO QD 04/13/2015 10/09/2015 Inactive [SAVINGS FOR UNINSUR ED PATIENTS -- [id number], PCN: ASPROD1, Group: [id number], ID# [id number], Process claim through [employer], for questions: . THIS IS NOT INSURANCE.] Synthroid 88 mcg tablet RxNorm: 818258 1 Tablet(s) PO Q D TAKE ONE TABLET BY MOUTH ONCE DAILY 03/29/2015 06/30/2015 Inactive Celebrex 200 mg capsule RxNorm: 113464 1 Capsule(s) PO QD 03/22/2015 06/06/2015 Inactive Celebrex 200 mg capsule RxNorm: 270595 1 Capsule(s) PO QD 02/22/2015 03/21/2015 Inactive Celebrex 200 mg capsule RxNorm: 352571 1 Capsule(s) PO QD 01/21/2015 02/21/2015 Inactive Synthroid 88 mcg tablet RxNorm: 055281 1 Tablet(s) PO Q D TAKE ONE TABLET BY MOUTH ONCE DAILY 12/21/2014 03/29/2015 Inactive meloxicam 15 mg tablet RxNorm: 652153 1 Tablet(s) PO QD 12/09/2014 Inactive [SAVINGS FOR NON-COVERED DRUGS -- BIN:00 [id number], PCN: ASPROD1, Group: [id number], ID# [id number], Questions: . THIS IS NOT INSURANCE.] Protonix 40 mg tablet,delayed release RxNorm: 697179 1 Tablet(s ) PO QD 12/08/2014 06/05/2015 Inactive Protonix 40 mg tablet,delayed release RxNorm: 869027 1 Tablet(s ) PO QD 12/07/2014 12/07/2014 Inactive simvastatin 20 mg tablet RxNorm: 746592 TAKE ONE TABLET BY MOUT H ONCE DAILY 11/30/2014 05/28/2015 Inactive clotrimazole-betamethasone 1 %-0.05 % topical cream RxNorm: 3087 14 TOP BID 11/30/2014 11/01/2016 Inactive acetic acid 2 % ear solution RxNorm: 036744 5 Drop(s) OTIC Left ear QID 11/30/2014 12/06/2014 Inactive meloxicam 15 mg tablet RxNorm: 448898 1 Tablet(s) PO QD 10/30/2014 Inactive [SAVINGS FOR NON-COVERED DRUGS -- BIN:[id number], PCN: [id number], Group: [id number], ID# [id number], Questions: . THIS IS NOT INSURANCE.] meloxicam 15 mg tablet RxNorm: 387950 1 Tablet(s) PO QD 10/30/2014 Inactive Toprol XL 25 mg tablet,extended release RxNorm: 886166 1/2 Tabl et(s) PO QD 10/12/2014 04/09/2015 Inactive [SAVINGS FOR UNINSUR ED PATIENTS -- BIN:[id number], PCN: [id number], Group: [id number], ID# [id number], Process claim through [employer], for questions: . THIS IS NOT INSURANCE.] Synthroid 88 mcg tablet RxNorm: 001553 1 Tablet(s) PO Q D TAKE ONE TABLET BY MOUTH ONCE DAILY 09/21/2014 12/19/2014 Inactive Protonix 40 mg tablet,delayed release RxNorm: 334181 1 Tablet(s ) PO QD 07/23/2014 11/19/2014 Inactive Synthroid 88 mcg tablet RxNorm: 992690 TAKE ONE TABLET BY MOUTH ONCE DAILY 06/23/2014 09/21/2014 Inactive omeprazole 40 mg capsule,delayed release RxNorm: 018345 1 Capsu le(s) PO QD 06/16/2014 07/22/2014 Inactive [SAVINGS FOR UNINSUR ED PATIENTS -- [id number], PCN: [id number], Group: [id number], ID# [id number], Process claim through [employer], for questions: . THIS IS NOT INSURANCE.] Toprol XL 25 mg tablet,extended release RxNorm: 205486 1/2 Tabl et(s) PO QD 04/13/2014 10/12/2014 Inactive Celebrex 200 mg capsule RxNorm: 546841 1 Capsule(s) PO QD for pain 03/16/2014 10/29/2014 Inactive Medrol ([place]) 4 mg tablets in a dose pack RxNorm: 400677 Tablet(s) PO as directed 03/09/2014 07/22/2014 Inactive Synthroid 88 mcg tablet RxNorm: 755076 1 Tablet(s) PO QD 02/17/2014 0 06/23/2014 Inactive Celebrex 200 mg capsule RxNorm: 505076 1 Capsule(s) PO QD for pain 02/17/2014 03/15/2014 Inactive omeprazole 40 mg capsule,delayed release RxNorm: 784960 1 Capsu le(s) PO QD 02/05/2014 06/16/2014 Inactive Protonix 40 mg tablet,delayed release RxNorm: 719208 1 Tablet(s ) PO QD 01/23/2014 05/10/2020 Inactive Toprol XL 25 mg tablet,extended release RxNorm: 464811 1/2 Tablet(s) PO QD TAKE ONE-HALF TABLET BY MOUTH EVERY DAY 01/12/2014 04/13/2014 Inactive Synthroid 88 mcg tablet RxNorm: 279258 Tablet(s) PO MANDY E ONE TABLET BY MOUTH EVERY DAY 11/17/2013 02/17/2014 Inactive Celebrex 200 mg capsule RxNorm: 929818 1 Capsule(s) PO QD for pain 10/20/2013 02/17/2014 Inactive Toprol XL 25 mg tablet,extended release RxNorm: 039329 1/2 Tabl et(s) PO QD 07/17/2013 01/12/2014 Inactive Nexium 40 mg capsule,delayed release RxNorm: 450076 1 C apsule(s) PO QD Generic ok 07/14/2013 09/21/2013 Inactive Celebrex 200 mg capsule RxNorm: 754974 1 Capsule(s) PO QD for pain 06/19/2013 10/20/2013 Inactive Synthroid 88 mcg tablet RxNorm: 332039 1 Tablet(s) PO QD 05/13/2013 0 11/17/2013 Inactive TAKE ONE TABLET BY MOUTH EVERY DAY Nexium 40 mg capsule,delayed release RxNorm: 067392 Cap maureen(s) PO TAKE ONE CAPSULE BY MOUTH EVERY DAY 05/05/2013 07/13/2013 Inactive Celebrex 200 mg capsule RxNorm: 001699 1 Capsule(s) PO QD for pain 04/07/2013 06/19/2013 Inactive Esgic-Plus 50 mg-500 mg-40 mg capsule RxNorm: 260187 1 Capsule(s) PO Q4-6H prn headache 04/07/2013 04/07/2013 Inactive Toprol XL 25 mg tablet,extended release RxNorm: 917884 1/2 Tabl et(s) PO QD 12/16/2012 06/13/2013 Inactive Nexium 40 mg capsule,delayed release RxNorm: 173259 1 Capsule(s ) PO QD 11/20/2012 03/19/2013 Inactive Synthroid 88 mcg tablet RxNorm: 314159 1 Tablet(s) PO QD 10/28/2012 0 04/25/2013 Inactive TAKE ONE TABLET BY MOUTH EVERY DAY Toprol XL 25 mg tablet,extended release RxNorm: 670794 1/2 Tabl et(s) PO QD 09/25/2012 12/16/2012 Inactive Synthroid 88 mcg tablet RxNorm: 960012 1 Tablet(s) PO QD 04/22/2012 0 10/28/2012 Inactive TAKE ONE TABLET BY MOUTH EVERY DAY Nexium 40 mg capsule,delayed release RxNorm: 551615 1 Capsule(s ) PO QD 04/16/2012 11/20/2012 Inactive Esgic-Plus 50 mg-500 mg-40 mg capsule RxNorm: 576184 1 Capsule(s) PO Q4-6H prn headache 03/28/2012 04/06/2013 Inactive Toprol XL 25 mg tablet,extended release RxNorm: 738899 1/2 Tabl et(s) PO QD 03/07/2012 09/25/2012 Inactive Toprol XL 25 mg 24 hr Tab RxNorm: 680414 1/2 Tablet(s) PO QD 201101/03/2012 Inactive Three times a week Synthroid 88 mcg Tab RxNorm: 119068 1 Tablet(s) PO QD 10/10/201112/23 Inactive TAKE ONE TABLET BY MOUTH EVERY DAY prednisone 20 mg Tab RxNorm: 683595 1 Tablet(s) PO BID 09/13/2011 Inactive doxycycline 100 mg Cap RxNorm: 3670169 1 Capsule(s) PO BID 09/13/20 11 09/22/2011 Inactive cefdinir 300 mg Cap RxNorm: 301139 1 Capsule(s) PO BID 08/07/2011 Inactive Synthroid 88 mcg Tab RxNorm: 881091 1 Tablet(s) PO QD 07/19/201109/24 Inactive TAKE ONE TABLET BY MOUTH EVERY DAY Synthroid 88 mcg Tab RxNorm: 672013 1 Tablet(s) PO QD 07/19/201103/26 Inactive TAKE ONE TABLET BY MOUTH EVERY DAY Synthroid 88 mcg Tab RxNorm: 758938 1 Tablet(s) PO QD 07/18/201106/25 Inactive TAKE ONE TABLET BY MOUTH EVERY DAY Synthroid 88 mcg Tab RxNorm: 019063 1 Tablet(s) PO QD 05/15/201106/25 Inactive TAKE ONE TABLET BY MOUTH EVERY DAY Synthroid 88 mcg Tab RxNorm: 961992 1 Tablet(s) PO QD 03/15/201104/25 Inactive Synthroid 75 mcg Tab RxNorm: 104636 1 Tablet(s) PO QD 01/04/201102/22 Inactive Synthroid 50 mcg Tab RxNorm: 752159 1 Tablet(s) PO QD G eneric okay. Please explain to patient that she may see more variation in her thyroid labs and increased symptoms. 07/07/2010 03/14/2011 Inactive Prednisone 20 mg Tab RxNorm: 799973 1 Tablet(s) PO BID 02/14/2010 Inactive Flexeril 10 mg Tab RxNorm: 927400 1 Tablet(s) PO TID 02/07/201002/13 Inactive Synthroid 25 mcg Tab RxNorm: 439700 1 Tablet(s) PO QD 12/29/200902/23 Inactive Synthroid 50 mcg Tab RxNorm: 042784 1 Tablet(s) PO QD 12/29/200911/2009 Inactive Vitamin D3 2,000 unit tablet RxNorm: 673194 1 Tablet(s) PO QAM 2014 Active coenzyme Q10 200 mg tablet RxNorm: 093515 1 Tablet(s) PO QD 09/01/2014 Active Trelegy Ellipta inhalation RxNorm: 4160268 inhalation 05/30/2022 Active Vitamin B12 1000mcg Tablet RxNorm: 1/2 Tablet(s) PO QD 04/03/2017 Active gabapentin 600 mg tablet RxNorm: 796877 1 Tablet(s) PO QPM 01/20/20 16 01/19/2016 Inactive Fish Oil 1,000 mg capsule RxNorm: 1 Capsule(s) PO QHS 10/18/2017 0 10/17/2017 Inactive Toprol XL 25 mg 24 hr Tab RxNorm: 108292 1/2 Tablet(s) PO QD 201103/06/2012 Inactive turmeric root extract oral RxNorm: 5420755 oral 05/26/20152014 Inactive Esgic 50 mg-325 mg-40 mg tablet RxNorm: 961221 1 Tablet (s) PO Q4H as needed for pain 05/26/2015 05/25/2015 Inactive Synthroid 88 mcg Tab RxNorm: 475681 1 Tablet(s) PO QD 03/15/201102/23 Inactive Calcium with Vitamin D 600 mg-400 unit Tab RxNorm: 183446 1 Tab let(s) PO BID 03/31/2013 03/30/2013 Inactive Synthroid 50 mcg Tab RxNorm: 427318 1 Tablet(s) PO QD 03/16/201002/23 Inactive Celebrex 200 mg capsule RxNorm: 080401 1 Capsule(s) PO QD 01/21/2015 01/20/2015 Inactive betamethasone dipropionate 0.05 % topical cream RxNorm: 2389 20 1 Application TOP BID 05/06/2018 05/05/2018 Inactive Protonix 40 mg tablet,delayed release RxNorm: 095904 1 Tablet(s ) PO QD 01/23/2014 01/23/2014 Inactive Calcium + D 600 mg (1,500)-200 unit Tab RxNorm: 315196 1 Tablet (s) PO QD 01/04/2011 01/03/2011 Inactive simvastatin 20 mg tablet RxNorm: 632561 1 Tablet(s) PO QD 11/30/2014 11/29/2014 Inactive Fish Oil 1,000 mg capsule RxNorm: 2 Capsule(s) PO QD 05/26/2015 Inactive Gralise 600 mg tablet,extended release RxNorm: 5046759 1 Tablet( s) PO QD 08/23/2015 08/22/2015 Inactive Vitamin B12 1000mcg Tablet RxNorm: 1 Tablet(s) PO QD 04/03/2017 Inactive Esgic-Plus 50 mg-500 mg-40 mg Cap RxNorm: 911405 1 Caps ule(s) PO Q4-6H prn headache 03/28/2012 03/27/2012 Inactive Cozaar 50 mg tablet RxNorm: 098746 1 Tablet(s) PO QHS 05/24/201804/26 Inactive Toprol XL 25 mg 24 hr Tab RxNorm: 415325 2 Tablet(s) PO Three t imes a week 01/01/2012 12/31/2011 Inactive metoprolol succinate ER 25 mg tablet,extended release 24 hr RxNorm: 038655 1 Tablet(s) PO TID 10/18/2017 10/17/2017 Inactive metoprolol succinate ER 50 mg tablet,extended release 24 hr RxNorm: 313038 1.5 Tablet(s) PO QAM and tablet at bedtime 05/06/2018 05/05/2018 Inactive Esgic-Plus 50 mg-500 mg-40 mg Cap RxNorm: 433938 1 Capsule(s) P O Q4-6H 08/07/2011 08/06/2011 Inactive metoprolol succinate ER 50 mg tablet,extended release 24 hr RxNorm: 858713 1 Tablet(s) PO QD 04/22/2018 04/21/2018 Inactive Multivitamin & Mineral Formula Tab RxNorm: 1 Tablet(s) PO QD 0 03/31/2013 03/30/2013 Inactive metoprolol succinate ER 50 mg tablet,extended release 24 hr RxNorm: 744982 2 Tablet(s) PO QAM and 1.5 tablets (75mg) at bedtime 05/01/2019 9 Inactive Fish Oil 1,000 mg Cap RxNorm: 1 Capsule(s) PO QD 03/31/20132012 Inactive pantoprazole 40 mg tablet,delayed release RxNorm: 870774 1 Tabl et(s) PO QD 02/05/2014 02/04/2014 Inactive Eliquis 2.5 mg tablet RxNorm: 2551198 1 Tablet(s) PO BID 07/07/2019 1 Inactive Medrol 4 mg Tab RxNorm: 306102 Tablet(s) PO as directed 03/28/2012 Inactive Synthroid 75 mcg Tab RxNorm: 459371 1 Tablet(s) PO QD 02/14/201001/23 Inactive aspirin 81 mg tablet RxNorm: 800040 1 Tablet(s) PO QD 05/26/2015 090 09/2014 Inactive meclizine 25 mg tablet RxNorm: 740728 1 Tablet(s) PO TID as needed 11/26/2018 11/25/2018 Inactive metoprolol succinate ER 50 mg tablet,extended release 24 hr RxNorm: 823392 1 Tablet(s) PO QAM and 2 tablets in the evening 05/08/2019 05/07/2019 In active Aspirin 81 mg Tab RxNorm: 206391 1 Tablet(s) PO QD 03/31/2013 013 Inactive Vitamin D3 1,000 unit capsule RxNorm: 137243 1 Capsule(s) PO QD 04/201303/30/2013 Inactive Medication Administered No Medication Administered data Immunizations Vaccine Codes Dose Date Status Pneumococcal CVX: 133 0.5 ml 05/26/2015 Results Observation Observation Code Item Item Code Result Date S ervice Location GLYCOSYLATED HEMOGLOBIN TEST 25914 Hgb A1c 17916-9 6.0 % 0 03/01/2022 Unknown MEAN GLUC 4418625 Calc Mean Gluc 126 mg/dL 03/01/2022 Unkn own COMPREHENSIVE METABOLIC 54613 AST 16 U/L 2021 Unknown COMPREHENSIVE METABOLIC 91798 ALT 15 U/L 2021 Unknown COMPREHENSIVE METABOLIC 07478 BUN 18 mg/dL 2021 Unknown COMPREHENSIVE METABOLIC 02002 ALBUMIN 4.3 g/dL 2021 Unknown COMPREHENSIVE METABOLIC 73223 CHLORIDE 104 mmol/L 02/28 Unknown COMPREHENSIVE METABOLIC 60439 Bili Total 0.8 mg/dL 02/28 Unknown COMPREHENSIVE METABOLIC 53767 ALK PHOS 93 U/L 2021 Unknown COMPREHENSIVE METABOLIC 74801 SODIUM 143 mmol/L 02/28 Unknown COMPREHENSIVE METABOLIC 36312 CREATININE 0.82 mg/dL 03/2022 Unknown COMPREHENSIVE METABOLIC 59230 CALCIUM 9.8 mg/dL 2021 Unknown COMPREHENSIVE METABOLIC 46863 POTASSIUM 4.2 mmol/L 02/28 Unknown COMPREHENSIVE METABOLIC 12767 Total Protein 7.7 g/dL Unknown COMPREHENSIVE METABOLIC 86390 Glucose 116 mg/dL 2021 Unknown COMPREHENSIVE METABOLIC 35472 Bicarbonate 26 mmol/L 03/2022 Unknown COMPREHENSIVE METABOLIC 19800 AGAP 13 mmol/L 2021 Unknown FREE T4 70237 T4 Free 1.15 ng/dL 02/28/2022 Unknown THYROID STIMULATING HORMONE 31087 TSH 3.512 uIU/mL 02/28/2022 Unknown LIPID GROUP 61677 Cholesterol 158 mg/dL 02/28/2022 Unkno wn [facility] 30025 Triglyceride 78 mg/dL 02/28/2022 Unkn own L[facility] 75703 HDL CHOLESTEROL 66 mg/dL 02/28/2022 U nknown LIP[facility] GROUP 31547 Chol/HDL Ratio 2.39 ratio 02/28/2022 U nknown LIPID GROUP 67344 NON-HDL Chol 92 mg/dL 02/28/2022 Unkn own LIP[facility] GROUP 32110 LDL Cholesterol 76 mg/dL 02/28/2022 [facility] [id number] WBC 6.9 10e9/L 02/29/20 22 Unknown COMPLETE BLOOD COUNT [id number] RBC 4.61 10e12/L 2021 Unknown COMPLETE BLOOD COUNT [id number] HEMOGLOBIN 13.0 g/dL 02/29/20 22 Unknown COMPLETE BLOOD COUNT [id number] HEMATOCRIT 42.1 % 02/29/20 22 Unknown COMPLETE BLOOD COUNT [id number] MCV 91.3 fL 2 Unknown COMPLETE BLOOD COUNT [id number] MCH 28.2 pg 2 Unknown COMPLETE BLOOD COUNT [id number] MCHC 30.9 g/dL 2 Unknown COMPLETE BLOOD COUNT [id number] PLATELET COUNT 276 10e9/L 03/2022 Unknown COMPLETE BLOOD COUNT [id number] Mean Plt Volume 10.6 fL 03/2022 Unknown COMPLETE BLOOD COUNT [id number] NRBC Absolute 0.00 10e9/L 03/2022 Unknown COMPLETE BLOOD COUNT [id number] Neut Auto 53.0 % 2 Unknown COMPLETE BLOOD COUNT [id number] Lymph Auto 32.0 % 02/29/20 22 Unknown COMPLETE BLOOD COUNT 3255503 NRBC/100 WBC 0.0 2021 Unknown COMPLETE BLOOD COUNT [id number] [place] Auto 11.0 % 2 Unknown COMPLETE BLOOD COUNT [id number] Eos Auto 2.5 % 2 Unknown COMPLETE BLOOD COUNT [id number] RDW 14.4 % 2 Unknown COMPLETE BLOOD COUNT [id number] Baso Auto 1.4 % 2 Unknown COMPLETE BLOOD COUNT [id number] Neutrophil Abs 3.66 10e9/L Unknown COMPLETE BLOOD COUNT [id number] Imm Gran Auto 0.1 % 02/28 Unknown COMPLETE BLOOD COUNT [id number] Lymphocyte Abs 2.21 10e9/L Unknown COMPLETE BLOOD COUNT [id number] Monocyte Abs 0.76 10e9/L 0603/2022 Unknown COMPLETE BLOOD COUNT [id number] Eosinophil Abs 0.17 10e9/L Unknown COMPLETE BLOOD COUNT [id number] Basophil Abs 0.10 10e9/L 03/2022 Unknown COMPLETE BLOOD COUNT [id number] RDW-SD 47.8 fL 2 Unknown COMPLETE BLOOD COUNT [id number] Imm Gran Abs 0.01 10e9/L 03/2022 Unknown GFR CALC [id number] GFR >60 mL/min 02/28/2022 Unknown THYROID STIMULATING HORMONE 11895 TSH 3.017 uIU/mL 01/31/2021 Unknown COMPLETE BLOOD COUNT [id number] WBC 6.1 10e9/L 02/01/20 21 Unknown COMPLETE BLOOD COUNT [id number] RBC 4.22 10e12/L 2020 Unknown COMPLETE BLOOD COUNT [id number] HEMOGLOBIN 12.1 g/dL 02/01/20 21 Unknown COMPLETE BLOOD COUNT [id number] HEMATOCRIT 39.5 % 02/01/20 21 Unknown COMPLETE BLOOD COUNT [id number] MCV 93.6 fL 1 Unknown COMPLETE BLOOD COUNT [id number] MCH 28.7 pg 1 Unknown COMPLETE BLOOD COUNT [id number] MCHC 30.6 g/dL 1 Unknown COMPLETE BLOOD COUNT [id number] PLATELET COUNT 271 10e9/L 06/2021 Unknown COMPLETE BLOOD COUNT 5848394 Mean Plt Volume 11.0 fL 06/2021 Unknown COMPLETE BLOOD COUNT [id number] Neut Auto 57.3 % 1 Unknown COMPLETE BLOOD COUNT [id number] Lymph Auto 28.3 % 02/01/20 21 Unknown COMPLETE BLOOD COUNT [id number] [place] Auto 10.9 % 1 Unknown COMPLETE BLOOD COUNT 4073548 Eos Auto 2.8 % 1 Unknown COMPLETE BLOOD COUNT [id number] RDW 14.4 % 1 Unknown COMPLETE BLOOD COUNT 1682415 Baso Auto 0.7 % 1 Unknown COMPLETE BLOOD COUNT [id number] Neutrophil Abs 3.50 10e9/L Unknown COMPLETE BLOOD COUNT [id number] Lymphocyte Abs 1.73 10e9/L Unknown COMPLETE BLOOD COUNT 1648537 Monocyte Abs 0.66 10e9/L 01/22 Unknown COMPLETE BLOOD COUNT [id number] Eosinophil Abs 0.17 10e9/L Unknown COMPLETE BLOOD COUNT [id number] RDW-SD 47.4 fL Unknown COMPLETE BLOOD COUNT 7040005 Basophil Abs 0.04 10e9/L 01/22 Unknown GLYCOSYLATED HEMOGLOBIN TEST 88572 Hgb A1c 19282-1 5.9 % 0 01/31/2021 Unknown LIPID GROUP 99192 Cholesterol 151 mg/dL 01/31/2021 Unkno wn LIPID GROUP 27459 Triglyceride 68 mg/dL 01/31/2021 Unkn own LIPID GROUP 51129 HDL CHOLESTEROL 64 mg/dL 01/31/2021 U nknown LIPID GROUP 58022 Chol/HDL Ratio 2.36 ratio 01/31/2021 U nknown LIPID GROUP 90039 NON-HDL Chol 87 mg/dL 01/31/2021 Unkn own LIPID GROUP 12055 LDL Cholesterol 73 mg/dL 01/31/2021 U nknown MEAN GLUC 0430991 Calc Mean Gluc 123 mg/dL 01/31/2021 Unkn own FREE T4 60055 T4 Free 1.11 ng/dL 01/31/2021 Unknown COMPREHENSIVE METABOLIC 06760 AST 16 U/L 2020 Unknown COMPREHENSIVE METABOLIC 58343 ALT 12 U/L 2020 Unknown COMPREHENSIVE METABOLIC 86420 BUN 14 mg/dL 2020 Unknown COMPREHENSIVE METABOLIC 23229 ALBUMIN 4.3 g/dL 2020 Unknown COMPREHENSIVE METABOLIC 32710 CHLORIDE 106 mmol/L 01/31 Unknown COMPREHENSIVE METABOLIC 82156 Bili Total 0.9 mg/dL 01/31 Unknown COMPREHENSIVE METABOLIC 23332 ALK PHOS 96 U/L 2020 Unknown COMPREHENSIVE METABOLIC 33600 SODIUM 144 mmol/L 01/31 Unknown COMPREHENSIVE METABOLIC 60098 CREATININE 0.77 mg/dL 01/22 Unknown COMPREHENSIVE METABOLIC 90263 CALCIUM 9.4 mg/dL 2020 Unknown COMPREHENSIVE METABOLIC 50971 POTASSIUM 4.2 mmol/L 01/31 Unknown COMPREHENSIVE METABOLIC 04368 Total Protein 7.4 g/dL Unknown COMPREHENSIVE METABOLIC 38394 Glucose 94 mg/dL 2020 Unknown COMPREHENSIVE METABOLIC 51208 Bicarbonate 30 mmol/L 01/22 Unknown COMPREHENSIVE METABOLIC 95754 AGAP 8 mmol/L 2020 Unknown GFR CALC 7611594 GFR Non Afr Amr >60 mL/min 01/31/2021 Un known GFR CALC 1520393 GFR Afr Amr >60 mL/min 01/31/2021 Unknow n COMPLETE BLOOD COUNT [id number] WBC 6.9 10e9/L 01/05/20 20 Unknown COMPLETE BLOOD COUNT [id number] RBC 4.20 10e12/L 2019 Unknown COMPLETE BLOOD COUNT 0578534 HEMOGLOBIN 12.2 g/dL 01/05/20 20 Unknown COMPLETE BLOOD COUNT [id number] HEMATOCRIT 39.2 % 01/05/20 20 Unknown COMPLETE BLOOD COUNT 5659474 MCV 93.3 fL 0 Unknown COMPLETE BLOOD COUNT [id number] MCH 29.0 pg 0 Unknown COMPLETE BLOOD COUNT 3211835 MCHC 31.1 g/dL 0 Unknown COMPLETE BLOOD COUNT 4642483 PLATELET COUNT 272 10e9/L Unknown COMPLETE BLOOD COUNT 8554468 Mean Plt Volume 11.0 fL Unknown COMPLETE BLOOD COUNT 3553273 Neut Auto 61.4 % 0 Unknown COMPLETE BLOOD COUNT 0043411 Lymph Auto 22.4 % 01/05/20 20 Unknown COMPLETE BLOOD COUNT [id number] [place] Auto 11.7 % 0 Unknown COMPLETE BLOOD COUNT 4067125 RDW 14.6 % 0 Unknown COMPLETE BLOOD COUNT 6657795 Eos Auto 3.6 % 0 Unknown COMPLETE BLOOD COUNT 4149914 Baso Auto 0.9 % 0 Unknown COMPLETE BLOOD COUNT [id number] Neutrophil Abs 4.24 10e9/L Unknown COMPLETE BLOOD COUNT [id number] Lymphocyte Abs 1.55 10e9/L Unknown COMPLETE BLOOD COUNT [id number] Monocyte Abs 0.81 10e9/L 12/23 Unknown COMPLETE BLOOD COUNT 1394913 Eosinophil Abs 0.25 10e9/L Unknown COMPLETE BLOOD COUNT 6828063 RDW-SD 48.2 fL 0 Unknown COMPLETE BLOOD COUNT [id number] Basophil Abs 0.06 10e9/L 12/23 Unknown COMPREHENSIVE METABOLIC 23430 AST 17 U/L 2019 Unknown COMPREHENSIVE METABOLIC 62865 ALT 12 U/L 2019 Unknown COMPREHENSIVE METABOLIC 64723 BUN 18 mg/dL 2019 Unknown COMPREHENSIVE METABOLIC 66119 ALBUMIN 4.5 g/dL 2019 Unknown COMPREHENSIVE METABOLIC 16163 CHLORIDE 101 mmol/L 01/04 Unknown COMPREHENSIVE METABOLIC 61790 Bili Total 0.8 mg/dL 01/04 Unknown COMPREHENSIVE METABOLIC 78348 ALK PHOS 76 U/L 2019 Unknown COMPREHENSIVE METABOLIC 86928 SODIUM 141 mmol/L 01/04 Unknown COMPREHENSIVE METABOLIC 30027 CREATININE 1.02 mg/dL 12/23 Unknown COMPREHENSIVE METABOLIC 38435 CALCIUM 9.5 mg/dL 2019 Unknown COMPREHENSIVE METABOLIC 72719 POTASSIUM 3.9 mmol/L 01/04 Unknown COMPREHENSIVE METABOLIC 65243 Total Protein 7.4 g/dL Unknown COMPREHENSIVE METABOLIC 92970 Glucose 89 mg/dL 2019 Unknown COMPREHENSIVE METABOLIC 51341 Bicarbonate 28 mmol/L 12/23 Unknown COMPREHENSIVE METABOLIC 58260 AGAP 12 mmol/L 2019 Unknown LIPASE 33714 Lipase Lvl 34 IU/L 01/05/2020 Unknown THYROID STIMULATING HORMONE 39989 TSH 3.767 uIU/mL 01/05/2020 Unknown AMYLASE 42656 Amylase Lvl 60 IU/L 01/05/2020 Unknown GFR CALC 1469336 GFR Afr Amr >60 mL/min 01/05/2020 Unknow n GFR CALC 0023879 GFR Non Afr Amr 52 mL/min 01/05/2020 Unk nown FREE T4 16503 T4 Free 1.11 ng/dL 01/05/2020 Unknown GFR CALC 8648472 GFR Afr Amr >60 mL/min 12/05/2019 Unknow n GFR CALC 0167622 GFR Non Afr Amr 59 mL/min 12/05/2019 Unk nown COMPREHENSIVE METABOLIC 79095 AST 15 U/L 2019 Unknown COMPREHENSIVE METABOLIC 27242 ALT 12 U/L 2019 Unknown COMPREHENSIVE METABOLIC 32560 BUN 19 mg/dL 2019 Unknown COMPREHENSIVE METABOLIC 32048 ALBUMIN 4.2 g/dL 2019 Unknown COMPREHENSIVE METABOLIC 32881 CHLORIDE 104 mmol/L 12/04 Unknown COMPREHENSIVE METABOLIC 83298 Bili Total 1.0 mg/dL 12/04 Unknown COMPREHENSIVE METABOLIC 84126 ALK PHOS 78 U/L 2019 Unknown COMPREHENSIVE METABOLIC 19440 SODIUM 145 mmol/L 12/04 Unknown COMPREHENSIVE METABOLIC 82148 CREATININE 0.91 mg/dL 11/22 Unknown COMPREHENSIVE METABOLIC 47170 CALCIUM 9.3 mg/dL 2019 Unknown COMPREHENSIVE METABOLIC 18945 POTASSIUM 3.6 mmol/L 12/04 Unknown COMPREHENSIVE METABOLIC 76826 Total Protein 7.0 g/dL Unknown COMPREHENSIVE METABOLIC 63001 Glucose 96 mg/dL 2019 Unknown COMPREHENSIVE METABOLIC 43114 Bicarbonate 28 mmol/L 11/22 Unknown COMPREHENSIVE METABOLIC 03751 AGAP 13 mmol/L 2019 Unknown COMPREHENSIVE METABOLIC 93866 AST 15 U/L 2019 Unknown COMPREHENSIVE METABOLIC 71731 ALT 11 U/L 2019 Unknown COMPREHENSIVE METABOLIC 73741 BUN 14 mg/dL 2019 Unknown COMPREHENSIVE METABOLIC 60004 ALBUMIN 4.3 g/dL 2019 Unknown COMPREHENSIVE METABOLIC 35399 CHLORIDE 106 mmol/L 11/05 Unknown COMPREHENSIVE METABOLIC 02253 Bili Total 0.7 mg/dL 11/05 Unknown COMPREHENSIVE METABOLIC 89787 ALK PHOS 80 U/L 2019 Unknown COMPREHENSIVE METABOLIC 33013 SODIUM 145 mmol/L 11/05 Unknown COMPREHENSIVE METABOLIC 33135 CREATININE 0.97 mg/dL 10/25 Unknown COMPREHENSIVE METABOLIC 60454 CALCIUM 9.5 mg/dL 2019 Unknown COMPREHENSIVE METABOLIC 25229 POTASSIUM 3.9 mmol/L 11/05 Unknown COMPREHENSIVE METABOLIC 22275 Total Protein 7.0 g/dL Unknown COMPREHENSIVE METABOLIC 85826 Glucose 103 mg/dL 2019 Unknown COMPREHENSIVE METABOLIC 62743 Bicarbonate 29 mmol/L 10/25 Unknown COMPREHENSIVE METABOLIC 51801 AGAP 10 mmol/L 2019 Unknown GFR CALC 8295360 GFR Afr Amr >60 mL/min 11/05/2019 Unknow n GFR CALC 4764830 GFR Non Afr Amr 55 mL/min 11/05/2019 Unk nown FREE T4 15970 T4 Free 1.34 ng/dL 10/21/2019 Unknown COMPLETE BLOOD COUNT 5253519 WBC 7.2 10e9/L 10/21/19 20 Unknown COMPLETE BLOOD COUNT [id number] RBC 4.17 10e12/L 2019 Unknown COMPLETE BLOOD COUNT 8269419 HEMOGLOBIN 12.1 g/dL 10/21/19 20 Unknown COMPLETE BLOOD COUNT [id number] HEMATOCRIT 39.0 % 01/28/20 20 Unknown COMPLETE BLOOD COUNT 9720584 MCV 93.5 fL 0 Unknown COMPLETE BLOOD COUNT 6127274 MCH 29.0 pg 0 Unknown COMPLETE BLOOD COUNT 6830218 MCHC 31.0 g/dL 0 Unknown COMPLETE BLOOD COUNT 6606243 PLATELET COUNT 239 10e9/L Unknown COMPLETE BLOOD COUNT 3840772 Mean Plt Volume 11.7 fL Unknown COMPLETE BLOOD COUNT 6951451 Neut Auto 63.7 % 0 Unknown COMPLETE BLOOD COUNT 5200469 Lymph Auto 21.0 % 10/21/19 20 Unknown COMPLETE BLOOD COUNT 9254898 [place] Auto 11.1 % 0 Unknown COMPLETE BLOOD COUNT 0905743 RDW 13.6 % 0 Unknown COMPLETE BLOOD COUNT 2695903 Eos Auto 3.6 % 0 Unknown COMPLETE BLOOD COUNT 5664016 Baso Auto 0.6 % 0 Unknown COMPLETE BLOOD COUNT 8757405 Neutrophil Abs 4.59 10e9/L Unknown COMPLETE BLOOD COUNT 9559705 Lymphocyte Abs 1.51 10e9/L Unknown COMPLETE BLOOD COUNT 2199519 Monocyte Abs 0.80 10e9/L 09/25 Unknown COMPLETE BLOOD COUNT 1311062 Eosinophil Abs 0.26 10e9/L Unknown COMPLETE BLOOD COUNT 8839137 RDW-SD 45.1 fL 0 Unknown COMPLETE BLOOD COUNT 3837004 Basophil Abs 0.04 10e9/L 09/25 Unknown GFR CALC 8397882 GFR Afr Amr 50 mL/min 10/21/2019 Unknown GFR CALC 9314836 GFR Non Afr Amr 42 mL/min 10/21/2019 Unk nown COMPREHENSIVE METABOLIC 58079 AST 16 U/L 2019 Unknown COMPREHENSIVE METABOLIC 79451 ALT 10 U/L 2019 Unknown COMPREHENSIVE METABOLIC 63408 BUN 20 mg/dL 2019 Unknown COMPREHENSIVE METABOLIC 70570 ALBUMIN 4.4 g/dL 2019 Unknown COMPREHENSIVE METABOLIC 14056 CHLORIDE 102 mmol/L 10/21 Unknown COMPREHENSIVE METABOLIC 00675 Bili Total 0.8 mg/dL 10/21 Unknown COMPREHENSIVE METABOLIC 07631 ALK PHOS 85 U/L 2019 Unknown COMPREHENSIVE METABOLIC 15085 SODIUM 144 mmol/L 10/21 Unknown COMPREHENSIVE METABOLIC 72179 CREATININE 1.24 mg/dL 09/25 Unknown COMPREHENSIVE METABOLIC 34154 CALCIUM 9.8 mg/dL 2019 Unknown COMPREHENSIVE METABOLIC 92452 POTASSIUM 4.2 mmol/L 10/21 Unknown COMPREHENSIVE METABOLIC 68011 Total Protein 7.3 g/dL Unknown COMPREHENSIVE METABOLIC 51593 Glucose 98 mg/dL 2019 Unknown COMPREHENSIVE METABOLIC 52920 Bicarbonate 31 mmol/L 09/25 Unknown COMPREHENSIVE METABOLIC 03883 AGAP 11 mmol/L 2019 Unknown THYROID STIMULATING HORMONE 99239 TSH 2.693 uIU/mL 10/21/2019 Unknown LIPID GROUP 91021 Cholesterol 142 mg/dL 10/21/2019 Unkno wn LIPID GROUP 58800 Triglyceride 120 mg/dL 10/21/2019 Unkn own LIPID GROUP 03548 HDL CHOLESTEROL 54 mg/dL 10/21/2019 U nknown LIPID GROUP 92441 Chol/HDL Ratio 2.63 ratio 10/21/2019 U nknown LIPID GROUP 81636 NON-HDL Chol 88 mg/dL 10/21/2019 Unkn own LIPID GROUP 66803 LDL Cholesterol 64 mg/dL 10/21/2019 U nknown GFR CALC [id number] GFR Afr Amr >60 mL/min 04/04/2019 Unknow n GFR CALC 1246053 GFR Non Afr Amr >60 mL/min 04/04/2019 Un known COMPLETE BLOOD COUNT 6805508 WBC 5.9 10e9/L 04/04/20 19 Unknown COMPLETE BLOOD COUNT [id number] RBC 4.29 10e12/L 2018 Unknown COMPLETE BLOOD COUNT [id number] HEMOGLOBIN 12.3 g/dL 04/04/20 19 Unknown COMPLETE BLOOD COUNT [id number] HEMATOCRIT 39.2 % 04/04/20 19 Unknown COMPLETE BLOOD COUNT [id number] MCV 91.4 fL 9 Unknown COMPLETE BLOOD COUNT 5842963 MCH 28.7 pg 9 Unknown COMPLETE BLOOD COUNT 1060688 MCHC 31.4 g/dL 9 Unknown COMPLETE BLOOD COUNT 2221289 PLATELET COUNT 225 10e9/L 08/2019 Unknown COMPLETE BLOOD COUNT [id number] Mean Plt Volume 11.0 fL 08/2019 Unknown COMPLETE BLOOD COUNT [id number] Neut Auto 57.2 % 9 Unknown COMPLETE BLOOD COUNT [id number] Lymph Auto 27.3 % 04/04/20 19 Unknown COMPLETE BLOOD COUNT [id number] [place] Auto 11.2 % 9 Unknown COMPLETE BLOOD COUNT 4301786 RDW 14.3 % 9 Unknown COMPLETE BLOOD COUNT 3328220 Eos Auto 3.4 % 9 Unknown COMPLETE BLOOD COUNT 4447575 Baso Auto 0.9 % 9 Unknown COMPLETE BLOOD COUNT 7272474 Neutrophil Abs 3.37 10e9/L Unknown COMPLETE BLOOD COUNT 6901000 Lymphocyte Abs 1.61 10e9/L Unknown COMPLETE BLOOD COUNT [id number] Monocyte Abs 0.66 10e9/L 03/24 Unknown COMPLETE BLOOD COUNT 3391701 Eosinophil Abs 0.20 10e9/L Unknown COMPLETE BLOOD COUNT [id number] Basophil Abs 0.05 10e9/L 03/24 Unknown COMPLETE BLOOD COUNT [id number] RDW-SD 46.6 fL 9 Unknown THYROID STIMULATING HORMONE 04326 TSH 2.068 uIU/mL 04/04/2019 Unknown COMPREHENSIVE METABOLIC 44564 AST 17 U/L 2018 Unknown COMPREHENSIVE METABOLIC 56657 ALT 12 U/L 2018 Unknown COMPREHENSIVE METABOLIC 07402 BUN 17 mg/dL 2018 Unknown COMPREHENSIVE METABOLIC 76975 ALBUMIN 4.3 g/dL 2018 Unknown COMPREHENSIVE METABOLIC 88931 CHLORIDE 107 mmol/L 04/04 Unknown COMPREHENSIVE METABOLIC 54409 Bili Total 1.1 mg/dL 04/04 Unknown COMPREHENSIVE METABOLIC 85131 ALK PHOS 74 U/L 2018 Unknown COMPREHENSIVE METABOLIC 11546 SODIUM 144 mmol/L 04/04 Unknown COMPREHENSIVE METABOLIC 42298 CREATININE 0.70 mg/dL 03/24 Unknown COMPREHENSIVE METABOLIC 54919 CALCIUM 9.5 mg/dL 2018 Unknown COMPREHENSIVE METABOLIC 41210 POTASSIUM 4.1 mmol/L 04/04 Unknown COMPREHENSIVE METABOLIC 02334 Total Protein 6.8 g/dL Unknown COMPREHENSIVE METABOLIC 82883 Glucose 95 mg/dL 2018 Unknown COMPREHENSIVE METABOLIC 99589 Bicarbonate 29 mmol/L 03/24 Unknown COMPREHENSIVE METABOLIC 27955 AGAP 8 mmol/L 2018 Unknown FREE T4 21348 T4 Free 1.09 ng/dL 04/04/2019 Unknown LIPID GROUP 33160 Cholesterol 149 mg/dL 04/04/2019 Unkno wn LIPID GROUP 87115 Triglyceride 70 mg/dL 04/04/2019 Unkn own LIPID GROUP 64741 HDL CHOLESTEROL 62 mg/dL 04/04/2019 U nknown LIPID GROUP 87616 Chol/HDL Ratio 2.40 ratio 04/04/2019 U nknown LIPID GROUP 89298 NON-HDL Chol 87 mg/dL 04/04/2019 Unkn own LIPID GROUP 61762 LDL Cholesterol 73 mg/dL 04/04/2019 U nknown THYROID STIMULATING HORMONE 42571 TSH 3.698 uIU/mL 10/08/2018 Unknown FREE T4 38469 T4 Free 1.24 ng/dL 10/08/2018 Unknown GFR CALC 2298930 GFR Non Afr Amr >60 mL/min 10/07/2018 Un known GFR CALC 0874724 GFR Afr Amr >60 mL/min 10/07/2018 Unknow n COMPLETE BLOOD COUNT 8628010 WBC 6.3 10e9/L 10/07/19 19 Unknown COMPLETE BLOOD COUNT [id number] RBC 4.22 10e12/L 2018 Unknown COMPLETE BLOOD COUNT [id number] HEMOGLOBIN 12.2 g/dL 10/07/19 19 Unknown COMPLETE BLOOD COUNT [id number] HEMATOCRIT 39.4 % 10/07/19 19 Unknown COMPLETE BLOOD COUNT 1156545 MCV 93.4 fL 9 Unknown COMPLETE BLOOD COUNT 9766921 MCH 28.9 pg 9 Unknown COMPLETE BLOOD COUNT 9725570 MCHC 31.0 g/dL 9 Unknown COMPLETE BLOOD COUNT 3242991 PLATELET COUNT 231 10e9/L Unknown COMPLETE BLOOD COUNT 5431019 Mean Plt Volume 11.2 fL Unknown COMPLETE BLOOD COUNT 0774463 Neut Auto 55.7 % 9 Unknown COMPLETE BLOOD COUNT 4894781 Lymph Auto 30.3 % 10/07/19 19 Unknown COMPLETE BLOOD COUNT 6045114 [place] Auto 9.6 % 9 Unknown COMPLETE BLOOD COUNT 4421703 RDW 14.0 % 9 Unknown COMPLETE BLOOD COUNT 6399136 Eos Auto 3.5 % 9 Unknown COMPLETE BLOOD COUNT 4824711 Baso Auto 0.9 % 9 Unknown COMPLETE BLOOD COUNT 7429555 Neutrophil Abs 3.51 10e9/L Unknown COMPLETE BLOOD COUNT 5030368 Lymphocyte Abs 1.91 10e9/L Unknown COMPLETE BLOOD COUNT 2174889 Monocyte Abs 0.60 10e9/L 09/24 Unknown COMPLETE BLOOD COUNT [id number] Eosinophil Abs 0.22 10e9/L Unknown COMPLETE BLOOD COUNT 6517828 RDW-SD 46.1 fL 9 Unknown COMPLETE BLOOD COUNT [id number] Basophil Abs 0.06 10e9/L 09/24 Unknown COMPREHENSIVE METABOLIC 88272 AST 14 U/L 2018 Unknown COMPREHENSIVE METABOLIC 80680 ALT 10 U/L 2018 Unknown COMPREHENSIVE METABOLIC 97481 BUN 21 mg/dL 2018 Unknown COMPREHENSIVE METABOLIC 87763 ALBUMIN 4.4 g/dL 2018 Unknown COMPREHENSIVE METABOLIC 17975 CHLORIDE 105 mmol/L 10/07 Unknown COMPREHENSIVE METABOLIC 79844 Bili Total 0.7 mg/dL 10/07 Unknown COMPREHENSIVE METABOLIC 35947 ALK PHOS 80 U/L 2018 Unknown COMPREHENSIVE METABOLIC 31464 SODIUM 143 mmol/L 10/07 Unknown COMPREHENSIVE METABOLIC 60551 CREATININE 0.67 mg/dL 09/24 Unknown COMPREHENSIVE METABOLIC 51429 CALCIUM 9.3 mg/dL 2018 Unknown COMPREHENSIVE METABOLIC 78610 POTASSIUM 3.8 mmol/L 10/07 Unknown COMPREHENSIVE METABOLIC 43112 Total Protein 7.0 g/dL Unknown COMPREHENSIVE METABOLIC 72637 Glucose 98 mg/dL 2018 Unknown COMPREHENSIVE METABOLIC 79266 Bicarbonate 32 mmol/L 09/24 Unknown COMPREHENSIVE METABOLIC 83712 AGAP 6 mmol/L 2018 Unknown LIPID GROUP 15678 Cholesterol 160 mg/dL 10/07/2018 Unkno wn LIPID GROUP 52716 Triglyceride 101 mg/dL 10/07/2018 Unkn own LIPID GROUP 29270 HDL CHOLESTEROL 63 mg/dL 10/07/2018 U nknown LIPID GROUP 82578 Chol/HDL Ratio 2.54 ratio 10/07/2018 U nknown LIPID GROUP 87718 NON-HDL Chol 97 mg/dL 10/07/2018 Unkn own LIPID GROUP 23305 LDL Cholesterol 77 mg/dL 10/07/2018 U nknown MEAN GLUC 3730918 Calc Mean Gluc 114 mg/dL 10/07/2018 Unkn own GLYCOSYLATED HEMOGLOBIN TEST 29994 Hgb A1c 52072-1 5.6 % 0 10/07/2018 Unknown FREE T4 38943 T4 Free 1.21 ng/dL 02/14/2018 Unknown THYROID STIMULATING HORMONE 40920 TSH 2.977 uIU/mL 02/14/2018 Unknown COMPLETE BLOOD COUNT [id number] WBC 5.6 10e9/L 02/14/20 18 Unknown COMPLETE BLOOD COUNT [id number] RBC 4.23 10e12/L 2017 Unknown COMPLETE BLOOD COUNT 2065522 HEMOGLOBIN 12.4 g/dL 02/14/20 18 Unknown COMPLETE BLOOD COUNT 1637229 HEMATOCRIT 39.1 % 02/14/20 18 Unknown COMPLETE BLOOD COUNT 6250491 MCV 92.4 fL 8 Unknown COMPLETE BLOOD COUNT 9836967 MCH 29.3 pg 8 Unknown COMPLETE BLOOD COUNT 3073347 MCHC 31.7 g/dL 8 Unknown COMPLETE BLOOD COUNT 2913762 PLATELET COUNT 268 10e9/L Unknown COMPLETE BLOOD COUNT 0677790 Mean Plt Volume 11.0 fL Unknown COMPLETE BLOOD COUNT 7747550 Neut Auto 52.1 % 8 Unknown COMPLETE BLOOD COUNT 2156023 Lymph Auto 32.0 % 02/14/20 18 Unknown COMPLETE BLOOD COUNT 9127279 [place] Auto 11.8 % 8 Unknown COMPLETE BLOOD COUNT 5607203 RDW 14.6 % 8 Unknown COMPLETE BLOOD COUNT 9688902 Eos Auto 3.2 % 8 Unknown COMPLETE BLOOD COUNT 8833803 Baso Auto 0.9 % 8 Unknown COMPLETE BLOOD COUNT 6692384 Neutrophil Abs 2.92 10e9/L Unknown COMPLETE BLOOD COUNT 4443115 Lymphocyte Abs 1.79 10e9/L Unknown COMPLETE BLOOD COUNT 6076160 Monocyte Abs 0.66 10e9/L 01/23 Unknown COMPLETE BLOOD COUNT 2565296 Eosinophil Abs 0.18 10e9/L Unknown COMPLETE BLOOD COUNT 1187609 RDW-SD 48.2 fL 8 Unknown COMPLETE BLOOD COUNT 0873851 Basophil Abs 0.05 10e9/L 01/23 Unknown GFR CALC 0474713 GFR Afr Amr >60 mL/min 02/13/2018 Unknow n GFR CALC 4436368 GFR Non Afr Amr >60 mL/min 02/13/2018 Un known COMPREHENSIVE METABOLIC 06462 AST 18 U/L 2017 Unknown COMPREHENSIVE METABOLIC 56008 ALT 13 U/L 2017 Unknown COMPREHENSIVE METABOLIC 65626 BUN 14 mg/dL 2017 Unknown COMPREHENSIVE METABOLIC 91701 ALBUMIN 4.3 g/dL 2017 Unknown COMPREHENSIVE METABOLIC 07479 CHLORIDE 108 mmol/L 02/13 Unknown COMPREHENSIVE METABOLIC 12381 Bili Total 0.8 mg/dL 02/13 Unknown COMPREHENSIVE METABOLIC 50306 ALK PHOS 82 U/L 2017 Unknown COMPREHENSIVE METABOLIC 55229 SODIUM 144 mmol/L 02/13 Unknown COMPREHENSIVE METABOLIC 58364 CREATININE 0.67 mg/dL 01/23 Unknown COMPREHENSIVE METABOLIC 87830 CALCIUM 9.4 mg/dL 2017 Unknown COMPREHENSIVE METABOLIC 01256 POTASSIUM 4.1 mmol/L 02/13 Unknown COMPREHENSIVE METABOLIC 27294 Total Protein 6.9 g/dL Unknown COMPREHENSIVE METABOLIC 66580 Glucose 103 mg/dL 2017 Unknown COMPREHENSIVE METABOLIC 07592 Bicarbonate 27 mmol/L 01/23 Unknown COMPREHENSIVE METABOLIC 52660 AGAP 9 mmol/L 2017 Unknown LIPID GROUP 93052 Cholesterol 169 mg/dL 10/15/2017 Unkno wn LIPID GROUP 94355 Triglyceride 99 mg/dL 10/15/2017 Unkn own LIPID GROUP 40096 HDL CHOLESTEROL 69 10/15/2017 U nknown LIPID GROUP 37280 Chol/HDL Ratio 2.45 ratio 10/15/2017 U nknown LIPID GROUP 08483 NON-HDL Chol 100 mg/dL 10/15/2017 Unkn own LIPID GROUP 77008 LDL Cholesterol 80 mg/dL 10/15/2017 U nknown COMPREHENSIVE METABOLIC 14325 AST 17 U/L 2017 Unknown COMPREHENSIVE METABOLIC 47913 ALT 13 U/L 2017 Unknown COMPREHENSIVE METABOLIC 50915 BUN 22 mg/dL 2017 Unknown COMPREHENSIVE METABOLIC 60813 ALBUMIN 4.5 g/dL 2017 Unknown COMPREHENSIVE METABOLIC 15209 CHLORIDE 99 mmol/L 2017 Unknown COMPREHENSIVE METABOLIC 10065 Bili Total 0.8 mg/dL 10/15 Unknown COMPREHENSIVE METABOLIC 02670 ALK PHOS 78 U/L 2017 Unknown COMPREHENSIVE METABOLIC 93517 SODIUM 150 mmol/L 10/15 Unknown COMPREHENSIVE METABOLIC 01889 CREATININE 0.73 mg/dL 09/25 Unknown COMPREHENSIVE METABOLIC 82267 CALCIUM 9.5 mg/dL 2017 Unknown COMPREHENSIVE METABOLIC 06022 POTASSIUM 4.2 mmol/L 10/15 Unknown COMPREHENSIVE METABOLIC 60219 Total Protein 7.2 g/dL Unknown COMPREHENSIVE METABOLIC 55037 Glucose 96 mg/dL 2017 Unknown COMPREHENSIVE METABOLIC 74663 Bicarbonate 29 mmol/L 09/25 Unknown COMPREHENSIVE METABOLIC 39780 AGAP 22 mmol/L 2017 Unknown GFR CALC 1398267 GFR Afr Amr >60 mL/min 10/15/2017 Unknow n GFR CALC 9563248 GFR Non Afr Amr >60 mL/min 10/15/2017 Un known THYROID STIMULATING HORMONE 87411 TSH 4.502 uIU/mL 10/15/2017 Unknown FREE T4 00320 T4 Free 1.44 ng/dL 10/15/2017 Unknown VITAMIN B 12 70264 VITAMIN B12 698 pg/mL 10/15/2017 Unkn own COMPLETE BLOOD COUNT 6328721 WBC 6.3 10e9/L 10/15/19 18 Unknown COMPLETE BLOOD COUNT 5370560 RBC 4.37 10e12/L 2017 Unknown COMPLETE BLOOD COUNT 3631385 HEMOGLOBIN 12.6 g/dL 10/15/19 18 Unknown COMPLETE BLOOD COUNT 9018144 HEMATOCRIT 40.3 % 10/15/19 18 Unknown COMPLETE BLOOD COUNT 7261860 MCV 92.2 fL 8 Unknown COMPLETE BLOOD COUNT 0581955 MCH 28.8 pg 8 Unknown COMPLETE BLOOD COUNT 0382805 MCHC 31.3 g/dL 8 Unknown COMPLETE BLOOD COUNT 7895801 PLATELET COUNT 256 10e9/L Unknown COMPLETE BLOOD COUNT 4254823 Mean Plt Volume 11.1 fL Unknown COMPLETE BLOOD COUNT 7420502 Neut Auto 54.8 % 8 Unknown COMPLETE BLOOD COUNT 2623426 Lymph Auto 30.5 % 10/15/19 18 Unknown COMPLETE BLOOD COUNT 1271985 [place] Auto 10.4 % 8 Unknown COMPLETE BLOOD COUNT 5561929 RDW 14.0 % 8 Unknown COMPLETE BLOOD COUNT 9866290 Eos Auto 3.8 % 8 Unknown COMPLETE BLOOD COUNT 6964499 Baso Auto 0.5 % 8 Unknown COMPLETE BLOOD COUNT 8657710 Neutrophil Abs 3.45 10e9/L Unknown COMPLETE BLOOD COUNT 1038939 Lymphocyte Abs 1.92 10e9/L Unknown COMPLETE BLOOD COUNT 0309856 Monocyte Abs 0.66 10e9/L 09/25 Unknown COMPLETE BLOOD COUNT 5502638 Eosinophil Abs 0.24 10e9/L Unknown COMPLETE BLOOD COUNT 1125082 RDW-SD 46.1 fL 8 Unknown COMPLETE BLOOD COUNT 5664271 Basophil Abs 0.03 10e9/L 09/25 Unknown VITAMIN B 12 61488 VITAMIN B12 823 pg/mL 03/30/2017 Unkn own VITAMIN B 12 28155 VITAMIN B12 321 pg/mL 12/18/2016 Unkn own COMPLETE BLOOD COUNT 5543213 WBC 6.8 10e9/L 12/12/19 17 Unknown COMPLETE BLOOD COUNT 6524747 RBC 4.37 10e12/L 2016 Unknown COMPLETE BLOOD COUNT 1574055 HEMOGLOBIN 12.5 g/dL 12/12/19 17 Unknown COMPLETE BLOOD COUNT 3512521 HEMATOCRIT 39.3 % 12/12/19 17 Unknown COMPLETE BLOOD COUNT 2239160 MCV 89.9 fL 7 Unknown COMPLETE BLOOD COUNT 2353887 MCH 28.6 pg 7 Unknown COMPLETE BLOOD COUNT 3732505 MCHC 31.8 g/dL 7 Unknown COMPLETE BLOOD COUNT 9584343 PLATELET COUNT 248 10e9/L Unknown COMPLETE BLOOD COUNT 3982083 Mean Plt Volume 10.9 fL Unknown COMPLETE BLOOD COUNT 3753500 Neut Auto 52.0 % 7 Unknown COMPLETE BLOOD COUNT 9750529 Lymph Auto 33.4 % 12/12/19 17 Unknown COMPLETE BLOOD COUNT 1847484 [place] Auto 10.1 % 7 Unknown COMPLETE BLOOD COUNT 0258783 RDW 14.6 % 7 Unknown COMPLETE BLOOD COUNT 0615593 Eos Auto 3.8 % 7 Unknown COMPLETE BLOOD COUNT 6679005 Baso Auto 0.7 % 7 Unknown COMPLETE BLOOD COUNT 1167642 Neutrophil Abs 3.54 10e9/L Unknown COMPLETE BLOOD COUNT 2423954 Lymphocyte Abs 2.27 10e9/L Unknown COMPLETE BLOOD COUNT 6093556 Monocyte Abs 0.69 10e9/L 11/23 Unknown COMPLETE BLOOD COUNT 5602563 Eosinophil Abs 0.26 10e9/L Unknown COMPLETE BLOOD COUNT 0804632 RDW-SD 47.4 fL 7 Unknown COMPLETE BLOOD COUNT 5006707 Basophil Abs 0.05 10e9/L 11/23 Unknown COMPREHENSIVE METABOLIC 48656 AST 16 U/L 2016 Unknown COMPREHENSIVE METABOLIC 68263 ALT 12 U/L 2016 Unknown COMPREHENSIVE METABOLIC 59251 BUN 22 mg/dL 2016 Unknown COMPREHENSIVE METABOLIC 77503 ALBUMIN 4.2 g/dL 2016 Unknown COMPREHENSIVE METABOLIC 41085 CHLORIDE 104 mmol/L 12/11 Unknown COMPREHENSIVE METABOLIC 01737 Bili Total 0.7 mg/dL 12/11 Unknown COMPREHENSIVE METABOLIC 23163 ALK PHOS 78 U/L 2016 Unknown COMPREHENSIVE METABOLIC 16218 SODIUM 143 mmol/L 12/11 Unknown COMPREHENSIVE METABOLIC 28652 CREATININE 0.69 mg/dL 11/23 Unknown COMPREHENSIVE METABOLIC 25435 CALCIUM 9.5 mg/dL 2016 Unknown COMPREHENSIVE METABOLIC 45686 POTASSIUM 3.9 mmol/L 12/11 Unknown COMPREHENSIVE METABOLIC 86583 Total Protein 7.1 g/dL Unknown COMPREHENSIVE METABOLIC 99137 Glucose 103 mg/dL 2016 Unknown COMPREHENSIVE METABOLIC 62577 Bicarbonate 30 mmol/L 11/23 Unknown COMPREHENSIVE METABOLIC 29028 AGAP 9 mmol/L 2016 Unknown GFR CALC 3333948 GFR Non Afr Amr >60 mL/min 12/11/2016 Un known GFR CALC 5265423 GFR Afr Amr >60 mL/min 12/11/2016 Unknow n MEAN GLUC 7802320 Calc Mean Gluc 120 mg/dL 12/11/2016 Unkn own LIPID GROUP 10483 Cholesterol 162 mg/dL 12/11/2016 Unkno wn LIPID GROUP 16884 Triglyceride 80 mg/dL 12/11/2016 Unkn own LIPID GROUP 55299 HDL CHOLESTEROL 65 mg/dL 12/11/2016 U nknown LIPID GROUP 63506 Chol/HDL Ratio 2.49 ratio 12/11/2016 U nknown LIPID GROUP 77726 NON-HDL Chol 97 mg/dL 12/11/2016 Unkn own LIPID GROUP 76043 LDL Cholesterol 81 mg/dL 12/11/2016 U nknown FREE T4 14210 T4 Free 1.46 ng/dL 12/11/2016 Unknown THYROID STIMULATING HORMONE 15042 TSH 2.578 uIU/mL 12/11/2016 Unknown GLYCOSYLATED HEMOGLOBIN TEST 68334 Hgb A1c 30789-2 5.8 % 0 12/11/2016 Unknown FREE T4 49193 FREE T4 1.68 NG/DL 05/27/2015 Unknown LIPID GROUP 42523 HDL TEST 67 MG/DL 05/27/2015 Unknown LIPID GROUP 36393 TRIG 92 MG/DL 05/27/2015 Unknown LIPID GROUP 14231 TEST LDL 84 MG/DL 05/27/2015 Unknown LIPID GROUP 37685 CHOL 169 MG/DL 05/27/2015 Unknown LIPID GROUP 67628 RCHOL/HDL 2.52 RATIO 05/27/2015 Unknow n LIPID GROUP 86573 NON-HDL CH 102 MG/DL 05/27/2015 Unknow n GLYCOSYLATED HEMOGLOBIN TEST 32263 A1C HPLC 39220-1 5.9 % 0 05/27/2015 Unknown VITAMIN B 12 64895 VIT B 12 308 PG/ML 05/27/2015 Unknow n GFR CALC 3896491 GFR AA >60 ML/MIN 05/27/2015 Unknown GFR CALC 1004517 GFR NON-AA >60 ML/MIN 05/27/2015 Unknown COMPREHENSIVE METABOLIC 37187 AST 20 U/L 2014 Unknown COMPREHENSIVE METABOLIC 21220 ALT 15 IU/L 2014 Unknown COMPREHENSIVE METABOLIC 51903 BUN 17 MG/DL 2014 Unknown COMPREHENSIVE METABOLIC 36672 ALBUMIN 4.3 GM/DL 2014 Unknown COMPREHENSIVE METABOLIC 51878 CHLORIDE 107 MMOL/L 05/27 Unknown COMPREHENSIVE METABOLIC 30916 BILI TOT 0.9 MG/DL 2014 Unknown COMPREHENSIVE METABOLIC 19615 ALK PHOS 85 U/L 2014 Unknown COMPREHENSIVE METABOLIC 38252 SODIUM 144 MMOL/L 05/27 Unknown COMPREHENSIVE METABOLIC 24347 CREATININE 0.76 MG/DL 11/2014 Unknown COMPREHENSIVE METABOLIC 15756 CALCIUM 9.5 MG/DL 2014 Unknown COMPREHENSIVE METABOLIC 58520 POTASSIUM 4.2 MMOL/L 05/27 Unknown COMPREHENSIVE METABOLIC 38491 PROT TOT 7.1 GM/DL 2014 Unknown COMPREHENSIVE METABOLIC 68100 Glucose 95 MG/DL 2014 Unknown COMPREHENSIVE METABOLIC 63667 BICARB 30 MMOL/L 2014 Unknown COMPREHENSIVE METABOLIC 97531 ANION GAP 7 MEQ/L 2014 Unknown COMPLETE BLOOD COUNT 1204742 WBC 6.5 10e9/L 05/27/20 15 Unknown COMPLETE BLOOD COUNT [id number] RBC 4.35 10e12/L 2014 Unknown COMPLETE BLOOD COUNT 1407664 HGB 12.4 g/dL 5 Unknown COMPLETE BLOOD COUNT 2230338 HCT DET 39.3 % 5 Unknown COMPLETE BLOOD COUNT 6293735 MCV 90.3 fL 5 Unknown COMPLETE BLOOD COUNT 2893548 MCH 28.5 pg 5 Unknown COMPLETE BLOOD COUNT 9652627 MCHC 31.6 g/dL 5 Unknown COMPLETE BLOOD COUNT 8515363 PLT 245 10e9/L 05/27/20 15 Unknown COMPLETE BLOOD COUNT 8684016 MPV 11.1 fL 5 Unknown COMPLETE BLOOD COUNT 6885184 CRISTI % 53.9 % 5 Unknown COMPLETE BLOOD COUNT 9033567 LY % 30.8 % 5 Unknown COMPLETE BLOOD COUNT 1853542 MON % 11.2 % 5 Unknown COMPLETE BLOOD COUNT 8705673 EOS % 3.2 % 5 Unknown COMPLETE BLOOD COUNT 4730726 BASO % 0.9 % 5 Unknown COMPLETE BLOOD COUNT 0427952 RDW 14.5 % 5 Unknown COMPLETE BLOOD COUNT 2375491 ABS CRISTI 3.50 10e9/L 015 Unknown COMPLETE BLOOD COUNT 1222713 ABS LYMPH 2.00 10e9/L 015 Unknown COMPLETE BLOOD COUNT 4662893 ABS MONO 0.73 10e9/L 015 Unknown COMPLETE BLOOD COUNT 9515348 ABS EOS 0.21 10e9/L 015 Unknown COMPLETE BLOOD COUNT 0064926 ABS BASO 0.06 10e9/L 015 Unknown COMPLETE BLOOD COUNT 5666011 RDW-SD 46.3 fL 5 Unknown THYROID STIMULATING HORMONE 89167 TSH 2.909 uIU/ML 05/27/2015 Unknown IRON 46110 IRON TEST 63 UG/DL 12/15/2014 Unknown COMPLETE BLOOD COUNT 0799272 WBC 6.3 10e9/L 12/16/19 15 Unknown COMPLETE BLOOD COUNT 0747336 RBC 4.37 10e12/L 2014 Unknown COMPLETE BLOOD COUNT 9516898 HGB 12.6 g/dL 5 Unknown COMPLETE BLOOD COUNT 8945150 HCT DET 39.2 % 5 Unknown COMPLETE BLOOD COUNT 9537861 MCV 89.7 fL 5 Unknown COMPLETE BLOOD COUNT 1502449 MCH 28.8 pg 5 Unknown COMPLETE BLOOD COUNT 3401663 MCHC 32.1 g/dL 5 Unknown COMPLETE BLOOD COUNT 5206199 PLT 252 10e9/L 12/16/19 15 Unknown COMPLETE BLOOD COUNT 8300935 MPV 10.8 fL 5 Unknown COMPLETE BLOOD COUNT 1192379 CRISTI % 60.5 % 5 Unknown COMPLETE BLOOD COUNT 3092932 LY % 24.4 % 5 Unknown COMPLETE BLOOD COUNT 4994611 MON % 11.8 % 5 Unknown COMPLETE BLOOD COUNT 5081824 EOS % 2.7 % 5 Unknown COMPLETE BLOOD COUNT 5351916 BASO % 0.6 % 5 Unknown COMPLETE BLOOD COUNT 7756493 RDW 14.0 % 5 Unknown COMPLETE BLOOD COUNT 0419319 ABS CRISTI 3.81 10e9/L 015 Unknown COMPLETE BLOOD COUNT 4890376 ABS LYMPH 1.54 10e9/L 015 Unknown COMPLETE BLOOD COUNT 3706369 ABS MONO 0.74 10e9/L 015 Unknown COMPLETE BLOOD COUNT 4909707 ABS EOS 0.17 10e9/L 015 Unknown COMPLETE BLOOD COUNT 8337102 ABS BASO 0.04 10e9/L 015 Unknown COMPLETE BLOOD COUNT 6452039 RDW-SD 44.6 fL 5 Unknown GFR CALC 6940272 GFR AA >60 ML/MIN 11/26/2014 Unknown GFR CALC 9825207 GFR NON-AA >60 ML/MIN 11/26/2014 Unknown COMPREHENSIVE METABOLIC 21799 AST 16 U/L 2014 Unknown COMPREHENSIVE METABOLIC 58900 ALT 15 IU/L 2014 Unknown COMPREHENSIVE METABOLIC 74633 BUN 21 MG/DL 2014 Unknown COMPREHENSIVE METABOLIC 19076 ALBUMIN 4.4 GM/DL 2014 Unknown COMPREHENSIVE METABOLIC 27154 CHLORIDE 106 MMOL/L 11/26 Unknown COMPREHENSIVE METABOLIC 39302 BILI TOT 0.9 MG/DL 2014 Unknown COMPREHENSIVE METABOLIC 04554 ALK PHOS 83 U/L 2014 Unknown COMPREHENSIVE METABOLIC 24004 SODIUM 141 MMOL/L 11/26 Unknown COMPREHENSIVE METABOLIC 07839 CREATININE 0.68 MG/DL 01/2015 Unknown COMPREHENSIVE METABOLIC 79810 CALCIUM 9.4 MG/DL 2014 Unknown COMPREHENSIVE METABOLIC 71301 POTASSIUM 3.8 MMOL/L 11/26 Unknown COMPREHENSIVE METABOLIC 98873 PROT TOT 7.2 GM/DL 2014 Unknown COMPREHENSIVE METABOLIC 38614 Glucose 100 MG/DL 2014 Unknown COMPREHENSIVE METABOLIC 09210 BICARB 29 MMOL/L 2014 Unknown COMPREHENSIVE METABOLIC 13379 ANION GAP 6 MEQ/L 2014 Unknown LIPID GROUP 01604 HDL TEST 72 MG/DL 11/26/2014 Unknown LIPID GROUP 94534 TRIG 101 MG/DL 11/26/2014 Unknown LIPID GROUP 58229 TEST LDL 82 MG/DL 11/26/2014 Unknown LIPID GROUP 25382 CHOL 174 MG/DL 11/26/2014 Unknown LIPID GROUP 12777 RCHOL/HDL 2.42 RATIO 11/26/2014 Unknow n LIPID GROUP 20312 NON-HDL CH 102 MG/DL 11/26/2014 Unknow n GFR CALC 7396537 GFR AA >60 ML/MIN 08/14/2014 Unknown GFR CALC 0421641 GFR NON-AA >60 ML/MIN 08/14/2014 Unknown THYROID STIMULATING HORMONE 90288 TSH 2.261 uIU/ML 08/14/2014 Unknown COMPLETE BLOOD COUNT 1710565 WBC 5.8 10e9/L 08/14/20 14 Unknown COMPLETE BLOOD COUNT 8725039 RBC 4.33 10e12/L 2013 Unknown COMPLETE BLOOD COUNT 9391964 HGB 12.5 g/dL 4 Unknown COMPLETE BLOOD COUNT 5696386 HCT DET 39.2 % 4 Unknown COMPLETE BLOOD COUNT 3262147 MCV 90.5 fL 4 Unknown COMPLETE BLOOD COUNT 0744486 MCH 28.9 pg 4 Unknown COMPLETE BLOOD COUNT 1215747 MCHC 31.9 g/dL 4 Unknown COMPLETE BLOOD COUNT 6258013 PLT 260 10e9/L 08/14/20 14 Unknown COMPLETE BLOOD COUNT 1196386 MPV 10.9 fL 4 Unknown COMPLETE BLOOD COUNT 6904100 CRISTI % 52.9 % 4 Unknown COMPLETE BLOOD COUNT 7741474 LY % 31.0 % 4 Unknown COMPLETE BLOOD COUNT 2016556 MON % 11.3 % 4 Unknown COMPLETE BLOOD COUNT 7730973 EOS % 3.6 % 4 Unknown COMPLETE BLOOD COUNT 0881780 BASO % 1.2 % 4 Unknown COMPLETE BLOOD COUNT 4614832 RDW 13.9 % 4 Unknown COMPLETE BLOOD COUNT 9339721 ABS CRISTI 3.07 10e9/L 014 Unknown COMPLETE BLOOD COUNT 9896010 ABS LYMPH 1.80 10e9/L 014 Unknown COMPLETE BLOOD COUNT 1894458 ABS MONO 0.66 10e9/L 014 Unknown COMPLETE BLOOD COUNT 4711888 ABS EOS 0.21 10e9/L 014 Unknown COMPLETE BLOOD COUNT 9086986 ABS BASO 0.07 10e9/L 014 Unknown COMPLETE BLOOD COUNT 0163142 RDW-SD 44.8 fL 4 Unknown COMPREHENSIVE METABOLIC 17899 AST 15 U/L 2013 Unknown COMPREHENSIVE METABOLIC 59415 ALT 13 IU/L 2013 Unknown COMPREHENSIVE METABOLIC 46946 BUN 18 MG/DL 2013 Unknown COMPREHENSIVE METABOLIC 51585 ALBUMIN 4.4 GM/DL 2013 Unknown COMPREHENSIVE METABOLIC 34703 CHLORIDE 105 MMOL/L 08/14 Unknown COMPREHENSIVE METABOLIC 06826 BILI TOT 1.0 MG/DL 2013 Unknown COMPREHENSIVE METABOLIC 84225 ALK PHOS 88 U/L 2013 Unknown COMPREHENSIVE METABOLIC 43659 SODIUM 143 MMOL/L 08/14 Unknown COMPREHENSIVE METABOLIC 40619 CREATININE 0.70 MG/DL 07/26 Unknown COMPREHENSIVE METABOLIC 11581 CALCIUM 9.6 MG/DL 2013 Unknown COMPREHENSIVE METABOLIC 55042 POTASSIUM 3.9 MMOL/L 08/14 Unknown COMPREHENSIVE METABOLIC 98312 PROT TOT 7.0 GM/DL 2013 Unknown COMPREHENSIVE METABOLIC 32012 Glucose 100 MG/DL 2013 Unknown COMPREHENSIVE METABOLIC 33616 BICARB 31 MMOL/L 2013 Unknown COMPREHENSIVE METABOLIC 20854 ANION GAP 7 MEQ/L 2013 Unknown FREE T4 35401 FREE T4 1.59 NG/DL 08/14/2014 Unknown LIPID GROUP 40745 HDL TEST 66 MG/DL 08/14/2014 Unknown LIPID GROUP 40119 TRIG 106 MG/DL 08/14/2014 Unknown LIPID GROUP 87639 TEST LDL 152 MG/DL 08/14/2014 Unknown LIPID GROUP 16201 CHOL 239 MG/DL 08/14/2014 Unknown LIPID GROUP 93119 RCHOL/HDL 3.62 RATIO 08/14/2014 Unknow n LIPID GROUP 28200 NON-HDL CH 173 MG/DL 08/14/2014 Unknow n COMPREHENSIVE METABOLIC 79680 AST 16 U/L 2013 Unknown COMPREHENSIVE METABOLIC 18645 ALT 13 IU/L 2013 Unknown COMPREHENSIVE METABOLIC 87448 BUN 20 MG/DL 2013 Unknown COMPREHENSIVE METABOLIC 90002 ALBUMIN 4.4 GM/DL 2013 Unknown COMPREHENSIVE METABOLIC 69462 CHLORIDE 104 MMOL/L 02/04 Unknown COMPREHENSIVE METABOLIC 81732 BILI TOT 0.8 MG/DL 2013 Unknown COMPREHENSIVE METABOLIC 18611 ALK PHOS 79 U/L 2013 Unknown COMPREHENSIVE METABOLIC 26161 SODIUM 141 MMOL/L 02/04 Unknown COMPREHENSIVE METABOLIC 93639 CREATININE 0.73 MG/DL 01/22 Unknown COMPREHENSIVE METABOLIC 25968 CALCIUM 9.6 MG/DL 2013 Unknown COMPREHENSIVE METABOLIC 22835 POTASSIUM 4.0 MMOL/L 02/04 Unknown COMPREHENSIVE METABOLIC 28587 PROT TOT 7.2 GM/DL 2013 Unknown COMPREHENSIVE METABOLIC 65411 Glucose 96 MG/DL 2013 Unknown COMPREHENSIVE METABOLIC 26379 BICARB 31 MMOL/L 2013 Unknown COMPREHENSIVE METABOLIC 50973 ANION GAP 6 MEQ/L 2013 Unknown GFR CALC 5816318 GFR AA >60 ML/MIN 02/04/2014 Unknown GFR CALC 4854619 GFR NON-AA >60 ML/MIN 02/04/2014 Unknown FREE T4 49184 FREE T4 1.59 NG/DL 02/04/2014 Unknown COMPLETE BLOOD COUNT 9677050 WBC 5.9 10e9/L 02/05/20 14 Unknown COMPLETE BLOOD COUNT 7836194 RBC 4.37 10e12/L 2013 Unknown COMPLETE BLOOD COUNT 6009235 HGB 12.6 g/dL 4 Unknown COMPLETE BLOOD COUNT [id number] HCT DET 39.0 % 4 Unknown COMPLETE BLOOD COUNT [id number] MCV 89.2 fL 4 Unknown COMPLETE BLOOD COUNT [id number] MCH 28.8 pg 4 Unknown COMPLETE BLOOD COUNT [id number] MCHC 32.3 g/dL 4 Unknown COMPLETE BLOOD COUNT [id number] PLT 265 10e9/L 02/05/20 14 Unknown COMPLETE BLOOD COUNT [id number] MPV 10.8 fL 4 Unknown COMPLETE BLOOD COUNT [id number] CRISTI % 55.5 % 4 Unknown COMPLETE BLOOD COUNT [id number] LY % 30.8 % 4 Unknown COMPLETE BLOOD COUNT [id number] MON % 10.0 % 4 Unknown COMPLETE BLOOD COUNT [id number] EOS % 2.7 % 4 Unknown COMPLETE BLOOD COUNT [id number] BASO % 1.0 % 4 Unknown COMPLETE BLOOD COUNT [id number] RDW 14.2 % 4 Unknown COMPLETE BLOOD COUNT [id number] ABS CRISTI 3.27 10e9/L 014 Unknown COMPLETE BLOOD COUNT [id number] ABS LYMPH 1.82 10e9/L 014 Unknown COMPLETE BLOOD COUNT [id number] ABS MONO 0.59 10e9/L 014 Unknown COMPLETE BLOOD COUNT [id number] ABS EOS 0.16 10e9/L 014 Unknown COMPLETE BLOOD COUNT [id number] ABS BASO 0.06 10e9/L 014 Unknown COMPLETE BLOOD COUNT [id number] RDW-SD 45.2 fL 4 Unknown LIPID GROUP 52304 HDL TEST 69 MG/DL 02/04/2014 Unknown LIPID GROUP 56270 TRIG 121 MG/DL 02/04/2014 Unknown LIPID GROUP 91753 TEST LDL 144 MG/DL 02/04/2014 Unknown LIPID GROUP 60936 CHOL 237 MG/DL 02/04/2014 Unknown LIPID GROUP 83375 RCHOL/HDL 3.43 RATIO 02/04/2014 Unknow n THYROID STIMULATING HORMONE 99508 TSH 2.310 uIU/ML 02/04/2014 Unknown THYROID STIMULATING HORMONE 95752 TSH 2.429 uIU/ML 03/18/2012 Unknown COMPREHENSIVE METABOLIC 40060 AST 17 U/L 2011 Unknown COMPREHENSIVE METABOLIC 56611 ALT 15 IU/L 2011 Unknown COMPREHENSIVE METABOLIC 12276 BUN 17 MG/DL 2011 Unknown COMPREHENSIVE METABOLIC 46628 ALBUMIN 4.1 GM/DL 2011 Unknown COMPREHENSIVE METABOLIC 34189 CHLORIDE 108 MMOL/L 03/18 Unknown COMPREHENSIVE METABOLIC 11075 BILI TOT 0.7 MG/DL 2011 Unknown COMPREHENSIVE METABOLIC 26211 ALK PHOS 79 U/L 2011 Unknown COMPREHENSIVE METABOLIC 08777 SODIUM 144 MMOL/L 03/18 Unknown COMPREHENSIVE METABOLIC 19861 CREATININE 0.68 MG/DL 02/23 Unknown COMPREHENSIVE METABOLIC 27062 CALCIUM 9.0 MG/DL 2011 Unknown COMPREHENSIVE METABOLIC 29595 POTASSIUM 3.7 MMOL/L 03/18 Unknown COMPREHENSIVE METABOLIC 96850 PROT TOT 6.6 GM/DL 2011 Unknown COMPREHENSIVE METABOLIC 66713 Glucose 99 MG/DL 2011 Unknown COMPREHENSIVE METABOLIC 74159 BICARB 28 MMOL/L 2011 Unknown COMPREHENSIVE METABOLIC 30254 ANION GAP 8 MEQ/L 2011 Unknown LIPID GROUP 36666 HDL TEST 65 MG/DL 03/18/2012 Unknown LIPID GROUP 43132 TRIG 86 MG/DL 03/18/2012 Unknown LIPID GROUP 32782 TEST LDL 153 MG/DL 03/18/2012 Unknown LIPID GROUP 46251 CHOL 235 MG/DL 03/18/2012 Unknown LIPID GROUP 19309 RCHOL/HDL 3.62 RATIO 03/18/2012 Unknow n GFR CALC [id number] GFR AA >60 ML/MIN 03/18/2012 Unknown GFR CALC 4243748 GFR NON-AA >60 ML/MIN 03/18/2012 Unknown COMPLETE BLOOD COUNT 63286 WBC 5.1 10e9/L 03/18/20 12 Unknown COMPLETE BLOOD COUNT 52830 RBC 4.32 10e12/L 2011 Unknown COMPLETE BLOOD COUNT 41088 HGB 12.4 g/dL 2 Unknown COMPLETE BLOOD COUNT 96542 HCT DET 38.4 % 2 Unknown COMPLETE BLOOD COUNT 15979 MCV 88.9 fL 2 Unknown COMPLETE BLOOD COUNT 86802 MCH 28.7 pg 2 Unknown COMPLETE BLOOD COUNT 78186 MCHC 32.3 g/dL 2 Unknown COMPLETE BLOOD COUNT 99700 PLT 245 10e9/L 03/18/20 12 Unknown COMPLETE BLOOD COUNT 26311 MPV 10.7 fL 2 Unknown COMPLETE BLOOD COUNT 83395 CRISTI % 52.9 % 2 Unknown COMPLETE BLOOD COUNT 13271 LY % 31.5 % 2 Unknown COMPLETE BLOOD COUNT 24151 MON % 12.3 % 2 Unknown COMPLETE BLOOD COUNT 92257 EOS % 2.9 % 2 Unknown COMPLETE BLOOD COUNT 56093 BASO % 0.4 % 2 Unknown COMPLETE BLOOD COUNT 95539 RDW 13.9 % 2 Unknown COMPLETE BLOOD COUNT 79851 ABS CRISTI 2.70 10e9/L 012 Unknown COMPLETE BLOOD COUNT 31994 ABS LYMPH 1.61 10e9/L 012 Unknown COMPLETE BLOOD COUNT 61504 ABS MONO 0.63 10e9/L 012 Unknown COMPLETE BLOOD COUNT 09148 ABS EOS 0.15 10e9/L 012 Unknown COMPLETE BLOOD COUNT 76794 ABS BASO 0.02 10e9/L 012 Unknown COMPLETE BLOOD COUNT 34839 RDW-SD 44.5 fL 2 Unknown FREE T4 85192 FREE T4 1.50 NG/DL 03/18/2012 Unknown LIPID GROUP 70059 HDL TEST 61 MG/DL 07/13/2011 Unknown LIPID GROUP 11724 TRIG 158 MG/DL 07/13/2011 Unknown LIPID GROUP 83670 TEST LDL 131 MG/DL 07/13/2011 Unknown LIPID GROUP 31689 CHOL 224 MG/DL 07/13/2011 Unknown LIPID GROUP 12355 RCHOL/HDL 3.67 RATIO 07/13/2011 Unknow n COMPREHENSIVE METABOLIC 95140 AST 19 U/L 2010 Unknown COMPREHENSIVE METABOLIC 57135 ALT 17 IU/L 2010 Unknown COMPREHENSIVE METABOLIC 13910 BUN 14 MG/DL 2010 Unknown COMPREHENSIVE METABOLIC 59594 ALBUMIN 4.2 GM/DL 2010 Unknown COMPREHENSIVE METABOLIC 05306 CHLORIDE 105 MMOL/L 07/13 Unknown COMPREHENSIVE METABOLIC 25177 BILI TOT 0.9 MG/DL 2010 Unknown COMPREHENSIVE METABOLIC 92761 ALK PHOS 71 U/L 2010 Unknown COMPREHENSIVE METABOLIC 50170 SODIUM 141 MMOL/L 07/13 Unknown COMPREHENSIVE METABOLIC 04852 CREATININE 0.68 MG/DL 06/25 Unknown COMPREHENSIVE METABOLIC 59156 CALCIUM 9.3 MG/DL 2010 Unknown COMPREHENSIVE METABOLIC 35223 POTASSIUM 3.8 MMOL/L 07/13 Unknown COMPREHENSIVE METABOLIC 02838 PROT TOT 6.5 GM/DL 2010 Unknown COMPREHENSIVE METABOLIC 07644 Glucose 94 MG/DL 2010 Unknown COMPREHENSIVE METABOLIC 18585 BICARB 28 MMOL/L 2010 Unknown COMPREHENSIVE METABOLIC 02672 ANION GAP 8 MEQ/L 2010 Unknown COMPLETE BLOOD COUNT 34818 WBC 5.4 10e9/L 07/13/20 11 Unknown COMPLETE BLOOD COUNT 94178 RBC 4.20 10e12/L 2010 Unknown COMPLETE BLOOD COUNT 97335 HGB 12.4 g/dL 1 Unknown COMPLETE BLOOD COUNT 41948 HCT DET 37.6 % 1 Unknown COMPLETE BLOOD COUNT 74929 MCV 89.5 fL 1 Unknown COMPLETE BLOOD COUNT 36816 MCH 29.5 pg 1 Unknown COMPLETE BLOOD COUNT 16357 MCHC 33.0 g/dL 1 Unknown COMPLETE BLOOD COUNT 63288 PLT 273 10e9/L 07/13/20 11 Unknown COMPLETE BLOOD COUNT 87121 MPV 10.7 fL 1 Unknown COMPLETE BLOOD COUNT 52659 CRISTI % 49.9 % 1 Unknown COMPLETE BLOOD COUNT 00015 LY % 35.9 % 1 Unknown COMPLETE BLOOD COUNT 86182 MON % 10.4 % 1 Unknown COMPLETE BLOOD COUNT 82661 EOS % 2.9 % 1 Unknown COMPLETE BLOOD COUNT 94594 BASO % 0.9 % 1 Unknown COMPLETE BLOOD COUNT 75943 RDW 13.8 % 1 Unknown COMPLETE BLOOD COUNT 62836 ABS CRISTI 2.69 10e9/L 011 Unknown COMPLETE BLOOD COUNT 05516 ABS LYMPH 1.94 10e9/L 011 Unknown COMPLETE BLOOD COUNT 26681 ABS MONO 0.56 10e9/L 011 Unknown COMPLETE BLOOD COUNT 56951 ABS EOS 0.16 10e9/L 011 Unknown COMPLETE BLOOD COUNT 14530 ABS BASO 0.05 10e9/L 011 Unknown COMPLETE BLOOD COUNT 48089 RDW-SD 44.4 fL 1 Unknown GFR CALC 7124961 GFR AA >60 ML/MIN 07/13/2011 Unknown GFR CALC 8507992 GFR NON-AA >60 ML/MIN 07/13/2011 Unknown FREE T4 80694 FREE T4 1.36 NG/DL 07/13/2011 Unknown THYROID STIMULATING HORMONE 28854 TSH 4.261 uIU/ML 07/13/2011 Unknown GFR CALC 3884808 GFR AA >60 ML/MIN 03/13/2011 Unknown GFR CALC 3637711 GFR NON-AA >60 ML/MIN 03/13/2011 Unknown LIPID GROUP 46776 HDL TEST 60 MG/DL 03/13/2011 Unknown LIPID GROUP 02470 TRIG 140 MG/DL 03/13/2011 Unknown LIPID GROUP 97527 TEST LDL 122 MG/DL 03/13/2011 Unknown LIPID GROUP 28037 CHOL 210 MG/DL 03/13/2011 Unknown LIPID GROUP 59840 RCHOL/HDL 3.50 RATIO 03/13/2011 Unknow n FREE T4 64122 FREE T4 1.36 NG/DL 03/13/2011 Unknown THYROID STIMULATING HORMONE 19272 TSH 7.688 uIU/ML 03/13/2011 Unknown COMPREHENSIVE METABOLIC 24318 AST 17 U/L 2010 Unknown COMPREHENSIVE METABOLIC 25281 ALT 12 IU/L 2010 Unknown COMPREHENSIVE METABOLIC 15200 BUN 19 MG/DL 2010 Unknown COMPREHENSIVE METABOLIC 77856 ALBUMIN 4.3 GM/DL 2010 Unknown COMPREHENSIVE METABOLIC 59366 CHLORIDE 105 MMOL/L 03/13 Unknown COMPREHENSIVE METABOLIC 15905 BILI TOT 0.6 MG/DL 2010 Unknown COMPREHENSIVE METABOLIC 82753 ALK PHOS 68 U/L 2010 Unknown COMPREHENSIVE METABOLIC 06868 SODIUM 139 MMOL/L 03/13 Unknown COMPREHENSIVE METABOLIC 91208 CREATININE 0.77 MG/DL 02/23 Unknown COMPREHENSIVE METABOLIC 13157 CALCIUM 9.2 MG/DL 2010 Unknown COMPREHENSIVE METABOLIC 39445 POTASSIUM 3.8 MMOL/L 03/13 Unknown COMPREHENSIVE METABOLIC 75703 PROT TOT 6.9 GM/DL 2010 Unknown COMPREHENSIVE METABOLIC 44705 Glucose 97 MG/DL 2010 Unknown COMPREHENSIVE METABOLIC 84094 BICARB 25 MMOL/L 2010 Unknown COMPREHENSIVE METABOLIC 81487 ANION GAP 9 MEQ/L 2010 Unknown FREE T4 74054 FREE T4 1.32 NG/DL 12/16/2010 Unknown COMPLETE BLOOD COUNT 59404 WBC 5.6 10e9/L 12/17/19 11 Unknown COMPLETE BLOOD COUNT 79588 RBC 4.38 10e12/L 2010 Unknown COMPLETE BLOOD COUNT 33744 HGB 12.5 g/dL 1 Unknown COMPLETE BLOOD COUNT 80165 HCT DET 38.7 % 1 Unknown COMPLETE BLOOD COUNT 90009 MCV 88.4 fL 1 Unknown COMPLETE BLOOD COUNT 66128 MCH 28.5 pg 1 Unknown COMPLETE BLOOD COUNT 16614 MCHC 32.3 g/dL 1 Unknown COMPLETE BLOOD COUNT 62103 PLT 249 10e9/L 12/17/19 11 Unknown COMPLETE BLOOD COUNT 79923 MPV 10.5 fL 1 Unknown COMPLETE BLOOD COUNT 68924 CRISTI % 52.8 % 1 Unknown COMPLETE BLOOD COUNT 81013 LY % 33.3 % 1 Unknown COMPLETE BLOOD COUNT 71657 MON % 9.8 % 1 Unknown COMPLETE BLOOD COUNT 26978 EOS % 3.4 % 1 Unknown COMPLETE BLOOD COUNT 43645 BASO % 0.7 % 1 Unknown COMPLETE BLOOD COUNT 25187 RDW 14.2 % 1 Unknown COMPLETE BLOOD COUNT 51585 ABS CRISTI 2.96 10e9/L 011 Unknown COMPLETE BLOOD COUNT 17337 ABS LYMPH 1.86 10e9/L 011 Unknown COMPLETE BLOOD COUNT 31926 ABS MONO 0.55 10e9/L 011 Unknown COMPLETE BLOOD COUNT 31632 ABS EOS 0.19 10e9/L 011 Unknown COMPLETE BLOOD COUNT 12820 ABS BASO 0.04 10e9/L 011 Unknown COMPLETE BLOOD COUNT 53551 RDW-SD 45.1 fL 1 Unknown GFR CALC 9888463 GFR AA >60 ML/MIN 12/16/2010 Unknown GFR CALC 1442678 GFR NON-AA >60 ML/MIN 12/16/2010 Unknown THYROID STIMULATING HORMONE 65126 TSH 7.082 uIU/ML 12/16/2010 Unknown COMPREHENSIVE METABOLIC 36500 AST 21 U/L 2010 Unknown COMPREHENSIVE METABOLIC 68765 ALT 18 IU/L 2010 Unknown COMPREHENSIVE METABOLIC 91974 BUN 22 MG/DL 2010 Unknown COMPREHENSIVE METABOLIC 71490 ALBUMIN 4.6 GM/DL 2010 Unknown COMPREHENSIVE METABOLIC 62952 CHLORIDE 102 MMOL/L 12/16 Unknown COMPREHENSIVE METABOLIC 33282 BILI TOT 0.6 MG/DL 2010 Unknown COMPREHENSIVE METABOLIC 35976 ALK PHOS 72 U/L 2010 Unknown COMPREHENSIVE METABOLIC 93391 SODIUM 140 MMOL/L 12/16 Unknown COMPREHENSIVE METABOLIC 19159 CREATININE 0.73 MG/DL 11/23 Unknown COMPREHENSIVE METABOLIC 93145 CALCIUM 9.4 MG/DL 2010 Unknown COMPREHENSIVE METABOLIC 74904 POTASSIUM 4.2 MMOL/L 12/16 Unknown COMPREHENSIVE METABOLIC 76880 PROT TOT 7.1 GM/DL 2010 Unknown COMPREHENSIVE METABOLIC 58905 Glucose 88 MG/DL 2010 Unknown COMPREHENSIVE METABOLIC 93732 BICARB 30 MMOL/L 2010 Unknown COMPREHENSIVE METABOLIC 19771 ANION GAP 8 MEQ/L 2010 Unknown LIPID GROUP 19840 HDL TEST 66 MG/DL 12/16/2010 Unknown LIPID GROUP 64774 TRIG 154 MG/DL 12/16/2010 Unknown LIPID GROUP 70618 TEST LDL 128 MG/DL 12/16/2010 Unknown LIPID GROUP 55592 CHOL 225 MG/DL 12/16/2010 Unknown LIPID GROUP 08054 RCHOL/HDL 3.41 RATIO 12/16/2010 Unknow n Procedures Procedure Codes Date ROUTINE VENIPUNCTURE CPT-4: 62157 02/28/2022 RML ASSAY OF FREE THYROXINE CPT-4: 70921 02/28/2022 RML ASSAY THYROID STIM HORMONE CPT-4: 04284 RML COMPREHEN METABOLIC PANEL CPT-4: 42330 02/28/2022 RML COMPLETE CBC W/AUTO DIFF WBC CPT-4: 84815 022 RML LIPID PANEL CPT-4: 84429 02/28/2022 RML A1C HPLC CPT-4: 60300 02/28/2022 SARSCOV & INF VIR A&B AG IA CPT-4: 92284 08/09/2021 CLEAR OUTER EAR CANAL CPT-4: 57850 08/09/2021 ROUTINE VENIPUNCTURE CPT-4: 37224 07/20/2021 RML ASSAY OF FREE THYROXINE CPT-4: 62612 07/20/2021 RML ASSAY THYROID STIM HORMONE CPT-4: 40683 RML COMPREHEN METABOLIC PANEL CPT-4: 37533 07/20/2021 RML COMPLETE CBC W/AUTO DIFF WBC CPT-4: 61499 021 RML A1C HPLC CPT-4: 69725 07/20/2021 DESTRUCT B9 LESION 1-14 CPT-4: 88800 05/12/2021 THER/PROPH/DIAG INJ SC/IM CPT-4: 32214 03/08/2021 TRIAMCINOLONE ACET INJ NOS CPT-4: J3301 03/08/2021 ROUTINE VENIPUNCTURE CPT-4: 96409 01/31/2021 RML COMPREHEN METABOLIC PANEL CPT-4: 19992 01/31/2021 RML COMPLETE CBC W/AUTO DIFF WBC CPT-4: 44067 021 RML LIPID PANEL CPT-4: 68036 01/31/2021 RML ASSAY OF FREE THYROXINE CPT-4: 67899 01/31/2021 RML ASSAY THYROID STIM HORMONE CPT-4: 01731 1 RML A1C HPLC CPT-4: 67402 01/31/2021 EXC TR-EXT B9+JOSE G 0.5 CM< CPT-4: 14350 05/19/2020 PPPS, subseq visit CPT-4: G0439 05/11/2020 ROUTINE VENIPUNCTURE CPT-4: 77029 05/05/2020 RML ASSAY OF FREE THYROXINE CPT-4: 95189 05/05/2020 RML ASSAY THYROID STIM HORMONE CPT-4: 25063 0 RML COMPREHEN METABOLIC PANEL CPT-4: 41375 05/05/2020 RML COMPLETE CBC W/AUTO DIFF WBC CPT-4: 15944 020 RML LIPID PANEL CPT-4: 98533 05/05/2020 RML A1C HPLC CPT-4: 72640 05/05/2020 THER/PROPH/DIAG INJ SC/IM CPT-4: 60674 01/28/2020 TRIAMCINOLONE ACET INJ NOS CPT-4: J3301 01/28/2020 ROUTINE VENIPUNCTURE CPT-4: 42441 01/05/2020 RML ASSAY OF FREE THYROXINE CPT-4: 22754 01/05/2020 RML ASSAY THYROID STIM HORMONE CPT-4: 23125 0 RML COMPREHEN METABOLIC PANEL CPT-4: 62769 01/05/2020 RML COMPLETE CBC W/AUTO DIFF WBC CPT-4: 14789 020 ASSAY OF AMYLASE CPT-4: 30121 01/05/2020 ASSAY OF LIPASE CPT-4: 94659 01/05/2020 ROUTINE VENIPUNCTURE CPT-4: 88761 12/05/2019 RML COMPREHEN METABOLIC PANEL CPT-4: 67861 12/05/2019 ROUTINE VENIPUNCTURE CPT-4: 41082 11/05/2019 RML COMPREHEN METABOLIC PANEL CPT-4: 78460 11/05/2019 URINALYSIS NONAUTO W/O SCOPE CPT-4: 53993 10/23/2019 URINE CULTURE/ COLONY COUNT CPT-4: 13439 10/23/2019 ROUTINE VENIPUNCTURE CPT-4: 87848 10/21/2019 RML ASSAY OF FREE THYROXINE CPT-4: 30303 10/21/2019 RML ASSAY THYROID STIM HORMONE CPT-4: 45123 0 RML COMPREHEN METABOLIC PANEL CPT-4: 63981 10/21/2019 RML COMPLETE CBC W/AUTO DIFF WBC CPT-4: 27704 020 RML LIPID PANEL CPT-4: 60952 10/21/2019 HYDRATION IV INFUSION INIT CPT-4: 47581 10/20/2019 Removal impacted cerumen using irrigation/lavage, unilateral CPT-4: 89091 10/20/2019 ROUTINE VENIPUNCTURE CPT-4: 61838 04/04/2019 RML COMPLETE CBC W/AUTO DIFF WBC CPT-4: 11658 019 RML COMPREHEN METABOLIC PANEL CPT-4: 70091 04/04/2019 RML ASSAY THYROID STIM HORMONE CPT-4: 33975 9 RML ASSAY OF FREE THYROXINE CPT-4: 08582 04/04/2019 RML LIPID PANEL CPT-4: 03548 04/04/2019 PPPS, subseq visit CPT-4: G0439 11/26/2018 ROUTINE VENIPUNCTURE CPT-4: 51380 10/07/2018 RML ASSAY THYROID STIM HORMONE CPT-4: 65141 9 RML ASSAY OF FREE THYROXINE CPT-4: 49777 10/07/2018 RML COMPREHEN METABOLIC PANEL CPT-4: 40762 10/07/2018 RML COMPLETE CBC W/AUTO DIFF WBC CPT-4: 67394 019 RML LIPID PANEL CPT-4: 73928 10/07/2018 RML A1C HPLC CPT-4: 61290 10/07/2018 CERUM REMOVAL CPT-4: 94547 06/25/2018 THER/PROPH/DIAG INJ SC/IM CPT-4: 25275 05/03/2018 TRIAMCINOLONE ACET INJ NOS CPT-4: J3301 05/03/2018 Removal impacted cerumen using irrigation/lavage, unilateral CPT-4: 25202 02/19/2018 ROUTINE VENIPUNCTURE CPT-4: 30651 02/13/2018 RML ASSAY OF FREE THYROXINE CPT-4: 51970 02/13/2018 RML ASSAY THYROID STIM HORMONE CPT-4: 08487 8 RML COMPREHEN METABOLIC PANEL CPT-4: 54478 02/13/2018 RML COMPLETE CBC W/AUTO DIFF WBC CPT-4: 35596 018 ROUTINE VENIPUNCTURE CPT-4: 68581 10/15/2017 RML ASSAY OF FREE THYROXINE CPT-4: 88706 10/15/2017 RML ASSAY THYROID STIM HORMONE CPT-4: 66186 8 RML COMPREHEN METABOLIC PANEL CPT-4: 18636 10/15/2017 RML COMPLETE CBC W/AUTO DIFF WBC CPT-4: 29512 018 RML LIPID PANEL CPT-4: 13310 10/15/2017 VITAMIN B-12 CPT-4: 95509 10/15/2017 CERUM REMOVAL CPT-4: 07903 07/24/2017 ROUTINE VENIPUNCTURE CPT-4: 70545 03/30/2017 VITAMIN B-12 CPT-4: 59042 03/30/2017 ROUTINE VENIPUNCTURE CPT-4: 97492 12/18/2016 VITAMIN B-12 CPT-4: 88198 12/18/2016 PPPS, subseq visit CPT-4: G0439 12/18/2016 ROUTINE VENIPUNCTURE CPT-4: 50512 12/11/2016 RML ASSAY OF FREE THYROXINE CPT-4: 25748 12/11/2016 RML ASSAY THYROID STIM HORMONE CPT-4: 70072 7 RML COMPREHEN METABOLIC PANEL CPT-4: 57667 12/11/2016 RML COMPLETE CBC W/AUTO DIFF WBC CPT-4: 52270 017 RML LIPID PANEL CPT-4: 26105 12/11/2016 RML A1C HPLC CPT-4: 29363 12/11/2016 URINALYSIS NONAUTO W/O SCOPE CPT-4: 68422 02/07/2016 ROUTINE VENIPUNCTURE CPT-4: 14777 05/27/2015 RML ASSAY OF FREE THYROXINE CPT-4: 70636 05/27/2015 RML ASSAY THYROID STIM HORMONE CPT-4: 09645 5 RML COMPREHEN METABOLIC PANEL CPT-4: 13030 05/27/2015 RML COMPLETE CBC W/AUTO DIFF WBC CPT-4: 33315 015 RML LIPID PANEL CPT-4: 81279 05/27/2015 VITAMIN B-12 CPT-4: 19267 05/27/2015 RML A1C HPLC CPT-4: 06887 05/27/2015 PNEUMOCOCCAL VACC 13 LEN IM CPT-4: 53609 05/26/2015 ADMIN PNEUMOCOCCAL VACCINE CPT-4: G0009 05/26/2015 CUR TOBACCO NON-USER CPT-4: G8457 05/26/2015 OCCULT BLOOD FECES CPT-4: 47136 02/19/2015 OCCULT BLOOD FECES CPT-4: 53819 01/20/2015 ROUTINE VENIPUNCTURE CPT-4: 74805 12/15/2014 ASSAY OF IRON CPT-4: 45522 12/15/2014 RML COMPLETE CBC W/AUTO DIFF WBC CPT-4: 03924 015 CERUM REMOVAL CPT-4: 61488 11/30/2014 PRESCRIP TRANSMIT VIA ERX SY CPT-4: G8553 11/30/2014 ROUTINE VENIPUNCTURE CPT-4: 89265 11/26/2014 RML COMPREHEN METABOLIC PANEL CPT-4: 69673 11/26/2014 RML LIPID PANEL CPT-4: 21850 11/26/2014 ROUTINE VENIPUNCTURE CPT-4: 38948 08/14/2014 RML ASSAY OF FREE THYROXINE CPT-4: 97296 08/14/2014 RML ASSAY THYROID STIM HORMONE CPT-4: 23976 4 RML COMPREHEN METABOLIC PANEL CPT-4: 97722 08/14/2014 RML COMPLETE CBC W/AUTO DIFF WBC CPT-4: 03017 014 RML LIPID PANEL CPT-4: 94020 08/14/2014 PRESCRIP TRANSMIT VIA ERX SY CPT-4: G8553 07/23/2014 PRESCRIP TRANSMIT VIA ERX SY CPT-4: G8553 03/09/2014 PRESCRIP TRANSMIT VIA ERX SY CPT-4: G8553 02/05/2014 ROUTINE VENIPUNCTURE CPT-4: 83716 02/04/2014 RML ASSAY OF FREE THYROXINE CPT-4: 92025 02/04/2014 RML ASSAY THYROID STIM HORMONE CPT-4: 56361 4 RML COMPREHEN METABOLIC PANEL CPT-4: 69449 02/04/2014 RML COMPLETE CBC W/AUTO DIFF WBC CPT-4: 86132 014 RML LIPID PANEL CPT-4: 82968 02/04/2014 DRAIN/INJECT JOINT/BURSA CPT-4: 39709 04/07/2013 METHYLPREDNISOLONE 40 MG INJ CPT-4: J1030 04/07/2013 TRIAMCINOLONE ACET INJ NOS CPT-4: J3301 04/07/2013 PRESCRIP TRANSMIT VIA ERX SY CPT-4: G8553 04/07/2013 DRAIN/INJECT JOINT/BURSA CPT-4: 75585 10/09/2012 METHYLPREDNISOLONE 40 MG INJ CPT-4: J1030 10/09/2012 TRIAMCINOLONE ACET INJ NOS CPT-4: J3301 10/09/2012 PRESCRIP TRANSMIT VIA ERX SY CPT-4: G8553 03/28/2012 ROUTINE VENIPUNCTURE CPT-4: 23875 03/18/2012 RML ASSAY OF FREE THYROXINE CPT-4: 69124 03/18/2012 RML ASSAY THYROID STIM HORMONE CPT-4: 38317 2 RML COMPREHEN METABOLIC PANEL CPT-4: 15913 03/18/2012 RML COMPLETE CBC W/AUTO DIFF WBC CPT-4: 68122 012 RML LIPID PANEL CPT-4: 90344 03/18/2012 CERUM REMOVAL CPT-4: 18610 2012 OCCULT BLOOD FECES CPT-4: 67321 09/27/2011 CA SCREEN;PELVIC/BREAST EXAM CPT-4: G0101 09/27/2011 OBTAINING SCREEN PAP SMEAR CPT-4: Q0091 09/27/2011 CUR TOBACCO NON-USER CPT-4: G8457 09/13/2011 PRESCRIP TRANSMIT VIA ERX SY CPT-4: G8553 09/13/2011 PRESCRIP TRANSMIT VIA ERX SY CPT-4: G8553 08/07/2011 ROUTINE VENIPUNCTURE CPT-4: 76816 07/13/2011 RML ASSAY OF FREE THYROXINE CPT-4: 13930 07/13/2011 RML ASSAY THYROID STIM HORMONE CPT-4: 10460 1 RML COMPREHEN METABOLIC PANEL CPT-4: 73279 07/13/2011 RML COMPLETE CBC W/AUTO DIFF WBC CPT-4: 42007 011 RML LIPID PANEL CPT-4: 01834 07/13/2011 ROUTINE VENIPUNCTURE CPT-4: 09927 03/13/2011 RML COMPREHEN METABOLIC PANEL CPT-4: 37942 03/13/2011 RML LIPID PANEL CPT-4: 49107 03/13/2011 RML ASSAY THYROID STIM HORMONE CPT-4: 76235 1 RML ASSAY OF FREE THYROXINE CPT-4: 16988 03/13/2011 PRESCRIP TRANSMIT VIA ERX SY CPT-4: G8553 01/04/2011 ROUTINE VENIPUNCTURE CPT-4: 50763 12/16/2010 RML LIPID PANEL CPT-4: 05712 12/16/2010 RML COMPLETE CBC W/AUTO DIFF WBC CPT-4: 64435 011 RML COMPREHEN METABOLIC PANEL CPT-4: 90927 12/16/2010 RML ASSAY OF FREE THYROXINE CPT-4: 49937 12/16/2010 RML ASSAY THYROID STIM HORMONE CPT-4: 38517 1 INJ TRIGGER POINT 1/2 MUSCL CPT-4: 39105 02/14/2010 TRIAMCINOLONE ACET INJ NOS CPT-4: J3301 02/14/2010 METHYLPREDNISOLONE 40 MG INJ CPT-4: J1030 02/14/2010 THER/PROPH/DIAG INJ SC/IM CPT-4: 88013 02/07/2010 KETOROLAC TROMETHAMINE INJ CPT-4: J1885 02/07/2010 ROUTINE VENIPUNCTURE CPT-4: 50462 12/22/2009 Vital Signs Date Vital 08/02/2022 Blood Pressure 1: 141/102 Code: 8480-6 BMI: 26.4 Code: 11364-6 Heart Rate 1: 91 bpm Height: 5'10" Code: 8302-2 SpO2: 98% Temperature: 36.2 (C) / 97.1 (F) Weight: 184 lbs Code: 91368-5 06/26/2022 Blood Pressure 1: 132/78 Code: 8480-6 BMI: 25.5 Code: 79238-1 Heart Rate 1: 96 bpm Height: 5'10" Code: 8302-2 SpO2: 98% Temperature: 36.2 (C) / 97.2 (F) Weight: 178 lbs Code: 61798-3 05/22/2022 Blood Pressure 1: 126/82 Code: 8480-6 BMI: 25.5 Code: 06949-3 Heart Rate 1: 104 bpm Height: 5'10" Code: 8302-2 Respiratory Rate: 20 bpm SpO2: 96% Temperature: 36.8 (C) / 98.2 (F) Weight: 178 lbs Code: 72087-0 02/27/2022 Blood Pressure 1: 142/82 Code: 8480-6 BMI: 25.5 Code: 75585-2 Heart Rate 1: 112 bpm Height: 5'10" Code: 8302-2 Respiratory Rate: 20 bpm SpO2: 96% Temperature: 36.8 (C) / 98.3 (F) Weight: 178 lbs Code: 87089-1 11/23/2021 Blood Pressure 1: 136/82 Code: 8480-6 BMI: 25.7 Code: 46879-1 Heart Rate 1: 72 bpm Height: 5'10" Code: 8302-2 Respiratory Rate: 20 bpm SpO2: 98% Temperature: 36.6 (C) / 97.9 (F) Weight: 179 lbs Code: 61648-8 10/12/2021 Blood Pressure 1: 128/92 Code: 8480-6 BMI: 25.5 Code: 35174-7 Heart Rate 1: 68 bpm Height: 5'10" Code: 8302-2 Respiratory Rate: 20 bpm SpO2: 98% Temperature: 36.7 (C) / 98.1 (F) Weight: 178 lbs Code: 03108-3 08/09/2021 Blood Pressure 1: 127/80 Code: 8480-6 Heart Rate 1: 69 bpm Respiratory Rate: 15 bpm SpO2: 98% Temperature: 36.7 (C) / 98.0 (F) We ight: 171 lbs Code: 71208-7 07/28/2021 Blood Pressure 1: 132/78 Code: 8480-6 Heart Rate 1: 76 bpm Respiratory Rate: 20 bpm SpO2: 96% Temperature: 36.8 (C) / 98.2 (F) We ight: 174 lbs Code: 37130-5 05/12/2021 Blood Pressure 1: 142/80 Code: 8480-6 Heart Rate 1: 76 bpm Respiratory Rate: 20 bpm SpO2: 96% Temperature: 36.8 (C) / 98.2 (F) We ight: 173 lbs Code: 74220-4 03/08/2021 Blood Pressure 1: 124/80 Code: 8480-6 Heart Rate 1: 88 bpm Respiratory Rate: 20 bpm SpO2: 98% Temperature: 36.8 (C) / 98.3 (F) We ight: 175 lbs Code: 62232-5 02/03/2021 Blood Pressure 1: 144/84 Code: 8480-6 Heart Rate 1: 68 bpm Respiratory Rate: 20 bpm SpO2: 97% Temperature: 36.7 (C) / 98.1 (F) We ight: 182 lbs Code: 51492-8 01/04/2021 Blood Pressure 1: 152/86 Code: 8480-6 Heart Rate 1: 72 bpm Respiratory Rate: 20 bpm SpO2: 97% Temperature: 36.6 (C) / 97.8 (F) We ight: 182 lbs Code: 02246-2 10/05/2020 Blood Pressure 1: 124/66 Code: 8480-6 He art Rate 1: 65 bpm 09/20/2020 Blood Pressure 1: 134/76 Code: 8480-6 Heart Rate 1: 60 bpm Respiratory Rate: 20 bpm SpO2: 97% Temperature: 36.1 (C) / 97.0 (F) We ight: 187 lbs Code: 97811-6 05/28/2020 Temperature: 36.8 (C) / 98.3 (F) 05/19/2020 Blood Pressure 1: 128/78 Code: 8480-6 Heart Rate 1: 50 bpm Respiratory Rate: 20 bpm SpO2: 98% Temperature: 36.5 (C) / 97.7 (F) 05/11/2020 Blood Pressure 1: 126/80 Code: 8480-6 BMI: 25.4 Code: 77385-6 Heart Rate 1: 60 bpm Height: 5'10" Code: 8302-2 Respiratory Rate: 20 bpm Temperat ure: 36.6 (C) / 97.8 (F) Weight: 177 lbs Code: 25273-0 05/05/2020 Blood Pressure 1: 122/78 Code: 8480-6 [...] 1: 104/66 Code: 8480-6 BMI: 25.4 Code: 08842-5 Heart Rate 1: 56 bpm Height: 5'10" Code: 8302-2 Respiratory Rate: 20 bpm SpO2: 97% Temperature: 36.6 (C) / 97.8 (F) Weight: 177 lbs Code: 36533-4 10/29/2019 Blood Pressure 1: 114/62 Code: 8480-6 Heart Rate 1: 68 bpm Respiratory Rate: 20 bpm SpO2: 99% Temperature: 36.8 (C) / 98.2 (F) 10/20/2019 Blood Pressure 1: 119/74 Code: 8480-6 Heart Rate 1: 57 bpm Respiratory Rate: 16 bpm SpO2: 99% Temperature: 36.9 (C) / 98.4 (F) We ight: 176 lbs Code: 71473-9 07/07/2019 Blood Pressure 1: 126/74 Code: 8480-6 Heart Rate 1: 72 bpm Respiratory Rate: 16 bpm SpO2: 95% Temperature: 36.8 (C) / 98.2 (F) We ight: 179 lbs Code: 30744-5 05/01/2019 Blood Pressure 1: 126/76 Code: 8480-6 Heart Rate 1: 60 bpm Respiratory Rate: 20 bpm SpO2: 97% Temperature: 36.8 (C) / 98.2 (F) 04/15/2019 Blood Pressure 1: 154/94 Code: 8480-6 BMI: 26.0 Code: 92062-5 Heart Rate 1: 60 bpm Height: 5'10" Code: 8302-2 Respiratory Rate: 18 bpm SpO2: 97% Temperature: 36.6 (C) / 97.9 (F) Weight: 181 lbs Code: 93745-7 11/26/2018 Blood Pressure 1: 142/80 Code: 8480-6 BMI: 26.3 Code: 88685-1 Heart Rate 1: 56 bpm Height: 5'10" Code: 8302-2 Respiratory Rate: 20 bpm SpO2: 97% Temperature: 36.9 (C) / 98.4 (F) Weight: 183 lbs Code: 35308-4 08/08/2018 Blood Pressure 1: 126/68 Code: 8480-6 Heart Rate 1: 76 bpm Height: 5'10" Code: 8302-2 Respiratory Rate: 20 bpm SpO2: 97% Temperature: 36 .7 (C) / 98.0 (F) Weight: Code: 94394-2 06/25/2018 Blood Pressure 1: 112/70 Code: 8480-6 BMI: 25.8 Code: 33432-3 Heart Rate 1: 64 bpm Height: 5'10" Code: 8302-2 Respiratory Rate: 20 bpm SpO2: 95% Temperature: 36.9 (C) / 98.4 (F) Weight: 180 lbs Code: 00000-7 05/20/2018 Blood Pressure 1: 132/100 Code: 8480-6 H eart Rate 1: 76 bpm 05/10/2018 Blood Pressure 1: 144/86 Code: 8480-6 Heart Rate 1: 60 bpm Respiratory Rate: 20 bpm SpO2: 97% Temperature: 36.9 (C) / 98.4 (F) We ight: Code: 64499-2 05/03/2018 Blood Pressure 1: 126/92 Code: 8480-6 Bl ood Pressure 2: 147/79 Code: 8480-6 Heart Rate 1: 64 bpm Height: 5'10" Code: 8302-2 Respiratory Rate : 22 bpm SpO2: 98% Temperature: 36.3 (C) / 97.3 (F) Weight: Code: 78637- 7 04/22/2018 Blood Pressure 1: 140/82 Code: 8480-6 BMI: 26.3 Code: 51631-4 Heart Rate 1: 60 bpm Height: 5'10" Code: 8302-2 Respiratory Rate: 20 bpm SpO2: 95% Temperature: 36.8 (C) / 98.2 (F) Weight: 183 lbs Code: 16558-8 03/05/2018 Blood Pressure 1: 122/64 Code: 8480-6 BMI: 25.7 Code: 59818-1 Heart Rate 1: 82 bpm Height: 5'10" Code: 8302-2 Respiratory Rate: 22 bpm SpO2: 96% Temperature: 36.4 (C) / 97.6 (F) Weight: 179 lbs Code: 03981-7 02/19/2018 Blood Pressure 1: 120/84 Code: 8480-6 Heart Rate 1: 68 bpm SpO2: 96% Temperature: 36.2 (C) / 97.2 (F) Weight: Code: 29463-3 02/13/2018 Blood Pressure 1: 138/90 Cod e: 8480-6 10/18/2017 Blood Pressure 1: 122/78 Code: 8480-6 BMI: 26.5 Code: 78786-6 Heart Rate 1: 72 bpm Height: 5'10" Code: 8302-2 Respiratory Rate: 20 bpm Temperat ure: 36.7 (C) / 98.0 (F) Weight: 185 lbs Code: 17535-8 07/24/2017 Blood Pressure 1: 118/68 Code: 8480-6 Heart Rate 1: 82 bpm Height: 5'10" Code: 8302-2 Respiratory Rate: 20 bpm SpO2: 92% Temperature: 36 .4 (C) / 97.6 (F) Weight: Code: 38206-1 06/14/2017 Blood Pressure 1: 156/98 Code: 8480-6 Heart Rate 1: 84 bpm Height: 5'10" Code: 8302-2 Respiratory Rate: 20 bpm SpO2: 96% Temperature: 36 .9 (C) / 98.5 (F) Weight: Code: 31908-6 06/01/2017 Blood Pressure 1: 122/82 Code: 8480-6 Heart Rate 1: 68 bpm Height: 5'10" Code: 8302-2 Respiratory Rate: 20 bpm Temperature: 36.8 (C) / 98.2 (F) 03/30/2017 Blood Pressure 1: 124/78 Code: 8480-6 Heart Rate 1: 88 bpm Height: 5'10" Code: 8302-2 Respiratory Rate: 20 bpm SpO2: 96% Temperature: 36 .9 (C) / 98.4 (F) Weight: Code: 61311-3 01/17/2017 Blood Pressure 1: 126/74 Code: 8480-6 Heart Rate 1: 72 bpm Height: 5'10" Code: 8302-2 Respiratory Rate: 20 bpm SpO2: 96% Temperature: 37 .0 (C) / 98.6 (F) Weight: Code: 58295-0 12/18/2016 Blood Pressure 1: 128/86 Code: 8480-6 BMI: 24.7 Code: 13594-3 Heart Rate 1: 76 bpm Height: 5'10" Code: 8302-2 Respiratory Rate: 20 bpm SpO2: 96% Temperature: 36.8 (C) / 98.3 (F) Weight: 172 lbs Code: 91512-0 11/02/2016 Blood Pressure 1: 128/80 Code: 8480-6 BMI: 24.7 Code: 01780-5 Heart Rate 1: 72 bpm Height: 5'10" Code: 8302-2 Respiratory Rate: 20 bpm SpO2: 94% Temperature: 36.9 (C) / 98.4 (F) Weight: 172 lbs Code: 95327-8 10/24/2016 Blood Pressure 1: 120/78 Code: 8480-6 BMI: 24.7 Code: 97198-1 Heart Rate 1: 88 bpm Height: 5'10" Code: 8302-2 Respiratory Rate: 18 bpm SpO2: 96% Temperature: 36.5 (C) / 97.7 (F) Weight: 172 lbs Code: 63020-0 02/07/2016 Heart Rate 1: 76 bpm Respiratory Rate: 22 bpm SpO2: 96 % Temperature: 36.4 (C) / 97.6 (F) Weight: Code: 34660-9 05/26/2015 Blood Pressure 1: 124/70 Code: 8480-6 BMI: 25.1 Code: 26450-4 Heart Rate 1: 84 bpm Height: 5'10" Code: 8302-2 Respiratory Rate: 20 bpm Temperat ure: 36.7 (C) / 98.1 (F) Weight: 175 lbs Code: 24909-1 11/30/2014 Blood Pressure 1: 142/94 Code: 8480-6 BMI: 25.1 Code: 21615-4 Heart Rate 1: 80 bpm Height: 5'10" Code: 8302-2 Respiratory Rate: 20 bpm Temperat ure: 36.9 (C) / 98.5 (F) Weight: 175 lbs Code: 08847-5 07/23/2014 Blood Pressure 1: 138/86 Code: 8480-6 BMI: 25.0 Code: 87755-3 Heart Rate 1: 80 bpm Height: 5'10" Code: 8302-2 Respiratory Rate: 20 bpm Temperat ure: 36.4 (C) / 97.6 (F) Weight: 174 lbs Code: 14949-2 03/09/2014 Blood Pressure 1: 122/78 Code: 8480-6 BMI: 25.0 Code: 25504-0 Heart Rate 1: 78 bpm Height: 5'10" Code: 8302-2 Respiratory Rate: 24 bpm Temperat ure: 36.4 (C) / 97.6 (F) Weight: 174 lbs Code: 15423-9 02/05/2014 Blood Pressure 1: 132/80 Code: 8480-6 BMI: 25.0 Code: 40683-1 Heart Rate 1: 84 bpm Height: 5'10" Code: 8302-2 Respiratory Rate: 20 bpm Temperat ure: 36.6 (C) / 97.9 (F) Weight: 174 lbs Code: 78253-1 05/12/2013 Blood Pressure 1: 138/94 Code: 8480-6 BMI: 25.1 Code: 76918-9 Heart Rate 1: 92 bpm Height: 5'10" Code: 8302-2 Respiratory Rate: 20 bpm Temperat ure: 36.7 (C) / 98.1 (F) Weight: 175 lbs Code: 06422-6 04/07/2013 Blood Pressure 1: 136/72 Code: 8480-6 BMI: 25.1 Code: 25427-4 Heart Rate 1: 76 bpm Height: 5'10" Code: 8302-2 Respiratory Rate: 20 bpm Temperat ure: 36.7 (C) / 98.0 (F) Weight: 175 lbs Code: 70517-2 03/31/2013 Blood Pressure 1: 132/94 Code: 8480-6 BMI: 25.1 Code: 02511-6 Heart Rate 1: 76 bpm Height: 5'10" Code: 8302-2 Respiratory Rate: 20 bpm Temperat ure: 36.7 (C) / 98.0 (F) Weight: 175 lbs Code: 69376-9 10/09/2012 Blood Pressure 1: 132/80 Code: 8480-6 BMI: 24.8 Code: 70974-8 Heart Rate 1: 88 bpm Height: 5'10" Code: 8302-2 Temperature: 36.8 (C) / 98.3 (F) Weight: 173 lbs Code: 07709-7 03/28/2012 Blood Pressure 1: 126/82 Code: 8480-6 BMI: 24.7 Code: 83438-0 Heart Rate 1: 72 bpm Height: 5'10" Code: 8302-2 Respiratory Rate: 20 bpm Temperat ure: 36.6 (C) / 97.8 (F) Weight: 172 lbs Code: 38616-0 2012 Blood Pressure 1: 130/72 Code: 8480-6 Heart Rate 1: 80 bpm Height: Code: 8302-2 Temperature: 36.5 (C) / 97.7 (F) Weight: Code: 23116- 7 09/27/2011 Blood Pressure 1: 116/78 Code: 8480-6 BMI: 24.4 Code: 63378-2 Heart Rate 1: 76 bpm Height: 5'10" Code: 8302-2 Respiratory Rate: 20 bpm Temperat ure: 36.9 (C) / 98.4 (F) Weight: 170 lbs Code: 64928-5 09/13/2011 Blood Pressure 1: 124/82 Code: 8480-6 BMI: 24.4 Code: 95025-1 Heart Rate 1: 72 bpm Height: 5'10" Code: 8302-2 Respiratory Rate: 20 bpm Temperat ure: 36.4 (C) / 97.6 (F) Weight: 170 lbs Code: 54768-4 08/07/2011 Blood Pressure 1: 110/74 Code: 8480-6 BMI: 23.2 Code: 22353-8 Heart Rate 1: 60 bpm Height: 5'11" Code: 8302-2 Temperature: 36.4 (C) / 97.5 (F) Weight: 166 lbs Code: 43116-2 02/06/2011 Blood Pressure 1: 96/58 Code : 8480-6 01/20/2011 Blood Pressure 1: 112/78 Cod e: 8480-6 01/12/2011 Blood Pressure 1: 110/48 Code: 8480-6 He art Rate 1: 84 bpm 01/04/2011 Blood Pressure 1: 126/80 Code: 8480-6 Heart Rate 1: 76 bpm Temperature: 36.9 (C) / 98.4 (F) Weight: 168 lbs Code: 73508-6 02/14/2010 Blood Pressure 1: 134/82 Code: 8480-6 Heart Rate 1: 88 bpm Temperature: 36.6 (C) / 97.9 (F) 02/07/2010 Blood Pressure 1: 130/80 Code: 8480-6 BMI: 23.4 Code: 55677-2 Heart Rate 1: 84 bpm Height: 5'10" Code: 8302-2 Temperature: 36.4 (C) / 97.6 (F) Weight: 163 lbs Code: 95341-0 Functional Status No Functional Status data Reason [...] Encounter Performer Location Location Address Codes Date ([id number]) OFFICE/OUTPATIENT VISIT EST Diagnosis: Atrial fibrillation and flutter[ICD10: I48.91] Diagnosis: Essential (primary) hypertension[ICD10: I10] Diagnosis: Stress[ICD10: F43.9] Diagnosis: Cough[ICD10: R05.9] Yvette STUART CristiGarrett JOANN [address] [address] CPT-4: 96858 08/02/20 ([id number]) OFFICE/OUTPATIENT VISIT EST Diagnosis: Atrial fibrillation and flutter[ICD10: I48.91] Yvette Rodriguez [address] [address] CPT- 4: 06078 06/26/2022 ([id number]) OFFICE/OUTPATIENT VISIT EST Diagnosis: Chronic atrial fibrillation[ICD10: I48.20] Diagnosis: Essential hypertension[ICD10: I10] Diagnosis: Skin cancer of arm[ICD10: C44.601] Diagnosis: Mild chronic obstructive pulmonary disease[ICD10: J44.9] Yvette STUART CristiGarrett JOANN [address] [address] CPT-4: 34896 05/22/2022 ([id number]) NURSE/OUTPATIENT VISIT EST Diagnosis: Atrial fibrillation and flutter[ICD10: I48.91] Diagnosis: Hypothyroidism[ICD10: E03.9] Diagnosis: Mixed hyperlipidemia[ICD10: E78.2] Diagnosis: Anemia, unspecified[ICD10: D64.9] Diagnosis: Essential (primary) hypertension[ICD10: I10] Diagnosis: Hyperglycemia, unspecified[ICD10: R73.9] Yvette DAVID DO [address] [address] CPT- 4: 28407 02/28/2022 ([id number]) OFFICE/OUTPATIENT VISIT EST Diagnosis: Atypical nevus of right forearm[ICD10: D22.61] Diagnosis: Unspecified atrial flutter[ICD10: I48.92] Diagnosis: Atrial fibrillation and flutter[ICD10: I48.91] Yvette DAVID DO [address] [address] CPT- 4: 00441 02/27/2022 ([id number]) OFFICE/OUTPATIENT VISIT EST Diagnosis: Anxiety[ICD10: F41.9] Yvette DAVID DO [address] [address] CPT-4: 45972 11/23/2021 ([id number]) OFFICE/OUTPATIENT VISIT EST Diagnosis: Anxiety[ICD10: F41.9] Diagnosis: Stress reaction[ICD10: F43.0] Yvette DAVID DO [address] [address] CPT-4: 63890 10/12/2021 ([id number]) OFFICE/OUTPATIENT VISIT EST Diagnosis: Contact with and (suspected) exposure to covid-19[ICD10: Z20.822] Diagnosis: Nasopharyngitis[ICD10: J00] Diagnosis: Acute foreign body of left ear canal, initial encounter[ICD10: T16.2XXA] Diagnosis: Acute foreign body of right ear canal[ICD10: T16.1XXA] Martina Jessica YVETTE DAVID DO [address] [address] CPT-4: 65357 08/09/2021 ([id number]) OFFICE/OUTPATIENT VISIT EST Diagnosis: Essential (primary) hypertension[ICD10: I10] Diagnosis: Hypothyroidism[ICD10: E03.9] Diagnosis: Paroxysmal atrial fibrillation[ICD10: I48.0] Diagnosis: Hyperglycemia, unspecified[ICD10: R73.9] Yvette DAVID DO [employer] [address] [place] [address] CPT- 4: 69846 07/28/2021 ([id number]) NURSE/OUTPATIENT VISIT EST Diagnosis: Mixed hyperlipidemia[ICD10: E78.2] Diagnosis: Anemia, unspecified[ICD10: D64.9] Diagnosis: Essential (primary) hypertension[ICD10: I10] Diagnosis: Hypothyroidism, unspecified[ICD10: E03.9] Diagnosis: Hyperglycemia, unspecified[ICD10: R73.9] Yvette DAVID DO [address] [address] CPT- 4: 33235 07/20/2021 ([id number]) OFFICE/OUTPATIENT VISIT EST Diagnosis: Grieving[ICD10: F43.21] Diagnosis: Inflamed seborrheic keratosis[ICD10: L82.0] Yvette DAVID DO [address] [address] CPT- 4: 73877 05/12/2021 ([id number]) OFFICE/OUTPATIENT VISIT EST Diagnosis: Rhus dermatitis[ICD10: L25.5] Yvette DAVID DO [address] [address] CPT-4: 44426 03/08/2021 ([id number]) OFFICE/OUTPATIENT VISIT EST Diagnosis: Essential hypertension[ICD10: I10] Diagnosis: Chronic atrial fibrillation[ICD10: I48.20] Diagnosis: Mixed hyperlipidemia[ICD10: E78.2] Diagnosis: Hyperglycemia, unspecified[ICD10: R73.9] Diagnosis: Depression[ICD10: F32.9] Yvette COTE [address] [address] CPT-4: 83350 02/03/2021 ([id number]) NURSE/OUTPATIENT VISIT EST Diagnosis: Hyperglycemia, unspecified[ICD10: R73.9] Diagnosis: Mixed hyperlipidemia[ICD10: E78.2] Diagnosis: Essential (primary) hypertension[ICD10: I10] Diagnosis: Hypothyroidism, unspecified[ICD10: E03.9] Yvette DAVID DO [address] [address] CPT- 4: 52504 01/31/2021 ([id number]) OFFICE/OUTPATIENT VISIT EST Diagnosis: Vertigo[ICD10: R42] Diagnosis: Chronic atrial fibrillation[ICD10: I48.20] Diagnosis: Cerumen impaction[ICD10: H61.20] Diagnosis: Depression[ICD10: F32.9] Yvette COTE [address] [address] CPT-4: 84674 01/04/2021 ([id number]) NURSE/OUTPATIENT VISIT EST Diagnosis: Essential hypertension[ICD10: I10] Yvette DAVID [address] [address] CPT-4: 25109 10/05/2020 ([id number]) OFFICE/OUTPATIENT VISIT EST Diagnosis: Chronic atrial fibrillation[ICD10: I48.20] Diagnosis: Dizziness[ICD10: R42] Yvette DAVID DO [address] [address] CPT-4: 39088 09/20/2020 ([id number]) NURSE/OUTPATIENT VISIT EST Diagnosis: Dysplastic nevus of right lower extremity[ICD10: D23.71] Yvette DAVID DO [address] [address] CPT-4: 34156 05/28/2020 ([id number]) NURSE/OUTPATIENT VISIT EST Diagnosis: Essential (primary) hypertension[ICD10: I10] Diagnosis: Type 2 diabetes mellitus with hyperglycemia[ICD10: E11.65] Diagnosis: Anemia, unspecified[ICD10: D64.9] Diagnosis: Hypothyroidism, unspecified[ICD10: E03.9] Yvette DAVID DO [address] [address] CPT- 4: 20783 05/05/2020 ([id number]) OFFICE/OUTPATIENT VISIT EST Diagnosis: 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] Diagnosis: Paroxysmal atrial fibrillation[ICD10: I48.0] Yvette STUART CristiGarrett KUNNDER DO [address] [address] CPT- 4: 50667 02/11/2020 ([id number]) OFFICE/OUTPATIENT VISIT EST Diagnosis: Dermatitis[ICD10: L30.9] Diagnosis: 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] Diagnosis: Chronic pruritus[ICD10: L29.9] Yvette STUART Cristi Garrett KUNNDMAYE [address] [address] CPT-4: 71921 01/28/2020 ([id number]) OFFICE/OUTPATIENT VISIT EST Diagnosis: Diarrhea, unspecified[ICD10: R19.7] Diagnosis: Dizziness[ICD10: R42] Diagnosis: Generalized pruritus[ICD10: L29.9] Yvette COREA SGarrett KUNNDER DO [address] [address] CPT-4: 90978 01/05/2020 ([id number]) NURSE/OUTPATIENT VISIT EST Diagnosis: Renal insufficiency[ICD10: N28.9] Yvette Shahid SGarrett KUNNDER [address] [address] CPT-4: 72459 12/05/2019 ([id number]) NURSE/OUTPATIENT VISIT EST Diagnosis: Renal insufficiency[ICD10: N28.9] Diagnosis: Dehydration[ICD10: E86.0] Yvette STUART CristiGarrett KUN NDER DO [address] [address] CPT-4: 86103 11/05/2019 ([id number]) OFFICE/OUTPATIENT VISIT EST Diagnosis: Chronic atrial fibrillation[ICD10: I48.20] Diagnosis: Renal insufficiency[ICD10: N28.9] Diagnosis: Dizziness and giddiness[ICD10: R42] Yvette COLEMAN SGarrett BUSTOSNDER DO [employer] [address] [place] [address] CPT-4: 63400 10/29/2019 ([id number]) NURSE/OUTPATIENT VISIT EST Diagnosis: Hematuria, unspecified[ICD10: R31.9] Yvette MENA Michael BUSTOSNDER DO [address] [address] CPT-4: 17143 10/23/2019 ([id number]) NURSE/OUTPATIENT VISIT EST Diagnosis: Encounter for general adult medical examination without abnormal findings[ICD10: Z00.00] Diagnosis: Essential (primary) hypertension[ICD10: I10] Diagnosis: Hypothyroidism, unspecified[ICD10: E03.9] Diagnosis: Mixed hyperlipidemia[ICD10: E78.2] vYette COREA Michael BUTSOSNDER DO [address] [address] CPT-4: 90715 10/21/2019 ([id number]) OFFICE/OUTPATIENT VISIT EST Diagnosis: Cerumen impaction[ICD10: H61.20] Diagnosis: Dizziness[ICD10: R42] Diagnosis: Gastritis[ICD10: K29.70] Diagnosis: Dehydration[ICD10: E86.0] Natalee MERCADOLINE Michael BUSTOS NDER DO [address] [address] CPT-4: 32104 10/20/2019 ([id number]) OFFICE/OUTPATIENT VISIT EST Diagnosis: Paroxysmal atrial fibrillation[ICD10: I48.0] Diagnosis: Essential hypertension[ICD10: I10] Yvette COREA SGarrett BUSTOSNDER DO [address] [address] CPT-4: 66439 07/07/2019 ([id number]) OFFICE/OUTPATIENT VISIT EST Diagnosis: Essential (primary) hypertension[ICD10: I10] Yvette STUART Michael BUSTOSNDER DO [address] [address] CPT- 4: 28318 05/01/2019 ([id number]) OFFICE/OUTPATIENT VISIT EST Diagnosis: Essential (primary) hypertension[ICD10: I10] Diagnosis: Localized edema[ICD10: R60.0] Yvette DAVID [address] [address] CPT-4: 87715 04/15/2019 ([id number]) NURSE/OUTPATIENT VISIT EST Diagnosis: Essential (primary) hypertension[ICD10: I10] Diagnosis: Hypothyroidism, unspecified[ICD10: E03.9] Diagnosis: Mixed hyperlipidemia[ICD10: E78.2] Yvette DAVID [address] [address] CPT-4: 18987 04/04/2019 ([id number]) NURSE/OUTPATIENT VISIT EST Diagnosis: Essential (primary) hypertension[ICD10: I10] Diagnosis: Hyperglycemia, unspecified[ICD10: R73.9] Diagnosis: Hypothyroidism, unspecified[ICD10: E03.9] Diagnosis: Mixed hyperlipidemia[ICD10: E78.2] Yvette DAVID [address] [address] CPT-4: 80428 10/07/2018 ([id number]) OFFICE/OUTPATIENT VISIT EST Diagnosis: Essential (primary) hypertension[ICD10: I10] Diagnosis: Presence of right artificial knee joint[ICD10: Z96.651] Diagnosis: Unspecified hearing loss, left ear[ICD10: H91.92] Yvette DAVID [address] [address] CPT- 4: 36335 08/08/2018 OFFICE/OUTPATIENT VISIT EST Diagnosis: Impacted cerumen, bilateral[ICD10: H61.23] Diagnosis: Vertigo of central origin, bilateral[ICD10: H81.43] Diagnosis: Essential (primary) hypertension[ICD10: I10] Diagnosis: Paroxysmal atrial fibrillation[ICD10: I48.0] Diagnosis: Dizziness and giddiness[ICD10: R42] Diagnosis: Sudden idiopathic hearing loss, left ear[ICD10: H91.22] Yvette Orender [address] [address] CPT-4: 86299 06/25/2018 ([id number]) OFFICE/OUTPATIENT VISIT EST Diagnosis: Essential (primary) hypertension[ICD10: I10] Diagnosis: Vertigo of central origin, bilateral[ICD10: H81.43] Yvette DAVID [address] [address] CPT-4: 96739 05/10/2018 ([id number]) OFFICE/OUTPATIENT VISIT EST Diagnosis: Allergic rhinitis due to pollen[ICD10: J30.1] Diagnosis: Dizziness and giddiness[ICD10: R42] Diagnosis: Vertigo of central origin, bilateral[ICD10: H81.43] Diagnosis: Essential (primary) hypertension[ICD10: I10] Yvette DAVID [address] [address] CPT- 4: 33659 05/03/2018 OFFICE/OUTPATIENT VISIT EST Diagnosis: Hypothyroidism, unspecified[ICD10: E03.9] Diagnosis: Mixed hyperlipidemia[ICD10: E78.2] Diagnosis: Essential (primary) hypertension[ICD10: I10] Diagnosis: Paroxysmal atrial fibrillation[ICD10: I48.0] Diagnosis: Obstructive sleep apnea (adult) (pediatric)[ICD10: G47.33] Diagnosis: Unilateral primary osteoarthritis, right knee[ICD10: M17.11] Yvette DAVID [address] [address] CPT-4: 04658 04/22/2018 ([id number]) OFFICE/OUTPATIENT VISIT EST Diagnosis: Zoster without complications[ICD10: B02.9] Natalee DAVID [address] [address] CPT- 4: 39683 03/05/2018 ([id number]) NURSE/OUTPATIENT VISIT EST Diagnosis: Hypothyroidism, unspecified[ICD10: E03.9] Diagnosis: Mixed hyperlipidemia[ICD10: E78.2] Diagnosis: Essential (primary) hypertension[ICD10: I10] Diagnosis: Paroxysmal atrial fibrillation[ICD10: I48.0] Yvette DAVID DO [employer] [address] [place] [address] CPT- 4: 50790 02/13/2018 ([id number]) OFFICE/OUTPATIENT VISIT EST Diagnosis: Obstructive sleep apnea (adult) (pediatric)[ICD10: G47.33] Diagnosis: Essential (primary) hypertension[ICD10: I10] Diagnosis: Paroxysmal atrial fibrillation[ICD10: I48.0] Yvette BUSTOSNDMAYE BORJA [employer] [address] [place] [address] CPT- 4: 11993 10/18/2017 ([id number]) OFFICE/OUTPATIENT VISIT EST Diagnosis: Hypothyroidism, unspecified[ICD10: E03.9] Diagnosis: Other vitamin B12 deficiency anemias[ICD10: D51.8] Diagnosis: Essential (primary) hypertension[ICD10: I10] Diagnosis: Mixed hyperlipidemia[ICD10: E78.2] Yvette COREA Michael DAVID Taggled [address] [address] CPT-4: 40600 10/15/2017 OFFICE/OUTPATIENT VISIT EST Diagnosis: Impacted cerumen, bilateral[ICD10: H61.23] Diagnosis: Acute sinusitis, unspecified[ICD10: J01.90] Natalee DAVID [address] [address] CPT- 4: 95331 07/24/2017 ([id number]) OFFICE/OUTPATIENT VISIT EST Diagnosis: Obstructive sleep apnea (adult) (pediatric)[ICD10: G47.33] Diagnosis: Tachycardia, unspecified[ICD10: R00.0] Yvette QUINONES Michael BUSTOSNDMAYE [address] [address] CPT-4: 23979 06/14/2017 ([id number]) OFFICE/OUTPATIENT VISIT EST Diagnosis: Zoster without complications[ICD10: B02.9] Demi Rocha YVETTE DAVID Taggled [address] [address] CPT- 4: 77077 06/01/2017 ([id number]) OFFICE/OUTPATIENT VISIT EST Diagnosis: Essential (primary) hypertension[ICD10: I10] Diagnosis: Tachycardia, unspecified[ICD10: R00.0] Diagnosis: Other vitamin B12 deficiency anemias[ICD10: D51.8] Yvette DILLONQUELINE CristiGarrett JOANN [address] [address] CPT- 4: 44645 03/30/2017 ([id number]) OFFICE/OUTPATIENT VISIT EST Diagnosis: Essential (primary) hypertension[ICD10: I10] Diagnosis: Other fatigue[ICD10: R53.83] Diagnosis: Other chest pain[ICD10: R07.89] Diagnosis: Snoring[ICD10: R06.83] Yvette Kunnate Vega [address] [address] CPT-4: 06798 01/17/2017 ([id number]) OFFICE/OUTPATIENT VISIT EST Diagnosis: Encounter for general adult medical examination without abnormal findings[ICD10: Z00.00] Diagnosis: Hypothyroidism, unspecified[ICD10: E03.9] Diagnosis: Essential (primary) hypertension[ICD10: I10] Diagnosis: Mixed hyperlipidemia[ICD10: E78.2] Diagnosis: Other half-way (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[ICD10: Z79.899] Diagnosis: Hyperglycemia, unspecified[ICD10: R73.9] Yvette Kunvetomaye YVETTE CristiGarrett JOANN [address] [address] CPT- 4: 20639 12/11/2016 ([id number]) OFFICE/OUTPATIENT VISIT EST Diagnosis: URI, ACUTE[ICD10: J06.9] Diagnosis: Cough[ICD10: R05] Yvette Kunnate Rodriguez KUNNATE [address] [address] CPT-4: 18242 11/02/19 ([id number]) OFFICE/OUTPATIENT VISIT EST Diagnosis: Acute upper respiratory infection, unspecified[ICD10: J06.9] Elidia TAYLORER DO [address] [address] CPT-4: 54197 10/24/2016 ([id number]) OFFICE/OUTPATIENT VISIT EST Diagnosis: Nausea[ICD10: R11.0] Diagnosis: Diarrhea, unspecified[ICD10: R19.7] Diagnosis: Dizziness and giddiness[ICD10: R42] Elidia WAYNE JARED Michael BUSTOSNDER DO [address] [address] CPT-4: 07683 02/07/2016 ([id number]) OFFICE/OUTPATIENT VISIT EST Diagnosis: HYPOTHYROIDISM[ICD9: 244.9] Diagnosis: HYPERLIPIDEMIA NEC/NOS[ICD9: 272.4] Diagnosis: ANEMIA NOS[ICD9: 285.9] Diagnosis: HYPERTENSION[ICD9: 401.9] Diagnosis: Neuropathy[ICD9: 355.9] Yvette Kunvetomaye YVETTE CristiGarrett KUNND ER DO [address] [address] CPT-4: 08030 05/27/2015 ([id number]) OFFICE/OUTPATIENT VISIT EST Diagnosis: Neuropathy[ICD9: 355.9] Diagnosis: Foot pain[ICD9: 729.5] Diagnosis: HYPOTHYROIDISM[ICD9: 244.9] Diagnosis: PNEUMOCOCCAL VACCINE[ICD10: Z23] Yvette Kunvetomaye YVETTE CristiGarrett KUNNDER DO [address] [address] CPT-4: 12166 05/26/2015 ([id number]) OFFICE/OUTPATIENT VISIT EST Diagnosis: Hematochezia[ICD9: 578.1] Yvette Kunnate STUART CristiGarrett KUN NDER DO [address] [address] CPT-4: 82453 02/19/2015 ([id number]) OFFICE/OUTPATIENT VISIT EST Diagnosis: Hematochezia[ICD9: 578.1] Yvette STUART CristiGarrett KUN NDER DO [address] [address] CPT-4: 51915 01/20/2015 ([id number]) OFFICE/OUTPATIENT VISIT EST Diagnosis: Hematochezia[ICD9: 578.1] Yvette BUSTOS NDER DO [address] [address] CPT-4: 38335 12/15/2014 ([id number]) OFFICE/OUTPATIENT VISIT EST Diagnosis: TINEA PEDIS[ICD9: 110.4] Diagnosis: Ceruminosis[ICD9: 380.4] Earline SmileyWhitneymargarita MERCADOLINE CristiGarrett KAMRONLilly CHAIREZ DO [address] [address] CPT-4: 19123 11/30/2014 ([id number]) OFFICE/OUTPATIENT VISIT EST Diagnosis: HYPERLIPIDEMIA NEC/NOS[ICD9: 272.4] Yvette WAYNE JARED CristiGarrett BRANDONMAYE DO [address] [address] CPT-4: 02174 11/26/2014 ([id number]) OFFICE/OUTPATIENT VISIT EST Diagnosis: HYPOTHYROIDISM[ICD9: 244.9] Diagnosis: HYPERLIPIDEMIA NEC/NOS[ICD9: 272.4] Diagnosis: ANEMIA NOS[ICD9: 285.9] Diagnosis: HYPERTENSION[ICD9: 401.9] Yvette MERCADOLINE CristiGarrett KUN AKHTARR DO [address] [address] CPT-4: 76851 08/14/2014 ([id number]) OFFICE/OUTPATIENT VISIT EST Diagnosis: GERD[ICD9: 530.81] Diagnosis: COUGH[ICD10: R05] Yvette MERCADOLINE CristiGarrett BRANDONER DO [address] [address] CPT-4: 59379 07/23/20 14 OFFICE/OUTPATIENT VISIT EST Diagnosis: Heel pain[ICD9: 729.5] Earline SmileyWhitneymargarita MERCADOLINE CristiGarrett KUNGIOVANA R DO [address] [address] CPT-4: 91096 03/09/2014 ([id number]) OFFICE/OUTPATIENT VISIT EST Diagnosis: HYPOTHYROIDISM[ICD9: 244.9] Diagnosis: HYPERLIPIDEMIA NEC/NOS[ICD9: 272.4] Diagnosis: Right medial knee pain[ICD9: 719.46] Yvette MENA CristiGarrett JOANN DO [address] [address] CPT-4: 88431 02/05/2014 ([id number]) OFFICE/OUTPATIENT VISIT EST Diagnosis: HYPOTHYROIDISM[ICD9: 244.9] Diagnosis: HYPERLIPIDEMIA NEC/NOS[ICD9: 272.4] Diagnosis: HYPERTENSION[ICD9: 401.9] Diagnosis: ANEMIA NOS[ICD9: 285.9] Diagnosis: MALAISE AND FATIGUE[ICD9: 780.79] Yvette KONG Zehra DAVID DO [address] [address] CPT-4: 79862 02/04/2014 OFFICE/OUTPATIENT VISIT EST Diagnosis: Right medial knee pain[ICD9: 719.46] Diagnosis: Degeneration, intervertebral disc, lumbar[ICD9: 722.52] Diagnosis: Low back pain[ICD9: 724.2] Earline STUART CristiGarrett LUISITO STEFAN DO [address] [address] CPT-4: 96822 05/12/2013 ([id number]) OFFICE/OUTPATIENT VISIT EST Diagnosis: Lumbar degenerative disc disease[ICD9: 722.52] Diagnosis: Bulging lumbar disc[ICD9: 722.10] Yvette KONG Zehra ColinGarrett JOANN DO [address] [address] CPT-4: 04162 04/07/2013 ([id number]) OFFICE/OUTPATIENT VISIT EST Diagnosis: PAIN, LOWER BACK[ICD9: 724.2] Diagnosis: SPASM OF MUSCLE[ICD9: 728.85] Diagnosis: Lumbar degenerative disc disease[ICD9: 722.52] Yvette STUART CristiGarrett JOANN DO [address] [address] CPT- 4: 48738 03/31/2013 ([id number]) OFFICE/OUTPATIENT VISIT EST Diagnosis: Greater trochanteric bursitis[ICD9: 726.5] Diagnosis: DYSPEPSIA[ICD9: 536.8] Yvette HYLTON R [address] [address] CPT-4: 59517 10/09/2012 OFFICE/OUTPATIENT VISIT EST Diagnosis: CYSTOCELE NOS[ICD9: 618.01] Diagnosis: GERD[ICD9: 530.81] Diagnosis: VAGINITIS[ICD9: 623.5] Yvette Vega [address] [address] CPT-4: 60487 03/28/2012 ([id number]) OFFICE/OUTPATIENT VISIT EST Diagnosis: HYPOTHYROIDISM[ICD9: 244.9] Diagnosis: HYPERLIPIDEMIA NEC/NOS[ICD9: 272.4] Diagnosis: HYPERTENSION[ICD9: 401.9] Diagnosis: ANEMIA NOS[ICD9: 285.9] Yvette MERCADOLINE Michael VILLAVICENCIO [address] [address] CPT-4: 79781 03/18/2012 OFFICE/OUTPATIENT VISIT EST Diagnosis: CERUMEN IMPACTION[ICD9: 380.4] Diagnosis: OTALGIA[ICD9: 388.70] Reyna Eldon YVETTE DAVID [address] [address] CPT-4: 84168 2012 OFFICE/OUTPATIENT VISIT EST Diagnosis: COUGH[ICD9: 786.2] Diagnosis: Cystocele[ICD9: 618.01] Diagnosis: VAGINITIS[ICD9: 623.5] Diagnosis: ROUTINE GYNE EXAM[ICD9: V72.31] Yvette MERCADOLINE CristiGarrett JOANN [address] [address] CPT-4: 95405 09/27/2011 SPECIMEN HANDLING Diagnosis: [ICD9: ] Diagnosis: [ICD9: ] Diagnosis: [ICD9: ] Diagnosis: [ICD9: ] Yvette Taylormaye YVETTE CristiGarrett JOANN [address] [address] CPT-4: 04405 09/27/2011 OFFICE/OUTPATIENT VISIT EST Diagnosis: PHARYNGITIS, ACUTE[ICD9: 462] Diagnosis: URI, ACUTE[ICD9: 465.9] [facility] [address] [place] [id number] CPT-4: 22265 09/13/2011 OFFICE/OUTPATIENT VISIT EST Diagnosis: PHARYNGITIS, ACUTE[ICD9: 462] Diagnosis: COUGH[ICD9: 786.2] [facility] [address] [place] [id number] CPT-4: 92596 08/07/20 11 ([id number]) OFFICE/OUTPATIENT VISIT EST Yvette Rodriguez ORENDER DO [employer] [address] [place] [phone] CPT-4: 48876 01/04/2011 ([id number]) OFFICE/OUTPATIENT VISIT, EST Yvette [facility] [employer] [address] [place] [phone] CPT-4: 99267 02/14/2010 ([id number]) OFFICE/OUTPATIENT VISIT, EST Yvette Rdoriguez ORENDER DO [employer] [address] [place] [phone] CPT-4: 11853 02/07/2010 Plan of Care Planned Activity Notes Codes Status Date Visit Plan: 08/02/2022 Visit Diagnosis Plan: Stress Recommendations: Increase effexor [...] in AM and add singulair at night Dazo5hehag ICD-9 : 786.2 ICD-10 : R05.9 08/02/2022 Patient Education: Singulair- [employer] Coupon [id number] [email or web address] Completed 08/02/2022 Visit Diagnosis Plan: Atrial fibrillation and flutter Discussion: Increase metoprolol to 50mg po BID Increase amiodarone to 200mg po BID Fwup 1month Defers flu shot ICD-9 : 427.31 ICD-10 : I48.91 06/26/2022 Appointment: Yvette David WPtel: [phone] [facility] FOLLOW UP 06/26/2022 Patient Education: metoprolol succinate- OptimizeRX Co upon [id number] https://www.NephroPlus/Wellcentive/resources/getResource/61/o4849e19-428i-4z03-57 Completed 06/26/2022 Referral: Lino Davila [address] [place] [address] [id number] [id number] [place] Referral Completed 05/23/2022 Visit Diagnosis Plan: [...] : J44.9 05/22/2022 Appointment: Yvette David WPtel: [address] [place], [place] [phone] [place] FOLLOW UP 05/22/2022 Referral: Anuj Eng WPtel: #1 [facility] Lior Holm [id number] US Referral Appointment Confirmed 03/08/2022 Appointment: Yvette David WPtel: [address] [place], [place] [phone] US LAB 02/28/2022 Visit Diagnosis Plan: Unspecified [...] : I48.91 02/27/2022 Appointment: Yvette David WPtel: [address] [place], [place] [phone] ACUTE ILLNESS 02/27/2022 Care Plan: Referral Order SNOMED-CT : 30 [id number] Pending 02/27/2022 Care Plan: Referral Order SNOMED-CT : 30 [id number] Pending 02/27/2022 Appointment: Yvette David WPtel: [address] [place], [place] [phone] [place] CANCELED 12/06/2021 Visit Diagnosis Plan: Anxiety Discussion: Improving wi th effexor--wants to keep dose the same ICD-9 : 300.00 ICD-10 : F41.9 11/23/2021 Appointment: Yvette David WPtel: [address] [place], [place] [phone] [place] FOLLOW UP 11/23/2021 Visit Diagnosis Plan: Anxiety Discussion: Restart effe xor XR at 37.5mg daily Stress Reducers Fwup 6 weeks No tremors noted today ICD-9 : 300.00 ICD-10 : F41.9 10/12/2021 Appointment: Yvette David WPtel: [phone] [facility] Lnybxlxhy[place] ACUTE ILLNESS 10/12/2021 Visit Plan: Supportive care. [...] T16.2XXA 08/09/2021 Appointment: Jessica Martina WPtel[facility] [phone] [id number] AC[facility] ILLNESS 08/09/2021 Patient Education: Patient Medication [...] : R73.9 07/28/2021 Appointment: Yvette David WPtel: [address] [place], [place] [phone] FOLLOW UP 07/28/2021 Appointment: Yvette David WPtel: [address] [place], [place] [phone] [place] LAB 07/20/2021 Visit Diagnosis Plan: Grieving Discussion: Restart Eff exor XR 37.5mg po q AM ICD-9 : 309.0 ICD-10 : F43.21 05/12/2021 Visit Diagnosis Plan: Inflamed seborrheic keratosis Di scussion: Cryotherapy as above ICD-9 : 702.11 ICD-10 : L82.0 05/12/2021 Appointment: Yvette David WPtel: [address] [place], [place] [phone] [place] FOLLOW UP 05/12/2021 Appointment: Yvette David WPtel: [address] [place], [place] [phone] [place] assisted patient with opening her eye drops for cataract liane an (km) CANCELED 03/22/2021 Visit Diagnosis Plan: Rhus dermatitis Discussion: Marielena log 40mg IM x1 Can continue TAC ICD-9 : 692.6 ICD-10 : L25.5 03/08/2021 Appointment: Yvette David WPtel: [address] [place], [place] [phone] [place] FOLLOW UP 03/08/2021 Visit Diagnosis Plan: [...] : I48.20 02/03/2021 Appointment: Yvette David WPtel: [address] [place], [place] [phone] US FOLLOW UP 02/03/2021 Appointment: Yvette David WPtel: [address] [place], [place] [phone] US LAB 01/31/2021 Visit Diagnosis Plan: Chronic [...] 380.4 ICD-10 : H61.20 01/04/2021 Appointment: Yvette Davidtel: [address] [place], [place] [phone] ACUTE ILLNESS 01/04/2021 Appointment: Yvette David WPtel: [address] [place], [place] [phone] BP CHECK 10/05/2020 Visit Diagnosis Plan: Chronic atrial fibrillation Disc ussion: Due to symptomatic bradycardia will decrease metoprolol ER to 25mg po BID Bring by BP and pulse readings in 2 weeks ICD-9 : 427.31 ICD-10 : I48.20 09/20/2020 Appointment: Yvette David WPtel: [address] [place], [place] [phone] ACUTE ILLNESS 09/20/2020 Appointment: Yvette David WPtel: [facility] NURSE SERVICES 05/28/2020 Visit Diagnosis Plan: Dysplastic nevus of right lower extremity Discussion: Removal as above and sent to pathology Return in 10 days for suture removal ICD-9 : 216.7 ICD-10 : D23.71 05/19/2020 Appointment: Yvette David WPtel: [facility] FOLLOW UP 05/19/2020 Visit Diagnosis Plan: Diarrhea [...] 05/11/2020 Visit Diagnosis Plan: Encounter for [facility] adult medical examination without abnormal findings Discussion: [...] 427.31 ICD-10 : I48.20 05/11/2020 Appointment: Yvette Davidtel: [phone] [facility] Annual Well Visit [...] : L29.8 01/28/2020 Appointment: Yvette David WPtel: [address] [place], [place] [phone] ACUTE ILLNESS 01/28/2020 Patient Education: hydroxyzine HCl- OptimizeRX Coupon [id number] https://www.NephroPlus/sampleShowClix/resources/getResource/61/f7v7r679-1z5y-7xc8-2d Completed 01/28/2020 Visit Diagnosis Plan: Diarrhea, unspecified [...] R42 01/05/2020 Appointment: Yvette David WPtel: [address] [place], [place] [address] ACUTE ILLNESS 01/05/2020 Appointment: Yvette David WPtel: [address] [place], [place] [phone] US LAB 12/05/2019 Appointment: Yvette David WPtel: [address] [place], [place] [address] US LAB 11/05/2019 Visit Diagnosis Plan: Dizziness [...] : N28.9 10/29/2019 Appointment: Yvette David WPtel: [address] [place], [place] [phone] FOLLOW UP 10/29/2019 Appointment: Yvette David WPtel: [phone] [place] UA 10/23/2019 Appointment: Yvette David WPtel: [phone] [facility] US LAB 10/21/2019 Visit [...] ICD-10 : H61.20 10/20/2019 Appointment: Natalee Gray [address] [place] [address] ACUTE ILLNESS 10/20/2019 Patient Education: meclizine- OptimizeRX Coupon [id number] https://www.Wellcentive.Clipyoo/samplemd/resources/getResource/61/86l49676-364p-91ti-ak Completed 10/20/2019 Appointment: Yvette David WPtel: [phone] [...] : I48.0 07/07/2019 Appointment: Yvette David WPtel: [address] [place], [place] [phone] US FOLLOW UP 07/07/2019 Visit Diagnosis Plan: Essential (primary) hypertension Discussion: Increase HCTZ to 25mg daily Call in 1 week with BP readings ICD-9 : 401.9 ICD-10 : I10 05/01/2019 Appointment: Yvette David WPtel: [address] [place], [place] [phone] US FOLLOW UP 05/01/2019 Visit Diagnosis Plan: Essential (primary) hypertension Discussion: Change metoprolol to 50mg po q AM and 100mg po q PM Add HCTZ 12.5mg po q AM Monitor home BP and pulse Recheck 2 weeks Start Cardiac Rehab or Wellness ICD-9 : 401.1 ICD-10 : I10 04/15/2019 Appointment: Yvette David WPtel: [address] [place], [place] [phone] FOLLOW UP 04/15/2019 Patient Education: hydrochlorothiazide- OptimizeRX Cou ministerio [id number] https://www.NephroPlus/Wellcentive/resources/getResource/61/1k4v3782-s01o-593y-ax Completed 04/15/2019 Appointment: Yvette David WPtel: [address] [place], [place] [phone] US LAB 04/04/2019 Care Plan: US EXAM CHEST US of left breast LOINC : 14882-3 Pending 03/17/2019 Visit Diagnosis Plan: Hypothyroidism, unspecified Disc ussion: Stable ICD-9 : 244.9 ICD-10 : E03.9 11/26/2018 Visit Diagnosis Plan: Paroxysmal atrial fibrillation D iscussion: Stable ICD-9 : 427.31 ICD-10 : I48.0 11/26/2018 Visit Diagnosis Plan: Encounter for [facility] adult medical examination without abnormal findings Discussion: Mediterranean diet Combinati on of cardio and weight bearing exercise Recommend Shingrix Lab and fwup in March ICD-9 : V70.9 ICD-10 : Z00.00 11/26/2018 Visit Diagnosis Plan: Essential (primary) hypertension Discussion: Stable ICD-9 : 401.1 ICD-10 : I10 11/26/2018 Appointment: Yvette David WPtel: [address] [place], [place] [phone] Annual Well Visit 11/26/2018 Appointment: Yvette David WPtel: [address] [place] [address] LAB 10/07/2018 Visit Diagnosis Plan: Presence of [...] H91.92 08/08/2018 Appointment: Yvette David WPtel: [address] [place], [place] [phone] FOLLOW UP 08/08/2018 Appointment: Natalee Gray [address] [place] [address] CANCELED 07/18/2018 Visit Diagnosis Plan: Sudden idiopathic [...] I10 06/25/2018 Appointment: Yvette David WPtel: [phone] [phone] [facility] Follow Up 06/25/2018 Patient Education: Patient Medication Summary Completed 06/25/2018 Appointment: Yvette David WPtel: [phone] [phone] BP CHECK 05/20/2018 Patient [...] : I10 05/10/2018 Appointment: Yvette David WPtel: [facility] FOLLOW UP 05/10/2018 Patient Education: Patient Medication [...] I10 05/03/2018 Appointment: Yvette David WPtel: [phone] [phone] ACUTE ILLNESS 05/03/2018 Patient Education: Patient Medication [...] E03.9 04/22/2018 Appointment: Yvette David WPtel: [phone] [facility] FOLLOW UP 04/22/2018 Patient Education: Patient Medication [...] ICD-10 : B02.9 03/05/2018 Appointment: Natalee Gray [address] [place] [address] ACUTE ILLNESS 03/05/2018 Patient Education: Patient Medication [...] ICD-10 : H61.23 02/19/2018 Appointment: Natalee Gray [address] [place] [address] ACUTE ILLNESS 02/19/2018 Patient Education: Patient Medication Summary Completed 02/19/2018 Appointment: Yvette David WPtel: [address] [place], [place] [phone] LAB 02/13/2018 Patient Education: Patient Medication Summary [...] : G47.33 10/18/2017 Appointment: Yvette David WPtel: [address] [place], [place] [phone] FOLLOW UP 10/18/2017 Patient Education: Patient Medication Summary Completed 10/18/2017 Appointment: Yvette David WPtel: [address] [place], [place] [phone] LAB 10/15/2017 Patient Education: Patient Medication Summary [...] ICD-10 : H61.23 07/24/2017 Appointment: Natalee Gray [address] [place] [address] ACUTE ILLNESS 07/24/2017 Patient Education: Patient Medication Summary Completed 07/24/2017 Referral: Jey Kaye WPtel: [address] [place] [id number] Referral Initiated 07/05/2017 Patient Education: Patient Medication [...] Appointment: Yvette David WPtel: [phone] [facility] FOLLOW UP 06/14/2017 Patient Education: Patient Medication Summary Completed 06/14/2017 Care Plan: Referral Order SNOMED-CT : 30 [id number] Pending 06/14/2017 Visit Plan: ERx for Valtrex, system won' t allow ERx for Prednisone so it is called 10mg 2 po bid x 3 days then 1 po bid x 3 days then 1 po daily x 3 days then 1/2 po daily x 3 days then d/c She declines gabapentin or pain meds Anticipatory guidance discussed. 06/01/2017 Appointment: Demi Rocha WPtel: [phone] [facility] ACUTE ILLNESS 06/01/2017 Patient Education: Patient [...] : D51.8 03/30/2017 Appointment: Yvette David WPtel: [facility] 7/6 lm ~sl FOLLOW UP 03/30/2017 Patient [...] R53.83 01/17/2017 Appointment: Yvette David WPtel: [phone] [facility] 01/16 lm`sl FOLLOW UP 01/17/2017 Patient Education: [...] G62.9 12/18/2016 Visit Diagnosis Plan: Encounter for [facility] adult medical examination without abnormal findings Discussion: Increase activity and contin ue healthy eating Continune using urinary incontinence pads at night for nocturia Reviewed labs ICD-9 : V70.9 ICD-10 : Z00.00 12/18/2016 Appointment: Yvette Davidtel: [facility] 11/13 confirmed ~sl Annual Well Visit 12/18/2016 Patient Education: Patient Medication Summary Completed 12/18/2016 Appointment: Yvette David WPtel: [phone] LAB 12/11/2016 Patient Education: Patient Medication Summary Completed 12/11/2016 Visit Plan: Supportive care. Rest, Fluid s, Tylenol/Motrin prn fever or bodyaches. Notify if worsening symptoms. 11/02/2016 Visit NOS Plan: Plan Notes: Supportive care. Rest, Fluids... 11/02/2016 Visit Diagnosis Plan: URI, ACUTE Discussion: Supportiv e care Flonase Notify if worsens or persists ICD-9 : 465.9 ICD-10 : J06.9 11/02/2016 Visit Diagnosis Plan: Cough Discussion: Delyovanny Day n ever prn ICD-9 : 786.2 ICD-10 : R05 11/02/2016 Appointment: Yvette David WPtel: [facility] US FOLLOW UP 11/02/2016 Appointment: Yvette Davidtel: [address] [place], [place] [phone] US CANCELED 11/02/2016 Patient Education: Patient Medication Summary Completed 11/02/2016 Visit Diagnosis Plan: Acute upper respiratory infectio n, unspecified Discussion: Rx as above Discussed OTC meds and supportive care Notify if not improving so regimen can be changed before her upcoming trip in 2 weeks ICD-9 : 465.9 ICD-10 : J06.9 10/24/2016 Appointment: Yogi Elidia [address] [place] [address] ACUTE ILLNESS 10/24/2016 Patient Education: Patient Medication Summary Completed 10/24/2016 Patient Education: Patient Medication Summary Completed 06/26/2016 Visit Plan: Office dip wnl/BP wnl Does s eem likely to be viral GI illness Supportive care with rxs as above Soft and bland diet Will need bloodwork if not improving 02/07/2016 Appointment: Elidia Calix [address] [place] [address] ACUTE ILLNESS 02/07/2016 Patient Education: Patient Medication Summary Completed 02/07/2016 Patient Education: Patient Medication Summary Completed 07/01/2015 Appointment: Yvette David WPtel: [address] [place], [place] [phone] US LAB 05/27/2015 Patient Education: Patient Medication Summary Completed 05/27/2015 Visit Plan: Trial of Gralise 300mg at be dtima with 4 oz tonic water Sharron's solution soaks to feet Check TSH, Free T4, B12, CMP, HbA1C now Call in 2weeks 05/26/2015 Appointment: Yvette David WPtel: [address] [place], [place] [phone] 05/25/2015 confirmed w patient ACUTE ILLNESS 10/2014 Patient Education: Patient Medication Summary Completed 05/26/2015 Appointment: Yvette David WPtel: [address] [place], [place] [phone] US Stool lab 02/19/2015 Patient Education: Patient Medication Summary Completed 02/19/2015 Appointment: Yvette David WPtel: [address] [place], [place] [phone] US Stool lab 01/20/2015 Patient Education: Patient Medication Summary Completed 01/20/2015 Appointment: Yvette David WPtel: [phone] [phone] US LAB 12/15/2014 Patient Education: Patient Medication Summary Completed 12/15/2014 Appointment: Earline Morris WPtel: [address] [place], [place] [phone] ACUTE ILLNESS 11/30/2014 Patient Education: Patient Medication Summary Completed 11/30/2014 Appointment: Yvette David WPtel: [address] [place], [place] [phone] US LAB 11/26/2014 Patient Education: Patient Medication Summary Completed 11/26/2014 Appointment: Yvette David WPtel: [address] [place], [place] [phone] US LAB 08/14/2014 Patient Education: Patient Medication Summary Completed 08/14/2014 Visit Plan: Defers bone density Proceed with colonoscopy Change omeprazole to protonix Due for fasting lab next month 07/23/2014 Appointment: Yvette David WPtel: [address] [place], [place] [phone] ACUTE ILLNESS 07/23/2014 Patient Education: Patient Medication Summary Completed 07/23/2014 Patient Education: Patient Medication Summary Completed 06/05/2014 Appointment: Earline Morris WPtel: [address] [place], [place] [phone] FOLLOW UP 03/09/2014 Patient Education: Patient Medication Summary Completed 03/09/2014 Appointment: Yvette David WPtel: [address] [place], [place] [phone] ACUTE ILLNESS 02/05/2014 Patient Education: Patient Medication Summary Completed 02/05/2014 Appointment: Yvette David WPtel: [address] [place], [place] [phone] US LAB 02/04/2014 Patient Education: Patient Medication Summary Completed 02/04/2014 Appointment: Earline Morris WPtel: [address] [place] [address] ACUTE ILLNESS 05/12/2013 Patient Education: Patient Medication Summary Completed 05/12/2013 Visit Plan: MRI results discussed Discus sed epidural injections SI joint injection as above Continue Celebrex 200mg daily 04/07/2013 Appointment: Yvette David WPtel: [address] [place], [place] [phone] 04/04 left message FOLLOW UP 04/07/2013 Patient Education: Patient Medication Summary Completed 04/07/2013 Visit Plan: Restart PT and epidural--may need updated MRI of L/S spine Tylenol prn Celebrex 200mg daily 03/31/2013 Appointment: Yvette David WPtel: [address] [place], [place] [phone] ACUTE ILLNESS 03/31/2013 Patient Education: Patient Medication Summary Completed 03/31/2013 Visit Plan: Injection to hip as above Pt will take Vimovo 500/20mg po daily for next week Call in 1wk on both hip and stomach Discussed that likely has arthritis in hip as well 10/09/2012 Appointment: Yvette David WPtel: [address] [place], [place] [phone] 10/08 Left message ACUTE ILLNESS 10/09/2012 Patient Education: Patient Medication Summary Completed 10/09/2012 Visit Plan: See urology--Dr. Hutchinson for cystocele Start Premarin vaginal Cream 1/2 gm vaginally twice weekly then repeat PAP in 3mos Continue nexium for 4 more weeks then start Zantac daily--notify if cough returns 03/28/2012 Appointment: Yvette David WPtel: [address] [place], [place] [phone] PAP 03/28/2012 Patient Education: Patient Medication Summary Completed 03/28/2012 Appointment: Yvette David WPtel: [address] [place], [place] [phone] LAB 03/18/2012 Patient Education: Patient Medication Summary Completed 03/18/2012 Appointment: Reyna Colón WPtel: [address] [place] [address] OFFICE SURGERY 2012 Patient Education: Patient Medication Summary Completed 2012 Visit Plan: Pap done Kegel exercises--de fers meds or surgery eval at this time Mammo due in January DE symbicort 09/27/2011 Appointment: Yvette David WPtel: [address] [place], [place] [phone] FOLLOW UP 09/27/2011 Patient Education: Patient Medication Summary Completed 09/27/2011 Visit Plan: Symbicort 160/4.5 2 p BID 09/13/2011 Appointment: Yvette David WPtel: [address] [place], [place] [phone] ACUTE ILLNESS 09/13/2011 Patient Education: Patient Medication Summary Completed 09/13/2011 Visit Plan: Cefdinir and medrol dose pac k. Discussed if no improvement by Sunday will obtain chest x-ray and CBC with mycoplasma. 08/07/2011 Appointment: Reyna Colón WPtel: [address] [place], [place] [phone] ACUTE ILLNESS 08/07/2011 Patient Education: Patient Medication Summary Completed 08/07/2011 Appointment: Yvette David WPtel: [address] [place], [place] [phone] 07/13/2011 Patient Education: Patient Medication Summary Completed 07/13/2011 Appointment: Yvette David WPtel: [address] [place], [place] [phone] LAB 03/13/2011 Patient Education: Patient Medication Summary Completed 03/13/2011 Appointment: Yvette David WPtel: [address] [place], [place] [phone] US BP CHECK 02/06/2011 Patient Education: Patient Medication Summary Completed 02/06/2011 Appointment: Yvette David WPtel: [address] [place], [place] [phone] BP CHECK 01/20/2011 Patient Education: Patient Medication Summary Completed 01/20/2011 Appointment: Yvette David WPtel: [address] [place], [place] [phone] BP CHECK 01/12/2011 Patient Education: Patient Medication Summary Completed 01/12/2011 Visit Plan: Increase Synthroid to 75mcg po daily Increase fish oil to BID Start daily Toprol XL 12.5mg BP check in 1wk TSH and Free T4 in 2mos. 01/04/2011 Appointment: Yvette David WPtel: [address] [place], [place] [phone] FOLLOW UP 01/04/2011 Patient Education: Patient Medication Summary Completed 01/04/2011 Appointment: Yvette David WPtel: [address] [place], [place] [phone] LAB 12/16/2010 Patient Education: Patient Medication Summary Completed 12/16/2010 Visit Plan: Start PT May need MRI 02/14/2010 Appointment: Yvette David WPtel: [address] [place], [place] [phone] OFFICE SURGERY 02/14/2010 Patient Education: Patient Medication [...] Reyna Col[facility]Ptel: [phone] [facility] [facility] 02/07/2010 Patient Education: Patient Medication Summary Completed 02/07/2010 Appointment: Yvette David WPtel: [phone] [facility] [facility] 12/22/2009 Patient Education: Patient Medication Summary [...] data not found Advance Directives Filename Date [id number] 06/03/2012
--- OUTSIDE RECORDS SUMMARY | 2022-08-14 14:06 | XMS REPORT | CCD ---
Author Author Lucille David D.O. Organization [facility] [place] Address [address] [place] [address] Phone Care Team Providers Care Patient Transportation Driver Name Role Phone Yvette David D.O., PP Unavailable CCM Unavailable Summary Purpose Interface Exchange Insurance Providers Payer name Policy type / Coverage type Covered democrat ID Effective Begin Date Effective End Date WPS MEDICARE PART B [place] Medicare Part B [id number] Unknown Cigna Medicare Part B [id number] Unknown Family History Family History data not found Social History Social History Element Codes Description Effective Dates Tobacco history SNOMED CT: [id number] Has never smoked or chewed tobacco 05/26/2015 [...] flutter ICD-10: I48.91 ICD-9: 427.31 02/27/2022 Active Chronic atrial fibrillation ICD-10: I48.20 ICD-9: 427.31 10/29/2019 Active Essential hypertension ICD-10: I10 ICD-9: 401.9 12/11/2016 Active Mild chronic obstructive pulmonary disease ICD-10: J44 .9 ICD-9: 496 05/22/2022 Active Skin cancer of arm ICD-10: C44.601 ICD-9: 173.60 05/22/2022 Active Anemia, unspecified ICD-10: D64.9 ICD-9: 285.9 05/05/2020 Active Essential (primary) hypertension ICD-10: I10 ICD-9: 401.1 04/22/2018 Active Hyperglycemia, unspecified ICD-10: R73.9 ICD-9: 790.29 [...] G62.9 ICD-9: 355.9 12/18/2016 Active 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.899 ICD-9: [...] Start Date Stop Date Status Fill Instructions amiodarone 200 mg tablet RxNorm: 600593 Take 1 Tablet(s) Oral t wo times a day 06/26/2022 12/22/2022 Active metoprolol succinate ER 50 mg tablet,extended release 24 hr RxNorm: 582026 1 Tablet(s) Oral two times a day 06/26/2022 12/22/2022 Active venlafaxine ER 37.5 mg capsule,extended release 24 hr RxNorm : 422642 Take 1 Capsule(s) Oral QAM 06/16/2022 12/12/2022 Active simvastatin 20 mg tablet RxNorm: 494742 Take 1 Tablet(s) Oral QD 11/21/2022 Active Xarelto 20 mg tablet RxNorm: 9184392 Take 1 Tablet(s) Oral QD 05/22 No Stop Date Active amiodarone 200 mg tablet RxNorm: 934293 Take 1 Tablet(s) Oral QD 06/25/2022 Inactive Euthyrox 88 mcg tablet RxNorm: 943263 TAKE 1 TABLET BY MOUTH ONCE DAILY - DUE FOR UPDATED LAB 05/21/2022 08/18/2022 Active Breztri Aerosphere 160 mcg-9mcg-4.8mcg/actuation HFA a erosol inhaler RxNorm: 2078492 2 Puff(s) Inhalation two times a day in the morning an d evening 05/01/2022 05/01/2022 Inactive Breztri Aerosphere 160 mcg-9mcg-4.8mcg/actuation HFA a erosol inhaler RxNorm: 5083561 2 Puff(s) Inhalation two times a day in the morning an d evening 05/01/2022 05/30/2022 Inactive diltiazem CD 120 mg capsule,extended release 24 hr RxNorm: 8 71655 TAKE 1 CAPSULE BY MOUTH TWICE DAILY REPLACES 180MG DOSE 04/17/2022 10/13/2022 Active pantoprazole 40 mg tablet,delayed release RxNorm: 250921 Take 1 Tablet(s) Oral QD 04/17/2022 10/13/2022 Active Xarelto 10 mg tablet RxNorm: 9273912 Take 1 Tablet(s) Oral QD 03/2105/21/2022 Inactive simvastatin 20 mg tablet RxNorm: 073331 Take 1 Tablet(s) Oral QD 02/23/2022 Inactive levothyroxine 88 mcg tablet RxNorm: 656815 Take 1 table t by mouth once daily due for updated lab 02/22/2022 02/22/2022 Inactive Cartia XT 120 mg capsule,extended release RxNorm: 127693 TAKE 1 CAPSULE BY MOUTH TWICE DAILY REPLACES 180MG DOSE 01/16/2022 01/16/2022 Inactive pantoprazole 40 mg tablet,delayed release RxNorm: 376823 Take 1 Oral QD 12/15/2021 12/15/2021 Inactive scopolamine 1 mg over 3 days transdermal patch RxNorm: 25514 2 Take 1 Application Transdermal Q3D as needed 11/23/2021 06/25/2022 Inactive Effexor XR 37.5 mg capsule,extended release RxNorm: 993225 1 Capsule(s) Oral QAM 11/23/2021 11/23/2021 Inactive levothyroxine 88 mcg tablet RxNorm: 006302 Take 1 tablet by alvaro once daily 11/21/2021 11/21/2021 Inactive diltiazem CD 120 mg capsule,extended release 24 hr RxNorm: 8 62956 TAKE 1 CAPSULE BY MOUTH TWICE DAILY REPLACES 180MG DOSE 10/17/2021 10/17/2021 Inactiv e pantoprazole 40 mg tablet,delayed release RxNorm: 403726 Take 1 Tablet(s) Oral QD 10/17/2021 10/17/2021 Inactive Effexor XR 37.5 mg capsule,extended release RxNorm: 622865 1 Capsule(s) Oral QAM 10/12/2021 11/22/2021 Inactive Xarelto 10 mg tablet RxNorm: 7284812 Take 1 Tablet(s) Oral QD 09/1409/14/2021 Inactive metoprolol succinate ER 50 mg tablet,extended release 24 hr RxNorm: 368540 Take 1/2 (one-half) tablet by mouth twice daily 09/14/2021 03/12/2022 Inact beto simvastatin 20 mg tablet RxNorm: 679010 Take 1 Tablet(s) Oral QD 08/30/2021 Inactive levothyroxine 88 mcg tablet RxNorm: 888823 Take 1 tablet by alvaro once daily 08/28/2021 08/28/2021 Inactive fluticasone propionate 50 mcg/actuation nasal spray,suspensi on RxNorm: 0204697 Take 1 Harrison Nasal QD in each nostrilas needed 08/09/2021 09/07/2021 I nactive pantoprazole 40 mg tablet,delayed release RxNorm: 021552 Take 1 Tablet(s) Oral QD 07/19/2021 07/19/2021 Inactive Xarelto 10 mg tablet RxNorm: 3616664 Take 1 Tablet(s) Oral QD 06/2906/29/2021 Inactive Euthyrox 88 mcg tablet RxNorm: 762080 Take 1 tablet by mouth on ce daily 05/24/2021 05/24/2021 Inactive Effexor XR 37.5 mg capsule,extended release RxNorm: 707375 1 Capsule(s) Oral QAM 05/12/2021 07/27/2021 Inactive Xarelto 10 mg tablet RxNorm: 3284058 Take [address] [facility] once daily Take 1 Tablet(s) Oral QD 04/19/2021 04/19/2021 Inactive metoprolol succinate ER 50 mg tablet,extended release 24 hr RxNorm: 377613 1/2 Tablet(s) Oral two times a day 04/12/2021 04/12/2021 Inactive d ecrease in dose of 1/2 tablet twice daily metoprolol succinate ER 50 mg tablet,extended release 24 hr RxNorm: 848420 Take 1/2 (one-half) tablet by mouth twice daily 04/12/2021 10/11/2021 Inact beto simvastatin 20 mg tablet RxNorm: 911453 Take 1 Tablet(s) Oral QD 03/07/2021 Inactive prednisone 10 mg tablet RxNorm: 796146 Take 1 Tablet(s) Oral tw o times a day 03/01/2021 03/01/2021 Inactive triamcinolone acetonide 0.1 % topical cream RxNorm: 5484219 Apply 1 Application Topical two times a day 03/01/2021 03/01/2021 Inactive prednisone 10 mg tablet RxNorm: 520862 Take 1 Tablet(s) Oral tw o times a day 03/01/2021 03/03/2021 Inactive triamcinolone acetonide 0.1 % topical cream RxNorm: 8592851 Apply 1 Application Topical two times a day 03/01/2021 03/01/2021 Inactive Euthyrox 88 mcg tablet RxNorm: 627148 Take 1 tablet by mouth on ce daily 02/22/2021 02/22/2021 Inactive Effexor XR 37.5 mg capsule,extended release RxNorm: 033186 1 Capsule(s) Oral QAM 02/03/2021 02/02/2021 Inactive Effexor XR 37.5 mg capsule,extended release RxNorm: 595716 1 Capsule(s) Oral QAM 02/03/2021 04/03/2021 Inactive simvastatin 20 mg tablet RxNorm: 549804 Take 1 tablet by mouth once daily 1 01/25/2021 01/25/2021 Inactive Cardizem CD 120 mg capsule,extended release RxNorm: 555875 1 Capsule(s) Oral two times a day replaces 180mg dose 01/19/2021 01/19/2021 Inactive Protonix 40 mg tablet,delayed release RxNorm: 533570 1 Tablet(s ) Oral QD 01/17/2021 01/17/2021 Inactive Effexor XR 37.5 mg capsule,extended release RxNorm: 974535 1 Capsule(s) Oral QAM 01/04/2021 02/02/2021 Inactive scopolamine 1 mg over 3 days transdermal patch RxNorm: 84387 2 1 Application Transdermal behind ear for vertigo 01/04/2021 01/03/2021 Inactive scopolamine 1 mg over 3 days transdermal patch RxNorm: 01590 2 1 Application Transdermal behind ear for vertigo 01/04/2021 01/04/2021 Inactive metoprolol succinate ER 50 mg tablet,extended release 24 hr RxNorm: 004509 1/2 Tablet(s) Oral two times a day 12/29/2020 12/28/2020 Inactive metoprolol succinate ER 50 mg tablet,extended release 24 hr RxNorm: 912053 1/2 Tablet(s) Oral two times a day 12/29/2020 12/29/2020 Inactive d briaease in dose of 1/2 tablet twice daily Xarelto 10 mg tablet RxNorm: 0802934 Take 1 tablet by mouth once daily 12/29/2020 03/29/2021 Inactive Xarelto 10 mg tablet RxNorm: 3823015 Take 1 tablet by mouth once daily 11/26/2020 12/28/2020 Inactive simvastatin 20 mg tablet RxNorm: 507717 Take 1 tablet by mouth once daily 11/26/2020 01/24/2021 Inactive Synthroid 88 mcg tablet RxNorm: 800847 Take 1 tablet by mouth o nce daily 10/21/2020 10/21/2020 Inactive simvastatin 20 mg tablet RxNorm: 629865 Take 1 tablet by mouth once daily 09/30/2020 11/25/2020 Inactive Xarelto 10 mg tablet RxNorm: 8343879 Take 1 tablet by mouth once daily 08/26/2020 11/23/2020 Inactive metoprolol succinate ER 50 mg tablet,extended release 24 hr RxNorm: 730617 1 Tablet(s) Oral two times a day 08/05/2020 11/03/2020 Inactive simvastatin 20 mg tablet RxNorm: 464536 Take 1 tablet by mouth once daily 07/30/2020 09/27/2020 Inactive Synthroid 88 mcg tablet RxNorm: 436869 Take 1 tablet by mouth o nce daily 07/27/2020 10/20/2020 Inactive Protonix 40 mg tablet,delayed release RxNorm: 998745 1 Tablet(s ) Oral QD 07/26/2020 10/24/2020 Inactive Xarelto 10 mg tablet RxNorm: 5039966 1 Tablet(s) Oral QD 06/03/2020 1 10/26/2019 Inactive Cardizem CD 120 mg capsule,extended release RxNorm: 339920 1 Capsule(s) Oral two times a day replaces 180mg dose 05/11/2020 11/07/2020 Inactive Pradaxa 75 mg capsule RxNorm: 1958817 1 Capsule(s) Oral two time s a day 05/11/2020 05/11/2020 Inactive meclizine 25 mg tablet RxNorm: 022852 1 Tablet(s) Oral every ni ght at bedtime 05/05/2020 10/11/2021 Inactive simvastatin 20 mg tablet RxNorm: 688219 Take 1 tablet by mouth once daily 05/04/2020 05/10/2020 Inactive simvastatin 20 mg tablet RxNorm: 204673 TAKE 1 TABLET BY MOUTH ONCE DAILY 04/29/2020 09/19/2020 Inactive Synthroid 88 mcg tablet RxNorm: 929118 TAKE 1 TABLET BY MOUTH O NCE DAILY 04/20/2020 07/18/2020 Inactive diltiazem CD 180 mg capsule,extended release 24 hr RxNorm: 8 81273 TAKE 1 CAPSULE BY MOUTH TWICE DAILY 04/05/2020 05/10/2020 Inactive simvastatin 20 mg tablet RxNorm: 085471 TAKE 1 TABLET BY MOUTH ONCE DAILY 02/24/2020 04/23/2020 Inactive aspirin 325 mg tablet RxNorm: 484678 1 Tablet(s) Oral QD 02/11/2020 0 05/10/2020 Inactive hydroxyzine HCl 10 mg tablet RxNorm: 817679 1 Tablet(s) Oral th ree times a day 01/28/2020 05/10/2020 Inactive diltiazem CD 180 mg capsule,extended release 24 hr RxNorm: 8 04884 TAKE 1 CAPSULE BY MOUTH TWICE DAILY 01/19/2020 04/04/2020 Inactive spironolactone 25 mg tablet RxNorm: 804448 1 Tablet(s) Oral QOD replaces Triam/HCTZ 01/15/2020 01/14/2020 Inactive spironolactone 25 mg tablet RxNorm: 100730 1 Tablet(s) Oral QOD replaces Triam/HCTZ 01/15/2020 01/26/2020 Inactive prednisone 20 mg tablet RxNorm: 818008 1 Tablet(s) Oral QD 01/12/20 20 01/14/2020 Inactive prednisone 20 mg tablet RxNorm: 235249 1 Tablet(s) Oral QD 01/12/20 20 01/11/2020 Inactive Benadryl 25 mg capsule RxNorm: 8977098 1 Capsule(s) Oral every n ight at bedtime 01/08/2020 05/10/2020 Inactive Pepcid 20 mg tablet RxNorm: 366948 1 Tablet(s) Oral two times a day 01/08/2020 07/25/2020 Inactive Sarna Original 0.5 %-0.5 % lotion RxNorm: 714099 Topical 0 10/11/2021 Inactive Zyrtec 10 mg tablet RxNorm: 4350871 1 Tablet(s) Oral QAM 01/08/2020 0 05/10/2020 Inactive metoprolol succinate ER 50 mg tablet,extended release 24 hr RxNorm: 034596 1 Tablet(s) Oral two times a day 01/05/2020 04/04/2020 Inactive Protonix 40 mg tablet,delayed release RxNorm: 648192 TA KE 1 TABLET BY MOUTH ONCE DAILY 12/29/2019 05/10/2020 Inactive triamterene 37.5 mg-hydrochlorothiazide 25 mg tablet RxNorm: 649203 TAKE 1/2 (ONE-HALF) TABLET BY MOUTH EVERY OTHER DAY 12/24/2019 01/14/2020 Inact beto triamterene 37.5 mg-hydrochlorothiazide 25 mg tablet RxNorm: 286794 1/2 Tablet(s) Oral QD 12/12/2019 01/26/2020 Inactive diltiazem CD 180 mg capsule,extended release 24 hr RxNorm: 8 88292 TAKE 1 CAPSULE BY MOUTH TWICE DAILY 12/03/2019 01/18/2020 Inactive Eliquis 2.5 mg tablet RxNorm: 7114512 1 Tablet(s) Oral two times a day 11/25/2019 02/10/2020 Inactive simvastatin 20 mg tablet RxNorm: 338050 TAKE 1 TABLET BY MOUTH ONCE DAILY 11/25/2019 02/22/2020 Inactive triamterene 37.5 mg-hydrochlorothiazide 25 mg tablet RxNorm: 172585 1/2 Tablet(s) Oral QOD 11/06/2019 12/11/2019 Inactive triamterene 37.5 mg-hydrochlorothiazide 25 mg tablet RxNorm: 324490 1/2 Tablet(s) Oral QD 10/22/2019 10/28/2019 Inactive meclizine 25 mg tablet RxNorm: 725806 1 Tablet(s) Oral every ni ght at bedtime 10/20/2019 11/19/2019 Inactive Synthroid 88 mcg tablet RxNorm: 492152 TAKE 1 TABLET BY MOUTH O NCE DAILY 10/20/2019 10/21/2019 Inactive scopolamine 1 mg over 3 days transdermal patch RxNorm: 47772 2 1 Unit Dose Transdermal Q72H for vertigo 10/14/2019 01/04/2020 Inactive scopolamine 1 mg over 3 days transdermal patch RxNorm: 98868 2 1 Unit Dose Transdermal Q72H for vertigo 10/14/2019 10/14/2019 Inactive Celebrex 200 mg capsule RxNorm: 265605 TAKE 1 CAPSULE BY MOUTH ONCE DAILY 10/12/2019 10/28/2019 Inactive triamterene 37.5 mg-hydrochlorothiazide 25 mg tablet RxNorm: 564649 1 Tablet(s) Oral QAM 10/06/2019 10/21/2019 Inactive diltiazem CD 180 mg capsule,extended release 24 hr RxNorm: 8 73139 1 Capsule(s) Oral two times a day 10/01/2019 11/29/2019 Inactive simvastatin 20 mg tablet RxNorm: 285837 TAKE 1 TABLET BY MOUTH ONCE DAILY 10/01/2019 10/01/2019 Inactive Patient will need to have fasting labs done before next refill Protonix 40 mg tablet,delayed release RxNorm: 678310 TA KE 1 TABLET BY MOUTH ONCE DAILY 09/28/2019 12/26/2019 Inactive diltiazem CD 180 mg capsule,extended release 24 hr RxNorm: 8 67700 1 Capsule(s) Oral two times a day 08/11/2019 08/10/2019 Inactive diltiazem CD 180 mg capsule,extended release 24 hr RxNorm: 8 01758 1 Capsule(s) Oral two times a day 08/11/2019 09/30/2019 Inactive diltiazem CD 120 mg capsule,extended release 24 hr RxNorm: 8 40741 1 Capsule(s) Oral two times a day 07/23/2019 08/10/2019 Inactive Celebrex 200 mg capsule RxNorm: 084802 1 Capsule(s) Oral QD 019 07/08/2019 Inactive Celebrex 200 mg capsule RxNorm: 566370 1 Capsule(s) Oral QD 019 10/07/2019 Inactive diltiazem CD 120 mg capsule,extended release 24 hr RxNorm: 8 19448 1 Capsule(s) Oral QAM 07/07/2019 07/22/2019 Inactive Eliquis 2.5 mg tablet RxNorm: 0109208 1 Tablet(s) Oral two times a day 07/07/2019 11/04/2019 Inactive metoprolol succinate ER 50 mg tablet,extended release 24 hr RxNorm: 863972 1 Tablet(s) Oral QAM and 2 tablets in the evening 06/30/2019 08/05/2020 Inactive hydrochlorothiazide 25 mg tablet RxNorm: 023294 1 Tablet(s) PO QD 1 07/06/2019 Inactive hydrochlorothiazide 25 mg tablet RxNorm: 353365 1 Tablet(s) PO QD 0 05/08/2019 05/07/2019 Inactive patient needs to follow up i n 2 months and continue BP readings at home hydrochlorothiazide 25 mg tablet RxNorm: 470039 1 Tablet(s) PO QD 0 05/08/2019 06/25/2019 Inactive patient needs to follow up i n 2 months and continue BP readings at home metoprolol succinate ER 50 mg tablet,extended release 24 hr RxNorm: 251957 1 Tablet(s) PO QAM and 2 tablets in the evening 05/08/2019 06/29/2019 In active hydrochlorothiazide 12.5 mg tablet RxNorm: 200184 1 Tablet(s) PO QA M 04/15/2019 05/07/2019 Inactive Synthroid 88 mcg tablet RxNorm: 118925 TAKE 1 TABLET BY MOUTH O NCE DAILY 04/14/2019 10/19/2019 Inactive Protonix 40 mg tablet,delayed release RxNorm: 743786 TA KE 1 TABLET BY MOUTH ONCE DAILY 03/24/2019 09/27/2019 Inactive simvastatin 20 mg tablet RxNorm: 825277 TAKE 1 TABLET BY MOUTH ONCE DAILY 03/24/2019 09/30/2019 Inactive losartan 100 mg tablet RxNorm: 529498 1/2 Tablet(s) PO QD 2019 04/14/2019 Inactive Cozaar 50 mg tablet RxNorm: 865789 1 Tablet(s) PO QHS 01/28/201903/25 Inactive Celebrex 200 mg capsule RxNorm: 348007 TAKE 1 CAPSULE BY MOUTH ONCE DAILY 01/10/2019 07/08/2019 Inactive Protonix 40 mg tablet,delayed release RxNorm: 761364 TA KE 1 TABLET BY MOUTH ONCE DAILY 12/23/2018 03/23/2019 Inactive metoprolol succinate ER 50 mg tablet,extended release 24 hr RxNorm: 915479 1.5 Tablet(s) PO BID 12/03/2018 04/14/2019 Inactive Synthroid 88 mcg tablet RxNorm: 814070 1 Tablet(s) PO QD 10/24/2018 0 04/13/2019 Inactive simvastatin 20 mg tablet RxNorm: 862874 1 Tablet(s) PO QD 09/27/2018 12/25/2018 Inactive simvastatin 20 mg tablet RxNorm: 170085 1 Tablet(s) PO QD 09/26/2018 09/26/2018 Inactive Cozaar 50 mg tablet RxNorm: 485983 1 Tablet(s) PO QHS 09/09/20180 02/2019 Inactive Cozaar 50 mg tablet RxNorm: 315303 1 Tablet(s) PO QHS 09/09/201808/24 Inactive metoprolol succinate ER 50 mg tablet,extended release 24 hr RxNorm: 801410 1.5 Tablet(s) PO BID 09/02/2018 11/30/2018 Inactive Cozaar 50 mg tablet RxNorm: 592485 1 Tablet(s) PO QHS 05/24/201808/24 Inactive Cozaar 25 mg tablet RxNorm: 785139 1 Tablet(s) PO QAM 05/10/201804/25 Inactive clonidine HCl 0.1 mg tablet RxNorm: 316757 1 Tablet(s) PO TID as needed for BP greater than 160/95 05/10/2018 05/20/2018 Inactive betamethasone dipropionate 0.05 % topical cream RxNorm: 2389 20 1 Application TOP BID 05/06/2018 11/25/2018 Inactive prednisone 20 mg tablet RxNorm: 351082 1 Tablet(s) PO QD 05/06/2018 0 05/05/2018 Inactive prednisone 20 mg tablet RxNorm: 929287 1 Tablet(s) PO QD 05/06/2018 0 05/10/2018 Inactive metoprolol succinate ER 50 mg tablet,extended release 24 hr RxNorm: 475350 1.5 Tablet(s) PO BID 05/06/2018 09/01/2018 Inactive Flonase Allergy Relief 50 mcg/actuation nasal spray,suspensi on RxNorm: 2342903 2 Harrison NASAL QHS 05/03/2018 11/25/2018 Inactive Celebrex 200 mg capsule RxNorm: 092858 TAKE ONE CAPSULE BY MOUT H ONCE DAILY 04/30/2018 05/02/2018 Inactive Celebrex 200 mg capsule RxNorm: 481561 1 Capsule(s) PO QD TAKE ONE CAPSULE BY MOUTH ONCE DAILY 04/30/2018 05/02/2018 Inactive Synthroid 88 mcg tablet RxNorm: 845045 1 Tablet(s) PO QD 03/12/2018 1 11/08/2017 Inactive acyclovir 5 % topical ointment RxNorm: 041541 1 Unit Dose TOP Q 6H as needed 03/05/2018 11/25/2018 Inactive Protonix 40 mg tablet,delayed release RxNorm: 461498 1 Tablet(s ) PO QD 12/17/2017 12/22/2018 Inactive simvastatin 20 mg tablet RxNorm: 334602 TAKE ONE TABLET BY MOUT H ONCE DAILY 12/17/2017 09/27/2018 Inactive Celebrex 200 mg capsule RxNorm: 728404 TAKE ONE CAPSULE BY MOUT H ONCE DAILY 10/30/2017 04/29/2018 Inactive Synthroid 88 mcg tablet RxNorm: 464699 1 Tablet(s) PO QD 09/19/2017 0 03/12/2018 Inactive Synthroid 88 mcg tablet RxNorm: 258757 1 Tablet(s) PO QD Needs updated labs 09/19/2017 10/24/2018 Inactive Synthroid 88 mcg tablet RxNorm: 699564 1 Tablet(s) PO QD 06/20/2017 1 11/18/2016 Inactive simvastatin 20 mg tablet RxNorm: 553843 1 Tablet(s) PO QD 06/15/2017 09/12/2017 Inactive simvastatin 20 mg tablet RxNorm: 656861 1 Tablet(s) PO QD 06/15/2017 06/14/2017 Inactive metoprolol succinate ER 25 mg tablet,extended release 24 hr RxNorm: 873562 1 Tablet(s) PO QD 06/14/2017 07/23/2017 Inactive Valtrex 1 gram tablet RxNorm: 750267 1 Tablet(s) PO TID 06/01/2017 Inactive Celebrex 200 mg capsule RxNorm: 832279 1 Capsule(s) PO QD 05/01/2017 10/27/2017 Inactive Toprol XL 25 mg tablet,extended release RxNorm: 690095 1/2 Tabl et(s) PO QD 04/12/2017 06/13/2017 Inactive simvastatin 20 mg tablet RxNorm: 946821 1 Tablet(s) PO QD 03/19/2017 06/14/2017 Inactive Synthroid 88 mcg tablet RxNorm: 612249 1 Tablet(s) PO QD 03/14/2017 0 06/20/2017 Inactive aspirin 81 mg chewable tablet RxNorm: 683895 1 Tablet(s) PO QD 12/2404/21/2018 Inactive simvastatin 20 mg tablet RxNorm: 081967 TAKE ONE TABLET BY MOUT H ONCE DAILY 12/19/2016 03/19/2017 Inactive gabapentin 300 mg capsule RxNorm: 247023 1 Capsule(s) PO QHS 201603/29/2017 Inactive Protonix 40 mg tablet,delayed release RxNorm: 881105 TA KE ONE TABLET BY MOUTH ONCE DAILY 12/14/2016 12/08/2017 Inactive Flonase Allergy Relief 50 mcg/actuation nasal spray,suspensi on RxNorm: 1220535 2 Harrison NASAL QHS 11/02/2016 12/17/2016 Inactive clotrimazole-betamethasone 1 %-0.05 % topical cream RxNorm: 381360 1 Application TOP BID 11/02/2016 11/01/2016 Inactive clotrimazole-betamethasone 1 %-0.05 % topical cream RxNorm: 507942 1 Application TOP BID 11/02/2016 12/17/2016 Inactive Tessalon Perles 100 mg capsule RxNorm: 134374 1 Capsule(s) PO TID 0 11/02/2016 12/17/2016 Inactive amoxicillin 500 mg tablet RxNorm: 106782 1 Tablet(s) PO TID 017 11/01/2016 Inactive Toprol XL 25 mg tablet,extended release RxNorm: 479697 TAKE ONE-HALF TABLET BY MOUTH ONCE DAILY 10/19/2016 04/12/2017 Inactive Toprol XL 25 mg tablet,extended release RxNorm: 321420 1/2 Tablet(s) PO QD Due for routine fasting labs and appointment 10/19/2016 01/16/2017 Inactiv e gabapentin 600 mg tablet RxNorm: 919681 1 Tablet(s) PO QHS 07/24/20 16 12/17/2016 Inactive gabapentin 600 mg tablet RxNorm: 177774 TAKE ONE TABLET BY MOUT H AT BEDTIME 07/24/2016 07/23/2016 Inactive simvastatin 20 mg tablet RxNorm: 261697 TAKE ONE TABLET BY MOUT H ONCE DAILY 06/15/2016 12/11/2016 Inactive Celebrex 200 mg capsule RxNorm: 243454 1 Capsule(s) PO QD 05/10/2016 05/01/2017 Inactive Celebrex 200 mg capsule RxNorm: 354341 1 Capsule(s) PO QD 05/09/2016 05/09/2016 Inactive Synthroid 88 mcg tablet RxNorm: 664275 Tablet(s) 1 Tablet(s) PO QD 03/21/2016 09/16/2016 Inactive Synthroid 88 mcg tablet RxNorm: 480904 1 Tablet(s) PO QD 03/20/2016 0 03/20/2016 Inactive simvastatin 20 mg tablet RxNorm: 303068 TAKE ONE TABLET BY MOUT H ONCE DAILY 03/06/2016 06/03/2016 Inactive meclizine 25 mg tablet RxNorm: 288718 1 Tablet(s) PO TID as nee ded dizziness 02/07/2016 12/17/2016 Inactive Zofran ODT 4 mg disintegrating tablet RxNorm: 053299 1 Tablet(s) PO Q6H as needed for nausea 02/07/2016 12/17/2016 Inactive gabapentin 600 mg tablet RxNorm: 799980 TAKE ONE TABLET BY MOUT H AT BEDTIME 01/20/2016 07/17/2016 Inactive Synthroid 88 mcg tablet RxNorm: 530720 1 Tablet(s) PO QD 12/27/2015 0 03/19/2016 Inactive simvastatin 20 mg tablet RxNorm: 824815 1 Tablet(s) PO QD 12/06/2015 03/04/2016 Inactive Protonix 40 mg tablet,delayed release RxNorm: 588638 1 Tablet(s ) PO QD 12/06/2015 12/13/2016 Inactive Celebrex 200 mg capsule RxNorm: 453457 1 Capsule(s) PO QD 11/03/2015 05/10/2016 Inactive Celebrex 200 mg capsule RxNorm: 495422 1 Capsule(s) PO QD 11/03/2015 11/02/2015 Inactive simvastatin 20 mg tablet RxNorm: 219337 1 Tablet(s) PO QD 09/06/2015 12/04/2015 Inactive Gralise 600 mg tablet,extended release RxNorm: 3504216 1 Tablet( s) PO QD 08/23/2015 10/18/2015 Inactive Synthroid 88 mcg tablet RxNorm: 518675 1 Tablet(s) PO QD 06/30/2015 0 09/27/2015 Inactive simvastatin 20 mg tablet RxNorm: 936912 1 Tablet(s) PO QD 06/07/2015 09/04/2015 Inactive Synthroid 88 mcg tablet RxNorm: 376840 1 Tablet(s) PO QD 06/07/2015 1 Inactive Celebrex 200 mg capsule RxNorm: 921265 1 Capsule(s) PO QD 06/07/2015 11/02/2015 Inactive Protonix 40 mg tablet,delayed release RxNorm: 311350 1 Tablet(s ) PO QD 06/07/2015 12/03/2015 Inactive Toprol XL 25 mg tablet,extended release RxNorm: 195255 1/2 Tabl et(s) PO QD 04/13/2015 10/09/2015 Inactive [SAVINGS FOR UNINSUR ED PATIENTS -- BIN:[id number], PCN: [id number], Group: [id number], ID# [id number], Process claim through [employer], for questions: . THIS IS NOT INSURANCE.] Synthroid 88 mcg tablet RxNorm: 439025 1 Tablet(s) PO Q D TAKE ONE TABLET BY MOUTH ONCE DAILY 03/29/2015 06/30/2015 Inactive Celebrex 200 mg capsule RxNorm: 047937 1 Capsule(s) PO QD 03/22/2015 06/06/2015 Inactive Celebrex 200 mg capsule RxNorm: 515267 1 Capsule(s) PO QD 02/22/2015 03/21/2015 Inactive Celebrex 200 mg capsule RxNorm: 860883 1 Capsule(s) PO QD 01/21/2015 02/21/2015 Inactive Synthroid 88 mcg tablet RxNorm: 467580 1 Tablet(s) PO Q D TAKE ONE TABLET BY MOUTH ONCE DAILY 12/21/2014 03/29/2015 Inactive meloxicam 15 mg tablet RxNorm: 429026 1 Tablet(s) PO QD 12/09/2014 Inactive [SAVINGS FOR NON-COVERED DRUGS -- BIN:[id number], PCN: [id number], Group: [id number], ID# [id number], Questions: . THIS IS NOT INSURANCE.] Protonix 40 mg tablet,delayed release RxNorm: 514587 1 Tablet(s ) PO QD 12/08/2014 06/05/2015 Inactive Protonix 40 mg tablet,delayed release RxNorm: 596318 1 Tablet(s ) PO QD 12/07/2014 12/07/2014 Inactive simvastatin 20 mg tablet RxNorm: 463058 TAKE ONE TABLET BY MOUT H ONCE DAILY 11/30/2014 05/28/2015 Inactive clotrimazole-betamethasone 1 %-0.05 % topical cream RxNorm: 3087 14 TOP BID 11/30/2014 11/01/2016 Inactive acetic acid 2 % ear solution RxNorm: 027608 5 Drop(s) OTIC Left ear QID 11/30/2014 12/06/2014 Inactive meloxicam 15 mg tablet RxNorm: 639929 1 Tablet(s) PO QD 10/30/2014 Inactive [SAVINGS FOR NON-COVERED DRUGS -- BIN:00 3585, PCN: [id number], Group: XXXXX, ID# [id number], Questions: . THIS IS NOT INSURANCE.] meloxicam 15 mg tablet RxNorm: 149459 1 Tablet(s) PO QD 10/30/2014 Inactive Toprol XL 25 mg tablet,extended release RxNorm: 497969 1/2 Tabl et(s) PO QD 10/12/2014 04/09/2015 Inactive [SAVINGS FOR UNINSUR ED PATIENTS -- BIN:[id number], PCN: [id number], Group: [id number], ID# [id number], Process claim through [employer], for questions: . THIS IS NOT INSURANCE.] Synthroid 88 mcg tablet RxNorm: 783017 1 Tablet(s) PO Q D TAKE ONE TABLET BY MOUTH ONCE DAILY 09/21/2014 12/19/2014 Inactive Protonix 40 mg tablet,delayed release RxNorm: 050329 1 Tablet(s ) PO QD 07/23/2014 11/19/2014 Inactive Synthroid 88 mcg tablet RxNorm: 328382 TAKE ONE TABLET BY MOUTH ONCE DAILY 06/23/2014 09/21/2014 Inactive omeprazole 40 mg capsule,delayed release RxNorm: 775111 1 Capsu le(s) PO QD 06/16/2014 07/22/2014 Inactive [SAVINGS FOR UNINSUR ED PATIENTS -- BIN:[id number], PCN: [email or web address], Group: [id number], ID# [id number], Process claim through [employer], for questions: . THIS IS NOT INSURANCE.] Toprol XL 25 mg tablet,extended release RxNorm: 219044 1/2 Tabl et(s) PO QD 04/13/2014 10/12/2014 Inactive Celebrex 200 mg capsule RxNorm: 980357 1 Capsule(s) PO QD for pain 03/16/2014 10/29/2014 Inactive Medrol ([place]) 4 mg tablets in a dose pack RxNorm: 416955 Tablet(s) PO as directed 03/09/2014 07/22/2014 Inactive Synthroid 88 mcg tablet RxNorm: 181605 1 Tablet(s) PO QD 02/17/2014 0 06/23/2014 Inactive Celebrex 200 mg capsule RxNorm: 743737 1 Capsule(s) PO QD for pain 02/17/2014 03/15/2014 Inactive omeprazole 40 mg capsule,delayed release RxNorm: 749442 1 Capsu le(s) PO QD 02/05/2014 06/16/2014 Inactive Protonix 40 mg tablet,delayed release RxNorm: 708519 1 Tablet(s ) PO QD 01/23/2014 05/10/2020 Inactive Toprol XL 25 mg tablet,extended release RxNorm: 753616 1/2 Tablet(s) PO QD TAKE ONE-HALF TABLET BY MOUTH EVERY DAY 01/12/2014 04/13/2014 Inactive Synthroid 88 mcg tablet RxNorm: 281136 Tablet(s) PO MANDY E ONE TABLET BY MOUTH EVERY DAY 11/17/2013 02/17/2014 Inactive Celebrex 200 mg capsule RxNorm: 728119 1 Capsule(s) PO QD for pain 10/20/2013 02/17/2014 Inactive Toprol XL 25 mg tablet,extended release RxNorm: 458054 1/2 Tabl et(s) PO QD 07/17/2013 01/12/2014 Inactive Nexium 40 mg capsule,delayed release RxNorm: 635751 1 C apsule(s) PO QD Generic ok 07/14/2013 09/21/2013 Inactive Celebrex 200 mg capsule RxNorm: 925263 1 Capsule(s) PO QD for pain 06/19/2013 10/20/2013 Inactive Synthroid 88 mcg tablet RxNorm: 639430 1 Tablet(s) PO QD 05/13/2013 0 11/17/2013 Inactive TAKE ONE TABLET BY MOUTH EVERY DAY Nexium 40 mg capsule,delayed release RxNorm: 587018 Cap maureen(s) PO TAKE ONE CAPSULE BY MOUTH EVERY DAY 05/05/2013 07/13/2013 Inactive Celebrex 200 mg capsule RxNorm: 197195 1 Capsule(s) PO QD for pain 04/07/2013 06/19/2013 Inactive Esgic-Plus 50 mg-500 mg-40 mg capsule RxNorm: 529115 1 Capsule(s) PO Q4-6H prn headache 04/07/2013 04/07/2013 Inactive Toprol XL 25 mg tablet,extended release RxNorm: 240971 1/2 Tabl et(s) PO QD 12/16/2012 06/13/2013 Inactive Nexium 40 mg capsule,delayed release RxNorm: 067382 1 Capsule(s ) PO QD 11/20/2012 03/19/2013 Inactive Synthroid 88 mcg tablet RxNorm: 811203 1 Tablet(s) PO QD 10/28/2012 0 04/25/2013 Inactive TAKE ONE TABLET BY MOUTH EVERY DAY Toprol XL 25 mg tablet,extended release RxNorm: 416204 1/2 Tabl et(s) PO QD 09/25/2012 12/16/2012 Inactive Synthroid 88 mcg tablet RxNorm: 374243 1 Tablet(s) PO QD 04/22/2012 0 10/28/2012 Inactive TAKE ONE TABLET BY MOUTH EVERY DAY Nexium 40 mg capsule,delayed release RxNorm: 305170 1 Capsule(s ) PO QD 04/16/2012 11/20/2012 Inactive Esgic-Plus 50 mg-500 mg-40 mg capsule RxNorm: 704877 1 Capsule(s) PO Q4-6H prn headache 03/28/2012 04/06/2013 Inactive Toprol XL 25 mg tablet,extended release RxNorm: 366683 1/2 Tabl et(s) PO QD 03/07/2012 09/25/2012 Inactive Toprol XL 25 mg 24 hr Tab RxNorm: 252593 1/2 Tablet(s) PO QD 201101/03/2012 Inactive Three times a week Synthroid 88 mcg Tab RxNorm: 889741 1 Tablet(s) PO QD 10/10/201112/23 Inactive TAKE ONE TABLET BY MOUTH EVERY DAY prednisone 20 mg Tab RxNorm: 417341 1 Tablet(s) PO BID 09/13/2011 Inactive doxycycline 100 mg Cap RxNorm: 6510033 1 Capsule(s) PO BID 09/13/2009/22/2011 Inactive cefdinir 300 mg Cap RxNorm: 981182 1 Capsule(s) PO BID 08/07/2011 Inactive Synthroid 88 mcg Tab RxNorm: 725642 1 Tablet(s) PO QD 07/19/201109/24 Inactive TAKE ONE TABLET BY MOUTH EVERY DAY Synthroid 88 mcg Tab RxNorm: 253499 1 Tablet(s) PO QD 07/19/201103/26 Inactive TAKE ONE TABLET BY MOUTH EVERY DAY Synthroid 88 mcg Tab RxNorm: 021744 1 Tablet(s) PO QD 07/18/201106/25 Inactive TAKE ONE TABLET BY MOUTH EVERY DAY Synthroid 88 mcg Tab RxNorm: 980434 1 Tablet(s) PO QD 05/15/201106/25 Inactive TAKE ONE TABLET BY MOUTH EVERY DAY Synthroid 88 mcg Tab RxNorm: 504097 1 Tablet(s) PO QD 03/15/201104/25 Inactive Synthroid 75 mcg Tab RxNorm: 605918 1 Tablet(s) PO QD 01/04/201102/22 Inactive Synthroid 50 mcg Tab RxNorm: 957620 1 Tablet(s) PO QD G eneric okay. Please explain to patient that she may see more variation in her thyroid labs and increased symptoms. 07/07/2010 03/14/2011 Inactive Prednisone 20 mg Tab RxNorm: 944806 1 Tablet(s) PO BID 02/14/2010 Inactive Flexeril 10 mg Tab RxNorm: 514365 1 Tablet(s) PO TID 02/07/201002/13 Inactive Synthroid 25 mcg Tab RxNorm: 454697 1 Tablet(s) PO QD 12/29/200902/23 Inactive Synthroid 50 mcg Tab RxNorm: 591045 1 Tablet(s) PO QD 12/29/2009/0 11/2009 Inactive Vitamin D3 2,000 unit tablet RxNorm: 834041 1 Tablet(s) PO QAM 2014 Active coenzyme Q10 200 mg tablet RxNorm: 490025 1 Tablet(s) PO QD 09/01/2014 Active Trelegy Ellipta inhalation RxNorm: 2626372 inhalation 05/30/2022 Active Vitamin B12 1000mcg Tablet RxNorm: 1/2 Tablet(s) PO QD 04/03/2017 Active gabapentin 600 mg tablet RxNorm: 612918 1 Tablet(s) PO QPM 01/20/20 16 01/19/2016 Inactive Fish Oil 1,000 mg capsule RxNorm: 1 Capsule(s) PO QHS 10/18/2017 0 10/17/2017 Inactive Toprol XL 25 mg 24 hr Tab RxNorm: 381329 1/2 Tablet(s) PO QD 201103/06/2012 Inactive turmeric root extract oral RxNorm: 1113323 oral 05/26/20152014 Inactive Esgic 50 mg-325 mg-40 mg tablet RxNorm: 402772 1 Tablet (s) PO Q4H as needed for pain 05/26/2015 05/25/2015 Inactive Synthroid 88 mcg Tab RxNorm: 885296 1 Tablet(s) PO QD 03/15/201102/23 Inactive Calcium with Vitamin D 600 mg-400 unit Tab RxNorm: 423392 1 Tab let(s) PO BID 03/31/2013 03/30/2013 Inactive Synthroid 50 mcg Tab RxNorm: 504052 1 Tablet(s) PO QD 03/16/201002/23 Inactive Celebrex 200 mg capsule RxNorm: 345355 1 Capsule(s) PO QD 01/21/2015 01/20/2015 Inactive betamethasone dipropionate 0.05 % topical cream RxNorm: 2389 20 1 Application TOP BID 05/06/2018 05/05/2018 Inactive Protonix 40 mg tablet,delayed release RxNorm: 143059 1 Tablet(s ) PO QD 01/23/2014 01/23/2014 Inactive Calcium + D 600 mg (1,500)-200 unit Tab RxNorm: 420780 1 Tablet (s) PO QD 01/04/2011 01/03/2011 Inactive simvastatin 20 mg tablet RxNorm: 127937 1 Tablet(s) PO QD 11/30/2014 11/29/2014 Inactive Fish Oil 1,000 mg capsule RxNorm: 2 Capsule(s) PO QD 05/26/2015 Inactive Gralise 600 mg tablet,extended release RxNorm: 0396721 1 Tablet( s) PO QD 08/23/2015 08/22/2015 Inactive Vitamin B12 1000mcg Tablet RxNorm: 1 Tablet(s) PO QD 04/03/2017 Inactive Esgic-Plus 50 mg-500 mg-40 mg Cap RxNorm: 201687 1 Caps ule(s) PO Q4-6H prn headache 03/28/2012 03/27/2012 Inactive Cozaar 50 mg tablet RxNorm: 574479 1 Tablet(s) PO QHS 05/24/201804/26 Inactive Toprol XL 25 mg 24 hr Tab RxNorm: 639588 2 Tablet(s) PO Three t imes a week 01/01/2012 12/31/2011 Inactive metoprolol succinate ER 25 mg tablet,extended release 24 hr RxNorm: 019466 1 Tablet(s) PO TID 10/18/2017 10/17/2017 Inactive metoprolol succinate ER 50 mg tablet,extended release 24 hr RxNorm: 596157 1.5 Tablet(s) PO QAM and tablet at bedtime 05/06/2018 05/05/2018 Inactive Esgic-Plus 50 mg-500 mg-40 mg Cap RxNorm: 718275 1 Capsule(s) P O Q4-6H 08/07/2011 08/06/2011 Inactive metoprolol succinate ER 50 mg tablet,extended release 24 hr RxNorm: 138339 1 Tablet(s) PO QD 04/22/2018 04/21/2018 Inactive Multivitamin & Mineral Formula Tab RxNorm: 1 Tablet(s) PO QD 0 03/31/2013 03/30/2013 Inactive metoprolol succinate ER 50 mg tablet,extended release 24 hr RxNorm: 356978 2 Tablet(s) PO QAM and 1.5 tablets (75mg) at bedtime 05/01/2019 9 Inactive Fish Oil 1,000 mg Cap RxNorm: 1 Capsule(s) PO QD 03/31/20132012 Inactive pantoprazole 40 mg tablet,delayed release RxNorm: 558506 1 Tabl et(s) PO QD 02/05/2014 02/04/2014 Inactive Eliquis 2.5 mg tablet RxNorm: 0701279 1 Tablet(s) PO BID 07/07/2019 1 Inactive Medrol 4 mg Tab RxNorm: 646753 Tablet(s) PO as directed 03/28/2012 Inactive Synthroid 75 mcg Tab RxNorm: 807443 1 Tablet(s) PO QD 02/14/201001/23 Inactive aspirin 81 mg tablet RxNorm: 348379 1 Tablet(s) PO QD 05/26/201509/2014 Inactive meclizine 25 mg tablet RxNorm: 473357 1 Tablet(s) PO TID as needed 11/26/2018 11/25/2018 Inactive metoprolol succinate ER 50 mg tablet,extended release 24 hr RxNorm: 210223 1 Tablet(s) PO QAM and 2 tablets in the evening 05/08/2019 05/07/2019 In active Aspirin 81 mg Tab RxNorm: 754232 1 Tablet(s) PO QD 03/31/2013 013 Inactive Vitamin D3 1,000 unit capsule RxNorm: 634252 1 Capsule(s) PO QD 04/201303/30/2013 Inactive Medication Administered No Medication Administered data Immunizations Vaccine Codes Dose Date Status Pneumococcal CVX: 133 0.5 ml 05/26/2015 Results Observation Observation Code Item Item Code Result Date S ervice Location GLYCOSYLATED HEMOGLOBIN TEST 77268 Hgb A1c 60446-4 6.0 % 0 03/01/2022 Unknown MEAN GLUC 6442372 Calc Mean Gluc 126 mg/dL 03/01/2022 Unkn own COMPREHENSIVE METABOLIC 98931 AST 16 U/L 2021 Unknown COMPREHENSIVE METABOLIC 29236 ALT 15 U/L 2021 Unknown COMPREHENSIVE METABOLIC 48602 BUN 18 mg/dL 2021 Unknown COMPREHENSIVE METABOLIC 67397 ALBUMIN 4.3 g/dL 2021 Unknown COMPREHENSIVE METABOLIC 73246 CHLORIDE 104 mmol/L 02/28 Unknown COMPREHENSIVE METABOLIC 16288 Bili Total 0.8 mg/dL 02/28 Unknown COMPREHENSIVE METABOLIC 38006 ALK PHOS 93 U/L 2021 Unknown COMPREHENSIVE METABOLIC 89692 SODIUM 143 mmol/L 02/28 Unknown COMPREHENSIVE METABOLIC 87475 CREATININE 0.82 mg/dL 03/2022 Unknown COMPREHENSIVE METABOLIC 21633 CALCIUM 9.8 mg/dL 2021 Unknown COMPREHENSIVE METABOLIC 91440 POTASSIUM 4.2 mmol/L 02/28 Unknown COMPREHENSIVE METABOLIC 04883 Total Protein 7.7 g/dL Unknown COMPREHENSIVE METABOLIC 69696 Glucose 116 mg/dL 2021 Unknown COMPREHENSIVE METABOLIC 60790 Bicarbonate 26 mmol/L 03/2022 Unknown COMPREHENSIVE METABOLIC 79741 AGAP 13 mmol/L 2021 Unknown FREE T4 13835 T4 Free 1.15 ng/dL 02/28/2022 Unknown THYROID STIMULATING HORMONE 05656 TSH 3.512 uIU/mL 02/28/2022 Unknown LIP[facility] 13246 Cholesterol 158 mg/dL 02/28/2022 Unkno wn LIP[facility] GROUP 96213 Triglyceride 78 mg/dL 02/28/2022 Unkn own LIPID GROUP 90148 HDL CHOLESTEROL 66 mg/dL 02/28/2022 U nknown LIPID GROUP 10240 Chol/HDL Ratio 2.39 ratio 02/28/2022 U nknown LIPID GROUP 68758 NON-HDL Chol 92 mg/dL 02/28/2022 Unkn own LIP[facility] GROUP 53460 LDL Cholesterol 76 mg/dL 02/28/2022 U nknown COMPLETE BLOOD COUNT [id number] WBC 6.9 10e9/L 02/29/20 22 Unknown COMPLETE BLOOD COUNT [id number] RBC 4.61 10e12/L 2021 Unknown COMPLETE BLOOD COUNT 7293822 HEMOGLOBIN 13.0 g/dL 02/29/20 22 Unknown COMPLETE BLOOD COUNT [id number] HEMATOCRIT 42.1 % 02/29/20 22 Unknown COMPLETE BLOOD COUNT [id number] MCV 91.3 fL 2 Unknown COMPLETE BLOOD COUNT [id number] MCH 28.2 pg 2 Unknown COMPLETE BLOOD COUNT [id number] MCHC 30.9 g/dL 2 Unknown COMPLETE BLOOD COUNT [id number] PLATELET COUNT 276 10e9/L 03/2022 Unknown COMPLETE BLOOD COUNT [id number] Mean Plt Volume 10.6 fL 03/2022 Unknown COMPLETE BLOOD COUNT [id number] NRBC Absolute 0.00 10e9/L 03/2022 Unknown COMPLETE BLOOD COUNT [id number] Neut Auto 53.0 % 2 Unknown COMPLETE BLOOD COUNT 7521313 NRBC/100 WBC 0.0 2021 Unknown COMPLETE BLOOD COUNT [id number] Lymph Auto 32.0 % 02/29/20 22 Unknown COMPLETE BLOOD COUNT [id number] [place] Auto 11.0 % 2 Unknown COMPLETE BLOOD COUNT 1156720 RDW 14.4 % 2 Unknown COMPLETE BLOOD COUNT 9261504 Eos Auto 2.5 % 2 Unknown COMPLETE BLOOD COUNT 8401540 Baso Auto 1.4 % 2 Unknown COMPLETE BLOOD COUNT [id number] Neutrophil Abs 3.66 10e9/L Unknown COMPLETE BLOOD COUNT [id number] Imm Gran Auto 0.1 % 02/28 Unknown COMPLETE BLOOD COUNT [id number] Lymphocyte Abs 2.21 10e9/L Unknown COMPLETE BLOOD COUNT [id number] Monocyte Abs 0.76 10e9/L 03/2022 Unknown COMPLETE BLOOD COUNT [id number] Eosinophil Abs 0.17 10e9/L Unknown COMPLETE BLOOD COUNT [id number] RDW-SD 47.8 fL 2 Unknown COMPLETE BLOOD COUNT 8004990 Basophil Abs 0.10 10e9/L 03/2022 Unknown COMPLETE BLOOD COUNT [id number] Imm Gran Abs 0.01 10e9/L 03/2022 Unknown GFR CALC 6975587 GFR >60 mL/min 02/28/2022 Unknown THYROID STIMULATING HORMONE 57703 TSH 3.017 uIU/mL 01/31/2021 Unknown COMPLETE BLOOD COUNT [id number] WBC 6.1 10e9/L 02/01/20 21 Unknown COMPLETE BLOOD COUNT [id number] RBC 4.22 10e12/L 2020 Unknown COMPLETE BLOOD COUNT [id number] HEMOGLOBIN 12.1 g/dL 02/01/20 21 Unknown COMPLETE BLOOD COUNT [id number] HEMATOCRIT 39.5 % 02/01/20 21 Unknown COMPLETE BLOOD COUNT [id number] MCV 93.6 fL 1 Unknown COMPLETE BLOOD COUNT [id number] MCH 28.7 pg 1 Unknown COMPLETE BLOOD COUNT [id number] MCHC 30.6 g/dL 1 Unknown COMPLETE BLOOD COUNT [id number] PLATELET COUNT 271 10e9/L 06/2021 Unknown COMPLETE BLOOD COUNT 8369305 Mean Plt Volume 11.0 fL 06/2021 Unknown COMPLETE BLOOD COUNT [id number] Neut Auto 57.3 % 1 Unknown COMPLETE BLOOD COUNT [id number] Lymph Auto 28.3 % 02/01/20 21 Unknown COMPLETE BLOOD COUNT [id number] [place] Auto 10.9 % 1 Unknown COMPLETE BLOOD COUNT 9505890 RDW 14.4 % 1 Unknown COMPLETE BLOOD COUNT 2476048 Eos Auto 2.8 % 1 Unknown COMPLETE BLOOD COUNT 6777959 Baso Auto 0.7 % 1 Unknown COMPLETE BLOOD COUNT 6403476 Neutrophil Abs 3.50 10e9/L Unknown COMPLETE BLOOD COUNT [id number] Lymphocyte Abs 1.73 10e9/L Unknown COMPLETE BLOOD COUNT [id number] Monocyte Abs 0.66 10e9/L 01/22 Unknown COMPLETE BLOOD COUNT [id number] Eosinophil Abs 0.17 10e9/L Unknown COMPLETE BLOOD COUNT [id number] RDW-SD 47.4 fL 1 Unknown COMPLETE BLOOD COUNT [id number] Basophil Abs 0.04 10e9/L 01/22 Unknown GLYCOSYLATED HEMOGLOBIN TEST 29161 Hgb A1c 03346-3 5.9 % 0 01/31/2021 Unknown LIPID GROUP 16807 Cholesterol 151 mg/dL 01/31/2021 Unkno wn LIPID GROUP 26668 Triglyceride 68 mg/dL 01/31/2021 Unkn own LIPID GROUP 72392 HDL CHOLESTEROL 64 mg/dL 01/31/2021 U nknown LIPID GROUP 80294 Chol/HDL Ratio 2.36 ratio 01/31/2021 U nknown LIPID GROUP 56483 NON-HDL Chol 87 mg/dL 01/31/2021 Unkn own LIPID GROUP 21299 LDL Cholesterol 73 mg/dL 01/31/2021 U nknown MEAN GLUC 7219224 Calc Mean Gluc 123 mg/dL 01/31/2021 Unkn own FREE T4 76287 T4 Free 1.11 ng/dL 01/31/2021 Unknown COMPREHENSIVE METABOLIC 76786 AST 16 U/L 2020 Unknown COMPREHENSIVE METABOLIC 65860 ALT 12 U/L 2020 Unknown COMPREHENSIVE METABOLIC 90357 BUN 14 mg/dL 2020 Unknown COMPREHENSIVE METABOLIC 68426 ALBUMIN 4.3 g/dL 2020 Unknown COMPREHENSIVE METABOLIC 75437 CHLORIDE 106 mmol/L 01/31 Unknown COMPREHENSIVE METABOLIC 30429 Bili Total 0.9 mg/dL 01/31 Unknown COMPREHENSIVE METABOLIC 96225 ALK PHOS 96 U/L 2020 Unknown COMPREHENSIVE METABOLIC 97578 SODIUM 144 mmol/L 01/31 Unknown COMPREHENSIVE METABOLIC 50700 CREATININE 0.77 mg/dL 01/22 Unknown COMPREHENSIVE METABOLIC 91627 CALCIUM 9.4 mg/dL 2020 Unknown COMPREHENSIVE METABOLIC 17161 POTASSIUM 4.2 mmol/L 01/31 Unknown COMPREHENSIVE METABOLIC 50060 Total Protein 7.4 g/dL Unknown COMPREHENSIVE METABOLIC 43938 Glucose 94 mg/dL 2020 Unknown COMPREHENSIVE METABOLIC 52892 Bicarbonate 30 mmol/L 01/22 Unknown COMPREHENSIVE METABOLIC 53731 AGAP 8 mmol/L 2020 Unknown GFR CALC 3731783 GFR Non Afr Amr >60 mL/min 01/31/2021 Un known GFR CALC 4855439 GFR Afr Amr >60 mL/min 01/31/2021 Unknow n COMPLETE BLOOD COUNT 2353217 WBC 6.9 10e9/L 01/05/20 20 Unknown COMPLETE BLOOD COUNT [id number] RBC 4.20 10e12/L 2019 Unknown COMPLETE BLOOD COUNT [id number] HEMOGLOBIN 12.2 g/dL 01/05/20 20 Unknown COMPLETE BLOOD COUNT 0893273 HEMATOCRIT 39.2 % 01/05/20 20 Unknown COMPLETE BLOOD COUNT 7175283 MCV 93.3 fL 0 Unknown COMPLETE BLOOD COUNT 9008106 MCH 29.0 pg 0 Unknown COMPLETE BLOOD COUNT 6566705 MCHC 31.1 g/dL 0 Unknown COMPLETE BLOOD COUNT 2629094 PLATELET COUNT 272 10e9/L Unknown COMPLETE BLOOD COUNT 9008926 Mean Plt Volume 11.0 fL Unknown COMPLETE BLOOD COUNT 0998858 Neut Auto 61.4 % 0 Unknown COMPLETE BLOOD COUNT 9983640 Lymph Auto 22.4 % 01/05/20 20 Unknown COMPLETE BLOOD COUNT 1359085 [place] Auto 11.7 % 0 Unknown COMPLETE BLOOD COUNT 3908414 RDW 14.6 % 0 Unknown COMPLETE BLOOD COUNT 1723021 Eos Auto 3.6 % 0 Unknown COMPLETE BLOOD COUNT 6410481 Baso Auto 0.9 % 0 Unknown COMPLETE BLOOD COUNT 8885359 Neutrophil Abs 4.24 10e9/L Unknown COMPLETE BLOOD COUNT 4609885 Lymphocyte Abs 1.55 10e9/L Unknown COMPLETE BLOOD COUNT [id number] Monocyte Abs 0.81 10e9/L 12/23 Unknown COMPLETE BLOOD COUNT 3893396 Eosinophil Abs 0.25 10e9/L Unknown COMPLETE BLOOD COUNT 5517532 RDW-SD 48.2 fL 0 Unknown COMPLETE BLOOD COUNT 1436937 Basophil Abs 0.06 10e9/L 12/23 Unknown COMPREHENSIVE METABOLIC 78315 AST 17 U/L 2019 Unknown COMPREHENSIVE METABOLIC 72611 ALT 12 U/L 2019 Unknown COMPREHENSIVE METABOLIC 72085 BUN 18 mg/dL 2019 Unknown COMPREHENSIVE METABOLIC 83202 ALBUMIN 4.5 g/dL 2019 Unknown COMPREHENSIVE METABOLIC 22995 CHLORIDE 101 mmol/L 01/04 Unknown COMPREHENSIVE METABOLIC 83832 Bili Total 0.8 mg/dL 01/04 Unknown COMPREHENSIVE METABOLIC 57064 ALK PHOS 76 U/L 2019 Unknown COMPREHENSIVE METABOLIC 49047 SODIUM 141 mmol/L 01/04 Unknown COMPREHENSIVE METABOLIC 28271 CREATININE 1.02 mg/dL 12/23 Unknown COMPREHENSIVE METABOLIC 53472 CALCIUM 9.5 mg/dL 2019 Unknown COMPREHENSIVE METABOLIC 73032 POTASSIUM 3.9 mmol/L 01/04 Unknown COMPREHENSIVE METABOLIC 20205 Total Protein 7.4 g/dL Unknown COMPREHENSIVE METABOLIC 80562 Glucose 89 mg/dL 2019 Unknown COMPREHENSIVE METABOLIC 51347 Bicarbonate 28 mmol/L 12/23 Unknown COMPREHENSIVE METABOLIC 68355 AGAP 12 mmol/L 2019 Unknown LIPASE 40366 Lipase Lvl 34 IU/L 01/05/2020 Unknown THYROID STIMULATING HORMONE 97816 TSH 3.767 uIU/mL 01/05/2020 Unknown AMYLASE 02960 Amylase Lvl 60 IU/L 01/05/2020 Unknown GFR CALC 4082290 GFR Non Afr Amr 52 mL/min 01/05/2020 Unk nown GFR CALC 5962141 GFR Afr Amr >60 mL/min 01/05/2020 Unknow n FREE T4 67848 T4 Free 1.11 ng/dL 01/05/2020 Unknown GFR CALC 4554152 GFR Non Afr Amr 59 mL/min 12/05/2019 Unk nown GFR CALC 5445956 GFR Afr Amr >60 mL/min 12/05/2019 Unknow n COMPREHENSIVE METABOLIC 68229 AST 15 U/L 2019 Unknown COMPREHENSIVE METABOLIC 26667 ALT 12 U/L 2019 Unknown COMPREHENSIVE METABOLIC 62819 BUN 19 mg/dL 2019 Unknown COMPREHENSIVE METABOLIC 94748 ALBUMIN 4.2 g/dL 2019 Unknown COMPREHENSIVE METABOLIC 70729 CHLORIDE 104 mmol/L 12/04 Unknown COMPREHENSIVE METABOLIC 38267 Bili Total 1.0 mg/dL 12/04 Unknown COMPREHENSIVE METABOLIC 41700 ALK PHOS 78 U/L 2019 Unknown COMPREHENSIVE METABOLIC 41272 SODIUM 145 mmol/L 12/04 Unknown COMPREHENSIVE METABOLIC 26471 CREATININE 0.91 mg/dL 11/22 Unknown COMPREHENSIVE METABOLIC 43635 CALCIUM 9.3 mg/dL 2019 Unknown COMPREHENSIVE METABOLIC 24349 POTASSIUM 3.6 mmol/L 12/04 Unknown COMPREHENSIVE METABOLIC 88191 Total Protein 7.0 g/dL Unknown COMPREHENSIVE METABOLIC 70026 Glucose 96 mg/dL 2019 Unknown COMPREHENSIVE METABOLIC 35193 Bicarbonate 28 mmol/L 11/22 Unknown COMPREHENSIVE METABOLIC 74574 AGAP 13 mmol/L 2019 Unknown COMPREHENSIVE METABOLIC 64841 AST 15 U/L 2019 Unknown COMPREHENSIVE METABOLIC 31001 ALT 11 U/L 2019 Unknown COMPREHENSIVE METABOLIC 03068 BUN 14 mg/dL 2019 Unknown COMPREHENSIVE METABOLIC 33977 ALBUMIN 4.3 g/dL 2019 Unknown COMPREHENSIVE METABOLIC 66836 CHLORIDE 106 mmol/L 11/05 Unknown COMPREHENSIVE METABOLIC 73330 Bili Total 0.7 mg/dL 11/05 Unknown COMPREHENSIVE METABOLIC 25864 ALK PHOS 80 U/L 2019 Unknown COMPREHENSIVE METABOLIC 00299 SODIUM 145 mmol/L 11/05 Unknown COMPREHENSIVE METABOLIC 93372 CREATININE 0.97 mg/dL 10/25 Unknown COMPREHENSIVE METABOLIC 15813 CALCIUM 9.5 mg/dL 2019 Unknown COMPREHENSIVE METABOLIC 32488 POTASSIUM 3.9 mmol/L 11/05 Unknown COMPREHENSIVE METABOLIC 94701 Total Protein 7.0 g/dL Unknown COMPREHENSIVE METABOLIC 00559 Glucose 103 mg/dL 2019 Unknown COMPREHENSIVE METABOLIC 15273 Bicarbonate 29 mmol/L 10/25 Unknown COMPREHENSIVE METABOLIC 68440 AGAP 10 mmol/L 2019 Unknown GFR CALC 1546494 GFR Non Afr Amr 55 mL/min 11/05/2019 Unk nown GFR CALC 8981544 GFR Afr Amr >60 mL/min 11/05/2019 Unknow n FREE T4 07752 T4 Free 1.34 ng/dL 10/21/2019 Unknown COMPLETE BLOOD COUNT 0435968 WBC 7.2 10e9/L 10/21/19 20 Unknown COMPLETE BLOOD COUNT 2302656 RBC 4.17 10e12/L 2019 Unknown COMPLETE BLOOD COUNT 2650320 HEMOGLOBIN 12.1 g/dL 10/21/19 20 Unknown COMPLETE BLOOD COUNT 0887109 HEMATOCRIT 39.0 % 10/21/19 20 Unknown COMPLETE BLOOD COUNT 1557845 MCV 93.5 fL 0 Unknown COMPLETE BLOOD COUNT 9097002 MCH 29.0 pg 0 Unknown COMPLETE BLOOD COUNT 6729443 MCHC 31.0 g/dL 0 Unknown COMPLETE BLOOD COUNT 7532945 PLATELET COUNT 239 10e9/L Unknown COMPLETE BLOOD COUNT 5676033 Mean Plt Volume 11.7 fL Unknown COMPLETE BLOOD COUNT 6162535 Neut Auto 63.7 % 0 Unknown COMPLETE BLOOD COUNT 7398521 Lymph Auto 21.0 % 10/21/19 20 Unknown COMPLETE BLOOD COUNT 6967229 [place] Auto 11.1 % 0 Unknown COMPLETE BLOOD COUNT 2463440 RDW 13.6 % 0 Unknown COMPLETE BLOOD COUNT 3517865 Eos Auto 3.6 % 0 Unknown COMPLETE BLOOD COUNT 1599342 Baso Auto 0.6 % 0 Unknown COMPLETE BLOOD COUNT 0632238 Neutrophil Abs 4.59 10e9/L Unknown COMPLETE BLOOD COUNT 8449336 Lymphocyte Abs 1.51 10e9/L Unknown COMPLETE BLOOD COUNT 8383909 Monocyte Abs 0.80 10e9/L 09/25 Unknown COMPLETE BLOOD COUNT 7321118 Eosinophil Abs 0.26 10e9/L Unknown COMPLETE BLOOD COUNT 9055592 RDW-SD 45.1 fL 0 Unknown COMPLETE BLOOD COUNT 8681714 Basophil Abs 0.04 10e9/L 09/25 Unknown GFR CALC 4983976 GFR Non Afr Amr 42 mL/min 10/21/2019 Unk nown GFR CALC 9484388 GFR Afr Amr 50 mL/min 10/21/2019 Unknown COMPREHENSIVE METABOLIC 73711 AST 16 U/L 2019 Unknown COMPREHENSIVE METABOLIC 48182 ALT 10 U/L 2019 Unknown COMPREHENSIVE METABOLIC 60758 BUN 20 mg/dL 2019 Unknown COMPREHENSIVE METABOLIC 37087 ALBUMIN 4.4 g/dL 2019 Unknown COMPREHENSIVE METABOLIC 29432 CHLORIDE 102 mmol/L 10/21 Unknown COMPREHENSIVE METABOLIC 56670 Bili Total 0.8 mg/dL 10/21 Unknown COMPREHENSIVE METABOLIC 89086 ALK PHOS 85 U/L 2019 Unknown COMPREHENSIVE METABOLIC 18718 SODIUM 144 mmol/L 10/21 Unknown COMPREHENSIVE METABOLIC 37226 CREATININE 1.24 mg/dL 09/25 Unknown COMPREHENSIVE METABOLIC 10609 CALCIUM 9.8 mg/dL 2019 Unknown COMPREHENSIVE METABOLIC 18477 POTASSIUM 4.2 mmol/L 10/21 Unknown COMPREHENSIVE METABOLIC 20030 Total Protein 7.3 g/dL Unknown COMPREHENSIVE METABOLIC 22676 Glucose 98 mg/dL 2019 Unknown COMPREHENSIVE METABOLIC 78639 Bicarbonate 31 mmol/L 09/25 Unknown COMPREHENSIVE METABOLIC 66801 AGAP 11 mmol/L 2019 Unknown THYROID STIMULATING HORMONE 12512 TSH 2.693 uIU/mL 10/21/2019 Unknown LIPID GROUP 99979 Cholesterol 142 mg/dL 10/21/2019 Unkno wn LIPID GROUP 52081 Triglyceride 120 mg/dL 10/21/2019 Unkn own LIPID GROUP 58563 HDL CHOLESTEROL 54 mg/dL 10/21/2019 U nknown LIPID GROUP 79128 Chol/HDL Ratio 2.63 ratio 10/21/2019 U nknown LIPID GROUP 08652 NON-HDL Chol 88 mg/dL 10/21/2019 Unkn own LIPID GROUP 86596 LDL Cholesterol 64 mg/dL 10/21/2019 U nknown GFR CALC [id number] GFR Non Afr Amr >60 mL/min 04/04/2019 Un known GFR CALC [id number] GFR Afr Amr >60 mL/min 04/04/2019 Unknow n COMPLETE BLOOD COUNT [id number] WBC 5.9 10e9/L 04/04/20 19 Unknown COMPLETE BLOOD COUNT [id number] RBC 4.29 10e12/L 2018 Unknown COMPLETE BLOOD COUNT 5875400 HEMOGLOBIN 12.3 g/dL 04/04/20 19 Unknown COMPLETE BLOOD COUNT 7971957 HEMATOCRIT 39.2 % 04/04/20 19 Unknown COMPLETE BLOOD COUNT [id number] MCV 91.4 fL 9 Unknown COMPLETE BLOOD COUNT 5460253 MCH 28.7 pg 9 Unknown COMPLETE BLOOD COUNT 1384630 MCHC 31.4 g/dL 9 Unknown COMPLETE BLOOD COUNT 9521134 PLATELET COUNT 225 10e9/L 08/2019 Unknown COMPLETE BLOOD COUNT 4193949 Mean Plt Volume 11.0 fL 08/2019 Unknown COMPLETE BLOOD COUNT 8144429 Neut Auto 57.2 % 9 Unknown COMPLETE BLOOD COUNT 0404881 Lymph Auto 27.3 % 04/04/20 19 Unknown COMPLETE BLOOD COUNT 6648222 [place] Auto 11.2 % 9 Unknown COMPLETE BLOOD COUNT 4494654 RDW 14.3 % 9 Unknown COMPLETE BLOOD COUNT 2049580 Eos Auto 3.4 % 9 Unknown COMPLETE BLOOD COUNT 2114756 Baso Auto 0.9 % 9 Unknown COMPLETE BLOOD COUNT 8108694 Neutrophil Abs 3.37 10e9/L Unknown COMPLETE BLOOD COUNT 1736428 Lymphocyte Abs 1.61 10e9/L Unknown COMPLETE BLOOD COUNT [id number] Monocyte Abs 0.66 10e9/L 03/24 Unknown COMPLETE BLOOD COUNT 4106808 Eosinophil Abs 0.20 10e9/L Unknown COMPLETE BLOOD COUNT [id number] RDW-SD 46.6 fL 9 Unknown COMPLETE BLOOD COUNT [id number] Basophil Abs 0.05 10e9/L 03/24 Unknown THYROID STIMULATING HORMONE 02474 TSH 2.068 uIU/mL 04/04/2019 Unknown COMPREHENSIVE METABOLIC 80447 AST 17 U/L 2018 Unknown COMPREHENSIVE METABOLIC 20385 ALT 12 U/L 2018 Unknown COMPREHENSIVE METABOLIC 67482 BUN 17 mg/dL 2018 Unknown COMPREHENSIVE METABOLIC 79757 ALBUMIN 4.3 g/dL 2018 Unknown COMPREHENSIVE METABOLIC 79136 CHLORIDE 107 mmol/L 04/04 Unknown COMPREHENSIVE METABOLIC 31204 Bili Total 1.1 mg/dL 04/04 Unknown COMPREHENSIVE METABOLIC 98693 ALK PHOS 74 U/L 2018 Unknown COMPREHENSIVE METABOLIC 28306 SODIUM 144 mmol/L 04/04 Unknown COMPREHENSIVE METABOLIC 19325 CREATININE 0.70 mg/dL 03/24 Unknown COMPREHENSIVE METABOLIC 91899 CALCIUM 9.5 mg/dL 2018 Unknown COMPREHENSIVE METABOLIC 95546 POTASSIUM 4.1 mmol/L 04/04 Unknown COMPREHENSIVE METABOLIC 67619 Total Protein 6.8 g/dL Unknown COMPREHENSIVE METABOLIC 99319 Glucose 95 mg/dL 2018 Unknown COMPREHENSIVE METABOLIC 91262 Bicarbonate 29 mmol/L 03/24 Unknown COMPREHENSIVE METABOLIC 24085 AGAP 8 mmol/L 2018 Unknown FREE T4 44139 T4 Free 1.09 ng/dL 04/04/2019 Unknown LIPID GROUP 54042 Cholesterol 149 mg/dL 04/04/2019 Unkno wn LIPID GROUP 37838 Triglyceride 70 mg/dL 04/04/2019 Unkn own LIPID GROUP 74203 HDL CHOLESTEROL 62 mg/dL 04/04/2019 U nknown LIPID GROUP 29132 Chol/HDL Ratio 2.40 ratio 04/04/2019 U nknown LIPID GROUP 70081 NON-HDL Chol 87 mg/dL 04/04/2019 Unkn own LIPID GROUP 85526 LDL Cholesterol 73 mg/dL 04/04/2019 U nknown THYROID STIMULATING HORMONE 70381 TSH 3.698 uIU/mL 10/08/2018 Unknown FREE T4 12466 T4 Free 1.24 ng/dL 10/08/2018 Unknown GFR CALC 8454243 GFR Non Afr Amr >60 mL/min 10/07/2018 Un known GFR CALC 7799365 GFR Afr Amr >60 mL/min 10/07/2018 Unknow n COMPLETE BLOOD COUNT 1384546 WBC 6.3 10e9/L 10/07/19 19 Unknown COMPLETE BLOOD COUNT [id number] RBC 4.22 10e12/L 2018 Unknown COMPLETE BLOOD COUNT 0584243 HEMOGLOBIN 12.2 g/dL 10/07/19 19 Unknown COMPLETE BLOOD COUNT 6763430 HEMATOCRIT 39.4 % 10/07/19 19 Unknown COMPLETE BLOOD COUNT 0877743 MCV 93.4 fL 9 Unknown COMPLETE BLOOD COUNT [id number] MCH 28.9 pg 9 Unknown COMPLETE BLOOD COUNT 1296221 MCHC 31.0 g/dL 9 Unknown COMPLETE BLOOD COUNT 6116978 PLATELET COUNT 231 10e9/L Unknown COMPLETE BLOOD COUNT 3028371 Mean Plt Volume 11.2 fL Unknown COMPLETE BLOOD COUNT [id number] Neut Auto 55.7 % 9 Unknown COMPLETE BLOOD COUNT 1902548 Lymph Auto 30.3 % 10/07/19 19 Unknown COMPLETE BLOOD COUNT 1029183 [place] Auto 9.6 % 9 Unknown COMPLETE BLOOD COUNT 8563967 RDW 14.0 % 9 Unknown COMPLETE BLOOD COUNT 7873496 Eos Auto 3.5 % 9 Unknown COMPLETE BLOOD COUNT 9724013 Baso Auto 0.9 % 9 Unknown COMPLETE BLOOD COUNT [id number] Neutrophil Abs 3.51 10e9/L Unknown COMPLETE BLOOD COUNT [id number] Lymphocyte Abs 1.91 10e9/L Unknown COMPLETE BLOOD COUNT [id number] Monocyte Abs 0.60 10e9/L 09/24 Unknown COMPLETE BLOOD COUNT [id number] Eosinophil Abs 0.22 10e9/L Unknown COMPLETE BLOOD COUNT 6894236 RDW-SD 46.1 fL 9 Unknown COMPLETE BLOOD COUNT [id number] Basophil Abs 0.06 10e9/L 09/24 Unknown COMPREHENSIVE METABOLIC 88218 AST 14 U/L 2018 Unknown COMPREHENSIVE METABOLIC 90878 ALT 10 U/L 2018 Unknown COMPREHENSIVE METABOLIC 79841 BUN 21 mg/dL 2018 Unknown COMPREHENSIVE METABOLIC 01598 ALBUMIN 4.4 g/dL 2018 Unknown COMPREHENSIVE METABOLIC 27137 CHLORIDE 105 mmol/L 10/07 Unknown COMPREHENSIVE METABOLIC 52990 Bili Total 0.7 mg/dL 10/07 Unknown COMPREHENSIVE METABOLIC 16801 ALK PHOS 80 U/L 2018 Unknown COMPREHENSIVE METABOLIC 75222 SODIUM 143 mmol/L 10/07 Unknown COMPREHENSIVE METABOLIC 42628 CREATININE 0.67 mg/dL 09/24 Unknown COMPREHENSIVE METABOLIC 49287 CALCIUM 9.3 mg/dL 2018 Unknown COMPREHENSIVE METABOLIC 87559 POTASSIUM 3.8 mmol/L 10/07 Unknown COMPREHENSIVE METABOLIC 14359 Total Protein 7.0 g/dL Unknown COMPREHENSIVE METABOLIC 22638 Glucose 98 mg/dL 2018 Unknown COMPREHENSIVE METABOLIC 76651 Bicarbonate 32 mmol/L 09/24 Unknown COMPREHENSIVE METABOLIC 88353 AGAP 6 mmol/L 2018 Unknown LIPID GROUP 26400 Cholesterol 160 mg/dL 10/07/2018 Unkno wn LIPID GROUP 64917 Triglyceride 101 mg/dL 10/07/2018 Unkn own LIPID GROUP 81581 HDL CHOLESTEROL 63 mg/dL 10/07/2018 U nknown LIPID GROUP 83833 Chol/HDL Ratio 2.54 ratio 10/07/2018 U nknown LIPID GROUP 59669 NON-HDL Chol 97 mg/dL 10/07/2018 Unkn own LIPID GROUP 81060 LDL Cholesterol 77 mg/dL 10/07/2018 U nknown MEAN GLUC 3202871 Calc Mean Gluc 114 mg/dL 10/07/2018 Unkn own GLYCOSYLATED HEMOGLOBIN TEST 73344 Hgb A1c 28681-0 5.6 % 0 10/07/2018 Unknown FREE T4 12767 T4 Free 1.21 ng/dL 02/14/2018 Unknown THYROID STIMULATING HORMONE 58148 TSH 2.977 uIU/mL 02/14/2018 Unknown COMPLETE BLOOD COUNT 7959189 WBC 5.6 10e9/L 02/14/20 18 Unknown COMPLETE BLOOD COUNT 3701053 RBC 4.23 10e12/L 2017 Unknown COMPLETE BLOOD COUNT 6699657 HEMOGLOBIN 12.4 g/dL 02/14/20 18 Unknown COMPLETE BLOOD COUNT 4006988 HEMATOCRIT 39.1 % 02/14/20 18 Unknown COMPLETE BLOOD COUNT 9401211 MCV 92.4 fL 8 Unknown COMPLETE BLOOD COUNT 0903417 MCH 29.3 pg 8 Unknown COMPLETE BLOOD COUNT 6261825 MCHC 31.7 g/dL 8 Unknown COMPLETE BLOOD COUNT 2882223 PLATELET COUNT 268 10e9/L Unknown COMPLETE BLOOD COUNT 7629886 Mean Plt Volume 11.0 fL Unknown COMPLETE BLOOD COUNT 9502998 Neut Auto 52.1 % 8 Unknown COMPLETE BLOOD COUNT 5041108 Lymph Auto 32.0 % 02/14/20 18 Unknown COMPLETE BLOOD COUNT 3912180 [place] Auto 11.8 % 8 Unknown COMPLETE BLOOD COUNT 3772277 RDW 14.6 % 8 Unknown COMPLETE BLOOD COUNT 6592477 Eos Auto 3.2 % 8 Unknown COMPLETE BLOOD COUNT 4599554 Baso Auto 0.9 % 8 Unknown COMPLETE BLOOD COUNT 6865572 Neutrophil Abs 2.92 10e9/L Unknown COMPLETE BLOOD COUNT 4792323 Lymphocyte Abs 1.79 10e9/L Unknown COMPLETE BLOOD COUNT 0745464 Monocyte Abs 0.66 10e9/L 01/23 Unknown COMPLETE BLOOD COUNT 4346962 Eosinophil Abs 0.18 10e9/L Unknown COMPLETE BLOOD COUNT 5445178 RDW-SD 48.2 fL 8 Unknown COMPLETE BLOOD COUNT 1495412 Basophil Abs 0.05 10e9/L 01/23 Unknown GFR CALC 5677841 GFR Non Afr Amr >60 mL/min 02/13/2018 Un known GFR CALC 7442729 GFR Afr Amr >60 mL/min 02/13/2018 Unknow n COMPREHENSIVE METABOLIC 78783 AST 18 U/L 2017 Unknown COMPREHENSIVE METABOLIC 64301 ALT 13 U/L 2017 Unknown COMPREHENSIVE METABOLIC 11993 BUN 14 mg/dL 2017 Unknown COMPREHENSIVE METABOLIC 54367 ALBUMIN 4.3 g/dL 2017 Unknown COMPREHENSIVE METABOLIC 45430 CHLORIDE 108 mmol/L 02/13 Unknown COMPREHENSIVE METABOLIC 57467 Bili Total 0.8 mg/dL 02/13 Unknown COMPREHENSIVE METABOLIC 36403 ALK PHOS 82 U/L 2017 Unknown COMPREHENSIVE METABOLIC 46788 SODIUM 144 mmol/L 02/13 Unknown COMPREHENSIVE METABOLIC 30743 CREATININE 0.67 mg/dL 01/23 Unknown COMPREHENSIVE METABOLIC 09715 CALCIUM 9.4 mg/dL 2017 Unknown COMPREHENSIVE METABOLIC 27481 POTASSIUM 4.1 mmol/L 02/13 Unknown COMPREHENSIVE METABOLIC 23849 Total Protein 6.9 g/dL Unknown COMPREHENSIVE METABOLIC 52866 Glucose 103 mg/dL 2017 Unknown COMPREHENSIVE METABOLIC 93167 Bicarbonate 27 mmol/L 01/23 Unknown COMPREHENSIVE METABOLIC 76087 AGAP 9 mmol/L 2017 Unknown LIPID GROUP 73863 Cholesterol 169 mg/dL 10/15/2017 Unkno wn LIPID GROUP 68058 Triglyceride 99 mg/dL 10/15/2017 Unkn own LIPID GROUP 75116 HDL CHOLESTEROL 69 10/15/2017 U nknown LIPID GROUP 62326 Chol/HDL Ratio 2.45 ratio 10/15/2017 U nknown LIPID GROUP 94861 NON-HDL Chol 100 mg/dL 10/15/2017 Unkn own LIPID GROUP 22857 LDL Cholesterol 80 mg/dL 10/15/2017 U nknown COMPREHENSIVE METABOLIC 66654 AST 17 U/L 2017 Unknown COMPREHENSIVE METABOLIC 50891 ALT 13 U/L 2017 Unknown COMPREHENSIVE METABOLIC 07328 BUN 22 mg/dL 2017 Unknown COMPREHENSIVE METABOLIC 16413 ALBUMIN 4.5 g/dL 2017 Unknown COMPREHENSIVE METABOLIC 70823 CHLORIDE 99 mmol/L 2017 Unknown COMPREHENSIVE METABOLIC 89152 Bili Total 0.8 mg/dL 10/15 Unknown COMPREHENSIVE METABOLIC 98794 ALK PHOS 78 U/L 2017 Unknown COMPREHENSIVE METABOLIC 74097 SODIUM 150 mmol/L 10/15 Unknown COMPREHENSIVE METABOLIC 51889 CREATININE 0.73 mg/dL 09/25 Unknown COMPREHENSIVE METABOLIC 48004 CALCIUM 9.5 mg/dL 2017 Unknown COMPREHENSIVE METABOLIC 14820 POTASSIUM 4.2 mmol/L 10/15 Unknown COMPREHENSIVE METABOLIC 41404 Total Protein 7.2 g/dL Unknown COMPREHENSIVE METABOLIC 12368 Glucose 96 mg/dL 2017 Unknown COMPREHENSIVE METABOLIC 45804 Bicarbonate 29 mmol/L 09/25 Unknown COMPREHENSIVE METABOLIC 53611 AGAP 22 mmol/L 2017 Unknown GFR CALC 3270836 GFR Non Afr Amr >60 mL/min 10/15/2017 Un known GFR CALC 5023520 GFR Afr Amr >60 mL/min 10/15/2017 Unknow n THYROID STIMULATING HORMONE 25797 TSH 4.502 uIU/mL 10/15/2017 Unknown FREE T4 48713 T4 Free 1.44 ng/dL 10/15/2017 Unknown VITAMIN B 12 13728 VITAMIN B12 698 pg/mL 10/15/2017 Unkn own COMPLETE BLOOD COUNT 8348514 WBC 6.3 10e9/L 10/15/19 18 Unknown COMPLETE BLOOD COUNT [id number] RBC 4.37 10e12/L 2017 Unknown COMPLETE BLOOD COUNT 3805522 HEMOGLOBIN 12.6 g/dL 10/15/19 18 Unknown COMPLETE BLOOD COUNT 2372796 HEMATOCRIT 40.3 % 10/15/19 18 Unknown COMPLETE BLOOD COUNT 0895268 MCV 92.2 fL 8 Unknown COMPLETE BLOOD COUNT 1702422 MCH 28.8 pg 8 Unknown COMPLETE BLOOD COUNT 1562232 MCHC 31.3 g/dL 8 Unknown COMPLETE BLOOD COUNT 2804467 PLATELET COUNT 256 10e9/L Unknown COMPLETE BLOOD COUNT 7532967 Mean Plt Volume 11.1 fL Unknown COMPLETE BLOOD COUNT 5205208 Neut Auto 54.8 % 8 Unknown COMPLETE BLOOD COUNT 0902647 Lymph Auto 30.5 % 10/15/19 18 Unknown COMPLETE BLOOD COUNT 9966991 [place] Auto 10.4 % 8 Unknown COMPLETE BLOOD COUNT 4269146 RDW 14.0 % 8 Unknown COMPLETE BLOOD COUNT 7551102 Eos Auto 3.8 % 8 Unknown COMPLETE BLOOD COUNT 6147483 Baso Auto 0.5 % 8 Unknown COMPLETE BLOOD COUNT 3748496 Neutrophil Abs 3.45 10e9/L Unknown COMPLETE BLOOD COUNT 0876903 Lymphocyte Abs 1.92 10e9/L Unknown COMPLETE BLOOD COUNT 5238592 Monocyte Abs 0.66 10e9/L 09/25 Unknown COMPLETE BLOOD COUNT 4050526 Eosinophil Abs 0.24 10e9/L Unknown COMPLETE BLOOD COUNT 7954750 RDW-SD 46.1 fL 8 Unknown COMPLETE BLOOD COUNT 1254829 Basophil Abs 0.03 10e9/L 09/25 Unknown VITAMIN B 12 84067 VITAMIN B12 823 pg/mL 03/30/2017 Unkn own VITAMIN B 12 94116 VITAMIN B12 321 pg/mL 12/18/2016 Unkn own COMPLETE BLOOD COUNT 2357546 WBC 6.8 10e9/L 12/12/19 17 Unknown COMPLETE BLOOD COUNT 9827020 RBC 4.37 10e12/L 2016 Unknown COMPLETE BLOOD COUNT 2373785 HEMOGLOBIN 12.5 g/dL 12/12/19 17 Unknown COMPLETE BLOOD COUNT 8622835 HEMATOCRIT 39.3 % 12/12/19 17 Unknown COMPLETE BLOOD COUNT 8041917 MCV 89.9 fL 7 Unknown COMPLETE BLOOD COUNT 6210336 MCH 28.6 pg 7 Unknown COMPLETE BLOOD COUNT 7884818 MCHC 31.8 g/dL 7 Unknown COMPLETE BLOOD COUNT 7602288 PLATELET COUNT 248 10e9/L Unknown COMPLETE BLOOD COUNT 2945141 Mean Plt Volume 10.9 fL Unknown COMPLETE BLOOD COUNT 6190290 Neut Auto 52.0 % 7 Unknown COMPLETE BLOOD COUNT 3916782 Lymph Auto 33.4 % 12/12/19 17 Unknown COMPLETE BLOOD COUNT 6922938 [place] Auto 10.1 % 7 Unknown COMPLETE BLOOD COUNT 5319661 RDW 14.6 % 7 Unknown COMPLETE BLOOD COUNT 8655602 Eos Auto 3.8 % 7 Unknown COMPLETE BLOOD COUNT 4821351 Baso Auto 0.7 % 7 Unknown COMPLETE BLOOD COUNT 1002639 Neutrophil Abs 3.54 10e9/L Unknown COMPLETE BLOOD COUNT 4457861 Lymphocyte Abs 2.27 10e9/L Unknown COMPLETE BLOOD COUNT 0907301 Monocyte Abs 0.69 10e9/L 11/23 Unknown COMPLETE BLOOD COUNT 1355894 Eosinophil Abs 0.26 10e9/L Unknown COMPLETE BLOOD COUNT 2903400 RDW-SD 47.4 fL 7 Unknown COMPLETE BLOOD COUNT 8800297 Basophil Abs 0.05 10e9/L 11/23 Unknown COMPREHENSIVE METABOLIC 12200 AST 16 U/L 2016 Unknown COMPREHENSIVE METABOLIC 59717 ALT 12 U/L 2016 Unknown COMPREHENSIVE METABOLIC 22877 BUN 22 mg/dL 2016 Unknown COMPREHENSIVE METABOLIC 81893 ALBUMIN 4.2 g/dL 2016 Unknown COMPREHENSIVE METABOLIC 89558 CHLORIDE 104 mmol/L 12/11 Unknown COMPREHENSIVE METABOLIC 26732 Bili Total 0.7 mg/dL 12/11 Unknown COMPREHENSIVE METABOLIC 28166 ALK PHOS 78 U/L 2016 Unknown COMPREHENSIVE METABOLIC 11031 SODIUM 143 mmol/L 12/11 Unknown COMPREHENSIVE METABOLIC 46819 CREATININE 0.69 mg/dL 11/23 Unknown COMPREHENSIVE METABOLIC 21260 CALCIUM 9.5 mg/dL 2016 Unknown COMPREHENSIVE METABOLIC 70945 POTASSIUM 3.9 mmol/L 12/11 Unknown COMPREHENSIVE METABOLIC 84959 Total Protein 7.1 g/dL Unknown COMPREHENSIVE METABOLIC 67380 Glucose 103 mg/dL 2016 Unknown COMPREHENSIVE METABOLIC 33578 Bicarbonate 30 mmol/L 11/23 Unknown COMPREHENSIVE METABOLIC 73018 AGAP 9 mmol/L 2016 Unknown GFR CALC 1661973 GFR Non Afr Amr >60 mL/min 12/11/2016 Un known GFR CALC 0096689 GFR Afr Amr >60 mL/min 12/11/2016 Unknow n MEAN GLUC 2598675 Calc Mean Gluc 120 mg/dL 12/11/2016 Unkn own LIPID GROUP 49226 Cholesterol 162 mg/dL 12/11/2016 Unkno wn LIPID GROUP 60310 Triglyceride 80 mg/dL 12/11/2016 Unkn own LIPID GROUP 83595 HDL CHOLESTEROL 65 mg/dL 12/11/2016 U nknown LIPID GROUP 40917 Chol/HDL Ratio 2.49 ratio 12/11/2016 U nknown LIPID GROUP 94465 NON-HDL Chol 97 mg/dL 12/11/2016 Unkn own LIPID GROUP 17345 LDL Cholesterol 81 mg/dL 12/11/2016 U nknown FREE T4 33563 T4 Free 1.46 ng/dL 12/11/2016 Unknown THYROID STIMULATING HORMONE 40830 TSH 2.578 uIU/mL 12/11/2016 Unknown GLYCOSYLATED HEMOGLOBIN TEST 50666 Hgb A1c 47836-2 5.8 % 0 12/11/2016 Unknown FREE T4 95101 FREE T4 1.68 NG/DL 05/27/2015 Unknown LIPID GROUP 14522 HDL TEST 67 MG/DL 05/27/2015 Unknown LIPID GROUP 99305 TRIG 92 MG/DL 05/27/2015 Unknown LIPID GROUP 55995 TEST LDL 84 MG/DL 05/27/2015 Unknown LIPID GROUP 94760 CHOL 169 MG/DL 05/27/2015 Unknown LIPID GROUP 96711 RCHOL/HDL 2.52 RATIO 05/27/2015 Unknow n LIPID GROUP 37027 NON-HDL CH 102 MG/DL 05/27/2015 Unknow n GLYCOSYLATED HEMOGLOBIN TEST 45775 A1C HPLC 74576-6 5.9 % 0 05/27/2015 Unknown VITAMIN B 12 20129 VIT B 12 308 PG/ML 05/27/2015 Unknow n GFR CALC 0789291 GFR AA >60 ML/MIN 05/27/2015 Unknown GFR CALC 5040259 GFR NON-AA >60 ML/MIN 05/27/2015 Unknown COMPREHENSIVE METABOLIC 23126 AST 20 U/L 2014 Unknown COMPREHENSIVE METABOLIC 02369 ALT 15 IU/L 2014 Unknown COMPREHENSIVE METABOLIC 72440 BUN 17 MG/DL 2014 Unknown COMPREHENSIVE METABOLIC 94880 ALBUMIN 4.3 GM/DL 2014 Unknown COMPREHENSIVE METABOLIC 22057 CHLORIDE 107 MMOL/L 05/27 Unknown COMPREHENSIVE METABOLIC 17047 BILI TOT 0.9 MG/DL 2014 Unknown COMPREHENSIVE METABOLIC 69475 ALK PHOS 85 U/L 2014 Unknown COMPREHENSIVE METABOLIC 34113 SODIUM 144 MMOL/L 05/27 Unknown COMPREHENSIVE METABOLIC 58489 CREATININE 0.76 MG/DL 11/2014 Unknown COMPREHENSIVE METABOLIC 33117 CALCIUM 9.5 MG/DL 2014 Unknown COMPREHENSIVE METABOLIC 91858 POTASSIUM 4.2 MMOL/L 05/27 Unknown COMPREHENSIVE METABOLIC 90497 PROT TOT 7.1 GM/DL 2014 Unknown COMPREHENSIVE METABOLIC 78277 Glucose 95 MG/DL 2014 Unknown COMPREHENSIVE METABOLIC 03928 BICARB 30 MMOL/L 2014 Unknown COMPREHENSIVE METABOLIC 54774 ANION GAP 7 MEQ/L 2014 Unknown COMPLETE BLOOD COUNT 4714427 WBC 6.5 10e9/L 05/27/20 15 Unknown COMPLETE BLOOD COUNT 1261204 RBC 4.35 10e12/L 2014 Unknown COMPLETE BLOOD COUNT 9890031 HGB 12.4 g/dL 5 Unknown COMPLETE BLOOD COUNT 6235295 HCT DET 39.3 % 5 Unknown COMPLETE BLOOD COUNT 9803161 MCV 90.3 fL 5 Unknown COMPLETE BLOOD COUNT 3239347 MCH 28.5 pg 5 Unknown COMPLETE BLOOD COUNT 7413487 MCHC 31.6 g/dL 5 Unknown COMPLETE BLOOD COUNT 9227459 PLT 245 10e9/L 05/27/20 15 Unknown COMPLETE BLOOD COUNT 4898324 MPV 11.1 fL 5 Unknown COMPLETE BLOOD COUNT 3854138 CRISTI % 53.9 % 5 Unknown COMPLETE BLOOD COUNT 9548693 LY % 30.8 % 5 Unknown COMPLETE BLOOD COUNT 1103569 MON % 11.2 % 5 Unknown COMPLETE BLOOD COUNT 2564393 EOS % 3.2 % 5 Unknown COMPLETE BLOOD COUNT 9278630 BASO % 0.9 % 5 Unknown COMPLETE BLOOD COUNT 9818537 RDW 14.5 % 5 Unknown COMPLETE BLOOD COUNT 6556748 ABS CRISTI 3.50 10e9/L 015 Unknown COMPLETE BLOOD COUNT 1091798 ABS LYMPH 2.00 10e9/L 015 Unknown COMPLETE BLOOD COUNT 9369680 ABS MONO 0.73 10e9/L 015 Unknown COMPLETE BLOOD COUNT 9132025 ABS EOS 0.21 10e9/L 015 Unknown COMPLETE BLOOD COUNT 7164820 ABS BASO 0.06 10e9/L 015 Unknown COMPLETE BLOOD COUNT 7666443 RDW-SD 46.3 fL 5 Unknown THYROID STIMULATING HORMONE 19877 TSH 2.909 uIU/ML 05/27/2015 Unknown IRON 64085 IRON TEST 63 UG/DL 12/15/2014 Unknown COMPLETE BLOOD COUNT 2528349 WBC 6.3 10e9/L 12/16/19 15 Unknown COMPLETE BLOOD COUNT 6320188 RBC 4.37 10e12/L 2014 Unknown COMPLETE BLOOD COUNT 4615556 HGB 12.6 g/dL 5 Unknown COMPLETE BLOOD COUNT 0438061 HCT DET 39.2 % 5 Unknown COMPLETE BLOOD COUNT 1208301 MCV 89.7 fL 5 Unknown COMPLETE BLOOD COUNT 6867827 MCH 28.8 pg 5 Unknown COMPLETE BLOOD COUNT 5311096 MCHC 32.1 g/dL 5 Unknown COMPLETE BLOOD COUNT 5754378 PLT 252 10e9/L 12/16/19 15 Unknown COMPLETE BLOOD COUNT 6947766 MPV 10.8 fL 5 Unknown COMPLETE BLOOD COUNT 4251356 CRISTI % 60.5 % 5 Unknown COMPLETE BLOOD COUNT 8478132 LY % 24.4 % 5 Unknown COMPLETE BLOOD COUNT 2065159 MON % 11.8 % 5 Unknown COMPLETE BLOOD COUNT 8130136 EOS % 2.7 % 5 Unknown COMPLETE BLOOD COUNT 3883166 BASO % 0.6 % 5 Unknown COMPLETE BLOOD COUNT 5549861 RDW 14.0 % 5 Unknown COMPLETE BLOOD COUNT 7932655 ABS CRISTI 3.81 10e9/L 015 Unknown COMPLETE BLOOD COUNT 4013968 ABS LYMPH 1.54 10e9/L 015 Unknown COMPLETE BLOOD COUNT 4253868 ABS MONO 0.74 10e9/L 015 Unknown COMPLETE BLOOD COUNT 1986018 ABS EOS 0.17 10e9/L 015 Unknown COMPLETE BLOOD COUNT 3747002 ABS BASO 0.04 10e9/L 015 Unknown COMPLETE BLOOD COUNT 9466200 RDW-SD 44.6 fL 5 Unknown GFR CALC 8835632 GFR AA >60 ML/MIN 11/26/2014 Unknown GFR CALC 8510809 GFR NON-AA >60 ML/MIN 11/26/2014 Unknown COMPREHENSIVE METABOLIC 67219 AST 16 U/L 2014 Unknown COMPREHENSIVE METABOLIC 44430 ALT 15 IU/L 2014 Unknown COMPREHENSIVE METABOLIC 44129 BUN 21 MG/DL 2014 Unknown COMPREHENSIVE METABOLIC 87562 ALBUMIN 4.4 GM/DL 2014 Unknown COMPREHENSIVE METABOLIC 43203 CHLORIDE 106 MMOL/L 11/26 Unknown COMPREHENSIVE METABOLIC 61588 BILI TOT 0.9 MG/DL 2014 Unknown COMPREHENSIVE METABOLIC 90348 ALK PHOS 83 U/L 2014 Unknown COMPREHENSIVE METABOLIC 24306 SODIUM 141 MMOL/L 11/26 Unknown COMPREHENSIVE METABOLIC 52899 CREATININE 0.68 MG/DL 01/2015 Unknown COMPREHENSIVE METABOLIC 50682 CALCIUM 9.4 MG/DL 2014 Unknown COMPREHENSIVE METABOLIC 96606 POTASSIUM 3.8 MMOL/L 11/26 Unknown COMPREHENSIVE METABOLIC 42078 PROT TOT 7.2 GM/DL 2014 Unknown COMPREHENSIVE METABOLIC 81306 Glucose 100 MG/DL 2014 Unknown COMPREHENSIVE METABOLIC 63997 BICARB 29 MMOL/L 2014 Unknown COMPREHENSIVE METABOLIC 71071 ANION GAP 6 MEQ/L 2014 Unknown LIPID GROUP 31940 HDL TEST 72 MG/DL 11/26/2014 Unknown LIPID GROUP 87831 TRIG 101 MG/DL 11/26/2014 Unknown LIPID GROUP 84966 TEST LDL 82 MG/DL 11/26/2014 Unknown LIPID GROUP 46471 CHOL 174 MG/DL 11/26/2014 Unknown LIPID GROUP 63208 RCHOL/HDL 2.42 RATIO 11/26/2014 Unknow n LIPID GROUP 82676 NON-HDL CH 102 MG/DL 11/26/2014 Unknow n GFR CALC 0644966 GFR AA >60 ML/MIN 08/14/2014 Unknown GFR CALC 0014517 GFR NON-AA >60 ML/MIN 08/14/2014 Unknown THYROID STIMULATING HORMONE 78019 TSH 2.261 uIU/ML 08/14/2014 Unknown COMPLETE BLOOD COUNT 1526964 WBC 5.8 10e9/L 08/14/20 14 Unknown COMPLETE BLOOD COUNT 6858337 RBC 4.33 10e12/L 2013 Unknown COMPLETE BLOOD COUNT 5788516 HGB 12.5 g/dL 4 Unknown COMPLETE BLOOD COUNT 2353806 HCT DET 39.2 % 4 Unknown COMPLETE BLOOD COUNT 3092562 MCV 90.5 fL 4 Unknown COMPLETE BLOOD COUNT 9101367 MCH 28.9 pg 4 Unknown COMPLETE BLOOD COUNT 3206847 MCHC 31.9 g/dL 4 Unknown COMPLETE BLOOD COUNT 2190790 PLT 260 10e9/L 08/14/20 14 Unknown COMPLETE BLOOD COUNT 1520187 MPV 10.9 fL 4 Unknown COMPLETE BLOOD COUNT 3529924 CRISTI % 52.9 % 4 Unknown COMPLETE BLOOD COUNT 3706098 LY % 31.0 % 4 Unknown COMPLETE BLOOD COUNT 2815050 MON % 11.3 % 4 Unknown COMPLETE BLOOD COUNT 7526421 EOS % 3.6 % 4 Unknown COMPLETE BLOOD COUNT 5350876 BASO % 1.2 % 4 Unknown COMPLETE BLOOD COUNT 7316924 RDW 13.9 % 4 Unknown COMPLETE BLOOD COUNT 0699019 ABS CRISTI 3.07 10e9/L 014 Unknown COMPLETE BLOOD COUNT 7263076 ABS LYMPH 1.80 10e9/L 014 Unknown COMPLETE BLOOD COUNT 8867560 ABS MONO 0.66 10e9/L 014 Unknown COMPLETE BLOOD COUNT 1379597 ABS EOS 0.21 10e9/L 014 Unknown COMPLETE BLOOD COUNT 7275515 ABS BASO 0.07 10e9/L 014 Unknown COMPLETE BLOOD COUNT 6956190 RDW-SD 44.8 fL 4 Unknown COMPREHENSIVE METABOLIC 56163 AST 15 U/L 2013 Unknown COMPREHENSIVE METABOLIC 02415 ALT 13 IU/L 2013 Unknown COMPREHENSIVE METABOLIC 80537 BUN 18 MG/DL 2013 Unknown COMPREHENSIVE METABOLIC 73247 ALBUMIN 4.4 GM/DL 2013 Unknown COMPREHENSIVE METABOLIC 16632 CHLORIDE 105 MMOL/L 08/14 Unknown COMPREHENSIVE METABOLIC 09161 BILI TOT 1.0 MG/DL 2013 Unknown COMPREHENSIVE METABOLIC 86677 ALK PHOS 88 U/L 2013 Unknown COMPREHENSIVE METABOLIC 07255 SODIUM 143 MMOL/L 08/14 Unknown COMPREHENSIVE METABOLIC 82690 CREATININE 0.70 MG/DL 07/26 Unknown COMPREHENSIVE METABOLIC 37520 CALCIUM 9.6 MG/DL 2013 Unknown COMPREHENSIVE METABOLIC 21179 POTASSIUM 3.9 MMOL/L 08/14 Unknown COMPREHENSIVE METABOLIC 60513 PROT TOT 7.0 GM/DL 2013 Unknown COMPREHENSIVE METABOLIC 67940 Glucose 100 MG/DL 2013 Unknown COMPREHENSIVE METABOLIC 55871 BICARB 31 MMOL/L 2013 Unknown COMPREHENSIVE METABOLIC 48827 ANION GAP 7 MEQ/L 2013 Unknown FREE T4 44894 FREE T4 1.59 NG/DL 08/14/2014 Unknown LIPID GROUP 43907 HDL TEST 66 MG/DL 08/14/2014 Unknown LIPID GROUP 25667 TRIG 106 MG/DL 08/14/2014 Unknown LIPID GROUP 47914 TEST LDL 152 MG/DL 08/14/2014 Unknown LIPID GROUP 67488 CHOL 239 MG/DL 08/14/2014 Unknown LIPID GROUP 74342 RCHOL/HDL 3.62 RATIO 08/14/2014 Unknow n LIPID GROUP 76323 NON-HDL CH 173 MG/DL 08/14/2014 Unknow n COMPREHENSIVE METABOLIC 44192 AST 16 U/L 2013 Unknown COMPREHENSIVE METABOLIC 75185 ALT 13 IU/L 2013 Unknown COMPREHENSIVE METABOLIC 13006 BUN 20 MG/DL 2013 Unknown COMPREHENSIVE METABOLIC 50799 ALBUMIN 4.4 GM/DL 2013 Unknown COMPREHENSIVE METABOLIC 93796 CHLORIDE 104 MMOL/L 02/04 Unknown COMPREHENSIVE METABOLIC 35353 BILI TOT 0.8 MG/DL 2013 Unknown COMPREHENSIVE METABOLIC 10451 ALK PHOS 79 U/L 2013 Unknown COMPREHENSIVE METABOLIC 08370 SODIUM 141 MMOL/L 02/04 Unknown COMPREHENSIVE METABOLIC 67461 CREATININE 0.73 MG/DL 01/22 Unknown COMPREHENSIVE METABOLIC 11120 CALCIUM 9.6 MG/DL 2013 Unknown COMPREHENSIVE METABOLIC 94510 POTASSIUM 4.0 MMOL/L 02/04 Unknown COMPREHENSIVE METABOLIC 64846 PROT TOT 7.2 GM/DL 2013 Unknown COMPREHENSIVE METABOLIC 82406 Glucose 96 MG/DL 2013 Unknown COMPREHENSIVE METABOLIC 02576 BICARB 31 MMOL/L 2013 Unknown COMPREHENSIVE METABOLIC 50512 ANION GAP 6 MEQ/L 2013 Unknown GFR CALC [id number] GFR AA >60 ML/MIN 02/04/2014 Unknown GFR CALC [id number] GFR NON-AA >60 ML/MIN 02/04/2014 Unknown FREE T4 57471 FREE T4 1.59 NG/DL 02/04/2014 Unknown COMPLETE BLOOD COUNT [id number] WBC 5.9 10e9/L 02/05/20 14 Unknown COMPLETE BLOOD COUNT [id number] RBC 4.37 10e12/L 2013 Unknown COMPLETE BLOOD COUNT 3536892 HGB 12.6 g/dL 4 Unknown COMPLETE BLOOD COUNT 4448276 HCT DET 39.0 % 4 Unknown COMPLETE BLOOD COUNT 7831057 MCV 89.2 fL 4 Unknown COMPLETE BLOOD COUNT 1239896 MCH 28.8 pg 4 Unknown COMPLETE BLOOD COUNT 1833700 MCHC 32.3 g/dL 4 Unknown COMPLETE BLOOD COUNT 4300516 PLT 265 10e9/L 02/05/20 14 Unknown COMPLETE BLOOD COUNT [id number] MPV 10.8 fL 4 Unknown COMPLETE BLOOD COUNT 9504305 CRISTI % 55.5 % 4 Unknown COMPLETE BLOOD COUNT 8354283 LY % 30.8 % 4 Unknown COMPLETE BLOOD COUNT 4721153 MON % 10.0 % 4 Unknown COMPLETE BLOOD COUNT 6750756 EOS % 2.7 % 4 Unknown COMPLETE BLOOD COUNT 9658774 BASO % 1.0 % 4 Unknown COMPLETE BLOOD COUNT 3192753 RDW 14.2 % 4 Unknown COMPLETE BLOOD COUNT 6535179 ABS CRISTI 3.27 10e9/L 014 Unknown COMPLETE BLOOD COUNT 5275383 ABS LYMPH 1.82 10e9/L 014 Unknown COMPLETE BLOOD COUNT 3037951 ABS MONO 0.59 10e9/L 014 Unknown COMPLETE BLOOD COUNT 3410731 ABS EOS 0.16 10e9/L 014 Unknown COMPLETE BLOOD COUNT 6403444 ABS BASO 0.06 10e9/L 014 Unknown COMPLETE BLOOD COUNT 9756422 RDW-SD 45.2 fL 4 Unknown LIPID GROUP 73965 HDL TEST 69 MG/DL 02/04/2014 Unknown LIPID GROUP 03389 TRIG 121 MG/DL 02/04/2014 Unknown LIPID GROUP 96463 TEST LDL 144 MG/DL 02/04/2014 Unknown LIPID GROUP 50906 CHOL 237 MG/DL 02/04/2014 Unknown LIPID GROUP 85597 RCHOL/HDL 3.43 RATIO 02/04/2014 Unknow n THYROID STIMULATING HORMONE 59954 TSH 2.310 uIU/ML 02/04/2014 Unknown THYROID STIMULATING HORMONE 89698 TSH 2.429 uIU/ML 03/18/2012 Unknown COMPREHENSIVE METABOLIC 73153 AST 17 U/L 2011 Unknown COMPREHENSIVE METABOLIC 91092 ALT 15 IU/L 2011 Unknown COMPREHENSIVE METABOLIC 28945 BUN 17 MG/DL 2011 Unknown COMPREHENSIVE METABOLIC 89387 ALBUMIN 4.1 GM/DL 2011 Unknown COMPREHENSIVE METABOLIC 45822 CHLORIDE 108 MMOL/L 03/18 Unknown COMPREHENSIVE METABOLIC 23888 BILI TOT 0.7 MG/DL 2011 Unknown COMPREHENSIVE METABOLIC 02303 ALK PHOS 79 U/L 2011 Unknown COMPREHENSIVE METABOLIC 17425 SODIUM 144 MMOL/L 03/18 Unknown COMPREHENSIVE METABOLIC 77590 CREATININE 0.68 MG/DL 02/23 Unknown COMPREHENSIVE METABOLIC 33912 CALCIUM 9.0 MG/DL 2011 Unknown COMPREHENSIVE METABOLIC 17705 POTASSIUM 3.7 MMOL/L 03/18 Unknown COMPREHENSIVE METABOLIC 31716 PROT TOT 6.6 GM/DL 2011 Unknown COMPREHENSIVE METABOLIC 96118 Glucose 99 MG/DL 2011 Unknown COMPREHENSIVE METABOLIC 56112 BICARB 28 MMOL/L 2011 Unknown COMPREHENSIVE METABOLIC 86216 ANION GAP 8 MEQ/L 2011 Unknown LIPID GROUP 08215 HDL TEST 65 MG/DL 03/18/2012 Unknown LIPID GROUP 82852 TRIG 86 MG/DL 03/18/2012 Unknown LIPID GROUP 80325 TEST LDL 153 MG/DL 03/18/2012 Unknown LIPID GROUP 24290 CHOL 235 MG/DL 03/18/2012 Unknown LIPID GROUP 76448 RCHOL/HDL 3.62 RATIO 03/18/2012 Unknow n GFR CALC 1555932 GFR AA >60 ML/MIN 03/18/2012 Unknown GFR CALC 6607797 GFR NON-AA >60 ML/MIN 03/18/2012 Unknown COMPLETE BLOOD COUNT 24278 WBC 5.1 10e9/L 03/18/20 12 Unknown COMPLETE BLOOD COUNT 92363 RBC 4.32 10e12/L 2011 Unknown COMPLETE BLOOD COUNT 64147 HGB 12.4 g/dL 2 Unknown COMPLETE BLOOD COUNT 13796 HCT DET 38.4 % 2 Unknown COMPLETE BLOOD COUNT 55271 MCV 88.9 fL 2 Unknown COMPLETE BLOOD COUNT 37406 MCH 28.7 pg 2 Unknown COMPLETE BLOOD COUNT 10401 MCHC 32.3 g/dL 2 Unknown COMPLETE BLOOD COUNT 53037 PLT 245 10e9/L 03/18/20 12 Unknown COMPLETE BLOOD COUNT 74576 MPV 10.7 fL 2 Unknown COMPLETE BLOOD COUNT 86729 CRISTI % 52.9 % 2 Unknown COMPLETE BLOOD COUNT 58106 LY % 31.5 % 2 Unknown COMPLETE BLOOD COUNT 76625 MON % 12.3 % 2 Unknown COMPLETE BLOOD COUNT 50060 EOS % 2.9 % 2 Unknown COMPLETE BLOOD COUNT 44231 BASO % 0.4 % 2 Unknown COMPLETE BLOOD COUNT 94119 RDW 13.9 % 2 Unknown COMPLETE BLOOD COUNT 22110 ABS CRISTI 2.70 10e9/L 012 Unknown COMPLETE BLOOD COUNT 00172 ABS LYMPH 1.61 10e9/L 012 Unknown COMPLETE BLOOD COUNT 69967 ABS MONO 0.63 10e9/L 012 Unknown COMPLETE BLOOD COUNT 98247 ABS EOS 0.15 10e9/L 012 Unknown COMPLETE BLOOD COUNT 66402 ABS BASO 0.02 10e9/L 012 Unknown COMPLETE BLOOD COUNT 93415 RDW-SD 44.5 fL 2 Unknown FREE T4 00102 FREE T4 1.50 NG/DL 03/18/2012 Unknown LIPID GROUP 69196 HDL TEST 61 MG/DL 07/13/2011 Unknown LIPID GROUP 89567 TRIG 158 MG/DL 07/13/2011 Unknown LIPID GROUP 06110 TEST LDL 131 MG/DL 07/13/2011 Unknown LIPID GROUP 97841 CHOL 224 MG/DL 07/13/2011 Unknown LIPID GROUP 38485 RCHOL/HDL 3.67 RATIO 07/13/2011 Unknow n COMPREHENSIVE METABOLIC 76794 AST 19 U/L 2010 Unknown COMPREHENSIVE METABOLIC 93185 ALT 17 IU/L 2010 Unknown COMPREHENSIVE METABOLIC 01596 BUN 14 MG/DL 2010 Unknown COMPREHENSIVE METABOLIC 50125 ALBUMIN 4.2 GM/DL 2010 Unknown COMPREHENSIVE METABOLIC 93325 CHLORIDE 105 MMOL/L 07/13 Unknown COMPREHENSIVE METABOLIC 82689 BILI TOT 0.9 MG/DL 2010 Unknown COMPREHENSIVE METABOLIC 54381 ALK PHOS 71 U/L 2010 Unknown COMPREHENSIVE METABOLIC 32165 SODIUM 141 MMOL/L 07/13 Unknown COMPREHENSIVE METABOLIC 32100 CREATININE 0.68 MG/DL 06/25 Unknown COMPREHENSIVE METABOLIC 08702 CALCIUM 9.3 MG/DL 2010 Unknown COMPREHENSIVE METABOLIC 27959 POTASSIUM 3.8 MMOL/L 07/13 Unknown COMPREHENSIVE METABOLIC 21703 PROT TOT 6.5 GM/DL 2010 Unknown COMPREHENSIVE METABOLIC 84123 Glucose 94 MG/DL 2010 Unknown COMPREHENSIVE METABOLIC 77260 BICARB 28 MMOL/L 2010 Unknown COMPREHENSIVE METABOLIC 09193 ANION GAP 8 MEQ/L 2010 Unknown COMPLETE BLOOD COUNT 89124 WBC 5.4 10e9/L 07/13/20 11 Unknown COMPLETE BLOOD COUNT 49772 RBC 4.20 10e12/L 2010 Unknown COMPLETE BLOOD COUNT 35589 HGB 12.4 g/dL 1 Unknown COMPLETE BLOOD COUNT 31328 HCT DET 37.6 % 1 Unknown COMPLETE BLOOD COUNT 79661 MCV 89.5 fL 1 Unknown COMPLETE BLOOD COUNT 27491 MCH 29.5 pg 1 Unknown COMPLETE BLOOD COUNT 78813 MCHC 33.0 g/dL 1 Unknown COMPLETE BLOOD COUNT 89801 PLT 273 10e9/L 07/13/20 11 Unknown COMPLETE BLOOD COUNT 54930 MPV 10.7 fL 1 Unknown COMPLETE BLOOD COUNT 31240 CRISTI % 49.9 % 1 Unknown COMPLETE BLOOD COUNT 04061 LY % 35.9 % 1 Unknown COMPLETE BLOOD COUNT 09910 MON % 10.4 % 1 Unknown COMPLETE BLOOD COUNT 61834 EOS % 2.9 % 1 Unknown COMPLETE BLOOD COUNT 62089 BASO % 0.9 % 1 Unknown COMPLETE BLOOD COUNT 90776 RDW 13.8 % 1 Unknown COMPLETE BLOOD COUNT 50792 ABS CRISTI 2.69 10e9/L 011 Unknown COMPLETE BLOOD COUNT 63838 ABS LYMPH 1.94 10e9/L 011 Unknown COMPLETE BLOOD COUNT 08407 ABS MONO 0.56 10e9/L 011 Unknown COMPLETE BLOOD COUNT 66907 ABS EOS 0.16 10e9/L 011 Unknown COMPLETE BLOOD COUNT 66230 ABS BASO 0.05 10e9/L 011 Unknown COMPLETE BLOOD COUNT 09465 RDW-SD 44.4 fL 1 Unknown GFR CALC 0240739 GFR AA >60 ML/MIN 07/13/2011 Unknown GFR CALC 6023038 GFR NON-AA >60 ML/MIN 07/13/2011 Unknown FREE T4 18813 FREE T4 1.36 NG/DL 07/13/2011 Unknown THYROID STIMULATING HORMONE 55716 TSH 4.261 uIU/ML 07/13/2011 Unknown GFR CALC 3703180 GFR AA >60 ML/MIN 03/13/2011 Unknown GFR CALC 9307115 GFR NON-AA >60 ML/MIN 03/13/2011 Unknown LIPID GROUP 25682 HDL TEST 60 MG/DL 03/13/2011 Unknown LIPID GROUP 45938 TRIG 140 MG/DL 03/13/2011 Unknown LIPID GROUP 95092 TEST LDL 122 MG/DL 03/13/2011 Unknown LIPID GROUP 98852 CHOL 210 MG/DL 03/13/2011 Unknown LIPID GROUP 34808 RCHOL/HDL 3.50 RATIO 03/13/2011 Unknow n FREE T4 59907 FREE T4 1.36 NG/DL 03/13/2011 Unknown THYROID STIMULATING HORMONE 76253 TSH 7.688 uIU/ML 03/13/2011 Unknown COMPREHENSIVE METABOLIC 20654 AST 17 U/L 2010 Unknown COMPREHENSIVE METABOLIC 34962 ALT 12 IU/L 2010 Unknown COMPREHENSIVE METABOLIC 94957 BUN 19 MG/DL 2010 Unknown COMPREHENSIVE METABOLIC 72523 ALBUMIN 4.3 GM/DL 2010 Unknown COMPREHENSIVE METABOLIC 33897 CHLORIDE 105 MMOL/L 03/13 Unknown COMPREHENSIVE METABOLIC 90145 BILI TOT 0.6 MG/DL 2010 Unknown COMPREHENSIVE METABOLIC 09633 ALK PHOS 68 U/L 2010 Unknown COMPREHENSIVE METABOLIC 80861 SODIUM 139 MMOL/L 03/13 Unknown COMPREHENSIVE METABOLIC 48546 CREATININE 0.77 MG/DL 02/23 Unknown COMPREHENSIVE METABOLIC 77251 CALCIUM 9.2 MG/DL 2010 Unknown COMPREHENSIVE METABOLIC 02075 POTASSIUM 3.8 MMOL/L 03/13 Unknown COMPREHENSIVE METABOLIC 00893 PROT TOT 6.9 GM/DL 2010 Unknown COMPREHENSIVE METABOLIC 32346 Glucose 97 MG/DL 2010 Unknown COMPREHENSIVE METABOLIC 40465 BICARB 25 MMOL/L 2010 Unknown COMPREHENSIVE METABOLIC 14571 ANION GAP 9 MEQ/L 2010 Unknown FREE T4 78360 FREE T4 1.32 NG/DL 12/16/2010 Unknown COMPLETE BLOOD COUNT 00310 WBC 5.6 10e9/L 12/17/19 11 Unknown COMPLETE BLOOD COUNT 97331 RBC 4.38 10e12/L 2010 Unknown COMPLETE BLOOD COUNT 40208 HGB 12.5 g/dL 1 Unknown COMPLETE BLOOD COUNT 00923 HCT DET 38.7 % 1 Unknown COMPLETE BLOOD COUNT 06793 MCV 88.4 fL 1 Unknown COMPLETE BLOOD COUNT 78233 MCH 28.5 pg 1 Unknown COMPLETE BLOOD COUNT 66691 MCHC 32.3 g/dL 1 Unknown COMPLETE BLOOD COUNT 36508 PLT 249 10e9/L 12/17/19 11 Unknown COMPLETE BLOOD COUNT 91392 MPV 10.5 fL 1 Unknown COMPLETE BLOOD COUNT 27201 CRISTI % 52.8 % 1 Unknown COMPLETE BLOOD COUNT 38008 LY % 33.3 % 1 Unknown COMPLETE BLOOD COUNT 69331 MON % 9.8 % 1 Unknown COMPLETE BLOOD COUNT 82291 EOS % 3.4 % 1 Unknown COMPLETE BLOOD COUNT 08306 BASO % 0.7 % 1 Unknown COMPLETE BLOOD COUNT 77414 RDW 14.2 % 1 Unknown COMPLETE BLOOD COUNT 90567 ABS CRISTI 2.96 10e9/L 011 Unknown COMPLETE BLOOD COUNT 81286 ABS LYMPH 1.86 10e9/L 011 Unknown COMPLETE BLOOD COUNT 11900 ABS MONO 0.55 10e9/L 011 Unknown COMPLETE BLOOD COUNT 47979 ABS EOS 0.19 10e9/L 011 Unknown COMPLETE BLOOD COUNT 27574 ABS BASO 0.04 10e9/L 011 Unknown COMPLETE BLOOD COUNT 07696 RDW-SD 45.1 fL 1 Unknown GFR CALC 2771538 GFR AA >60 ML/MIN 12/16/2010 Unknown GFR CALC 2856449 GFR NON-AA >60 ML/MIN 12/16/2010 Unknown THYROID STIMULATING HORMONE 26094 TSH 7.082 uIU/ML 12/16/2010 Unknown COMPREHENSIVE METABOLIC 19813 AST 21 U/L 2010 Unknown COMPREHENSIVE METABOLIC 67505 ALT 18 IU/L 2010 Unknown COMPREHENSIVE METABOLIC 74080 BUN 22 MG/DL 2010 Unknown COMPREHENSIVE METABOLIC 27300 ALBUMIN 4.6 GM/DL 2010 Unknown COMPREHENSIVE METABOLIC 91139 CHLORIDE 102 MMOL/L 12/16 Unknown COMPREHENSIVE METABOLIC 02955 BILI TOT 0.6 MG/DL 2010 Unknown COMPREHENSIVE METABOLIC 68485 ALK PHOS 72 U/L 2010 Unknown COMPREHENSIVE METABOLIC 82849 SODIUM 140 MMOL/L 12/16 Unknown COMPREHENSIVE METABOLIC 25430 CREATININE 0.73 MG/DL 11/23 Unknown COMPREHENSIVE METABOLIC 65232 CALCIUM 9.4 MG/DL 2010 Unknown COMPREHENSIVE METABOLIC 57862 POTASSIUM 4.2 MMOL/L 12/16 Unknown COMPREHENSIVE METABOLIC 75653 PROT TOT 7.1 GM/DL 2010 Unknown COMPREHENSIVE METABOLIC 26138 Glucose 88 MG/DL 2010 Unknown COMPREHENSIVE METABOLIC 17905 BICARB 30 MMOL/L 2010 Unknown COMPREHENSIVE METABOLIC 31630 ANION GAP 8 MEQ/L 2010 Unknown LIPID GROUP 37967 HDL TEST 66 MG/DL 12/16/2010 Unknown LIPID GROUP 15966 TRIG 154 MG/DL 12/16/2010 Unknown LIPID GROUP 41341 TEST LDL 128 MG/DL 12/16/2010 Unknown LIPID GROUP 76142 CHOL 225 MG/DL 12/16/2010 Unknown LIPID GROUP 72173 RCHOL/HDL 3.41 RATIO 12/16/2010 Unknow n Procedures Procedure Codes Date ROUTINE VENIPUNCTURE CPT-4: 47496 02/28/2022 ASSAY OF FREE THYROXINE CPT-4: 54216 02/28/2022 ASSAY THYROID STIM HORMONE CPT-4: 83955 02/28/2022 COMPREHEN METABOLIC PANEL CPT-4: 67001 02/28/2022 COMPLETE CBC W/AUTO DIFF WBC CPT-4: 20506 02/28/2022 LIPID PANEL CPT-4: 16397 02/28/2022 A1C HPLC CPT-4: 61715 02/28/2022 SARSCOV & INF VIR A&B AG IA CPT-4: 24601 08/09/2021 CLEAR OUTER EAR CANAL CPT-4: 72688 08/09/2021 ROUTINE VENIPUNCTURE CPT-4: 64565 07/20/2021 ASSAY OF FREE THYROXINE CPT-4: 42353 07/20/2021 ASSAY THYROID STIM HORMONE CPT-4: 73584 07/20/2021 COMPREHEN METABOLIC PANEL CPT-4: 94451 07/20/2021 COMPLETE CBC W/AUTO DIFF WBC CPT-4: 27803 07/20/2021 A1C HPLC CPT-4: 33588 07/20/2021 DESTRUCT B9 LESION 1-14 CPT-4: 50533 05/12/2021 THER/PROPH/DIAG INJ SC/IM CPT-4: 19206 03/08/2021 TRIAMCINOLONE ACET INJ NOS CPT-4: J3301 03/08/2021 ROUTINE VENIPUNCTURE CPT-4: 38885 01/31/2021 COMPREHEN METABOLIC PANEL CPT-4: 59210 01/31/2021 COMPLETE CBC W/AUTO DIFF WBC CPT-4: 35638 01/31/2021 LIPID PANEL CPT-4: 85677 01/31/2021 ASSAY OF FREE THYROXINE CPT-4: 37972 01/31/2021 ASSAY THYROID STIM HORMONE CPT-4: 17334 01/31/2021 A1C HPLC CPT-4: 09508 01/31/2021 EXC TR-EXT B9+JOSE G 0.5 CM< CPT-4: 99341 05/19/2020 PPPS, subseq visit CPT-4: G0439 05/11/2020 ROUTINE VENIPUNCTURE CPT-4: 32286 05/05/2020 ASSAY OF FREE THYROXINE CPT-4: 94332 05/05/2020 ASSAY THYROID STIM HORMONE CPT-4: 02542 05/05/2020 COMPREHEN METABOLIC PANEL CPT-4: 83822 05/05/2020 COMPLETE CBC W/AUTO DIFF WBC CPT-4: 03287 05/05/2020 LIPID PANEL CPT-4: 83432 05/05/2020 A1C HPLC CPT-4: 75185 05/05/2020 THER/PROPH/DIAG INJ SC/IM CPT-4: 62347 01/28/2020 TRIAMCINOLONE ACET INJ NOS CPT-4: J3301 01/28/2020 ROUTINE VENIPUNCTURE CPT-4: 86572 01/05/2020 ASSAY OF FREE THYROXINE CPT-4: 88127 01/05/2020 ASSAY THYROID STIM HORMONE CPT-4: 71477 01/05/2020 COMPREHEN METABOLIC PANEL CPT-4: 68264 01/05/2020 COMPLETE CBC W/AUTO DIFF WBC CPT-4: 25287 01/05/2020 ASSAY OF AMYLASE CPT-4: 88810 01/05/2020 ASSAY OF LIPASE CPT-4: 12727 01/05/2020 ROUTINE VENIPUNCTURE CPT-4: 61413 12/05/2019 COMPREHEN METABOLIC PANEL CPT-4: 73152 12/05/2019 ROUTINE VENIPUNCTURE CPT-4: 18754 11/05/2019 COMPREHEN METABOLIC PANEL CPT-4: 99236 11/05/2019 URINALYSIS NONAUTO W/O SCOPE CPT-4: 66594 10/23/2019 URINE CULTURE/ COLONY COUNT CPT-4: 67865 10/23/2019 ROUTINE VENIPUNCTURE CPT-4: 94210 10/21/2019 ASSAY OF FREE THYROXINE CPT-4: 87898 10/21/2019 ASSAY THYROID STIM HORMONE CPT-4: 52958 10/21/2019 COMPREHEN METABOLIC PANEL CPT-4: 65186 10/21/2019 COMPLETE CBC W/AUTO DIFF WBC CPT-4: 59378 10/21/2019 LIPID PANEL CPT-4: 27963 10/21/2019 HYDRATION IV INFUSION INIT CPT-4: 24167 10/20/2019 Removal impacted cerumen using irrigation/lavage, unilateral CPT-4: 40545 10/20/2019 ROUTINE VENIPUNCTURE CPT-4: 03480 04/04/2019 COMPLETE CBC W/AUTO DIFF WBC CPT-4: 55160 04/04/2019 COMPREHEN METABOLIC PANEL CPT-4: 17564 04/04/2019 ASSAY THYROID STIM HORMONE CPT-4: 25477 04/04/2019 ASSAY OF FREE THYROXINE CPT-4: 68181 04/04/2019 LIPID PANEL CPT-4: 68341 04/04/2019 PPPS, subseq visit CPT-4: G0439 11/26/2018 ROUTINE VENIPUNCTURE CPT-4: 74367 10/07/2018 ASSAY THYROID STIM HORMONE CPT-4: 66088 10/07/2018 ASSAY OF FREE THYROXINE CPT-4: 92240 10/07/2018 COMPREHEN METABOLIC PANEL CPT-4: 25869 10/07/2018 COMPLETE CBC W/AUTO DIFF WBC CPT-4: 00606 10/07/2018 LIPID PANEL CPT-4: 76423 10/07/2018 A1C HPLC CPT-4: 87799 10/07/2018 CERUM REMOVAL CPT-4: 64703 06/25/2018 THER/PROPH/DIAG INJ SC/IM CPT-4: 57735 05/03/2018 TRIAMCINOLONE ACET INJ NOS CPT-4: J3301 05/03/2018 Removal impacted cerumen using irrigation/lavage, unilateral CPT-4: 92766 02/19/2018 ROUTINE VENIPUNCTURE CPT-4: 09179 02/13/2018 ASSAY OF FREE THYROXINE CPT-4: 76540 02/13/2018 ASSAY THYROID STIM HORMONE CPT-4: 95579 02/13/2018 COMPREHEN METABOLIC PANEL CPT-4: 68467 02/13/2018 COMPLETE CBC W/AUTO DIFF WBC CPT-4: 57826 02/13/2018 ROUTINE VENIPUNCTURE CPT-4: 33205 10/15/2017 ASSAY OF FREE THYROXINE CPT-4: 84434 10/15/2017 ASSAY THYROID STIM HORMONE CPT-4: 65532 10/15/2017 COMPREHEN METABOLIC PANEL CPT-4: 17440 10/15/2017 COMPLETE CBC W/AUTO DIFF WBC CPT-4: 54209 10/15/2017 LIPID PANEL CPT-4: 59874 10/15/2017 VITAMIN B-12 CPT-4: 71059 10/15/2017 CERUM REMOVAL CPT-4: 88976 07/24/2017 ROUTINE VENIPUNCTURE CPT-4: 87814 03/30/2017 VITAMIN B-12 CPT-4: 79395 03/30/2017 ROUTINE VENIPUNCTURE CPT-4: 19558 12/18/2016 VITAMIN B-12 CPT-4: 08664 12/18/2016 PPPS, subseq visit CPT-4: G0439 12/18/2016 ROUTINE VENIPUNCTURE CPT-4: 65837 12/11/2016 ASSAY OF FREE THYROXINE CPT-4: 46743 12/11/2016 ASSAY THYROID STIM HORMONE CPT-4: 34183 12/11/2016 COMPREHEN METABOLIC PANEL CPT-4: 00337 12/11/2016 COMPLETE CBC W/AUTO DIFF WBC CPT-4: 63932 12/11/2016 LIPID PANEL CPT-4: 34169 12/11/2016 A1C HPLC CPT-4: 03060 12/11/2016 URINALYSIS NONAUTO W/O SCOPE CPT-4: 54837 02/07/2016 ROUTINE VENIPUNCTURE CPT-4: 96101 05/27/2015 ASSAY OF FREE THYROXINE CPT-4: 66285 05/27/2015 ASSAY THYROID STIM HORMONE CPT-4: 74686 05/27/2015 COMPREHEN METABOLIC PANEL CPT-4: 94894 05/27/2015 COMPLETE CBC W/AUTO DIFF WBC CPT-4: 24367 05/27/2015 LIPID PANEL CPT-4: 89788 05/27/2015 VITAMIN B-12 CPT-4: 06807 05/27/2015 A1C HPLC CPT-4: 34257 05/27/2015 PNEUMOCOCCAL VACC 13 LEN IM CPT-4: 35505 05/26/2015 ADMIN PNEUMOCOCCAL VACCINE CPT-4: G0009 05/26/2015 CUR TOBACCO NON-USER CPT-4: G8457 05/26/2015 OCCULT BLOOD FECES CPT-4: 13329 02/19/2015 OCCULT BLOOD FECES CPT-4: 09442 01/20/2015 ROUTINE VENIPUNCTURE CPT-4: 98402 12/15/2014 ASSAY OF IRON CPT-4: 26553 12/15/2014 COMPLETE CBC W/AUTO DIFF WBC CPT-4: 85286 12/15/2014 CERUM REMOVAL CPT-4: 01191 11/30/2014 PRESCRIP TRANSMIT VIA ERX SY CPT-4: G8553 11/30/2014 ROUTINE VENIPUNCTURE CPT-4: 28228 11/26/2014 COMPREHEN METABOLIC PANEL CPT-4: 01527 11/26/2014 LIPID PANEL CPT-4: 46166 11/26/2014 ROUTINE VENIPUNCTURE CPT-4: 75882 08/14/2014 ASSAY OF FREE THYROXINE CPT-4: 03723 08/14/2014 ASSAY THYROID STIM HORMONE CPT-4: 79911 08/14/2014 COMPREHEN METABOLIC PANEL CPT-4: 19160 08/14/2014 COMPLETE CBC W/AUTO DIFF WBC CPT-4: 09979 08/14/2014 LIPID PANEL CPT-4: 57311 08/14/2014 PRESCRIP TRANSMIT VIA ERX SY CPT-4: G8553 07/23/2014 PRESCRIP TRANSMIT VIA ERX SY CPT-4: G8553 03/09/2014 PRESCRIP TRANSMIT VIA ERX SY CPT-4: G8553 02/05/2014 ROUTINE VENIPUNCTURE CPT-4: 01223 02/04/2014 ASSAY OF FREE THYROXINE CPT-4: 39439 02/04/2014 ASSAY THYROID STIM HORMONE CPT-4: 07148 02/04/2014 COMPREHEN METABOLIC PANEL CPT-4: 82024 02/04/2014 COMPLETE CBC W/AUTO DIFF WBC CPT-4: 31974 02/04/2014 LIPID PANEL CPT-4: 53977 02/04/2014 DRAIN/INJECT JOINT/BURSA CPT-4: 28130 04/07/2013 METHYLPREDNISOLONE 40 MG INJ CPT-4: J1030 04/07/2013 TRIAMCINOLONE ACET INJ NOS CPT-4: J3301 04/07/2013 PRESCRIP TRANSMIT VIA ERX SY CPT-4: G8553 04/07/2013 DRAIN/INJECT JOINT/BURSA CPT-4: 52605 10/09/2012 METHYLPREDNISOLONE 40 MG INJ CPT-4: J1030 10/09/2012 TRIAMCINOLONE ACET INJ NOS CPT-4: J3301 10/09/2012 PRESCRIP TRANSMIT VIA ERX SY CPT-4: G8553 03/28/2012 ROUTINE VENIPUNCTURE CPT-4: 87962 03/18/2012 ASSAY OF FREE THYROXINE CPT-4: 95039 03/18/2012 ASSAY THYROID STIM HORMONE CPT-4: 37568 03/18/2012 COMPREHEN METABOLIC PANEL CPT-4: 33525 03/18/2012 COMPLETE CBC W/AUTO DIFF WBC CPT-4: 19716 03/18/2012 LIPID PANEL CPT-4: 92251 03/18/2012 CERUM REMOVAL CPT-4: 71777 2012 OCCULT BLOOD FECES CPT-4: 09551 09/27/2011 CA SCREEN;PELVIC/BREAST EXAM CPT-4: G0101 09/27/2011 OBTAINING SCREEN PAP SMEAR CPT-4: Q0091 09/27/2011 CUR TOBACCO NON-USER CPT-4: G8457 09/13/2011 PRESCRIP TRANSMIT VIA ERX SY CPT-4: G8553 09/13/2011 PRESCRIP TRANSMIT VIA ERX SY CPT-4: G8553 08/07/2011 ROUTINE VENIPUNCTURE CPT-4: 72291 07/13/2011 ASSAY OF FREE THYROXINE CPT-4: 16969 07/13/2011 ASSAY THYROID STIM HORMONE CPT-4: 76854 07/13/2011 COMPREHEN METABOLIC PANEL CPT-4: 65727 07/13/2011 COMPLETE CBC W/AUTO DIFF WBC CPT-4: 24331 07/13/2011 LIPID PANEL CPT-4: 90491 07/13/2011 ROUTINE VENIPUNCTURE CPT-4: 77116 03/13/2011 COMPREHEN METABOLIC PANEL CPT-4: 29946 03/13/2011 LIPID PANEL CPT-4: 12935 03/13/2011 ASSAY THYROID STIM HORMONE CPT-4: 90936 03/13/2011 ASSAY OF FREE THYROXINE CPT-4: 14034 03/13/2011 PRESCRIP TRANSMIT VIA ERX SY CPT-4: G8553 01/04/2011 ROUTINE VENIPUNCTURE CPT-4: 62615 12/16/2010 LIPID PANEL CPT-4: 18955 12/16/2010 COMPLETE CBC W/AUTO DIFF WBC CPT-4: 35886 12/16/2010 COMPREHEN METABOLIC PANEL CPT-4: 55238 12/16/2010 ASSAY OF FREE THYROXINE CPT-4: 57138 12/16/2010 ASSAY THYROID STIM HORMONE CPT-4: 00762 12/16/2010 INJ TRIGGER POINT 1/2 MUSCL CPT-4: 99217 02/14/2010 TRIAMCINOLONE ACET INJ NOS CPT-4: J3301 02/14/2010 METHYLPREDNISOLONE 40 MG INJ CPT-4: J1030 02/14/2010 THER/PROPH/DIAG INJ SC/IM CPT-4: 45458 02/07/2010 KETOROLAC TROMETHAMINE INJ CPT-4: J1885 02/07/2010 ROUTINE VENIPUNCTURE CPT-4: 97031 12/22/2009 Vital Signs Date Vital 06/26/2022 Blood Pressure 1: 132/78 Code: 8480-6 BMI: 25.5 Code: 81905-8 Heart Rate 1: 96 bpm Height: 5'10" Code: 8302-2 SpO2: 98% Temperature: 36.2 (C) / 97.2 (F) Weight: 178 lbs Code: 96851-6 05/22/2022 Blood Pressure 1: 126/82 Code: 8480-6 BMI: 25.5 Code: 04262-3 Heart Rate 1: 104 bpm Height: 5'10" Code: 8302-2 Respiratory Rate: 20 bpm SpO2: 96% Temperature: 36.8 (C) / 98.2 (F) Weight: 178 lbs Code: 60994-7 02/27/2022 Blood Pressure 1: 142/82 Code: 8480-6 BMI: 25.5 Code: 90743-4 Heart Rate 1: 112 bpm Height: 5'10" Code: 8302-2 Respiratory Rate: 20 bpm SpO2: 96% Temperature: 36.8 (C) / 98.3 (F) Weight: 178 lbs Code: 86710-8 11/23/2021 Blood Pressure 1: 136/82 Code: 8480-6 BMI: 25.7 Code: 52986-6 Heart Rate 1: 72 bpm Height: 5'10" Code: 8302-2 Respiratory Rate: 20 bpm SpO2: 98% Temperature: 36.6 (C) / 97.9 (F) Weight: 179 lbs Code: 32847-6 10/12/2021 Blood Pressure 1: 128/92 Code: 8480-6 BMI: 25.5 Code: 24798-6 Heart Rate 1: 68 bpm Height: 5'10" Code: 8302-2 Respiratory Rate: 20 bpm SpO2: 98% Temperature: 36.7 (C) / 98.1 (F) Weight: 178 lbs Code: 12857-6 08/09/2021 Blood Pressure 1: 127/80 Code: 8480-6 Heart Rate 1: 69 bpm Respiratory Rate: 15 bpm SpO2: 98% Temperature: 36.7 (C) / 98.0 (F) We ight: 171 lbs Code: 42136-6 07/28/2021 Blood Pressure 1: 132/78 Code: 8480-6 Heart Rate 1: 76 bpm Respiratory Rate: 20 bpm SpO2: 96% Temperature: 36.8 (C) / 98.2 (F) We ight: 174 lbs Code: 27969-2 05/12/2021 Blood Pressure 1: 142/80 Code: 8480-6 Heart Rate 1: 76 bpm Respiratory Rate: 20 bpm SpO2: 96% Temperature: 36.8 (C) / 98.2 (F) We ight: 173 lbs Code: 75518-6 03/08/2021 Blood Pressure 1: 124/80 Code: 8480-6 Heart Rate 1: 88 bpm Respiratory Rate: 20 bpm SpO2: 98% Temperature: 36.8 (C) / 98.3 (F) We ight: 175 lbs Code: 65817-9 02/03/2021 Blood Pressure 1: 144/84 Code: 8480-6 Heart Rate 1: 68 bpm Respiratory Rate: 20 bpm SpO2: 97% Temperature: 36.7 (C) / 98.1 (F) We ight: 182 lbs Code: 09087-8 01/04/2021 Blood Pressure 1: 152/86 Code: 8480-6 Heart Rate 1: 72 bpm Respiratory Rate: 20 bpm SpO2: 97% Temperature: 36.6 (C) / 97.8 (F) We ight: 182 lbs Code: 33167-5 10/05/2020 Blood Pressure 1: 124/66 Code: 8480-6 He art Rate 1: 65 bpm 09/20/2020 Blood Pressure 1: 134/76 Code: 8480-6 Heart Rate 1: 60 bpm Respiratory Rate: 20 bpm SpO2: 97% Temperature: 36.1 (C) / 97.0 (F) We ight: 187 lbs Code: 25502-4 05/28/2020 Temperature: 36.8 (C) / 98.3 (F) 05/19/2020 Blood Pressure 1: 128/78 Code: 8480-6 Heart Rate 1: 50 bpm Respiratory Rate: 20 bpm SpO2: 98% Temperature: 36.5 (C) / 97.7 (F) 05/11/2020 Blood Pressure 1: 126/80 Code: 8480-6 BMI: 25.4 Code: 26803-9 Heart Rate 1: 60 bpm Height: 5'10" Code: 8302-2 Respiratory Rate: 20 bpm Temperat ure: 36.6 (C) / 97.8 (F) Weight: 177 lbs Code: 80715-4 05/05/2020 Blood Pressure 1: 122/78 Code: 8480-6 [...] 1: 104/66 Code: 8480-6 BMI: 25.4 Code: 02910-0 Heart Rate 1: 56 bpm Height: 5'10" Code: 8302-2 Respiratory Rate: 20 bpm SpO2: 97% Temperature: 36.6 (C) / 97.8 (F) Weight: 177 lbs Code: 28063-2 10/29/2019 Blood Pressure 1: 114/62 Code: 8480-6 Heart Rate 1: 68 bpm Respiratory Rate: 20 bpm SpO2: 99% Temperature: 36.8 (C) / 98.2 (F) 10/20/2019 Blood Pressure 1: 119/74 Code: 8480-6 Heart Rate 1: 57 bpm Respiratory Rate: 16 bpm SpO2: 99% Temperature: 36.9 (C) / 98.4 (F) We ight: 176 lbs Code: 12858-5 07/07/2019 Blood Pressure 1: 126/74 Code: 8480-6 Heart Rate 1: 72 bpm Respiratory Rate: 16 bpm SpO2: 95% Temperature: 36.8 (C) / 98.2 (F) We ight: 179 lbs Code: 08602-9 05/01/2019 Blood Pressure 1: 126/76 Code: 8480-6 Heart Rate 1: 60 bpm Respiratory Rate: 20 bpm SpO2: 97% Temperature: 36.8 (C) / 98.2 (F) 04/15/2019 Blood Pressure 1: 154/94 Code: 8480-6 BMI: 26.0 Code: 90543-9 Heart Rate 1: 60 bpm Height: 5'10" Code: 8302-2 Respiratory Rate: 18 bpm SpO2: 97% Temperature: 36.6 (C) / 97.9 (F) Weight: 181 lbs Code: 21304-1 11/26/2018 Blood Pressure 1: 142/80 Code: 8480-6 BMI: 26.3 Code: 50091-9 Heart Rate 1: 56 bpm Height: 5'10" Code: 8302-2 Respiratory Rate: 20 bpm SpO2: 97% Temperature: 36.9 (C) / 98.4 (F) Weight: 183 lbs Code: 59487-5 08/08/2018 Blood Pressure 1: 126/68 Code: 8480-6 Heart Rate 1: 76 bpm Height: 5'10" Code: 8302-2 Respiratory Rate: 20 bpm SpO2: 97% Temperature: 36 .7 (C) / 98.0 (F) Weight: Code: 22042-1 06/25/2018 Blood Pressure 1: 112/70 Code: 8480-6 BMI: 25.8 Code: 43496-8 Heart Rate 1: 64 bpm Height: 5'10" Code: 8302-2 Respiratory Rate: 20 bpm SpO2: 95% Temperature: 36.9 (C) / 98.4 (F) Weight: 180 lbs Code: 91117-9 05/20/2018 Blood Pressure 1: 132/100 Code: 8480-6 H eart Rate 1: 76 bpm 05/10/2018 Blood Pressure 1: 144/86 Code: 8480-6 Heart Rate 1: 60 bpm Respiratory Rate: 20 bpm SpO2: 97% Temperature: 36.9 (C) / 98.4 (F) We ight: Code: 70305-6 05/03/2018 Blood Pressure 1: 126/92 Code: 8480-6 Bl ood Pressure 2: 147/79 Code: 8480-6 Heart Rate 1: 64 bpm Height: 5'10" Code: 8302-2 Respiratory Rate : 22 bpm SpO2: 98% Temperature: 36.3 (C) / 97.3 (F) Weight: Code: 48159- 7 04/22/2018 Blood Pressure 1: 140/82 Code: 8480-6 BMI: 26.3 Code: 16736-5 Heart Rate 1: 60 bpm Height: 5'10" Code: 8302-2 Respiratory Rate: 20 bpm SpO2: 95% Temperature: 36.8 (C) / 98.2 (F) Weight: 183 lbs Code: 26257-2 03/05/2018 Blood Pressure 1: 122/64 Code: 8480-6 BMI: 25.7 Code: 80915-8 Heart Rate 1: 82 bpm Height: 5'10" Code: 8302-2 Respiratory Rate: 22 bpm SpO2: 96% Temperature: 36.4 (C) / 97.6 (F) Weight: 179 lbs Code: 00186-8 02/19/2018 Blood Pressure 1: 120/84 Code: 8480-6 Heart Rate 1: 68 bpm SpO2: 96% Temperature: 36.2 (C) / 97.2 (F) Weight: Code: 61471-2 02/13/2018 Blood Pressure 1: 138/90 Cod e: 8480-6 10/18/2017 Blood Pressure 1: 122/78 Code: 8480-6 BMI: 26.5 Code: 48603-1 Heart Rate 1: 72 bpm Height: 5'10" Code: 8302-2 Respiratory Rate: 20 bpm Temperat ure: 36.7 (C) / 98.0 (F) Weight: 185 lbs Code: 05299-6 07/24/2017 Blood Pressure 1: 118/68 Code: 8480-6 Heart Rate 1: 82 bpm Height: 5'10" Code: 8302-2 Respiratory Rate: 20 bpm SpO2: 92% Temperature: 36 .4 (C) / 97.6 (F) Weight: Code: 68970-0 06/14/2017 Blood Pressure 1: 156/98 Code: 8480-6 Heart Rate 1: 84 bpm Height: 5'10" Code: 8302-2 Respiratory Rate: 20 bpm SpO2: 96% Temperature: 36 .9 (C) / 98.5 (F) Weight: Code: 16900-8 06/01/2017 Blood Pressure 1: 122/82 Code: 8480-6 Heart Rate 1: 68 bpm Height: 5'10" Code: 8302-2 Respiratory Rate: 20 bpm Temperature: 36.8 (C) / 98.2 (F) 03/30/2017 Blood Pressure 1: 124/78 Code: 8480-6 Heart Rate 1: 88 bpm Height: 5'10" Code: 8302-2 Respiratory Rate: 20 bpm SpO2: 96% Temperature: 36 .9 (C) / 98.4 (F) Weight: Code: 97535-4 01/17/2017 Blood Pressure 1: 126/74 Code: 8480-6 Heart Rate 1: 72 bpm Height: 5'10" Code: 8302-2 Respiratory Rate: 20 bpm SpO2: 96% Temperature: 37 .0 (C) / 98.6 (F) Weight: Code: 50493-4 12/18/2016 Blood Pressure 1: 128/86 Code: 8480-6 BMI: 24.7 Code: 12203-2 Heart Rate 1: 76 bpm Height: 5'10" Code: 8302-2 Respiratory Rate: 20 bpm SpO2: 96% Temperature: 36.8 (C) / 98.3 (F) Weight: 172 lbs Code: 22856-3 11/02/2016 Blood Pressure 1: 128/80 Code: 8480-6 BMI: 24.7 Code: 99907-3 Heart Rate 1: 72 bpm Height: 5'10" Code: 8302-2 Respiratory Rate: 20 bpm SpO2: 94% Temperature: 36.9 (C) / 98.4 (F) Weight: 172 lbs Code: 49585-8 10/24/2016 Blood Pressure 1: 120/78 Code: 8480-6 BMI: 24.7 Code: 81684-6 Heart Rate 1: 88 bpm Height: 5'10" Code: 8302-2 Respiratory Rate: 18 bpm SpO2: 96% Temperature: 36.5 (C) / 97.7 (F) Weight: 172 lbs Code: 09797-5 02/07/2016 Heart Rate 1: 76 bpm Respiratory Rate: 22 bpm SpO2: 96 % Temperature: 36.4 (C) / 97.6 (F) Weight: Code: 67107-7 05/26/2015 Blood Pressure 1: 124/70 Code: 8480-6 BMI: 25.1 Code: 92961-9 Heart Rate 1: 84 bpm Height: 5'10" Code: 8302-2 Respiratory Rate: 20 bpm Temperat ure: 36.7 (C) / 98.1 (F) Weight: 175 lbs Code: 08042-6 11/30/2014 Blood Pressure 1: 142/94 Code: 8480-6 BMI: 25.1 Code: 92287-9 Heart Rate 1: 80 bpm Height: 5'10" Code: 8302-2 Respiratory Rate: 20 bpm Temperat ure: 36.9 (C) / 98.5 (F) Weight: 175 lbs Code: 85361-6 07/23/2014 Blood Pressure 1: 138/86 Code: 8480-6 BMI: 25.0 Code: 67536-3 Heart Rate 1: 80 bpm Height: 5'10" Code: 8302-2 Respiratory Rate: 20 bpm Temperat ure: 36.4 (C) / 97.6 (F) Weight: 174 lbs Code: 81435-6 03/09/2014 Blood Pressure 1: 122/78 Code: 8480-6 BMI: 25.0 Code: 19832-0 Heart Rate 1: 78 bpm Height: 5'10" Code: 8302-2 Respiratory Rate: 24 bpm Temperat ure: 36.4 (C) / 97.6 (F) Weight: 174 lbs Code: 46711-3 02/05/2014 Blood Pressure 1: 132/80 Code: 8480-6 BMI: 25.0 Code: 07047-7 Heart Rate 1: 84 bpm Height: 5'10" Code: 8302-2 Respiratory Rate: 20 bpm Temperat ure: 36.6 (C) / 97.9 (F) Weight: 174 lbs Code: 58938-3 05/12/2013 Blood Pressure 1: 138/94 Code: 8480-6 BMI: 25.1 Code: 70089-7 Heart Rate 1: 92 bpm Height: 5'10" Code: 8302-2 Respiratory Rate: 20 bpm Temperat ure: 36.7 (C) / 98.1 (F) Weight: 175 lbs Code: 81353-8 04/07/2013 Blood Pressure 1: 136/72 Code: 8480-6 BMI: 25.1 Code: 01073-6 Heart Rate 1: 76 bpm Height: 5'10" Code: 8302-2 Respiratory Rate: 20 bpm Temperat ure: 36.7 (C) / 98.0 (F) Weight: 175 lbs Code: 23404-7 03/31/2013 Blood Pressure 1: 132/94 Code: 8480-6 BMI: 25.1 Code: 73970-2 Heart Rate 1: 76 bpm Height: 5'10" Code: 8302-2 Respiratory Rate: 20 bpm Temperat ure: 36.7 (C) / 98.0 (F) Weight: 175 lbs Code: 51317-8 10/09/2012 Blood Pressure 1: 132/80 Code: 8480-6 BMI: 24.8 Code: 14027-2 Heart Rate 1: 88 bpm Height: 5'10" Code: 8302-2 Temperature: 36.8 (C) / 98.3 (F) Weight: 173 lbs Code: 80207-4 03/28/2012 Blood Pressure 1: 126/82 Code: 8480-6 BMI: 24.7 Code: 99787-2 Heart Rate 1: 72 bpm Height: 5'10" Code: 8302-2 Respiratory Rate: 20 bpm Temperat ure: 36.6 (C) / 97.8 (F) Weight: 172 lbs Code: 54752-3 2012 Blood Pressure 1: 130/72 Code: 8480-6 Heart Rate 1: 80 bpm Height: Code: 8302-2 Temperature: 36.5 (C) / 97.7 (F) Weight: Code: 41450- 7 09/27/2011 Blood Pressure 1: 116/78 Code: 8480-6 BMI: 24.4 Code: 20193-6 Heart Rate 1: 76 bpm Height: 5'10" Code: 8302-2 Respiratory Rate: 20 bpm Temperat ure: 36.9 (C) / 98.4 (F) Weight: 170 lbs Code: 43204-9 09/13/2011 Blood Pressure 1: 124/82 Code: 8480-6 BMI: 24.4 Code: 25321-3 Heart Rate 1: 72 bpm Height: 5'10" Code: 8302-2 Respiratory Rate: 20 bpm Temperat ure: 36.4 (C) / 97.6 (F) Weight: 170 lbs Code: 76850-6 08/07/2011 Blood Pressure 1: 110/74 Code: 8480-6 BMI: 23.2 Code: 43686-3 Heart Rate 1: 60 bpm Height: 5'11" Code: 8302-2 Temperature: 36.4 (C) / 97.5 (F) Weight: 166 lbs Code: 60786-7 02/06/2011 Blood Pressure 1: 96/58 Code : 8480-6 01/20/2011 Blood Pressure 1: 112/78 Cod e: 8480-6 01/12/2011 Blood Pressure 1: 110/48 Code: 8480-6 He art Rate 1: 84 bpm 01/04/2011 Blood Pressure 1: 126/80 Code: 8480-6 Heart Rate 1: 76 bpm Temperature: 36.9 (C) / 98.4 (F) Weight: 168 lbs Code: 89604-9 02/14/2010 Blood Pressure 1: 134/82 Code: 8480-6 Heart Rate 1: 88 bpm Temperature: 36.6 (C) / 97.9 (F) 02/07/2010 Blood Pressure 1: 130/80 Code: 8480-6 BMI: 23.4 Code: 39171-0 Heart Rate 1: 84 bpm Height: 5'10" Code: 8302-2 Temperature: 36.4 (C) / 97.6 (F) Weight: 163 lbs Code: 72657-6 Functional Status No Functional Status data Reason For Visit Reason For Visit Effective Dates Notes follow up 06/26/2022 cardiac conversion d id [...] up 05/03/2018 ER visit from last W ed vertigo 05/03/2018 high blood pressure 05/03/2018 nausea [...] Encounter Performer Location Location Address Codes Date ([id number]) OFFICE/OUTPATIENT VISIT EST Diagnosis: Atrial fibrillation and flutter[ICD10: I48.91] Yvette STUART CristiGarrett [address] [address] CPT- 4: 22992 06/26/2022 ([id number]) OFFICE/OUTPATIENT VISIT EST Diagnosis: Chronic atrial fibrillation[ICD10: I48.20] Diagnosis: Essential hypertension[ICD10: I10] Diagnosis: Skin cancer of arm[ICD10: C44.601] Diagnosis: Mild chronic obstructive pulmonary disease[ICD10: J44.9] Yvette STUART CristiGarrett AKASHNATE [address] [address] CPT-4: 45300 05/22/2022 ([id number]) NURSE/OUTPATIENT VISIT EST Diagnosis: Atrial fibrillation and flutter[ICD10: I48.91] Diagnosis: Hypothyroidism[ICD10: E03.9] Diagnosis: Mixed hyperlipidemia[ICD10: E78.2] Diagnosis: Anemia, unspecified[ICD10: D64.9] Diagnosis: Essential (primary) hypertension[ICD10: I10] Diagnosis: Hyperglycemia, unspecified[ICD10: R73.9] Yvette STUART CristiGarrett JOANN [address] [address] CPT- 4: 95308 02/28/2022 ([id number]) OFFICE/OUTPATIENT VISIT EST Diagnosis: Atypical nevus of right forearm[ICD10: D22.61] Diagnosis: Unspecified atrial flutter[ICD10: I48.92] Diagnosis: Atrial fibrillation and flutter[ICD10: I48.91] Yvette DAVID [address] [address] CPT- 4: 79718 02/27/2022 ([id number]) OFFICE/OUTPATIENT VISIT EST Diagnosis: Anxiety[ICD10: F41.9] Yvette DAVID DO [address] [address] CPT-4: 70101 11/23/2021 ([id number]) OFFICE/OUTPATIENT VISIT EST Diagnosis: Anxiety[ICD10: F41.9] Diagnosis: Stress reaction[ICD10: F43.0] Yvette DAVID [address] [address] CPT-4: 48282 10/12/2021 ([id number]) OFFICE/OUTPATIENT VISIT EST Diagnosis: Contact with and (suspected) exposure to covid-19[ICD10: Z20.822] Diagnosis: Nasopharyngitis[ICD10: J00] Diagnosis: Acute foreign body of left ear canal, initial encounter[ICD10: T16.2XXA] Diagnosis: Acute foreign body of right ear canal[ICD10: T16.1XXA] Martina Laynehollydonato DAVID [address] [address] CPT-4: 30237 08/09/2021 ([id number]) OFFICE/OUTPATIENT VISIT EST Diagnosis: Essential (primary) hypertension[ICD10: I10] Diagnosis: Hypothyroidism[ICD10: E03.9] Diagnosis: Paroxysmal atrial fibrillation[ICD10: I48.0] Diagnosis: Hyperglycemia, unspecified[ICD10: R73.9] Yvette DAVID [address] [address] CPT- 4: 00838 07/28/2021 ([id number]) NURSE/OUTPATIENT VISIT EST Diagnosis: Mixed hyperlipidemia[ICD10: E78.2] Diagnosis: Anemia, unspecified[ICD10: D64.9] Diagnosis: Essential (primary) hypertension[ICD10: I10] Diagnosis: Hypothyroidism, unspecified[ICD10: E03.9] Diagnosis: Hyperglycemia, unspecified[ICD10: R73.9] vYette DAVID [address] [address] CPT- 4: 06339 07/20/2021 ([id number]) OFFICE/OUTPATIENT VISIT EST Diagnosis: Grieving[ICD10: F43.21] Diagnosis: Inflamed seborrheic keratosis[ICD10: L82.0] Yvette DAVID DO [address] [address] CPT- 4: 00949 05/12/2021 ([id number]) OFFICE/OUTPATIENT VISIT EST Diagnosis: Rhus dermatitis[ICD10: L25.5] Yvette DAVID [address] [address] CPT-4: 42001 03/08/2021 ([id number]) OFFICE/OUTPATIENT VISIT EST Diagnosis: Essential hypertension[ICD10: I10] Diagnosis: Chronic atrial fibrillation[ICD10: I48.20] Diagnosis: Mixed hyperlipidemia[ICD10: E78.2] Diagnosis: Hyperglycemia, unspecified[ICD10: R73.9] Diagnosis: Depression[ICD10: F32.9] Yvette CHAIREZ [address] [address] CPT-4: 56337 02/03/2021 ([id number]) NURSE/OUTPATIENT VISIT EST Diagnosis: Hyperglycemia, unspecified[ICD10: R73.9] Diagnosis: Mixed hyperlipidemia[ICD10: E78.2] Diagnosis: Essential (primary) hypertension[ICD10: I10] Diagnosis: Hypothyroidism, unspecified[ICD10: E03.9] Yvette DAVID DO [address] [address] CPT- 4: 75370 01/31/2021 ([id number]) OFFICE/OUTPATIENT VISIT EST Diagnosis: Vertigo[ICD10: R42] Diagnosis: Chronic atrial fibrillation[ICD10: I48.20] Diagnosis: Cerumen impaction[ICD10: H61.20] Diagnosis: Depression[ICD10: F32.9] Yvette CHAIREZ DO [address] [address] CPT-4: 95806 01/04/2021 ([id number]) NURSE/OUTPATIENT VISIT EST Diagnosis: Essential hypertension[ICD10: I10] Yvette SIMMS HOLLY Michael DAVID DO [address] [address] CPT-4: 36476 10/05/2020 ([id number]) OFFICE/OUTPATIENT VISIT EST Diagnosis: Chronic atrial fibrillation[ICD10: I48.20] Diagnosis: Dizziness[ICD10: R42] Yvette MERCADOLINE CristiGarrett JOANN BORJA [address] [address] CPT-4: 76307 09/20/2020 ([id number]) NURSE/OUTPATIENT VISIT EST Diagnosis: Dysplastic nevus of right lower extremity[ICD10: D23.71] Yvette MERCADOLINE CristiGarrett JOANN BORJA [address] [address] CPT-4: 83536 05/28/2020 ([id number]) NURSE/OUTPATIENT VISIT EST Diagnosis: Essential (primary) hypertension[ICD10: I10] Diagnosis: Type 2 diabetes mellitus with hyperglycemia[ICD10: E11.65] Diagnosis: Anemia, unspecified[ICD10: D64.9] Diagnosis: Hypothyroidism, unspecified[ICD10: E03.9] Yvette MERCADOLINE CristiGarrett JOANN BORJA [address] [address] CPT- 4: 50358 05/05/2020 ([id number]) OFFICE/OUTPATIENT VISIT EST Diagnosis: 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] Diagnosis: Paroxysmal atrial fibrillation[ICD10: I48.0] Yvette Joann STUART Michael TAYLORER [address] [address] CPT- 4: 15386 02/11/2020 ([id number]) OFFICE/OUTPATIENT VISIT EST Diagnosis: Dermatitis[ICD10: L30.9] Diagnosis: 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] Diagnosis: Chronic pruritus[ICD10: L29.9] Yvette STUART Cristi DAVID [address] [address] CPT-4: 16427 01/28/2020 ([id number]) OFFICE/OUTPATIENT VISIT EST Diagnosis: Diarrhea, unspecified[ICD10: R19.7] Diagnosis: Dizziness[ICD10: R42] Diagnosis: Generalized pruritus[ICD10: L29.9] Yvette COREA Michael TAYLORER [address] [address] CPT-4: 90082 01/05/2020 ([id number]) NURSE/OUTPATIENT VISIT EST Diagnosis: Renal insufficiency[ICD10: N28.9] Yvette Shahid Michael DAVID [address] [address] CPT-4: 56093 12/05/2019 ([id number]) NURSE/OUTPATIENT VISIT EST Diagnosis: Renal insufficiency[ICD10: N28.9] Diagnosis: Dehydration[ICD10: E86.0] Yvette STUART CristiGarrett AKASH SULLIVAN [address] [address] CPT-4: 45114 11/05/2019 ([id number]) OFFICE/OUTPATIENT VISIT EST Diagnosis: Chronic atrial fibrillation[ICD10: I48.20] Diagnosis: Renal insufficiency[ICD10: N28.9] Diagnosis: Dizziness and giddiness[ICD10: R42] Yvette COLEMAN Michael BUSTOSNDMAYE [address] [address] CPT-4: 65167 10/29/2019 ([id number]) NURSE/OUTPATIENT VISIT EST Diagnosis: Hematuria, unspecified[ICD10: R31.9] Yvette BUSTOSNDER DO [address] [address] CPT-4: 84250 10/23/2019 ([id number]) NURSE/OUTPATIENT VISIT EST Diagnosis: Encounter for general adult medical examination without abnormal findings[ICD10: Z00.00] Diagnosis: Essential (primary) hypertension[ICD10: I10] Diagnosis: Hypothyroidism, unspecified[ICD10: E03.9] Diagnosis: Mixed hyperlipidemia[ICD10: E78.2] Yvette BUSTOSNDER DO [address] [address] CPT-4: 64420 10/21/2019 ([id number]) OFFICE/OUTPATIENT VISIT EST Diagnosis: Cerumen impaction[ICD10: H61.20] Diagnosis: Dizziness[ICD10: R42] Diagnosis: Gastritis[ICD10: K29.70] Diagnosis: Dehydration[ICD10: E86.0] Natalee BUSTOS NDER DO [address] [address] CPT-4: 71285 10/20/2019 ([id number]) OFFICE/OUTPATIENT VISIT EST Diagnosis: Paroxysmal atrial fibrillation[ICD10: I48.0] Diagnosis: Essential hypertension[ICD10: I10] Yvette BUSTOSNDER DO [address] [address] CPT-4: 49026 07/07/2019 ([id number]) OFFICE/OUTPATIENT VISIT EST Diagnosis: Essential (primary) hypertension[ICD10: I10] Yvette BUSTOSNDER DO [address] [address] CPT- 4: 11216 05/01/2019 ([id number]) OFFICE/OUTPATIENT VISIT EST Diagnosis: Essential (primary) hypertension[ICD10: I10] Diagnosis: Localized edema[ICD10: R60.0] Yvette BUSTOSNDER DO [address] [address] CPT-4: 91967 04/15/2019 ([id number]) NURSE/OUTPATIENT VISIT EST Diagnosis: Essential (primary) hypertension[ICD10: I10] Diagnosis: Hypothyroidism, unspecified[ICD10: E03.9] Diagnosis: Mixed hyperlipidemia[ICD10: E78.2] Yvette DAVID [address] [address] CPT-4: 78225 04/04/2019 ([id number]) NURSE/OUTPATIENT VISIT EST Diagnosis: Essential (primary) hypertension[ICD10: I10] Diagnosis: Hyperglycemia, unspecified[ICD10: R73.9] Diagnosis: Hypothyroidism, unspecified[ICD10: E03.9] Diagnosis: Mixed hyperlipidemia[ICD10: E78.2] Yvette DAVID [address] [address] CPT-4: 58951 10/07/2018 ([id number]) OFFICE/OUTPATIENT VISIT EST Diagnosis: Essential (primary) hypertension[ICD10: I10] Diagnosis: Presence of right artificial knee joint[ICD10: Z96.651] Diagnosis: Unspecified hearing loss, left ear[ICD10: H91.92] Yvette DAVID [address] [address] CPT- 4: 19502 08/08/2018 OFFICE/OUTPATIENT VISIT EST Diagnosis: Impacted cerumen, bilateral[ICD10: H61.23] Diagnosis: Vertigo of central origin, bilateral[ICD10: H81.43] Diagnosis: Essential (primary) hypertension[ICD10: I10] Diagnosis: Paroxysmal atrial fibrillation[ICD10: I48.0] Diagnosis: Dizziness and giddiness[ICD10: R42] Diagnosis: Sudden idiopathic hearing loss, left ear[ICD10: H91.22] Yvette DAVID [address] [address] CPT-4: 87154 06/25/2018 ([id number]) OFFICE/OUTPATIENT VISIT EST Diagnosis: Essential (primary) hypertension[ICD10: I10] Diagnosis: Vertigo of central origin, bilateral[ICD10: H81.43] Yvette DAVID DO [address] [address] CPT-4: 70173 05/10/2018 ([id number]) OFFICE/OUTPATIENT VISIT EST Diagnosis: Allergic rhinitis due to pollen[ICD10: J30.1] Diagnosis: Dizziness and giddiness[ICD10: R42] Diagnosis: Vertigo of central origin, bilateral[ICD10: H81.43] Diagnosis: Essential (primary) hypertension[ICD10: I10] Yvette DAVID DO [address] [address] CPT- 4: 46966 05/03/2018 OFFICE/OUTPATIENT VISIT EST Diagnosis: Hypothyroidism, unspecified[ICD10: E03.9] Diagnosis: Mixed hyperlipidemia[ICD10: E78.2] Diagnosis: Essential (primary) hypertension[ICD10: I10] Diagnosis: Paroxysmal atrial fibrillation[ICD10: I48.0] Diagnosis: Obstructive sleep apnea (adult) (pediatric)[ICD10: G47.33] Diagnosis: Unilateral primary osteoarthritis, right knee[ICD10: M17.11] Yvette DAVID DO [address] [address] CPT-4: 22231 04/22/2018 ([id number]) OFFICE/OUTPATIENT VISIT EST Diagnosis: Zoster without complications[ICD10: B02.9] Natalee DAVID DO [address] [address] CPT- 4: 28651 03/05/2018 ([id number]) NURSE/OUTPATIENT VISIT EST Diagnosis: Hypothyroidism, unspecified[ICD10: E03.9] Diagnosis: Mixed hyperlipidemia[ICD10: E78.2] Diagnosis: Essential (primary) hypertension[ICD10: I10] Diagnosis: Paroxysmal atrial fibrillation[ICD10: I48.0] Yvette DAVID DO [address] [address] CPT- 4: 95807 02/13/2018 ([id number]) OFFICE/OUTPATIENT VISIT EST Diagnosis: Obstructive sleep apnea (adult) (pediatric)[ICD10: G47.33] Diagnosis: Essential (primary) hypertension[ICD10: I10] Diagnosis: Paroxysmal atrial fibrillation[ICD10: I48.0] Yvette STUART Michael TAYLOR[address] [address] CPT- 4: 91038 10/18/2017 ([id number]) OFFICE/OUTPATIENT VISIT EST Diagnosis: Hypothyroidism, unspecified[ICD10: E03.9] Diagnosis: Other vitamin B12 deficiency anemias[ICD10: D51.8] Diagnosis: Essential (primary) hypertension[ICD10: I10] Diagnosis: Mixed hyperlipidemia[ICD10: E78.2] Yvette COREA Michael TAYLOR[address] [address] CPT-4: 45763 10/15/2017 OFFICE/OUTPATIENT VISIT EST Diagnosis: Impacted cerumen, bilateral[ICD10: H61.23] Diagnosis: Acute sinusitis, unspecified[ICD10: J01.90] Natalee TAYLOR [employer] [address] [address] CPT- 4: 19834 07/24/2017 ([id number]) OFFICE/OUTPATIENT VISIT EST Diagnosis: Obstructive sleep apnea (adult) (pediatric)[ICD10: G47.33] Diagnosis: Tachycardia, unspecified[ICD10: R00.0] Yvette QUINONES Michael TAYL[address] [address] CPT-4: 35232 06/14/2017 ([id number]) OFFICE/OUTPATIENT VISIT EST Diagnosis: Zoster without complications[ICD10: B02.9] Demi DILLONQUELINE Michael TAYLOR [employer] [address] [address] CPT- 4: 45870 06/01/2017 ([id number]) OFFICE/OUTPATIENT VISIT EST Diagnosis: Essential (primary) hypertension[ICD10: I10] Diagnosis: Tachycardia, unspecified[ICD10: R00.0] Diagnosis: Other vitamin B12 deficiency anemias[ICD10: D51.8] Yvette DAVID DO [facility] [address] [place] [address] CPT- 4: 65185 03/30/2017 ([id number]) OFFICE/OUTPATIENT VISIT EST Diagnosis: Essential (primary) hypertension[ICD10: I10] Diagnosis: Other fatigue[ICD10: R53.83] Diagnosis: Other chest pain[ICD10: R07.89] Diagnosis: Snoring[ICD10: R06.83] Yvette Vega DO [facility] [address] [place] [address] CPT-4: 88711 01/17/2017 ([id number]) OFFICE/OUTPATIENT VISIT EST Diagnosis: Encounter for general adult medical examination without abnormal findings[ICD10: Z00.00] Diagnosis: Hypothyroidism, unspecified[ICD10: E03.9] Diagnosis: Essential (primary) hypertension[ICD10: I10] Diagnosis: Mixed hyperlipidemia[ICD10: E78.2] Diagnosis: Other chcf (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[ICD10: Z79.899] Diagnosis: Hyperglycemia, unspecified[ICD10: R73.9] Yvette DAVID DO [facility] [address] [place] [address] CPT- 4: 38172 12/11/2016 ([id number]) OFFICE/OUTPATIENT VISIT EST Diagnosis: URI, ACUTE[ICD10: J06.9] Diagnosis: Cough[ICD10: R05] Yvette DAVID DO [address] [address] CPT-4: 37334 11/02/19 17 ([id number]) OFFICE/OUTPATIENT VISIT EST Diagnosis: Acute upper respiratory infection, unspecified[ICD10: J06.9] Elidia Calix YVETTE DAVID DO [address] [address] CPT-4: 56831 10/24/2016 ([id number]) OFFICE/OUTPATIENT VISIT EST Diagnosis: Nausea[ICD10: R11.0] Diagnosis: Diarrhea, unspecified[ICD10: R19.7] Diagnosis: Dizziness and giddiness[ICD10: R42] Elidia Yogi COLEMAN [facility]ar[facility] [address] [place] [address] CPT-4: 18882 02/07/2016 ([id number]) OFFICE/OUTPATIENT VISIT EST Diagnosis: HYPOTHYROIDISM[ICD9: 244.9] Diagnosis: HYPERLIPIDEMIA NEC/NOS[ICD9: 272.4] Diagnosis: ANEMIA NOS[ICD9: 285.9] Diagnosis: HYPERTENSION[ICD9: 401.9] Diagnosis: Neuropathy[ICD9: 355.9] Yvette Rodriguez [facility] [address] [place] [address] CPT-4: 25710 05/27/2015 ([id number]) OFFICE/OUTPATIENT VISIT EST Diagnosis: Neuropathy[ICD9: 355.9] Diagnosis: Foot pain[ICD9: 729.5] Diagnosis: HYPOTHYROIDISM[ICD9: 244.9] Diagnosis: PNEUMOCOCCAL VACCINE[ICD10: Z23] Yvette Rodriguez [facility] [address] [place] [address] CPT-4: 43840 05/26/2015 ([id number]) OFFICE/OUTPATIENT VISIT EST Diagnosis: Hematochezia[ICD9: 578.1] Yvette [facility] [address] [place] [address] CPT-4: 61255 02/19/2015 ([id number]) OFFICE/OUTPATIENT VISIT EST Diagnosis: Hematochezia[ICD9: 578.1] Yvette [facility] [address] [place] [address] CPT-4: 50666 01/20/2015 ([id number]) OFFICE/OUTPATIENT VISIT EST Diagnosis: Hematochezia[ICD9: 578.1] Yvette Rodriguez [facility] [address] [place] [address] CPT-4: 84034 12/15/2014 ([id number]) OFFICE/OUTPATIENT VISIT EST Diagnosis: TINEA PEDIS[ICD9: 110.4] Diagnosis: Ceruminosis[ICD9: 380.4] Earline CHAIREZ DO [address] [address] CPT-4: 33347 11/30/2014 ([id number]) OFFICE/OUTPATIENT VISIT EST Diagnosis: HYPERLIPIDEMIA NEC/NOS[ICD9: 272.4] Yvette WAYNE JARED Michael TAYLORER DO [address] [address] CPT-4: 77945 11/26/2014 ([id number]) OFFICE/OUTPATIENT VISIT EST Diagnosis: HYPOTHYROIDISM[ICD9: 244.9] Diagnosis: HYPERLIPIDEMIA NEC/NOS[ICD9: 272.4] Diagnosis: ANEMIA NOS[ICD9: 285.9] Diagnosis: HYPERTENSION[ICD9: 401.9] Yvette DILLONQUELINE CristiGarrett AKASH GIOVANASilvia [address] [address] CPT-4: 39106 08/14/2014 ([id number]) OFFICE/OUTPATIENT VISIT EST Diagnosis: GERD[ICD9: 530.81] Diagnosis: COUGH[ICD10: R05] Yvette MERCADOLINE CristiGarrett JOANN [address] [address] CPT-4: 26250 07/23/20 14 OFFICE/OUTPATIENT VISIT EST Diagnosis: Heel pain[ICD9: 729.5] Earline SmileyWhitneymargarita MERCADOLINE CristiGarrett AKASHGIOVANA R [address] [address] CPT-4: 78183 03/09/2014 ([id number]) OFFICE/OUTPATIENT VISIT EST Diagnosis: HYPOTHYROIDISM[ICD9: 244.9] Diagnosis: HYPERLIPIDEMIA NEC/NOS[ICD9: 272.4] Diagnosis: Right medial knee pain[ICD9: 719.46] Yvette MERCADO TRINA CristiGarrett BRANDONER DO [address] [address] CPT-4: 87253 02/05/2014 ([id number]) OFFICE/OUTPATIENT VISIT EST Diagnosis: HYPOTHYROIDISM[ICD9: 244.9] Diagnosis: HYPERLIPIDEMIA NEC/NOS[ICD9: 272.4] Diagnosis: HYPERTENSION[ICD9: 401.9] Diagnosis: ANEMIA NOS[ICD9: 285.9] Diagnosis: MALAISE AND FATIGUE[ICD9: 780.79] Yvette KONG Zehra ColinGarrett JOANN [facility] [address] [place] [address] CPT-4: 35628 02/04/2014 OFFICE/OUTPATIENT VISIT EST Diagnosis: Right medial knee pain[ICD9: 719.46] Diagnosis: Degeneration, intervertebral disc, lumbar[ICD9: 722.52] Diagnosis: Low back pain[ICD9: 724.2] Earline Rodriguez LUISITO STEFAN [address] [address] CPT-4: 73061 05/12/2013 ([id number]) OFFICE/OUTPATIENT VISIT EST Diagnosis: Lumbar degenerative disc disease[ICD9: 722.52] Diagnosis: Bulging lumbar disc[ICD9: 722.10] Yvette Rodriguez JOANN DO [facility] [address] [place] [address] CPT-4: 26472 04/07/2013 ([id number]) OFFICE/OUTPATIENT VISIT EST Diagnosis: PAIN, LOWER BACK[ICD9: 724.2] Diagnosis: SPASM OF MUSCLE[ICD9: 728.85] Diagnosis: Lumbar degenerative disc disease[ICD9: 722.52] Yvette Rodriguez JOANN [facility] [address] [place] [address] CPT- 4: 80063 03/31/2013 ([id number]) OFFICE/OUTPATIENT VISIT EST Diagnosis: Greater trochanteric bursitis[ICD9: 726.5] Diagnosis: DYSPEPSIA[ICD9: 536.8] Yvette Vega DO [facility] [address] [place] [address] CPT-4: 41476 10/09/2012 OFFICE/OUTPATIENT VISIT EST Diagnosis: CYSTOCELE NOS[ICD9: 618.01] Diagnosis: GERD[ICD9: 530.81] Diagnosis: VAGINITIS[ICD9: 623.5] Yvette HYLTON R DO [address] [address] CPT-4: 55636 03/28/2012 ([id number]) OFFICE/OUTPATIENT VISIT EST Diagnosis: HYPOTHYROIDISM[ICD9: 244.9] Diagnosis: HYPERLIPIDEMIA NEC/NOS[ICD9: 272.4] Diagnosis: HYPERTENSION[ICD9: 401.9] Diagnosis: ANEMIA NOS[ICD9: 285.9] Yvette TAYLOR ER DO [address] [address] CPT-4: 61905 03/18/2012 OFFICE/OUTPATIENT VISIT EST Diagnosis: CERUMEN IMPACTION[ICD9: 380.4] Diagnosis: OTALGIA[ICD9: 388.70] Reyna Eldon YVETTE DAVID DO [address] [address] CPT-4: 99731 2012 OFFICE/OUTPATIENT VISIT EST Diagnosis: COUGH[ICD9: 786.2] Diagnosis: Cystocele[ICD9: 618.01] Diagnosis: VAGINITIS[ICD9: 623.5] Diagnosis: ROUTINE GYNE EXAM[ICD9: V72.31] Yvette DAVID DO [address] [address] CPT-4: 68960 09/27/2011 SPECIMEN HANDLING Diagnosis: [ICD9: ] Diagnosis: [ICD9: ] Diagnosis: [ICD9: ] Diagnosis: [ICD9: ] Yvette DAVID DO [address] [address] CPT-4: 90771 09/27/2011 OFFICE/OUTPATIENT VISIT EST Diagnosis: PHARYNGITIS, ACUTE[ICD9: 462] Diagnosis: URI, ACUTE[ICD9: 465.9] Yvette TAYLOR ER DO [address] [address] CPT-4: 24907 09/13/2011 OFFICE/OUTPATIENT VISIT EST Diagnosis: PHARYNGITIS, ACUTE[ICD9: 462] Diagnosis: COUGH[ICD9: 786.2] Yvette DAVID DO [facility] [address] [place] [address] CPT-4: 11763 08/07/20 11 ([id number]) OFFICE/OUTPATIENT VISIT EST Yvette BUSTOSNDER DO [facility] [address] [place] [phone] CPT-4: 66002 01/04/2011 ([id number]) OFFICE/OUTPATIENT VISIT, EST Yvette BUSTOSNDER DO [facility] [address] [place] [phone] CPT-4: 96498 02/14/2010 ([id number]) OFFICE/OUTPATIENT VISIT, EST Yvette DAVID DO [facility] [address] [place] [phone] CPT-4: 53954 02/07/2010 Plan of Care Planned Activity Notes Codes Status Date Visit Diagnosis Plan: Atrial fibrillation and flutter Discussion: Increase metoprolol to 50mg po BID Increase amiodarone to 200mg po BID Fwup 1month Defers flu shot ICD-9 : 427.31 ICD-10 : I48.91 06/26/2022 Patient Education: metoprolol succinate- [facility] Co upon [id number] [email or web address]/[email or web address]/resources/getResource/61/[email or web address] Completed 06/26/2022 Visit Diagnosis Plan: Skin cancer of arm [...] : J44.9 05/22/2022 Appointment: Yvette David WPtel: [address] [place], [place] [phone] FOLLOW UP 05/22/2022 Referral: Anuj Eng WPtel: [address] [facility] [id number] [place] Referral Appointment Confirmed 03/08/2022 Appointment: vYette David WPtel: [address] [place], [place] [phone] [place] LAB 02/28/2022 Visit Diagnosis Plan: Unspecified [...] : I48.91 02/27/2022 Appointment: Yvette David WPtel: [address] [place], [place] [phone] ACUTE ILLNESS 02/27/2022 Care Plan: Referral Order SNOMED-CT : 30 [id number] Pending 02/27/2022 Care Plan: Referral Order SNOMED-CT : 30 [id number] Pending 02/27/2022 Appointment: [facility]el[facility] [address] [facility] [facility] CANCELED 12/06/2021 Visit Diagnosis Plan: Anxiety Discussion: Improving wi th effexor--wants to keep dose the same ICD-9 : 300.00 ICD-10 : F41.9 11/23/2021 Appointment: Yvette David WPtel: [phone] US FOLLOW UP 11/23/2021 Visit Diagnosis Plan: Anxiety Discussion: Restart effe xor XR at 37.5mg daily Stress Reducers Fwup 6 weeks No tremors noted today ICD-9 : 300.00 ICD-10 : F41.9 10/12/2021 Appointment: Yvette David WPtel[facility] [address] [facility] AC[facility] ILL[facility] 10/12/2021 Visit Plan: Supportive care. [...] T16.2XXA 08/09/2021 Appointment: Martina Lopez WPtel: [phone] [phone] ACUTE ILLNESS 08/09/2021 Patient Education: Patient Medication [...] : R73.9 07/28/2021 Appointment: Yvette David WPtel: [address] [place], [place] [phone] FOLLOW UP 07/28/2021 Appointment: Yvette David WPtel: [address] [place], [place] [phone] LAB 07/20/2021 Visit Diagnosis Plan: Grieving Discussion: Restart Eff exor XR 37.5mg po q AM ICD-9 : 309.0 ICD-10 : F43.21 05/12/2021 Visit Diagnosis Plan: Inflamed seborrheic keratosis Di scussion: Cryotherapy as above ICD-9 : 702.11 ICD-10 : L82.0 05/12/2021 Appointment: Yvette David WPtel: [address] [place], [place] [phone] US FOLLOW UP 05/12/2021 Appointment: Yvette David WPtel: [address] [place], [place] [phone] US assisted patient with opening her eye drops for cataract liane an (sera) CANCELED 03/22/2021 Visit Diagnosis Plan: Rhus dermatitis Discussion: Marielena log 40mg IM x1 Can continue TAC ICD-9 : 692.6 ICD-10 : L25.5 03/08/2021 Appointment: Yvette David WPtel: [address] [place], [place] [phone] US FOLLOW UP 03/08/2021 Visit Diagnosis Plan: [...] : I48.20 02/03/2021 Appointment: Yvette David WPtel: [address] [place], [place] [phone] US FOLLOW UP 02/03/2021 Appointment: Yvette David WPtel: [address] [place], [place] [phone] US LAB 01/31/2021 Visit Diagnosis Plan: Chronic [...] : H61.20 01/04/2021 Appointment: Yvette David WPtel: [address] [place], [place] [phone] ACUTE ILLNESS 01/04/2021 Appointment: Yvette David WPtel: [address] [place], [place] [phone] BP CHECK 10/05/2020 Visit Diagnosis Plan: Chronic atrial fibrillation Disc ussion: Due to symptomatic bradycardia will decrease metoprolol ER to 25mg po BID Bring by BP and pulse readings in 2 weeks ICD-9 : 427.31 ICD-10 : I48.20 09/20/2020 Appointment: Yvette David WPtel: [address] [place], [place] [phone] ACUTE ILLNESS 09/20/2020 Appointment: Yvette David WPtel: [address] [place], [place] [phone] NURSE SERVICES 05/28/2020 Visit Diagnosis Plan: Dysplastic nevus of right lower extremity Discussion: Removal as above and sent to pathology Return in 10 days for suture removal ICD-9 : 216.7 ICD-10 : D23.71 05/19/2020 Appointment: Yvette David WPtel: [address] [place], [place] [phone] FOLLOW UP 05/19/2020 Visit Diagnosis Plan: Diarrhea [...] 05/11/2020 Visit Diagnosis Plan: Encounter for [facility] adult medical examination without abnormal findings Discussion: [...] : I48.20 05/11/2020 Appointment: Yvette David WPtel: [address] [phone] US Annual Well Visit 05/11/2020 Appointment: Yvette David WPtel: [phone] [phone] US LAB 05/05/2020 Visit Diagnosis Plan: [...] : I48.0 02/11/2020 Appointment: Yvette David WPtel: [phone] US FOLLOW UP 02/11/2020 Visit Diagnosis [...] : L29.8 01/28/2020 Appointment: Yvette David WPtel: [address] [place], [place] [phone] ACUTE ILLNESS 01/28/2020 Patient Education: hydroxyzine HCl- [employer] Coupon [id number] https://www.Widgetbox/samplemd/resources/getResource/61/[email or web address]-0wb5-6d Completed 01/28/2020 Visit Diagnosis Plan: Diarrhea, unspecified [...] : R42 01/05/2020 Appointment: Yvette David WPtel: [address] [place], [place] [phone] ACUTE ILLNESS 01/05/2020 Appointment: Yvette David WPtel: [address] [place], [place] [phone] US LAB 12/05/2019 Appointment: Yvette David WPtel: [address] [place], [place] [phone] US LAB 11/05/2019 Visit Diagnosis Plan: Dizziness [...] : N28.9 10/29/2019 Appointment: Yvette David WPtel: [address] [place], [place] [phone] FOLLOW UP 10/29/2019 Appointment: Yvette David WPtel: [address] [phone] UA 10/23/2019 Appointment: Yvette David WPtel: [address] [place] [phone] LAB 10/21/2019 Visit Diagnosis Plan: Dizziness Discussion: [...] : H61.20 10/20/2019 Appointment: Natalee Gray [address] [facility] ACUTE ILLNESS 10/20/2019 Patient Education: meclizine- [employer] Coupon [phone] https://www.Going My Way[employer]/samplemd/resources/getResource/61/38h88773-169z-43si-se Completed 10/20/2019 Appointment: Yvette David WPtel: [address] [place], [place] [phone] US Canceled, Said patient was feeling lots [...] : I48.0 07/07/2019 Appointment: Yvette David WPtel: [address] [place], [place] [address] FOLLOW UP 07/07/2019 Visit Diagnosis Plan: Essential (primary) hypertension Discussion: Increase HCTZ to 25mg daily Call in 1 week with BP readings ICD-9 : 401.9 ICD-10 : I10 05/01/2019 Appointment: Yvette David WPtel: [address] [place], [place] [address] FOLLOW UP 05/01/2019 Visit Diagnosis Plan: Essential (primary) hypertension Discussion: Change metoprolol to 50mg po q AM and 100mg po q PM Add HCTZ 12.5mg po q AM Monitor home BP and pulse Recheck 2 weeks Start Cardiac Rehab or Wellness ICD-9 : 401.1 ICD-10 : I10 04/15/2019 Appointment: Yvette David WPtel: [address] [place], [place] [phone] FOLLOW UP 04/15/2019 Patient Education: hydrochlorothiazide- OptimizeRX [facility] [phone] https://www.Going My Way.Animated Speech/samplemd/resources/getResource/61/[email or web address]-m44a-861m-bt Completed 04/15/2019 Appointment: Yvette David WPtel: [phone] [phone] US LAB 04/04/2019 Care Plan: US EXAM CHEST US of left breast LOINC : 19034-3 Pending 03/17/2019 Visit Diagnosis Plan: Hypothyroidism, unspecified Disc ussion: Stable ICD-9 : 244.9 ICD-10 : E03.9 11/26/2018 Visit Diagnosis Plan: Paroxysmal atrial fibrillation D iscussion: Stable ICD-9 : 427.31 ICD-10 : I48.0 11/26/2018 Visit Diagnosis Plan: Encounter for [facility] adult medical examination without abnormal findings Discussion: Mediterranean diet Combinati on of cardio and weight bearing exercise Recommend Shingrix Lab and fwup in March ICD-9 : V70.9 ICD-10 : Z00.00 11/26/2018 Visit Diagnosis Plan: Essential (primary) hypertension Discussion: Stable ICD-9 : 401.1 ICD-10 : I10 11/26/2018 Appointment: Yvette David WPtel: [address] [place], [place] [phone] Annual Well Visit 11/26/2018 Appointment: Yvette David WPtel: [address] [place], [place] [phone] US LAB 10/07/2018 Visit Diagnosis Plan: Presence [...] H91.92 08/08/2018 Appointment: Yvette David WPtel: [address] [place], [place] [phone] US FOLLOW UP 08/08/2018 Appointment: Natalee Gray [address] [place] [address] US CANCELED 07/18/2018 Visit Diagnosis Plan: Sudden idiopathic [...] : I10 06/25/2018 Appointment: Yvette David WPtel: [address] [place], [place] [address] [facility] Follow Up 06/25/2018 Patient Education: Patient Medication Summary Completed 06/25/2018 Appointment: Yvette Davidtel: [address] [place], [place] [phone] BP CHECK 05/20/2018 Patient Education: Patient Medication [...] : I10 05/10/2018 Appointment: Yvette David WPtel: [address] [place], [place] [phone] FOLLOW UP 05/10/2018 Patient Education: Patient Medication [...] I10 05/03/2018 Appointment: Yvette [facility]Ptel: [phone] [facility] ACUTE ILLNESS 05/03/2018 Patient Education: Patient Medication [...] E03.9 04/22/2018 Appointment: Yvette David WPtel: [phone] [phone] FOLLOW UP 04/22/2018 Patient Education: Patient [...] ICD-10 : B02.9 03/05/2018 Appointment: Natalee Gray [address] [place], [place] [phone] ACUTE ILLNESS 03/05/2018 Patient Education: Patient Medication [...] ICD-10 : H61.23 02/19/2018 Appointment: Natalee Gray [address] [place], [place] [id number] ACUTE ILLNESS 02/19/2018 Patient Education: Patient Medication Summary Completed 02/19/2018 Appointment: Yvette David WPtel: [address] [place] [phone] LAB 02/13/2018 Patient Education: Patient Medication Summary [...] : G47.33 10/18/2017 Appointment: Yvette David WPtel: [phone] FOLLOW UP 10/18/2017 Patient Education: Patient Medication Summary Completed 10/18/2017 Appointment: Yvette David WPtel: [phone] [facility] LAB 10/15/2017 Patient Education: Patient Medication Summary [...] ICD-10 : H61.23 07/24/2017 Appointment: Natalee Gray [address] [place], [place] [id number] ACUTE ILLNESS 07/24/2017 Patient Education: Patient Medication Summary Completed 07/24/2017 Referral: Jey Kaye WPtel: [address] [facility] 300 [id number] Referral Initiated 07/05/2017 Patient Education: Patient Medication [...] R00.0 06/14/2017 Appointment: Yvette David WPtel: [phone] [facility] FOLLOW UP 06/14/2017 Patient Education: Patient Medication Summary Completed 06/14/2017 Care Plan: Referral Order SNOMED-CT : 30 [id number] Pending 06/14/2017 Visit Plan: ERx for Valtrex, system won' t allow ERx for Prednisone so it is called 10mg 2 po bid x 3 days then 1 po bid x 3 days then 1 po daily x 3 days then 1/2 po daily x 3 days then d/c She declines gabapentin or pain meds Anticipatory guidance discussed. 06/01/2017 Appointment: Demi Rocha [facility]Ptel[phone] [facility] [facility] 06/01/2017 Patient Education: Patient [...] D51.8 03/30/2017 Appointment: Yvette David WPtel: [address] [phone] 7/6 lm ~sl FOLLOW UP 03/30/2017 Patient [...] : 780.79 ICD-10 : R53.83 01/17/2017 Appointment: Yvetet David WPtel: [address] [facility] 4/25 lm`sl FOLLOW UP 01/17/2017 Patient [...] G62.9 12/18/2016 Visit Diagnosis Plan: Encounter for [facility] adult medical examination without abnormal findings Discussion: Increase activity and contin ue healthy eating Continune using urinary incontinence pads at night for nocturia Reviewed labs ICD-9 : V70.9 ICD-10 : Z00.00 12/18/2016 Appointment: Yvette David WPtel: [address] [phone] US 11/13 confirmed ~sl Annual Well Visit 12/18/2016 Patient Education: Patient Medication Summary Completed 12/18/2016 Appointment: Yvette David WPtel: [address] [phone] US LAB 12/11/2016 Patient Education: Patient Medication [...] Diagnosis Plan: Cough Discussion: Delyovanny Day n eduardoes prn ICD-9 : 786.2 ICD-10 : R05 11/02/2016 Appointment: Yvette David WPtel: [phone] FOLLOW UP 11/02/2016 Appointment: Yvette David WPtel: [address] [place], [place] [phone] CANCELED 11/02/2016 Patient Education: Patient Medication Summary Completed 11/02/2016 Visit Diagnosis Plan: Acute upper respiratory infectio n, unspecified Discussion: Rx as above Discussed OTC meds and supportive care Notify if not improving so regimen can be changed before her upcoming trip in 2 weeks ICD-9 : 465.9 ICD-10 : J06.9 10/24/2016 Appointment: Elidia Calix [address] [place] [address] ACUTE ILLNESS 10/24/2016 Patient Education: Patient Medication Summary Completed 10/24/2016 Patient Education: Patient Medication Summary Completed 06/26/2016 Visit Plan: Office dip wnl/BP wnl Does s eem likely to be viral GI illness Supportive care with rxs as above Soft and bland diet Will need bloodwork if not improving 02/07/2016 Appointment: Elidia Calix [address] [place], [place] [id number] ACUTE ILLNESS 02/07/2016 Patient Education: Patient Medication Summary Completed 02/07/2016 Patient Education: Patient Medication Summary Completed 07/01/2015 Appointment: Yvette David WPtel: [address] [place], [place] [phone] LAB 05/27/2015 Patient Education: Patient Medication Summary Completed 05/27/2015 Visit Plan: Trial of Gralise 300mg at be [facility] with 4 oz tonic water Sharron's solution soaks to feet Check TSH, Free T4, B12, CMP, HbA1C now Call in 2weeks 05/26/2015 Appointment: Yvette David WPtel: [address] [place], [place] [phone] 05/25/2015 confirmed w patient ACUTE ILLNESS 10/2014 Patient Education: Patient Medication Summary Completed 05/26/2015 Appointment: Yvette David WPtel: [phone] [phone] US Stool lab 02/19/2015 Patient Education: Patient Medication Summary Completed 02/19/2015 Appointment: Yvette David WPtel: [phone] [facility] US Stool lab 01/20/2015 Patient Education: Patient Medication Summary Completed 01/20/2015 Appointment: Yvette David WPtel: [address] [place], [place] [phone] US LAB 12/15/2014 Patient Education: Patient Medication Summary Completed 12/15/2014 Appointment: Earline Morris WPtel: [address] [place], [place] [phone] ACUTE ILLNESS 11/30/2014 Patient Education: Patient Medication Summary Completed 11/30/2014 Appointment: Yvette David WPtel: [address] [place], [place] [phone] US LAB 11/26/2014 Patient Education: Patient Medication Summary Completed 11/26/2014 Appointment: Yvette David WPtel: [address] [place], [place] [phone] US LAB 08/14/2014 Patient Education: Patient Medication Summary Completed 08/14/2014 Visit Plan: Defers bone density Proceed with colonoscopy Change omeprazole to protonix Due for fasting lab next month 07/23/2014 Appointment: Yvette David WPtel: [address] [place], [place] [phone] ACUTE ILLNESS 07/23/2014 Patient Education: Patient Medication Summary Completed 07/23/2014 Patient Education: Patient Medication Summary Completed 06/05/2014 Appointment: Earline Morris WPtel: [address] [place], [place] [phone] US FOLLOW UP 03/09/2014 Patient Education: Patient Medication Summary Completed 03/09/2014 Appointment: Yvette Davidl: [address] [place], [place] [phone] ACUTE ILLNESS 02/05/2014 Patient Education: Patient Medication Summary Completed 02/05/2014 Appointment: Yvette David WPtel: [address] [place], [place] [phone] LAB 02/04/2014 Patient Education: Patient Medication Summary Completed 02/04/2014 Appointment: Earline Morris WPtel: [address] [place], [place] [phone] ACUTE ILLNESS 05/12/2013 Patient Education: Patient Medication Summary Completed 05/12/2013 Visit Plan: MRI results discussed Discus sed epidural injections SI joint injection as above Continue Celebrex 200mg daily 04/07/2013 Appointment: Yvette David WPtel: [address] [place], [place] [phone] 04/04 left message FOLLOW UP 04/07/2013 Patient Education: Patient Medication Summary Completed 04/07/2013 Visit Plan: Restart PT and epidural--may need updated MRI of L/S spine Tylenol prn Celebrex 200mg daily 03/31/2013 Appointment: Yvette David WPtel: [address] [place], [place] [phone] ACUTE ILLNESS 03/31/2013 Patient Education: Patient Medication Summary Completed 03/31/2013 Visit Plan: Injection to hip as above Pt will take Vimovo 500/20mg po daily for next week Call in 1wk on both hip and stomach Discussed that likely has arthritis in hip as well 10/09/2012 Appointment: Yvette David WPtel: [address] [place], [place] [phone] 10/08 Left message ACUTE ILLNESS 10/09/2012 Patient Education: Patient Medication Summary Completed 10/09/2012 Visit Plan: See urology--Dr. Hutchinson for cystocele Start Premarin vaginal Cream 1/2 gm vaginally twice weekly then repeat PAP in 3mos Continue nexium for 4 more weeks then start Zantac daily--notify if cough returns 03/28/2012 Appointment: Yvette David WPtel: [address] [place], [place] [phone] PAP 03/28/2012 Patient Education: Patient Medication Summary Completed 03/28/2012 Appointment: Yvette David WPtel: [address] [place], [place] [phone] LAB 03/18/2012 Patient Education: Patient Medication Summary Completed 03/18/2012 Appointment: Reyna Colón WPtel: [address] [place], [place] [phone] OFFICE SURGERY 2012 Patient Education: Patient Medication Summary Completed 2012 Visit Plan: Pap done Kegel exercises--de fers meds or surgery eval at this time Mammo due in January [place] symbicort 09/27/2011 Appointment: Yvette David WPtel: [address] [place], [place] [phone] FOLLOW UP 09/27/2011 Patient Education: Patient Medication Summary Completed 09/27/2011 Visit Plan: Symbicort 160/4.5 2 p BID 09/13/2011 Appointment: Yvette David WPtel: [address] [place], [place] [phone] ACUTE ILLNESS 09/13/2011 Patient Education: Patient Medication Summary Completed 09/13/2011 Visit Plan: Cefdinir and medrol dose pac k. Discussed if no improvement by Sunday will obtain chest x-ray and CBC with mycoplasma. 08/07/2011 Appointment: Reyna Colón WPtel: [address] [place], [place] [phone] ACUTE ILLNESS 08/07/2011 Patient Education: Patient Medication Summary Completed 08/07/2011 Appointment: Yvette David WPtel: [address] [place], [place] [phone] 07/13/2011 Patient Education: Patient Medication Summary Completed 07/13/2011 Appointment: Yvette David WPtel: [address] [place], [place] [phone] LAB 03/13/2011 Patient Education: Patient Medication Summary Completed 03/13/2011 Appointment: Yvette David WPtel: [address] [place], [place] [phone] BP CHECK 02/06/2011 Patient Education: Patient Medication Summary Completed 02/06/2011 Appointment: Yvette David WPtel: [address] [place], [place] [phone] BP CHECK 01/20/2011 Patient Education: Patient Medication Summary Completed 01/20/2011 Appointment: Yvette David WPtel: [address] [place], [place] [phone] BP CHECK 01/12/2011 Patient Education: Patient Medication Summary Completed 01/12/2011 Visit Plan: Increase Synthroid to 75mcg po daily Increase fish oil to BID Start daily Toprol XL 12.5mg BP check in 1wk TSH and Free T4 in 2mos. 01/04/2011 Appointment: Yvette David WPtel: [address] [place], [place] [phone] FOLLOW UP 01/04/2011 Patient Education: Patient Medication Summary Completed 01/04/2011 Appointment: Yvette David WPtel: [address] [place], [place] [phone] LAB 12/16/2010 Patient Education: Patient Medication Summary Completed 12/16/2010 Visit Plan: Start PT May need MRI 02/14/2010 Appointment: Yvette David WPtel: [address] [place], [place] [phone] OFFICE SURGERY 02/14/2010 Patient Education: Patient Medication [...] (steroid). 02/07/2010 Appointment: Reyna Colón [facility]Ptel: [phone] [facility] [facility] 02/07/2010 Patient Education: Patient Medication Summary Completed 02/07/2010 Appointment: Yvette David WPtel: [phone] [facility] [facility] 12/22/2009 Patient Education: Patient Medication Summary Completed 12/22/2009 Referral: Lino Davila [address] [id number] Referral Initiated Instructions Comment Date . Supportive care. Rest, [...] data not found Advance Directives Filename Date [id number] 06/03/2012
--- OUTSIDE RECORDS SUMMARY | 2022-08-14 14:06 | XMS REPORT | CCD ---
Author Author Lucille David D.O. Organization [facility] Address [address] [place] [address] Phone Care Team Providers Care Health And Social Care Teacher Name Role Phone Yvette David D.O., PP Unavailable CCM Unavailable Summary Purpose Interface Exchange Insurance Providers Payer name Policy type / Coverage type Covered republican ID Effective Begin Date Effective End Date WPS MEDICARE PART B [place] Medicare Part B [id number] Unknown Cigna Medicare Part B [id number] Unknown Family History Family History data not found Social History Social History Element Codes Description Effective Dates Tobacco history SNOMED CT: 604053679 Has never smoked or chewed tobacco 05/26/2015 [...] G62.9 ICD-9: 355.9 12/18/2016 Active 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 ICD-10: Z79.899 ICD-9: V58.69 [...] Fill Instructions amiodarone 200 mg tablet RxNorm: 887203 Take 1 Tablet(s) Oral t wo times a day 06/26/2022 12/22/2022 Active metoprolol succinate ER 50 mg tablet,extended release 24 hr RxNorm: 077001 1 Tablet(s) Oral two times a day 06/26/2022 12/22/2022 Active venlafaxine ER 37.5 mg capsule,extended release 24 hr RxNorm : 406869 Take 1 Capsule(s) Oral QAM 06/16/2022 12/12/2022 Active simvastatin 20 mg tablet RxNorm: 005299 Take 1 Tablet(s) Oral QD 11/21/2022 Active Xarelto 20 mg tablet RxNorm: 0625330 Take 1 Tablet(s) Oral QD 05/22 No Stop Date Active amiodarone 200 mg tablet RxNorm: 799819 Take 1 Tablet(s) Oral QD 06/25/2022 Inactive Euthyrox 88 mcg tablet RxNorm: 071288 TAKE 1 TABLET BY MOUTH ONCE DAILY - DUE FOR UPDATED LAB 05/21/2022 08/18/2022 Active Breztri Aerosphere 160 mcg-9mcg-4.8mcg/actuation HFA a erosol inhaler RxNorm: 4265929 2 Puff(s) Inhalation two times a day in the morning an d evening 05/01/2022 05/01/2022 Inactive Breztri Aerosphere 160 mcg-9mcg-4.8mcg/actuation HFA a erosol inhaler RxNorm: 2058071 2 Puff(s) Inhalation two times a day in the morning an d evening 05/01/2022 05/30/2022 Inactive diltiazem CD 120 mg capsule,extended release 24 hr RxNorm: 8 03454 TAKE 1 CAPSULE BY MOUTH TWICE DAILY REPLACES 180MG DOSE 04/17/2022 10/13/2022 Active pantoprazole 40 mg tablet,delayed release RxNorm: 913629 Take 1 Tablet(s) Oral QD 04/17/2022 10/13/2022 Active Xarelto 10 mg tablet RxNorm: 1276136 Take 1 Tablet(s) Oral QD 03/2105/21/2022 Inactive simvastatin 20 mg tablet RxNorm: 395951 Take 1 Tablet(s) Oral QD 02/23/2022 Inactive levothyroxine 88 mcg tablet RxNorm: 264006 Take 1 table t by mouth once daily due for updated lab 02/22/2022 02/22/2022 Inactive Cartia XT 120 mg capsule,extended release RxNorm: 064882 TAKE 1 CAPSULE BY MOUTH TWICE DAILY REPLACES 180MG DOSE 01/16/2022 01/16/2022 Inactive pantoprazole 40 mg tablet,delayed release RxNorm: 662099 Take 1 Oral QD 12/15/2021 12/15/2021 Inactive scopolamine 1 mg over 3 days transdermal patch RxNorm: 13154 2 Take 1 Application Transdermal Q3D as needed 11/23/2021 06/25/2022 Inactive Effexor XR 37.5 mg capsule,extended release RxNorm: 584426 1 Capsule(s) Oral QAM 11/23/2021 11/23/2021 Inactive levothyroxine 88 mcg tablet RxNorm: 997456 Take 1 tablet by alvaro once daily 11/21/2021 11/21/2021 Inactive diltiazem CD 120 mg capsule,extended release 24 hr RxNorm: 8 93191 TAKE 1 CAPSULE BY MOUTH TWICE DAILY REPLACES 180MG DOSE 10/17/2021 10/17/2021 Inactiv e pantoprazole 40 mg tablet,delayed release RxNorm: 187488 Take 1 Tablet(s) Oral QD 10/17/2021 10/17/2021 Inactive Effexor XR 37.5 mg capsule,extended release RxNorm: 545031 1 Capsule(s) Oral QAM 10/12/2021 11/22/2021 Inactive Xarelto 10 mg tablet RxNorm: 6375054 Take 1 Tablet(s) Oral QD 09/1409/14/2021 Inactive metoprolol succinate ER 50 mg tablet,extended release 24 hr RxNorm: 602935 Take 1/2 (one-half) tablet by mouth twice daily 09/14/2021 03/12/2022 Inact beto simvastatin 20 mg tablet RxNorm: 223805 Take 1 Tablet(s) Oral QD 08/30/2021 Inactive levothyroxine 88 mcg tablet RxNorm: 611826 Take 1 tablet by alvaro once daily 08/28/2021 08/28/2021 Inactive fluticasone propionate 50 mcg/actuation nasal spray,suspensi on RxNorm: 5151853 Take 1 [place] Nasal QD in each nostrilas needed 08/09/2021 09/07/2021 I nactive pantoprazole 40 mg tablet,delayed release RxNorm: 513626 Take 1 Tablet(s) Oral QD 07/19/2021 07/19/2021 Inactive Xarelto 10 mg tablet RxNorm: 4241948 Take 1 Tablet(s) Oral QD 06/2906/29/2021 Inactive Euthyrox 88 mcg tablet RxNorm: 503300 Take 1 tablet by mouth on ce daily 05/24/2021 05/24/2021 Inactive Effexor XR 37.5 mg capsule,extended release RxNorm: 007821 1 Capsule(s) Oral QAM 05/12/2021 07/27/2021 Inactive Xarelto 10 mg tablet RxNorm: 7009822 Take 1 tablet by [facility] once daily Take 1 Tablet(s) Oral QD 04/19/2021 04/19/2021 Inactive metoprolol succinate ER 50 mg tablet,extended release 24 hr RxNorm: 638601 1/2 Tablet(s) Oral two times a day 04/12/2021 04/12/2021 Inactive d ecrease in dose of 1/2 tablet twice daily metoprolol succinate ER 50 mg tablet,extended release 24 hr RxNorm: 925557 Take 1/2 (one-half) tablet by mouth twice daily 04/12/2021 10/11/2021 Inact beto simvastatin 20 mg tablet RxNorm: 230836 Take 1 Tablet(s) Oral QD 03/07/2021 Inactive prednisone 10 mg tablet RxNorm: 439150 Take 1 Tablet(s) Oral tw o times a day 03/01/2021 03/01/2021 Inactive triamcinolone acetonide 0.1 % topical cream RxNorm: 3391359 Apply 1 Application Topical two times a day 03/01/2021 03/01/2021 Inactive prednisone 10 mg tablet RxNorm: 961322 Take 1 Tablet(s) Oral tw o times a day 03/01/2021 03/03/2021 Inactive triamcinolone acetonide 0.1 % topical cream RxNorm: 2191211 Apply 1 Application Topical two times a day 03/01/2021 03/01/2021 Inactive Euthyrox 88 mcg tablet RxNorm: 669813 Take 1 tablet by mouth on ce daily 02/22/2021 02/22/2021 Inactive Effexor XR 37.5 mg capsule,extended release RxNorm: 158323 1 Capsule(s) Oral QAM 02/03/2021 02/02/2021 Inactive Effexor XR 37.5 mg capsule,extended release RxNorm: 071925 1 Capsule(s) Oral QAM 02/03/2021 04/03/2021 Inactive simvastatin 20 mg tablet RxNorm: 155911 Take 1 tablet by mouth once daily 1 01/25/2021 01/25/2021 Inactive Cardizem CD 120 mg capsule,extended release RxNorm: 680838 1 Capsule(s) Oral two times a day replaces 180mg dose 01/19/2021 01/19/2021 Inactive Protonix 40 mg tablet,delayed release RxNorm: 112189 1 Tablet(s ) Oral QD 01/17/2021 01/17/2021 Inactive Effexor XR 37.5 mg capsule,extended release RxNorm: 620430 1 Capsule(s) Oral QAM 01/04/2021 02/02/2021 Inactive scopolamine 1 mg over 3 days transdermal patch RxNorm: 15685 2 1 Application Transdermal behind ear for vertigo 01/04/2021 01/03/2021 Inactive scopolamine 1 mg over 3 days transdermal patch RxNorm: 73691 2 1 Application Transdermal behind ear for vertigo 01/04/2021 01/04/2021 Inactive metoprolol succinate ER 50 mg tablet,extended release 24 hr RxNorm: 609286 1/2 Tablet(s) Oral two times a day 12/29/2020 12/28/2020 Inactive metoprolol succinate ER 50 mg tablet,extended release 24 hr RxNorm: 821666 1/2 Tablet(s) Oral two times a day 12/29/2020 12/29/2020 Inactive d briaease in dose of 1/2 tablet twice daily Xarelto 10 mg tablet RxNorm: 7626084 Take 1 tablet by mouth once daily 12/29/2020 03/29/2021 Inactive Xarelto 10 mg tablet RxNorm: 3486062 Take 1 tablet by mouth once daily 11/26/2020 12/28/2020 Inactive simvastatin 20 mg tablet RxNorm: 317255 Take 1 tablet by mouth once daily 11/26/2020 01/24/2021 Inactive Synthroid 88 mcg tablet RxNorm: 591787 Take 1 tablet by mouth o nce daily 10/21/2020 10/21/2020 Inactive simvastatin 20 mg tablet RxNorm: 928403 Take 1 tablet by mouth once daily 09/30/2020 11/25/2020 Inactive Xarelto 10 mg tablet RxNorm: 9742634 Take 1 tablet by mouth once daily 08/26/2020 11/23/2020 Inactive metoprolol succinate ER 50 mg tablet,extended release 24 hr RxNorm: 990831 1 Tablet(s) Oral two times a day 08/05/2020 11/03/2020 Inactive simvastatin 20 mg tablet RxNorm: 910830 Take 1 tablet by mouth once daily 07/30/2020 09/27/2020 Inactive Synthroid 88 mcg tablet RxNorm: 973310 Take 1 tablet by mouth o nce daily 07/27/2020 10/20/2020 Inactive Protonix 40 mg tablet,delayed release RxNorm: 279662 1 Tablet(s ) Oral QD 07/26/2020 10/24/2020 Inactive Xarelto 10 mg tablet RxNorm: 3853212 1 Tablet(s) Oral QD 06/03/2020 1 10/26/2019 Inactive Cardizem CD 120 mg capsule,extended release RxNorm: 666046 1 Capsule(s) Oral two times a day replaces 180mg dose 05/11/2020 11/07/2020 Inactive Pradaxa 75 mg capsule RxNorm: 1581054 1 Capsule(s) Oral two time s a day 05/11/2020 05/11/2020 Inactive meclizine 25 mg tablet RxNorm: 301176 1 Tablet(s) Oral every ni ght at bedtime 05/05/2020 10/11/2021 Inactive simvastatin 20 mg tablet RxNorm: 652949 Take 1 tablet by mouth once daily 05/04/2020 05/10/2020 Inactive simvastatin 20 mg tablet RxNorm: 637250 TAKE 1 TABLET BY MOUTH ONCE DAILY 04/29/2020 09/19/2020 Inactive Synthroid 88 mcg tablet RxNorm: 922038 TAKE 1 TABLET BY MOUTH O NCE DAILY 04/20/2020 07/18/2020 Inactive diltiazem CD 180 mg capsule,extended release 24 hr RxNorm: 8 61216 TAKE 1 CAPSULE BY MOUTH TWICE DAILY 04/05/2020 05/10/2020 Inactive simvastatin 20 mg tablet RxNorm: 882315 TAKE 1 TABLET BY MOUTH ONCE DAILY 02/24/2020 04/23/2020 Inactive aspirin 325 mg tablet RxNorm: 469849 1 Tablet(s) Oral QD 02/11/2020 0 05/10/2020 Inactive hydroxyzine HCl 10 mg tablet RxNorm: 230328 1 Tablet(s) Oral th ree times a day 01/28/2020 05/10/2020 Inactive diltiazem CD 180 mg capsule,extended release 24 hr RxNorm: 8 02647 TAKE 1 CAPSULE BY MOUTH TWICE DAILY 01/19/2020 04/04/2020 Inactive spironolactone 25 mg tablet RxNorm: 060128 1 Tablet(s) Oral QOD replaces Triam/HCTZ 01/15/2020 01/14/2020 Inactive spironolactone 25 mg tablet RxNorm: 130621 1 Tablet(s) Oral QOD replaces Triam/HCTZ 01/15/2020 01/26/2020 Inactive prednisone 20 mg tablet RxNorm: 401621 1 Tablet(s) Oral QD 01/12/20 20 01/14/2020 Inactive prednisone 20 mg tablet RxNorm: 038045 1 Tablet(s) Oral QD 01/12/20 20 01/11/2020 Inactive Benadryl 25 mg capsule RxNorm: 7617976 1 Capsule(s) Oral every n ight at bedtime 01/08/2020 05/10/2020 Inactive Pepcid 20 mg tablet RxNorm: 478915 1 Tablet(s) Oral two times a day 01/08/2020 07/25/2020 Inactive [place] Original 0.5 %-0.5 % lotion RxNorm: 768268 Topical 0 10/11/2021 Inactive Zyrtec 10 mg tablet RxNorm: 8600943 1 Tablet(s) Oral QAM 01/08/2020 0 05/10/2020 Inactive metoprolol succinate ER 50 mg tablet,extended release 24 hr RxNorm: 968157 1 Tablet(s) Oral two times a day 01/05/2020 04/04/2020 Inactive Protonix 40 mg tablet,delayed release RxNorm: 247449 TA KE 1 TABLET BY MOUTH ONCE DAILY 12/29/2019 05/10/2020 Inactive triamterene 37.5 mg-hydrochlorothiazide 25 mg tablet RxNorm: 519141 TAKE 1/2 (ONE-HALF) TABLET BY MOUTH EVERY OTHER DAY 12/24/2019 01/14/2020 Inact beto triamterene 37.5 mg-hydrochlorothiazide 25 mg tablet RxNorm: 087469 1/2 Tablet(s) Oral QD 12/12/2019 01/26/2020 Inactive diltiazem CD 180 mg capsule,extended release 24 hr RxNorm: 8 17426 TAKE 1 CAPSULE BY MOUTH TWICE DAILY 12/03/2019 01/18/2020 Inactive Eliquis 2.5 mg tablet RxNorm: 4794575 1 Tablet(s) Oral two times a day 11/25/2019 02/10/2020 Inactive simvastatin 20 mg tablet RxNorm: 752828 TAKE 1 TABLET BY MOUTH ONCE DAILY 11/25/2019 02/22/2020 Inactive triamterene 37.5 mg-hydrochlorothiazide 25 mg tablet RxNorm: 214406 1/2 Tablet(s) Oral QOD 11/06/2019 12/11/2019 Inactive triamterene 37.5 mg-hydrochlorothiazide 25 mg tablet RxNorm: 097735 1/2 Tablet(s) Oral QD 10/22/2019 10/28/2019 Inactive meclizine 25 mg tablet RxNorm: 220658 1 Tablet(s) Oral every ni ght at bedtime 10/20/2019 11/19/2019 Inactive Synthroid 88 mcg tablet RxNorm: 965580 TAKE 1 TABLET BY MOUTH O NCE DAILY 10/20/2019 10/21/2019 Inactive scopolamine 1 mg over 3 days transdermal patch RxNorm: 13484 2 1 Unit Dose Transdermal Q72H for vertigo 10/14/2019 01/04/2020 Inactive scopolamine 1 mg over 3 days transdermal patch RxNorm: 98281 2 1 Unit Dose Transdermal Q72H for vertigo 10/14/2019 10/14/2019 Inactive Celebrex 200 mg capsule RxNorm: 698270 TAKE 1 CAPSULE BY MOUTH ONCE DAILY 10/12/2019 10/28/2019 Inactive triamterene 37.5 mg-hydrochlorothiazide 25 mg tablet RxNorm: 593079 1 Tablet(s) Oral QAM 10/06/2019 10/21/2019 Inactive diltiazem CD 180 mg capsule,extended release 24 hr RxNorm: 8 64245 1 Capsule(s) Oral two times a day 10/01/2019 11/29/2019 Inactive simvastatin 20 mg tablet RxNorm: 692632 TAKE 1 TABLET BY MOUTH ONCE DAILY 10/01/2019 10/01/2019 Inactive Patient will need to have fasting labs done before next refill Protonix 40 mg tablet,delayed release RxNorm: 344325 TA KE 1 TABLET BY MOUTH ONCE DAILY 09/28/2019 12/26/2019 Inactive diltiazem CD 180 mg capsule,extended release 24 hr RxNorm: 8 52040 1 Capsule(s) Oral two times a day 08/11/2019 08/10/2019 Inactive diltiazem CD 180 mg capsule,extended release 24 hr RxNorm: 8 17695 1 Capsule(s) Oral two times a day 08/11/2019 09/30/2019 Inactive diltiazem CD 120 mg capsule,extended release 24 hr RxNorm: 8 88422 1 Capsule(s) Oral two times a day 07/23/2019 08/10/2019 Inactive Celebrex 200 mg capsule RxNorm: 886955 1 Capsule(s) Oral QD 019 07/08/2019 Inactive Celebrex 200 mg capsule RxNorm: 160098 1 Capsule(s) Oral QD 019 10/07/2019 Inactive diltiazem CD 120 mg capsule,extended release 24 hr RxNorm: 8 75720 1 Capsule(s) Oral QAM 07/07/2019 07/22/2019 Inactive Eliquis 2.5 mg tablet RxNorm: 0735638 1 Tablet(s) Oral two times a day 07/07/2019 11/04/2019 Inactive metoprolol succinate ER 50 mg tablet,extended release 24 hr RxNorm: 437747 1 Tablet(s) Oral QAM and 2 tablets in the evening 06/30/2019 08/05/2020 Inactive hydrochlorothiazide 25 mg tablet RxNorm: 383107 1 Tablet(s) PO QD 1 07/06/2019 Inactive hydrochlorothiazide 25 mg tablet RxNorm: 728545 1 Tablet(s) PO QD 0 05/08/2019 05/07/2019 Inactive patient needs to follow up i n 2 months and continue BP readings at home hydrochlorothiazide 25 mg tablet RxNorm: 096831 1 Tablet(s) PO QD 0 05/08/2019 06/25/2019 Inactive patient needs to follow up i n 2 months and continue BP readings at home metoprolol succinate ER 50 mg tablet,extended release 24 hr RxNorm: 956798 1 Tablet(s) PO QAM and 2 tablets in the evening 05/08/2019 06/29/2019 In active hydrochlorothiazide 12.5 mg tablet RxNorm: 084362 1 Tablet(s) PO QA M 04/15/2019 05/07/2019 Inactive Synthroid 88 mcg tablet RxNorm: 420523 TAKE 1 TABLET BY MOUTH O NCE DAILY 04/14/2019 10/19/2019 Inactive Protonix 40 mg tablet,delayed release RxNorm: 419361 TA KE 1 TABLET BY MOUTH ONCE DAILY 03/24/2019 09/27/2019 Inactive simvastatin 20 mg tablet RxNorm: 025951 TAKE 1 TABLET BY MOUTH ONCE DAILY 03/24/2019 09/30/2019 Inactive losartan 100 mg tablet RxNorm: 134616 1/2 Tablet(s) PO QD 2019 04/14/2019 Inactive Cozaar 50 mg tablet RxNorm: 254725 1 Tablet(s) PO QHS 01/28/201903/25 Inactive Celebrex 200 mg capsule RxNorm: 587941 TAKE 1 CAPSULE BY MOUTH ONCE DAILY 01/10/2019 07/08/2019 Inactive Protonix 40 mg tablet,delayed release RxNorm: 709712 TA KE 1 TABLET BY MOUTH ONCE DAILY 12/23/2018 03/23/2019 Inactive metoprolol succinate ER 50 mg tablet,extended release 24 hr RxNorm: 103925 1.5 Tablet(s) PO BID 12/03/2018 04/14/2019 Inactive Synthroid 88 mcg tablet RxNorm: 967581 1 Tablet(s) PO QD 10/24/2018 0 04/13/2019 Inactive simvastatin 20 mg tablet RxNorm: 075887 1 Tablet(s) PO QD 09/27/2018 12/25/2018 Inactive simvastatin 20 mg tablet RxNorm: 185669 1 Tablet(s) PO QD 09/26/2018 09/26/2018 Inactive Cozaar 50 mg tablet RxNorm: 531472 1 Tablet(s) PO QHS 09/09/20180 02/2019 Inactive Cozaar 50 mg tablet RxNorm: 280694 1 Tablet(s) PO QHS 09/09/201808/24 Inactive metoprolol succinate ER 50 mg tablet,extended release 24 hr RxNorm: 262966 1.5 Tablet(s) PO BID 09/02/2018 11/30/2018 Inactive Cozaar 50 mg tablet RxNorm: 779800 1 Tablet(s) PO QHS 05/24/201808/24 Inactive Cozaar 25 mg tablet RxNorm: 643429 1 Tablet(s) PO QAM 05/10/201804/25 Inactive clonidine HCl 0.1 mg tablet RxNorm: 931751 1 Tablet(s) PO TID as needed for BP greater than 160/95 05/10/2018 05/20/2018 Inactive betamethasone dipropionate 0.05 % topical cream RxNorm: 2389 20 1 Application TOP BID 05/06/2018 11/25/2018 Inactive prednisone 20 mg tablet RxNorm: 894544 1 Tablet(s) PO QD 05/06/2018 0 05/05/2018 Inactive prednisone 20 mg tablet RxNorm: 090232 1 Tablet(s) PO QD 05/06/2018 0 05/10/2018 Inactive metoprolol succinate ER 50 mg tablet,extended release 24 hr RxNorm: 089917 1.5 Tablet(s) PO BID 05/06/2018 09/01/2018 Inactive Flonase Allergy Relief 50 mcg/actuation nasal spray,suspensi on RxNorm: 5291916 2 [place] NASAL QHS 05/03/2018 11/25/2018 Inactive Celebrex 200 mg capsule RxNorm: 063622 TAKE ONE CAPSULE BY MOUT H ONCE DAILY 04/30/2018 05/02/2018 Inactive Celebrex 200 mg capsule RxNorm: 028679 1 Capsule(s) PO QD TAKE ONE CAPSULE BY MOUTH ONCE DAILY 04/30/2018 05/02/2018 Inactive Synthroid 88 mcg tablet RxNorm: 017976 1 Tablet(s) PO QD 03/12/2018 1 11/08/2017 Inactive acyclovir 5 % topical ointment RxNorm: 900476 1 Unit Dose TOP Q 6H as needed 03/05/2018 11/25/2018 Inactive Protonix 40 mg tablet,delayed release RxNorm: 559822 1 Tablet(s ) PO QD 12/17/2017 12/22/2018 Inactive simvastatin 20 mg tablet RxNorm: 706422 TAKE ONE TABLET BY MOUT H ONCE DAILY 12/17/2017 09/27/2018 Inactive Celebrex 200 mg capsule RxNorm: 313049 TAKE ONE CAPSULE BY MOUT H ONCE DAILY 10/30/2017 04/29/2018 Inactive Synthroid 88 mcg tablet RxNorm: 667953 1 Tablet(s) PO QD 09/19/2017 0 03/12/2018 Inactive Synthroid 88 mcg tablet RxNorm: 035518 1 Tablet(s) PO QD Needs updated labs 09/19/2017 10/24/2018 Inactive Synthroid 88 mcg tablet RxNorm: 460964 1 Tablet(s) PO QD 06/20/2017 1 11/18/2016 Inactive simvastatin 20 mg tablet RxNorm: 804399 1 Tablet(s) PO QD 06/15/2017 09/12/2017 Inactive simvastatin 20 mg tablet RxNorm: 385660 1 Tablet(s) PO QD 06/15/2017 06/14/2017 Inactive metoprolol succinate ER 25 mg tablet,extended release 24 hr RxNorm: 179180 1 Tablet(s) PO QD 06/14/2017 07/23/2017 Inactive Valtrex 1 gram tablet RxNorm: 717586 1 Tablet(s) PO TID 06/01/2017 Inactive Celebrex 200 mg capsule RxNorm: 484466 1 Capsule(s) PO QD 05/01/2017 10/27/2017 Inactive Toprol XL 25 mg tablet,extended release RxNorm: 757595 1/2 Tabl et(s) PO QD 04/12/2017 06/13/2017 Inactive simvastatin 20 mg tablet RxNorm: 165492 1 Tablet(s) PO QD 03/19/2017 06/14/2017 Inactive Synthroid 88 mcg tablet RxNorm: 391805 1 Tablet(s) PO QD 03/14/2017 0 06/20/2017 Inactive aspirin 81 mg chewable tablet RxNorm: 811402 1 Tablet(s) PO QD 12/2404/21/2018 Inactive simvastatin 20 mg tablet RxNorm: 906529 TAKE ONE TABLET BY MOUT H ONCE DAILY 12/19/2016 03/19/2017 Inactive gabapentin 300 mg capsule RxNorm: 186213 1 Capsule(s) PO QHS 201603/29/2017 Inactive Protonix 40 mg tablet,delayed release RxNorm: 078703 TA KE ONE TABLET BY MOUTH ONCE DAILY 12/14/2016 12/08/2017 Inactive Flonase Allergy Relief 50 mcg/actuation nasal spray,suspensi on RxNorm: 5388331 2 [place] NASAL QHS 11/02/2016 12/17/2016 Inactive clotrimazole-betamethasone 1 %-0.05 % topical cream RxNorm: 465830 1 Application TOP BID 11/02/2016 11/01/2016 Inactive clotrimazole-betamethasone 1 %-0.05 % topical cream RxNorm: 713112 1 Application TOP BID 11/02/2016 12/17/2016 Inactive Tessalon Perles 100 mg capsule RxNorm: 056113 1 Capsule(s) PO TID 0 11/02/2016 12/17/2016 Inactive amoxicillin 500 mg tablet RxNorm: 758747 1 Tablet(s) PO TID 017 11/01/2016 Inactive Toprol XL 25 mg tablet,extended release RxNorm: 896132 TAKE ONE-HALF TABLET BY MOUTH ONCE DAILY 10/19/2016 04/12/2017 Inactive Toprol XL 25 mg tablet,extended release RxNorm: 260943 1/2 Tablet(s) PO QD Due for routine fasting labs and appointment 10/19/2016 01/16/2017 Inactiv e gabapentin 600 mg tablet RxNorm: 078167 1 Tablet(s) PO QHS 07/24/20 16 12/17/2016 Inactive gabapentin 600 mg tablet RxNorm: 277829 TAKE ONE TABLET BY MOUT H AT BEDTIME 07/24/2016 07/23/2016 Inactive simvastatin 20 mg tablet RxNorm: 991331 TAKE ONE TABLET BY MOUT H ONCE DAILY 06/15/2016 12/11/2016 Inactive Celebrex 200 mg capsule RxNorm: 216800 1 Capsule(s) PO QD 05/10/2016 05/01/2017 Inactive Celebrex 200 mg capsule RxNorm: 297078 1 Capsule(s) PO QD 05/09/2016 05/09/2016 Inactive Synthroid 88 mcg tablet RxNorm: 272841 Tablet(s) 1 Tablet(s) PO QD 03/21/2016 09/16/2016 Inactive Synthroid 88 mcg tablet RxNorm: 910707 1 Tablet(s) PO QD 03/20/2016 0 03/20/2016 Inactive simvastatin 20 mg tablet RxNorm: 397648 TAKE ONE TABLET BY MOUT H ONCE DAILY 03/06/2016 06/03/2016 Inactive meclizine 25 mg tablet RxNorm: 563298 1 Tablet(s) PO TID as nee ded dizziness 02/07/2016 12/17/2016 Inactive Zofran ODT 4 mg disintegrating tablet RxNorm: 153488 1 Tablet(s) PO Q6H as needed for nausea 02/07/2016 12/17/2016 Inactive gabapentin 600 mg tablet RxNorm: 425708 TAKE ONE TABLET BY MOUT H AT BEDTIME 01/20/2016 07/17/2016 Inactive Synthroid 88 mcg tablet RxNorm: 059537 1 Tablet(s) PO QD 12/27/2015 0 03/19/2016 Inactive simvastatin 20 mg tablet RxNorm: 568167 1 Tablet(s) PO QD 12/06/2015 03/04/2016 Inactive Protonix 40 mg tablet,delayed release RxNorm: 057716 1 Tablet(s ) PO QD 12/06/2015 12/13/2016 Inactive Celebrex 200 mg capsule RxNorm: 924412 1 Capsule(s) PO QD 11/03/2015 05/10/2016 Inactive Celebrex 200 mg capsule RxNorm: 511516 1 Capsule(s) PO QD 11/03/2015 11/02/2015 Inactive simvastatin 20 mg tablet RxNorm: 325189 1 Tablet(s) PO QD 09/06/2015 12/04/2015 Inactive Gralise 600 mg tablet,extended release RxNorm: 2039970 1 Tablet( s) PO QD 08/23/2015 10/18/2015 Inactive Synthroid 88 mcg tablet RxNorm: 486504 1 Tablet(s) PO QD 06/30/2015 0 09/27/2015 Inactive simvastatin 20 mg tablet RxNorm: 373696 1 Tablet(s) PO QD 06/07/2015 09/04/2015 Inactive Synthroid 88 mcg tablet RxNorm: 855056 1 Tablet(s) PO QD 06/07/2015 1 Inactive Celebrex 200 mg capsule RxNorm: 082747 1 Capsule(s) PO QD 06/07/2015 11/02/2015 Inactive Protonix 40 mg tablet,delayed release RxNorm: 923245 1 Tablet(s ) PO QD 06/07/2015 12/03/2015 Inactive Toprol XL 25 mg tablet,extended release RxNorm: 432078 1/2 Tabl et(s) PO QD 04/13/2015 10/09/2015 Inactive [SAVINGS FOR UNINSUR ED PATIENTS -- BIN:[id number], PCN: ASPROD1, Group: [id number], ID# [id number], Process claim through [employer], for questions: . THIS IS NOT INSURANCE.] Synthroid 88 mcg tablet RxNorm: 460675 1 Tablet(s) PO Q D TAKE ONE TABLET BY MOUTH ONCE DAILY 03/29/2015 06/30/2015 Inactive Celebrex 200 mg capsule RxNorm: 633614 1 Capsule(s) PO QD 03/22/2015 06/06/2015 Inactive Celebrex 200 mg capsule RxNorm: 926973 1 Capsule(s) PO QD 02/22/2015 03/21/2015 Inactive Celebrex 200 mg capsule RxNorm: 605086 1 Capsule(s) PO QD 01/21/2015 02/21/2015 Inactive Synthroid 88 mcg tablet RxNorm: 661185 1 Tablet(s) PO Q D TAKE ONE TABLET BY MOUTH ONCE DAILY 12/21/2014 03/29/2015 Inactive meloxicam 15 mg tablet RxNorm: 673066 1 Tablet(s) PO QD 12/09/2014 Inactive [SAVINGS FOR NON-COVERED DRUGS -- BIN:[id number], PCN: ASPROD1, Group: XXXXX, ID# [id number], Questions: . THIS IS NOT INSURANCE.] Protonix 40 mg tablet,delayed release RxNorm: 564532 1 Tablet(s ) PO QD 12/08/2014 06/05/2015 Inactive Protonix 40 mg tablet,delayed release RxNorm: 022364 1 Tablet(s ) PO QD 12/07/2014 12/07/2014 Inactive simvastatin 20 mg tablet RxNorm: 767397 TAKE ONE TABLET BY MOUT H ONCE DAILY 11/30/2014 05/28/2015 Inactive clotrimazole-betamethasone 1 %-0.05 % topical cream RxNorm: 3087 14 TOP BID 11/30/2014 11/01/2016 Inactive acetic acid 2 % ear solution RxNorm: 895875 5 Drop(s) OTIC Left ear QID 11/30/2014 12/06/2014 Inactive meloxicam 15 mg tablet RxNorm: 141219 1 Tablet(s) PO QD 10/30/2014 Inactive [SAVINGS FOR NON-COVERED DRUGS -- BIN:00 [id number], PCN: [id number], Group: [id number], ID# [id number], Questions: . THIS IS NOT INSURANCE.] meloxicam 15 mg tablet RxNorm: 971448 1 Tablet(s) PO QD 10/30/2014 Inactive Toprol XL 25 mg tablet,extended release RxNorm: 261520 1/2 Tabl et(s) PO QD 10/12/2014 04/09/2015 Inactive [SAVINGS FOR UNINSUR ED PATIENTS -- BIN:[id number], PCN: [id number], Group: [id number], ID# [id number], Process claim through [employer], for questions: . THIS IS NOT INSURANCE.] Synthroid 88 mcg tablet RxNorm: 539188 1 Tablet(s) PO Q D TAKE ONE TABLET BY MOUTH ONCE DAILY 09/21/2014 12/19/2014 Inactive Protonix 40 mg tablet,delayed release RxNorm: 009165 1 Tablet(s ) PO QD 07/23/2014 11/19/2014 Inactive Synthroid 88 mcg tablet RxNorm: 414494 TAKE ONE TABLET BY MOUTH ONCE DAILY 06/23/2014 09/21/2014 Inactive omeprazole 40 mg capsule,delayed release RxNorm: 274038 1 Capsu le(s) PO QD 06/16/2014 07/22/2014 Inactive [SAVINGS FOR UNINSUR ED PATIENTS -- [id number], PCN: [id number], Group: [id number], ID# [id number], Process claim through [employer], for questions: . THIS IS NOT INSURANCE.] Toprol XL 25 mg tablet,extended release RxNorm: 926994 1/2 Tabl et(s) PO QD 04/13/2014 10/12/2014 Inactive Celebrex 200 mg capsule RxNorm: 326979 1 Capsule(s) PO QD for pain 03/16/2014 10/29/2014 Inactive Medrol (Ochoa) 4 mg tablets in a dose pack RxNorm: 645914 Tablet(s) PO as directed 03/09/2014 07/22/2014 Inactive Synthroid 88 mcg tablet RxNorm: 106374 1 Tablet(s) PO QD 02/17/2014 0 06/23/2014 Inactive Celebrex 200 mg capsule RxNorm: 822791 1 Capsule(s) PO QD for pain 02/17/2014 03/15/2014 Inactive omeprazole 40 mg capsule,delayed release RxNorm: 514017 1 Capsu le(s) PO QD 02/05/2014 06/16/2014 Inactive Protonix 40 mg tablet,delayed release RxNorm: 567702 1 Tablet(s ) PO QD 01/23/2014 05/10/2020 Inactive Toprol XL 25 mg tablet,extended release RxNorm: 430349 1/2 Tablet(s) PO QD TAKE ONE-HALF TABLET BY MOUTH EVERY DAY 01/12/2014 04/13/2014 Inactive Synthroid 88 mcg tablet RxNorm: 534628 Tablet(s) PO MANDY E ONE TABLET BY MOUTH EVERY DAY 11/17/2013 02/17/2014 Inactive Celebrex 200 mg capsule RxNorm: 111811 1 Capsule(s) PO QD for pain 10/20/2013 02/17/2014 Inactive Toprol XL 25 mg tablet,extended release RxNorm: 359055 1/2 Tabl et(s) PO QD 07/17/2013 01/12/2014 Inactive Nexium 40 mg capsule,delayed release RxNorm: 039946 1 C apsule(s) PO QD Generic ok 07/14/2013 09/21/2013 Inactive Celebrex 200 mg capsule RxNorm: 226885 1 Capsule(s) PO QD for pain 06/19/2013 10/20/2013 Inactive Synthroid 88 mcg tablet RxNorm: 847282 1 Tablet(s) PO QD 05/13/2013 0 11/17/2013 Inactive TAKE ONE TABLET BY MOUTH EVERY DAY Nexium 40 mg capsule,delayed release RxNorm: 077496 Cap maureen(s) PO TAKE ONE CAPSULE BY MOUTH EVERY DAY 05/05/2013 07/13/2013 Inactive Celebrex 200 mg capsule RxNorm: 536175 1 Capsule(s) PO QD for pain 04/07/2013 06/19/2013 Inactive Esgic-Plus 50 mg-500 mg-40 mg capsule RxNorm: 528946 1 Capsule(s) PO Q4-6H prn headache 04/07/2013 04/07/2013 Inactive Toprol XL 25 mg tablet,extended release RxNorm: 760879 1/2 Tabl et(s) PO QD 12/16/2012 06/13/2013 Inactive Nexium 40 mg capsule,delayed release RxNorm: 389200 1 Capsule(s ) PO QD 11/20/2012 03/19/2013 Inactive Synthroid 88 mcg tablet RxNorm: 140636 1 Tablet(s) PO QD 10/28/2012 0 04/25/2013 Inactive TAKE ONE TABLET BY MOUTH EVERY DAY Toprol XL 25 mg tablet,extended release RxNorm: 736554 1/2 Tabl et(s) PO QD 09/25/2012 12/16/2012 Inactive Synthroid 88 mcg tablet RxNorm: 319013 1 Tablet(s) PO QD 04/22/2012 0 10/28/2012 Inactive TAKE ONE TABLET BY MOUTH EVERY DAY Nexium 40 mg capsule,delayed release RxNorm: 844630 1 Capsule(s ) PO QD 04/16/2012 11/20/2012 Inactive Esgic-Plus 50 mg-500 mg-40 mg capsule RxNorm: 344372 1 Capsule(s) PO Q4-6H prn headache 03/28/2012 04/06/2013 Inactive Toprol XL 25 mg tablet,extended release RxNorm: 915383 1/2 Tabl et(s) PO QD 03/07/2012 09/25/2012 Inactive Toprol XL 25 mg 24 hr Tab RxNorm: 036147 1/2 Tablet(s) PO QD 201101/03/2012 Inactive Three times a week Synthroid 88 mcg Tab RxNorm: 083709 1 Tablet(s) PO QD 10/10/201112/23 Inactive TAKE ONE TABLET BY MOUTH EVERY DAY prednisone 20 mg Tab RxNorm: 827656 1 Tablet(s) PO BID 09/13/2011 Inactive doxycycline 100 mg Cap RxNorm: 6607826 1 Capsule(s) PO BID 09/13/2009/22/2011 Inactive cefdinir 300 mg Cap RxNorm: 503907 1 Capsule(s) PO BID 08/07/2011 Inactive Synthroid 88 mcg Tab RxNorm: 631239 1 Tablet(s) PO QD 07/19/201109/24 Inactive TAKE ONE TABLET BY MOUTH EVERY DAY Synthroid 88 mcg Tab RxNorm: 552591 1 Tablet(s) PO QD 07/19/201103/26 Inactive TAKE ONE TABLET BY MOUTH EVERY DAY Synthroid 88 mcg Tab RxNorm: 650749 1 Tablet(s) PO QD 07/18/201106/25 Inactive TAKE ONE TABLET BY MOUTH EVERY DAY Synthroid 88 mcg Tab RxNorm: 481267 1 Tablet(s) PO QD 05/15/201106/25 Inactive TAKE ONE TABLET BY MOUTH EVERY DAY Synthroid 88 mcg Tab RxNorm: 075992 1 Tablet(s) PO QD 03/15/201104/25 Inactive Synthroid 75 mcg Tab RxNorm: 347095 1 Tablet(s) PO QD 01/04/201102/22 Inactive Synthroid 50 mcg Tab RxNorm: 036784 1 Tablet(s) PO QD G eneric okay. Please explain to patient that she may see more variation in her thyroid labs and increased symptoms. 07/07/2010 03/14/2011 Inactive Prednisone 20 mg Tab RxNorm: 678020 1 Tablet(s) PO BID 02/14/2010 Inactive Flexeril 10 mg Tab RxNorm: 487246 1 Tablet(s) PO TID 02/07/201002/13 Inactive Synthroid 25 mcg Tab RxNorm: 993721 1 Tablet(s) PO QD 12/29/200902/23 Inactive Synthroid 50 mcg Tab RxNorm: 833519 1 Tablet(s) PO QD 12/29/2009/0 11/2009 Inactive Vitamin D3 2,000 unit tablet RxNorm: 228533 1 Tablet(s) PO QAM 2014 Active coenzyme Q10 200 mg tablet RxNorm: 863648 1 Tablet(s) PO QD 09/01/2014 Active Trelegy Ellipta inhalation RxNorm: 5172641 inhalation 05/30/2022 Active Vitamin B12 1000mcg Tablet RxNorm: 1/2 Tablet(s) PO QD 04/03/2017 Active gabapentin 600 mg tablet RxNorm: 426343 1 Tablet(s) PO QPM 01/20/20 16 01/19/2016 Inactive Fish Oil 1,000 mg capsule RxNorm: 1 Capsule(s) PO QHS 10/18/2017 0 10/17/2017 Inactive Toprol XL 25 mg 24 hr Tab RxNorm: 668303 1/2 Tablet(s) PO QD 201103/06/2012 Inactive turmeric root extract oral RxNorm: 7394888 oral 05/26/20152014 Inactive Esgic 50 mg-325 mg-40 mg tablet RxNorm: 826615 1 Tablet (s) PO Q4H as needed for pain 05/26/2015 05/25/2015 Inactive Synthroid 88 mcg Tab RxNorm: 171253 1 Tablet(s) PO QD 03/15/201102/23 Inactive Calcium with Vitamin D 600 mg-400 unit Tab RxNorm: 596185 1 Tab let(s) PO BID 03/31/2013 03/30/2013 Inactive Synthroid 50 mcg Tab RxNorm: 574723 1 Tablet(s) PO QD 03/16/201002/23 Inactive Celebrex 200 mg capsule RxNorm: 874207 1 Capsule(s) PO QD 01/21/2015 01/20/2015 Inactive betamethasone dipropionate 0.05 % topical cream RxNorm: 2389 20 1 Application TOP BID 05/06/2018 05/05/2018 Inactive Protonix 40 mg tablet,delayed release RxNorm: 873847 1 Tablet(s ) PO QD 01/23/2014 01/23/2014 Inactive Calcium + D 600 mg (1,500)-200 unit Tab RxNorm: 641178 1 Tablet (s) PO QD 01/04/2011 01/03/2011 Inactive simvastatin 20 mg tablet RxNorm: 958501 1 Tablet(s) PO QD 11/30/2014 11/29/2014 Inactive Fish Oil 1,000 mg capsule RxNorm: 2 Capsule(s) PO QD 05/26/2015 Inactive Gralise 600 mg tablet,extended release RxNorm: 3781717 1 Tablet( s) PO QD 08/23/2015 08/22/2015 Inactive Vitamin B12 1000mcg Tablet RxNorm: 1 Tablet(s) PO QD 04/03/2017 Inactive Esgic-Plus 50 mg-500 mg-40 mg Cap RxNorm: 999475 1 Caps ule(s) PO Q4-6H prn headache 03/28/2012 03/27/2012 Inactive Cozaar 50 mg tablet RxNorm: 170923 1 Tablet(s) PO QHS 05/24/201804/26 Inactive Toprol XL 25 mg 24 hr Tab RxNorm: 253660 2 Tablet(s) PO Three t imes a week 01/01/2012 12/31/2011 Inactive metoprolol succinate ER 25 mg tablet,extended release 24 hr RxNorm: 247599 1 Tablet(s) PO TID 10/18/2017 10/17/2017 Inactive metoprolol succinate ER 50 mg tablet,extended release 24 hr RxNorm: 862472 1.5 Tablet(s) PO QAM and tablet at bedtime 05/06/2018 05/05/2018 Inactive Esgic-Plus 50 mg-500 mg-40 mg Cap RxNorm: 018301 1 Capsule(s) P O Q4-6H 08/07/2011 08/06/2011 Inactive metoprolol succinate ER 50 mg tablet,extended release 24 hr RxNorm: 049372 1 Tablet(s) PO QD 04/22/2018 04/21/2018 Inactive Multivitamin & Mineral Formula Tab RxNorm: 1 Tablet(s) PO QD 0 03/31/2013 03/30/2013 Inactive metoprolol succinate ER 50 mg tablet,extended release 24 hr RxNorm: 925084 2 Tablet(s) PO QAM and 1.5 tablets (75mg) at bedtime 05/01/2019 9 Inactive Fish Oil 1,000 mg Cap RxNorm: 1 Capsule(s) PO QD 03/31/20132012 Inactive pantoprazole 40 mg tablet,delayed release RxNorm: 865315 1 Tabl et(s) PO QD 02/05/2014 02/04/2014 Inactive Eliquis 2.5 mg tablet RxNorm: 0165791 1 Tablet(s) PO BID 07/07/2019 1 Inactive Medrol 4 mg Tab RxNorm: 787142 Tablet(s) PO as directed 03/28/2012 Inactive Synthroid 75 mcg Tab RxNorm: 578685 1 Tablet(s) PO QD 02/14/201001/23 Inactive aspirin 81 mg tablet RxNorm: 544747 1 Tablet(s) PO QD 05/26/201509/2014 Inactive meclizine 25 mg tablet RxNorm: 020242 1 Tablet(s) PO TID as needed 11/26/2018 11/25/2018 Inactive metoprolol succinate ER 50 mg tablet,extended release 24 hr RxNorm: 048185 1 Tablet(s) PO QAM and 2 tablets in the evening 05/08/2019 05/07/2019 In active Aspirin 81 mg Tab RxNorm: 709579 1 Tablet(s) PO QD 03/31/2013 013 Inactive Vitamin D3 1,000 unit capsule RxNorm: 801432 1 Capsule(s) PO QD 04/201303/30/2013 Inactive Medication Administered No Medication Administered data Immunizations Vaccine Codes Dose Date Status Pneumococcal CVX: 133 0.5 ml 05/26/2015 Results Observation Observation Code Item Item Code Result Date S ervice Location GLYCOSYLATED HEMOGLOBIN TEST 25043 Hgb A1c 78369-4 6.0 % 0 03/01/2022 Unknown MEAN GLUC 0785763 Calc Mean Gluc 126 mg/dL 03/01/2022 Unkn own COMPREHENSIVE METABOLIC 14919 AST 16 U/L 2021 Unknown COMPREHENSIVE METABOLIC 90329 ALT 15 U/L 2021 Unknown COMPREHENSIVE METABOLIC 01525 BUN 18 mg/dL 2021 Unknown COMPREHENSIVE METABOLIC 48758 ALBUMIN 4.3 g/dL 2021 Unknown COMPREHENSIVE METABOLIC 30983 CHLORIDE 104 mmol/L 02/28 Unknown COMPREHENSIVE METABOLIC 52886 Bili Total 0.8 mg/dL 02/28 Unknown COMPREHENSIVE METABOLIC 17718 ALK PHOS 93 U/L 2021 Unknown COMPREHENSIVE METABOLIC 84683 SODIUM 143 mmol/L 02/28 Unknown COMPREHENSIVE METABOLIC 95370 CREATININE 0.82 mg/dL 03/2022 Unknown COMPREHENSIVE METABOLIC 37133 CALCIUM 9.8 mg/dL 2021 Unknown COMPREHENSIVE METABOLIC 60690 POTASSIUM 4.2 mmol/L 02/28 Unknown COMPREHENSIVE METABOLIC 17242 Total Protein 7.7 g/dL Unknown COMPREHENSIVE METABOLIC 14036 Glucose 116 mg/dL 2021 Unknown COMPREHENSIVE METABOLIC 05688 Bicarbonate 26 mmol/L 03/2022 Unknown COMPREHENSIVE METABOLIC 93542 AGAP 13 mmol/L 2021 Unknown FREE T4 48497 T4 Free 1.15 ng/dL 02/28/2022 Unknown THYROID STIMULATING HORMONE 26945 TSH 3.512 uIU/mL 02/28/2022 Unknown LIPID GROUP 57273 Cholesterol 158 mg/dL 02/28/2022 Unkno wn LIPID GROUP 01139 Triglyceride 78 mg/dL 02/28/2022 Unkn own LIPID GROUP 40813 HDL CHOLESTEROL 66 mg/dL 02/28/2022 U nknown LIPID GROUP 32128 Chol/HDL Ratio 2.39 ratio 02/28/2022 U nknown LIPID GROUP 40846 NON-HDL Chol 92 mg/dL 02/28/2022 Unkn own LIPID GROUP 60139 LDL Cholesterol 76 mg/dL 02/28/2022 U nknown COMPLETE BLOOD COUNT [id number] WBC 6.9 10e9/L 02/29/20 22 Unknown COMPLETE BLOOD COUNT 9103030 RBC 4.61 10e12/L 2021 Unknown COMPLETE BLOOD COUNT 8056303 HEMOGLOBIN 13.0 g/dL 02/29/20 22 Unknown COMPLETE BLOOD COUNT [id number] HEMATOCRIT 42.1 % 02/29/20 22 Unknown COMPLETE BLOOD COUNT 8163476 MCV 91.3 fL 2 Unknown COMPLETE BLOOD COUNT 1286039 MCH 28.2 pg 2 Unknown COMPLETE BLOOD COUNT 6476942 MCHC 30.9 g/dL 2 Unknown COMPLETE BLOOD COUNT [id number] PLATELET COUNT 276 10e9/L 03/2022 Unknown COMPLETE BLOOD COUNT 5153140 Mean Plt Volume 10.6 fL 03/2022 Unknown COMPLETE BLOOD COUNT [id number] NRBC Absolute 0.00 10e9/L 03/2022 Unknown COMPLETE BLOOD COUNT 8286778 Neut Auto 53.0 % 2 Unknown COMPLETE BLOOD COUNT 6777464 NRBC/100 WBC 0.0 2021 Unknown COMPLETE BLOOD COUNT [id number] Lymph Auto 32.0 % 02/29/20 22 Unknown COMPLETE BLOOD COUNT [id number] Navarro Auto 11.0 % 2 Unknown COMPLETE BLOOD COUNT [id number] RDW 14.4 % 2 Unknown COMPLETE BLOOD COUNT 3542174 Eos Auto 2.5 % 2 Unknown COMPLETE BLOOD COUNT 4683544 Baso Auto 1.4 % 2 Unknown COMPLETE BLOOD COUNT [id number] Neutrophil Abs 3.66 10e9/L Unknown COMPLETE BLOOD COUNT 0677805 Imm Gran Auto 0.1 % 02/28 Unknown COMPLETE BLOOD COUNT [id number] Lymphocyte Abs 2.21 10e9/L Unknown COMPLETE BLOOD COUNT [id number] Monocyte Abs 0.76 10e9/L 03/2022 Unknown COMPLETE BLOOD COUNT [id number] Eosinophil Abs 0.17 10e9/L Unknown COMPLETE BLOOD COUNT [id number] RDW-SD 47.8 fL 2 Unknown COMPLETE BLOOD COUNT [id number] Basophil Abs 0.10 10e9/L 03/2022 Unknown COMPLETE BLOOD COUNT [id number] Imm Gran Abs 0.01 10e9/L 03/2022 Unknown GFR CALC [id number] GFR >60 mL/min 02/28/2022 Unknown THYROID STIMULATING HORMONE 26535 TSH 3.017 uIU/mL 01/31/2021 Unknown COMPLETE BLOOD COUNT [id number] WBC 6.1 10e9/L 02/01/20 21 Unknown COMPLETE BLOOD COUNT [id number] RBC 4.22 10e12/L 2020 Unknown COMPLETE BLOOD COUNT [id number] HEMOGLOBIN 12.1 g/dL 02/01/20 21 Unknown COMPLETE BLOOD COUNT [id number] HEMATOCRIT 39.5 % 02/01/20 21 Unknown COMPLETE BLOOD COUNT [id number] MCV 93.6 fL 1 Unknown COMPLETE BLOOD COUNT [id number] MCH 28.7 pg 1 Unknown COMPLETE BLOOD COUNT 5665282 MCHC 30.6 g/dL 1 Unknown COMPLETE BLOOD COUNT 7535127 PLATELET COUNT 271 10e9/L 06/2021 Unknown COMPLETE BLOOD COUNT [id number] Mean Plt Volume 11.0 fL 06/2021 Unknown COMPLETE BLOOD COUNT [id number] Neut Auto 57.3 % 1 Unknown COMPLETE BLOOD COUNT [id number] Lymph Auto 28.3 % 02/01/20 21 Unknown COMPLETE BLOOD COUNT 9960469 Navarro Auto 10.9 % 1 Unknown COMPLETE BLOOD COUNT 8054786 RDW 14.4 % 1 Unknown COMPLETE BLOOD COUNT [id number] Eos Auto 2.8 % 1 Unknown COMPLETE BLOOD COUNT 3229694 Baso Auto 0.7 % 1 Unknown COMPLETE BLOOD COUNT [id number] Neutrophil Abs 3.50 10e9/L Unknown COMPLETE BLOOD COUNT [id number] Lymphocyte Abs 1.73 10e9/L Unknown COMPLETE BLOOD COUNT [id number] Monocyte Abs 0.66 10e9/L 01/22 Unknown COMPLETE BLOOD COUNT [id number] Eosinophil Abs 0.17 10e9/L Unknown COMPLETE BLOOD COUNT 8651553 RDW-SD 47.4 fL 1 Unknown COMPLETE BLOOD COUNT [id number] Basophil Abs 0.04 10e9/L 01/22 Unknown GLYCOSYLATED HEMOGLOBIN TEST 49933 Hgb A1c 59242-5 5.9 % 0 01/31/2021 Unknown LIPID GROUP 87302 Cholesterol 151 mg/dL 01/31/2021 Unkno wn LIPID GROUP 68394 Triglyceride 68 mg/dL 01/31/2021 Unkn own LIPID GROUP 63603 HDL CHOLESTEROL 64 mg/dL 01/31/2021 U nknown LIPID GROUP 65085 Chol/HDL Ratio 2.36 ratio 01/31/2021 U nknown LIPID GROUP 95166 NON-HDL Chol 87 mg/dL 01/31/2021 Unkn own LIPID GROUP 99256 LDL Cholesterol 73 mg/dL 01/31/2021 U nknown MEAN GLUC 5257751 Calc Mean Gluc 123 mg/dL 01/31/2021 Unkn own FREE T4 59219 T4 Free 1.11 ng/dL 01/31/2021 Unknown COMPREHENSIVE METABOLIC 50156 AST 16 U/L 2020 Unknown COMPREHENSIVE METABOLIC 37823 ALT 12 U/L 2020 Unknown COMPREHENSIVE METABOLIC 08682 BUN 14 mg/dL 2020 Unknown COMPREHENSIVE METABOLIC 65819 ALBUMIN 4.3 g/dL 2020 Unknown COMPREHENSIVE METABOLIC 92268 CHLORIDE 106 mmol/L 01/31 Unknown COMPREHENSIVE METABOLIC 89068 Bili Total 0.9 mg/dL 01/31 Unknown COMPREHENSIVE METABOLIC 88876 ALK PHOS 96 U/L 2020 Unknown COMPREHENSIVE METABOLIC 54470 SODIUM 144 mmol/L 01/31 Unknown COMPREHENSIVE METABOLIC 80068 CREATININE 0.77 mg/dL 01/22 Unknown COMPREHENSIVE METABOLIC 92205 CALCIUM 9.4 mg/dL 2020 Unknown COMPREHENSIVE METABOLIC 99990 POTASSIUM 4.2 mmol/L 01/31 Unknown COMPREHENSIVE METABOLIC 59852 Total Protein 7.4 g/dL Unknown COMPREHENSIVE METABOLIC 13609 Glucose 94 mg/dL 2020 Unknown COMPREHENSIVE METABOLIC 20413 Bicarbonate 30 mmol/L 01/22 Unknown COMPREHENSIVE METABOLIC 70710 AGAP 8 mmol/L 2020 Unknown GFR CALC 1306326 GFR Non Afr Amr >60 mL/min 01/31/2021 Un known GFR CALC 5777528 GFR Afr Amr >60 mL/min 01/31/2021 Unknow n COMPLETE BLOOD COUNT [id number] WBC 6.9 10e9/L 01/05/20 20 Unknown COMPLETE BLOOD COUNT [id number] RBC 4.20 10e12/L 2019 Unknown COMPLETE BLOOD COUNT 4997502 HEMOGLOBIN 12.2 g/dL 01/05/20 20 Unknown COMPLETE BLOOD COUNT [id number] HEMATOCRIT 39.2 % 01/05/20 20 Unknown COMPLETE BLOOD COUNT [id number] MCV 93.3 fL 0 Unknown COMPLETE BLOOD COUNT 2766824 MCH 29.0 pg 0 Unknown COMPLETE BLOOD COUNT 7125956 MCHC 31.1 g/dL 0 Unknown COMPLETE BLOOD COUNT 8120160 PLATELET COUNT 272 10e9/L Unknown COMPLETE BLOOD COUNT 8307298 Mean Plt Volume 11.0 fL Unknown COMPLETE BLOOD COUNT 6887869 Neut Auto 61.4 % 0 Unknown COMPLETE BLOOD COUNT 5302914 Lymph Auto 22.4 % 01/05/20 20 Unknown COMPLETE BLOOD COUNT [id number] Navarro Auto 11.7 % 0 Unknown COMPLETE BLOOD COUNT 8163883 RDW 14.6 % 0 Unknown COMPLETE BLOOD COUNT 5112029 Eos Auto 3.6 % 0 Unknown COMPLETE BLOOD COUNT 4259229 Baso Auto 0.9 % 0 Unknown COMPLETE BLOOD COUNT [id number] Neutrophil Abs 4.24 10e9/L Unknown COMPLETE BLOOD COUNT 4218713 Lymphocyte Abs 1.55 10e9/L Unknown COMPLETE BLOOD COUNT [id number] Monocyte Abs 0.81 10e9/L 12/23 Unknown COMPLETE BLOOD COUNT [id number] Eosinophil Abs 0.25 10e9/L Unknown COMPLETE BLOOD COUNT 6279968 RDW-SD 48.2 fL 0 Unknown COMPLETE BLOOD COUNT 8501951 Basophil Abs 0.06 10e9/L 12/23 Unknown COMPREHENSIVE METABOLIC 50578 AST 17 U/L 2019 Unknown COMPREHENSIVE METABOLIC 60546 ALT 12 U/L 2019 Unknown COMPREHENSIVE METABOLIC 36189 BUN 18 mg/dL 2019 Unknown COMPREHENSIVE METABOLIC 78520 ALBUMIN 4.5 g/dL 2019 Unknown COMPREHENSIVE METABOLIC 30004 CHLORIDE 101 mmol/L 01/04 Unknown COMPREHENSIVE METABOLIC 73278 Bili Total 0.8 mg/dL 01/04 Unknown COMPREHENSIVE METABOLIC 74199 ALK PHOS 76 U/L 2019 Unknown COMPREHENSIVE METABOLIC 60600 SODIUM 141 mmol/L 01/04 Unknown COMPREHENSIVE METABOLIC 43913 CREATININE 1.02 mg/dL 12/23 Unknown COMPREHENSIVE METABOLIC 88565 CALCIUM 9.5 mg/dL 2019 Unknown COMPREHENSIVE METABOLIC 07092 POTASSIUM 3.9 mmol/L 01/04 Unknown COMPREHENSIVE METABOLIC 73635 Total Protein 7.4 g/dL Unknown COMPREHENSIVE METABOLIC 58519 Glucose 89 mg/dL 2019 Unknown COMPREHENSIVE METABOLIC 83305 Bicarbonate 28 mmol/L 12/23 Unknown COMPREHENSIVE METABOLIC 58570 AGAP 12 mmol/L 2019 Unknown LIPASE 05807 Lipase Lvl 34 IU/L 01/05/2020 Unknown THYROID STIMULATING HORMONE 87167 TSH 3.767 uIU/mL 01/05/2020 Unknown AMYLASE 62335 Amylase Lvl 60 IU/L 01/05/2020 Unknown GFR CALC 5001380 GFR Non Afr Amr 52 mL/min 01/05/2020 Unk nown GFR CALC 1124789 GFR Afr Amr >60 mL/min 01/05/2020 Unknow n FREE T4 51121 T4 Free 1.11 ng/dL 01/05/2020 Unknown GFR CALC 0731051 GFR Non Afr Amr 59 mL/min 12/05/2019 Unk nown GFR CALC 4466849 GFR Afr Amr >60 mL/min 12/05/2019 Unknow n COMPREHENSIVE METABOLIC 92721 AST 15 U/L 2019 Unknown COMPREHENSIVE METABOLIC 67422 ALT 12 U/L 2019 Unknown COMPREHENSIVE METABOLIC 44039 BUN 19 mg/dL 2019 Unknown COMPREHENSIVE METABOLIC 28394 ALBUMIN 4.2 g/dL 2019 Unknown COMPREHENSIVE METABOLIC 56579 CHLORIDE 104 mmol/L 12/04 Unknown COMPREHENSIVE METABOLIC 58281 Bili Total 1.0 mg/dL 12/04 Unknown COMPREHENSIVE METABOLIC 43192 ALK PHOS 78 U/L 2019 Unknown COMPREHENSIVE METABOLIC 25505 SODIUM 145 mmol/L 12/04 Unknown COMPREHENSIVE METABOLIC 68751 CREATININE 0.91 mg/dL 11/22 Unknown COMPREHENSIVE METABOLIC 01712 CALCIUM 9.3 mg/dL 2019 Unknown COMPREHENSIVE METABOLIC 70198 POTASSIUM 3.6 mmol/L 12/04 Unknown COMPREHENSIVE METABOLIC 28483 Total Protein 7.0 g/dL Unknown COMPREHENSIVE METABOLIC 60900 Glucose 96 mg/dL 2019 Unknown COMPREHENSIVE METABOLIC 07312 Bicarbonate 28 mmol/L 11/22 Unknown COMPREHENSIVE METABOLIC 48075 AGAP 13 mmol/L 2019 Unknown COMPREHENSIVE METABOLIC 71260 AST 15 U/L 2019 Unknown COMPREHENSIVE METABOLIC 17683 ALT 11 U/L 2019 Unknown COMPREHENSIVE METABOLIC 56680 BUN 14 mg/dL 2019 Unknown COMPREHENSIVE METABOLIC 90062 ALBUMIN 4.3 g/dL 2019 Unknown COMPREHENSIVE METABOLIC 90493 CHLORIDE 106 mmol/L 11/05 Unknown COMPREHENSIVE METABOLIC 39896 Bili Total 0.7 mg/dL 11/05 Unknown COMPREHENSIVE METABOLIC 54343 ALK PHOS 80 U/L 2019 Unknown COMPREHENSIVE METABOLIC 14077 SODIUM 145 mmol/L 11/05 Unknown COMPREHENSIVE METABOLIC 02766 CREATININE 0.97 mg/dL 10/25 Unknown COMPREHENSIVE METABOLIC 29263 CALCIUM 9.5 mg/dL 2019 Unknown COMPREHENSIVE METABOLIC 20194 POTASSIUM 3.9 mmol/L 11/05 Unknown COMPREHENSIVE METABOLIC 36573 Total Protein 7.0 g/dL Unknown COMPREHENSIVE METABOLIC 94188 Glucose 103 mg/dL 2019 Unknown COMPREHENSIVE METABOLIC 41547 Bicarbonate 29 mmol/L 10/25 Unknown COMPREHENSIVE METABOLIC 15989 AGAP 10 mmol/L 2019 Unknown GFR CALC 4387027 GFR Non Afr Amr 55 mL/min 11/05/2019 Unk nown GFR CALC 2348413 GFR Afr Amr >60 mL/min 11/05/2019 Unknow n FREE T4 30289 T4 Free 1.34 ng/dL 10/21/2019 Unknown COMPLETE BLOOD COUNT 1878262 WBC 7.2 10e9/L 10/21/19 20 Unknown COMPLETE BLOOD COUNT [id number] RBC 4.17 10e12/L 2019 Unknown COMPLETE BLOOD COUNT 7066930 HEMOGLOBIN 12.1 g/dL 10/21/19 20 Unknown COMPLETE BLOOD COUNT [id number] HEMATOCRIT 39.0 % 10/21/19 20 Unknown COMPLETE BLOOD COUNT 6336582 MCV 93.5 fL 0 Unknown COMPLETE BLOOD COUNT 4110840 MCH 29.0 pg 0 Unknown COMPLETE BLOOD COUNT 2955198 MCHC 31.0 g/dL 0 Unknown COMPLETE BLOOD COUNT 9987688 PLATELET COUNT 239 10e9/L Unknown COMPLETE BLOOD COUNT 1144257 Mean Plt Volume 11.7 fL Unknown COMPLETE BLOOD COUNT 5941700 Neut Auto 63.7 % 0 Unknown COMPLETE BLOOD COUNT 5795901 Lymph Auto 21.0 % 10/21/19 20 Unknown COMPLETE BLOOD COUNT 5930250 Navarro Auto 11.1 % 0 Unknown COMPLETE BLOOD COUNT 0879523 RDW 13.6 % 0 Unknown COMPLETE BLOOD COUNT 1978052 Eos Auto 3.6 % 0 Unknown COMPLETE BLOOD COUNT 4994370 Baso Auto 0.6 % 0 Unknown COMPLETE BLOOD COUNT 0569127 Neutrophil Abs 4.59 10e9/L Unknown COMPLETE BLOOD COUNT 3261276 Lymphocyte Abs 1.51 10e9/L Unknown COMPLETE BLOOD COUNT 8402928 Monocyte Abs 0.80 10e9/L 09/25 Unknown COMPLETE BLOOD COUNT 8792994 Eosinophil Abs 0.26 10e9/L Unknown COMPLETE BLOOD COUNT 4267549 RDW-SD 45.1 fL 0 Unknown COMPLETE BLOOD COUNT [id number] Basophil Abs 0.04 10e9/L 09/25 Unknown GFR CALC 5121050 GFR Non Afr Amr 42 mL/min 10/21/2019 Unk nown GFR CALC 4264888 GFR Afr Amr 50 mL/min 10/21/2019 Unknown COMPREHENSIVE METABOLIC 87994 AST 16 U/L 2019 Unknown COMPREHENSIVE METABOLIC 20770 ALT 10 U/L 2019 Unknown COMPREHENSIVE METABOLIC 09751 BUN 20 mg/dL 2019 Unknown COMPREHENSIVE METABOLIC 26209 ALBUMIN 4.4 g/dL 2019 Unknown COMPREHENSIVE METABOLIC 93786 CHLORIDE 102 mmol/L 10/21 Unknown COMPREHENSIVE METABOLIC 62191 Bili Total 0.8 mg/dL 10/21 Unknown COMPREHENSIVE METABOLIC 01465 ALK PHOS 85 U/L 2019 Unknown COMPREHENSIVE METABOLIC 30063 SODIUM 144 mmol/L 10/21 Unknown COMPREHENSIVE METABOLIC 74551 CREATININE 1.24 mg/dL 09/25 Unknown COMPREHENSIVE METABOLIC 53632 CALCIUM 9.8 mg/dL 2019 Unknown COMPREHENSIVE METABOLIC 76204 POTASSIUM 4.2 mmol/L 10/21 Unknown COMPREHENSIVE METABOLIC 53894 Total Protein 7.3 g/dL Unknown COMPREHENSIVE METABOLIC 15852 Glucose 98 mg/dL 2019 Unknown COMPREHENSIVE METABOLIC 18142 Bicarbonate 31 mmol/L 09/25 Unknown COMPREHENSIVE METABOLIC 95214 AGAP 11 mmol/L 2019 Unknown THYROID STIMULATING HORMONE 39101 TSH 2.693 uIU/mL 10/21/2019 Unknown LIPID GROUP 66202 Cholesterol 142 mg/dL 10/21/2019 Unkno wn LIPID GROUP 97463 Triglyceride 120 mg/dL 10/21/2019 Unkn own LIPID GROUP 53241 HDL CHOLESTEROL 54 mg/dL 10/21/2019 U nknown LIPID GROUP 96841 Chol/HDL Ratio 2.63 ratio 10/21/2019 U nknown LIPID GROUP 10705 NON-HDL Chol 88 mg/dL 10/21/2019 Unkn own LIPID GROUP 91809 LDL Cholesterol 64 mg/dL 10/21/2019 U nknown GFR CALC [id number] GFR Non Afr Amr >60 mL/min 04/04/2019 Un known GFR CALC [id number] GFR Afr Amr >60 mL/min 04/04/2019 Unknow n COMPLETE BLOOD COUNT [id number] WBC 5.9 10e9/L 04/04/20 19 Unknown COMPLETE BLOOD COUNT [id number] RBC 4.29 10e12/L 2018 Unknown COMPLETE BLOOD COUNT [id number] HEMOGLOBIN 12.3 g/dL 04/04/20 19 Unknown COMPLETE BLOOD COUNT [id number] HEMATOCRIT 39.2 % 04/04/20 19 Unknown COMPLETE BLOOD COUNT [id number] MCV 91.4 fL 9 Unknown COMPLETE BLOOD COUNT [id number] MCH 28.7 pg 9 Unknown COMPLETE BLOOD COUNT 1694700 MCHC 31.4 g/dL 9 Unknown COMPLETE BLOOD COUNT 5330036 PLATELET COUNT 225 10e9/L 08/2019 Unknown COMPLETE BLOOD COUNT [id number] Mean Plt Volume 11.0 fL 08/2019 Unknown COMPLETE BLOOD COUNT 8298649 Neut Auto 57.2 % 9 Unknown COMPLETE BLOOD COUNT [id number] Lymph Auto 27.3 % 04/04/20 19 Unknown COMPLETE BLOOD COUNT 0720928 [place] Auto 11.2 % 9 Unknown COMPLETE BLOOD COUNT 1722234 RDW 14.3 % 9 Unknown COMPLETE BLOOD COUNT [id number] Eos Auto 3.4 % 9 Unknown COMPLETE BLOOD COUNT 5756366 Baso Auto 0.9 % 9 Unknown COMPLETE BLOOD COUNT 3432653 Neutrophil Abs 3.37 10e9/L Unknown COMPLETE BLOOD COUNT 1984788 Lymphocyte Abs 1.61 10e9/L Unknown COMPLETE BLOOD COUNT [id number] Monocyte Abs 0.66 10e9/L 03/24 Unknown COMPLETE BLOOD COUNT [id number] Eosinophil Abs 0.20 10e9/L Unknown COMPLETE BLOOD COUNT 1400241 RDW-SD 46.6 fL 9 Unknown COMPLETE BLOOD COUNT [id number] Basophil Abs 0.05 10e9/L 03/24 Unknown THYROID STIMULATING HORMONE 55118 TSH 2.068 uIU/mL 04/04/2019 Unknown COMPREHENSIVE METABOLIC 47584 AST 17 U/L 2018 Unknown COMPREHENSIVE METABOLIC 37757 ALT 12 U/L 2018 Unknown COMPREHENSIVE METABOLIC 71917 BUN 17 mg/dL 2018 Unknown COMPREHENSIVE METABOLIC 83660 ALBUMIN 4.3 g/dL 2018 Unknown COMPREHENSIVE METABOLIC 99039 CHLORIDE 107 mmol/L 04/04 Unknown COMPREHENSIVE METABOLIC 06998 Bili Total 1.1 mg/dL 04/04 Unknown COMPREHENSIVE METABOLIC 77320 ALK PHOS 74 U/L 2018 Unknown COMPREHENSIVE METABOLIC 04488 SODIUM 144 mmol/L 04/04 Unknown COMPREHENSIVE METABOLIC 15151 CREATININE 0.70 mg/dL 03/24 Unknown COMPREHENSIVE METABOLIC 48911 CALCIUM 9.5 mg/dL 2018 Unknown COMPREHENSIVE METABOLIC 95460 POTASSIUM 4.1 mmol/L 04/04 Unknown COMPREHENSIVE METABOLIC 33465 Total Protein 6.8 g/dL Unknown COMPREHENSIVE METABOLIC 73928 Glucose 95 mg/dL 2018 Unknown COMPREHENSIVE METABOLIC 00094 Bicarbonate 29 mmol/L 03/24 Unknown COMPREHENSIVE METABOLIC 57730 AGAP 8 mmol/L 2018 Unknown FREE T4 97634 T4 Free 1.09 ng/dL 04/04/2019 Unknown LIPID GROUP 83343 Cholesterol 149 mg/dL 04/04/2019 Unkno wn LIPID GROUP 45838 Triglyceride 70 mg/dL 04/04/2019 Unkn own LIPID GROUP 43671 HDL CHOLESTEROL 62 mg/dL 04/04/2019 U nknown LIPID GROUP 82643 Chol/HDL Ratio 2.40 ratio 04/04/2019 U nknown LIPID GROUP 01832 NON-HDL Chol 87 mg/dL 04/04/2019 Unkn own LIPID GROUP 68178 LDL Cholesterol 73 mg/dL 04/04/2019 U nknown THYROID STIMULATING HORMONE 96183 TSH 3.698 uIU/mL 10/08/2018 Unknown FREE T4 38586 T4 Free 1.24 ng/dL 10/08/2018 Unknown GFR CALC 7726778 GFR Non Afr Amr >60 mL/min 10/07/2018 Un known GFR CALC 0564817 GFR Afr Amr >60 mL/min 10/07/2018 Unknow n COMPLETE BLOOD COUNT 6486353 WBC 6.3 10e9/L 10/07/19 19 Unknown COMPLETE BLOOD COUNT [id number] RBC 4.22 10e12/L 2018 Unknown COMPLETE BLOOD COUNT 6725011 HEMOGLOBIN 12.2 g/dL 10/07/19 19 Unknown COMPLETE BLOOD COUNT 4632604 HEMATOCRIT 39.4 % 10/07/19 19 Unknown COMPLETE BLOOD COUNT 0467967 MCV 93.4 fL 9 Unknown COMPLETE BLOOD COUNT 8399177 MCH 28.9 pg 9 Unknown COMPLETE BLOOD COUNT 0247934 MCHC 31.0 g/dL 9 Unknown COMPLETE BLOOD COUNT 1799495 PLATELET COUNT 231 10e9/L Unknown COMPLETE BLOOD COUNT 7856115 Mean Plt Volume 11.2 fL Unknown COMPLETE BLOOD COUNT 1785173 Neut Auto 55.7 % 9 Unknown COMPLETE BLOOD COUNT 8302654 Lymph Auto 30.3 % 10/07/19 19 Unknown COMPLETE BLOOD COUNT 6727424 Navarro Auto 9.6 % 9 Unknown COMPLETE BLOOD COUNT 7380104 RDW 14.0 % 9 Unknown COMPLETE BLOOD COUNT 3915595 Eos Auto 3.5 % 9 Unknown COMPLETE BLOOD COUNT 2480908 Baso Auto 0.9 % 9 Unknown COMPLETE BLOOD COUNT 1725870 Neutrophil Abs 3.51 10e9/L Unknown COMPLETE BLOOD COUNT 6629860 Lymphocyte Abs 1.91 10e9/L Unknown COMPLETE BLOOD COUNT 4943951 Monocyte Abs 0.60 10e9/L 09/24 Unknown COMPLETE BLOOD COUNT 2792489 Eosinophil Abs 0.22 10e9/L Unknown COMPLETE BLOOD COUNT 5914538 RDW-SD 46.1 fL 9 Unknown COMPLETE BLOOD COUNT 3157784 Basophil Abs 0.06 10e9/L 09/24 Unknown COMPREHENSIVE METABOLIC 25545 AST 14 U/L 2018 Unknown COMPREHENSIVE METABOLIC 56656 ALT 10 U/L 2018 Unknown COMPREHENSIVE METABOLIC 08190 BUN 21 mg/dL 2018 Unknown COMPREHENSIVE METABOLIC 81910 ALBUMIN 4.4 g/dL 2018 Unknown COMPREHENSIVE METABOLIC 94173 CHLORIDE 105 mmol/L 10/07 Unknown COMPREHENSIVE METABOLIC 97270 Bili Total 0.7 mg/dL 10/07 Unknown COMPREHENSIVE METABOLIC 75295 ALK PHOS 80 U/L 2018 Unknown COMPREHENSIVE METABOLIC 68515 SODIUM 143 mmol/L 10/07 Unknown COMPREHENSIVE METABOLIC 02569 CREATININE 0.67 mg/dL 09/24 Unknown COMPREHENSIVE METABOLIC 88364 CALCIUM 9.3 mg/dL 2018 Unknown COMPREHENSIVE METABOLIC 71980 POTASSIUM 3.8 mmol/L 10/07 Unknown COMPREHENSIVE METABOLIC 56912 Total Protein 7.0 g/dL Unknown COMPREHENSIVE METABOLIC 22859 Glucose 98 mg/dL 2018 Unknown COMPREHENSIVE METABOLIC 64692 Bicarbonate 32 mmol/L 09/24 Unknown COMPREHENSIVE METABOLIC 28007 AGAP 6 mmol/L 2018 Unknown LIPID GROUP 34647 Cholesterol 160 mg/dL 10/07/2018 Unkno wn LIPID GROUP 42400 Triglyceride 101 mg/dL 10/07/2018 Unkn own LIPID GROUP 44115 HDL CHOLESTEROL 63 mg/dL 10/07/2018 U nknown LIPID GROUP 87608 Chol/HDL Ratio 2.54 ratio 10/07/2018 U nknown LIPID GROUP 75344 NON-HDL Chol 97 mg/dL 10/07/2018 Unkn own LIPID GROUP 37446 LDL Cholesterol 77 mg/dL 10/07/2018 U nknown MEAN GLUC 4644576 Calc Mean Gluc 114 mg/dL 10/07/2018 Unkn own GLYCOSYLATED HEMOGLOBIN TEST 04679 Hgb A1c 72854-6 5.6 % 0 10/07/2018 Unknown FREE T4 41143 T4 Free 1.21 ng/dL 02/14/2018 Unknown THYROID STIMULATING HORMONE 87853 TSH 2.977 uIU/mL 02/14/2018 Unknown COMPLETE BLOOD COUNT 8260819 WBC 5.6 10e9/L 02/14/20 18 Unknown COMPLETE BLOOD COUNT 5248384 RBC 4.23 10e12/L 2017 Unknown COMPLETE BLOOD COUNT 4708419 HEMOGLOBIN 12.4 g/dL 02/14/20 18 Unknown COMPLETE BLOOD COUNT 2339512 HEMATOCRIT 39.1 % 02/14/20 18 Unknown COMPLETE BLOOD COUNT 3672743 MCV 92.4 fL 8 Unknown COMPLETE BLOOD COUNT 6445637 MCH 29.3 pg 8 Unknown COMPLETE BLOOD COUNT 1927679 MCHC 31.7 g/dL 8 Unknown COMPLETE BLOOD COUNT 6484150 PLATELET COUNT 268 10e9/L Unknown COMPLETE BLOOD COUNT 1123001 Mean Plt Volume 11.0 fL Unknown COMPLETE BLOOD COUNT 2006160 Neut Auto 52.1 % 8 Unknown COMPLETE BLOOD COUNT 9209779 Lymph Auto 32.0 % 02/14/20 18 Unknown COMPLETE BLOOD COUNT 6871241 Navarro Auto 11.8 % 8 Unknown COMPLETE BLOOD COUNT 7497185 RDW 14.6 % 8 Unknown COMPLETE BLOOD COUNT 9433339 Eos Auto 3.2 % 8 Unknown COMPLETE BLOOD COUNT 7551920 Baso Auto 0.9 % 8 Unknown COMPLETE BLOOD COUNT 4323586 Neutrophil Abs 2.92 10e9/L Unknown COMPLETE BLOOD COUNT 9673384 Lymphocyte Abs 1.79 10e9/L Unknown COMPLETE BLOOD COUNT 1325772 Monocyte Abs 0.66 10e9/L 01/23 Unknown COMPLETE BLOOD COUNT 3732759 Eosinophil Abs 0.18 10e9/L Unknown COMPLETE BLOOD COUNT 9532910 RDW-SD 48.2 fL 8 Unknown COMPLETE BLOOD COUNT 7319109 Basophil Abs 0.05 10e9/L 01/23 Unknown GFR CALC 8024159 GFR Non Afr Amr >60 mL/min 02/13/2018 Un known GFR CALC 2834202 GFR Afr Amr >60 mL/min 02/13/2018 Unknow n COMPREHENSIVE METABOLIC 91770 AST 18 U/L 2017 Unknown COMPREHENSIVE METABOLIC 28023 ALT 13 U/L 2017 Unknown COMPREHENSIVE METABOLIC 20978 BUN 14 mg/dL 2017 Unknown COMPREHENSIVE METABOLIC 18551 ALBUMIN 4.3 g/dL 2017 Unknown COMPREHENSIVE METABOLIC 59526 CHLORIDE 108 mmol/L 02/13 Unknown COMPREHENSIVE METABOLIC 87619 Bili Total 0.8 mg/dL 02/13 Unknown COMPREHENSIVE METABOLIC 60706 ALK PHOS 82 U/L 2017 Unknown COMPREHENSIVE METABOLIC 79806 SODIUM 144 mmol/L 02/13 Unknown COMPREHENSIVE METABOLIC 98812 CREATININE 0.67 mg/dL 01/23 Unknown COMPREHENSIVE METABOLIC 46037 CALCIUM 9.4 mg/dL 2017 Unknown COMPREHENSIVE METABOLIC 75234 POTASSIUM 4.1 mmol/L 02/13 Unknown COMPREHENSIVE METABOLIC 89184 Total Protein 6.9 g/dL Unknown COMPREHENSIVE METABOLIC 05139 Glucose 103 mg/dL 2017 Unknown COMPREHENSIVE METABOLIC 66298 Bicarbonate 27 mmol/L 01/23 Unknown COMPREHENSIVE METABOLIC 38382 AGAP 9 mmol/L 2017 Unknown LIPID GROUP 60058 Cholesterol 169 mg/dL 10/15/2017 Unkno wn LIPID GROUP 36707 Triglyceride 99 mg/dL 10/15/2017 Unkn own LIPID GROUP 24569 HDL CHOLESTEROL 69 10/15/2017 U nknown LIPID GROUP 53524 Chol/HDL Ratio 2.45 ratio 10/15/2017 U nknown LIPID GROUP 03602 NON-HDL Chol 100 mg/dL 10/15/2017 Unkn own LIPID GROUP 64246 LDL Cholesterol 80 mg/dL 10/15/2017 U nknown COMPREHENSIVE METABOLIC 93752 AST 17 U/L 2017 Unknown COMPREHENSIVE METABOLIC 70118 ALT 13 U/L 2017 Unknown COMPREHENSIVE METABOLIC 73365 BUN 22 mg/dL 2017 Unknown COMPREHENSIVE METABOLIC 63581 ALBUMIN 4.5 g/dL 2017 Unknown COMPREHENSIVE METABOLIC 21186 CHLORIDE 99 mmol/L 2017 Unknown COMPREHENSIVE METABOLIC 37136 Bili Total 0.8 mg/dL 10/15 Unknown COMPREHENSIVE METABOLIC 25278 ALK PHOS 78 U/L 2017 Unknown COMPREHENSIVE METABOLIC 97777 SODIUM 150 mmol/L 10/15 Unknown COMPREHENSIVE METABOLIC 74507 CREATININE 0.73 mg/dL 09/25 Unknown COMPREHENSIVE METABOLIC 84964 CALCIUM 9.5 mg/dL 2017 Unknown COMPREHENSIVE METABOLIC 16762 POTASSIUM 4.2 mmol/L 10/15 Unknown COMPREHENSIVE METABOLIC 35660 Total Protein 7.2 g/dL Unknown COMPREHENSIVE METABOLIC 30650 Glucose 96 mg/dL 2017 Unknown COMPREHENSIVE METABOLIC 75345 Bicarbonate 29 mmol/L 09/25 Unknown COMPREHENSIVE METABOLIC 87512 AGAP 22 mmol/L 2017 Unknown GFR CALC 2962582 GFR Non Afr Amr >60 mL/min 10/15/2017 Un known GFR CALC 0131719 GFR Afr Amr >60 mL/min 10/15/2017 Unknow n THYROID STIMULATING HORMONE 18349 TSH 4.502 uIU/mL 10/15/2017 Unknown FREE T4 77497 T4 Free 1.44 ng/dL 10/15/2017 Unknown VITAMIN B 12 16827 VITAMIN B12 698 pg/mL 10/15/2017 Unkn own COMPLETE BLOOD COUNT 1105008 WBC 6.3 10e9/L 10/15/19 18 Unknown COMPLETE BLOOD COUNT 2012963 RBC 4.37 10e12/L 2017 Unknown COMPLETE BLOOD COUNT 0556211 HEMOGLOBIN 12.6 g/dL 10/15/19 18 Unknown COMPLETE BLOOD COUNT 7584996 HEMATOCRIT 40.3 % 10/15/19 18 Unknown COMPLETE BLOOD COUNT 0064554 MCV 92.2 fL 8 Unknown COMPLETE BLOOD COUNT 9112001 MCH 28.8 pg 8 Unknown COMPLETE BLOOD COUNT 2083519 MCHC 31.3 g/dL 8 Unknown COMPLETE BLOOD COUNT 5473731 PLATELET COUNT 256 10e9/L Unknown COMPLETE BLOOD COUNT 3411338 Mean Plt Volume 11.1 fL Unknown COMPLETE BLOOD COUNT 3651449 Neut Auto 54.8 % 8 Unknown COMPLETE BLOOD COUNT 5320222 Lymph Auto 30.5 % 10/15/19 18 Unknown COMPLETE BLOOD COUNT 7282574 Navarro Auto 10.4 % 8 Unknown COMPLETE BLOOD COUNT 5713607 RDW 14.0 % 8 Unknown COMPLETE BLOOD COUNT 2526901 Eos Auto 3.8 % 8 Unknown COMPLETE BLOOD COUNT 8721993 Baso Auto 0.5 % 8 Unknown COMPLETE BLOOD COUNT 4257851 Neutrophil Abs 3.45 10e9/L Unknown COMPLETE BLOOD COUNT 0742678 Lymphocyte Abs 1.92 10e9/L Unknown COMPLETE BLOOD COUNT 2154053 Monocyte Abs 0.66 10e9/L 09/25 Unknown COMPLETE BLOOD COUNT 3735632 Eosinophil Abs 0.24 10e9/L Unknown COMPLETE BLOOD COUNT 4557201 RDW-SD 46.1 fL 8 Unknown COMPLETE BLOOD COUNT 5046058 Basophil Abs 0.03 10e9/L 09/25 Unknown VITAMIN B 12 20627 VITAMIN B12 823 pg/mL 03/30/2017 Unkn own VITAMIN B 12 00102 VITAMIN B12 321 pg/mL 12/18/2016 Unkn own COMPLETE BLOOD COUNT 1966027 WBC 6.8 10e9/L 12/12/19 17 Unknown COMPLETE BLOOD COUNT 8594641 RBC 4.37 10e12/L 2016 Unknown COMPLETE BLOOD COUNT 4276502 HEMOGLOBIN 12.5 g/dL 12/12/19 17 Unknown COMPLETE BLOOD COUNT 7355767 HEMATOCRIT 39.3 % 12/12/19 17 Unknown COMPLETE BLOOD COUNT 0562225 MCV 89.9 fL 7 Unknown COMPLETE BLOOD COUNT 9674551 MCH 28.6 pg 7 Unknown COMPLETE BLOOD COUNT 2023059 MCHC 31.8 g/dL 7 Unknown COMPLETE BLOOD COUNT 1267902 PLATELET COUNT 248 10e9/L Unknown COMPLETE BLOOD COUNT 4332820 Mean Plt Volume 10.9 fL Unknown COMPLETE BLOOD COUNT 5937826 Neut Auto 52.0 % 7 Unknown COMPLETE BLOOD COUNT 5179695 Lymph Auto 33.4 % 12/12/19 17 Unknown COMPLETE BLOOD COUNT 9844387 Navarro Auto 10.1 % 7 Unknown COMPLETE BLOOD COUNT 4894827 RDW 14.6 % 7 Unknown COMPLETE BLOOD COUNT 3428222 Eos Auto 3.8 % 7 Unknown COMPLETE BLOOD COUNT 6776914 Baso Auto 0.7 % 7 Unknown COMPLETE BLOOD COUNT 8969570 Neutrophil Abs 3.54 10e9/L Unknown COMPLETE BLOOD COUNT 2428867 Lymphocyte Abs 2.27 10e9/L Unknown COMPLETE BLOOD COUNT 0472565 Monocyte Abs 0.69 10e9/L 11/23 Unknown COMPLETE BLOOD COUNT 2987643 Eosinophil Abs 0.26 10e9/L Unknown COMPLETE BLOOD COUNT 7954291 RDW-SD 47.4 fL 7 Unknown COMPLETE BLOOD COUNT 3153413 Basophil Abs 0.05 10e9/L 11/23 Unknown COMPREHENSIVE METABOLIC 35947 AST 16 U/L 2016 Unknown COMPREHENSIVE METABOLIC 01883 ALT 12 U/L 2016 Unknown COMPREHENSIVE METABOLIC 38830 BUN 22 mg/dL 2016 Unknown COMPREHENSIVE METABOLIC 94695 ALBUMIN 4.2 g/dL 2016 Unknown COMPREHENSIVE METABOLIC 45573 CHLORIDE 104 mmol/L 12/11 Unknown COMPREHENSIVE METABOLIC 42994 Bili Total 0.7 mg/dL 12/11 Unknown COMPREHENSIVE METABOLIC 61800 ALK PHOS 78 U/L 2016 Unknown COMPREHENSIVE METABOLIC 21641 SODIUM 143 mmol/L 12/11 Unknown COMPREHENSIVE METABOLIC 46260 CREATININE 0.69 mg/dL 11/23 Unknown COMPREHENSIVE METABOLIC 00216 CALCIUM 9.5 mg/dL 2016 Unknown COMPREHENSIVE METABOLIC 55847 POTASSIUM 3.9 mmol/L 12/11 Unknown COMPREHENSIVE METABOLIC 16111 Total Protein 7.1 g/dL Unknown COMPREHENSIVE METABOLIC 71309 Glucose 103 mg/dL 2016 Unknown COMPREHENSIVE METABOLIC 74043 Bicarbonate 30 mmol/L 11/23 Unknown COMPREHENSIVE METABOLIC 21389 AGAP 9 mmol/L 2016 Unknown GFR CALC 0968912 GFR Non Afr Amr >60 mL/min 12/11/2016 Un known GFR CALC 7375489 GFR Afr Amr >60 mL/min 12/11/2016 Unknow n MEAN GLUC 8013830 Calc Mean Gluc 120 mg/dL 12/11/2016 Unkn own LIPID GROUP 77537 Cholesterol 162 mg/dL 12/11/2016 Unkno wn LIPID GROUP 40746 Triglyceride 80 mg/dL 12/11/2016 Unkn own LIPID GROUP 01724 HDL CHOLESTEROL 65 mg/dL 12/11/2016 U nknown LIPID GROUP 65019 Chol/HDL Ratio 2.49 ratio 12/11/2016 U nknown LIPID GROUP 94241 NON-HDL Chol 97 mg/dL 12/11/2016 Unkn own LIPID GROUP 37968 LDL Cholesterol 81 mg/dL 12/11/2016 U nknown FREE T4 43284 T4 Free 1.46 ng/dL 12/11/2016 Unknown THYROID STIMULATING HORMONE 62626 TSH 2.578 uIU/mL 12/11/2016 Unknown GLYCOSYLATED HEMOGLOBIN TEST 03286 Hgb A1c 37085-0 5.8 % 0 12/11/2016 Unknown FREE T4 62677 FREE T4 1.68 NG/DL 05/27/2015 Unknown LIPID GROUP 50777 HDL TEST 67 MG/DL 05/27/2015 Unknown LIPID GROUP 73732 TRIG 92 MG/DL 05/27/2015 Unknown LIPID GROUP 83652 TEST LDL 84 MG/DL 05/27/2015 Unknown LIPID GROUP 07455 CHOL 169 MG/DL 05/27/2015 Unknown LIPID GROUP 33175 RCHOL/HDL 2.52 RATIO 05/27/2015 Unknow n LIPID GROUP 32047 NON-HDL CH 102 MG/DL 05/27/2015 Unknow n GLYCOSYLATED HEMOGLOBIN TEST 94386 A1C HPLC 11626-4 5.9 % 0 05/27/2015 Unknown VITAMIN B 12 67582 VIT B 12 308 PG/ML 05/27/2015 Unknow n GFR CALC 3877933 GFR AA >60 ML/MIN 05/27/2015 Unknown GFR CALC 7103386 GFR NON-AA >60 ML/MIN 05/27/2015 Unknown COMPREHENSIVE METABOLIC 56137 AST 20 U/L 2014 Unknown COMPREHENSIVE METABOLIC 00392 ALT 15 IU/L 2014 Unknown COMPREHENSIVE METABOLIC 84214 BUN 17 MG/DL 2014 Unknown COMPREHENSIVE METABOLIC 80082 ALBUMIN 4.3 GM/DL 2014 Unknown COMPREHENSIVE METABOLIC 27910 CHLORIDE 107 MMOL/L 05/27 Unknown COMPREHENSIVE METABOLIC 76309 BILI TOT 0.9 MG/DL 2014 Unknown COMPREHENSIVE METABOLIC 26124 ALK PHOS 85 U/L 2014 Unknown COMPREHENSIVE METABOLIC 93287 SODIUM 144 MMOL/L 05/27 Unknown COMPREHENSIVE METABOLIC 77373 CREATININE 0.76 MG/DL 11/2014 Unknown COMPREHENSIVE METABOLIC 26487 CALCIUM 9.5 MG/DL 2014 Unknown COMPREHENSIVE METABOLIC 58870 POTASSIUM 4.2 MMOL/L 05/27 Unknown COMPREHENSIVE METABOLIC 31702 PROT TOT 7.1 GM/DL 2014 Unknown COMPREHENSIVE METABOLIC 96857 Glucose 95 MG/DL 2014 Unknown COMPREHENSIVE METABOLIC 28861 BICARB 30 MMOL/L 2014 Unknown COMPREHENSIVE METABOLIC 07252 ANION GAP 7 MEQ/L 2014 Unknown COMPLETE BLOOD COUNT 5691601 WBC 6.5 10e9/L 05/27/20 15 Unknown COMPLETE BLOOD COUNT 3798788 RBC 4.35 10e12/L 2014 Unknown COMPLETE BLOOD COUNT 4067835 HGB 12.4 g/dL 5 Unknown COMPLETE BLOOD COUNT 9401790 HCT DET 39.3 % 5 Unknown COMPLETE BLOOD COUNT 8065406 MCV 90.3 fL 5 Unknown COMPLETE BLOOD COUNT 4829847 MCH 28.5 pg 5 Unknown COMPLETE BLOOD COUNT 3356793 MCHC 31.6 g/dL 5 Unknown COMPLETE BLOOD COUNT 3546915 PLT 245 10e9/L 05/27/20 15 Unknown COMPLETE BLOOD COUNT 9050072 MPV 11.1 fL 5 Unknown COMPLETE BLOOD COUNT 6765739 CRISTI % 53.9 % 5 Unknown COMPLETE BLOOD COUNT 2548841 LY % 30.8 % 5 Unknown COMPLETE BLOOD COUNT 0862708 MON % 11.2 % 5 Unknown COMPLETE BLOOD COUNT 0724343 EOS % 3.2 % 5 Unknown COMPLETE BLOOD COUNT 0465966 BASO % 0.9 % 5 Unknown COMPLETE BLOOD COUNT 3689826 RDW 14.5 % 5 Unknown COMPLETE BLOOD COUNT 5880914 ABS CRISTI 3.50 10e9/L 015 Unknown COMPLETE BLOOD COUNT 5847481 ABS LYMPH 2.00 10e9/L 015 Unknown COMPLETE BLOOD COUNT 1267721 ABS MONO 0.73 10e9/L 015 Unknown COMPLETE BLOOD COUNT 7943812 ABS EOS 0.21 10e9/L 015 Unknown COMPLETE BLOOD COUNT 9902557 ABS BASO 0.06 10e9/L 015 Unknown COMPLETE BLOOD COUNT 7196974 RDW-SD 46.3 fL 5 Unknown THYROID STIMULATING HORMONE 71880 TSH 2.909 uIU/ML 05/27/2015 Unknown IRON 13424 IRON TEST 63 UG/DL 12/15/2014 Unknown COMPLETE BLOOD COUNT 9135286 WBC 6.3 10e9/L 12/16/19 15 Unknown COMPLETE BLOOD COUNT 9200645 RBC 4.37 10e12/L 2014 Unknown COMPLETE BLOOD COUNT 5119798 HGB 12.6 g/dL 5 Unknown COMPLETE BLOOD COUNT 2897800 HCT DET 39.2 % 5 Unknown COMPLETE BLOOD COUNT 4026335 MCV 89.7 fL 5 Unknown COMPLETE BLOOD COUNT 0088917 MCH 28.8 pg 5 Unknown COMPLETE BLOOD COUNT 1763108 MCHC 32.1 g/dL 5 Unknown COMPLETE BLOOD COUNT 6082231 PLT 252 10e9/L 12/16/19 15 Unknown COMPLETE BLOOD COUNT 4234128 MPV 10.8 fL 5 Unknown COMPLETE BLOOD COUNT 2304027 CRISTI % 60.5 % 5 Unknown COMPLETE BLOOD COUNT 2748309 LY % 24.4 % 5 Unknown COMPLETE BLOOD COUNT 8250139 MON % 11.8 % 5 Unknown COMPLETE BLOOD COUNT 1759751 EOS % 2.7 % 5 Unknown COMPLETE BLOOD COUNT 1895394 BASO % 0.6 % 5 Unknown COMPLETE BLOOD COUNT 7282912 RDW 14.0 % 5 Unknown COMPLETE BLOOD COUNT 3313843 ABS CRISTI 3.81 10e9/L 015 Unknown COMPLETE BLOOD COUNT 7084880 ABS LYMPH 1.54 10e9/L 015 Unknown COMPLETE BLOOD COUNT 2175457 ABS MONO 0.74 10e9/L 015 Unknown COMPLETE BLOOD COUNT 4794272 ABS EOS 0.17 10e9/L 015 Unknown COMPLETE BLOOD COUNT 3987886 ABS BASO 0.04 10e9/L 015 Unknown COMPLETE BLOOD COUNT 6592498 RDW-SD 44.6 fL 5 Unknown GFR CALC 3902189 GFR AA >60 ML/MIN 11/26/2014 Unknown GFR CALC 8428799 GFR NON-AA >60 ML/MIN 11/26/2014 Unknown COMPREHENSIVE METABOLIC 08450 AST 16 U/L 2014 Unknown COMPREHENSIVE METABOLIC 89583 ALT 15 IU/L 2014 Unknown COMPREHENSIVE METABOLIC 86886 BUN 21 MG/DL 2014 Unknown COMPREHENSIVE METABOLIC 57622 ALBUMIN 4.4 GM/DL 2014 Unknown COMPREHENSIVE METABOLIC 47641 CHLORIDE 106 MMOL/L 11/26 Unknown COMPREHENSIVE METABOLIC 15210 BILI TOT 0.9 MG/DL 2014 Unknown COMPREHENSIVE METABOLIC 48484 ALK PHOS 83 U/L 2014 Unknown COMPREHENSIVE METABOLIC 08760 SODIUM 141 MMOL/L 11/26 Unknown COMPREHENSIVE METABOLIC 97854 CREATININE 0.68 MG/DL 01/2015 Unknown COMPREHENSIVE METABOLIC 65415 CALCIUM 9.4 MG/DL 2014 Unknown COMPREHENSIVE METABOLIC 09891 POTASSIUM 3.8 MMOL/L 11/26 Unknown COMPREHENSIVE METABOLIC 99834 PROT TOT 7.2 GM/DL 2014 Unknown COMPREHENSIVE METABOLIC 99944 Glucose 100 MG/DL 2014 Unknown COMPREHENSIVE METABOLIC 42641 BICARB 29 MMOL/L 2014 Unknown COMPREHENSIVE METABOLIC 91830 ANION GAP 6 MEQ/L 2014 Unknown LIPID GROUP 48900 HDL TEST 72 MG/DL 11/26/2014 Unknown LIPID GROUP 58745 TRIG 101 MG/DL 11/26/2014 Unknown LIPID GROUP 52106 TEST LDL 82 MG/DL 11/26/2014 Unknown LIPID GROUP 17002 CHOL 174 MG/DL 11/26/2014 Unknown LIPID GROUP 82308 RCHOL/HDL 2.42 RATIO 11/26/2014 Unknow n LIPID GROUP 52840 NON-HDL CH 102 MG/DL 11/26/2014 Unknow n GFR CALC 4717117 GFR AA >60 ML/MIN 08/14/2014 Unknown GFR CALC 6850761 GFR NON-AA >60 ML/MIN 08/14/2014 Unknown THYROID STIMULATING HORMONE 10809 TSH 2.261 uIU/ML 08/14/2014 Unknown COMPLETE BLOOD COUNT 1551402 WBC 5.8 10e9/L 08/14/20 14 Unknown COMPLETE BLOOD COUNT 8116241 RBC 4.33 10e12/L 2013 Unknown COMPLETE BLOOD COUNT 7933881 HGB 12.5 g/dL 4 Unknown COMPLETE BLOOD COUNT 1880374 HCT DET 39.2 % 4 Unknown COMPLETE BLOOD COUNT 2501919 MCV 90.5 fL 4 Unknown COMPLETE BLOOD COUNT 8121602 MCH 28.9 pg 4 Unknown COMPLETE BLOOD COUNT 3471118 MCHC 31.9 g/dL 4 Unknown COMPLETE BLOOD COUNT 4268085 PLT 260 10e9/L 08/14/20 14 Unknown COMPLETE BLOOD COUNT 2842128 MPV 10.9 fL 4 Unknown COMPLETE BLOOD COUNT 0176452 CRISTI % 52.9 % 4 Unknown COMPLETE BLOOD COUNT 7156490 LY % 31.0 % 4 Unknown COMPLETE BLOOD COUNT 4183944 MON % 11.3 % 4 Unknown COMPLETE BLOOD COUNT 9884209 EOS % 3.6 % 4 Unknown COMPLETE BLOOD COUNT 3989933 BASO % 1.2 % 4 Unknown COMPLETE BLOOD COUNT 1236928 RDW 13.9 % 4 Unknown COMPLETE BLOOD COUNT 7126594 ABS CRISTI 3.07 10e9/L 014 Unknown COMPLETE BLOOD COUNT 1651950 ABS LYMPH 1.80 10e9/L 014 Unknown COMPLETE BLOOD COUNT 5017316 ABS MONO 0.66 10e9/L 014 Unknown COMPLETE BLOOD COUNT 5964792 ABS EOS 0.21 10e9/L 014 Unknown COMPLETE BLOOD COUNT 7653757 ABS BASO 0.07 10e9/L 014 Unknown COMPLETE BLOOD COUNT 4157943 RDW-SD 44.8 fL 4 Unknown COMPREHENSIVE METABOLIC 18072 AST 15 U/L 2013 Unknown COMPREHENSIVE METABOLIC 56515 ALT 13 IU/L 2013 Unknown COMPREHENSIVE METABOLIC 71778 BUN 18 MG/DL 2013 Unknown COMPREHENSIVE METABOLIC 62441 ALBUMIN 4.4 GM/DL 2013 Unknown COMPREHENSIVE METABOLIC 43759 CHLORIDE 105 MMOL/L 08/14 Unknown COMPREHENSIVE METABOLIC 53589 BILI TOT 1.0 MG/DL 2013 Unknown COMPREHENSIVE METABOLIC 11923 ALK PHOS 88 U/L 2013 Unknown COMPREHENSIVE METABOLIC 56278 SODIUM 143 MMOL/L 08/14 Unknown COMPREHENSIVE METABOLIC 00034 CREATININE 0.70 MG/DL 07/26 Unknown COMPREHENSIVE METABOLIC 12261 CALCIUM 9.6 MG/DL 2013 Unknown COMPREHENSIVE METABOLIC 79784 POTASSIUM 3.9 MMOL/L 08/14 Unknown COMPREHENSIVE METABOLIC 05473 PROT TOT 7.0 GM/DL 2013 Unknown COMPREHENSIVE METABOLIC 63484 Glucose 100 MG/DL 2013 Unknown COMPREHENSIVE METABOLIC 50388 BICARB 31 MMOL/L 2013 Unknown COMPREHENSIVE METABOLIC 92130 ANION GAP 7 MEQ/L 2013 Unknown FREE T4 07208 FREE T4 1.59 NG/DL 08/14/2014 Unknown LIPID GROUP 27227 HDL TEST 66 MG/DL 08/14/2014 Unknown LIPID GROUP 47968 TRIG 106 MG/DL 08/14/2014 Unknown LIPID GROUP 22399 TEST LDL 152 MG/DL 08/14/2014 Unknown LIPID GROUP 58472 CHOL 239 MG/DL 08/14/2014 Unknown LIPID GROUP 48645 RCHOL/HDL 3.62 RATIO 08/14/2014 Unknow n LIPID GROUP 34380 NON-HDL CH 173 MG/DL 08/14/2014 Unknow n COMPREHENSIVE METABOLIC 32121 AST 16 U/L 2013 Unknown COMPREHENSIVE METABOLIC 40278 ALT 13 IU/L 2013 Unknown COMPREHENSIVE METABOLIC 51154 BUN 20 MG/DL 2013 Unknown COMPREHENSIVE METABOLIC 52734 ALBUMIN 4.4 GM/DL 2013 Unknown COMPREHENSIVE METABOLIC 48090 CHLORIDE 104 MMOL/L 02/04 Unknown COMPREHENSIVE METABOLIC 14499 BILI TOT 0.8 MG/DL 2013 Unknown COMPREHENSIVE METABOLIC 71526 ALK PHOS 79 U/L 2013 Unknown COMPREHENSIVE METABOLIC 06081 SODIUM 141 MMOL/L 02/04 Unknown COMPREHENSIVE METABOLIC 67787 CREATININE 0.73 MG/DL 01/22 Unknown COMPREHENSIVE METABOLIC 34794 CALCIUM 9.6 MG/DL 2013 Unknown COMPREHENSIVE METABOLIC 25481 POTASSIUM 4.0 MMOL/L 02/04 Unknown COMPREHENSIVE METABOLIC 07255 PROT TOT 7.2 GM/DL 2013 Unknown COMPREHENSIVE METABOLIC 37434 Glucose 96 MG/DL 2013 Unknown COMPREHENSIVE METABOLIC 24064 BICARB 31 MMOL/L 2013 Unknown COMPREHENSIVE METABOLIC 20376 ANION GAP 6 MEQ/L 2013 Unknown GFR CALC 0533087 GFR AA >60 ML/MIN 02/04/2014 Unknown GFR CALC 8032891 GFR NON-AA >60 ML/MIN 02/04/2014 Unknown FREE T4 96636 FREE T4 1.59 NG/DL 02/04/2014 Unknown COMPLETE BLOOD COUNT 3737619 WBC 5.9 10e9/L 02/05/20 14 Unknown COMPLETE BLOOD COUNT 7587158 RBC 4.37 10e12/L 2013 Unknown COMPLETE BLOOD COUNT 0578517 HGB 12.6 g/dL 4 Unknown COMPLETE BLOOD COUNT 1699711 HCT DET 39.0 % 4 Unknown COMPLETE BLOOD COUNT 0744571 MCV 89.2 fL 4 Unknown COMPLETE BLOOD COUNT 6118554 MCH 28.8 pg 4 Unknown COMPLETE BLOOD COUNT 2548160 MCHC 32.3 g/dL 4 Unknown COMPLETE BLOOD COUNT 9992376 PLT 265 10e9/L 02/05/20 14 Unknown COMPLETE BLOOD COUNT [id number] MPV 10.8 fL 4 Unknown COMPLETE BLOOD COUNT [id number] CRISTI % 55.5 % 4 Unknown COMPLETE BLOOD COUNT [id number] LY % 30.8 % 4 Unknown COMPLETE BLOOD COUNT [id number] MON % 10.0 % 4 Unknown COMPLETE BLOOD COUNT [id number] EOS % 2.7 % 4 Unknown COMPLETE BLOOD COUNT [id number] BASO % 1.0 % 4 Unknown COMPLETE BLOOD COUNT [id number] RDW 14.2 % 4 Unknown COMPLETE BLOOD COUNT [id number] ABS CRISTI 3.27 10e9/L 014 Unknown COMPLETE BLOOD COUNT [id number] ABS LYMPH 1.82 10e9/L 014 Unknown COMPLETE BLOOD COUNT [id number] ABS MONO 0.59 10e9/L 014 Unknown COMPLETE BLOOD COUNT [id number] ABS EOS 0.16 10e9/L 014 Unknown COMPLETE BLOOD COUNT [id number] ABS BASO 0.06 10e9/L 014 Unknown COMPLETE BLOOD COUNT [id number] RDW-SD 45.2 fL 4 Unknown LIPID GROUP [id number] HDL TEST 69 MG/DL 02/04/2014 Unknown LIPID GROUP 97222 TRIG 121 MG/DL 02/04/2014 Unknown LIPID GROUP 28933 TEST LDL 144 MG/DL 02/04/2014 Unknown LIPID GROUP 09603 CHOL 237 MG/DL 02/04/2014 Unknown LIPID GROUP 11007 RCHOL/HDL 3.43 RATIO 02/04/2014 Unknow n THYROID STIMULATING HORMONE 39835 TSH 2.310 uIU/ML 02/04/2014 Unknown THYROID STIMULATING HORMONE 07345 TSH 2.429 uIU/ML 03/18/2012 Unknown COMPREHENSIVE METABOLIC 03003 AST 17 U/L 2011 Unknown COMPREHENSIVE METABOLIC 89145 ALT 15 IU/L 2011 Unknown COMPREHENSIVE METABOLIC 13213 BUN 17 MG/DL 2011 Unknown COMPREHENSIVE METABOLIC 56099 ALBUMIN 4.1 GM/DL 2011 Unknown COMPREHENSIVE METABOLIC 55069 CHLORIDE 108 MMOL/L 03/18 Unknown COMPREHENSIVE METABOLIC 57177 BILI TOT 0.7 MG/DL 2011 Unknown COMPREHENSIVE METABOLIC 89164 ALK PHOS 79 U/L 2011 Unknown COMPREHENSIVE METABOLIC 40080 SODIUM 144 MMOL/L 03/18 Unknown COMPREHENSIVE METABOLIC 25135 CREATININE 0.68 MG/DL 02/23 Unknown COMPREHENSIVE METABOLIC 51890 CALCIUM 9.0 MG/DL 2011 Unknown COMPREHENSIVE METABOLIC 17714 POTASSIUM 3.7 MMOL/L 03/18 Unknown COMPREHENSIVE METABOLIC 09485 PROT TOT 6.6 GM/DL 2011 Unknown COMPREHENSIVE METABOLIC 60888 Glucose 99 MG/DL 2011 Unknown COMPREHENSIVE METABOLIC 62502 BICARB 28 MMOL/L 2011 Unknown COMPREHENSIVE METABOLIC 93269 ANION GAP 8 MEQ/L 2011 Unknown LIPID GROUP 25817 HDL TEST 65 MG/DL 03/18/2012 Unknown LIPID GROUP 10334 TRIG 86 MG/DL 03/18/2012 Unknown LIPID GROUP 71602 TEST LDL 153 MG/DL 03/18/2012 Unknown LIPID GROUP 45744 CHOL 235 MG/DL 03/18/2012 Unknown LIPID GROUP 35273 RCHOL/HDL 3.62 RATIO 03/18/2012 Unknow n GFR CALC [id number] GFR AA >60 ML/MIN 03/18/2012 Unknown GFR CALC [id number] GFR NON-AA >60 ML/MIN 03/18/2012 Unknown COMPLETE BLOOD COUNT 01603 WBC 5.1 10e9/L 03/18/20 12 Unknown COMPLETE BLOOD COUNT 27124 RBC 4.32 10e12/L 2011 Unknown COMPLETE BLOOD COUNT 69470 HGB 12.4 g/dL 2 Unknown COMPLETE BLOOD COUNT 94091 HCT DET 38.4 % 2 Unknown COMPLETE BLOOD COUNT 24547 MCV 88.9 fL 2 Unknown COMPLETE BLOOD COUNT 69857 MCH 28.7 pg 2 Unknown COMPLETE BLOOD COUNT 06976 MCHC 32.3 g/dL 2 Unknown COMPLETE BLOOD COUNT 95836 PLT 245 10e9/L 03/18/20 12 Unknown COMPLETE BLOOD COUNT 29949 MPV 10.7 fL 2 Unknown COMPLETE BLOOD COUNT 64177 CRISTI % 52.9 % 2 Unknown COMPLETE BLOOD COUNT 78862 LY % 31.5 % 2 Unknown COMPLETE BLOOD COUNT 98863 MON % 12.3 % 2 Unknown COMPLETE BLOOD COUNT 17373 EOS % 2.9 % 2 Unknown COMPLETE BLOOD COUNT 39410 BASO % 0.4 % 2 Unknown COMPLETE BLOOD COUNT 63641 RDW 13.9 % 2 Unknown COMPLETE BLOOD COUNT 73381 ABS CRISTI 2.70 10e9/L 012 Unknown COMPLETE BLOOD COUNT 11421 ABS LYMPH 1.61 10e9/L 012 Unknown COMPLETE BLOOD COUNT 76635 ABS MONO 0.63 10e9/L 012 Unknown COMPLETE BLOOD COUNT 69563 ABS EOS 0.15 10e9/L 012 Unknown COMPLETE BLOOD COUNT 80389 ABS BASO 0.02 10e9/L 012 Unknown COMPLETE BLOOD COUNT 36156 RDW-SD 44.5 fL 2 Unknown FREE T4 89427 FREE T4 1.50 NG/DL 03/18/2012 Unknown LIPID GROUP 21022 HDL TEST 61 MG/DL 07/13/2011 Unknown LIPID GROUP 60007 TRIG 158 MG/DL 07/13/2011 Unknown LIPID GROUP 20172 TEST LDL 131 MG/DL 07/13/2011 Unknown LIPID GROUP 63872 CHOL 224 MG/DL 07/13/2011 Unknown LIPID GROUP 02177 RCHOL/HDL 3.67 RATIO 07/13/2011 Unknow n COMPREHENSIVE METABOLIC 54360 AST 19 U/L 2010 Unknown COMPREHENSIVE METABOLIC 88952 ALT 17 IU/L 2010 Unknown COMPREHENSIVE METABOLIC 66518 BUN 14 MG/DL 2010 Unknown COMPREHENSIVE METABOLIC 48850 ALBUMIN 4.2 GM/DL 2010 Unknown COMPREHENSIVE METABOLIC 11391 CHLORIDE 105 MMOL/L 07/13 Unknown COMPREHENSIVE METABOLIC 88166 BILI TOT 0.9 MG/DL 2010 Unknown COMPREHENSIVE METABOLIC 16541 ALK PHOS 71 U/L 2010 Unknown COMPREHENSIVE METABOLIC 10011 SODIUM 141 MMOL/L 07/13 Unknown COMPREHENSIVE METABOLIC 80541 CREATININE 0.68 MG/DL 06/25 Unknown COMPREHENSIVE METABOLIC 91183 CALCIUM 9.3 MG/DL 2010 Unknown COMPREHENSIVE METABOLIC 94788 POTASSIUM 3.8 MMOL/L 07/13 Unknown COMPREHENSIVE METABOLIC 00554 PROT TOT 6.5 GM/DL 2010 Unknown COMPREHENSIVE METABOLIC 72819 Glucose 94 MG/DL 2010 Unknown COMPREHENSIVE METABOLIC 93367 BICARB 28 MMOL/L 2010 Unknown COMPREHENSIVE METABOLIC 05543 ANION GAP 8 MEQ/L 2010 Unknown COMPLETE BLOOD COUNT 97420 WBC 5.4 10e9/L 07/13/20 11 Unknown COMPLETE BLOOD COUNT 52280 RBC 4.20 10e12/L 2010 Unknown COMPLETE BLOOD COUNT 13100 HGB 12.4 g/dL 1 Unknown COMPLETE BLOOD COUNT 51225 HCT DET 37.6 % 1 Unknown COMPLETE BLOOD COUNT 49999 MCV 89.5 fL 1 Unknown COMPLETE BLOOD COUNT 49085 MCH 29.5 pg 1 Unknown COMPLETE BLOOD COUNT 18494 MCHC 33.0 g/dL 1 Unknown COMPLETE BLOOD COUNT 74857 PLT 273 10e9/L 07/13/20 11 Unknown COMPLETE BLOOD COUNT 88933 MPV 10.7 fL 1 Unknown COMPLETE BLOOD COUNT 25695 CRISTI % 49.9 % 1 Unknown COMPLETE BLOOD COUNT 17000 LY % 35.9 % 1 Unknown COMPLETE BLOOD COUNT 99094 MON % 10.4 % 1 Unknown COMPLETE BLOOD COUNT 41231 EOS % 2.9 % 1 Unknown COMPLETE BLOOD COUNT 61611 BASO % 0.9 % 1 Unknown COMPLETE BLOOD COUNT 69229 RDW 13.8 % 1 Unknown COMPLETE BLOOD COUNT 81585 ABS CRISTI 2.69 10e9/L 011 Unknown COMPLETE BLOOD COUNT 80329 ABS LYMPH 1.94 10e9/L 011 Unknown COMPLETE BLOOD COUNT 39798 ABS MONO 0.56 10e9/L 011 Unknown COMPLETE BLOOD COUNT 36332 ABS EOS 0.16 10e9/L 011 Unknown COMPLETE BLOOD COUNT 18240 ABS BASO 0.05 10e9/L 011 Unknown COMPLETE BLOOD COUNT 47601 RDW-SD 44.4 fL 1 Unknown GFR CALC [id number] GFR AA >60 ML/MIN 07/13/2011 Unknown GFR CALC 8250963 GFR NON-AA >60 ML/MIN 07/13/2011 Unknown FREE T4 82483 FREE T4 1.36 NG/DL 07/13/2011 Unknown THYROID STIMULATING HORMONE 68479 TSH 4.261 uIU/ML 07/13/2011 Unknown GFR CALC 7659507 GFR AA >60 ML/MIN 03/13/2011 Unknown GFR CALC 7546271 GFR NON-AA >60 ML/MIN 03/13/2011 Unknown LIPID GROUP 27966 HDL TEST 60 MG/DL 03/13/2011 Unknown LIPID GROUP 81197 TRIG 140 MG/DL 03/13/2011 Unknown LIPID GROUP 15168 TEST LDL 122 MG/DL 03/13/2011 Unknown LIPID GROUP 37214 CHOL 210 MG/DL 03/13/2011 Unknown LIPID GROUP 88987 RCHOL/HDL 3.50 RATIO 03/13/2011 Unknow n FREE T4 61788 FREE T4 1.36 NG/DL 03/13/2011 Unknown THYROID STIMULATING HORMONE 78485 TSH 7.688 uIU/ML 03/13/2011 Unknown COMPREHENSIVE METABOLIC 07069 AST 17 U/L 2010 Unknown COMPREHENSIVE METABOLIC 91977 ALT 12 IU/L 2010 Unknown COMPREHENSIVE METABOLIC 39281 BUN 19 MG/DL 2010 Unknown COMPREHENSIVE METABOLIC 84512 ALBUMIN 4.3 GM/DL 2010 Unknown COMPREHENSIVE METABOLIC 32087 CHLORIDE 105 MMOL/L 03/13 Unknown COMPREHENSIVE METABOLIC 62933 BILI TOT 0.6 MG/DL 2010 Unknown COMPREHENSIVE METABOLIC 85534 ALK PHOS 68 U/L 2010 Unknown COMPREHENSIVE METABOLIC 38685 SODIUM 139 MMOL/L 03/13 Unknown COMPREHENSIVE METABOLIC 37853 CREATININE 0.77 MG/DL 02/23 Unknown COMPREHENSIVE METABOLIC 39584 CALCIUM 9.2 MG/DL 2010 Unknown COMPREHENSIVE METABOLIC 02415 POTASSIUM 3.8 MMOL/L 03/13 Unknown COMPREHENSIVE METABOLIC 02699 PROT TOT 6.9 GM/DL 2010 Unknown COMPREHENSIVE METABOLIC 54071 Glucose 97 MG/DL 2010 Unknown COMPREHENSIVE METABOLIC 29759 BICARB 25 MMOL/L 2010 Unknown COMPREHENSIVE METABOLIC 48102 ANION GAP 9 MEQ/L 2010 Unknown FREE T4 21192 FREE T4 1.32 NG/DL 12/16/2010 Unknown COMPLETE BLOOD COUNT 59912 WBC 5.6 10e9/L 12/17/19 11 Unknown COMPLETE BLOOD COUNT 52541 RBC 4.38 10e12/L 2010 Unknown COMPLETE BLOOD COUNT 70162 HGB 12.5 g/dL 1 Unknown COMPLETE BLOOD COUNT 62925 HCT DET 38.7 % 1 Unknown COMPLETE BLOOD COUNT 14199 MCV 88.4 fL 1 Unknown COMPLETE BLOOD COUNT 32992 MCH 28.5 pg 1 Unknown COMPLETE BLOOD COUNT 13455 MCHC 32.3 g/dL 1 Unknown COMPLETE BLOOD COUNT 55374 PLT 249 10e9/L 12/17/19 11 Unknown COMPLETE BLOOD COUNT 68117 MPV 10.5 fL 1 Unknown COMPLETE BLOOD COUNT 83721 CRISTI % 52.8 % 1 Unknown COMPLETE BLOOD COUNT 17231 LY % 33.3 % 1 Unknown COMPLETE BLOOD COUNT 46896 MON % 9.8 % 1 Unknown COMPLETE BLOOD COUNT 22523 EOS % 3.4 % 1 Unknown COMPLETE BLOOD COUNT 27402 BASO % 0.7 % 1 Unknown COMPLETE BLOOD COUNT 02493 RDW 14.2 % 1 Unknown COMPLETE BLOOD COUNT 22292 ABS CRISTI 2.96 10e9/L 011 Unknown COMPLETE BLOOD COUNT 77487 ABS LYMPH 1.86 10e9/L 011 Unknown COMPLETE BLOOD COUNT 77900 ABS MONO 0.55 10e9/L 011 Unknown COMPLETE BLOOD COUNT 35343 ABS EOS 0.19 10e9/L 011 Unknown COMPLETE BLOOD COUNT 91380 ABS BASO 0.04 10e9/L 011 Unknown COMPLETE BLOOD COUNT 26966 RDW-SD 45.1 fL 1 Unknown GFR CALC 7769359 GFR AA >60 ML/MIN 12/16/2010 Unknown GFR CALC 5899283 GFR NON-AA >60 ML/MIN 12/16/2010 Unknown THYROID STIMULATING HORMONE 61952 TSH 7.082 uIU/ML 12/16/2010 Unknown COMPREHENSIVE METABOLIC 26151 AST 21 U/L 2010 Unknown COMPREHENSIVE METABOLIC 36069 ALT 18 IU/L 2010 Unknown COMPREHENSIVE METABOLIC 66485 BUN 22 MG/DL 2010 Unknown COMPREHENSIVE METABOLIC 31811 ALBUMIN 4.6 GM/DL 2010 Unknown COMPREHENSIVE METABOLIC 12889 CHLORIDE 102 MMOL/L 12/16 Unknown COMPREHENSIVE METABOLIC 88866 BILI TOT 0.6 MG/DL 2010 Unknown COMPREHENSIVE METABOLIC 27285 ALK PHOS 72 U/L 2010 Unknown COMPREHENSIVE METABOLIC 84384 SODIUM 140 MMOL/L 12/16 Unknown COMPREHENSIVE METABOLIC 85332 CREATININE 0.73 MG/DL 11/23 Unknown COMPREHENSIVE METABOLIC 31046 CALCIUM 9.4 MG/DL 2010 Unknown COMPREHENSIVE METABOLIC 30319 POTASSIUM 4.2 MMOL/L 12/16 Unknown COMPREHENSIVE METABOLIC 17204 PROT TOT 7.1 GM/DL 2010 Unknown COMPREHENSIVE METABOLIC 69784 Glucose 88 MG/DL 2010 Unknown COMPREHENSIVE METABOLIC 18769 BICARB 30 MMOL/L 2010 Unknown COMPREHENSIVE METABOLIC 38759 ANION GAP 8 MEQ/L 2010 Unknown LIPID GROUP 36190 HDL TEST 66 MG/DL 12/16/2010 Unknown LIPID GROUP 77988 TRIG 154 MG/DL 12/16/2010 Unknown LIPID GROUP 79248 TEST LDL 128 MG/DL 12/16/2010 Unknown LIPID GROUP 63706 CHOL 225 MG/DL 12/16/2010 Unknown LIPID GROUP 98342 RCHOL/HDL 3.41 RATIO 12/16/2010 Unknow n Procedures Procedure Codes Date ROUTINE VENIPUNCTURE CPT-4: 08412 02/28/2022 ASSAY OF FREE THYROXINE CPT-4: 08178 02/28/2022 ASSAY THYROID STIM HORMONE CPT-4: 58538 02/28/2022 COMPREHEN METABOLIC PANEL CPT-4: 75682 02/28/2022 COMPLETE CBC W/AUTO DIFF WBC CPT-4: 11106 02/28/2022 LIPID PANEL CPT-4: 86555 02/28/2022 A1C HPLC CPT-4: 54143 02/28/2022 SARSCOV & INF VIR A&B AG IA CPT-4: 39582 08/09/2021 CLEAR OUTER EAR CANAL CPT-4: 09963 08/09/2021 ROUTINE VENIPUNCTURE CPT-4: 13215 07/20/2021 ASSAY OF FREE THYROXINE CPT-4: 03521 07/20/2021 ASSAY THYROID STIM HORMONE CPT-4: 89593 07/20/2021 COMPREHEN METABOLIC PANEL CPT-4: 20837 07/20/2021 COMPLETE CBC W/AUTO DIFF WBC CPT-4: 05298 07/20/2021 A1C HPLC CPT-4: 65500 07/20/2021 DESTRUCT B9 LESION 1-14 CPT-4: 59165 05/12/2021 THER/PROPH/DIAG INJ SC/IM CPT-4: 49883 03/08/2021 TRIAMCINOLONE ACET INJ NOS CPT-4: J3301 03/08/2021 ROUTINE VENIPUNCTURE CPT-4: 33551 01/31/2021 COMPREHEN METABOLIC PANEL CPT-4: 49010 01/31/2021 COMPLETE CBC W/AUTO DIFF WBC CPT-4: 05291 01/31/2021 LIPID PANEL CPT-4: 37184 01/31/2021 ASSAY OF FREE THYROXINE CPT-4: 60854 01/31/2021 ASSAY THYROID STIM HORMONE CPT-4: 77636 01/31/2021 A1C HPLC CPT-4: 14268 01/31/2021 EXC TR-EXT B9+JOSE G 0.5 CM< CPT-4: 92287 05/19/2020 PPPS, subseq visit CPT-4: G0439 05/11/2020 ROUTINE VENIPUNCTURE CPT-4: 02681 05/05/2020 ASSAY OF FREE THYROXINE CPT-4: 07532 05/05/2020 ASSAY THYROID STIM HORMONE CPT-4: 98493 05/05/2020 COMPREHEN METABOLIC PANEL CPT-4: 37150 05/05/2020 COMPLETE CBC W/AUTO DIFF WBC CPT-4: 24661 05/05/2020 LIPID PANEL CPT-4: 88718 05/05/2020 A1C HPLC CPT-4: 19874 05/05/2020 THER/PROPH/DIAG INJ SC/IM CPT-4: 39544 01/28/2020 TRIAMCINOLONE ACET INJ NOS CPT-4: J3301 01/28/2020 ROUTINE VENIPUNCTURE CPT-4: 58500 01/05/2020 ASSAY OF FREE THYROXINE CPT-4: 98559 01/05/2020 ASSAY THYROID STIM HORMONE CPT-4: 99477 01/05/2020 COMPREHEN METABOLIC PANEL CPT-4: 76549 01/05/2020 COMPLETE CBC W/AUTO DIFF WBC CPT-4: 83667 01/05/2020 ASSAY OF AMYLASE CPT-4: 21248 01/05/2020 ASSAY OF LIPASE CPT-4: 64062 01/05/2020 ROUTINE VENIPUNCTURE CPT-4: 33886 12/05/2019 COMPREHEN METABOLIC PANEL CPT-4: 29859 12/05/2019 ROUTINE VENIPUNCTURE CPT-4: 71910 11/05/2019 COMPREHEN METABOLIC PANEL CPT-4: 24491 11/05/2019 URINALYSIS NONAUTO W/O SCOPE CPT-4: 77182 10/23/2019 URINE CULTURE/ COLONY COUNT CPT-4: 41292 10/23/2019 ROUTINE VENIPUNCTURE CPT-4: 95874 10/21/2019 ASSAY OF FREE THYROXINE CPT-4: 75880 10/21/2019 ASSAY THYROID STIM HORMONE CPT-4: 08208 10/21/2019 COMPREHEN METABOLIC PANEL CPT-4: 11011 10/21/2019 COMPLETE CBC W/AUTO DIFF WBC CPT-4: 25942 10/21/2019 LIPID PANEL CPT-4: 54850 10/21/2019 HYDRATION IV INFUSION INIT CPT-4: 25538 10/20/2019 Removal impacted cerumen using irrigation/lavage, unilateral CPT-4: 66090 10/20/2019 ROUTINE VENIPUNCTURE CPT-4: 56951 04/04/2019 COMPLETE CBC W/AUTO DIFF WBC CPT-4: 47231 04/04/2019 COMPREHEN METABOLIC PANEL CPT-4: 54234 04/04/2019 ASSAY THYROID STIM HORMONE CPT-4: 29012 04/04/2019 ASSAY OF FREE THYROXINE CPT-4: 74346 04/04/2019 LIPID PANEL CPT-4: 08155 04/04/2019 PPPS, subseq visit CPT-4: G0439 11/26/2018 ROUTINE VENIPUNCTURE CPT-4: 16571 10/07/2018 ASSAY THYROID STIM HORMONE CPT-4: 94855 10/07/2018 ASSAY OF FREE THYROXINE CPT-4: 57657 10/07/2018 COMPREHEN METABOLIC PANEL CPT-4: 34095 10/07/2018 COMPLETE CBC W/AUTO DIFF WBC CPT-4: 76760 10/07/2018 LIPID PANEL CPT-4: 72250 10/07/2018 A1C HPLC CPT-4: 00328 10/07/2018 CERUM REMOVAL CPT-4: 98882 06/25/2018 THER/PROPH/DIAG INJ SC/IM CPT-4: 94323 05/03/2018 TRIAMCINOLONE ACET INJ NOS CPT-4: J3301 05/03/2018 Removal impacted cerumen using irrigation/lavage, unilateral CPT-4: 47078 02/19/2018 ROUTINE VENIPUNCTURE CPT-4: 02792 02/13/2018 ASSAY OF FREE THYROXINE CPT-4: 31534 02/13/2018 ASSAY THYROID STIM HORMONE CPT-4: 21491 02/13/2018 COMPREHEN METABOLIC PANEL CPT-4: 19084 02/13/2018 COMPLETE CBC W/AUTO DIFF WBC CPT-4: 44894 02/13/2018 ROUTINE VENIPUNCTURE CPT-4: 20574 10/15/2017 ASSAY OF FREE THYROXINE CPT-4: 71938 10/15/2017 ASSAY THYROID STIM HORMONE CPT-4: 41461 10/15/2017 COMPREHEN METABOLIC PANEL CPT-4: 27732 10/15/2017 COMPLETE CBC W/AUTO DIFF WBC CPT-4: 52657 10/15/2017 LIPID PANEL CPT-4: 45817 10/15/2017 VITAMIN B-12 CPT-4: 45899 10/15/2017 CERUM REMOVAL CPT-4: 07456 07/24/2017 ROUTINE VENIPUNCTURE CPT-4: 90711 03/30/2017 VITAMIN B-12 CPT-4: 39407 03/30/2017 ROUTINE VENIPUNCTURE CPT-4: 07294 12/18/2016 VITAMIN B-12 CPT-4: 12893 12/18/2016 PPPS, subseq visit CPT-4: G0439 12/18/2016 ROUTINE VENIPUNCTURE CPT-4: 60611 12/11/2016 ASSAY OF FREE THYROXINE CPT-4: 56986 12/11/2016 ASSAY THYROID STIM HORMONE CPT-4: 76111 12/11/2016 COMPREHEN METABOLIC PANEL CPT-4: 64252 12/11/2016 COMPLETE CBC W/AUTO DIFF WBC CPT-4: 84506 12/11/2016 LIPID PANEL CPT-4: 37717 12/11/2016 A1C HPLC CPT-4: 61230 12/11/2016 URINALYSIS NONAUTO W/O SCOPE CPT-4: 81172 02/07/2016 ROUTINE VENIPUNCTURE CPT-4: 53210 05/27/2015 ASSAY OF FREE THYROXINE CPT-4: 52110 05/27/2015 ASSAY THYROID STIM HORMONE CPT-4: 28557 05/27/2015 COMPREHEN METABOLIC PANEL CPT-4: 78853 05/27/2015 COMPLETE CBC W/AUTO DIFF WBC CPT-4: 84247 05/27/2015 LIPID PANEL CPT-4: 70965 05/27/2015 VITAMIN B-12 CPT-4: 75758 05/27/2015 A1C HPLC CPT-4: 66076 05/27/2015 PNEUMOCOCCAL VACC 13 LEN IM CPT-4: 01681 05/26/2015 ADMIN PNEUMOCOCCAL VACCINE CPT-4: G0009 05/26/2015 CUR TOBACCO NON-USER CPT-4: G8457 05/26/2015 OCCULT BLOOD FECES CPT-4: 50294 02/19/2015 OCCULT BLOOD FECES CPT-4: 65348 01/20/2015 ROUTINE VENIPUNCTURE CPT-4: 72569 12/15/2014 ASSAY OF IRON CPT-4: 86931 12/15/2014 COMPLETE CBC W/AUTO DIFF WBC CPT-4: 28579 12/15/2014 CERUM REMOVAL CPT-4: 02638 11/30/2014 PRESCRIP TRANSMIT VIA ERX SY CPT-4: G8553 11/30/2014 ROUTINE VENIPUNCTURE CPT-4: 29049 11/26/2014 COMPREHEN METABOLIC PANEL CPT-4: 03363 11/26/2014 LIPID PANEL CPT-4: 84019 11/26/2014 ROUTINE VENIPUNCTURE CPT-4: 87371 08/14/2014 ASSAY OF FREE THYROXINE CPT-4: 58263 08/14/2014 ASSAY THYROID STIM HORMONE CPT-4: 90630 08/14/2014 COMPREHEN METABOLIC PANEL CPT-4: 28218 08/14/2014 COMPLETE CBC W/AUTO DIFF WBC CPT-4: 87928 08/14/2014 LIPID PANEL CPT-4: 91542 08/14/2014 PRESCRIP TRANSMIT VIA ERX SY CPT-4: G8553 07/23/2014 PRESCRIP TRANSMIT VIA ERX SY CPT-4: G8553 03/09/2014 PRESCRIP TRANSMIT VIA ERX SY CPT-4: G8553 02/05/2014 ROUTINE VENIPUNCTURE CPT-4: 58854 02/04/2014 ASSAY OF FREE THYROXINE CPT-4: 18799 02/04/2014 ASSAY THYROID STIM HORMONE CPT-4: 73835 02/04/2014 COMPREHEN METABOLIC PANEL CPT-4: 68416 02/04/2014 COMPLETE CBC W/AUTO DIFF WBC CPT-4: 34388 02/04/2014 LIPID PANEL CPT-4: 52153 02/04/2014 DRAIN/INJECT JOINT/BURSA CPT-4: 59529 04/07/2013 METHYLPREDNISOLONE 40 MG INJ CPT-4: J1030 04/07/2013 TRIAMCINOLONE ACET INJ NOS CPT-4: J3301 04/07/2013 PRESCRIP TRANSMIT VIA ERX SY CPT-4: G8553 04/07/2013 DRAIN/INJECT JOINT/BURSA CPT-4: 02762 10/09/2012 METHYLPREDNISOLONE 40 MG INJ CPT-4: J1030 10/09/2012 TRIAMCINOLONE ACET INJ NOS CPT-4: J3301 10/09/2012 PRESCRIP TRANSMIT VIA ERX SY CPT-4: G8553 03/28/2012 ROUTINE VENIPUNCTURE CPT-4: 21320 03/18/2012 ASSAY OF FREE THYROXINE CPT-4: 22640 03/18/2012 ASSAY THYROID STIM HORMONE CPT-4: 13929 03/18/2012 COMPREHEN METABOLIC PANEL CPT-4: 19894 03/18/2012 COMPLETE CBC W/AUTO DIFF WBC CPT-4: 92730 03/18/2012 LIPID PANEL CPT-4: 08013 03/18/2012 CERUM REMOVAL CPT-4: 85732 2012 OCCULT BLOOD FECES CPT-4: 66987 09/27/2011 CA SCREEN;PELVIC/BREAST EXAM CPT-4: G0101 09/27/2011 OBTAINING SCREEN PAP SMEAR CPT-4: Q0091 09/27/2011 CUR TOBACCO NON-USER CPT-4: G8457 09/13/2011 PRESCRIP TRANSMIT VIA ERX SY CPT-4: G8553 09/13/2011 PRESCRIP TRANSMIT VIA ERX SY CPT-4: G8553 08/07/2011 ROUTINE VENIPUNCTURE CPT-4: 50307 07/13/2011 ASSAY OF FREE THYROXINE CPT-4: 63720 07/13/2011 ASSAY THYROID STIM HORMONE CPT-4: 40200 07/13/2011 COMPREHEN METABOLIC PANEL CPT-4: 00609 07/13/2011 COMPLETE CBC W/AUTO DIFF WBC CPT-4: 63459 07/13/2011 LIPID PANEL CPT-4: 33786 07/13/2011 ROUTINE VENIPUNCTURE CPT-4: 60809 03/13/2011 COMPREHEN METABOLIC PANEL CPT-4: 32510 03/13/2011 LIPID PANEL CPT-4: 19233 03/13/2011 ASSAY THYROID STIM HORMONE CPT-4: 51546 03/13/2011 ASSAY OF FREE THYROXINE CPT-4: 85730 03/13/2011 PRESCRIP TRANSMIT VIA ERX SY CPT-4: G8553 01/04/2011 ROUTINE VENIPUNCTURE CPT-4: 17054 12/16/2010 LIPID PANEL CPT-4: 31472 12/16/2010 COMPLETE CBC W/AUTO DIFF WBC CPT-4: 66264 12/16/2010 COMPREHEN METABOLIC PANEL CPT-4: 60736 12/16/2010 ASSAY OF FREE THYROXINE CPT-4: 60845 12/16/2010 ASSAY THYROID STIM HORMONE CPT-4: 51628 12/16/2010 INJ TRIGGER POINT 1/2 MUSCL CPT-4: 30184 02/14/2010 TRIAMCINOLONE ACET INJ NOS CPT-4: J3301 02/14/2010 METHYLPREDNISOLONE 40 MG INJ CPT-4: J1030 02/14/2010 THER/PROPH/DIAG INJ SC/IM CPT-4: 34699 02/07/2010 KETOROLAC TROMETHAMINE INJ CPT-4: J1885 02/07/2010 ROUTINE VENIPUNCTURE CPT-4: 13540 12/22/2009 Vital Signs Date Vital 06/26/2022 Blood Pressure 1: 132/78 Code: 8480-6 BMI: 25.5 Code: 41687-6 Heart Rate 1: 96 bpm Height: 5'10" Code: 8302-2 SpO2: 98% Temperature: 36.2 (C) / 97.2 (F) Weight: 178 lbs Code: 56121-0 05/22/2022 Blood Pressure 1: 126/82 Code: 8480-6 BMI: 25.5 Code: 52880-6 Heart Rate 1: 104 bpm Height: 5'10" Code: 8302-2 Respiratory Rate: 20 bpm SpO2: 96% Temperature: 36.8 (C) / 98.2 (F) Weight: 178 lbs Code: 10159-4 02/27/2022 Blood Pressure 1: 142/82 Code: 8480-6 BMI: 25.5 Code: 15058-0 Heart Rate 1: 112 bpm Height: 5'10" Code: 8302-2 Respiratory Rate: 20 bpm SpO2: 96% Temperature: 36.8 (C) / 98.3 (F) Weight: 178 lbs Code: 49005-8 11/23/2021 Blood Pressure 1: 136/82 Code: 8480-6 BMI: 25.7 Code: 61797-7 Heart Rate 1: 72 bpm Height: 5'10" Code: 8302-2 Respiratory Rate: 20 bpm SpO2: 98% Temperature: 36.6 (C) / 97.9 (F) Weight: 179 lbs Code: 34577-7 10/12/2021 Blood Pressure 1: 128/92 Code: 8480-6 BMI: 25.5 Code: 85659-5 Heart Rate 1: 68 bpm Height: 5'10" Code: 8302-2 Respiratory Rate: 20 bpm SpO2: 98% Temperature: 36.7 (C) / 98.1 (F) Weight: 178 lbs Code: 34879-9 08/09/2021 Blood Pressure 1: 127/80 Code: 8480-6 Heart Rate 1: 69 bpm Respiratory Rate: 15 bpm SpO2: 98% Temperature: 36.7 (C) / 98.0 (F) We ight: 171 lbs Code: 07484-5 07/28/2021 Blood Pressure 1: 132/78 Code: 8480-6 Heart Rate 1: 76 bpm Respiratory Rate: 20 bpm SpO2: 96% Temperature: 36.8 (C) / 98.2 (F) We ight: 174 lbs Code: 01776-1 05/12/2021 Blood Pressure 1: 142/80 Code: 8480-6 Heart Rate 1: 76 bpm Respiratory Rate: 20 bpm SpO2: 96% Temperature: 36.8 (C) / 98.2 (F) We ight: 173 lbs Code: 19035-1 03/08/2021 Blood Pressure 1: 124/80 Code: 8480-6 Heart Rate 1: 88 bpm Respiratory Rate: 20 bpm SpO2: 98% Temperature: 36.8 (C) / 98.3 (F) We ight: 175 lbs Code: 89940-5 02/03/2021 Blood Pressure 1: 144/84 Code: 8480-6 Heart Rate 1: 68 bpm Respiratory Rate: 20 bpm SpO2: 97% Temperature: 36.7 (C) / 98.1 (F) We ight: 182 lbs Code: 50673-4 01/04/2021 Blood Pressure 1: 152/86 Code: 8480-6 Heart Rate 1: 72 bpm Respiratory Rate: 20 bpm SpO2: 97% Temperature: 36.6 (C) / 97.8 (F) We ight: 182 lbs Code: 83613-6 10/05/2020 Blood Pressure 1: 124/66 Code: 8480-6 He art Rate 1: 65 bpm 09/20/2020 Blood Pressure 1: 134/76 Code: 8480-6 Heart Rate 1: 60 bpm Respiratory Rate: 20 bpm SpO2: 97% Temperature: 36.1 (C) / 97.0 (F) We ight: 187 lbs Code: 35566-9 05/28/2020 Temperature: 36.8 (C) / 98.3 (F) 05/19/2020 Blood Pressure 1: 128/78 Code: 8480-6 Heart Rate 1: 50 bpm Respiratory Rate: 20 bpm SpO2: 98% Temperature: 36.5 (C) / 97.7 (F) 05/11/2020 Blood Pressure 1: 126/80 Code: 8480-6 BMI: 25.4 Code: 50076-6 Heart Rate 1: 60 bpm Height: 5'10" Code: 8302-2 Respiratory Rate: 20 bpm Temperat ure: 36.6 (C) / 97.8 (F) Weight: 177 lbs Code: 47888-2 05/05/2020 Blood Pressure 1: 122/78 Code: 8480-6 [...] 1: 104/66 Code: 8480-6 BMI: 25.4 Code: 45908-2 Heart Rate 1: 56 bpm Height: 5'10" Code: 8302-2 Respiratory Rate: 20 bpm SpO2: 97% Temperature: 36.6 (C) / 97.8 (F) Weight: 177 lbs Code: 89173-5 10/29/2019 Blood Pressure 1: 114/62 Code: 8480-6 Heart Rate 1: 68 bpm Respiratory Rate: 20 bpm SpO2: 99% Temperature: 36.8 (C) / 98.2 (F) 10/20/2019 Blood Pressure 1: 119/74 Code: 8480-6 Heart Rate 1: 57 bpm Respiratory Rate: 16 bpm SpO2: 99% Temperature: 36.9 (C) / 98.4 (F) We ight: 176 lbs Code: 29956-2 07/07/2019 Blood Pressure 1: 126/74 Code: 8480-6 Heart Rate 1: 72 bpm Respiratory Rate: 16 bpm SpO2: 95% Temperature: 36.8 (C) / 98.2 (F) We ight: 179 lbs Code: 44276-4 05/01/2019 Blood Pressure 1: 126/76 Code: 8480-6 Heart Rate 1: 60 bpm Respiratory Rate: 20 bpm SpO2: 97% Temperature: 36.8 (C) / 98.2 (F) 04/15/2019 Blood Pressure 1: 154/94 Code: 8480-6 BMI: 26.0 Code: 38706-5 Heart Rate 1: 60 bpm Height: 5'10" Code: 8302-2 Respiratory Rate: 18 bpm SpO2: 97% Temperature: 36.6 (C) / 97.9 (F) Weight: 181 lbs Code: 59598-5 11/26/2018 Blood Pressure 1: 142/80 Code: 8480-6 BMI: 26.3 Code: 11298-5 Heart Rate 1: 56 bpm Height: 5'10" Code: 8302-2 Respiratory Rate: 20 bpm SpO2: 97% Temperature: 36.9 (C) / 98.4 (F) Weight: 183 lbs Code: 03070-3 08/08/2018 Blood Pressure 1: 126/68 Code: 8480-6 Heart Rate 1: 76 bpm Height: 5'10" Code: 8302-2 Respiratory Rate: 20 bpm SpO2: 97% Temperature: 36 .7 (C) / 98.0 (F) Weight: Code: 48286-4 06/25/2018 Blood Pressure 1: 112/70 Code: 8480-6 BMI: 25.8 Code: 85503-2 Heart Rate 1: 64 bpm Height: 5'10" Code: 8302-2 Respiratory Rate: 20 bpm SpO2: 95% Temperature: 36.9 (C) / 98.4 (F) Weight: 180 lbs Code: 92158-0 05/20/2018 Blood Pressure 1: 132/100 Code: 8480-6 H eart Rate 1: 76 bpm 05/10/2018 Blood Pressure 1: 144/86 Code: 8480-6 Heart Rate 1: 60 bpm Respiratory Rate: 20 bpm SpO2: 97% Temperature: 36.9 (C) / 98.4 (F) We ight: Code: 19021-9 05/03/2018 Blood Pressure 1: 126/92 Code: 8480-6 Bl ood Pressure 2: 147/79 Code: 8480-6 Heart Rate 1: 64 bpm Height: 5'10" Code: 8302-2 Respiratory Rate : 22 bpm SpO2: 98% Temperature: 36.3 (C) / 97.3 (F) Weight: Code: 04922- 7 04/22/2018 Blood Pressure 1: 140/82 Code: 8480-6 BMI: 26.3 Code: 78105-3 Heart Rate 1: 60 bpm Height: 5'10" Code: 8302-2 Respiratory Rate: 20 bpm SpO2: 95% Temperature: 36.8 (C) / 98.2 (F) Weight: 183 lbs Code: 82712-6 03/05/2018 Blood Pressure 1: 122/64 Code: 8480-6 BMI: 25.7 Code: 89927-7 Heart Rate 1: 82 bpm Height: 5'10" Code: 8302-2 Respiratory Rate: 22 bpm SpO2: 96% Temperature: 36.4 (C) / 97.6 (F) Weight: 179 lbs Code: 30298-8 02/19/2018 Blood Pressure 1: 120/84 Code: 8480-6 Heart Rate 1: 68 bpm SpO2: 96% Temperature: 36.2 (C) / 97.2 (F) Weight: Code: 08136-1 02/13/2018 Blood Pressure 1: 138/90 Cod e: 8480-6 10/18/2017 Blood Pressure 1: 122/78 Code: 8480-6 BMI: 26.5 Code: 16761-5 Heart Rate 1: 72 bpm Height: 5'10" Code: 8302-2 Respiratory Rate: 20 bpm Temperat ure: 36.7 (C) / 98.0 (F) Weight: 185 lbs Code: 95610-5 07/24/2017 Blood Pressure 1: 118/68 Code: 8480-6 Heart Rate 1: 82 bpm Height: 5'10" Code: 8302-2 Respiratory Rate: 20 bpm SpO2: 92% Temperature: 36 .4 (C) / 97.6 (F) Weight: Code: 56520-1 06/14/2017 Blood Pressure 1: 156/98 Code: 8480-6 Heart Rate 1: 84 bpm Height: 5'10" Code: 8302-2 Respiratory Rate: 20 bpm SpO2: 96% Temperature: 36 .9 (C) / 98.5 (F) Weight: Code: 31506-3 06/01/2017 Blood Pressure 1: 122/82 Code: 8480-6 Heart Rate 1: 68 bpm Height: 5'10" Code: 8302-2 Respiratory Rate: 20 bpm Temperature: 36.8 (C) / 98.2 (F) 03/30/2017 Blood Pressure 1: 124/78 Code: 8480-6 Heart Rate 1: 88 bpm Height: 5'10" Code: 8302-2 Respiratory Rate: 20 bpm SpO2: 96% Temperature: 36 .9 (C) / 98.4 (F) Weight: Code: 43246-2 01/17/2017 Blood Pressure 1: 126/74 Code: 8480-6 Heart Rate 1: 72 bpm Height: 5'10" Code: 8302-2 Respiratory Rate: 20 bpm SpO2: 96% Temperature: 37 .0 (C) / 98.6 (F) Weight: Code: 48244-1 12/18/2016 Blood Pressure 1: 128/86 Code: 8480-6 BMI: 24.7 Code: 78679-6 Heart Rate 1: 76 bpm Height: 5'10" Code: 8302-2 Respiratory Rate: 20 bpm SpO2: 96% Temperature: 36.8 (C) / 98.3 (F) Weight: 172 lbs Code: 26157-9 11/02/2016 Blood Pressure 1: 128/80 Code: 8480-6 BMI: 24.7 Code: 59746-2 Heart Rate 1: 72 bpm Height: 5'10" Code: 8302-2 Respiratory Rate: 20 bpm SpO2: 94% Temperature: 36.9 (C) / 98.4 (F) Weight: 172 lbs Code: 21838-1 10/24/2016 Blood Pressure 1: 120/78 Code: 8480-6 BMI: 24.7 Code: 80758-9 Heart Rate 1: 88 bpm Height: 5'10" Code: 8302-2 Respiratory Rate: 18 bpm SpO2: 96% Temperature: 36.5 (C) / 97.7 (F) Weight: 172 lbs Code: 81796-5 02/07/2016 Heart Rate 1: 76 bpm Respiratory Rate: 22 bpm SpO2: 96 % Temperature: 36.4 (C) / 97.6 (F) Weight: Code: 43465-6 05/26/2015 Blood Pressure 1: 124/70 Code: 8480-6 BMI: 25.1 Code: 13559-9 Heart Rate 1: 84 bpm Height: 5'10" Code: 8302-2 Respiratory Rate: 20 bpm Temperat ure: 36.7 (C) / 98.1 (F) Weight: 175 lbs Code: 07258-8 11/30/2014 Blood Pressure 1: 142/94 Code: 8480-6 BMI: 25.1 Code: 03668-3 Heart Rate 1: 80 bpm Height: 5'10" Code: 8302-2 Respiratory Rate: 20 bpm Temperat ure: 36.9 (C) / 98.5 (F) Weight: 175 lbs Code: 30042-0 07/23/2014 Blood Pressure 1: 138/86 Code: 8480-6 BMI: 25.0 Code: 91795-1 Heart Rate 1: 80 bpm Height: 5'10" Code: 8302-2 Respiratory Rate: 20 bpm Temperat ure: 36.4 (C) / 97.6 (F) Weight: 174 lbs Code: 39677-9 03/09/2014 Blood Pressure 1: 122/78 Code: 8480-6 BMI: 25.0 Code: 39218-1 Heart Rate 1: 78 bpm Height: 5'10" Code: 8302-2 Respiratory Rate: 24 bpm Temperat ure: 36.4 (C) / 97.6 (F) Weight: 174 lbs Code: 24279-4 02/05/2014 Blood Pressure 1: 132/80 Code: 8480-6 BMI: 25.0 Code: 92954-5 Heart Rate 1: 84 bpm Height: 5'10" Code: 8302-2 Respiratory Rate: 20 bpm Temperat ure: 36.6 (C) / 97.9 (F) Weight: 174 lbs Code: 51666-1 05/12/2013 Blood Pressure 1: 138/94 Code: 8480-6 BMI: 25.1 Code: 86616-9 Heart Rate 1: 92 bpm Height: 5'10" Code: 8302-2 Respiratory Rate: 20 bpm Temperat ure: 36.7 (C) / 98.1 (F) Weight: 175 lbs Code: 38411-3 04/07/2013 Blood Pressure 1: 136/72 Code: 8480-6 BMI: 25.1 Code: 58491-2 Heart Rate 1: 76 bpm Height: 5'10" Code: 8302-2 Respiratory Rate: 20 bpm Temperat ure: 36.7 (C) / 98.0 (F) Weight: 175 lbs Code: 57689-0 03/31/2013 Blood Pressure 1: 132/94 Code: 8480-6 BMI: 25.1 Code: 92064-1 Heart Rate 1: 76 bpm Height: 5'10" Code: 8302-2 Respiratory Rate: 20 bpm Temperat ure: 36.7 (C) / 98.0 (F) Weight: 175 lbs Code: 14902-8 10/09/2012 Blood Pressure 1: 132/80 Code: 8480-6 BMI: 24.8 Code: 58424-1 Heart Rate 1: 88 bpm Height: 5'10" Code: 8302-2 Temperature: 36.8 (C) / 98.3 (F) Weight: 173 lbs Code: 69628-3 03/28/2012 Blood Pressure 1: 126/82 Code: 8480-6 BMI: 24.7 Code: 47037-7 Heart Rate 1: 72 bpm Height: 5'10" Code: 8302-2 Respiratory Rate: 20 bpm Temperat ure: 36.6 (C) / 97.8 (F) Weight: 172 lbs Code: 32635-0 2012 Blood Pressure 1: 130/72 Code: 8480-6 Heart Rate 1: 80 bpm Height: Code: 8302-2 Temperature: 36.5 (C) / 97.7 (F) Weight: Code: 52375- 7 09/27/2011 Blood Pressure 1: 116/78 Code: 8480-6 BMI: 24.4 Code: 63314-8 Heart Rate 1: 76 bpm Height: 5'10" Code: 8302-2 Respiratory Rate: 20 bpm Temperat ure: 36.9 (C) / 98.4 (F) Weight: 170 lbs Code: 03418-2 09/13/2011 Blood Pressure 1: 124/82 Code: 8480-6 BMI: 24.4 Code: 32901-4 Heart Rate 1: 72 bpm Height: 5'10" Code: 8302-2 Respiratory Rate: 20 bpm Temperat ure: 36.4 (C) / 97.6 (F) Weight: 170 lbs Code: 00586-1 08/07/2011 Blood Pressure 1: 110/74 Code: 8480-6 BMI: 23.2 Code: 29840-0 Heart Rate 1: 60 bpm Height: 5'11" Code: 8302-2 Temperature: 36.4 (C) / 97.5 (F) Weight: 166 lbs Code: 60367-8 02/06/2011 Blood Pressure 1: 96/58 Code : 8480-6 01/20/2011 Blood Pressure 1: 112/78 Cod e: 8480-6 01/12/2011 Blood Pressure 1: 110/48 Code: 8480-6 He art Rate 1: 84 bpm 01/04/2011 Blood Pressure 1: 126/80 Code: 8480-6 Heart Rate 1: 76 bpm Temperature: 36.9 (C) / 98.4 (F) Weight: 168 lbs Code: 04908-3 02/14/2010 Blood Pressure 1: 134/82 Code: 8480-6 Heart Rate 1: 88 bpm Temperature: 36.6 (C) / 97.9 (F) 02/07/2010 Blood Pressure 1: 130/80 Code: 8480-6 BMI: 23.4 Code: 16786-4 Heart Rate 1: 84 bpm Height: 5'10" Code: 8302-2 Temperature: 36.4 (C) / 97.6 (F) Weight: 163 lbs Code: 78799-0 Functional Status No Functional Status data Reason [...] Encounter Performer Location Location Address Codes Date ([id number]) OFFICE/OUTPATIENT VISIT EST Diagnosis: Atrial fibrillation and flutter[ICD10: I48.91] Yvette STUART CristiGarrett AKASHV[address] [address] CPT- 4: 81109 06/26/2022 ([id number]) OFFICE/OUTPATIENT VISIT EST Diagnosis: Chronic atrial fibrillation[ICD10: I48.20] Diagnosis: Essential hypertension[ICD10: I10] Diagnosis: Skin cancer of arm[ICD10: C44.601] Diagnosis: Mild chronic obstructive pulmonary disease[ICD10: J44.9] Yvette STUART CristiGarrett AKASHNATE [address] [address] CPT-4: 01605 05/22/2022 ([id number]) NURSE/OUTPATIENT VISIT EST Diagnosis: Atrial fibrillation and flutter[ICD10: I48.91] Diagnosis: Hypothyroidism[ICD10: E03.9] Diagnosis: Mixed hyperlipidemia[ICD10: E78.2] Diagnosis: Anemia, unspecified[ICD10: D64.9] Diagnosis: Essential (primary) hypertension[ICD10: I10] Diagnosis: Hyperglycemia, unspecified[ICD10: R73.9] Yvette STUART CristiGarrett JOANN [address] [address] CPT- 4: 08056 02/28/2022 ([id number]) OFFICE/OUTPATIENT VISIT EST Diagnosis: Atypical nevus of right forearm[ICD10: D22.61] Diagnosis: Unspecified atrial flutter[ICD10: I48.92] Diagnosis: Atrial fibrillation and flutter[ICD10: I48.91] Yvette DAVID [address] [address] CPT- 4: 68758 02/27/2022 ([id number]) OFFICE/OUTPATIENT VISIT EST Diagnosis: Anxiety[ICD10: F41.9] Yvette DAVID DO [address] [address] CPT-4: 06140 11/23/2021 ([id number]) OFFICE/OUTPATIENT VISIT EST Diagnosis: Anxiety[ICD10: F41.9] Diagnosis: Stress reaction[ICD10: F43.0] Yvette DAVID [address] [address] CPT-4: 41397 10/12/2021 ([id number]) OFFICE/OUTPATIENT VISIT EST Diagnosis: Contact with and (suspected) exposure to covid-19[ICD10: Z20.822] Diagnosis: Nasopharyngitis[ICD10: J00] Diagnosis: Acute foreign body of left ear canal, initial encounter[ICD10: T16.2XXA] Diagnosis: Acute foreign body of right ear canal[ICD10: T16.1XXA] Martina Laynehollydonato DAVID [address] [address] CPT-4: 55319 08/09/2021 ([id number]) OFFICE/OUTPATIENT VISIT EST Diagnosis: Essential (primary) hypertension[ICD10: I10] Diagnosis: Hypothyroidism[ICD10: E03.9] Diagnosis: Paroxysmal atrial fibrillation[ICD10: I48.0] Diagnosis: Hyperglycemia, unspecified[ICD10: R73.9] Yvette DAVID [address] [address] CPT- 4: 25480 07/28/2021 ([id number]) NURSE/OUTPATIENT VISIT EST Diagnosis: Mixed hyperlipidemia[ICD10: E78.2] Diagnosis: Anemia, unspecified[ICD10: D64.9] Diagnosis: Essential (primary) hypertension[ICD10: I10] Diagnosis: Hypothyroidism, unspecified[ICD10: E03.9] Diagnosis: Hyperglycemia, unspecified[ICD10: R73.9] Yvette DAVID [address] [address] CPT- 4: 43192 07/20/2021 ([id number]) OFFICE/OUTPATIENT VISIT EST Diagnosis: Grieving[ICD10: F43.21] Diagnosis: Inflamed seborrheic keratosis[ICD10: L82.0] Yvette DAVID DO [address] [address] CPT- 4: 53449 05/12/2021 ([id number]) OFFICE/OUTPATIENT VISIT EST Diagnosis: Rhus dermatitis[ICD10: L25.5] Yvette DAVID [address] [address] CPT-4: 89884 03/08/2021 ([id number]) OFFICE/OUTPATIENT VISIT EST Diagnosis: Essential hypertension[ICD10: I10] Diagnosis: Chronic atrial fibrillation[ICD10: I48.20] Diagnosis: Mixed hyperlipidemia[ICD10: E78.2] Diagnosis: Hyperglycemia, unspecified[ICD10: R73.9] Diagnosis: Depression[ICD10: F32.9] Yvette CHAIREZ [address] [address] CPT-4: 51975 02/03/2021 ([id number]) NURSE/OUTPATIENT VISIT EST Diagnosis: Hyperglycemia, unspecified[ICD10: R73.9] Diagnosis: Mixed hyperlipidemia[ICD10: E78.2] Diagnosis: Essential (primary) hypertension[ICD10: I10] Diagnosis: Hypothyroidism, unspecified[ICD10: E03.9] Yvette DAVID DO [address] [address] CPT- 4: 13523 01/31/2021 ([id number]) OFFICE/OUTPATIENT VISIT EST Diagnosis: Vertigo[ICD10: R42] Diagnosis: Chronic atrial fibrillation[ICD10: I48.20] Diagnosis: Cerumen impaction[ICD10: H61.20] Diagnosis: Depression[ICD10: F32.9] Yvette CHAIREZ DO [address] [address] CPT-4: 82138 01/04/2021 ([id number]) NURSE/OUTPATIENT VISIT EST Diagnosis: Essential hypertension[ICD10: I10] Yvette SIMMS HOLLY Michael DAVID DO [address] [address] CPT-4: 18914 10/05/2020 ([id number]) OFFICE/OUTPATIENT VISIT EST Diagnosis: Chronic atrial fibrillation[ICD10: I48.20] Diagnosis: Dizziness[ICD10: R42] Yvette MERCADOLINE CristiGarrett JOANN BORJA [address] [address] CPT-4: 05691 09/20/2020 ([id number]) NURSE/OUTPATIENT VISIT EST Diagnosis: Dysplastic nevus of right lower extremity[ICD10: D23.71] Yvette MERCADOLINE CristiGarrett JOANN BORJA [address] [address] CPT-4: 76913 05/28/2020 ([id number]) NURSE/OUTPATIENT VISIT EST Diagnosis: Essential (primary) hypertension[ICD10: I10] Diagnosis: Type 2 diabetes mellitus with hyperglycemia[ICD10: E11.65] Diagnosis: Anemia, unspecified[ICD10: D64.9] Diagnosis: Hypothyroidism, unspecified[ICD10: E03.9] Yvette MERCADOLINE CristiGarrett JOANN BORJA [address] [address] CPT- 4: 87247 05/05/2020 ([id number]) OFFICE/OUTPATIENT VISIT EST Diagnosis: 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] Diagnosis: Paroxysmal atrial fibrillation[ICD10: I48.0] Yvette Joann STUART Michael TAYLORER [address] [address] CPT- 4: 10907 02/11/2020 ([id number]) OFFICE/OUTPATIENT VISIT EST Diagnosis: Dermatitis[ICD10: L30.9] Diagnosis: 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] Diagnosis: Chronic pruritus[ICD10: L29.9] Yvette STUART Cristi DAVID [address] [address] CPT-4: 54020 01/28/2020 ([id number]) OFFICE/OUTPATIENT VISIT EST Diagnosis: Diarrhea, unspecified[ICD10: R19.7] Diagnosis: Dizziness[ICD10: R42] Diagnosis: Generalized pruritus[ICD10: L29.9] Yvette COREA Michael TAYLORER [address] [address] CPT-4: 29025 01/05/2020 ([id number]) NURSE/OUTPATIENT VISIT EST Diagnosis: Renal insufficiency[ICD10: N28.9] Yvette Shahid Michael DAVID [address] [address] CPT-4: 69054 12/05/2019 ([id number]) NURSE/OUTPATIENT VISIT EST Diagnosis: Renal insufficiency[ICD10: N28.9] Diagnosis: Dehydration[ICD10: E86.0] Yvette STUART CristiGarrett AKASH SULLIVAN [address] [address] CPT-4: 85216 11/05/2019 ([id number]) OFFICE/OUTPATIENT VISIT EST Diagnosis: Chronic atrial fibrillation[ICD10: I48.20] Diagnosis: Renal insufficiency[ICD10: N28.9] Diagnosis: Dizziness and giddiness[ICD10: R42] Yvette COLEMAN Michael BUSTOSNDMAYE [address] [address] CPT-4: 62694 10/29/2019 ([id number]) NURSE/OUTPATIENT VISIT EST Diagnosis: Hematuria, unspecified[ICD10: R31.9] Yvette BUSTOSNDER DO [address] [address] CPT-4: 74036 10/23/2019 ([id number]) NURSE/OUTPATIENT VISIT EST Diagnosis: Encounter for general adult medical examination without abnormal findings[ICD10: Z00.00] Diagnosis: Essential (primary) hypertension[ICD10: I10] Diagnosis: Hypothyroidism, unspecified[ICD10: E03.9] Diagnosis: Mixed hyperlipidemia[ICD10: E78.2] Yvette BUSTOSNDER DO [address] [address] CPT-4: 21610 10/21/2019 ([id number]) OFFICE/OUTPATIENT VISIT EST Diagnosis: Cerumen impaction[ICD10: H61.20] Diagnosis: Dizziness[ICD10: R42] Diagnosis: Gastritis[ICD10: K29.70] Diagnosis: Dehydration[ICD10: E86.0] Natalee BUSTOS NDER DO [address] [address] CPT-4: 55879 10/20/2019 ([id number]) OFFICE/OUTPATIENT VISIT EST Diagnosis: Paroxysmal atrial fibrillation[ICD10: I48.0] Diagnosis: Essential hypertension[ICD10: I10] Yvette BUSTOSNDER DO [address] [address] CPT-4: 33773 07/07/2019 ([id number]) OFFICE/OUTPATIENT VISIT EST Diagnosis: Essential (primary) hypertension[ICD10: I10] Yvette BUSTOSNDER DO [address] [address] CPT- 4: 06947 05/01/2019 ([id number]) OFFICE/OUTPATIENT VISIT EST Diagnosis: Essential (primary) hypertension[ICD10: I10] Diagnosis: Localized edema[ICD10: R60.0] Yvette BUSTOSNDER DO [address] [address] CPT-4: 69420 04/15/2019 ([id number]) NURSE/OUTPATIENT VISIT EST Diagnosis: Essential (primary) hypertension[ICD10: I10] Diagnosis: Hypothyroidism, unspecified[ICD10: E03.9] Diagnosis: Mixed hyperlipidemia[ICD10: E78.2] Yvette DAVID [address] [address] CPT-4: 03422 04/04/2019 ([id number]) NURSE/OUTPATIENT VISIT EST Diagnosis: Essential (primary) hypertension[ICD10: I10] Diagnosis: Hyperglycemia, unspecified[ICD10: R73.9] Diagnosis: Hypothyroidism, unspecified[ICD10: E03.9] Diagnosis: Mixed hyperlipidemia[ICD10: E78.2] Yvette DAVID [address] [address] CPT-4: 86906 10/07/2018 ([id number]) OFFICE/OUTPATIENT VISIT EST Diagnosis: Essential (primary) hypertension[ICD10: I10] Diagnosis: Presence of right artificial knee joint[ICD10: Z96.651] Diagnosis: Unspecified hearing loss, left ear[ICD10: H91.92] Yvette DAVID [address] [address] CPT- 4: 30747 08/08/2018 OFFICE/OUTPATIENT VISIT EST Diagnosis: Impacted cerumen, bilateral[ICD10: H61.23] Diagnosis: Vertigo of central origin, bilateral[ICD10: H81.43] Diagnosis: Essential (primary) hypertension[ICD10: I10] Diagnosis: Paroxysmal atrial fibrillation[ICD10: I48.0] Diagnosis: Dizziness and giddiness[ICD10: R42] Diagnosis: Sudden idiopathic hearing loss, left ear[ICD10: H91.22] Yvette DAVID [address] [address] CPT-4: 97168 06/25/2018 ([id number]) OFFICE/OUTPATIENT VISIT EST Diagnosis: Essential (primary) hypertension[ICD10: I10] Diagnosis: Vertigo of central origin, bilateral[ICD10: H81.43] Yvette DAVID DO [address] [address] CPT-4: 16655 05/10/2018 ([id number]) OFFICE/OUTPATIENT VISIT EST Diagnosis: Allergic rhinitis due to pollen[ICD10: J30.1] Diagnosis: Dizziness and giddiness[ICD10: R42] Diagnosis: Vertigo of central origin, bilateral[ICD10: H81.43] Diagnosis: Essential (primary) hypertension[ICD10: I10] Yvette DAVID DO [address] [address] CPT- 4: 31675 05/03/2018 OFFICE/OUTPATIENT VISIT EST Diagnosis: Hypothyroidism, unspecified[ICD10: E03.9] Diagnosis: Mixed hyperlipidemia[ICD10: E78.2] Diagnosis: Essential (primary) hypertension[ICD10: I10] Diagnosis: Paroxysmal atrial fibrillation[ICD10: I48.0] Diagnosis: Obstructive sleep apnea (adult) (pediatric)[ICD10: G47.33] Diagnosis: Unilateral primary osteoarthritis, right knee[ICD10: M17.11] Yvette DAVID DO [address] [address] CPT-4: 12181 04/22/2018 ([id number]) OFFICE/OUTPATIENT VISIT EST Diagnosis: Zoster without complications[ICD10: B02.9] Natalee DAVID DO [address] [address] CPT- 4: 51505 03/05/2018 ([id number]) NURSE/OUTPATIENT VISIT EST Diagnosis: Hypothyroidism, unspecified[ICD10: E03.9] Diagnosis: Mixed hyperlipidemia[ICD10: E78.2] Diagnosis: Essential (primary) hypertension[ICD10: I10] Diagnosis: Paroxysmal atrial fibrillation[ICD10: I48.0] Yvette DAVID DO [address] [address] CPT- 4: 53464 02/13/2018 ([id number]) OFFICE/OUTPATIENT VISIT EST Diagnosis: Obstructive sleep apnea (adult) (pediatric)[ICD10: G47.33] Diagnosis: Essential (primary) hypertension[ICD10: I10] Diagnosis: Paroxysmal atrial fibrillation[ICD10: I48.0] Yvette STUART Michael TAYLOR[address] [address] CPT- 4: 46598 10/18/2017 ([id number]) OFFICE/OUTPATIENT VISIT EST Diagnosis: Hypothyroidism, unspecified[ICD10: E03.9] Diagnosis: Other vitamin B12 deficiency anemias[ICD10: D51.8] Diagnosis: Essential (primary) hypertension[ICD10: I10] Diagnosis: Mixed hyperlipidemia[ICD10: E78.2] Yvette COREA Michael TAYLOR[address] [address] CPT-4: 69248 10/15/2017 OFFICE/OUTPATIENT VISIT EST Diagnosis: Impacted cerumen, bilateral[ICD10: H61.23] Diagnosis: Acute sinusitis, unspecified[ICD10: J01.90] Natalee TAYLOR [employer] [address] [address] CPT- 4: 78843 07/24/2017 ([id number]) OFFICE/OUTPATIENT VISIT EST Diagnosis: Obstructive sleep apnea (adult) (pediatric)[ICD10: G47.33] Diagnosis: Tachycardia, unspecified[ICD10: R00.0] Yvette QUINONES Michael TAYLOR[address] [address] CPT-4: 49215 06/14/2017 ([id number]) OFFICE/OUTPATIENT VISIT EST Diagnosis: Zoster without complications[ICD10: B02.9] Demi DILLONQUELINE Michael TAYLOR [employer] [address] [address] CPT- 4: 92063 06/01/2017 ([id number]) OFFICE/OUTPATIENT VISIT EST Diagnosis: Essential (primary) hypertension[ICD10: I10] Diagnosis: Tachycardia, unspecified[ICD10: R00.0] Diagnosis: Other vitamin B12 deficiency anemias[ICD10: D51.8] Yvette DAVID DO [employer] [address] [place] [address] CPT- 4: 69305 03/30/2017 ([id number]) OFFICE/OUTPATIENT VISIT EST Diagnosis: Essential (primary) hypertension[ICD10: I10] Diagnosis: Other fatigue[ICD10: R53.83] Diagnosis: Other chest pain[ICD10: R07.89] Diagnosis: Snoring[ICD10: R06.83] Yvette Vega DO [employer] [address] [place] [address] CPT-4: 57443 01/17/2017 ([id number]) OFFICE/OUTPATIENT VISIT EST Diagnosis: Encounter for general adult medical examination without abnormal findings[ICD10: Z00.00] Diagnosis: Hypothyroidism, unspecified[ICD10: E03.9] Diagnosis: Essential (primary) hypertension[ICD10: I10] Diagnosis: Mixed hyperlipidemia[ICD10: E78.2] Diagnosis: Other prison (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[ICD10: Z79.899] Diagnosis: Hyperglycemia, unspecified[ICD10: R73.9] Yvette DAVID DO [employer] [address] [place] [address] CPT- 4: 46423 12/11/2016 ([id number]) OFFICE/OUTPATIENT VISIT EST Diagnosis: URI, ACUTE[ICD10: J06.9] Diagnosis: Cough[ICD10: R05] Yvette DAVID DO [address] [address] CPT-4: 66137 11/02/19 17 ([id number]) OFFICE/OUTPATIENT VISIT EST Diagnosis: Acute upper respiratory infection, unspecified[ICD10: J06.9] Elidia Calix YVETTE DAVID DO [address] [address] CPT-4: 60349 10/24/2016 ([id number]) OFFICE/OUTPATIENT VISIT EST Diagnosis: Nausea[ICD10: R11.0] Diagnosis: Diarrhea, unspecified[ICD10: R19.7] Diagnosis: Dizziness and giddiness[ICD10: R42] Elidia Yogi COLEMAN [facility]ar[facility] [address] [place] [address] CPT-4: 22692 02/07/2016 ([id number]) OFFICE/OUTPATIENT VISIT EST Diagnosis: HYPOTHYROIDISM[ICD9: 244.9] Diagnosis: HYPERLIPIDEMIA NEC/NOS[ICD9: 272.4] Diagnosis: ANEMIA NOS[ICD9: 285.9] Diagnosis: HYPERTENSION[ICD9: 401.9] Diagnosis: Neuropathy[ICD9: 355.9] Yvette Rodriguez [facility] [address] [place] [address] CPT-4: 75735 05/27/2015 ([id number]) OFFICE/OUTPATIENT VISIT EST Diagnosis: Neuropathy[ICD9: 355.9] Diagnosis: Foot pain[ICD9: 729.5] Diagnosis: HYPOTHYROIDISM[ICD9: 244.9] Diagnosis: PNEUMOCOCCAL VACCINE[ICD10: Z23] Yvette Rodriguez [facility] [address] [place] [address] CPT-4: 60532 05/26/2015 ([id number]) OFFICE/OUTPATIENT VISIT EST Diagnosis: Hematochezia[ICD9: 578.1] Yvette [facility] [address] [place] [address] CPT-4: 55253 02/19/2015 ([id number]) OFFICE/OUTPATIENT VISIT EST Diagnosis: Hematochezia[ICD9: 578.1] Yvette [facility] [address] [place] [address] CPT-4: 02098 01/20/2015 ([id number]) OFFICE/OUTPATIENT VISIT EST Diagnosis: Hematochezia[ICD9: 578.1] Yvette Rodriguez [facility] [address] [place] [address] CPT-4: 27360 12/15/2014 ([id number]) OFFICE/OUTPATIENT VISIT EST Diagnosis: TINEA PEDIS[ICD9: 110.4] Diagnosis: Ceruminosis[ICD9: 380.4] Earline CHAIREZ DO [address] [address] CPT-4: 18734 11/30/2014 ([id number]) OFFICE/OUTPATIENT VISIT EST Diagnosis: HYPERLIPIDEMIA NEC/NOS[ICD9: 272.4] Yvette WAYNE JARED Michael TAYLORER DO [address] [address] CPT-4: 79956 11/26/2014 ([id number]) OFFICE/OUTPATIENT VISIT EST Diagnosis: HYPOTHYROIDISM[ICD9: 244.9] Diagnosis: HYPERLIPIDEMIA NEC/NOS[ICD9: 272.4] Diagnosis: ANEMIA NOS[ICD9: 285.9] Diagnosis: HYPERTENSION[ICD9: 401.9] Yvette DILLONQUELINE CristiGarrett AKASH GIOVANASilvia [address] [address] CPT-4: 27448 08/14/2014 ([id number]) OFFICE/OUTPATIENT VISIT EST Diagnosis: GERD[ICD9: 530.81] Diagnosis: COUGH[ICD10: R05] Yvette MERCADOLINE CristiGarrett JOANN [address] [address] CPT-4: 15710 07/23/20 14 OFFICE/OUTPATIENT VISIT EST Diagnosis: Heel pain[ICD9: 729.5] Earline SmileyWhitneymargarita MERCADOLINE CristiGarrett AKASHGIOVANA R [address] [address] CPT-4: 01029 03/09/2014 ([id number]) OFFICE/OUTPATIENT VISIT EST Diagnosis: HYPOTHYROIDISM[ICD9: 244.9] Diagnosis: HYPERLIPIDEMIA NEC/NOS[ICD9: 272.4] Diagnosis: Right medial knee pain[ICD9: 719.46] Yvette MERCADO TRINA CristiGarrett BRANDONER DO [address] [address] CPT-4: 23954 02/05/2014 ([id number]) OFFICE/OUTPATIENT VISIT EST Diagnosis: HYPOTHYROIDISM[ICD9: 244.9] Diagnosis: HYPERLIPIDEMIA NEC/NOS[ICD9: 272.4] Diagnosis: HYPERTENSION[ICD9: 401.9] Diagnosis: ANEMIA NOS[ICD9: 285.9] Diagnosis: MALAISE AND FATIGUE[ICD9: 780.79] Yvette KONG Zehra ColinGarrett JOANN [employer] [address] [place] [address] CPT-4: 21404 02/04/2014 OFFICE/OUTPATIENT VISIT EST Diagnosis: Right medial knee pain[ICD9: 719.46] Diagnosis: Degeneration, intervertebral disc, lumbar[ICD9: 722.52] Diagnosis: Low back pain[ICD9: 724.2] Earline Rodriguez LUISITO STEFAN [address] [address] CPT-4: 59103 05/12/2013 ([id number]) OFFICE/OUTPATIENT VISIT EST Diagnosis: Lumbar degenerative disc disease[ICD9: 722.52] Diagnosis: Bulging lumbar disc[ICD9: 722.10] Yvette Rodriguez JOANN DO [employer] [address] [place] [address] CPT-4: 93972 04/07/2013 ([id number]) OFFICE/OUTPATIENT VISIT EST Diagnosis: PAIN, LOWER BACK[ICD9: 724.2] Diagnosis: SPASM OF MUSCLE[ICD9: 728.85] Diagnosis: Lumbar degenerative disc disease[ICD9: 722.52] Yvette Rodriguez JOANN [facility] [address] [place] [address] CPT- 4: 87658 03/31/2013 ([id number]) OFFICE/OUTPATIENT VISIT EST Diagnosis: Greater trochanteric bursitis[ICD9: 726.5] Diagnosis: DYSPEPSIA[ICD9: 536.8] Yvette Vega DO [facility] [address] [place] [address] CPT-4: 31034 10/09/2012 OFFICE/OUTPATIENT VISIT EST Diagnosis: CYSTOCELE NOS[ICD9: 618.01] Diagnosis: GERD[ICD9: 530.81] Diagnosis: VAGINITIS[ICD9: 623.5] Yvette HYLTON R DO [address] [address] CPT-4: 77499 03/28/2012 ([id number]) OFFICE/OUTPATIENT VISIT EST Diagnosis: HYPOTHYROIDISM[ICD9: 244.9] Diagnosis: HYPERLIPIDEMIA NEC/NOS[ICD9: 272.4] Diagnosis: HYPERTENSION[ICD9: 401.9] Diagnosis: ANEMIA NOS[ICD9: 285.9] Yvette TAYLOR ER DO [address] [address] CPT-4: 66530 03/18/2012 OFFICE/OUTPATIENT VISIT EST Diagnosis: CERUMEN IMPACTION[ICD9: 380.4] Diagnosis: OTALGIA[ICD9: 388.70] Reyna Eldon YVETTE DAVID DO [address] [address] CPT-4: 01495 2012 OFFICE/OUTPATIENT VISIT EST Diagnosis: COUGH[ICD9: 786.2] Diagnosis: Cystocele[ICD9: 618.01] Diagnosis: VAGINITIS[ICD9: 623.5] Diagnosis: ROUTINE GYNE EXAM[ICD9: V72.31] Yvette DAVID DO [address] [address] CPT-4: 02743 09/27/2011 SPECIMEN HANDLING Diagnosis: [ICD9: ] Diagnosis: [ICD9: ] Diagnosis: [ICD9: ] Diagnosis: [ICD9: ] Yvette DAVID DO [address] [address] CPT-4: 69208 09/27/2011 OFFICE/OUTPATIENT VISIT EST Diagnosis: PHARYNGITIS, ACUTE[ICD9: 462] Diagnosis: URI, ACUTE[ICD9: 465.9] Yvette TAYLOR ER DO [address] [address] CPT-4: 26896 09/13/2011 OFFICE/OUTPATIENT VISIT EST Diagnosis: PHARYNGITIS, ACUTE[ICD9: 462] Diagnosis: COUGH[ICD9: 786.2] Yvette DAVID DO [facility] [address] [place] [address] CPT-4: 08641 08/07/20 11 ([id number]) OFFICE/OUTPATIENT VISIT EST Yvette BUSTOSNDER DO [facility] [address] [place] [address] CPT-4: 15852 01/04/2011 ([id number]) OFFICE/OUTPATIENT VISIT, EST Yvette BUSTOSNDER DO [employer] [address] [place] [address] CPT-4: 43736 02/14/2010 ([id number]) OFFICE/OUTPATIENT VISIT, EST Yvette DAVID DO [facility] [address] [place] [address] CPT-4: 32037 02/07/2010 Plan of Care Planned Activity Notes Codes Status Date Visit Diagnosis Plan: Atrial fibrillation and flutter Discussion: Increase metoprolol to 50mg po BID Increase amiodarone to 200mg po BID Fwup 1month Defers flu shot ICD-9 : 427.31 ICD-10 : I48.91 06/26/2022 Patient Education: metoprolol succinate- [facility] Co upon [id number] [email or web address] Completed 06/26/2022 Visit Diagnosis Plan: Skin cancer [...] : J44.9 05/22/2022 Appointment: Yvette David WPtel: [address] [place], [place] [phone] FOLLOW UP 05/22/2022 Referral: Anuj Eng WPtel: [address] [facility] [place] Referral Appointment Confirmed 03/08/2022 Appointment: Yvette David WPtel: [address] [place], [place] [phone] US LAB 02/28/2022 Visit Diagnosis Plan: Unspecified [...] : I48.91 02/27/2022 Appointment: Yvette David WPtel: [address] [place], [place] [phone] ACUTE ILLNESS 02/27/2022 Care Plan: Referral Order SNOMED-CT : 30 [id number] Pending 02/27/2022 Care Plan: Referral Order SNOMED-CT : 30 [id number] Pending 02/27/2022 [facility]ment[facility]el[facility] [phone] [phone] [place] CANCELED 12/06/2021 Visit Diagnosis Plan: Anxiety Discussion: Improving wi th effexor--wants to keep dose the same ICD-9 : 300.00 ICD-10 : F41.9 11/23/2021 Appointment: Yvette David WPtel: [phone] US FOLLOW UP 11/23/2021 Visit Diagnosis Plan: Anxiety Discussion: Restart effe xor XR at 37.5mg daily Stress Reducers Fwup 6 weeks No tremors noted today ICD-9 : 300.00 ICD-10 : F41.9 10/12/2021 Appointment: Yvette David [facility]Ptel[facility] [phone] [phone] [facility] 10/12/2021 Visit Plan: Supportive [...] T16.2XXA 08/09/2021 Appointment: Martina Lopez WPtel: [phone] [phone] ACUTE ILLNESS 08/09/2021 Patient Education: Patient Medication [...] : R73.9 07/28/2021 Appointment: Yvette David WPtel: [address] [place], [place] [phone] FOLLOW UP 07/28/2021 Appointment: Yvette David WPtel: [address] [place], [place] [phone] LAB 07/20/2021 Visit Diagnosis Plan: Grieving Discussion: Restart Eff exor XR 37.5mg po q AM ICD-9 : 309.0 ICD-10 : F43.21 05/12/2021 Visit Diagnosis Plan: Inflamed seborrheic keratosis Di scussion: Cryotherapy as above ICD-9 : 702.11 ICD-10 : L82.0 05/12/2021 Appointment: Yvette David WPtel: [address] [place], [place] [phone] US FOLLOW UP 05/12/2021 Appointment: Yvette David WPtel: [address] [place], [place] [phone] US assisted patient with opening her eye drops for cataract liane an (sera) CANCELED 03/22/2021 Visit Diagnosis Plan: Rhus dermatitis Discussion: Marielena log 40mg IM x1 Can continue TAC ICD-9 : 692.6 ICD-10 : L25.5 03/08/2021 Appointment: Yvette David WPtel: [address] [place], [place] [phone] US FOLLOW UP 03/08/2021 Visit Diagnosis Plan: [...] : I48.20 02/03/2021 Appointment: Yvette David WPtel: [address] [place], [place] [phone] US FOLLOW UP 02/03/2021 Appointment: Yvette David WPtel: [address] [place], [place] [phone] US LAB 01/31/2021 Visit Diagnosis Plan: Chronic [...] : H61.20 01/04/2021 Appointment: Yvette David WPtel: [address] [place], [place] [phone] ACUTE ILLNESS 01/04/2021 Appointment: Yvette David WPtel: [address] [place], [place] [phone] BP CHECK 10/05/2020 Visit Diagnosis Plan: Chronic atrial fibrillation Disc ussion: Due to symptomatic bradycardia will decrease metoprolol ER to 25mg po BID Bring by BP and pulse readings in 2 weeks ICD-9 : 427.31 ICD-10 : I48.20 09/20/2020 Appointment: Yvette David WPtel: [address] [place], [place] [phone] ACUTE ILLNESS 09/20/2020 Appointment: Yvette David WPtel: [address] [place], [place] [phone] NURSE SERVICES 05/28/2020 Visit Diagnosis Plan: Dysplastic nevus of right lower extremity Discussion: Removal as above and sent to pathology Return in 10 days for suture removal ICD-9 : 216.7 ICD-10 : D23.71 05/19/2020 Appointment: Yvette David WPtel: [address] [place], [place] [phone] FOLLOW UP 05/19/2020 Visit Diagnosis Plan: Diarrhea [...] 05/11/2020 Visit Diagnosis Plan: Encounter for [facility] adult medical examination without abnormal findings [...] : I48.20 05/11/2020 Appointment: Yvette David WPtel: [phone] [phone] US Annual Well Visit 05/11/2020 Appointment: Yvette David WPtel: [phone] [phone] US LAB 05/05/2020 Visit Diagnosis Plan: [...] : I48.0 02/11/2020 Appointment: Yvette David WPtel: [phone] US FOLLOW UP 02/11/2020 Visit Diagnosis [...] : L29.8 01/28/2020 Appointment: Yvette David WPtel: [address] [place], [place] [phone] ACUTE ILLNESS 01/28/2020 Patient Education: hydroxyzine HCl- [employer] Coupon [id number] https://www.ChessCube.com/samplemd/resources/getResource/61/[email or web address]-0io9-5o Completed 01/28/2020 Visit Diagnosis Plan: Diarrhea, unspecified [...] : R42 01/05/2020 Appointment: Yvette David WPtel: [address] [place], [place] [phone] ACUTE ILLNESS 01/05/2020 Appointment: Yvette David WPtel: [address] [place], [place] [phone] US LAB 12/05/2019 Appointment: Yvette David WPtel: [address] [place], [place] [phone] US LAB 11/05/2019 Visit Diagnosis Plan: Dizziness [...] : N28.9 10/29/2019 Appointment: Yvette David WPtel: [address] [place], [place] [phone] FOLLOW UP 10/29/2019 Appointment: Yvette David WPtel: [phone] [phone] UA 10/23/2019 Appointment: Yvette David WPtel: [phone] [place] [phone] LAB 10/21/2019 Visit Diagnosis Plan: Dizziness Discussion: [...] H61.20 10/20/2019 Appointment: Natalee Gray [address] [facility] [address] ACUTE ILLNESS 10/20/2019 Patient Education: meclizine- [employer] Coupon [phone] https://www.Your Policy Managerividence/samplemd/resources/getResource/61/78i83385-764c-79op-oz Completed 10/20/2019 Appointment: Yvette David WPtel: [address] [place], [place] [phone] [place] Canceled, Said patient was feeling lots [...] : I48.0 07/07/2019 Appointment: Yvette David WPtel: [address] [place], [place] [address] FOLLOW UP 07/07/2019 Visit Diagnosis Plan: Essential (primary) hypertension Discussion: Increase HCTZ to 25mg daily Call in 1 week with BP readings ICD-9 : 401.9 ICD-10 : I10 05/01/2019 Appointment: Yvette David WPtel: [address] [place], [place] [address] FOLLOW UP 05/01/2019 Visit Diagnosis Plan: Essential (primary) hypertension Discussion: Change metoprolol to 50mg po q AM and 100mg po q PM Add HCTZ 12.5mg po q AM Monitor home BP and pulse Recheck 2 weeks Start Cardiac Rehab or Wellness ICD-9 : 401.1 ICD-10 : I10 04/15/2019 Appointment: Yvette David WPtel: [address] [place], [place] [phone] FOLLOW UP 04/15/2019 Patient Education: hydrochlorothiazide- Optimize[employer] [facility] [id number] https://www.Your Policy Manager.AlixaRx/samplemd/resources/getResource/61/4c9f9146-k96a-087d-al Completed 04/15/2019 Appointment: Yvette David WPtel: [phone] [phone] US LAB 04/04/2019 Care Plan: US EXAM CHEST US of left breast LOINC : 34514-5 Pending 03/17/2019 Visit Diagnosis Plan: Hypothyroidism, unspecified Disc ussion: Stable ICD-9 : 244.9 ICD-10 : E03.9 11/26/2018 Visit Diagnosis Plan: Paroxysmal atrial fibrillation D iscussion: Stable ICD-9 : 427.31 ICD-10 : I48.0 11/26/2018 Visit Diagnosis Plan: Encounter for [facility] adult medical examination without abnormal findings Discussion: Mediterranean diet Combinati on of cardio and weight bearing exercise Recommend Shingrix Lab and fwup in March ICD-9 : V70.9 ICD-10 : Z00.00 11/26/2018 Visit Diagnosis Plan: Essential (primary) hypertension Discussion: Stable ICD-9 : 401.1 ICD-10 : I10 11/26/2018 Appointment: Yvette David WPtel: [address] [place], [place] [phone] Annual Well Visit 11/26/2018 Appointment: Yvette David WPtel: [address] [place], [place] [phone] US LAB 10/07/2018 Visit Diagnosis Plan: Presence [...] : H91.92 08/08/2018 Appointment: Yvette David WPtel: [address] [place], [place] [phone] US FOLLOW UP 08/08/2018 Appointment: Natalee Gray [address] [place] [address] US CANCELED 07/18/2018 Visit Diagnosis Plan: Sudden [...] : I10 06/25/2018 Appointment: Yvette David WPtel: [address] [place], [place] [address] [facility] Follow Up 06/25/2018 Patient Education: Patient Medication Summary Completed 06/25/2018 Appointment: Yvette Davidtel: [address] [place], [place] [phone] BP CHECK 05/20/2018 Patient Education: Patient Medication [...] : I10 05/10/2018 Appointment: Yvette David WPtel: [address] [place], [place] [phone] FOLLOW UP 05/10/2018 Patient Education: Patient Medication [...] I10 05/03/2018 Appointment: Yvette David WPtel: [phone] [phone] ACUTE ILLNESS 05/03/2018 Patient Education: Patient [...] E03.9 04/22/2018 Appointment: Yvette David WPtel: [phone] [phone] FOLLOW UP 04/22/2018 Patient Education: Patient [...] ICD-10 : B02.9 03/05/2018 Appointment: Natalee Gray [address] [place], [place] [phone] ACUTE ILLNESS 03/05/2018 Patient Education: Patient Medication [...] ICD-10 : H61.23 02/19/2018 Appointment: Natalee Gray [address] [place], [place] [phone] ACUTE ILLNESS 02/19/2018 Patient Education: Patient Medication Summary Completed 02/19/2018 Appointment: Yvette David WPtel: [address] [place] [phone] LAB 02/13/2018 Patient Education: Patient Medication Summary [...] : G47.33 10/18/2017 Appointment: Yvette David WPtel: [facility]7 [phone] FOLLOW UP 10/18/2017 Patient Education: Patient Medication Summary Completed 10/18/2017 Appointment: Yvette David WPtel: [phone] [phone] LAB 10/15/2017 Patient Education: Patient Medication [...] : H61.23 07/24/2017 Appointment: Natalee Gray [address] [place], [place] [phone] ACUTE ILLNESS 07/24/2017 Patient Education: Patient Medication Summary Completed 07/24/2017 Referral: Jey Kaye WPtel: [address] [facility] 300 [id number] Referral Initiated 07/05/2017 Patient Education: Patient Medication [...] R00.0 06/14/2017 Appointment: Yvette David WPtel: [phone] [facility] FOLLOW UP 06/14/2017 Patient Education: Patient Medication Summary Completed 06/14/2017 Care Plan: Referral Order SNOMED-CT : [phone] Pending 06/14/2017 Visit Plan: ERx for Valtrex, [...] Demi Rocha [facility]Ptel: [phone] [facility] [facility] 06/01/2017 Patient Education: Patient Medication [...] D51.8 03/30/2017 Appointment: Yvette David WPtel: [phone] [phone] 7/6 lm ~sl FOLLOW UP 03/30/2017 [...] R53.83 01/17/2017 Appointment: Yvette David WPtel: [phone] [phone] 4/25 lm`sl FOLLOW UP 01/17/2017 Patient [...] G62.9 12/18/2016 Visit Diagnosis Plan: Encounter for [facility] adult medical examination without abnormal findings Discussion: Increase activity and contin ue healthy eating Continune using urinary incontinence pads at night for nocturia Reviewed labs ICD-9 : V70.9 ICD-10 : Z00.00 12/18/2016 Appointment: Yvette David WPtel: [phone] [phone] US 11/13 confirmed ~sl Annual Well Visit 12/18/2016 Patient Education: Patient Medication Summary Completed 12/18/2016 Appointment: Yvette David WPtel: [phone] [phone] US LAB 12/11/2016 Patient Education: Patient [...] R05 11/02/2016 Appointment: Yvette David WPtel: [phone] FOLLOW UP 11/02/2016 Appointment: Yvette David WPtel: [address] [place], [place] [phone] CANCELED 11/02/2016 Patient Education: Patient Medication Summary Completed 11/02/2016 Visit Diagnosis Plan: Acute upper respiratory infectio n, unspecified Discussion: Rx as above Discussed OTC meds and supportive care Notify if not improving so regimen can be changed before her upcoming trip in 2 weeks ICD-9 : 465.9 ICD-10 : J06.9 10/24/2016 Appointment: Eldiia Calix [address] [place] [address] ACUTE ILLNESS 10/24/2016 Patient Education: Patient Medication Summary Completed 10/24/2016 Patient Education: Patient Medication Summary Completed 06/26/2016 Visit Plan: Office dip wnl/BP wnl Does s eem likely to be viral GI illness Supportive care with rxs as above Soft and bland diet Will need bloodwork if not improving 02/07/2016 Appointment: Elidia Calix [address] [place], [place] [phone] ACUTE ILLNESS 02/07/2016 Patient Education: Patient Medication Summary Completed 02/07/2016 Patient Education: Patient Medication Summary Completed 07/01/2015 Appointment: Yvette David WPtel: [address] [place], [place] [phone] LAB 05/27/2015 Patient Education: Patient Medication Summary Completed 05/27/2015 Visit Plan: Trial of Gralise 300mg at be [facility] with 4 oz tonic water Sharron's solution soaks to feet Check TSH, Free T4, B12, CMP, HbA1C now Call in 2weeks 05/26/2015 Appointment: Yvette David WPtel: [address] [place], [place] [phone] 05/25/2015 confirmed w patient ACUTE ILLNESS 10/2014 Patient Education: Patient Medication Summary Completed 05/26/2015 Appointment: Yvette David WPtel: [phone] [phone] US Stool lab 02/19/2015 Patient Education: Patient Medication Summary Completed 02/19/2015 Appointment: Yvette David WPtel: [phone] [phone] [place] Stool lab 01/20/2015 Patient Education: Patient Medication Summary Completed 01/20/2015 Appointment: Yvette David WPtel: [address] [place], [place] [phone] US LAB 12/15/2014 Patient Education: Patient Medication Summary Completed 12/15/2014 Appointment: Earline Morris WPtel: [address] [place], [place] [phone] ACUTE ILLNESS 11/30/2014 Patient Education: Patient Medication Summary Completed 11/30/2014 Appointment: Yvette David WPtel: [address] [place], [place] [phone] US LAB 11/26/2014 Patient Education: Patient Medication Summary Completed 11/26/2014 Appointment: Yvette David WPtel: [address] [place], [place] [phone] US LAB 08/14/2014 Patient Education: Patient Medication Summary Completed 08/14/2014 Visit Plan: Defers bone density Proceed with colonoscopy Change omeprazole to protonix Due for fasting lab next month 07/23/2014 Appointment: Yvette David WPtel: [address] [place], [place] [phone] ACUTE ILLNESS 07/23/2014 Patient Education: Patient Medication Summary Completed 07/23/2014 Patient Education: Patient Medication Summary Completed 06/05/2014 Appointment: Earline Morris WPtel: [address] [place], [place] [phone] [place] FOLLOW UP 03/09/2014 Patient Education: Patient Medication Summary Completed 03/09/2014 Appointment: Yvette Davidl: [address] [place], [place] [phone] ACUTE ILLNESS 02/05/2014 Patient Education: Patient Medication Summary Completed 02/05/2014 Appointment: Yvette David WPtel: [address] [place], [place] [phone] LAB 02/04/2014 Patient Education: Patient Medication Summary Completed 02/04/2014 Appointment: Earline Morris WPtel: [address] [place], [place] [phone] ACUTE ILLNESS 05/12/2013 Patient Education: Patient Medication Summary Completed 05/12/2013 Visit Plan: MRI results discussed Discus sed epidural injections SI joint injection as above Continue Celebrex 200mg daily 04/07/2013 Appointment: Yvette David WPtel: [address] [place], [place] [phone] 04/04 left message FOLLOW UP 04/07/2013 Patient Education: Patient Medication Summary Completed 04/07/2013 Visit Plan: Restart PT and epidural--may need updated MRI of L/S spine Tylenol prn Celebrex 200mg daily 03/31/2013 Appointment: Yvette David WPtel: [address] [place], [place] [phone] ACUTE ILLNESS 03/31/2013 Patient Education: Patient Medication Summary Completed 03/31/2013 Visit Plan: Injection to hip as above Pt will take Vimovo 500/20mg po daily for next week Call in 1wk on both hip and stomach Discussed that likely has arthritis in hip as well 10/09/2012 Appointment: Yvette David WPtel: [address] [place], [place] [phone] 10/08 Left message ACUTE ILLNESS 10/09/2012 Patient Education: Patient Medication Summary Completed 10/09/2012 Visit Plan: See urology--Dr. Hutchinson for cystocele Start Premarin vaginal Cream 1/2 gm vaginally twice weekly then repeat PAP in 3mos Continue nexium for 4 more weeks then start Zantac daily--notify if cough returns 03/28/2012 Appointment: Yvette David WPtel: [address] [place], [place] [phone] PAP 03/28/2012 Patient Education: Patient Medication Summary Completed 03/28/2012 Appointment: Yvette David WPtel: [address] [place], [place] [phone] LAB 03/18/2012 Patient Education: Patient Medication Summary Completed 03/18/2012 Appointment: Reyna Colón WPtel: [address] [place], [place] [phone] OFFICE SURGERY 2012 Patient Education: Patient Medication Summary Completed 2012 Visit Plan: Pap done Kegel exercises--de fers meds or surgery eval at this time Mammo due in January [place] symbicort 09/27/2011 Appointment: Yvette David WPtel: [address] [place], [place] [phone] FOLLOW UP 09/27/2011 Patient Education: Patient Medication Summary Completed 09/27/2011 Visit Plan: Symbicort 160/4.5 2 p BID 09/13/2011 Appointment: Yvette David WPtel: [address] [place], [place] [phone] ACUTE ILLNESS 09/13/2011 Patient Education: Patient Medication Summary Completed 09/13/2011 Visit Plan: Cefdinir and medrol dose pac k. Discussed if no improvement by Sunday will obtain chest x-ray and CBC with mycoplasma. 08/07/2011 Appointment: Reyna Colón WPtel: [address] [place], [place] [phone] ACUTE ILLNESS 08/07/2011 Patient Education: Patient Medication Summary Completed 08/07/2011 Appointment: Yvette David WPtel: [address] [place], [place] [phone] 07/13/2011 Patient Education: Patient Medication Summary Completed 07/13/2011 Appointment: Yvette David WPtel: [address] [place], [place] [phone] LAB 03/13/2011 Patient Education: Patient Medication Summary Completed 03/13/2011 Appointment: Yvette David WPtel: [address] [place], [place] [phone] BP CHECK 02/06/2011 Patient Education: Patient Medication Summary Completed 02/06/2011 Appointment: Yvette David WPtel: [address] [place], [place] [phone] BP CHECK 01/20/2011 Patient Education: Patient Medication Summary Completed 01/20/2011 Appointment: Yvette David WPtel: [address] [place], [place] [phone] BP CHECK 01/12/2011 Patient Education: Patient Medication Summary Completed 01/12/2011 Visit Plan: Increase Synthroid to 75mcg po daily Increase fish oil to BID Start daily Toprol XL 12.5mg BP check in 1wk TSH and Free T4 in 2mos. 01/04/2011 Appointment: Yvette David WPtel: [address] [place], [place] [phone] FOLLOW UP 01/04/2011 Patient Education: Patient Medication Summary Completed 01/04/2011 Appointment: Yvette David WPtel: [address] [place], [place] [phone] LAB 12/16/2010 Patient Education: Patient Medication Summary Completed 12/16/2010 Visit Plan: Start PT May need MRI 02/14/2010 Appointment: Yvette David WPtel: [address] [place], [place] [phone] OFFICE SURGERY 02/14/2010 Patient Education: Patient Medication [...] (steroid). 02/07/2010 Appointment: Reyna Colón WPtel: [phone] [facility] [facility] 02/07/2010 Patient Education: Patient Medication Summary Completed 02/07/2010 Appointment: Yvette David WPtel: [phone] [phone] LAB 12/22/2009 Patient Education: Patient Medication Summary Completed 12/22/2009 Referral: Lino Davila [address] [id number] [id number] Referral Initiated Instructions Comment Date . Supportive [...] data not found Advance Directives Filename Date [id number] 06/03/2012
--- OUTSIDE RECORDS SUMMARY | 2022-08-14 14:07 | XMS REPORT | CCD ---
Author Author Lucille David D.O. Organization [facility] Address [address] [place] [address] Phone Care Team Providers Care Sustainable Communities Designer Name Role Phone Yvette David D.O., PP Unavailable CCM Unavailable Summary Purpose Interface Exchange Insurance Providers Payer name Policy type / Coverage type Covered libertarian ID Effective Begin Date Effective End Date W[place] MEDIC[place] B [place] Medicare Part B [id number] Unknown Cigna Medicare Part B [id number] Unknown Family History Family History data not found Social History Social History Element Codes Description Effective Dates Tobacco history SNOMED CT: [id number] Has never smoked or chewed tobacco 05/26/2015 [...] ICD-10: G62.9 ICD-9: 355.9 12/18/2016 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 ICD-10: Z79.899 ICD-9: V58.69 [...] Fill Instructions amiodarone 200 mg tablet RxNorm: 122956 Take 1 Tablet(s) Oral t wo times a day 06/26/2022 12/22/2022 Active metoprolol succinate ER 50 mg tablet,extended release 24 hr RxNorm: 975726 1 Tablet(s) Oral two times a day 06/26/2022 12/22/2022 Active venlafaxine ER 37.5 mg capsule,extended release 24 hr RxNorm : 755473 Take 1 Capsule(s) Oral QAM 06/16/2022 12/12/2022 Active simvastatin 20 mg tablet RxNorm: 753070 Take 1 Tablet(s) Oral QD 11/21/2022 Active Xarelto 20 mg tablet RxNorm: 6856249 Take 1 Tablet(s) Oral QD 05/22 No Stop Date Active amiodarone 200 mg tablet RxNorm: 751906 Take 1 Tablet(s) Oral QD 06/25/2022 Inactive Euthyrox 88 mcg tablet RxNorm: 931850 TAKE 1 TABLET BY MOUTH ONCE DAILY - DUE FOR UPDATED LAB 05/21/2022 08/18/2022 Active Breztri Aerosphere 160 mcg-9mcg-4.8mcg/actuation HFA a erosol inhaler RxNorm: 7119047 2 Puff(s) Inhalation two times a day in the morning an d evening 05/01/2022 05/01/2022 Inactive Breztri Aerosphere 160 mcg-9mcg-4.8mcg/actuation HFA a erosol inhaler RxNorm: 5842416 2 Puff(s) Inhalation two times a day in the morning an d evening 05/01/2022 05/30/2022 Inactive diltiazem CD 120 mg capsule,extended release 24 hr RxNorm: 8 12235 TAKE 1 CAPSULE BY MOUTH TWICE DAILY REPLACES 180MG DOSE 04/17/2022 10/13/2022 Active pantoprazole 40 mg tablet,delayed release RxNorm: 162624 Take 1 Tablet(s) Oral QD 04/17/2022 10/13/2022 Active Xarelto 10 mg tablet RxNorm: 9774358 Take 1 Tablet(s) Oral QD 03/2105/21/2022 Inactive simvastatin 20 mg tablet RxNorm: 323665 Take 1 Tablet(s) Oral QD 02/23/2022 Inactive levothyroxine 88 mcg tablet RxNorm: 477141 Take 1 table t by mouth once daily due for updated lab 02/22/2022 02/22/2022 Inactive Cartia XT 120 mg capsule,extended release RxNorm: 170090 TAKE 1 CAPSULE BY MOUTH TWICE DAILY REPLACES 180MG DOSE 01/16/2022 01/16/2022 Inactive pantoprazole 40 mg tablet,delayed release RxNorm: 080325 Take 1 Oral QD 12/15/2021 12/15/2021 Inactive scopolamine 1 mg over 3 days transdermal patch RxNorm: 32449 2 Take 1 Application Transdermal Q3D as needed 11/23/2021 06/25/2022 Inactive Effexor XR 37.5 mg capsule,extended release RxNorm: 508231 1 Capsule(s) Oral QAM 11/23/2021 11/23/2021 Inactive levothyroxine 88 mcg tablet RxNorm: 857637 Take 1 tablet by alvaro once daily 11/21/2021 11/21/2021 Inactive diltiazem CD 120 mg capsule,extended release 24 hr RxNorm: 8 55989 TAKE 1 CAPSULE BY MOUTH TWICE DAILY REPLACES 180MG DOSE 10/17/2021 10/17/2021 Inactiv e pantoprazole 40 mg tablet,delayed release RxNorm: 373809 Take 1 Tablet(s) Oral QD 10/17/2021 10/17/2021 Inactive Effexor XR 37.5 mg capsule,extended release RxNorm: 937480 1 Capsule(s) Oral QAM 10/12/2021 11/22/2021 Inactive Xarelto 10 mg tablet RxNorm: 2888286 Take 1 Tablet(s) Oral QD 09/1409/14/2021 Inactive metoprolol succinate ER 50 mg tablet,extended release 24 hr RxNorm: 813056 Take 1/2 (one-half) tablet by mouth twice daily 09/14/2021 03/12/2022 Inact beto simvastatin 20 mg tablet RxNorm: 529886 Take 1 Tablet(s) Oral QD 08/30/2021 Inactive levothyroxine 88 mcg tablet RxNorm: 905233 Take 1 tablet by alvaro once daily 08/28/2021 08/28/2021 Inactive fluticasone propionate 50 mcg/actuation nasal spray,suspensi on RxNorm: 8243750 Take 1 [place] Nasal QD in each nostrilas needed 08/09/2021 09/07/2021 I nactive pantoprazole 40 mg tablet,delayed release RxNorm: 693229 Take 1 Tablet(s) Oral QD 07/19/2021 07/19/2021 Inactive Xarelto 10 mg tablet RxNorm: 2874661 Take 1 Tablet(s) Oral QD 06/2906/29/2021 Inactive Euthyrox 88 mcg tablet RxNorm: 148246 Take 1 tablet by mouth on ce daily 05/24/2021 05/24/2021 Inactive Effexor XR 37.5 mg capsule,extended release RxNorm: 528486 1 Capsule(s) Oral QAM 05/12/2021 07/27/2021 Inactive Xarelto 10 mg tablet RxNorm: 2223392 Take 1 tablet by [facility] once daily Take 1 Tablet(s) Oral QD 04/19/2021 04/19/2021 Inactive metoprolol succinate ER 50 mg tablet,extended release 24 hr RxNorm: 517549 1/2 Tablet(s) Oral two times a day 04/12/2021 04/12/2021 Inactive d ecrease in dose of 1/2 tablet twice daily metoprolol succinate ER 50 mg tablet,extended release 24 hr RxNorm: 223808 Take 1/2 (one-half) tablet by mouth twice daily 04/12/2021 10/11/2021 Inact beto simvastatin 20 mg tablet RxNorm: 065284 Take 1 Tablet(s) Oral QD 03/07/2021 Inactive prednisone 10 mg tablet RxNorm: 927490 Take 1 Tablet(s) Oral tw o times a day 03/01/2021 03/01/2021 Inactive triamcinolone acetonide 0.1 % topical cream RxNorm: 7353845 Apply 1 Application Topical two times a day 03/01/2021 03/01/2021 Inactive prednisone 10 mg tablet RxNorm: 917979 Take 1 Tablet(s) Oral tw o times a day 03/01/2021 03/03/2021 Inactive triamcinolone acetonide 0.1 % topical cream RxNorm: 9624525 Apply 1 Application Topical two times a day 03/01/2021 03/01/2021 Inactive Euthyrox 88 mcg tablet RxNorm: 309038 Take 1 tablet by mouth on ce daily 02/22/2021 02/22/2021 Inactive Effexor XR 37.5 mg capsule,extended release RxNorm: 653429 1 Capsule(s) Oral QAM 02/03/2021 02/02/2021 Inactive Effexor XR 37.5 mg capsule,extended release RxNorm: 445118 1 Capsule(s) Oral QAM 02/03/2021 04/03/2021 Inactive simvastatin 20 mg tablet RxNorm: 865199 Take 1 tablet by mouth once daily 1 01/25/2021 01/25/2021 Inactive Cardizem CD 120 mg capsule,extended release RxNorm: 646194 1 Capsule(s) Oral two times a day replaces 180mg dose 01/19/2021 01/19/2021 Inactive Protonix 40 mg tablet,delayed release RxNorm: 544862 1 Tablet(s ) Oral QD 01/17/2021 01/17/2021 Inactive Effexor XR 37.5 mg capsule,extended release RxNorm: 387814 1 Capsule(s) Oral QAM 01/04/2021 02/02/2021 Inactive scopolamine 1 mg over 3 days transdermal patch RxNorm: 18911 2 1 Application Transdermal behind ear for vertigo 01/04/2021 01/03/2021 Inactive scopolamine 1 mg over 3 days transdermal patch RxNorm: 45322 2 1 Application Transdermal behind ear for vertigo 01/04/2021 01/04/2021 Inactive metoprolol succinate ER 50 mg tablet,extended release 24 hr RxNorm: 205177 1/2 Tablet(s) Oral two times a day 12/29/2020 12/28/2020 Inactive metoprolol succinate ER 50 mg tablet,extended release 24 hr RxNorm: 836931 1/2 Tablet(s) Oral two times a day 12/29/2020 12/29/2020 Inactive d briaease in dose of 1/2 tablet twice daily Xarelto 10 mg tablet RxNorm: 9270712 Take 1 tablet by mouth once daily 12/29/2020 03/29/2021 Inactive Xarelto 10 mg tablet RxNorm: 3059426 Take 1 tablet by mouth once daily 11/26/2020 12/28/2020 Inactive simvastatin 20 mg tablet RxNorm: 523602 Take 1 tablet by mouth once daily 11/26/2020 01/24/2021 Inactive Synthroid 88 mcg tablet RxNorm: 681066 Take 1 tablet by mouth o nce daily 10/21/2020 10/21/2020 Inactive simvastatin 20 mg tablet RxNorm: 147182 Take 1 tablet by mouth once daily 09/30/2020 11/25/2020 Inactive Xarelto 10 mg tablet RxNorm: 7871240 Take 1 tablet by mouth once daily 08/26/2020 11/23/2020 Inactive metoprolol succinate ER 50 mg tablet,extended release 24 hr RxNorm: 090308 1 Tablet(s) Oral two times a day 08/05/2020 11/03/2020 Inactive simvastatin 20 mg tablet RxNorm: 587838 Take 1 tablet by mouth once daily 07/30/2020 09/27/2020 Inactive Synthroid 88 mcg tablet RxNorm: 676148 Take 1 tablet by mouth o nce daily 07/27/2020 10/20/2020 Inactive Protonix 40 mg tablet,delayed release RxNorm: 757025 1 Tablet(s ) Oral QD 07/26/2020 10/24/2020 Inactive Xarelto 10 mg tablet RxNorm: 4139471 1 Tablet(s) Oral QD 06/03/2020 1 10/26/2019 Inactive Cardizem CD 120 mg capsule,extended release RxNorm: 825821 1 Capsule(s) Oral two times a day replaces 180mg dose 05/11/2020 11/07/2020 Inactive Pradaxa 75 mg capsule RxNorm: 5954662 1 Capsule(s) Oral two time s a day 05/11/2020 05/11/2020 Inactive meclizine 25 mg tablet RxNorm: 464165 1 Tablet(s) Oral every ni ght at bedtime 05/05/2020 10/11/2021 Inactive simvastatin 20 mg tablet RxNorm: 907253 Take 1 tablet by mouth once daily 05/04/2020 05/10/2020 Inactive simvastatin 20 mg tablet RxNorm: 275230 TAKE 1 TABLET BY MOUTH ONCE DAILY 04/29/2020 09/19/2020 Inactive Synthroid 88 mcg tablet RxNorm: 549503 TAKE 1 TABLET BY MOUTH O NCE DAILY 04/20/2020 07/18/2020 Inactive diltiazem CD 180 mg capsule,extended release 24 hr RxNorm: 8 84834 TAKE 1 CAPSULE BY MOUTH TWICE DAILY 04/05/2020 05/10/2020 Inactive simvastatin 20 mg tablet RxNorm: 937626 TAKE 1 TABLET BY MOUTH ONCE DAILY 02/24/2020 04/23/2020 Inactive aspirin 325 mg tablet RxNorm: 752745 1 Tablet(s) Oral QD 02/11/2020 0 05/10/2020 Inactive hydroxyzine HCl 10 mg tablet RxNorm: 851523 1 Tablet(s) Oral th ree times a day 01/28/2020 05/10/2020 Inactive diltiazem CD 180 mg capsule,extended release 24 hr RxNorm: 8 70568 TAKE 1 CAPSULE BY MOUTH TWICE DAILY 01/19/2020 04/04/2020 Inactive spironolactone 25 mg tablet RxNorm: 765845 1 Tablet(s) Oral QOD replaces Triam/HCTZ 01/15/2020 01/14/2020 Inactive spironolactone 25 mg tablet RxNorm: 994202 1 Tablet(s) Oral QOD replaces Triam/HCTZ 01/15/2020 01/26/2020 Inactive prednisone 20 mg tablet RxNorm: 220521 1 Tablet(s) Oral QD 01/12/20 20 01/14/2020 Inactive prednisone 20 mg tablet RxNorm: 517176 1 Tablet(s) Oral QD 01/12/20 20 01/11/2020 Inactive Benadryl 25 mg capsule RxNorm: 7408966 1 Capsule(s) Oral every n ight at bedtime 01/08/2020 05/10/2020 Inactive Pepcid 20 mg tablet RxNorm: 446240 1 Tablet(s) Oral two times a day 01/08/2020 07/25/2020 Inactive [place] Original 0.5 %-0.5 % lotion RxNorm: 525174 Topical 0 10/11/2021 Inactive Zyrtec 10 mg tablet RxNorm: 9045373 1 Tablet(s) Oral QAM 01/08/2020 0 05/10/2020 Inactive metoprolol succinate ER 50 mg tablet,extended release 24 hr RxNorm: 282001 1 Tablet(s) Oral two times a day 01/05/2020 04/04/2020 Inactive Protonix 40 mg tablet,delayed release RxNorm: 720505 TA KE 1 TABLET BY MOUTH ONCE DAILY 12/29/2019 05/10/2020 Inactive triamterene 37.5 mg-hydrochlorothiazide 25 mg tablet RxNorm: 623594 TAKE 1/2 (ONE-HALF) TABLET BY MOUTH EVERY OTHER DAY 12/24/2019 01/14/2020 Inact beto triamterene 37.5 mg-hydrochlorothiazide 25 mg tablet RxNorm: 877408 1/2 Tablet(s) Oral QD 12/12/2019 01/26/2020 Inactive diltiazem CD 180 mg capsule,extended release 24 hr RxNorm: 8 69469 TAKE 1 CAPSULE BY MOUTH TWICE DAILY 12/03/2019 01/18/2020 Inactive Eliquis 2.5 mg tablet RxNorm: 8141400 1 Tablet(s) Oral two times a day 11/25/2019 02/10/2020 Inactive simvastatin 20 mg tablet RxNorm: 976301 TAKE 1 TABLET BY MOUTH ONCE DAILY 11/25/2019 02/22/2020 Inactive triamterene 37.5 mg-hydrochlorothiazide 25 mg tablet RxNorm: 392234 1/2 Tablet(s) Oral QOD 11/06/2019 12/11/2019 Inactive triamterene 37.5 mg-hydrochlorothiazide 25 mg tablet RxNorm: 417200 1/2 Tablet(s) Oral QD 10/22/2019 10/28/2019 Inactive meclizine 25 mg tablet RxNorm: 608355 1 Tablet(s) Oral every ni ght at bedtime 10/20/2019 11/19/2019 Inactive Synthroid 88 mcg tablet RxNorm: 829035 TAKE 1 TABLET BY MOUTH O NCE DAILY 10/20/2019 10/21/2019 Inactive scopolamine 1 mg over 3 days transdermal patch RxNorm: 42615 2 1 Unit Dose Transdermal Q72H for vertigo 10/14/2019 01/04/2020 Inactive scopolamine 1 mg over 3 days transdermal patch RxNorm: 73092 2 1 Unit Dose Transdermal Q72H for vertigo 10/14/2019 10/14/2019 Inactive Celebrex 200 mg capsule RxNorm: 567076 TAKE 1 CAPSULE BY MOUTH ONCE DAILY 10/12/2019 10/28/2019 Inactive triamterene 37.5 mg-hydrochlorothiazide 25 mg tablet RxNorm: 895955 1 Tablet(s) Oral QAM 10/06/2019 10/21/2019 Inactive diltiazem CD 180 mg capsule,extended release 24 hr RxNorm: 8 60170 1 Capsule(s) Oral two times a day 10/01/2019 11/29/2019 Inactive simvastatin 20 mg tablet RxNorm: 318008 TAKE 1 TABLET BY MOUTH ONCE DAILY 10/01/2019 10/01/2019 Inactive Patient will need to have fasting labs done before next refill Protonix 40 mg tablet,delayed release RxNorm: 772341 TA KE 1 TABLET BY MOUTH ONCE DAILY 09/28/2019 12/26/2019 Inactive diltiazem CD 180 mg capsule,extended release 24 hr RxNorm: 8 58286 1 Capsule(s) Oral two times a day 08/11/2019 08/10/2019 Inactive diltiazem CD 180 mg capsule,extended release 24 hr RxNorm: 8 13981 1 Capsule(s) Oral two times a day 08/11/2019 09/30/2019 Inactive diltiazem CD 120 mg capsule,extended release 24 hr RxNorm: 8 10610 1 Capsule(s) Oral two times a day 07/23/2019 08/10/2019 Inactive Celebrex 200 mg capsule RxNorm: 669556 1 Capsule(s) Oral QD 019 07/08/2019 Inactive Celebrex 200 mg capsule RxNorm: 587009 1 Capsule(s) Oral QD 019 10/07/2019 Inactive diltiazem CD 120 mg capsule,extended release 24 hr RxNorm: 8 23505 1 Capsule(s) Oral QAM 07/07/2019 07/22/2019 Inactive Eliquis 2.5 mg tablet RxNorm: 1284206 1 Tablet(s) Oral two times a day 07/07/2019 11/04/2019 Inactive metoprolol succinate ER 50 mg tablet,extended release 24 hr RxNorm: 873097 1 Tablet(s) Oral QAM and 2 tablets in the evening 06/30/2019 08/05/2020 Inactive hydrochlorothiazide 25 mg tablet RxNorm: 862793 1 Tablet(s) PO QD 1 07/06/2019 Inactive hydrochlorothiazide 25 mg tablet RxNorm: 560726 1 Tablet(s) PO QD 0 05/08/2019 05/07/2019 Inactive patient needs to follow up i n 2 months and continue BP readings at home hydrochlorothiazide 25 mg tablet RxNorm: 590234 1 Tablet(s) PO QD 0 05/08/2019 06/25/2019 Inactive patient needs to follow up i n 2 months and continue BP readings at home metoprolol succinate ER 50 mg tablet,extended release 24 hr RxNorm: 828545 1 Tablet(s) PO QAM and 2 tablets in the evening 05/08/2019 06/29/2019 In active hydrochlorothiazide 12.5 mg tablet RxNorm: 026344 1 Tablet(s) PO QA M 04/15/2019 05/07/2019 Inactive Synthroid 88 mcg tablet RxNorm: 818037 TAKE 1 TABLET BY MOUTH O NCE DAILY 04/14/2019 10/19/2019 Inactive Protonix 40 mg tablet,delayed release RxNorm: 750765 TA KE 1 TABLET BY MOUTH ONCE DAILY 03/24/2019 09/27/2019 Inactive simvastatin 20 mg tablet RxNorm: 158797 TAKE 1 TABLET BY MOUTH ONCE DAILY 03/24/2019 09/30/2019 Inactive losartan 100 mg tablet RxNorm: 391475 1/2 Tablet(s) PO QD 2019 04/14/2019 Inactive Cozaar 50 mg tablet RxNorm: 585244 1 Tablet(s) PO QHS 01/28/201903/25 Inactive Celebrex 200 mg capsule RxNorm: 144419 TAKE 1 CAPSULE BY MOUTH ONCE DAILY 01/10/2019 07/08/2019 Inactive Protonix 40 mg tablet,delayed release RxNorm: 756065 TA KE 1 TABLET BY MOUTH ONCE DAILY 12/23/2018 03/23/2019 Inactive metoprolol succinate ER 50 mg tablet,extended release 24 hr RxNorm: 783629 1.5 Tablet(s) PO BID 12/03/2018 04/14/2019 Inactive Synthroid 88 mcg tablet RxNorm: 033524 1 Tablet(s) PO QD 10/24/2018 0 04/13/2019 Inactive simvastatin 20 mg tablet RxNorm: 829859 1 Tablet(s) PO QD 09/27/2018 12/25/2018 Inactive simvastatin 20 mg tablet RxNorm: 957335 1 Tablet(s) PO QD 09/26/2018 09/26/2018 Inactive Cozaar 50 mg tablet RxNorm: 831486 1 Tablet(s) PO QHS 09/09/20180 02/2019 Inactive Cozaar 50 mg tablet RxNorm: 061486 1 Tablet(s) PO QHS 09/09/201808/24 Inactive metoprolol succinate ER 50 mg tablet,extended release 24 hr RxNorm: 037646 1.5 Tablet(s) PO BID 09/02/2018 11/30/2018 Inactive Cozaar 50 mg tablet RxNorm: 561748 1 Tablet(s) PO QHS 05/24/201808/24 Inactive Cozaar 25 mg tablet RxNorm: 357625 1 Tablet(s) PO QAM 05/10/201804/25 Inactive clonidine HCl 0.1 mg tablet RxNorm: 324231 1 Tablet(s) PO TID as needed for BP greater than 160/95 05/10/2018 05/20/2018 Inactive betamethasone dipropionate 0.05 % topical cream RxNorm: 2389 20 1 Application TOP BID 05/06/2018 11/25/2018 Inactive prednisone 20 mg tablet RxNorm: 712747 1 Tablet(s) PO QD 05/06/2018 0 05/05/2018 Inactive prednisone 20 mg tablet RxNorm: 643848 1 Tablet(s) PO QD 05/06/2018 0 05/10/2018 Inactive metoprolol succinate ER 50 mg tablet,extended release 24 hr RxNorm: 356914 1.5 Tablet(s) PO BID 05/06/2018 09/01/2018 Inactive Flonase Allergy Relief 50 mcg/actuation nasal spray,suspensi on RxNorm: 8757693 2 [place] NASAL QHS 05/03/2018 11/25/2018 Inactive Celebrex 200 mg capsule RxNorm: 913365 TAKE ONE CAPSULE BY MOUT H ONCE DAILY 04/30/2018 05/02/2018 Inactive Celebrex 200 mg capsule RxNorm: 920490 1 Capsule(s) PO QD TAKE ONE CAPSULE BY MOUTH ONCE DAILY 04/30/2018 05/02/2018 Inactive Synthroid 88 mcg tablet RxNorm: 184499 1 Tablet(s) PO QD 03/12/2018 1 11/08/2017 Inactive acyclovir 5 % topical ointment RxNorm: 429002 1 Unit Dose TOP Q 6H as needed 03/05/2018 11/25/2018 Inactive Protonix 40 mg tablet,delayed release RxNorm: 476306 1 Tablet(s ) PO QD 12/17/2017 12/22/2018 Inactive simvastatin 20 mg tablet RxNorm: 687824 TAKE ONE TABLET BY MOUT H ONCE DAILY 12/17/2017 09/27/2018 Inactive Celebrex 200 mg capsule RxNorm: 345371 TAKE ONE CAPSULE BY MOUT H ONCE DAILY 10/30/2017 04/29/2018 Inactive Synthroid 88 mcg tablet RxNorm: 717796 1 Tablet(s) PO QD 09/19/2017 0 03/12/2018 Inactive Synthroid 88 mcg tablet RxNorm: 744623 1 Tablet(s) PO QD Needs updated labs 09/19/2017 10/24/2018 Inactive Synthroid 88 mcg tablet RxNorm: 906943 1 Tablet(s) PO QD 06/20/2017 1 11/18/2016 Inactive simvastatin 20 mg tablet RxNorm: 134211 1 Tablet(s) PO QD 06/15/2017 09/12/2017 Inactive simvastatin 20 mg tablet RxNorm: 433812 1 Tablet(s) PO QD 06/15/2017 06/14/2017 Inactive metoprolol succinate ER 25 mg tablet,extended release 24 hr RxNorm: 933098 1 Tablet(s) PO QD 06/14/2017 07/23/2017 Inactive Valtrex 1 gram tablet RxNorm: 703435 1 Tablet(s) PO TID 06/01/2017 Inactive Celebrex 200 mg capsule RxNorm: 220159 1 Capsule(s) PO QD 05/01/2017 10/27/2017 Inactive Toprol XL 25 mg tablet,extended release RxNorm: 995129 1/2 Tabl et(s) PO QD 04/12/2017 06/13/2017 Inactive simvastatin 20 mg tablet RxNorm: 585030 1 Tablet(s) PO QD 03/19/2017 06/14/2017 Inactive Synthroid 88 mcg tablet RxNorm: 239600 1 Tablet(s) PO QD 03/14/2017 0 06/20/2017 Inactive aspirin 81 mg chewable tablet RxNorm: 006981 1 Tablet(s) PO QD 12/2404/21/2018 Inactive simvastatin 20 mg tablet RxNorm: 865196 TAKE ONE TABLET BY MOUT H ONCE DAILY 12/19/2016 03/19/2017 Inactive gabapentin 300 mg capsule RxNorm: 648519 1 Capsule(s) PO QHS 201603/29/2017 Inactive Protonix 40 mg tablet,delayed release RxNorm: 104570 TA KE ONE TABLET BY MOUTH ONCE DAILY 12/14/2016 12/08/2017 Inactive Flonase Allergy Relief 50 mcg/actuation nasal spray,suspensi on RxNorm: 0950059 2 [place] NASAL QHS 11/02/2016 12/17/2016 Inactive clotrimazole-betamethasone 1 %-0.05 % topical cream RxNorm: 077695 1 Application TOP BID 11/02/2016 11/01/2016 Inactive clotrimazole-betamethasone 1 %-0.05 % topical cream RxNorm: 867042 1 Application TOP BID 11/02/2016 12/17/2016 Inactive Tessalon Perles 100 mg capsule RxNorm: 613694 1 Capsule(s) PO TID 0 11/02/2016 12/17/2016 Inactive amoxicillin 500 mg tablet RxNorm: 539500 1 Tablet(s) PO TID 017 11/01/2016 Inactive Toprol XL 25 mg tablet,extended release RxNorm: 268267 TAKE ONE-HALF TABLET BY MOUTH ONCE DAILY 10/19/2016 04/12/2017 Inactive Toprol XL 25 mg tablet,extended release RxNorm: 215256 1/2 Tablet(s) PO QD Due for routine fasting labs and appointment 10/19/2016 01/16/2017 Inactiv e gabapentin 600 mg tablet RxNorm: 007307 1 Tablet(s) PO QHS 07/24/20 16 12/17/2016 Inactive gabapentin 600 mg tablet RxNorm: 686108 TAKE ONE TABLET BY MOUT H AT BEDTIME 07/24/2016 07/23/2016 Inactive simvastatin 20 mg tablet RxNorm: 371046 TAKE ONE TABLET BY MOUT H ONCE DAILY 06/15/2016 12/11/2016 Inactive Celebrex 200 mg capsule RxNorm: 713333 1 Capsule(s) PO QD 05/10/2016 05/01/2017 Inactive Celebrex 200 mg capsule RxNorm: 589812 1 Capsule(s) PO QD 05/09/2016 05/09/2016 Inactive Synthroid 88 mcg tablet RxNorm: 227725 Tablet(s) 1 Tablet(s) PO QD 03/21/2016 09/16/2016 Inactive Synthroid 88 mcg tablet RxNorm: 574237 1 Tablet(s) PO QD 03/20/2016 0 03/20/2016 Inactive simvastatin 20 mg tablet RxNorm: 579747 TAKE ONE TABLET BY MOUT H ONCE DAILY 03/06/2016 06/03/2016 Inactive meclizine 25 mg tablet RxNorm: 354368 1 Tablet(s) PO TID as nee ded dizziness 02/07/2016 12/17/2016 Inactive Zofran ODT 4 mg disintegrating tablet RxNorm: 924520 1 Tablet(s) PO Q6H as needed for nausea 02/07/2016 12/17/2016 Inactive gabapentin 600 mg tablet RxNorm: 249965 TAKE ONE TABLET BY MOUT H AT BEDTIME 01/20/2016 07/17/2016 Inactive Synthroid 88 mcg tablet RxNorm: 629309 1 Tablet(s) PO QD 12/27/2015 0 03/19/2016 Inactive simvastatin 20 mg tablet RxNorm: 966748 1 Tablet(s) PO QD 12/06/2015 03/04/2016 Inactive Protonix 40 mg tablet,delayed release RxNorm: 220923 1 Tablet(s ) PO QD 12/06/2015 12/13/2016 Inactive Celebrex 200 mg capsule RxNorm: 601490 1 Capsule(s) PO QD 11/03/2015 05/10/2016 Inactive Celebrex 200 mg capsule RxNorm: 486796 1 Capsule(s) PO QD 11/03/2015 11/02/2015 Inactive simvastatin 20 mg tablet RxNorm: 243529 1 Tablet(s) PO QD 09/06/2015 12/04/2015 Inactive Gralise 600 mg tablet,extended release RxNorm: 4993342 1 Tablet( s) PO QD 08/23/2015 10/18/2015 Inactive Synthroid 88 mcg tablet RxNorm: 973231 1 Tablet(s) PO QD 06/30/2015 0 09/27/2015 Inactive simvastatin 20 mg tablet RxNorm: 015220 1 Tablet(s) PO QD 06/07/2015 09/04/2015 Inactive Synthroid 88 mcg tablet RxNorm: 112632 1 Tablet(s) PO QD 06/07/2015 1 Inactive Celebrex 200 mg capsule RxNorm: 523862 1 Capsule(s) PO QD 06/07/2015 11/02/2015 Inactive Protonix 40 mg tablet,delayed release RxNorm: 340065 1 Tablet(s ) PO QD 06/07/2015 12/03/2015 Inactive Toprol XL 25 mg tablet,extended release RxNorm: 958881 1/2 Tabl et(s) PO QD 04/13/2015 10/09/2015 Inactive [SAVINGS FOR UNINSUR ED PATIENTS -- BIN:[id number], PCN: ASPROD1, Group: [id number], ID# [id number], Process claim through [employer], for questions: . THIS IS NOT INSURANCE.] Synthroid 88 mcg tablet RxNorm: 382968 1 Tablet(s) PO Q D TAKE ONE TABLET BY MOUTH ONCE DAILY 03/29/2015 06/30/2015 Inactive Celebrex 200 mg capsule RxNorm: 449472 1 Capsule(s) PO QD 03/22/2015 06/06/2015 Inactive Celebrex 200 mg capsule RxNorm: 268563 1 Capsule(s) PO QD 02/22/2015 03/21/2015 Inactive Celebrex 200 mg capsule RxNorm: 077331 1 Capsule(s) PO QD 01/21/2015 02/21/2015 Inactive Synthroid 88 mcg tablet RxNorm: 600956 1 Tablet(s) PO Q D TAKE ONE TABLET BY MOUTH ONCE DAILY 12/21/2014 03/29/2015 Inactive meloxicam 15 mg tablet RxNorm: 642211 1 Tablet(s) PO QD 12/09/2014 Inactive [SAVINGS FOR NON-COVERED DRUGS -- BIN:00 [id number], PCN: ASPROD1, Group: [id number], ID# [id number], Questions: . THIS IS NOT INSURANCE.] Protonix 40 mg tablet,delayed release RxNorm: 859341 1 Tablet(s ) PO QD 12/08/2014 06/05/2015 Inactive Protonix 40 mg tablet,delayed release RxNorm: 875384 1 Tablet(s ) PO QD 12/07/2014 12/07/2014 Inactive simvastatin 20 mg tablet RxNorm: 271634 TAKE ONE TABLET BY MOUT H ONCE DAILY 11/30/2014 05/28/2015 Inactive clotrimazole-betamethasone 1 %-0.05 % topical cream RxNorm: 3087 14 TOP BID 11/30/2014 11/01/2016 Inactive acetic acid 2 % ear solution RxNorm: 313603 5 Drop(s) OTIC Left ear QID 11/30/2014 12/06/2014 Inactive meloxicam 15 mg tablet RxNorm: 627001 1 Tablet(s) PO QD 10/30/2014 Inactive [SAVINGS FOR NON-COVERED DRUGS -- BIN:00 3585, PCN: [id number], Group: [id number], ID# [id number], Questions: . THIS IS NOT INSURANCE.] meloxicam 15 mg tablet RxNorm: 859558 1 Tablet(s) PO QD 10/30/2014 Inactive Toprol XL 25 mg tablet,extended release RxNorm: 709451 1/2 Tabl et(s) PO QD 10/12/2014 04/09/2015 Inactive [SAVINGS FOR UNINSUR ED PATIENTS -- BIN:[id number], PCN: [id number], Group: [id number], ID# [id number], Process claim through [employer], for questions: . THIS IS NOT INSURANCE.] Synthroid 88 mcg tablet RxNorm: 286794 1 Tablet(s) PO Q D TAKE ONE TABLET BY MOUTH ONCE DAILY 09/21/2014 12/19/2014 Inactive Protonix 40 mg tablet,delayed release RxNorm: 266374 1 Tablet(s ) PO QD 07/23/2014 11/19/2014 Inactive Synthroid 88 mcg tablet RxNorm: 439903 TAKE ONE TABLET BY MOUTH ONCE DAILY 06/23/2014 09/21/2014 Inactive omeprazole 40 mg capsule,delayed release RxNorm: 141904 1 Capsu le(s) PO QD 06/16/2014 07/22/2014 Inactive [SAVINGS FOR UNINSUR ED PATIENTS -- BIN:[id number], PCN: [id number], Group: [id number], ID# [id number], Process claim through [facility], for questions: . THIS IS NOT INSURANCE.] Toprol XL 25 mg tablet,extended release RxNorm: 767865 1/2 Tabl et(s) PO QD 04/13/2014 10/12/2014 Inactive Celebrex 200 mg capsule RxNorm: 546060 1 Capsule(s) PO QD for pain 03/16/2014 10/29/2014 Inactive Medrol ([place]) 4 mg tablets in a dose pack RxNorm: 166034 Tablet(s) PO as directed 03/09/2014 07/22/2014 Inactive Synthroid 88 mcg tablet RxNorm: 654049 1 Tablet(s) PO QD 02/17/2014 0 06/23/2014 Inactive Celebrex 200 mg capsule RxNorm: 328938 1 Capsule(s) PO QD for pain 02/17/2014 03/15/2014 Inactive omeprazole 40 mg capsule,delayed release RxNorm: 841874 1 Capsu le(s) PO QD 02/05/2014 06/16/2014 Inactive Protonix 40 mg tablet,delayed release RxNorm: 992705 1 Tablet(s ) PO QD 01/23/2014 05/10/2020 Inactive Toprol XL 25 mg tablet,extended release RxNorm: 901042 1/2 Tablet(s) PO QD TAKE ONE-HALF TABLET BY MOUTH EVERY DAY 01/12/2014 04/13/2014 Inactive Synthroid 88 mcg tablet RxNorm: 753828 Tablet(s) PO MADNY E ONE TABLET BY MOUTH EVERY DAY 11/17/2013 02/17/2014 Inactive Celebrex 200 mg capsule RxNorm: 373959 1 Capsule(s) PO QD for pain 10/20/2013 02/17/2014 Inactive Toprol XL 25 mg tablet,extended release RxNorm: 998328 1/2 Tabl et(s) PO QD 07/17/2013 01/12/2014 Inactive Nexium 40 mg capsule,delayed release RxNorm: 629832 1 C apsule(s) PO QD Generic ok 07/14/2013 09/21/2013 Inactive Celebrex 200 mg capsule RxNorm: 020814 1 Capsule(s) PO QD for pain 06/19/2013 10/20/2013 Inactive Synthroid 88 mcg tablet RxNorm: 737421 1 Tablet(s) PO QD 05/13/2013 0 11/17/2013 Inactive TAKE ONE TABLET BY MOUTH EVERY DAY Nexium 40 mg capsule,delayed release RxNorm: 640311 Cap maureen(s) PO TAKE ONE CAPSULE BY MOUTH EVERY DAY 05/05/2013 07/13/2013 Inactive Celebrex 200 mg capsule RxNorm: 079215 1 Capsule(s) PO QD for pain 04/07/2013 06/19/2013 Inactive Esgic-Plus 50 mg-500 mg-40 mg capsule RxNorm: 395586 1 Capsule(s) PO Q4-6H prn headache 04/07/2013 04/07/2013 Inactive Toprol XL 25 mg tablet,extended release RxNorm: 543624 1/2 Tabl et(s) PO QD 12/16/2012 06/13/2013 Inactive Nexium 40 mg capsule,delayed release RxNorm: 614512 1 Capsule(s ) PO QD 11/20/2012 03/19/2013 Inactive Synthroid 88 mcg tablet RxNorm: 656619 1 Tablet(s) PO QD 10/28/2012 0 04/25/2013 Inactive TAKE ONE TABLET BY MOUTH EVERY DAY Toprol XL 25 mg tablet,extended release RxNorm: 314766 1/2 Tabl et(s) PO QD 09/25/2012 12/16/2012 Inactive Synthroid 88 mcg tablet RxNorm: 831157 1 Tablet(s) PO QD 04/22/2012 0 10/28/2012 Inactive TAKE ONE TABLET BY MOUTH EVERY DAY Nexium 40 mg capsule,delayed release RxNorm: 445410 1 Capsule(s ) PO QD 04/16/2012 11/20/2012 Inactive Esgic-Plus 50 mg-500 mg-40 mg capsule RxNorm: 255194 1 Capsule(s) PO Q4-6H prn headache 03/28/2012 04/06/2013 Inactive Toprol XL 25 mg tablet,extended release RxNorm: 004621 1/2 Tabl et(s) PO QD 03/07/2012 09/25/2012 Inactive Toprol XL 25 mg 24 hr Tab RxNorm: 204013 1/2 Tablet(s) PO QD 201101/03/2012 Inactive Three times a week Synthroid 88 mcg Tab RxNorm: 297618 1 Tablet(s) PO QD 10/10/201112/23 Inactive TAKE ONE TABLET BY MOUTH EVERY DAY prednisone 20 mg Tab RxNorm: 787006 1 Tablet(s) PO BID 09/13/2011 Inactive doxycycline 100 mg Cap RxNorm: 4761554 1 Capsule(s) PO BID 09/13/2009/22/2011 Inactive cefdinir 300 mg Cap RxNorm: 716665 1 Capsule(s) PO BID 08/07/2011 Inactive Synthroid 88 mcg Tab RxNorm: 197594 1 Tablet(s) PO QD 07/19/201109/24 Inactive TAKE ONE TABLET BY MOUTH EVERY DAY Synthroid 88 mcg Tab RxNorm: 469085 1 Tablet(s) PO QD 07/19/201103/26 Inactive TAKE ONE TABLET BY MOUTH EVERY DAY Synthroid 88 mcg Tab RxNorm: 522512 1 Tablet(s) PO QD 07/18/201106/25 Inactive TAKE ONE TABLET BY MOUTH EVERY DAY Synthroid 88 mcg Tab RxNorm: 310359 1 Tablet(s) PO QD 05/15/201106/25 Inactive TAKE ONE TABLET BY MOUTH EVERY DAY Synthroid 88 mcg Tab RxNorm: 840091 1 Tablet(s) PO QD 03/15/201104/25 Inactive Synthroid 75 mcg Tab RxNorm: 177130 1 Tablet(s) PO QD 01/04/201102/22 Inactive Synthroid 50 mcg Tab RxNorm: 503579 1 Tablet(s) PO QD G eneric okay. Please explain to patient that she may see more variation in her thyroid labs and increased symptoms. 07/07/2010 03/14/2011 Inactive Prednisone 20 mg Tab RxNorm: 805090 1 Tablet(s) PO BID 02/14/2010 Inactive Flexeril 10 mg Tab RxNorm: 574937 1 Tablet(s) PO TID 02/07/201002/13 Inactive Synthroid 25 mcg Tab RxNorm: 543607 1 Tablet(s) PO QD 12/29/200902/23 Inactive Synthroid 50 mcg Tab RxNorm: 247418 1 Tablet(s) PO QD 12/29/2009/0 11/2009 Inactive Vitamin D3 2,000 unit tablet RxNorm: 399738 1 Tablet(s) PO QAM 2014 Active coenzyme Q10 200 mg tablet RxNorm: 949577 1 Tablet(s) PO QD 09/01/2014 Active Trelegy Ellipta inhalation RxNorm: 3000887 inhalation 05/30/2022 Active Vitamin B12 1000mcg Tablet RxNorm: 1/2 Tablet(s) PO QD 04/03/2017 Active gabapentin 600 mg tablet RxNorm: 396672 1 Tablet(s) PO QPM 01/20/20 16 01/19/2016 Inactive Fish Oil 1,000 mg capsule RxNorm: 1 Capsule(s) PO QHS 10/18/2017 0 10/17/2017 Inactive Toprol XL 25 mg 24 hr Tab RxNorm: 890680 1/2 Tablet(s) PO QD 201103/06/2012 Inactive turmeric root extract oral RxNorm: 9740051 oral 05/26/20152014 Inactive Esgic 50 mg-325 mg-40 mg tablet RxNorm: 981680 1 Tablet (s) PO Q4H as needed for pain 05/26/2015 05/25/2015 Inactive Synthroid 88 mcg Tab RxNorm: 285150 1 Tablet(s) PO QD 03/15/201102/23 Inactive Calcium with Vitamin D 600 mg-400 unit Tab RxNorm: 660120 1 Tab let(s) PO BID 03/31/2013 03/30/2013 Inactive Synthroid 50 mcg Tab RxNorm: 425376 1 Tablet(s) PO QD 03/16/201002/23 Inactive Celebrex 200 mg capsule RxNorm: 331007 1 Capsule(s) PO QD 01/21/2015 01/20/2015 Inactive betamethasone dipropionate 0.05 % topical cream RxNorm: 2389 20 1 Application TOP BID 05/06/2018 05/05/2018 Inactive Protonix 40 mg tablet,delayed release RxNorm: 474824 1 Tablet(s ) PO QD 01/23/2014 01/23/2014 Inactive Calcium + D 600 mg (1,500)-200 unit Tab RxNorm: 599389 1 Tablet (s) PO QD 01/04/2011 01/03/2011 Inactive simvastatin 20 mg tablet RxNorm: 082400 1 Tablet(s) PO QD 11/30/2014 11/29/2014 Inactive Fish Oil 1,000 mg capsule RxNorm: 2 Capsule(s) PO QD 05/26/2015 Inactive Gralise 600 mg tablet,extended release RxNorm: 1657233 1 Tablet( s) PO QD 08/23/2015 08/22/2015 Inactive Vitamin B12 1000mcg Tablet RxNorm: 1 Tablet(s) PO QD 04/03/2017 Inactive Esgic-Plus 50 mg-500 mg-40 mg Cap RxNorm: 459754 1 Caps ule(s) PO Q4-6H prn headache 03/28/2012 03/27/2012 Inactive Cozaar 50 mg tablet RxNorm: 861699 1 Tablet(s) PO QHS 05/24/201804/26 Inactive Toprol XL 25 mg 24 hr Tab RxNorm: 670988 2 Tablet(s) PO Three t imes a week 01/01/2012 12/31/2011 Inactive metoprolol succinate ER 25 mg tablet,extended release 24 hr RxNorm: 777556 1 Tablet(s) PO TID 10/18/2017 10/17/2017 Inactive metoprolol succinate ER 50 mg tablet,extended release 24 hr RxNorm: 808152 1.5 Tablet(s) PO QAM and tablet at bedtime 05/06/2018 05/05/2018 Inactive Esgic-Plus 50 mg-500 mg-40 mg Cap RxNorm: 742982 1 Capsule(s) P O Q4-6H 08/07/2011 08/06/2011 Inactive metoprolol succinate ER 50 mg tablet,extended release 24 hr RxNorm: 345668 1 Tablet(s) PO QD 04/22/2018 04/21/2018 Inactive Multivitamin & Mineral Formula Tab RxNorm: 1 Tablet(s) PO QD 0 03/31/2013 03/30/2013 Inactive metoprolol succinate ER 50 mg tablet,extended release 24 hr RxNorm: 007428 2 Tablet(s) PO QAM and 1.5 tablets (75mg) at bedtime 05/01/2019 9 Inactive Fish Oil 1,000 mg Cap RxNorm: 1 Capsule(s) PO QD 03/31/20132012 Inactive pantoprazole 40 mg tablet,delayed release RxNorm: 593783 1 Tabl et(s) PO QD 02/05/2014 02/04/2014 Inactive Eliquis 2.5 mg tablet RxNorm: 9568038 1 Tablet(s) PO BID 07/07/2019 1 Inactive Medrol 4 mg Tab RxNorm: 092442 Tablet(s) PO as directed 03/28/2012 Inactive Synthroid 75 mcg Tab RxNorm: 392309 1 Tablet(s) PO QD 02/14/201001/23 Inactive aspirin 81 mg tablet RxNorm: 828909 1 Tablet(s) PO QD 05/26/201509/2014 Inactive meclizine 25 mg tablet RxNorm: 252947 1 Tablet(s) PO TID as needed 11/26/2018 11/25/2018 Inactive metoprolol succinate ER 50 mg tablet,extended release 24 hr RxNorm: 509495 1 Tablet(s) PO QAM and 2 tablets in the evening 05/08/2019 05/07/2019 In active Aspirin 81 mg Tab RxNorm: 455283 1 Tablet(s) PO QD 03/31/2013 013 Inactive Vitamin D3 1,000 unit capsule RxNorm: 406404 1 Capsule(s) PO QD 04/201303/30/2013 Inactive Medication Administered No Medication Administered data Immunizations Vaccine Codes Dose Date Status Pneumococcal CVX: 133 0.5 ml 05/26/2015 Results Observation Observation Code Item Item Code Result Date S ervice Location GLYCOSYLATED HEMOGLOBIN TEST 02183 Hgb A1c 07425-5 6.0 % 0 03/01/2022 Unknown MEAN GLUC 5224504 Calc Mean Gluc 126 mg/dL 03/01/2022 Unkn own COMPREHENSIVE METABOLIC 69432 AST 16 U/L 2021 Unknown COMPREHENSIVE METABOLIC 42562 ALT 15 U/L 2021 Unknown COMPREHENSIVE METABOLIC 84831 BUN 18 mg/dL 2021 Unknown COMPREHENSIVE METABOLIC 50727 ALBUMIN 4.3 g/dL 2021 Unknown COMPREHENSIVE METABOLIC 39645 CHLORIDE 104 mmol/L 02/28 Unknown COMPREHENSIVE METABOLIC 09874 Bili Total 0.8 mg/dL 02/28 Unknown COMPREHENSIVE METABOLIC 26831 ALK PHOS 93 U/L 2021 Unknown COMPREHENSIVE METABOLIC 50715 SODIUM 143 mmol/L 02/28 Unknown COMPREHENSIVE METABOLIC 21836 CREATININE 0.82 mg/dL 03/2022 Unknown COMPREHENSIVE METABOLIC 34193 CALCIUM 9.8 mg/dL 2021 Unknown COMPREHENSIVE METABOLIC 76238 POTASSIUM 4.2 mmol/L 02/28 Unknown COMPREHENSIVE METABOLIC 48734 Total Protein 7.7 g/dL Unknown COMPREHENSIVE METABOLIC 34746 Glucose 116 mg/dL 2021 Unknown COMPREHENSIVE METABOLIC 58143 Bicarbonate 26 mmol/L 03/2022 Unknown COMPREHENSIVE METABOLIC 35776 AGAP 13 mmol/L 2021 Unknown FREE T4 10815 T4 Free 1.15 ng/dL 02/28/2022 Unknown THYROID STIMULATING HORMONE 43489 TSH 3.512 uIU/mL 02/28/2022 Unknown LIPID GROUP 31231 Cholesterol 158 mg/dL 02/28/2022 Unkno wn LIP[facility] GROUP 28467 Triglyceride 78 mg/dL 02/28/2022 Unkn own LIPID GROUP 03588 HDL CHOLESTEROL 66 mg/dL 02/28/2022 U nknown LIPID GROUP 42298 Chol/HDL Ratio 2.39 ratio 02/28/2022 U nknown LIPID GROUP 74496 NON-HDL Chol 92 mg/dL 02/28/2022 Unkn own LIPID GROUP 29867 LDL Cholesterol 76 mg/dL 02/28/2022 U nknown COMPLETE BLOOD COUNT [id number] WBC 6.9 10e9/L 02/29/20 22 Unknown COMPLETE BLOOD COUNT [id number] RBC 4.61 10e12/L 2021 Unknown COMPLETE BLOOD COUNT [id number] HEMOGLOBIN 13.0 g/dL 02/29/20 22 Unknown COMPLETE BLOOD COUNT [id number] HEMATOCRIT 42.1 % 02/29/20 22 Unknown COMPLETE BLOOD COUNT [id number] MCV 91.3 fL 2 Unknown COMPLETE BLOOD COUNT [id number] MCH 28.2 pg 2 Unknown COMPLETE BLOOD COUNT 3232180 MCHC 30.9 g/dL 2 Unknown COMPLETE BLOOD COUNT [id number] PLATELET COUNT 276 10e9/L 03/2022 Unknown COMPLETE BLOOD COUNT [id number] Mean Plt Volume 10.6 fL 03/2022 Unknown COMPLETE BLOOD COUNT [id number] NRBC Absolute 0.00 10e9/L 03/2022 Unknown COMPLETE BLOOD COUNT [id number] Neut Auto 53.0 % 2 Unknown COMPLETE BLOOD COUNT 4683481 NRBC/100 WBC 0.0 2021 Unknown COMPLETE BLOOD COUNT [id number] Lymph Auto 32.0 % 02/29/20 22 Unknown COMPLETE BLOOD COUNT [id number] [place] Auto 11.0 % 2 Unknown COMPLETE BLOOD COUNT 1659276 RDW 14.4 % 2 Unknown COMPLETE BLOOD COUNT 6579693 Eos Auto 2.5 % 2 Unknown COMPLETE BLOOD COUNT 3973574 Baso Auto 1.4 % 2 Unknown COMPLETE BLOOD COUNT [id number] Neutrophil Abs 3.66 10e9/L Unknown COMPLETE BLOOD COUNT 1007575 Imm Gran Auto 0.1 % 02/28 Unknown COMPLETE BLOOD COUNT [id number] Lymphocyte Abs 2.21 10e9/L Unknown COMPLETE BLOOD COUNT [id number] Monocyte Abs 0.76 10e9/L 03/2022 Unknown COMPLETE BLOOD COUNT [id number] Eosinophil Abs 0.17 10e9/L Unknown COMPLETE BLOOD COUNT 8781515 RDW-SD 47.8 fL 2 Unknown COMPLETE BLOOD COUNT [id number] Basophil Abs 0.10 10e9/L 03/2022 Unknown COMPLETE BLOOD COUNT [id number] Imm Gran Abs 0.01 10e9/L 03/2022 Unknown GFR CALC 9948579 GFR >60 mL/min 02/28/2022 Unknown THYROID STIMULATING HORMONE 22738 TSH 3.017 uIU/mL 01/31/2021 Unknown COMPLETE BLOOD COUNT 2409939 WBC 6.1 10e9/L 02/01/20 21 Unknown COMPLETE BLOOD COUNT [id number] RBC 4.22 10e12/L 2020 Unknown COMPLETE BLOOD COUNT [id number] HEMOGLOBIN 12.1 g/dL 02/01/20 21 Unknown COMPLETE BLOOD COUNT [id number] HEMATOCRIT 39.5 % 02/01/20 21 Unknown COMPLETE BLOOD COUNT [id number] MCV 93.6 fL 1 Unknown COMPLETE BLOOD COUNT 6377041 MCH 28.7 pg 1 Unknown COMPLETE BLOOD COUNT 6589980 MCHC 30.6 g/dL 1 Unknown COMPLETE BLOOD COUNT [id number] PLATELET COUNT 271 10e9/L 06/2021 Unknown COMPLETE BLOOD COUNT 6584970 Mean Plt Volume 11.0 fL 06/2021 Unknown COMPLETE BLOOD COUNT 8760670 Neut Auto 57.3 % 1 Unknown COMPLETE BLOOD COUNT 5087102 Lymph Auto 28.3 % 02/01/20 21 Unknown COMPLETE BLOOD COUNT 8381630 [place] Auto 10.9 % 1 Unknown COMPLETE BLOOD COUNT 9889595 RDW 14.4 % 1 Unknown COMPLETE BLOOD COUNT 2432108 Eos Auto 2.8 % 1 Unknown COMPLETE BLOOD COUNT [id number] Baso Auto 0.7 % 1 Unknown COMPLETE BLOOD COUNT 1374104 Neutrophil Abs 3.50 10e9/L Unknown COMPLETE BLOOD COUNT [id number] Lymphocyte Abs 1.73 10e9/L Unknown COMPLETE BLOOD COUNT [id number] Monocyte Abs 0.66 10e9/L 01/22 Unknown COMPLETE BLOOD COUNT [id number] Eosinophil Abs 0.17 10e9/L Unknown COMPLETE BLOOD COUNT [id number] RDW-SD 47.4 fL 1 Unknown COMPLETE BLOOD COUNT [id number] Basophil Abs 0.04 10e9/L 01/22 Unknown GLYCOSYLATED HEMOGLOBIN TEST 88122 Hgb A1c 30410-6 5.9 % 0 01/31/2021 Unknown LIPID GROUP 08237 Cholesterol 151 mg/dL 01/31/2021 Unkno wn LIPID GROUP 73293 Triglyceride 68 mg/dL 01/31/2021 Unkn own LIPID GROUP 71931 HDL CHOLESTEROL 64 mg/dL 01/31/2021 U nknown LIPID GROUP 23156 Chol/HDL Ratio 2.36 ratio 01/31/2021 U nknown LIPID GROUP 23097 NON-HDL Chol 87 mg/dL 01/31/2021 Unkn own LIPID GROUP 73912 LDL Cholesterol 73 mg/dL 01/31/2021 U nknown MEAN GLUC 9570905 Calc Mean Gluc 123 mg/dL 01/31/2021 Unkn own FREE T4 35962 T4 Free 1.11 ng/dL 01/31/2021 Unknown COMPREHENSIVE METABOLIC 51209 AST 16 U/L 2020 Unknown COMPREHENSIVE METABOLIC 23852 ALT 12 U/L 2020 Unknown COMPREHENSIVE METABOLIC 43098 BUN 14 mg/dL 2020 Unknown COMPREHENSIVE METABOLIC 33211 ALBUMIN 4.3 g/dL 2020 Unknown COMPREHENSIVE METABOLIC 99041 CHLORIDE 106 mmol/L 01/31 Unknown COMPREHENSIVE METABOLIC 33166 Bili Total 0.9 mg/dL 01/31 Unknown COMPREHENSIVE METABOLIC 90613 ALK PHOS 96 U/L 2020 Unknown COMPREHENSIVE METABOLIC 41610 SODIUM 144 mmol/L 01/31 Unknown COMPREHENSIVE METABOLIC 21645 CREATININE 0.77 mg/dL 01/22 Unknown COMPREHENSIVE METABOLIC 69859 CALCIUM 9.4 mg/dL 2020 Unknown COMPREHENSIVE METABOLIC 17571 POTASSIUM 4.2 mmol/L 01/31 Unknown COMPREHENSIVE METABOLIC 31402 Total Protein 7.4 g/dL Unknown COMPREHENSIVE METABOLIC 31470 Glucose 94 mg/dL 2020 Unknown COMPREHENSIVE METABOLIC 96793 Bicarbonate 30 mmol/L 01/22 Unknown COMPREHENSIVE METABOLIC 86387 AGAP 8 mmol/L 2020 Unknown GFR CALC 3962130 GFR Non Afr Amr >60 mL/min 01/31/2021 Un known GFR CALC 2416682 GFR Afr Amr >60 mL/min 01/31/2021 Unknow n COMPLETE BLOOD COUNT 7594539 WBC 6.9 10e9/L 01/05/20 20 Unknown COMPLETE BLOOD COUNT [id number] RBC 4.20 10e12/L 2019 Unknown COMPLETE BLOOD COUNT 1429604 HEMOGLOBIN 12.2 g/dL 01/05/20 20 Unknown COMPLETE BLOOD COUNT [id number] HEMATOCRIT 39.2 % 01/05/20 20 Unknown COMPLETE BLOOD COUNT [id number] MCV 93.3 fL 0 Unknown COMPLETE BLOOD COUNT [id number] MCH 29.0 pg 0 Unknown COMPLETE BLOOD COUNT 2409614 MCHC 31.1 g/dL 0 Unknown COMPLETE BLOOD COUNT 9013801 PLATELET COUNT 272 10e9/L Unknown COMPLETE BLOOD COUNT 5462372 Mean Plt Volume 11.0 fL Unknown COMPLETE BLOOD COUNT 6093791 Neut Auto 61.4 % 0 Unknown COMPLETE BLOOD COUNT 4580995 Lymph Auto 22.4 % 01/05/20 20 Unknown COMPLETE BLOOD COUNT 7823012 [place] Auto 11.7 % 0 Unknown COMPLETE BLOOD COUNT 5225325 RDW 14.6 % 0 Unknown COMPLETE BLOOD COUNT 7817374 Eos Auto 3.6 % 0 Unknown COMPLETE BLOOD COUNT 8429203 Baso Auto 0.9 % 0 Unknown COMPLETE BLOOD COUNT 0433803 Neutrophil Abs 4.24 10e9/L Unknown COMPLETE BLOOD COUNT 3844531 Lymphocyte Abs 1.55 10e9/L Unknown COMPLETE BLOOD COUNT [id number] Monocyte Abs 0.81 10e9/L 12/23 Unknown COMPLETE BLOOD COUNT 9153799 Eosinophil Abs 0.25 10e9/L Unknown COMPLETE BLOOD COUNT 9978372 RDW-SD 48.2 fL 0 Unknown COMPLETE BLOOD COUNT 5087112 Basophil Abs 0.06 10e9/L 12/23 Unknown COMPREHENSIVE METABOLIC 31657 AST 17 U/L 2019 Unknown COMPREHENSIVE METABOLIC 73221 ALT 12 U/L 2019 Unknown COMPREHENSIVE METABOLIC 56631 BUN 18 mg/dL 2019 Unknown COMPREHENSIVE METABOLIC 61180 ALBUMIN 4.5 g/dL 2019 Unknown COMPREHENSIVE METABOLIC 39811 CHLORIDE 101 mmol/L 01/04 Unknown COMPREHENSIVE METABOLIC 61368 Bili Total 0.8 mg/dL 01/04 Unknown COMPREHENSIVE METABOLIC 15931 ALK PHOS 76 U/L 2019 Unknown COMPREHENSIVE METABOLIC 63330 SODIUM 141 mmol/L 01/04 Unknown COMPREHENSIVE METABOLIC 77268 CREATININE 1.02 mg/dL 12/23 Unknown COMPREHENSIVE METABOLIC 83488 CALCIUM 9.5 mg/dL 2019 Unknown COMPREHENSIVE METABOLIC 39402 POTASSIUM 3.9 mmol/L 01/04 Unknown COMPREHENSIVE METABOLIC 74602 Total Protein 7.4 g/dL Unknown COMPREHENSIVE METABOLIC 70143 Glucose 89 mg/dL 2019 Unknown COMPREHENSIVE METABOLIC 33205 Bicarbonate 28 mmol/L 12/23 Unknown COMPREHENSIVE METABOLIC 62042 AGAP 12 mmol/L 2019 Unknown LIPASE 95560 Lipase Lvl 34 IU/L 01/05/2020 Unknown THYROID STIMULATING HORMONE 98114 TSH 3.767 uIU/mL 01/05/2020 Unknown AMYLASE 06863 Amylase Lvl 60 IU/L 01/05/2020 Unknown GFR CALC 2307040 GFR Non Afr Amr 52 mL/min 01/05/2020 Unk nown GFR CALC 0342360 GFR Afr Amr >60 mL/min 01/05/2020 Unknow n FREE T4 93815 T4 Free 1.11 ng/dL 01/05/2020 Unknown GFR CALC 1627453 GFR Non Afr Amr 59 mL/min 12/05/2019 Unk nown GFR CALC 4460225 GFR Afr Amr >60 mL/min 12/05/2019 Unknow n COMPREHENSIVE METABOLIC 71319 AST 15 U/L 2019 Unknown COMPREHENSIVE METABOLIC 02173 ALT 12 U/L 2019 Unknown COMPREHENSIVE METABOLIC 25406 BUN 19 mg/dL 2019 Unknown COMPREHENSIVE METABOLIC 79115 ALBUMIN 4.2 g/dL 2019 Unknown COMPREHENSIVE METABOLIC 25285 CHLORIDE 104 mmol/L 12/04 Unknown COMPREHENSIVE METABOLIC 80908 Bili Total 1.0 mg/dL 12/04 Unknown COMPREHENSIVE METABOLIC 89712 ALK PHOS 78 U/L 2019 Unknown COMPREHENSIVE METABOLIC 00445 SODIUM 145 mmol/L 12/04 Unknown COMPREHENSIVE METABOLIC 72497 CREATININE 0.91 mg/dL 11/22 Unknown COMPREHENSIVE METABOLIC 27364 CALCIUM 9.3 mg/dL 2019 Unknown COMPREHENSIVE METABOLIC 72211 POTASSIUM 3.6 mmol/L 12/04 Unknown COMPREHENSIVE METABOLIC 04832 Total Protein 7.0 g/dL Unknown COMPREHENSIVE METABOLIC 95286 Glucose 96 mg/dL 2019 Unknown COMPREHENSIVE METABOLIC 50882 Bicarbonate 28 mmol/L 11/22 Unknown COMPREHENSIVE METABOLIC 40316 AGAP 13 mmol/L 2019 Unknown COMPREHENSIVE METABOLIC 70967 AST 15 U/L 2019 Unknown COMPREHENSIVE METABOLIC 93909 ALT 11 U/L 2019 Unknown COMPREHENSIVE METABOLIC 83437 BUN 14 mg/dL 2019 Unknown COMPREHENSIVE METABOLIC 64229 ALBUMIN 4.3 g/dL 2019 Unknown COMPREHENSIVE METABOLIC 98159 CHLORIDE 106 mmol/L 11/05 Unknown COMPREHENSIVE METABOLIC 80130 Bili Total 0.7 mg/dL 11/05 Unknown COMPREHENSIVE METABOLIC 73826 ALK PHOS 80 U/L 2019 Unknown COMPREHENSIVE METABOLIC 63973 SODIUM 145 mmol/L 11/05 Unknown COMPREHENSIVE METABOLIC 32919 CREATININE 0.97 mg/dL 10/25 Unknown COMPREHENSIVE METABOLIC 48869 CALCIUM 9.5 mg/dL 2019 Unknown COMPREHENSIVE METABOLIC 22930 POTASSIUM 3.9 mmol/L 11/05 Unknown COMPREHENSIVE METABOLIC 39592 Total Protein 7.0 g/dL Unknown COMPREHENSIVE METABOLIC 66107 Glucose 103 mg/dL 2019 Unknown COMPREHENSIVE METABOLIC 08278 Bicarbonate 29 mmol/L 10/25 Unknown COMPREHENSIVE METABOLIC 32569 AGAP 10 mmol/L 2019 Unknown GFR CALC 4195528 GFR Non Afr Amr 55 mL/min 11/05/2019 Unk nown GFR CALC 4516674 GFR Afr Amr >60 mL/min 11/05/2019 Unknow n FREE T4 84339 T4 Free 1.34 ng/dL 10/21/2019 Unknown COMPLETE BLOOD COUNT 2878254 WBC 7.2 10e9/L 10/21/19 20 Unknown COMPLETE BLOOD COUNT [id number] RBC 4.17 10e12/L 2019 Unknown COMPLETE BLOOD COUNT 2098875 HEMOGLOBIN 12.1 g/dL 10/21/19 20 Unknown COMPLETE BLOOD COUNT 9012974 HEMATOCRIT 39.0 % 10/21/19 20 Unknown COMPLETE BLOOD COUNT 5181305 MCV 93.5 fL 0 Unknown COMPLETE BLOOD COUNT 2870126 MCH 29.0 pg 0 Unknown COMPLETE BLOOD COUNT 5528652 MCHC 31.0 g/dL 0 Unknown COMPLETE BLOOD COUNT 0089497 PLATELET COUNT 239 10e9/L Unknown COMPLETE BLOOD COUNT 9515361 Mean Plt Volume 11.7 fL Unknown COMPLETE BLOOD COUNT 3660944 Neut Auto 63.7 % 0 Unknown COMPLETE BLOOD COUNT 8912659 Lymph Auto 21.0 % 10/21/19 20 Unknown COMPLETE BLOOD COUNT 6642296 [place] Auto 11.1 % 0 Unknown COMPLETE BLOOD COUNT 2862117 RDW 13.6 % 0 Unknown COMPLETE BLOOD COUNT 2154975 Eos Auto 3.6 % 0 Unknown COMPLETE BLOOD COUNT 1145782 Baso Auto 0.6 % 0 Unknown COMPLETE BLOOD COUNT 7452807 Neutrophil Abs 4.59 10e9/L Unknown COMPLETE BLOOD COUNT 1370755 Lymphocyte Abs 1.51 10e9/L Unknown COMPLETE BLOOD COUNT 7005136 Monocyte Abs 0.80 10e9/L 09/25 Unknown COMPLETE BLOOD COUNT 2243763 Eosinophil Abs 0.26 10e9/L Unknown COMPLETE BLOOD COUNT 5915403 RDW-SD 45.1 fL 0 Unknown COMPLETE BLOOD COUNT [id number] Basophil Abs 0.04 10e9/L 09/25 Unknown GFR CALC 1727384 GFR Non Afr Amr 42 mL/min 10/21/2019 Unk nown GFR CALC [id number] GFR Afr Amr 50 mL/min 10/21/2019 Unknown COMPREHENSIVE METABOLIC 39294 AST 16 U/L 2019 Unknown COMPREHENSIVE METABOLIC 75023 ALT 10 U/L 2019 Unknown COMPREHENSIVE METABOLIC 48008 BUN 20 mg/dL 2019 Unknown COMPREHENSIVE METABOLIC 05469 ALBUMIN 4.4 g/dL 2019 Unknown COMPREHENSIVE METABOLIC 69211 CHLORIDE 102 mmol/L 10/21 Unknown COMPREHENSIVE METABOLIC 54220 Bili Total 0.8 mg/dL 10/21 Unknown COMPREHENSIVE METABOLIC 86799 ALK PHOS 85 U/L 2019 Unknown COMPREHENSIVE METABOLIC 70749 SODIUM 144 mmol/L 10/21 Unknown COMPREHENSIVE METABOLIC 34887 CREATININE 1.24 mg/dL 09/25 Unknown COMPREHENSIVE METABOLIC 47012 CALCIUM 9.8 mg/dL 2019 Unknown COMPREHENSIVE METABOLIC 64463 POTASSIUM 4.2 mmol/L 10/21 Unknown COMPREHENSIVE METABOLIC 72663 Total Protein 7.3 g/dL Unknown COMPREHENSIVE METABOLIC 26324 Glucose 98 mg/dL 2019 Unknown COMPREHENSIVE METABOLIC 24233 Bicarbonate 31 mmol/L 09/25 Unknown COMPREHENSIVE METABOLIC 67734 AGAP 11 mmol/L 2019 Unknown THYROID STIMULATING HORMONE 63189 TSH 2.693 uIU/mL 10/21/2019 Unknown LIPID GROUP 85361 Cholesterol 142 mg/dL 10/21/2019 Unkno wn LIPID GROUP 41969 Triglyceride 120 mg/dL 10/21/2019 Unkn own LIPID GROUP 35456 HDL CHOLESTEROL 54 mg/dL 10/21/2019 U nknown LIPID GROUP 00359 Chol/HDL Ratio 2.63 ratio 10/21/2019 U nknown LIPID GROUP 54253 NON-HDL Chol 88 mg/dL 10/21/2019 Unkn own LIPID GROUP 40849 LDL Cholesterol 64 mg/dL 10/21/2019 U nknown GFR CALC [id number] GFR Non Afr Amr >60 mL/min 04/04/2019 Un known GFR CALC [id number] GFR Afr Amr >60 mL/min 04/04/2019 Unknow n COMPLETE BLOOD COUNT 2020718 WBC 5.9 10e9/L 04/04/20 19 Unknown COMPLETE BLOOD COUNT [id number] RBC 4.29 10e12/L 2018 Unknown COMPLETE BLOOD COUNT 4061984 HEMOGLOBIN 12.3 g/dL 04/04/20 19 Unknown COMPLETE BLOOD COUNT [id number] HEMATOCRIT 39.2 % 04/04/20 19 Unknown COMPLETE BLOOD COUNT [id number] MCV 91.4 fL 9 Unknown COMPLETE BLOOD COUNT 1578504 MCH 28.7 pg 9 Unknown COMPLETE BLOOD COUNT [id number] MCHC 31.4 g/dL 9 Unknown COMPLETE BLOOD COUNT [id number] PLATELET COUNT 225 10e9/L 08/2019 Unknown COMPLETE BLOOD COUNT 3119776 Mean Plt Volume 11.0 fL 08/2019 Unknown COMPLETE BLOOD COUNT 8368339 Neut Auto 57.2 % 9 Unknown COMPLETE BLOOD COUNT [id number] Lymph Auto 27.3 % 04/04/20 19 Unknown COMPLETE BLOOD COUNT [id number] [place] Auto 11.2 % 9 Unknown COMPLETE BLOOD COUNT 1370144 RDW 14.3 % 9 Unknown COMPLETE BLOOD COUNT [id number] Eos Auto 3.4 % 9 Unknown COMPLETE BLOOD COUNT 9675176 Baso Auto 0.9 % 9 Unknown COMPLETE BLOOD COUNT 7090606 Neutrophil Abs 3.37 10e9/L Unknown COMPLETE BLOOD COUNT 1395355 Lymphocyte Abs 1.61 10e9/L Unknown COMPLETE BLOOD COUNT 2556003 Monocyte Abs 0.66 10e9/L 03/24 Unknown COMPLETE BLOOD COUNT [id number] Eosinophil Abs 0.20 10e9/L Unknown COMPLETE BLOOD COUNT [id number] RDW-SD 46.6 fL 9 Unknown COMPLETE BLOOD COUNT [id number] Basophil Abs 0.05 10e9/L 03/24 Unknown THYROID STIMULATING HORMONE 62334 TSH 2.068 uIU/mL 04/04/2019 Unknown COMPREHENSIVE METABOLIC 45411 AST 17 U/L 2018 Unknown COMPREHENSIVE METABOLIC 25518 ALT 12 U/L 2018 Unknown COMPREHENSIVE METABOLIC 47517 BUN 17 mg/dL 2018 Unknown COMPREHENSIVE METABOLIC 10834 ALBUMIN 4.3 g/dL 2018 Unknown COMPREHENSIVE METABOLIC 48907 CHLORIDE 107 mmol/L 04/04 Unknown COMPREHENSIVE METABOLIC 31033 Bili Total 1.1 mg/dL 04/04 Unknown COMPREHENSIVE METABOLIC 42639 ALK PHOS 74 U/L 2018 Unknown COMPREHENSIVE METABOLIC 69995 SODIUM 144 mmol/L 04/04 Unknown COMPREHENSIVE METABOLIC 59911 CREATININE 0.70 mg/dL 03/24 Unknown COMPREHENSIVE METABOLIC 98912 CALCIUM 9.5 mg/dL 2018 Unknown COMPREHENSIVE METABOLIC 21574 POTASSIUM 4.1 mmol/L 04/04 Unknown COMPREHENSIVE METABOLIC 88005 Total Protein 6.8 g/dL Unknown COMPREHENSIVE METABOLIC 52569 Glucose 95 mg/dL 2018 Unknown COMPREHENSIVE METABOLIC 43836 Bicarbonate 29 mmol/L 03/24 Unknown COMPREHENSIVE METABOLIC 39178 AGAP 8 mmol/L 2018 Unknown FREE T4 76465 T4 Free 1.09 ng/dL 04/04/2019 Unknown LIPID GROUP 69176 Cholesterol 149 mg/dL 04/04/2019 Unkno wn LIPID GROUP 32063 Triglyceride 70 mg/dL 04/04/2019 Unkn own LIPID GROUP 50771 HDL CHOLESTEROL 62 mg/dL 04/04/2019 U nknown LIPID GROUP 90023 Chol/HDL Ratio 2.40 ratio 04/04/2019 U nknown LIPID GROUP 12534 NON-HDL Chol 87 mg/dL 04/04/2019 Unkn own LIPID GROUP 15487 LDL Cholesterol 73 mg/dL 04/04/2019 U nknown THYROID STIMULATING HORMONE 16306 TSH 3.698 uIU/mL 10/08/2018 Unknown FREE T4 66843 T4 Free 1.24 ng/dL 10/08/2018 Unknown GFR CALC 4747624 GFR Non Afr Amr >60 mL/min 10/07/2018 Un known GFR CALC 6485308 GFR Afr Amr >60 mL/min 10/07/2018 Unknow n COMPLETE BLOOD COUNT 9940407 WBC 6.3 10e9/L 10/07/19 19 Unknown COMPLETE BLOOD COUNT [id number] RBC 4.22 10e12/L 2018 Unknown COMPLETE BLOOD COUNT [id number] HEMOGLOBIN 12.2 g/dL 10/07/19 19 Unknown COMPLETE BLOOD COUNT 2253674 HEMATOCRIT 39.4 % 10/07/19 19 Unknown COMPLETE BLOOD COUNT 1186267 MCV 93.4 fL 9 Unknown COMPLETE BLOOD COUNT 9841742 MCH 28.9 pg 9 Unknown COMPLETE BLOOD COUNT 1756959 MCHC 31.0 g/dL 9 Unknown COMPLETE BLOOD COUNT 7040472 PLATELET COUNT 231 10e9/L Unknown COMPLETE BLOOD COUNT 4422540 Mean Plt Volume 11.2 fL Unknown COMPLETE BLOOD COUNT 0759182 Neut Auto 55.7 % 9 Unknown COMPLETE BLOOD COUNT [id number] Lymph Auto 30.3 % 10/07/19 19 Unknown COMPLETE BLOOD COUNT 3001021 [place] Auto 9.6 % 9 Unknown COMPLETE BLOOD COUNT 3590607 RDW 14.0 % 9 Unknown COMPLETE BLOOD COUNT 9399425 Eos Auto 3.5 % 9 Unknown COMPLETE BLOOD COUNT 9662110 Baso Auto 0.9 % 9 Unknown COMPLETE BLOOD COUNT 5948621 Neutrophil Abs 3.51 10e9/L Unknown COMPLETE BLOOD COUNT 7079851 Lymphocyte Abs 1.91 10e9/L Unknown COMPLETE BLOOD COUNT 3229522 Monocyte Abs 0.60 10e9/L 09/24 Unknown COMPLETE BLOOD COUNT 8749317 Eosinophil Abs 0.22 10e9/L Unknown COMPLETE BLOOD COUNT 2465482 RDW-SD 46.1 fL 9 Unknown COMPLETE BLOOD COUNT [id number] Basophil Abs 0.06 10e9/L 09/24 Unknown COMPREHENSIVE METABOLIC 78025 AST 14 U/L 2018 Unknown COMPREHENSIVE METABOLIC 14111 ALT 10 U/L 2018 Unknown COMPREHENSIVE METABOLIC 61577 BUN 21 mg/dL 2018 Unknown COMPREHENSIVE METABOLIC 32045 ALBUMIN 4.4 g/dL 2018 Unknown COMPREHENSIVE METABOLIC 46566 CHLORIDE 105 mmol/L 10/07 Unknown COMPREHENSIVE METABOLIC 60688 Bili Total 0.7 mg/dL 10/07 Unknown COMPREHENSIVE METABOLIC 06371 ALK PHOS 80 U/L 2018 Unknown COMPREHENSIVE METABOLIC 52886 SODIUM 143 mmol/L 10/07 Unknown COMPREHENSIVE METABOLIC 99976 CREATININE 0.67 mg/dL 09/24 Unknown COMPREHENSIVE METABOLIC 07383 CALCIUM 9.3 mg/dL 2018 Unknown COMPREHENSIVE METABOLIC 64747 POTASSIUM 3.8 mmol/L 10/07 Unknown COMPREHENSIVE METABOLIC 12336 Total Protein 7.0 g/dL Unknown COMPREHENSIVE METABOLIC 18273 Glucose 98 mg/dL 2018 Unknown COMPREHENSIVE METABOLIC 66338 Bicarbonate 32 mmol/L 09/24 Unknown COMPREHENSIVE METABOLIC 09691 AGAP 6 mmol/L 2018 Unknown LIPID GROUP 15403 Cholesterol 160 mg/dL 10/07/2018 Unkno wn LIPID GROUP 01896 Triglyceride 101 mg/dL 10/07/2018 Unkn own LIPID GROUP 39034 HDL CHOLESTEROL 63 mg/dL 10/07/2018 U nknown LIPID GROUP 57880 Chol/HDL Ratio 2.54 ratio 10/07/2018 U nknown LIPID GROUP 41247 NON-HDL Chol 97 mg/dL 10/07/2018 Unkn own LIPID GROUP 35017 LDL Cholesterol 77 mg/dL 10/07/2018 U nknown MEAN GLUC 2413557 Calc Mean Gluc 114 mg/dL 10/07/2018 Unkn own GLYCOSYLATED HEMOGLOBIN TEST 22974 Hgb A1c 87646-4 5.6 % 0 10/07/2018 Unknown FREE T4 26291 T4 Free 1.21 ng/dL 02/14/2018 Unknown THYROID STIMULATING HORMONE 20519 TSH 2.977 uIU/mL 02/14/2018 Unknown COMPLETE BLOOD COUNT 2837982 WBC 5.6 10e9/L 02/14/20 18 Unknown COMPLETE BLOOD COUNT 4267057 RBC 4.23 10e12/L 2017 Unknown COMPLETE BLOOD COUNT [id number] HEMOGLOBIN 12.4 g/dL 02/14/20 18 Unknown COMPLETE BLOOD COUNT 0995698 HEMATOCRIT 39.1 % 02/14/20 18 Unknown COMPLETE BLOOD COUNT 1819500 MCV 92.4 fL 8 Unknown COMPLETE BLOOD COUNT 6957391 MCH 29.3 pg 8 Unknown COMPLETE BLOOD COUNT 0376081 MCHC 31.7 g/dL 8 Unknown COMPLETE BLOOD COUNT 8274869 PLATELET COUNT 268 10e9/L Unknown COMPLETE BLOOD COUNT 0330327 Mean Plt Volume 11.0 fL Unknown COMPLETE BLOOD COUNT 1022778 Neut Auto 52.1 % 8 Unknown COMPLETE BLOOD COUNT 7335422 Lymph Auto 32.0 % 02/14/20 18 Unknown COMPLETE BLOOD COUNT 0864357 [place] Auto 11.8 % 8 Unknown COMPLETE BLOOD COUNT 5295139 RDW 14.6 % 8 Unknown COMPLETE BLOOD COUNT 3618747 Eos Auto 3.2 % 8 Unknown COMPLETE BLOOD COUNT 0809173 Baso Auto 0.9 % 8 Unknown COMPLETE BLOOD COUNT 1299416 Neutrophil Abs 2.92 10e9/L Unknown COMPLETE BLOOD COUNT 0355788 Lymphocyte Abs 1.79 10e9/L Unknown COMPLETE BLOOD COUNT 8764341 Monocyte Abs 0.66 10e9/L 01/23 Unknown COMPLETE BLOOD COUNT 4740475 Eosinophil Abs 0.18 10e9/L Unknown COMPLETE BLOOD COUNT 5446681 RDW-SD 48.2 fL 8 Unknown COMPLETE BLOOD COUNT 9213526 Basophil Abs 0.05 10e9/L 01/23 Unknown GFR CALC 9186770 GFR Non Afr Amr >60 mL/min 02/13/2018 Un known GFR CALC 0536001 GFR Afr Amr >60 mL/min 02/13/2018 Unknow n COMPREHENSIVE METABOLIC 95808 AST 18 U/L 2017 Unknown COMPREHENSIVE METABOLIC 32992 ALT 13 U/L 2017 Unknown COMPREHENSIVE METABOLIC 91137 BUN 14 mg/dL 2017 Unknown COMPREHENSIVE METABOLIC 45999 ALBUMIN 4.3 g/dL 2017 Unknown COMPREHENSIVE METABOLIC 18431 CHLORIDE 108 mmol/L 02/13 Unknown COMPREHENSIVE METABOLIC 30990 Bili Total 0.8 mg/dL 02/13 Unknown COMPREHENSIVE METABOLIC 84751 ALK PHOS 82 U/L 2017 Unknown COMPREHENSIVE METABOLIC 15820 SODIUM 144 mmol/L 02/13 Unknown COMPREHENSIVE METABOLIC 89428 CREATININE 0.67 mg/dL 01/23 Unknown COMPREHENSIVE METABOLIC 79523 CALCIUM 9.4 mg/dL 2017 Unknown COMPREHENSIVE METABOLIC 15175 POTASSIUM 4.1 mmol/L 02/13 Unknown COMPREHENSIVE METABOLIC 41034 Total Protein 6.9 g/dL Unknown COMPREHENSIVE METABOLIC 91804 Glucose 103 mg/dL 2017 Unknown COMPREHENSIVE METABOLIC 64520 Bicarbonate 27 mmol/L 01/23 Unknown COMPREHENSIVE METABOLIC 91863 AGAP 9 mmol/L 2017 Unknown LIPID GROUP 14875 Cholesterol 169 mg/dL 10/15/2017 Unkno wn LIPID GROUP 73973 Triglyceride 99 mg/dL 10/15/2017 Unkn own LIPID GROUP 87555 HDL CHOLESTEROL 69 10/15/2017 U nknown LIPID GROUP 88665 Chol/HDL Ratio 2.45 ratio 10/15/2017 U nknown LIPID GROUP 66635 NON-HDL Chol 100 mg/dL 10/15/2017 Unkn own LIPID GROUP 00898 LDL Cholesterol 80 mg/dL 10/15/2017 U nknown COMPREHENSIVE METABOLIC 87194 AST 17 U/L 2017 Unknown COMPREHENSIVE METABOLIC 35467 ALT 13 U/L 2017 Unknown COMPREHENSIVE METABOLIC 30331 BUN 22 mg/dL 2017 Unknown COMPREHENSIVE METABOLIC 91708 ALBUMIN 4.5 g/dL 2017 Unknown COMPREHENSIVE METABOLIC 32321 CHLORIDE 99 mmol/L 2017 Unknown COMPREHENSIVE METABOLIC 74346 Bili Total 0.8 mg/dL 10/15 Unknown COMPREHENSIVE METABOLIC 18471 ALK PHOS 78 U/L 2017 Unknown COMPREHENSIVE METABOLIC 87291 SODIUM 150 mmol/L 10/15 Unknown COMPREHENSIVE METABOLIC 68144 CREATININE 0.73 mg/dL 09/25 Unknown COMPREHENSIVE METABOLIC 62038 CALCIUM 9.5 mg/dL 2017 Unknown COMPREHENSIVE METABOLIC 22245 POTASSIUM 4.2 mmol/L 10/15 Unknown COMPREHENSIVE METABOLIC 29519 Total Protein 7.2 g/dL Unknown COMPREHENSIVE METABOLIC 36424 Glucose 96 mg/dL 2017 Unknown COMPREHENSIVE METABOLIC 91601 Bicarbonate 29 mmol/L 09/25 Unknown COMPREHENSIVE METABOLIC 90088 AGAP 22 mmol/L 2017 Unknown GFR CALC 7361482 GFR Non Afr Amr >60 mL/min 10/15/2017 Un known GFR CALC 7423071 GFR Afr Amr >60 mL/min 10/15/2017 Unknow n THYROID STIMULATING HORMONE 74539 TSH 4.502 uIU/mL 10/15/2017 Unknown FREE T4 48542 T4 Free 1.44 ng/dL 10/15/2017 Unknown VITAMIN B 12 43603 VITAMIN B12 698 pg/mL 10/15/2017 Unkn own COMPLETE BLOOD COUNT 3531311 WBC 6.3 10e9/L 10/15/19 18 Unknown COMPLETE BLOOD COUNT 0363387 RBC 4.37 10e12/L 2017 Unknown COMPLETE BLOOD COUNT 3886554 HEMOGLOBIN 12.6 g/dL 10/15/19 18 Unknown COMPLETE BLOOD COUNT 7472885 HEMATOCRIT 40.3 % 10/15/19 18 Unknown COMPLETE BLOOD COUNT 7807241 MCV 92.2 fL 8 Unknown COMPLETE BLOOD COUNT 9528301 MCH 28.8 pg 8 Unknown COMPLETE BLOOD COUNT 7284141 MCHC 31.3 g/dL 8 Unknown COMPLETE BLOOD COUNT 4015152 PLATELET COUNT 256 10e9/L Unknown COMPLETE BLOOD COUNT 2677693 Mean Plt Volume 11.1 fL Unknown COMPLETE BLOOD COUNT 9763441 Neut Auto 54.8 % 8 Unknown COMPLETE BLOOD COUNT 3943171 Lymph Auto 30.5 % 10/15/19 18 Unknown COMPLETE BLOOD COUNT 2639065 [place] Auto 10.4 % 8 Unknown COMPLETE BLOOD COUNT 9248873 RDW 14.0 % 8 Unknown COMPLETE BLOOD COUNT 3319424 Eos Auto 3.8 % 8 Unknown COMPLETE BLOOD COUNT 0400112 Baso Auto 0.5 % 8 Unknown COMPLETE BLOOD COUNT 5052441 Neutrophil Abs 3.45 10e9/L Unknown COMPLETE BLOOD COUNT 4410799 Lymphocyte Abs 1.92 10e9/L Unknown COMPLETE BLOOD COUNT 9857166 Monocyte Abs 0.66 10e9/L 09/25 Unknown COMPLETE BLOOD COUNT 9232575 Eosinophil Abs 0.24 10e9/L Unknown COMPLETE BLOOD COUNT 5536091 RDW-SD 46.1 fL 8 Unknown COMPLETE BLOOD COUNT 1311436 Basophil Abs 0.03 10e9/L 09/25 Unknown VITAMIN B 12 77765 VITAMIN B12 823 pg/mL 03/30/2017 Unkn own VITAMIN B 12 19757 VITAMIN B12 321 pg/mL 12/18/2016 Unkn own COMPLETE BLOOD COUNT 2037218 WBC 6.8 10e9/L 12/12/19 17 Unknown COMPLETE BLOOD COUNT 9032798 RBC 4.37 10e12/L 2016 Unknown COMPLETE BLOOD COUNT 0328165 HEMOGLOBIN 12.5 g/dL 12/12/19 17 Unknown COMPLETE BLOOD COUNT 6195957 HEMATOCRIT 39.3 % 12/12/19 17 Unknown COMPLETE BLOOD COUNT 3749242 MCV 89.9 fL 7 Unknown COMPLETE BLOOD COUNT 6761316 MCH 28.6 pg 7 Unknown COMPLETE BLOOD COUNT 9337517 MCHC 31.8 g/dL 7 Unknown COMPLETE BLOOD COUNT 9123274 PLATELET COUNT 248 10e9/L Unknown COMPLETE BLOOD COUNT 2867833 Mean Plt Volume 10.9 fL Unknown COMPLETE BLOOD COUNT 0468865 Neut Auto 52.0 % 7 Unknown COMPLETE BLOOD COUNT 7019978 Lymph Auto 33.4 % 12/12/19 17 Unknown COMPLETE BLOOD COUNT 8217760 [place] Auto 10.1 % 7 Unknown COMPLETE BLOOD COUNT 8451001 RDW 14.6 % 7 Unknown COMPLETE BLOOD COUNT 5132571 Eos Auto 3.8 % 7 Unknown COMPLETE BLOOD COUNT 7637601 Baso Auto 0.7 % 7 Unknown COMPLETE BLOOD COUNT 4115868 Neutrophil Abs 3.54 10e9/L Unknown COMPLETE BLOOD COUNT 7386279 Lymphocyte Abs 2.27 10e9/L Unknown COMPLETE BLOOD COUNT 4160354 Monocyte Abs 0.69 10e9/L 11/23 Unknown COMPLETE BLOOD COUNT 5369677 Eosinophil Abs 0.26 10e9/L Unknown COMPLETE BLOOD COUNT 3241785 RDW-SD 47.4 fL 7 Unknown COMPLETE BLOOD COUNT 2699999 Basophil Abs 0.05 10e9/L 11/23 Unknown COMPREHENSIVE METABOLIC 04957 AST 16 U/L 2016 Unknown COMPREHENSIVE METABOLIC 47028 ALT 12 U/L 2016 Unknown COMPREHENSIVE METABOLIC 58401 BUN 22 mg/dL 2016 Unknown COMPREHENSIVE METABOLIC 57541 ALBUMIN 4.2 g/dL 2016 Unknown COMPREHENSIVE METABOLIC 96541 CHLORIDE 104 mmol/L 12/11 Unknown COMPREHENSIVE METABOLIC 60830 Bili Total 0.7 mg/dL 12/11 Unknown COMPREHENSIVE METABOLIC 76561 ALK PHOS 78 U/L 2016 Unknown COMPREHENSIVE METABOLIC 58840 SODIUM 143 mmol/L 12/11 Unknown COMPREHENSIVE METABOLIC 01891 CREATININE 0.69 mg/dL 11/23 Unknown COMPREHENSIVE METABOLIC 49522 CALCIUM 9.5 mg/dL 2016 Unknown COMPREHENSIVE METABOLIC 12331 POTASSIUM 3.9 mmol/L 12/11 Unknown COMPREHENSIVE METABOLIC 43899 Total Protein 7.1 g/dL Unknown COMPREHENSIVE METABOLIC 76954 Glucose 103 mg/dL 2016 Unknown COMPREHENSIVE METABOLIC 61489 Bicarbonate 30 mmol/L 11/23 Unknown COMPREHENSIVE METABOLIC 61863 AGAP 9 mmol/L 2016 Unknown GFR CALC 8979263 GFR Non Afr Amr >60 mL/min 12/11/2016 Un known GFR CALC 8120311 GFR Afr Amr >60 mL/min 12/11/2016 Unknow n MEAN GLUC 9736340 Calc Mean Gluc 120 mg/dL 12/11/2016 Unkn own LIPID GROUP 14018 Cholesterol 162 mg/dL 12/11/2016 Unkno wn LIPID GROUP 11514 Triglyceride 80 mg/dL 12/11/2016 Unkn own LIPID GROUP 64666 HDL CHOLESTEROL 65 mg/dL 12/11/2016 U nknown LIPID GROUP 99517 Chol/HDL Ratio 2.49 ratio 12/11/2016 U nknown LIPID GROUP 58337 NON-HDL Chol 97 mg/dL 12/11/2016 Unkn own LIPID GROUP 27497 LDL Cholesterol 81 mg/dL 12/11/2016 U nknown FREE T4 62416 T4 Free 1.46 ng/dL 12/11/2016 Unknown THYROID STIMULATING HORMONE 08409 TSH 2.578 uIU/mL 12/11/2016 Unknown GLYCOSYLATED HEMOGLOBIN TEST 68542 Hgb A1c 83449-3 5.8 % 0 12/11/2016 Unknown FREE T4 05336 FREE T4 1.68 NG/DL 05/27/2015 Unknown LIPID GROUP 84672 HDL TEST 67 MG/DL 05/27/2015 Unknown LIPID GROUP 14139 TRIG 92 MG/DL 05/27/2015 Unknown LIPID GROUP 42109 TEST LDL 84 MG/DL 05/27/2015 Unknown LIPID GROUP 01137 CHOL 169 MG/DL 05/27/2015 Unknown LIPID GROUP 55399 RCHOL/HDL 2.52 RATIO 05/27/2015 Unknow n LIPID GROUP 08261 NON-HDL CH 102 MG/DL 05/27/2015 Unknow n GLYCOSYLATED HEMOGLOBIN TEST 15343 A1C HPLC 35260-7 5.9 % 0 05/27/2015 Unknown VITAMIN B 12 12133 VIT B 12 308 PG/ML 05/27/2015 Unknow n GFR CALC 6874259 GFR AA >60 ML/MIN 05/27/2015 Unknown GFR CALC 3732557 GFR NON-AA >60 ML/MIN 05/27/2015 Unknown COMPREHENSIVE METABOLIC 91526 AST 20 U/L 2014 Unknown COMPREHENSIVE METABOLIC 14536 ALT 15 IU/L 2014 Unknown COMPREHENSIVE METABOLIC 73393 BUN 17 MG/DL 2014 Unknown COMPREHENSIVE METABOLIC 10445 ALBUMIN 4.3 GM/DL 2014 Unknown COMPREHENSIVE METABOLIC 08842 CHLORIDE 107 MMOL/L 05/27 Unknown COMPREHENSIVE METABOLIC 32368 BILI TOT 0.9 MG/DL 2014 Unknown COMPREHENSIVE METABOLIC 26011 ALK PHOS 85 U/L 2014 Unknown COMPREHENSIVE METABOLIC 64184 SODIUM 144 MMOL/L 05/27 Unknown COMPREHENSIVE METABOLIC 23362 CREATININE 0.76 MG/DL 11/2014 Unknown COMPREHENSIVE METABOLIC 85882 CALCIUM 9.5 MG/DL 2014 Unknown COMPREHENSIVE METABOLIC 47147 POTASSIUM 4.2 MMOL/L 05/27 Unknown COMPREHENSIVE METABOLIC 81345 PROT TOT 7.1 GM/DL 2014 Unknown COMPREHENSIVE METABOLIC 38250 Glucose 95 MG/DL 2014 Unknown COMPREHENSIVE METABOLIC 56032 BICARB 30 MMOL/L 2014 Unknown COMPREHENSIVE METABOLIC 09462 ANION GAP 7 MEQ/L 2014 Unknown COMPLETE BLOOD COUNT 5450474 WBC 6.5 10e9/L 05/27/20 15 Unknown COMPLETE BLOOD COUNT 8154519 RBC 4.35 10e12/L 2014 Unknown COMPLETE BLOOD COUNT 5255080 HGB 12.4 g/dL 5 Unknown COMPLETE BLOOD COUNT 0178416 HCT DET 39.3 % 5 Unknown COMPLETE BLOOD COUNT 3766473 MCV 90.3 fL 5 Unknown COMPLETE BLOOD COUNT 3619794 MCH 28.5 pg 5 Unknown COMPLETE BLOOD COUNT 8345154 MCHC 31.6 g/dL 5 Unknown COMPLETE BLOOD COUNT 6252926 PLT 245 10e9/L 05/27/20 15 Unknown COMPLETE BLOOD COUNT 5589674 MPV 11.1 fL 5 Unknown COMPLETE BLOOD COUNT 6885043 CRISTI % 53.9 % 5 Unknown COMPLETE BLOOD COUNT 4592130 LY % 30.8 % 5 Unknown COMPLETE BLOOD COUNT 1060577 MON % 11.2 % 5 Unknown COMPLETE BLOOD COUNT 6270267 EOS % 3.2 % 5 Unknown COMPLETE BLOOD COUNT 5824681 BASO % 0.9 % 5 Unknown COMPLETE BLOOD COUNT 4363051 RDW 14.5 % 5 Unknown COMPLETE BLOOD COUNT 5195240 ABS CRISTI 3.50 10e9/L 015 Unknown COMPLETE BLOOD COUNT 3105849 ABS LYMPH 2.00 10e9/L 015 Unknown COMPLETE BLOOD COUNT 4164101 ABS MONO 0.73 10e9/L 015 Unknown COMPLETE BLOOD COUNT 2619895 ABS EOS 0.21 10e9/L 015 Unknown COMPLETE BLOOD COUNT 0873806 ABS BASO 0.06 10e9/L 015 Unknown COMPLETE BLOOD COUNT 4742713 RDW-SD 46.3 fL 5 Unknown THYROID STIMULATING HORMONE 56156 TSH 2.909 uIU/ML 05/27/2015 Unknown IRON 44012 IRON TEST 63 UG/DL 12/15/2014 Unknown COMPLETE BLOOD COUNT 9087619 WBC 6.3 10e9/L 12/16/19 15 Unknown COMPLETE BLOOD COUNT 6069460 RBC 4.37 10e12/L 2014 Unknown COMPLETE BLOOD COUNT 2467173 HGB 12.6 g/dL 5 Unknown COMPLETE BLOOD COUNT 0100325 HCT DET 39.2 % 5 Unknown COMPLETE BLOOD COUNT 7300401 MCV 89.7 fL 5 Unknown COMPLETE BLOOD COUNT 9585248 MCH 28.8 pg 5 Unknown COMPLETE BLOOD COUNT 1659903 MCHC 32.1 g/dL 5 Unknown COMPLETE BLOOD COUNT 5915071 PLT 252 10e9/L 12/16/19 15 Unknown COMPLETE BLOOD COUNT 6999537 MPV 10.8 fL 5 Unknown COMPLETE BLOOD COUNT 9680942 CRISTI % 60.5 % 5 Unknown COMPLETE BLOOD COUNT 6258281 LY % 24.4 % 5 Unknown COMPLETE BLOOD COUNT 0266125 MON % 11.8 % 5 Unknown COMPLETE BLOOD COUNT 0596691 EOS % 2.7 % 5 Unknown COMPLETE BLOOD COUNT 7753434 BASO % 0.6 % 5 Unknown COMPLETE BLOOD COUNT 2094459 RDW 14.0 % 5 Unknown COMPLETE BLOOD COUNT 2109191 ABS CRISTI 3.81 10e9/L 015 Unknown COMPLETE BLOOD COUNT 5444889 ABS LYMPH 1.54 10e9/L 015 Unknown COMPLETE BLOOD COUNT 8572673 ABS MONO 0.74 10e9/L 015 Unknown COMPLETE BLOOD COUNT 4206449 ABS EOS 0.17 10e9/L 015 Unknown COMPLETE BLOOD COUNT 1262471 ABS BASO 0.04 10e9/L 015 Unknown COMPLETE BLOOD COUNT 4150741 RDW-SD 44.6 fL 5 Unknown GFR CALC 4879382 GFR AA >60 ML/MIN 11/26/2014 Unknown GFR CALC 5896128 GFR NON-AA >60 ML/MIN 11/26/2014 Unknown COMPREHENSIVE METABOLIC 61702 AST 16 U/L 2014 Unknown COMPREHENSIVE METABOLIC 74128 ALT 15 IU/L 2014 Unknown COMPREHENSIVE METABOLIC 10985 BUN 21 MG/DL 2014 Unknown COMPREHENSIVE METABOLIC 89578 ALBUMIN 4.4 GM/DL 2014 Unknown COMPREHENSIVE METABOLIC 37927 CHLORIDE 106 MMOL/L 11/26 Unknown COMPREHENSIVE METABOLIC 59673 BILI TOT 0.9 MG/DL 2014 Unknown COMPREHENSIVE METABOLIC 99563 ALK PHOS 83 U/L 2014 Unknown COMPREHENSIVE METABOLIC 36449 SODIUM 141 MMOL/L 11/26 Unknown COMPREHENSIVE METABOLIC 55605 CREATININE 0.68 MG/DL 01/2015 Unknown COMPREHENSIVE METABOLIC 35659 CALCIUM 9.4 MG/DL 2014 Unknown COMPREHENSIVE METABOLIC 97461 POTASSIUM 3.8 MMOL/L 11/26 Unknown COMPREHENSIVE METABOLIC 25367 PROT TOT 7.2 GM/DL 2014 Unknown COMPREHENSIVE METABOLIC 73706 Glucose 100 MG/DL 2014 Unknown COMPREHENSIVE METABOLIC 58294 BICARB 29 MMOL/L 2014 Unknown COMPREHENSIVE METABOLIC 28778 ANION GAP 6 MEQ/L 2014 Unknown LIPID GROUP 53468 HDL TEST 72 MG/DL 11/26/2014 Unknown LIPID GROUP 23378 TRIG 101 MG/DL 11/26/2014 Unknown LIPID GROUP 47268 TEST LDL 82 MG/DL 11/26/2014 Unknown LIPID GROUP 09104 CHOL 174 MG/DL 11/26/2014 Unknown LIPID GROUP 74101 RCHOL/HDL 2.42 RATIO 11/26/2014 Unknow n LIPID GROUP 68455 NON-HDL CH 102 MG/DL 11/26/2014 Unknow n GFR CALC 1337514 GFR AA >60 ML/MIN 08/14/2014 Unknown GFR CALC 8005476 GFR NON-AA >60 ML/MIN 08/14/2014 Unknown THYROID STIMULATING HORMONE 84343 TSH 2.261 uIU/ML 08/14/2014 Unknown COMPLETE BLOOD COUNT 2227788 WBC 5.8 10e9/L 08/14/20 14 Unknown COMPLETE BLOOD COUNT 5200548 RBC 4.33 10e12/L 2013 Unknown COMPLETE BLOOD COUNT 7859323 HGB 12.5 g/dL 4 Unknown COMPLETE BLOOD COUNT 7297094 HCT DET 39.2 % 4 Unknown COMPLETE BLOOD COUNT 0282649 MCV 90.5 fL 4 Unknown COMPLETE BLOOD COUNT 3865602 MCH 28.9 pg 4 Unknown COMPLETE BLOOD COUNT 5562643 MCHC 31.9 g/dL 4 Unknown COMPLETE BLOOD COUNT 1480717 PLT 260 10e9/L 08/14/20 14 Unknown COMPLETE BLOOD COUNT 3268337 MPV 10.9 fL 4 Unknown COMPLETE BLOOD COUNT 0686296 CRISTI % 52.9 % 4 Unknown COMPLETE BLOOD COUNT 9399601 LY % 31.0 % 4 Unknown COMPLETE BLOOD COUNT 8212106 MON % 11.3 % 4 Unknown COMPLETE BLOOD COUNT 9103651 EOS % 3.6 % 4 Unknown COMPLETE BLOOD COUNT 6980296 BASO % 1.2 % 4 Unknown COMPLETE BLOOD COUNT 2485680 RDW 13.9 % 4 Unknown COMPLETE BLOOD COUNT 0457433 ABS CRISTI 3.07 10e9/L 014 Unknown COMPLETE BLOOD COUNT 2898365 ABS LYMPH 1.80 10e9/L 014 Unknown COMPLETE BLOOD COUNT 0289699 ABS MONO 0.66 10e9/L 014 Unknown COMPLETE BLOOD COUNT 6056655 ABS EOS 0.21 10e9/L 014 Unknown COMPLETE BLOOD COUNT 6389812 ABS BASO 0.07 10e9/L 014 Unknown COMPLETE BLOOD COUNT 1175801 RDW-SD 44.8 fL 4 Unknown COMPREHENSIVE METABOLIC 29857 AST 15 U/L 2013 Unknown COMPREHENSIVE METABOLIC 89355 ALT 13 IU/L 2013 Unknown COMPREHENSIVE METABOLIC 51256 BUN 18 MG/DL 2013 Unknown COMPREHENSIVE METABOLIC 07367 ALBUMIN 4.4 GM/DL 2013 Unknown COMPREHENSIVE METABOLIC 67099 CHLORIDE 105 MMOL/L 08/14 Unknown COMPREHENSIVE METABOLIC 51936 BILI TOT 1.0 MG/DL 2013 Unknown COMPREHENSIVE METABOLIC 20865 ALK PHOS 88 U/L 2013 Unknown COMPREHENSIVE METABOLIC 43821 SODIUM 143 MMOL/L 08/14 Unknown COMPREHENSIVE METABOLIC 82230 CREATININE 0.70 MG/DL 07/26 Unknown COMPREHENSIVE METABOLIC 43209 CALCIUM 9.6 MG/DL 2013 Unknown COMPREHENSIVE METABOLIC 85555 POTASSIUM 3.9 MMOL/L 08/14 Unknown COMPREHENSIVE METABOLIC 81146 PROT TOT 7.0 GM/DL 2013 Unknown COMPREHENSIVE METABOLIC 06933 Glucose 100 MG/DL 2013 Unknown COMPREHENSIVE METABOLIC 36516 BICARB 31 MMOL/L 2013 Unknown COMPREHENSIVE METABOLIC 19250 ANION GAP 7 MEQ/L 2013 Unknown FREE T4 72246 FREE T4 1.59 NG/DL 08/14/2014 Unknown LIPID GROUP 33885 HDL TEST 66 MG/DL 08/14/2014 Unknown LIPID GROUP 02191 TRIG 106 MG/DL 08/14/2014 Unknown LIPID GROUP 17657 TEST LDL 152 MG/DL 08/14/2014 Unknown LIPID GROUP 35126 CHOL 239 MG/DL 08/14/2014 Unknown LIPID GROUP 29264 RCHOL/HDL 3.62 RATIO 08/14/2014 Unknow n LIPID GROUP 66253 NON-HDL CH 173 MG/DL 08/14/2014 Unknow n COMPREHENSIVE METABOLIC 51235 AST 16 U/L 2013 Unknown COMPREHENSIVE METABOLIC 90524 ALT 13 IU/L 2013 Unknown COMPREHENSIVE METABOLIC 79845 BUN 20 MG/DL 2013 Unknown COMPREHENSIVE METABOLIC 92495 ALBUMIN 4.4 GM/DL 2013 Unknown COMPREHENSIVE METABOLIC 75183 CHLORIDE 104 MMOL/L 02/04 Unknown COMPREHENSIVE METABOLIC 86854 BILI TOT 0.8 MG/DL 2013 Unknown COMPREHENSIVE METABOLIC 64919 ALK PHOS 79 U/L 2013 Unknown COMPREHENSIVE METABOLIC 23087 SODIUM 141 MMOL/L 02/04 Unknown COMPREHENSIVE METABOLIC 84961 CREATININE 0.73 MG/DL 01/22 Unknown COMPREHENSIVE METABOLIC 90409 CALCIUM 9.6 MG/DL 2013 Unknown COMPREHENSIVE METABOLIC 36848 POTASSIUM 4.0 MMOL/L 02/04 Unknown COMPREHENSIVE METABOLIC 59454 PROT TOT 7.2 GM/DL 2013 Unknown COMPREHENSIVE METABOLIC 97507 Glucose 96 MG/DL 2013 Unknown COMPREHENSIVE METABOLIC 61725 BICARB 31 MMOL/L 2013 Unknown COMPREHENSIVE METABOLIC 06632 ANION GAP 6 MEQ/L 2013 Unknown GFR CALC 0510404 GFR AA >60 ML/MIN 02/04/2014 Unknown GFR CALC 4822923 GFR NON-AA >60 ML/MIN 02/04/2014 Unknown FREE T4 20229 FREE T4 1.59 NG/DL 02/04/2014 Unknown COMPLETE BLOOD COUNT 4044304 WBC 5.9 10e9/L 02/05/20 14 Unknown COMPLETE BLOOD COUNT 7986364 RBC 4.37 10e12/L 2013 Unknown COMPLETE BLOOD COUNT 5953794 HGB 12.6 g/dL 4 Unknown COMPLETE BLOOD COUNT 7100625 HCT DET 39.0 % 4 Unknown COMPLETE BLOOD COUNT 4846407 MCV 89.2 fL 4 Unknown COMPLETE BLOOD COUNT 6615232 MCH 28.8 pg 4 Unknown COMPLETE BLOOD COUNT 9799607 MCHC 32.3 g/dL 4 Unknown COMPLETE BLOOD COUNT [id number] PLT 265 10e9/L 02/05/20 14 Unknown COMPLETE BLOOD COUNT [id number] MPV 10.8 fL 4 Unknown COMPLETE BLOOD COUNT [id number] CRISTI % 55.5 % 4 Unknown COMPLETE BLOOD COUNT [id number] LY % 30.8 % 4 Unknown COMPLETE BLOOD COUNT [id number] MON % 10.0 % 4 Unknown COMPLETE BLOOD COUNT [id number] EOS % 2.7 % 4 Unknown COMPLETE BLOOD COUNT [id number] BASO % 1.0 % 4 Unknown COMPLETE BLOOD COUNT [id number] RDW 14.2 % 4 Unknown COMPLETE BLOOD COUNT [id number] ABS CRISTI 3.27 10e9/L 014 Unknown COMPLETE BLOOD COUNT [id number] ABS LYMPH 1.82 10e9/L 014 Unknown COMPLETE BLOOD COUNT [id number] ABS MONO 0.59 10e9/L 014 Unknown COMPLETE BLOOD COUNT [id number] ABS EOS 0.16 10e9/L 014 Unknown COMPLETE BLOOD COUNT [id number] ABS BASO 0.06 10e9/L 014 Unknown COMPLETE BLOOD COUNT [id number] RDW-SD 45.2 fL 4 Unknown LIPID GROUP 13577 HDL TEST 69 MG/DL 02/04/2014 Unknown LIPID GROUP 88122 TRIG 121 MG/DL 02/04/2014 Unknown LIPID GROUP 15226 TEST LDL 144 MG/DL 02/04/2014 Unknown LIPID GROUP 28416 CHOL 237 MG/DL 02/04/2014 Unknown LIPID GROUP 87411 RCHOL/HDL 3.43 RATIO 02/04/2014 Unknow n THYROID STIMULATING HORMONE 55714 TSH 2.310 uIU/ML 02/04/2014 Unknown THYROID STIMULATING HORMONE 76692 TSH 2.429 uIU/ML 03/18/2012 Unknown COMPREHENSIVE METABOLIC 04966 AST 17 U/L 2011 Unknown COMPREHENSIVE METABOLIC 07713 ALT 15 IU/L 2011 Unknown COMPREHENSIVE METABOLIC 61509 BUN 17 MG/DL 2011 Unknown COMPREHENSIVE METABOLIC 03924 ALBUMIN 4.1 GM/DL 2011 Unknown COMPREHENSIVE METABOLIC 75236 CHLORIDE 108 MMOL/L 03/18 Unknown COMPREHENSIVE METABOLIC 05675 BILI TOT 0.7 MG/DL 2011 Unknown COMPREHENSIVE METABOLIC 52880 ALK PHOS 79 U/L 2011 Unknown COMPREHENSIVE METABOLIC 62319 SODIUM 144 MMOL/L 03/18 Unknown COMPREHENSIVE METABOLIC 15926 CREATININE 0.68 MG/DL 02/23 Unknown COMPREHENSIVE METABOLIC 46439 CALCIUM 9.0 MG/DL 2011 Unknown COMPREHENSIVE METABOLIC 85902 POTASSIUM 3.7 MMOL/L 03/18 Unknown COMPREHENSIVE METABOLIC 98761 PROT TOT 6.6 GM/DL 2011 Unknown COMPREHENSIVE METABOLIC 00345 Glucose 99 MG/DL 2011 Unknown COMPREHENSIVE METABOLIC 47629 BICARB 28 MMOL/L 2011 Unknown COMPREHENSIVE METABOLIC 25315 ANION GAP 8 MEQ/L 2011 Unknown LIPID GROUP 41977 HDL TEST 65 MG/DL 03/18/2012 Unknown LIPID GROUP 43183 TRIG 86 MG/DL 03/18/2012 Unknown LIPID GROUP 81349 TEST LDL 153 MG/DL 03/18/2012 Unknown LIPID GROUP [id number] CHOL 235 MG/DL 03/18/2012 Unknown LIPID GROUP 57225 RCHOL/HDL 3.62 RATIO 03/18/2012 Unknow n GFR CALC 1087491 GFR AA >60 ML/MIN 03/18/2012 Unknown GFR CALC [id number] GFR NON-AA >60 ML/MIN 03/18/2012 Unknown COMPLETE BLOOD COUNT 70038 WBC 5.1 10e9/L 03/18/20 12 Unknown COMPLETE BLOOD COUNT 52276 RBC 4.32 10e12/L 2011 Unknown COMPLETE BLOOD COUNT 01399 HGB 12.4 g/dL 2 Unknown COMPLETE BLOOD COUNT 15559 HCT DET 38.4 % 2 Unknown COMPLETE BLOOD COUNT 33150 MCV 88.9 fL 2 Unknown COMPLETE BLOOD COUNT 48520 MCH 28.7 pg 2 Unknown COMPLETE BLOOD COUNT 07814 MCHC 32.3 g/dL 2 Unknown COMPLETE BLOOD COUNT 41866 PLT 245 10e9/L 03/18/20 12 Unknown COMPLETE BLOOD COUNT 79155 MPV 10.7 fL 2 Unknown COMPLETE BLOOD COUNT 88787 CRISTI % 52.9 % 2 Unknown COMPLETE BLOOD COUNT 69440 LY % 31.5 % 2 Unknown COMPLETE BLOOD COUNT 29325 MON % 12.3 % 2 Unknown COMPLETE BLOOD COUNT 19572 EOS % 2.9 % 2 Unknown COMPLETE BLOOD COUNT 55604 BASO % 0.4 % 2 Unknown COMPLETE BLOOD COUNT 30693 RDW 13.9 % 2 Unknown COMPLETE BLOOD COUNT 08615 ABS CRISTI 2.70 10e9/L 012 Unknown COMPLETE BLOOD COUNT 94365 ABS LYMPH 1.61 10e9/L 012 Unknown COMPLETE BLOOD COUNT 50499 ABS MONO 0.63 10e9/L 012 Unknown COMPLETE BLOOD COUNT 73170 ABS EOS 0.15 10e9/L 012 Unknown COMPLETE BLOOD COUNT 83598 ABS BASO 0.02 10e9/L 012 Unknown COMPLETE BLOOD COUNT 86170 RDW-SD 44.5 fL 2 Unknown FREE T4 13438 FREE T4 1.50 NG/DL 03/18/2012 Unknown LIPID GROUP 98050 HDL TEST 61 MG/DL 07/13/2011 Unknown LIPID GROUP 41225 TRIG 158 MG/DL 07/13/2011 Unknown LIPID GROUP 76520 TEST LDL 131 MG/DL 07/13/2011 Unknown LIPID GROUP 39637 CHOL 224 MG/DL 07/13/2011 Unknown LIPID GROUP 85663 RCHOL/HDL 3.67 RATIO 07/13/2011 Unknow n COMPREHENSIVE METABOLIC 22722 AST 19 U/L 2010 Unknown COMPREHENSIVE METABOLIC 03750 ALT 17 IU/L 2010 Unknown COMPREHENSIVE METABOLIC 97094 BUN 14 MG/DL 2010 Unknown COMPREHENSIVE METABOLIC 45415 ALBUMIN 4.2 GM/DL 2010 Unknown COMPREHENSIVE METABOLIC 46488 CHLORIDE 105 MMOL/L 07/13 Unknown COMPREHENSIVE METABOLIC 27333 BILI TOT 0.9 MG/DL 2010 Unknown COMPREHENSIVE METABOLIC 06958 ALK PHOS 71 U/L 2010 Unknown COMPREHENSIVE METABOLIC 09092 SODIUM 141 MMOL/L 07/13 Unknown COMPREHENSIVE METABOLIC 83242 CREATININE 0.68 MG/DL 06/25 Unknown COMPREHENSIVE METABOLIC 02715 CALCIUM 9.3 MG/DL 2010 Unknown COMPREHENSIVE METABOLIC 89079 POTASSIUM 3.8 MMOL/L 07/13 Unknown COMPREHENSIVE METABOLIC 87087 PROT TOT 6.5 GM/DL 2010 Unknown COMPREHENSIVE METABOLIC 40823 Glucose 94 MG/DL 2010 Unknown COMPREHENSIVE METABOLIC 78009 BICARB 28 MMOL/L 2010 Unknown COMPREHENSIVE METABOLIC 16622 ANION GAP 8 MEQ/L 2010 Unknown COMPLETE BLOOD COUNT 09827 WBC 5.4 10e9/L 07/13/20 11 Unknown COMPLETE BLOOD COUNT 77102 RBC 4.20 10e12/L 2010 Unknown COMPLETE BLOOD COUNT 67868 HGB 12.4 g/dL 1 Unknown COMPLETE BLOOD COUNT 83629 HCT DET 37.6 % 1 Unknown COMPLETE BLOOD COUNT 49184 MCV 89.5 fL 1 Unknown COMPLETE BLOOD COUNT 05794 MCH 29.5 pg 1 Unknown COMPLETE BLOOD COUNT 72046 MCHC 33.0 g/dL 1 Unknown COMPLETE BLOOD COUNT 25585 PLT 273 10e9/L 07/13/20 11 Unknown COMPLETE BLOOD COUNT 66178 MPV 10.7 fL 1 Unknown COMPLETE BLOOD COUNT 56575 CRISTI % 49.9 % 1 Unknown COMPLETE BLOOD COUNT 20533 LY % 35.9 % 1 Unknown COMPLETE BLOOD COUNT 85486 MON % 10.4 % 1 Unknown COMPLETE BLOOD COUNT 74934 EOS % 2.9 % 1 Unknown COMPLETE BLOOD COUNT 74462 BASO % 0.9 % 1 Unknown COMPLETE BLOOD COUNT 92842 RDW 13.8 % 1 Unknown COMPLETE BLOOD COUNT 55426 ABS CRISTI 2.69 10e9/L 011 Unknown COMPLETE BLOOD COUNT 12702 ABS LYMPH 1.94 10e9/L 011 Unknown COMPLETE BLOOD COUNT 46097 ABS MONO 0.56 10e9/L 011 Unknown COMPLETE BLOOD COUNT 67218 ABS EOS 0.16 10e9/L 011 Unknown COMPLETE BLOOD COUNT 63397 ABS BASO 0.05 10e9/L 011 Unknown COMPLETE BLOOD COUNT 34508 RDW-SD 44.4 fL 1 Unknown GFR CALC 1954849 GFR AA >60 ML/MIN 07/13/2011 Unknown GFR CALC 6504959 GFR NON-AA >60 ML/MIN 07/13/2011 Unknown FREE T4 23649 FREE T4 1.36 NG/DL 07/13/2011 Unknown THYROID STIMULATING HORMONE 64561 TSH 4.261 uIU/ML 07/13/2011 Unknown GFR CALC 6914056 GFR AA >60 ML/MIN 03/13/2011 Unknown GFR CALC 9542859 GFR NON-AA >60 ML/MIN 03/13/2011 Unknown LIPID GROUP 97382 HDL TEST 60 MG/DL 03/13/2011 Unknown LIPID GROUP 54208 TRIG 140 MG/DL 03/13/2011 Unknown LIPID GROUP 19178 TEST LDL 122 MG/DL 03/13/2011 Unknown LIPID GROUP 83861 CHOL 210 MG/DL 03/13/2011 Unknown LIPID GROUP 06766 RCHOL/HDL 3.50 RATIO 03/13/2011 Unknow n FREE T4 84107 FREE T4 1.36 NG/DL 03/13/2011 Unknown THYROID STIMULATING HORMONE 88101 TSH 7.688 uIU/ML 03/13/2011 Unknown COMPREHENSIVE METABOLIC 96010 AST 17 U/L 2010 Unknown COMPREHENSIVE METABOLIC 18915 ALT 12 IU/L 2010 Unknown COMPREHENSIVE METABOLIC 98785 BUN 19 MG/DL 2010 Unknown COMPREHENSIVE METABOLIC 38118 ALBUMIN 4.3 GM/DL 2010 Unknown COMPREHENSIVE METABOLIC 10800 CHLORIDE 105 MMOL/L 03/13 Unknown COMPREHENSIVE METABOLIC 67493 BILI TOT 0.6 MG/DL 2010 Unknown COMPREHENSIVE METABOLIC 30777 ALK PHOS 68 U/L 2010 Unknown COMPREHENSIVE METABOLIC 61393 SODIUM 139 MMOL/L 03/13 Unknown COMPREHENSIVE METABOLIC 77447 CREATININE 0.77 MG/DL 02/23 Unknown COMPREHENSIVE METABOLIC 30306 CALCIUM 9.2 MG/DL 2010 Unknown COMPREHENSIVE METABOLIC 16456 POTASSIUM 3.8 MMOL/L 03/13 Unknown COMPREHENSIVE METABOLIC 80573 PROT TOT 6.9 GM/DL 2010 Unknown COMPREHENSIVE METABOLIC 90653 Glucose 97 MG/DL 2010 Unknown COMPREHENSIVE METABOLIC 97349 BICARB 25 MMOL/L 2010 Unknown COMPREHENSIVE METABOLIC 91374 ANION GAP 9 MEQ/L 2010 Unknown FREE T4 50382 FREE T4 1.32 NG/DL 12/16/2010 Unknown COMPLETE BLOOD COUNT 36917 WBC 5.6 10e9/L 12/17/19 11 Unknown COMPLETE BLOOD COUNT 64852 RBC 4.38 10e12/L 2010 Unknown COMPLETE BLOOD COUNT 82265 HGB 12.5 g/dL 1 Unknown COMPLETE BLOOD COUNT 13555 HCT DET 38.7 % 1 Unknown COMPLETE BLOOD COUNT 62456 MCV 88.4 fL 1 Unknown COMPLETE BLOOD COUNT 28443 MCH 28.5 pg 1 Unknown COMPLETE BLOOD COUNT 70018 MCHC 32.3 g/dL 1 Unknown COMPLETE BLOOD COUNT 00558 PLT 249 10e9/L 12/17/19 11 Unknown COMPLETE BLOOD COUNT 32667 MPV 10.5 fL 1 Unknown COMPLETE BLOOD COUNT 43396 CRISTI % 52.8 % 1 Unknown COMPLETE BLOOD COUNT 01010 LY % 33.3 % 1 Unknown COMPLETE BLOOD COUNT 99303 MON % 9.8 % 1 Unknown COMPLETE BLOOD COUNT 18822 EOS % 3.4 % 1 Unknown COMPLETE BLOOD COUNT 25370 BASO % 0.7 % 1 Unknown COMPLETE BLOOD COUNT 22956 RDW 14.2 % 1 Unknown COMPLETE BLOOD COUNT 32972 ABS CRISTI 2.96 10e9/L 011 Unknown COMPLETE BLOOD COUNT 45939 ABS LYMPH 1.86 10e9/L 011 Unknown COMPLETE BLOOD COUNT 01979 ABS MONO 0.55 10e9/L 011 Unknown COMPLETE BLOOD COUNT 42823 ABS EOS 0.19 10e9/L 011 Unknown COMPLETE BLOOD COUNT 28826 ABS BASO 0.04 10e9/L 011 Unknown COMPLETE BLOOD COUNT 07754 RDW-SD 45.1 fL 1 Unknown GFR CALC 6413461 GFR AA >60 ML/MIN 12/16/2010 Unknown GFR CALC 8685499 GFR NON-AA >60 ML/MIN 12/16/2010 Unknown THYROID STIMULATING HORMONE 31397 TSH 7.082 uIU/ML 12/16/2010 Unknown COMPREHENSIVE METABOLIC 30968 AST 21 U/L 2010 Unknown COMPREHENSIVE METABOLIC 34020 ALT 18 IU/L 2010 Unknown COMPREHENSIVE METABOLIC 15962 BUN 22 MG/DL 2010 Unknown COMPREHENSIVE METABOLIC 80839 ALBUMIN 4.6 GM/DL 2010 Unknown COMPREHENSIVE METABOLIC 34651 CHLORIDE 102 MMOL/L 12/16 Unknown COMPREHENSIVE METABOLIC 70210 BILI TOT 0.6 MG/DL 2010 Unknown COMPREHENSIVE METABOLIC 12394 ALK PHOS 72 U/L 2010 Unknown COMPREHENSIVE METABOLIC 98431 SODIUM 140 MMOL/L 12/16 Unknown COMPREHENSIVE METABOLIC 83056 CREATININE 0.73 MG/DL 11/23 Unknown COMPREHENSIVE METABOLIC 58282 CALCIUM 9.4 MG/DL 2010 Unknown COMPREHENSIVE METABOLIC 51816 POTASSIUM 4.2 MMOL/L 12/16 Unknown COMPREHENSIVE METABOLIC 93324 PROT TOT 7.1 GM/DL 2010 Unknown COMPREHENSIVE METABOLIC 95683 Glucose 88 MG/DL 2010 Unknown COMPREHENSIVE METABOLIC 53054 BICARB 30 MMOL/L 2010 Unknown COMPREHENSIVE METABOLIC 80895 ANION GAP 8 MEQ/L 2010 Unknown LIPID GROUP 49869 HDL TEST 66 MG/DL 12/16/2010 Unknown LIPID GROUP 56728 TRIG 154 MG/DL 12/16/2010 Unknown LIPID GROUP 81418 TEST LDL 128 MG/DL 12/16/2010 Unknown LIPID GROUP 16232 CHOL 225 MG/DL 12/16/2010 Unknown LIPID GROUP 08657 RCHOL/HDL 3.41 RATIO 12/16/2010 Unknow n Procedures Procedure Codes Date ROUTINE VENIPUNCTURE CPT-4: 66514 02/28/2022 ASSAY OF FREE THYROXINE CPT-4: 62121 02/28/2022 ASSAY THYROID STIM HORMONE CPT-4: 53611 02/28/2022 COMPREHEN METABOLIC PANEL CPT-4: 76043 02/28/2022 COMPLETE CBC W/AUTO DIFF WBC CPT-4: 79348 02/28/2022 LIPID PANEL CPT-4: 65751 02/28/2022 A1C HPLC CPT-4: 66917 02/28/2022 SARSCOV & INF VIR A&B AG IA CPT-4: 25417 08/09/2021 CLEAR OUTER EAR CANAL CPT-4: 41469 08/09/2021 ROUTINE VENIPUNCTURE CPT-4: 99117 07/20/2021 ASSAY OF FREE THYROXINE CPT-4: 20274 07/20/2021 ASSAY THYROID STIM HORMONE CPT-4: 43447 07/20/2021 COMPREHEN METABOLIC PANEL CPT-4: 19231 07/20/2021 COMPLETE CBC W/AUTO DIFF WBC CPT-4: 76550 07/20/2021 A1C HPLC CPT-4: 14105 07/20/2021 DESTRUCT B9 LESION 1-14 CPT-4: 31239 05/12/2021 THER/PROPH/DIAG INJ SC/IM CPT-4: 20765 03/08/2021 TRIAMCINOLONE ACET INJ NOS CPT-4: J3301 03/08/2021 ROUTINE VENIPUNCTURE CPT-4: 90019 01/31/2021 COMPREHEN METABOLIC PANEL CPT-4: 80437 01/31/2021 COMPLETE CBC W/AUTO DIFF WBC CPT-4: 55828 01/31/2021 LIPID PANEL CPT-4: 66866 01/31/2021 ASSAY OF FREE THYROXINE CPT-4: 80941 01/31/2021 ASSAY THYROID STIM HORMONE CPT-4: 89111 01/31/2021 A1C HPLC CPT-4: 16749 01/31/2021 EXC TR-EXT B9+JOSE G 0.5 CM< CPT-4: 32561 05/19/2020 PPPS, subseq visit CPT-4: G0439 05/11/2020 ROUTINE VENIPUNCTURE CPT-4: 30070 05/05/2020 ASSAY OF FREE THYROXINE CPT-4: 59178 05/05/2020 ASSAY THYROID STIM HORMONE CPT-4: 50465 05/05/2020 COMPREHEN METABOLIC PANEL CPT-4: 19384 05/05/2020 COMPLETE CBC W/AUTO DIFF WBC CPT-4: 30752 05/05/2020 LIPID PANEL CPT-4: 19519 05/05/2020 A1C HPLC CPT-4: 53154 05/05/2020 THER/PROPH/DIAG INJ SC/IM CPT-4: 34347 01/28/2020 TRIAMCINOLONE ACET INJ NOS CPT-4: J3301 01/28/2020 ROUTINE VENIPUNCTURE CPT-4: 75776 01/05/2020 ASSAY OF FREE THYROXINE CPT-4: 35620 01/05/2020 ASSAY THYROID STIM HORMONE CPT-4: 04337 01/05/2020 COMPREHEN METABOLIC PANEL CPT-4: 83678 01/05/2020 COMPLETE CBC W/AUTO DIFF WBC CPT-4: 97659 01/05/2020 ASSAY OF AMYLASE CPT-4: 46489 01/05/2020 ASSAY OF LIPASE CPT-4: 73702 01/05/2020 ROUTINE VENIPUNCTURE CPT-4: 45918 12/05/2019 COMPREHEN METABOLIC PANEL CPT-4: 95905 12/05/2019 ROUTINE VENIPUNCTURE CPT-4: 91583 11/05/2019 COMPREHEN METABOLIC PANEL CPT-4: 46927 11/05/2019 URINALYSIS NONAUTO W/O SCOPE CPT-4: 88082 10/23/2019 URINE CULTURE/ COLONY COUNT CPT-4: 58302 10/23/2019 ROUTINE VENIPUNCTURE CPT-4: 47791 10/21/2019 ASSAY OF FREE THYROXINE CPT-4: 70636 10/21/2019 ASSAY THYROID STIM HORMONE CPT-4: 97016 10/21/2019 COMPREHEN METABOLIC PANEL CPT-4: 68840 10/21/2019 COMPLETE CBC W/AUTO DIFF WBC CPT-4: 94812 10/21/2019 LIPID PANEL CPT-4: 60191 10/21/2019 HYDRATION IV INFUSION INIT CPT-4: 98147 10/20/2019 Removal impacted cerumen using irrigation/lavage, unilateral CPT-4: 01432 10/20/2019 ROUTINE VENIPUNCTURE CPT-4: 03324 04/04/2019 COMPLETE CBC W/AUTO DIFF WBC CPT-4: 87282 04/04/2019 COMPREHEN METABOLIC PANEL CPT-4: 97819 04/04/2019 ASSAY THYROID STIM HORMONE CPT-4: 34122 04/04/2019 ASSAY OF FREE THYROXINE CPT-4: 53835 04/04/2019 LIPID PANEL CPT-4: 94500 04/04/2019 PPPS, subseq visit CPT-4: G0439 11/26/2018 ROUTINE VENIPUNCTURE CPT-4: 64777 10/07/2018 ASSAY THYROID STIM HORMONE CPT-4: 48349 10/07/2018 ASSAY OF FREE THYROXINE CPT-4: 38863 10/07/2018 COMPREHEN METABOLIC PANEL CPT-4: 40904 10/07/2018 COMPLETE CBC W/AUTO DIFF WBC CPT-4: 10922 10/07/2018 LIPID PANEL CPT-4: 38352 10/07/2018 A1C HPLC CPT-4: 75763 10/07/2018 CERUM REMOVAL CPT-4: 84490 06/25/2018 THER/PROPH/DIAG INJ SC/IM CPT-4: 09803 05/03/2018 TRIAMCINOLONE ACET INJ NOS CPT-4: J3301 05/03/2018 Removal impacted cerumen using irrigation/lavage, unilateral CPT-4: 72100 02/19/2018 ROUTINE VENIPUNCTURE CPT-4: 32006 02/13/2018 ASSAY OF FREE THYROXINE CPT-4: 26867 02/13/2018 ASSAY THYROID STIM HORMONE CPT-4: 43459 02/13/2018 COMPREHEN METABOLIC PANEL CPT-4: 06152 02/13/2018 COMPLETE CBC W/AUTO DIFF WBC CPT-4: 02236 02/13/2018 ROUTINE VENIPUNCTURE CPT-4: 23812 10/15/2017 ASSAY OF FREE THYROXINE CPT-4: 97452 10/15/2017 ASSAY THYROID STIM HORMONE CPT-4: 27314 10/15/2017 COMPREHEN METABOLIC PANEL CPT-4: 89072 10/15/2017 COMPLETE CBC W/AUTO DIFF WBC CPT-4: 06014 10/15/2017 LIPID PANEL CPT-4: 32314 10/15/2017 VITAMIN B-12 CPT-4: 93155 10/15/2017 CERUM REMOVAL CPT-4: 39892 07/24/2017 ROUTINE VENIPUNCTURE CPT-4: 35438 03/30/2017 VITAMIN B-12 CPT-4: 19038 03/30/2017 ROUTINE VENIPUNCTURE CPT-4: 03406 12/18/2016 VITAMIN B-12 CPT-4: 98853 12/18/2016 PPPS, subseq visit CPT-4: G0439 12/18/2016 ROUTINE VENIPUNCTURE CPT-4: 79911 12/11/2016 ASSAY OF FREE THYROXINE CPT-4: 17929 12/11/2016 ASSAY THYROID STIM HORMONE CPT-4: 96044 12/11/2016 COMPREHEN METABOLIC PANEL CPT-4: 45504 12/11/2016 COMPLETE CBC W/AUTO DIFF WBC CPT-4: 02571 12/11/2016 LIPID PANEL CPT-4: 79701 12/11/2016 A1C HPLC CPT-4: 95653 12/11/2016 URINALYSIS NONAUTO W/O SCOPE CPT-4: 67921 02/07/2016 ROUTINE VENIPUNCTURE CPT-4: 78394 05/27/2015 ASSAY OF FREE THYROXINE CPT-4: 35265 05/27/2015 ASSAY THYROID STIM HORMONE CPT-4: 88351 05/27/2015 COMPREHEN METABOLIC PANEL CPT-4: 22528 05/27/2015 COMPLETE CBC W/AUTO DIFF WBC CPT-4: 74563 05/27/2015 LIPID PANEL CPT-4: 31492 05/27/2015 VITAMIN B-12 CPT-4: 52362 05/27/2015 A1C HPLC CPT-4: 54572 05/27/2015 PNEUMOCOCCAL VACC 13 LEN IM CPT-4: 64698 05/26/2015 ADMIN PNEUMOCOCCAL VACCINE CPT-4: G0009 05/26/2015 CUR TOBACCO NON-USER CPT-4: G8457 05/26/2015 OCCULT BLOOD FECES CPT-4: 88478 02/19/2015 OCCULT BLOOD FECES CPT-4: 17135 01/20/2015 ROUTINE VENIPUNCTURE CPT-4: 74113 12/15/2014 ASSAY OF IRON CPT-4: 40074 12/15/2014 COMPLETE CBC W/AUTO DIFF WBC CPT-4: 94133 12/15/2014 CERUM REMOVAL CPT-4: 29762 11/30/2014 PRESCRIP TRANSMIT VIA ERX SY CPT-4: G8553 11/30/2014 ROUTINE VENIPUNCTURE CPT-4: 46736 11/26/2014 COMPREHEN METABOLIC PANEL CPT-4: 49263 11/26/2014 LIPID PANEL CPT-4: 12545 11/26/2014 ROUTINE VENIPUNCTURE CPT-4: 23444 08/14/2014 ASSAY OF FREE THYROXINE CPT-4: 74688 08/14/2014 ASSAY THYROID STIM HORMONE CPT-4: 11342 08/14/2014 COMPREHEN METABOLIC PANEL CPT-4: 67459 08/14/2014 COMPLETE CBC W/AUTO DIFF WBC CPT-4: 22199 08/14/2014 LIPID PANEL CPT-4: 44349 08/14/2014 PRESCRIP TRANSMIT VIA ERX SY CPT-4: G8553 07/23/2014 PRESCRIP TRANSMIT VIA ERX SY CPT-4: G8553 03/09/2014 PRESCRIP TRANSMIT VIA ERX SY CPT-4: G8553 02/05/2014 ROUTINE VENIPUNCTURE CPT-4: 48434 02/04/2014 ASSAY OF FREE THYROXINE CPT-4: 33052 02/04/2014 ASSAY THYROID STIM HORMONE CPT-4: 11440 02/04/2014 COMPREHEN METABOLIC PANEL CPT-4: 91035 02/04/2014 COMPLETE CBC W/AUTO DIFF WBC CPT-4: 39515 02/04/2014 LIPID PANEL CPT-4: 36836 02/04/2014 DRAIN/INJECT JOINT/BURSA CPT-4: 23840 04/07/2013 METHYLPREDNISOLONE 40 MG INJ CPT-4: J1030 04/07/2013 TRIAMCINOLONE ACET INJ NOS CPT-4: J3301 04/07/2013 PRESCRIP TRANSMIT VIA ERX SY CPT-4: G8553 04/07/2013 DRAIN/INJECT JOINT/BURSA CPT-4: 81552 10/09/2012 METHYLPREDNISOLONE 40 MG INJ CPT-4: J1030 10/09/2012 TRIAMCINOLONE ACET INJ NOS CPT-4: J3301 10/09/2012 PRESCRIP TRANSMIT VIA ERX SY CPT-4: G8553 03/28/2012 ROUTINE VENIPUNCTURE CPT-4: 24360 03/18/2012 ASSAY OF FREE THYROXINE CPT-4: 02360 03/18/2012 ASSAY THYROID STIM HORMONE CPT-4: 44499 03/18/2012 COMPREHEN METABOLIC PANEL CPT-4: 41892 03/18/2012 COMPLETE CBC W/AUTO DIFF WBC CPT-4: 52477 03/18/2012 LIPID PANEL CPT-4: 07654 03/18/2012 CERUM REMOVAL CPT-4: 12477 2012 OCCULT BLOOD FECES CPT-4: 01501 09/27/2011 CA SCREEN;PELVIC/BREAST EXAM CPT-4: G0101 09/27/2011 OBTAINING SCREEN PAP SMEAR CPT-4: Q0091 09/27/2011 CUR TOBACCO NON-USER CPT-4: G8457 09/13/2011 PRESCRIP TRANSMIT VIA ERX SY CPT-4: G8553 09/13/2011 PRESCRIP TRANSMIT VIA ERX SY CPT-4: G8553 08/07/2011 ROUTINE VENIPUNCTURE CPT-4: 49542 07/13/2011 ASSAY OF FREE THYROXINE CPT-4: 17273 07/13/2011 ASSAY THYROID STIM HORMONE CPT-4: 72274 07/13/2011 COMPREHEN METABOLIC PANEL CPT-4: 23768 07/13/2011 COMPLETE CBC W/AUTO DIFF WBC CPT-4: 57439 07/13/2011 LIPID PANEL CPT-4: 01161 07/13/2011 ROUTINE VENIPUNCTURE CPT-4: 05566 03/13/2011 COMPREHEN METABOLIC PANEL CPT-4: 48279 03/13/2011 LIPID PANEL CPT-4: 62202 03/13/2011 ASSAY THYROID STIM HORMONE CPT-4: 29849 03/13/2011 ASSAY OF FREE THYROXINE CPT-4: 57960 03/13/2011 PRESCRIP TRANSMIT VIA ERX SY CPT-4: G8553 01/04/2011 ROUTINE VENIPUNCTURE CPT-4: 30878 12/16/2010 LIPID PANEL CPT-4: 45648 12/16/2010 COMPLETE CBC W/AUTO DIFF WBC CPT-4: 43690 12/16/2010 COMPREHEN METABOLIC PANEL CPT-4: 38703 12/16/2010 ASSAY OF FREE THYROXINE CPT-4: 70220 12/16/2010 ASSAY THYROID STIM HORMONE CPT-4: 65070 12/16/2010 INJ TRIGGER POINT 1/2 MUSCL CPT-4: 12645 02/14/2010 TRIAMCINOLONE ACET INJ NOS CPT-4: J3301 02/14/2010 METHYLPREDNISOLONE 40 MG INJ CPT-4: J1030 02/14/2010 THER/PROPH/DIAG INJ SC/IM CPT-4: 21845 02/07/2010 KETOROLAC TROMETHAMINE INJ CPT-4: J1885 02/07/2010 ROUTINE VENIPUNCTURE CPT-4: 90693 12/22/2009 Vital Signs Date Vital 06/26/2022 Blood Pressure 1: 132/78 Code: 8480-6 BMI: 25.5 Code: 02520-6 Heart Rate 1: 96 bpm Height: 5'10" Code: 8302-2 SpO2: 98% Temperature: 36.2 (C) / 97.2 (F) Weight: 178 lbs Code: 87767-9 05/22/2022 Blood Pressure 1: 126/82 Code: 8480-6 BMI: 25.5 Code: 55705-9 Heart Rate 1: 104 bpm Height: 5'10" Code: 8302-2 Respiratory Rate: 20 bpm SpO2: 96% Temperature: 36.8 (C) / 98.2 (F) Weight: 178 lbs Code: 72327-8 02/27/2022 Blood Pressure 1: 142/82 Code: 8480-6 BMI: 25.5 Code: 46043-5 Heart Rate 1: 112 bpm Height: 5'10" Code: 8302-2 Respiratory Rate: 20 bpm SpO2: 96% Temperature: 36.8 (C) / 98.3 (F) Weight: 178 lbs Code: 46239-3 11/23/2021 Blood Pressure 1: 136/82 Code: 8480-6 BMI: 25.7 Code: 59917-7 Heart Rate 1: 72 bpm Height: 5'10" Code: 8302-2 Respiratory Rate: 20 bpm SpO2: 98% Temperature: 36.6 (C) / 97.9 (F) Weight: 179 lbs Code: 66229-3 10/12/2021 Blood Pressure 1: 128/92 Code: 8480-6 BMI: 25.5 Code: 94996-9 Heart Rate 1: 68 bpm Height: 5'10" Code: 8302-2 Respiratory Rate: 20 bpm SpO2: 98% Temperature: 36.7 (C) / 98.1 (F) Weight: 178 lbs Code: 35115-2 08/09/2021 Blood Pressure 1: 127/80 Code: 8480-6 Heart Rate 1: 69 bpm Respiratory Rate: 15 bpm SpO2: 98% Temperature: 36.7 (C) / 98.0 (F) We ight: 171 lbs Code: 11046-5 07/28/2021 Blood Pressure 1: 132/78 Code: 8480-6 Heart Rate 1: 76 bpm Respiratory Rate: 20 bpm SpO2: 96% Temperature: 36.8 (C) / 98.2 (F) We ight: 174 lbs Code: 51877-7 05/12/2021 Blood Pressure 1: 142/80 Code: 8480-6 Heart Rate 1: 76 bpm Respiratory Rate: 20 bpm SpO2: 96% Temperature: 36.8 (C) / 98.2 (F) We ight: 173 lbs Code: 21535-0 03/08/2021 Blood Pressure 1: 124/80 Code: 8480-6 Heart Rate 1: 88 bpm Respiratory Rate: 20 bpm SpO2: 98% Temperature: 36.8 (C) / 98.3 (F) We ight: 175 lbs Code: 03946-5 02/03/2021 Blood Pressure 1: 144/84 Code: 8480-6 Heart Rate 1: 68 bpm Respiratory Rate: 20 bpm SpO2: 97% Temperature: 36.7 (C) / 98.1 (F) We ight: 182 lbs Code: 52054-9 01/04/2021 Blood Pressure 1: 152/86 Code: 8480-6 Heart Rate 1: 72 bpm Respiratory Rate: 20 bpm SpO2: 97% Temperature: 36.6 (C) / 97.8 (F) We ight: 182 lbs Code: 38777-9 10/05/2020 Blood Pressure 1: 124/66 Code: 8480-6 He art Rate 1: 65 bpm 09/20/2020 Blood Pressure 1: 134/76 Code: 8480-6 Heart Rate 1: 60 bpm Respiratory Rate: 20 bpm SpO2: 97% Temperature: 36.1 (C) / 97.0 (F) We ight: 187 lbs Code: 18803-5 05/28/2020 Temperature: 36.8 (C) / 98.3 (F) 05/19/2020 Blood Pressure 1: 128/78 Code: 8480-6 Heart Rate 1: 50 bpm Respiratory Rate: 20 bpm SpO2: 98% Temperature: 36.5 (C) / 97.7 (F) 05/11/2020 Blood Pressure 1: 126/80 Code: 8480-6 BMI: 25.4 Code: 09925-7 Heart Rate 1: 60 bpm Height: 5'10" Code: 8302-2 Respiratory Rate: 20 bpm Temperat ure: 36.6 (C) / 97.8 (F) Weight: 177 lbs Code: 52705-8 05/05/2020 Blood Pressure 1: 122/78 Code: 8480-6 [...] 1: 104/66 Code: 8480-6 BMI: 25.4 Code: 79199-5 Heart Rate 1: 56 bpm Height: 5'10" Code: 8302-2 Respiratory Rate: 20 bpm SpO2: 97% Temperature: 36.6 (C) / 97.8 (F) Weight: 177 lbs Code: 50509-2 10/29/2019 Blood Pressure 1: 114/62 Code: 8480-6 Heart Rate 1: 68 bpm Respiratory Rate: 20 bpm SpO2: 99% Temperature: 36.8 (C) / 98.2 (F) 10/20/2019 Blood Pressure 1: 119/74 Code: 8480-6 Heart Rate 1: 57 bpm Respiratory Rate: 16 bpm SpO2: 99% Temperature: 36.9 (C) / 98.4 (F) We ight: 176 lbs Code: 35622-5 07/07/2019 Blood Pressure 1: 126/74 Code: 8480-6 Heart Rate 1: 72 bpm Respiratory Rate: 16 bpm SpO2: 95% Temperature: 36.8 (C) / 98.2 (F) We ight: 179 lbs Code: 69369-0 05/01/2019 Blood Pressure 1: 126/76 Code: 8480-6 Heart Rate 1: 60 bpm Respiratory Rate: 20 bpm SpO2: 97% Temperature: 36.8 (C) / 98.2 (F) 04/15/2019 Blood Pressure 1: 154/94 Code: 8480-6 BMI: 26.0 Code: 03440-3 Heart Rate 1: 60 bpm Height: 5'10" Code: 8302-2 Respiratory Rate: 18 bpm SpO2: 97% Temperature: 36.6 (C) / 97.9 (F) Weight: 181 lbs Code: 47293-1 11/26/2018 Blood Pressure 1: 142/80 Code: 8480-6 BMI: 26.3 Code: 20907-2 Heart Rate 1: 56 bpm Height: 5'10" Code: 8302-2 Respiratory Rate: 20 bpm SpO2: 97% Temperature: 36.9 (C) / 98.4 (F) Weight: 183 lbs Code: 04858-0 08/08/2018 Blood Pressure 1: 126/68 Code: 8480-6 Heart Rate 1: 76 bpm Height: 5'10" Code: 8302-2 Respiratory Rate: 20 bpm SpO2: 97% Temperature: 36 .7 (C) / 98.0 (F) Weight: Code: 19595-0 06/25/2018 Blood Pressure 1: 112/70 Code: 8480-6 BMI: 25.8 Code: 87418-9 Heart Rate 1: 64 bpm Height: 5'10" Code: 8302-2 Respiratory Rate: 20 bpm SpO2: 95% Temperature: 36.9 (C) / 98.4 (F) Weight: 180 lbs Code: 29315-2 05/20/2018 Blood Pressure 1: 132/100 Code: 8480-6 H eart Rate 1: 76 bpm 05/10/2018 Blood Pressure 1: 144/86 Code: 8480-6 Heart Rate 1: 60 bpm Respiratory Rate: 20 bpm SpO2: 97% Temperature: 36.9 (C) / 98.4 (F) We ight: Code: 81870-0 05/03/2018 Blood Pressure 1: 126/92 Code: 8480-6 Bl ood Pressure 2: 147/79 Code: 8480-6 Heart Rate 1: 64 bpm Height: 5'10" Code: 8302-2 Respiratory Rate : 22 bpm SpO2: 98% Temperature: 36.3 (C) / 97.3 (F) Weight: Code: 15772- 7 04/22/2018 Blood Pressure 1: 140/82 Code: 8480-6 BMI: 26.3 Code: 27338-2 Heart Rate 1: 60 bpm Height: 5'10" Code: 8302-2 Respiratory Rate: 20 bpm SpO2: 95% Temperature: 36.8 (C) / 98.2 (F) Weight: 183 lbs Code: 46552-2 03/05/2018 Blood Pressure 1: 122/64 Code: 8480-6 BMI: 25.7 Code: 93282-5 Heart Rate 1: 82 bpm Height: 5'10" Code: 8302-2 Respiratory Rate: 22 bpm SpO2: 96% Temperature: 36.4 (C) / 97.6 (F) Weight: 179 lbs Code: 36102-1 02/19/2018 Blood Pressure 1: 120/84 Code: 8480-6 Heart Rate 1: 68 bpm SpO2: 96% Temperature: 36.2 (C) / 97.2 (F) Weight: Code: 97034-6 02/13/2018 Blood Pressure 1: 138/90 Cod e: 8480-6 10/18/2017 Blood Pressure 1: 122/78 Code: 8480-6 BMI: 26.5 Code: 15285-0 Heart Rate 1: 72 bpm Height: 5'10" Code: 8302-2 Respiratory Rate: 20 bpm Temperat ure: 36.7 (C) / 98.0 (F) Weight: 185 lbs Code: 08113-4 07/24/2017 Blood Pressure 1: 118/68 Code: 8480-6 Heart Rate 1: 82 bpm Height: 5'10" Code: 8302-2 Respiratory Rate: 20 bpm SpO2: 92% Temperature: 36 .4 (C) / 97.6 (F) Weight: Code: 83259-4 06/14/2017 Blood Pressure 1: 156/98 Code: 8480-6 Heart Rate 1: 84 bpm Height: 5'10" Code: 8302-2 Respiratory Rate: 20 bpm SpO2: 96% Temperature: 36 .9 (C) / 98.5 (F) Weight: Code: 03356-2 06/01/2017 Blood Pressure 1: 122/82 Code: 8480-6 Heart Rate 1: 68 bpm Height: 5'10" Code: 8302-2 Respiratory Rate: 20 bpm Temperature: 36.8 (C) / 98.2 (F) 03/30/2017 Blood Pressure 1: 124/78 Code: 8480-6 Heart Rate 1: 88 bpm Height: 5'10" Code: 8302-2 Respiratory Rate: 20 bpm SpO2: 96% Temperature: 36 .9 (C) / 98.4 (F) Weight: Code: 72315-9 01/17/2017 Blood Pressure 1: 126/74 Code: 8480-6 Heart Rate 1: 72 bpm Height: 5'10" Code: 8302-2 Respiratory Rate: 20 bpm SpO2: 96% Temperature: 37 .0 (C) / 98.6 (F) Weight: Code: 57367-4 12/18/2016 Blood Pressure 1: 128/86 Code: 8480-6 BMI: 24.7 Code: 00514-2 Heart Rate 1: 76 bpm Height: 5'10" Code: 8302-2 Respiratory Rate: 20 bpm SpO2: 96% Temperature: 36.8 (C) / 98.3 (F) Weight: 172 lbs Code: 37106-2 11/02/2016 Blood Pressure 1: 128/80 Code: 8480-6 BMI: 24.7 Code: 05175-4 Heart Rate 1: 72 bpm Height: 5'10" Code: 8302-2 Respiratory Rate: 20 bpm SpO2: 94% Temperature: 36.9 (C) / 98.4 (F) Weight: 172 lbs Code: 86546-7 10/24/2016 Blood Pressure 1: 120/78 Code: 8480-6 BMI: 24.7 Code: 10621-0 Heart Rate 1: 88 bpm Height: 5'10" Code: 8302-2 Respiratory Rate: 18 bpm SpO2: 96% Temperature: 36.5 (C) / 97.7 (F) Weight: 172 lbs Code: 09403-0 02/07/2016 Heart Rate 1: 76 bpm Respiratory Rate: 22 bpm SpO2: 96 % Temperature: 36.4 (C) / 97.6 (F) Weight: Code: 57236-5 05/26/2015 Blood Pressure 1: 124/70 Code: 8480-6 BMI: 25.1 Code: 77035-5 Heart Rate 1: 84 bpm Height: 5'10" Code: 8302-2 Respiratory Rate: 20 bpm Temperat ure: 36.7 (C) / 98.1 (F) Weight: 175 lbs Code: 66348-2 11/30/2014 Blood Pressure 1: 142/94 Code: 8480-6 BMI: 25.1 Code: 22353-8 Heart Rate 1: 80 bpm Height: 5'10" Code: 8302-2 Respiratory Rate: 20 bpm Temperat ure: 36.9 (C) / 98.5 (F) Weight: 175 lbs Code: 53717-8 07/23/2014 Blood Pressure 1: 138/86 Code: 8480-6 BMI: 25.0 Code: 06712-5 Heart Rate 1: 80 bpm Height: 5'10" Code: 8302-2 Respiratory Rate: 20 bpm Temperat ure: 36.4 (C) / 97.6 (F) Weight: 174 lbs Code: 02888-0 03/09/2014 Blood Pressure 1: 122/78 Code: 8480-6 BMI: 25.0 Code: 97335-6 Heart Rate 1: 78 bpm Height: 5'10" Code: 8302-2 Respiratory Rate: 24 bpm Temperat ure: 36.4 (C) / 97.6 (F) Weight: 174 lbs Code: 55633-1 02/05/2014 Blood Pressure 1: 132/80 Code: 8480-6 BMI: 25.0 Code: 19823-4 Heart Rate 1: 84 bpm Height: 5'10" Code: 8302-2 Respiratory Rate: 20 bpm Temperat ure: 36.6 (C) / 97.9 (F) Weight: 174 lbs Code: 62404-5 05/12/2013 Blood Pressure 1: 138/94 Code: 8480-6 BMI: 25.1 Code: 40126-9 Heart Rate 1: 92 bpm Height: 5'10" Code: 8302-2 Respiratory Rate: 20 bpm Temperat ure: 36.7 (C) / 98.1 (F) Weight: 175 lbs Code: 14471-4 04/07/2013 Blood Pressure 1: 136/72 Code: 8480-6 BMI: 25.1 Code: 74079-7 Heart Rate 1: 76 bpm Height: 5'10" Code: 8302-2 Respiratory Rate: 20 bpm Temperat ure: 36.7 (C) / 98.0 (F) Weight: 175 lbs Code: 38692-6 03/31/2013 Blood Pressure 1: 132/94 Code: 8480-6 BMI: 25.1 Code: 20391-2 Heart Rate 1: 76 bpm Height: 5'10" Code: 8302-2 Respiratory Rate: 20 bpm Temperat ure: 36.7 (C) / 98.0 (F) Weight: 175 lbs Code: 70554-4 10/09/2012 Blood Pressure 1: 132/80 Code: 8480-6 BMI: 24.8 Code: 83653-6 Heart Rate 1: 88 bpm Height: 5'10" Code: 8302-2 Temperature: 36.8 (C) / 98.3 (F) Weight: 173 lbs Code: 91317-3 03/28/2012 Blood Pressure 1: 126/82 Code: 8480-6 BMI: 24.7 Code: 34628-1 Heart Rate 1: 72 bpm Height: 5'10" Code: 8302-2 Respiratory Rate: 20 bpm Temperat ure: 36.6 (C) / 97.8 (F) Weight: 172 lbs Code: 77400-6 2012 Blood Pressure 1: 130/72 Code: 8480-6 Heart Rate 1: 80 bpm Height: Code: 8302-2 Temperature: 36.5 (C) / 97.7 (F) Weight: Code: 00202- 7 09/27/2011 Blood Pressure 1: 116/78 Code: 8480-6 BMI: 24.4 Code: 92959-8 Heart Rate 1: 76 bpm Height: 5'10" Code: 8302-2 Respiratory Rate: 20 bpm Temperat ure: 36.9 (C) / 98.4 (F) Weight: 170 lbs Code: 91921-6 09/13/2011 Blood Pressure 1: 124/82 Code: 8480-6 BMI: 24.4 Code: 96347-5 Heart Rate 1: 72 bpm Height: 5'10" Code: 8302-2 Respiratory Rate: 20 bpm Temperat ure: 36.4 (C) / 97.6 (F) Weight: 170 lbs Code: 18909-3 08/07/2011 Blood Pressure 1: 110/74 Code: 8480-6 BMI: 23.2 Code: 72158-3 Heart Rate 1: 60 bpm Height: 5'11" Code: 8302-2 Temperature: 36.4 (C) / 97.5 (F) Weight: 166 lbs Code: 17158-9 02/06/2011 Blood Pressure 1: 96/58 Code : 8480-6 01/20/2011 Blood Pressure 1: 112/78 Cod e: 8480-6 01/12/2011 Blood Pressure 1: 110/48 Code: 8480-6 He art Rate 1: 84 bpm 01/04/2011 Blood Pressure 1: 126/80 Code: 8480-6 Heart Rate 1: 76 bpm Temperature: 36.9 (C) / 98.4 (F) Weight: 168 lbs Code: 35870-2 02/14/2010 Blood Pressure 1: 134/82 Code: 8480-6 Heart Rate 1: 88 bpm Temperature: 36.6 (C) / 97.9 (F) 02/07/2010 Blood Pressure 1: 130/80 Code: 8480-6 BMI: 23.4 Code: 34013-0 Heart Rate 1: 84 bpm Height: 5'10" Code: 8302-2 Temperature: 36.4 (C) / 97.6 (F) Weight: 163 lbs Code: 12361-4 Functional Status No Functional Status data Reason [...] Encounter Performer Location Location Address Codes Date ([id number]) OFFICE/OUTPATIENT VISIT EST Diagnosis: Atrial fibrillation and flutter[ICD10: I48.91] Yvette STUART CristiGarrett [address] [address] CPT- 4: 86673 06/26/2022 ([id number]) OFFICE/OUTPATIENT VISIT EST Diagnosis: Chronic atrial fibrillation[ICD10: I48.20] Diagnosis: Essential hypertension[ICD10: I10] Diagnosis: Skin cancer of arm[ICD10: C44.601] Diagnosis: Mild chronic obstructive pulmonary disease[ICD10: J44.9] Yvette STUART CristiGarrett AKASHNATE [address] [address] CPT-4: 74504 05/22/2022 ([id number]) NURSE/OUTPATIENT VISIT EST Diagnosis: Atrial fibrillation and flutter[ICD10: I48.91] Diagnosis: Hypothyroidism[ICD10: E03.9] Diagnosis: Mixed hyperlipidemia[ICD10: E78.2] Diagnosis: Anemia, unspecified[ICD10: D64.9] Diagnosis: Essential (primary) hypertension[ICD10: I10] Diagnosis: Hyperglycemia, unspecified[ICD10: R73.9] Yvette STUART CristiGarrett JOANN [address] [address] CPT- 4: 99213 02/28/2022 ([id number]) OFFICE/OUTPATIENT VISIT EST Diagnosis: Atypical nevus of right forearm[ICD10: D22.61] Diagnosis: Unspecified atrial flutter[ICD10: I48.92] Diagnosis: Atrial fibrillation and flutter[ICD10: I48.91] Yvette DAVID [address] [address] CPT- 4: 37969 02/27/2022 ([id number]) OFFICE/OUTPATIENT VISIT EST Diagnosis: Anxiety[ICD10: F41.9] Yvette DAVID DO [address] [address] CPT-4: 65063 11/23/2021 ([id number]) OFFICE/OUTPATIENT VISIT EST Diagnosis: Anxiety[ICD10: F41.9] Diagnosis: Stress reaction[ICD10: F43.0] Yvette DAVID [address] [address] CPT-4: 99113 10/12/2021 ([id number]) OFFICE/OUTPATIENT VISIT EST Diagnosis: Contact with and (suspected) exposure to covid-19[ICD10: Z20.822] Diagnosis: Nasopharyngitis[ICD10: J00] Diagnosis: Acute foreign body of left ear canal, initial encounter[ICD10: T16.2XXA] Diagnosis: Acute foreign body of right ear canal[ICD10: T16.1XXA] Martina Laynehollydonato DAVID [address] [address] CPT-4: 75729 08/09/2021 ([id number]) OFFICE/OUTPATIENT VISIT EST Diagnosis: Essential (primary) hypertension[ICD10: I10] Diagnosis: Hypothyroidism[ICD10: E03.9] Diagnosis: Paroxysmal atrial fibrillation[ICD10: I48.0] Diagnosis: Hyperglycemia, unspecified[ICD10: R73.9] Yvette DAVID [address] [address] CPT- 4: 71773 07/28/2021 ([id number]) NURSE/OUTPATIENT VISIT EST Diagnosis: Mixed hyperlipidemia[ICD10: E78.2] Diagnosis: Anemia, unspecified[ICD10: D64.9] Diagnosis: Essential (primary) hypertension[ICD10: I10] Diagnosis: Hypothyroidism, unspecified[ICD10: E03.9] Diagnosis: Hyperglycemia, unspecified[ICD10: R73.9] Yvette DAVID [address] [address] CPT- 4: 56282 07/20/2021 ([id number]) OFFICE/OUTPATIENT VISIT EST Diagnosis: Grieving[ICD10: F43.21] Diagnosis: Inflamed seborrheic keratosis[ICD10: L82.0] Yvette DAVID DO [address] [address] CPT- 4: 56643 05/12/2021 ([id number]) OFFICE/OUTPATIENT VISIT EST Diagnosis: Rhus dermatitis[ICD10: L25.5] Yvette DAVID [address] [address] CPT-4: 33003 03/08/2021 ([id number]) OFFICE/OUTPATIENT VISIT EST Diagnosis: Essential hypertension[ICD10: I10] Diagnosis: Chronic atrial fibrillation[ICD10: I48.20] Diagnosis: Mixed hyperlipidemia[ICD10: E78.2] Diagnosis: Hyperglycemia, unspecified[ICD10: R73.9] Diagnosis: Depression[ICD10: F32.9] Yvette CHAIREZ [address] [address] CPT-4: 69830 02/03/2021 ([id number]) NURSE/OUTPATIENT VISIT EST Diagnosis: Hyperglycemia, unspecified[ICD10: R73.9] Diagnosis: Mixed hyperlipidemia[ICD10: E78.2] Diagnosis: Essential (primary) hypertension[ICD10: I10] Diagnosis: Hypothyroidism, unspecified[ICD10: E03.9] Yvette DAVID DO [address] [address] CPT- 4: 94379 01/31/2021 ([id number]) OFFICE/OUTPATIENT VISIT EST Diagnosis: Vertigo[ICD10: R42] Diagnosis: Chronic atrial fibrillation[ICD10: I48.20] Diagnosis: Cerumen impaction[ICD10: H61.20] Diagnosis: Depression[ICD10: F32.9] Yvette CHAIREZ DO [address] [address] CPT-4: 72612 01/04/2021 ([id number]) NURSE/OUTPATIENT VISIT EST Diagnosis: Essential hypertension[ICD10: I10] Yvette SIMMS HOLLY Michael DAVID DO [address] [address] CPT-4: 06062 10/05/2020 ([id number]) OFFICE/OUTPATIENT VISIT EST Diagnosis: Chronic atrial fibrillation[ICD10: I48.20] Diagnosis: Dizziness[ICD10: R42] Yvette MERCADOLINE CristiGarrett JOANN BORJA [address] [address] CPT-4: 24504 09/20/2020 ([id number]) NURSE/OUTPATIENT VISIT EST Diagnosis: Dysplastic nevus of right lower extremity[ICD10: D23.71] Yvette MERCADOLINE CristiGarrett JOANN BORJA [address] [address] CPT-4: 89533 05/28/2020 ([id number]) NURSE/OUTPATIENT VISIT EST Diagnosis: Essential (primary) hypertension[ICD10: I10] Diagnosis: Type 2 diabetes mellitus with hyperglycemia[ICD10: E11.65] Diagnosis: Anemia, unspecified[ICD10: D64.9] Diagnosis: Hypothyroidism, unspecified[ICD10: E03.9] Yvette MERCADOLINE CristiGarrett JOANN BORJA [address] [address] CPT- 4: 31652 05/05/2020 ([id number]) OFFICE/OUTPATIENT VISIT EST Diagnosis: 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] Diagnosis: Paroxysmal atrial fibrillation[ICD10: I48.0] Yvette Joann STUART Michael TAYLORER [address] [address] CPT- 4: 08795 02/11/2020 ([id number]) OFFICE/OUTPATIENT VISIT EST Diagnosis: Dermatitis[ICD10: L30.9] Diagnosis: 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] Diagnosis: Chronic pruritus[ICD10: L29.9] Yvette STUART Cristi DAVID [address] [address] CPT-4: 24397 01/28/2020 ([id number]) OFFICE/OUTPATIENT VISIT EST Diagnosis: Diarrhea, unspecified[ICD10: R19.7] Diagnosis: Dizziness[ICD10: R42] Diagnosis: Generalized pruritus[ICD10: L29.9] Yvtete COREA Michael TAYLORER [address] [address] CPT-4: 61372 01/05/2020 ([id number]) NURSE/OUTPATIENT VISIT EST Diagnosis: Renal insufficiency[ICD10: N28.9] Yvette Shahid Michael DAVID [address] [address] CPT-4: 04604 12/05/2019 ([id number]) NURSE/OUTPATIENT VISIT EST Diagnosis: Renal insufficiency[ICD10: N28.9] Diagnosis: Dehydration[ICD10: E86.0] Yvette STUART CristiGarrett AKASH SULLIVAN [address] [address] CPT-4: 43681 11/05/2019 ([id number]) OFFICE/OUTPATIENT VISIT EST Diagnosis: Chronic atrial fibrillation[ICD10: I48.20] Diagnosis: Renal insufficiency[ICD10: N28.9] Diagnosis: Dizziness and giddiness[ICD10: R42] Yvette COLEMAN Michael BUSTOSNDMAYE [address] [address] CPT-4: 69176 10/29/2019 ([id number]) NURSE/OUTPATIENT VISIT EST Diagnosis: Hematuria, unspecified[ICD10: R31.9] Yvette BUSTOSNDER DO [address] [address] CPT-4: 01622 10/23/2019 ([id number]) NURSE/OUTPATIENT VISIT EST Diagnosis: Encounter for general adult medical examination without abnormal findings[ICD10: Z00.00] Diagnosis: Essential (primary) hypertension[ICD10: I10] Diagnosis: Hypothyroidism, unspecified[ICD10: E03.9] Diagnosis: Mixed hyperlipidemia[ICD10: E78.2] Yvette BUSTOSNDER DO [address] [address] CPT-4: 86059 10/21/2019 ([id number]) OFFICE/OUTPATIENT VISIT EST Diagnosis: Cerumen impaction[ICD10: H61.20] Diagnosis: Dizziness[ICD10: R42] Diagnosis: Gastritis[ICD10: K29.70] Diagnosis: Dehydration[ICD10: E86.0] Natalee BUSTOS NDER DO [address] [address] CPT-4: 54741 10/20/2019 ([id number]) OFFICE/OUTPATIENT VISIT EST Diagnosis: Paroxysmal atrial fibrillation[ICD10: I48.0] Diagnosis: Essential hypertension[ICD10: I10] Yvette BUSTOSNDER DO [address] [address] CPT-4: 87443 07/07/2019 ([id number]) OFFICE/OUTPATIENT VISIT EST Diagnosis: Essential (primary) hypertension[ICD10: I10] Yvette BUSTOSNDER DO [address] [address] CPT- 4: 83391 05/01/2019 ([id number]) OFFICE/OUTPATIENT VISIT EST Diagnosis: Essential (primary) hypertension[ICD10: I10] Diagnosis: Localized edema[ICD10: R60.0] Yvette BUSTOSNDER DO [address] [address] CPT-4: 53514 04/15/2019 ([id number]) NURSE/OUTPATIENT VISIT EST Diagnosis: Essential (primary) hypertension[ICD10: I10] Diagnosis: Hypothyroidism, unspecified[ICD10: E03.9] Diagnosis: Mixed hyperlipidemia[ICD10: E78.2] Yvette DAVID [address] [address] CPT-4: 48386 04/04/2019 ([id number]) NURSE/OUTPATIENT VISIT EST Diagnosis: Essential (primary) hypertension[ICD10: I10] Diagnosis: Hyperglycemia, unspecified[ICD10: R73.9] Diagnosis: Hypothyroidism, unspecified[ICD10: E03.9] Diagnosis: Mixed hyperlipidemia[ICD10: E78.2] Yvette DAVID [address] [address] CPT-4: 79201 10/07/2018 ([id number]) OFFICE/OUTPATIENT VISIT EST Diagnosis: Essential (primary) hypertension[ICD10: I10] Diagnosis: Presence of right artificial knee joint[ICD10: Z96.651] Diagnosis: Unspecified hearing loss, left ear[ICD10: H91.92] Yvette DAVID [address] [address] CPT- 4: 00584 08/08/2018 OFFICE/OUTPATIENT VISIT EST Diagnosis: Impacted cerumen, bilateral[ICD10: H61.23] Diagnosis: Vertigo of central origin, bilateral[ICD10: H81.43] Diagnosis: Essential (primary) hypertension[ICD10: I10] Diagnosis: Paroxysmal atrial fibrillation[ICD10: I48.0] Diagnosis: Dizziness and giddiness[ICD10: R42] Diagnosis: Sudden idiopathic hearing loss, left ear[ICD10: H91.22] Yvette DAVID [address] [address] CPT-4: 47541 06/25/2018 ([id number]) OFFICE/OUTPATIENT VISIT EST Diagnosis: Essential (primary) hypertension[ICD10: I10] Diagnosis: Vertigo of central origin, bilateral[ICD10: H81.43] Yvette DAVID DO [address] [address] CPT-4: 14006 05/10/2018 ([id number]) OFFICE/OUTPATIENT VISIT EST Diagnosis: Allergic rhinitis due to pollen[ICD10: J30.1] Diagnosis: Dizziness and giddiness[ICD10: R42] Diagnosis: Vertigo of central origin, bilateral[ICD10: H81.43] Diagnosis: Essential (primary) hypertension[ICD10: I10] Yvette DAVID DO [address] [address] CPT- 4: 09215 05/03/2018 OFFICE/OUTPATIENT VISIT EST Diagnosis: Hypothyroidism, unspecified[ICD10: E03.9] Diagnosis: Mixed hyperlipidemia[ICD10: E78.2] Diagnosis: Essential (primary) hypertension[ICD10: I10] Diagnosis: Paroxysmal atrial fibrillation[ICD10: I48.0] Diagnosis: Obstructive sleep apnea (adult) (pediatric)[ICD10: G47.33] Diagnosis: Unilateral primary osteoarthritis, right knee[ICD10: M17.11] Yvette DAVID DO [address] [address] CPT-4: 38221 04/22/2018 ([id number]) OFFICE/OUTPATIENT VISIT EST Diagnosis: Zoster without complications[ICD10: B02.9] Natalee DAVID DO [address] [address] CPT- 4: 55687 03/05/2018 ([id number]) NURSE/OUTPATIENT VISIT EST Diagnosis: Hypothyroidism, unspecified[ICD10: E03.9] Diagnosis: Mixed hyperlipidemia[ICD10: E78.2] Diagnosis: Essential (primary) hypertension[ICD10: I10] Diagnosis: Paroxysmal atrial fibrillation[ICD10: I48.0] Yvette DAVID DO [address] [address] CPT- 4: 38214 02/13/2018 ([id number]) OFFICE/OUTPATIENT VISIT EST Diagnosis: Obstructive sleep apnea (adult) (pediatric)[ICD10: G47.33] Diagnosis: Essential (primary) hypertension[ICD10: I10] Diagnosis: Paroxysmal atrial fibrillation[ICD10: I48.0] Yvette STUART Michael TAYLOR[address] [address] CPT- 4: 47972 10/18/2017 ([id number]) OFFICE/OUTPATIENT VISIT EST Diagnosis: Hypothyroidism, unspecified[ICD10: E03.9] Diagnosis: Other vitamin B12 deficiency anemias[ICD10: D51.8] Diagnosis: Essential (primary) hypertension[ICD10: I10] Diagnosis: Mixed hyperlipidemia[ICD10: E78.2] Yvette COREA Michael TAYLOR[address] [address] CPT-4: 60750 10/15/2017 OFFICE/OUTPATIENT VISIT EST Diagnosis: Impacted cerumen, bilateral[ICD10: H61.23] Diagnosis: Acute sinusitis, unspecified[ICD10: J01.90] Natalee TAYLOR [employer] [address] [address] CPT- 4: 54853 07/24/2017 ([id number]) OFFICE/OUTPATIENT VISIT EST Diagnosis: Obstructive sleep apnea (adult) (pediatric)[ICD10: G47.33] Diagnosis: Tachycardia, unspecified[ICD10: R00.0] Yvette QUINONES Michael TAYLOR[address] [address] CPT-4: 08714 06/14/2017 ([id number]) OFFICE/OUTPATIENT VISIT EST Diagnosis: Zoster without complications[ICD10: B02.9] Demi DILLONQUELINE Michael TAYLOR [employer] [address] [address] CPT- 4: 86890 06/01/2017 ([id number]) OFFICE/OUTPATIENT VISIT EST Diagnosis: Essential (primary) hypertension[ICD10: I10] Diagnosis: Tachycardia, unspecified[ICD10: R00.0] Diagnosis: Other vitamin B12 deficiency anemias[ICD10: D51.8] Yvette DAVID DO [facility] [address] [place] [address] CPT- 4: 03542 03/30/2017 ([id number]) OFFICE/OUTPATIENT VISIT EST Diagnosis: Essential (primary) hypertension[ICD10: I10] Diagnosis: Other fatigue[ICD10: R53.83] Diagnosis: Other chest pain[ICD10: R07.89] Diagnosis: Snoring[ICD10: R06.83] Yvette Vega DO [facility] [address] [place] [address] CPT-4: 48944 01/17/2017 ([id number]) OFFICE/OUTPATIENT VISIT EST Diagnosis: Encounter for general adult medical examination without abnormal findings[ICD10: Z00.00] Diagnosis: Hypothyroidism, unspecified[ICD10: E03.9] Diagnosis: Essential (primary) hypertension[ICD10: I10] Diagnosis: Mixed hyperlipidemia[ICD10: E78.2] Diagnosis: Other usp (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[ICD10: Z79.899] Diagnosis: Hyperglycemia, unspecified[ICD10: R73.9] Yvette DAVID DO [facility] [address] [place] [address] CPT- 4: 73933 12/11/2016 ([id number]) OFFICE/OUTPATIENT VISIT EST Diagnosis: URI, ACUTE[ICD10: J06.9] Diagnosis: Cough[ICD10: R05] Yvette DAVID DO [address] [address] CPT-4: 69430 11/02/19 17 ([id number]) OFFICE/OUTPATIENT VISIT EST Diagnosis: Acute upper respiratory infection, unspecified[ICD10: J06.9] Elidia Calix YVETTE DAVID DO [address] [address] CPT-4: 61234 10/24/2016 ([id number]) OFFICE/OUTPATIENT VISIT EST Diagnosis: Nausea[ICD10: R11.0] Diagnosis: Diarrhea, unspecified[ICD10: R19.7] Diagnosis: Dizziness and giddiness[ICD10: R42] Elidia Yogi COLEMAN [facility] [address] [place] [address] CPT-4: 22389 02/07/2016 ([id number]) OFFICE/OUTPATIENT VISIT EST Diagnosis: HYPOTHYROIDISM[ICD9: 244.9] Diagnosis: HYPERLIPIDEMIA NEC/NOS[ICD9: 272.4] Diagnosis: ANEMIA NOS[ICD9: 285.9] Diagnosis: HYPERTENSION[ICD9: 401.9] Diagnosis: Neuropathy[ICD9: 355.9] Yvette Rodriguez [facility] [address] [place] [address] CPT-4: 01785 05/27/2015 ([id number]) OFFICE/OUTPATIENT VISIT EST Diagnosis: Neuropathy[ICD9: 355.9] Diagnosis: Foot pain[ICD9: 729.5] Diagnosis: HYPOTHYROIDISM[ICD9: 244.9] Diagnosis: PNEUMOCOCCAL VACCINE[ICD10: Z23] Yvette Rodriguez [facility] [address] [place] [address] CPT-4: 64395 05/26/2015 ([id number]) OFFICE/OUTPATIENT VISIT EST Diagnosis: Hematochezia[ICD9: 578.1] Yvette [facility] [address] [place] [address] CPT-4: 03749 02/19/2015 ([id number]) OFFICE/OUTPATIENT VISIT EST Diagnosis: Hematochezia[ICD9: 578.1] Yvette [facility] [address] [place] [address] CPT-4: 21255 01/20/2015 ([id number]) OFFICE/OUTPATIENT VISIT EST Diagnosis: Hematochezia[ICD9: 578.1] Yvette Rodriguez [facility] [address] [place] [address] CPT-4: 83326 12/15/2014 ([id number]) OFFICE/OUTPATIENT VISIT EST Diagnosis: TINEA PEDIS[ICD9: 110.4] Diagnosis: Ceruminosis[ICD9: 380.4] Earline CHAIREZ DO [address] [address] CPT-4: 49760 11/30/2014 ([id number]) OFFICE/OUTPATIENT VISIT EST Diagnosis: HYPERLIPIDEMIA NEC/NOS[ICD9: 272.4] Yvette WAYNE JARED Michael TAYLORER DO [address] [address] CPT-4: 26848 11/26/2014 ([id number]) OFFICE/OUTPATIENT VISIT EST Diagnosis: HYPOTHYROIDISM[ICD9: 244.9] Diagnosis: HYPERLIPIDEMIA NEC/NOS[ICD9: 272.4] Diagnosis: ANEMIA NOS[ICD9: 285.9] Diagnosis: HYPERTENSION[ICD9: 401.9] Yvette DILLONQUELINE CristiGarrett AKASH GIOVANASilvia [address] [address] CPT-4: 34448 08/14/2014 ([id number]) OFFICE/OUTPATIENT VISIT EST Diagnosis: GERD[ICD9: 530.81] Diagnosis: COUGH[ICD10: R05] Yvette MERCADOLINE CristiGarrett JOANN [address] [address] CPT-4: 40374 07/23/20 14 OFFICE/OUTPATIENT VISIT EST Diagnosis: Heel pain[ICD9: 729.5] Earline SmileyWhitneymargarita MERCADOLINE CristiGarrett AKASHGIOVANA R [address] [address] CPT-4: 26404 03/09/2014 ([id number]) OFFICE/OUTPATIENT VISIT EST Diagnosis: HYPOTHYROIDISM[ICD9: 244.9] Diagnosis: HYPERLIPIDEMIA NEC/NOS[ICD9: 272.4] Diagnosis: Right medial knee pain[ICD9: 719.46] Yvette MERCADO TRINA CristiGarrett BRANDONER DO [address] [address] CPT-4: 72979 02/05/2014 ([id number]) OFFICE/OUTPATIENT VISIT EST Diagnosis: HYPOTHYROIDISM[ICD9: 244.9] Diagnosis: HYPERLIPIDEMIA NEC/NOS[ICD9: 272.4] Diagnosis: HYPERTENSION[ICD9: 401.9] Diagnosis: ANEMIA NOS[ICD9: 285.9] Diagnosis: MALAISE AND FATIGUE[ICD9: 780.79] Yvette KONG Zehra ColinGarrett JOANN [employer] [address] [place] [address] CPT-4: 39594 02/04/2014 OFFICE/OUTPATIENT VISIT EST Diagnosis: Right medial knee pain[ICD9: 719.46] Diagnosis: Degeneration, intervertebral disc, lumbar[ICD9: 722.52] Diagnosis: Low back pain[ICD9: 724.2] Earline Rodriguez LUISITO STEFAN [address] [address] CPT-4: 31789 05/12/2013 ([id number]) OFFICE/OUTPATIENT VISIT EST Diagnosis: Lumbar degenerative disc disease[ICD9: 722.52] Diagnosis: Bulging lumbar disc[ICD9: 722.10] Yvette Rodriguez JOANN DO [facility] [address] [place] [address] CPT-4: 64900 04/07/2013 ([id number]) OFFICE/OUTPATIENT VISIT EST Diagnosis: PAIN, LOWER BACK[ICD9: 724.2] Diagnosis: SPASM OF MUSCLE[ICD9: 728.85] Diagnosis: Lumbar degenerative disc disease[ICD9: 722.52] Yvette Rodriguez JOANN [facility] [address] [place] [address] CPT- 4: 28329 03/31/2013 ([id number]) OFFICE/OUTPATIENT VISIT EST Diagnosis: Greater trochanteric bursitis[ICD9: 726.5] Diagnosis: DYSPEPSIA[ICD9: 536.8] Yvette Vega DO [facility] [address] [place] [address] CPT-4: 10050 10/09/2012 OFFICE/OUTPATIENT VISIT EST Diagnosis: CYSTOCELE NOS[ICD9: 618.01] Diagnosis: GERD[ICD9: 530.81] Diagnosis: VAGINITIS[ICD9: 623.5] Yvette HYLTON R DO [address] [address] CPT-4: 39278 03/28/2012 ([id number]) OFFICE/OUTPATIENT VISIT EST Diagnosis: HYPOTHYROIDISM[ICD9: 244.9] Diagnosis: HYPERLIPIDEMIA NEC/NOS[ICD9: 272.4] Diagnosis: HYPERTENSION[ICD9: 401.9] Diagnosis: ANEMIA NOS[ICD9: 285.9] Yvette TAYLOR ER DO [address] [address] CPT-4: 56947 03/18/2012 OFFICE/OUTPATIENT VISIT EST Diagnosis: CERUMEN IMPACTION[ICD9: 380.4] Diagnosis: OTALGIA[ICD9: 388.70] Reyna Eldon YVETTE DAVID DO [address] [address] CPT-4: 40342 2012 OFFICE/OUTPATIENT VISIT EST Diagnosis: COUGH[ICD9: 786.2] Diagnosis: Cystocele[ICD9: 618.01] Diagnosis: VAGINITIS[ICD9: 623.5] Diagnosis: ROUTINE GYNE EXAM[ICD9: V72.31] Yvette DAVID DO [address] [address] CPT-4: 65302 09/27/2011 SPECIMEN HANDLING Diagnosis: [ICD9: ] Diagnosis: [ICD9: ] Diagnosis: [ICD9: ] Diagnosis: [ICD9: ] Yvette DAVID DO [address] [address] CPT-4: 66575 09/27/2011 OFFICE/OUTPATIENT VISIT EST Diagnosis: PHARYNGITIS, ACUTE[ICD9: 462] Diagnosis: URI, ACUTE[ICD9: 465.9] Yvette TAYLOR ER DO [address] [address] CPT-4: 82571 09/13/2011 OFFICE/OUTPATIENT VISIT EST Diagnosis: PHARYNGITIS, ACUTE[ICD9: 462] Diagnosis: COUGH[ICD9: 786.2] Yvette DAVID DO [facility] [address] [place] [address] CPT-4: 71211 08/07/20 11 ([id number]) OFFICE/OUTPATIENT VISIT EST Yvette BUSTOSNDER DO [facility] [address] [place] [address] CPT-4: 45475 01/04/2011 ([id number]) OFFICE/OUTPATIENT VISIT, EST Yvetet BUSTOSNDER DO [facility] [address] [place] [address] CPT-4: 23187 02/14/2010 ([id number]) OFFICE/OUTPATIENT VISIT, EST Yvette DAVID DO [facility] [address] [place] [address] CPT-4: 93707 02/07/2010 Plan of Care Planned Activity Notes Codes Status Date Visit Diagnosis Plan: Atrial fibrillation and flutter Discussion: Increase metoprolol to 50mg po BID Increase amiodarone to 200mg po BID Fwup 1month Defers flu shot ICD-9 : 427.31 ICD-10 : I48.91 06/26/2022 Patient Education: metoprolol succinate- [employer] Co upon [id number] [email or web address] Completed 06/26/2022 Visit Diagnosis Plan: Skin cancer [...] : J44.9 05/22/2022 Appointment: Yvette David WPtel: [address] [place], [place] [phone] FOLLOW UP 05/22/2022 Referral: Anuj Eng WPtel: 1 [facility] [place] Referral Appointment Confirmed 03/08/2022 Appointment: Yvette David WPtel: [address] [place], [place] [phone] US LAB 02/28/2022 Visit Diagnosis Plan: Unspecified [...] : I48.91 02/27/2022 Appointment: Yvette David WPtel: [address] [place], [place] [phone] ACUTE ILLNESS 02/27/2022 Care Plan: Referral Order SNOMED-CT : 30 [id number] Pending 02/27/2022 Care Plan: Referral Order SNOMED-CT : 30 [id number] Pending 02/27/2022 [facility] [phone] [phone] [facility] CANCELED 12/06/2021 Visit Diagnosis Plan: Anxiety Discussion: Improving wi th effexor--wants to keep dose the same ICD-9 : 300.00 ICD-10 : F41.9 11/23/2021 Appointment: Yvette David WPtel: [phone] US FOLLOW UP 11/23/2021 Visit Diagnosis Plan: Anxiety Discussion: Restart effe xor XR at 37.5mg daily Stress Reducers Fwup 6 weeks No tremors noted today ICD-9 : 300.00 ICD-10 : F41.9 10/12/2021 Appointment: Yvette David [facility]el[facility] [phone] [phone] [facility] 10/12/2021 Visit Plan: Supportive [...] T16.2XXA 08/09/2021 Appointment: Martina Lopez WPtel: [phone] [phone] ACUTE ILLNESS 08/09/2021 Patient Education: Patient Medication [...] : R73.9 07/28/2021 Appointment: Yvette David WPtel: [address] [place], [place] [phone] FOLLOW UP 07/28/2021 Appointment: Yvette David WPtel: [address] [place], [place] [phone] LAB 07/20/2021 Visit Diagnosis Plan: Grieving Discussion: Restart Eff exor XR 37.5mg po q AM ICD-9 : 309.0 ICD-10 : F43.21 05/12/2021 Visit Diagnosis Plan: Inflamed seborrheic keratosis Di scussion: Cryotherapy as above ICD-9 : 702.11 ICD-10 : L82.0 05/12/2021 Appointment: Yvette David WPtel: [address] [place], [place] [phone] US FOLLOW UP 05/12/2021 Appointment: Yvette David WPtel: [address] [place], [place] [phone] US assisted patient with opening her eye drops for cataract liane an (sera) CANCELED 03/22/2021 Visit Diagnosis Plan: Rhus dermatitis Discussion: Marielena log 40mg IM x1 Can continue TAC ICD-9 : 692.6 ICD-10 : L25.5 03/08/2021 Appointment: Yvette David WPtel: [address] [place], [place] [phone] US FOLLOW UP 03/08/2021 Visit Diagnosis Plan: [...] : I48.20 02/03/2021 Appointment: Yvette David WPtel: [address] [place], [place] [phone] US FOLLOW UP 02/03/2021 Appointment: Yvette David WPtel: [address] [place], [place] [phone] US LAB 01/31/2021 Visit Diagnosis Plan: Chronic [...] : H61.20 01/04/2021 Appointment: Yvette David WPtel: [address] [place], [place] [phone] ACUTE ILLNESS 01/04/2021 Appointment: Yvette David WPtel: [address] [place], [place] [phone] BP CHECK 10/05/2020 Visit Diagnosis Plan: Chronic atrial fibrillation Disc ussion: Due to symptomatic bradycardia will decrease metoprolol ER to 25mg po BID Bring by BP and pulse readings in 2 weeks ICD-9 : 427.31 ICD-10 : I48.20 09/20/2020 Appointment: Yvette David WPtel: [address] [place], [place] [phone] ACUTE ILLNESS 09/20/2020 Appointment: Yvette David WPtel: [address] [place], [place] [phone] NURSE SERVICES 05/28/2020 Visit Diagnosis Plan: Dysplastic nevus of right lower extremity Discussion: Removal as above and sent to pathology Return in 10 days for suture removal ICD-9 : 216.7 ICD-10 : D23.71 05/19/2020 Appointment: Yvette David WPtel: [address] [place], [place] [phone] FOLLOW UP 05/19/2020 Visit Diagnosis Plan: Diarrhea [...] : I48.20 05/11/2020 Appointment: Yvette David WPtel: [phone] [phone] US Annual Well Visit 05/11/2020 Appointment: Yvette David WPtel: [phone] [phone] US LAB 05/05/2020 Visit Diagnosis Plan: Chronic [...] : I48.0 02/11/2020 Appointment: Yvette David WPtel: [phone] US FOLLOW UP 02/11/2020 Visit Diagnosis Plan: [...] : L29.8 01/28/2020 Appointment: Yvette David WPtel: [address] [place], [place] [phone] ACUTE ILLNESS 01/28/2020 Patient Education: hydroxyzine HCl- [employer] Coupon [id number] https://www.[employer]/samplemd/resources/getResource/61/[email or web address] Completed 01/28/2020 Visit Diagnosis Plan: Diarrhea, unspecified [...] : R42 01/05/2020 Appointment: Yvette David WPtel: [address] [place], [place] [phone] ACUTE ILLNESS 01/05/2020 Appointment: Yvette David WPtel: [address] [place], [place] [phone] US LAB 12/05/2019 Appointment: Yvette David WPtel: [address] [place], [place] [phone] US LAB 11/05/2019 Visit Diagnosis Plan: Dizziness [...] : N28.9 10/29/2019 Appointment: Yvette David WPtel: [address] [place], [place] [phone] FOLLOW UP 10/29/2019 Appointment: Yvette David WPtel: [phone] [phone] UA 10/23/2019 Appointment: Yvette David WPtel: [phone] [place] [phone] LAB 10/21/2019 Visit Diagnosis Plan: Dizziness Discussion: [...] H61.20 10/20/2019 Appointment: Natalee Gray [address] [facility] ACUTE ILLNESS 10/20/2019 Patient Education: meclizine- [employer] Coupon [id number] https://www.[employer]/samplemd/resources/getResource/61/[email or web address]-60nb-gw Completed 10/20/2019 Appointment: Yvette David WPtel: [address] [place], [place] [phone] [place] Canceled, Said patient was feeling lots [...] : I48.0 07/07/2019 Appointment: Yvette David WPtel: [address] [place], [place] [address] FOLLOW UP 07/07/2019 Visit Diagnosis Plan: Essential (primary) hypertension Discussion: Increase HCTZ to 25mg daily Call in 1 week with BP readings ICD-9 : 401.9 ICD-10 : I10 05/01/2019 Appointment: Yvette David WPtel: [address] [place], [place] [address] FOLLOW UP 05/01/2019 Visit Diagnosis Plan: Essential (primary) hypertension Discussion: Change metoprolol to 50mg po q AM and 100mg po q PM Add HCTZ 12.5mg po q AM Monitor home BP and pulse Recheck 2 weeks Start Cardiac Rehab or Wellness ICD-9 : 401.1 ICD-10 : I10 04/15/2019 Appointment: Yvette David WPtel: [address] [place], [place] [phone] FOLLOW UP 04/15/2019 Patient Education: hydrochlorothiazide- OptimizeRX [facility] [id number] https://www.[employer]/samplemd/resources/getResource/61/[email or web address]-nm Completed 04/15/2019 Appointment: Yvette David WPtel: [phone] [phone] US LAB 04/04/2019 Care Plan: US EXAM CHEST US of left breast LOINC : 27662-6 Pending 03/17/2019 Visit Diagnosis Plan: Hypothyroidism, unspecified Disc ussion: Stable ICD-9 : 244.9 ICD-10 : E03.9 11/26/2018 Visit Diagnosis Plan: Paroxysmal atrial fibrillation D iscussion: Stable ICD-9 : 427.31 ICD-10 : I48.0 11/26/2018 Visit Diagnosis Plan: Encounter for [facility] adult medical examination without abnormal findings Discussion: Mediterranean diet Combinati on of cardio and weight bearing exercise Recommend Shingrix Lab and fwup in March ICD-9 : V70.9 ICD-10 : Z00.00 11/26/2018 Visit Diagnosis Plan: Essential (primary) hypertension Discussion: Stable ICD-9 : 401.1 ICD-10 : I10 11/26/2018 Appointment: Yvette David WPtel: [address] [place], [place] [phone] Annual Well Visit 11/26/2018 Appointment: Yvette David WPtel: [address] [place], [place] [phone] US LAB 10/07/2018 Visit Diagnosis Plan: Presence [...] : H91.92 08/08/2018 Appointment: Yvette David WPtel: [address] [place], [place] [phone] US FOLLOW UP 08/08/2018 Appointment: Natalee Gray [address] [place] [address] US CANCELED 07/18/2018 Visit Diagnosis Plan: Sudden [...] : I10 06/25/2018 Appointment: Yvette David WPtel: [address] [place], [place] [phone] [facility] Follow Up 06/25/2018 Patient Education: Patient Medication Summary Completed 06/25/2018 Appointment: Yvette Davidtel: [address] [place], [place] [phone] BP CHECK 05/20/2018 Patient Education: Patient Medication [...] : I10 05/10/2018 Appointment: Yvette David WPtel: [address] [place], [place] [phone] FOLLOW UP 05/10/2018 Patient Education: Patient Medication [...] I10 05/03/2018 Appointment: Yvette David [facility]Ptel: [phone] [facility] ACUTE ILLNESS 05/03/2018 Patient Education: Patient [...] E03.9 04/22/2018 Appointment: Yvette David WPtel: [phone] [phone] FOLLOW UP 04/22/2018 Patient Education: Patient Medication [...] ICD-10 : B02.9 03/05/2018 Appointment: Natalee Gray [address] [place], [place] [phone] ACUTE ILLNESS 03/05/2018 Patient Education: Patient Medication [...] ICD-10 : H61.23 02/19/2018 Appointment: Natalee Gray [address] [place], [place] [phone] ACUTE ILLNESS 02/19/2018 Patient Education: Patient Medication Summary Completed 02/19/2018 Appointment: Yvette David WPtel: [address] [place] [phone] LAB 02/13/2018 Patient Education: Patient Medication Summary [...] : G47.33 10/18/2017 Appointment: Yvette David WPtel: [phone] FOLLOW UP 10/18/2017 Patient Education: Patient Medication Summary Completed 10/18/2017 Appointment: Yvette David WPtel: [phone] [phone] LAB 10/15/2017 Patient Education: Patient Medication [...] ICD-10 : H61.23 07/24/2017 Appointment: Natalee Gray [address] [place], [place] [address] ACUTE ILLNESS 07/24/2017 Patient Education: Patient Medication Summary Completed 07/24/2017 Referral: Jey Kaye WPtel: [address] [facility] [id number] Referral Initiated 07/05/2017 Patient Education: Patient Medication [...] R00.0 06/14/2017 Appointment: Yvette David WPtel: [phone] [facility] FOLLOW UP 06/14/2017 Patient Education: Patient Medication Summary Completed 06/14/2017 Care Plan: Referral Order SNOMED-CT : [id number] Pending 06/14/2017 Visit Plan: ERx for Valtrex, system won' t allow ERx for Prednisone so it is called 10mg 2 po bid x 3 days then 1 po bid x 3 days then 1 po daily x 3 days then 1/2 po daily x 3 days then d/c She declines gabapentin or pain meds Anticipatory guidance discussed. 06/01/2017 Appointment: Dem[facility]ocha [facility]el[phone] [facility] [facility] 06/01/2017 Patient Education: Patient Medication [...] D51.8 03/30/2017 Appointment: Yvette David WPtel: [phone] [phone] 7/6 lm ~sl FOLLOW UP 03/30/2017 Patient [...] R53.83 01/17/2017 Appointment: Yvette David WPtel: [phone] [facility] 4/25 lm`sl FOLLOW UP 01/17/2017 Patient [...] G62.9 12/18/2016 Visit Diagnosis Plan: Encounter for [facility] adult medical examination without abnormal findings Discussion: Increase activity and contin ue healthy eating Continune using urinary incontinence pads at night for nocturia Reviewed labs ICD-9 : V70.9 ICD-10 : Z00.00 12/18/2016 Appointment: Yvette David WPtel: [address] [phone] US 11/13 confirmed ~sl Annual Well Visit 12/18/2016 Patient Education: Patient Medication Summary Completed 12/18/2016 Appointment: Yvette David WPtel: [phone] [phone] US LAB 12/11/2016 Patient Education: Patient Medication [...] : R05 11/02/2016 Appointment: Yvette David WPtel: [phone] FOLLOW UP 11/02/2016 Appointment: Yvette David WPtel: [address] [place], [place] [phone] CANCELED 11/02/2016 Patient Education: Patient Medication Summary Completed 11/02/2016 Visit Diagnosis Plan: Acute upper respiratory infectio n, unspecified Discussion: Rx as above Discussed OTC meds and supportive care Notify if not improving so regimen can be changed before her upcoming trip in 2 weeks ICD-9 : 465.9 ICD-10 : J06.9 10/24/2016 Appointment: Elidia Calix [address] [place] [address] ACUTE ILLNESS 10/24/2016 Patient Education: Patient Medication Summary Completed 10/24/2016 Patient Education: Patient Medication Summary Completed 06/26/2016 Visit Plan: Office dip wnl/BP wnl Does s eem likely to be viral GI illness Supportive care with rxs as above Soft and bland diet Will need bloodwork if not improving 02/07/2016 Appointment: Elidia Calix [address] [place], [place] [phone] ACUTE ILLNESS 02/07/2016 Patient Education: Patient Medication Summary Completed 02/07/2016 Patient Education: Patient Medication Summary Completed 07/01/2015 Appointment: Yvette David WPtel: [address] [place], [place] [phone] LAB 05/27/2015 Patient Education: Patient Medication Summary Completed 05/27/2015 Visit Plan: Trial of Gralise 300mg at be [facility] with 4 oz tonic water Sharron's solution soaks to feet Check TSH, Free T4, B12, CMP, HbA1C now Call in 2weeks 05/26/2015 Appointment: Yvette David WPtel: [address] [place], [place] [phone] 05/25/2015 confirmed w patient ACUTE ILLNESS 10/2014 Patient Education: Patient Medication Summary Completed 05/26/2015 Appointment: Yvette David WPtel: [phone] [phone] US Stool lab 02/19/2015 Patient Education: Patient Medication Summary Completed 02/19/2015 Appointment: Yvette David WPtel: [phone] [phone] [place] Stool lab 01/20/2015 Patient Education: Patient Medication Summary Completed 01/20/2015 Appointment: Yvette David WPtel: [address] [place], [place] [phone] US LAB 12/15/2014 Patient Education: Patient Medication Summary Completed 12/15/2014 Appointment: Earline Morris WPtel: [address] [place], [place] [phone] ACUTE ILLNESS 11/30/2014 Patient Education: Patient Medication Summary Completed 11/30/2014 Appointment: Yvette David WPtel: [address] [place], [place] [phone] US LAB 11/26/2014 Patient Education: Patient Medication Summary Completed 11/26/2014 Appointment: Yvette David WPtel: [address] [place], [place] [phone] US LAB 08/14/2014 Patient Education: Patient Medication Summary Completed 08/14/2014 Visit Plan: Defers bone density Proceed with colonoscopy Change omeprazole to protonix Due for fasting lab next month 07/23/2014 Appointment: Yvette David WPtel: [address] [place], [place] [phone] ACUTE ILLNESS 07/23/2014 Patient Education: Patient Medication Summary Completed 07/23/2014 Patient Education: Patient Medication Summary Completed 06/05/2014 Appointment: Earline Morris WPtel: [address] [place], [place] [phone] US FOLLOW UP 03/09/2014 Patient Education: Patient Medication Summary Completed 03/09/2014 Appointment: Yvette Davidl: [address] [place], [place] [phone] ACUTE ILLNESS 02/05/2014 Patient Education: Patient Medication Summary Completed 02/05/2014 Appointment: Yvette David WPtel: [address] [place], [place] [phone] LAB 02/04/2014 Patient Education: Patient Medication Summary Completed 02/04/2014 Appointment: Earline Morris WPtel: [address] [place], [place] [phone] ACUTE ILLNESS 05/12/2013 Patient Education: Patient Medication Summary Completed 05/12/2013 Visit Plan: MRI results discussed Discus sed epidural injections SI joint injection as above Continue Celebrex 200mg daily 04/07/2013 Appointment: Yvette David WPtel: [address] [place], [place] [phone] 04/04 left message FOLLOW UP 04/07/2013 Patient Education: Patient Medication Summary Completed 04/07/2013 Visit Plan: Restart PT and epidural--may need updated MRI of L/S spine Tylenol prn Celebrex 200mg daily 03/31/2013 Appointment: Yvette David WPtel: [address] [place], [place] [phone] ACUTE ILLNESS 03/31/2013 Patient Education: Patient Medication Summary Completed 03/31/2013 Visit Plan: Injection to hip as above Pt will take Vimovo 500/20mg po daily for next week Call in 1wk on both hip and stomach Discussed that likely has arthritis in hip as well 10/09/2012 Appointment: Yvette David WPtel: [address] [place], [place] [phone] 10/08 Left message ACUTE ILLNESS 10/09/2012 Patient Education: Patient Medication Summary Completed 10/09/2012 Visit Plan: See urology--Dr. Hutchinson for cystocele Start Premarin vaginal Cream 1/2 gm vaginally twice weekly then repeat PAP in 3mos Continue nexium for 4 more weeks then start Zantac daily--notify if cough returns 03/28/2012 Appointment: Yvette David WPtel: [address] [place], [place] [phone] PAP 03/28/2012 Patient Education: Patient Medication Summary Completed 03/28/2012 Appointment: Yvette David WPtel: [address] [place], [place] [phone] LAB 03/18/2012 Patient Education: Patient Medication Summary Completed 03/18/2012 Appointment: Reyna Colón WPtel: [address] [place], [place] [phone] OFFICE SURGERY 2012 Patient Education: Patient Medication Summary Completed 2012 Visit Plan: Pap done Kegel exercises--de fers meds or surgery eval at this time Mammo due in January [place] symbicort 09/27/2011 Appointment: Yvette David WPtel: [address] [place], [place] [phone] FOLLOW UP 09/27/2011 Patient Education: Patient Medication Summary Completed 09/27/2011 Visit Plan: Symbicort 160/4.5 2 p BID 09/13/2011 Appointment: Yvette David WPtel: [address] [place], [place] [phone] ACUTE ILLNESS 09/13/2011 Patient Education: Patient Medication Summary Completed 09/13/2011 Visit Plan: Cefdinir and medrol dose pac k. Discussed if no improvement by Sunday will obtain chest x-ray and CBC with mycoplasma. 08/07/2011 Appointment: Reyna Colón WPtel: [address] [place], [place] [phone] ACUTE ILLNESS 08/07/2011 Patient Education: Patient Medication Summary Completed 08/07/2011 Appointment: Yvette David WPtel: [address] [place], [place] [phone] 07/13/2011 Patient Education: Patient Medication Summary Completed 07/13/2011 Appointment: Yvette David WPtel: [address] [place], [place] [phone] LAB 03/13/2011 Patient Education: Patient Medication Summary Completed 03/13/2011 Appointment: Yvette David WPtel: [address] [place], [place] [phone] BP CHECK 02/06/2011 Patient Education: Patient Medication Summary Completed 02/06/2011 Appointment: Yvette David WPtel: [address] [place], [place] [phone] BP CHECK 01/20/2011 Patient Education: Patient Medication Summary Completed 01/20/2011 Appointment: Yvette David WPtel: [address] [place], [place] [phone] BP CHECK 01/12/2011 Patient Education: Patient Medication Summary Completed 01/12/2011 Visit Plan: Increase Synthroid to 75mcg po daily Increase fish oil to BID Start daily Toprol XL 12.5mg BP check in 1wk TSH and Free T4 in 2mos. 01/04/2011 Appointment: Yvette David WPtel: [address] [place], [place] [phone] FOLLOW UP 01/04/2011 Patient Education: Patient Medication Summary Completed 01/04/2011 Appointment: Yvette David WPtel: [address] [place], [place] [phone] LAB 12/16/2010 Patient Education: Patient Medication Summary Completed 12/16/2010 Visit Plan: Start PT May need MRI 02/14/2010 Appointment: Yvette David WPtel: [address] [place], [place] [phone] OFFICE SURGERY 02/14/2010 Patient Education: Patient Medication [...] (steroid). 02/07/2010 Appointment: Reyna Colón [facility]Ptel: [phone] [facility] [facility] 02/07/2010 Patient Education: Patient Medication Summary Completed 02/07/2010 Appointment: Yvette David WPtel: [phone] [facility] LAB 12/22/2009 Patient Education: Patient Medication Summary Completed 12/22/2009 Referral: Lino Davila [address] [place] [place] Referral Initiated Instructions Comment Date . Supportive [...] data not found Advance Directives Filename Date [id number] 06/03/2012
--- OUTSIDE RECORDS SUMMARY | 2022-08-14 14:08 | XMS REPORT | CCD ---
Author Author Lucille David D.O. Organization [facility] Address [address] [place] [address] Phone Care Team Providers Care Etl In[employer] Developer Name Role Phone Yvette David D.O., PP Unavailable CCM Unavailable Summary Purpose Interface Exchange Insurance Providers Payer name Policy type / Coverage type Covered constitution party ID Effective Begin Date Effective End Date [place]PS MEDIC[place] Medicare Part B [id number] Unknown Cigna Medicare Part B [id number] Unknown Family History Family History data not found Social History Social History Element Codes Description Effective Dates Tobacco history SNOMED CT: [id number] Has never smoked or chewed tobacco 05/26/2015 [...] ICD-10: G62.9 ICD-9: 355.9 12/18/2016 Active 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 ICD-10: Z79.899 ICD-9: V58.69 [...] Fill Instructions amiodarone 200 mg tablet RxNorm: 071781 Take 1 Tablet(s) Oral t wo times a day 06/26/2022 12/22/2022 Active metoprolol succinate ER 50 mg tablet,extended release 24 hr RxNorm: 886967 1 Tablet(s) Oral two times a day 06/26/2022 12/22/2022 Active venlafaxine ER 37.5 mg capsule,extended release 24 hr RxNorm : 407242 Take 1 Capsule(s) Oral QAM 06/16/2022 12/12/2022 Active simvastatin 20 mg tablet RxNorm: 283094 Take 1 Tablet(s) Oral QD 11/21/2022 Active Xarelto 20 mg tablet RxNorm: 3877036 Take 1 Tablet(s) Oral QD 05/22 No Stop Date Active amiodarone 200 mg tablet RxNorm: 407903 Take 1 Tablet(s) Oral QD 06/25/2022 Inactive Euthyrox 88 mcg tablet RxNorm: 645462 TAKE 1 TABLET BY MOUTH ONCE DAILY - DUE FOR UPDATED LAB 05/21/2022 08/18/2022 Active Breztri Aerosphere 160 mcg-9mcg-4.8mcg/actuation HFA a erosol inhaler RxNorm: 3760345 2 Puff(s) Inhalation two times a day in the morning an d evening 05/01/2022 05/01/2022 Inactive Breztri Aerosphere 160 mcg-9mcg-4.8mcg/actuation HFA a erosol inhaler RxNorm: 1327934 2 Puff(s) Inhalation two times a day in the morning an d evening 05/01/2022 05/30/2022 Inactive diltiazem CD 120 mg capsule,extended release 24 hr RxNorm: 8 87058 TAKE 1 CAPSULE BY MOUTH TWICE DAILY REPLACES 180MG DOSE 04/17/2022 10/13/2022 Active pantoprazole 40 mg tablet,delayed release RxNorm: 985393 Take 1 Tablet(s) Oral QD 04/17/2022 10/13/2022 Active Xarelto 10 mg tablet RxNorm: 1239105 Take 1 Tablet(s) Oral QD 03/2105/21/2022 Inactive simvastatin 20 mg tablet RxNorm: 357242 Take 1 Tablet(s) Oral QD 02/23/2022 Inactive levothyroxine 88 mcg tablet RxNorm: 275042 Take 1 table t by mouth once daily due for updated lab 02/22/2022 02/22/2022 Inactive Cartia XT 120 mg capsule,extended release RxNorm: 097181 TAKE 1 CAPSULE BY MOUTH TWICE DAILY REPLACES 180MG DOSE 01/16/2022 01/16/2022 Inactive pantoprazole 40 mg tablet,delayed release RxNorm: 759326 Take 1 Oral QD 12/15/2021 12/15/2021 Inactive scopolamine 1 mg over 3 days transdermal patch RxNorm: 44814 2 Take 1 Application Transdermal Q3D as needed 11/23/2021 06/25/2022 Inactive Effexor XR 37.5 mg capsule,extended release RxNorm: 596573 1 Capsule(s) Oral QAM 11/23/2021 11/23/2021 Inactive levothyroxine 88 mcg tablet RxNorm: 644833 Take 1 tablet by alvaro once daily 11/21/2021 11/21/2021 Inactive diltiazem CD 120 mg capsule,extended release 24 hr RxNorm: 8 68174 TAKE 1 CAPSULE BY MOUTH TWICE DAILY REPLACES 180MG DOSE 10/17/2021 10/17/2021 Inactiv e pantoprazole 40 mg tablet,delayed release RxNorm: 739725 Take 1 Tablet(s) Oral QD 10/17/2021 10/17/2021 Inactive Effexor XR 37.5 mg capsule,extended release RxNorm: 804452 1 Capsule(s) Oral QAM 10/12/2021 11/22/2021 Inactive Xarelto 10 mg tablet RxNorm: 7284953 Take 1 Tablet(s) Oral QD 09/1409/14/2021 Inactive metoprolol succinate ER 50 mg tablet,extended release 24 hr RxNorm: 885316 Take 1/2 (one-half) tablet by mouth twice daily 09/14/2021 03/12/2022 Inact beto simvastatin 20 mg tablet RxNorm: 066221 Take 1 Tablet(s) Oral QD 08/30/2021 Inactive levothyroxine 88 mcg tablet RxNorm: 881750 Take 1 tablet by alvaro once daily 08/28/2021 08/28/2021 Inactive fluticasone propionate 50 mcg/actuation nasal spray,suspensi on RxNorm: 2990410 Take 1 [place] Nasal QD in each nostrilas needed 08/09/2021 09/07/2021 I nactive pantoprazole 40 mg tablet,delayed release RxNorm: 310106 Take 1 Tablet(s) Oral QD 07/19/2021 07/19/2021 Inactive Xarelto 10 mg tablet RxNorm: 9506626 Take 1 Tablet(s) Oral QD 06/2906/29/2021 Inactive Euthyrox 88 mcg tablet RxNorm: 149208 Take 1 tablet by mouth on ce daily 05/24/2021 05/24/2021 Inactive Effexor XR 37.5 mg capsule,extended release RxNorm: 916258 1 Capsule(s) Oral QAM 05/12/2021 07/27/2021 Inactive Xarelto 10 mg tablet RxNorm: 2084023 Take 1 tablet by [facility] once daily Take 1 Tablet(s) Oral QD 04/19/2021 04/19/2021 Inactive metoprolol succinate ER 50 mg tablet,extended release 24 hr RxNorm: 381089 1/2 Tablet(s) Oral two times a day 04/12/2021 04/12/2021 Inactive d ecrease in dose of 1/2 tablet twice daily metoprolol succinate ER 50 mg tablet,extended release 24 hr RxNorm: 356529 Take 1/2 (one-half) tablet by mouth twice daily 04/12/2021 10/11/2021 Inact beto simvastatin 20 mg tablet RxNorm: 206029 Take 1 Tablet(s) Oral QD 03/07/2021 Inactive prednisone 10 mg tablet RxNorm: 981984 Take 1 Tablet(s) Oral tw o times a day 03/01/2021 03/01/2021 Inactive triamcinolone acetonide 0.1 % topical cream RxNorm: 8311037 Apply 1 Application Topical two times a day 03/01/2021 03/01/2021 Inactive prednisone 10 mg tablet RxNorm: 192188 Take 1 Tablet(s) Oral tw o times a day 03/01/2021 03/03/2021 Inactive triamcinolone acetonide 0.1 % topical cream RxNorm: 3261258 Apply 1 Application Topical two times a day 03/01/2021 03/01/2021 Inactive Euthyrox 88 mcg tablet RxNorm: 223644 Take 1 tablet by mouth on ce daily 02/22/2021 02/22/2021 Inactive Effexor XR 37.5 mg capsule,extended release RxNorm: 589327 1 Capsule(s) Oral QAM 02/03/2021 02/02/2021 Inactive Effexor XR 37.5 mg capsule,extended release RxNorm: 706029 1 Capsule(s) Oral QAM 02/03/2021 04/03/2021 Inactive simvastatin 20 mg tablet RxNorm: 032530 Take 1 tablet by mouth once daily 1 01/25/2021 01/25/2021 Inactive Cardizem CD 120 mg capsule,extended release RxNorm: 416008 1 Capsule(s) Oral two times a day replaces 180mg dose 01/19/2021 01/19/2021 Inactive Protonix 40 mg tablet,delayed release RxNorm: 507868 1 Tablet(s ) Oral QD 01/17/2021 01/17/2021 Inactive Effexor XR 37.5 mg capsule,extended release RxNorm: 256721 1 Capsule(s) Oral QAM 01/04/2021 02/02/2021 Inactive scopolamine 1 mg over 3 days transdermal patch RxNorm: 70231 2 1 Application Transdermal behind ear for vertigo 01/04/2021 01/03/2021 Inactive scopolamine 1 mg over 3 days transdermal patch RxNorm: 16514 2 1 Application Transdermal behind ear for vertigo 01/04/2021 01/04/2021 Inactive metoprolol succinate ER 50 mg tablet,extended release 24 hr RxNorm: 780322 1/2 Tablet(s) Oral two times a day 12/29/2020 12/28/2020 Inactive metoprolol succinate ER 50 mg tablet,extended release 24 hr RxNorm: 416933 1/2 Tablet(s) Oral two times a day 12/29/2020 12/29/2020 Inactive d briaease in dose of 1/2 tablet twice daily Xarelto 10 mg tablet RxNorm: 1126436 Take 1 tablet by mouth once daily 12/29/2020 03/29/2021 Inactive Xarelto 10 mg tablet RxNorm: 9375684 Take 1 tablet by mouth once daily 11/26/2020 12/28/2020 Inactive simvastatin 20 mg tablet RxNorm: 778506 Take 1 tablet by mouth once daily 11/26/2020 01/24/2021 Inactive Synthroid 88 mcg tablet RxNorm: 489587 Take 1 tablet by mouth o nce daily 10/21/2020 10/21/2020 Inactive simvastatin 20 mg tablet RxNorm: 655305 Take 1 tablet by mouth once daily 09/30/2020 11/25/2020 Inactive Xarelto 10 mg tablet RxNorm: 0871868 Take 1 tablet by mouth once daily 08/26/2020 11/23/2020 Inactive metoprolol succinate ER 50 mg tablet,extended release 24 hr RxNorm: 224152 1 Tablet(s) Oral two times a day 08/05/2020 11/03/2020 Inactive simvastatin 20 mg tablet RxNorm: 398385 Take 1 tablet by mouth once daily 07/30/2020 09/27/2020 Inactive Synthroid 88 mcg tablet RxNorm: 470375 Take 1 tablet by mouth o nce daily 07/27/2020 10/20/2020 Inactive Protonix 40 mg tablet,delayed release RxNorm: 197053 1 Tablet(s ) Oral QD 07/26/2020 10/24/2020 Inactive Xarelto 10 mg tablet RxNorm: 8574349 1 Tablet(s) Oral QD 06/03/2020 1 10/26/2019 Inactive Cardizem CD 120 mg capsule,extended release RxNorm: 303852 1 Capsule(s) Oral two times a day replaces 180mg dose 05/11/2020 11/07/2020 Inactive Pradaxa 75 mg capsule RxNorm: 0864907 1 Capsule(s) Oral two time s a day 05/11/2020 05/11/2020 Inactive meclizine 25 mg tablet RxNorm: 415554 1 Tablet(s) Oral every ni ght at bedtime 05/05/2020 10/11/2021 Inactive simvastatin 20 mg tablet RxNorm: 524425 Take 1 tablet by mouth once daily 05/04/2020 05/10/2020 Inactive simvastatin 20 mg tablet RxNorm: 444968 TAKE 1 TABLET BY MOUTH ONCE DAILY 04/29/2020 09/19/2020 Inactive Synthroid 88 mcg tablet RxNorm: 211642 TAKE 1 TABLET BY MOUTH O NCE DAILY 04/20/2020 07/18/2020 Inactive diltiazem CD 180 mg capsule,extended release 24 hr RxNorm: 8 80124 TAKE 1 CAPSULE BY MOUTH TWICE DAILY 04/05/2020 05/10/2020 Inactive simvastatin 20 mg tablet RxNorm: 410099 TAKE 1 TABLET BY MOUTH ONCE DAILY 02/24/2020 04/23/2020 Inactive aspirin 325 mg tablet RxNorm: 384267 1 Tablet(s) Oral QD 02/11/2020 0 05/10/2020 Inactive hydroxyzine HCl 10 mg tablet RxNorm: 050945 1 Tablet(s) Oral th ree times a day 01/28/2020 05/10/2020 Inactive diltiazem CD 180 mg capsule,extended release 24 hr RxNorm: 8 78755 TAKE 1 CAPSULE BY MOUTH TWICE DAILY 01/19/2020 04/04/2020 Inactive spironolactone 25 mg tablet RxNorm: 316693 1 Tablet(s) Oral QOD replaces Triam/HCTZ 01/15/2020 01/14/2020 Inactive spironolactone 25 mg tablet RxNorm: 180775 1 Tablet(s) Oral QOD replaces Triam/HCTZ 01/15/2020 01/26/2020 Inactive prednisone 20 mg tablet RxNorm: 465497 1 Tablet(s) Oral QD 01/12/20 20 01/14/2020 Inactive prednisone 20 mg tablet RxNorm: 849477 1 Tablet(s) Oral QD 01/12/20 20 01/11/2020 Inactive Benadryl 25 mg capsule RxNorm: 5345032 1 Capsule(s) Oral every n ight at bedtime 01/08/2020 05/10/2020 Inactive Pepcid 20 mg tablet RxNorm: 148334 1 Tablet(s) Oral two times a day 01/08/2020 07/25/2020 Inactive [place] Original 0.5 %-0.5 % lotion RxNorm: 720137 Topical 0 10/11/2021 Inactive Zyrtec 10 mg tablet RxNorm: 8055040 1 Tablet(s) Oral QAM 01/08/2020 0 05/10/2020 Inactive metoprolol succinate ER 50 mg tablet,extended release 24 hr RxNorm: 181541 1 Tablet(s) Oral two times a day 01/05/2020 04/04/2020 Inactive Protonix 40 mg tablet,delayed release RxNorm: 934213 TA KE 1 TABLET BY MOUTH ONCE DAILY 12/29/2019 05/10/2020 Inactive triamterene 37.5 mg-hydrochlorothiazide 25 mg tablet RxNorm: 289058 TAKE 1/2 (ONE-HALF) TABLET BY MOUTH EVERY OTHER DAY 12/24/2019 01/14/2020 Inact beto triamterene 37.5 mg-hydrochlorothiazide 25 mg tablet RxNorm: 020190 1/2 Tablet(s) Oral QD 12/12/2019 01/26/2020 Inactive diltiazem CD 180 mg capsule,extended release 24 hr RxNorm: 8 27357 TAKE 1 CAPSULE BY MOUTH TWICE DAILY 12/03/2019 01/18/2020 Inactive Eliquis 2.5 mg tablet RxNorm: 1526821 1 Tablet(s) Oral two times a day 11/25/2019 02/10/2020 Inactive simvastatin 20 mg tablet RxNorm: 119480 TAKE 1 TABLET BY MOUTH ONCE DAILY 11/25/2019 02/22/2020 Inactive triamterene 37.5 mg-hydrochlorothiazide 25 mg tablet RxNorm: 088058 1/2 Tablet(s) Oral QOD 11/06/2019 12/11/2019 Inactive triamterene 37.5 mg-hydrochlorothiazide 25 mg tablet RxNorm: 247371 1/2 Tablet(s) Oral QD 10/22/2019 10/28/2019 Inactive meclizine 25 mg tablet RxNorm: 397524 1 Tablet(s) Oral every ni ght at bedtime 10/20/2019 11/19/2019 Inactive Synthroid 88 mcg tablet RxNorm: 443512 TAKE 1 TABLET BY MOUTH O NCE DAILY 10/20/2019 10/21/2019 Inactive scopolamine 1 mg over 3 days transdermal patch RxNorm: 58432 2 1 Unit Dose Transdermal Q72H for vertigo 10/14/2019 01/04/2020 Inactive scopolamine 1 mg over 3 days transdermal patch RxNorm: 75087 2 1 Unit Dose Transdermal Q72H for vertigo 10/14/2019 10/14/2019 Inactive Celebrex 200 mg capsule RxNorm: 362306 TAKE 1 CAPSULE BY MOUTH ONCE DAILY 10/12/2019 10/28/2019 Inactive triamterene 37.5 mg-hydrochlorothiazide 25 mg tablet RxNorm: 829993 1 Tablet(s) Oral QAM 10/06/2019 10/21/2019 Inactive diltiazem CD 180 mg capsule,extended release 24 hr RxNorm: 8 57804 1 Capsule(s) Oral two times a day 10/01/2019 11/29/2019 Inactive simvastatin 20 mg tablet RxNorm: 447974 TAKE 1 TABLET BY MOUTH ONCE DAILY 10/01/2019 10/01/2019 Inactive Patient will need to have fasting labs done before next refill Protonix 40 mg tablet,delayed release RxNorm: 632784 TA KE 1 TABLET BY MOUTH ONCE DAILY 09/28/2019 12/26/2019 Inactive diltiazem CD 180 mg capsule,extended release 24 hr RxNorm: 8 85343 1 Capsule(s) Oral two times a day 08/11/2019 08/10/2019 Inactive diltiazem CD 180 mg capsule,extended release 24 hr RxNorm: 8 27347 1 Capsule(s) Oral two times a day 08/11/2019 09/30/2019 Inactive diltiazem CD 120 mg capsule,extended release 24 hr RxNorm: 8 12325 1 Capsule(s) Oral two times a day 07/23/2019 08/10/2019 Inactive Celebrex 200 mg capsule RxNorm: 829214 1 Capsule(s) Oral QD 019 07/08/2019 Inactive Celebrex 200 mg capsule RxNorm: 358393 1 Capsule(s) Oral QD 019 10/07/2019 Inactive diltiazem CD 120 mg capsule,extended release 24 hr RxNorm: 8 32343 1 Capsule(s) Oral QAM 07/07/2019 07/22/2019 Inactive Eliquis 2.5 mg tablet RxNorm: 3437521 1 Tablet(s) Oral two times a day 07/07/2019 11/04/2019 Inactive metoprolol succinate ER 50 mg tablet,extended release 24 hr RxNorm: 461266 1 Tablet(s) Oral QAM and 2 tablets in the evening 06/30/2019 08/05/2020 Inactive hydrochlorothiazide 25 mg tablet RxNorm: 179429 1 Tablet(s) PO QD 1 07/06/2019 Inactive hydrochlorothiazide 25 mg tablet RxNorm: 963664 1 Tablet(s) PO QD 0 05/08/2019 05/07/2019 Inactive patient needs to follow up i n 2 months and continue BP readings at home hydrochlorothiazide 25 mg tablet RxNorm: 162723 1 Tablet(s) PO QD 0 05/08/2019 06/25/2019 Inactive patient needs to follow up i n 2 months and continue BP readings at home metoprolol succinate ER 50 mg tablet,extended release 24 hr RxNorm: 457589 1 Tablet(s) PO QAM and 2 tablets in the evening 05/08/2019 06/29/2019 In active hydrochlorothiazide 12.5 mg tablet RxNorm: 243408 1 Tablet(s) PO QA M 04/15/2019 05/07/2019 Inactive Synthroid 88 mcg tablet RxNorm: 066898 TAKE 1 TABLET BY MOUTH O NCE DAILY 04/14/2019 10/19/2019 Inactive Protonix 40 mg tablet,delayed release RxNorm: 491587 TA KE 1 TABLET BY MOUTH ONCE DAILY 03/24/2019 09/27/2019 Inactive simvastatin 20 mg tablet RxNorm: 746487 TAKE 1 TABLET BY MOUTH ONCE DAILY 03/24/2019 09/30/2019 Inactive losartan 100 mg tablet RxNorm: 570505 1/2 Tablet(s) PO QD 2019 04/14/2019 Inactive Cozaar 50 mg tablet RxNorm: 927305 1 Tablet(s) PO QHS 01/28/201903/25 Inactive Celebrex 200 mg capsule RxNorm: 741583 TAKE 1 CAPSULE BY MOUTH ONCE DAILY 01/10/2019 07/08/2019 Inactive Protonix 40 mg tablet,delayed release RxNorm: 390086 TA KE 1 TABLET BY MOUTH ONCE DAILY 12/23/2018 03/23/2019 Inactive metoprolol succinate ER 50 mg tablet,extended release 24 hr RxNorm: 698322 1.5 Tablet(s) PO BID 12/03/2018 04/14/2019 Inactive Synthroid 88 mcg tablet RxNorm: 439366 1 Tablet(s) PO QD 10/24/2018 0 04/13/2019 Inactive simvastatin 20 mg tablet RxNorm: 184329 1 Tablet(s) PO QD 09/27/2018 12/25/2018 Inactive simvastatin 20 mg tablet RxNorm: 084537 1 Tablet(s) PO QD 09/26/2018 09/26/2018 Inactive Cozaar 50 mg tablet RxNorm: 398772 1 Tablet(s) PO QHS 09/09/20180 02/2019 Inactive Cozaar 50 mg tablet RxNorm: 793136 1 Tablet(s) PO QHS 09/09/201808/24 Inactive metoprolol succinate ER 50 mg tablet,extended release 24 hr RxNorm: 954557 1.5 Tablet(s) PO BID 09/02/2018 11/30/2018 Inactive Cozaar 50 mg tablet RxNorm: 114727 1 Tablet(s) PO QHS 05/24/201808/24 Inactive Cozaar 25 mg tablet RxNorm: 065143 1 Tablet(s) PO QAM 05/10/201804/25 Inactive clonidine HCl 0.1 mg tablet RxNorm: 025073 1 Tablet(s) PO TID as needed for BP greater than 160/95 05/10/2018 05/20/2018 Inactive betamethasone dipropionate 0.05 % topical cream RxNorm: 2389 20 1 Application TOP BID 05/06/2018 11/25/2018 Inactive prednisone 20 mg tablet RxNorm: 608321 1 Tablet(s) PO QD 05/06/2018 0 05/05/2018 Inactive prednisone 20 mg tablet RxNorm: 326149 1 Tablet(s) PO QD 05/06/2018 0 05/10/2018 Inactive metoprolol succinate ER 50 mg tablet,extended release 24 hr RxNorm: 477135 1.5 Tablet(s) PO BID 05/06/2018 09/01/2018 Inactive Flonase Allergy Relief 50 mcg/actuation nasal spray,suspensi on RxNorm: 4946684 2 [place] NASAL QHS 05/03/2018 11/25/2018 Inactive Celebrex 200 mg capsule RxNorm: 922911 TAKE ONE CAPSULE BY MOUT H ONCE DAILY 04/30/2018 05/02/2018 Inactive Celebrex 200 mg capsule RxNorm: 816079 1 Capsule(s) PO QD TAKE ONE CAPSULE BY MOUTH ONCE DAILY 04/30/2018 05/02/2018 Inactive Synthroid 88 mcg tablet RxNorm: 728225 1 Tablet(s) PO QD 03/12/2018 1 11/08/2017 Inactive acyclovir 5 % topical ointment RxNorm: 852716 1 Unit Dose TOP Q 6H as needed 03/05/2018 11/25/2018 Inactive Protonix 40 mg tablet,delayed release RxNorm: 137128 1 Tablet(s ) PO QD 12/17/2017 12/22/2018 Inactive simvastatin 20 mg tablet RxNorm: 476739 TAKE ONE TABLET BY MOUT H ONCE DAILY 12/17/2017 09/27/2018 Inactive Celebrex 200 mg capsule RxNorm: 090468 TAKE ONE CAPSULE BY MOUT H ONCE DAILY 10/30/2017 04/29/2018 Inactive Synthroid 88 mcg tablet RxNorm: 026015 1 Tablet(s) PO QD 09/19/2017 0 03/12/2018 Inactive Synthroid 88 mcg tablet RxNorm: 524216 1 Tablet(s) PO QD Needs updated labs 09/19/2017 10/24/2018 Inactive Synthroid 88 mcg tablet RxNorm: 493707 1 Tablet(s) PO QD 06/20/2017 1 11/18/2016 Inactive simvastatin 20 mg tablet RxNorm: 387812 1 Tablet(s) PO QD 06/15/2017 09/12/2017 Inactive simvastatin 20 mg tablet RxNorm: 649984 1 Tablet(s) PO QD 06/15/2017 06/14/2017 Inactive metoprolol succinate ER 25 mg tablet,extended release 24 hr RxNorm: 051931 1 Tablet(s) PO QD 06/14/2017 07/23/2017 Inactive Valtrex 1 gram tablet RxNorm: 896862 1 Tablet(s) PO TID 06/01/2017 Inactive Celebrex 200 mg capsule RxNorm: 174152 1 Capsule(s) PO QD 05/01/2017 10/27/2017 Inactive Toprol XL 25 mg tablet,extended release RxNorm: 181160 1/2 Tabl et(s) PO QD 04/12/2017 06/13/2017 Inactive simvastatin 20 mg tablet RxNorm: 067590 1 Tablet(s) PO QD 03/19/2017 06/14/2017 Inactive Synthroid 88 mcg tablet RxNorm: 091816 1 Tablet(s) PO QD 03/14/2017 0 06/20/2017 Inactive aspirin 81 mg chewable tablet RxNorm: 331357 1 Tablet(s) PO QD 12/2404/21/2018 Inactive simvastatin 20 mg tablet RxNorm: 308597 TAKE ONE TABLET BY MOUT H ONCE DAILY 12/19/2016 03/19/2017 Inactive gabapentin 300 mg capsule RxNorm: 220730 1 Capsule(s) PO QHS 201603/29/2017 Inactive Protonix 40 mg tablet,delayed release RxNorm: 590396 TA KE ONE TABLET BY MOUTH ONCE DAILY 12/14/2016 12/08/2017 Inactive Flonase Allergy Relief 50 mcg/actuation nasal spray,suspensi on RxNorm: 8675211 2 [place] NASAL QHS 11/02/2016 12/17/2016 Inactive clotrimazole-betamethasone 1 %-0.05 % topical cream RxNorm: 993360 1 Application TOP BID 11/02/2016 11/01/2016 Inactive clotrimazole-betamethasone 1 %-0.05 % topical cream RxNorm: 951474 1 Application TOP BID 11/02/2016 12/17/2016 Inactive Tessalon Perles 100 mg capsule RxNorm: 632481 1 Capsule(s) PO TID 0 11/02/2016 12/17/2016 Inactive amoxicillin 500 mg tablet RxNorm: 987932 1 Tablet(s) PO TID 017 11/01/2016 Inactive Toprol XL 25 mg tablet,extended release RxNorm: 276991 TAKE ONE-HALF TABLET BY MOUTH ONCE DAILY 10/19/2016 04/12/2017 Inactive Toprol XL 25 mg tablet,extended release RxNorm: 881119 1/2 Tablet(s) PO QD Due for routine fasting labs and appointment 10/19/2016 01/16/2017 Inactiv e gabapentin 600 mg tablet RxNorm: 869041 1 Tablet(s) PO QHS 07/24/20 16 12/17/2016 Inactive gabapentin 600 mg tablet RxNorm: 994890 TAKE ONE TABLET BY MOUT H AT BEDTIME 07/24/2016 07/23/2016 Inactive simvastatin 20 mg tablet RxNorm: 298276 TAKE ONE TABLET BY MOUT H ONCE DAILY 06/15/2016 12/11/2016 Inactive Celebrex 200 mg capsule RxNorm: 658426 1 Capsule(s) PO QD 05/10/2016 05/01/2017 Inactive Celebrex 200 mg capsule RxNorm: 117226 1 Capsule(s) PO QD 05/09/2016 05/09/2016 Inactive Synthroid 88 mcg tablet RxNorm: 003560 Tablet(s) 1 Tablet(s) PO QD 03/21/2016 09/16/2016 Inactive Synthroid 88 mcg tablet RxNorm: 859359 1 Tablet(s) PO QD 03/20/2016 0 03/20/2016 Inactive simvastatin 20 mg tablet RxNorm: 665057 TAKE ONE TABLET BY MOUT H ONCE DAILY 03/06/2016 06/03/2016 Inactive meclizine 25 mg tablet RxNorm: 409142 1 Tablet(s) PO TID as nee ded dizziness 02/07/2016 12/17/2016 Inactive Zofran ODT 4 mg disintegrating tablet RxNorm: 751897 1 Tablet(s) PO Q6H as needed for nausea 02/07/2016 12/17/2016 Inactive gabapentin 600 mg tablet RxNorm: 878425 TAKE ONE TABLET BY MOUT H AT BEDTIME 01/20/2016 07/17/2016 Inactive Synthroid 88 mcg tablet RxNorm: 303606 1 Tablet(s) PO QD 12/27/2015 0 03/19/2016 Inactive simvastatin 20 mg tablet RxNorm: 550346 1 Tablet(s) PO QD 12/06/2015 03/04/2016 Inactive Protonix 40 mg tablet,delayed release RxNorm: 466349 1 Tablet(s ) PO QD 12/06/2015 12/13/2016 Inactive Celebrex 200 mg capsule RxNorm: 756522 1 Capsule(s) PO QD 11/03/2015 05/10/2016 Inactive Celebrex 200 mg capsule RxNorm: 348443 1 Capsule(s) PO QD 11/03/2015 11/02/2015 Inactive simvastatin 20 mg tablet RxNorm: 925850 1 Tablet(s) PO QD 09/06/2015 12/04/2015 Inactive Gralise 600 mg tablet,extended release RxNorm: 6779021 1 Tablet( s) PO QD 08/23/2015 10/18/2015 Inactive Synthroid 88 mcg tablet RxNorm: 823523 1 Tablet(s) PO QD 06/30/2015 0 09/27/2015 Inactive simvastatin 20 mg tablet RxNorm: 501443 1 Tablet(s) PO QD 06/07/2015 09/04/2015 Inactive Synthroid 88 mcg tablet RxNorm: 240230 1 Tablet(s) PO QD 06/07/2015 1 Inactive Celebrex 200 mg capsule RxNorm: 220526 1 Capsule(s) PO QD 06/07/2015 11/02/2015 Inactive Protonix 40 mg tablet,delayed release RxNorm: 351110 1 Tablet(s ) PO QD 06/07/2015 12/03/2015 Inactive Toprol XL 25 mg tablet,extended release RxNorm: 571880 1/2 Tabl et(s) PO QD 04/13/2015 10/09/2015 Inactive [SAVINGS FOR UNINSUR ED PATIENTS -- BIN:[id number], PCN: ASPROD1, Group: [id number], ID# [id number], Process claim through [employer], for questions: . THIS IS NOT INSURANCE.] Synthroid 88 mcg tablet RxNorm: 813647 1 Tablet(s) PO Q D TAKE ONE TABLET BY MOUTH ONCE DAILY 03/29/2015 06/30/2015 Inactive Celebrex 200 mg capsule RxNorm: 975021 1 Capsule(s) PO QD 03/22/2015 06/06/2015 Inactive Celebrex 200 mg capsule RxNorm: 128591 1 Capsule(s) PO QD 02/22/2015 03/21/2015 Inactive Celebrex 200 mg capsule RxNorm: 608369 1 Capsule(s) PO QD 01/21/2015 02/21/2015 Inactive Synthroid 88 mcg tablet RxNorm: 217746 1 Tablet(s) PO Q D TAKE ONE TABLET BY MOUTH ONCE DAILY 12/21/2014 03/29/2015 Inactive meloxicam 15 mg tablet RxNorm: 078215 1 Tablet(s) PO QD 12/09/2014 Inactive [SAVINGS FOR NON-COVERED DRUGS -- BIN:00 [id number], PCN: ASPROD1, Group: XXXXX, ID# [id number], Questions: . THIS IS NOT INSURANCE.] Protonix 40 mg tablet,delayed release RxNorm: 442757 1 Tablet(s ) PO QD 12/08/2014 06/05/2015 Inactive Protonix 40 mg tablet,delayed release RxNorm: 351155 1 Tablet(s ) PO QD 12/07/2014 12/07/2014 Inactive simvastatin 20 mg tablet RxNorm: 566220 TAKE ONE TABLET BY MOUT H ONCE DAILY 11/30/2014 05/28/2015 Inactive clotrimazole-betamethasone 1 %-0.05 % topical cream RxNorm: 3087 14 TOP BID 11/30/2014 11/01/2016 Inactive acetic acid 2 % ear solution RxNorm: 813823 5 Drop(s) OTIC Left ear QID 11/30/2014 12/06/2014 Inactive meloxicam 15 mg tablet RxNorm: 404250 1 Tablet(s) PO QD 10/30/2014 Inactive [SAVINGS FOR NON-COVERED DRUGS -- BIN:00 3585, PCN: ASPROD1, Group: [id number], ID# [id number], Questions: . THIS IS NOT INSURANCE.] meloxicam 15 mg tablet RxNorm: 736446 1 Tablet(s) PO QD 10/30/2014 Inactive Toprol XL 25 mg tablet,extended release RxNorm: 066925 1/2 Tabl et(s) PO QD 10/12/2014 04/09/2015 Inactive [SAVINGS FOR UNINSUR ED PATIENTS -- BIN:[id number], PCN: [id number], Group: [id number], ID# [id number], Process claim through [employer], for questions: . THIS IS NOT INSURANCE.] Synthroid 88 mcg tablet RxNorm: 119236 1 Tablet(s) PO Q D TAKE ONE TABLET BY MOUTH ONCE DAILY 09/21/2014 12/19/2014 Inactive Protonix 40 mg tablet,delayed release RxNorm: 318720 1 Tablet(s ) PO QD 07/23/2014 11/19/2014 Inactive Synthroid 88 mcg tablet RxNorm: 482717 TAKE ONE TABLET BY MOUTH ONCE DAILY 06/23/2014 09/21/2014 Inactive omeprazole 40 mg capsule,delayed release RxNorm: 391449 1 Capsu le(s) PO QD 06/16/2014 07/22/2014 Inactive [SAVINGS FOR UNINSUR ED PATIENTS -- [id number], PCN: [id number], Group: [id number], ID# [id number], Process claim through [employer], for questions: . THIS IS NOT INSURANCE.] Toprol XL 25 mg tablet,extended release RxNorm: 650182 1/2 Tabl et(s) PO QD 04/13/2014 10/12/2014 Inactive Celebrex 200 mg capsule RxNorm: 096698 1 Capsule(s) PO QD for pain 03/16/2014 10/29/2014 Inactive Medrol ([place]) 4 mg tablets in a dose pack RxNorm: 144913 Tablet(s) PO as directed 03/09/2014 07/22/2014 Inactive Synthroid 88 mcg tablet RxNorm: 626084 1 Tablet(s) PO QD 02/17/2014 0 06/23/2014 Inactive Celebrex 200 mg capsule RxNorm: 216122 1 Capsule(s) PO QD for pain 02/17/2014 03/15/2014 Inactive omeprazole 40 mg capsule,delayed release RxNorm: 183521 1 Capsu le(s) PO QD 02/05/2014 06/16/2014 Inactive Protonix 40 mg tablet,delayed release RxNorm: 090359 1 Tablet(s ) PO QD 01/23/2014 05/10/2020 Inactive Toprol XL 25 mg tablet,extended release RxNorm: 260438 1/2 Tablet(s) PO QD TAKE ONE-HALF TABLET BY MOUTH EVERY DAY 01/12/2014 04/13/2014 Inactive Synthroid 88 mcg tablet RxNorm: 765486 Tablet(s) PO MANDY E ONE TABLET BY MOUTH EVERY DAY 11/17/2013 02/17/2014 Inactive Celebrex 200 mg capsule RxNorm: 489576 1 Capsule(s) PO QD for pain 10/20/2013 02/17/2014 Inactive Toprol XL 25 mg tablet,extended release RxNorm: 778134 1/2 Tabl et(s) PO QD 07/17/2013 01/12/2014 Inactive Nexium 40 mg capsule,delayed release RxNorm: 960014 1 C apsule(s) PO QD Generic ok 07/14/2013 09/21/2013 Inactive Celebrex 200 mg capsule RxNorm: 799305 1 Capsule(s) PO QD for pain 06/19/2013 10/20/2013 Inactive Synthroid 88 mcg tablet RxNorm: 701822 1 Tablet(s) PO QD 05/13/2013 0 11/17/2013 Inactive TAKE ONE TABLET BY MOUTH EVERY DAY Nexium 40 mg capsule,delayed release RxNorm: 851356 Cap maureen(s) PO TAKE ONE CAPSULE BY MOUTH EVERY DAY 05/05/2013 07/13/2013 Inactive Celebrex 200 mg capsule RxNorm: 375574 1 Capsule(s) PO QD for pain 04/07/2013 06/19/2013 Inactive Esgic-Plus 50 mg-500 mg-40 mg capsule RxNorm: 522136 1 Capsule(s) PO Q4-6H prn headache 04/07/2013 04/07/2013 Inactive Toprol XL 25 mg tablet,extended release RxNorm: 399735 1/2 Tabl et(s) PO QD 12/16/2012 06/13/2013 Inactive Nexium 40 mg capsule,delayed release RxNorm: 541158 1 Capsule(s ) PO QD 11/20/2012 03/19/2013 Inactive Synthroid 88 mcg tablet RxNorm: 842913 1 Tablet(s) PO QD 10/28/2012 0 04/25/2013 Inactive TAKE ONE TABLET BY MOUTH EVERY DAY Toprol XL 25 mg tablet,extended release RxNorm: 277162 1/2 Tabl et(s) PO QD 09/25/2012 12/16/2012 Inactive Synthroid 88 mcg tablet RxNorm: 815099 1 Tablet(s) PO QD 04/22/2012 0 10/28/2012 Inactive TAKE ONE TABLET BY MOUTH EVERY DAY Nexium 40 mg capsule,delayed release RxNorm: 190865 1 Capsule(s ) PO QD 04/16/2012 11/20/2012 Inactive Esgic-Plus 50 mg-500 mg-40 mg capsule RxNorm: 238580 1 Capsule(s) PO Q4-6H prn headache 03/28/2012 04/06/2013 Inactive Toprol XL 25 mg tablet,extended release RxNorm: 195688 1/2 Tabl et(s) PO QD 03/07/2012 09/25/2012 Inactive Toprol XL 25 mg 24 hr Tab RxNorm: 708720 1/2 Tablet(s) PO QD 201101/03/2012 Inactive Three times a week Synthroid 88 mcg Tab RxNorm: 141237 1 Tablet(s) PO QD 10/10/201112/23 Inactive TAKE ONE TABLET BY MOUTH EVERY DAY prednisone 20 mg Tab RxNorm: 441317 1 Tablet(s) PO BID 09/13/2011 Inactive doxycycline 100 mg Cap RxNorm: 0175255 1 Capsule(s) PO BID 09/13/2009/22/2011 Inactive cefdinir 300 mg Cap RxNorm: 607673 1 Capsule(s) PO BID 08/07/2011 Inactive Synthroid 88 mcg Tab RxNorm: 592768 1 Tablet(s) PO QD 07/19/201109/24 Inactive TAKE ONE TABLET BY MOUTH EVERY DAY Synthroid 88 mcg Tab RxNorm: 897519 1 Tablet(s) PO QD 07/19/201103/26 Inactive TAKE ONE TABLET BY MOUTH EVERY DAY Synthroid 88 mcg Tab RxNorm: 293562 1 Tablet(s) PO QD 07/18/201106/25 Inactive TAKE ONE TABLET BY MOUTH EVERY DAY Synthroid 88 mcg Tab RxNorm: 952875 1 Tablet(s) PO QD 05/15/201106/25 Inactive TAKE ONE TABLET BY MOUTH EVERY DAY Synthroid 88 mcg Tab RxNorm: 761791 1 Tablet(s) PO QD 03/15/201104/25 Inactive Synthroid 75 mcg Tab RxNorm: 858176 1 Tablet(s) PO QD 01/04/201102/22 Inactive Synthroid 50 mcg Tab RxNorm: 501958 1 Tablet(s) PO QD G eneric okay. Please explain to patient that she may see more variation in her thyroid labs and increased symptoms. 07/07/2010 03/14/2011 Inactive Prednisone 20 mg Tab RxNorm: 035027 1 Tablet(s) PO BID 02/14/2010 Inactive Flexeril 10 mg Tab RxNorm: 135795 1 Tablet(s) PO TID 02/07/201002/13 Inactive Synthroid 25 mcg Tab RxNorm: 313182 1 Tablet(s) PO QD 12/29/200902/23 Inactive Synthroid 50 mcg Tab RxNorm: 837594 1 Tablet(s) PO QD 12/29/2009/0 11/2009 Inactive Vitamin D3 2,000 unit tablet RxNorm: 098811 1 Tablet(s) PO QAM 2014 Active coenzyme Q10 200 mg tablet RxNorm: 866365 1 Tablet(s) PO QD 09/01/2014 Active Trelegy Ellipta inhalation RxNorm: 0654956 inhalation 05/30/2022 Active Vitamin B12 1000mcg Tablet RxNorm: 1/2 Tablet(s) PO QD 04/03/2017 Active gabapentin 600 mg tablet RxNorm: 267795 1 Tablet(s) PO QPM 01/20/20 16 01/19/2016 Inactive Fish Oil 1,000 mg capsule RxNorm: 1 Capsule(s) PO QHS 10/18/2017 0 10/17/2017 Inactive Toprol XL 25 mg 24 hr Tab RxNorm: 389433 1/2 Tablet(s) PO QD 201103/06/2012 Inactive turmeric root extract oral RxNorm: 6053292 oral 05/26/20152014 Inactive Esgic 50 mg-325 mg-40 mg tablet RxNorm: 539678 1 Tablet (s) PO Q4H as needed for pain 05/26/2015 05/25/2015 Inactive Synthroid 88 mcg Tab RxNorm: 043640 1 Tablet(s) PO QD 03/15/201102/23 Inactive Calcium with Vitamin D 600 mg-400 unit Tab RxNorm: 705412 1 Tab let(s) PO BID 03/31/2013 03/30/2013 Inactive Synthroid 50 mcg Tab RxNorm: 066574 1 Tablet(s) PO QD 03/16/201002/23 Inactive Celebrex 200 mg capsule RxNorm: 788406 1 Capsule(s) PO QD 01/21/2015 01/20/2015 Inactive betamethasone dipropionate 0.05 % topical cream RxNorm: 2389 20 1 Application TOP BID 05/06/2018 05/05/2018 Inactive Protonix 40 mg tablet,delayed release RxNorm: 885844 1 Tablet(s ) PO QD 01/23/2014 01/23/2014 Inactive Calcium + D 600 mg (1,500)-200 unit Tab RxNorm: 409288 1 Tablet (s) PO QD 01/04/2011 01/03/2011 Inactive simvastatin 20 mg tablet RxNorm: 852659 1 Tablet(s) PO QD 11/30/2014 11/29/2014 Inactive Fish Oil 1,000 mg capsule RxNorm: 2 Capsule(s) PO QD 05/26/2015 Inactive Gralise 600 mg tablet,extended release RxNorm: 7592394 1 Tablet( s) PO QD 08/23/2015 08/22/2015 Inactive Vitamin B12 1000mcg Tablet RxNorm: 1 Tablet(s) PO QD 04/03/2017 Inactive Esgic-Plus 50 mg-500 mg-40 mg Cap RxNorm: 723713 1 Caps ule(s) PO Q4-6H prn headache 03/28/2012 03/27/2012 Inactive Cozaar 50 mg tablet RxNorm: 489969 1 Tablet(s) PO QHS 05/24/201804/26 Inactive Toprol XL 25 mg 24 hr Tab RxNorm: 763421 2 Tablet(s) PO Three t imes a week 01/01/2012 12/31/2011 Inactive metoprolol succinate ER 25 mg tablet,extended release 24 hr RxNorm: 747469 1 Tablet(s) PO TID 10/18/2017 10/17/2017 Inactive metoprolol succinate ER 50 mg tablet,extended release 24 hr RxNorm: 465859 1.5 Tablet(s) PO QAM and tablet at bedtime 05/06/2018 05/05/2018 Inactive Esgic-Plus 50 mg-500 mg-40 mg Cap RxNorm: 721490 1 Capsule(s) P O Q4-6H 08/07/2011 08/06/2011 Inactive metoprolol succinate ER 50 mg tablet,extended release 24 hr RxNorm: 765130 1 Tablet(s) PO QD 04/22/2018 04/21/2018 Inactive Multivitamin & Mineral Formula Tab RxNorm: 1 Tablet(s) PO QD 0 03/31/2013 03/30/2013 Inactive metoprolol succinate ER 50 mg tablet,extended release 24 hr RxNorm: 588264 2 Tablet(s) PO QAM and 1.5 tablets (75mg) at bedtime 05/01/2019 9 Inactive Fish Oil 1,000 mg Cap RxNorm: 1 Capsule(s) PO QD 03/31/20132012 Inactive pantoprazole 40 mg tablet,delayed release RxNorm: 313400 1 Tabl et(s) PO QD 02/05/2014 02/04/2014 Inactive Eliquis 2.5 mg tablet RxNorm: 7687008 1 Tablet(s) PO BID 07/07/2019 1 Inactive Medrol 4 mg Tab RxNorm: 740547 Tablet(s) PO as directed 03/28/2012 Inactive Synthroid 75 mcg Tab RxNorm: 311878 1 Tablet(s) PO QD 02/14/201001/23 Inactive aspirin 81 mg tablet RxNorm: 432654 1 Tablet(s) PO QD 05/26/201509/2014 Inactive meclizine 25 mg tablet RxNorm: 565443 1 Tablet(s) PO TID as needed 11/26/2018 11/25/2018 Inactive metoprolol succinate ER 50 mg tablet,extended release 24 hr RxNorm: 098219 1 Tablet(s) PO QAM and 2 tablets in the evening 05/08/2019 05/07/2019 In active Aspirin 81 mg Tab RxNorm: 878932 1 Tablet(s) PO QD 03/31/2013 013 Inactive Vitamin D3 1,000 unit capsule RxNorm: 058787 1 Capsule(s) PO QD 04/201303/30/2013 Inactive Medication Administered No Medication Administered data Immunizations Vaccine Codes Dose Date Status Pneumococcal CVX: 133 0.5 ml 05/26/2015 Results Observation Observation Code Item Item Code Result Date S ervice Location GLYCOSYLATED HEMOGLOBIN TEST 91767 Hgb A1c 07106-7 6.0 % 0 03/01/2022 Unknown MEAN GLUC 5630734 Calc Mean Gluc 126 mg/dL 03/01/2022 Unkn own COMPREHENSIVE METABOLIC 96373 AST 16 U/L 2021 Unknown COMPREHENSIVE METABOLIC 47311 ALT 15 U/L 2021 Unknown COMPREHENSIVE METABOLIC 04405 BUN 18 mg/dL 2021 Unknown COMPREHENSIVE METABOLIC 01834 ALBUMIN 4.3 g/dL 2021 Unknown COMPREHENSIVE METABOLIC 87156 CHLORIDE 104 mmol/L 02/28 Unknown COMPREHENSIVE METABOLIC 29531 Bili Total 0.8 mg/dL 02/28 Unknown COMPREHENSIVE METABOLIC 60450 ALK PHOS 93 U/L 2021 Unknown COMPREHENSIVE METABOLIC 91680 SODIUM 143 mmol/L 02/28 Unknown COMPREHENSIVE METABOLIC 06759 CREATININE 0.82 mg/dL 03/2022 Unknown COMPREHENSIVE METABOLIC 26656 CALCIUM 9.8 mg/dL 2021 Unknown COMPREHENSIVE METABOLIC 08413 POTASSIUM 4.2 mmol/L 02/28 Unknown COMPREHENSIVE METABOLIC 25610 Total Protein 7.7 g/dL Unknown COMPREHENSIVE METABOLIC 49154 Glucose 116 mg/dL 2021 Unknown COMPREHENSIVE METABOLIC 51676 Bicarbonate 26 mmol/L 03/2022 Unknown COMPREHENSIVE METABOLIC 44569 AGAP 13 mmol/L 2021 Unknown FREE T4 85438 T4 Free 1.15 ng/dL 02/28/2022 Unknown THYROID STIMULATING HORMONE 46922 TSH 3.512 uIU/mL 02/28/2022 Unknown LIPID GROUP 40606 Cholesterol 158 mg/dL 02/28/2022 Unkno wn LIPID GROUP 60739 Triglyceride 78 mg/dL 02/28/2022 Unkn own LIPID GROUP 64379 HDL CHOLESTEROL 66 mg/dL 02/28/2022 U nknown LIPID GROUP 09506 Chol/HDL Ratio 2.39 ratio 02/28/2022 U nknown LIPID GROUP 82066 NON-HDL Chol 92 mg/dL 02/28/2022 Unkn own LIPID GROUP 69379 LDL Cholesterol 76 mg/dL 02/28/2022 U nknown COMPLETE BLOOD COUNT [id number] WBC 6.9 10e9/L 02/29/20 22 Unknown COMPLETE BLOOD COUNT [id number] RBC 4.61 10e12/L 2021 Unknown COMPLETE BLOOD COUNT [id number] HEMOGLOBIN 13.0 g/dL 02/29/20 22 Unknown COMPLETE BLOOD COUNT [id number] HEMATOCRIT 42.1 % 02/29/20 22 Unknown COMPLETE BLOOD COUNT [id number] MCV 91.3 fL 2 Unknown COMPLETE BLOOD COUNT 8181201 MCH 28.2 pg 2 Unknown COMPLETE BLOOD COUNT 9878701 MCHC 30.9 g/dL 2 Unknown COMPLETE BLOOD COUNT [id number] PLATELET COUNT 276 10e9/L 03/2022 Unknown COMPLETE BLOOD COUNT [id number] Mean Plt Volume 10.6 fL 03/2022 Unknown COMPLETE BLOOD COUNT [id number] Neut Auto 53.0 % 2 Unknown COMPLETE BLOOD COUNT [id number] NRBC Absolute 0.00 10e9/L 03/2022 Unknown COMPLETE BLOOD COUNT [id number] NRBC/100 WBC 0.0 2021 Unknown COMPLETE BLOOD COUNT [id number] Lymph Auto 32.0 % 02/29/20 22 Unknown COMPLETE BLOOD COUNT [id number] [place] Auto 11.0 % 2 Unknown COMPLETE BLOOD COUNT [id number] RDW 14.4 % 2 Unknown COMPLETE BLOOD COUNT [id number] Eos Auto 2.5 % 2 Unknown COMPLETE BLOOD COUNT [id number] Baso Auto 1.4 % 2 Unknown COMPLETE BLOOD COUNT [id number] Neutrophil Abs 3.66 10e9/L Unknown COMPLETE BLOOD COUNT [id number] Lymphocyte Abs 2.21 10e9/L Unknown COMPLETE BLOOD COUNT [id number] Imm Gran Auto 0.1 % 02/28 Unknown COMPLETE BLOOD COUNT [id number] Monocyte Abs 0.76 10e9/L 03/2022 Unknown COMPLETE BLOOD COUNT [id number] Eosinophil Abs 0.17 10e9/L Unknown COMPLETE BLOOD COUNT [id number] RDW-SD 47.8 fL 2 Unknown COMPLETE BLOOD COUNT [id number] Basophil Abs 0.10 10e9/L 03/2022 Unknown COMPLETE BLOOD COUNT [id number] Imm Gran Abs 0.01 10e9/L 03/2022 Unknown GFR CALC 9305591 GFR >60 mL/min 02/28/2022 Unknown THYROID STIMULATING HORMONE 99467 TSH 3.017 uIU/mL 01/31/2021 Unknown COMPLETE BLOOD COUNT [id number] WBC 6.1 10e9/L 02/01/20 21 Unknown COMPLETE BLOOD COUNT [id number] RBC 4.22 10e12/L 2020 Unknown COMPLETE BLOOD COUNT [id number] HEMOGLOBIN 12.1 g/dL 02/01/20 21 Unknown COMPLETE BLOOD COUNT [id number] HEMATOCRIT 39.5 % 02/01/20 21 Unknown COMPLETE BLOOD COUNT [id number] MCV 93.6 fL 1 Unknown COMPLETE BLOOD COUNT [id number] MCH 28.7 pg 1 Unknown COMPLETE BLOOD COUNT [id number] MCHC 30.6 g/dL 1 Unknown COMPLETE BLOOD COUNT [id number] PLATELET COUNT 271 10e9/L 06/2021 Unknown COMPLETE BLOOD COUNT [id number] Mean Plt Volume 11.0 fL 06/2021 Unknown COMPLETE BLOOD COUNT [id number] Neut Auto 57.3 % 1 Unknown COMPLETE BLOOD COUNT [id number] Lymph Auto 28.3 % 02/01/20 21 Unknown COMPLETE BLOOD COUNT [id number] [place] Auto 10.9 % 1 Unknown COMPLETE BLOOD COUNT [id number] RDW 14.4 % 1 Unknown COMPLETE BLOOD COUNT [id number] Eos Auto 2.8 % 1 Unknown COMPLETE BLOOD COUNT [id number] Baso Auto 0.7 % 1 Unknown COMPLETE BLOOD COUNT [id number] Neutrophil Abs 3.50 10e9/L Unknown COMPLETE BLOOD COUNT [id number] Lymphocyte Abs 1.73 10e9/L Unknown COMPLETE BLOOD COUNT [id number] Monocyte Abs 0.66 10e9/L 01/22 Unknown COMPLETE BLOOD COUNT [id number] Eosinophil Abs 0.17 10e9/L Unknown COMPLETE BLOOD COUNT [id number] RDW-SD 47.4 fL 1 Unknown COMPLETE BLOOD COUNT [id number] Basophil Abs 0.04 10e9/L 01/22 Unknown GLYCOSYLATED HEMOGLOBIN TEST 62067 Hgb A1c 31678-1 5.9 % 0 01/31/2021 Unknown LIPID GROUP 63793 Cholesterol 151 mg/dL 01/31/2021 Unkno wn LIPID GROUP 45612 Triglyceride 68 mg/dL 01/31/2021 Unkn own LIPID GROUP 22880 HDL CHOLESTEROL 64 mg/dL 01/31/2021 U nknown LIPID GROUP 68223 Chol/HDL Ratio 2.36 ratio 01/31/2021 U nknown LIPID GROUP 33363 NON-HDL Chol 87 mg/dL 01/31/2021 Unkn own LIPID GROUP 01582 LDL Cholesterol 73 mg/dL 01/31/2021 U nknown MEAN GLUC 5590303 Calc Mean Gluc 123 mg/dL 01/31/2021 Unkn own FREE T4 36999 T4 Free 1.11 ng/dL 01/31/2021 Unknown COMPREHENSIVE METABOLIC 40537 AST 16 U/L 2020 Unknown COMPREHENSIVE METABOLIC 34535 ALT 12 U/L 2020 Unknown COMPREHENSIVE METABOLIC 77382 BUN 14 mg/dL 2020 Unknown COMPREHENSIVE METABOLIC 11399 ALBUMIN 4.3 g/dL 2020 Unknown COMPREHENSIVE METABOLIC 53785 CHLORIDE 106 mmol/L 01/31 Unknown COMPREHENSIVE METABOLIC 63173 Bili Total 0.9 mg/dL 01/31 Unknown COMPREHENSIVE METABOLIC 39309 ALK PHOS 96 U/L 2020 Unknown COMPREHENSIVE METABOLIC 87070 SODIUM 144 mmol/L 01/31 Unknown COMPREHENSIVE METABOLIC 90237 CREATININE 0.77 mg/dL 01/22 Unknown COMPREHENSIVE METABOLIC 85909 CALCIUM 9.4 mg/dL 2020 Unknown COMPREHENSIVE METABOLIC 10656 POTASSIUM 4.2 mmol/L 01/31 Unknown COMPREHENSIVE METABOLIC 39209 Total Protein 7.4 g/dL Unknown COMPREHENSIVE METABOLIC 73783 Glucose 94 mg/dL 2020 Unknown COMPREHENSIVE METABOLIC 43414 Bicarbonate 30 mmol/L 01/22 Unknown COMPREHENSIVE METABOLIC 13544 AGAP 8 mmol/L 2020 Unknown GFR CALC 7414904 GFR Afr Amr >60 mL/min 01/31/2021 Unknow n GFR CALC 0177793 GFR Non Afr Amr >60 mL/min 01/31/2021 Un known COMPLETE BLOOD COUNT [id number] WBC 6.9 10e9/L 01/05/20 20 Unknown COMPLETE BLOOD COUNT [id number] RBC 4.20 10e12/L 2019 Unknown COMPLETE BLOOD COUNT [id number] HEMOGLOBIN 12.2 g/dL 01/05/20 20 Unknown COMPLETE BLOOD COUNT [id number] HEMATOCRIT 39.2 % 01/05/20 20 Unknown COMPLETE BLOOD COUNT [id number] MCV 93.3 fL 0 Unknown COMPLETE BLOOD COUNT [id number] MCH 29.0 pg 0 Unknown COMPLETE BLOOD COUNT 6214993 MCHC 31.1 g/dL 0 Unknown COMPLETE BLOOD COUNT 6679268 PLATELET COUNT 272 10e9/L Unknown COMPLETE BLOOD COUNT 4883336 Mean Plt Volume 11.0 fL Unknown COMPLETE BLOOD COUNT 4206028 Neut Auto 61.4 % 0 Unknown COMPLETE BLOOD COUNT 9012502 Lymph Auto 22.4 % 01/05/20 20 Unknown COMPLETE BLOOD COUNT 9157029 [place] Auto 11.7 % 0 Unknown COMPLETE BLOOD COUNT 2847984 Eos Auto 3.6 % 0 Unknown COMPLETE BLOOD COUNT 2752327 RDW 14.6 % 0 Unknown COMPLETE BLOOD COUNT [id number] Baso Auto 0.9 % 0 Unknown COMPLETE BLOOD COUNT [id number] Neutrophil Abs 4.24 10e9/L Unknown COMPLETE BLOOD COUNT [id number] Lymphocyte Abs 1.55 10e9/L Unknown COMPLETE BLOOD COUNT [id number] Monocyte Abs 0.81 10e9/L 12/23 Unknown COMPLETE BLOOD COUNT [id number] Eosinophil Abs 0.25 10e9/L Unknown COMPLETE BLOOD COUNT 4124685 RDW-SD 48.2 fL 0 Unknown COMPLETE BLOOD COUNT 8463717 Basophil Abs 0.06 10e9/L 12/23 Unknown COMPREHENSIVE METABOLIC 39903 AST 17 U/L 2019 Unknown COMPREHENSIVE METABOLIC 16771 ALT 12 U/L 2019 Unknown COMPREHENSIVE METABOLIC 81507 BUN 18 mg/dL 2019 Unknown COMPREHENSIVE METABOLIC 02011 ALBUMIN 4.5 g/dL 2019 Unknown COMPREHENSIVE METABOLIC 55298 CHLORIDE 101 mmol/L 01/04 Unknown COMPREHENSIVE METABOLIC 45478 Bili Total 0.8 mg/dL 01/04 Unknown COMPREHENSIVE METABOLIC 09435 ALK PHOS 76 U/L 2019 Unknown COMPREHENSIVE METABOLIC 04903 SODIUM 141 mmol/L 01/04 Unknown COMPREHENSIVE METABOLIC 42330 CREATININE 1.02 mg/dL 12/23 Unknown COMPREHENSIVE METABOLIC 98162 CALCIUM 9.5 mg/dL 2019 Unknown COMPREHENSIVE METABOLIC 92653 POTASSIUM 3.9 mmol/L 01/04 Unknown COMPREHENSIVE METABOLIC 72335 Total Protein 7.4 g/dL Unknown COMPREHENSIVE METABOLIC 42852 Glucose 89 mg/dL 2019 Unknown COMPREHENSIVE METABOLIC 05866 Bicarbonate 28 mmol/L 12/23 Unknown COMPREHENSIVE METABOLIC 48331 AGAP 12 mmol/L 2019 Unknown LIPASE 28101 Lipase Lvl 34 IU/L 01/05/2020 Unknown THYROID STIMULATING HORMONE 81579 TSH 3.767 uIU/mL 01/05/2020 Unknown AMYLASE 35825 Amylase Lvl 60 IU/L 01/05/2020 Unknown GFR CALC 8229504 GFR Non Afr Amr 52 mL/min 01/05/2020 Unk nown GFR CALC 9908807 GFR Afr Amr >60 mL/min 01/05/2020 Unknow n FREE T4 67905 T4 Free 1.11 ng/dL 01/05/2020 Unknown GFR CALC 7886531 GFR Afr Amr >60 mL/min 12/05/2019 Unknow n GFR CALC 9768036 GFR Non Afr Amr 59 mL/min 12/05/2019 Unk nown COMPREHENSIVE METABOLIC 73039 AST 15 U/L 2019 Unknown COMPREHENSIVE METABOLIC 30010 ALT 12 U/L 2019 Unknown COMPREHENSIVE METABOLIC 41144 BUN 19 mg/dL 2019 Unknown COMPREHENSIVE METABOLIC 58083 ALBUMIN 4.2 g/dL 2019 Unknown COMPREHENSIVE METABOLIC 83221 CHLORIDE 104 mmol/L 12/04 Unknown COMPREHENSIVE METABOLIC 86745 Bili Total 1.0 mg/dL 12/04 Unknown COMPREHENSIVE METABOLIC 83019 ALK PHOS 78 U/L 2019 Unknown COMPREHENSIVE METABOLIC 80189 SODIUM 145 mmol/L 12/04 Unknown COMPREHENSIVE METABOLIC 98348 CREATININE 0.91 mg/dL 11/22 Unknown COMPREHENSIVE METABOLIC 52692 CALCIUM 9.3 mg/dL 2019 Unknown COMPREHENSIVE METABOLIC 49904 POTASSIUM 3.6 mmol/L 12/04 Unknown COMPREHENSIVE METABOLIC 14391 Total Protein 7.0 g/dL Unknown COMPREHENSIVE METABOLIC 37352 Glucose 96 mg/dL 2019 Unknown COMPREHENSIVE METABOLIC 44525 Bicarbonate 28 mmol/L 11/22 Unknown COMPREHENSIVE METABOLIC 05297 AGAP 13 mmol/L 2019 Unknown COMPREHENSIVE METABOLIC 17613 AST 15 U/L 2019 Unknown COMPREHENSIVE METABOLIC 35067 ALT 11 U/L 2019 Unknown COMPREHENSIVE METABOLIC 21781 BUN 14 mg/dL 2019 Unknown COMPREHENSIVE METABOLIC 58151 ALBUMIN 4.3 g/dL 2019 Unknown COMPREHENSIVE METABOLIC 82648 CHLORIDE 106 mmol/L 11/05 Unknown COMPREHENSIVE METABOLIC 12486 Bili Total 0.7 mg/dL 11/05 Unknown COMPREHENSIVE METABOLIC 89036 ALK PHOS 80 U/L 2019 Unknown COMPREHENSIVE METABOLIC 82953 SODIUM 145 mmol/L 11/05 Unknown COMPREHENSIVE METABOLIC 74436 CREATININE 0.97 mg/dL 10/25 Unknown COMPREHENSIVE METABOLIC 58920 CALCIUM 9.5 mg/dL 2019 Unknown COMPREHENSIVE METABOLIC 91586 POTASSIUM 3.9 mmol/L 11/05 Unknown COMPREHENSIVE METABOLIC 59244 Total Protein 7.0 g/dL Unknown COMPREHENSIVE METABOLIC 67722 Glucose 103 mg/dL 2019 Unknown COMPREHENSIVE METABOLIC 25962 Bicarbonate 29 mmol/L 10/25 Unknown COMPREHENSIVE METABOLIC 71458 AGAP 10 mmol/L 2019 Unknown GFR CALC 7037461 GFR Afr Amr >60 mL/min 11/05/2019 Unknow n GFR CALC 7559222 GFR Non Afr Amr 55 mL/min 11/05/2019 Unk nown FREE T4 83266 T4 Free 1.34 ng/dL 10/21/2019 Unknown COMPLETE BLOOD COUNT 0787151 WBC 7.2 10e9/L 10/21/19 20 Unknown COMPLETE BLOOD COUNT [id number] RBC 4.17 10e12/L 2019 Unknown COMPLETE BLOOD COUNT 3815465 HEMOGLOBIN 12.1 g/dL 10/21/19 20 Unknown COMPLETE BLOOD COUNT 2798425 HEMATOCRIT 39.0 % 10/21/19 20 Unknown COMPLETE BLOOD COUNT [id number] MCV 93.5 fL 0 Unknown COMPLETE BLOOD COUNT 4303179 MCH 29.0 pg 0 Unknown COMPLETE BLOOD COUNT 4682691 MCHC 31.0 g/dL 0 Unknown COMPLETE BLOOD COUNT 6272947 PLATELET COUNT 239 10e9/L Unknown COMPLETE BLOOD COUNT 6627464 Mean Plt Volume 11.7 fL Unknown COMPLETE BLOOD COUNT 0236229 Neut Auto 63.7 % 0 Unknown COMPLETE BLOOD COUNT 1657063 Lymph Auto 21.0 % 10/21/19 20 Unknown COMPLETE BLOOD COUNT 2397607 [place] Auto 11.1 % 0 Unknown COMPLETE BLOOD COUNT 4911147 Eos Auto 3.6 % 0 Unknown COMPLETE BLOOD COUNT 4689137 RDW 13.6 % 0 Unknown COMPLETE BLOOD COUNT 3375897 Baso Auto 0.6 % 0 Unknown COMPLETE BLOOD COUNT 8005352 Neutrophil Abs 4.59 10e9/L Unknown COMPLETE BLOOD COUNT 2957374 Lymphocyte Abs 1.51 10e9/L Unknown COMPLETE BLOOD COUNT 5987294 Monocyte Abs 0.80 10e9/L 09/25 Unknown COMPLETE BLOOD COUNT [id number] Eosinophil Abs 0.26 10e9/L Unknown COMPLETE BLOOD COUNT 9126690 Basophil Abs 0.04 10e9/L 09/25 Unknown COMPLETE BLOOD COUNT 2858147 RDW-SD 45.1 fL 0 Unknown GFR CALC 9017841 GFR Non Afr Amr 42 mL/min 10/21/2019 Unk nown GFR CALC 8691372 GFR Afr Amr 50 mL/min 10/21/2019 Unknown COMPREHENSIVE METABOLIC 73151 AST 16 U/L 2019 Unknown COMPREHENSIVE METABOLIC 46220 ALT 10 U/L 2019 Unknown COMPREHENSIVE METABOLIC 16352 BUN 20 mg/dL 2019 Unknown COMPREHENSIVE METABOLIC 57767 ALBUMIN 4.4 g/dL 2019 Unknown COMPREHENSIVE METABOLIC 84067 CHLORIDE 102 mmol/L 10/21 Unknown COMPREHENSIVE METABOLIC 27103 Bili Total 0.8 mg/dL 10/21 Unknown COMPREHENSIVE METABOLIC 49647 ALK PHOS 85 U/L 2019 Unknown COMPREHENSIVE METABOLIC 68494 SODIUM 144 mmol/L 10/21 Unknown COMPREHENSIVE METABOLIC 66854 CREATININE 1.24 mg/dL 09/25 Unknown COMPREHENSIVE METABOLIC 74872 CALCIUM 9.8 mg/dL 2019 Unknown COMPREHENSIVE METABOLIC 50615 POTASSIUM 4.2 mmol/L 10/21 Unknown COMPREHENSIVE METABOLIC 40883 Total Protein 7.3 g/dL Unknown COMPREHENSIVE METABOLIC 02947 Glucose 98 mg/dL 2019 Unknown COMPREHENSIVE METABOLIC 18287 Bicarbonate 31 mmol/L 09/25 Unknown COMPREHENSIVE METABOLIC 60436 AGAP 11 mmol/L 2019 Unknown THYROID STIMULATING HORMONE 31172 TSH 2.693 uIU/mL 10/21/2019 Unknown LIPID GROUP 81684 Cholesterol 142 mg/dL 10/21/2019 Unkno wn LIPID GROUP 80327 Triglyceride 120 mg/dL 10/21/2019 Unkn own LIPID GROUP 96621 HDL CHOLESTEROL 54 mg/dL 10/21/2019 U nknown LIPID GROUP 43654 Chol/HDL Ratio 2.63 ratio 10/21/2019 U nknown LIPID GROUP 89524 NON-HDL Chol 88 mg/dL 10/21/2019 Unkn own LIPID GROUP 06238 LDL Cholesterol 64 mg/dL 10/21/2019 U nknown GFR CALC [id number] GFR Non Afr Amr >60 mL/min 04/04/2019 Un known GFR CALC [id number] GFR Afr Amr >60 mL/min 04/04/2019 Unknow n COMPLETE BLOOD COUNT [id number] WBC 5.9 10e9/L 04/04/20 19 Unknown COMPLETE BLOOD COUNT [id number] RBC 4.29 10e12/L 2018 Unknown COMPLETE BLOOD COUNT [id number] HEMOGLOBIN 12.3 g/dL 04/04/20 19 Unknown COMPLETE BLOOD COUNT [id number] HEMATOCRIT 39.2 % 04/04/20 19 Unknown COMPLETE BLOOD COUNT [id number] MCV 91.4 fL 9 Unknown COMPLETE BLOOD COUNT [id number] MCH 28.7 pg 9 Unknown COMPLETE BLOOD COUNT [id number] MCHC 31.4 g/dL 9 Unknown COMPLETE BLOOD COUNT [id number] PLATELET COUNT 225 10e9/L 08/2019 Unknown COMPLETE BLOOD COUNT [id number] Mean Plt Volume 11.0 fL 08/2019 Unknown COMPLETE BLOOD COUNT [id number] Neut Auto 57.2 % 9 Unknown COMPLETE BLOOD COUNT [id number] Lymph Auto 27.3 % 04/04/20 19 Unknown COMPLETE BLOOD COUNT [id number] [place] Auto 11.2 % 9 Unknown COMPLETE BLOOD COUNT [id number] Eos Auto 3.4 % 9 Unknown COMPLETE BLOOD COUNT [id number] RDW 14.3 % 9 Unknown COMPLETE BLOOD COUNT [id number] Baso Auto 0.9 % 9 Unknown COMPLETE BLOOD COUNT [id number] Neutrophil Abs 3.37 10e9/L Unknown COMPLETE BLOOD COUNT [id number] Lymphocyte Abs 1.61 10e9/L Unknown COMPLETE BLOOD COUNT [id number] Monocyte Abs 0.66 10e9/L 03/24 Unknown COMPLETE BLOOD COUNT [id number] Eosinophil Abs 0.20 10e9/L Unknown COMPLETE BLOOD COUNT [id number] RDW-SD 46.6 fL 9 Unknown COMPLETE BLOOD COUNT [id number] Basophil Abs 0.05 10e9/L 03/24 Unknown THYROID STIMULATING HORMONE 86408 TSH 2.068 uIU/mL 04/04/2019 Unknown COMPREHENSIVE METABOLIC 37719 AST 17 U/L 2018 Unknown COMPREHENSIVE METABOLIC 52091 ALT 12 U/L 2018 Unknown COMPREHENSIVE METABOLIC 58142 BUN 17 mg/dL 2018 Unknown COMPREHENSIVE METABOLIC 37409 ALBUMIN 4.3 g/dL 2018 Unknown COMPREHENSIVE METABOLIC 34550 CHLORIDE 107 mmol/L 04/04 Unknown COMPREHENSIVE METABOLIC 46907 Bili Total 1.1 mg/dL 04/04 Unknown COMPREHENSIVE METABOLIC 12660 ALK PHOS 74 U/L 2018 Unknown COMPREHENSIVE METABOLIC 15024 SODIUM 144 mmol/L 04/04 Unknown COMPREHENSIVE METABOLIC 10655 CREATININE 0.70 mg/dL 03/24 Unknown COMPREHENSIVE METABOLIC 43114 CALCIUM 9.5 mg/dL 2018 Unknown COMPREHENSIVE METABOLIC 15312 POTASSIUM 4.1 mmol/L 04/04 Unknown COMPREHENSIVE METABOLIC 99146 Total Protein 6.8 g/dL Unknown COMPREHENSIVE METABOLIC 17321 Glucose 95 mg/dL 2018 Unknown COMPREHENSIVE METABOLIC 32200 Bicarbonate 29 mmol/L 03/24 Unknown COMPREHENSIVE METABOLIC 82285 AGAP 8 mmol/L 2018 Unknown FREE T4 46652 T4 Free 1.09 ng/dL 04/04/2019 Unknown LIPID GROUP 47799 Cholesterol 149 mg/dL 04/04/2019 Unkno wn LIPID GROUP 62727 Triglyceride 70 mg/dL 04/04/2019 Unkn own LIPID GROUP 91399 HDL CHOLESTEROL 62 mg/dL 04/04/2019 U nknown LIPID GROUP 83670 Chol/HDL Ratio 2.40 ratio 04/04/2019 U nknown LIPID GROUP 83191 NON-HDL Chol 87 mg/dL 04/04/2019 Unkn own LIPID GROUP 05130 LDL Cholesterol 73 mg/dL 04/04/2019 U nknown THYROID STIMULATING HORMONE 89338 TSH 3.698 uIU/mL 10/08/2018 Unknown FREE T4 06843 T4 Free 1.24 ng/dL 10/08/2018 Unknown GFR CALC 1805253 GFR Afr Amr >60 mL/min 10/07/2018 Unknow n GFR CALC 4175237 GFR Non Afr Amr >60 mL/min 10/07/2018 Un known COMPLETE BLOOD COUNT 5844157 WBC 6.3 10e9/L 10/07/19 19 Unknown COMPLETE BLOOD COUNT [id number] RBC 4.22 10e12/L 2018 Unknown COMPLETE BLOOD COUNT 1920225 HEMOGLOBIN 12.2 g/dL 10/07/19 19 Unknown COMPLETE BLOOD COUNT [id number] HEMATOCRIT 39.4 % 10/07/19 19 Unknown COMPLETE BLOOD COUNT 3897908 MCV 93.4 fL 9 Unknown COMPLETE BLOOD COUNT 8766551 MCH 28.9 pg 9 Unknown COMPLETE BLOOD COUNT 0898410 MCHC 31.0 g/dL 9 Unknown COMPLETE BLOOD COUNT 5885150 PLATELET COUNT 231 10e9/L Unknown COMPLETE BLOOD COUNT 3500624 Mean Plt Volume 11.2 fL Unknown COMPLETE BLOOD COUNT 9916438 Neut Auto 55.7 % 9 Unknown COMPLETE BLOOD COUNT 9287032 Lymph Auto 30.3 % 10/07/19 19 Unknown COMPLETE BLOOD COUNT 1497390 [place] Auto 9.6 % 9 Unknown COMPLETE BLOOD COUNT 3690374 RDW 14.0 % 9 Unknown COMPLETE BLOOD COUNT 0734114 Eos Auto 3.5 % 9 Unknown COMPLETE BLOOD COUNT 9602928 Baso Auto 0.9 % 9 Unknown COMPLETE BLOOD COUNT 7880602 Neutrophil Abs 3.51 10e9/L Unknown COMPLETE BLOOD COUNT 8083079 Lymphocyte Abs 1.91 10e9/L Unknown COMPLETE BLOOD COUNT [id number] Monocyte Abs 0.60 10e9/L 09/24 Unknown COMPLETE BLOOD COUNT 1727934 Eosinophil Abs 0.22 10e9/L Unknown COMPLETE BLOOD COUNT 2540927 RDW-SD 46.1 fL 9 Unknown COMPLETE BLOOD COUNT [id number] Basophil Abs 0.06 10e9/L 09/24 Unknown COMPREHENSIVE METABOLIC 93824 AST 14 U/L 2018 Unknown COMPREHENSIVE METABOLIC 25172 ALT 10 U/L 2018 Unknown COMPREHENSIVE METABOLIC 90921 BUN 21 mg/dL 2018 Unknown COMPREHENSIVE METABOLIC 67667 ALBUMIN 4.4 g/dL 2018 Unknown COMPREHENSIVE METABOLIC 68826 CHLORIDE 105 mmol/L 10/07 Unknown COMPREHENSIVE METABOLIC 07264 Bili Total 0.7 mg/dL 10/07 Unknown COMPREHENSIVE METABOLIC 18590 ALK PHOS 80 U/L 2018 Unknown COMPREHENSIVE METABOLIC 34402 SODIUM 143 mmol/L 10/07 Unknown COMPREHENSIVE METABOLIC 73731 CREATININE 0.67 mg/dL 09/24 Unknown COMPREHENSIVE METABOLIC 18575 CALCIUM 9.3 mg/dL 2018 Unknown COMPREHENSIVE METABOLIC 65452 POTASSIUM 3.8 mmol/L 10/07 Unknown COMPREHENSIVE METABOLIC 78167 Total Protein 7.0 g/dL Unknown COMPREHENSIVE METABOLIC 15941 Glucose 98 mg/dL 2018 Unknown COMPREHENSIVE METABOLIC 60004 Bicarbonate 32 mmol/L 09/24 Unknown COMPREHENSIVE METABOLIC 51269 AGAP 6 mmol/L 2018 Unknown LIPID GROUP 65843 Cholesterol 160 mg/dL 10/07/2018 Unkno wn LIPID GROUP 15784 Triglyceride 101 mg/dL 10/07/2018 Unkn own LIPID GROUP 77877 HDL CHOLESTEROL 63 mg/dL 10/07/2018 U nknown LIPID GROUP 69251 Chol/HDL Ratio 2.54 ratio 10/07/2018 U nknown LIPID GROUP 18899 NON-HDL Chol 97 mg/dL 10/07/2018 Unkn own LIPID GROUP 16952 LDL Cholesterol 77 mg/dL 10/07/2018 U nknown MEAN GLUC 6687827 Calc Mean Gluc 114 mg/dL 10/07/2018 Unkn own GLYCOSYLATED HEMOGLOBIN TEST 36124 Hgb A1c 83294-5 5.6 % 0 10/07/2018 Unknown FREE T4 46084 T4 Free 1.21 ng/dL 02/14/2018 Unknown THYROID STIMULATING HORMONE 12217 TSH 2.977 uIU/mL 02/14/2018 Unknown COMPLETE BLOOD COUNT 9543296 WBC 5.6 10e9/L 02/14/20 18 Unknown COMPLETE BLOOD COUNT [id number] RBC 4.23 10e12/L 2017 Unknown COMPLETE BLOOD COUNT 4403674 HEMOGLOBIN 12.4 g/dL 02/14/20 18 Unknown COMPLETE BLOOD COUNT 1475822 HEMATOCRIT 39.1 % 02/14/20 18 Unknown COMPLETE BLOOD COUNT 3587419 MCV 92.4 fL 8 Unknown COMPLETE BLOOD COUNT 4407276 MCH 29.3 pg 8 Unknown COMPLETE BLOOD COUNT 7857763 MCHC 31.7 g/dL 8 Unknown COMPLETE BLOOD COUNT 6626919 PLATELET COUNT 268 10e9/L Unknown COMPLETE BLOOD COUNT 3778842 Mean Plt Volume 11.0 fL Unknown COMPLETE BLOOD COUNT 0056870 Neut Auto 52.1 % 8 Unknown COMPLETE BLOOD COUNT 9784838 Lymph Auto 32.0 % 02/14/20 18 Unknown COMPLETE BLOOD COUNT 7987640 [place] Auto 11.8 % 8 Unknown COMPLETE BLOOD COUNT 7043871 RDW 14.6 % 8 Unknown COMPLETE BLOOD COUNT 7084807 Eos Auto 3.2 % 8 Unknown COMPLETE BLOOD COUNT 6943196 Baso Auto 0.9 % 8 Unknown COMPLETE BLOOD COUNT 9785005 Neutrophil Abs 2.92 10e9/L Unknown COMPLETE BLOOD COUNT 5183472 Lymphocyte Abs 1.79 10e9/L Unknown COMPLETE BLOOD COUNT 5799397 Monocyte Abs 0.66 10e9/L 01/23 Unknown COMPLETE BLOOD COUNT 3915571 Eosinophil Abs 0.18 10e9/L Unknown COMPLETE BLOOD COUNT 7599736 RDW-SD 48.2 fL 8 Unknown COMPLETE BLOOD COUNT 4782615 Basophil Abs 0.05 10e9/L 01/23 Unknown GFR CALC 4959820 GFR Non Afr Amr >60 mL/min 02/13/2018 Un known GFR CALC 5723959 GFR Afr Amr >60 mL/min 02/13/2018 Unknow n COMPREHENSIVE METABOLIC 21318 AST 18 U/L 2017 Unknown COMPREHENSIVE METABOLIC 02208 ALT 13 U/L 2017 Unknown COMPREHENSIVE METABOLIC 97903 BUN 14 mg/dL 2017 Unknown COMPREHENSIVE METABOLIC 28199 ALBUMIN 4.3 g/dL 2017 Unknown COMPREHENSIVE METABOLIC 27789 CHLORIDE 108 mmol/L 02/13 Unknown COMPREHENSIVE METABOLIC 51919 Bili Total 0.8 mg/dL 02/13 Unknown COMPREHENSIVE METABOLIC 13247 ALK PHOS 82 U/L 2017 Unknown COMPREHENSIVE METABOLIC 61425 SODIUM 144 mmol/L 02/13 Unknown COMPREHENSIVE METABOLIC 62115 CREATININE 0.67 mg/dL 01/23 Unknown COMPREHENSIVE METABOLIC 60787 CALCIUM 9.4 mg/dL 2017 Unknown COMPREHENSIVE METABOLIC 99076 POTASSIUM 4.1 mmol/L 02/13 Unknown COMPREHENSIVE METABOLIC 38601 Total Protein 6.9 g/dL Unknown COMPREHENSIVE METABOLIC 53701 Glucose 103 mg/dL 2017 Unknown COMPREHENSIVE METABOLIC 29018 Bicarbonate 27 mmol/L 01/23 Unknown COMPREHENSIVE METABOLIC 55339 AGAP 9 mmol/L 2017 Unknown LIPID GROUP 42468 Cholesterol 169 mg/dL 10/15/2017 Unkno wn LIPID GROUP 46447 Triglyceride 99 mg/dL 10/15/2017 Unkn own LIPID GROUP 86451 HDL CHOLESTEROL 69 10/15/2017 U nknown LIPID GROUP 12434 Chol/HDL Ratio 2.45 ratio 10/15/2017 U nknown LIPID GROUP 99378 NON-HDL Chol 100 mg/dL 10/15/2017 Unkn own LIPID GROUP 80780 LDL Cholesterol 80 mg/dL 10/15/2017 U nknown COMPREHENSIVE METABOLIC 19640 AST 17 U/L 2017 Unknown COMPREHENSIVE METABOLIC 13893 ALT 13 U/L 2017 Unknown COMPREHENSIVE METABOLIC 89897 BUN 22 mg/dL 2017 Unknown COMPREHENSIVE METABOLIC 35821 ALBUMIN 4.5 g/dL 2017 Unknown COMPREHENSIVE METABOLIC 99245 CHLORIDE 99 mmol/L 2017 Unknown COMPREHENSIVE METABOLIC 48116 Bili Total 0.8 mg/dL 10/15 Unknown COMPREHENSIVE METABOLIC 18326 ALK PHOS 78 U/L 2017 Unknown COMPREHENSIVE METABOLIC 41391 SODIUM 150 mmol/L 10/15 Unknown COMPREHENSIVE METABOLIC 24514 CREATININE 0.73 mg/dL 09/25 Unknown COMPREHENSIVE METABOLIC 04768 CALCIUM 9.5 mg/dL 2017 Unknown COMPREHENSIVE METABOLIC 46907 POTASSIUM 4.2 mmol/L 10/15 Unknown COMPREHENSIVE METABOLIC 19045 Total Protein 7.2 g/dL Unknown COMPREHENSIVE METABOLIC 44154 Glucose 96 mg/dL 2017 Unknown COMPREHENSIVE METABOLIC 10572 Bicarbonate 29 mmol/L 09/25 Unknown COMPREHENSIVE METABOLIC 01680 AGAP 22 mmol/L 2017 Unknown GFR CALC 7642295 GFR Non Afr Amr >60 mL/min 10/15/2017 Un known GFR CALC 3255678 GFR Afr Amr >60 mL/min 10/15/2017 Unknow n THYROID STIMULATING HORMONE 09848 TSH 4.502 uIU/mL 10/15/2017 Unknown FREE T4 40395 T4 Free 1.44 ng/dL 10/15/2017 Unknown VITAMIN B 12 62224 VITAMIN B12 698 pg/mL 10/15/2017 Unkn own COMPLETE BLOOD COUNT [id number] WBC 6.3 10e9/L 10/15/19 18 Unknown COMPLETE BLOOD COUNT 1658859 RBC 4.37 10e12/L 2017 Unknown COMPLETE BLOOD COUNT 0495932 HEMOGLOBIN 12.6 g/dL 10/15/19 18 Unknown COMPLETE BLOOD COUNT 0300703 HEMATOCRIT 40.3 % 10/15/19 18 Unknown COMPLETE BLOOD COUNT 0772187 MCV 92.2 fL 8 Unknown COMPLETE BLOOD COUNT 0324376 MCH 28.8 pg 8 Unknown COMPLETE BLOOD COUNT 5954892 MCHC 31.3 g/dL 8 Unknown COMPLETE BLOOD COUNT 3899862 PLATELET COUNT 256 10e9/L Unknown COMPLETE BLOOD COUNT 9167984 Mean Plt Volume 11.1 fL Unknown COMPLETE BLOOD COUNT 2141070 Neut Auto 54.8 % 8 Unknown COMPLETE BLOOD COUNT 6219922 Lymph Auto 30.5 % 10/15/19 18 Unknown COMPLETE BLOOD COUNT 1917995 [place] Auto 10.4 % 8 Unknown COMPLETE BLOOD COUNT 6559476 Eos Auto 3.8 % 8 Unknown COMPLETE BLOOD COUNT 6200287 RDW 14.0 % 8 Unknown COMPLETE BLOOD COUNT 7349882 Baso Auto 0.5 % 8 Unknown COMPLETE BLOOD COUNT 0850260 Neutrophil Abs 3.45 10e9/L Unknown COMPLETE BLOOD COUNT 1174552 Lymphocyte Abs 1.92 10e9/L Unknown COMPLETE BLOOD COUNT 1842318 Monocyte Abs 0.66 10e9/L 09/25 Unknown COMPLETE BLOOD COUNT 2149445 Eosinophil Abs 0.24 10e9/L Unknown COMPLETE BLOOD COUNT 1088470 RDW-SD 46.1 fL 8 Unknown COMPLETE BLOOD COUNT 6330785 Basophil Abs 0.03 10e9/L 09/25 Unknown VITAMIN B 12 47023 VITAMIN B12 823 pg/mL 03/30/2017 Unkn own VITAMIN B 12 75521 VITAMIN B12 321 pg/mL 12/18/2016 Unkn own COMPLETE BLOOD COUNT 9945821 WBC 6.8 10e9/L 12/12/19 17 Unknown COMPLETE BLOOD COUNT 8174063 RBC 4.37 10e12/L 2016 Unknown COMPLETE BLOOD COUNT 1289020 HEMOGLOBIN 12.5 g/dL 12/12/19 17 Unknown COMPLETE BLOOD COUNT 1704823 HEMATOCRIT 39.3 % 12/12/19 17 Unknown COMPLETE BLOOD COUNT 5881068 MCV 89.9 fL 7 Unknown COMPLETE BLOOD COUNT 1769372 MCH 28.6 pg 7 Unknown COMPLETE BLOOD COUNT 3250139 MCHC 31.8 g/dL 7 Unknown COMPLETE BLOOD COUNT 3789047 PLATELET COUNT 248 10e9/L Unknown COMPLETE BLOOD COUNT 6027266 Mean Plt Volume 10.9 fL Unknown COMPLETE BLOOD COUNT 7607809 Neut Auto 52.0 % 7 Unknown COMPLETE BLOOD COUNT 6083236 Lymph Auto 33.4 % 12/12/19 17 Unknown COMPLETE BLOOD COUNT 4847155 [place] Auto 10.1 % 7 Unknown COMPLETE BLOOD COUNT 5260494 RDW 14.6 % 7 Unknown COMPLETE BLOOD COUNT 4550344 Eos Auto 3.8 % 7 Unknown COMPLETE BLOOD COUNT 2740870 Baso Auto 0.7 % 7 Unknown COMPLETE BLOOD COUNT 6623700 Neutrophil Abs 3.54 10e9/L Unknown COMPLETE BLOOD COUNT 7174057 Lymphocyte Abs 2.27 10e9/L Unknown COMPLETE BLOOD COUNT 1271388 Monocyte Abs 0.69 10e9/L 11/23 Unknown COMPLETE BLOOD COUNT 8499796 Eosinophil Abs 0.26 10e9/L Unknown COMPLETE BLOOD COUNT 2548817 RDW-SD 47.4 fL 7 Unknown COMPLETE BLOOD COUNT 1516758 Basophil Abs 0.05 10e9/L 11/23 Unknown COMPREHENSIVE METABOLIC 27208 AST 16 U/L 2016 Unknown COMPREHENSIVE METABOLIC 13587 ALT 12 U/L 2016 Unknown COMPREHENSIVE METABOLIC 87574 BUN 22 mg/dL 2016 Unknown COMPREHENSIVE METABOLIC 85501 ALBUMIN 4.2 g/dL 2016 Unknown COMPREHENSIVE METABOLIC 40696 CHLORIDE 104 mmol/L 12/11 Unknown COMPREHENSIVE METABOLIC 07874 Bili Total 0.7 mg/dL 12/11 Unknown COMPREHENSIVE METABOLIC 52880 ALK PHOS 78 U/L 2016 Unknown COMPREHENSIVE METABOLIC 33608 SODIUM 143 mmol/L 12/11 Unknown COMPREHENSIVE METABOLIC 54367 CREATININE 0.69 mg/dL 11/23 Unknown COMPREHENSIVE METABOLIC 43135 CALCIUM 9.5 mg/dL 2016 Unknown COMPREHENSIVE METABOLIC 89902 POTASSIUM 3.9 mmol/L 12/11 Unknown COMPREHENSIVE METABOLIC 21778 Total Protein 7.1 g/dL Unknown COMPREHENSIVE METABOLIC 44268 Glucose 103 mg/dL 2016 Unknown COMPREHENSIVE METABOLIC 13970 Bicarbonate 30 mmol/L 11/23 Unknown COMPREHENSIVE METABOLIC 66978 AGAP 9 mmol/L 2016 Unknown GFR CALC 3819124 GFR Afr Amr >60 mL/min 12/11/2016 Unknow n GFR CALC 6877492 GFR Non Afr Amr >60 mL/min 12/11/2016 Un known MEAN GLUC 2598513 Calc Mean Gluc 120 mg/dL 12/11/2016 Unkn own LIPID GROUP 05025 Cholesterol 162 mg/dL 12/11/2016 Unkno wn LIPID GROUP 36689 Triglyceride 80 mg/dL 12/11/2016 Unkn own LIPID GROUP 47674 HDL CHOLESTEROL 65 mg/dL 12/11/2016 U nknown LIPID GROUP 14292 Chol/HDL Ratio 2.49 ratio 12/11/2016 U nknown LIPID GROUP 63830 NON-HDL Chol 97 mg/dL 12/11/2016 Unkn own LIPID GROUP 94938 LDL Cholesterol 81 mg/dL 12/11/2016 U nknown FREE T4 51355 T4 Free 1.46 ng/dL 12/11/2016 Unknown THYROID STIMULATING HORMONE 84902 TSH 2.578 uIU/mL 12/11/2016 Unknown GLYCOSYLATED HEMOGLOBIN TEST 46205 Hgb A1c 35354-7 5.8 % 0 12/11/2016 Unknown FREE T4 37486 FREE T4 1.68 NG/DL 05/27/2015 Unknown LIPID GROUP 87619 HDL TEST 67 MG/DL 05/27/2015 Unknown LIPID GROUP 82112 TRIG 92 MG/DL 05/27/2015 Unknown LIPID GROUP 98899 TEST LDL 84 MG/DL 05/27/2015 Unknown LIPID GROUP 23686 CHOL 169 MG/DL 05/27/2015 Unknown LIPID GROUP 08489 RCHOL/HDL 2.52 RATIO 05/27/2015 Unknow n LIPID GROUP 08432 NON-HDL CH 102 MG/DL 05/27/2015 Unknow n GLYCOSYLATED HEMOGLOBIN TEST 70499 A1C HPLC 85315-8 5.9 % 0 05/27/2015 Unknown VITAMIN B 12 88971 VIT B 12 308 PG/ML 05/27/2015 Unknow n GFR CALC 6582428 GFR AA >60 ML/MIN 05/27/2015 Unknown GFR CALC 2844685 GFR NON-AA >60 ML/MIN 05/27/2015 Unknown COMPREHENSIVE METABOLIC 69897 AST 20 U/L 2014 Unknown COMPREHENSIVE METABOLIC 33981 ALT 15 IU/L 2014 Unknown COMPREHENSIVE METABOLIC 73100 BUN 17 MG/DL 2014 Unknown COMPREHENSIVE METABOLIC 55299 ALBUMIN 4.3 GM/DL 2014 Unknown COMPREHENSIVE METABOLIC 65728 CHLORIDE 107 MMOL/L 05/27 Unknown COMPREHENSIVE METABOLIC 09187 BILI TOT 0.9 MG/DL 2014 Unknown COMPREHENSIVE METABOLIC 62362 ALK PHOS 85 U/L 2014 Unknown COMPREHENSIVE METABOLIC 26368 SODIUM 144 MMOL/L 05/27 Unknown COMPREHENSIVE METABOLIC 49443 CREATININE 0.76 MG/DL 11/2014 Unknown COMPREHENSIVE METABOLIC 87909 CALCIUM 9.5 MG/DL 2014 Unknown COMPREHENSIVE METABOLIC 82446 POTASSIUM 4.2 MMOL/L 05/27 Unknown COMPREHENSIVE METABOLIC 33003 PROT TOT 7.1 GM/DL 2014 Unknown COMPREHENSIVE METABOLIC 08583 Glucose 95 MG/DL 2014 Unknown COMPREHENSIVE METABOLIC 18067 BICARB 30 MMOL/L 2014 Unknown COMPREHENSIVE METABOLIC 94136 ANION GAP 7 MEQ/L 2014 Unknown COMPLETE BLOOD COUNT 3478618 WBC 6.5 10e9/L 05/27/20 15 Unknown COMPLETE BLOOD COUNT 7014465 RBC 4.35 10e12/L 2014 Unknown COMPLETE BLOOD COUNT 3657827 HGB 12.4 g/dL 5 Unknown COMPLETE BLOOD COUNT 8380488 HCT DET 39.3 % 5 Unknown COMPLETE BLOOD COUNT 2466700 MCV 90.3 fL 5 Unknown COMPLETE BLOOD COUNT 0209400 MCH 28.5 pg 5 Unknown COMPLETE BLOOD COUNT 7049992 MCHC 31.6 g/dL 5 Unknown COMPLETE BLOOD COUNT 9567545 PLT 245 10e9/L 05/27/20 15 Unknown COMPLETE BLOOD COUNT 3081911 MPV 11.1 fL 5 Unknown COMPLETE BLOOD COUNT 0717524 CRISTI % 53.9 % 5 Unknown COMPLETE BLOOD COUNT 2992056 LY % 30.8 % 5 Unknown COMPLETE BLOOD COUNT 6972072 MON % 11.2 % 5 Unknown COMPLETE BLOOD COUNT 9026247 EOS % 3.2 % 5 Unknown COMPLETE BLOOD COUNT 4794385 BASO % 0.9 % 5 Unknown COMPLETE BLOOD COUNT 1281420 RDW 14.5 % 5 Unknown COMPLETE BLOOD COUNT 5118668 ABS CRISTI 3.50 10e9/L 015 Unknown COMPLETE BLOOD COUNT 4390456 ABS LYMPH 2.00 10e9/L 015 Unknown COMPLETE BLOOD COUNT 7621248 ABS MONO 0.73 10e9/L 015 Unknown COMPLETE BLOOD COUNT 7260691 ABS EOS 0.21 10e9/L 015 Unknown COMPLETE BLOOD COUNT 1455541 ABS BASO 0.06 10e9/L 015 Unknown COMPLETE BLOOD COUNT 3758670 RDW-SD 46.3 fL 5 Unknown THYROID STIMULATING HORMONE 13408 TSH 2.909 uIU/ML 05/27/2015 Unknown IRON 55558 IRON TEST 63 UG/DL 12/15/2014 Unknown COMPLETE BLOOD COUNT 1606834 WBC 6.3 10e9/L 12/16/19 15 Unknown COMPLETE BLOOD COUNT 2938435 RBC 4.37 10e12/L 2014 Unknown COMPLETE BLOOD COUNT 4363958 HGB 12.6 g/dL 5 Unknown COMPLETE BLOOD COUNT 4239160 HCT DET 39.2 % 5 Unknown COMPLETE BLOOD COUNT 0826520 MCV 89.7 fL 5 Unknown COMPLETE BLOOD COUNT 0479644 MCH 28.8 pg 5 Unknown COMPLETE BLOOD COUNT 6509056 MCHC 32.1 g/dL 5 Unknown COMPLETE BLOOD COUNT 3418189 PLT 252 10e9/L 12/16/19 15 Unknown COMPLETE BLOOD COUNT 8146248 MPV 10.8 fL 5 Unknown COMPLETE BLOOD COUNT 5022484 CRISTI % 60.5 % 5 Unknown COMPLETE BLOOD COUNT 8090321 LY % 24.4 % 5 Unknown COMPLETE BLOOD COUNT 7228300 MON % 11.8 % 5 Unknown COMPLETE BLOOD COUNT 0053751 EOS % 2.7 % 5 Unknown COMPLETE BLOOD COUNT 4751511 BASO % 0.6 % 5 Unknown COMPLETE BLOOD COUNT 8677149 RDW 14.0 % 5 Unknown COMPLETE BLOOD COUNT 5596005 ABS CRISTI 3.81 10e9/L 015 Unknown COMPLETE BLOOD COUNT 5458836 ABS LYMPH 1.54 10e9/L 015 Unknown COMPLETE BLOOD COUNT 5813773 ABS MONO 0.74 10e9/L 015 Unknown COMPLETE BLOOD COUNT 6685579 ABS EOS 0.17 10e9/L 015 Unknown COMPLETE BLOOD COUNT 5808402 ABS BASO 0.04 10e9/L 015 Unknown COMPLETE BLOOD COUNT 4306730 RDW-SD 44.6 fL 5 Unknown GFR CALC 5138101 GFR AA >60 ML/MIN 11/26/2014 Unknown GFR CALC 8696856 GFR NON-AA >60 ML/MIN 11/26/2014 Unknown COMPREHENSIVE METABOLIC 69619 AST 16 U/L 2014 Unknown COMPREHENSIVE METABOLIC 23296 ALT 15 IU/L 2014 Unknown COMPREHENSIVE METABOLIC 61535 BUN 21 MG/DL 2014 Unknown COMPREHENSIVE METABOLIC 09500 ALBUMIN 4.4 GM/DL 2014 Unknown COMPREHENSIVE METABOLIC 67102 CHLORIDE 106 MMOL/L 11/26 Unknown COMPREHENSIVE METABOLIC 79714 BILI TOT 0.9 MG/DL 2014 Unknown COMPREHENSIVE METABOLIC 78882 ALK PHOS 83 U/L 2014 Unknown COMPREHENSIVE METABOLIC 33113 SODIUM 141 MMOL/L 11/26 Unknown COMPREHENSIVE METABOLIC 20127 CREATININE 0.68 MG/DL 01/2015 Unknown COMPREHENSIVE METABOLIC 20670 CALCIUM 9.4 MG/DL 2014 Unknown COMPREHENSIVE METABOLIC 05196 POTASSIUM 3.8 MMOL/L 11/26 Unknown COMPREHENSIVE METABOLIC 79792 PROT TOT 7.2 GM/DL 2014 Unknown COMPREHENSIVE METABOLIC 24140 Glucose 100 MG/DL 2014 Unknown COMPREHENSIVE METABOLIC 33192 BICARB 29 MMOL/L 2014 Unknown COMPREHENSIVE METABOLIC 58687 ANION GAP 6 MEQ/L 2014 Unknown LIPID GROUP 55051 HDL TEST 72 MG/DL 11/26/2014 Unknown LIPID GROUP 76001 TRIG 101 MG/DL 11/26/2014 Unknown LIPID GROUP 75615 TEST LDL 82 MG/DL 11/26/2014 Unknown LIPID GROUP 27018 CHOL 174 MG/DL 11/26/2014 Unknown LIPID GROUP 53609 RCHOL/HDL 2.42 RATIO 11/26/2014 Unknow n LIPID GROUP 46083 NON-HDL CH 102 MG/DL 11/26/2014 Unknow n GFR CALC 7636147 GFR AA >60 ML/MIN 08/14/2014 Unknown GFR CALC 7833448 GFR NON-AA >60 ML/MIN 08/14/2014 Unknown THYROID STIMULATING HORMONE 91769 TSH 2.261 uIU/ML 08/14/2014 Unknown COMPLETE BLOOD COUNT 6820380 WBC 5.8 10e9/L 08/14/20 14 Unknown COMPLETE BLOOD COUNT 0657597 RBC 4.33 10e12/L 2013 Unknown COMPLETE BLOOD COUNT 1869546 HGB 12.5 g/dL 4 Unknown COMPLETE BLOOD COUNT 3267140 HCT DET 39.2 % 4 Unknown COMPLETE BLOOD COUNT 1173868 MCV 90.5 fL 4 Unknown COMPLETE BLOOD COUNT 0552323 MCH 28.9 pg 4 Unknown COMPLETE BLOOD COUNT 8363587 MCHC 31.9 g/dL 4 Unknown COMPLETE BLOOD COUNT 1469014 PLT 260 10e9/L 08/14/20 14 Unknown COMPLETE BLOOD COUNT 0545102 MPV 10.9 fL 4 Unknown COMPLETE BLOOD COUNT 9806715 CRISTI % 52.9 % 4 Unknown COMPLETE BLOOD COUNT 3384015 LY % 31.0 % 4 Unknown COMPLETE BLOOD COUNT 4596889 MON % 11.3 % 4 Unknown COMPLETE BLOOD COUNT 5514292 EOS % 3.6 % 4 Unknown COMPLETE BLOOD COUNT 1160497 BASO % 1.2 % 4 Unknown COMPLETE BLOOD COUNT 3173919 RDW 13.9 % 4 Unknown COMPLETE BLOOD COUNT 4562524 ABS CRISTI 3.07 10e9/L 014 Unknown COMPLETE BLOOD COUNT 8431317 ABS LYMPH 1.80 10e9/L 014 Unknown COMPLETE BLOOD COUNT 3648058 ABS MONO 0.66 10e9/L 014 Unknown COMPLETE BLOOD COUNT 6313810 ABS EOS 0.21 10e9/L 014 Unknown COMPLETE BLOOD COUNT 3404334 ABS BASO 0.07 10e9/L 014 Unknown COMPLETE BLOOD COUNT 9021338 RDW-SD 44.8 fL 4 Unknown COMPREHENSIVE METABOLIC 40274 AST 15 U/L 2013 Unknown COMPREHENSIVE METABOLIC 64138 ALT 13 IU/L 2013 Unknown COMPREHENSIVE METABOLIC 47108 BUN 18 MG/DL 2013 Unknown COMPREHENSIVE METABOLIC 69687 ALBUMIN 4.4 GM/DL 2013 Unknown COMPREHENSIVE METABOLIC 35419 CHLORIDE 105 MMOL/L 08/14 Unknown COMPREHENSIVE METABOLIC 49073 BILI TOT 1.0 MG/DL 2013 Unknown COMPREHENSIVE METABOLIC 72550 ALK PHOS 88 U/L 2013 Unknown COMPREHENSIVE METABOLIC 27698 SODIUM 143 MMOL/L 08/14 Unknown COMPREHENSIVE METABOLIC 14919 CREATININE 0.70 MG/DL 07/26 Unknown COMPREHENSIVE METABOLIC 76052 CALCIUM 9.6 MG/DL 2013 Unknown COMPREHENSIVE METABOLIC 23345 POTASSIUM 3.9 MMOL/L 08/14 Unknown COMPREHENSIVE METABOLIC 56198 PROT TOT 7.0 GM/DL 2013 Unknown COMPREHENSIVE METABOLIC 75522 Glucose 100 MG/DL 2013 Unknown COMPREHENSIVE METABOLIC 20005 BICARB 31 MMOL/L 2013 Unknown COMPREHENSIVE METABOLIC 13840 ANION GAP 7 MEQ/L 2013 Unknown FREE T4 17789 FREE T4 1.59 NG/DL 08/14/2014 Unknown LIPID GROUP 52740 HDL TEST 66 MG/DL 08/14/2014 Unknown LIPID GROUP 80953 TRIG 106 MG/DL 08/14/2014 Unknown LIPID GROUP 94809 TEST LDL 152 MG/DL 08/14/2014 Unknown LIPID GROUP 63907 CHOL 239 MG/DL 08/14/2014 Unknown LIPID GROUP 74451 RCHOL/HDL 3.62 RATIO 08/14/2014 Unknow n LIPID GROUP 30911 NON-HDL CH 173 MG/DL 08/14/2014 Unknow n COMPREHENSIVE METABOLIC 04176 AST 16 U/L 2013 Unknown COMPREHENSIVE METABOLIC 83989 ALT 13 IU/L 2013 Unknown COMPREHENSIVE METABOLIC 32164 BUN 20 MG/DL 2013 Unknown COMPREHENSIVE METABOLIC 60544 ALBUMIN 4.4 GM/DL 2013 Unknown COMPREHENSIVE METABOLIC 03408 CHLORIDE 104 MMOL/L 02/04 Unknown COMPREHENSIVE METABOLIC 65249 BILI TOT 0.8 MG/DL 2013 Unknown COMPREHENSIVE METABOLIC 11335 ALK PHOS 79 U/L 2013 Unknown COMPREHENSIVE METABOLIC 34678 SODIUM 141 MMOL/L 02/04 Unknown COMPREHENSIVE METABOLIC 45743 CREATININE 0.73 MG/DL 01/22 Unknown COMPREHENSIVE METABOLIC 76019 CALCIUM 9.6 MG/DL 2013 Unknown COMPREHENSIVE METABOLIC 51425 POTASSIUM 4.0 MMOL/L 02/04 Unknown COMPREHENSIVE METABOLIC 65768 PROT TOT 7.2 GM/DL 2013 Unknown COMPREHENSIVE METABOLIC 98917 Glucose 96 MG/DL 2013 Unknown COMPREHENSIVE METABOLIC 56322 BICARB 31 MMOL/L 2013 Unknown COMPREHENSIVE METABOLIC 09056 ANION GAP 6 MEQ/L 2013 Unknown GFR CALC [id number] GFR AA >60 ML/MIN 02/04/2014 Unknown GFR CALC 6354003 GFR NON-AA >60 ML/MIN 02/04/2014 Unknown FREE T4 57459 FREE T4 1.59 NG/DL 02/04/2014 Unknown COMPLETE BLOOD COUNT 7320748 WBC 5.9 10e9/L 02/05/20 14 Unknown COMPLETE BLOOD COUNT 6203839 RBC 4.37 10e12/L 2013 Unknown COMPLETE BLOOD COUNT 6782483 HGB 12.6 g/dL 4 Unknown COMPLETE BLOOD COUNT 0113286 HCT DET 39.0 % 4 Unknown COMPLETE BLOOD COUNT 7713401 MCV 89.2 fL 4 Unknown COMPLETE BLOOD COUNT 8123806 MCH 28.8 pg 4 Unknown COMPLETE BLOOD COUNT 4311523 MCHC 32.3 g/dL 4 Unknown COMPLETE BLOOD COUNT 0020264 PLT 265 10e9/L 02/05/20 14 Unknown COMPLETE BLOOD COUNT [id number] MPV 10.8 fL 4 Unknown COMPLETE BLOOD COUNT [id number] CRISTI % 55.5 % 4 Unknown COMPLETE BLOOD COUNT [id number] LY % 30.8 % 4 Unknown COMPLETE BLOOD COUNT [id number] MON % 10.0 % 4 Unknown COMPLETE BLOOD COUNT [id number] EOS % 2.7 % 4 Unknown COMPLETE BLOOD COUNT [id number] BASO % 1.0 % 4 Unknown COMPLETE BLOOD COUNT [id number] RDW 14.2 % 4 Unknown COMPLETE BLOOD COUNT [id number] ABS CRISTI 3.27 10e9/L 014 Unknown COMPLETE BLOOD COUNT [id number] ABS LYMPH 1.82 10e9/L 014 Unknown COMPLETE BLOOD COUNT [id number] ABS MONO 0.59 10e9/L 014 Unknown COMPLETE BLOOD COUNT [id number] ABS EOS 0.16 10e9/L 014 Unknown COMPLETE BLOOD COUNT [id number] ABS BASO 0.06 10e9/L 014 Unknown COMPLETE BLOOD COUNT [id number] RDW-SD 45.2 fL 4 Unknown LIPID GROUP 83471 HDL TEST 69 MG/DL 02/04/2014 Unknown LIPID GROUP [id number] TRIG 121 MG/DL 02/04/2014 Unknown LIPID GROUP 44145 TEST LDL 144 MG/DL 02/04/2014 Unknown LIPID GROUP 32963 CHOL 237 MG/DL 02/04/2014 Unknown LIPID GROUP 14077 RCHOL/HDL 3.43 RATIO 02/04/2014 Unknow n THYROID STIMULATING HORMONE 67502 TSH 2.310 uIU/ML 02/04/2014 Unknown THYROID STIMULATING HORMONE 91604 TSH 2.429 uIU/ML 03/18/2012 Unknown COMPREHENSIVE METABOLIC 59893 AST 17 U/L 2011 Unknown COMPREHENSIVE METABOLIC 06308 ALT 15 IU/L 2011 Unknown COMPREHENSIVE METABOLIC 43612 BUN 17 MG/DL 2011 Unknown COMPREHENSIVE METABOLIC 32647 ALBUMIN 4.1 GM/DL 2011 Unknown COMPREHENSIVE METABOLIC 53529 CHLORIDE 108 MMOL/L 03/18 Unknown COMPREHENSIVE METABOLIC 79850 BILI TOT 0.7 MG/DL 2011 Unknown COMPREHENSIVE METABOLIC 38596 ALK PHOS 79 U/L 2011 Unknown COMPREHENSIVE METABOLIC 48874 SODIUM 144 MMOL/L 03/18 Unknown COMPREHENSIVE METABOLIC 74741 CREATININE 0.68 MG/DL 02/23 Unknown COMPREHENSIVE METABOLIC 31405 CALCIUM 9.0 MG/DL 2011 Unknown COMPREHENSIVE METABOLIC 08622 POTASSIUM 3.7 MMOL/L 03/18 Unknown COMPREHENSIVE METABOLIC 50262 PROT TOT 6.6 GM/DL 2011 Unknown COMPREHENSIVE METABOLIC 65213 Glucose 99 MG/DL 2011 Unknown COMPREHENSIVE METABOLIC 08752 BICARB 28 MMOL/L 2011 Unknown COMPREHENSIVE METABOLIC 13427 ANION GAP 8 MEQ/L 2011 Unknown LIPID GROUP 77588 HDL TEST 65 MG/DL 03/18/2012 Unknown LIPID GROUP 02056 TRIG 86 MG/DL 03/18/2012 Unknown LIPID GROUP 53372 TEST LDL 153 MG/DL 03/18/2012 Unknown LIPID GROUP 95405 CHOL 235 MG/DL 03/18/2012 Unknown LIPID GROUP 57157 RCHOL/HDL 3.62 RATIO 03/18/2012 Unknow n GFR CALC [id number] GFR AA >60 ML/MIN 03/18/2012 Unknown GFR CALC 0077349 GFR NON-AA >60 ML/MIN 03/18/2012 Unknown COMPLETE BLOOD COUNT 62623 WBC 5.1 10e9/L 03/18/20 12 Unknown COMPLETE BLOOD COUNT 31006 RBC 4.32 10e12/L 2011 Unknown COMPLETE BLOOD COUNT 26668 HGB 12.4 g/dL 2 Unknown COMPLETE BLOOD COUNT 89768 HCT DET 38.4 % 2 Unknown COMPLETE BLOOD COUNT 50472 MCV 88.9 fL 2 Unknown COMPLETE BLOOD COUNT 58571 MCH 28.7 pg 2 Unknown COMPLETE BLOOD COUNT 79739 MCHC 32.3 g/dL 2 Unknown COMPLETE BLOOD COUNT 63632 PLT 245 10e9/L 03/18/20 12 Unknown COMPLETE BLOOD COUNT 96209 MPV 10.7 fL 2 Unknown COMPLETE BLOOD COUNT 03711 CRISTI % 52.9 % 2 Unknown COMPLETE BLOOD COUNT 48360 LY % 31.5 % 2 Unknown COMPLETE BLOOD COUNT 05251 MON % 12.3 % 2 Unknown COMPLETE BLOOD COUNT 39801 EOS % 2.9 % 2 Unknown COMPLETE BLOOD COUNT 55637 BASO % 0.4 % 2 Unknown COMPLETE BLOOD COUNT 98680 RDW 13.9 % 2 Unknown COMPLETE BLOOD COUNT 22363 ABS CRISTI 2.70 10e9/L 012 Unknown COMPLETE BLOOD COUNT 04086 ABS LYMPH 1.61 10e9/L 012 Unknown COMPLETE BLOOD COUNT 95343 ABS MONO 0.63 10e9/L 012 Unknown COMPLETE BLOOD COUNT 79352 ABS EOS 0.15 10e9/L 012 Unknown COMPLETE BLOOD COUNT 54893 ABS BASO 0.02 10e9/L 012 Unknown COMPLETE BLOOD COUNT 80596 RDW-SD 44.5 fL 2 Unknown FREE T4 07500 FREE T4 1.50 NG/DL 03/18/2012 Unknown LIPID GROUP 25750 HDL TEST 61 MG/DL 07/13/2011 Unknown LIPID GROUP 19948 TRIG 158 MG/DL 07/13/2011 Unknown LIPID GROUP 15122 TEST LDL 131 MG/DL 07/13/2011 Unknown LIPID GROUP 96833 CHOL 224 MG/DL 07/13/2011 Unknown LIPID GROUP 58217 RCHOL/HDL 3.67 RATIO 07/13/2011 Unknow n COMPREHENSIVE METABOLIC 21518 AST 19 U/L 2010 Unknown COMPREHENSIVE METABOLIC 83305 ALT 17 IU/L 2010 Unknown COMPREHENSIVE METABOLIC 42678 BUN 14 MG/DL 2010 Unknown COMPREHENSIVE METABOLIC 93858 ALBUMIN 4.2 GM/DL 2010 Unknown COMPREHENSIVE METABOLIC 11690 CHLORIDE 105 MMOL/L 07/13 Unknown COMPREHENSIVE METABOLIC 30964 BILI TOT 0.9 MG/DL 2010 Unknown COMPREHENSIVE METABOLIC 50057 ALK PHOS 71 U/L 2010 Unknown COMPREHENSIVE METABOLIC 35879 SODIUM 141 MMOL/L 07/13 Unknown COMPREHENSIVE METABOLIC 46724 CREATININE 0.68 MG/DL 06/25 Unknown COMPREHENSIVE METABOLIC 31273 CALCIUM 9.3 MG/DL 2010 Unknown COMPREHENSIVE METABOLIC 89068 POTASSIUM 3.8 MMOL/L 07/13 Unknown COMPREHENSIVE METABOLIC 96081 PROT TOT 6.5 GM/DL 2010 Unknown COMPREHENSIVE METABOLIC 67432 Glucose 94 MG/DL 2010 Unknown COMPREHENSIVE METABOLIC 36187 BICARB 28 MMOL/L 2010 Unknown COMPREHENSIVE METABOLIC 74583 ANION GAP 8 MEQ/L 2010 Unknown COMPLETE BLOOD COUNT 75711 WBC 5.4 10e9/L 07/13/20 11 Unknown COMPLETE BLOOD COUNT 38758 RBC 4.20 10e12/L 2010 Unknown COMPLETE BLOOD COUNT 82173 HGB 12.4 g/dL 1 Unknown COMPLETE BLOOD COUNT 73359 HCT DET 37.6 % 1 Unknown COMPLETE BLOOD COUNT 23055 MCV 89.5 fL 1 Unknown COMPLETE BLOOD COUNT 80377 MCH 29.5 pg 1 Unknown COMPLETE BLOOD COUNT 06199 MCHC 33.0 g/dL 1 Unknown COMPLETE BLOOD COUNT 00841 PLT 273 10e9/L 07/13/20 11 Unknown COMPLETE BLOOD COUNT 93136 MPV 10.7 fL 1 Unknown COMPLETE BLOOD COUNT 40117 CRISTI % 49.9 % 1 Unknown COMPLETE BLOOD COUNT 00280 LY % 35.9 % 1 Unknown COMPLETE BLOOD COUNT 70826 MON % 10.4 % 1 Unknown COMPLETE BLOOD COUNT 30035 EOS % 2.9 % 1 Unknown COMPLETE BLOOD COUNT 80634 BASO % 0.9 % 1 Unknown COMPLETE BLOOD COUNT 84698 RDW 13.8 % 1 Unknown COMPLETE BLOOD COUNT 01614 ABS CRISTI 2.69 10e9/L 011 Unknown COMPLETE BLOOD COUNT 01031 ABS LYMPH 1.94 10e9/L 011 Unknown COMPLETE BLOOD COUNT 85286 ABS MONO 0.56 10e9/L 011 Unknown COMPLETE BLOOD COUNT 40651 ABS EOS 0.16 10e9/L 011 Unknown COMPLETE BLOOD COUNT 14484 ABS BASO 0.05 10e9/L 011 Unknown COMPLETE BLOOD COUNT 75127 RDW-SD 44.4 fL 1 Unknown GFR CALC 7290039 GFR AA >60 ML/MIN 07/13/2011 Unknown GFR CALC 4458204 GFR NON-AA >60 ML/MIN 07/13/2011 Unknown FREE T4 77051 FREE T4 1.36 NG/DL 07/13/2011 Unknown THYROID STIMULATING HORMONE 59911 TSH 4.261 uIU/ML 07/13/2011 Unknown GFR CALC 8794569 GFR AA >60 ML/MIN 03/13/2011 Unknown GFR CALC 7740901 GFR NON-AA >60 ML/MIN 03/13/2011 Unknown LIPID GROUP 56202 HDL TEST 60 MG/DL 03/13/2011 Unknown LIPID GROUP 13075 TRIG 140 MG/DL 03/13/2011 Unknown LIPID GROUP 18052 TEST LDL 122 MG/DL 03/13/2011 Unknown LIPID GROUP 50976 CHOL 210 MG/DL 03/13/2011 Unknown LIPID GROUP 24298 RCHOL/HDL 3.50 RATIO 03/13/2011 Unknow n FREE T4 73563 FREE T4 1.36 NG/DL 03/13/2011 Unknown THYROID STIMULATING HORMONE 27243 TSH 7.688 uIU/ML 03/13/2011 Unknown COMPREHENSIVE METABOLIC 84132 AST 17 U/L 2010 Unknown COMPREHENSIVE METABOLIC 07370 ALT 12 IU/L 2010 Unknown COMPREHENSIVE METABOLIC 98979 BUN 19 MG/DL 2010 Unknown COMPREHENSIVE METABOLIC 84059 ALBUMIN 4.3 GM/DL 2010 Unknown COMPREHENSIVE METABOLIC 85191 CHLORIDE 105 MMOL/L 03/13 Unknown COMPREHENSIVE METABOLIC 75061 BILI TOT 0.6 MG/DL 2010 Unknown COMPREHENSIVE METABOLIC 64194 ALK PHOS 68 U/L 2010 Unknown COMPREHENSIVE METABOLIC 33447 SODIUM 139 MMOL/L 03/13 Unknown COMPREHENSIVE METABOLIC 54955 CREATININE 0.77 MG/DL 02/23 Unknown COMPREHENSIVE METABOLIC 27200 CALCIUM 9.2 MG/DL 2010 Unknown COMPREHENSIVE METABOLIC 58356 POTASSIUM 3.8 MMOL/L 03/13 Unknown COMPREHENSIVE METABOLIC 89554 PROT TOT 6.9 GM/DL 2010 Unknown COMPREHENSIVE METABOLIC 12822 Glucose 97 MG/DL 2010 Unknown COMPREHENSIVE METABOLIC 57180 BICARB 25 MMOL/L 2010 Unknown COMPREHENSIVE METABOLIC 20439 ANION GAP 9 MEQ/L 2010 Unknown FREE T4 85990 FREE T4 1.32 NG/DL 12/16/2010 Unknown COMPLETE BLOOD COUNT 40717 WBC 5.6 10e9/L 12/17/19 11 Unknown COMPLETE BLOOD COUNT 05333 RBC 4.38 10e12/L 2010 Unknown COMPLETE BLOOD COUNT 70673 HGB 12.5 g/dL 1 Unknown COMPLETE BLOOD COUNT 59526 HCT DET 38.7 % 1 Unknown COMPLETE BLOOD COUNT 71208 MCV 88.4 fL 1 Unknown COMPLETE BLOOD COUNT 53013 MCH 28.5 pg 1 Unknown COMPLETE BLOOD COUNT 59032 MCHC 32.3 g/dL 1 Unknown COMPLETE BLOOD COUNT 07381 PLT 249 10e9/L 12/17/19 11 Unknown COMPLETE BLOOD COUNT 47065 MPV 10.5 fL 1 Unknown COMPLETE BLOOD COUNT 04851 CRISTI % 52.8 % 1 Unknown COMPLETE BLOOD COUNT 68318 LY % 33.3 % 1 Unknown COMPLETE BLOOD COUNT 21242 MON % 9.8 % 1 Unknown COMPLETE BLOOD COUNT 89536 EOS % 3.4 % 1 Unknown COMPLETE BLOOD COUNT 82626 BASO % 0.7 % 1 Unknown COMPLETE BLOOD COUNT 31900 RDW 14.2 % 1 Unknown COMPLETE BLOOD COUNT 13914 ABS CRISTI 2.96 10e9/L 011 Unknown COMPLETE BLOOD COUNT 59422 ABS LYMPH 1.86 10e9/L 011 Unknown COMPLETE BLOOD COUNT 16432 ABS MONO 0.55 10e9/L 011 Unknown COMPLETE BLOOD COUNT 67877 ABS EOS 0.19 10e9/L 011 Unknown COMPLETE BLOOD COUNT 84188 ABS BASO 0.04 10e9/L 011 Unknown COMPLETE BLOOD COUNT 58900 RDW-SD 45.1 fL 1 Unknown GFR CALC 1976705 GFR AA >60 ML/MIN 12/16/2010 Unknown GFR CALC 4139461 GFR NON-AA >60 ML/MIN 12/16/2010 Unknown THYROID STIMULATING HORMONE 22343 TSH 7.082 uIU/ML 12/16/2010 Unknown COMPREHENSIVE METABOLIC 24017 AST 21 U/L 2010 Unknown COMPREHENSIVE METABOLIC 68036 ALT 18 IU/L 2010 Unknown COMPREHENSIVE METABOLIC 19679 BUN 22 MG/DL 2010 Unknown COMPREHENSIVE METABOLIC 64926 ALBUMIN 4.6 GM/DL 2010 Unknown COMPREHENSIVE METABOLIC 46857 CHLORIDE 102 MMOL/L 12/16 Unknown COMPREHENSIVE METABOLIC 74954 BILI TOT 0.6 MG/DL 2010 Unknown COMPREHENSIVE METABOLIC 59117 ALK PHOS 72 U/L 2010 Unknown COMPREHENSIVE METABOLIC 82254 SODIUM 140 MMOL/L 12/16 Unknown COMPREHENSIVE METABOLIC 11236 CREATININE 0.73 MG/DL 11/23 Unknown COMPREHENSIVE METABOLIC 36640 CALCIUM 9.4 MG/DL 2010 Unknown COMPREHENSIVE METABOLIC 05836 POTASSIUM 4.2 MMOL/L 12/16 Unknown COMPREHENSIVE METABOLIC 77188 PROT TOT 7.1 GM/DL 2010 Unknown COMPREHENSIVE METABOLIC 49536 Glucose 88 MG/DL 2010 Unknown COMPREHENSIVE METABOLIC 00629 BICARB 30 MMOL/L 2010 Unknown COMPREHENSIVE METABOLIC 11342 ANION GAP 8 MEQ/L 2010 Unknown LIPID GROUP 16372 HDL TEST 66 MG/DL 12/16/2010 Unknown LIPID GROUP 44733 TRIG 154 MG/DL 12/16/2010 Unknown LIPID GROUP 27796 TEST LDL 128 MG/DL 12/16/2010 Unknown LIPID GROUP 63145 CHOL 225 MG/DL 12/16/2010 Unknown LIPID GROUP 64386 RCHOL/HDL 3.41 RATIO 12/16/2010 Unknow n Procedures Procedure Codes Date ROUTINE VENIPUNCTURE CPT-4: 18551 02/28/2022 ASSAY OF FREE THYROXINE CPT-4: 39586 02/28/2022 ASSAY THYROID STIM HORMONE CPT-4: 49300 02/28/2022 COMPREHEN METABOLIC PANEL CPT-4: 70592 02/28/2022 COMPLETE CBC W/AUTO DIFF WBC CPT-4: 40174 02/28/2022 LIPID PANEL CPT-4: 22921 02/28/2022 A1C HPLC CPT-4: 45455 02/28/2022 SARSCOV & INF VIR A&B AG IA CPT-4: 49317 08/09/2021 CLEAR OUTER EAR CANAL CPT-4: 52884 08/09/2021 ROUTINE VENIPUNCTURE CPT-4: 87245 07/20/2021 ASSAY OF FREE THYROXINE CPT-4: 86784 07/20/2021 ASSAY THYROID STIM HORMONE CPT-4: 41749 07/20/2021 COMPREHEN METABOLIC PANEL CPT-4: 19198 07/20/2021 COMPLETE CBC W/AUTO DIFF WBC CPT-4: 96740 07/20/2021 A1C HPLC CPT-4: 90009 07/20/2021 DESTRUCT B9 LESION 1-14 CPT-4: 49635 05/12/2021 THER/PROPH/DIAG INJ SC/IM CPT-4: 26897 03/08/2021 TRIAMCINOLONE ACET INJ NOS CPT-4: J3301 03/08/2021 ROUTINE VENIPUNCTURE CPT-4: 83411 01/31/2021 COMPREHEN METABOLIC PANEL CPT-4: 43205 01/31/2021 COMPLETE CBC W/AUTO DIFF WBC CPT-4: 42114 01/31/2021 LIPID PANEL CPT-4: 80020 01/31/2021 ASSAY OF FREE THYROXINE CPT-4: 59890 01/31/2021 ASSAY THYROID STIM HORMONE CPT-4: 80803 01/31/2021 A1C HPLC CPT-4: 06661 01/31/2021 EXC TR-EXT B9+JOSE G 0.5 CM< CPT-4: 83288 05/19/2020 PPPS, subseq visit CPT-4: G0439 05/11/2020 ROUTINE VENIPUNCTURE CPT-4: 49684 05/05/2020 ASSAY OF FREE THYROXINE CPT-4: 73172 05/05/2020 ASSAY THYROID STIM HORMONE CPT-4: 05260 05/05/2020 COMPREHEN METABOLIC PANEL CPT-4: 72836 05/05/2020 COMPLETE CBC W/AUTO DIFF WBC CPT-4: 77376 05/05/2020 LIPID PANEL CPT-4: 44490 05/05/2020 A1C HPLC CPT-4: 67656 05/05/2020 THER/PROPH/DIAG INJ SC/IM CPT-4: 29641 01/28/2020 TRIAMCINOLONE ACET INJ NOS CPT-4: J3301 01/28/2020 ROUTINE VENIPUNCTURE CPT-4: 51863 01/05/2020 ASSAY OF FREE THYROXINE CPT-4: 36453 01/05/2020 ASSAY THYROID STIM HORMONE CPT-4: 84556 01/05/2020 COMPREHEN METABOLIC PANEL CPT-4: 20938 01/05/2020 COMPLETE CBC W/AUTO DIFF WBC CPT-4: 73104 01/05/2020 ASSAY OF AMYLASE CPT-4: 53505 01/05/2020 ASSAY OF LIPASE CPT-4: 39400 01/05/2020 ROUTINE VENIPUNCTURE CPT-4: 13623 12/05/2019 COMPREHEN METABOLIC PANEL CPT-4: 26682 12/05/2019 ROUTINE VENIPUNCTURE CPT-4: 19104 11/05/2019 COMPREHEN METABOLIC PANEL CPT-4: 15617 11/05/2019 URINALYSIS NONAUTO W/O SCOPE CPT-4: 80001 10/23/2019 URINE CULTURE/ COLONY COUNT CPT-4: 92075 10/23/2019 ROUTINE VENIPUNCTURE CPT-4: 25771 10/21/2019 ASSAY OF FREE THYROXINE CPT-4: 73697 10/21/2019 ASSAY THYROID STIM HORMONE CPT-4: 81880 10/21/2019 COMPREHEN METABOLIC PANEL CPT-4: 24300 10/21/2019 COMPLETE CBC W/AUTO DIFF WBC CPT-4: 29484 10/21/2019 LIPID PANEL CPT-4: 29546 10/21/2019 HYDRATION IV INFUSION INIT CPT-4: 88979 10/20/2019 Removal impacted cerumen using irrigation/lavage, unilateral CPT-4: 53052 10/20/2019 ROUTINE VENIPUNCTURE CPT-4: 38437 04/04/2019 COMPLETE CBC W/AUTO DIFF WBC CPT-4: 08152 04/04/2019 COMPREHEN METABOLIC PANEL CPT-4: 77433 04/04/2019 ASSAY THYROID STIM HORMONE CPT-4: 19165 04/04/2019 ASSAY OF FREE THYROXINE CPT-4: 59555 04/04/2019 LIPID PANEL CPT-4: 59584 04/04/2019 PPPS, subseq visit CPT-4: G0439 11/26/2018 ROUTINE VENIPUNCTURE CPT-4: 03798 10/07/2018 ASSAY THYROID STIM HORMONE CPT-4: 19073 10/07/2018 ASSAY OF FREE THYROXINE CPT-4: 51395 10/07/2018 COMPREHEN METABOLIC PANEL CPT-4: 60118 10/07/2018 COMPLETE CBC W/AUTO DIFF WBC CPT-4: 54045 10/07/2018 LIPID PANEL CPT-4: 68067 10/07/2018 A1C HPLC CPT-4: 40135 10/07/2018 CERUM REMOVAL CPT-4: 38775 06/25/2018 THER/PROPH/DIAG INJ SC/IM CPT-4: 29884 05/03/2018 TRIAMCINOLONE ACET INJ NOS CPT-4: J3301 05/03/2018 Removal impacted cerumen using irrigation/lavage, unilateral CPT-4: 39033 02/19/2018 ROUTINE VENIPUNCTURE CPT-4: 43769 02/13/2018 ASSAY OF FREE THYROXINE CPT-4: 82490 02/13/2018 ASSAY THYROID STIM HORMONE CPT-4: 71603 02/13/2018 COMPREHEN METABOLIC PANEL CPT-4: 69392 02/13/2018 COMPLETE CBC W/AUTO DIFF WBC CPT-4: 31324 02/13/2018 ROUTINE VENIPUNCTURE CPT-4: 06511 10/15/2017 ASSAY OF FREE THYROXINE CPT-4: 90376 10/15/2017 ASSAY THYROID STIM HORMONE CPT-4: 51530 10/15/2017 COMPREHEN METABOLIC PANEL CPT-4: 79852 10/15/2017 COMPLETE CBC W/AUTO DIFF WBC CPT-4: 27709 10/15/2017 LIPID PANEL CPT-4: 56759 10/15/2017 VITAMIN B-12 CPT-4: 93205 10/15/2017 CERUM REMOVAL CPT-4: 82862 07/24/2017 ROUTINE VENIPUNCTURE CPT-4: 44643 03/30/2017 VITAMIN B-12 CPT-4: 89817 03/30/2017 ROUTINE VENIPUNCTURE CPT-4: 08396 12/18/2016 VITAMIN B-12 CPT-4: 04789 12/18/2016 PPPS, subseq visit CPT-4: G0439 12/18/2016 ROUTINE VENIPUNCTURE CPT-4: 27281 12/11/2016 ASSAY OF FREE THYROXINE CPT-4: 97473 12/11/2016 ASSAY THYROID STIM HORMONE CPT-4: 23621 12/11/2016 COMPREHEN METABOLIC PANEL CPT-4: 45376 12/11/2016 COMPLETE CBC W/AUTO DIFF WBC CPT-4: 05977 12/11/2016 LIPID PANEL CPT-4: 48355 12/11/2016 A1C HPLC CPT-4: 01426 12/11/2016 URINALYSIS NONAUTO W/O SCOPE CPT-4: 55681 02/07/2016 ROUTINE VENIPUNCTURE CPT-4: 00744 05/27/2015 ASSAY OF FREE THYROXINE CPT-4: 54673 05/27/2015 ASSAY THYROID STIM HORMONE CPT-4: 85285 05/27/2015 COMPREHEN METABOLIC PANEL CPT-4: 47090 05/27/2015 COMPLETE CBC W/AUTO DIFF WBC CPT-4: 30763 05/27/2015 LIPID PANEL CPT-4: 12399 05/27/2015 VITAMIN B-12 CPT-4: 56816 05/27/2015 A1C HPLC CPT-4: 70327 05/27/2015 PNEUMOCOCCAL VACC 13 LEN IM CPT-4: 05791 05/26/2015 ADMIN PNEUMOCOCCAL VACCINE CPT-4: G0009 05/26/2015 CUR TOBACCO NON-USER CPT-4: G8457 05/26/2015 OCCULT BLOOD FECES CPT-4: 47524 02/19/2015 OCCULT BLOOD FECES CPT-4: 63742 01/20/2015 ROUTINE VENIPUNCTURE CPT-4: 84459 12/15/2014 ASSAY OF IRON CPT-4: 80509 12/15/2014 COMPLETE CBC W/AUTO DIFF WBC CPT-4: 78115 12/15/2014 CERUM REMOVAL CPT-4: 84709 11/30/2014 PRESCRIP TRANSMIT VIA ERX SY CPT-4: G8553 11/30/2014 ROUTINE VENIPUNCTURE CPT-4: 46650 11/26/2014 COMPREHEN METABOLIC PANEL CPT-4: 65724 11/26/2014 LIPID PANEL CPT-4: 84256 11/26/2014 ROUTINE VENIPUNCTURE CPT-4: 63745 08/14/2014 ASSAY OF FREE THYROXINE CPT-4: 65871 08/14/2014 ASSAY THYROID STIM HORMONE CPT-4: 61480 08/14/2014 COMPREHEN METABOLIC PANEL CPT-4: 32591 08/14/2014 COMPLETE CBC W/AUTO DIFF WBC CPT-4: 99231 08/14/2014 LIPID PANEL CPT-4: 35035 08/14/2014 PRESCRIP TRANSMIT VIA ERX SY CPT-4: G8553 07/23/2014 PRESCRIP TRANSMIT VIA ERX SY CPT-4: G8553 03/09/2014 PRESCRIP TRANSMIT VIA ERX SY CPT-4: G8553 02/05/2014 ROUTINE VENIPUNCTURE CPT-4: 53192 02/04/2014 ASSAY OF FREE THYROXINE CPT-4: 48475 02/04/2014 ASSAY THYROID STIM HORMONE CPT-4: 93021 02/04/2014 COMPREHEN METABOLIC PANEL CPT-4: 84448 02/04/2014 COMPLETE CBC W/AUTO DIFF WBC CPT-4: 19948 02/04/2014 LIPID PANEL CPT-4: 08064 02/04/2014 DRAIN/INJECT JOINT/BURSA CPT-4: 85790 04/07/2013 METHYLPREDNISOLONE 40 MG INJ CPT-4: J1030 04/07/2013 TRIAMCINOLONE ACET INJ NOS CPT-4: J3301 04/07/2013 PRESCRIP TRANSMIT VIA ERX SY CPT-4: G8553 04/07/2013 DRAIN/INJECT JOINT/BURSA CPT-4: 16067 10/09/2012 METHYLPREDNISOLONE 40 MG INJ CPT-4: J1030 10/09/2012 TRIAMCINOLONE ACET INJ NOS CPT-4: J3301 10/09/2012 PRESCRIP TRANSMIT VIA ERX SY CPT-4: G8553 03/28/2012 ROUTINE VENIPUNCTURE CPT-4: 25917 03/18/2012 ASSAY OF FREE THYROXINE CPT-4: 78538 03/18/2012 ASSAY THYROID STIM HORMONE CPT-4: 69017 03/18/2012 COMPREHEN METABOLIC PANEL CPT-4: 86920 03/18/2012 COMPLETE CBC W/AUTO DIFF WBC CPT-4: 78200 03/18/2012 LIPID PANEL CPT-4: 90872 03/18/2012 CERUM REMOVAL CPT-4: 28422 2012 OCCULT BLOOD FECES CPT-4: 77821 09/27/2011 CA SCREEN;PELVIC/BREAST EXAM CPT-4: G0101 09/27/2011 OBTAINING SCREEN PAP SMEAR CPT-4: Q0091 09/27/2011 CUR TOBACCO NON-USER CPT-4: G8457 09/13/2011 PRESCRIP TRANSMIT VIA ERX SY CPT-4: G8553 09/13/2011 PRESCRIP TRANSMIT VIA ERX SY CPT-4: G8553 08/07/2011 ROUTINE VENIPUNCTURE CPT-4: 75660 07/13/2011 ASSAY OF FREE THYROXINE CPT-4: 56934 07/13/2011 ASSAY THYROID STIM HORMONE CPT-4: 33638 07/13/2011 COMPREHEN METABOLIC PANEL CPT-4: 12826 07/13/2011 COMPLETE CBC W/AUTO DIFF WBC CPT-4: 72874 07/13/2011 LIPID PANEL CPT-4: 30283 07/13/2011 ROUTINE VENIPUNCTURE CPT-4: 04344 03/13/2011 COMPREHEN METABOLIC PANEL CPT-4: 34569 03/13/2011 LIPID PANEL CPT-4: 35551 03/13/2011 ASSAY THYROID STIM HORMONE CPT-4: 44578 03/13/2011 ASSAY OF FREE THYROXINE CPT-4: 09654 03/13/2011 PRESCRIP TRANSMIT VIA ERX SY CPT-4: G8553 01/04/2011 ROUTINE VENIPUNCTURE CPT-4: 12807 12/16/2010 LIPID PANEL CPT-4: 76796 12/16/2010 COMPLETE CBC W/AUTO DIFF WBC CPT-4: 20159 12/16/2010 COMPREHEN METABOLIC PANEL CPT-4: 73275 12/16/2010 ASSAY OF FREE THYROXINE CPT-4: 64982 12/16/2010 ASSAY THYROID STIM HORMONE CPT-4: 53970 12/16/2010 INJ TRIGGER POINT 1/2 MUSCL CPT-4: 14560 02/14/2010 TRIAMCINOLONE ACET INJ NOS CPT-4: J3301 02/14/2010 METHYLPREDNISOLONE 40 MG INJ CPT-4: J1030 02/14/2010 THER/PROPH/DIAG INJ SC/IM CPT-4: 97894 02/07/2010 KETOROLAC TROMETHAMINE INJ CPT-4: J1885 02/07/2010 ROUTINE VENIPUNCTURE CPT-4: 87119 12/22/2009 Vital Signs Date Vital 06/26/2022 Blood Pressure 1: 132/78 Code: 8480-6 BMI: 25.5 Code: 60923-1 Heart Rate 1: 96 bpm Height: 5'10" Code: 8302-2 SpO2: 98% Temperature: 36.2 (C) / 97.2 (F) Weight: 178 lbs Code: 54365-5 05/22/2022 Blood Pressure 1: 126/82 Code: 8480-6 BMI: 25.5 Code: 50379-7 Heart Rate 1: 104 bpm Height: 5'10" Code: 8302-2 Respiratory Rate: 20 bpm SpO2: 96% Temperature: 36.8 (C) / 98.2 (F) Weight: 178 lbs Code: 32389-4 02/27/2022 Blood Pressure 1: 142/82 Code: 8480-6 BMI: 25.5 Code: 12201-3 Heart Rate 1: 112 bpm Height: 5'10" Code: 8302-2 Respiratory Rate: 20 bpm SpO2: 96% Temperature: 36.8 (C) / 98.3 (F) Weight: 178 lbs Code: 85140-6 11/23/2021 Blood Pressure 1: 136/82 Code: 8480-6 BMI: 25.7 Code: 20299-9 Heart Rate 1: 72 bpm Height: 5'10" Code: 8302-2 Respiratory Rate: 20 bpm SpO2: 98% Temperature: 36.6 (C) / 97.9 (F) Weight: 179 lbs Code: 08484-1 10/12/2021 Blood Pressure 1: 128/92 Code: 8480-6 BMI: 25.5 Code: 40946-1 Heart Rate 1: 68 bpm Height: 5'10" Code: 8302-2 Respiratory Rate: 20 bpm SpO2: 98% Temperature: 36.7 (C) / 98.1 (F) Weight: 178 lbs Code: 78842-3 08/09/2021 Blood Pressure 1: 127/80 Code: 8480-6 Heart Rate 1: 69 bpm Respiratory Rate: 15 bpm SpO2: 98% Temperature: 36.7 (C) / 98.0 (F) We ight: 171 lbs Code: 63571-1 07/28/2021 Blood Pressure 1: 132/78 Code: 8480-6 Heart Rate 1: 76 bpm Respiratory Rate: 20 bpm SpO2: 96% Temperature: 36.8 (C) / 98.2 (F) We ight: 174 lbs Code: 83919-6 05/12/2021 Blood Pressure 1: 142/80 Code: 8480-6 Heart Rate 1: 76 bpm Respiratory Rate: 20 bpm SpO2: 96% Temperature: 36.8 (C) / 98.2 (F) We ight: 173 lbs Code: 11162-5 03/08/2021 Blood Pressure 1: 124/80 Code: 8480-6 Heart Rate 1: 88 bpm Respiratory Rate: 20 bpm SpO2: 98% Temperature: 36.8 (C) / 98.3 (F) We ight: 175 lbs Code: 50737-3 02/03/2021 Blood Pressure 1: 144/84 Code: 8480-6 Heart Rate 1: 68 bpm Respiratory Rate: 20 bpm SpO2: 97% Temperature: 36.7 (C) / 98.1 (F) We ight: 182 lbs Code: 21921-5 01/04/2021 Blood Pressure 1: 152/86 Code: 8480-6 Heart Rate 1: 72 bpm Respiratory Rate: 20 bpm SpO2: 97% Temperature: 36.6 (C) / 97.8 (F) We ight: 182 lbs Code: 47460-2 10/05/2020 Blood Pressure 1: 124/66 Code: 8480-6 He art Rate 1: 65 bpm 09/20/2020 Blood Pressure 1: 134/76 Code: 8480-6 Heart Rate 1: 60 bpm Respiratory Rate: 20 bpm SpO2: 97% Temperature: 36.1 (C) / 97.0 (F) We ight: 187 lbs Code: 05773-2 05/28/2020 Temperature: 36.8 (C) / 98.3 (F) 05/19/2020 Blood Pressure 1: 128/78 Code: 8480-6 Heart Rate 1: 50 bpm Respiratory Rate: 20 bpm SpO2: 98% Temperature: 36.5 (C) / 97.7 (F) 05/11/2020 Blood Pressure 1: 126/80 Code: 8480-6 BMI: 25.4 Code: 83003-0 Heart Rate 1: 60 bpm Height: 5'10" Code: 8302-2 Respiratory Rate: 20 bpm Temperat ure: 36.6 (C) / 97.8 (F) Weight: 177 lbs Code: 11303-8 05/05/2020 Blood Pressure 1: 122/78 Code: 8480-6 [...] 1: 104/66 Code: 8480-6 BMI: 25.4 Code: 75235-5 Heart Rate 1: 56 bpm Height: 5'10" Code: 8302-2 Respiratory Rate: 20 bpm SpO2: 97% Temperature: 36.6 (C) / 97.8 (F) Weight: 177 lbs Code: 99262-6 10/29/2019 Blood Pressure 1: 114/62 Code: 8480-6 Heart Rate 1: 68 bpm Respiratory Rate: 20 bpm SpO2: 99% Temperature: 36.8 (C) / 98.2 (F) 10/20/2019 Blood Pressure 1: 119/74 Code: 8480-6 Heart Rate 1: 57 bpm Respiratory Rate: 16 bpm SpO2: 99% Temperature: 36.9 (C) / 98.4 (F) We ight: 176 lbs Code: 27265-5 07/07/2019 Blood Pressure 1: 126/74 Code: 8480-6 Heart Rate 1: 72 bpm Respiratory Rate: 16 bpm SpO2: 95% Temperature: 36.8 (C) / 98.2 (F) We ight: 179 lbs Code: 07486-3 05/01/2019 Blood Pressure 1: 126/76 Code: 8480-6 Heart Rate 1: 60 bpm Respiratory Rate: 20 bpm SpO2: 97% Temperature: 36.8 (C) / 98.2 (F) 04/15/2019 Blood Pressure 1: 154/94 Code: 8480-6 BMI: 26.0 Code: 56534-8 Heart Rate 1: 60 bpm Height: 5'10" Code: 8302-2 Respiratory Rate: 18 bpm SpO2: 97% Temperature: 36.6 (C) / 97.9 (F) Weight: 181 lbs Code: 95187-5 11/26/2018 Blood Pressure 1: 142/80 Code: 8480-6 BMI: 26.3 Code: 09078-8 Heart Rate 1: 56 bpm Height: 5'10" Code: 8302-2 Respiratory Rate: 20 bpm SpO2: 97% Temperature: 36.9 (C) / 98.4 (F) Weight: 183 lbs Code: 63422-3 08/08/2018 Blood Pressure 1: 126/68 Code: 8480-6 Heart Rate 1: 76 bpm Height: 5'10" Code: 8302-2 Respiratory Rate: 20 bpm SpO2: 97% Temperature: 36 .7 (C) / 98.0 (F) Weight: Code: 98574-1 06/25/2018 Blood Pressure 1: 112/70 Code: 8480-6 BMI: 25.8 Code: 41606-7 Heart Rate 1: 64 bpm Height: 5'10" Code: 8302-2 Respiratory Rate: 20 bpm SpO2: 95% Temperature: 36.9 (C) / 98.4 (F) Weight: 180 lbs Code: 15214-9 05/20/2018 Blood Pressure 1: 132/100 Code: 8480-6 H eart Rate 1: 76 bpm 05/10/2018 Blood Pressure 1: 144/86 Code: 8480-6 Heart Rate 1: 60 bpm Respiratory Rate: 20 bpm SpO2: 97% Temperature: 36.9 (C) / 98.4 (F) We ight: Code: 52806-6 05/03/2018 Blood Pressure 1: 126/92 Code: 8480-6 Bl ood Pressure 2: 147/79 Code: 8480-6 Heart Rate 1: 64 bpm Height: 5'10" Code: 8302-2 Respiratory Rate : 22 bpm SpO2: 98% Temperature: 36.3 (C) / 97.3 (F) Weight: Code: 79165- 7 04/22/2018 Blood Pressure 1: 140/82 Code: 8480-6 BMI: 26.3 Code: 06845-8 Heart Rate 1: 60 bpm Height: 5'10" Code: 8302-2 Respiratory Rate: 20 bpm SpO2: 95% Temperature: 36.8 (C) / 98.2 (F) Weight: 183 lbs Code: 76657-7 03/05/2018 Blood Pressure 1: 122/64 Code: 8480-6 BMI: 25.7 Code: 57315-2 Heart Rate 1: 82 bpm Height: 5'10" Code: 8302-2 Respiratory Rate: 22 bpm SpO2: 96% Temperature: 36.4 (C) / 97.6 (F) Weight: 179 lbs Code: 98417-0 02/19/2018 Blood Pressure 1: 120/84 Code: 8480-6 Heart Rate 1: 68 bpm SpO2: 96% Temperature: 36.2 (C) / 97.2 (F) Weight: Code: 48163-6 02/13/2018 Blood Pressure 1: 138/90 Cod e: 8480-6 10/18/2017 Blood Pressure 1: 122/78 Code: 8480-6 BMI: 26.5 Code: 96637-2 Heart Rate 1: 72 bpm Height: 5'10" Code: 8302-2 Respiratory Rate: 20 bpm Temperat ure: 36.7 (C) / 98.0 (F) Weight: 185 lbs Code: 38531-8 07/24/2017 Blood Pressure 1: 118/68 Code: 8480-6 Heart Rate 1: 82 bpm Height: 5'10" Code: 8302-2 Respiratory Rate: 20 bpm SpO2: 92% Temperature: 36 .4 (C) / 97.6 (F) Weight: Code: 64524-7 06/14/2017 Blood Pressure 1: 156/98 Code: 8480-6 Heart Rate 1: 84 bpm Height: 5'10" Code: 8302-2 Respiratory Rate: 20 bpm SpO2: 96% Temperature: 36 .9 (C) / 98.5 (F) Weight: Code: 14569-7 06/01/2017 Blood Pressure 1: 122/82 Code: 8480-6 Heart Rate 1: 68 bpm Height: 5'10" Code: 8302-2 Respiratory Rate: 20 bpm Temperature: 36.8 (C) / 98.2 (F) 03/30/2017 Blood Pressure 1: 124/78 Code: 8480-6 Heart Rate 1: 88 bpm Height: 5'10" Code: 8302-2 Respiratory Rate: 20 bpm SpO2: 96% Temperature: 36 .9 (C) / 98.4 (F) Weight: Code: 81493-4 01/17/2017 Blood Pressure 1: 126/74 Code: 8480-6 Heart Rate 1: 72 bpm Height: 5'10" Code: 8302-2 Respiratory Rate: 20 bpm SpO2: 96% Temperature: 37 .0 (C) / 98.6 (F) Weight: Code: 05103-6 12/18/2016 Blood Pressure 1: 128/86 Code: 8480-6 BMI: 24.7 Code: 64043-1 Heart Rate 1: 76 bpm Height: 5'10" Code: 8302-2 Respiratory Rate: 20 bpm SpO2: 96% Temperature: 36.8 (C) / 98.3 (F) Weight: 172 lbs Code: 36648-4 11/02/2016 Blood Pressure 1: 128/80 Code: 8480-6 BMI: 24.7 Code: 68488-2 Heart Rate 1: 72 bpm Height: 5'10" Code: 8302-2 Respiratory Rate: 20 bpm SpO2: 94% Temperature: 36.9 (C) / 98.4 (F) Weight: 172 lbs Code: 58424-9 10/24/2016 Blood Pressure 1: 120/78 Code: 8480-6 BMI: 24.7 Code: 93791-0 Heart Rate 1: 88 bpm Height: 5'10" Code: 8302-2 Respiratory Rate: 18 bpm SpO2: 96% Temperature: 36.5 (C) / 97.7 (F) Weight: 172 lbs Code: 69422-1 02/07/2016 Heart Rate 1: 76 bpm Respiratory Rate: 22 bpm SpO2: 96 % Temperature: 36.4 (C) / 97.6 (F) Weight: Code: 51289-7 05/26/2015 Blood Pressure 1: 124/70 Code: 8480-6 BMI: 25.1 Code: 24013-7 Heart Rate 1: 84 bpm Height: 5'10" Code: 8302-2 Respiratory Rate: 20 bpm Temperat ure: 36.7 (C) / 98.1 (F) Weight: 175 lbs Code: 41461-3 11/30/2014 Blood Pressure 1: 142/94 Code: 8480-6 BMI: 25.1 Code: 29563-9 Heart Rate 1: 80 bpm Height: 5'10" Code: 8302-2 Respiratory Rate: 20 bpm Temperat ure: 36.9 (C) / 98.5 (F) Weight: 175 lbs Code: 32879-4 07/23/2014 Blood Pressure 1: 138/86 Code: 8480-6 BMI: 25.0 Code: 52707-3 Heart Rate 1: 80 bpm Height: 5'10" Code: 8302-2 Respiratory Rate: 20 bpm Temperat ure: 36.4 (C) / 97.6 (F) Weight: 174 lbs Code: 36565-4 03/09/2014 Blood Pressure 1: 122/78 Code: 8480-6 BMI: 25.0 Code: 39193-3 Heart Rate 1: 78 bpm Height: 5'10" Code: 8302-2 Respiratory Rate: 24 bpm Temperat ure: 36.4 (C) / 97.6 (F) Weight: 174 lbs Code: 26983-6 02/05/2014 Blood Pressure 1: 132/80 Code: 8480-6 BMI: 25.0 Code: 18236-3 Heart Rate 1: 84 bpm Height: 5'10" Code: 8302-2 Respiratory Rate: 20 bpm Temperat ure: 36.6 (C) / 97.9 (F) Weight: 174 lbs Code: 03878-1 05/12/2013 Blood Pressure 1: 138/94 Code: 8480-6 BMI: 25.1 Code: 24194-2 Heart Rate 1: 92 bpm Height: 5'10" Code: 8302-2 Respiratory Rate: 20 bpm Temperat ure: 36.7 (C) / 98.1 (F) Weight: 175 lbs Code: 86738-7 04/07/2013 Blood Pressure 1: 136/72 Code: 8480-6 BMI: 25.1 Code: 14090-4 Heart Rate 1: 76 bpm Height: 5'10" Code: 8302-2 Respiratory Rate: 20 bpm Temperat ure: 36.7 (C) / 98.0 (F) Weight: 175 lbs Code: 58844-2 03/31/2013 Blood Pressure 1: 132/94 Code: 8480-6 BMI: 25.1 Code: 73741-0 Heart Rate 1: 76 bpm Height: 5'10" Code: 8302-2 Respiratory Rate: 20 bpm Temperat ure: 36.7 (C) / 98.0 (F) Weight: 175 lbs Code: 63667-2 10/09/2012 Blood Pressure 1: 132/80 Code: 8480-6 BMI: 24.8 Code: 84942-5 Heart Rate 1: 88 bpm Height: 5'10" Code: 8302-2 Temperature: 36.8 (C) / 98.3 (F) Weight: 173 lbs Code: 03589-2 03/28/2012 Blood Pressure 1: 126/82 Code: 8480-6 BMI: 24.7 Code: 15273-2 Heart Rate 1: 72 bpm Height: 5'10" Code: 8302-2 Respiratory Rate: 20 bpm Temperat ure: 36.6 (C) / 97.8 (F) Weight: 172 lbs Code: 31329-9 2012 Blood Pressure 1: 130/72 Code: 8480-6 Heart Rate 1: 80 bpm Height: Code: 8302-2 Temperature: 36.5 (C) / 97.7 (F) Weight: Code: 41848- 7 09/27/2011 Blood Pressure 1: 116/78 Code: 8480-6 BMI: 24.4 Code: 11254-3 Heart Rate 1: 76 bpm Height: 5'10" Code: 8302-2 Respiratory Rate: 20 bpm Temperat ure: 36.9 (C) / 98.4 (F) Weight: 170 lbs Code: 25967-1 09/13/2011 Blood Pressure 1: 124/82 Code: 8480-6 BMI: 24.4 Code: 68236-0 Heart Rate 1: 72 bpm Height: 5'10" Code: 8302-2 Respiratory Rate: 20 bpm Temperat ure: 36.4 (C) / 97.6 (F) Weight: 170 lbs Code: 55467-7 08/07/2011 Blood Pressure 1: 110/74 Code: 8480-6 BMI: 23.2 Code: 53132-7 Heart Rate 1: 60 bpm Height: 5'11" Code: 8302-2 Temperature: 36.4 (C) / 97.5 (F) Weight: 166 lbs Code: 83456-9 02/06/2011 Blood Pressure 1: 96/58 Code : 8480-6 01/20/2011 Blood Pressure 1: 112/78 Cod e: 8480-6 01/12/2011 Blood Pressure 1: 110/48 Code: 8480-6 He art Rate 1: 84 bpm 01/04/2011 Blood Pressure 1: 126/80 Code: 8480-6 Heart Rate 1: 76 bpm Temperature: 36.9 (C) / 98.4 (F) Weight: 168 lbs Code: 83981-3 02/14/2010 Blood Pressure 1: 134/82 Code: 8480-6 Heart Rate 1: 88 bpm Temperature: 36.6 (C) / 97.9 (F) 02/07/2010 Blood Pressure 1: 130/80 Code: 8480-6 BMI: 23.4 Code: 87819-4 Heart Rate 1: 84 bpm Height: 5'10" Code: 8302-2 Temperature: 36.4 (C) / 97.6 (F) Weight: 163 lbs Code: 23410-1 Functional Status No Functional Status data Reason [...] Encounter Performer Location Location Address Codes Date ([id number]) OFFICE/OUTPATIENT VISIT EST Diagnosis: Atrial fibrillation and flutter[ICD10: I48.91] Yvette STUART CristiGarrett [address] [address] CPT- 4: 31876 06/26/2022 ([id number]) OFFICE/OUTPATIENT VISIT EST Diagnosis: Chronic atrial fibrillation[ICD10: I48.20] Diagnosis: Essential hypertension[ICD10: I10] Diagnosis: Skin cancer of arm[ICD10: C44.601] Diagnosis: Mild chronic obstructive pulmonary disease[ICD10: J44.9] Yvette STUART CristiGarrett AKASHNATE [address] [address] CPT-4: 93192 05/22/2022 ([id number]) NURSE/OUTPATIENT VISIT EST Diagnosis: Atrial fibrillation and flutter[ICD10: I48.91] Diagnosis: Hypothyroidism[ICD10: E03.9] Diagnosis: Mixed hyperlipidemia[ICD10: E78.2] Diagnosis: Anemia, unspecified[ICD10: D64.9] Diagnosis: Essential (primary) hypertension[ICD10: I10] Diagnosis: Hyperglycemia, unspecified[ICD10: R73.9] Yvette STUART CristiGarrett JOANN [address] [address] CPT- 4: 08142 02/28/2022 ([id number]) OFFICE/OUTPATIENT VISIT EST Diagnosis: Atypical nevus of right forearm[ICD10: D22.61] Diagnosis: Unspecified atrial flutter[ICD10: I48.92] Diagnosis: Atrial fibrillation and flutter[ICD10: I48.91] Yvette DAVID [address] [address] CPT- 4: 78604 02/27/2022 ([id number]) OFFICE/OUTPATIENT VISIT EST Diagnosis: Anxiety[ICD10: F41.9] Yvette DAVID DO [address] [address] CPT-4: 82536 11/23/2021 ([id number]) OFFICE/OUTPATIENT VISIT EST Diagnosis: Anxiety[ICD10: F41.9] Diagnosis: Stress reaction[ICD10: F43.0] Yvette DAVID [address] [address] CPT-4: 30965 10/12/2021 ([id number]) OFFICE/OUTPATIENT VISIT EST Diagnosis: Contact with and (suspected) exposure to covid-19[ICD10: Z20.822] Diagnosis: Nasopharyngitis[ICD10: J00] Diagnosis: Acute foreign body of left ear canal, initial encounter[ICD10: T16.2XXA] Diagnosis: Acute foreign body of right ear canal[ICD10: T16.1XXA] Martina Laynehollydonato DAVID [address] [address] CPT-4: 07833 08/09/2021 ([id number]) OFFICE/OUTPATIENT VISIT EST Diagnosis: Essential (primary) hypertension[ICD10: I10] Diagnosis: Hypothyroidism[ICD10: E03.9] Diagnosis: Paroxysmal atrial fibrillation[ICD10: I48.0] Diagnosis: Hyperglycemia, unspecified[ICD10: R73.9] Yvette DAVID [address] [address] CPT- 4: 19391 07/28/2021 ([id number]) NURSE/OUTPATIENT VISIT EST Diagnosis: Mixed hyperlipidemia[ICD10: E78.2] Diagnosis: Anemia, unspecified[ICD10: D64.9] Diagnosis: Essential (primary) hypertension[ICD10: I10] Diagnosis: Hypothyroidism, unspecified[ICD10: E03.9] Diagnosis: Hyperglycemia, unspecified[ICD10: R73.9] Yvette DAVID [address] [address] CPT- 4: 15046 07/20/2021 ([id number]) OFFICE/OUTPATIENT VISIT EST Diagnosis: Grieving[ICD10: F43.21] Diagnosis: Inflamed seborrheic keratosis[ICD10: L82.0] Yvette DAVID DO [address] [address] CPT- 4: 54959 05/12/2021 ([id number]) OFFICE/OUTPATIENT VISIT EST Diagnosis: Rhus dermatitis[ICD10: L25.5] Yvette DAVID [address] [address] CPT-4: 63175 03/08/2021 ([id number]) OFFICE/OUTPATIENT VISIT EST Diagnosis: Essential hypertension[ICD10: I10] Diagnosis: Chronic atrial fibrillation[ICD10: I48.20] Diagnosis: Mixed hyperlipidemia[ICD10: E78.2] Diagnosis: Hyperglycemia, unspecified[ICD10: R73.9] Diagnosis: Depression[ICD10: F32.9] Yvette CHAIREZ [address] [address] CPT-4: 27602 02/03/2021 ([id number]) NURSE/OUTPATIENT VISIT EST Diagnosis: Hyperglycemia, unspecified[ICD10: R73.9] Diagnosis: Mixed hyperlipidemia[ICD10: E78.2] Diagnosis: Essential (primary) hypertension[ICD10: I10] Diagnosis: Hypothyroidism, unspecified[ICD10: E03.9] Yvette DAVID DO [address] [address] CPT- 4: 70435 01/31/2021 ([id number]) OFFICE/OUTPATIENT VISIT EST Diagnosis: Vertigo[ICD10: R42] Diagnosis: Chronic atrial fibrillation[ICD10: I48.20] Diagnosis: Cerumen impaction[ICD10: H61.20] Diagnosis: Depression[ICD10: F32.9] Yvette CHAIREZ DO [address] [address] CPT-4: 38341 01/04/2021 ([id number]) NURSE/OUTPATIENT VISIT EST Diagnosis: Essential hypertension[ICD10: I10] Yvette SIMMS HOLLY Michael DAVID DO [address] [address] CPT-4: 39014 10/05/2020 ([id number]) OFFICE/OUTPATIENT VISIT EST Diagnosis: Chronic atrial fibrillation[ICD10: I48.20] Diagnosis: Dizziness[ICD10: R42] Yvette MERCADOLINE CristiGarrett JOANN BORJA [address] [address] CPT-4: 06489 09/20/2020 ([id number]) NURSE/OUTPATIENT VISIT EST Diagnosis: Dysplastic nevus of right lower extremity[ICD10: D23.71] Yvette MERCADOLINE CristiGarrett JOANN BORJA [address] [address] CPT-4: 31751 05/28/2020 ([id number]) NURSE/OUTPATIENT VISIT EST Diagnosis: Essential (primary) hypertension[ICD10: I10] Diagnosis: Type 2 diabetes mellitus with hyperglycemia[ICD10: E11.65] Diagnosis: Anemia, unspecified[ICD10: D64.9] Diagnosis: Hypothyroidism, unspecified[ICD10: E03.9] Yvette MERCADOLINE CristiGarrett JOANN BORJA [address] [address] CPT- 4: 58379 05/05/2020 ([id number]) OFFICE/OUTPATIENT VISIT EST Diagnosis: 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] Diagnosis: Paroxysmal atrial fibrillation[ICD10: I48.0] Yvette Joann STUART Michael TAYLORER [address] [address] CPT- 4: 55672 02/11/2020 ([id number]) OFFICE/OUTPATIENT VISIT EST Diagnosis: Dermatitis[ICD10: L30.9] Diagnosis: 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] Diagnosis: Chronic pruritus[ICD10: L29.9] Yvette STUART Cristi DAVID [address] [address] CPT-4: 24254 01/28/2020 ([id number]) OFFICE/OUTPATIENT VISIT EST Diagnosis: Diarrhea, unspecified[ICD10: R19.7] Diagnosis: Dizziness[ICD10: R42] Diagnosis: Generalized pruritus[ICD10: L29.9] Yvette COREA Michael TAYLORER [address] [address] CPT-4: 05402 01/05/2020 ([id number]) NURSE/OUTPATIENT VISIT EST Diagnosis: Renal insufficiency[ICD10: N28.9] Yvette Shahid Michael DAVID [address] [address] CPT-4: 76610 12/05/2019 ([id number]) NURSE/OUTPATIENT VISIT EST Diagnosis: Renal insufficiency[ICD10: N28.9] Diagnosis: Dehydration[ICD10: E86.0] Yvette STUART CristiGarrett AKASH SULLIVAN [address] [address] CPT-4: 77483 11/05/2019 ([id number]) OFFICE/OUTPATIENT VISIT EST Diagnosis: Chronic atrial fibrillation[ICD10: I48.20] Diagnosis: Renal insufficiency[ICD10: N28.9] Diagnosis: Dizziness and giddiness[ICD10: R42] Yvette COLEMAN Michael BUSTOSNDMAYE [address] [address] CPT-4: 15998 10/29/2019 ([id number]) NURSE/OUTPATIENT VISIT EST Diagnosis: Hematuria, unspecified[ICD10: R31.9] Yvette BUSTOSNDER DO [address] [address] CPT-4: 58375 10/23/2019 ([id number]) NURSE/OUTPATIENT VISIT EST Diagnosis: Encounter for general adult medical examination without abnormal findings[ICD10: Z00.00] Diagnosis: Essential (primary) hypertension[ICD10: I10] Diagnosis: Hypothyroidism, unspecified[ICD10: E03.9] Diagnosis: Mixed hyperlipidemia[ICD10: E78.2] Yvette BUSTOSNDER DO [address] [address] CPT-4: 71446 10/21/2019 ([id number]) OFFICE/OUTPATIENT VISIT EST Diagnosis: Cerumen impaction[ICD10: H61.20] Diagnosis: Dizziness[ICD10: R42] Diagnosis: Gastritis[ICD10: K29.70] Diagnosis: Dehydration[ICD10: E86.0] Natalee BUSTOS NDER DO [address] [address] CPT-4: 98264 10/20/2019 ([id number]) OFFICE/OUTPATIENT VISIT EST Diagnosis: Paroxysmal atrial fibrillation[ICD10: I48.0] Diagnosis: Essential hypertension[ICD10: I10] Yvette BUSTOSNDER DO [address] [address] CPT-4: 53381 07/07/2019 ([id number]) OFFICE/OUTPATIENT VISIT EST Diagnosis: Essential (primary) hypertension[ICD10: I10] Yvette BUSTOSNDER DO [address] [address] CPT- 4: 17020 05/01/2019 ([id number]) OFFICE/OUTPATIENT VISIT EST Diagnosis: Essential (primary) hypertension[ICD10: I10] Diagnosis: Localized edema[ICD10: R60.0] Yvette BUSTOSNDER DO [address] [address] CPT-4: 31055 04/15/2019 ([id number]) NURSE/OUTPATIENT VISIT EST Diagnosis: Essential (primary) hypertension[ICD10: I10] Diagnosis: Hypothyroidism, unspecified[ICD10: E03.9] Diagnosis: Mixed hyperlipidemia[ICD10: E78.2] Yvette DAVID [address] [address] CPT-4: 04511 04/04/2019 ([id number]) NURSE/OUTPATIENT VISIT EST Diagnosis: Essential (primary) hypertension[ICD10: I10] Diagnosis: Hyperglycemia, unspecified[ICD10: R73.9] Diagnosis: Hypothyroidism, unspecified[ICD10: E03.9] Diagnosis: Mixed hyperlipidemia[ICD10: E78.2] Yvette DAVID [address] [address] CPT-4: 18554 10/07/2018 ([id number]) OFFICE/OUTPATIENT VISIT EST Diagnosis: Essential (primary) hypertension[ICD10: I10] Diagnosis: Presence of right artificial knee joint[ICD10: Z96.651] Diagnosis: Unspecified hearing loss, left ear[ICD10: H91.92] Yvette DAVID [address] [address] CPT- 4: 60181 08/08/2018 OFFICE/OUTPATIENT VISIT EST Diagnosis: Impacted cerumen, bilateral[ICD10: H61.23] Diagnosis: Vertigo of central origin, bilateral[ICD10: H81.43] Diagnosis: Essential (primary) hypertension[ICD10: I10] Diagnosis: Paroxysmal atrial fibrillation[ICD10: I48.0] Diagnosis: Dizziness and giddiness[ICD10: R42] Diagnosis: Sudden idiopathic hearing loss, left ear[ICD10: H91.22] Yvette ADVID [address] [address] CPT-4: 31425 06/25/2018 ([id number]) OFFICE/OUTPATIENT VISIT EST Diagnosis: Essential (primary) hypertension[ICD10: I10] Diagnosis: Vertigo of central origin, bilateral[ICD10: H81.43] Yvette DAVID DO [address] [address] CPT-4: 89167 05/10/2018 ([id number]) OFFICE/OUTPATIENT VISIT EST Diagnosis: Allergic rhinitis due to pollen[ICD10: J30.1] Diagnosis: Dizziness and giddiness[ICD10: R42] Diagnosis: Vertigo of central origin, bilateral[ICD10: H81.43] Diagnosis: Essential (primary) hypertension[ICD10: I10] Yvette DAVID DO [address] [address] CPT- 4: 78489 05/03/2018 OFFICE/OUTPATIENT VISIT EST Diagnosis: Hypothyroidism, unspecified[ICD10: E03.9] Diagnosis: Mixed hyperlipidemia[ICD10: E78.2] Diagnosis: Essential (primary) hypertension[ICD10: I10] Diagnosis: Paroxysmal atrial fibrillation[ICD10: I48.0] Diagnosis: Obstructive sleep apnea (adult) (pediatric)[ICD10: G47.33] Diagnosis: Unilateral primary osteoarthritis, right knee[ICD10: M17.11] Yvette DAVID DO [address] [address] CPT-4: 07414 04/22/2018 ([id number]) OFFICE/OUTPATIENT VISIT EST Diagnosis: Zoster without complications[ICD10: B02.9] Natalee DAVID DO [address] [address] CPT- 4: 90207 03/05/2018 ([id number]) NURSE/OUTPATIENT VISIT EST Diagnosis: Hypothyroidism, unspecified[ICD10: E03.9] Diagnosis: Mixed hyperlipidemia[ICD10: E78.2] Diagnosis: Essential (primary) hypertension[ICD10: I10] Diagnosis: Paroxysmal atrial fibrillation[ICD10: I48.0] Yvette DAVID DO [address] [address] CPT- 4: 46499 02/13/2018 ([id number]) OFFICE/OUTPATIENT VISIT EST Diagnosis: Obstructive sleep apnea (adult) (pediatric)[ICD10: G47.33] Diagnosis: Essential (primary) hypertension[ICD10: I10] Diagnosis: Paroxysmal atrial fibrillation[ICD10: I48.0] Yvette STUART Michael TAYLOR[address] [address] CPT- 4: 44707 10/18/2017 ([id number]) OFFICE/OUTPATIENT VISIT EST Diagnosis: Hypothyroidism, unspecified[ICD10: E03.9] Diagnosis: Other vitamin B12 deficiency anemias[ICD10: D51.8] Diagnosis: Essential (primary) hypertension[ICD10: I10] Diagnosis: Mixed hyperlipidemia[ICD10: E78.2] Yvette COREA Michael TAYLOR[address] [address] CPT-4: 43675 10/15/2017 OFFICE/OUTPATIENT VISIT EST Diagnosis: Impacted cerumen, bilateral[ICD10: H61.23] Diagnosis: Acute sinusitis, unspecified[ICD10: J01.90] Natalee TAYLOR [employer] [address] [address] CPT- 4: 63274 07/24/2017 ([id number]) OFFICE/OUTPATIENT VISIT EST Diagnosis: Obstructive sleep apnea (adult) (pediatric)[ICD10: G47.33] Diagnosis: Tachycardia, unspecified[ICD10: R00.0] Yvette QUINONES Michael TAYLOR[address] [address] CPT-4: 20047 06/14/2017 ([id number]) OFFICE/OUTPATIENT VISIT EST Diagnosis: Zoster without complications[ICD10: B02.9] Demi DILLONQUELINE Michael TAYLOR [employer] [address] [address] CPT- 4: 34672 06/01/2017 ([id number]) OFFICE/OUTPATIENT VISIT EST Diagnosis: Essential (primary) hypertension[ICD10: I10] Diagnosis: Tachycardia, unspecified[ICD10: R00.0] Diagnosis: Other vitamin B12 deficiency anemias[ICD10: D51.8] Yvette DAVID DO [employer] [address] [place] [address] CPT- 4: 64877 03/30/2017 ([id number]) OFFICE/OUTPATIENT VISIT EST Diagnosis: Essential (primary) hypertension[ICD10: I10] Diagnosis: Other fatigue[ICD10: R53.83] Diagnosis: Other chest pain[ICD10: R07.89] Diagnosis: Snoring[ICD10: R06.83] Yvette Vega DO [employer] [address] [place] [address] CPT-4: 42799 01/17/2017 ([id number]) OFFICE/OUTPATIENT VISIT EST Diagnosis: Encounter for general adult medical examination without abnormal findings[ICD10: Z00.00] Diagnosis: Hypothyroidism, unspecified[ICD10: E03.9] Diagnosis: Essential (primary) hypertension[ICD10: I10] Diagnosis: Mixed hyperlipidemia[ICD10: E78.2] Diagnosis: Other nursing home (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[ICD10: Z79.899] Diagnosis: Hyperglycemia, unspecified[ICD10: R73.9] Yvette DAVID DO [employer] [address] [place] [address] CPT- 4: 58698 12/11/2016 ([id number]) OFFICE/OUTPATIENT VISIT EST Diagnosis: URI, ACUTE[ICD10: J06.9] Diagnosis: Cough[ICD10: R05] Yvette DAVID DO [address] [address] CPT-4: 57296 11/02/19 17 ([id number]) OFFICE/OUTPATIENT VISIT EST Diagnosis: Acute upper respiratory infection, unspecified[ICD10: J06.9] Elidai Calix YVETTE DAVID DO [address] [address] CPT-4: 08748 10/24/2016 ([id number]) OFFICE/OUTPATIENT VISIT EST Diagnosis: Nausea[ICD10: R11.0] Diagnosis: Diarrhea, unspecified[ICD10: R19.7] Diagnosis: Dizziness and giddiness[ICD10: R42] Elidia Yogi COLEMAN [facility]ar[facility] [address] [place] [address] CPT-4: 94481 02/07/2016 ([id number]) OFFICE/OUTPATIENT VISIT EST Diagnosis: HYPOTHYROIDISM[ICD9: 244.9] Diagnosis: HYPERLIPIDEMIA NEC/NOS[ICD9: 272.4] Diagnosis: ANEMIA NOS[ICD9: 285.9] Diagnosis: HYPERTENSION[ICD9: 401.9] Diagnosis: Neuropathy[ICD9: 355.9] Yvette Rodriguez [facility] [address] [place] [address] CPT-4: 91274 05/27/2015 ([id number]) OFFICE/OUTPATIENT VISIT EST Diagnosis: Neuropathy[ICD9: 355.9] Diagnosis: Foot pain[ICD9: 729.5] Diagnosis: HYPOTHYROIDISM[ICD9: 244.9] Diagnosis: PNEUMOCOCCAL VACCINE[ICD10: Z23] Yvette Rodriguez [facility] [address] [place] [address] CPT-4: 25704 05/26/2015 ([id number]) OFFICE/OUTPATIENT VISIT EST Diagnosis: Hematochezia[ICD9: 578.1] Yvette [facility]OS [facility] [address] [place] [address] CPT-4: 53564 02/19/2015 ([id number]) OFFICE/OUTPATIENT VISIT EST Diagnosis: Hematochezia[ICD9: 578.1] Yvette [facility] [address] [place] [address] CPT-4: 88907 01/20/2015 ([id number]) OFFICE/OUTPATIENT VISIT EST Diagnosis: Hematochezia[ICD9: 578.1] Yvette Rodriguez [facility] [address] [place] [address] CPT-4: 14748 12/15/2014 ([id number]) OFFICE/OUTPATIENT VISIT EST Diagnosis: TINEA PEDIS[ICD9: 110.4] Diagnosis: Ceruminosis[ICD9: 380.4] Earline CHAIREZ DO [address] [address] CPT-4: 97814 11/30/2014 ([id number]) OFFICE/OUTPATIENT VISIT EST Diagnosis: HYPERLIPIDEMIA NEC/NOS[ICD9: 272.4] Yvette WAYNE JARED Michael TAYLORER DO [address] [address] CPT-4: 69850 11/26/2014 ([id number]) OFFICE/OUTPATIENT VISIT EST Diagnosis: HYPOTHYROIDISM[ICD9: 244.9] Diagnosis: HYPERLIPIDEMIA NEC/NOS[ICD9: 272.4] Diagnosis: ANEMIA NOS[ICD9: 285.9] Diagnosis: HYPERTENSION[ICD9: 401.9] Yvette DILLONQUELINE CristiGarrett AKASH GIOVANASilvia [address] [address] CPT-4: 89137 08/14/2014 ([id number]) OFFICE/OUTPATIENT VISIT EST Diagnosis: GERD[ICD9: 530.81] Diagnosis: COUGH[ICD10: R05] Yvette MERCADOLINE CristiGarrett JOANN [address] [address] CPT-4: 29337 07/23/20 14 OFFICE/OUTPATIENT VISIT EST Diagnosis: Heel pain[ICD9: 729.5] Earline SmileyWhitneymargarita MERCADOLINE CristiGarrett AKASHGIOVANA R [address] [address] CPT-4: 06484 03/09/2014 ([id number]) OFFICE/OUTPATIENT VISIT EST Diagnosis: HYPOTHYROIDISM[ICD9: 244.9] Diagnosis: HYPERLIPIDEMIA NEC/NOS[ICD9: 272.4] Diagnosis: Right medial knee pain[ICD9: 719.46] Yvette MERCADO TRINA CristiGarrett BRANDONER DO [address] [address] CPT-4: 82259 02/05/2014 ([id number]) OFFICE/OUTPATIENT VISIT EST Diagnosis: HYPOTHYROIDISM[ICD9: 244.9] Diagnosis: HYPERLIPIDEMIA NEC/NOS[ICD9: 272.4] Diagnosis: HYPERTENSION[ICD9: 401.9] Diagnosis: ANEMIA NOS[ICD9: 285.9] Diagnosis: MALAISE AND FATIGUE[ICD9: 780.79] Yvette KONG Zehra ColinGarrett JOANN [employer] [address] [place] [address] CPT-4: 17299 02/04/2014 OFFICE/OUTPATIENT VISIT EST Diagnosis: Right medial knee pain[ICD9: 719.46] Diagnosis: Degeneration, intervertebral disc, lumbar[ICD9: 722.52] Diagnosis: Low back pain[ICD9: 724.2] Earline Rodriguez LUISITO STEFAN [address] [address] CPT-4: 51119 05/12/2013 ([id number]) OFFICE/OUTPATIENT VISIT EST Diagnosis: Lumbar degenerative disc disease[ICD9: 722.52] Diagnosis: Bulging lumbar disc[ICD9: 722.10] Yvette Rodriguez JOANN DO [employer] [address] [place] [address] CPT-4: 20616 04/07/2013 ([id number]) OFFICE/OUTPATIENT VISIT EST Diagnosis: PAIN, LOWER BACK[ICD9: 724.2] Diagnosis: SPASM OF MUSCLE[ICD9: 728.85] Diagnosis: Lumbar degenerative disc disease[ICD9: 722.52] Yvette Rodriguez JOANN [employer] [address] [place] [address] CPT- 4: 17997 03/31/2013 ([id number]) OFFICE/OUTPATIENT VISIT EST Diagnosis: Greater trochanteric bursitis[ICD9: 726.5] Diagnosis: DYSPEPSIA[ICD9: 536.8] Yvette Vega DO [employer] [address] [place] [address] CPT-4: 51400 10/09/2012 OFFICE/OUTPATIENT VISIT EST Diagnosis: CYSTOCELE NOS[ICD9: 618.01] Diagnosis: GERD[ICD9: 530.81] Diagnosis: VAGINITIS[ICD9: 623.5] Yvette HYLTON R DO [address] [address] CPT-4: 03307 03/28/2012 ([id number]) OFFICE/OUTPATIENT VISIT EST Diagnosis: HYPOTHYROIDISM[ICD9: 244.9] Diagnosis: HYPERLIPIDEMIA NEC/NOS[ICD9: 272.4] Diagnosis: HYPERTENSION[ICD9: 401.9] Diagnosis: ANEMIA NOS[ICD9: 285.9] Yvette TAYLOR ER DO [address] [address] CPT-4: 29139 03/18/2012 OFFICE/OUTPATIENT VISIT EST Diagnosis: CERUMEN IMPACTION[ICD9: 380.4] Diagnosis: OTALGIA[ICD9: 388.70] Reyan Eldon YVETTE DAVID DO [address] [address] CPT-4: 60582 2012 OFFICE/OUTPATIENT VISIT EST Diagnosis: COUGH[ICD9: 786.2] Diagnosis: Cystocele[ICD9: 618.01] Diagnosis: VAGINITIS[ICD9: 623.5] Diagnosis: ROUTINE GYNE EXAM[ICD9: V72.31] Yvette DAVID DO [address] [address] CPT-4: 91925 09/27/2011 SPECIMEN HANDLING Diagnosis: [ICD9: ] Diagnosis: [ICD9: ] Diagnosis: [ICD9: ] Diagnosis: [ICD9: ] Yvette DAVID DO [address] [address] CPT-4: 41284 09/27/2011 OFFICE/OUTPATIENT VISIT EST Diagnosis: PHARYNGITIS, ACUTE[ICD9: 462] Diagnosis: URI, ACUTE[ICD9: 465.9] Yvette TAYLOR ER DO [address] [address] CPT-4: 27450 09/13/2011 OFFICE/OUTPATIENT VISIT EST Diagnosis: PHARYNGITIS, ACUTE[ICD9: 462] Diagnosis: COUGH[ICD9: 786.2] Yvette DAVID DO [employer] [facility] [address] [place] [address] CPT-4: 62072 08/07/20 11 ([id number]) OFFICE/OUTPATIENT VISIT EST Yvette BUSTOSNDER DO [employer] [address] [place] [address] CPT-4: 46083 01/04/2011 ([id number]) OFFICE/OUTPATIENT VISIT, EST Yvette BUSTOSNDER DO [employer] [address] [place] [address] CPT-4: 54513 02/14/2010 ([id number]) OFFICE/OUTPATIENT VISIT, EST Yvette DAVID DO [employer] [address] [place] [address] CPT-4: 50384 02/07/2010 Plan of Care Planned Activity Notes Codes Status Date Visit Diagnosis Plan: Atrial fibrillation and flutter Discussion: Increase metoprolol to 50mg po BID Increase amiodarone to 200mg po BID Fwup 1month Defers flu shot ICD-9 : 427.31 ICD-10 : I48.91 06/26/2022 Patient Education: metoprolol succinate- [employer] Co upon [id number] [email or web address] Completed 06/26/2022 Visit Diagnosis Plan: Skin cancer [...] : J44.9 05/22/2022 Appointment: Yvette David WPtel: [address] [place], [place] [phone] FOLLOW UP 05/22/2022 Referral: Anuj Eng WPtel: [facility] [place] Referral Appointment Confirmed 03/08/2022 Appointment: Yvette David WPtel: [address] [place], [place] [phone] US LAB 02/28/2022 Visit Diagnosis Plan: Unspecified [...] : I48.91 02/27/2022 Appointment: Yvette David WPtel: [address] [place], [place] [phone] ACUTE ILLNESS 02/27/2022 Care Plan: Referral Order SNOMED-CT : 30 [id number] Pending 02/27/2022 Care Plan: Referral Order SNOMED-CT : 30 [id number] Pending 02/27/2022 [facility]ment[facility] [id number] [phone] [facility] CANCELED 12/06/2021 Visit Diagnosis Plan: Anxiety Discussion: Improving wi th effexor--wants to keep dose the same ICD-9 : 300.00 ICD-10 : F41.9 11/23/2021 Appointment: Yvette David WPtel: [facility] [phone] US FOLLOW UP 11/23/2021 Visit Diagnosis Plan: Anxiety Discussion: Restart effe xor XR at 37.5mg daily Stress Reducers Fwup 6 weeks No tremors noted today ICD-9 : 300.00 ICD-10 : F41.9 10/12/2021 Appointment: [facility] [phone] [facility] ILLNESS 10/12/2021 Visit Plan: Supportive care. [...] : R73.9 07/28/2021 Appointment: Yvette David WPtel: [address] [place], [place] [phone] FOLLOW UP 07/28/2021 Appointment: Yvette David WPtel: [address] [place], [place] [phone] LAB 07/20/2021 Visit Diagnosis Plan: Grieving Discussion: Restart Eff exor XR 37.5mg po q AM ICD-9 : 309.0 ICD-10 : F43.21 05/12/2021 Visit Diagnosis Plan: Inflamed seborrheic keratosis Di scussion: Cryotherapy as above ICD-9 : 702.11 ICD-10 : L82.0 05/12/2021 Appointment: Yvette David WPtel: [address] [place], [place] [phone] US FOLLOW UP 05/12/2021 Appointment: Yvette David WPtel: [address] [place], [place] [phone] US assisted patient with opening her eye drops for cataract liane an (sera) CANCELED 03/22/2021 Visit Diagnosis Plan: Rhus dermatitis Discussion: Marielena log 40mg IM x1 Can continue TAC ICD-9 : 692.6 ICD-10 : L25.5 03/08/2021 Appointment: Yvette David WPtel: [address] [place], [place] [phone] US FOLLOW UP 03/08/2021 Visit Diagnosis Plan: [...] : I48.20 02/03/2021 Appointment: Yvette David WPtel: [address] [place], [place] [phone] US FOLLOW UP 02/03/2021 Appointment: Yvette David WPtel: [address] [place], [place] [phone] US LAB 01/31/2021 Visit Diagnosis Plan: Chronic [...] : H61.20 01/04/2021 Appointment: Yvette David WPtel: [address] [place], [place] [phone] ACUTE ILLNESS 01/04/2021 Appointment: Yvette David WPtel: [address] [place], [place] [phone] BP CHECK 10/05/2020 Visit Diagnosis Plan: Chronic atrial fibrillation Disc ussion: Due to symptomatic bradycardia will decrease metoprolol ER to 25mg po BID Bring by BP and pulse readings in 2 weeks ICD-9 : 427.31 ICD-10 : I48.20 09/20/2020 Appointment: Yvette David WPtel: [address] [place], [place] [phone] ACUTE ILLNESS 09/20/2020 Appointment: Yvette David WPtel: [address] [place], [place] [phone] NURSE SERVICES 05/28/2020 Visit Diagnosis Plan: Dysplastic nevus of right lower extremity Discussion: Removal as above and sent to pathology Return in 10 days for suture removal ICD-9 : 216.7 ICD-10 : D23.71 05/19/2020 Appointment: Yvette David WPtel: [address] [place], [place] [phone] FOLLOW UP 05/19/2020 Visit Diagnosis Plan: Diarrhea [...] 05/11/2020 Visit Diagnosis Plan: Encounter for [facility] adult medical examination without abnormal [...] : I48.20 05/11/2020 Appointment: Yvette David WPtel: [address] [phone] US Annual Well Visit 05/11/2020 Appointment: Yvette David WPtel: [address] [phone] US LAB 05/05/2020 Visit Diagnosis Plan: [...] : I48.0 02/11/2020 Appointment: Yvette David WPtel: [facility] [phone] US FOLLOW UP 02/11/2020 Visit Diagnosis [...] : L29.8 01/28/2020 Appointment: Yvette David WPtel: [address] [place], [place] [phone] ACUTE ILLNESS 01/28/2020 Patient Education: hydroxyzine HCl- [employer] Coupon [id number] https://www.FolderBoy/samplemd/resources/getResource/61/[email or web address]-8hl4-7f Completed 01/28/2020 Visit Diagnosis Plan: Diarrhea, unspecified [...] : R42 01/05/2020 Appointment: Yvette David WPtel: [address] [place], [place] [phone] ACUTE ILLNESS 01/05/2020 Appointment: Yvette David WPtel: [address] [place], [place] [phone] US LAB 12/05/2019 Appointment: Yvette David WPtel: [address] [place], [place] [phone] US LAB 11/05/2019 Visit Diagnosis Plan: Dizziness [...] : N28.9 10/29/2019 Appointment: Yvette David WPtel: [address] [place], [place] [phone] FOLLOW UP 10/29/2019 Appointment: Yvette David WPtel: [address] [phone] UA 10/23/2019 Appointment: Yvette David WPtel: [address] [place] [phone] LAB 10/21/2019 Visit Diagnosis Plan: Dizziness Discussion: [...] H61.20 10/20/2019 Appointment: Natalee Gray [address] [facility] ACUTE ILLNESS 10/20/2019 Patient Education: meclizine- [employer] Coupon [id number] https://www.[employer]/samplemd/resources/getResource/61/[email or web address]-15wu-sf Completed 10/20/2019 Appointment: Yvette David WPtel: [address] [place], [place] [phone] [place] Canceled, Said patient was feeling lots [...] : I48.0 07/07/2019 Appointment: Yvette David WPtel: [address] [place], [place] [phone] FOLLOW UP 07/07/2019 Visit Diagnosis Plan: Essential (primary) hypertension Discussion: Increase HCTZ to 25mg daily Call in 1 week with BP readings ICD-9 : 401.9 ICD-10 : I10 05/01/2019 Appointment: Yvette David WPtel: [address] [place], [place] [phone] FOLLOW UP 05/01/2019 Visit Diagnosis Plan: Essential (primary) hypertension Discussion: Change metoprolol to 50mg po q AM and 100mg po q PM Add HCTZ 12.5mg po q AM Monitor home BP and pulse Recheck 2 weeks Start Cardiac Rehab or Wellness ICD-9 : 401.1 ICD-10 : I10 04/15/2019 Appointment: Yvette David WPtel: [address] [place], [place] [phone] FOLLOW UP 04/15/2019 Patient Education: hydrochlorothiazide- OptimizeRX [facility] [id number] https://www.Indisys.Derceto/samplemd/resources/getResource/61/5u4m8980-i60r-636m-us Completed 04/15/2019 Appointment: Yvette David WPtel: [address] [phone] US LAB 04/04/2019 Care Plan: US EXAM CHEST US of left breast LOINC : 24858-8 Pending 03/17/2019 Visit Diagnosis Plan: Hypothyroidism, unspecified [...] : I10 11/26/2018 Appointment: Yvette David WPtel: [address] [place], [place] [phone] Annual Well Visit 11/26/2018 Appointment: Yvetet David WPtel: [address] [place], [place] [phone] US LAB 10/07/2018 Visit Diagnosis Plan: Presence [...] : H91.92 08/08/2018 Appointment: Yvette David WPtel: [address] [place], [place] [phone] US FOLLOW UP 08/08/2018 Appointment: Natalee Gray [address] [place] [address] US CANCELED 07/18/2018 Visit Diagnosis Plan: Sudden [...] : I10 06/25/2018 Appointment: Yvette David WPtel: [address] [place], [place] [phone] [employer] [facility] Follow Up 06/25/2018 Patient Education: Patient Medication Summary Completed 06/25/2018 Appointment: Yvette Davidtel: [address] [place], [place] [phone] BP CHECK 05/20/2018 Patient Education: Patient Medication [...] : I10 05/10/2018 Appointment: Yvette David WPtel: [address] [place], [place] [phone] FOLLOW UP 05/10/2018 Patient Education: Patient Medication [...] I10 05/03/2018 Appointment: [facility]Ptel[facility] [address] [phone] ACUTE ILLNESS 05/03/2018 Patient Education: Patient Medication [...] E03.9 04/22/2018 Appointment: Yvette David WPtel: [address] [phone] FOLLOW UP 04/22/2018 Patient Education: Patient [...] ICD-10 : B02.9 03/05/2018 Appointment: Natalee Gray [address] [place], [place] [phone] ACUTE ILLNESS 03/05/2018 Patient Education: Patient Medication [...] ICD-10 : H61.23 02/19/2018 Appointment: Natalee Gray [address] [place], [place] [id number] ACUTE ILLNESS 02/19/2018 Patient Education: Patient Medication Summary Completed 02/19/2018 Appointment: Yvette David WPtel: [address] [place] [phone] LAB 02/13/2018 Patient Education: Patient Medication Summary [...] : G47.33 10/18/2017 Appointment: Yvette David WPtel: [facility] [phone] FOLLOW UP 10/18/2017 Patient Education: Patient Medication Summary Completed 10/18/2017 Appointment: Yvette David [facility]Ptel: [address] [phone] LAB 10/15/2017 Patient Education: Patient Medication Summary [...] ICD-10 : H61.23 07/24/2017 Appointment: Natalee Gray [address] [place], [place] [phone] ACUTE ILLNESS 07/24/2017 Patient Education: Patient Medication Summary Completed 07/24/2017 Referral: Jey Kaye WPtel: [address] [facility] [id number] Referral Initiated 07/05/2017 Patient Education: Patient Medication [...] R00.0 06/14/2017 Appointment: Yvette David [facility]Ptel: [address] [phone] FOLLOW UP 06/14/2017 Patient Education: Patient Medication Summary Completed 06/14/2017 Care Plan: Referral Order SNOMED-CT : [id number] Pending 06/14/2017 Visit Plan: ERx for Valtrex, system won' t allow ERx for Prednisone so it is called 10mg 2 po bid x 3 days then 1 po bid x 3 days then 1 po daily x 3 days then 1/2 po daily x 3 days then d/c She declines gabapentin or pain meds Anticipatory guidance discussed. 06/01/2017 Appointment: Demi Rocha [facility]Ptel[phone] [facility] [facility] 06/01/2017 Patient Education: Patient Medication [...] D51.8 03/30/2017 Appointment: Yvette David WPtel: [address] [phone] 7/6 lm ~sl FOLLOW UP 03/30/2017 [...] R53.83 01/17/2017 Appointment: Yvette David [facility]Ptel: [address] [phone] 4/25 lm`sl FOLLOW UP 01/17/2017 Patient Education: [...] Z00.00 12/18/2016 Appointment: Yvette David WPtel: [address] [phone] US 11/13 confirmed ~sl Annual Well Visit 12/18/2016 Patient Education: Patient Medication Summary Completed 12/18/2016 Appointment: Yvette David WPtel: [address] [phone] US LAB 12/11/2016 Patient Education: Patient [...] : R05 11/02/2016 Appointment: Yvette David WPtel: [facility] [phone] FOLLOW UP 11/02/2016 Appointment: Yvette David WPtel: [address] [place], [place] [phone] CANCELED 11/02/2016 Patient Education: Patient Medication Summary Completed 11/02/2016 Visit Diagnosis Plan: Acute upper respiratory infectio n, unspecified Discussion: Rx as above Discussed OTC meds and supportive care Notify if not improving so regimen can be changed before her upcoming trip in 2 weeks ICD-9 : 465.9 ICD-10 : J06.9 10/24/2016 Appointment: Elidia Calix [address] [place] [address] ACUTE ILLNESS 10/24/2016 Patient Education: Patient Medication Summary Completed 10/24/2016 Patient Education: Patient Medication Summary Completed 06/26/2016 Visit Plan: Office dip wnl/BP wnl Does s eem likely to be viral GI illness Supportive care with rxs as above Soft and bland diet Will need bloodwork if not improving 02/07/2016 Appointment: Elidia Calix [address] [place], [place] [phone] ACUTE ILLNESS 02/07/2016 Patient Education: Patient Medication Summary Completed 02/07/2016 Patient Education: Patient Medication Summary Completed 07/01/2015 Appointment: Yvette David WPtel: [address] [place], [place] [phone] LAB 05/27/2015 Patient Education: Patient Medication Summary Completed 05/27/2015 Visit Plan: Trial of Gralise 300mg at be [facility] with 4 oz tonic water Sharron's solution soaks to feet Check TSH, Free T4, B12, CMP, HbA1C now Call in 2weeks 05/26/2015 Appointment: Yvette David WPtel: [address] [place], [place] [phone] 05/25/2015 confirmed w patient ACUTE ILLNESS 10/2014 Patient Education: Patient Medication Summary Completed 05/26/2015 Appointment: Yvette David WPtel: [address] [phone] US Stool lab 02/19/2015 Patient Education: Patient Medication Summary Completed 02/19/2015 Appointment: Yvette David WPtel: [address] [phone] [place] Stool lab 01/20/2015 Patient Education: Patient Medication Summary Completed 01/20/2015 Appointment: Yvette David WPtel: [address] [place], [place] [phone] US LAB 12/15/2014 Patient Education: Patient Medication Summary Completed 12/15/2014 Appointment: Earline Morris WPtel: [address] [place], [place] [phone] ACUTE ILLNESS 11/30/2014 Patient Education: Patient Medication Summary Completed 11/30/2014 Appointment: Yvette David WPtel: [address] [place], [place] [phone] US LAB 11/26/2014 Patient Education: Patient Medication Summary Completed 11/26/2014 Appointment: Yvette David WPtel: [address] [place], [place] [phone] US LAB 08/14/2014 Patient Education: Patient Medication Summary Completed 08/14/2014 Visit Plan: Defers bone density Proceed with colonoscopy Change omeprazole to protonix Due for fasting lab next month 07/23/2014 Appointment: Yvette David WPtel: [address] [place], [place] [phone] ACUTE ILLNESS 07/23/2014 Patient Education: Patient Medication Summary Completed 07/23/2014 Patient Education: Patient Medication Summary Completed 06/05/2014 Appointment: Earline Morris WPtel: [address] [place], [place] [phone] US FOLLOW UP 03/09/2014 Patient Education: Patient Medication Summary Completed 03/09/2014 Appointment: Yvette Davidl: [address] [place], [place] [phone] ACUTE ILLNESS 02/05/2014 Patient Education: Patient Medication Summary Completed 02/05/2014 Appointment: Yvette David WPtel: [address] [place], [place] [phone] LAB 02/04/2014 Patient Education: Patient Medication Summary Completed 02/04/2014 Appointment: Earline Morris WPtel: [address] [place], [place] [phone] ACUTE ILLNESS 05/12/2013 Patient Education: Patient Medication Summary Completed 05/12/2013 Visit Plan: MRI results discussed Discus sed epidural injections SI joint injection as above Continue Celebrex 200mg daily 04/07/2013 Appointment: Yvette David WPtel: [address] [place], [place] [phone] 04/04 left message FOLLOW UP 04/07/2013 Patient Education: Patient Medication Summary Completed 04/07/2013 Visit Plan: Restart PT and epidural--may need updated MRI of L/S spine Tylenol prn Celebrex 200mg daily 03/31/2013 Appointment: Yvette David WPtel: [address] [place], [place] [phone] ACUTE ILLNESS 03/31/2013 Patient Education: Patient Medication Summary Completed 03/31/2013 Visit Plan: Injection to hip as above Pt will take Vimovo 500/20mg po daily for next week Call in 1wk on both hip and stomach Discussed that likely has arthritis in hip as well 10/09/2012 Appointment: Yvette David WPtel: [address] [place], [place] [phone] 10/08 Left message ACUTE ILLNESS 10/09/2012 Patient Education: Patient Medication Summary Completed 10/09/2012 Visit Plan: See urology--Dr. Hutchinson for cystocele Start Premarin vaginal Cream 1/2 gm vaginally twice weekly then repeat PAP in 3mos Continue nexium for 4 more weeks then start Zantac daily--notify if cough returns 03/28/2012 Appointment: Yvette David WPtel: [address] [place], [place] [phone] PAP 03/28/2012 Patient Education: Patient Medication Summary Completed 03/28/2012 Appointment: Yvette David WPtel: [address] [place], [place] [phone] LAB 03/18/2012 Patient Education: Patient Medication Summary Completed 03/18/2012 Appointment: Reyna Colón WPtel: [address] [place], [place] [phone] OFFICE SURGERY 2012 Patient Education: Patient Medication Summary Completed 2012 Visit Plan: Pap done Kegel exercises--de fers meds or surgery eval at this time Mammo due in January HI symbicort 09/27/2011 Appointment: Yvette David WPtel: [address] [place], [place] [phone] FOLLOW UP 09/27/2011 Patient Education: Patient Medication Summary Completed 09/27/2011 Visit Plan: Symbicort 160/4.5 2 p BID 09/13/2011 Appointment: Yvette David WPtel: [address] [place], [place] [phone] ACUTE ILLNESS 09/13/2011 Patient Education: Patient Medication Summary Completed 09/13/2011 Visit Plan: Cefdinir and medrol dose pac k. Discussed if no improvement by Sunday will obtain chest x-ray and CBC with mycoplasma. 08/07/2011 Appointment: Reyna Colón WPtel: [address] [place], [place] [phone] ACUTE ILLNESS 08/07/2011 Patient Education: Patient Medication Summary Completed 08/07/2011 Appointment: Yvette David WPtel: [address] [place], [place] [phone] 07/13/2011 Patient Education: Patient Medication Summary Completed 07/13/2011 Appointment: Yvette David WPtel: [address] [place], [place] [phone] LAB 03/13/2011 Patient Education: Patient Medication Summary Completed 03/13/2011 Appointment: Yvette David WPtel: [address] [place], [place] [phone] BP CHECK 02/06/2011 Patient Education: Patient Medication Summary Completed 02/06/2011 Appointment: Yvette David WPtel: [address] [place], [place] [phone] BP CHECK 01/20/2011 Patient Education: Patient Medication Summary Completed 01/20/2011 Appointment: Yvette David WPtel: [address] [place], [place] [phone] BP CHECK 01/12/2011 Patient Education: Patient Medication Summary Completed 01/12/2011 Visit Plan: Increase Synthroid to 75mcg po daily Increase fish oil to BID Start daily Toprol XL 12.5mg BP check in 1wk TSH and Free T4 in 2mos. 01/04/2011 Appointment: Yvette David WPtel: [address] [place], [place] [phone] FOLLOW UP 01/04/2011 Patient Education: Patient Medication Summary Completed 01/04/2011 Appointment: Yvette David WPtel: [address] [place], [place] [phone] LAB 12/16/2010 Patient Education: Patient Medication Summary Completed 12/16/2010 Visit Plan: Start PT May need MRI 02/14/2010 Appointment: Yvette David WPtel: [address] [place], [place] [phone] OFFICE SURGERY 02/14/2010 Patient Education: Patient Medication [...] (steroid). 02/07/2010 Appointment: Reyna Colón WPtel: [phone] [facility] [facility] 02/07/2010 Patient Education: Patient Medication Summary Completed 02/07/2010 Appointment: Yvette David [facility]Ptel: [facility] [phone] [facility] 12/22/2009 Patient Education: Patient Medication Summary Completed 12/22/2009 Referral: Lino Davila [address] [id number] [id number] Referral Initiated Instructions Comment Date . Supportive [...] data not found Advance Directives Filename Date [id number] 06/03/2012
--- OUTSIDE RECORDS SUMMARY | 2022-08-14 14:08 | XMS REPORT | CCD ---
Author Author Lucille David D.O. Organization [facility] Address [address] [place] [address] Phone Care Team Providers Care Distribution Collection Operator Name Role Phone Yvette David D.O., PP Unavailable CCM Unavailable Summary Purpose Interface Exchange Insurance Providers Payer name Policy type / Coverage type Covered republican ID Effective Begin Date Effective End Date WPS MEDICARE PART B [place] Medicare Part B [id number] Unknown Cigna Medicare Part B [id number] Unknown Family History Family History data not found Social History Social History Element Codes Description Effective Dates Tobacco history SNOMED CT: 983009724 Has never smoked or chewed tobacco 05/26/2015 Marital status Unknown 09/13/2011 Allergies, Adverse Reactions, Alerts Substance Reaction Codes Entered Date Inactivated Date Status * NO KNOWN ENVIRONMENTAL ALLERGIES Unknown 02/07/2010 N o Inactive Date Active * NO KNOWN FOOD ALLERGIES Unknown 02/07/2010 No Inactiv e Date Active PENICILLINS reaction, Unknown 11/02/2016 No Inactive Date Active Problems Condition Codes Effective Dates Condition Status Chronic atrial fibrillation ICD-10: I48.20 ICD-9: 427.31 10/29/2019 Active Essential hypertension ICD-10: I10 ICD-9: 401.9 12/11/2016 Active Mild chronic obstructive pulmonary disease ICD-10: J44 .9 ICD-9: 496 05/22/2022 Active Skin cancer of arm ICD-10: C44.601 ICD-9: 173.60 05/22/2022 Active Anemia, unspecified ICD-10: D64.9 ICD-9: 285.9 05/05/2020 Active Atrial fibrillation and flutter ICD-10: I48.91 ICD-9: 427.31 02/27/2022 Active Essential (primary) hypertension ICD-10: I10 ICD-9: [...] ICD-10: G62.9 ICD-9: 355.9 12/18/2016 Active 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 ICD-10: Z79.899 ICD-9: V58.69 [...] Start Date Stop Date Status Fill Instructions venlafaxine ER 37.5 mg capsule,extended release 24 hr RxNorm : 818325 Take 1 Capsule(s) Oral QAM 06/16/2022 12/12/2022 Active simvastatin 20 mg tablet RxNorm: 063815 Take 1 Tablet(s) Oral QD 11/21/2022 Active Xarelto 20 mg tablet RxNorm: 7866691 Take 1 Tablet(s) Oral QD 05/22 No Stop Date Active amiodarone 200 mg tablet RxNorm: 219545 Take 1 Tablet(s) Oral QD No Stop Date Active Euthyrox 88 mcg tablet RxNorm: 285606 TAKE 1 TABLET BY MOUTH ONCE DAILY - DUE FOR UPDATED LAB 05/21/2022 08/18/2022 Active Breztri Aerosphere 160 mcg-9mcg-4.8mcg/actuation HFA a erosol inhaler RxNorm: 6174423 2 Puff(s) Inhalation two times a day in the morning an d evening 05/01/2022 05/01/2022 Inactive Breztri Aerosphere 160 mcg-9mcg-4.8mcg/actuation HFA a erosol inhaler RxNorm: 1648839 2 Puff(s) Inhalation two times a day in the morning an d evening 05/01/2022 05/30/2022 Inactive diltiazem CD 120 mg capsule,extended release 24 hr RxNorm: 8 48852 TAKE 1 CAPSULE BY MOUTH TWICE DAILY REPLACES 180MG DOSE 04/17/2022 10/13/2022 Active pantoprazole 40 mg tablet,delayed release RxNorm: 635366 Take 1 Tablet(s) Oral QD 04/17/2022 10/13/2022 Active Xarelto 10 mg tablet RxNorm: 0022750 Take 1 Tablet(s) Oral QD 03/2105/21/2022 Inactive simvastatin 20 mg tablet RxNorm: 578702 Take 1 Tablet(s) Oral QD 02/23/2022 Inactive levothyroxine 88 mcg tablet RxNorm: 695562 Take 1 table t by mouth once daily due for updated lab 02/22/2022 02/22/2022 Inactive Cartia XT 120 mg capsule,extended release RxNorm: 568273 TAKE 1 CAPSULE BY MOUTH TWICE DAILY REPLACES 180MG DOSE 01/16/2022 01/16/2022 Inactive pantoprazole 40 mg tablet,delayed release RxNorm: 977317 Take 1 Oral QD 12/15/2021 12/15/2021 Inactive scopolamine 1 mg over 3 days transdermal patch RxNorm: 82730 2 Take 1 Application Transdermal Q3D as needed 11/23/2021 No Stop Date Active Effexor XR 37.5 mg capsule,extended release RxNorm: 206123 1 Capsule(s) Oral QAM 11/23/2021 11/23/2021 Inactive levothyroxine 88 mcg tablet RxNorm: 765566 Take 1 tablet by alvaro th once daily 11/21/2021 11/21/2021 Inactive diltiazem CD 120 mg capsule,extended release 24 hr RxNorm: 8 39285 TAKE 1 CAPSULE BY MOUTH TWICE DAILY REPLACES 180MG DOSE 10/17/2021 10/17/2021 Inactiv e pantoprazole 40 mg tablet,delayed release RxNorm: 231077 Take 1 Tablet(s) Oral QD 10/17/2021 10/17/2021 Inactive Effexor XR 37.5 mg capsule,extended release RxNorm: 752174 1 Capsule(s) Oral QAM 10/12/2021 11/22/2021 Inactive metoprolol succinate ER 50 mg tablet,extended release 24 hr RxNorm: 247179 Take 1/2 (one-half) tablet by mouth twice daily 09/14/2021 03/12/2022 Inact beto Xarelto 10 mg tablet RxNorm: 6229990 Take 1 Tablet(s) Oral QD 09/1409/14/2021 Inactive simvastatin 20 mg tablet RxNorm: 496142 Take 1 Tablet(s) Oral QD 08/30/2021 Inactive levothyroxine 88 mcg tablet RxNorm: 408629 Take 1 tablet by alvaro th once daily 08/28/2021 08/28/2021 Inactive fluticasone propionate 50 mcg/actuation nasal spray,suspensi on RxNorm: 1906944 Take 1 Alpine Nasal QD in each nostrilas needed 08/09/2021 09/07/2021 I nactive pantoprazole 40 mg tablet,delayed release RxNorm: 465002 Take 1 Tablet(s) Oral QD 07/19/2021 07/19/2021 Inactive Xarelto 10 mg tablet RxNorm: 6372431 Take 1 Tablet(s) Oral QD 06/2906/29/2021 Inactive Euthyrox 88 mcg tablet RxNorm: 899260 Take 1 tablet by mouth on ce daily 05/24/2021 05/24/2021 Inactive Effexor XR 37.5 mg capsule,extended release RxNorm: 281712 1 Capsule(s) Oral QAM 05/12/2021 07/27/2021 Inactive Xarelto 10 mg tablet RxNorm: 3899887 Take 1 tablet by [facility] once daily Take 1 Tablet(s) Oral QD 04/19/2021 04/19/2021 Inactive metoprolol succinate ER 50 mg tablet,extended release 24 hr RxNorm: 289662 1/2 Tablet(s) Oral two times a day 04/12/2021 04/12/2021 Inactive d ecrease in dose of 1/2 tablet twice daily metoprolol succinate ER 50 mg tablet,extended release 24 hr RxNorm: 327960 Take 1/2 (one-half) tablet by mouth twice daily 04/12/2021 10/11/2021 Inact beto simvastatin 20 mg tablet RxNorm: 335202 Take 1 Tablet(s) Oral QD 03/07/2021 Inactive prednisone 10 mg tablet RxNorm: 787117 Take 1 Tablet(s) Oral tw o times a day 03/01/2021 03/01/2021 Inactive triamcinolone acetonide 0.1 % topical cream RxNorm: 0777672 Apply 1 Application Topical two times a day 03/01/2021 03/01/2021 Inactive prednisone 10 mg tablet RxNorm: 243560 Take 1 Tablet(s) Oral tw o times a day 03/01/2021 03/03/2021 Inactive triamcinolone acetonide 0.1 % topical cream RxNorm: 2889433 Apply 1 Application Topical two times a day 03/01/2021 03/01/2021 Inactive Euthyrox 88 mcg tablet RxNorm: 864243 Take 1 tablet by mouth on ce daily 02/22/2021 02/22/2021 Inactive Effexor XR 37.5 mg capsule,extended release RxNorm: 270157 1 Capsule(s) Oral QAM 02/03/2021 02/02/2021 Inactive Effexor XR 37.5 mg capsule,extended release RxNorm: 118239 1 Capsule(s) Oral QAM 02/03/2021 04/03/2021 Inactive simvastatin 20 mg tablet RxNorm: 951092 Take 1 tablet by mouth once daily 1 01/25/2021 01/25/2021 Inactive Cardizem CD 120 mg capsule,extended release RxNorm: 464006 1 Capsule(s) Oral two times a day replaces 180mg dose 01/19/2021 01/19/2021 Inactive Protonix 40 mg tablet,delayed release RxNorm: 759056 1 Tablet(s ) Oral QD 01/17/2021 01/17/2021 Inactive Effexor XR 37.5 mg capsule,extended release RxNorm: 532156 1 Capsule(s) Oral QAM 01/04/2021 02/02/2021 Inactive scopolamine 1 mg over 3 days transdermal patch RxNorm: 74443 2 1 Application Transdermal behind ear for vertigo 01/04/2021 01/03/2021 Inactive scopolamine 1 mg over 3 days transdermal patch RxNorm: 97638 2 1 Application Transdermal behind ear for vertigo 01/04/2021 01/04/2021 Inactive metoprolol succinate ER 50 mg tablet,extended release 24 hr RxNorm: 495760 1/2 Tablet(s) Oral two times a day 12/29/2020 12/28/2020 Inactive metoprolol succinate ER 50 mg tablet,extended release 24 hr RxNorm: 776615 1/2 Tablet(s) Oral two times a day 12/29/2020 12/29/2020 Inactive d ecrease in dose of 1/2 tablet twice daily Xarelto 10 mg tablet RxNorm: 8910513 Take 1 tablet by mouth once daily 12/29/2020 03/29/2021 Inactive Xarelto 10 mg tablet RxNorm: 5701149 Take 1 tablet by mouth once daily 11/26/2020 12/28/2020 Inactive simvastatin 20 mg tablet RxNorm: 998306 Take 1 tablet by mouth once daily 11/26/2020 01/24/2021 Inactive Synthroid 88 mcg tablet RxNorm: 762474 Take 1 tablet by mouth o nce daily 10/21/2020 10/21/2020 Inactive simvastatin 20 mg tablet RxNorm: 927929 Take 1 tablet by mouth once daily 09/30/2020 11/25/2020 Inactive Xarelto 10 mg tablet RxNorm: 2371203 Take 1 tablet by mouth once daily 08/26/2020 11/23/2020 Inactive metoprolol succinate ER 50 mg tablet,extended release 24 hr RxNorm: 308110 1 Tablet(s) Oral two times a day 08/05/2020 11/03/2020 Inactive simvastatin 20 mg tablet RxNorm: 719597 Take 1 tablet by mouth once daily 07/30/2020 09/27/2020 Inactive Synthroid 88 mcg tablet RxNorm: 626251 Take 1 tablet by mouth o nce daily 07/27/2020 10/20/2020 Inactive Protonix 40 mg tablet,delayed release RxNorm: 101868 1 Tablet(s ) Oral QD 07/26/2020 10/24/2020 Inactive Xarelto 10 mg tablet RxNorm: 5269353 1 Tablet(s) Oral QD 06/03/2020 1 10/26/2019 Inactive Cardizem CD 120 mg capsule,extended release RxNorm: 584245 1 Capsule(s) Oral two times a day replaces 180mg dose 05/11/2020 11/07/2020 Inactive Pradaxa 75 mg capsule RxNorm: 7080499 1 Capsule(s) Oral two time s a day 05/11/2020 05/11/2020 Inactive meclizine 25 mg tablet RxNorm: 352741 1 Tablet(s) Oral every ni ght at bedtime 05/05/2020 10/11/2021 Inactive simvastatin 20 mg tablet RxNorm: 178945 Take 1 tablet by mouth once daily 05/04/2020 05/10/2020 Inactive simvastatin 20 mg tablet RxNorm: 019971 TAKE 1 TABLET BY MOUTH ONCE DAILY 04/29/2020 09/19/2020 Inactive Synthroid 88 mcg tablet RxNorm: 730832 TAKE 1 TABLET BY MOUTH O NCE DAILY 04/20/2020 07/18/2020 Inactive diltiazem CD 180 mg capsule,extended release 24 hr RxNorm: 8 33248 TAKE 1 CAPSULE BY MOUTH TWICE DAILY 04/05/2020 05/10/2020 Inactive simvastatin 20 mg tablet RxNorm: 109034 TAKE 1 TABLET BY MOUTH ONCE DAILY 02/24/2020 04/23/2020 Inactive aspirin 325 mg tablet RxNorm: 912053 1 Tablet(s) Oral QD 02/11/2020 0 05/10/2020 Inactive hydroxyzine HCl 10 mg tablet RxNorm: 608427 1 Tablet(s) Oral th ree times a day 01/28/2020 05/10/2020 Inactive diltiazem CD 180 mg capsule,extended release 24 hr RxNorm: 8 87155 TAKE 1 CAPSULE BY MOUTH TWICE DAILY 01/19/2020 04/04/2020 Inactive spironolactone 25 mg tablet RxNorm: 420535 1 Tablet(s) Oral QOD replaces Triam/HCTZ 01/15/2020 01/14/2020 Inactive spironolactone 25 mg tablet RxNorm: 747973 1 Tablet(s) Oral QOD replaces Triam/HCTZ 01/15/2020 01/26/2020 Inactive prednisone 20 mg tablet RxNorm: 745778 1 Tablet(s) Oral QD 01/12/20 20 01/14/2020 Inactive prednisone 20 mg tablet RxNorm: 393422 1 Tablet(s) Oral QD 01/12/20 20 01/11/2020 Inactive Benadryl 25 mg capsule RxNorm: 4390998 1 Capsule(s) Oral every n ight at bedtime 01/08/2020 05/10/2020 Inactive Pepcid 20 mg tablet RxNorm: 136275 1 Tablet(s) Oral two times a day 01/08/2020 07/25/2020 Inactive Sarna Original 0.5 %-0.5 % lotion RxNorm: 367642 Topical 0 10/11/2021 Inactive Zyrtec 10 mg tablet RxNorm: 9147600 1 Tablet(s) Oral QAM 01/08/2020 0 05/10/2020 Inactive metoprolol succinate ER 50 mg tablet,extended release 24 hr RxNorm: 799472 1 Tablet(s) Oral two times a day 01/05/2020 04/04/2020 Inactive Protonix 40 mg tablet,delayed release RxNorm: 155180 TA KE 1 TABLET BY MOUTH ONCE DAILY 12/29/2019 05/10/2020 Inactive triamterene 37.5 mg-hydrochlorothiazide 25 mg tablet RxNorm: 350003 TAKE 1/2 (ONE-HALF) TABLET BY MOUTH EVERY OTHER DAY 12/24/2019 01/14/2020 Inact beto triamterene 37.5 mg-hydrochlorothiazide 25 mg tablet RxNorm: 630322 1/2 Tablet(s) Oral QD 12/12/2019 01/26/2020 Inactive diltiazem CD 180 mg capsule,extended release 24 hr RxNorm: 8 60836 TAKE 1 CAPSULE BY MOUTH TWICE DAILY 12/03/2019 01/18/2020 Inactive Eliquis 2.5 mg tablet RxNorm: 4446436 1 Tablet(s) Oral two times a day 11/25/2019 02/10/2020 Inactive simvastatin 20 mg tablet RxNorm: 294034 TAKE 1 TABLET BY MOUTH ONCE DAILY 11/25/2019 02/22/2020 Inactive triamterene 37.5 mg-hydrochlorothiazide 25 mg tablet RxNorm: 563676 1/2 Tablet(s) Oral QOD 11/06/2019 12/11/2019 Inactive triamterene 37.5 mg-hydrochlorothiazide 25 mg tablet RxNorm: 504386 1/2 Tablet(s) Oral QD 10/22/2019 10/28/2019 Inactive meclizine 25 mg tablet RxNorm: 556998 1 Tablet(s) Oral every ni ght at bedtime 10/20/2019 11/19/2019 Inactive Synthroid 88 mcg tablet RxNorm: 486469 TAKE 1 TABLET BY MOUTH O NCE DAILY 10/20/2019 10/21/2019 Inactive scopolamine 1 mg over 3 days transdermal patch RxNorm: 76917 2 1 Unit Dose Transdermal Q72H for vertigo 10/14/2019 01/04/2020 Inactive scopolamine 1 mg over 3 days transdermal patch RxNorm: 08787 2 1 Unit Dose Transdermal Q72H for vertigo 10/14/2019 10/14/2019 Inactive Celebrex 200 mg capsule RxNorm: 666325 TAKE 1 CAPSULE BY MOUTH ONCE DAILY 10/12/2019 10/28/2019 Inactive triamterene 37.5 mg-hydrochlorothiazide 25 mg tablet RxNorm: 224711 1 Tablet(s) Oral QAM 10/06/2019 10/21/2019 Inactive diltiazem CD 180 mg capsule,extended release 24 hr RxNorm: 8 29113 1 Capsule(s) Oral two times a day 10/01/2019 11/29/2019 Inactive simvastatin 20 mg tablet RxNorm: 680618 TAKE 1 TABLET BY MOUTH ONCE DAILY 10/01/2019 10/01/2019 Inactive Patient will need to have fasting labs done before next refill Protonix 40 mg tablet,delayed release RxNorm: 301082 TA KE 1 TABLET BY MOUTH ONCE DAILY 09/28/2019 12/26/2019 Inactive diltiazem CD 180 mg capsule,extended release 24 hr RxNorm: 8 16268 1 Capsule(s) Oral two times a day 08/11/2019 08/10/2019 Inactive diltiazem CD 180 mg capsule,extended release 24 hr RxNorm: 8 25787 1 Capsule(s) Oral two times a day 08/11/2019 09/30/2019 Inactive diltiazem CD 120 mg capsule,extended release 24 hr RxNorm: 8 41906 1 Capsule(s) Oral two times a day 07/23/2019 08/10/2019 Inactive Celebrex 200 mg capsule RxNorm: 682280 1 Capsule(s) Oral QD 019 07/08/2019 Inactive Celebrex 200 mg capsule RxNorm: 736080 1 Capsule(s) Oral QD 019 10/07/2019 Inactive diltiazem CD 120 mg capsule,extended release 24 hr RxNorm: 8 38418 1 Capsule(s) Oral QAM 07/07/2019 07/22/2019 Inactive Eliquis 2.5 mg tablet RxNorm: 2898757 1 Tablet(s) Oral two times a day 07/07/2019 11/04/2019 Inactive metoprolol succinate ER 50 mg tablet,extended release 24 hr RxNorm: 300597 1 Tablet(s) Oral QAM and 2 tablets in the evening 06/30/2019 08/05/2020 Inactive hydrochlorothiazide 25 mg tablet RxNorm: 269411 1 Tablet(s) PO QD 1 07/06/2019 Inactive hydrochlorothiazide 25 mg tablet RxNorm: 643567 1 Tablet(s) PO QD 0 05/08/2019 05/07/2019 Inactive patient needs to follow up i n 2 months and continue BP readings at home hydrochlorothiazide 25 mg tablet RxNorm: 405791 1 Tablet(s) PO QD 0 05/08/2019 06/25/2019 Inactive patient needs to follow up i n 2 months and continue BP readings at home metoprolol succinate ER 50 mg tablet,extended release 24 hr RxNorm: 513684 1 Tablet(s) PO QAM and 2 tablets in the evening 05/08/2019 06/29/2019 In active hydrochlorothiazide 12.5 mg tablet RxNorm: 926602 1 Tablet(s) PO QA M 04/15/2019 05/07/2019 Inactive Synthroid 88 mcg tablet RxNorm: 075573 TAKE 1 TABLET BY MOUTH O NCE DAILY 04/14/2019 10/19/2019 Inactive Protonix 40 mg tablet,delayed release RxNorm: 187015 TA KE 1 TABLET BY MOUTH ONCE DAILY 03/24/2019 09/27/2019 Inactive simvastatin 20 mg tablet RxNorm: 222733 TAKE 1 TABLET BY MOUTH ONCE DAILY 03/24/2019 09/30/2019 Inactive losartan 100 mg tablet RxNorm: 250647 1/2 Tablet(s) PO QD 2019 04/14/2019 Inactive Cozaar 50 mg tablet RxNorm: 923663 1 Tablet(s) PO QHS 01/28/201903/25 Inactive Celebrex 200 mg capsule RxNorm: 185327 TAKE 1 CAPSULE BY MOUTH ONCE DAILY 01/10/2019 07/08/2019 Inactive Protonix 40 mg tablet,delayed release RxNorm: 046345 TA KE 1 TABLET BY MOUTH ONCE DAILY 12/23/2018 03/23/2019 Inactive metoprolol succinate ER 50 mg tablet,extended release 24 hr RxNorm: 988123 1.5 Tablet(s) PO BID 12/03/2018 04/14/2019 Inactive Synthroid 88 mcg tablet RxNorm: 500158 1 Tablet(s) PO QD 10/24/2018 0 04/13/2019 Inactive simvastatin 20 mg tablet RxNorm: 254938 1 Tablet(s) PO QD 09/27/2018 12/25/2018 Inactive simvastatin 20 mg tablet RxNorm: 119591 1 Tablet(s) PO QD 09/26/2018 09/26/2018 Inactive Cozaar 50 mg tablet RxNorm: 679652 1 Tablet(s) PO QHS 09/09/201802/2019 Inactive Cozaar 50 mg tablet RxNorm: 925055 1 Tablet(s) PO QHS 09/09/201808/24 Inactive metoprolol succinate ER 50 mg tablet,extended release 24 hr RxNorm: 546682 1.5 Tablet(s) PO BID 09/02/2018 11/30/2018 Inactive Cozaar 50 mg tablet RxNorm: 447220 1 Tablet(s) PO QHS 05/24/201808/24 Inactive Cozaar 25 mg tablet RxNorm: 380939 1 Tablet(s) PO QAM 05/10/201804/25 Inactive clonidine HCl 0.1 mg tablet RxNorm: 956379 1 Tablet(s) PO TID as needed for BP greater than 160/95 05/10/2018 05/20/2018 Inactive betamethasone dipropionate 0.05 % topical cream RxNorm: 2389 20 1 Application TOP BID 05/06/2018 11/25/2018 Inactive prednisone 20 mg tablet RxNorm: 317752 1 Tablet(s) PO QD 05/06/2018 0 05/05/2018 Inactive prednisone 20 mg tablet RxNorm: 457451 1 Tablet(s) PO QD 05/06/2018 0 05/10/2018 Inactive metoprolol succinate ER 50 mg tablet,extended release 24 hr RxNorm: 896123 1.5 Tablet(s) PO BID 05/06/2018 09/01/2018 Inactive Flonase Allergy Relief 50 mcg/actuation nasal spray,suspensi on RxNorm: 8761624 2 Alpine NASAL QHS 05/03/2018 11/25/2018 Inactive Celebrex 200 mg capsule RxNorm: 734886 TAKE ONE CAPSULE BY MOUT H ONCE DAILY 04/30/2018 05/02/2018 Inactive Celebrex 200 mg capsule RxNorm: 228028 1 Capsule(s) PO QD TAKE ONE CAPSULE BY MOUTH ONCE DAILY 04/30/2018 05/02/2018 Inactive Synthroid 88 mcg tablet RxNorm: 477268 1 Tablet(s) PO QD 03/12/2018 1 11/08/2017 Inactive acyclovir 5 % topical ointment RxNorm: 341042 1 Unit Dose TOP Q 6H as needed 03/05/2018 11/25/2018 Inactive Protonix 40 mg tablet,delayed release RxNorm: 487656 1 Tablet(s ) PO QD 12/17/2017 12/22/2018 Inactive simvastatin 20 mg tablet RxNorm: 274863 TAKE ONE TABLET BY MOUT H ONCE DAILY 12/17/2017 09/27/2018 Inactive Celebrex 200 mg capsule RxNorm: 998048 TAKE ONE CAPSULE BY MOUT H ONCE DAILY 10/30/2017 04/29/2018 Inactive Synthroid 88 mcg tablet RxNorm: 727384 1 Tablet(s) PO QD 09/19/2017 0 03/12/2018 Inactive Synthroid 88 mcg tablet RxNorm: 224049 1 Tablet(s) PO QD Needs updated labs 09/19/2017 10/24/2018 Inactive Synthroid 88 mcg tablet RxNorm: 229459 1 Tablet(s) PO QD 06/20/2017 1 11/18/2016 Inactive simvastatin 20 mg tablet RxNorm: 803780 1 Tablet(s) PO QD 06/15/2017 09/12/2017 Inactive simvastatin 20 mg tablet RxNorm: 721091 1 Tablet(s) PO QD 06/15/2017 06/14/2017 Inactive metoprolol succinate ER 25 mg tablet,extended release 24 hr RxNorm: 205793 1 Tablet(s) PO QD 06/14/2017 07/23/2017 Inactive Valtrex 1 gram tablet RxNorm: 229944 1 Tablet(s) PO TID 06/01/2017 Inactive Celebrex 200 mg capsule RxNorm: 590375 1 Capsule(s) PO QD 05/01/2017 10/27/2017 Inactive Toprol XL 25 mg tablet,extended release RxNorm: 304451 / Tabl et(s) PO QD 04/12/2017 06/13/2017 Inactive simvastatin 20 mg tablet RxNorm: 803012 1 Tablet(s) PO QD 03/19/2017 06/14/2017 Inactive Synthroid 88 mcg tablet RxNorm: 853397 1 Tablet(s) PO QD 03/14/2017 0 06/20/2017 Inactive aspirin 81 mg chewable tablet RxNorm: 802259 1 Tablet(s) PO QD 12/2404/21/2018 Inactive simvastatin 20 mg tablet RxNorm: 760811 TAKE ONE TABLET BY MOUT H ONCE DAILY 12/19/2016 03/19/2017 Inactive gabapentin 300 mg capsule RxNorm: 401973 1 Capsule(s) PO QHS 201603/29/2017 Inactive Protonix 40 mg tablet,delayed release RxNorm: 712932 TA KE ONE TABLET BY MOUTH ONCE DAILY 12/14/2016 12/08/2017 Inactive Flonase Allergy Relief 50 mcg/actuation nasal spray,suspensi on RxNorm: 1988190 2 Alpine NASAL QHS 11/02/2016 12/17/2016 Inactive clotrimazole-betamethasone 1 %-0.05 % topical cream RxNorm: 586626 1 Application TOP BID 11/02/2016 11/01/2016 Inactive clotrimazole-betamethasone 1 %-0.05 % topical cream RxNorm: 337804 1 Application TOP BID 11/02/2016 12/17/2016 Inactive Tessalon Perles 100 mg capsule RxNorm: 207815 1 Capsule(s) PO TID 0 11/02/2016 12/17/2016 Inactive amoxicillin 500 mg tablet RxNorm: 227738 1 Tablet(s) PO TID 017 11/01/2016 Inactive Toprol XL 25 mg tablet,extended release RxNorm: 663767 TAKE ONE-HALF TABLET BY MOUTH ONCE DAILY 10/19/2016 04/12/2017 Inactive Toprol XL 25 mg tablet,extended release RxNorm: 395367 1/2 Tablet(s) PO QD Due for routine fasting labs and appointment 10/19/2016 01/16/2017 Inactiv e gabapentin 600 mg tablet RxNorm: 535706 1 Tablet(s) PO QHS 07/24/20 16 12/17/2016 Inactive gabapentin 600 mg tablet RxNorm: 178520 TAKE ONE TABLET BY MOUT H AT BEDTIME 07/24/2016 07/23/2016 Inactive simvastatin 20 mg tablet RxNorm: 970867 TAKE ONE TABLET BY MOUT H ONCE DAILY 06/15/2016 12/11/2016 Inactive Celebrex 200 mg capsule RxNorm: 483379 1 Capsule(s) PO QD 05/10/2016 05/01/2017 Inactive Celebrex 200 mg capsule RxNorm: 391804 1 Capsule(s) PO QD 05/09/2016 05/09/2016 Inactive Synthroid 88 mcg tablet RxNorm: 811666 Tablet(s) 1 Tablet(s) PO QD 03/21/2016 09/16/2016 Inactive Synthroid 88 mcg tablet RxNorm: 639673 1 Tablet(s) PO QD 03/20/2016 0 03/20/2016 Inactive simvastatin 20 mg tablet RxNorm: 351289 TAKE ONE TABLET BY MOUT H ONCE DAILY 03/06/2016 06/03/2016 Inactive meclizine 25 mg tablet RxNorm: 703909 1 Tablet(s) PO TID as nee ded dizziness 02/07/2016 12/17/2016 Inactive Zofran ODT 4 mg disintegrating tablet RxNorm: 026349 1 Tablet(s) PO Q6H as needed for nausea 02/07/2016 12/17/2016 Inactive gabapentin 600 mg tablet RxNorm: 321206 TAKE ONE TABLET BY MOUT H AT BEDTIME 01/20/2016 07/17/2016 Inactive Synthroid 88 mcg tablet RxNorm: 051978 1 Tablet(s) PO QD 12/27/2015 0 03/19/2016 Inactive simvastatin 20 mg tablet RxNorm: 892521 1 Tablet(s) PO QD 12/06/2015 03/04/2016 Inactive Protonix 40 mg tablet,delayed release RxNorm: 476402 1 Tablet(s ) PO QD 12/06/2015 12/13/2016 Inactive Celebrex 200 mg capsule RxNorm: 873737 1 Capsule(s) PO QD 11/03/2015 05/10/2016 Inactive Celebrex 200 mg capsule RxNorm: 980597 1 Capsule(s) PO QD 11/03/2015 11/02/2015 Inactive simvastatin 20 mg tablet RxNorm: 987870 1 Tablet(s) PO QD 09/06/2015 12/04/2015 Inactive Gralise 600 mg tablet,extended release RxNorm: 5017089 1 Tablet( s) PO QD 08/23/2015 10/18/2015 Inactive Synthroid 88 mcg tablet RxNorm: 850361 1 Tablet(s) PO QD 06/30/2015 0 09/27/2015 Inactive simvastatin 20 mg tablet RxNorm: 883247 1 Tablet(s) PO QD 06/07/2015 09/04/2015 Inactive Synthroid 88 mcg tablet RxNorm: 318177 1 Tablet(s) PO QD 06/07/2015 1 Inactive Celebrex 200 mg capsule RxNorm: 520183 1 Capsule(s) PO QD 06/07/2015 11/02/2015 Inactive Protonix 40 mg tablet,delayed release RxNorm: 687335 1 Tablet(s ) PO QD 06/07/2015 12/03/2015 Inactive Toprol XL 25 mg tablet,extended release RxNorm: 542379 /2 Tabl et(s) PO QD 04/13/2015 10/09/2015 Inactive [SAVINGS FOR UNINSUR ED PATIENTS -- BIN:[id number], PCN: [id number], Group: [id number], ID# [id number], Process claim through [employer], for questions: . THIS IS NOT INSURANCE.] Synthroid 88 mcg tablet RxNorm: 907802 1 Tablet(s) PO Q D TAKE ONE TABLET BY MOUTH ONCE DAILY 03/29/2015 06/30/2015 Inactive Celebrex 200 mg capsule RxNorm: 577511 1 Capsule(s) PO QD 03/22/2015 06/06/2015 Inactive Celebrex 200 mg capsule RxNorm: 584880 1 Capsule(s) PO QD 02/22/2015 03/21/2015 Inactive Celebrex 200 mg capsule RxNorm: 192688 1 Capsule(s) PO QD 01/21/2015 02/21/2015 Inactive Synthroid 88 mcg tablet RxNorm: 673275 1 Tablet(s) PO Q D TAKE ONE TABLET BY MOUTH ONCE DAILY 12/21/2014 03/29/2015 Inactive meloxicam 15 mg tablet RxNorm: 988885 1 Tablet(s) PO QD 12/09/2014 Inactive [SAVINGS FOR NON-COVERED DRUGS -- BIN:[id number], PCN: [id number], Group: [id number], ID# [id number], Questions: . THIS IS NOT INSURANCE.] Protonix 40 mg tablet,delayed release RxNorm: 111869 1 Tablet(s ) PO QD 12/08/2014 06/05/2015 Inactive Protonix 40 mg tablet,delayed release RxNorm: 570291 1 Tablet(s ) PO QD 12/07/2014 12/07/2014 Inactive simvastatin 20 mg tablet RxNorm: 571313 TAKE ONE TABLET BY MOUT H ONCE DAILY 11/30/2014 05/28/2015 Inactive clotrimazole-betamethasone 1 %-0.05 % topical cream RxNorm: 3087 14 TOP BID 11/30/2014 11/01/2016 Inactive acetic acid 2 % ear solution RxNorm: 684715 5 Drop(s) OTIC Left ear QID 11/30/2014 12/06/2014 Inactive meloxicam 15 mg tablet RxNorm: 404544 1 Tablet(s) PO QD 10/30/2014 Inactive [SAVINGS FOR NON-COVERED DRUGS -- BIN:[id number], PCN: [id number], Group: [id number], ID# [id number], Questions: . THIS IS NOT INSURANCE.] meloxicam 15 mg tablet RxNorm: 168540 1 Tablet(s) PO QD 10/30/2014 Inactive Toprol XL 25 mg tablet,extended release RxNorm: 568492 1/2 Tabl et(s) PO QD 10/12/2014 04/09/2015 Inactive [SAVINGS FOR UNINSUR ED PATIENTS -- BIN:[id number], PCN: ASPROD1, Group: [id number], ID# [id number], Process claim through [employer], for questions: . THIS IS NOT INSURANCE.] Synthroid 88 mcg tablet RxNorm: 001190 1 Tablet(s) PO Q D TAKE ONE TABLET BY MOUTH ONCE DAILY 09/21/2014 12/19/2014 Inactive Protonix 40 mg tablet,delayed release RxNorm: 335389 1 Tablet(s ) PO QD 07/23/2014 11/19/2014 Inactive Synthroid 88 mcg tablet RxNorm: 409036 TAKE ONE TABLET BY MOUTH ONCE DAILY 06/23/2014 09/21/2014 Inactive omeprazole 40 mg capsule,delayed release RxNorm: 176028 1 Capsu le(s) PO QD 06/16/2014 07/22/2014 Inactive [SAVINGS FOR UNINSUR ED PATIENTS -- BIN:[id number], PCN: ASPROD1, Group: [id number], ID# [id number], Process claim through [employer], for questions: . THIS IS NOT INSURANCE.] Toprol XL 25 mg tablet,extended release RxNorm: 930277 1/2 Tabl et(s) PO QD 04/13/2014 10/12/2014 Inactive Celebrex 200 mg capsule RxNorm: 143069 1 Capsule(s) PO QD for pain 03/16/2014 10/29/2014 Inactive Medrol ([place]) 4 mg tablets in a dose pack RxNorm: 344028 Tablet(s) PO as directed 03/09/2014 07/22/2014 Inactive Synthroid 88 mcg tablet RxNorm: 086508 1 Tablet(s) PO QD 02/17/2014 0 06/23/2014 Inactive Celebrex 200 mg capsule RxNorm: 298315 1 Capsule(s) PO QD for pain 02/17/2014 03/15/2014 Inactive omeprazole 40 mg capsule,delayed release RxNorm: 800217 1 Capsu le(s) PO QD 02/05/2014 06/16/2014 Inactive Protonix 40 mg tablet,delayed release RxNorm: 727172 1 Tablet(s ) PO QD 01/23/2014 05/10/2020 Inactive Toprol XL 25 mg tablet,extended release RxNorm: 910190 1/2 Tablet(s) PO QD TAKE ONE-HALF TABLET BY MOUTH EVERY DAY 01/12/2014 04/13/2014 Inactive Synthroid 88 mcg tablet RxNorm: 268964 Tablet(s) PO MANDY E ONE TABLET BY MOUTH EVERY DAY 11/17/2013 02/17/2014 Inactive Celebrex 200 mg capsule RxNorm: 348469 1 Capsule(s) PO QD for pain 10/20/2013 02/17/2014 Inactive Toprol XL 25 mg tablet,extended release RxNorm: 391119 1/2 Tabl et(s) PO QD 07/17/2013 01/12/2014 Inactive Nexium 40 mg capsule,delayed release RxNorm: 540889 1 C apsule(s) PO QD Generic ok 07/14/2013 09/21/2013 Inactive Celebrex 200 mg capsule RxNorm: 263581 1 Capsule(s) PO QD for pain 06/19/2013 10/20/2013 Inactive Synthroid 88 mcg tablet RxNorm: 790477 1 Tablet(s) PO QD 05/13/2013 0 11/17/2013 Inactive TAKE ONE TABLET BY MOUTH EVERY DAY Nexium 40 mg capsule,delayed release RxNorm: 565485 Cap maureen(s) PO TAKE ONE CAPSULE BY MOUTH EVERY DAY 05/05/2013 07/13/2013 Inactive Celebrex 200 mg capsule RxNorm: 021199 1 Capsule(s) PO QD for pain 04/07/2013 06/19/2013 Inactive Esgic-Plus 50 mg-500 mg-40 mg capsule RxNorm: 389109 1 Capsule(s) PO Q4-6H prn headache 04/07/2013 04/07/2013 Inactive Toprol XL 25 mg tablet,extended release RxNorm: 336385 1/2 Tabl et(s) PO QD 12/16/2012 06/13/2013 Inactive Nexium 40 mg capsule,delayed release RxNorm: 721388 1 Capsule(s ) PO QD 11/20/2012 03/19/2013 Inactive Synthroid 88 mcg tablet RxNorm: 214043 1 Tablet(s) PO QD 10/28/2012 0 04/25/2013 Inactive TAKE ONE TABLET BY MOUTH EVERY DAY Toprol XL 25 mg tablet,extended release RxNorm: 902115 1/2 Tabl et(s) PO QD 09/25/2012 12/16/2012 Inactive Synthroid 88 mcg tablet RxNorm: 240300 1 Tablet(s) PO QD 04/22/2012 0 10/28/2012 Inactive TAKE ONE TABLET BY MOUTH EVERY DAY Nexium 40 mg capsule,delayed release RxNorm: 416770 1 Capsule(s ) PO QD 04/16/2012 11/20/2012 Inactive Esgic-Plus 50 mg-500 mg-40 mg capsule RxNorm: 069115 1 Capsule(s) PO Q4-6H prn headache 03/28/2012 04/06/2013 Inactive Toprol XL 25 mg tablet,extended release RxNorm: 110648 1/2 Tabl et(s) PO QD 03/07/2012 09/25/2012 Inactive Toprol XL 25 mg 24 hr Tab RxNorm: 324777 1/2 Tablet(s) PO QD 201101/03/2012 Inactive Three times a week Synthroid 88 mcg Tab RxNorm: 918710 1 Tablet(s) PO QD 10/10/201112/23 Inactive TAKE ONE TABLET BY MOUTH EVERY DAY prednisone 20 mg Tab RxNorm: 043666 1 Tablet(s) PO BID 09/13/2011 Inactive doxycycline 100 mg Cap RxNorm: 4838920 1 Capsule(s) PO BID 09/13/2009/22/2011 Inactive cefdinir 300 mg Cap RxNorm: 652113 1 Capsule(s) PO BID 08/07/2011 Inactive Synthroid 88 mcg Tab RxNorm: 777068 1 Tablet(s) PO QD 07/19/201109/24 Inactive TAKE ONE TABLET BY MOUTH EVERY DAY Synthroid 88 mcg Tab RxNorm: 423543 1 Tablet(s) PO QD 07/19/201103/26 Inactive TAKE ONE TABLET BY MOUTH EVERY DAY Synthroid 88 mcg Tab RxNorm: 919158 1 Tablet(s) PO QD 07/18/201106/25 Inactive TAKE ONE TABLET BY MOUTH EVERY DAY Synthroid 88 mcg Tab RxNorm: 391573 1 Tablet(s) PO QD 05/15/201106/25 Inactive TAKE ONE TABLET BY MOUTH EVERY DAY Synthroid 88 mcg Tab RxNorm: 622351 1 Tablet(s) PO QD 03/15/201104/25 Inactive Synthroid 75 mcg Tab RxNorm: 954057 1 Tablet(s) PO QD 01/04/201102/22 Inactive Synthroid 50 mcg Tab RxNorm: 477010 1 Tablet(s) PO QD G eneric okay. Please explain to patient that she may see more variation in her thyroid labs and increased symptoms. 07/07/2010 03/14/2011 Inactive Prednisone 20 mg Tab RxNorm: 713755 1 Tablet(s) PO BID 02/14/2010 Inactive Flexeril 10 mg Tab RxNorm: 031479 1 Tablet(s) PO TID 02/07/201002/13 Inactive Synthroid 25 mcg Tab RxNorm: 618675 1 Tablet(s) PO QD 12/29/200902/23 Inactive Synthroid 50 mcg Tab RxNorm: 164089 1 Tablet(s) PO QD 12/29/2009 10/0 11/2009 Inactive Vitamin D3 2,000 unit tablet RxNorm: 944534 1 Tablet(s) PO QAM 2014 Active coenzyme Q10 200 mg tablet RxNorm: 962422 1 Tablet(s) PO QD 09/01/2014 Active Trelegy Ellipta inhalation RxNorm: 8614785 inhalation 05/30/2022 Active Vitamin B12 1000mcg Tablet RxNorm: 1/2 Tablet(s) PO QD 04/03/2017 Active gabapentin 600 mg tablet RxNorm: 183634 1 Tablet(s) PO QPM 01/20/20 16 01/19/2016 Inactive Fish Oil 1,000 mg capsule RxNorm: 1 Capsule(s) PO QHS 10/18/2017 0 10/17/2017 Inactive Toprol XL 25 mg 24 hr Tab RxNorm: 372168 /2 Tablet(s) PO QD 201103/06/2012 Inactive turmeric root extract oral RxNorm: 9980704 oral 05/26/20152014 Inactive Esgic 50 mg-325 mg-40 mg tablet RxNorm: 850787 1 Tablet (s) PO Q4H as needed for pain 05/26/2015 05/25/2015 Inactive Synthroid 88 mcg Tab RxNorm: 711922 1 Tablet(s) PO QD 03/15/201102/23 Inactive Calcium with Vitamin D 600 mg-400 unit Tab RxNorm: 685935 1 Tab let(s) PO BID 03/31/2013 03/30/2013 Inactive Synthroid 50 mcg Tab RxNorm: 549455 1 Tablet(s) PO QD 03/16/201002/23 Inactive Celebrex 200 mg capsule RxNorm: 416844 1 Capsule(s) PO QD 01/21/2015 01/20/2015 Inactive betamethasone dipropionate 0.05 % topical cream RxNorm: 2389 20 1 Application TOP BID 05/06/2018 05/05/2018 Inactive Protonix 40 mg tablet,delayed release RxNorm: 799390 1 Tablet(s ) PO QD 01/23/2014 01/23/2014 Inactive Calcium + D 600 mg (1,500)-200 unit Tab RxNorm: 367544 1 Tablet (s) PO QD 01/04/2011 01/03/2011 Inactive simvastatin 20 mg tablet RxNorm: 224908 1 Tablet(s) PO QD 11/30/2014 11/29/2014 Inactive Fish Oil 1,000 mg capsule RxNorm: 2 Capsule(s) PO QD 05/26/2015 Inactive Gralise 600 mg tablet,extended release RxNorm: 9601962 1 Tablet( s) PO QD 08/23/2015 08/22/2015 Inactive Vitamin B12 1000mcg Tablet RxNorm: 1 Tablet(s) PO QD 04/03/2017 Inactive Esgic-Plus 50 mg-500 mg-40 mg Cap RxNorm: 621550 1 Caps ule(s) PO Q4-6H prn headache 03/28/2012 03/27/2012 Inactive Cozaar 50 mg tablet RxNorm: 787764 1 Tablet(s) PO QHS 05/24/201804/26 Inactive Toprol XL 25 mg 24 hr Tab RxNorm: 658263 2 Tablet(s) PO Three t imes a week 01/01/2012 12/31/2011 Inactive metoprolol succinate ER 25 mg tablet,extended release 24 hr RxNorm: 076511 1 Tablet(s) PO TID 10/18/2017 10/17/2017 Inactive metoprolol succinate ER 50 mg tablet,extended release 24 hr RxNorm: 523125 1.5 Tablet(s) PO QAM and tablet at bedtime 05/06/2018 05/05/2018 Inactive Esgic-Plus 50 mg-500 mg-40 mg Cap RxNorm: 314069 1 Capsule(s) P O Q4-6H 08/07/2011 08/06/2011 Inactive metoprolol succinate ER 50 mg tablet,extended release 24 hr RxNorm: 565570 1 Tablet(s) PO QD 04/22/2018 04/21/2018 Inactive Multivitamin & Mineral Formula Tab RxNorm: 1 Tablet(s) PO QD 0 03/31/2013 03/30/2013 Inactive metoprolol succinate ER 50 mg tablet,extended release 24 hr RxNorm: 394763 2 Tablet(s) PO QAM and 1.5 tablets (75mg) at bedtime 05/01/2019 9 Inactive Fish Oil 1,000 mg Cap RxNorm: 1 Capsule(s) PO QD 03/31/20132012 Inactive pantoprazole 40 mg tablet,delayed release RxNorm: 708503 1 Tabl et(s) PO QD 02/05/2014 02/04/2014 Inactive Eliquis 2.5 mg tablet RxNorm: 0746456 1 Tablet(s) PO BID 07/07/2019 1 Inactive Medrol 4 mg Tab RxNorm: 019906 Tablet(s) PO as directed 03/28/2012 Inactive Synthroid 75 mcg Tab RxNorm: 910948 1 Tablet(s) PO QD 02/14/201001/23 Inactive aspirin 81 mg tablet RxNorm: 812844 1 Tablet(s) PO QD 05/26/201509/2014 Inactive meclizine 25 mg tablet RxNorm: 325856 1 Tablet(s) PO TID as needed 11/26/2018 11/25/2018 Inactive metoprolol succinate ER 50 mg tablet,extended release 24 hr RxNorm: 955361 1 Tablet(s) PO QAM and 2 tablets in the evening 05/08/2019 05/07/2019 In active Aspirin 81 mg Tab RxNorm: 618308 1 Tablet(s) PO QD 03/31/2013 013 Inactive Vitamin D3 1,000 unit capsule RxNorm: 026514 1 Capsule(s) PO QD 04/201303/30/2013 Inactive Medication Administered No Medication Administered data Immunizations Vaccine Codes Dose Date Status Pneumococcal CVX: 133 0.5 ml 05/26/2015 Results Observation Observation Code Item Item Code Result Date S ervice Location GLYCOSYLATED HEMOGLOBIN TEST 42712 Hgb A1c 32977-7 6.0 % 0 03/01/2022 Unknown MEAN GLUC 6003867 Calc Mean Gluc 126 mg/dL 03/01/2022 Unkn own COMPREHENSIVE METABOLIC 61771 AST 16 U/L 2021 Unknown COMPREHENSIVE METABOLIC 94027 ALT 15 U/L 2021 Unknown COMPREHENSIVE METABOLIC 18196 BUN 18 mg/dL 2021 Unknown COMPREHENSIVE METABOLIC 47457 ALBUMIN 4.3 g/dL 2021 Unknown COMPREHENSIVE METABOLIC 59470 CHLORIDE 104 mmol/L 02/28 Unknown COMPREHENSIVE METABOLIC 58759 Bili Total 0.8 mg/dL 02/28 Unknown COMPREHENSIVE METABOLIC 42416 ALK PHOS 93 U/L 2021 Unknown COMPREHENSIVE METABOLIC 10772 SODIUM 143 mmol/L 02/28 Unknown COMPREHENSIVE METABOLIC 42213 CREATININE 0.82 mg/dL 03/2022 Unknown COMPREHENSIVE METABOLIC 25664 CALCIUM 9.8 mg/dL 2021 Unknown COMPREHENSIVE METABOLIC 56418 POTASSIUM 4.2 mmol/L 02/28 Unknown COMPREHENSIVE METABOLIC 67889 Total Protein 7.7 g/dL Unknown COMPREHENSIVE METABOLIC 48213 Glucose 116 mg/dL 2021 Unknown COMPREHENSIVE METABOLIC 66876 Bicarbonate 26 mmol/L 03/2022 Unknown COMPREHENSIVE METABOLIC 57940 AGAP 13 mmol/L 2021 Unknown FREE T4 13858 T4 Free 1.15 ng/dL 02/28/2022 Unknown THYROID STIMULATING HORMONE 22054 TSH 3.512 uIU/mL 02/28/2022 Unknown LIPID GROUP 78311 Cholesterol 158 mg/dL 02/28/2022 Unkno wn LIP[facility] GROUP 51343 Triglyceride 78 mg/dL 02/28/2022 Unkn own LIP[facility] GROUP 31895 HDL CHOLESTEROL 66 mg/dL 02/28/2022 U nknown LIPID GROUP 77006 Chol/HDL Ratio 2.39 ratio 02/28/2022 U nknown LIPID GROUP 30539 NON-HDL Chol 92 mg/dL 02/28/2022 Unkn own LIPID GROUP 37773 LDL Cholesterol 76 mg/dL 02/28/2022 U nknown COMPLETE BLOOD COUNT 8082401 WBC 6.9 10e9/L 02/29/20 22 Unknown COMPLETE BLOOD COUNT [id number] RBC 4.61 10e12/L 2021 Unknown COMPLETE BLOOD COUNT 6869368 HEMOGLOBIN 13.0 g/dL 02/29/20 22 Unknown COMPLETE BLOOD COUNT 1075848 HEMATOCRIT 42.1 % 02/29/20 22 Unknown COMPLETE BLOOD COUNT 8581352 MCV 91.3 fL 2 Unknown COMPLETE BLOOD COUNT 8083051 MCH 28.2 pg 2 Unknown COMPLETE BLOOD COUNT 6714790 MCHC 30.9 g/dL 2 Unknown COMPLETE BLOOD COUNT [id number] PLATELET COUNT 276 10e9/L 03/2022 Unknown COMPLETE BLOOD COUNT 3928008 Mean Plt Volume 10.6 fL 03/2022 Unknown COMPLETE BLOOD COUNT [id number] NRBC Absolute 0.00 10e9/L 03/2022 Unknown COMPLETE BLOOD COUNT [id number] Neut Auto 53.0 % 2 Unknown COMPLETE BLOOD COUNT 3409907 NRBC/100 WBC 0.0 2021 Unknown COMPLETE BLOOD COUNT [id number] Lymph Auto 32.0 % 02/29/20 22 Unknown COMPLETE BLOOD COUNT [id number] [place] Auto 11.0 % 2 Unknown COMPLETE BLOOD COUNT [id number] Eos Auto 2.5 % 2 Unknown COMPLETE BLOOD COUNT [id number] RDW 14.4 % 2 Unknown COMPLETE BLOOD COUNT 0062677 Baso Auto 1.4 % 2 Unknown COMPLETE BLOOD COUNT 1547734 Neutrophil Abs 3.66 10e9/L Unknown COMPLETE BLOOD COUNT [id number] Imm Gran Auto 0.1 % 02/28 Unknown COMPLETE BLOOD COUNT 9885073 Lymphocyte Abs 2.21 10e9/L Unknown COMPLETE BLOOD COUNT [id number] Monocyte Abs 0.76 10e9/L 03/2022 Unknown COMPLETE BLOOD COUNT 1161088 Eosinophil Abs 0.17 10e9/L Unknown COMPLETE BLOOD COUNT [id number] RDW-SD 47.8 fL 2 Unknown COMPLETE BLOOD COUNT 8180889 Basophil Abs 0.10 10e9/L 03/2022 Unknown COMPLETE BLOOD COUNT [id number] Imm Gran Abs 0.01 10e9/L 03/2022 Unknown GFR CALC 6300864 GFR >60 mL/min 02/28/2022 Unknown THYROID STIMULATING HORMONE 22870 TSH 3.017 uIU/mL 01/31/2021 Unknown COMPLETE BLOOD COUNT [id number] WBC 6.1 10e9/L 02/01/20 21 Unknown COMPLETE BLOOD COUNT [id number] RBC 4.22 10e12/L 2020 Unknown COMPLETE BLOOD COUNT [id number] HEMOGLOBIN 12.1 g/dL 02/01/20 21 Unknown COMPLETE BLOOD COUNT [id number] HEMATOCRIT 39.5 % 02/01/20 21 Unknown COMPLETE BLOOD COUNT 1676644 MCV 93.6 fL 1 Unknown COMPLETE BLOOD COUNT 7532838 MCH 28.7 pg 1 Unknown COMPLETE BLOOD COUNT 7398506 MCHC 30.6 g/dL 1 Unknown COMPLETE BLOOD COUNT 4858374 PLATELET COUNT 271 10e9/L 06/2021 Unknown COMPLETE BLOOD COUNT 3299532 Mean Plt Volume 11.0 fL 06/2021 Unknown COMPLETE BLOOD COUNT [id number] Neut Auto 57.3 % 1 Unknown COMPLETE BLOOD COUNT 6377710 Lymph Auto 28.3 % 02/01/20 21 Unknown COMPLETE BLOOD COUNT 9746143 [place] Auto 10.9 % 1 Unknown COMPLETE BLOOD COUNT 8734074 RDW 14.4 % 1 Unknown COMPLETE BLOOD COUNT [id number] Eos Auto 2.8 % 1 Unknown COMPLETE BLOOD COUNT 5144934 Baso Auto 0.7 % 1 Unknown COMPLETE BLOOD COUNT 6592731 Neutrophil Abs 3.50 10e9/L Unknown COMPLETE BLOOD COUNT [id number] Lymphocyte Abs 1.73 10e9/L Unknown COMPLETE BLOOD COUNT [id number] Monocyte Abs 0.66 10e9/L 01/22 Unknown COMPLETE BLOOD COUNT [id number] Eosinophil Abs 0.17 10e9/L Unknown COMPLETE BLOOD COUNT 3470343 RDW-SD 47.4 fL 1 Unknown COMPLETE BLOOD COUNT [id number] Basophil Abs 0.04 10e9/L 01/22 Unknown GLYCOSYLATED HEMOGLOBIN TEST 59711 Hgb A1c 48046-3 5.9 % 0 01/31/2021 Unknown LIPID GROUP 94199 Cholesterol 151 mg/dL 01/31/2021 Unkno wn LIPID GROUP 43642 Triglyceride 68 mg/dL 01/31/2021 Unkn own LIPID GROUP 05235 HDL CHOLESTEROL 64 mg/dL 01/31/2021 U nknown LIPID GROUP 94401 Chol/HDL Ratio 2.36 ratio 01/31/2021 U nknown LIPID GROUP 64786 NON-HDL Chol 87 mg/dL 01/31/2021 Unkn own LIPID GROUP 53395 LDL Cholesterol 73 mg/dL 01/31/2021 U nknown MEAN GLUC 5563073 Calc Mean Gluc 123 mg/dL 01/31/2021 Unkn own FREE T4 34140 T4 Free 1.11 ng/dL 01/31/2021 Unknown COMPREHENSIVE METABOLIC 39361 AST 16 U/L 2020 Unknown COMPREHENSIVE METABOLIC 08707 ALT 12 U/L 2020 Unknown COMPREHENSIVE METABOLIC 71149 BUN 14 mg/dL 2020 Unknown COMPREHENSIVE METABOLIC 21185 ALBUMIN 4.3 g/dL 2020 Unknown COMPREHENSIVE METABOLIC 13683 CHLORIDE 106 mmol/L 01/31 Unknown COMPREHENSIVE METABOLIC 16418 Bili Total 0.9 mg/dL 01/31 Unknown COMPREHENSIVE METABOLIC 29342 ALK PHOS 96 U/L 2020 Unknown COMPREHENSIVE METABOLIC 99426 SODIUM 144 mmol/L 01/31 Unknown COMPREHENSIVE METABOLIC 17630 CREATININE 0.77 mg/dL 01/22 Unknown COMPREHENSIVE METABOLIC 85739 CALCIUM 9.4 mg/dL 2020 Unknown COMPREHENSIVE METABOLIC 92067 POTASSIUM 4.2 mmol/L 01/31 Unknown COMPREHENSIVE METABOLIC 27009 Total Protein 7.4 g/dL Unknown COMPREHENSIVE METABOLIC 82007 Glucose 94 mg/dL 2020 Unknown COMPREHENSIVE METABOLIC 84666 Bicarbonate 30 mmol/L 01/22 Unknown COMPREHENSIVE METABOLIC 12551 AGAP 8 mmol/L 2020 Unknown GFR CALC 2488728 GFR Non Afr Amr >60 mL/min 01/31/2021 Un known GFR CALC 3072658 GFR Afr Amr >60 mL/min 01/31/2021 Unknow n COMPLETE BLOOD COUNT 7087922 WBC 6.9 10e9/L 01/05/20 20 Unknown COMPLETE BLOOD COUNT 9187420 RBC 4.20 10e12/L 2019 Unknown COMPLETE BLOOD COUNT 3796919 HEMOGLOBIN 12.2 g/dL 01/05/20 20 Unknown COMPLETE BLOOD COUNT [id number] HEMATOCRIT 39.2 % 01/05/20 20 Unknown COMPLETE BLOOD COUNT 7134114 MCV 93.3 fL 0 Unknown COMPLETE BLOOD COUNT 0565140 MCH 29.0 pg 0 Unknown COMPLETE BLOOD COUNT 9710463 MCHC 31.1 g/dL 0 Unknown COMPLETE BLOOD COUNT 0531642 PLATELET COUNT 272 10e9/L Unknown COMPLETE BLOOD COUNT 7858391 Mean Plt Volume 11.0 fL Unknown COMPLETE BLOOD COUNT 6837687 Neut Auto 61.4 % 0 Unknown COMPLETE BLOOD COUNT 8106752 Lymph Auto 22.4 % 01/05/20 20 Unknown COMPLETE BLOOD COUNT 4885800 [place] Auto 11.7 % 0 Unknown COMPLETE BLOOD COUNT 9041974 Eos Auto 3.6 % 0 Unknown COMPLETE BLOOD COUNT 2159849 RDW 14.6 % 0 Unknown COMPLETE BLOOD COUNT 6155113 Baso Auto 0.9 % 0 Unknown COMPLETE BLOOD COUNT 7031907 Neutrophil Abs 4.24 10e9/L Unknown COMPLETE BLOOD COUNT 4305061 Lymphocyte Abs 1.55 10e9/L Unknown COMPLETE BLOOD COUNT 8756969 Monocyte Abs 0.81 10e9/L 12/23 Unknown COMPLETE BLOOD COUNT 5581294 Eosinophil Abs 0.25 10e9/L Unknown COMPLETE BLOOD COUNT 1167950 RDW-SD 48.2 fL 0 Unknown COMPLETE BLOOD COUNT 1358458 Basophil Abs 0.06 10e9/L 12/23 Unknown COMPREHENSIVE METABOLIC 97472 AST 17 U/L 2019 Unknown COMPREHENSIVE METABOLIC 30819 ALT 12 U/L 2019 Unknown COMPREHENSIVE METABOLIC 94385 BUN 18 mg/dL 2019 Unknown COMPREHENSIVE METABOLIC 39082 ALBUMIN 4.5 g/dL 2019 Unknown COMPREHENSIVE METABOLIC 25993 CHLORIDE 101 mmol/L 01/04 Unknown COMPREHENSIVE METABOLIC 75943 Bili Total 0.8 mg/dL 01/04 Unknown COMPREHENSIVE METABOLIC 40548 ALK PHOS 76 U/L 2019 Unknown COMPREHENSIVE METABOLIC 43985 SODIUM 141 mmol/L 01/04 Unknown COMPREHENSIVE METABOLIC 76437 CREATININE 1.02 mg/dL 12/23 Unknown COMPREHENSIVE METABOLIC 24455 CALCIUM 9.5 mg/dL 2019 Unknown COMPREHENSIVE METABOLIC 05785 POTASSIUM 3.9 mmol/L 01/04 Unknown COMPREHENSIVE METABOLIC 15313 Total Protein 7.4 g/dL Unknown COMPREHENSIVE METABOLIC 66123 Glucose 89 mg/dL 2019 Unknown COMPREHENSIVE METABOLIC 60678 Bicarbonate 28 mmol/L 12/23 Unknown COMPREHENSIVE METABOLIC 27866 AGAP 12 mmol/L 2019 Unknown LIPASE 87494 Lipase Lvl 34 IU/L 01/05/2020 Unknown THYROID STIMULATING HORMONE 00773 TSH 3.767 uIU/mL 01/05/2020 Unknown AMYLASE 90433 Amylase Lvl 60 IU/L 01/05/2020 Unknown GFR CALC 2773773 GFR Non Afr Amr 52 mL/min 01/05/2020 Unk nown GFR CALC 2261911 GFR Afr Amr >60 mL/min 01/05/2020 Unknow n FREE T4 07616 T4 Free 1.11 ng/dL 01/05/2020 Unknown GFR CALC 2421655 GFR Afr Amr >60 mL/min 12/05/2019 Unknow n GFR CALC 7252966 GFR Non Afr Amr 59 mL/min 12/05/2019 Unk nown COMPREHENSIVE METABOLIC 73876 AST 15 U/L 2019 Unknown COMPREHENSIVE METABOLIC 89824 ALT 12 U/L 2019 Unknown COMPREHENSIVE METABOLIC 87198 BUN 19 mg/dL 2019 Unknown COMPREHENSIVE METABOLIC 63971 ALBUMIN 4.2 g/dL 2019 Unknown COMPREHENSIVE METABOLIC 09452 CHLORIDE 104 mmol/L 12/04 Unknown COMPREHENSIVE METABOLIC 20917 Bili Total 1.0 mg/dL 12/04 Unknown COMPREHENSIVE METABOLIC 34069 ALK PHOS 78 U/L 2019 Unknown COMPREHENSIVE METABOLIC 60770 SODIUM 145 mmol/L 12/04 Unknown COMPREHENSIVE METABOLIC 50272 CREATININE 0.91 mg/dL 11/22 Unknown COMPREHENSIVE METABOLIC 36509 CALCIUM 9.3 mg/dL 2019 Unknown COMPREHENSIVE METABOLIC 06979 POTASSIUM 3.6 mmol/L 12/04 Unknown COMPREHENSIVE METABOLIC 49526 Total Protein 7.0 g/dL Unknown COMPREHENSIVE METABOLIC 23349 Glucose 96 mg/dL 2019 Unknown COMPREHENSIVE METABOLIC 44832 Bicarbonate 28 mmol/L 11/22 Unknown COMPREHENSIVE METABOLIC 78094 AGAP 13 mmol/L 2019 Unknown COMPREHENSIVE METABOLIC 36132 AST 15 U/L 2019 Unknown COMPREHENSIVE METABOLIC 72079 ALT 11 U/L 2019 Unknown COMPREHENSIVE METABOLIC 57341 BUN 14 mg/dL 2019 Unknown COMPREHENSIVE METABOLIC 38124 ALBUMIN 4.3 g/dL 2019 Unknown COMPREHENSIVE METABOLIC 43151 CHLORIDE 106 mmol/L 11/05 Unknown COMPREHENSIVE METABOLIC 28571 Bili Total 0.7 mg/dL 11/05 Unknown COMPREHENSIVE METABOLIC 01627 ALK PHOS 80 U/L 2019 Unknown COMPREHENSIVE METABOLIC 30144 SODIUM 145 mmol/L 11/05 Unknown COMPREHENSIVE METABOLIC 44724 CREATININE 0.97 mg/dL 10/25 Unknown COMPREHENSIVE METABOLIC 96551 CALCIUM 9.5 mg/dL 2019 Unknown COMPREHENSIVE METABOLIC 88991 POTASSIUM 3.9 mmol/L 11/05 Unknown COMPREHENSIVE METABOLIC 45734 Total Protein 7.0 g/dL Unknown COMPREHENSIVE METABOLIC 02127 Glucose 103 mg/dL 2019 Unknown COMPREHENSIVE METABOLIC 58364 Bicarbonate 29 mmol/L 10/25 Unknown COMPREHENSIVE METABOLIC 81979 AGAP 10 mmol/L 2019 Unknown GFR CALC 7754043 GFR Non Afr Amr 55 mL/min 11/05/2019 Unk nown GFR CALC 4351025 GFR Afr Amr >60 mL/min 11/05/2019 Unknow n FREE T4 56293 T4 Free 1.34 ng/dL 10/21/2019 Unknown COMPLETE BLOOD COUNT 1089338 WBC 7.2 10e9/L 10/21/19 20 Unknown COMPLETE BLOOD COUNT 2552264 RBC 4.17 10e12/L 2019 Unknown COMPLETE BLOOD COUNT 1079456 HEMOGLOBIN 12.1 g/dL 10/21/19 20 Unknown COMPLETE BLOOD COUNT 3941416 HEMATOCRIT 39.0 % 10/21/19 20 Unknown COMPLETE BLOOD COUNT 5906130 MCV 93.5 fL 0 Unknown COMPLETE BLOOD COUNT 5018300 MCH 29.0 pg 0 Unknown COMPLETE BLOOD COUNT 0369910 MCHC 31.0 g/dL 0 Unknown COMPLETE BLOOD COUNT 2242910 PLATELET COUNT 239 10e9/L Unknown COMPLETE BLOOD COUNT 6672274 Mean Plt Volume 11.7 fL Unknown COMPLETE BLOOD COUNT 1841582 Neut Auto 63.7 % 0 Unknown COMPLETE BLOOD COUNT 3965066 Lymph Auto 21.0 % 10/21/19 20 Unknown COMPLETE BLOOD COUNT 0089985 [place] Auto 11.1 % 0 Unknown COMPLETE BLOOD COUNT 3648036 RDW 13.6 % 0 Unknown COMPLETE BLOOD COUNT 9089262 Eos Auto 3.6 % 0 Unknown COMPLETE BLOOD COUNT 7659999 Baso Auto 0.6 % 0 Unknown COMPLETE BLOOD COUNT 8001271 Neutrophil Abs 4.59 10e9/L Unknown COMPLETE BLOOD COUNT 7853196 Lymphocyte Abs 1.51 10e9/L Unknown COMPLETE BLOOD COUNT 8127833 Monocyte Abs 0.80 10e9/L 09/25 Unknown COMPLETE BLOOD COUNT 6007456 Eosinophil Abs 0.26 10e9/L Unknown COMPLETE BLOOD COUNT 7665396 Basophil Abs 0.04 10e9/L 09/25 Unknown COMPLETE BLOOD COUNT 1907685 RDW-SD 45.1 fL 0 Unknown GFR CALC 4648718 GFR Afr Amr 50 mL/min 10/21/2019 Unknown GFR CALC 3375819 GFR Non Afr Amr 42 mL/min 10/21/2019 Unk nown COMPREHENSIVE METABOLIC 88802 AST 16 U/L 2019 Unknown COMPREHENSIVE METABOLIC 36086 ALT 10 U/L 2019 Unknown COMPREHENSIVE METABOLIC 43186 BUN 20 mg/dL 2019 Unknown COMPREHENSIVE METABOLIC 38050 ALBUMIN 4.4 g/dL 2019 Unknown COMPREHENSIVE METABOLIC 10356 CHLORIDE 102 mmol/L 10/21 Unknown COMPREHENSIVE METABOLIC 55966 Bili Total 0.8 mg/dL 10/21 Unknown COMPREHENSIVE METABOLIC 62470 ALK PHOS 85 U/L 2019 Unknown COMPREHENSIVE METABOLIC 45605 SODIUM 144 mmol/L 10/21 Unknown COMPREHENSIVE METABOLIC 07414 CREATININE 1.24 mg/dL 09/25 Unknown COMPREHENSIVE METABOLIC 77659 CALCIUM 9.8 mg/dL 2019 Unknown COMPREHENSIVE METABOLIC 96629 POTASSIUM 4.2 mmol/L 10/21 Unknown COMPREHENSIVE METABOLIC 18065 Total Protein 7.3 g/dL Unknown COMPREHENSIVE METABOLIC 07126 Glucose 98 mg/dL 2019 Unknown COMPREHENSIVE METABOLIC 73324 Bicarbonate 31 mmol/L 09/25 Unknown COMPREHENSIVE METABOLIC 59093 AGAP 11 mmol/L 2019 Unknown THYROID STIMULATING HORMONE 73980 TSH 2.693 uIU/mL 10/21/2019 Unknown LIPID GROUP 60363 Cholesterol 142 mg/dL 10/21/2019 Unkno wn LIPID GROUP 53777 Triglyceride 120 mg/dL 10/21/2019 Unkn own LIPID GROUP 16771 HDL CHOLESTEROL 54 mg/dL 10/21/2019 U nknown LIPID GROUP 84502 Chol/HDL Ratio 2.63 ratio 10/21/2019 U nknown LIPID GROUP 29573 NON-HDL Chol 88 mg/dL 10/21/2019 Unkn own LIPID GROUP 96782 LDL Cholesterol 64 mg/dL 10/21/2019 U nknown GFR CALC [id number] GFR Afr Amr >60 mL/min 04/04/2019 Unknow n GFR CALC [id number] GFR Non Afr Amr >60 mL/min 04/04/2019 Un known COMPLETE BLOOD COUNT 5357578 WBC 5.9 10e9/L 04/04/20 19 Unknown COMPLETE BLOOD COUNT [id number] RBC 4.29 10e12/L 2018 Unknown COMPLETE BLOOD COUNT 1402985 HEMOGLOBIN 12.3 g/dL 04/04/20 19 Unknown COMPLETE BLOOD COUNT [id number] HEMATOCRIT 39.2 % 04/04/20 19 Unknown COMPLETE BLOOD COUNT [id number] MCV 91.4 fL 9 Unknown COMPLETE BLOOD COUNT [id number] MCH 28.7 pg 9 Unknown COMPLETE BLOOD COUNT 0771008 MCHC 31.4 g/dL 9 Unknown COMPLETE BLOOD COUNT 2526149 PLATELET COUNT 225 10e9/L 08/2019 Unknown COMPLETE BLOOD COUNT [id number] Mean Plt Volume 11.0 fL 08/2019 Unknown COMPLETE BLOOD COUNT 5561176 Neut Auto 57.2 % 9 Unknown COMPLETE BLOOD COUNT 4212435 Lymph Auto 27.3 % 04/04/20 19 Unknown COMPLETE BLOOD COUNT 4895117 [place] Auto 11.2 % 9 Unknown COMPLETE BLOOD COUNT 2588649 RDW 14.3 % 9 Unknown COMPLETE BLOOD COUNT 1241497 Eos Auto 3.4 % 9 Unknown COMPLETE BLOOD COUNT 9114004 Baso Auto 0.9 % 9 Unknown COMPLETE BLOOD COUNT 9106517 Neutrophil Abs 3.37 10e9/L Unknown COMPLETE BLOOD COUNT 3466581 Lymphocyte Abs 1.61 10e9/L Unknown COMPLETE BLOOD COUNT [id number] Monocyte Abs 0.66 10e9/L 03/24 Unknown COMPLETE BLOOD COUNT [id number] Eosinophil Abs 0.20 10e9/L Unknown COMPLETE BLOOD COUNT [id number] Basophil Abs 0.05 10e9/L 03/24 Unknown COMPLETE BLOOD COUNT [id number] RDW-SD 46.6 fL 9 Unknown THYROID STIMULATING HORMONE 30538 TSH 2.068 uIU/mL 04/04/2019 Unknown COMPREHENSIVE METABOLIC 48236 AST 17 U/L 2018 Unknown COMPREHENSIVE METABOLIC 62571 ALT 12 U/L 2018 Unknown COMPREHENSIVE METABOLIC 86051 BUN 17 mg/dL 2018 Unknown COMPREHENSIVE METABOLIC 09228 ALBUMIN 4.3 g/dL 2018 Unknown COMPREHENSIVE METABOLIC 08919 CHLORIDE 107 mmol/L 04/04 Unknown COMPREHENSIVE METABOLIC 90128 Bili Total 1.1 mg/dL 04/04 Unknown COMPREHENSIVE METABOLIC 83833 ALK PHOS 74 U/L 2018 Unknown COMPREHENSIVE METABOLIC 23091 SODIUM 144 mmol/L 04/04 Unknown COMPREHENSIVE METABOLIC 87168 CREATININE 0.70 mg/dL 03/24 Unknown COMPREHENSIVE METABOLIC 89480 CALCIUM 9.5 mg/dL 2018 Unknown COMPREHENSIVE METABOLIC 80010 POTASSIUM 4.1 mmol/L 04/04 Unknown COMPREHENSIVE METABOLIC 66533 Total Protein 6.8 g/dL Unknown COMPREHENSIVE METABOLIC 25783 Glucose 95 mg/dL 2018 Unknown COMPREHENSIVE METABOLIC 54239 Bicarbonate 29 mmol/L 03/24 Unknown COMPREHENSIVE METABOLIC 98157 AGAP 8 mmol/L 2018 Unknown FREE T4 97961 T4 Free 1.09 ng/dL 04/04/2019 Unknown LIPID GROUP 14635 Cholesterol 149 mg/dL 04/04/2019 Unkno wn LIPID GROUP 94509 Triglyceride 70 mg/dL 04/04/2019 Unkn own LIPID GROUP 21138 HDL CHOLESTEROL 62 mg/dL 04/04/2019 U nknown LIPID GROUP 82962 Chol/HDL Ratio 2.40 ratio 04/04/2019 U nknown LIPID GROUP 49296 NON-HDL Chol 87 mg/dL 04/04/2019 Unkn own LIPID GROUP 63096 LDL Cholesterol 73 mg/dL 04/04/2019 U nknown THYROID STIMULATING HORMONE 28320 TSH 3.698 uIU/mL 10/08/2018 Unknown FREE T4 75572 T4 Free 1.24 ng/dL 10/08/2018 Unknown GFR CALC 7312095 GFR Afr Amr >60 mL/min 10/07/2018 Unknow n GFR CALC 9618710 GFR Non Afr Amr >60 mL/min 10/07/2018 Un known COMPLETE BLOOD COUNT [id number] WBC 6.3 10e9/L 10/07/19 19 Unknown COMPLETE BLOOD COUNT [id number] RBC 4.22 10e12/L 2018 Unknown COMPLETE BLOOD COUNT [id number] HEMOGLOBIN 12.2 g/dL 10/07/19 19 Unknown COMPLETE BLOOD COUNT [id number] HEMATOCRIT 39.4 % 10/07/19 19 Unknown COMPLETE BLOOD COUNT [id number] MCV 93.4 fL 9 Unknown COMPLETE BLOOD COUNT [id number] MCH 28.9 pg 9 Unknown COMPLETE BLOOD COUNT 6395857 MCHC 31.0 g/dL 9 Unknown COMPLETE BLOOD COUNT 3367681 PLATELET COUNT 231 10e9/L Unknown COMPLETE BLOOD COUNT 9681328 Mean Plt Volume 11.2 fL Unknown COMPLETE BLOOD COUNT [id number] Neut Auto 55.7 % 9 Unknown COMPLETE BLOOD COUNT [id number] Lymph Auto 30.3 % 10/07/19 19 Unknown COMPLETE BLOOD COUNT 0359124 [place] Auto 9.6 % 9 Unknown COMPLETE BLOOD COUNT 3691968 RDW 14.0 % 9 Unknown COMPLETE BLOOD COUNT 5421807 Eos Auto 3.5 % 9 Unknown COMPLETE BLOOD COUNT 9250382 Baso Auto 0.9 % 9 Unknown COMPLETE BLOOD COUNT [id number] Neutrophil Abs 3.51 10e9/L Unknown COMPLETE BLOOD COUNT [id number] Lymphocyte Abs 1.91 10e9/L Unknown COMPLETE BLOOD COUNT [id number] Monocyte Abs 0.60 10e9/L 09/24 Unknown COMPLETE BLOOD COUNT [id number] Eosinophil Abs 0.22 10e9/L Unknown COMPLETE BLOOD COUNT [id number] Basophil Abs 0.06 10e9/L 09/24 Unknown COMPLETE BLOOD COUNT 9394372 RDW-SD 46.1 fL 9 Unknown COMPREHENSIVE METABOLIC 44819 AST 14 U/L 2018 Unknown COMPREHENSIVE METABOLIC 73680 ALT 10 U/L 2018 Unknown COMPREHENSIVE METABOLIC 86422 BUN 21 mg/dL 2018 Unknown COMPREHENSIVE METABOLIC 47720 ALBUMIN 4.4 g/dL 2018 Unknown COMPREHENSIVE METABOLIC 10298 CHLORIDE 105 mmol/L 10/07 Unknown COMPREHENSIVE METABOLIC 21489 Bili Total 0.7 mg/dL 10/07 Unknown COMPREHENSIVE METABOLIC 66110 ALK PHOS 80 U/L 2018 Unknown COMPREHENSIVE METABOLIC 00638 SODIUM 143 mmol/L 10/07 Unknown COMPREHENSIVE METABOLIC 38898 CREATININE 0.67 mg/dL 09/24 Unknown COMPREHENSIVE METABOLIC 41117 CALCIUM 9.3 mg/dL 2018 Unknown COMPREHENSIVE METABOLIC 61968 POTASSIUM 3.8 mmol/L 10/07 Unknown COMPREHENSIVE METABOLIC 24427 Total Protein 7.0 g/dL Unknown COMPREHENSIVE METABOLIC 32561 Glucose 98 mg/dL 2018 Unknown COMPREHENSIVE METABOLIC 81170 Bicarbonate 32 mmol/L 09/24 Unknown COMPREHENSIVE METABOLIC 45424 AGAP 6 mmol/L 2018 Unknown LIPID GROUP 14182 Cholesterol 160 mg/dL 10/07/2018 Unkno wn LIPID GROUP 62814 Triglyceride 101 mg/dL 10/07/2018 Unkn own LIPID GROUP 35244 HDL CHOLESTEROL 63 mg/dL 10/07/2018 U nknown LIPID GROUP 72906 Chol/HDL Ratio 2.54 ratio 10/07/2018 U nknown LIPID GROUP 43586 NON-HDL Chol 97 mg/dL 10/07/2018 Unkn own LIPID GROUP 41559 LDL Cholesterol 77 mg/dL 10/07/2018 U nknown MEAN GLUC 4585302 Calc Mean Gluc 114 mg/dL 10/07/2018 Unkn own GLYCOSYLATED HEMOGLOBIN TEST 21138 Hgb A1c 17939-0 5.6 % 0 10/07/2018 Unknown FREE T4 43969 T4 Free 1.21 ng/dL 02/14/2018 Unknown THYROID STIMULATING HORMONE 50303 TSH 2.977 uIU/mL 02/14/2018 Unknown COMPLETE BLOOD COUNT [id number] WBC 5.6 10e9/L 02/14/20 18 Unknown COMPLETE BLOOD COUNT 7478713 RBC 4.23 10e12/L 2017 Unknown COMPLETE BLOOD COUNT 0461488 HEMOGLOBIN 12.4 g/dL 02/14/20 18 Unknown COMPLETE BLOOD COUNT [id number] HEMATOCRIT 39.1 % 02/14/20 18 Unknown COMPLETE BLOOD COUNT 9109227 MCV 92.4 fL 8 Unknown COMPLETE BLOOD COUNT 3089460 MCH 29.3 pg 8 Unknown COMPLETE BLOOD COUNT 9093999 MCHC 31.7 g/dL 8 Unknown COMPLETE BLOOD COUNT 4996563 PLATELET COUNT 268 10e9/L Unknown COMPLETE BLOOD COUNT 1216587 Mean Plt Volume 11.0 fL Unknown COMPLETE BLOOD COUNT 8866085 Neut Auto 52.1 % 8 Unknown COMPLETE BLOOD COUNT [id number] Lymph Auto 32.0 % 02/14/20 18 Unknown COMPLETE BLOOD COUNT 0346221 [place] Auto 11.8 % 8 Unknown COMPLETE BLOOD COUNT 4088916 RDW 14.6 % 8 Unknown COMPLETE BLOOD COUNT 7179226 Eos Auto 3.2 % 8 Unknown COMPLETE BLOOD COUNT 0000774 Baso Auto 0.9 % 8 Unknown COMPLETE BLOOD COUNT 5769638 Neutrophil Abs 2.92 10e9/L Unknown COMPLETE BLOOD COUNT 8178945 Lymphocyte Abs 1.79 10e9/L Unknown COMPLETE BLOOD COUNT [id number] Monocyte Abs 0.66 10e9/L 01/23 Unknown COMPLETE BLOOD COUNT 2999689 Eosinophil Abs 0.18 10e9/L Unknown COMPLETE BLOOD COUNT 3612907 Basophil Abs 0.05 10e9/L 01/23 Unknown COMPLETE BLOOD COUNT 8607510 RDW-SD 48.2 fL 8 Unknown GFR CALC 3285148 GFR Afr Amr >60 mL/min 02/13/2018 Unknow n GFR CALC 3703083 GFR Non Afr Amr >60 mL/min 02/13/2018 Un known COMPREHENSIVE METABOLIC 15718 AST 18 U/L 2017 Unknown COMPREHENSIVE METABOLIC 23448 ALT 13 U/L 2017 Unknown COMPREHENSIVE METABOLIC 91913 BUN 14 mg/dL 2017 Unknown COMPREHENSIVE METABOLIC 30109 ALBUMIN 4.3 g/dL 2017 Unknown COMPREHENSIVE METABOLIC 58217 CHLORIDE 108 mmol/L 02/13 Unknown COMPREHENSIVE METABOLIC 59798 Bili Total 0.8 mg/dL 02/13 Unknown COMPREHENSIVE METABOLIC 95760 ALK PHOS 82 U/L 2017 Unknown COMPREHENSIVE METABOLIC 47939 SODIUM 144 mmol/L 02/13 Unknown COMPREHENSIVE METABOLIC 97285 CREATININE 0.67 mg/dL 01/23 Unknown COMPREHENSIVE METABOLIC 21728 CALCIUM 9.4 mg/dL 2017 Unknown COMPREHENSIVE METABOLIC 37568 POTASSIUM 4.1 mmol/L 02/13 Unknown COMPREHENSIVE METABOLIC 54504 Total Protein 6.9 g/dL Unknown COMPREHENSIVE METABOLIC 88458 Glucose 103 mg/dL 2017 Unknown COMPREHENSIVE METABOLIC 93771 Bicarbonate 27 mmol/L 01/23 Unknown COMPREHENSIVE METABOLIC 83295 AGAP 9 mmol/L 2017 Unknown LIPID GROUP 34652 Cholesterol 169 mg/dL 10/15/2017 Unkno wn LIPID GROUP 56221 Triglyceride 99 mg/dL 10/15/2017 Unkn own LIPID GROUP 78569 HDL CHOLESTEROL 69 10/15/2017 U nknown LIPID GROUP 86521 Chol/HDL Ratio 2.45 ratio 10/15/2017 U nknown LIPID GROUP 60762 NON-HDL Chol 100 mg/dL 10/15/2017 Unkn own LIPID GROUP 14754 LDL Cholesterol 80 mg/dL 10/15/2017 U nknown COMPREHENSIVE METABOLIC 62921 AST 17 U/L 2017 Unknown COMPREHENSIVE METABOLIC 11320 ALT 13 U/L 2017 Unknown COMPREHENSIVE METABOLIC 78404 BUN 22 mg/dL 2017 Unknown COMPREHENSIVE METABOLIC 77559 ALBUMIN 4.5 g/dL 2017 Unknown COMPREHENSIVE METABOLIC 15852 CHLORIDE 99 mmol/L 2017 Unknown COMPREHENSIVE METABOLIC 68794 Bili Total 0.8 mg/dL 10/15 Unknown COMPREHENSIVE METABOLIC 23105 ALK PHOS 78 U/L 2017 Unknown COMPREHENSIVE METABOLIC 72477 SODIUM 150 mmol/L 10/15 Unknown COMPREHENSIVE METABOLIC 65617 CREATININE 0.73 mg/dL 09/25 Unknown COMPREHENSIVE METABOLIC 64521 CALCIUM 9.5 mg/dL 2017 Unknown COMPREHENSIVE METABOLIC 65020 POTASSIUM 4.2 mmol/L 10/15 Unknown COMPREHENSIVE METABOLIC 58980 Total Protein 7.2 g/dL Unknown COMPREHENSIVE METABOLIC 90780 Glucose 96 mg/dL 2017 Unknown COMPREHENSIVE METABOLIC 58521 Bicarbonate 29 mmol/L 09/25 Unknown COMPREHENSIVE METABOLIC 03617 AGAP 22 mmol/L 2017 Unknown GFR CALC 4351157 GFR Non Afr Amr >60 mL/min 10/15/2017 Un known GFR CALC 8136481 GFR Afr Amr >60 mL/min 10/15/2017 Unknow n THYROID STIMULATING HORMONE 20156 TSH 4.502 uIU/mL 10/15/2017 Unknown FREE T4 79749 T4 Free 1.44 ng/dL 10/15/2017 Unknown VITAMIN B 12 68029 VITAMIN B12 698 pg/mL 10/15/2017 Unkn own COMPLETE BLOOD COUNT 7985537 WBC 6.3 10e9/L 10/15/19 18 Unknown COMPLETE BLOOD COUNT 1303090 RBC 4.37 10e12/L 2017 Unknown COMPLETE BLOOD COUNT 9970614 HEMOGLOBIN 12.6 g/dL 10/15/19 18 Unknown COMPLETE BLOOD COUNT 5929933 HEMATOCRIT 40.3 % 10/15/19 18 Unknown COMPLETE BLOOD COUNT 2877243 MCV 92.2 fL 8 Unknown COMPLETE BLOOD COUNT 1610291 MCH 28.8 pg 8 Unknown COMPLETE BLOOD COUNT 6492654 MCHC 31.3 g/dL 8 Unknown COMPLETE BLOOD COUNT 1471301 PLATELET COUNT 256 10e9/L Unknown COMPLETE BLOOD COUNT 0819662 Mean Plt Volume 11.1 fL Unknown COMPLETE BLOOD COUNT 8387801 Neut Auto 54.8 % 8 Unknown COMPLETE BLOOD COUNT 8111553 Lymph Auto 30.5 % 10/15/19 18 Unknown COMPLETE BLOOD COUNT 3018991 [place] Auto 10.4 % 8 Unknown COMPLETE BLOOD COUNT 2982812 Eos Auto 3.8 % 8 Unknown COMPLETE BLOOD COUNT 7511340 RDW 14.0 % 8 Unknown COMPLETE BLOOD COUNT 7507513 Baso Auto 0.5 % 8 Unknown COMPLETE BLOOD COUNT 1122167 Neutrophil Abs 3.45 10e9/L Unknown COMPLETE BLOOD COUNT 8680375 Lymphocyte Abs 1.92 10e9/L Unknown COMPLETE BLOOD COUNT 9500364 Monocyte Abs 0.66 10e9/L 09/25 Unknown COMPLETE BLOOD COUNT 5838314 Eosinophil Abs 0.24 10e9/L Unknown COMPLETE BLOOD COUNT 3518348 RDW-SD 46.1 fL 8 Unknown COMPLETE BLOOD COUNT 6355790 Basophil Abs 0.03 10e9/L 09/25 Unknown VITAMIN B 12 11886 VITAMIN B12 823 pg/mL 03/30/2017 Unkn own VITAMIN B 12 91005 VITAMIN B12 321 pg/mL 12/18/2016 Unkn own COMPLETE BLOOD COUNT 3836809 WBC 6.8 10e9/L 12/12/19 17 Unknown COMPLETE BLOOD COUNT 9032584 RBC 4.37 10e12/L 2016 Unknown COMPLETE BLOOD COUNT 8028138 HEMOGLOBIN 12.5 g/dL 12/12/19 17 Unknown COMPLETE BLOOD COUNT 2856137 HEMATOCRIT 39.3 % 12/12/19 17 Unknown COMPLETE BLOOD COUNT 6824295 MCV 89.9 fL 7 Unknown COMPLETE BLOOD COUNT 6119601 MCH 28.6 pg 7 Unknown COMPLETE BLOOD COUNT 4072347 MCHC 31.8 g/dL 7 Unknown COMPLETE BLOOD COUNT 0730728 PLATELET COUNT 248 10e9/L Unknown COMPLETE BLOOD COUNT 7264901 Mean Plt Volume 10.9 fL Unknown COMPLETE BLOOD COUNT 8228085 Neut Auto 52.0 % 7 Unknown COMPLETE BLOOD COUNT 3624383 Lymph Auto 33.4 % 12/12/19 17 Unknown COMPLETE BLOOD COUNT 2097452 [place] Auto 10.1 % 7 Unknown COMPLETE BLOOD COUNT 5281850 RDW 14.6 % 7 Unknown COMPLETE BLOOD COUNT 9481558 Eos Auto 3.8 % 7 Unknown COMPLETE BLOOD COUNT 5353452 Baso Auto 0.7 % 7 Unknown COMPLETE BLOOD COUNT 9928874 Neutrophil Abs 3.54 10e9/L Unknown COMPLETE BLOOD COUNT 0460618 Lymphocyte Abs 2.27 10e9/L Unknown COMPLETE BLOOD COUNT 0924355 Monocyte Abs 0.69 10e9/L 11/23 Unknown COMPLETE BLOOD COUNT 1385118 Eosinophil Abs 0.26 10e9/L Unknown COMPLETE BLOOD COUNT 3442011 RDW-SD 47.4 fL 7 Unknown COMPLETE BLOOD COUNT 3595579 Basophil Abs 0.05 10e9/L 11/23 Unknown COMPREHENSIVE METABOLIC 43492 AST 16 U/L 2016 Unknown COMPREHENSIVE METABOLIC 02481 ALT 12 U/L 2016 Unknown COMPREHENSIVE METABOLIC 12745 BUN 22 mg/dL 2016 Unknown COMPREHENSIVE METABOLIC 10739 ALBUMIN 4.2 g/dL 2016 Unknown COMPREHENSIVE METABOLIC 95546 CHLORIDE 104 mmol/L 12/11 Unknown COMPREHENSIVE METABOLIC 43331 Bili Total 0.7 mg/dL 12/11 Unknown COMPREHENSIVE METABOLIC 40508 ALK PHOS 78 U/L 2016 Unknown COMPREHENSIVE METABOLIC 06168 SODIUM 143 mmol/L 12/11 Unknown COMPREHENSIVE METABOLIC 39339 CREATININE 0.69 mg/dL 11/23 Unknown COMPREHENSIVE METABOLIC 01076 CALCIUM 9.5 mg/dL 2016 Unknown COMPREHENSIVE METABOLIC 80329 POTASSIUM 3.9 mmol/L 12/11 Unknown COMPREHENSIVE METABOLIC 44374 Total Protein 7.1 g/dL Unknown COMPREHENSIVE METABOLIC 97349 Glucose 103 mg/dL 2016 Unknown COMPREHENSIVE METABOLIC 84023 Bicarbonate 30 mmol/L 11/23 Unknown COMPREHENSIVE METABOLIC 26490 AGAP 9 mmol/L 2016 Unknown GFR CALC 9984179 GFR Non Afr Amr >60 mL/min 12/11/2016 Un known GFR CALC 2821978 GFR Afr Amr >60 mL/min 12/11/2016 Unknow n MEAN GLUC 4999486 Calc Mean Gluc 120 mg/dL 12/11/2016 Unkn own LIPID GROUP 60358 Cholesterol 162 mg/dL 12/11/2016 Unkno wn LIPID GROUP 55277 Triglyceride 80 mg/dL 12/11/2016 Unkn own LIPID GROUP 39903 HDL CHOLESTEROL 65 mg/dL 12/11/2016 U nknown LIPID GROUP 94354 Chol/HDL Ratio 2.49 ratio 12/11/2016 U nknown LIPID GROUP 55958 NON-HDL Chol 97 mg/dL 12/11/2016 Unkn own LIPID GROUP 79568 LDL Cholesterol 81 mg/dL 12/11/2016 U nknown FREE T4 59505 T4 Free 1.46 ng/dL 12/11/2016 Unknown THYROID STIMULATING HORMONE 26966 TSH 2.578 uIU/mL 12/11/2016 Unknown GLYCOSYLATED HEMOGLOBIN TEST 05593 Hgb A1c 90925-0 5.8 % 0 12/11/2016 Unknown FREE T4 62175 FREE T4 1.68 NG/DL 05/27/2015 Unknown LIPID GROUP 22517 HDL TEST 67 MG/DL 05/27/2015 Unknown LIPID GROUP 19895 TRIG 92 MG/DL 05/27/2015 Unknown LIPID GROUP 28521 TEST LDL 84 MG/DL 05/27/2015 Unknown LIPID GROUP 95382 CHOL 169 MG/DL 05/27/2015 Unknown LIPID GROUP 30974 RCHOL/HDL 2.52 RATIO 05/27/2015 Unknow n LIPID GROUP 10663 NON-HDL CH 102 MG/DL 05/27/2015 Unknow n GLYCOSYLATED HEMOGLOBIN TEST 14781 A1C HPLC 56692-0 5.9 % 0 05/27/2015 Unknown VITAMIN B 12 74922 VIT B 12 308 PG/ML 05/27/2015 Unknow n GFR CALC 4213353 GFR AA >60 ML/MIN 05/27/2015 Unknown GFR CALC 2367732 GFR NON-AA >60 ML/MIN 05/27/2015 Unknown COMPREHENSIVE METABOLIC 00609 AST 20 U/L 2014 Unknown COMPREHENSIVE METABOLIC 88417 ALT 15 IU/L 2014 Unknown COMPREHENSIVE METABOLIC 27842 BUN 17 MG/DL 2014 Unknown COMPREHENSIVE METABOLIC 07602 ALBUMIN 4.3 GM/DL 2014 Unknown COMPREHENSIVE METABOLIC 69401 CHLORIDE 107 MMOL/L 05/27 Unknown COMPREHENSIVE METABOLIC 00472 BILI TOT 0.9 MG/DL 2014 Unknown COMPREHENSIVE METABOLIC 47471 ALK PHOS 85 U/L 2014 Unknown COMPREHENSIVE METABOLIC 67025 SODIUM 144 MMOL/L 05/27 Unknown COMPREHENSIVE METABOLIC 80507 CREATININE 0.76 MG/DL 11/2014 Unknown COMPREHENSIVE METABOLIC 84683 CALCIUM 9.5 MG/DL 2014 Unknown COMPREHENSIVE METABOLIC 53617 POTASSIUM 4.2 MMOL/L 05/27 Unknown COMPREHENSIVE METABOLIC 32612 PROT TOT 7.1 GM/DL 2014 Unknown COMPREHENSIVE METABOLIC 69717 Glucose 95 MG/DL 2014 Unknown COMPREHENSIVE METABOLIC 25994 BICARB 30 MMOL/L 2014 Unknown COMPREHENSIVE METABOLIC 07185 ANION GAP 7 MEQ/L 2014 Unknown COMPLETE BLOOD COUNT 9183193 WBC 6.5 10e9/L 05/27/20 15 Unknown COMPLETE BLOOD COUNT 4413831 RBC 4.35 10e12/L 2014 Unknown COMPLETE BLOOD COUNT 7886427 HGB 12.4 g/dL 5 Unknown COMPLETE BLOOD COUNT 4361320 HCT DET 39.3 % 5 Unknown COMPLETE BLOOD COUNT 7283681 MCV 90.3 fL 5 Unknown COMPLETE BLOOD COUNT 9565018 MCH 28.5 pg 5 Unknown COMPLETE BLOOD COUNT 0168764 MCHC 31.6 g/dL 5 Unknown COMPLETE BLOOD COUNT 1740826 PLT 245 10e9/L 05/27/20 15 Unknown COMPLETE BLOOD COUNT 6927823 MPV 11.1 fL 5 Unknown COMPLETE BLOOD COUNT 4944833 CRISTI % 53.9 % 5 Unknown COMPLETE BLOOD COUNT 3998975 LY % 30.8 % 5 Unknown COMPLETE BLOOD COUNT 5732583 MON % 11.2 % 5 Unknown COMPLETE BLOOD COUNT 8040353 EOS % 3.2 % 5 Unknown COMPLETE BLOOD COUNT 3583703 BASO % 0.9 % 5 Unknown COMPLETE BLOOD COUNT 5110643 RDW 14.5 % 5 Unknown COMPLETE BLOOD COUNT 9795639 ABS CRISTI 3.50 10e9/L 015 Unknown COMPLETE BLOOD COUNT 9020310 ABS LYMPH 2.00 10e9/L 015 Unknown COMPLETE BLOOD COUNT 5191870 ABS MONO 0.73 10e9/L 015 Unknown COMPLETE BLOOD COUNT 1740189 ABS EOS 0.21 10e9/L 015 Unknown COMPLETE BLOOD COUNT 4231535 ABS BASO 0.06 10e9/L 015 Unknown COMPLETE BLOOD COUNT 8602945 RDW-SD 46.3 fL 5 Unknown THYROID STIMULATING HORMONE 95008 TSH 2.909 uIU/ML 05/27/2015 Unknown IRON 18891 IRON TEST 63 UG/DL 12/15/2014 Unknown COMPLETE BLOOD COUNT 5079639 WBC 6.3 10e9/L 12/16/19 15 Unknown COMPLETE BLOOD COUNT 1054644 RBC 4.37 10e12/L 2014 Unknown COMPLETE BLOOD COUNT 0229317 HGB 12.6 g/dL 5 Unknown COMPLETE BLOOD COUNT 1644495 HCT DET 39.2 % 5 Unknown COMPLETE BLOOD COUNT 7150017 MCV 89.7 fL 5 Unknown COMPLETE BLOOD COUNT 4699527 MCH 28.8 pg 5 Unknown COMPLETE BLOOD COUNT 6895963 MCHC 32.1 g/dL 5 Unknown COMPLETE BLOOD COUNT 8626538 PLT 252 10e9/L 12/16/19 15 Unknown COMPLETE BLOOD COUNT 9449863 MPV 10.8 fL 5 Unknown COMPLETE BLOOD COUNT 5892457 CRISTI % 60.5 % 5 Unknown COMPLETE BLOOD COUNT 4293064 LY % 24.4 % 5 Unknown COMPLETE BLOOD COUNT 6122704 MON % 11.8 % 5 Unknown COMPLETE BLOOD COUNT 6886989 EOS % 2.7 % 5 Unknown COMPLETE BLOOD COUNT 5001997 BASO % 0.6 % 5 Unknown COMPLETE BLOOD COUNT 2580609 RDW 14.0 % 5 Unknown COMPLETE BLOOD COUNT 2812167 ABS CRISTI 3.81 10e9/L 015 Unknown COMPLETE BLOOD COUNT 3704104 ABS LYMPH 1.54 10e9/L 015 Unknown COMPLETE BLOOD COUNT 2919563 ABS MONO 0.74 10e9/L 015 Unknown COMPLETE BLOOD COUNT 9216579 ABS EOS 0.17 10e9/L 015 Unknown COMPLETE BLOOD COUNT 3731303 ABS BASO 0.04 10e9/L 015 Unknown COMPLETE BLOOD COUNT 1034258 RDW-SD 44.6 fL 5 Unknown GFR CALC 2015356 GFR AA >60 ML/MIN 11/26/2014 Unknown GFR CALC 2427547 GFR NON-AA >60 ML/MIN 11/26/2014 Unknown COMPREHENSIVE METABOLIC 72266 AST 16 U/L 2014 Unknown COMPREHENSIVE METABOLIC 50048 ALT 15 IU/L 2014 Unknown COMPREHENSIVE METABOLIC 36018 BUN 21 MG/DL 2014 Unknown COMPREHENSIVE METABOLIC 75930 ALBUMIN 4.4 GM/DL 2014 Unknown COMPREHENSIVE METABOLIC 29292 CHLORIDE 106 MMOL/L 11/26 Unknown COMPREHENSIVE METABOLIC 79492 BILI TOT 0.9 MG/DL 2014 Unknown COMPREHENSIVE METABOLIC 10278 ALK PHOS 83 U/L 2014 Unknown COMPREHENSIVE METABOLIC 43075 SODIUM 141 MMOL/L 11/26 Unknown COMPREHENSIVE METABOLIC 02380 CREATININE 0.68 MG/DL 01/2015 Unknown COMPREHENSIVE METABOLIC 48971 CALCIUM 9.4 MG/DL 2014 Unknown COMPREHENSIVE METABOLIC 58308 POTASSIUM 3.8 MMOL/L 11/26 Unknown COMPREHENSIVE METABOLIC 56295 PROT TOT 7.2 GM/DL 2014 Unknown COMPREHENSIVE METABOLIC 49826 Glucose 100 MG/DL 2014 Unknown COMPREHENSIVE METABOLIC 34303 BICARB 29 MMOL/L 2014 Unknown COMPREHENSIVE METABOLIC 48891 ANION GAP 6 MEQ/L 2014 Unknown LIPID GROUP 79745 HDL TEST 72 MG/DL 11/26/2014 Unknown LIPID GROUP 77428 TRIG 101 MG/DL 11/26/2014 Unknown LIPID GROUP 29860 TEST LDL 82 MG/DL 11/26/2014 Unknown LIPID GROUP 51758 CHOL 174 MG/DL 11/26/2014 Unknown LIPID GROUP 10338 RCHOL/HDL 2.42 RATIO 11/26/2014 Unknow n LIPID GROUP 06904 NON-HDL CH 102 MG/DL 11/26/2014 Unknow n GFR CALC 0132538 GFR AA >60 ML/MIN 08/14/2014 Unknown GFR CALC 5745947 GFR NON-AA >60 ML/MIN 08/14/2014 Unknown THYROID STIMULATING HORMONE 27377 TSH 2.261 uIU/ML 08/14/2014 Unknown COMPLETE BLOOD COUNT 5457605 WBC 5.8 10e9/L 08/14/20 14 Unknown COMPLETE BLOOD COUNT 7278438 RBC 4.33 10e12/L 2013 Unknown COMPLETE BLOOD COUNT 1840898 HGB 12.5 g/dL 4 Unknown COMPLETE BLOOD COUNT 0292873 HCT DET 39.2 % 4 Unknown COMPLETE BLOOD COUNT 8025306 MCV 90.5 fL 4 Unknown COMPLETE BLOOD COUNT 2089568 MCH 28.9 pg 4 Unknown COMPLETE BLOOD COUNT 1192924 MCHC 31.9 g/dL 4 Unknown COMPLETE BLOOD COUNT 0275738 PLT 260 10e9/L 08/14/20 14 Unknown COMPLETE BLOOD COUNT 4706999 MPV 10.9 fL 4 Unknown COMPLETE BLOOD COUNT 0948385 CRISTI % 52.9 % 4 Unknown COMPLETE BLOOD COUNT 6088617 LY % 31.0 % 4 Unknown COMPLETE BLOOD COUNT 9028341 MON % 11.3 % 4 Unknown COMPLETE BLOOD COUNT 0202164 EOS % 3.6 % 4 Unknown COMPLETE BLOOD COUNT 5936900 BASO % 1.2 % 4 Unknown COMPLETE BLOOD COUNT 0630088 RDW 13.9 % 4 Unknown COMPLETE BLOOD COUNT 6002196 ABS CRISTI 3.07 10e9/L 014 Unknown COMPLETE BLOOD COUNT 9417827 ABS LYMPH 1.80 10e9/L 014 Unknown COMPLETE BLOOD COUNT 3198033 ABS MONO 0.66 10e9/L 014 Unknown COMPLETE BLOOD COUNT 6083543 ABS EOS 0.21 10e9/L 014 Unknown COMPLETE BLOOD COUNT 7885051 ABS BASO 0.07 10e9/L 014 Unknown COMPLETE BLOOD COUNT 1563505 RDW-SD 44.8 fL 4 Unknown COMPREHENSIVE METABOLIC 94145 AST 15 U/L 2013 Unknown COMPREHENSIVE METABOLIC 26342 ALT 13 IU/L 2013 Unknown COMPREHENSIVE METABOLIC 93250 BUN 18 MG/DL 2013 Unknown COMPREHENSIVE METABOLIC 33089 ALBUMIN 4.4 GM/DL 2013 Unknown COMPREHENSIVE METABOLIC 36798 CHLORIDE 105 MMOL/L 08/14 Unknown COMPREHENSIVE METABOLIC 11436 BILI TOT 1.0 MG/DL 2013 Unknown COMPREHENSIVE METABOLIC 44126 ALK PHOS 88 U/L 2013 Unknown COMPREHENSIVE METABOLIC 87726 SODIUM 143 MMOL/L 08/14 Unknown COMPREHENSIVE METABOLIC 37565 CREATININE 0.70 MG/DL 07/26 Unknown COMPREHENSIVE METABOLIC 19130 CALCIUM 9.6 MG/DL 2013 Unknown COMPREHENSIVE METABOLIC 10682 POTASSIUM 3.9 MMOL/L 08/14 Unknown COMPREHENSIVE METABOLIC 53761 PROT TOT 7.0 GM/DL 2013 Unknown COMPREHENSIVE METABOLIC 05871 Glucose 100 MG/DL 2013 Unknown COMPREHENSIVE METABOLIC 43813 BICARB 31 MMOL/L 2013 Unknown COMPREHENSIVE METABOLIC 60110 ANION GAP 7 MEQ/L 2013 Unknown FREE T4 07806 FREE T4 1.59 NG/DL 08/14/2014 Unknown LIPID GROUP 73174 HDL TEST 66 MG/DL 08/14/2014 Unknown LIPID GROUP 56328 TRIG 106 MG/DL 08/14/2014 Unknown LIPID GROUP 90729 TEST LDL 152 MG/DL 08/14/2014 Unknown LIPID GROUP 11083 CHOL 239 MG/DL 08/14/2014 Unknown LIPID GROUP 86079 RCHOL/HDL 3.62 RATIO 08/14/2014 Unknow n LIPID GROUP 31298 NON-HDL CH 173 MG/DL 08/14/2014 Unknow n COMPREHENSIVE METABOLIC 82656 AST 16 U/L 2013 Unknown COMPREHENSIVE METABOLIC 15509 ALT 13 IU/L 2013 Unknown COMPREHENSIVE METABOLIC 39915 BUN 20 MG/DL 2013 Unknown COMPREHENSIVE METABOLIC 41035 ALBUMIN 4.4 GM/DL 2013 Unknown COMPREHENSIVE METABOLIC 58931 CHLORIDE 104 MMOL/L 02/04 Unknown COMPREHENSIVE METABOLIC 26469 BILI TOT 0.8 MG/DL 2013 Unknown COMPREHENSIVE METABOLIC 69745 ALK PHOS 79 U/L 2013 Unknown COMPREHENSIVE METABOLIC 76987 SODIUM 141 MMOL/L 02/04 Unknown COMPREHENSIVE METABOLIC 97872 CREATININE 0.73 MG/DL 01/22 Unknown COMPREHENSIVE METABOLIC 68385 CALCIUM 9.6 MG/DL 2013 Unknown COMPREHENSIVE METABOLIC 48473 POTASSIUM 4.0 MMOL/L 02/04 Unknown COMPREHENSIVE METABOLIC 06296 PROT TOT 7.2 GM/DL 2013 Unknown COMPREHENSIVE METABOLIC 45369 Glucose 96 MG/DL 2013 Unknown COMPREHENSIVE METABOLIC 55335 BICARB 31 MMOL/L 2013 Unknown COMPREHENSIVE METABOLIC 30269 ANION GAP 6 MEQ/L 2013 Unknown GFR CALC [id number] GFR AA >60 ML/MIN 02/04/2014 Unknown GFR CALC [id number] GFR NON-AA >60 ML/MIN 02/04/2014 Unknown FREE T4 70524 FREE T4 1.59 NG/DL 02/04/2014 Unknown COMPLETE BLOOD COUNT [id number] WBC 5.9 10e9/L 02/05/20 14 Unknown COMPLETE BLOOD COUNT [id number] RBC 4.37 10e12/L 2013 Unknown COMPLETE BLOOD COUNT 1654261 HGB 12.6 g/dL 4 Unknown COMPLETE BLOOD COUNT 7375549 HCT DET 39.0 % 4 Unknown COMPLETE BLOOD COUNT 6480032 MCV 89.2 fL 4 Unknown COMPLETE BLOOD COUNT [id number] MCH 28.8 pg 4 Unknown COMPLETE BLOOD COUNT [id number] MCHC 32.3 g/dL 4 Unknown COMPLETE BLOOD COUNT [id number] PLT 265 10e9/L 02/05/20 14 Unknown COMPLETE BLOOD COUNT 1073243 MPV 10.8 fL 4 Unknown COMPLETE BLOOD COUNT [id number] CRISTI % 55.5 % 4 Unknown COMPLETE BLOOD COUNT [id number] LY % 30.8 % 4 Unknown COMPLETE BLOOD COUNT 2594701 MON % 10.0 % 4 Unknown COMPLETE BLOOD COUNT 5577298 EOS % 2.7 % 4 Unknown COMPLETE BLOOD COUNT 5595161 BASO % 1.0 % 4 Unknown COMPLETE BLOOD COUNT 5555107 RDW 14.2 % 4 Unknown COMPLETE BLOOD COUNT [id number] ABS CRISTI 3.27 10e9/L 014 Unknown COMPLETE BLOOD COUNT [id number] ABS LYMPH 1.82 10e9/L 014 Unknown COMPLETE BLOOD COUNT [id number] ABS MONO 0.59 10e9/L 014 Unknown COMPLETE BLOOD COUNT [id number] ABS EOS 0.16 10e9/L 014 Unknown COMPLETE BLOOD COUNT 8885614 ABS BASO 0.06 10e9/L 014 Unknown COMPLETE BLOOD COUNT [id number] RDW-SD 45.2 fL 4 Unknown LIPID GROUP 69746 HDL TEST 69 MG/DL 02/04/2014 Unknown LIPID GROUP 71784 TRIG 121 MG/DL 02/04/2014 Unknown LIPID GROUP 78325 TEST LDL 144 MG/DL 02/04/2014 Unknown LIPID GROUP 75369 CHOL 237 MG/DL 02/04/2014 Unknown LIPID GROUP 97870 RCHOL/HDL 3.43 RATIO 02/04/2014 Unknow n THYROID STIMULATING HORMONE 34491 TSH 2.310 uIU/ML 02/04/2014 Unknown THYROID STIMULATING HORMONE 52875 TSH 2.429 uIU/ML 03/18/2012 Unknown COMPREHENSIVE METABOLIC 48211 AST 17 U/L 2011 Unknown COMPREHENSIVE METABOLIC 02020 ALT 15 IU/L 2011 Unknown COMPREHENSIVE METABOLIC 41227 BUN 17 MG/DL 2011 Unknown COMPREHENSIVE METABOLIC 39784 ALBUMIN 4.1 GM/DL 2011 Unknown COMPREHENSIVE METABOLIC 17426 CHLORIDE 108 MMOL/L 03/18 Unknown COMPREHENSIVE METABOLIC 89144 BILI TOT 0.7 MG/DL 2011 Unknown COMPREHENSIVE METABOLIC 05354 ALK PHOS 79 U/L 2011 Unknown COMPREHENSIVE METABOLIC 39790 SODIUM 144 MMOL/L 03/18 Unknown COMPREHENSIVE METABOLIC 01327 CREATININE 0.68 MG/DL 02/23 Unknown COMPREHENSIVE METABOLIC 12710 CALCIUM 9.0 MG/DL 2011 Unknown COMPREHENSIVE METABOLIC 57934 POTASSIUM 3.7 MMOL/L 03/18 Unknown COMPREHENSIVE METABOLIC 03287 PROT TOT 6.6 GM/DL 2011 Unknown COMPREHENSIVE METABOLIC 65745 Glucose 99 MG/DL 2011 Unknown COMPREHENSIVE METABOLIC 71763 BICARB 28 MMOL/L 2011 Unknown COMPREHENSIVE METABOLIC 62225 ANION GAP 8 MEQ/L 2011 Unknown LIPID GROUP 94583 HDL TEST 65 MG/DL 03/18/2012 Unknown LIPID GROUP 51634 TRIG 86 MG/DL 03/18/2012 Unknown LIPID GROUP 75636 TEST LDL 153 MG/DL 03/18/2012 Unknown LIPID GROUP 47381 CHOL 235 MG/DL 03/18/2012 Unknown LIPID GROUP 93432 RCHOL/HDL 3.62 RATIO 03/18/2012 Unknow n GFR CALC 1894463 GFR AA >60 ML/MIN 03/18/2012 Unknown GFR CALC 6338653 GFR NON-AA >60 ML/MIN 03/18/2012 Unknown COMPLETE BLOOD COUNT 97688 WBC 5.1 10e9/L 03/18/20 12 Unknown COMPLETE BLOOD COUNT 98447 RBC 4.32 10e12/L 2011 Unknown COMPLETE BLOOD COUNT 53574 HGB 12.4 g/dL 2 Unknown COMPLETE BLOOD COUNT 22125 HCT DET 38.4 % 2 Unknown COMPLETE BLOOD COUNT 99241 MCV 88.9 fL 2 Unknown COMPLETE BLOOD COUNT 20814 MCH 28.7 pg 2 Unknown COMPLETE BLOOD COUNT 06471 MCHC 32.3 g/dL 2 Unknown COMPLETE BLOOD COUNT 12304 PLT 245 10e9/L 03/18/20 12 Unknown COMPLETE BLOOD COUNT 08047 MPV 10.7 fL 2 Unknown COMPLETE BLOOD COUNT 42777 CRISTI % 52.9 % 2 Unknown COMPLETE BLOOD COUNT 71254 LY % 31.5 % 2 Unknown COMPLETE BLOOD COUNT 57645 MON % 12.3 % 2 Unknown COMPLETE BLOOD COUNT 90747 EOS % 2.9 % 2 Unknown COMPLETE BLOOD COUNT 09370 BASO % 0.4 % 2 Unknown COMPLETE BLOOD COUNT 74550 RDW 13.9 % 2 Unknown COMPLETE BLOOD COUNT 69907 ABS CRISTI 2.70 10e9/L 012 Unknown COMPLETE BLOOD COUNT 18145 ABS LYMPH 1.61 10e9/L 012 Unknown COMPLETE BLOOD COUNT 32365 ABS MONO 0.63 10e9/L 012 Unknown COMPLETE BLOOD COUNT 66647 ABS EOS 0.15 10e9/L 012 Unknown COMPLETE BLOOD COUNT 62357 ABS BASO 0.02 10e9/L 012 Unknown COMPLETE BLOOD COUNT 34760 RDW-SD 44.5 fL 2 Unknown FREE T4 65000 FREE T4 1.50 NG/DL 03/18/2012 Unknown LIPID GROUP 69817 HDL TEST 61 MG/DL 07/13/2011 Unknown LIPID GROUP 29732 TRIG 158 MG/DL 07/13/2011 Unknown LIPID GROUP 10316 TEST LDL 131 MG/DL 07/13/2011 Unknown LIPID GROUP 97676 CHOL 224 MG/DL 07/13/2011 Unknown LIPID GROUP 63739 RCHOL/HDL 3.67 RATIO 07/13/2011 Unknow n COMPREHENSIVE METABOLIC 75469 AST 19 U/L 2010 Unknown COMPREHENSIVE METABOLIC 85005 ALT 17 IU/L 2010 Unknown COMPREHENSIVE METABOLIC 17039 BUN 14 MG/DL 2010 Unknown COMPREHENSIVE METABOLIC 82357 ALBUMIN 4.2 GM/DL 2010 Unknown COMPREHENSIVE METABOLIC 23919 CHLORIDE 105 MMOL/L 07/13 Unknown COMPREHENSIVE METABOLIC 71782 BILI TOT 0.9 MG/DL 2010 Unknown COMPREHENSIVE METABOLIC 05746 ALK PHOS 71 U/L 2010 Unknown COMPREHENSIVE METABOLIC 88438 SODIUM 141 MMOL/L 07/13 Unknown COMPREHENSIVE METABOLIC 28755 CREATININE 0.68 MG/DL 06/25 Unknown COMPREHENSIVE METABOLIC 37844 CALCIUM 9.3 MG/DL 2010 Unknown COMPREHENSIVE METABOLIC 64444 POTASSIUM 3.8 MMOL/L 07/13 Unknown COMPREHENSIVE METABOLIC 57313 PROT TOT 6.5 GM/DL 2010 Unknown COMPREHENSIVE METABOLIC 44397 Glucose 94 MG/DL 2010 Unknown COMPREHENSIVE METABOLIC 56082 BICARB 28 MMOL/L 2010 Unknown COMPREHENSIVE METABOLIC 39565 ANION GAP 8 MEQ/L 2010 Unknown COMPLETE BLOOD COUNT 73130 WBC 5.4 10e9/L 07/13/20 11 Unknown COMPLETE BLOOD COUNT 39927 RBC 4.20 10e12/L 2010 Unknown COMPLETE BLOOD COUNT 06762 HGB 12.4 g/dL 1 Unknown COMPLETE BLOOD COUNT 89270 HCT DET 37.6 % 1 Unknown COMPLETE BLOOD COUNT 53610 MCV 89.5 fL 1 Unknown COMPLETE BLOOD COUNT 26680 MCH 29.5 pg 1 Unknown COMPLETE BLOOD COUNT 37072 MCHC 33.0 g/dL 1 Unknown COMPLETE BLOOD COUNT 06198 PLT 273 10e9/L 07/13/20 11 Unknown COMPLETE BLOOD COUNT 90227 MPV 10.7 fL 1 Unknown COMPLETE BLOOD COUNT 74778 CRISTI % 49.9 % 1 Unknown COMPLETE BLOOD COUNT 46567 LY % 35.9 % 1 Unknown COMPLETE BLOOD COUNT 71029 MON % 10.4 % 1 Unknown COMPLETE BLOOD COUNT 72671 EOS % 2.9 % 1 Unknown COMPLETE BLOOD COUNT 07801 BASO % 0.9 % 1 Unknown COMPLETE BLOOD COUNT 89134 RDW 13.8 % 1 Unknown COMPLETE BLOOD COUNT 13068 ABS CRISTI 2.69 10e9/L 011 Unknown COMPLETE BLOOD COUNT 94514 ABS LYMPH 1.94 10e9/L 011 Unknown COMPLETE BLOOD COUNT 38419 ABS MONO 0.56 10e9/L 011 Unknown COMPLETE BLOOD COUNT 07395 ABS EOS 0.16 10e9/L 011 Unknown COMPLETE BLOOD COUNT 99720 ABS BASO 0.05 10e9/L 011 Unknown COMPLETE BLOOD COUNT 30822 RDW-SD 44.4 fL 1 Unknown GFR CALC 0453171 GFR AA >60 ML/MIN 07/13/2011 Unknown GFR CALC 6759842 GFR NON-AA >60 ML/MIN 07/13/2011 Unknown FREE T4 14858 FREE T4 1.36 NG/DL 07/13/2011 Unknown THYROID STIMULATING HORMONE 40440 TSH 4.261 uIU/ML 07/13/2011 Unknown GFR CALC 6840359 GFR AA >60 ML/MIN 03/13/2011 Unknown GFR CALC 5354824 GFR NON-AA >60 ML/MIN 03/13/2011 Unknown LIPID GROUP 71352 HDL TEST 60 MG/DL 03/13/2011 Unknown LIPID GROUP 20155 TRIG 140 MG/DL 03/13/2011 Unknown LIPID GROUP 33886 TEST LDL 122 MG/DL 03/13/2011 Unknown LIPID GROUP 33483 CHOL 210 MG/DL 03/13/2011 Unknown LIPID GROUP 42940 RCHOL/HDL 3.50 RATIO 03/13/2011 Unknow n FREE T4 19476 FREE T4 1.36 NG/DL 03/13/2011 Unknown THYROID STIMULATING HORMONE 53695 TSH 7.688 uIU/ML 03/13/2011 Unknown COMPREHENSIVE METABOLIC 02612 AST 17 U/L 2010 Unknown COMPREHENSIVE METABOLIC 86538 ALT 12 IU/L 2010 Unknown COMPREHENSIVE METABOLIC 26745 BUN 19 MG/DL 2010 Unknown COMPREHENSIVE METABOLIC 88725 ALBUMIN 4.3 GM/DL 2010 Unknown COMPREHENSIVE METABOLIC 96223 CHLORIDE 105 MMOL/L 03/13 Unknown COMPREHENSIVE METABOLIC 93021 BILI TOT 0.6 MG/DL 2010 Unknown COMPREHENSIVE METABOLIC 56713 ALK PHOS 68 U/L 2010 Unknown COMPREHENSIVE METABOLIC 00010 SODIUM 139 MMOL/L 03/13 Unknown COMPREHENSIVE METABOLIC 89815 CREATININE 0.77 MG/DL 02/23 Unknown COMPREHENSIVE METABOLIC 12666 CALCIUM 9.2 MG/DL 2010 Unknown COMPREHENSIVE METABOLIC 14865 POTASSIUM 3.8 MMOL/L 03/13 Unknown COMPREHENSIVE METABOLIC 36189 PROT TOT 6.9 GM/DL 2010 Unknown COMPREHENSIVE METABOLIC 89269 Glucose 97 MG/DL 2010 Unknown COMPREHENSIVE METABOLIC 89619 BICARB 25 MMOL/L 2010 Unknown COMPREHENSIVE METABOLIC 40805 ANION GAP 9 MEQ/L 2010 Unknown FREE T4 88096 FREE T4 1.32 NG/DL 12/16/2010 Unknown COMPLETE BLOOD COUNT 16424 WBC 5.6 10e9/L 12/17/19 11 Unknown COMPLETE BLOOD COUNT 94906 RBC 4.38 10e12/L 2010 Unknown COMPLETE BLOOD COUNT 66337 HGB 12.5 g/dL 1 Unknown COMPLETE BLOOD COUNT 86384 HCT DET 38.7 % 1 Unknown COMPLETE BLOOD COUNT 74602 MCV 88.4 fL 1 Unknown COMPLETE BLOOD COUNT 34294 MCH 28.5 pg 1 Unknown COMPLETE BLOOD COUNT 33192 MCHC 32.3 g/dL 1 Unknown COMPLETE BLOOD COUNT 27928 PLT 249 10e9/L 12/17/19 11 Unknown COMPLETE BLOOD COUNT 81507 MPV 10.5 fL 1 Unknown COMPLETE BLOOD COUNT 17098 CRISTI % 52.8 % 1 Unknown COMPLETE BLOOD COUNT 78569 LY % 33.3 % 1 Unknown COMPLETE BLOOD COUNT 84775 MON % 9.8 % 1 Unknown COMPLETE BLOOD COUNT 69090 EOS % 3.4 % 1 Unknown COMPLETE BLOOD COUNT 16012 BASO % 0.7 % 1 Unknown COMPLETE BLOOD COUNT 09463 RDW 14.2 % 1 Unknown COMPLETE BLOOD COUNT 07363 ABS CRISTI 2.96 10e9/L 011 Unknown COMPLETE BLOOD COUNT 84730 ABS LYMPH 1.86 10e9/L 011 Unknown COMPLETE BLOOD COUNT 37279 ABS MONO 0.55 10e9/L 011 Unknown COMPLETE BLOOD COUNT 38629 ABS EOS 0.19 10e9/L 011 Unknown COMPLETE BLOOD COUNT 61937 ABS BASO 0.04 10e9/L 011 Unknown COMPLETE BLOOD COUNT 89321 RDW-SD 45.1 fL 1 Unknown GFR CALC 1867351 GFR AA >60 ML/MIN 12/16/2010 Unknown GFR CALC 1553947 GFR NON-AA >60 ML/MIN 12/16/2010 Unknown THYROID STIMULATING HORMONE 17220 TSH 7.082 uIU/ML 12/16/2010 Unknown COMPREHENSIVE METABOLIC 26165 AST 21 U/L 2010 Unknown COMPREHENSIVE METABOLIC 76916 ALT 18 IU/L 2010 Unknown COMPREHENSIVE METABOLIC 99013 BUN 22 MG/DL 2010 Unknown COMPREHENSIVE METABOLIC 23710 ALBUMIN 4.6 GM/DL 2010 Unknown COMPREHENSIVE METABOLIC 89874 CHLORIDE 102 MMOL/L 12/16 Unknown COMPREHENSIVE METABOLIC 47997 BILI TOT 0.6 MG/DL 2010 Unknown COMPREHENSIVE METABOLIC 02247 ALK PHOS 72 U/L 2010 Unknown COMPREHENSIVE METABOLIC 41777 SODIUM 140 MMOL/L 12/16 Unknown COMPREHENSIVE METABOLIC 84744 CREATININE 0.73 MG/DL 11/23 Unknown COMPREHENSIVE METABOLIC 62831 CALCIUM 9.4 MG/DL 2010 Unknown COMPREHENSIVE METABOLIC 55305 POTASSIUM 4.2 MMOL/L 12/16 Unknown COMPREHENSIVE METABOLIC 06121 PROT TOT 7.1 GM/DL 2010 Unknown COMPREHENSIVE METABOLIC 14699 Glucose 88 MG/DL 2010 Unknown COMPREHENSIVE METABOLIC 11142 BICARB 30 MMOL/L 2010 Unknown COMPREHENSIVE METABOLIC 92881 ANION GAP 8 MEQ/L 2010 Unknown LIPID GROUP 03854 HDL TEST 66 MG/DL 12/16/2010 Unknown LIPID GROUP 66889 TRIG 154 MG/DL 12/16/2010 Unknown LIPID GROUP 81248 TEST LDL 128 MG/DL 12/16/2010 Unknown LIPID GROUP 83302 CHOL 225 MG/DL 12/16/2010 Unknown LIPID GROUP 12309 RCHOL/HDL 3.41 RATIO 12/16/2010 Unknow n Procedures Procedure Codes Date ROUTINE VENIPUNCTURE CPT-4: 80092 02/28/2022 ASSAY OF FREE THYROXINE CPT-4: 65451 02/28/2022 ASSAY THYROID STIM HORMONE CPT-4: 94525 02/28/2022 COMPREHEN METABOLIC PANEL CPT-4: 55737 02/28/2022 COMPLETE CBC W/AUTO DIFF WBC CPT-4: 44675 02/28/2022 LIPID PANEL CPT-4: 93489 02/28/2022 A1C HPLC CPT-4: 55125 02/28/2022 SARSCOV & INF VIR A&B AG IA CPT-4: 10009 08/09/2021 CLEAR OUTER EAR CANAL CPT-4: 19026 08/09/2021 ROUTINE VENIPUNCTURE CPT-4: 55417 07/20/2021 ASSAY OF FREE THYROXINE CPT-4: 30293 07/20/2021 ASSAY THYROID STIM HORMONE CPT-4: 99894 07/20/2021 COMPREHEN METABOLIC PANEL CPT-4: 15061 07/20/2021 COMPLETE CBC W/AUTO DIFF WBC CPT-4: 23585 07/20/2021 A1C HPLC CPT-4: 41612 07/20/2021 DESTRUCT B9 LESION 1-14 CPT-4: 63736 05/12/2021 THER/PROPH/DIAG INJ SC/IM CPT-4: 79053 03/08/2021 TRIAMCINOLONE ACET INJ NOS CPT-4: J3301 03/08/2021 ROUTINE VENIPUNCTURE CPT-4: 44391 01/31/2021 COMPREHEN METABOLIC PANEL CPT-4: 11416 01/31/2021 COMPLETE CBC W/AUTO DIFF WBC CPT-4: 93950 01/31/2021 LIPID PANEL CPT-4: 71560 01/31/2021 ASSAY OF FREE THYROXINE CPT-4: 50304 01/31/2021 ASSAY THYROID STIM HORMONE CPT-4: 48571 01/31/2021 A1C HPLC CPT-4: 47188 01/31/2021 EXC TR-EXT B9+JOSE G 0.5 CM< CPT-4: 79396 05/19/2020 PPPS, subseq visit CPT-4: G0439 05/11/2020 ROUTINE VENIPUNCTURE CPT-4: 66803 05/05/2020 ASSAY OF FREE THYROXINE CPT-4: 04946 05/05/2020 ASSAY THYROID STIM HORMONE CPT-4: 36150 05/05/2020 COMPREHEN METABOLIC PANEL CPT-4: 21803 05/05/2020 COMPLETE CBC W/AUTO DIFF WBC CPT-4: 28476 05/05/2020 LIPID PANEL CPT-4: 50821 05/05/2020 A1C HPLC CPT-4: 33956 05/05/2020 THER/PROPH/DIAG INJ SC/IM CPT-4: 98991 01/28/2020 TRIAMCINOLONE ACET INJ NOS CPT-4: J3301 01/28/2020 ROUTINE VENIPUNCTURE CPT-4: 62750 01/05/2020 ASSAY OF FREE THYROXINE CPT-4: 68976 01/05/2020 ASSAY THYROID STIM HORMONE CPT-4: 83741 01/05/2020 COMPREHEN METABOLIC PANEL CPT-4: 92522 01/05/2020 COMPLETE CBC W/AUTO DIFF WBC CPT-4: 01812 01/05/2020 ASSAY OF AMYLASE CPT-4: 92472 01/05/2020 ASSAY OF LIPASE CPT-4: 29711 01/05/2020 ROUTINE VENIPUNCTURE CPT-4: 45646 12/05/2019 COMPREHEN METABOLIC PANEL CPT-4: 80182 12/05/2019 ROUTINE VENIPUNCTURE CPT-4: 30942 11/05/2019 COMPREHEN METABOLIC PANEL CPT-4: 43367 11/05/2019 URINALYSIS NONAUTO W/O SCOPE CPT-4: 77902 10/23/2019 URINE CULTURE/ COLONY COUNT CPT-4: 88248 10/23/2019 ROUTINE VENIPUNCTURE CPT-4: 36528 10/21/2019 ASSAY OF FREE THYROXINE CPT-4: 28555 10/21/2019 ASSAY THYROID STIM HORMONE CPT-4: 87905 10/21/2019 COMPREHEN METABOLIC PANEL CPT-4: 37502 10/21/2019 COMPLETE CBC W/AUTO DIFF WBC CPT-4: 42446 10/21/2019 LIPID PANEL CPT-4: 29391 10/21/2019 HYDRATION IV INFUSION INIT CPT-4: 24974 10/20/2019 Removal impacted cerumen using irrigation/lavage, unilateral CPT-4: 64850 10/20/2019 ROUTINE VENIPUNCTURE CPT-4: 12965 04/04/2019 COMPLETE CBC W/AUTO DIFF WBC CPT-4: 18247 04/04/2019 COMPREHEN METABOLIC PANEL CPT-4: 45659 04/04/2019 ASSAY THYROID STIM HORMONE CPT-4: 48262 04/04/2019 ASSAY OF FREE THYROXINE CPT-4: 09454 04/04/2019 LIPID PANEL CPT-4: 60448 04/04/2019 PPPS, subseq visit CPT-4: G0439 11/26/2018 ROUTINE VENIPUNCTURE CPT-4: 15207 10/07/2018 ASSAY THYROID STIM HORMONE CPT-4: 97986 10/07/2018 ASSAY OF FREE THYROXINE CPT-4: 61599 10/07/2018 COMPREHEN METABOLIC PANEL CPT-4: 27066 10/07/2018 COMPLETE CBC W/AUTO DIFF WBC CPT-4: 68347 10/07/2018 LIPID PANEL CPT-4: 51005 10/07/2018 A1C HPLC CPT-4: 59578 10/07/2018 CERUM REMOVAL CPT-4: 13504 06/25/2018 THER/PROPH/DIAG INJ SC/IM CPT-4: 47659 05/03/2018 TRIAMCINOLONE ACET INJ NOS CPT-4: J3301 05/03/2018 Removal impacted cerumen using irrigation/lavage, unilateral CPT-4: 78671 02/19/2018 ROUTINE VENIPUNCTURE CPT-4: 20558 02/13/2018 ASSAY OF FREE THYROXINE CPT-4: 88168 02/13/2018 ASSAY THYROID STIM HORMONE CPT-4: 82358 02/13/2018 COMPREHEN METABOLIC PANEL CPT-4: 94766 02/13/2018 COMPLETE CBC W/AUTO DIFF WBC CPT-4: 36654 02/13/2018 ROUTINE VENIPUNCTURE CPT-4: 25559 10/15/2017 ASSAY OF FREE THYROXINE CPT-4: 29253 10/15/2017 ASSAY THYROID STIM HORMONE CPT-4: 07399 10/15/2017 COMPREHEN METABOLIC PANEL CPT-4: 46954 10/15/2017 COMPLETE CBC W/AUTO DIFF WBC CPT-4: 75508 10/15/2017 LIPID PANEL CPT-4: 31399 10/15/2017 VITAMIN B-12 CPT-4: 69232 10/15/2017 CERUM REMOVAL CPT-4: 82605 07/24/2017 ROUTINE VENIPUNCTURE CPT-4: 28887 03/30/2017 VITAMIN B-12 CPT-4: 46495 03/30/2017 ROUTINE VENIPUNCTURE CPT-4: 05303 12/18/2016 VITAMIN B-12 CPT-4: 32188 12/18/2016 PPPS, subseq visit CPT-4: G0439 12/18/2016 ROUTINE VENIPUNCTURE CPT-4: 11161 12/11/2016 ASSAY OF FREE THYROXINE CPT-4: 85024 12/11/2016 ASSAY THYROID STIM HORMONE CPT-4: 14893 12/11/2016 COMPREHEN METABOLIC PANEL CPT-4: 70351 12/11/2016 COMPLETE CBC W/AUTO DIFF WBC CPT-4: 45036 12/11/2016 LIPID PANEL CPT-4: 27512 12/11/2016 A1C HPLC CPT-4: 67648 12/11/2016 URINALYSIS NONAUTO W/O SCOPE CPT-4: 23311 02/07/2016 ROUTINE VENIPUNCTURE CPT-4: 84761 05/27/2015 ASSAY OF FREE THYROXINE CPT-4: 84855 05/27/2015 ASSAY THYROID STIM HORMONE CPT-4: 15038 05/27/2015 COMPREHEN METABOLIC PANEL CPT-4: 10314 05/27/2015 COMPLETE CBC W/AUTO DIFF WBC CPT-4: 15264 05/27/2015 LIPID PANEL CPT-4: 57156 05/27/2015 VITAMIN B-12 CPT-4: 61461 05/27/2015 A1C HPLC CPT-4: 36677 05/27/2015 PNEUMOCOCCAL VACC 13 LEN IM CPT-4: 27808 05/26/2015 ADMIN PNEUMOCOCCAL VACCINE CPT-4: G0009 05/26/2015 CUR TOBACCO NON-USER CPT-4: G8457 05/26/2015 OCCULT BLOOD FECES CPT-4: 72337 02/19/2015 OCCULT BLOOD FECES CPT-4: 33445 01/20/2015 ROUTINE VENIPUNCTURE CPT-4: 31594 12/15/2014 ASSAY OF IRON CPT-4: 48622 12/15/2014 COMPLETE CBC W/AUTO DIFF WBC CPT-4: 99958 12/15/2014 CERUM REMOVAL CPT-4: 78122 11/30/2014 PRESCRIP TRANSMIT VIA ERX SY CPT-4: G8553 11/30/2014 ROUTINE VENIPUNCTURE CPT-4: 39045 11/26/2014 COMPREHEN METABOLIC PANEL CPT-4: 08999 11/26/2014 LIPID PANEL CPT-4: 18861 11/26/2014 ROUTINE VENIPUNCTURE CPT-4: 56252 08/14/2014 ASSAY OF FREE THYROXINE CPT-4: 51690 08/14/2014 ASSAY THYROID STIM HORMONE CPT-4: 92797 08/14/2014 COMPREHEN METABOLIC PANEL CPT-4: 52640 08/14/2014 COMPLETE CBC W/AUTO DIFF WBC CPT-4: 68936 08/14/2014 LIPID PANEL CPT-4: 68322 08/14/2014 PRESCRIP TRANSMIT VIA ERX SY CPT-4: G8553 07/23/2014 PRESCRIP TRANSMIT VIA ERX SY CPT-4: G8553 03/09/2014 PRESCRIP TRANSMIT VIA ERX SY CPT-4: G8553 02/05/2014 ROUTINE VENIPUNCTURE CPT-4: 56790 02/04/2014 ASSAY OF FREE THYROXINE CPT-4: 55970 02/04/2014 ASSAY THYROID STIM HORMONE CPT-4: 75736 02/04/2014 COMPREHEN METABOLIC PANEL CPT-4: 29014 02/04/2014 COMPLETE CBC W/AUTO DIFF WBC CPT-4: 43621 02/04/2014 LIPID PANEL CPT-4: 49621 02/04/2014 DRAIN/INJECT JOINT/BURSA CPT-4: 50952 04/07/2013 METHYLPREDNISOLONE 40 MG INJ CPT-4: J1030 04/07/2013 TRIAMCINOLONE ACET INJ NOS CPT-4: J3301 04/07/2013 PRESCRIP TRANSMIT VIA ERX SY CPT-4: G8553 04/07/2013 DRAIN/INJECT JOINT/BURSA CPT-4: 74744 10/09/2012 METHYLPREDNISOLONE 40 MG INJ CPT-4: J1030 10/09/2012 TRIAMCINOLONE ACET INJ NOS CPT-4: J3301 10/09/2012 PRESCRIP TRANSMIT VIA ERX SY CPT-4: G8553 03/28/2012 ROUTINE VENIPUNCTURE CPT-4: 86651 03/18/2012 ASSAY OF FREE THYROXINE CPT-4: 45010 03/18/2012 ASSAY THYROID STIM HORMONE CPT-4: 07289 03/18/2012 COMPREHEN METABOLIC PANEL CPT-4: 87965 03/18/2012 COMPLETE CBC W/AUTO DIFF WBC CPT-4: 81892 03/18/2012 LIPID PANEL CPT-4: 11125 03/18/2012 CERUM REMOVAL CPT-4: 35942 2012 OCCULT BLOOD FECES CPT-4: 64131 09/27/2011 CA SCREEN;PELVIC/BREAST EXAM CPT-4: G0101 09/27/2011 OBTAINING SCREEN PAP SMEAR CPT-4: Q0091 09/27/2011 CUR TOBACCO NON-USER CPT-4: G8457 09/13/2011 PRESCRIP TRANSMIT VIA ERX SY CPT-4: G8553 09/13/2011 PRESCRIP TRANSMIT VIA ERX SY CPT-4: G8553 08/07/2011 ROUTINE VENIPUNCTURE CPT-4: 82841 07/13/2011 ASSAY OF FREE THYROXINE CPT-4: 46069 07/13/2011 ASSAY THYROID STIM HORMONE CPT-4: 77392 07/13/2011 COMPREHEN METABOLIC PANEL CPT-4: 68200 07/13/2011 COMPLETE CBC W/AUTO DIFF WBC CPT-4: 47200 07/13/2011 LIPID PANEL CPT-4: 03478 07/13/2011 ROUTINE VENIPUNCTURE CPT-4: 04240 03/13/2011 COMPREHEN METABOLIC PANEL CPT-4: 35959 03/13/2011 LIPID PANEL CPT-4: 26107 03/13/2011 ASSAY THYROID STIM HORMONE CPT-4: 10340 03/13/2011 ASSAY OF FREE THYROXINE CPT-4: 39001 03/13/2011 PRESCRIP TRANSMIT VIA ERX SY CPT-4: G8553 01/04/2011 ROUTINE VENIPUNCTURE CPT-4: 08635 12/16/2010 LIPID PANEL CPT-4: 25176 12/16/2010 COMPLETE CBC W/AUTO DIFF WBC CPT-4: 57119 12/16/2010 COMPREHEN METABOLIC PANEL CPT-4: 99584 12/16/2010 ASSAY OF FREE THYROXINE CPT-4: 37888 12/16/2010 ASSAY THYROID STIM HORMONE CPT-4: 27665 12/16/2010 INJ TRIGGER POINT 1/2 MUSCL CPT-4: 33319 02/14/2010 TRIAMCINOLONE ACET INJ NOS CPT-4: J3301 02/14/2010 METHYLPREDNISOLONE 40 MG INJ CPT-4: J1030 02/14/2010 THER/PROPH/DIAG INJ SC/IM CPT-4: 77065 02/07/2010 KETOROLAC TROMETHAMINE INJ CPT-4: J1885 02/07/2010 ROUTINE VENIPUNCTURE CPT-4: 04924 12/22/2009 Vital Signs Date Vital 05/22/2022 Blood Pressure 1: 126/82 Code: 8480-6 BMI: 25.5 Code: 40496-0 Heart Rate 1: 104 bpm Height: 5'10" Code: 8302-2 Respiratory Rate: 20 bpm SpO2: 96% Temperature: 36.8 (C) / 98.2 (F) Weight: 178 lbs Code: 08300-8 02/27/2022 Blood Pressure 1: 142/82 Code: 8480-6 BMI: 25.5 Code: 13341-6 Heart Rate 1: 112 bpm Height: 5'10" Code: 8302-2 Respiratory Rate: 20 bpm SpO2: 96% Temperature: 36.8 (C) / 98.3 (F) Weight: 178 lbs Code: 96764-6 11/23/2021 Blood Pressure 1: 136/82 Code: 8480-6 BMI: 25.7 Code: 38181-0 Heart Rate 1: 72 bpm Height: 5'10" Code: 8302-2 Respiratory Rate: 20 bpm SpO2: 98% Temperature: 36.6 (C) / 97.9 (F) Weight: 179 lbs Code: 34573-6 10/12/2021 Blood Pressure 1: 128/92 Code: 8480-6 BMI: 25.5 Code: 99346-8 Heart Rate 1: 68 bpm Height: 5'10" Code: 8302-2 Respiratory Rate: 20 bpm SpO2: 98% Temperature: 36.7 (C) / 98.1 (F) Weight: 178 lbs Code: 45174-8 08/09/2021 Blood Pressure 1: 127/80 Code: 8480-6 Heart Rate 1: 69 bpm Respiratory Rate: 15 bpm SpO2: 98% Temperature: 36.7 (C) / 98.0 (F) We ight: 171 lbs Code: 79059-5 07/28/2021 Blood Pressure 1: 132/78 Code: 8480-6 Heart Rate 1: 76 bpm Respiratory Rate: 20 bpm SpO2: 96% Temperature: 36.8 (C) / 98.2 (F) We ight: 174 lbs Code: 04124-3 05/12/2021 Blood Pressure 1: 142/80 Code: 8480-6 Heart Rate 1: 76 bpm Respiratory Rate: 20 bpm SpO2: 96% Temperature: 36.8 (C) / 98.2 (F) We ight: 173 lbs Code: 89553-6 03/08/2021 Blood Pressure 1: 124/80 Code: 8480-6 Heart Rate 1: 88 bpm Respiratory Rate: 20 bpm SpO2: 98% Temperature: 36.8 (C) / 98.3 (F) We ight: 175 lbs Code: 67706-2 02/03/2021 Blood Pressure 1: 144/84 Code: 8480-6 Heart Rate 1: 68 bpm Respiratory Rate: 20 bpm SpO2: 97% Temperature: 36.7 (C) / 98.1 (F) We ight: 182 lbs Code: 81088-8 01/04/2021 Blood Pressure 1: 152/86 Code: 8480-6 Heart Rate 1: 72 bpm Respiratory Rate: 20 bpm SpO2: 97% Temperature: 36.6 (C) / 97.8 (F) We ight: 182 lbs Code: 13303-2 10/05/2020 Blood Pressure 1: 124/66 Code: 8480-6 He art Rate 1: 65 bpm 09/20/2020 Blood Pressure 1: 134/76 Code: 8480-6 Heart Rate 1: 60 bpm Respiratory Rate: 20 bpm SpO2: 97% Temperature: 36.1 (C) / 97.0 (F) We ight: 187 lbs Code: 37181-2 05/28/2020 Temperature: 36.8 (C) / 98.3 (F) 05/19/2020 Blood Pressure 1: 128/78 Code: 8480-6 Heart Rate 1: 50 bpm Respiratory Rate: 20 bpm SpO2: 98% Temperature: 36.5 (C) / 97.7 (F) 05/11/2020 Blood Pressure 1: 126/80 Code: 8480-6 BMI: 25.4 Code: 24056-7 Heart Rate 1: 60 bpm Height: 5'10" Code: 8302-2 Respiratory Rate: 20 bpm Temperat ure: 36.6 (C) / 97.8 (F) Weight: 177 lbs Code: 93931-6 05/05/2020 Blood Pressure 1: 122/78 Code: 8480-6 [...] 1: 104/66 Code: 8480-6 BMI: 25.4 Code: 80925-4 Heart Rate 1: 56 bpm Height: 5'10" Code: 8302-2 Respiratory Rate: 20 bpm SpO2: 97% Temperature: 36.6 (C) / 97.8 (F) Weight: 177 lbs Code: 92998-8 10/29/2019 Blood Pressure 1: 114/62 Code: 8480-6 Heart Rate 1: 68 bpm Respiratory Rate: 20 bpm SpO2: 99% Temperature: 36.8 (C) / 98.2 (F) 10/20/2019 Blood Pressure 1: 119/74 Code: 8480-6 Heart Rate 1: 57 bpm Respiratory Rate: 16 bpm SpO2: 99% Temperature: 36.9 (C) / 98.4 (F) We ight: 176 lbs Code: 59174-5 07/07/2019 Blood Pressure 1: 126/74 Code: 8480-6 Heart Rate 1: 72 bpm Respiratory Rate: 16 bpm SpO2: 95% Temperature: 36.8 (C) / 98.2 (F) We ight: 179 lbs Code: 61172-9 05/01/2019 Blood Pressure 1: 126/76 Code: 8480-6 Heart Rate 1: 60 bpm Respiratory Rate: 20 bpm SpO2: 97% Temperature: 36.8 (C) / 98.2 (F) 04/15/2019 Blood Pressure 1: 154/94 Code: 8480-6 BMI: 26.0 Code: 10798-2 Heart Rate 1: 60 bpm Height: 5'10" Code: 8302-2 Respiratory Rate: 18 bpm SpO2: 97% Temperature: 36.6 (C) / 97.9 (F) Weight: 181 lbs Code: 98275-2 11/26/2018 Blood Pressure 1: 142/80 Code: 8480-6 BMI: 26.3 Code: 67345-6 Heart Rate 1: 56 bpm Height: 5'10" Code: 8302-2 Respiratory Rate: 20 bpm SpO2: 97% Temperature: 36.9 (C) / 98.4 (F) Weight: 183 lbs Code: 62934-3 08/08/2018 Blood Pressure 1: 126/68 Code: 8480-6 Heart Rate 1: 76 bpm Height: 5'10" Code: 8302-2 Respiratory Rate: 20 bpm SpO2: 97% Temperature: 36 .7 (C) / 98.0 (F) Weight: Code: 23902-9 06/25/2018 Blood Pressure 1: 112/70 Code: 8480-6 BMI: 25.8 Code: 66458-7 Heart Rate 1: 64 bpm Height: 5'10" Code: 8302-2 Respiratory Rate: 20 bpm SpO2: 95% Temperature: 36.9 (C) / 98.4 (F) Weight: 180 lbs Code: 51603-6 05/20/2018 Blood Pressure 1: 132/100 Code: 8480-6 H eart Rate 1: 76 bpm 05/10/2018 Blood Pressure 1: 144/86 Code: 8480-6 Heart Rate 1: 60 bpm Respiratory Rate: 20 bpm SpO2: 97% Temperature: 36.9 (C) / 98.4 (F) We ight: Code: 88118-9 05/03/2018 Blood Pressure 1: 126/92 Code: 8480-6 Bl ood Pressure 2: 147/79 Code: 8480-6 Heart Rate 1: 64 bpm Height: 5'10" Code: 8302-2 Respiratory Rate : 22 bpm SpO2: 98% Temperature: 36.3 (C) / 97.3 (F) Weight: Code: 02511- 7 04/22/2018 Blood Pressure 1: 140/82 Code: 8480-6 BMI: 26.3 Code: 36524-1 Heart Rate 1: 60 bpm Height: 5'10" Code: 8302-2 Respiratory Rate: 20 bpm SpO2: 95% Temperature: 36.8 (C) / 98.2 (F) Weight: 183 lbs Code: 69588-3 03/05/2018 Blood Pressure 1: 122/64 Code: 8480-6 BMI: 25.7 Code: 83696-9 Heart Rate 1: 82 bpm Height: 5'10" Code: 8302-2 Respiratory Rate: 22 bpm SpO2: 96% Temperature: 36.4 (C) / 97.6 (F) Weight: 179 lbs Code: 80889-5 02/19/2018 Blood Pressure 1: 120/84 Code: 8480-6 Heart Rate 1: 68 bpm SpO2: 96% Temperature: 36.2 (C) / 97.2 (F) Weight: Code: 93892-2 02/13/2018 Blood Pressure 1: 138/90 Cod e: 8480-6 10/18/2017 Blood Pressure 1: 122/78 Code: 8480-6 BMI: 26.5 Code: 03447-9 Heart Rate 1: 72 bpm Height: 5'10" Code: 8302-2 Respiratory Rate: 20 bpm Temperat ure: 36.7 (C) / 98.0 (F) Weight: 185 lbs Code: 88411-5 07/24/2017 Blood Pressure 1: 118/68 Code: 8480-6 Heart Rate 1: 82 bpm Height: 5'10" Code: 8302-2 Respiratory Rate: 20 bpm SpO2: 92% Temperature: 36 .4 (C) / 97.6 (F) Weight: Code: 85977-0 06/14/2017 Blood Pressure 1: 156/98 Code: 8480-6 Heart Rate 1: 84 bpm Height: 5'10" Code: 8302-2 Respiratory Rate: 20 bpm SpO2: 96% Temperature: 36 .9 (C) / 98.5 (F) Weight: Code: 03041-0 06/01/2017 Blood Pressure 1: 122/82 Code: 8480-6 Heart Rate 1: 68 bpm Height: 5'10" Code: 8302-2 Respiratory Rate: 20 bpm Temperature: 36.8 (C) / 98.2 (F) 03/30/2017 Blood Pressure 1: 124/78 Code: 8480-6 Heart Rate 1: 88 bpm Height: 5'10" Code: 8302-2 Respiratory Rate: 20 bpm SpO2: 96% Temperature: 36 .9 (C) / 98.4 (F) Weight: Code: 84519-8 01/17/2017 Blood Pressure 1: 126/74 Code: 8480-6 Heart Rate 1: 72 bpm Height: 5'10" Code: 8302-2 Respiratory Rate: 20 bpm SpO2: 96% Temperature: 37 .0 (C) / 98.6 (F) Weight: Code: 42035-2 12/18/2016 Blood Pressure 1: 128/86 Code: 8480-6 BMI: 24.7 Code: 37195-6 Heart Rate 1: 76 bpm Height: 5'10" Code: 8302-2 Respiratory Rate: 20 bpm SpO2: 96% Temperature: 36.8 (C) / 98.3 (F) Weight: 172 lbs Code: 62989-5 11/02/2016 Blood Pressure 1: 128/80 Code: 8480-6 BMI: 24.7 Code: 92897-9 Heart Rate 1: 72 bpm Height: 5'10" Code: 8302-2 Respiratory Rate: 20 bpm SpO2: 94% Temperature: 36.9 (C) / 98.4 (F) Weight: 172 lbs Code: 60185-1 10/24/2016 Blood Pressure 1: 120/78 Code: 8480-6 BMI: 24.7 Code: 28789-5 Heart Rate 1: 88 bpm Height: 5'10" Code: 8302-2 Respiratory Rate: 18 bpm SpO2: 96% Temperature: 36.5 (C) / 97.7 (F) Weight: 172 lbs Code: 18796-6 02/07/2016 Heart Rate 1: 76 bpm Respiratory Rate: 22 bpm SpO2: 96 % Temperature: 36.4 (C) / 97.6 (F) Weight: Code: 44183-9 05/26/2015 Blood Pressure 1: 124/70 Code: 8480-6 BMI: 25.1 Code: 29615-7 Heart Rate 1: 84 bpm Height: 5'10" Code: 8302-2 Respiratory Rate: 20 bpm Temperat ure: 36.7 (C) / 98.1 (F) Weight: 175 lbs Code: 17542-3 11/30/2014 Blood Pressure 1: 142/94 Code: 8480-6 BMI: 25.1 Code: 40962-4 Heart Rate 1: 80 bpm Height: 5'10" Code: 8302-2 Respiratory Rate: 20 bpm Temperat ure: 36.9 (C) / 98.5 (F) Weight: 175 lbs Code: 72325-7 07/23/2014 Blood Pressure 1: 138/86 Code: 8480-6 BMI: 25.0 Code: 16458-1 Heart Rate 1: 80 bpm Height: 5'10" Code: 8302-2 Respiratory Rate: 20 bpm Temperat ure: 36.4 (C) / 97.6 (F) Weight: 174 lbs Code: 13327-6 03/09/2014 Blood Pressure 1: 122/78 Code: 8480-6 BMI: 25.0 Code: 67724-4 Heart Rate 1: 78 bpm Height: 5'10" Code: 8302-2 Respiratory Rate: 24 bpm Temperat ure: 36.4 (C) / 97.6 (F) Weight: 174 lbs Code: 66152-8 02/05/2014 Blood Pressure 1: 132/80 Code: 8480-6 BMI: 25.0 Code: 29359-0 Heart Rate 1: 84 bpm Height: 5'10" Code: 8302-2 Respiratory Rate: 20 bpm Temperat ure: 36.6 (C) / 97.9 (F) Weight: 174 lbs Code: 85042-8 05/12/2013 Blood Pressure 1: 138/94 Code: 8480-6 BMI: 25.1 Code: 68687-2 Heart Rate 1: 92 bpm Height: 5'10" Code: 8302-2 Respiratory Rate: 20 bpm Temperat ure: 36.7 (C) / 98.1 (F) Weight: 175 lbs Code: 16588-3 04/07/2013 Blood Pressure 1: 136/72 Code: 8480-6 BMI: 25.1 Code: 33715-9 Heart Rate 1: 76 bpm Height: 5'10" Code: 8302-2 Respiratory Rate: 20 bpm Temperat ure: 36.7 (C) / 98.0 (F) Weight: 175 lbs Code: 24029-8 03/31/2013 Blood Pressure 1: 132/94 Code: 8480-6 BMI: 25.1 Code: 51638-2 Heart Rate 1: 76 bpm Height: 5'10" Code: 8302-2 Respiratory Rate: 20 bpm Temperat ure: 36.7 (C) / 98.0 (F) Weight: 175 lbs Code: 69609-1 10/09/2012 Blood Pressure 1: 132/80 Code: 8480-6 BMI: 24.8 Code: 90430-6 Heart Rate 1: 88 bpm Height: 5'10" Code: 8302-2 Temperature: 36.8 (C) / 98.3 (F) Weight: 173 lbs Code: 81100-7 03/28/2012 Blood Pressure 1: 126/82 Code: 8480-6 BMI: 24.7 Code: 96378-9 Heart Rate 1: 72 bpm Height: 5'10" Code: 8302-2 Respiratory Rate: 20 bpm Temperat ure: 36.6 (C) / 97.8 (F) Weight: 172 lbs Code: 47845-1 2012 Blood Pressure 1: 130/72 Code: 8480-6 Heart Rate 1: 80 bpm Height: Code: 8302-2 Temperature: 36.5 (C) / 97.7 (F) Weight: Code: 49577- 7 09/27/2011 Blood Pressure 1: 116/78 Code: 8480-6 BMI: 24.4 Code: 90015-8 Heart Rate 1: 76 bpm Height: 5'10" Code: 8302-2 Respiratory Rate: 20 bpm Temperat ure: 36.9 (C) / 98.4 (F) Weight: 170 lbs Code: 82654-9 09/13/2011 Blood Pressure 1: 124/82 Code: 8480-6 BMI: 24.4 Code: 28594-3 Heart Rate 1: 72 bpm Height: 5'10" Code: 8302-2 Respiratory Rate: 20 bpm Temperat ure: 36.4 (C) / 97.6 (F) Weight: 170 lbs Code: 64158-4 08/07/2011 Blood Pressure 1: 110/74 Code: 8480-6 BMI: 23.2 Code: 85324-8 Heart Rate 1: 60 bpm Height: 5'11" Code: 8302-2 Temperature: 36.4 (C) / 97.5 (F) Weight: 166 lbs Code: 66330-0 02/06/2011 Blood Pressure 1: 96/58 Code : 8480-6 01/20/2011 Blood Pressure 1: 112/78 Cod e: 8480-6 01/12/2011 Blood Pressure 1: 110/48 Code: 8480-6 He art Rate 1: 84 bpm 01/04/2011 Blood Pressure 1: 126/80 Code: 8480-6 Heart Rate 1: 76 bpm Temperature: 36.9 (C) / 98.4 (F) Weight: 168 lbs Code: 97342-9 02/14/2010 Blood Pressure 1: 134/82 Code: 8480-6 Heart Rate 1: 88 bpm Temperature: 36.6 (C) / 97.9 (F) 02/07/2010 Blood Pressure 1: 130/80 Code: 8480-6 BMI: 23.4 Code: 47754-2 Heart Rate 1: 84 bpm Height: 5'10" Code: 8302-2 Temperature: 36.4 (C) / 97.6 (F) Weight: 163 lbs Code: 07315-1 Functional Status No Functional Status data Reason For Visit Reason For Visit Effective Dates Notes follow up 05/22/2022 high blood pressure 05/22/2022 [...] pain 05/12/2013 On the right side, t della 3 weeks ago, pain and swelling follow [...] Encounter Performer Location Location Address Codes Date ([id number]) OFFICE/OUTPATIENT VISIT EST Diagnosis: Chronic atrial fibrillation[ICD10: I48.20] Diagnosis: Essential hypertension[ICD10: I10] Diagnosis: Skin cancer of arm[ICD10: C44.601] Diagnosis: Mild chronic obstructive pulmonary disease[ICD10: J44.9] Yvette DAVID DO [address] [address] CPT-4: 50727 05/22/2022 ([id number]) NURSE/OUTPATIENT VISIT EST Diagnosis: Atrial fibrillation and flutter[ICD10: I48.91] Diagnosis: Hypothyroidism[ICD10: E03.9] Diagnosis: Mixed hyperlipidemia[ICD10: E78.2] Diagnosis: Anemia, unspecified[ICD10: D64.9] Diagnosis: Essential (primary) hypertension[ICD10: I10] Diagnosis: Hyperglycemia, unspecified[ICD10: R73.9] Yvette DAVID [address] [address] CPT- 4: 81297 02/28/2022 ([id number]) OFFICE/OUTPATIENT VISIT EST Diagnosis: Atypical nevus of right forearm[ICD10: D22.61] Diagnosis: Unspecified atrial flutter[ICD10: I48.92] Diagnosis: Atrial fibrillation and flutter[ICD10: I48.91] Yvette DAVID [address] [address] CPT- 4: 39093 02/27/2022 ([id number]) OFFICE/OUTPATIENT VISIT EST Diagnosis: Anxiety[ICD10: F41.9] Yvette DAVID [address] [address] CPT-4: 35422 11/23/2021 ([id number]) OFFICE/OUTPATIENT VISIT EST Diagnosis: Anxiety[ICD10: F41.9] Diagnosis: Stress reaction[ICD10: F43.0] Yvette DAVID [address] [address] CPT-4: 99996 10/12/2021 ([id number]) OFFICE/OUTPATIENT VISIT EST Diagnosis: Contact with and (suspected) exposure to covid-19[ICD10: Z20.822] Diagnosis: Nasopharyngitis[ICD10: J00] Diagnosis: Acute foreign body of left ear canal, initial encounter[ICD10: T16.2XXA] Diagnosis: Acute foreign body of right ear canal[ICD10: T16.1XXA] Martina DAVID DO [address] [address] CPT-4: 57657 08/09/2021 ([id number]) OFFICE/OUTPATIENT VISIT EST Diagnosis: Essential (primary) hypertension[ICD10: I10] Diagnosis: Hypothyroidism[ICD10: E03.9] Diagnosis: Paroxysmal atrial fibrillation[ICD10: I48.0] Diagnosis: Hyperglycemia, unspecified[ICD10: R73.9] Yvette DAVID DO [address] [address] CPT- 4: 00960 07/28/2021 ([id number]) NURSE/OUTPATIENT VISIT EST Diagnosis: Mixed hyperlipidemia[ICD10: E78.2] Diagnosis: Anemia, unspecified[ICD10: D64.9] Diagnosis: Essential (primary) hypertension[ICD10: I10] Diagnosis: Hypothyroidism, unspecified[ICD10: E03.9] Diagnosis: Hyperglycemia, unspecified[ICD10: R73.9] Yvette DAVID [address] [address] CPT- 4: 22119 07/20/2021 ([id number]) OFFICE/OUTPATIENT VISIT EST Diagnosis: Grieving[ICD10: F43.21] Diagnosis: Inflamed seborrheic keratosis[ICD10: L82.0] Yvette DAVID DO [address] [address] CPT- 4: 98148 05/12/2021 ([id number]) OFFICE/OUTPATIENT VISIT EST Diagnosis: Rhus dermatitis[ICD10: L25.5] Yvette DAVID [address] [address] CPT-4: 56518 03/08/2021 ([id number]) OFFICE/OUTPATIENT VISIT EST Diagnosis: Essential hypertension[ICD10: I10] Diagnosis: Chronic atrial fibrillation[ICD10: I48.20] Diagnosis: Mixed hyperlipidemia[ICD10: E78.2] Diagnosis: Hyperglycemia, unspecified[ICD10: R73.9] Diagnosis: Depression[ICD10: F32.9] Yvette CHAIREZ DO [address] [address] CPT-4: 99216 02/03/2021 ([id number]) NURSE/OUTPATIENT VISIT EST Diagnosis: Hyperglycemia, unspecified[ICD10: R73.9] Diagnosis: Mixed hyperlipidemia[ICD10: E78.2] Diagnosis: Essential (primary) hypertension[ICD10: I10] Diagnosis: Hypothyroidism, unspecified[ICD10: E03.9] Yvette DAVID DO [address] [address] CPT- 4: 73891 01/31/2021 ([id number]) OFFICE/OUTPATIENT VISIT EST Diagnosis: Vertigo[ICD10: R42] Diagnosis: Chronic atrial fibrillation[ICD10: I48.20] Diagnosis: Cerumen impaction[ICD10: H61.20] Diagnosis: Depression[ICD10: F32.9] Yvette CHAIREZ DO [address] [address] CPT-4: 24099 01/04/2021 ([id number]) NURSE/OUTPATIENT VISIT EST Diagnosis: Essential hypertension[ICD10: I10] Yvette SIMMS NAHOMY Michael DAVID [address] [address] CPT-4: 99439 10/05/2020 ([id number]) OFFICE/OUTPATIENT VISIT EST Diagnosis: Chronic atrial fibrillation[ICD10: I48.20] Diagnosis: Dizziness[ICD10: R42] Yvette DAVID DO [employer] [address] [place] [address] CPT-4: 27396 09/20/2020 ([id number]) NURSE/OUTPATIENT VISIT EST Diagnosis: Dysplastic nevus of right lower extremity[ICD10: D23.71] Yvette Kunchris STUART CristiGarrett JOANN BORJA [employer] [address] [place] [address] CPT-4: 85592 05/28/2020 ([id number]) NURSE/OUTPATIENT VISIT EST Diagnosis: Essential (primary) hypertension[ICD10: I10] Diagnosis: Type 2 diabetes mellitus with hyperglycemia[ICD10: E11.65] Diagnosis: Anemia, unspecified[ICD10: D64.9] Diagnosis: Hypothyroidism, unspecified[ICD10: E03.9] Yvette Kunchris STUART CristiGarrett JOANN BORJA [employer] [address] [place] [address] CPT- 4: 50629 05/05/2020 ([id number]) OFFICE/OUTPATIENT VISIT EST Diagnosis: 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] Diagnosis: Paroxysmal atrial fibrillation[ICD10: I48.0] Yvette STUART CristiGarrett JOANN BORJA [address] [address] CPT- 4: 89373 02/11/2020 ([id number]) OFFICE/OUTPATIENT VISIT EST Diagnosis: Dermatitis[ICD10: L30.9] Diagnosis: 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] Diagnosis: Chronic pruritus[ICD10: L29.9] Yvette Kunchris STUART Cristi Garrett JOANN BORJA [employer] [address] [place] [address] CPT-4: 90497 01/28/2020 ([id number]) OFFICE/OUTPATIENT VISIT EST Diagnosis: Diarrhea, unspecified[ICD10: R19.7] Diagnosis: Dizziness[ICD10: R42] Diagnosis: Generalized pruritus[ICD10: L29.9] Yvette COREA CristiGarrett KUNNDER DO [employer] [address] [place] [address] CPT-4: 17235 01/05/2020 ([id number]) NURSE/OUTPATIENT VISIT EST Diagnosis: Renal insufficiency[ICD10: N28.9] Yvette Shahid CristiGarrett [address] [address] CPT-4: 15071 12/05/2019 ([id number]) NURSE/OUTPATIENT VISIT EST Diagnosis: Renal insufficiency[ICD10: N28.9] Diagnosis: Dehydration[ICD10: E86.0] Yvettemarielle Taylorvera SULLIVAN [address] [address] CPT-4: 49072 11/05/2019 ([id number]) OFFICE/OUTPATIENT VISIT EST Diagnosis: Chronic atrial fibrillation[ICD10: I48.20] Diagnosis: Renal insufficiency[ICD10: N28.9] Diagnosis: Dizziness and giddiness[ICD10: R42] Yvette David SANTANADEMIZaria TAYLOR[address] [address] CPT-4: 91573 10/29/2019 ([id number]) NURSE/OUTPATIENT VISIT EST Diagnosis: Hematuria, unspecified[ICD10: R31.9] Yvette David JESS TAYLOR[address] [address] CPT-4: 26277 10/23/2019 ([id number]) NURSE/OUTPATIENT VISIT EST Diagnosis: Encounter for general adult medical examination without abnormal findings[ICD10: Z00.00] Diagnosis: Essential (primary) hypertension[ICD10: I10] Diagnosis: Hypothyroidism, unspecified[ICD10: E03.9] Diagnosis: Mixed hyperlipidemia[ICD10: E78.2] Yvette COREA Michael DAVID [address] [address] CPT-4: 87315 10/21/2019 ([id number]) OFFICE/OUTPATIENT VISIT EST Diagnosis: Cerumen impaction[ICD10: H61.20] Diagnosis: Dizziness[ICD10: R42] Diagnosis: Gastritis[ICD10: K29.70] Diagnosis: Dehydration[ICD10: E86.0] Natalee Henrydi YVETTE SULLIVAN [address] [address] CPT-4: 50856 10/20/2019 ([id number]) OFFICE/OUTPATIENT VISIT EST Diagnosis: Paroxysmal atrial fibrillation[ICD10: I48.0] Diagnosis: Essential hypertension[ICD10: I10] Yvette DAVID DO [address] [address] CPT-4: 99478 07/07/2019 ([id number]) OFFICE/OUTPATIENT VISIT EST Diagnosis: Essential (primary) hypertension[ICD10: I10] Yvette DAVID DO [address] [address] CPT- 4: 58080 05/01/2019 ([id number]) OFFICE/OUTPATIENT VISIT EST Diagnosis: Essential (primary) hypertension[ICD10: I10] Diagnosis: Localized edema[ICD10: R60.0] Yvette DAVID DO [address] [address] CPT-4: 26970 04/15/2019 ([id number]) NURSE/OUTPATIENT VISIT EST Diagnosis: Essential (primary) hypertension[ICD10: I10] Diagnosis: Hypothyroidism, unspecified[ICD10: E03.9] Diagnosis: Mixed hyperlipidemia[ICD10: E78.2] Yvette DAVID DO [address] [address] CPT-4: 06065 04/04/2019 ([id number]) NURSE/OUTPATIENT VISIT EST Diagnosis: Essential (primary) hypertension[ICD10: I10] Diagnosis: Hyperglycemia, unspecified[ICD10: R73.9] Diagnosis: Hypothyroidism, unspecified[ICD10: E03.9] Diagnosis: Mixed hyperlipidemia[ICD10: E78.2] Yvette DAVID DO [address] [address] CPT-4: 83982 10/07/2018 ([id number]) OFFICE/OUTPATIENT VISIT EST Diagnosis: Essential (primary) hypertension[ICD10: I10] Diagnosis: Presence of right artificial knee joint[ICD10: Z96.651] Diagnosis: Unspecified hearing loss, left ear[ICD10: H91.92] Yvette DAVID [address] [address] CPT- 4: 75879 08/08/2018 OFFICE/OUTPATIENT VISIT EST Diagnosis: Impacted cerumen, bilateral[ICD10: H61.23] Diagnosis: Vertigo of central origin, bilateral[ICD10: H81.43] Diagnosis: Essential (primary) hypertension[ICD10: I10] Diagnosis: Paroxysmal atrial fibrillation[ICD10: I48.0] Diagnosis: Dizziness and giddiness[ICD10: R42] Diagnosis: Sudden idiopathic hearing loss, left ear[ICD10: H91.22] Yvette DAVID DO [address] [address] CPT-4: 02975 06/25/2018 ([id number]) OFFICE/OUTPATIENT VISIT EST Diagnosis: Essential (primary) hypertension[ICD10: I10] Diagnosis: Vertigo of central origin, bilateral[ICD10: H81.43] Yvette DAVID [address] [address] CPT-4: 58241 05/10/2018 ([id number]) OFFICE/OUTPATIENT VISIT EST Diagnosis: Allergic rhinitis due to pollen[ICD10: J30.1] Diagnosis: Dizziness and giddiness[ICD10: R42] Diagnosis: Vertigo of central origin, bilateral[ICD10: H81.43] Diagnosis: Essential (primary) hypertension[ICD10: I10] Yvette DAVID [address] [address] CPT- 4: 77127 05/03/2018 OFFICE/OUTPATIENT VISIT EST Diagnosis: Hypothyroidism, unspecified[ICD10: E03.9] Diagnosis: Mixed hyperlipidemia[ICD10: E78.2] Diagnosis: Essential (primary) hypertension[ICD10: I10] Diagnosis: Paroxysmal atrial fibrillation[ICD10: I48.0] Diagnosis: Obstructive sleep apnea (adult) (pediatric)[ICD10: G47.33] Diagnosis: Unilateral primary osteoarthritis, right knee[ICD10: M17.11] Yvette DAVID DO [address] [address] CPT-4: 78919 04/22/2018 ([id number]) OFFICE/OUTPATIENT VISIT EST Diagnosis: Zoster without complications[ICD10: B02.9] Natalee DAVID DO [address] [address] CPT- 4: 03888 03/05/2018 ([id number]) NURSE/OUTPATIENT VISIT EST Diagnosis: Hypothyroidism, unspecified[ICD10: E03.9] Diagnosis: Mixed hyperlipidemia[ICD10: E78.2] Diagnosis: Essential (primary) hypertension[ICD10: I10] Diagnosis: Paroxysmal atrial fibrillation[ICD10: I48.0] Yvette DAVID DO [address] [address] CPT- 4: 05088 02/13/2018 ([id number]) OFFICE/OUTPATIENT VISIT EST Diagnosis: Obstructive sleep apnea (adult) (pediatric)[ICD10: G47.33] Diagnosis: Essential (primary) hypertension[ICD10: I10] Diagnosis: Paroxysmal atrial fibrillation[ICD10: I48.0] Yvette DAVID DO [address] [address] CPT- 4: 82887 10/18/2017 ([id number]) OFFICE/OUTPATIENT VISIT EST Diagnosis: Hypothyroidism, unspecified[ICD10: E03.9] Diagnosis: Other vitamin B12 deficiency anemias[ICD10: D51.8] Diagnosis: Essential (primary) hypertension[ICD10: I10] Diagnosis: Mixed hyperlipidemia[ICD10: E78.2] Yvette DAVID [address] [address] CPT-4: 61084 10/15/2017 OFFICE/OUTPATIENT VISIT EST Diagnosis: Impacted cerumen, bilateral[ICD10: H61.23] Diagnosis: Acute sinusitis, unspecified[ICD10: J01.90] Natalee Isaac YVETTE S. [address] [address] CPT- 4: 28191 07/24/2017 ([id number]) OFFICE/OUTPATIENT VISIT EST Diagnosis: Obstructive sleep apnea (adult) (pediatric)[ICD10: G47.33] Diagnosis: Tachycardia, unspecified[ICD10: R00.0] Yvette Joann DAVID [address] [address] CPT-4: 88988 06/14/2017 ([id number]) OFFICE/OUTPATIENT VISIT EST Diagnosis: Zoster without complications[ICD10: B02.9] Demi Rocha YVETTE DAVID [address] [address] CPT- 4: 00450 06/01/2017 ([id number]) OFFICE/OUTPATIENT VISIT EST Diagnosis: Essential (primary) hypertension[ICD10: I10] Diagnosis: Tachycardia, unspecified[ICD10: R00.0] Diagnosis: Other vitamin B12 deficiency anemias[ICD10: D51.8] Yvette Kunchris YVETTE DAVID [address] [address] CPT- 4: 35031 03/30/2017 ([id number]) OFFICE/OUTPATIENT VISIT EST Diagnosis: Essential (primary) hypertension[ICD10: I10] Diagnosis: Other fatigue[ICD10: R53.83] Diagnosis: Other chest pain[ICD10: R07.89] Diagnosis: Snoring[ICD10: R06.83] Yvette Kunchris YVETTE CristiGarrett WARNER Vega [address] [address] CPT-4: 61896 01/17/2017 ([id number]) OFFICE/OUTPATIENT VISIT EST Diagnosis: Encounter for general adult medical examination without abnormal findings[ICD10: Z00.00] Diagnosis: Hypothyroidism, unspecified[ICD10: E03.9] Diagnosis: Essential (primary) hypertension[ICD10: I10] Diagnosis: Mixed hyperlipidemia[ICD10: E78.2] Diagnosis: Other correction (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[ICD10: Z79.899] Diagnosis: Hyperglycemia, unspecified[ICD10: R73.9] Yvette DAVID DO [address] [address] CPT- 4: 18839 12/11/2016 ([id number]) OFFICE/OUTPATIENT VISIT EST Diagnosis: URI, ACUTE[ICD10: J06.9] Diagnosis: Cough[ICD10: R05] Yvette DAVID DO [address] [address] CPT-4: 05812 11/02/19 17 ([id number]) OFFICE/OUTPATIENT VISIT EST Diagnosis: Acute upper respiratory infection, unspecified[ICD10: J06.9] Elidia DAVID [address] [address] CPT-4: 24468 10/24/2016 ([id number]) OFFICE/OUTPATIENT VISIT EST Diagnosis: Nausea[ICD10: R11.0] Diagnosis: Diarrhea, unspecified[ICD10: R19.7] Diagnosis: Dizziness and giddiness[ICD10: R42] Elidia DAVID [address] [address] CPT-4: 11244 02/07/2016 ([id number]) OFFICE/OUTPATIENT VISIT EST Diagnosis: HYPOTHYROIDISM[ICD9: 244.9] Diagnosis: HYPERLIPIDEMIA NEC/NOS[ICD9: 272.4] Diagnosis: ANEMIA NOS[ICD9: 285.9] Diagnosis: HYPERTENSION[ICD9: 401.9] Diagnosis: Neuropathy[ICD9: 355.9] Yvette VILLAVICENCIO [address] [address] CPT-4: 45847 05/27/2015 ([id number]) OFFICE/OUTPATIENT VISIT EST Diagnosis: Neuropathy[ICD9: 355.9] Diagnosis: Foot pain[ICD9: 729.5] Diagnosis: HYPOTHYROIDISM[ICD9: 244.9] Diagnosis: PNEUMOCOCCAL VACCINE[ICD10: Z23] Yvette DAVID DO [address] [address] CPT-4: 99389 05/26/2015 ([id number]) OFFICE/OUTPATIENT VISIT EST Diagnosis: Hematochezia[ICD9: 578.1] Yvette [facility] [address] [place] [address] CPT-4: 22677 02/19/2015 ([id number]) OFFICE/OUTPATIENT VISIT EST Diagnosis: Hematochezia[ICD9: 578.1] Yvette [facility] [address] [place] [address] CPT-4: 19522 01/20/2015 ([id number]) OFFICE/OUTPATIENT VISIT EST Diagnosis: Hematochezia[ICD9: 578.1] Yvette TRISTAN NDER DO [address] [address] CPT-4: 17462 12/15/2014 ([id number]) OFFICE/OUTPATIENT VISIT EST Diagnosis: TINEA PEDIS[ICD9: 110.4] Diagnosis: Ceruminosis[ICD9: 380.4] Earline VanWhitneymargarita LUNDY MIHAELA DO [address] [address] CPT-4: 68942 11/30/2014 ([id number]) OFFICE/OUTPATIENT VISIT EST Diagnosis: HYPERLIPIDEMIA NEC/NOS[ICD9: 272.4] Yvette TRISTANNDER DO [address] [address] CPT-4: 83162 11/26/2014 ([id number]) OFFICE/OUTPATIENT VISIT EST Diagnosis: HYPOTHYROIDISM[ICD9: 244.9] Diagnosis: HYPERLIPIDEMIA NEC/NOS[ICD9: 272.4] Diagnosis: ANEMIA NOS[ICD9: 285.9] Diagnosis: HYPERTENSION[ICD9: 401.9] Yvette [facility] [address] [place] [address] CPT-4: 53034 08/14/2014 ([id number]) OFFICE/OUTPATIENT VISIT EST Diagnosis: GERD[ICD9: 530.81] Diagnosis: COUGH[ICD10: R05] Yvette Tristancarlos eduardovera MERCADOYVETTE Michael TAYLORER DO [employer] [address] [place] [address] CPT-4: 26965 07/23/20 14 OFFICE/OUTPATIENT VISIT EST Diagnosis: Heel pain[ICD9: 729.5] Earline MERCAODLINE CristiGarrett KUNNDE Silvia DO [address] [address] CPT-4: 92216 03/09/2014 ([id number]) OFFICE/OUTPATIENT VISIT EST Diagnosis: HYPOTHYROIDISM[ICD9: 244.9] Diagnosis: HYPERLIPIDEMIA NEC/NOS[ICD9: 272.4] Diagnosis: Right medial knee pain[ICD9: 719.46] Yvette MENA CristiGarrett KUNNDER DO [address] [address] CPT-4: 27879 02/05/2014 ([id number]) OFFICE/OUTPATIENT VISIT EST Diagnosis: HYPOTHYROIDISM[ICD9: 244.9] Diagnosis: HYPERLIPIDEMIA NEC/NOS[ICD9: 272.4] Diagnosis: HYPERTENSION[ICD9: 401.9] Diagnosis: ANEMIA NOS[ICD9: 285.9] Diagnosis: MALAISE AND FATIGUE[ICD9: 780.79] Yvette Shahid SGarrett BRANDONER DO [employer] [address] [place] [address] CPT-4: 09367 02/04/2014 OFFICE/OUTPATIENT VISIT EST Diagnosis: Right medial knee pain[ICD9: 719.46] Diagnosis: Degeneration, intervertebral disc, lumbar[ICD9: 722.52] Diagnosis: Low back pain[ICD9: 724.2] Earline SmileyJayce STUART CristiGarrett LUISITO STEFAN DO [address] [address] CPT-4: 23810 05/12/2013 ([id number]) OFFICE/OUTPATIENT VISIT EST Diagnosis: Lumbar degenerative disc disease[ICD9: 722.52] Diagnosis: Bulging lumbar disc[ICD9: 722.10] Yvette Shahid SGarrett KUNNDER DO [employer] [address] [place] [address] CPT-4: 10415 04/07/2013 ([id number]) OFFICE/OUTPATIENT VISIT EST Diagnosis: PAIN, LOWER BACK[ICD9: 724.2] Diagnosis: SPASM OF MUSCLE[ICD9: 728.85] Diagnosis: Lumbar degenerative disc disease[ICD9: 722.52] Yvette Kunchris YVETTE CristiGarrett JOANN [address] [address] CPT- 4: 96010 03/31/2013 ([id number]) OFFICE/OUTPATIENT VISIT EST Diagnosis: Greater trochanteric bursitis[ICD9: 726.5] Diagnosis: DYSPEPSIA[ICD9: 536.8] Yvette Kunchris YVETTE CristiGarrett [facility] [address] [address] CPT-4: 11021 10/09/2012 OFFICE/OUTPATIENT VISIT EST Diagnosis: CYSTOCELE NOS[ICD9: 618.01] Diagnosis: GERD[ICD9: 530.81] Diagnosis: VAGINITIS[ICD9: 623.5] Yvette STUART CristiGarrett [facility] [address] [address] CPT-4: 14187 03/28/2012 ([id number]) OFFICE/OUTPATIENT VISIT EST Diagnosis: HYPOTHYROIDISM[ICD9: 244.9] Diagnosis: HYPERLIPIDEMIA NEC/NOS[ICD9: 272.4] Diagnosis: HYPERTENSION[ICD9: 401.9] Diagnosis: ANEMIA NOS[ICD9: 285.9] Yvette STUART CristiGarrett BRANDON VILLAVICENCIO [address] [address] CPT-4: 58040 03/18/2012 OFFICE/OUTPATIENT VISIT EST Diagnosis: CERUMEN IMPACTION[ICD9: 380.4] Diagnosis: OTALGIA[ICD9: 388.70] Reyna DAVID [address] [address] CPT-4: 10209 2012 OFFICE/OUTPATIENT VISIT EST Diagnosis: COUGH[ICD9: 786.2] Diagnosis: Cystocele[ICD9: 618.01] Diagnosis: VAGINITIS[ICD9: 623.5] Diagnosis: ROUTINE GYNE EXAM[ICD9: V72.31] Yvette DAVID DO [address] [address] CPT-4: 61263 09/27/2011 SPECIMEN HANDLING Diagnosis: [ICD9: ] Diagnosis: [ICD9: ] Diagnosis: [ICD9: ] Diagnosis: [ICD9: ] Yvette DAVID DO [address] [address] CPT-4: 59491 09/27/2011 OFFICE/OUTPATIENT VISIT EST Diagnosis: PHARYNGITIS, ACUTE[ICD9: 462] Diagnosis: URI, ACUTE[ICD9: 465.9] Yvette VILLAVICENCIO DO [address] [address] CPT-4: 18112 09/13/2011 OFFICE/OUTPATIENT VISIT EST Diagnosis: PHARYNGITIS, ACUTE[ICD9: 462] Diagnosis: COUGH[ICD9: 786.2] Yvette DAVID DO [address] [address] CPT-4: 32490 08/07/20 11 ([id number]) OFFICE/OUTPATIENT VISIT EST Yvette TRISTANNDER DO [address] [address] CPT-4: 12733 01/04/2011 ([id number]) OFFICE/OUTPATIENT VISIT, EST Yvette TRISTANNDER DO [address] [address] CPT-4: 02673 02/14/2010 ([id number]) OFFICE/OUTPATIENT VISIT, EST [facility] [address] [place] [address] CPT-4: 39633 02/07/2010 Plan of Care Planned Activity Notes Codes Status Date Visit Diagnosis Plan: Skin cancer of arm [...] J44.9 05/22/2022 Appointment: Yvette David WPtel: [phone] [phone] [place] FOLLOW UP 05/22/2022 Referral: Anuj Eng WPtel: #1 [id number] [place] Referral Appointment Confirmed 03/08/2022 Appointment: Yvette David WPtel: [phone] [phone] US LAB 02/28/2022 Visit Diagnosis Plan: Unspecified [...] : I48.91 02/27/2022 Appointment: Yvette David WPtel: [address] [place], [place] [phone] ACUTE ILLNESS 02/27/2022 Care Plan: Referral Order SNOMED-CT : 30 [id number] Pending 02/27/2022 Care Plan: Referral Order SNOMED-CT : 30 [id number] Pending 02/27/2022 Appointment: Yvette David WPtel: [address] [place], [place] [phone] CANCELED 12/06/2021 Visit Diagnosis Plan: Anxiety Discussion: Improving wi th effexor--wants to keep dose the same ICD-9 : 300.00 ICD-10 : F41.9 11/23/2021 Appointment: Yvette David WPtel: [address] [place], [place] [phone] FOLLOW UP 11/23/2021 Visit Diagnosis Plan: Anxiety Discussion: Restart effe xor XR at 37.5mg daily [employer]ucers Fwup 6 weeks No tremors noted today ICD-9 : 300.00 ICD-10 : F41.9 10/12/2021 Appointment: Yvette David WPtel: [address] [place], [place] [phone] ACUTE ILLNESS 10/12/2021 Visit Plan: Supportive care. [...] T16.2XXA 08/09/2021 Appointment: Mart[facility] Lopez [facility]el[facility] [address] [phone] [facility] 08/09/2021 Patient Education: Patient Medication [...] : R73.9 07/28/2021 Appointment: Yvette David WPtel: [address] [place], [place] [phone] FOLLOW UP 07/28/2021 Appointment: Yvette David WPtel: [address] [place], [place] [phone] US LAB 07/20/2021 Visit Diagnosis Plan: Grieving Discussion: Restart Eff exor XR 37.5mg po q AM ICD-9 : 309.0 ICD-10 : F43.21 05/12/2021 Visit Diagnosis Plan: Inflamed seborrheic keratosis Di scussion: Cryotherapy as above ICD-9 : 702.11 ICD-10 : L82.0 05/12/2021 Appointment: Yvette David WPtel: [address] [place] [phone] US FOLLOW UP 05/12/2021 Appointment: Yvette David WPtel: [address] [place] [phone] US assisted patient with opening her eye drops for cataract liane an (sera) CANCELED 03/22/2021 Visit Diagnosis Plan: Rhus dermatitis Discussion: Marielena log 40mg IM x1 Can continue TAC ICD-9 : 692.6 ICD-10 : L25.5 03/08/2021 Appointment: Yvette David WPtel: [address] [place], [place] [phone] US FOLLOW UP 03/08/2021 Visit Diagnosis Plan: [...] : I48.20 02/03/2021 Appointment: Yvette David WPtel: [address] [place], [place] [phone] US FOLLOW UP 02/03/2021 Appointment: Yvette David WPtel: [address] [place], [place] [phone] US LAB 01/31/2021 Visit Diagnosis Plan: Chronic [...] ICD-10 : H61.20 01/04/2021 Appointment: Yvette Davidtel: [address] [place], [place] [phone] ACUTE ILLNESS 01/04/2021 Appointment: Yvette David WPtel: [address] [place], [place] [phone] US BP CHECK 10/05/2020 Visit Diagnosis Plan: Chronic atrial fibrillation Disc ussion: Due to symptomatic bradycardia will decrease metoprolol ER to 25mg po BID Bring by BP and pulse readings in 2 weeks ICD-9 : 427.31 ICD-10 : I48.20 09/20/2020 Appointment: Yvette David WPtel: [address] [place], [place] [phone] ACUTE ILLNESS 09/20/2020 Appointment: Yvette David WPtel: [address] [place], [place] [phone] NURSE SERVICES 05/28/2020 Visit Diagnosis Plan: Dysplastic nevus of right lower extremity Discussion: Removal as above and sent to pathology Return in 10 days for suture removal ICD-9 : 216.7 ICD-10 : D23.71 05/19/2020 Appointment: Yvette David WPtel: [address] [place], [place] [phone] US FOLLOW UP 05/19/2020 Visit Diagnosis Plan: Diarrhea [...] Visit Diagnosis Plan: Encounter for gene [facility] adult medical examination without abnormal findings [...] I48.20 05/11/2020 Appointment: Yvette David WPtel: [address] [phone] US Annual Well Visit 05/11/2020 Appointment: Yvette David WPtel: [address] [phone] US LAB 05/05/2020 Visit Diagnosis Plan: Chronic pruritic rash in adult D iscussion: Improved with DC of aroldo Discussed all options including warfarin, pradaxa and [...] : I48.0 02/11/2020 Appointment: Yvette David WPtel: [address] [place], [place] [phone] FOLLOW UP 02/11/2020 Visit Diagnosis Plan: Dermatitis [...] : L29.8 01/28/2020 Appointment: Yvette David WPtel: [address] [place], [place] [phone] ACUTE ILLNESS 01/28/2020 Patient Education: hydroxyzine HCl- Optimize[employer] Coupon [id number] [email or web address]/samplemd/resources/getResource/61/[email or web address] Completed 01/28/2020 Visit Diagnosis Plan: Diarrhea, unspecified [...] : R42 01/05/2020 Appointment: Yvette David WPtel: [facility] [place] [phone] ACUTE ILLNESS 01/05/2020 Appointment: Yvette Davidtel: [address] [phone] US LAB 12/05/2019 Appointment: Yvette David [facility]Ptel: [address] [phone] [facility] 11/05/2019 Visit Diagnosis Plan: Dizziness [...] : N28.9 10/29/2019 Appointment: Yvette David WPtel: [address] [place] [phone] US FOLLOW UP 10/29/2019 Appointment: Yvette David WPtel: [address] [phone] US UA 10/23/2019 Appointment: Yvette David WPtel: [address] [phone] US LAB 10/21/2019 Visit Diagnosis Plan: Dizziness [...] : H61.20 10/20/2019 Appointment: Natalee Gray [address] [facility]66[facility] ACUTE ILLNESS 10/20/2019 Patient Education: meclizine- Opt[employer] Coupon [phone] [email or web address]://[email or web address]/QFPay/resources/getResource/61/[email or web address]-31gt-rc Completed 10/20/2019 Appointment: Yvette David WPtel: [facility] [place] [phone] US Canceled, Said patient was feeling lots [...] : I48.0 07/07/2019 Appointment: Yvette David WPtel: [address] [place], [place] [phone] FOLLOW UP 07/07/2019 Visit Diagnosis Plan: Essential (primary) hypertension Discussion: Increase HCTZ to 25mg daily Call in 1 week with BP readings ICD-9 : 401.9 ICD-10 : I10 05/01/2019 Appointment: Yvette David WPtel: [phone] US FOLLOW UP 05/01/2019 Visit Diagnosis Plan: Essential (primary) hypertension Discussion: Change metoprolol to 50mg po q AM and 100mg po q PM Add HCTZ 12.5mg po q AM Monitor home BP and pulse Recheck 2 weeks Start Cardiac Rehab or Wellness ICD-9 : 401.1 ICD-10 : I10 04/15/2019 Appointment: Yvette David WPtel: [address] [phone] US FOLLOW UP 04/15/2019 Patient Education: hydrochlorothiazide- [employer] [facility] [id number] [email or web address]/samplemd/resources/getResource/61/2p7p9670-o72r-573s-hf Completed 04/15/2019 Appointment: Yvette David WPtel: [address] [place], [place] [phone] US LAB 04/04/2019 Care Plan: US EXAM CHEST US of left breast LOINC : 33689-2 Pending 03/17/2019 Visit Diagnosis Plan: Hypothyroidism, unspecified Disc ussion: Stable ICD-9 : 244.9 ICD-10 : E03.9 11/26/2018 Visit Diagnosis Plan: Paroxysmal atrial fibrillation D iscussion: Stable ICD-9 : 427.31 ICD-10 : I48.0 11/26/2018 Visit Diagnosis Plan: Encounter for [facility] adult medical examination without abnormal findings Discussion: Mediterranean diet Combinati on of cardio and weight bearing exercise Recommend Shingrix Lab and fwup in March ICD-9 : V70.9 ICD-10 : Z00.00 11/26/2018 Visit Diagnosis Plan: Essential (primary) hypertension Discussion: Stable ICD-9 : 401.1 ICD-10 : I10 11/26/2018 Appointment: Yvette David WPtel: [address] [place], [place] [phone] US Annual Well Visit 11/26/2018 Appointment: Yvette David WPtel: [address] [place], [place] [phone] US LAB 10/07/2018 Visit Diagnosis Plan: Presence [...] : H91.92 08/08/2018 Appointment: Yvette David WPtel: [address] [place] [address] FOLLOW UP 08/08/2018 Appointment: Natalee Gray [address] CANCELED 07/18/2018 Visit Diagnosis Plan: Sudden [...] : I10 06/25/2018 Appointment: Yvette David WPtel: [address] [place], [place] [address] [facility] Follow Up 06/25/2018 Patient Education: Patient Medication Summary Completed 06/25/2018 Appointment: Yvette David WPtel: [address] [place], [place] [address] BP CHECK 05/20/2018 Patient Education: Patient Medication [...] I10 05/10/2018 Appointment: Yvette David WPtel: [phone] [phone] FOLLOW UP 05/10/2018 Patient Education: Patient Medication [...] I10 05/03/2018 Appointment: Yvette David WPtel: [address] [phone] ACUTE ILLNESS 05/03/2018 Patient Education: Patient Medication [...] E03.9 04/22/2018 Appointment: Yvette David WPtel: [address] [phone] FOLLOW UP 04/22/2018 Patient Education: Patient Medication [...] ICD-10 : B02.9 03/05/2018 Appointment: Natalee Gray [address] [place] [address] ACUTE ILLNESS 03/05/2018 Patient Education: Patient Medication [...] ICD-10 : H61.23 02/19/2018 Appointment: Natalee Gray [address] [place] [address] ACUTE ILLNESS 02/19/2018 Patient Education: Patient Medication Summary Completed 02/19/2018 Appointment: Yvette David WPtel: [address] [phone] LAB 02/13/2018 Patient Education: Patient Medication Summary [...] : G47.33 10/18/2017 Appointment: Yvette David WPtel: [address] [place], [place] [phone] FOLLOW UP 10/18/2017 Patient Education: Patient Medication Summary Completed 10/18/2017 Appointment: Yvette David WPtel: [address] [place], [place] [phone] LAB 10/15/2017 Patient Education: Patient Medication Summary [...] ICD-10 : H61.23 07/24/2017 Appointment: Natalee Gray [address] [place], [place] [address] ACUTE ILLNESS 07/24/2017 Patient Education: Patient Medication Summary Completed 07/24/2017 Referral: Jey Kaye WPtel: [address] [place] [id number] Referral Initiated 07/05/2017 Patient Education: Patient Medication [...] : R00.0 06/14/2017 Appointment: Yvette David WPtel: [address] [place], [place] [phone] FOLLOW UP 06/14/2017 Patient Education: Patient Medication Summary Completed 06/14/2017 Care Plan: Referral Order SNOMED-CT : [id number] Pending 06/14/2017 Visit Plan: ERx for Valtrex, system won' t allow ERx for Prednisone so it is called 10mg 2 po bid x 3 days then 1 po bid x 3 days then 1 po daily x 3 days then 1/2 po daily x 3 days then d/c She declines gabapentin or pain meds Anticipatory guidance discussed. 06/01/2017 Appointment: Demi Rocha WPtel: [facility] [facility] 06/01/2017 Patient Education: Patient Medication [...] : D51.8 03/30/2017 Appointment: Yvette David WPtel: [address] [place] [phone] 7/6 lm ~sl FOLLOW UP 03/30/2017 Patient [...] : R53.83 01/17/2017 Appointment: Yvette David WPtel: [address] [place], [place] [phone] 01/16 lm`sl FOLLOW UP 01/17/2017 Patient Education: [...] Visit Diagnosis Plan: Encounter for [facility] adult medical examination without abnormal findings Discussion: Increase activity and contin ue healthy eating Continune using urinary incontinence pads at night for nocturia Reviewed labs ICD-9 : V70.9 ICD-10 : Z00.00 12/18/2016 Appointment: Yvette David WPtel: [facility]5 [phone] 11/13 confirmed ~sl Annual Well Visit 12/18/2016 Patient Education: Patient Medication Summary Completed 12/18/2016 Appointment: Yvette David WPtel: [facility]5 [phone] US LAB 12/11/2016 Patient Education: Patient Medication [...] 11/02/2016 Visit Diagnosis Plan: Cough Discussion: Nelly mujica ICD-9 : 786.2 ICD-10 : R05 11/02/2016 Appointment: Yvette David WPtel: [facility]0 [phone] FOLLOW UP 11/02/2016 Appointment: Yvette David WPtel: [address] [place], [place] [phone] CANCELED 11/02/2016 Patient Education: Patient Medication Summary Completed 11/02/2016 Visit Diagnosis Plan: Acute upper respiratory infectio n, unspecified Discussion: Rx as above Discussed OTC meds and supportive care Notify if not improving so regimen can be changed before her upcoming trip in 2 weeks ICD-9 : 465.9 ICD-10 : J06.9 10/24/2016 Appointment: Elidia Calix [address] [place] [address] ACUTE ILLNESS 10/24/2016 Patient Education: Patient Medication Summary Completed 10/24/2016 Patient Education: Patient Medication Summary Completed 06/26/2016 Visit Plan: Office dip wnl/BP wnl Does s eem likely to be viral GI illness Supportive care with rxs as above Soft and bland diet Will need bloodwork if not improving 02/07/2016 Appointment: Elidia Calix [address] [place], [place] [phone] ACUTE ILLNESS 02/07/2016 Patient Education: Patient Medication Summary Completed 02/07/2016 Patient Education: Patient Medication Summary Completed 07/01/2015 Appointment: Yvette Davidtel: [address] [place], [place] [phone] LAB 05/27/2015 Patient Education: Patient Medication Summary Completed 05/27/2015 Visit Plan: Trial of Gralise 300mg at be dtime with 4 oz tonic water Sharron's solution soaks to feet Check TSH, Free T4, B12, CMP, HbA1C now Call in 2weeks 05/26/2015 Appointment: Yvette David WPtel: [address] [place], [place] [phone] 05/25/2015 confirmed w patient ACUTE ILLNESS 10/2014 Patient Education: Patient Medication Summary Completed 05/26/2015 Appointment: Yvette David WPtel: [address] [place], [place] [phone] Stool lab 02/19/2015 Patient Education: Patient Medication Summary Completed 02/19/2015 Appointment: Yvette David WPtel: [address] [place], [place] [phone] Stool lab 01/20/2015 Patient Education: Patient Medication Summary Completed 01/20/2015 Appointment: Yvette David WPtel: [address] [place], [place] [phone] LAB 12/15/2014 Patient Education: Patient Medication Summary Completed 12/15/2014 Appointment: Earline Morris WPtel: [address] [place], [place] [phone] ACUTE ILLNESS 11/30/2014 Patient Education: Patient Medication Summary Completed 11/30/2014 Appointment: Yvette David WPtel: [address] [place], [place] [phone] US LAB 11/26/2014 Patient Education: Patient Medication Summary Completed 11/26/2014 Appointment: Yvette David WPtel: [address] [place], [place] [phone] US LAB 08/14/2014 Patient Education: Patient Medication Summary Completed 08/14/2014 Visit Plan: Defers bone density Proceed with colonoscopy Change omeprazole to protonix Due for fasting lab next month 07/23/2014 Appointment: Yvette David WPtel: [address] [place] [phone] ACUTE ILLNESS 07/23/2014 Patient Education: Patient Medication Summary Completed 07/23/2014 Patient Education: Patient Medication Summary Completed 06/05/2014 Appointment: Earline Morris WPtel: [address] [place], [place] [phone] FOLLOW UP 03/09/2014 Patient Education: Patient Medication Summary Completed 03/09/2014 Appointment: Yvette David WPtel: [address] [place], [place] [phone] ACUTE ILLNESS 02/05/2014 Patient Education: Patient Medication Summary Completed 02/05/2014 Appointment: Yvette David WPtel: [address] [place], [place] [phone] [facility] 02/04/2014 Patient Education: Patient Medication Summary Completed 02/04/2014 Appointment: Earline Morris WPtel: [address] [place], [place] [phone] ACUTE ILLNESS 05/12/2013 Patient Education: Patient Medication Summary Completed 05/12/2013 Visit Plan: MRI results discussed Discus sed epidural injections SI joint injection as above Continue Celebrex 200mg daily 04/07/2013 Appointment: Yvette David WPtel: [address] [place], [place] [phone] 04/04 left [facility] FOLLOW UP 04/07/2013 Patient Education: Patient Medication Summary Completed 04/07/2013 Visit Plan: Restart PT and epidural--may need updated MRI of L/S spine Tylenol prn Celebrex 200mg daily 03/31/2013 Appointment: Yvette David WPtel: [address] [place], [place] [phone] ACUTE ILLNESS 03/31/2013 Patient Education: Patient Medication Summary Completed 03/31/2013 Visit Plan: Injection to hip as above Pt will take Vimovo 500/20mg po daily for next week Call in 1wk on both hip and stomach Discussed that likely has arthritis in hip as well 10/09/2012 Appointment: Yvette David WPtel: [address] [place], [place] [phone] 10/08 Left message ACUTE ILLNESS 10/09/2012 Patient Education: Patient Medication Summary Completed 10/09/2012 Visit Plan: See urology--Dr. Hutchinson for cystocele Start Premarin vaginal Cream 1/2 gm vaginally twice weekly then repeat PAP in 3mos Continue nexium for 4 more weeks then start Zantac daily--notify if cough returns 03/28/2012 Appointment: Yvette David WPtel: [address] [place], [place] [phone] PAP 03/28/2012 Patient Education: Patient Medication Summary Completed 03/28/2012 Appointment: Yvette David WPtel: [address] [place], [place] [phone] LAB 03/18/2012 Patient Education: Patient Medication Summary Completed 03/18/2012 Appointment: Reyna Colón WPtel: [address] [place], [place] [phone] OFFICE SURGERY 2012 Patient Education: Patient Medication Summary Completed 2012 Visit Plan: Pap done Kegel exercises--de fers meds or surgery eval at this time Mammo due in January DC symbicort 09/27/2011 Appointment: Yvette David WPtel: [address] [place], [place] [phone] FOLLOW UP 09/27/2011 Patient Education: Patient Medication Summary Completed 09/27/2011 Visit Plan: Symbicort 160/4.5 2 p BID 09/13/2011 Appointment: Yvette David WPtel: [address] [place], [place] [phone] ACUTE ILLNESS 09/13/2011 Patient Education: Patient Medication Summary Completed 09/13/2011 Visit Plan: Cefdinir and medrol dose pac k. Discussed if no improvement by Sunday will obtain chest x-ray and CBC with mycoplasma. 08/07/2011 Appointment: Reyna Colón WPtel: [address] [place], [place] [phone] ACUTE ILLNESS 08/07/2011 Patient Education: Patient Medication Summary Completed 08/07/2011 Appointment: Yvette David WPtel: [address] [place], [place] [phone] 07/13/2011 Patient Education: Patient Medication Summary Completed 07/13/2011 Appointment: Yvette David WPtel: [address] [place], [place] [phone] LAB 03/13/2011 Patient Education: Patient Medication Summary Completed 03/13/2011 Appointment: Yvette David WPtel: [address] [place], [place] [phone] BP CHECK 02/06/2011 Patient Education: Patient Medication Summary Completed 02/06/2011 Appointment: Yvette David WPtel: [address] [place], [place] [phone] BP CHECK 01/20/2011 Patient Education: Patient Medication Summary Completed 01/20/2011 Appointment: Yvette David WPtel: [address] [place], [place] [phone] BP CHECK 01/12/2011 Patient Education: Patient Medication Summary Completed 01/12/2011 Visit Plan: Increase Synthroid to 75mcg po daily Increase fish oil to BID Start daily Toprol XL 12.5mg BP check in 1wk TSH and Free T4 in 2mos. 01/04/2011 Appointment: Yvette David WPtel: [address] [place], [place] [phone] FOLLOW UP 01/04/2011 Patient Education: Patient Medication Summary Completed 01/04/2011 Appointment: Yvette David WPtel: [phone] [phone] [facility] 12/16/2010 Patient Education: Patient Medication Summary Completed 12/16/2010 Visit Plan: Start PT May need MRI 02/14/2010 Appointment: Yvette David WPtel: [phone] [facility] 02/14/2010 Patient Education: Patient Medication [...] injection (steroid). 02/07/2010 Appointment: Reyna Colón WPtel: [address] [place], [place] [address] ACUTE ILLNESS 02/07/2010 Patient Education: Patient Medication Summary Completed 02/07/2010 Appointment: Yvette David WPtel: [address] [place] [phone] LAB 12/22/2009 Patient Education: Patient Medication Summary Completed 12/22/2009 Referral: Lino Davila [address] [address] [place] Referral Initiated Instructions Comment Date . Supportive [...] data not found Advance Directives Filename Date [id number] 06/03/2012
--- NOTE | 2022-08-14 14:51 | Occupational Ther Daily Note ---
OT Current Status-Daily Note Subjective Took over care from OTR/L. Pt alert, working with PT. Pt c/o rib pain, 01/31. Pt agrees to therapy. Co-treat with PT([id number]), skills of 2 clinicians required to decrease fall risk, increase safe mobility, decrease overall pain. PT focusing on dynamic balance, ambulation and transfers while OT focusing on R UE placement, dynamic balance for functional mobility and UE strengthening. Mental Status/Objective Patient Orientation: Person, Place, Time, Situation ADL-Treatment Pt required mod assist for toilet transfer. CGA for toileting. Therapy Code Descriptions/Definitions Functional [place] Measure: 0=Not Assessed/NA 4=Minimal Assistance 1=Total Assistance 5=Supervision or Setup 2=Maximal Assistance 6=Modified [place] 3=Moderate Assistance 7=Complete IndependenceSCALE: Activities may be completed with or without assistive devices. 2-Fhptpinpii-tvneqcm completes the activity by him/herself with no assistance from a helper. 5-Set-up or Clean-up Assistance-helper sets up or cleans up; patient completes activity. [place] assists only prior to or following the activity. 4-Supervision or Touching Assistance-helper provides verbal cues and/or touchin g/steadying and/or contact guard assistance as patient completes activity. Assistance may be provided throughout the activity or intermittently. 3-Partial/Moderate Assistance-helper does LESS THAN HALF the effort. [place] lifts, holds or supports trunk or limbs, but provides less than half the effort. 2-Substantial/Maximal Assistance-helper does MORE THAN HALF the effort. [place] lifts or holds trunk or limbs and provides more than half the effort. 2-Xqztvwjjl-urrsjz does ALL the effort. Patient does none of the effort to complete the activity. Or, the assistance of 2 or more helpers is required for the patient to complete the activity. If activity was not attempted, code reason: 7-Patient Refused. 9-Not Applicable-not attempted and the patient did not perform the activity before the current illness, exacerbation or injury. 10-Not Attempted due to Environmental Limitations-(lack of equipment, weather restraints, etc.). 88-Not Attempted due to Medical Conditions or Safety Concerns. Other Treatment Pt completed 2 reps of resistant L UE exercises while standing CGA with breaks in between to increase endurance and UE strength. Pt completed AROM UE exercises with L UE in reps of 10 with breaks between reps to increase ROM and UE strength for self care and mobility. Pt completed exercises in BUE with yellow resistant sponge to increase gas meter repairer strength. Pt ambulated from therapy gym to room with quad cane, CGA. Pt requires VC's to use quad cane and correct placement of quad cane while ambulating. Pt displayed multiple episodes of LOB while ambulating. Pt in bed post tx. Phone/ call light in reach. All needs met in room. Education OT Patient Education: Home exercise program Teaching Recipient: Patient Teaching Methods: Demonstration, Discussion Response to Teaching: Verbalize Understanding, Return Demonstration OT Short Term Goals Short Term Goals Time Frame: Aug 25, 2022 Shower/bathe self: 3 Lower body dressin OT Penitentiary Goals Penitentiary Goals Time Frame: Sep 15, 2022 Acute change in mental status: 0 Inattention: 0 Disorganized thinkin Altered level of consciousness: 0 Eating (QC): 6 Oral Hygiene (QC): 6 Toileting Hygiene (QC): 6 Shower/Bathe Self (QC): 6 Upper Body Dressing (QC): 6 Lower Body Dressing (QC): 6 On/Off Footwear (QC): 6 Additional Goals: 1-Demonstrate ADL Tasks, 2-Verbalize Understanding, 3- ImproveStrength/Jenae 1=Demonstrate adherence to instructed precautions during ADL tasks. 2=Patient will verbalize/demonstrate understanding of assistive devices/modifications for ADL. 3=Patient will improve strength/tolerance for activity to enable patient to perform ADL's. OT Education/Plan Problem List/Assessment Assessment: Decreased Activ Tolerance, Decreased Safety Aware, Decreased UE Strength, Impaired Bed Mobility, Impaired Coordination, Impaired Funct Balance, Impaired I ADL's, Impaired Self-Care Skills, Restricted Funct UE ROM Discharge Recommendations Plan/Recommendations: Continue POC Treatment Plan/Plan of Care Patient would benefit from OT for education, treatment and training to promote independence in ADL's, mobility, safety and/or upper extremity function for ADL's. Plan of Care: ADL Retraining, Functional Mobility, Group Exercise/Act as Ind, UE Funct Exercise/Act Treatment Duration: Sep 15, 2022 Frequency: At least 5 of 7 days/Wk (IRF) Estimated Hrs Per Day: 1.5 hours per day Agreement: Yes Rehab Potential: Fair Time Start Time: 13:35 Stop Time: 14:55 DATE: Aug 14, 2022 Total Time Billed (hr/min): 80 Billed Treatment Time 1 visit EX 4 (60 min) FA (20 min) Co-treat with PT 80 min KAROLINA GUTIERREZ Aug 14, 2022 14:51
--- NOTE | 2022-08-14 14:52 | Physical Therapy Evaluation ---
PT Evaluation-General Medical Diagnosis Admission Date Aug 14, 2022 at 13:15 Medical Diagnosis: debility Onset Date: Aug 14, 2022 Therapy Diagnosis Therapy Diagnosis: Impaired Mobility Height/Weight Height (Feet): 5 Height (Inches): 10.00 Weight (Pounds): 180 Precautions Precautions/Isolations: Fall Prevention, Standard Precautions Weight Bear Status Right Lower Extremity: Right Weight Bearing/Tolerated Left Lower Extremity: Left Weight Bearing/Tolerated PATIENT IS NON-WEIGHT BEARING IN HER UPPER RIGHT EXTREMITY Referral Physician: Dina Reason for Referral: Evaluation/Treatment Medical History Additional Medical History Surgeries: Eye Surgery, Hysterectomy, Orthopedic Currently Using CPAP: Yes Currently Using BIPAP: No Cardiac: Atrial Fibrillation, Irregular Heartbeat Neurological: Vertigo Hysterectomy, Menopausal Gastrointestinal: Gastroesophageal Reflux Endocrine: Hypothyroidsim Cancer: Skin History of Blood Disorders: No Reviewed History: Yes Social History Home: Single Level Current Living Status: Alone Entry Into Home: Stairs With Railing PT Steps Into Home: 2 Prior Prior Level of Function SCALE: Activities may be completed with or without assistive devices. 9-Jhirqehyds-jcsduyu completes the activity by him/herself with no assistance from a helper. 5-Set-up or Clean-up Assistance-helper sets up or cleans up; patient completes activity. [place] assists only prior to or following the activity. 4-Supervision or Touching Assistance-helper provides verbal cues and/or touching/steadying and/or contact guard assistance as patient completes activity . Assistance may be provided throughout the activity or intermittently. 3-Partial/Moderate Assistance-helper does LESS THAN HALF the effort. [place] lifts, holds or supports trunk or limbs, but provides less than half the effort. 2-Substantial/Maximal Assistance-helper does MORE THAN HALF the effort. [place] lifts or holds trunk or limbs and provides more than half the effort. 9-Rxjcxjxpt-hysmld does ALL the effort. Patient does none of the effort to complete the activity. Or, the assistance of 2 or more helpers is required for the patient to complete the activity. If activity was not attempted, code reason: 7-Patient Refused. 9-Not Applicable-not attempted and the patient did not perform the activity before the current illness, exacerbation or injury. 10-Not Attempted due to Environmental Limitations-(lack of equipment, weather restraints, etc.). 88-Not Attempted due to Medical Conditions or Safety Concerns. Bed Mobility: 6 Transfers (B,C,W/C): 6 Gait: 6 Stairs: 6 Indoor Mobility (Ambulation): Independent Stairs: Independent Prior Devices Use: None Son states patient has a single point cane but rarely uses it. PT Evaluation-Current Subjective Patient brought from ER to rehab floor, reports pain 3/10 at rest and 6/10 with activity in ribs and arm, agrees to PT. Will co-treat with OT for safety and patient not being able to bear weight on R arm from humerus fx and has rib fx, severe debility, coordinate UE and LE during activity, safety and reduce risk of falls. Pain Section J - Health Conditions 1. Rarely or not at all 2. Occasionally 3. Frequently 4. Almost constantly 8. Unable to answer Pain Effect on Sleep: 2 Pain Interference with Therapy: 2 Pain Interference w/Day-to-Day: 2 Pt/Family Goals Return home to independence. Objective Patient Orientation: Person, Place, Situation ROM/Strength ROM Lower Extremities BLE grossly WFL Strength Lower Extremities BLE grossly 4+/5 Sensory Vision: Wears Glasses Hearing: Hearing Aid/Aides Hand Dominance: Right Sensation Right Lower Extremit: Impaired (impaired ankle and below) Sensation Left Lower Extremity: Impaired (impaired below ankle) Transfers Roll Left & Right (QC): 3 Sit to Lying (QC): 3 Lying to Sitting/Side of Bed(Q: 3 Sit to Stand (QC): 3 Chair/Gpg-pn-Bcqwr Xfer(QC): 4 (CGA) Toilet Transfer (QC): 3 Car Transfer (QC): 3 Min A with transfers except bed<->chair transfer Gait Does the Patient Walk?: Yes Mode of Locomotion: Walk Anticipated Mode of Locomotion: Walk Walk 10 feet (QC): 4 Walk 50 ft with 2 Turns(QC): 4 Walk 150 ft (QC): 4 Walking 10ft/uneven surface-QC: 4 Distance: 20', 100', 150' Gait Assistive Device: Walker Jono Comments/Gait Description CGA with ambulation, Patient walks with slow gait speed, decreased foot clearance, decent step length, but is a bit unsteady walking with hemiwalker. Patient tends to pick hemiwalker up and try to walk with it. Wheelchair Training Wheel 50 ft with 2 turns (QC): 9 Wheel 150 ft (QC): 9 Stairs #of Steps: 1 1 Step (curb) (QC): 4 (CGA) 4 Steps (QC): 88 12 Steps (QC): 88 CGA with stairs Balance Sitting Static: Normal Sitting Dynamic: Normal Standing Static: Normal Standing Dynamic: Fair Picking up an Object (QC): 4 (CGA with hazmat truck driver arm) Treatment LE Strengthening (LAQ x20, AP x20, Hip Flexion x20), Putting Close Pins On and Off Wire in standing x2 sets, Transfers, Bed Mobility, Balance, [place] 19/28 - moderate fall risk PT worked on bed mobility and transfers, ambulation, stair training, LE strengthening, standing activity with clothes pins, OT worked on clothes pin activity, UE strengthening and ROM, UE positioning and safety during activity. Assessment/Needs Patient a bit unsteady when walking and patient reports especially feels unsteady when turning or head movements in standing. Patient's overall strength is good, but has difficulty with vision from R eye swelling completely shut. Rehab Potential: Fair PT Short Term Goals Short Term Goals Time Frame: Aug 21, 2022 Roll Left & Right: 4 (SBA) Sit to lyin (SBA) Lying to sitting on side of be: 4 (SBA) Sit to stand: 4 (CGA) Chair/ogz-on-wtvvz transfer: 4 (SBA) Toilet transfer: 4 (CGA) Car transfer: 4 (SBA) Walk 10 feet: 4 (SBA) Walk 50 feet with two turns: 4 (SBA) Walk 150 feet: 4 (SBA) Walking 10ft on uneven surface: 4 (SBA) 1 step (curb): 4 (SBA) 4 steps: 4 (CGA) 12 steps: 4 (CGA) Picking up objects: 4 (SBA) PT Alf Goals K9 Handler Goals PT K9 Handler Goals Time Frame: Sep 04, 2022 Roll Left to Right (QC): 6 Sit to Lying (QC): 6 Lying-Sitting on Side/Bed(QC): 6 Sit to Stand (QC): 6 Chair/Stw-fw-Jrpsh Xfer(QC): 6 Toilet/Commode Transfer (QC): 6 Car Transfer (QC): 6 Does the Patient Walk: Yes Walk 10 feet (QC): 6 Walk 10ft-Uneven Surface(QC): 6 Walk 50ft with 2 Turns (QC): 6 Walk 150 ft (QC): 6 Wheel 50 feet with 2 turns (QC: 9 Wheel 150 feet: 9 1 Step (curb) (QC): 6 4 Steps (QC): 6 12 Steps (QC): 6 Picking up an Object (QC): 6 (with hazmat truck driver arm) PT Plan Problem List Problem List: Activity Tolerance, Functional Strength, Safety, Balance, Gait, Transfer, Bed Mobility, ROM Treatment/Plan Treatment Plan: Continue Plan of Care Treatment Plan: Bed Mobility, Education, Functional Activity Jenae, Functional Strength, Gait, Safety, Therapeutic Exercise, Transfers Treatment Duration: Sep 04, 2022 Frequency: At least 5 of 7 days/Wk (IRF) Estimated Hrs Per Day: 1.5 hours per day Patient and/or Family Agrees t: Yes Safety Risks/Education Patient Education: Gait Training, Transfer Techniques, Steps, Correct Positioning, Safety Issues Teaching Recipient: Patient Teaching Methods: Demonstration, Discussion Response to Teaching: Reinforcement Needed Discharge Recommendations Plan Patient will perform bed mobility and transfer training, balance and endurance training, stairs and gait training, and functional strengthening in order to be independent at home. Therapy Discharge Recommendati: Scheduled Assistance, Home & Family, Post Acute PT Time Time In: 1325 Time Out: 1455 DATE: Aug 14, 2022 Total Billed Treatment Time: 90 Total Billed Treatment 1 visit EVM 10' FA x2 (30min) EX x3 (45min) OT eval from [id number], PT eval from [id number], co-treat from [id number] AYLA NATHAN PT Aug 14, 2022 14:52
[2022-08-14] MEDS ORDERED: VENL75CA93 PO (15:43)
[2022-08-14] MEDS ORDERED: DILT-27 PO (15:43)
[2022-08-14] MEDS ORDERED: MONT-40 PO (15:43)
[2022-08-14] MEDS ORDERED: FISH1CAP15 PO (15:43)
[2022-08-14] MEDS ORDERED: TRAM50TA3 PO (15:45)
[2022-08-14] MEDS ORDERED: OXYC1TAB11 PO (15:45)
[2022-08-14 15:49] VITALS: BP 141/68
[2022-08-14 20:00] VITALS: BP 117/79
[2022-08-14] MEDS ORDERED: NON-FORMULARY MEDICATION 1 EA EA (Simvastatin 20 MG) PO SCH (21:00)
[2022-08-14] MEDS: polyethylene glycoL POWDER 17 GM (MIRALAX) PACK PO SCH (21:06)
[2022-08-14] MEDS: ROSUVASTATIN 5 MG (CRESTOR) TABLET PO SCH (21:09)
[2022-08-14] MEDS: SENNA W/DOCUSATE (SENOKOT S) TABLET PO SCH (21:09)
[2022-08-14] MEDS: meTOproloL SUCCINATE 50 MG (TOPROL XL) TAB PO SCH (21:10)
[2022-08-14] MEDS: DOCUSATE SODIUM 100 MG (COLACE) CAP PO SCH (21:11)
[2022-08-14] MEDS: dilTIAZem120 MG (CARDIZEM CD) CAP PO SCH (21:11)
[2022-08-14] MEDS: MONTELUKAST 10 MG (SINGULAIR) TAB PO SCH (21:11)
[2022-08-14] MEDS: ACETAMINOPHEN 325 MG TABLET PO PRN (23:47)
[2022-08-14] MEDS: MELATONIN 3 MG TABLET PO PRN (23:50)
[2022-08-15 05:24] LABS: BASOPHILS # (AUTO) 0.1 10^3/uL (0.0-0.1); BASOPHILS % (AUTO) 1 % (0-10); EOSINOPHILS # (AUTO) 0.1 10^3/uL (0.0-0.3); EOSINOPHILS % (AUTO) 1 % (0-10); HEMATOCRIT 31 % (35-52); HEMOGLOBIN 9.8 g/dL (11.5-16.0); LYMPHOCYTES # (AUTO) 1.5 10^3/uL (1.0-4.0); LYMPHOCYTES % (AUTO) 15 % (12-44); MEAN CORPUSCULAR HEMOGLOBIN 27 pg (25-34); MEAN CORPUSCULAR HGB CONC 32 g/dL (32-36); MEAN CORPUSCULAR VOLUME 85 fL (80-99); MEAN PLATELET VOLUME 9.6 fL (9.0-12.2); MONOCYTES # (AUTO) 1.3 10^3/uL (0.0-1.0); MONOCYTES % (AUTO) 14 % (0-12); NEUTROPHILS # (AUTO) 6.6 10^3/uL (1.8-7.8); NEUTROPHILS % (AUTO) 68 % (42-75); PLATELET COUNT 267 10^3/uL (130-400); WHITE BLOOD COUNT 9.6 10^3/uL (4.3-11.0)
[2022-08-15 05:47] LABS: ALBUMIN 3.2 GM/DL (3.2-4.5); BILIRUBIN,TOTAL 1.5 MG/DL (0.1-1.0); CALCIUM 8.6 MG/DL (8.5-10.1); CREATININE SERUM 0.71 MG/DL (0.60-1.30); POTASSIUM 3.1 MMOL/L (3.6-5.0); TOTAL PROTEIN 6.2 GM/DL (6.4-8.2)
[2022-08-15] MEDS: LEVOTHYROXINE 88 MCG (LEVOTHORID) TAB PO SCH (06:27)
--- NOTE | 2022-08-15 06:28 | PM&R Progress Note ---
Subjective HPI/CC On Admission Date Seen by Provider: Aug 15, 2022 Time Seen by Provider: 08:30 Subjective/Events-last exam 08/15/2022: No major issues Right eye less swollen Wrist pain noted so will give Oxycodone prior to therapy Used CPAP last night Tachy 100's Potassium 3.1 so ordered supplement Review of Systems General: Fatigue, Malaise HEENT: Head Aches, Eye Pain Musculoskeletal: neck pain, shoulder pain, arm pain Objective Exam Vital Signs Vital Signs Date Time Temp Pulse Resp B/P (MAP) Pulse Ox O2 Delivery O2 Flow Rate FiO2 08/15/22 21:30 Room Air 08/15/22 20:17 37.4 108 20 119/86 (97) 91 Capillary Refill : General Appearance: No Apparent Distress, WD/WN, Chronically ill HEENT: Pharynx Normal, Other (Right facial hematoma with edematous periorbital region) Neck: Full Range of Motion, Normal Inspection, Non Tender, Supple, Carotid Bruit Respiratory: Chest Non Tender, Lungs Clear, Normal Breath Sounds, No Accessory Muscle Use, No Respiratory Distress Cardiovascular: No Edema, No Gallop, No JVD, No Murmur, Normal Peripheral Pulses, Irregularly Irregular Gastrointestinal: Normal Bowel Sounds, No Organomegaly, No Pulsatile Mass, Non Tender, Soft Back: Normal Inspection, No CVA Tenderness, No Vertebral Tenderness Extremity: Normal Capillary Refill, Normal Inspection, Normal Range of Motion (Except right arm), Non Tender, No Calf Tenderness, No Pedal Edema Neurologic/Psychiatric: Alert, Oriented x3, Normal Mood/Affect, bogger operator II-XII Norm as Tested, Abnormal Gait, Motor Weakness (Right arm with sling) Skin: Normal Color, Warm/Dry Lymphatic: No Adenopathy Results/Procedures Lab Laboratory Tests 08/15/22 05:10 Patient resulted labs reviewed. FIM Transfers Therapy Code Descriptions/Definitions Functional [place] Measure: 0=Not Assessed/NA 4=Minimal Assistance 1=Total Assistance 5=Supervision or Setup 2=Maximal Assistance 6=Modified [place] 3=Moderate Assistance 7=Complete IndependenceSCALE: Activities may be completed with or without assistive devices. 2-Axssvbsvca-esseiqb completes the activity by him/herself with no assistance from a helper. 5-Set-up or Clean-up Assistance-helper sets up or cleans up; patient completes activity. [place] assists only prior to or following the activity. 4-Supervision or Touching Assistance-helper provides verbal cues and/or touching/steadying and/or contact guard assistance as patient completes activity. Assistance may be provided throughout the activity or intermittently. 3-Partial/Moderate Assistance-helper does LESS THAN HALF the effort. [place] lifts, holds or supports trunk or limbs, but provides less than half the effort. 2-Substantial/Maximal Assistance-helper does MORE THAN HALF the effort. [place] lifts or holds trunk or limbs and provides more than half the effort. 6-Mweyhbmxl-fejnzf does ALL the effort. Patient does none of the effort to complete the activity. Or, the assistance of 2 or more helpers is required for the patient to complete the activity. If activity was not attempted, code reason: 7-Patient Refused. 9-Not Applicable-not attempted and the patient did not perform the activity before the current illness, exacerbation or injury. 10-Not Attempted due to Environmental Limitations-(lack of equipment, weather restraints, etc.). 88-Not Attempted due to Medical Conditions or Safety Concerns. Roll Left to Right (QC): 3 Sit to Lying (QC): 3 Sit to Stand (QC): 3 Chair/Gmk-bt-Omcrc Xfer(QC): 4 (CGA) Car Transfer (QC): 3 Gait Training Does the Patient Walk?: Yes Walk 10 feet (QC): 4 Walk 50 ft with 2 Turns(QC): 4 Walk 150 ft (QC): 4 Walking 10ft/uneven surface-QC: 4 Gait Assistive Device: Walker Jono Wheelchair Training Wheel 50 ft with 2 turns (QC): 9 Wheel 150 ft (QC): 9 Stair Training #of Steps: 1 1 Step (curb) (QC): 4 (CGA) 4 Steps (QC): 88 12 Steps (QC): 88 Balance Picking up an Object (QC): 4 (CGA with balance and hairspring assembler arm) ADL-Treatment Eating (QC): 5 On/Off Footwear (QC): 3 (Min A with donning L gripper sock) Assessment/Plan Assessment and Plan Assess & Plan/Chief Complaint A/P: 1. Closed head injury: Negative for intracranial injury on CT. Continue monitoring for neurological symptoms and observe facial swelling. 2. Difficulty balancing/ambulating: PT/OT 3. Anticoagulated status secondary to afib: Continue monitoring facial swelling for sign of acute bleed. Hold Xarelto until facial swelling has subsided and patient has improved balance and gait since risk of bleeding outweighs the benefits of stroke prophylaxis right now 4. HTN Continue treating on home meds. 5. Hypokalemia: K of 3.5. Start on oral potassium replacement. Recheck CMP in 1- 2 days. 6. Anemia: HGB of 11, HCT of 34. Continue monitoring and recheck HGB, HCT. 7. Elevated bilirubin: Bilirubin of 1.7. Continue monitoring for jaundice or liver dysfunction and recheck CMP. 8. UA Abnormalities: Ketones 1+, Crystals Present, Amorphous Sediment Moderate. Likely due to dehydration. Push fluids and possible recheck. 9. HLD 10. Hypothyroidism 11. GERD 12. Reactive airway disease 13. JAS on CPAP 14. Hypokalemia Plan: Hold anticoagulation Aggressive rehab Pain control Supportive care Incentive spirometer 08/15/2022: Replace potassium Oxycodone for severe pain (1) Traumatic hematoma of face Status: Acute (2) Atrial fibrillation (3) Laceration of face Status: Acute (4) Chronic anticoagulation Status: Acute (5) Closed head injury Status: Acute (6) Closed right humeral fracture Status: Acute (7) Contusion of face Status: Acute (8) Fall on same level Status: Acute POLI HARGROVE DO Aug 15, 2022 06:28
--- NOTE | 2022-08-15 06:28 | Individualized Plan of Care ---
Individualized Plan of Care Rehab Nursing IPOC Order Admission Date Aug 14, 2022 at 13:15 Current Orders Orders Admission Order(Inpt,Obs,Sdc) (08/14/22 12:49) Kole Stephenson (08/14/22 12:49) Sequential Compression Device (08/14/22 12:49) Packaging Line Attendant-Inpt Rehab Con (08/14/22 12:49) Rehab Nursing Orders-Ipoc (08/14/22 12:49) Physical Therapy Rehab Orders (08/14/22 12:49) Occupational Therapy Rehab Ord (08/14/22 12:49) Speech Therapy Rehab Orders (08/14/22 12:49) Cbc With Automated Diff (08/15/22 06:00) Comprehensive Metabolic Panel (08/15/22 06:00) Precautions (Aru) (08/14/22 12:49) Weekly Weight WEEK (08/14/22 12:49) Rehab-Intensity Of Therapy (08/14/22 12:49) Initiate Admission Nursing Pro .admission (08/14/22 12:49) Alprazolam Tablet (Xanax Tablet) (08/14/22 13:00) Calcium Carbonate Chew Tablet (Antacid C (08/14/22 13:00) Diphenhydramine Tablet (Benadryl Tablet) (08/14/22 13:00) Docusate Sodium Capsule (Colace Capsule) (08/14/22 21:00) Docusate Sodium Capsule (Colace Capsule) (08/14/22 13:00) Bisacodyl Suppository (Dulcolax Supposit (08/14/22 13:00) Lactulose Oral Solution (Enulose Oral So (08/14/22 13:00) Na Phos/Na Biphos Enema (Fleet Enema Fabian (08/14/22 13:00) Guaifenesin/Codeine Syrup (Robitussin Ac (08/14/22 13:00) Loperamide Tablet (Imodium Tablet) (08/14/22 13:00) Melatonin Tablet (Melatonin Tablet) (08/14/22 13:00) Polyethylene Glycol Powder Pkt (Miralax (08/14/22 21:00) Ondansetron Oral Dissolve Tab (Zofran (08/14/22 13:00) Senna S Tablet (Senokot S Tablet) (08/14/22 21:00) Acetaminophen Tablet/Caplet (Tylenol T (08/14/22 13:00) Code/Resuscitation (08/14/22 12:49) Initiate Admission Nursing Pro .admission (08/14/22 12:49) Admission Arrival Bed Request (08/14/22 13:28) Weight Bearing Restrictions (08/14/22 13:59) Patient Visit (08/14/22 ) Pt Eval Moderate Complexity (08/14/22 ) Functional Activities, Ea 15 (08/14/22 ) Exercise Therap, Ea 15 Min (08/14/22 ) Oxycodone Immediate Rel Tablet (Oxyir Ta (08/14/22 15:45) General/Regular (08/14/22 Dinner) Cyanocobalamin Tablet (Vitamin B-12 Tabl (08/15/22 09:00) Diltiazem Cd 24 Hr Capsule (Cardizem Cd (08/14/22 21:00) Levothyroxine Tablet (Synthroid Tablet) (08/15/22 06:30) Metoprolol Succinate (Xl) Tab (Toprol Xl (08/14/22 21:00) Montelukast Tablet (Singulair Tablet) (08/14/22 21:00) Pantoprazole Tablet (Protonix Tablet) (08/15/22 09:00) Rx-Tramadol Hcl (Rx-Ultram) (08/14/22 18:00) Venlafaxine Xr Capsule (Effexor Xr Capsu (08/15/22 09:00) (Nf) Cholecalciferol (Vitamin D3) (Vitam (08/15/22 09:00) (Nf) Fish Oil/Dha/Epa (Fish Oil 1,200 Mg (08/15/22 09:00) (Nf) Simvastatin (08/14/22 21:00) (Nf) Ubidecarenone (Coq-10) (08/15/22 09:00) Cholecalciferol Capsule/Tablet (Vitamin (08/15/22 09:00) [place] 3 Capsule (Fish Oil Capsule) (08/15/22 09:00) Rosuvastatin Tablet (Crestor Tablet) (08/14/22 21:00) Tramadol Tablet (Ultram Tablet) (08/14/22 18:15) Cpap (Set Up) (08/14/22 18:09) Incentive Spirometry (Nursing) Q2H (08/14/22 18:09) Potassium Chloride (Tablet) (Klor Con Ta (08/15/22 09:00) Patient Visit (08/15/22 ) Speech Sound Lang Comp (08/15/22 ) Treat. Speech/Lang/Voice (08/15/22 ) Patient Visit (08/15/22 ) Exercise Therap, Ea 15 Min (08/15/22 ) Functional Activities, Ea 15 (08/15/22 ) Patient Visit (08/15/22 ) Exercise Therap, Ea 15 Min (08/15/22 ) Rehab Nursing Orders: Ongoing Assess. of Cognitive Status, Ongoing Assess. of Function Status, Bladder Management, Bladder Scan, Bladder Training, Bowel Management, Bowel Training, Disease Management & Educaiton, DVT Prophylaxis, Fall Prevention, Fluid/Electrolyte/Nutrition Mgmt, Infection Prevention, Medication Management & Education, Management of Risks & Complications, Management of Skin Intergrity, Nutrition Management, Pain Management, Patient/Family Support, Safety Management, Wound Management Intensity of Therapy to be met Patient to be seen: Min.3h per day/5 of 7d PT IPOC Problem List: Activity Tolerance, Functional Strength, Safety, Balance, Gait, Transfer, Bed Mobility, ROM Treatment Plan: Continue Plan of Care Bed Mobility, Education, Functional Activity Jenae, Functional Strength, Gait, Safety, Therapeutic Exercise, Transfers Treatment Duration: Sep 04, 2022 Frequency: At least 5 of 7 days/Wk (IRF) Estimated Hrs Per Day: 1.5 hours per day OT IPOC Problems: Decreased Activ Tolerance, Decreased Safety Aware, Decreased UE Strength, Impaired Bed Mobility, Impaired Coordination, Impaired Funct Balance, Impaired I ADL's, Impaired Self-Care Skills, Restricted Funct UE ROM OT Treatment, Training and Edu: Yes Plan of Care: ADL Retraining, Functional Mobility, Group Exercise/Act as Ind, UE Funct Exercise/Act Treatment Duration: Sep 15, 2022 Frequency: At least 5 of 7 days/Wk (IRF) Estimated Hrs Per Day: 1.[address] IPOC Speech Therapy Treatment Plan: Discontinue ST Treatment Duration: Aug 15, 2022 Frequency: Modified Program (IRF) Estimated Hrs Per Day: Other Packaging Line Attendant/Case Mgmt Packaging Line Attendant/Case Managemen: Discharge Planning Dietitian/Senior Court Office Assistant Dietitian/Senior Court Office Assistant to monitor nutritional status and make changes and/or recommendations as needed and work with speech pathology on dietary upgrades as the occur. Physician IPOC Medical Issues being managed closely and that require the 24 hour availability of a physician: Recent falls with humerus fracture and now facial hematoma will require close monitoring for recurrent falls and monitoring for AF RVR and holding OAC will be at high risk for decompensation Medical Issues: Bowel/Bladder Function, DVT Prophylaxis, Falls Precautions, Fluid/Electrolyte/Nutrition Balance, Infection Protection, Pain Management, Wound Care Brief Synthesis of Preadmission Screen, Post-Admission Evaluation, and Therapy Evaluations: PT OT will focus on regaining function in order to return to [place] and help prevent falls and increase stamina along with management of ADLs with right arm in sling Medical Prognosis: Fair Anticipated Length of Stay: 10 days POLI HARGROVE DO Aug 15, 2022 06:28
[2022-08-15 07:36] VITALS: BP 119/68
[2022-08-15] MEDS: OMEGA 3 (FISH OIL) 1000 MG CAP PO SCH (08:09)
[2022-08-15] MEDS: CYANOCOBALAMIN 1,000 MCG (VITAMIN B-12) TABLET PO SCH (08:10)
[2022-08-15] MEDS: dilTIAZem120 MG (CARDIZEM CD) CAP PO SCH ×2 (08:10→21:40)
[2022-08-15] MEDS: SENNA W/DOCUSATE (SENOKOT S) TABLET PO SCH ×2 (08:10→22:28)
[2022-08-15] MEDS: meTOproloL SUCCINATE 50 MG (TOPROL XL) TAB PO SCH ×2 (08:10→21:41)
[2022-08-15] MEDS: VITAMIN D3 25 MCG (1,000 UNITS) TABLET PO SCH (08:10)
[2022-08-15] MEDS: PANTOPRAZOLE 40 MG (PROTONIX) TAB PO SCH (08:11)
[2022-08-15] MEDS: VENlafaxine XR 75 MG (EFFEXOR XR) CAP PO SCH (08:11)
[2022-08-15] MEDS: DOCUSATE SODIUM 100 MG (COLACE) CAP PO SCH ×2 (08:11→22:28)
[2022-08-15] MEDS: polyethylene glycoL POWDER 17 GM (MIRALAX) PACK PO SCH ×2 (08:11→22:28)
--- NOTE | 2022-08-15 08:11 | Progress Note ---
ALYSSA JACKSON 08/15/22 0811: Progress Note S: Lucille Bar is an 82 yo female who was admitted to inpatient rehab from the emergency department for a closed head injury. The patient sustained a fall onto tiled bathroom floor with significant facial swelling; she has also suffered a separate recent fall resulting in humeral head fracture. The patient states she was previously independent of her ADLs until recent events, though she has had worsening balance for some time. She was admitted to inpatient rehab to monitor swelling and improve ambulation. The patient upon encounter today is seated comfortably in her recliner. She reports pain to her right wrist; she notes her right upper extremity pain secondary to her right humeral fracture radiates/migrates from her right shoulder distally, so this pain is not new. She indicates her right hand discoloration is improved from yesterday. The patient denies any facial or eye pain and remarks she is able to open her eye more than yesterday. The patient denies any concerns regarding food or fluid intake, as well as urinary or bowel movement symptoms. O: VS reveal elevated HR, otherwise stable: Temp 37.3 F, HR 115, RR 20, BP 117/79, SpO2 93% RA PE: Constitutional: Elderly white female, seated in recliner. No acute distress. Calm and cooperative. Head: Swelling and ecchymosis to the right periorbital region, with suturing to the right temporal area superolateral to the right eye. Tenderness to palpation of the right periorbital region. MSK: RUE in sling. Right hand and wrist with mild darkening discoloration. Tenderness to palpation of the right wrist. Cardiovascular: Heart irregularly irregular. No murmurs. Pulmonary: LCTAB. No wheezes, crackles, rales, rhonchi Peripheral Pulses: 2+ DP, radial bilaterally. Labs 08/15: HGB 9.8, HCT 31, K+ 3.1 A/P: 1. Closed head injury: Negative for intracranial injury on CT. Continue monitoring for neurological symptoms and observe facial swelling. 2. Difficulty balancing/ambulating: PT/OT. 3. Anticoagulated status secondary to afib: Continue monitoring facial swelling for sign of acute bleed. Discontinue Xarelto until facial swelling has subsided and patient has improved balance and gait. 4. HTN, HLD, Hypothyroidism, GERD, Reactive airway disease: Continue treating on home meds. 5. Hypokalemia: K of 3.5 08/14. K of 3.1 08/15. Start on oral potassium replacement and continue monitoring. 6. Anemia: HGB of 11, HCT of 34 08/14. HGB 9.8, HCT 31 08/15. Continue monitoring and recheck HGB, HCT. 7. Elevated bilirubin: Bilirubin of 1.7 08/14. Improved to 1.5 08/15. Continue monitoring for jaundice or liver dysfunction and recheck CMP. 8. UA Abnormalities: Ketones 1+, Crystals Present, Amorphous Sediment Moderate. Likely due to dehydration. Push fluids and possible recheck. DAPHNE HARGROVE DO 08/16/22 0516: Supervisory-Addendum Brief Verification & Attestation Participated in pt care: history, MDM, physical Personally performed: exam, history, MDM, supervision of care Care discussed with: Medical Student Procedures: n/a Results interpretation: Verified all documentation Verification and Attestation of Medical Student E/M Service A medical student performed and documented this service in my presence. I reviewed and verified all information documented by the medical student and made modifications to such information, when appropriate. I personally performed the physical exam and medical decision making. Daphne Hargrove, Aug 16, 2022,05:16 ALYSSA JACKSON Aug 15, 2022 08:11 DAPHNE HARGROVE DO Aug 16, 2022 05:16
--- NOTE | 2022-08-15 08:58 | Occupational Ther Daily Note ---
OT Current Status-Daily Note Subjective Pt in recliner, agreeable to OT tx. Rates pain 6/10 in R wrist. Ice pack applied to R wrist following tx. Mental Status/Objective Patient Orientation: Person, Place, Time, Situation ADL-Treatment Therapy Code Descriptions/Definitions Functional [place] Measure: 0=Not Assessed/NA 4=Minimal Assistance 1=Total Assistance 5=Supervision or Setup 2=Maximal Assistance 6=Modified [place] 3=Moderate Assistance 7=Complete IndependenceSCALE: Activities may be completed with or without assistive devices. 7-Tayogynzjg-dismidv completes the activity by him/herself with no assistance from a helper. 5-Set-up or Clean-up Assistance-helper sets up or cleans up; patient completes activity. [place] assists only prior to or following the activity. 4-Supervision or Touching Assistance-helper provides verbal cues and/or touching/steadying and/or contact guard assistance as patient completes activity. Assistance may be provided throughout the activity or intermittently. 3-Partial/Moderate Assistance-helper does LESS THAN HALF the effort. [place] li fts, holds or supports trunk or limbs, but provides less than half the effort. 2-Substantial/Maximal Assistance-helper does MORE THAN HALF the effort. [place] lifts or holds trunk or limbs and provides more than half the effort. 7-Fnrkrfokr-xhdieg does ALL the effort. Patient does none of the effort to complete the activity. Or, the assistance of 2 or more helpers is required for the patient to complete the activity. If activity was not attempted, code reason: 7-Patient Refused. 9-Not Applicable-not attempted and the patient did not perform the activity before the current illness, exacerbation or injury. 10-Not Attempted due to Environmental Limitations-(lack of equipment, weather restraints, etc.). 88-Not Attempted due to Medical Conditions or Safety Concerns. On/Off Footwear: 4 (SBA with gripper socks.) Other Treatment Pt seated in recliner, used vickey cane to transfer into bathroom and onto toilet. Pt completed toileting (min A with pant hike). Pt sat at sink to complete oral care (set up), sponge bath (min A), UE dressing (min A), LE Dressing (min A), and footwear (SBA). Pt returned to recliner using vickey walker. Post tx, pt in recliner, call light in reach and all needs met. Ice pack placed to R wrist where pt states majority of her pain is located. Min A sit to/from stand, CGA-Min A with mobility using vickey walker in L hand. Skilled VCs required with transfers for hand placement. Education OT Patient Education: Correct positioning, Energy conservation, Modified ADL techniques, Progress toward Goal/Update tx plan, Purpose of tx/functional activities Teaching Recipient: Patient Teaching Methods: Discussion Response to Teaching: Verbalize Understanding, Reinforcement Needed OT Short Term Goals Short Term Goals Time Frame: Aug 25, 2022 Shower/bathe self: 3 Lower body dressin OT Dielectric Machine Operator Goals Dielectric Machine Operator Goals Time Frame: Sep 15, 2022 Acute change in mental status: 0 Inattention: 0 Disorganized thinkin Altered level of consciousness: 0 Eating (QC): 6 Oral Hygiene (QC): 6 Toileting Hygiene (QC): 6 Shower/Bathe Self (QC): 6 Upper Body Dressing (QC): 6 Lower Body Dressing (QC): 6 On/Off Footwear (QC): 6 Additional Goals: 1-Demonstrate ADL Tasks, 2-Verbalize Understanding, 3- ImproveStrength/Jenae 1=Demonstrate adherence to instructed precautions during ADL tasks. 2=Patient will verbalize/demonstrate understanding of assistive devices/modifications for ADL. 3=Patient will improve strength/tolerance for activity to enable patient to perform ADL's. OT Education/Plan Problem List/Assessment Assessment: Decreased Activ Tolerance, Decreased UE Strength, Impaired Funct Balance, Impaired I ADL's, Impaired Self-Care Skills Discharge Recommendations Plan/Recommendations: Continue POC Treatment Plan/Plan of Care Patient would benefit from OT for education, treatment and training to promote independence in ADL's, mobility, safety and/or upper extremity function for ADL's. Plan of Care: ADL Retraining, Functional Mobility, Group Exercise/Act as Ind, UE Funct Exercise/Act Treatment Duration: Sep 15, 2022 Frequency: At least 5 of 7 days/Wk (IRF) Estimated Hrs Per Day: 1.5 hours per day Agreement: Yes Rehab Potential: Fair Time Start Time: 07:45 Stop Time: 09:00 DATE: Aug 15, 2022 Total Time Billed (hr/min): 75 Billed Treatment Time 1, ADL 5 RUI MENDOZA OT Aug 15, 2022 08:58
[2022-08-15] MEDS ORDERED: NON-FORMULARY MEDICATION 1 EA EA (Cholecalciferol (Vitamin D3) (Vitamin D3) 25 MCG) PO SCH (09:00)
[2022-08-15] MEDS ORDERED: NON-FORMULARY MEDICATION 1 EA EA (Fish Oil/Dha/Epa (Fish Oil 1,200 mg Fish Oil) 1 EACH) PO SCH (09:00)
[2022-08-15] MEDS ORDERED: NON-FORMULARY MEDICATION 1 EA EA (Ubidecarenone (Coq-10) 100 MG) PO SCH (09:00)
[2022-08-15] MEDS: KCL 10 MEQ TAB (MICRO K) PO SCH ×2 (09:14→17:37)
--- NOTE | 2022-08-15 12:01 | Physical Therapy Daily Note ---
PT Daily Note-Current Subjective Patient in recliner pre-tx, reports pain in RUE but did not score, agrees to PT. Pain Section J - Health Conditions 1. Rarely or not at all 2. Occasionally 3. Frequently 4. Almost constantly 8. Unable to answer Pain Effect on Sleep: 2 Pain Interference with Therapy: 2 Pain Interference w/Day-to-Day: 2 Appearance Patient in recliner post-tx with ice pack on arm, tray, nurse call, phone, all needs met. Mental Status Patient Orientation: Person, Place, Situation Transfers SCALE: Activities may be completed with or without assistive devices. 9-Bivmysgllk-nwuanlr completes the activity by him/herself with no assistance from a helper. 5-Set-up or Clean-up Assistance-helper sets up or cleans up; patient completes activity. [place] assists only prior to or following the activity. 4-Supervision or Touching Assistance-helper provides verbal cues and/or touching/steadying and/or contact guard assistance as patient completes activity. Assistance may be provided throughout the activity or intermittently. 3-Partial/Moderate Assistance-helper does LESS THAN HALF the effort. [place] lifts, holds or supports trunk or limbs, but provides less than half the effort. 2-Substantial/Maximal Assistance-helper does MORE THAN HALF the effort. [place] lifts or holds trunk or limbs and provides more than half the effort. 5-Avbdxmmuz-vyhfoy does ALL the effort. Patient does none of the effort to complete the activity. Or, the assistance of 2 or more helpers is required for the patient to complete the activity. If activity was not attempted, code reason: 7-Patient Refused. 9-Not Applicable-not attempted and the patient did not perform the activity before the current illness, exacerbation or injury. 10-Not Attempted due to Environmental Limitations-(lack of equipment, weather restraints, etc.). 88-Not Attempted due to Medical Conditions or Safety Concerns. Sit to Stand (QC): 4 (CGA) Chair/Wvp-qb-Simpv Xfer(QC): 4 (CGA) Weight Bearing Right Lower Extremity: Right Weight Bearing/Tolerated Left Lower Extremity: Left Weight Bearing/Tolerated PATIENT IS NON-WEIGHT BEARING IN HER UPPER RIGHT EXTREMITY Gait Training Does the Patient Walk?: Yes Distance: 150'x2 Walk 10 feet (QC): 4 Walk 50 ft with 2 Turns(QC): 4 Walk 150 ft (QC): 4 Gait Persons Needed: 1 CGA with ambulation , patient unsteady and wobbles side to side as she walks. Patient tends to orange picker hemiwalker while she walks instead of using it. Switched to quad cane today but still needs verbal cueing to place cane on ground when ambulating and put her weight through it to use it for balance. Balance Special Test Comments 30sec x3 sets of BLE standing on foam pad without using hand support, 30sec x3 sets of feet together standing with arm support Required Min A for exercises due to increased sway without arm support. Exercises NuStep Minutes: 15 NuStep Workload: 6 Treatments Balance, LE Strengthening, Ambulation Assessment Current Status: Fair Progress Patient's swelling around R eye decreases and is able to see a little out of that eye now. Patient still unsteady when walking with assistive device. Patient required Min A to maintain balance during standing exercises due to increased sway. PT Short Term Goals Short Term Goals Time Frame: Aug 21, 2022 Roll Left & Right: 4 (SBA) Sit to lyin (SBA) Lying to sitting on side of be: 4 (SBA) Sit to stand: 4 (CGA) Chair/dqk-af-[place] transfer: 4 (SBA) Toilet transfer: 4 (CGA) Car transfer: 4 (SBA) Walk 10 feet: 4 (SBA) Walk 50 feet with two turns: 4 (SBA) Walk 150 feet: 4 (SBA) Walking 10ft on uneven surface: 4 (SBA) 1 step (curb): 4 (SBA) 4 steps: 4 (CGA) 12 steps: 4 (CGA) Picking up objects: 4 (SBA) PT Penitentiary Goals Penitentiary Goals PT System Configuration Specialist Goals Time Frame: Sep 04, 2022 Roll Left & Right (QC): 6 Sit to Lying (QC): 6 Lying-Sitting on Side/Bed(QC): 6 Sit to Stand (QC): 6 Chair/Dzh-nb-Bvpfo Xfer(QC): 6 Toilet Transfer (QC): 6 Car Transfer (QC): 6 Does the Patient Walk: Yes Walk 10 feet (QC): 6 Walk 50ft with 2 Turns (QC): 6 Walk 150 ft (QC): 6 Walking 10ft on Uneven Surface: 6 1 Step (curb) (QC): 6 4 Steps (QC): 6 12 Steps (QC): 6 Picking up an Object (QC): 6 (with vision care associate arm) Wheel 50 feet with 2 turns (QC: 9 Wheel 150 feet: 9 PT Plan Problem List Problem List: Activity Tolerance, Functional Strength, Safety, Balance, Gait, Transfer, Bed Mobility, ROM Treatment/Plan Treatment Plan: Continue Plan of Care Treatment Plan: Bed Mobility, Education, Functional Activity Jenae, Functional Strength, Gait, Safety, Therapeutic Exercise, Transfers Treatment Duration: Sep 04, 2022 Frequency: At least 5 of 7 days/Wk (IRF) Estimated Hrs Per Day: 1.5 hours per day Patient and/or Family Agrees t: Yes Safety Risks/Education Patient Education: Gait Training, Transfer Techniques, Reviewed Precautions, Correct Positioning, Reviewed Don/Doff Brace (donned a new sling family bought for her), Safety Issues Teaching Recipient: Patient Teaching Methods: Demonstration, Discussion Response to Teaching: Reinforcement Needed Time Time In: 1100 Time Out: 1200 DATE: Aug 15, 2022 Total Billed Treatment Time: 60 Total Billed Treatment 1 visit FA x2 30' EX x2 30' AYLA NATHAN PT Aug 15, 2022 12:01
--- NOTE | 2022-08-15 12:31 | ST Cognitive Linguistic Eval ---
Speech Evaluation-General Medical Diagnosis Debility Onset Date: Aug 14, 2022 Therapy Diagnosis Therapy Diagnosis: Intact (Baseline) Cognition Precautions Precautions: Fall Precautions/Isolations: Fall Prevention, Standard Precautions Referral Referring Physician: Dr. Arroyo Reason for Referral: Evaluation/Treatment Medical History Current History The patient is an 82 year old female with a past medical history of atrial fibrillation, HTN, HLD, hypothyroidism, GERD, and reactive airway disease, who was admitted to the acute rehabilitation unit following a fall with a closed head injury. Reviewed History: Yes Social History Current Living Status: Alone Speech PLF-Current Status Prior Level of Function The patient denied prior or current challenges with her speech, language, or cognition. The patient stated she feels her hearing intermittently impacts her comprehension. Subjective The patient was seated upright in her recliner, awake and alert, upon entrance to her room by the clinician. The patient greeted the clinician appropriately and was agreeable to participation in the cognitive linguistic assessment. Language Eval: Auditory Comprehends Simple Yes/No Ques: Functional Indent/Objects Multiple [place]: Functional Follows 1-Step Commands: Functional Follows General Conversations: Functional Language Eval: Verbal Language Completes Spontaneous Greeting: Functional Produces Auto, Serial Info: Functional Word Finding: Functional Requests Basic Needs: Functional States Basic Personal Info: Functional Language Evaluation: Reading The patient politely deferred reading tasks on this date due to right facial contusion. Additionally, the patient is right handed and unable to grasp a writing utensil appropriately at this time. Cognitive Patient Orientation The patient is independently oriented to self, location, month, day of the week, date, and year. Objective Cognitive Domain Attention: WNL Memory: WNL Problem Solving: Functional Composite Severity Rating: WNL Objective Formal/Standardized Tests [facility] Mental Status ([facility]) Results The patient demonstrated a result of +24/26 (clock drawing was unable to be completed) correlating to results within normal limits. Oral Motor/Speech Production The patient does not display dysarthria or apraxia of speech at this time. The patient is 100% intelligible in known and unknown contexts. Impression The patient displayed cognitive linguistic skills within normal limits and self- reported baseline. Speech-Plan Treatment Plan Speech Therapy Treatment Plan: Discontinue ST Treatment Duration: Aug 15, 2022 Frequency: 1 time per week Estimated Hrs Per Day: .5 hour per day Rehab Potential: Fair Safety Risks/Education Teaching Recipient: Patient Teaching Methods: Discussion Response to Teaching: Verbalize Understanding Education Topics Provided: Results, Recommendations, Plan of Care Time Speech Therapy Time In: 09:30 Speech Therapy Time Out: 10:00 DATE: Aug 15, 2022 Total Billed Time: 30 Billed Treatment Time 1, GOLDY UHTTON [facility] Aug 15, 2022 12:31
--- NOTE | 2022-08-15 13:47 | Physical Therapy Daily Note ---
PT Daily Note-Current Subjective Patient in bed pre-tx , reports no pain, agrees to PT. Pain Section J - Health Conditions 1. Rarely or not at all 2. Occasionally 3. Frequently 4. Almost constantly 8. Unable to answer Pain Effect on Sleep: 2 Pain Interference with Therapy: 2 Pain Interference w/Day-to-Day: 2 Appearance Patient in bed post-tx with nurse call, phone, tray, all needs met. Mental Status Patient Orientation: Person, Place, Situation Transfers SCALE: Activities may be completed with or without assistive devices. 7-Niouttiohn-ejxwhue completes the activity by him/herself with no assistance from a helper. 5-Set-up or Clean-up Assistance-helper sets up or cleans up; patient completes activity. [place] assists only prior to or following the activity. 4-Supervision or Touching Assistance-helper provides verbal cues and/or touching/steadying and/or contact guard assistance as patient completes activity. Assistance may be provided throughout the activity or intermittently. 3-Partial/Moderate Assistance-helper does LESS THAN HALF the effort. [place] lifts, holds or supports trunk or limbs, but provides less than half the effort. 2-Substantial/Maximal Assistance-helper does MORE THAN HALF the effort. [place] lifts or holds trunk or limbs and provides more than half the effort. 5-Dhenssrhd-bjhnsl does ALL the effort. Patient does none of the effort to complete the activity. Or, the assistance of 2 or more helpers is required for the patient to complete the activity. If activity was not attempted, code reason: 7-Patient Refused. 9-Not Applicable-not attempted and the patient did not perform the activity before the current illness, exacerbation or injury. 10-Not Attempted due to Environmental Limitations-(lack of equipment, weather restraints, etc.). 88-Not Attempted due to Medical Conditions or Safety Concerns. Weight Bearing Right Lower Extremity: Right Weight Bearing/Tolerated Left Lower Extremity: Left Weight Bearing/Tolerated PATIENT IS NON-WEIGHT BEARING IN HER UPPER RIGHT EXTREMITY Exercises Supine Ex: Ankle pumps, Quad Set, Heel Slides, Straight leg raise Supine Reps: 15 Treatments LE Strengthening Assessment Current Status: Fair Progress Patient's pain in arm slowly decreasing. Patient still has diminished strength in hip flexors and feet were a bit shaky this visit. Patient reported she was just feeling a little anxious and that's why her feet were shaking. PT Short Term Goals Short Term Goals Time Frame: Aug 21, 2022 Roll Left & Right: 4 (SBA) Sit to lyin (SBA) Lying to sitting on side of be: 4 (SBA) Sit to stand: 4 (CGA) Chair/zlw-sx-qlnax transfer: 4 (SBA) Toilet transfer: 4 (CGA) Car transfer: 4 (SBA) Walk 10 feet: 4 (SBA) Walk 50 feet with two turns: 4 (SBA) Walk 150 feet: 4 (SBA) Walking 10ft on uneven surface: 4 (SBA) 1 step (curb): 4 (SBA) 4 steps: 4 (CGA) 12 steps: 4 (CGA) Picking up objects: 4 (SBA) PT Burn Table Operator Goals Burn Table Operator Goals PT Burn Table Operator Goals Time Frame: Sep 04, 2022 Roll Left & Right (QC): 6 Sit to Lying (QC): 6 Lying-Sitting on Side/Bed(QC): 6 Sit to Stand (QC): 6 Chair/Twp-yd-Nqdir Xfer(QC): 6 Toilet Transfer (QC): 6 Car Transfer (QC): 6 Does the Patient Walk: Yes Walk 10 feet (QC): 6 Walk 50ft with 2 Turns (QC): 6 Walk 150 ft (QC): 6 Walking 10ft on Uneven Surface: 6 1 Step (curb) (QC): 6 4 Steps (QC): 6 12 Steps (QC): 6 Picking up an Object (QC): 6 (with weld fitter arm) Wheel 50 feet with 2 turns (QC: 9 Wheel 150 feet: 9 PT Plan Problem List Problem List: Activity Tolerance, Functional Strength, Safety, Balance, Gait, Transfer, Bed Mobility, ROM Treatment/Plan Treatment Plan: Continue Plan of Care Treatment Plan: Bed Mobility, Education, Functional Activity Jenae, Functional Strength, Gait, Safety, Therapeutic Exercise, Transfers Treatment Duration: Sep 04, 2022 Frequency: At least 5 of 7 days/Wk (IRF) Estimated Hrs Per Day: 1.5 hours per day Patient and/or Family Agrees t: Yes Safety Risks/Education Patient Education: Correct Positioning, Safety Issues Teaching Recipient: Patient Teaching Methods: Demonstration, Discussion Response to Teaching: Reinforcement Needed Time Time In: 1300 Time Out: 1315 DATE: Aug 15, 2022 Total Billed Treatment Time: 15 Total Billed Treatment 1 visit EX 15' PHILLY,JOANA PT Aug 15, 2022 13:47
[2022-08-15] MEDS: LACTULOSE SYRUP 10GM/15ML (ENULOSE) 30ML UDC PO PRN (17:58)
[2022-08-15 20:17] VITALS: BP 119/86
[2022-08-15] MEDS: MELATONIN 3 MG TABLET PO PRN (21:41)
[2022-08-15] MEDS: ACETAMINOPHEN 325 MG TABLET PO PRN (21:41)
[2022-08-15] MEDS: ROSUVASTATIN 5 MG (CRESTOR) TABLET PO SCH (21:41)
[2022-08-15] MEDS: MONTELUKAST 10 MG (SINGULAIR) TAB PO SCH (21:41)
--- NOTE | 2022-08-16 05:29 | PM&R Progress Note ---
Subjective HPI/CC On Admission Date Seen by Provider: Aug 16, 2022 Time Seen by Provider: 13:00 Subjective/Events-last exam 08/16/2022: Improved status Less pain Therapy going well Very slow recovery Right face edema improved 08/15/2022: No major issues Right eye less swollen Wrist pain noted so will give Oxycodone prior to therapy Used CPAP last night Tachy 100's Potassium 3.1 so ordered supplement Review of Systems General: Fatigue, Malaise Objective Exam Vital Signs Vital Signs Date Time Temp Pulse Resp B/P (MAP) Pulse Ox O2 Delivery O2 Flow Rate FiO2 08/16/22 09:00 Room Air 08/16/22 07:29 36.8 82 18 123/79 (94) 96 Capillary Refill : General Appearance: No Apparent Distress, WD/WN, Chronically ill HEENT: Pharynx Normal, Other (Right facial hematoma with edematous periorbital region) Neck: Full Range of Motion, Normal Inspection, Non Tender, Supple, Carotid Bruit Respiratory: Chest Non Tender, Lungs Clear, Normal Breath Sounds, No Accessory Muscle Use, No Respiratory Distress Cardiovascular: No Edema, No Gallop, No JVD, No Murmur, Normal Peripheral Pulses, Irregularly Irregular Gastrointestinal: Normal Bowel Sounds, No Organomegaly, No Pulsatile Mass, Non Tender, Soft Back: Normal Inspection, No CVA Tenderness, No Vertebral Tenderness Extremity: Normal Capillary Refill, Normal Inspection, Normal Range of Motion (Except right arm), Non Tender, No Calf Tenderness, No Pedal Edema Neurologic/Psychiatric: Alert, Oriented x3, Normal Mood/Affect, alligator shear operator II-XII Norm as Tested, Abnormal Gait, Motor Weakness (Right arm with sling) Skin: Normal Color, Warm/Dry Lymphatic: No Adenopathy Results/Procedures Lab Patient resulted labs reviewed. FIM Transfers Therapy Code Descriptions/Definitions Functional [place] Measure: 0=Not Assessed/NA 4=Minimal Assistance 1=Total Assistance 5=Supervision or Setup 2=Maximal Assistance 6=Modified [place] 3=Moderate Assistance 7=Complete IndependenceSCALE: Activities may be completed with or without assistive devices. 1-Cdegbprqgg-usvhvbk completes the activity by him/herself with no assistance from a helper. 5-Set-up or Clean-up Assistance-helper sets up or cleans up; patient completes activity. [place] assists only prior to or following the activity. 4-Supervision or Touching Assistance-helper provides verbal cues and/or touching/steadying and/or contact guard assistance as patient completes activity. Assistance may be provided throughout the activity or intermittently. 3-Partial/Moderate Assistance-helper does LESS THAN HALF the effort. [place] lifts, holds or supports trunk or limbs, but provides less than half the effort. 2-Substantial/Maximal Assistance-helper does MORE THAN HALF the effort. [place] lifts or holds trunk or limbs and provides more than half the effort. 5-Ckrijkipw-kunfnj does ALL the effort. Patient does none of the effort to complete the activity. Or, the assistance of 2 or more helpers is required for the patient to complete the activity. If activity was not attempted, code reason: 7-Patient Refused. 9-Not Applicable-not attempted and the patient did not perform the activity before the current illness, exacerbation or injury. 10-Not Attempted due to Environmental Limitations-(lack of equipment, weather restraints, etc.). 88-Not Attempted due to Medical Conditions or Safety Concerns. Roll Left to Right (QC): 3 Sit to Lying (QC): 3 Sit to Stand (QC): 4 (CGA) Chair/Cct-cj-Yppme Xfer(QC): 4 (CGA) Car Transfer (QC): 3 Gait Training Does the Patient Walk?: Yes Distance: 150'x2 Walk 10 feet (QC): 4 Walk 50 ft with 2 Turns(QC): 4 Walk 150 ft (QC): 4 Walking 10ft/uneven surface-QC: 4 Gait Persons Needed: 1 Gait Assistive Device: Walker Jono Wheelchair Training Does the Pt Use a Wheelchair?: No Wheel 50 ft with 2 turns (QC): 9 Wheel 150 ft (QC): 9 Type of Wheelchair: N/A Stair Training #of Steps: 1 1 Step (curb) (QC): 4 (CGA) 4 Steps (QC): 88 12 Steps (QC): 88 Balance Picking up an Object (QC): 4 (CGA with picker and sorter load and unload arm) ADL-Treatment Eating (QC): 5 Oral Hygiene (QC): 5 (set up seated at recliner) Shower/Bathe Self (QC): 3 (Min A with washing LUE) Upper Body Dressing (QC): 3 (Min A) Lower Body Dressing (QC): 3 (Min A with pant hike) On/Off Footwear (QC): 4 (SBA with gripper socks.) Toileting Hygiene (QC): 3 (Min A with pant hike) Assessment/Plan Assessment and Plan Assess & Plan/Chief Complaint A/P: 1. Closed head injury: Negative for intracranial injury on CT. Continue monito ring for neurological symptoms and observe facial swelling. 2. Difficulty balancing/ambulating: PT/OT 3. Anticoagulated status secondary to afib: Continue monitoring facial swelling for sign of acute bleed. Hold Xarelto until facial swelling has subsided and patient has improved balance and gait since risk of bleeding outweighs the benefits of stroke prophylaxis right now 4. HTN Continue treating on home meds. 5. Hypokalemia: K of 3.5. Start on oral potassium replacement. Recheck CMP in 1- 2 days. 6. Anemia: HGB of 11, HCT of 34. Continue monitoring and recheck HGB, HCT. 7. Elevated bilirubin: Bilirubin of 1.7. Continue monitoring for jaundice or liver dysfunction and recheck CMP. 8. UA Abnormalities: Ketones 1+, Crystals Present, Amorphous Sediment Moderate. Likely due to dehydration. Push fluids and possible recheck. 9. HLD 10. Hypothyroidism 11. GERD 12. Reactive airway disease 13. JAS on CPAP 14. Hypokalemia Plan: Hold anticoagulation Aggressive rehab Pain control Supportive care Incentive spirometer 08/15/2022: Replace potassium Oxycodone for severe pain 08/16/2022: Monitor pain BM regimen (1) Traumatic hematoma of face Status: Acute (2) Atrial fibrillation (3) Laceration of face Status: Acute (4) Chronic anticoagulation Status: Acute (5) Closed head injury Status: Acute (6) Closed right humeral fracture Status: Acute (7) Contusion of face Status: Acute (8) Fall on same level Status: Acute POLI HARGROVE DO Aug 16, 2022 05:29
[2022-08-16] MEDS: ACETAMINOPHEN 325 MG TABLET PO PRN (06:29)
[2022-08-16] MEDS: LEVOTHYROXINE 88 MCG (LEVOTHORID) TAB PO SCH (06:30)
[2022-08-16 07:29] VITALS: BP 123/79
--- NOTE | 2022-08-16 08:33 | Progress Note ---
ALYSSA JACKSON 08/16/22 0833: Progress Note S: Lucille Bar is an 82 yo female who was admitted to inpatient rehab from the emergency department for a closed head injury. The patient sustained a fall onto tiled bathroom floor with significant facial swelling; she has also suffered a separate recent fall resulting in humeral head fracture. The patient states she was previously independent of her ADLs until recent events, though she has had worsening balance for some time. She was admitted to inpatient rehab to monitor swelling and improve ambulation. The patient upon encounter today is seated on her bathroom chair. She reports pain to her right ribs; she notes this pain has been present since her first fall, and is not new. She states her right wrist pain has improved since yesterday and feels her new sling is improving her overall RUE pain. She ind icates her right hand discoloration is improved from yesterday. The patient does voice concern for constipation, as it has been over 2 days since she had a bowel movement. The patient denies any facial or eye pain and remarks she is able to open her eye more than yesterday. The patient denies any concerns regarding food or fluid intake, as well as any diarrhea or urinary symptoms. O: VS reveal elevated HR, otherwise stable: Temp 37.8 F, HR 82, RR 18, BP 123/79, SpO2 96% RA PE: Constitutional: Elderly white female, seated in chair. No acute distress. Calm and cooperative. Head: Swelling and ecchymosis to the right periorbital region, with suturing to the right temporal area superolateral to the right eye. Tenderness to palpation of the right periorbital region. Matting of the right eye with old discharge/lacrimation. No purulent drainage. MSK: RUE in sling. Right hand and wrist with mild darkening discoloration. Tenderness to palpation of the right wrist. Cardiovascular: Heart irregularly irregular. No murmurs. Pulmonary: LCTAB. No wheezes, crackles, rales, rhonchi. Peripheral Pulses: 2+ DP, radial bilaterally. Labs: None new A/P: 1. Closed head injury: Negative for intracranial injury on CT. Continue monitoring for neurological symptoms and observe facial swelling. 2. Difficulty balancing/ambulating: PT/OT. 3. Anticoagulated status secondary to afib: Continue monitoring facial swelling for sign of acute bleed. Discontinue Xarelto until facial swelling has subsided and patient has improved balance and gait. 4. HTN, HLD, Hypothyroidism, GERD, Reactive airway disease: Continue treating on home meds. 5. Hypokalemia: K of 3.5 08/14. K of 3.1 08/15. Start on oral potassium replacement and continue monitoring. 6. Anemia: HGB of 11, HCT of 34 08/14. HGB 9.8, HCT 31 08/15. Continue monitoring and recheck HGB, HCT. 7. Elevated bilirubin: Bilirubin of 1.7 08/14. Improved to 1.5 08/15. Continue monitoring for jaundice or liver dysfunction and recheck CMP. 8. UA Abnormalities: Ketones 1+, Crystals Present, Amorphous Sediment Moderate. Likely due to dehydration. Push fluids and possible recheck. 9. Constipation: Continue stool softener therapy. Consider enema. DAPHNE HARGROVE DO 08/16/22 1637: Supervisory-Addendum Brief Verification & Attestation Participated in pt care: history, MDM, physical Personally performed: exam, history, MDM, supervision of care Care discussed with: Medical Student Procedures: n/a Results interpretation: Verified all documentation Verification and Attestation of Medical Student E/M Service A medical student performed and documented this service in my presence. I reviewed and verified all information documented by the medical student and made modifications to such information, when appropriate. I personally performed the physical exam and medical decision making. Daphne Hargrove Aug 16, 2022,16:37 ALYSSA JACKSON Aug 16, 2022 08:33 DAPHNE HARGROVE DO Aug 16, 2022 16:37
--- NOTE | 2022-08-16 08:37 | Occupational Ther Daily Note ---
OT Current Status-Daily Note Subjective Pt in bathroom upon OT arrival, agreeable to OT Tx. Pt states she is not having the pain in her wrist like she was yesterday. Mental Status/Objective Attachments: Other-See Comments (YUMIKO ramirez) ADL-Treatment Therapy Code Descriptions/Definitions Functional [place] Measure: 0=Not Assessed/NA 4=Minimal Assistance 1=Total Assistance 5=Supervision or Setup 2=Maximal Assistance 6=Modified [place] 3=Moderate Assistance 7=Complete IndependenceSCALE: Activities may be completed with or without assistive devices. 3-Zmhcuioyep-tgiebpe completes the activity by him/herself with no assistance from a helper. 5-Set-up or Clean-up Assistance-helper sets up or cleans up; patient completes activity. [place] assists only prior to or following the activity. 4-Supervision or Touching Assistance-helper provides verbal cues and/or touching/steadying and/or contact guard assistance as patient completes activity. Assistance may be provided throughout the activity or intermittently. 3-Partial/Moderate Assistance-helper does LESS THAN HALF the effort. [place] lifts, holds or supports trunk or limbs, but provides less than half the effort. 2-Substantial/Maximal Assistance-helper does MORE THAN HALF the effort. [place] lifts or holds trunk or limbs and provides more than half the effort. 7-Akxywnutp-xydwyj does ALL the effort. Patient does none of the effort to complete the activity. Or, the assistance of 2 or more helpers is required for the patient to complete the activity. If activity was not attempted, code reason: 7-Patient Refused. 9-Not Applicable-not attempted and the patient did not perform the activity before the current illness, exacerbation or injury. 10-Not Attempted due to Environmental Limitations-(lack of equipment, weather restraints, etc.). 88-Not Attempted due to Medical Conditions or Safety Concerns. Other Treatment Pt in bathroom, required min A With toileting for pant hike on R side. Pt sat at sink to complete oral care and grooming, independently. Pt used QC to perform functional mobility to therapy gym, min A for balance, and moderate VCs for sequencing of using QC. Pt often picks up the cane and carries it in L hand instead of using it for support. In order to increase ROM RUE, pt completed x10 reps of the following AROM: elbow flexion/extension, wrist flexion/extension, and finger flexion/extension. Pt instructed she can complete these exercises in her room, she verbalized understanding. In order to increase LUE strength and activity tolerance, pt completed arm bike LUE only, x15 mins, 15 Watt resistance, no rest breaks. In order to increase fine motor strength and coordination, pt removed beads from moderate resistance (green) therputty using LUE. Pt returned to her room using QC, min A- CGA with mod-max VCs for sequencing of using QC. Pt required VCs for UE placement with sit to stand transfers. Pt completed toileting, min A with pant hike on R side. Post tx, pt in recliner, call light in reach and all needs met. Education OT Patient Education: Correct positioning, Energy conservation, Modified ADL techniques, Progress toward Goal/Update tx plan, Purpose of tx/functional activities, Rehab process Teaching Recipient: Patient Teaching Methods: Discussion Response to Teaching: Verbalize Understanding OT Short Term Goals Short Term Goals Time Frame: Aug 25, 2022 Shower/bathe self: 3 Lower body dressin OT Specimen Processor Goals Usp Goals Time Frame: Sep 15, 2022 Acute change in mental status: 0 Inattention: 0 Disorganized thinkin Altered level of consciousness: 0 Eating (QC): 6 Oral Hygiene (QC): 6 Toileting Hygiene (QC): 6 Shower/Bathe Self (QC): 6 Upper Body Dressing (QC): 6 Lower Body Dressing (QC): 6 On/Off Footwear (QC): 6 Additional Goals: 1-Demonstrate ADL Tasks, 2-Verbalize Understanding, 3- ImproveStrength/Jenae 1=Demonstrate adherence to instructed precautions during ADL tasks. 2=Patient will verbalize/demonstrate understanding of assistive devices/modifications for ADL. 3=Patient will improve strength/tolerance for activity to enable patient to perform ADL's. OT Education/Plan Problem List/Assessment Assessment: Decreased Activ Tolerance, Decreased UE Strength, Impaired Funct Balance, Impaired I ADL's, Impaired Self-Care Skills Discharge Recommendations Plan/Recommendations: Continue POC Comment OT recommends pt to discharge to [facility] vs SNF at discharge. Pt is at a high risk for falls, requiring VCs for UE placement with all transfers, and mod-max cues for sequencing of QC for functional mobility. Treatment Plan/Plan of Care Patient would benefit from OT for education, treatment and training to promote independence in ADL's, mobility, safety and/or upper extremity function for ADL's. Plan of Care: ADL Retraining, Functional Mobility, Group Exercise/Act as Ind, UE Funct Exercise/Act Treatment Duration: Sep 15, 2022 Frequency: At least 5 of 7 days/Wk (IRF) Estimated Hrs Per Day: 1.5 hours per day Agreement: Yes Rehab Potential: Fair Time Start Time: 07:45 Stop Time: 09:15 DATE: Aug 16, 2022 Total Time Billed (hr/min): 90 Billed Treatment Time 1, ADL 2 (30'), EX 2 (30'), FA 2 (30') RUI MENDOZA OT Aug 16, 2022 08:37
[2022-08-16] MEDS: CYANOCOBALAMIN 1,000 MCG (VITAMIN B-12) TABLET PO SCH (09:16)
[2022-08-16] MEDS: DOCUSATE SODIUM 100 MG (COLACE) CAP PO SCH ×2 (09:16→20:38)
[2022-08-16] MEDS: polyethylene glycoL POWDER 17 GM (MIRALAX) PACK PO SCH ×2 (09:16→20:38)
[2022-08-16] MEDS: SENNA W/DOCUSATE (SENOKOT S) TABLET PO SCH ×2 (09:17→20:38)
[2022-08-16] MEDS: OMEGA 3 (FISH OIL) 1000 MG CAP PO SCH (09:17)
[2022-08-16] MEDS: VITAMIN D3 25 MCG (1,000 UNITS) TABLET PO SCH (09:17)
[2022-08-16] MEDS: meTOproloL SUCCINATE 50 MG (TOPROL XL) TAB PO SCH ×2 (09:17→20:38)
[2022-08-16] MEDS: dilTIAZem120 MG (CARDIZEM CD) CAP PO SCH ×2 (09:18→20:38)
[2022-08-16] MEDS: VENlafaxine XR 75 MG (EFFEXOR XR) CAP PO SCH (09:18)
[2022-08-16] MEDS: KCL 10 MEQ TAB (MICRO K) PO SCH ×2 (09:18→17:14)
[2022-08-16] MEDS: PANTOPRAZOLE 40 MG (PROTONIX) TAB PO SCH (09:18)
--- NOTE | 2022-08-16 13:24 | Physical Therapy Daily Note ---
PT Daily Note-Current Subjective Pt sitting in recliner upon arrival. Pt agrees to PT. Pt reports vision is improving as bruising improves. Pain Numeric Pain Scale: 5-Moderate Pain Location: Right Location Body Site: Elbow Pain Description: Ache Section J - Health Conditions 1. Rarely or not at all 2. Occasionally 3. Frequently 4. Almost constantly 8. Unable to answer Pain Effect on Sleep: 2 Pain Interference with Therapy: 2 Pain Interference w/Day-to-Day: 2 Mental Status Patient Orientation: Person, Place, Time, Situation Transfers SCALE: Activities may be completed with or without assistive devices. 1-Tnxskwnwxu-gpkcndu completes the activity by him/herself with no assistance from a helper. 5-Set-up or Clean-up Assistance-helper sets up or cleans up; patient completes activity. [place] assists only prior to or following the activity. 4-Supervision or Touching Assistance-helper provides verbal cues and/or touching/steadying and/or contact guard assistance as patient completes activity. Assistance may be provided throughout the activity or intermittently. 3-Partial/Moderate Assistance-helper does LESS THAN HALF the effort. [place] lifts, holds or supports trunk or limbs, but provides less than half the effort. 2-Substantial/Maximal Assistance-helper does MORE THAN HALF the effort. [place] lifts or holds trunk or limbs and provides more than half the effort. 2-Pgfgnyqas-lhmxvv does ALL the effort. Patient does none of the effort to complete the activity. Or, the assistance of 2 or more helpers is required for the patient to complete the activity. If activity was not attempted, code reason: 7-Patient Refused. 9-Not Applicable-not attempted and the patient did not perform the activity before the current illness, exacerbation or injury. 10-Not Attempted due to Environmental Limitations-(lack of equipment, weather restraints, etc.). 88-Not Attempted due to Medical Conditions or Safety Concerns. Sit to Stand (QC): 5 Toilet Transfer (QC): 5 Weight Bearing Right Lower Extremity: Right Weight Bearing/Tolerated Left Lower Extremity: Left Weight Bearing/Tolerated PATIENT IS NON-WEIGHT BEARING IN HER UPPER RIGHT EXTREMITY Gait Training Does the Patient Walk?: Yes Distance: 125' x2, 15' x2 Walk 10 feet (QC): 4 Walk 50 ft with 2 Turns(QC): 4 Walk 150 ft (QC): 4 Gait Persons Needed: 1 Gait Assistive Device: Cane Large Base Quad Exercises NuStep Minutes: 15 NuStep Workload: 5 (R Ue is not used) Treatments TF to standing, declines need for BR. Pt amb. in hallway with focus on amb. w/proper use of LBQC. Pt uses NuStep followed by short RB. Pt completes stands on AirEx foam mat for balance practice. Pt able to stand 1 min each stand w/widened LOYDA. Pt amb. in hallway returning to room at end of tx with all needs met, call light in hand. Assessment Current Status: Good Progress Occasional VC needed for proper use of LBQC. PT Short Term Goals Short Term Goals Time Frame: Aug 21, 2022 Roll Left & Right: 4 (SBA) Sit to lyin (SBA) Lying to sitting on side of be: 4 (SBA) Sit to stand: 4 (CGA) Chair/jdi-vt-wbtar transfer: 4 (SBA) Toilet transfer: 4 (CGA) Car transfer: 4 (SBA) Walk 10 feet: 4 (SBA) Walk 50 feet with two turns: 4 (SBA) Walk 150 feet: 4 (SBA) Walking 10ft on uneven surface: 4 (SBA) 1 step (curb): 4 (SBA) 4 steps: 4 (CGA) 12 steps: 4 (CGA) Picking up objects: 4 (SBA) PT Skilled Nursing Goals Skilled Nursing Goals PT Steward/Stewardess Dining Room Goals Time Frame: Sep 04, 2022 Roll Left & Right (QC): 6 Sit to Lying (QC): 6 Lying-Sitting on Side/Bed(QC): 6 Sit to Stand (QC): 6 Chair/Dae-ss-Mbeak Xfer(QC): 6 Toilet Transfer (QC): 6 Car Transfer (QC): 6 Does the Patient Walk: Yes Walk 10 feet (QC): 6 Walk 50ft with 2 Turns (QC): 6 Walk 150 ft (QC): 6 Walking 10ft on Uneven Surface: 6 1 Step (curb) (QC): 6 4 Steps (QC): 6 12 Steps (QC): 6 Picking up an Object (QC): 6 (with family medicine physician arm) Wheel 50 feet with 2 turns (QC: 9 Wheel 150 feet: 9 PT Plan Problem List Problem List: Balance, Gait Treatment/Plan Treatment Plan: Continue Plan of Care Treatment Plan: Bed Mobility, Education, Functional Activity Jenae, Functional Strength, Gait, Safety, Therapeutic Exercise, Transfers Treatment Duration: Sep 04, 2022 Frequency: At least 5 of 7 days/Wk (IRF) Estimated Hrs Per Day: 1.5 hours per day Patient and/or Family Agrees t: Yes Safety Risks/Education Patient Education: Gait Training, Correct Positioning, Safety Issues Teaching Recipient: Patient Teaching Methods: Discussion Response to Teaching: Verbalize Understanding Time Time In: 1045 Time Out: 1200 DATE: Aug 16, 2022 Total Billed Treatment Time: 75 Total Billed Treatment 1, GT x2 (30m), EX x2 (30m) & FA (15m) GENO GARLAND MARINE OPERATIONS COORDINATOR Aug 16, 2022 13:24
[2022-08-16] MEDS ORDERED: PATIENT MAY USE OWN MED,SINGLE MED PO SCH (14:00)
--- NOTE | 2022-08-16 14:13 | Physical Therapy Daily Note ---
PT Daily Note-Current Subjective Pt sitting in recliner upon arrival. Pt agrees to PT but asks to use BR first and reports fatigue. Pain Numeric Pain Scale: 5-Moderate Pain Location: Right Location Body Site: Elbow Pain Description: Ache Section J - Health Conditions 1. Rarely or not at all 2. Occasionally 3. Frequently 4. Almost constantly 8. Unable to answer Pain Effect on Sleep: 2 Pain Interference with Therapy: 2 Pain Interference w/Day-to-Day: 2 Mental Status Patient Orientation: Person, Place, Time, Situation Attachments: Other-See Comments (Sling for R UE) Transfers SCALE: Activities may be completed with or without assistive devices. 2-Mysazzwmnv-dbfloqy completes the activity by him/herself with no assistance from a helper. 5-Set-up or Clean-up Assistance-helper sets up or cleans up; patient completes activity. [place] assists only prior to or following the activity. 4-Supervision or Touching Assistance-helper provides verbal cues and/or t ouching/steadying and/or contact guard assistance as patient completes activity. Assistance may be provided throughout the activity or intermittently. 3-Partial/Moderate Assistance-helper does LESS THAN HALF the effort. [place] lifts, holds or supports trunk or limbs, but provides less than half the effort. 2-Substantial/Maximal Assistance-helper does MORE THAN HALF the effort. [place] lifts or holds trunk or limbs and provides more than half the effort. 0-Xpwqhxfky-akeluv does ALL the effort. Patient does none of the effort to complete the activity. Or, the assistance of 2 or more helpers is required for the patient to complete the activity. If activity was not attempted, code reason: 7-Patient Refused. 9-Not Applicable-not attempted and the patient did not perform the activity before the current illness, exacerbation or injury. 10-Not Attempted due to Environmental Limitations-(lack of equipment, weather restraints, etc.). 88-Not Attempted due to Medical Conditions or Safety Concerns. Sit to Stand (QC): 5 Toilet Transfer (QC): 5 Weight Bearing Right Lower Extremity: Right Weight Bearing/Tolerated Left Lower Extremity: Left Weight Bearing/Tolerated PATIENT IS NON-WEIGHT BEARING IN HER UPPER RIGHT EXTREMITY Gait Training Does the Patient Walk?: Yes Distance: 10' x2 Walk 10 feet (QC): 5 Gait Assistive Device: Cane Large Base Quad Treatments TF to standing and amb. to BR. After toileting, pt amb back to recliner to rest. Pt is repositioned to comfort. Assessment Current Status: Good Progress Pt rachelle. tx well but reports fatigue this afternoon. PT Short Term Goals Short Term Goals Time Frame: Aug 21, 2022 Roll Left & Right: 4 (SBA) Sit to lyin (SBA) Lying to sitting on side of be: 4 (SBA) Sit to stand: 4 (CGA) Chair/uan-bm-auhxm transfer: 4 (SBA) Toilet transfer: 4 (CGA) Car transfer: 4 (SBA) Walk 10 feet: 4 (SBA) Walk 50 feet with two turns: 4 (SBA) Walk 150 feet: 4 (SBA) Walking 10ft on uneven surface: 4 (SBA) 1 step (curb): 4 (SBA) 4 steps: 4 (CGA) 12 steps: 4 (CGA) Picking up objects: 4 (SBA) PT Pumping Supervisor Goals Pumping Supervisor Goals PT [facility] Goals Time Frame: Sep 04, 2022 Roll Left & Right (QC): 6 Sit to Lying (QC): 6 Lying-Sitting on Side/Bed(QC): 6 Sit to Stand (QC): 6 Chair/Ysq-gm-Oikeu Xfer(QC): 6 Toilet Transfer (QC): 6 Car Transfer (QC): 6 Does the Patient Walk: Yes Walk 10 feet (QC): 6 Walk 50ft with 2 Turns (QC): 6 Walk 150 ft (QC): 6 Walking 10ft on Uneven Surface: 6 1 Step (curb) (QC): 6 4 Steps (QC): 6 12 Steps (QC): 6 Picking up an Object (QC): 6 (with ground school instructor arm) Wheel 50 feet with 2 turns (QC: 9 Wheel 150 feet: 9 PT Plan Treatment/Plan Treatment Plan: Continue Plan of Care Treatment Plan: Bed Mobility, Education, Functional Activity Jenae, Functional Strength, Gait, Safety, Therapeutic Exercise, Transfers Treatment Duration: Sep 04, 2022 Frequency: At least 5 of 7 days/Wk (IRF) Estimated Hrs Per Day: 1.5 hours per day Patient and/or Family Agrees t: Yes Time Time In: 1300 Time Out: 1315 DATE: Aug 16, 2022 Total Billed Treatment Time: 15 Total Billed Treatment 1, FA (15m) GENO GARLAND LIME BOILER Aug 16, 2022 14:13
[2022-08-16] MEDS: COQ10 100 MG PO SCH (15:12)
[2022-08-16 20:09] VITALS: BP 118/77
[2022-08-16] MEDS: MONTELUKAST 10 MG (SINGULAIR) TAB PO SCH (20:38)
[2022-08-16] MEDS: ROSUVASTATIN 5 MG (CRESTOR) TABLET PO SCH (20:38)
[2022-08-16] MEDS: MELATONIN 3 MG TABLET PO PRN (22:39)
--- NOTE | 2022-08-17 05:14 | PM&R Progress Note ---
Subjective HPI/CC On Admission Date Seen by Provider: Aug 17, 2022 Time Seen by Provider: 11:00 Subjective/Events-last exam 08/17/2022: No major issues Pain controlled No falls In a good mood Slept well Checked meds 08/16/2022: Improved status Less pain Therapy going well Very slow recovery Right face edema improved 08/15/2022: No major issues Right eye less swollen Wrist pain noted so will give Oxycodone prior to therapy Used CPAP last night Tachy 100's Potassium 3.1 so ordered supplement Review of Systems General: Fatigue, Malaise Musculoskeletal: arm pain Objective Exam Vital Signs Vital Signs Date Time Temp Pulse Resp B/P (MAP) Pulse Ox O2 Delivery O2 Flow Rate FiO2 08/17/22 09:00 Room Air 08/17/22 07:22 35.9 89 18 135/75 (95) 93 Capillary Refill : General Appearance: No Apparent Distress, WD/WN, Chronically ill HEENT: Pharynx Normal, Other (Right facial hematoma with edematous periorbital region) Neck: Full Range of Motion, Normal Inspection, Non Tender, Supple, Carotid Bruit Respiratory: Chest Non Tender, Lungs Clear, Normal Breath Sounds, No Accessory Muscle Use, No Respiratory Distress Cardiovascular: No Edema, No Gallop, No JVD, No Murmur, Normal Peripheral Pulses, Irregularly Irregular Gastrointestinal: Normal Bowel Sounds, No Organomegaly, No Pulsatile Mass, Non Tender, Soft Back: Normal Inspection, No CVA Tenderness, No Vertebral Tenderness Extremity: Normal Capillary Refill, Normal Inspection, Normal Range of Motion (Except right arm), Non Tender, No Calf Tenderness, No Pedal Edema Neurologic/Psychiatric: Alert, Oriented x3, Normal Mood/Affect, director corporate compliance II-XII Norm as Tested, Abnormal Gait, Motor Weakness (Right arm with sling) Skin: Normal Color, Warm/Dry Lymphatic: No Adenopathy Results/Procedures Lab Patient resulted labs reviewed. FIM Transfers Therapy Code Descriptions/Definitions Functional [place] Measure: 0=Not Assessed/NA 4=Minimal Assistance 1=Total Assistance 5=Supervision or Setup 2=Maximal Assistance 6=Modified [place] 3=Moderate Assistance 7=Complete IndependenceSCALE: Activities may be completed with or without assistive devices. 9-Shvqsyyjjc-dogeufi completes the activity by him/herself with no assistance from a helper. 5-Set-up or Clean-up Assistance-helper sets up or cleans up; patient completes activity. [place] assists only prior to or following the activity. 4-Supervision or Touching Assistance-helper provides verbal cues and/or touching/steadying and/or contact guard assistance as patient completes activity. Assistance may be provided throughout the activity or intermittently. 3-Partial/Moderate Assistance-helper does LESS THAN HALF the effort. [place] lifts, holds or supports trunk or limbs, but provides less than half the effort. 2-Substantial/Maximal Assistance-helper does MORE THAN HALF the effort. [place] lifts or holds trunk or limbs and provides more than half the effort. 9-Yqwypfuqd-zauthe does ALL the effort. Patient does none of the effort to co mplete the activity. Or, the assistance of 2 or more helpers is required for the patient to complete the activity. If activity was not attempted, code reason: 7-Patient Refused. 9-Not Applicable-not attempted and the patient did not perform the activity before the current illness, exacerbation or injury. 10-Not Attempted due to Environmental Limitations-(lack of equipment, weather restraints, etc.). 88-Not Attempted due to Medical Conditions or Safety Concerns. Roll Left to Right (QC): 3 Sit to Lying (QC): 3 Sit to Stand (QC): 5 Chair/Mbt-dt-Wswik Xfer(QC): 4 (CGA) Car Transfer (QC): 3 Gait Training Does the Patient Walk?: Yes Distance: 10' x2 Walk 10 feet (QC): 5 Walk 50 ft with 2 Turns(QC): 4 Walk 150 ft (QC): 4 Walking 10ft/uneven surface-QC: 4 Gait Persons Needed: 1 Gait Assistive Device: Cane Large Base Quad Wheelchair Training Does the Pt Use a Wheelchair?: No Wheel 50 ft with 2 turns (QC): 9 Wheel 150 ft (QC): 9 Type of Wheelchair: N/A Stair Training #of Steps: 1 1 Step (curb) (QC): 4 (CGA) 4 Steps (QC): 88 12 Steps (QC): 88 Balance Picking up an Object (QC): 4 (CGA with doper operator arm) ADL-Treatment Eating (QC): 5 Oral Hygiene (QC): 5 (set up seated at recliner) Shower/Bathe Self (QC): 3 (Min A with washing LUE) Upper Body Dressing (QC): 3 (Min A) Lower Body Dressing (QC): 3 (Min A with pant hike) On/Off Footwear (QC): 4 (SBA with gripper socks.) Toileting Hygiene (QC): 3 (Min A with pant hike) Assessment/Plan Assessment and Plan Assess & Plan/Chief Complaint A/P: 1. Closed head injury: Negative for intracranial injury on CT. Continue monitoring for neurological symptoms and observe facial swelling. 2. Difficulty balancing/ambulating: PT/OT 3. Anticoagulated status secondary to afib: Continue monitoring facial swelling for sign of acute bleed. Hold Xarelto until facial swelling has subsided and patient has improved balance and gait since risk of bleeding outweighs the benefits of stroke prophylaxis right now 4. HTN Continue treating on home meds. 5. Hypokalemia: K of 3.5. Start on oral potassium replacement. Recheck CMP in 1- 2 days. 6. Anemia: HGB of 11, HCT of 34. Continue monitoring and recheck HGB, HCT. 7. Elevated bilirubin: Bilirubin of 1.7. Continue monitoring for jaundice or liver dysfunction and recheck CMP. 8. UA Abnormalities: Ketones 1+, Crystals Present, Amorphous Sediment Moderate. Likely due to dehydration. Push fluids and possible recheck. 9. HLD 10. Hypothyroidism 11. GERD 12. Reactive airway disease 13. JAS on CPAP 14. Hypokalemia Plan: Hold anticoagulation Aggressive rehab Pain control Supportive care Incentive spirometer 08/15/2022: Replace potassium Oxycodone for severe pain 08/16/2022: Monitor pain BM regimen 08/17/2022: Supportive care BM regimen (1) Traumatic hematoma of face Status: Acute (2) Atrial fibrillation (3) Laceration of face Status: Acute (4) Chronic anticoagulation Status: Acute (5) Closed head injury Status: Acute (6) Closed right humeral fracture Status: Acute (7) Contusion of face Status: Acute (8) Fall on same level Status: Acute POLI HARGROVE DO Aug 17, 2022 05:14
[2022-08-17] MEDS: LEVOTHYROXINE 88 MCG (LEVOTHORID) TAB PO SCH (06:31)
--- NOTE | 2022-08-17 07:21 | Occupational Ther Daily Note ---
OT Current Status-Daily Note Subjective Pt sleeping, woke easily to name. Pt agrees to therapy. No c/o pain. Mental Status/Objective Patient Orientation: Person, Place, Time, Situation Attachments: Other-See Comments (Silvia ramirez) ADL-Treatment CGA for supine to EOB. Pt required time to stand prior to ambulating to bathroom. Using quadcane, pt able to ambulate to bathroom with CGA for safety. SBA for toileting and toilet transfer. Pt stood at sink to wash hands, SBA. Pt required set up for meal then used regular utensils to eat. Pt declined changing clothing. Pt ambulated to bathroom using FWW with SBA. SBA to stand at sink while completing oral care by self. After session, pt sitting in recliner with call light/phone in reach. All needs met in room. Therapy Code Descriptions/Definitions Functional [place] Measure: 0=Not Assessed/NA 4=Minimal Assistance 1=Total Assistance 5=Supervision or Setup 2=Maximal Assistance 6=Modified [place] 3=Moderate Assistance 7=Complete IndependenceSCALE: Activities may be completed with or without assistive devices. 3-Rctafxjpnz-yhyxtgf completes the activity by him/herself with no assistance from a helper. 5-Set-up or Clean-up Assistance-helper sets up or cleans up; patient completes activity. [place] assists only prior to or following the activity. 4-Supervision or Touching Assistance-helper provides verbal cues and/or touching/steadying and/or contact guard assistance as patient completes activity. Assistance may be provided throughout the activity or intermittently. 3-Partial/Moderate Assistance-helper does LESS THAN HALF the effort. [place] lifts, holds or supports trunk or limbs, but provides less than half the effort. 2-Substantial/Maximal Assistance-helper does MORE THAN HALF the effort. [place] lifts or holds trunk or limbs and provides more than half the effort. 6-Exmsqjisr-aenpzb does ALL the effort. Patient does none of the effort to complete the activity. Or, the assistance of 2 or more helpers is required for the patient to complete the activity. If activity was not attempted, code reason: 7-Patient Refused. 9-Not Applicable-not attempted and the patient did not perform the activity before the current illness, exacerbation or injury. 10-Not Attempted due to Environmental Limitations-(lack of equipment, weather restraints, etc.). 88-Not Attempted due to Medical Conditions or Safety Concerns. Eating (QC): 5 Oral Hygiene (QC): 4 Toileting Hygiene (QC): 4 Toilet Transfer (QC): 4 OT Short Term Goals Short Term Goals Time Frame: Aug 25, 2022 Shower/bathe self: 3 Lower body dressin OT Mcfp Goals Mcfp Goals Time Frame: Sep 15, 2022 Acute change in mental status: 0 Inattention: 0 Disorganized thinkin Altered level of consciousness: 0 Eating (QC): 6 Oral Hygiene (QC): 6 Toileting Hygiene (QC): 6 Shower/Bathe Self (QC): 6 Upper Body Dressing (QC): 6 Lower Body Dressing (QC): 6 On/Off Footwear (QC): 6 Additional Goals: 1-Demonstrate ADL Tasks, 2-Verbalize Understanding, 3- ImproveStrength/Jenae 1=Demonstrate adherence to instructed precautions during ADL tasks. 2=Patient will verbalize/demonstrate understanding of assistive devices/modifications for ADL. 3=Patient will improve strength/tolerance for activity to enable patient to perform ADL's. OT Education/Plan Problem List/Assessment Assessment: Decreased Activ Tolerance, Impaired Self-Care Skills, Restricted Funct UE ROM Discharge Recommendations Plan/Recommendations: Continue POC Treatment Plan/Plan of Care Patient would benefit from OT for education, treatment and training to promote independence in ADL's, mobility, safety and/or upper extremity function for ADL's. Plan of Care: ADL Retraining, Functional Mobility, Group Exercise/Act as Ind, UE Funct Exercise/Act Treatment Duration: Sep 15, 2022 Frequency: At least 5 of 7 days/Wk (IRF) Estimated Hrs Per Day: 1.5 hours per day Agreement: Yes Rehab Potential: Fair Time Start Time: 06:45 Stop Time: 07:45 DATE: Aug 17, 2022 Total Time Billed (hr/min): 60 Billed Treatment Time 1 visit-ADL 4 (60 min) KAROLINA GUTIERREZ Aug 17, 2022 07:21
[2022-08-17 07:22] VITALS: BP 135/75
[2022-08-17] MEDS: DOCUSATE SODIUM 100 MG (COLACE) CAP PO SCH ×2 (09:05→20:03)
[2022-08-17] MEDS: OMEGA 3 (FISH OIL) 1000 MG CAP PO SCH (09:05)
[2022-08-17] MEDS: meTOproloL SUCCINATE 50 MG (TOPROL XL) TAB PO SCH ×2 (09:06→20:03)
[2022-08-17] MEDS: VITAMIN D3 25 MCG (1,000 UNITS) TABLET PO SCH (09:06)
[2022-08-17] MEDS: KCL 10 MEQ TAB (MICRO K) PO SCH ×2 (09:06→18:33)
[2022-08-17] MEDS: CYANOCOBALAMIN 1,000 MCG (VITAMIN B-12) TABLET PO SCH (09:06)
[2022-08-17] MEDS: dilTIAZem120 MG (CARDIZEM CD) CAP PO SCH ×2 (09:06→20:02)
[2022-08-17] MEDS: VENlafaxine XR 75 MG (EFFEXOR XR) CAP PO SCH (09:06)
[2022-08-17] MEDS: PANTOPRAZOLE 40 MG (PROTONIX) TAB PO SCH (09:06)
[2022-08-17] MEDS: polyethylene glycoL POWDER 17 GM (MIRALAX) PACK PO SCH ×2 (09:12→20:57)
[2022-08-17] MEDS: SENNA W/DOCUSATE (SENOKOT S) TABLET PO SCH ×2 (09:12→20:03)
[2022-08-17] MEDS: COQ10 100 MG PO SCH (09:51)
--- NOTE | 2022-08-17 11:30 | Physical Therapy Daily Note ---
PT Daily Note-Current Subjective States that she is feeling okay. Pain Numeric Pain Scale: 4 Location: Right Location Body Site: Side Section J - Health Conditions 1. Rarely or not at all 2. Occasionally 3. Frequently 4. Almost constantly 8. Unable to answer Pain Effect on Sleep: 2 Pain Interference with Therapy: 2 Pain Interference w/Day-to-Day: 2 Transfers SCALE: Activities may be completed with or without assistive devices. 2-Ubwktsqmrq-rmafaif completes the activity by him/herself with no assistance from a helper. 5-Set-up or Clean-up Assistance-helper sets up or cleans up; patient completes activity. [place] assists only prior to or following the activity. 4-Supervision or Touching Assistance-helper provides verbal cues and/or touching/steadying and/or contact guard assistance as patient completes activity. Assistance may be provided throughout the activity or intermittently. 3-Partial/Moderate Assistance-helper does LESS THAN HALF the effort. [place] lifts, holds or supports trunk or limbs, but provides less than half the effort. 2-Substantial/Maximal Assistance-helper does MORE THAN HALF the effort. [place] lifts or holds trunk or limbs and provides more than half the effort. 1-Nfoubplye-okmvzt does ALL the effort. Patient does none of the effort to complete the activity. Or, the assistance of 2 or more helpers is required for the patient to complete the activity. If activity was not attempted, code reason: 7-Patient Refused. 9-Not Applicable-not attempted and the patient did not perform the activity before the current illness, exacerbation or injury. 10-Not Attempted due to Environmental Limitations-(lack of equipment, weather restraints, etc.). 88-Not Attempted due to Medical Conditions or Safety Concerns. Sit to Stand (QC): 4 Weight Bearing Right Lower Extremity: Right Weight Bearing/Tolerated Left Lower Extremity: Left Weight Bearing/Tolerated PATIENT IS NON-WEIGHT BEARING IN HER UPPER RIGHT EXTREMITY Gait Training Does the Patient Walk?: Yes Distance: 100' x 2 Walk 10 feet (QC): 5 Walk 50 ft with 2 Turns(QC): 5 Gait Persons Needed: 1 Gait Assistive Device: Cane Small Base Quad The patient had gait instability during all gait activities. Exercises Seated Therapy Exercises: LE Protocol Seated Reps: [address] Ex=Flex, Abd, Ext, Marching, Sit to Stand NuStep Minutes: 15 NuStep Workload: 5 Neuromuscular Standing balance activities on air-ex pad Assessment Current Status: Excellent Progress Patient continues to have an increased fall risk secondary to dynamic balance limitations. PT Short Term Goals Short Term Goals Time Frame: Aug 21, 2022 Roll Left & Right: 4 (SBA) Sit to lyin (SBA) Lying to sitting on side of be: 4 (SBA) Sit to stand: 4 (CGA) Chair/wjk-pj-pcqbe transfer: 4 (SBA) Toilet transfer: 4 (CGA) Car transfer: 4 (SBA) Walk 10 feet: 4 (SBA) Walk 50 feet with two turns: 4 (SBA) Walk 150 feet: 4 (SBA) Walking 10ft on uneven surface: 4 (SBA) 1 step (curb): 4 (SBA) 4 steps: 4 (CGA) 12 steps: 4 (CGA) Picking up objects: 4 (SBA) PT Shelter Goals Body Die Maker Goals PT Shelter Goals Time Frame: Sep 04, 2022 Roll Left & Right (QC): 6 Sit to Lying (QC): 6 Lying-Sitting on Side/Bed(QC): 6 Sit to Stand (QC): 6 Chair/Zae-ei-Eozrf Xfer(QC): 6 Toilet Transfer (QC): 6 Car Transfer (QC): 6 Does the Patient Walk: Yes Walk 10 feet (QC): 6 Walk 50ft with 2 Turns (QC): 6 Walk 150 ft (QC): 6 Walking 10ft on Uneven Surface: 6 1 Step (curb) (QC): 6 4 Steps (QC): 6 12 Steps (QC): 6 Picking up an Object (QC): 6 (with laboratory immunologist arm) Wheel 50 feet with 2 turns (QC: 9 Wheel 150 feet: 9 PT Plan Treatment/Plan Treatment Plan: Continue Plan of Care Treatment Plan: Bed Mobility, Education, Functional Activity Jenae, Functional Strength, Gait, Safety, Therapeutic Exercise, Transfers Treatment Duration: Sep 04, 2022 Frequency: At least 5 of 7 days/Wk (IRF) Estimated Hrs Per Day: 1.5 hours per day Patient and/or Family Agrees t: Yes Time Time In: 0800 Time Out: 0900 DATE: Aug 17, 2022 Total Billed Treatment Time: 60 Total Billed Treatment 1, EX x 30, NM x 15, GT x 15 ALISON MARLEY PT Aug 17, 2022 11:30
--- NOTE | 2022-08-17 12:28 | Therapy Group Daily Note ---
Therapy Daily Group Note Patient Education Topic Other List Below (Nutrition/food safety) Exercises Fine Motor, UE Exercise Session Ratio (pt:therapist): 2:7 Goal of Session: UE/LE Strengthing, Other (list) (Nutrition/food safety) Goal Met for this Session: Yes Pt Benefit of Group: Contributions to Others, F/U Use of Strategies @Home, Increased Functional Safety, Increased Functional Strength, Improved Cognition, Recognition of Peers, Socialization Other/Notes Pt ambulated using FWW with CGA to [facility] for OT/PT group. Group consisted of introductions (name,place living), fine motor coordination tasks with B UE strengthening against gravity, safe transfers to/from table, educational topics on nutrition and food safety. Pt introduced self appropriately and actively listened to peers. Pt verbalized own experiences and strategies for educational topics. Tolerated all activities well. After session, pt lying in bed with call light/phone in reach. All needs met in room. Start Time: 11:00 Stop Time: 12:15 Total Billed Treatment Time: 75 Total Billed Treatment 1-[facility] KAROLINA GUTIERREZ Aug 17, 2022 12:28
[2022-08-17 19:29] VITALS: BP 119/60
[2022-08-17] MEDS: ROSUVASTATIN 5 MG (CRESTOR) TABLET PO SCH (20:02)
[2022-08-17] MEDS: MONTELUKAST 10 MG (SINGULAIR) TAB PO SCH (20:03)
[2022-08-17] MEDS: MELATONIN 3 MG TABLET PO PRN (20:03)
--- NOTE | 2022-08-18 06:07 | PM&R Progress Note ---
Subjective HPI/CC On Admission Date Seen by Provider: Aug 18, 2022 Time Seen by Provider: 11:30 Subjective/Events-last exam 08/18/2022: Doing much better Daughter in law is at bedside from [place] Son wants to see Dr Steinberg when he sees patient on Sunday Refresh tears for right eye is needed Large BM today 08/17/2022: No major issues Pain controlled No falls In a good mood Slept well Checked meds 08/16/2022: Improved status Less pain Therapy going well Very slow recovery Right face edema improved 08/15/2022: No major issues Right eye less swollen Wrist pain noted so will give Oxycodone prior to therapy Used CPAP last night Tachy 100's Potassium 3.1 so ordered supplement Review of Systems General: Fatigue, Malaise Objective Exam Vital Signs Vital Signs Date Time Temp Pulse Resp B/P (MAP) Pulse Ox O2 Delivery O2 Flow Rate FiO2 08/18/22 09:00 Room Air 08/18/22 07:54 36.1 86 22 128/75 (92) 94 Capillary Refill : General Appearance: No Apparent Distress, WD/WN, Chronically ill HEENT: Pharynx Normal, Other (Right facial hematoma with edematous periorbital region) Neck: Full Range of Motion, Normal Inspection, Non Tender, Supple, Carotid Bruit Respiratory: Chest Non Tender, Lungs Clear, Normal Breath Sounds, No Accessory Muscle Use, No Respiratory Distress Cardiovascular: No Edema, No Gallop, No JVD, No Murmur, Normal Peripheral Pulses, Irregularly Irregular Gastrointestinal: Normal Bowel Sounds, No Organomegaly, No Pulsatile Mass, Non Tender, Soft Back: Normal Inspection, No CVA Tenderness, No Vertebral Tenderness Extremity: Normal Capillary Refill, Normal Inspection, Normal Range of Motion (Except right arm), Non Tender, No Calf Tenderness, No Pedal Edema Neurologic/Psychiatric: Alert, Oriented x3, Normal Mood/Affect, office manager executive assistant II-XII Norm as Tested, Abnormal Gait, Motor Weakness (Right arm with sling) Skin: Normal Color, Warm/Dry Lymphatic: No Adenopathy Results/Procedures Lab Patient resulted labs reviewed. FIM Transfers Therapy Code Descriptions/Definitions Functional [place] Measure: 0=Not Assessed/NA 4=Minimal Assistance 1=Total Assistance 5=Supervision or Setup 2=Maximal Assistance 6=Modified [place] 3=Moderate Assistance 7=Complete IndependenceSCALE: Activities may be completed with or without assistive devices. 4-Bhktowygmm-ulpqpjx completes the activity by him/herself with no assistance from a helper. 5-Set-up or Clean-up Assistance-helper sets up or cleans up; patient completes activity. [place] assists only prior to or following the activity. 4-Supervision or Touching Assistance-helper provides verbal cues and/or touching/steadying and/or contact guard assistance as patient completes activity. Assistance may be provided throughout the activity or intermittently. 3-Partial/Moderate Assistance-helper does LESS THAN HALF the effort. [place] lifts, holds or supports trunk or limbs, but provides less than half the effort. 2-Substantial/Maximal Assistance-helper does MORE THAN HALF the effort. [place] lifts or holds trunk or limbs and provides more than half the effort. 7-Nqyxyikaf-gewpfo does ALL the effort. Patient does none of the effort to complete the activity. Or, the assistance of 2 or more helpers is required for the patient to complete the activity. If activity was not attempted, code reason: 7-Patient Refused. 9-Not Applicable-not attempted and the patient did not perform the activity before the current illness, exacerbation or injury. 10-Not Attempted due to Environmental Limitations-(lack of equipment, weather restraints, etc.). 88-Not Attempted due to Medical Conditions or Safety Concerns. Roll Left to Right (QC): 3 Sit to Lying (QC): 3 Sit to Stand (QC): 4 Chair/Brl-sl-Jknvo Xfer(QC): 4 (CGA) Car Transfer (QC): 3 Gait Training Does the Patient Walk?: Yes Distance: 100' x 2 Walk 10 feet (QC): 5 Walk 50 ft with 2 Turns(QC): 5 Walk 150 ft (QC): 4 Walking 10ft/uneven surface-QC: 4 Gait Persons Needed: 1 Gait Assistive Device: Cane Small Base Quad Wheelchair Training Does the Pt Use a Wheelchair?: No Wheel 50 ft with 2 turns (QC): 9 Wheel 150 ft (QC): 9 Type of Wheelchair: N/A Stair Training #of Steps: 1 1 Step (curb) (QC): 4 (CGA) 4 Steps (QC): 88 12 Steps (QC): 88 Balance Picking up an Object (QC): 4 (CGA with quality consultant arm) ADL-Treatment Eating (QC): 5 Oral Hygiene (QC): 4 Shower/Bathe Self (QC): 3 (Min A with washing LUE) Upper Body Dressing (QC): 3 (Min A) Lower Body Dressing (QC): 3 (Min A with pant hike) On/Off Footwear (QC): 4 (SBA with gripper socks.) Toileting Hygiene (QC): 4 Toilet Transfer (QC): 4 Assessment/Plan Assessment and Plan Assess & Plan/Chief Complaint A/P: 1. Closed head injury: Negative for intracranial injury on CT. Continue monitoring for neurological symptoms and observe facial swelling. 2. Difficulty balancing/ambulating: PT/OT 3. Anticoagulated status secondary to afib: Continue monitoring facial swelling for sign of acute bleed. Hold Xarelto until facial swelling has subsided and patient has improved balance and gait since risk of bleeding outweighs the benefits of stroke prophylaxis right now 4. HTN Continue treating on home meds. 5. Hypokalemia: K of 3.5. Start on oral potassium replacement. Recheck CMP in 1- 2 days. 6. Anemia: HGB of 11, HCT of 34. Continue monitoring and recheck HGB, HCT. 7. Elevated bilirubin: Bilirubin of 1.7. Continue monitoring for jaundice or liver dysfunction and recheck CMP. 8. UA Abnormalities: Ketones 1+, Crystals Present, Amorphous Sediment Moderate. Likely due to dehydration. Push fluids and possible recheck. 9. HLD 10. Hypothyroidism 11. GERD 12. Reactive airway disease 13. JAS on CPAP 14. Hypokalemia Plan: Hold anticoagulation Aggressive rehab Pain control Supportive care Incentive spirometer 08/15/2022: Replace potassium Oxycodone for severe pain 08/16/2022: Monitor pain BM regimen 08/17/2022: Supportive care BM regimen 08/18/2022: Maintain potassium Pain control Refresh tears (1) Traumatic hematoma of face Status: Acute (2) Atrial fibrillation (3) Laceration of face Status: Acute (4) Chronic anticoagulation Status: Acute (5) Closed head injury Status: Acute (6) Closed right humeral fracture Status: Acute (7) Contusion of face Status: Acute (8) Fall on same level Status: Acute POLI HARGROVE DO Aug 18, 2022 06:07
[2022-08-18] MEDS: LEVOTHYROXINE 88 MCG (LEVOTHORID) TAB PO SCH (06:17)
[2022-08-18 07:54] VITALS: BP 128/75
[2022-08-18] MEDS: VENlafaxine XR 75 MG (EFFEXOR XR) CAP PO SCH (08:00)
[2022-08-18] MEDS: SENNA W/DOCUSATE (SENOKOT S) TABLET PO SCH ×2 (08:00→20:45)
[2022-08-18] MEDS: CYANOCOBALAMIN 1,000 MCG (VITAMIN B-12) TABLET PO SCH (08:00)
[2022-08-18] MEDS: OMEGA 3 (FISH OIL) 1000 MG CAP PO SCH (08:00)
[2022-08-18] MEDS: DOCUSATE SODIUM 100 MG (COLACE) CAP PO SCH ×2 (08:00→20:42)
[2022-08-18] MEDS: KCL 10 MEQ TAB (MICRO K) PO SCH ×2 (08:00→17:27)
[2022-08-18] MEDS: PANTOPRAZOLE 40 MG (PROTONIX) TAB PO SCH (08:00)
[2022-08-18] MEDS: polyethylene glycoL POWDER 17 GM (MIRALAX) PACK PO SCH ×2 (08:00→20:45)
[2022-08-18] MEDS: meTOproloL SUCCINATE 50 MG (TOPROL XL) TAB PO SCH ×2 (08:01→20:42)
[2022-08-18] MEDS: dilTIAZem120 MG (CARDIZEM CD) CAP PO SCH ×2 (08:01→20:42)
[2022-08-18] MEDS: VITAMIN D3 25 MCG (1,000 UNITS) TABLET PO SCH (08:01)
[2022-08-18] MEDS: COQ10 100 MG PO SCH (08:03)
--- NOTE | 2022-08-18 10:14 | Occupational Ther Daily Note ---
OT Current Status-Daily Note Subjective OT arrived w/ pt up in chair, Pt reports mild pain during session no request for medication. Co-treat with PT ([id number]), skills of 2 clinicians required for complex dynamic balance activities with dual tasking. PT focusing on dynamic balance while OT focusing on functional reach and dual tasking. Pain Location: Right, Upper Location Body Site: Arm Mental Status/Objective Patient Orientation: Person, Place, Time RUE sling ADL-Treatment Therapy Code Descriptions/Definitions Functional [place] Measure: 0=Not Assessed/NA 4=Minimal Assistance 1=Total Assistance 5=Supervision or Setup 2=Maximal Assistance 6=Modified [place] 3=Moderate Assistance 7=Complete IndependenceSCALE: Activities may be completed with or without assistive devices. 3-Ylxcmpbayy-djeqwvh completes the activity by him/herself with no assistance from a helper. 5-Set-up or Clean-up Assistance-helper sets up or cleans up; patient completes activity. [place] assists only prior to or following the activity. 4-Supervision or Touching Assistance-helper provides verbal cues and/or touching/steadying and/or contact guard assistance as patient completes activity. Assistance may be provided throughout the activity or intermittently. 3-Partial/Moderate Assistance-helper does LESS THAN HALF the effort. [place] lifts, holds or supports trunk or limbs, but provides less than half the effort. 2-Substantial/Maximal Assistance-helper does MORE THAN HALF the effort. [place] lifts or holds trunk or limbs and provides more than half the effort. 5-Duwbypdei-ujylfw does ALL the effort. Patient does none of the effort to complete the activity. Or, the assistance of 2 or more helpers is required for the patient to complete the activity. If activity was not attempted, code reason: 7-Patient Refused. 9-Not Applicable-not attempted and the patient did not perform the activity before the current illness, exacerbation or injury. 10-Not Attempted due to Environmental Limitations-(lack of equipment, weather restraints, etc.). 88-Not Attempted due to Medical Conditions or Safety Concerns. Oral Hygiene (QC): 4 (SBA w/ FWW) Bathing Location: R Arm, L Upper Leg, R Upper Leg, Chest, Abdomen, Perineal Area Shower/Bathe Self (QC): 3 Upper Body Dressing (QC): 2 (Requires asssit w/ B UE and R sling) Lower Body Dressing (QC): 3 (Decrease use of RUE ROM) On/Off Footwear: 5 (slip on shoes) Toileting Hygiene (QC): 3 (RUE ROM decreased for hygiene) Toilet Transfer (QC): 4 (25% VC for q cane use) Other Treatment Education for pt to perform dual tasking of visual scan and navigation and func tional reach Education OT Patient Education: Correct positioning, Instructions don/doff splint/brace, Modified ADL techniques, Reviewed precautions, Safety issues, Transfer techniques, Use of adapted equipment Teaching Recipient: Patient Teaching Methods: Demonstration, Discussion Response to Teaching: Verbalize Understanding, Return Demonstration, Reinforcement Needed OT Short Term Goals Short Term Goals Time Frame: Aug 25, 2022 Shower/bathe self: 3 Lower body dressin OT Nursing Home Goals Nursing Home Goals Time Frame: Sep 15, 2022 Acute change in mental status: 0 Inattention: 0 Disorganized thinkin Altered level of consciousness: 0 Eating (QC): 6 Oral Hygiene (QC): 6 Toileting Hygiene (QC): 6 Shower/Bathe Self (QC): 6 Upper Body Dressing (QC): 6 Lower Body Dressing (QC): 6 On/Off Footwear (QC): 6 Additional Goals: 1-Demonstrate ADL Tasks, 2-Verbalize Understanding, 3- ImproveStrength/Jenae 1=Demonstrate adherence to instructed precautions during ADL tasks. 2=Patient will verbalize/demonstrate understanding of assistive devices/modifications for ADL. 3=Patient will improve strength/tolerance for activity to enable patient to perform ADL's. OT Education/Plan Problem List/Assessment Assessment: Decreased Safety Aware, Impaired Coordination, Impaired Funct Balance, Impaired Self-Care Skills, Restricted Funct UE ROM Discharge Recommendations Plan/Recommendations: Continue POC Treatment Plan/Plan of Care Patient would benefit from OT for education, treatment and training to promote independence in ADL's, mobility, safety and/or upper extremity function for ADL's. Plan of Care: ADL Retraining, Functional Mobility, Group Exercise/Act as Ind, UE Funct Exercise/Act Treatment Duration: Sep 15, 2022 Frequency: At least 5 of 7 days/Wk (IRF) Estimated Hrs Per Day: 1.5 hours per day Agreement: Yes Rehab Potential: Fair Time Start Time: 08:20 Stop Time: 09:55 DATE: Aug 18, 2022 Total Time Billed (hr/min): 95 Billed Treatment Time 1 visit ADL 4 (60 min) FA 2 (35 min) co-treat with PT [id number], individual [id number] CHACORTA ESQUIVEL OT Aug 18, 2022 10:13
--- NOTE | 2022-08-18 10:59 | Physical Therapy Daily Note ---
PT Daily Note-Current Subjective Patient with OT pre-tx, reports no pain, agrees to PT. Will be co-treating with OT for part of tx due to patient increased risk of fall, unsteadiness with ambulation especially with turns and head movement, decreased vision from swollen R eye from head contusion. Pain Section J - Health Conditions 1. Rarely or not at all 2. Occasionally 3. Frequently 4. Almost constantly 8. Unable to answer Pain Effect on Sleep: 2 Pain Interference with Therapy: 2 Pain Interference w/Day-to-Day: 2 Appearance Patient in recliner post-tx with nurse call, phone, tray, all needs met. Mental Status Patient Orientation: Person, Place, Situation Transfers SCALE: Activities may be completed with or without assistive devices. 0-Vxtttxldye-ifxikky completes the activity by him/herself with no assistance from a helper. 5-Set-up or Clean-up Assistance-helper sets up or cleans up; patient completes activity. [place] assists only prior to or following the activity. 4-Supervision or Touching Assistance-helper provides verbal cues and/or touching/steadying and/or contact guard assistance as patient completes activity. Assistance may be provided throughout the activity or intermittently. 3-Partial/Moderate Assistance-helper does LESS THAN HALF the effort. [place] lifts, holds or supports trunk or limbs, but provides less than half the effort. 2-Substantial/Maximal Assistance-helper does MORE THAN HALF the effort. [place] lifts or holds trunk or limbs and provides more than half the effort. 4-Ctxaoystc-mgyett does ALL the effort. Patient does none of the effort to complete the activity. Or, the assistance of 2 or more helpers is required for the patient to complete the activity. If activity was not attempted, code reason: 7-Patient Refused. 9-Not Applicable-not attempted and the patient did not perform the activity before the current illness, exacerbation or injury. 10-Not Attempted due to Environmental Limitations-(lack of equipment, weather restraints, etc.). 88-Not Attempted due to Medical Conditions or Safety Concerns. Sit to Stand (QC): 4 Chair/Tka-jd-Dlnho Xfer(QC): 4 CGA Weight Bearing Right Lower Extremity: Right Weight Bearing/Tolerated Left Lower Extremity: Left Weight Bearing/Tolerated PATIENT IS NON-WEIGHT BEARING IN HER UPPER RIGHT EXTREMITY Gait Training Does the Patient Walk?: Yes Distance: 150', 150' Walk 10 feet (QC): 4 Walk 50 ft with 2 Turns(QC): 4 Walk 150 ft (QC): 4 Gait Persons Needed: 1 Gait Assistive Device: Cane Large Base Quad Patient still has difficulty with correct gait pattern using quad cane, tends to carry it. Patient walks with good step length and foot clearance, but decreased gait speed. Patient very unsteady with ambulation, especially on turns. Stair Training Stair Training: Handrails/: 1 handrail #of Steps: 4 1 Step (curb) (QC): 4 4 Steps (QC): 4 Stairs: Pattern: Step to Exercises Seated Therapy Exercises: Ankle pumps, Long arc quads, Hip flexion, Hip abd/add (manual resistance) Seated Reps: 20 Balloon Exercise in standing to work balance BLE Standing on foam pad 30secs x3 sets without arm support in parallel bars NuStep Minutes: 15 NuStep Workload: 7 Treatments Gait Training, LE Strengthening, Balance, Transfers Assessment Current Status: Fair Progress Patient needs quad cane due to increased risk of falls from 2 previous falls, unsteadiness with ambulation, especially when turning and with head movement, decreased balance, and use of only one arm because of humeral fx. PT Short Term Goals Short Term Goals Time Frame: Aug 21, 2022 Roll Left & Right: 4 (SBA) Sit to lyin (SBA) Lying to sitting on side of be: 4 (SBA) Sit to stand: 4 (CGA) Chair/scb-px-gkoji transfer: 4 (SBA) Toilet transfer: 4 (CGA) Car transfer: 4 (SBA) Walk 10 feet: 4 (SBA) Walk 50 feet with two turns: 4 (SBA) Walk 150 feet: 4 (SBA) Walking 10ft on uneven surface: 4 (SBA) 1 step (curb): 4 (SBA) 4 steps: 4 (CGA) 12 steps: 4 (CGA) Picking up objects: 4 (SBA) PT Fpc Goals Knitted Garment Finisher Goals PT Knitted Garment Finisher Goals Time Frame: Sep 04, 2022 Roll Left & Right (QC): 6 Sit to Lying (QC): 6 Lying-Sitting on Side/Bed(QC): 6 Sit to Stand (QC): 6 Chair/Dps-mh-Wnxmn Xfer(QC): 6 Toilet Transfer (QC): 6 Car Transfer (QC): 6 Does the Patient Walk: Yes Walk 10 feet (QC): 6 Walk 50ft with 2 Turns (QC): 6 Walk 150 ft (QC): 6 Walking 10ft on Uneven Surface: 6 1 Step (curb) (QC): 6 4 Steps (QC): 6 12 Steps (QC): 6 Picking up an Object (QC): 6 (with vp treasurer arm) Wheel 50 feet with 2 turns (QC: 9 Wheel 150 feet: 9 PT Plan Problem List Problem List: Activity Tolerance, Functional Strength, Safety, Balance, Gait, Transfer, Bed Mobility, ROM Treatment/Plan Treatment Plan: Continue Plan of Care Treatment Plan: Bed Mobility, Education, Functional Activity Jenae, Functional Strength, Gait, Safety, Therapeutic Exercise, Transfers Treatment Duration: Sep 04, 2022 Frequency: At least 5 of 7 days/Wk (IRF) Estimated Hrs Per Day: 1.5 hours per day Patient and/or Family Agrees t: Yes Safety Risks/Education Patient Education: Gait Training, Transfer Techniques, Steps, Correct Positioning, Disease Process Teaching Recipient: Patient Teaching Methods: Demonstration, Discussion Response to Teaching: Reinforcement Needed Time Time In: 929 Time Out: 1100 DATE: Aug 18, 2022 Total Billed Treatment Time: 90 Total Billed Treatment 1 visit OT did ballon exercise for balance and coordination while PT did ambulation, safety, correct positioning, and transfers. co-treated from FA x2 30' EX x4 60' AYLA NATHAN PT Aug 18, 2022 10:59
[2022-08-18] MEDS: ARTIFICAL TEARS 0.4 ML UNIT DOSE (REFRESH PLUS) OU PRN ×2 (18:12→20:48)
[2022-08-18 19:59] VITALS: BP 124/78
[2022-08-18] MEDS: MELATONIN 3 MG TABLET PO PRN (20:42)
[2022-08-18] MEDS: MONTELUKAST 10 MG (SINGULAIR) TAB PO SCH (20:42)
[2022-08-18] MEDS: ROSUVASTATIN 5 MG (CRESTOR) TABLET PO SCH (20:42)
[2022-08-18] MEDS: ACETAMINOPHEN 500 MG TAB (TYLENOL) PO PRN (22:15)
--- NOTE | 2022-08-19 05:58 | PM&R Progress Note ---
Subjective HPI/CC On Admission Date Seen by Provider: Aug 19, 2022 Time Seen by Provider: 12:00 Subjective/Events-last exam 08/19/2022: Patient doing much better Participating in therapy Pain is improved Check meds and labs 08/18/2022: Doing much better Daughter in law is at bedside from [place] Son wants to see Dr Steinberg when he sees patient on Sunday Refresh tears for right eye is needed Large BM today 08/17/2022: No major issues Pain controlled No falls In a good mood Slept well Checked meds 08/16/2022: Improved status Less pain Therapy going well Very slow recovery Right face edema improved 08/15/2022: No major issues Right eye less swollen Wrist pain noted so will give Oxycodone prior to therapy Used CPAP last night Tachy 100's Potassium 3.1 so ordered supplement Review of Systems General: Fatigue, Malaise Objective Exam Vital Signs Vital Signs Date Time Temp Pulse Resp B/P (MAP) Pulse Ox O2 Delivery O2 Flow Rate FiO2 08/19/22 09:31 Room Air 08/19/22 07:30 36.8 88 20 122/83 (96) 96 Capillary Refill : General Appearance: No Apparent Distress, WD/WN, Chronically ill HEENT: Pharynx Normal, Other (Right facial hematoma with edematous periorbital region) Neck: Full Range of Motion, Normal Inspection, Non Tender, Supple, Carotid Bruit Respiratory: Chest Non Tender, Lungs Clear, Normal Breath Sounds, No Accessory Muscle Use, No Respiratory Distress Cardiovascular: No Edema, No Gallop, No JVD, No Murmur, Normal Peripheral Pulses, Irregularly Irregular Gastrointestinal: Normal Bowel Sounds, No Organomegaly, No Pulsatile Mass, Non Tender, Soft Back: Normal Inspection, No CVA Tenderness, No Vertebral Tenderness Extremity: Normal Capillary Refill, Normal Inspection, Normal Range of Motion (Except right arm), Non Tender, No Calf Tenderness, No Pedal Edema Neurologic/Psychiatric: Alert, Oriented x3, Normal Mood/Affect, lehr stripper II-XII Norm as Tested, Abnormal Gait, Motor Weakness (Right arm with sling) Skin: Normal Color, Warm/Dry Lymphatic: No Adenopathy Results/Procedures Lab Patient resulted labs reviewed. FIM Transfers Therapy Code Descriptions/Definitions Functional [place] Measure: 0=Not Assessed/NA 4=Minimal Assistance 1=Total Assistance 5=Supervision or Setup 2=Maximal Assistance 6=Modified [place] 3=Moderate Assistance 7=Complete IndependenceSCALE: Activities may be completed with or without assistive devices. 1-Avtggvzkxj-kwzmtyo completes the activity by him/herself with no assistance from a helper. 5-Set-up or Clean-up Assistance-helper sets up or cleans up; patient completes activity. [place] assists only prior to or following the activity. 4-Supervision or Touching Assistance-helper provides verbal cues and/or touching/steadying and/or contact guard assistance as patient completes activity. Assistance may be provided throughout the activity or intermittently. 3-Partial/Moderate Assistance-helper does LESS THAN HALF the effort. [place] lifts, holds or supports trunk or limbs, but provides less than half the effort. 2-Substantial/Maximal Assistance-helper does MORE THAN HALF the effort. [place] lifts or holds trunk or limbs and provides more than half the effort. 8-Lvedowstv-oewlxs does ALL the effort. Patient does none of the effort to complete the activity. Or, the assistance of 2 or more helpers is required for the patient to complete the activity. If activity was not attempted, code reason: 7-Patient Refused. 9-Not Applicable-not attempted and the patient did not perform the activity before the current illness, exacerbation or injury. 10-Not Attempted due to Environmental Limitations-(lack of equipment, weather restraints, etc.). 88-Not Attempted due to Medical Conditions or Safety Concerns. Roll Left to Right (QC): 3 Sit to Lying (QC): 3 Sit to Stand (QC): 4 Chair/Zws-tr-Zfjfx Xfer(QC): 4 Car Transfer (QC): 3 Gait Training Does the Patient Walk?: Yes Distance: 150', 150' Walk 10 feet (QC): 4 Walk 50 ft with 2 Turns(QC): 4 Walk 150 ft (QC): 4 Walking 10ft/uneven surface-QC: 4 Gait Persons Needed: 1 Gait Assistive Device: Cane Large Base Quad Wheelchair Training Does the Pt Use a Wheelchair?: No Wheel 50 ft with 2 turns (QC): 9 Wheel 150 ft (QC): 9 Type of Wheelchair: N/A Stair Training Stair Training: Handrails/: 1 handrail #of Steps: 4 1 Step (curb) (QC): 4 4 Steps (QC): 4 12 Steps (QC): 88 Stairs: Pattern: Step to Balance Picking up an Object (QC): 4 (CGA with log driver arm) ADL-Treatment Eating (QC): 5 Oral Hygiene (QC): 4 (SBA w/ FWW) Bathing Location: R Arm, L Upper Leg, R Upper Leg, Chest, Abdomen, Perineal Area Shower/Bathe Self (QC): 3 Upper Body Dressing (QC): 2 (Requires asssit w/ B UE and R sling) Lower Body Dressing (QC): 3 (Decrease use of RUE ROM) On/Off Footwear (QC): 5 (slip on shoes) Toileting Hygiene (QC): 3 (RUE ROM decreased for hygiene) Toilet Transfer (QC): 4 (25% VC for q cane use) Assessment/Plan Assessment and Plan Assess & Plan/Chief Complaint A/P: 1. Closed head injury: Negative for intracranial injury on CT. Continue monitoring for neurological symptoms and observe facial swelling. 2. Difficulty balancing/ambulating: PT/OT 3. Anticoagulated status secondary to afib: Continue monitoring facial swelling for sign of acute bleed. Hold Xarelto until facial swelling has subsided and patient has improved balance and gait since risk of bleeding outweighs the benefits of stroke prophylaxis right now 4. HTN Continue treating on home meds. 5. Hypokalemia: K of 3.5. Start on oral potassium replacement. Recheck CMP in 1- 2 days. 6. Anemia: HGB of 11, HCT of 34. Continue monitoring and recheck HGB, HCT. 7. Elevated bilirubin: Bilirubin of 1.7. Continue monitoring for jaundice or liver dysfunction and recheck CMP. 8. UA Abnormalities: Ketones 1+, Crystals Present, Amorphous Sediment Moderate. Likely due to dehydration. Push fluids and possible recheck. 9. HLD 10. Hypothyroidism 11. GERD 12. Reactive airway disease 13. JAS on CPAP 14. Hypokalemia Plan: Hold anticoagulation Aggressive rehab Pain control Supportive care Incentive spirometer 08/15/2022: Replace potassium Oxycodone for severe pain 08/16/2022: Monitor pain BM regimen 08/17/2022: Supportive care BM regimen 08/18/2022: Maintain potassium Pain control Refresh tears 08/19/2022: Supportive care Much improved status (1) Traumatic hematoma of face Status: Acute (2) Atrial fibrillation (3) Laceration of face Status: Acute (4) Chronic anticoagulation Status: Acute (5) Closed head injury Status: Acute (6) Closed right humeral fracture Status: Acute (7) Contusion of face Status: Acute (8) Fall on same level Status: Acute POLI HARGROVE DO Aug 19, 2022 05:58
[2022-08-19] MEDS: LEVOTHYROXINE 88 MCG (LEVOTHORID) TAB PO SCH (06:33)
[2022-08-19 07:30] VITALS: BP 122/83
[2022-08-19] MEDS: OMEGA 3 (FISH OIL) 1000 MG CAP PO SCH (07:59)
[2022-08-19] MEDS: KCL 10 MEQ TAB (MICRO K) PO SCH ×2 (07:59→17:39)
[2022-08-19] MEDS: VITAMIN D3 25 MCG (1,000 UNITS) TABLET PO SCH (08:00)
[2022-08-19] MEDS: CYANOCOBALAMIN 1,000 MCG (VITAMIN B-12) TABLET PO SCH (08:00)
[2022-08-19] MEDS: PANTOPRAZOLE 40 MG (PROTONIX) TAB PO SCH (08:00)
[2022-08-19] MEDS: meTOproloL SUCCINATE 50 MG (TOPROL XL) TAB PO SCH ×2 (08:00→21:53)
[2022-08-19] MEDS: dilTIAZem120 MG (CARDIZEM CD) CAP PO SCH ×2 (08:00→21:53)
[2022-08-19] MEDS: VENlafaxine XR 75 MG (EFFEXOR XR) CAP PO SCH (08:00)
[2022-08-19] MEDS: DOCUSATE SODIUM 100 MG (COLACE) CAP PO SCH ×2 (08:01→21:50)
[2022-08-19] MEDS: COQ10 100 MG PO SCH (08:03)
[2022-08-19] MEDS: polyethylene glycoL POWDER 17 GM (MIRALAX) PACK PO SCH ×2 (08:04→21:50)
[2022-08-19] MEDS: SENNA W/DOCUSATE (SENOKOT S) TABLET PO SCH ×2 (08:04→21:50)
--- NOTE | 2022-08-19 09:49 | Physical Therapy Daily Note ---
PT Daily Note-Current Subjective Pt sitting in recliner upon arrival. Pt agrees to PT. Pain Location: Right Location Body Site: Shoulder Pain Description: Ache Comment: REports but doesn't rate Section J - Health Conditions 1. Rarely or not at all 2. Occasionally 3. Frequently 4. Almost constantly 8. Unable to answer Pain Effect on Sleep: 2 Pain Interference with Therapy: 2 Pain Interference w/Day-to-Day: 2 Mental Status Patient Orientation: Person, Place, Time, Situation Attachments: Other-See Comments (Sling for R UE) Transfers SCALE: Activities may be completed with or without assistive devices. 2-Cvongxyfra-zlbtwma completes the activity by him/herself with no assistance from a helper. 5-Set-up or Clean-up Assistance-helper sets up or cleans up; patient completes activity. [place] assists only prior to or following the activity. 4-Supervision or Touching Assistance-helper provides verbal cues and/or touching/steadying and/or contact guard assistance as patient completes activity. Assistance may be provided throughout the activity or intermittently. 3-Partial/Moderate Assistance-helper does LESS THAN HALF the effort. [place] lifts, holds or supports trunk or limbs, but provides less than half the effort. 2-Substantial/Maximal Assistance-helper does MORE THAN HALF the effort. [place] lifts or holds trunk or limbs and provides more than half the effort. 5-Oudtudfal-unadxn does ALL the effort. Patient does none of the effort to complete the activity. Or, the assistance of 2 or more helpers is required for the patient to complete the activity. If activity was not attempted, code reason: 7-Patient Refused. 9-Not Applicable-not attempted and the patient did not perform the activity before the current illness, exacerbation or injury. 10-Not Attempted due to Environmental Limitations-(lack of equipment, weather restraints, etc.). 88-Not Attempted due to Medical Conditions or Safety Concerns. Sit to Lying (QC): 4 Sit to Stand (QC): 5 Weight Bearing Right Lower Extremity: Right Weight Bearing/Tolerated Left Lower Extremity: Left Weight Bearing/Tolerated PATIENT IS NON-WEIGHT BEARING IN HER UPPER RIGHT EXTREMITY Gait Training Does the Patient Walk?: Yes Distance: 300' Walk 10 feet (QC): 5 Walk 50 ft with 2 Turns(QC): 5 Walk 150 ft (QC): 5 Gait Assistive Device: Cane Large Base Quad Wheelchair Training Does the Pt Use a Wheelchair?: No Treatments TF to standing and amb. in hallway. Pt takes standing RB as needed. Pt returns to room to use BR then TF to Supine in bed with instruction to protect R UE. All needs met, call light in hand. Assessment Current Status: Good Progress Slow but steady akua. Pt reports occasional swaying w/amb but this was baseline. Pt needs increased VC and at times assist w/TF to Supine in bed. Pt wants to sleep in lift chair after d/c. PT Short Term Goals Short Term Goals Time Frame: Aug 21, 2022 Roll Left & Right: 4 (SBA) Sit to lyin (SBA) Lying to sitting on side of be: 4 (SBA) Sit to stand: 4 (CGA) Chair/anw-qy-tuvoz transfer: 4 (SBA) Toilet transfer: 4 (CGA) Car transfer: 4 (SBA) Walk 10 feet: 4 (SBA) Walk 50 feet with two turns: 4 (SBA) Walk 150 feet: 4 (SBA) Walking 10ft on uneven surface: 4 (SBA) 1 step (curb): 4 (SBA) 4 steps: 4 (CGA) 12 steps: 4 (CGA) Picking up objects: 4 (SBA) PT Weatherization Coordinator Goals Half-Way Goals PT Half-Way Goals Time Frame: Sep 04, 2022 Roll Left & Right (QC): 6 Sit to Lying (QC): 6 Lying-Sitting on Side/Bed(QC): 6 Sit to Stand (QC): 6 Chair/Rsh-te-Dxjrp Xfer(QC): 6 Toilet Transfer (QC): 6 Car Transfer (QC): 6 Does the Patient Walk: Yes Walk 10 feet (QC): 6 Walk 50ft with 2 Turns (QC): 6 Walk 150 ft (QC): 6 Walking 10ft on Uneven Surface: 6 1 Step (curb) (QC): 6 4 Steps (QC): 6 12 Steps (QC): 6 Picking up an Object (QC): 6 (with hvac r tech arm) Wheel 50 feet with 2 turns (QC: 9 Wheel 150 feet: 9 PT Plan Problem List Problem List: Activity Tolerance, Balance Treatment/Plan Treatment Plan: Continue Plan of Care Treatment Plan: Bed Mobility, Education, Functional Activity Jenae, Functional Strength, Gait, Safety, Therapeutic Exercise, Transfers Treatment Duration: Sep 04, 2022 Frequency: At least 5 of 7 days/Wk (IRF) Estimated Hrs Per Day: 1.5 hours per day Patient and/or Family Agrees t: Yes Safety Risks/Education Patient Education: Gait Training, Transfer Techniques, Safety Issues Teaching Recipient: Patient Response to Teaching: Verbalize Understanding Time Time In: 855 Time Out: 930 DATE: Aug 19, 2022 Total Billed Treatment Time: 35 Total Billed Treatment 1, GT x2 (35m) GENO GAR[place] FIBERGLASS PRODUCT TESTER Aug 19, 2022 09:49
[2022-08-19] MEDS: ACETAMINOPHEN 500 MG TAB (TYLENOL) PO PRN ×2 (11:16→21:54)
[2022-08-19] MEDS: ARTIFICAL TEARS 0.4 ML UNIT DOSE (REFRESH PLUS) OU PRN (11:33)
[2022-08-19 19:40] VITALS: BP 115/74
[2022-08-19] MEDS: MONTELUKAST 10 MG (SINGULAIR) TAB PO SCH (21:53)
[2022-08-19] MEDS: ROSUVASTATIN 5 MG (CRESTOR) TABLET PO SCH (21:54)
--- NOTE | 2022-08-20 06:12 | PM&R Progress Note ---
Subjective HPI/CC On Admission Date Seen by Provider: Aug 20, 2022 Time Seen by Provider: 12:00 Subjective/Events-last exam 08/20/2022: Patient doing well Walking well No falls Pain controlled Bowels are moving well 08/19/2022: Patient doing much better Participating in therapy Pain is improved Check meds and labs 08/18/2022: Doing much better Daughter in law is at bedside from [place] Son wants to see Dr Steinberg when he sees patient on Sunday Refresh tears for right eye is needed Large BM today 08/17/2022: No major issues Pain controlled No falls In a good mood Slept well Checked meds 08/16/2022: Improved status Less pain Therapy going well Very slow recovery Right face edema improved 08/15/2022: No major issues Right eye less swollen Wrist pain noted so will give Oxycodone prior to therapy Used CPAP last night Tachy 100's Potassium 3.1 so ordered supplement Review of Systems General: Fatigue, Malaise Objective Exam Vital Signs Vital Signs Date Time Temp Pulse Resp B/P (MAP) Pulse Ox O2 Delivery O2 Flow Rate FiO2 08/20/22 09:52 Room Air 08/20/22 08:00 36.0 87 18 123/72 (89) 95 Capillary Refill : General Appearance: No Apparent Distress, WD/WN, Chronically ill HEENT: Pharynx Normal, Other (Right facial hematoma with edematous periorbital region) Neck: Full Range of Motion, Normal Inspection, Non Tender, Supple, Carotid Bruit Respiratory: Chest Non Tender, Lungs Clear, Normal Breath Sounds, No Accessory Muscle Use, No Respiratory Distress Cardiovascular: No Edema, No Gallop, No JVD, No Murmur, Normal Peripheral Pulses, Irregularly Irregular Gastrointestinal: Normal Bowel Sounds, No Organomegaly, No Pulsatile Mass, Non Tender, Soft Back: Normal Inspection, No CVA Tenderness, No Vertebral Tenderness Extremity: Normal Capillary Refill, Normal Inspection, Normal Range of Motion (Except right arm), Non Tender, No Calf Tenderness, No Pedal Edema Neurologic/Psychiatric: Alert, Oriented x3, Normal Mood/Affect, pourer II-XII Norm as Tested, Abnormal Gait, Motor Weakness (Right arm with sling) Skin: Normal Color, Warm/Dry Lymphatic: No Adenopathy Results/Procedures Lab Patient resulted labs reviewed. FIM Transfers Therapy Code Descriptions/Definitions Functional [place] Measure: 0=Not Assessed/NA 4=Minimal Assistance 1=Total Assistance 5=Supervision or Setup 2=Maximal Assistance 6=Modified [place] 3=Moderate Assistance 7=Complete IndependenceSCALE: Activities may be completed with or without assistive devices. 3-[place]svqzy-[place]lpork completes the activity by him/herself with no assistance from a helper. 5-Set-up or Clean-up Assistance-helper sets up or cleans up; patient completes activity. [place] assists only prior to or following the activity. 4-Supervision or Touching Assistance-helper provides verbal cues and/or touching/steadying and/or contact guard assistance as patient completes activit y. Assistance may be provided throughout the activity or intermittently. 3-Partial/Moderate Assistance-helper does LESS THAN HALF the effort. [place] lifts, holds or supports trunk or limbs, but provides less than half the effort. 2-Substantial/Maximal Assistance-helper does MORE THAN HALF the effort. [place] lifts or holds trunk or limbs and provides more than half the effort. 6-Wgfwqoxop-riyadw does ALL the effort. Patient does none of the effort to complete the activity. Or, the assistance of 2 or more helpers is required for the patient to complete the activity. If activity was not attempted, code reason: 7-Patient Refused. 9-Not Applicable-not attempted and the patient did not perform the activity before the current illness, exacerbation or injury. 10-Not Attempted due to Environmental Limitations-(lack of equipment, weather restraints, etc.). 88-Not Attempted due to Medical Conditions or Safety Concerns. Roll Left to Right (QC): 3 Sit to Lying (QC): 4 Sit to Stand (QC): 5 Chair/Wrm-va-Plans Xfer(QC): 4 Car Transfer (QC): 3 Gait Training Does the Patient Walk?: Yes Distance: 300' Walk 10 feet (QC): 5 Walk 50 ft with 2 Turns(QC): 5 Walk 150 ft (QC): 5 Walking 10ft/uneven surface-QC: 4 Gait Persons Needed: 1 Gait Assistive Device: Cane Large Base Quad Wheelchair Training Does the Pt Use a Wheelchair?: No Wheel 50 ft with 2 turns (QC): 9 Wheel 150 ft (QC): 9 Type of Wheelchair: N/A Stair Training Stair Training: Handrails/: 1 handrail #of Steps: 4 1 Step (curb) (QC): 4 4 Steps (QC): 4 12 Steps (QC): 88 Stairs: Pattern: Step to Balance Picking up an Object (QC): 4 (CGA with head wood grinder arm) ADL-Treatment Eating (QC): 5 Oral Hygiene (QC): 4 (SBA w/ FWW) Bathing Location: R Arm, L Upper Leg, R Upper Leg, Chest, Abdomen, Perineal Area Shower/Bathe Self (QC): 3 Upper Body Dressing (QC): 2 (Requires asssit w/ B UE and R sling) Lower Body Dressing (QC): 3 (Decrease use of RUE ROM) On/Off Footwear (QC): 5 (slip on shoes) Toileting Hygiene (QC): 3 (RUE ROM decreased for hygiene) Toilet Transfer (QC): 4 (25% VC for q cane use) Assessment/Plan Assessment and Plan Assess & Plan/Chief Complaint A/P: 1. Closed head injury: Negative for intracranial injury on CT. Continue monitoring for neurological symptoms and observe facial swelling. 2. Difficulty balancing/ambulating: PT/OT 3. Anticoagulated status secondary to afib: Continue monitoring facial swelling for sign of acute bleed. Hold Xarelto until facial swelling has subsided and patient has improved balance and gait since risk of bleeding outweighs the benefits of stroke prophylaxis right now 4. HTN Continue treating on home meds. 5. Hypokalemia: K of 3.5. Start on oral potassium replacement. Recheck CMP in 1- 2 days. 6. Anemia: HGB of 11, HCT of 34. Continue monitoring and recheck HGB, HCT. 7. Elevated bilirubin: Bilirubin of 1.7. Continue monitoring for jaundice or liver dysfunction and recheck CMP. 8. UA Abnormalities: Ketones 1+, Crystals Present, Amorphous Sediment Moderate. Likely due to dehydration. Push fluids and possible recheck. 9. HLD 10. Hypothyroidism 11. GERD 12. Reactive airway disease 13. JAS on CPAP 14. Hypokalemia Plan: Hold anticoagulation Aggressive rehab Pain control Supportive care Incentive spirometer 08/15/2022: Replace potassium Oxycodone for severe pain 08/16/2022: Monitor pain BM regimen 08/17/2022: Supportive care BM regimen 08/18/2022: Maintain potassium Pain control Refresh tears 08/19/2022: Supportive care Much improved status 08/20/2022: Continue aggressive therapy Dramatic improvement (1) Traumatic hematoma of face Status: Acute (2) Atrial fibrillation (3) Laceration of face Status: Acute (4) Chronic anticoagulation Status: Acute (5) Closed head injury Status: Acute (6) Closed right humeral fracture Status: Acute (7) Contusion of face Status: Acute (8) Fall on same level Status: Acute POLI HARGROVE DO Aug 20, 2022 06:12
[2022-08-20] MEDS: LEVOTHYROXINE 88 MCG (LEVOTHORID) TAB PO SCH (06:47)
[2022-08-20 08:00] VITALS: BP 123/72
[2022-08-20] MEDS: meTOproloL SUCCINATE 50 MG (TOPROL XL) TAB PO SCH ×2 (08:05→20:09)
[2022-08-20] MEDS: KCL 10 MEQ TAB (MICRO K) PO SCH ×2 (08:05→17:33)
[2022-08-20] MEDS: OMEGA 3 (FISH OIL) 1000 MG CAP PO SCH (08:05)
[2022-08-20] MEDS: dilTIAZem120 MG (CARDIZEM CD) CAP PO SCH ×2 (08:05→20:10)
[2022-08-20] MEDS: VENlafaxine XR 75 MG (EFFEXOR XR) CAP PO SCH (08:05)
[2022-08-20] MEDS: PANTOPRAZOLE 40 MG (PROTONIX) TAB PO SCH (08:06)
[2022-08-20] MEDS: CYANOCOBALAMIN 1,000 MCG (VITAMIN B-12) TABLET PO SCH (08:06)
[2022-08-20] MEDS: VITAMIN D3 25 MCG (1,000 UNITS) TABLET PO SCH (08:06)
[2022-08-20] MEDS: COQ10 100 MG PO SCH (08:08)
[2022-08-20] MEDS: DOCUSATE SODIUM 100 MG (COLACE) CAP PO SCH ×2 (08:09→20:36)
[2022-08-20] MEDS: SENNA W/DOCUSATE (SENOKOT S) TABLET PO SCH ×2 (08:09→20:37)
[2022-08-20] MEDS: polyethylene glycoL POWDER 17 GM (MIRALAX) PACK PO SCH ×2 (08:09→20:36)
[2022-08-20] MEDS: ACETAMINOPHEN 500 MG TAB (TYLENOL) PO PRN ×2 (11:12→20:10)
[2022-08-20 20:00] VITALS: BP 134/67
[2022-08-20] MEDS: ROSUVASTATIN 5 MG (CRESTOR) TABLET PO SCH (20:09)
[2022-08-20] MEDS: MONTELUKAST 10 MG (SINGULAIR) TAB PO SCH (20:10)
[2022-08-20] MEDS: MELATONIN 3 MG TABLET PO PRN (23:06)
[2022-08-21] MEDS: LEVOTHYROXINE 88 MCG (LEVOTHORID) TAB PO SCH (06:26)
[2022-08-21 07:13] LABS: BASOPHILS # (AUTO) 0.1 10^3/uL (0.0-0.1); BASOPHILS % (AUTO) 1 % (0-10); EOSINOPHILS # (AUTO) 0.3 10^3/uL (0.0-0.3); EOSINOPHILS % (AUTO) 4 % (0-10); HEMATOCRIT 37 % (35-52); HEMOGLOBIN 11.8 g/dL (11.5-16.0); LYMPHOCYTES # (AUTO) 1.5 10^3/uL (1.0-4.0); LYMPHOCYTES % (AUTO) 21 % (12-44); MEAN CORPUSCULAR HEMOGLOBIN 27 pg (25-34); MEAN CORPUSCULAR HGB CONC 32 g/dL (32-36); MEAN CORPUSCULAR VOLUME 86 fL (80-99); MONOCYTES # (AUTO) 0.8 10^3/uL (0.0-1.0); MONOCYTES % (AUTO) 11 % (0-12); NEUTROPHILS # (AUTO) 4.4 10^3/uL (1.8-7.8); NEUTROPHILS % (AUTO) 62 % (42-75); PLATELET COUNT 380 10^3/uL (130-400); WHITE BLOOD COUNT 7.1 10^3/uL (4.3-11.0)
[2022-08-21 07:25] VITALS: BP 140/89
[2022-08-21 07:30] LABS: ALBUMIN 3.8 GM/DL (3.2-4.5); CALCIUM 9.4 MG/DL (8.5-10.1); CREATININE SERUM 0.77 MG/DL (0.60-1.30); POTASSIUM 3.8 MMOL/L (3.6-5.0); TOTAL PROTEIN 7.7 GM/DL (6.4-8.2)
--- NOTE | 2022-08-21 08:26 | Occupational Ther Daily Note ---
OT Current Status-Daily Note Subjective Pt agreeable to OT Tx. 0/10 at rest. Mental Status/Objective Patient Orientation: Person, Place, Time, Situation ADL-Treatment Therapy Code Descriptions/Definitions Functional [place] Measure: 0=Not Assessed/NA 4=Minimal Assistance 1=Total Assistance 5=Supervision or Setup 2=Maximal Assistance 6=Modified [place] 3=Moderate Assistance 7=Complete IndependenceSCALE: Activities may be completed with or without assistive devices. 5-Hxmverlbfa-ekyphov completes the activity by him/herself with no assistance from a helper. 5-Set-up or Clean-up Assistance-helper sets up or cleans up; patient completes activity. [place] assists only prior to or following the activity. 4-Supervision or Touching Assistance-helper provides verbal cues and/or touching/steadying and/or contact guard assistance as patient completes activity. Assistance may be provided throughout the activity or intermittently. 3-Partial/Moderate Assistance-helper does LESS THAN HALF the effort. [place] lifts, holds or supports trunk or limbs, but provides less than half the effort. 2-Substantial/Maximal Assistance-helper does MORE THAN HALF the effort. [place] lifts or holds trunk or limbs and provides more than half the effort. 0-Axndsecqd-czxcxu does ALL the effort. Patient does none of the effort to complete the activity. Or, the assistance of 2 or more helpers is required for the patient to complete the activity. If activity was not attempted, code reason: 7-Patient Refused. 9-Not Applicable-not attempted and the patient did not perform the activity before the current illness, exacerbation or injury. 10-Not Attempted due to Environmental Limitations-(lack of equipment, weather restraints, etc.). 88-Not Attempted due to Medical Conditions or Safety Concerns. Eating (QC): 5 (set up to open milk carton per pt report) Oral Hygiene (QC): 6 (IND standing at sink.) Toileting Hygiene (QC): 4 (SBA, pt able to manage pant hike with increased time on R side.) Toilet Transfer (QC): 4 (SBA on/off toilet) Other Treatment Pt in recliner, used QC to perform functional mobility into bathroom. Pt comple omayra toileting, able to manage pant hike on R side with increased time. Pt then stood at sink to complete grooming/oral care, independently. Pt used QC to perform functional mobility to therapy gym, frequent VCs required for sequencing and safety of QC with mobility. OT tx focused on increasing LUE strength, fine motor coordination and activity tolerance, and RUE ROM elbow, wrist/fingers. Pt completed arm bike x15 mins, LUE, 15 Watt resistance, no rest break. Pt performed AROM RUE elbow flexion/extension, pronation/supination, wrist flexion/extension, wrist circles, and finger flexion/extension. Pt states she has not completed these exercises in her room, OT encouraged pt to complete the exercises in her room in order to maintain ROM and decrease stiffness, she verbalized understanding. Pt then removed beads from moderate resistance theraputty (green), able to locate all beads without cues. Pt primarily used LUE, but assisted with R hand/fingers as needed. Pt returned to her room using QC, frequent VCs for safety/sequencing of QC. Post tx, pt in recliner, call light in reach and all needs met. Education OT Patient Education: Correct positioning, Energy conservation, Exercise program, Modified ADL techniques, Progress toward Goal/Update tx plan, Purpose of tx/functional activities, Rehab process Teaching Recipient: Patient Teaching Methods: Discussion Response to Teaching: Verbalize Understanding, Reinforcement Needed BIMS CAM BIMS Expression of Ideas and Wants: Without Difficulty Understanding Verbal Content: Understands Brief Interview/Mental Status: Yes IRF TITA BIMS: IRF TITA BIMS Response (Comments) Value Repitition of Three Words Three 3 Recalls Socks Yes, No Cue Required 2 Recalls Blue Yes, No Cue Required 2 Recalls Bed Yes, No Cue Required 2 Year Correct 3 Month Accurate Within 5 Days 2 Day Correct 1 Total 15 CAM Mental Status Change/Baseline: 0 Inattention: 0 Disorganized thinkin Altered level of consciousness: 0 OT Short Term Goals Short Term Goals Time Frame: Aug 25, 2022 Shower/bathe self: 3 Lower body dressin OT Carpenter Apprentice Goals [facility] Goals Time Frame: Sep 15, 2022 Acute change in mental status: 0 Inattention: 0 Disorganized thinkin Altered level of consciousness: 0 Eating (QC): 6 Oral Hygiene (QC): 6 Toileting Hygiene (QC): 6 Shower/Bathe Self (QC): 6 Upper Body Dressing (QC): 6 Lower Body Dressing (QC): 6 On/Off Footwear (QC): 6 Additional Goals: 1-Demonstrate ADL Tasks, 2-Verbalize Understanding, 3- ImproveStrength/Jenae 1=Demonstrate adherence to instructed precautions during ADL tasks. 2=Patient will verbalize/demonstrate understanding of assistive devices/modifications for ADL. 3=Patient will improve strength/tolerance for activity to enable patient to perform ADL's. OT Education/Plan Problem List/Assessment Assessment: Decreased Activ Tolerance, Decreased Safety Aware, Decreased UE Strength, Impaired Cognition, Impaired Funct Balance, Impaired I ADL's, Impaired Self-Care Skills, Restricted Funct UE ROM Discharge Recommendations Plan/Recommendations: Continue POC Treatment Plan/Plan of Care Patient would benefit from OT for education, treatment and training to promote independence in ADL's, mobility, safety and/or upper extremity function for ADL's. Plan of Care: ADL Retraining, Functional Mobility, Group Exercise/Act as Ind, UE Funct Exercise/Act Treatment Duration: Sep 15, 2022 Frequency: At least 5 of 7 days/Wk (IRF) Estimated Hrs Per Day: 1.5 hours per day Agreement: Yes Rehab Potential: Fair Time Start Time: 07:30 Stop Time: 09:00 DATE: Aug 21, 2022 Total Time Billed (hr/min): 90 Billed Treatment Time 1, ADL 2 (30'), EX 3 (45'), FA (15') RUI MENDOZA OT Aug 21, 2022 08:26
[2022-08-21] MEDS: OMEGA 3 (FISH OIL) 1000 MG CAP PO SCH (08:54)
[2022-08-21] MEDS: VITAMIN D3 25 MCG (1,000 UNITS) TABLET PO SCH (08:54)
[2022-08-21] MEDS: PANTOPRAZOLE 40 MG (PROTONIX) TAB PO SCH (08:54)
[2022-08-21] MEDS: KCL 10 MEQ TAB (MICRO K) PO SCH ×2 (08:54→17:29)
[2022-08-21] MEDS: CYANOCOBALAMIN 1,000 MCG (VITAMIN B-12) TABLET PO SCH (08:54)
[2022-08-21] MEDS: VENlafaxine XR 75 MG (EFFEXOR XR) CAP PO SCH (08:54)
[2022-08-21] MEDS: dilTIAZem120 MG (CARDIZEM CD) CAP PO SCH ×2 (08:54→21:31)
[2022-08-21] MEDS: meTOproloL SUCCINATE 50 MG (TOPROL XL) TAB PO SCH ×2 (08:54→21:29)
[2022-08-21] MEDS: DOCUSATE SODIUM 100 MG (COLACE) CAP PO SCH ×2 (08:54→21:30)
[2022-08-21] MEDS: SENNA W/DOCUSATE (SENOKOT S) TABLET PO SCH ×2 (08:58→21:30)
[2022-08-21] MEDS: polyethylene glycoL POWDER 17 GM (MIRALAX) PACK PO SCH ×2 (08:58→21:32)
[2022-08-21] MEDS: COQ10 100 MG PO SCH (08:58)
--- NOTE | 2022-08-21 09:47 | PM&R Progress Note ---
Subjective HPI/CC On Admission Date Seen by Provider: Aug 21, 2022 Time Seen by Provider: 09:00 Subjective/Events-last exam 08/21/2022: Pt is doing pretty well Labs are improved Sutures will be taken out today Pain is controlled Right arm is in a sling 08/20/2022: Patient doing well Walking well No falls Pain controlled Bowels are moving well 08/19/2022: Patient doing much better Participating in therapy Pain is improved Check meds and labs 08/18/2022: Doing much better Daughter in law is at bedside from [place] Son wants to see Dr Steinberg when he sees patient on Sunday Refresh tears for right eye is needed Large BM today 08/17/2022: No major issues Pain controlled No falls In a good mood Slept well Checked meds 08/16/2022: Improved status Less pain Therapy going well Very slow recovery Right face edema improved 08/15/2022: No major issues Right eye less swollen Wrist pain noted so will give Oxycodone prior to therapy Used CPAP last night Tachy 100's Potassium 3.1 so ordered supplement Objective Exam Vital Signs Vital Signs Date Time Temp Pulse Resp B/P (MAP) Pulse Ox O2 Delivery O2 Flow Rate FiO2 08/21/22 21:30 Room Air 08/21/22 20:50 36.2 90 20 117/71 (86) 92 Capillary Refill : General Appearance: No Apparent Distress, WD/WN, Chronically ill HEENT: Pharynx Normal, Other (Right facial hematoma with edematous periorbital region) Neck: Full Range of Motion, Normal Inspection, Non Tender, Supple, Carotid Bruit Respiratory: Chest Non Tender, Lungs Clear, Normal Breath Sounds, No Accessory Muscle Use, No Respiratory Distress Cardiovascular: No Edema, No Gallop, No JVD, No Murmur, Normal Peripheral Pulses, Irregularly Irregular Gastrointestinal: Normal Bowel Sounds, No Organomegaly, No Pulsatile Mass, Non Tender, Soft Back: Normal Inspection, No CVA Tenderness, No Vertebral Tenderness Extremity: Normal Capillary Refill, Normal Inspection, Normal Range of Motion (Except right arm), Non Tender, No Calf Tenderness, No Pedal Edema Neurologic/Psychiatric: Alert, Oriented x3, Normal Mood/Affect, bi solutions architect II-XII Norm as Tested, Abnormal Gait, Motor Weakness (Right arm with sling) Skin: Normal Color, Warm/Dry Lymphatic: No Adenopathy Results/Procedures Lab Laboratory Tests 08/21/22 07:00 Patient resulted labs reviewed. FIM Transfers Therapy Code Descriptions/Definitions Functional [place] Measure: 0=Not Assessed/NA 4=Minimal Assistance 1=Total Assistance 5=Supervision or Setup 2=Maximal Assistance 6=Modified [place] 3=Moderate Assistance 7=Complete IndependenceSCALE: Activities may be completed with or without assistive devices. 8-Vjflwecstb-jctuytu completes the activity by him/herself with no assistance from a helper. 5-Set-up or Clean-up Assistance-helper sets up or cleans up; patient completes activity. [place] assists only prior to or following the activity. 4-Supervision or Touching Assistance-helper provides verbal cues and/or touching/steadying and/or contact guard assistance as patient completes activity. Assistance may be provided throughout the activity or intermittently. 3-Partial/Moderate Assistance-helper does LESS THAN HALF the effort. [place] lifts, holds or supports trunk or limbs, but provides less than half the effort. 2-Substantial/Maximal Assistance-helper does MORE THAN HALF the effort. [place] lifts or holds trunk or limbs and provides more than half the effort. 0-Delshccza-etrtyf does ALL the effort. Patient does none of the effort to complete the activity. Or, the assistance of 2 or more helpers is required for the patient to complete the activity. If activity was not attempted, code reason: 7-Patient Refused. 9-Not Applicable-not attempted and the patient did not perform the activity before the current illness, exacerbation or injury. 10-Not Attempted due to Environmental Limitations-(lack of equipment, weather restraints, etc.). 88-Not Attempted due to Medical Conditions or Safety Concerns. Roll Left to Right (QC): 3 Sit to Lying (QC): 4 Sit to Stand (QC): 5 Chair/Hjj-yy-Kxpdj Xfer(QC): 4 Car Transfer (QC): 3 Gait Training Does the Patient Walk?: Yes Distance: 300' Walk 10 feet (QC): 5 Walk 50 ft with 2 Turns(QC): 5 Walk 150 ft (QC): 5 Walking 10ft/uneven surface-QC: 4 Gait Persons Needed: 1 Gait Assistive Device: Cane Large Base Quad Wheelchair Training Does the Pt Use a Wheelchair?: No Wheel 50 ft with 2 turns (QC): 9 Wheel 150 ft (QC): 9 Type of Wheelchair: N/A Stair Training Stair Training: Handrails/: 1 handrail #of Steps: 4 1 Step (curb) (QC): 4 4 Steps (QC): 4 12 Steps (QC): 88 Stairs: Pattern: Step to Balance Picking up an Object (QC): 4 (CGA with cupola patcher arm) ADL-Treatment Eating (QC): 5 Oral Hygiene (QC): 6 Bathing Location: R Arm, L Upper Leg, R Upper Leg, Chest, Abdomen, Perineal Area Shower/Bathe Self (QC): 3 Upper Body Dressing (QC): 2 (Requires asssit w/ B UE and R sling) Lower Body Dressing (QC): 3 (Decrease use of RUE ROM) On/Off Footwear (QC): 5 (slip on shoes) Toileting Hygiene (QC): 4 (SBA, pt able to manage pant hike with increased time on R side.) Toilet Transfer (QC): 4 (SBA on/off toilet) Assessment/Plan Assessment and Plan Assess & Plan/Chief Complaint A/P: 1. Closed head injury: Negative for intracranial injury on CT. Continue monitoring for neurological symptoms and observe facial swelling. 2. Difficulty balancing/ambulating: PT/OT 3. Anticoagulated status secondary to afib: Continue monitoring facial swelling for sign of acute bleed. Hold Xarelto until facial swelling has subsided and patient has improved balance and gait since risk of bleeding outweighs the benefits of stroke prophylaxis right now 4. HTN Continue treating on home meds. 5. Hypokalemia: K of 3.5. Start on oral potassium replacement. Recheck CMP in 1- 2 days. 6. Anemia: HGB of 11, HCT of 34. Continue monitoring and recheck HGB, HCT. 7. Elevated bilirubin: Bilirubin of 1.7. Continue monitoring for jaundice or liver dysfunction and recheck CMP. 8. UA Abnormalities: Ketones 1+, Crystals Present, Amorphous Sediment Moderate. Likely due to dehydration. Push fluids and possible recheck. 9. HLD 10. Hypothyroidism 11. GERD 12. Reactive airway disease 13. JAS on CPAP 14. Hypokalemia Plan: Hold anticoagulation Aggressive rehab Pain control Supportive care Incentive spirometer 08/15/2022: Replace potassium Oxycodone for severe pain 08/16/2022: Monitor pain BM regimen 08/17/2022: Supportive care BM regimen 08/18/2022: Maintain potassium Pain control Refresh tears 08/19/2022: Supportive care Much improved status 08/20/2022: Continue aggressive therapy Dramatic improvement 08/21/2022: Sling maintained Monitor closely (1) Traumatic hematoma of face Status: Acute (2) Atrial fibrillation (3) Laceration of face Status: Acute (4) Chronic anticoagulation Status: Acute (5) Closed head injury Status: Acute (6) Closed right humeral fracture Status: Acute (7) Contusion of face Status: Acute (8) Fall on same level Status: Acute POLI HARGROVE DO Aug 21, 2022 09:47
--- NOTE | 2022-08-21 10:19 | Physical Therapy Daily Note ---
PT Daily Note-Current Subjective Pt sitting in reclienr upon arrival. Pt agrees to PT. Pain Section J - Health Conditions 1. Rarely or not at all 2. Occasionally 3. Frequently 4. Almost constantly 8. Unable to answer Pain Effect on Sleep: 2 Pain Interference with Therapy: 2 Pain Interference w/Day-to-Day: 2 Mental Status Patient Orientation: Person, Place, Time, Situation Attachments: Other-See Comments (Sling for R UE) Transfers SCALE: Activities may be completed with or without assistive devices. 1-Ufplbxmmzv-mutjhta completes the activity by him/herself with no assistance from a helper. 5-Set-up or Clean-up Assistance-helper sets up or cleans up; patient completes activity. [place] assists only prior to or following the activity. 4-Supervision or Touching Assistance-helper provides verbal cues and/or touching/steadying and/or contact guard assistance as patient completes activity. Assistance may be provided throughout the activity or intermittently. 3-Partial/Moderate Assistance-helper does LESS THAN HALF the effort. [place] lifts, holds or supports trunk or limbs, but provides less than half the effort. 2-Substantial/Maximal Assistance-helper does MORE THAN HALF the effort. [place] lifts or holds trunk or limbs and provides more than half the effort. 7-Abarulxqv-boxfjt does ALL the effort. Patient does none of the effort to complete the activity. Or, the assistance of 2 or more helpers is required for the patient to complete the activity. If activity was not attempted, code reason: 7-Patient Refused. 9-Not Applicable-not attempted and the patient did not perform the activity before the current illness, exacerbation or injury. 10-Not Attempted due to Environmental Limitations-(lack of equipment, weather restraints, etc.). 88-Not Attempted due to Medical Conditions or Safety Concerns. Roll Left & Right (QC): 5 Sit to Lying (QC): 5 Lying to Sitting/Side of Bed(Q: 5 Sit to Stand (QC): 5 Chair/Pbf-pa-Hdoke Xfer(QC): 5 Toilet Transfer (QC): 5 Car Transfer (QC): 5 Weight Bearing Right Lower Extremity: Right Weight Bearing/Tolerated Left Lower Extremity: Left Weight Bearing/Tolerated PATIENT IS NON-WEIGHT BEARING IN HER UPPER RIGHT EXTREMITY Gait Training Does the Patient Walk?: Yes Distance: 250', 150', 175' Walk 10 feet (QC): 5 Walk 50 ft with 2 Turns(QC): 5 Walk 150 ft (QC): 5 Walking 10ft/uneven surface-QC: 5 Gait Assistive Device: Cane Large Base Quad Attempted amb. w/o AD, pt drifts while amb. but this was baseline. Pt is able to self correct although this becomes more apparent when fatigued. Wheelchair Training Does the Pt Use a Wheelchair?: No Stair Training Stair Training: Handrails/: uses cane #of Steps: 8 1 Step (curb) (QC): 5 4 Steps (QC): 4 12 Steps (QC): 88 Stairs: Pattern: Step to Treatments Pt completed QC scoring items listed above before returning to room to rest at end of tx. All needs met, call light in hand. Assessment Current Status: Good Progress Pt is improving with balance and gait both with and w/o LBQC. PT Short Term Goals Short Term Goals Time Frame: Aug 21, 2022 Roll Left & Right: 4 (SBA) Sit to lyin (SBA) Lying to sitting on side of be: 4 (SBA) Sit to stand: 4 (CGA) Chair/gad-gn-lctet transfer: 4 (SBA) Toilet transfer: 4 (CGA) Car transfer: 4 (SBA) Walk 10 feet: 4 (SBA) Walk 50 feet with two turns: 4 (SBA) Walk 150 feet: 4 (SBA) Walking 10ft on uneven surface: 4 (SBA) 1 step (curb): 4 (SBA) 4 steps: 4 (CGA) 12 steps: 4 (CGA) Picking up objects: 4 (SBA) PT Dairy Processing Supervisor Goals Skilled Nursing Goals PT Skilled Nursing Goals Time Frame: Sep 04, 2022 Roll Left & Right (QC): 6 Sit to Lying (QC): 6 Lying-Sitting on Side/Bed(QC): 6 Sit to Stand (QC): 6 Chair/Xau-wa-Stqzg Xfer(QC): 6 Toilet Transfer (QC): 6 Car Transfer (QC): 6 Does the Patient Walk: Yes Walk 10 feet (QC): 6 Walk 50ft with 2 Turns (QC): 6 Walk 150 ft (QC): 6 Walking 10ft on Uneven Surface: 6 1 Step (curb) (QC): 6 4 Steps (QC): 6 12 Steps (QC): 6 Picking up an Object (QC): 6 (with optometry assistant arm) Wheel 50 feet with 2 turns (QC: 9 Wheel 150 feet: 9 PT Plan Treatment/Plan Treatment Plan: Continue Plan of Care Treatment Plan: Bed Mobility, Education, Functional Activity Jenae, Functional Strength, Gait, Safety, Therapeutic Exercise, Transfers Treatment Duration: Sep 04, 2022 Frequency: At least 5 of 7 days/Wk (IRF) Estimated Hrs Per Day: 1.5 hours per day Patient and/or Family Agrees t: Yes Time Time In: 915 Time Out: 1015 DATE: Aug 21, 2022 Total Billed Treatment Time: 60 Total Billed Treatment 1, GT x2 (30m) & FA x2 (30m) GENO GARLAND SPECIAL WEAPONS UNIT OFFICER Aug 21, 2022 10:19
--- NOTE | 2022-08-21 10:24 | Progress Note - Ortho ---
Progress Note Subjective Date of Exam 08/21/22 Chief Complaint Right Shoulder Fracture, recurrent fall HPI/Events since last exam Now 1 week out from recurrent fall and over 2 weeks out from initial injury, currently in rehab working on balance and strength Review of Systems - Allergies: Coded Allergies: Penicillins (Verified Allergy, Unknown, 08/15/22) apixaban (Verified Allergy, Unknown, Rash, 03/21/21) Home Meds Reported Medications Oxycodone HCl/Acetaminophen (Oxycodone-Acetaminophen 5-325) 5 Mg-325 Mg Tablet, 1 EACH PO Q6H PRN for PAIN-MODERATE (5-7) MDD 6, TAB 08/14/22 Tramadol HCl (Tramadol HCl) 50 Mg Tablet, 50 MG PO QID PRN for PAIN-MODERATE (5- 7), TAB 08/14/22 Fish Oil/Dha/Epa (Fish Oil 1,200 mg Fish Oil) 1,200 Mg-144 Mg-216 Mg Capsule, 1 EACH PO DAILY, CAP 08/14/22 Diltiazem HCl (Diltiazem 24Hr ER) 120 Mg Cap.er.24h, 120 MG PO BID, CAP 08/14/22 Venlafaxine HCl (Venlafaxine HCl ER) 75 Mg Cap.er.24h, 75 MG PO DAILY, CAP 08/14/22 Montelukast Sodium (Montelukast Sodium) 10 Mg Tablet, 10 MG PO HS, TAB 08/14/22 Rivaroxaban (Xarelto) 20 Mg Tablet, 20 MG PO DAILY, TAB 05/03/22 Ubidecarenone (Coq-10) 100 Mg Capsule, 100 MG PO DAILY, CAP 03/21/21 Cyanocobalamin (Vitamin B-12) (B-12) 1,000 Mcg Tablet, 1000 MCG PO DAILY, TAB 03/21/21 Cholecalciferol (Vitamin D3) (Vitamin D3) 25 Mcg (1000 Unit) Capsule, 25 MCG PO DAILY, CAP 03/21/21 Simvastatin (Simvastatin) 20 Mg Tablet, 20 MG PO HS, TAB 03/21/21 Pantoprazole Sodium (Pantoprazole Sodium) 40 Mg Tablet.dr, 40 MG PO DAILY 03/21/21 Levothyroxine Sodium (Levothyroxine Sodium) 88 Mcg Tablet, 88 MG PO DAILY 03/21/21 Metoprolol Succinate (Metoprolol Succinate) 50 Mg Tab.er.24h, 50 MG PO BID, TAB 03/21/21 Discontinued Reported Medications Budesonide/Glycopyr/Formoterol (Breztri Aerosphere Inhaler) 160 Mcg-9 Mcg-4.8 Mcg/Actuation Hfa.aer.ad, 10.7 GM IH BID, GM 05/03/22 Venlafaxine HCl (Venlafaxine HCl) 37.5 Mg Tab, 37.5 MG PO DAILY, TAB 05/03/22 Diltiazem HCl (Diltiazem HCl) 120 Mg Tablet, 120 MG PO BID, TAB 05/03/22 Discontinued Scripts Oxycodone HCl/Acetaminophen (Oxycodone-Acetaminophen 5-325) 5 Mg-325 Mg Tablet, 1 EACH PO Q4H PRN for PAIN-MODERATE MDD 6 for 3 Days, #15 TAB 0 Refills Prov:FER FLOYD CHARTER BOAT OPERATOR 08/02/22 Ondansetron (Ondansetron Odt) 4 Mg Tab.rapdis, 4 MG PO Q6H PRN for NAUSEA/VOMITING, #20 TAB 0 Refills Prov:FER FLOYD CHARTER BOAT OPERATOR 08/02/22 Objective Exam Sling in place to right arm Vital Signs Vital Signs Date Time Temp Pulse Resp B/P (MAP) Pulse Ox O2 Delivery O2 Flow Rate FiO2 08/21/22 08:59 Room Air 08/21/22 07:25 36.4 84 18 140/89 (106) 96 Room Air 08/20/22 20:02 98 Room Air 08/20/22 20:00 36.1 94 18 134/67 (89) 93 Room Air 08/20/22 20:00 NIV CPAP I & O 08/21/22 07:00 Intake Total 1540 ml Balance 1540 ml Lab Results Laboratory Tests 08/21/22 07:00: White Blood Count 7.1, Red Blood Count 4.34, Hemoglobin 11.8#, Hematocrit 37, Mean Corpuscular Volume 86, Mean Corpuscular Hemoglobin 27, Mean Corpuscular Hemoglobin Concent 32, Red Cell Distribution Width 15.7H, Platelet Count 380, Mean Platelet Volume 9.0, Immature Granulocyte % (Auto) 0, Neutrophils (%) (Auto) 62, Lymphocytes (%) (Auto) 21, Monocytes (%) (Auto) 11, Eosinophils (%) (Auto) 4, Basophils (%) (Auto) 1, Neutrophils # (Auto) 4.4, Lymphocytes # (Auto) 1.5, Monocytes # (Auto) 0.8, Eosinophils # (Auto) 0.3, Basophils # (Auto) 0.1, Immature Granulocyte # (Auto) 0.0, Sodium Level 139, Potassium Level 3.8, Chloride Level 102, Carbon Dioxide Level 25, Anion Gap 12, Blood Urea Nitrogen 13, Creatinine 0.77, Estimat Glomerular Filtration Rate 76, BUN/Creatinine Ratio 17, Glucose Level 97, Calcium Level 9.4, Corrected Calcium 9.6, Total Bilirubin 1.0, Aspartate Amino Transf (AST/SGOT) 29, Alanine Aminotransferase (ALT/SGPT) 34, Alkaline Phosphatase 156H, Total Protein 7.7, Albumin 3.8 Imaging 3 views of the right shoulder demonstrate a proximal humerus fracture with some medialization of the humeral shaft, similar to prior studies Assessment and Plan Assessment Right Proximal Humerus Fracture Problem List Right Proximal Humerus Fracture Plan Okay to continue with proximal humerus fracture therapy protocol Do not recommend surgical intervention at this point Follow up in [address] Adalid Steinberg Final Diagonsis Right Proximal Humerus Fracture Level of the visit: Level 3 (not billed) ADALID STEINBERG MD Aug 21, 2022 10:24
[2022-08-21] MEDS: ACETAMINOPHEN 500 MG TAB (TYLENOL) PO PRN ×2 (11:06→21:28)
--- NOTE | 2022-08-21 15:07 | Physical Therapy Daily Note ---
PT Daily Note-Current Subjective Pt sitting in recliner upon arrival. Pt agrees to PT. Pain Section J - Health Conditions 1. Rarely or not at all 2. Occasionally 3. Frequently 4. Almost constantly 8. Unable to answer Pain Effect on Sleep: 2 Pain Interference with Therapy: 2 Pain Interference w/Day-to-Day: 2 Mental Status Patient Orientation: Person, Place, Time, Situation Attachments: Other-See Comments (Sling for R UE) Transfers SCALE: Activities may be completed with or without assistive devices. 0-Wmsroyibnt-ninxayo completes the activity by him/herself with no assistance from a helper. 5-Set-up or Clean-up Assistance-helper sets up or cleans up; patient completes activity. [place] assists only prior to or following the activity. 4-Supervision or Touching Assistance-helper provides verbal cues and/or touching/steadying and/or contact guard assistance as patient completes activity. Assistance may be provided throughout the activity or intermittently. 3-Partial/Moderate Assistance-helper does LESS THAN HALF the effort. [place] lifts, holds or supports trunk or limbs, but provides less than half the effort. 2-Substantial/Maximal Assistance-helper does MORE THAN HALF the effort. [place] lifts or holds trunk or limbs and provides more than half the effort. 4-Oordbiycq-uggksa does ALL the effort. Patient does none of the effort to complete the activity. Or, the assistance of 2 or more helpers is required for the patient to complete the activity. If activity was not attempted, code reason: 7-Patient Refused. 9-Not Applicable-not attempted and the patient did not perform the activity before the current illness, exacerbation or injury. 10-Not Attempted due to Environmental Limitations-(lack of equipment, weather restraints, etc.). 88-Not Attempted due to Medical Conditions or Safety Concerns. Sit to Stand (QC): 6 Weight Bearing Right Lower Extremity: Right Weight Bearing/Tolerated Left Lower Extremity: Left Weight Bearing/Tolerated PATIENT IS NON-WEIGHT BEARING IN HER UPPER RIGHT EXTREMITY Gait Training Does the Patient Walk?: Yes Distance: 175' x2 Walk 10 feet (QC): 5 Walk 50 ft with 2 Turns(QC): 5 Walk 150 ft (QC): 5 Gait Assistive Device: Cane Large Base Quad Wheelchair Training Does the Pt Use a Wheelchair?: No Balance Picking up an Object (QC): 5 Treatments Pt TF to standing and picks up object from floor. Pt amb. in hallway before working on balance on AirEx mat in //bars. Pt is able to stand for ~3m with only a couple self corrections. Pt then works on dynamic standing balance balloon bat in //bars. Pt returns to room to rest at end of tx. All needs met, call light in hand. Assessment Current Status: Good Progress Pt is improving but still having occasional LOB that she self corrects. PT Short Term Goals Short Term Goals Time Frame: Aug 21, 2022 Roll Left & Right: 4 (SBA) Sit to lyin (SBA) Lying to sitting on side of be: 4 (SBA) Sit to stand: 4 (CGA) Chair/mhn-ii-gohuc transfer: 4 (SBA) Toilet transfer: 4 (CGA) Car transfer: 4 (SBA) Walk 10 feet: 4 (SBA) Walk 50 feet with two turns: 4 (SBA) Walk 150 feet: 4 (SBA) Walking 10ft on uneven surface: 4 (SBA) 1 step (curb): 4 (SBA) 4 steps: 4 (CGA) 12 steps: 4 (CGA) Picking up objects: 4 (SBA) PT Pipe Line Walker Goals Pipe Line Walker Goals PT Pipe Line Walker Goals Time Frame: Sep 04, 2022 Roll Left & Right (QC): 6 Sit to Lying (QC): 6 Lying-Sitting on Side/Bed(QC): 6 Sit to Stand (QC): 6 Chair/Dyb-yb-Etgxe Xfer(QC): 6 Toilet Transfer (QC): 6 Car Transfer (QC): 6 Does the Patient Walk: Yes Walk 10 feet (QC): 6 Walk 50ft with 2 Turns (QC): 6 Walk 150 ft (QC): 6 Walking 10ft on Uneven Surface: 6 1 Step (curb) (QC): 6 4 Steps (QC): 6 12 Steps (QC): 6 Picking up an Object (QC): 6 (with dean of faculty arm) Wheel 50 feet with 2 turns (QC: 9 Wheel 150 feet: 9 PT Plan Problem List Problem List: Activity Tolerance, Balance Treatment/Plan Treatment Plan: Continue Plan of Care Treatment Plan: Bed Mobility, Education, Functional Activity Jenae, Functional Strength, Gait, Safety, Therapeutic Exercise, Transfers Treatment Duration: Sep 04, 2022 Frequency: At least 5 of 7 days/Wk (IRF) Estimated Hrs Per Day: 1.5 hours per day Patient and/or Family Agrees t: Yes Time Time In: 1300 Time Out: 1330 DATE: Aug 21, 2022 Total Billed Treatment Time: 30 Total Billed Treatment 1, GT (10m) & FA (20m) GENO GARLAND MANAGER HAIR Aug 21, 2022 15:07
--- NOTE | 2022-08-21 15:36 | Physical Therapy Progress Note ---
Therapy Progress Note Pt needs a Large Base Quad Cane for improved mobility as pt is not safe at this time to use a Single Point Cane or no Assistive Device. Pt is still demonstrating balance deficits which are improved with the use of a Large Base Quad Cane. Pt is proficient and is comfortable maneuvering with this device. GENO GARLAND VENEREAL DISEASE CONTROL HEAD Aug 21, 2022 15:36
[2022-08-21 20:50] VITALS: BP 117/71
[2022-08-21] MEDS: MELATONIN 3 MG TABLET PO PRN (21:29)
[2022-08-21] MEDS: MONTELUKAST 10 MG (SINGULAIR) TAB PO SCH (21:31)
[2022-08-21] MEDS: ROSUVASTATIN 5 MG (CRESTOR) TABLET PO SCH (21:31)
--- NOTE | 2022-08-22 05:36 | PM&R Progress Note ---
Subjective HPI/CC On Admission Date Seen by Provider: Aug 22, 2022 Time Seen by Provider: 08:45 Subjective/Events-last exam 08/22/2022: Pt is doing pretty well except for insomnia, anything I can give her for insomnia will place her at risk for falls Bowels moved on 08/2008/21/2022: Pt is doing pretty well Labs are improved Sutures will be taken out today Pain is controlled Right arm is in a sling 08/20/2022: Patient doing well Walking well No falls Pain controlled Bowels are moving well 08/19/2022: Patient doing much better Participating in therapy Pain is improved Check meds and labs 08/18/2022: Doing much better Daughter in law is at bedside from [place] Son wants to see Dr Steinberg when he sees patient on Sunday Refresh tears for right eye is needed Large BM today 08/17/2022: No major issues Pain controlled No falls In a good mood Slept well Checked meds 08/16/2022: Improved status Less pain Therapy going well Very slow recovery Right face edema improved 08/15/2022: No major issues Right eye less swollen Wrist pain noted so will give Oxycodone prior to therapy Used CPAP last night Tachy 100's Potassium 3.1 so ordered supplement Review of Systems General: Fatigue, Malaise Musculoskeletal: arm pain Objective Exam Vital Signs Vital Signs Date Time Temp Pulse Resp B/P (MAP) Pulse Ox O2 Delivery O2 Flow Rate FiO2 08/22/22 20:32 97 Room Air 0.00 08/22/22 20:00 36.6 91 18 127/66 (86) Capillary Refill : General Appearance: No Apparent Distress, WD/WN, Chronically ill HEENT: Pharynx Normal, Other (Right facial hematoma with edematous periorbital region) Neck: Full Range of Motion, Normal Inspection, Non Tender, Supple, Carotid Bruit Respiratory: Chest Non Tender, Lungs Clear, Normal Breath Sounds, No Accessory Muscle Use, No Respiratory Distress Cardiovascular: No Edema, No Gallop, No JVD, No Murmur, Normal Peripheral Pulses, Irregularly Irregular Gastrointestinal: Normal Bowel Sounds, No Organomegaly, No Pulsatile Mass, Non Tender, Soft Back: Normal Inspection, No CVA Tenderness, No Vertebral Tenderness Extremity: Normal Capillary Refill, Normal Inspection, Normal Range of Motion (Except right arm), Non Tender, No Calf Tenderness, No Pedal Edema Neurologic/Psychiatric: Alert, Oriented x3, Normal Mood/Affect, system auditor II-XII Norm as Tested, Abnormal Gait, Motor Weakness (Right arm with sling) Skin: Normal Color, Warm/Dry Lymphatic: No Adenopathy Results/Procedures Lab Patient resulted labs reviewed. FIM Transfers Therapy Code Descriptions/Definitions Functional [place] Measure: 0=Not Assessed/NA 4=Minimal Assistance 1=Total Assistance 5=Supervision or Setup 2=Maximal Assistance 6=Modified [place] 3=Moderate Assistance 7=Complete IndependenceSCALE: Activities may be completed with or without assistive devices. 8-Zcqojhfpfd-heggztp completes the activity by him/herself with no assistance from a helper. 5-Set-up or Clean-up Assistance-helper sets up or cleans up; patient completes activity. [place] assists only prior to or following the activity. 4-Supervision or Touching Assistance-helper provides verbal cues and/or t ouching/steadying and/or contact guard assistance as patient completes activity. Assistance may be provided throughout the activity or intermittently. 3-Partial/Moderate Assistance-helper does LESS THAN HALF the effort. [place] lifts, holds or supports trunk or limbs, but provides less than half the effort. 2-Substantial/Maximal Assistance-helper does MORE THAN HALF the effort. [place] lifts or holds trunk or limbs and provides more than half the effort. 9-Krswynxyh-apbshn does ALL the effort. Patient does none of the effort to complete the activity. Or, the assistance of 2 or more helpers is required for the patient to complete the activity. If activity was not attempted, code reason: 7-Patient Refused. 9-Not Applicable-not attempted and the patient did not perform the activity before the current illness, exacerbation or injury. 10-Not Attempted due to Environmental Limitations-(lack of equipment, weather restraints, etc.). 88-Not Attempted due to Medical Conditions or Safety Concerns. Roll Left to Right (QC): 5 Sit to Lying (QC): 5 Sit to Stand (QC): 6 Chair/Myc-zy-Bggvs Xfer(QC): 5 Car Transfer (QC): 5 Gait Training Does the Patient Walk?: Yes Distance: 175' x2 Walk 10 feet (QC): 5 Walk 50 ft with 2 Turns(QC): 5 Walk 150 ft (QC): 5 Walking 10ft/uneven surface-QC: 5 Gait Persons Needed: 1 Gait Assistive Device: Cane Large Base Quad Wheelchair Training Does the Pt Use a Wheelchair?: No Wheel 50 ft with 2 turns (QC): 9 Wheel 150 ft (QC): 9 Type of Wheelchair: N/A Stair Training Stair Training: Handrails/: uses cane #of Steps: 8 1 Step (curb) (QC): 5 4 Steps (QC): 4 12 Steps (QC): 88 Stairs: Pattern: Step to Balance Picking up an Object (QC): 5 ADL-Treatment Eating (QC): 5 Oral Hygiene (QC): 6 Bathing Location: R Arm, L Upper Leg, R Upper Leg, Chest, Abdomen, Perineal Area Shower/Bathe Self (QC): 3 Upper Body Dressing (QC): 2 (Requires asssit w/ B UE and R sling) Lower Body Dressing (QC): 3 (Decrease use of RUE ROM) On/Off Footwear (QC): 5 (slip on shoes) Toileting Hygiene (QC): 4 (SBA, pt able to manage pant hike with increased time on R side.) Toilet Transfer (QC): 4 (SBA on/off toilet) Assessment/Plan Assessment and Plan Assess & Plan/Chief Complaint A/P: 1. Closed head injury: Negative for intracranial injury on CT. Continue monitoring for neurological symptoms and observe facial swelling. 2. Difficulty balancing/ambulating: PT/OT 3. Anticoagulated status secondary to afib: Continue monitoring facial swelling for sign of acute bleed. Hold Xarelto until facial swelling has subsided and patient has improved balance and gait since risk of bleeding outweighs the be nefits of stroke prophylaxis right now 4. HTN Continue treating on home meds. 5. Hypokalemia: K of 3.5. Start on oral potassium replacement. Recheck CMP in 1- 2 days. 6. Anemia: HGB of 11, HCT of 34. Continue monitoring and recheck HGB, HCT. 7. Elevated bilirubin: Bilirubin of 1.7. Continue monitoring for jaundice or liver dysfunction and recheck CMP. 8. UA Abnormalities: Ketones 1+, Crystals Present, Amorphous Sediment Moderate. Likely due to dehydration. Push fluids and possible recheck. 9. HLD 10. Hypothyroidism 11. GERD 12. Reactive airway disease 13. JAS on CPAP 14. Hypokalemia 15. Insomnia Plan: Hold anticoagulation Aggressive rehab Pain control Supportive care Incentive spirometer 08/15/2022: Replace potassium Oxycodone for severe pain 08/16/2022: Monitor pain BM regimen 08/17/2022: Supportive care BM regimen 08/18/2022: Maintain potassium Pain control Refresh tears 08/19/2022: Supportive care Much improved status 08/20/2022: Continue aggressive therapy Dramatic improvement 08/21/2022: Sling maintained Monitor closely 08/22/2022: Supportive care (1) Traumatic hematoma of face Status: Acute (2) Atrial fibrillation (3) Laceration of face Status: Acute (4) Chronic anticoagulation Status: Acute (5) Closed head injury Status: Acute (6) Closed right humeral fracture Status: Acute (7) Contusion of face Status: Acute (8) Fall on same level Status: Acute POLI HARGROVE DO Aug 22, 2022 05:36
[2022-08-22] MEDS: LEVOTHYROXINE 88 MCG (LEVOTHORID) TAB PO SCH (06:35)
[2022-08-22 07:34] VITALS: BP 128/82
[2022-08-22] MEDS: KCL 10 MEQ TAB (MICRO K) PO SCH ×2 (08:43→18:32)
[2022-08-22] MEDS: meTOproloL SUCCINATE 50 MG (TOPROL XL) TAB PO SCH ×2 (08:53→20:26)
[2022-08-22] MEDS: VENlafaxine XR 75 MG (EFFEXOR XR) CAP PO SCH (08:53)
[2022-08-22] MEDS: dilTIAZem120 MG (CARDIZEM CD) CAP PO SCH ×2 (08:53→20:26)
[2022-08-22] MEDS: PANTOPRAZOLE 40 MG (PROTONIX) TAB PO SCH (08:53)
[2022-08-22] MEDS: CYANOCOBALAMIN 1,000 MCG (VITAMIN B-12) TABLET PO SCH (08:53)
[2022-08-22] MEDS: OMEGA 3 (FISH OIL) 1000 MG CAP PO SCH (08:53)
[2022-08-22] MEDS: VITAMIN D3 25 MCG (1,000 UNITS) TABLET PO SCH (08:53)
[2022-08-22] MEDS: COQ10 100 MG PO SCH (08:54)
[2022-08-22] MEDS: ACETAMINOPHEN 500 MG TAB (TYLENOL) PO PRN (09:01)
--- NOTE | 2022-08-22 10:23 | Occupational Ther Daily Note ---
OT Current Status-Daily Note Subjective Pt eating in recliner on arrival Mental Status/Objective Patient Orientation: Person, Confused, Place, Time, Situation Attachments: Other-See Comments sling with waist binder ADL-Treatment Full body shower w/ recommendation for [facility] at [facility]. Therapy Code Descriptions/Definitions Functional [place] Measure: 0=Not Assessed/NA 4=Minimal Assistance 1=Total Assistance 5=Supervision or Setup 2=Maximal Assistance 6=Modified [place] 3=Moderate Assistance 7=Complete IndependenceSCALE: Activities may be completed with or without assistive devices. 8-Ctdekhvwrx-lcveokn completes the activity by him/herself with no assistance from a helper. 5-Set-up or Clean-up Assistance-helper sets up or cleans up; patient completes activity. [place] assists only prior to or following the activity. 4-Supervision or Touching Assistance-helper provides verbal cues and/or touching/steadying and/or contact guard assistance as patient completes activity. Assistance may be provided throughout the activity or intermittently. 3-Partial/Moderate Assistance-helper does LESS THAN HALF the effort. [place] lifts, holds or supports trunk or limbs, but provides less than half the effort. 2-Substantial/Maximal Assistance-helper does MORE THAN HALF the effort. [place] lifts or holds trunk or limbs and provides more than half the effort. 7-Dylozqyly-bpjqqq does ALL the effort. Patient does none of the effort to complete the activity. Or, the assistance of 2 or more helpers is required for the patient to complete the activity. If activity was not attempted, code reason: 7-Patient Refused. 9-Not Applicable-not attempted and the patient did not perform the activity before the current illness, exacerbation or injury. 10-Not Attempted due to Environmental Limitations-(lack of equipment, weather restraints, etc.). 88-Not Attempted due to Medical Conditions or Safety Concerns. Eating (QC): 7 Oral Hygiene (QC): 5 Bathing Location: R Arm, L Upper Leg, R Upper Leg, L Lower Leg (including foot), R Lower Leg (including foot), Chest, Abdomen, Buttocks, Perineal Area Shower/Bathe Self (QC): 4 Upper Body Dressing (QC): 4 Lower Body Dressing (QC): 4 On/Off Footwear: 5 Toileting Hygiene (QC): 5 Toilet Transfer (QC): 5 Forgetful of RUE precautions during ADLS Education OT Patient Education: Correct positioning, Exercise program, Instructions don/doff splint/brace, Modified ADL techniques, Progress toward Goal/Update tx plan, Purpose of tx/functional activities, Reviewed precautions, Safety issues, Transfer techniques, Use of adapted equipment Teaching Recipient: Patient Teaching Methods: Demonstration, Discussion Response to Teaching: Verbalize Understanding, Return Demonstration, Reinforcement Needed OT Short Term Goals Short Term Goals Time Frame: Aug 25, 2022 Shower/bathe self: 3 Lower body dressin OT Captain Airline Pilot Goals Captain Airline Pilot Goals Time Frame: Sep 15, 2022 Acute change in mental status: 0 Inattention: 0 Disorganized thinkin Altered level of consciousness: 0 Eating (QC): 6 Oral Hygiene (QC): 6 Toileting Hygiene (QC): 6 Shower/Bathe Self (QC): 6 Upper Body Dressing (QC): 6 Lower Body Dressing (QC): 6 On/Off Footwear (QC): 6 Additional Goals: 1-Demonstrate ADL Tasks, 2-Verbalize Understanding, 3- ImproveStrength/Jenae 1=Demonstrate adherence to instructed precautions during ADL tasks. 2=Patient will verbalize/demonstrate understanding of assistive devices/modifications for ADL. 3=Patient will improve strength/tolerance for activity to enable patient to perform ADL's. OT Education/Plan Discharge Recommendations Plan/Recommendations: Discontinue OT Therapy Discharge Recommendati: Intermittent Supervision, Assisted Living, Bath Aide, Post Acute PT, Post Acute OT Equpiment Recommendations-D/C: Rails on Tub/Shower, Toilet Riser with Rails, Bath Chair, Extended Shower Sprayer Treatment Plan/Plan of Care Patient would benefit from OT for education, treatment and training to promote independence in ADL's, mobility, safety and/or upper extremity function for ADL's. Plan of Care: ADL Retraining, Functional Mobility, Group Exercise/Act as Ind, UE Funct Exercise/Act Treatment Duration: Sep 15, 2022 Frequency: At least 5 of 7 days/Wk (IRF) Estimated Hrs Per Day: 1.5 hours per day Agreement: Yes Rehab Potential: Fair Time Start Time: 08:42 Stop Time: 10:00 DATE: Aug 22, 2022 Total Time Billed (hr/min): 74 Billed Treatment Time 1 visit ADL 3 (38m) EX 2 (23m) FA 1 (13m) CHACORTA ESQUIVEL OT Aug 22, 2022 10:23
[2022-08-22] MEDS: polyethylene glycoL POWDER 17 GM (MIRALAX) PACK PO SCH ×2 (12:01→21:47)
[2022-08-22] MEDS: SENNA W/DOCUSATE (SENOKOT S) TABLET PO SCH ×2 (12:01→21:47)
[2022-08-22] MEDS: DOCUSATE SODIUM 100 MG (COLACE) CAP PO SCH ×2 (12:01→21:47)
--- NOTE | 2022-08-22 13:25 | Physical Therapy Daily Note ---
PT Daily Note-Current Subjective Pt sitting in recliner upon arrival. Pt agrees to PT although reports just waking up as pt did not sleep well last night. Pain Location: Right Location Body Site: Shoulder (Pt reports scapula tightness & reported to Nurse) Section J - Health Conditions 1. Rarely or not at all 2. Occasionally 3. Frequently 4. Almost constantly 8. Unable to answer Pain Effect on Sleep: 2 Pain Interference with Therapy: 2 Pain Interference w/Day-to-Day: 2 Mental Status Patient Orientation: Person, Place, Time, Situation Attachments: Other-See Comments (Sling for R UE) Transfers SCALE: Activities may be completed with or without assistive devices. 2-Vahwkizpju-wjwolsp completes the activity by him/herself with no assistance from a helper. 5-Set-up or Clean-up Assistance-helper sets up or cleans up; patient completes activity. [place] assists only prior to or following the activity. 4-Supervision or Touching Assistance-helper provides verbal cues and/or touching/steadying and/or contact guard assistance as patient completes activity. Assistance may be provided throughout the activity or intermittently. 3-Partial/Moderate Assistance-helper does LESS THAN HALF the effort. [place] lifts, holds or supports trunk or limbs, but provides less than half the effort. 2-Substantial/Maximal Assistance-helper does MORE THAN HALF the effort. [place] lifts or holds trunk or limbs and provides more than half the effort. 3-Hkyvlqnqt-rfwgpz does ALL the effort. Patient does none of the effort to compl ete the activity. Or, the assistance of 2 or more helpers is required for the patient to complete the activity. If activity was not attempted, code reason: 7-Patient Refused. 9-Not Applicable-not attempted and the patient did not perform the activity before the current illness, exacerbation or injury. 10-Not Attempted due to Environmental Limitations-(lack of equipment, weather restraints, etc.). 88-Not Attempted due to Medical Conditions or Safety Concerns. Sit to Stand (QC): 5 Toilet Transfer (QC): 5 Weight Bearing Right Lower Extremity: Right Weight Bearing/Tolerated Left Lower Extremity: Left Weight Bearing/Tolerated PATIENT IS NON-WEIGHT BEARING IN HER UPPER RIGHT EXTREMITY Gait Training Does the Patient Walk?: Yes Distance: 200', 500' Walk 10 feet (QC): 5 Walk 50 ft with 2 Turns(QC): 5 Walk 150 ft (QC): 4 Gait Assistive Device: Cane Large Base Quad Pt has a couple of ekaterina LOB but pt able to self correct. Wheelchair Training Does the Pt Use a Wheelchair?: No Treatments TF to standing and uses BR then amb. in hallway before returning to room to rest in recliner for lunch. All needs met, call light in hand. Assessment Current Status: Good Progress Pt has improved with strengthening, mobility and transfers but still demonstrates occasional fatigue and LOB due to fatigue. PT Short Term Goals Short Term Goals Time Frame: Aug 21, 2022 Roll Left & Right: 4 (SBA) Sit to lyin (SBA) Lying to sitting on side of be: 4 (SBA) Sit to stand: 4 (CGA) Chair/wja-ru-shytr transfer: 4 (SBA) Toilet transfer: 4 (CGA) Car transfer: 4 (SBA) Walk 10 feet: 4 (SBA) Walk 50 feet with two turns: 4 (SBA) Walk 150 feet: 4 (SBA) Walking 10ft on uneven surface: 4 (SBA) 1 step (curb): 4 (SBA) 4 steps: 4 (CGA) 12 steps: 4 (CGA) Picking up objects: 4 (SBA) PT Test Baker Goals Usp Goals PT Test Baker Goals Time Frame: Sep 04, 2022 Roll Left & Right (QC): 6 Sit to Lying (QC): 6 Lying-Sitting on Side/Bed(QC): 6 Sit to Stand (QC): 6 Chair/Plb-ie-Dzosl Xfer(QC): 6 Toilet Transfer (QC): 6 Car Transfer (QC): 6 Does the Patient Walk: Yes Walk 10 feet (QC): 6 Walk 50ft with 2 Turns (QC): 6 Walk 150 ft (QC): 6 Walking 10ft on Uneven Surface: 6 1 Step (curb) (QC): 6 4 Steps (QC): 6 12 Steps (QC): 6 Picking up an Object (QC): 6 (with icebox worker arm) Wheel 50 feet with 2 turns (QC: 9 Wheel 150 feet: 9 PT Plan Problem List Problem List: Activity Tolerance, Balance Treatment/Plan Treatment Plan: Continue Plan of Care Treatment Plan: Bed Mobility, Education, Functional Activity Jenae, Functional Strength, Gait, Safety, Therapeutic Exercise, Transfers Treatment Duration: Sep 04, 2022 Frequency: At least 5 of 7 days/Wk (IRF) Estimated Hrs Per Day: 1.5 hours per day Patient and/or Family Agrees t: Yes Safety Risks/Education Patient Education: Gait Training, Safety Issues Teaching Recipient: Patient Teaching Methods: Discussion Response to Teaching: Verbalize Understanding Time Time In: 1130 Time Out: 1200 DATE: Aug 22, 2022 Total Billed Treatment Time: 30 Total Billed Treatment 1, FA (10m) & GT (20m) GENO [place]AR[place] FREELANCE GRAPHIC DESIGNER Aug 22, 2022 13:25
--- NOTE | 2022-08-22 14:08 | Physical Therapy Daily Note ---
PT Daily Note-Current Subjective Pt found sitting in chair upon arrival. Agreed to PT. Pt does not report any pain pre-Tx. Pain Numeric Pain Scale: 0-No Pain Section J - Health Conditions 1. Rarely or not at all 2. Occasionally 3. Frequently 4. Almost constantly 8. Unable to answer Pain Effect on Sleep: 2 Pain Interference with Therapy: 2 Pain Interference w/Day-to-Day: 2 Mental Status Patient Orientation: Person, Time, Situation Transfers SCALE: Activities may be completed with or without assistive devices. 2-Xkvjniacmr-hshvpyr completes the activity by him/herself with no assistance from a helper. 5-Set-up or Clean-up Assistance-helper sets up or cleans up; patient completes activity. [place] assists only prior to or following the activity. 4-Supervision or Touching Assistance-helper provides verbal cues and/or touching/steadying and/or contact guard assistance as patient completes activity. Assistance may be provided throughout the activity or intermittently. 3-Partial/Moderate Assistance-helper does LESS THAN HALF the effort. [place] lifts, holds or supports trunk or limbs, but provides less than half the effort. 2-Substantial/Maximal Assistance-helper does MORE THAN HALF the effort. [place] lifts or holds trunk or limbs and provides more than half the effort. 1-Qqwozfpeh-zfebpz does ALL the effort. Patient does none of the effort to complete the activity. Or, the assistance of 2 or more helpers is required for the patient to complete the activity. If activity was not attempted, code reason: 7-Patient Refused. 9-Not Applicable-not attempted and the patient did not perform the activity before the current illness, exacerbation or injury. 10-Not Attempted due to Environmental Limitations-(lack of equipment, weather restraints, etc.). 88-Not Attempted due to Medical Conditions or Safety Concerns. Sit to Stand (QC): 5 Pt is independent /c sit<->trfs. Weight Bearing Right Lower Extremity: Right Weight Bearing/Tolerated Left Lower Extremity: Left Weight Bearing/Tolerated PATIENT IS NON-WEIGHT BEARING IN HER UPPER RIGHT EXTREMITY Gait Training Does the Patient Walk?: Yes Distance: 500ft, 100ft Walk 10 feet (QC): 5 Walk 50 ft with 2 Turns(QC): 5 Walk 150 ft (QC): 5 Gait Assistive Device: Cane Large Base Quad Pt amb. 600ft total. Wheelchair Training Does the Pt Use a Wheelchair?: No Stair Training Stair Training: Handrails/: 1 handrail, uses cane #of Steps: 4 Pt uses quad cane while ascending steps and handrail while descending steps. Exercises Standin way Ex=Flex, Abd, Ext, Step-ups Standing Reps: 15 Pt tolerates standing exercises well this visit /c RBs b/t exercises. Pt performed ball taps for 5min and stood on air-x for 4min. Assessment Current Status: Excellent Progress Pt continues to demonstrate improved gait and balance this visit. Requires RBs between exercises. Pt reports minor dizziness during standing exercises. Continue to progress pt as tolerated to improve functional and balance deficits. PT Short Term Goals Short Term Goals Time Frame: Aug 21, 2022 Roll Left & Right: 4 (SBA) Sit to lyin (SBA) Lying to sitting on side of be: 4 (SBA) Sit to stand: 4 (CGA) Chair/bxa-vy-ibhen transfer: 4 (SBA) Toilet transfer: 4 (CGA) Car transfer: 4 (SBA) Walk 10 feet: 4 (SBA) Walk 50 feet with two turns: 4 (SBA) Walk 150 feet: 4 (SBA) Walking 10ft on uneven surface: 4 (SBA) 1 step (curb): 4 (SBA) 4 steps: 4 (CGA) 12 steps: 4 (CGA) Picking up objects: 4 (SBA) PT Cracking And Fanning Machine Operator Goals Retirement Goals PT Retirement Goals Time Frame: Sep 04, 2022 Roll Left & Right (QC): 6 Sit to Lying (QC): 6 Lying-Sitting on Side/Bed(QC): 6 Sit to Stand (QC): 6 Chair/Whk-fx-Mrtzh Xfer(QC): 6 Toilet Transfer (QC): 6 Car Transfer (QC): 6 Does the Patient Walk: Yes Walk 10 feet (QC): 6 Walk 50ft with 2 Turns (QC): 6 Walk 150 ft (QC): 6 Walking 10ft on Uneven Surface: 6 1 Step (curb) (QC): 6 4 Steps (QC): 6 12 Steps (QC): 6 Picking up an Object (QC): 6 (with aerospace engineer arm) Wheel 50 feet with 2 turns (QC: 9 Wheel 150 feet: 9 PT Plan Treatment/Plan Treatment Plan: Continue Plan of Care Treatment Plan: Bed Mobility, Education, Functional Activity Jenae, Functional Strength, Gait, Safety, Therapeutic Exercise, Transfers Treatment Duration: Sep 04, 2022 Frequency: At least 5 of 7 days/Wk (IRF) Estimated Hrs Per Day: 1.5 hours per day Patient and/or Family Agrees t: Yes Time Time In: 1300 Time Out: 1400 DATE: Aug 22, 2022 Total Billed Treatment Time: 60 Total Billed Treatment 1 visit GT 2 EX 1 FA 1 GELACIO PARKER MINIATURE TRAIN DRIVER Aug 22, 2022 14:08
--- NOTE | 2022-08-22 14:27 | Occupational Ther Daily Note ---
OT Current Status-Daily Note Subjective Pt in recliner, alert. Agrees to therapy. C/o no pain. Pt confused and hyperverbal. States no one here has done therapy on her R UE. Mental Status/Objective Patient Orientation: Person, Confused ADL-Treatment Therapy Code Descriptions/Definitions Functional [place] Measure: 0=Not Assessed/NA 4=Minimal Assistance 1=Total Assistance 5=Supervision or Setup 2=Maximal Assistance 6=Modified [place] 3=Moderate Assistance 7=Complete IndependenceSCALE: Activities may be completed with or without assistive devices. 0-Bppuqbigov-mrjbybu completes the activity by him/herself with no assistance from a helper. 5-Set-up or Clean-up Assistance-helper sets up or cleans up; patient completes activity. [place] assists only prior to or following the activity. 4-Supervision or Touching Assistance-helper provides verbal cues and/or touching/steadying and/or contact guard assistance as patient completes activity. Assistance may be provided throughout the activity or intermittently. 3-Partial/Moderate Assistance-helper does LESS THAN HALF the effort. [place] lifts, holds or supports trunk or limbs, but provides less than half the effort. 2-Substantial/Maximal Assistance-helper does MORE THAN HALF the effort. [place] lifts or holds trunk or limbs and provides more than half the effort. 4-Glpoulzsg-unqmql does ALL the effort. Patient does none of the effort to complete the activity. Or, the assistance of 2 or more helpers is required for the patient to complete the activity. If activity was not attempted, code reason: 7-Patient Refused. 9-Not Applicable-not attempted and the patient did not perform the activity before the current illness, exacerbation or injury. 10-Not Attempted due to Environmental Limitations-(lack of equipment, weather restraints, etc.). 88-Not Attempted due to Medical Conditions or Safety Concerns. Other Treatment Pt participated in 10 reps of 5 different UE exercises with L UE to increase strength for mobility and self care skills. Skilled instruction provided for proper technique and form. Phone/Call light in reach and pt in recliner at end of session. All needs met. Education OT Patient Education: Home exercise program Teaching Recipient: Patient Teaching Methods: Demonstration, Handout, Discussion Response to Teaching: Verbalize Understanding, Return Demonstration OT Short Term Goals Short Term Goals Time Frame: Aug 25, 2022 Shower/bathe self: 3 Lower body dressin OT Cras Goals Cras Goals Time Frame: Sep 15, 2022 Acute change in mental status: 0 Inattention: 0 Disorganized thinkin Altered level of consciousness: 0 Eating (QC): 6 Oral Hygiene (QC): 6 Toileting Hygiene (QC): 6 Shower/Bathe Self (QC): 6 Upper Body Dressing (QC): 6 Lower Body Dressing (QC): 6 On/Off Footwear (QC): 6 Additional Goals: 1-Demonstrate ADL Tasks, 2-Verbalize Understanding, 3-I mproveStrength/Jenae 1=Demonstrate adherence to instructed precautions during ADL tasks. 2=Patient will verbalize/demonstrate understanding of assistive devices/modifications for ADL. 3=Patient will improve strength/tolerance for activity to enable patient to perform ADL's. OT Education/Plan Problem List/Assessment Assessment: Decreased Activ Tolerance, Decreased UE Strength, Impaired Cognition, Impaired I ADL's, Impaired Self-Care Skills, Restricted Funct UE ROM Discharge Recommendations Plan/Recommendations: Continue POC Treatment Plan/Plan of Care Patient would benefit from OT for education, treatment and training to promote independence in ADL's, mobility, safety and/or upper extremity function for ADL's. Plan of Care: ADL Retraining, Functional Mobility, Group Exercise/Act as Ind, UE Funct Exercise/Act Treatment Duration: Sep 15, 2022 Frequency: At least 5 of 7 days/Wk (IRF) Estimated Hrs Per Day: 1.5 hours per day Agreement: Yes Rehab Potential: Fair Time Start Time: 14:00 Stop Time: 14:16 DATE: Aug 22, 2022 Total Time Billed (hr/min): 16 Billed Treatment Time 1 visit EX (16 min) KAROLINA GUTIERREZ Aug 22, 2022 14:27
[2022-08-22] MEDS: LACTULOSE SYRUP 10GM/15ML (ENULOSE) 30ML UDC PO PRN (16:01)
[2022-08-22 20:00] VITALS: BP 127/66
[2022-08-22] MEDS: ROSUVASTATIN 5 MG (CRESTOR) TABLET PO SCH (20:26)
[2022-08-22] MEDS: MONTELUKAST 10 MG (SINGULAIR) TAB PO SCH (20:26)
[2022-08-22] MEDS: MELATONIN 3 MG TABLET PO PRN (21:35)
--- NOTE | 2022-08-23 06:24 | PM&R Progress Note ---
Subjective HPI/CC On Admission Date Seen by Provider: Aug 23, 2022 Time Seen by Provider: 09:00 Subjective/Events-last exam 08/23/2022: 08/22/2022: Pt is doing pretty well except for insomnia, anything I can give her for insomnia will place her at risk for falls Bowels moved on 08/2008/21/2022: Pt is doing pretty well Labs are improved Sutures will be taken out today Pain is controlled Right arm is in a sling 08/20/2022: Patient doing well Walking well No falls Pain controlled Bowels are moving well 08/19/2022: Patient doing much better Participating in therapy Pain is improved Check meds and labs 08/18/2022: Doing much better Daughter in law is at bedside from [place] Son wants to see Dr Steinberg when he sees patient on Sunday Refresh tears for right eye is needed Large BM today 08/17/2022: No major issues Pain controlled No falls In a good mood Slept well Checked meds 08/16/2022: Improved status Less pain Therapy going well Very slow recovery Right face edema improved 08/15/2022: No major issues Right eye less swollen Wrist pain noted so will give Oxycodone prior to therapy Used CPAP last night Tachy 100's Potassium 3.1 so ordered supplement Review of Systems General: Fatigue, Malaise Musculoskeletal: arm pain Objective Exam Vital Signs Vital Signs Date Time Temp Pulse Resp B/P (MAP) Pulse Ox O2 Delivery O2 Flow Rate FiO2 08/23/22 08:55 98 Room Air 08/23/22 07:17 36.5 80 20 137/89 (105) 08/22/22 20:32 0.00 Capillary Refill : General Appearance: No Apparent Distress, WD/WN, Chronically ill HEENT: Pharynx Normal, Other (Right facial hematoma with edematous periorbital region) Neck: Full Range of Motion, Normal Inspection, Non Tender, Supple, Carotid Bruit Respiratory: Chest Non Tender, Lungs Clear, Normal Breath Sounds, No Accessory Muscle Use, No Respiratory Distress Cardiovascular: No Edema, No Gallop, No JVD, No Murmur, Normal Peripheral Pulses, Irregularly Irregular Gastrointestinal: Normal Bowel Sounds, No Organomegaly, No Pulsatile Mass, Non Tender, Soft Back: Normal Inspection, No CVA Tenderness, No Vertebral Tenderness Extremity: Normal Capillary Refill, Normal Inspection, Normal Range of Motion (Except right arm), Non Tender, No Calf Tenderness, No Pedal Edema Neurologic/Psychiatric: Alert, Oriented x3, Normal Mood/Affect, box liner II-XII Norm as Tested, Abnormal Gait, Motor Weakness (Right arm with sling) Skin: Normal Color, Warm/Dry Lymphatic: No Adenopathy Results/Procedures Lab Patient resulted labs reviewed. FIM Transfers Therapy Code Descriptions/Definitions Functional [place] Measure: 0=Not Assessed/NA 4=Minimal Assistance 1=Total Assistance 5=Supervision or Setup 2=Maximal Assistance 6=Modified [place] 3=Moderate Assistance 7=Complete IndependenceSCALE: Activities may be completed with or without assistive devices. 2-Nuhxtrfqze-cvvveog completes the activity by him/herself with no assistance from a helper. 5-Set-up or Clean-up Assistance-helper sets up or cleans up; patient completes activity. [place] assists only prior to or following the activity. 4-Supervision or Touching Assistance-helper provides verbal cues and/or touching/steadying and/or contact guard assistance as patient completes activity. Assistance may be provided throughout the activity or intermittently. 3-Partial/Moderate Assistance-helper does LESS THAN HALF the effort. [place] lifts, holds or supports trunk or limbs, but provides less than half the effort. 2-Substantial/Maximal Assistance-helper does MORE THAN HALF the effort. [place] lifts or holds trunk or limbs and provides more than half the effort. 6-Qicmlblyn-uamzfu does ALL the effort. Patient does none of the effort to complete the activity. Or, the assistance of 2 or more helpers is required for the patient to complete the activity. If activity was not attempted, code reason: 7-Patient Refused. 9-Not Applicable-not attempted and the patient did not perform the activity before the current illness, exacerbation or injury. 10-Not Attempted due to Environmental Limitations-(lack of equipment, weather restraints, etc.). 88-Not Attempted due to Medical Conditions or Safety Concerns. Roll Left to Right (QC): 5 Sit to Lying (QC): 5 Sit to Stand (QC): 5 Chair/Nwm-ef-Vlxqs Xfer(QC): 5 Car Transfer (QC): 5 Gait Training Does the Patient Walk?: Yes Distance: 500ft, 100ft Walk 10 feet (QC): 5 Walk 50 ft with 2 Turns(QC): 5 Walk 150 ft (QC): 5 Walking 10ft/uneven surface-QC: 5 Gait Persons Needed: 1 Gait Assistive Device: Cane Large Base Quad Wheelchair Training Does the Pt Use a Wheelchair?: No Wheel 50 ft with 2 turns (QC): 9 Wheel 150 ft (QC): 9 Type of Wheelchair: N/A Stair Training Stair Training: Handrails/: 1 handrail, uses cane #of Steps: 4 1 Step (curb) (QC): 5 4 Steps (QC): 4 12 Steps (QC): 88 Stairs: Pattern: Step to Balance Picking up an Object (QC): 5 ADL-Treatment Eating (QC): 7 Oral Hygiene (QC): 5 Bathing Location: R Arm, L Upper Leg, R Upper Leg, L Lower Leg (including foot), R Lower Leg (including foot), Chest, Abdomen, Buttocks, Perineal Area Shower/Bathe Self (QC): 4 Upper Body Dressing (QC): 4 Lower Body Dressing (QC): 4 On/Off Footwear (QC): 5 Toileting Hygiene (QC): 5 Toilet Transfer (QC): 5 Assessment/Plan Assessment and Plan Assess & Plan/Chief Complaint A/P: 1. Closed head injury: Negative for intracranial injury on CT. Continue monitoring for neurological symptoms and observe facial swelling. 2. Difficulty balancing/ambulating: PT/OT 3. Anticoagulated status secondary to afib: Continue monitoring facial swelling for sign of acute bleed. Hold Xarelto until facial swelling has subsided and patient has improved balance and gait since risk of bleeding outweighs the benefits of stroke prophylaxis right now 4. HTN Continue treating on home meds. 5. Hypokalemia: K of 3.5. Start on oral potassium replacement. Recheck CMP in 1- 2 days. 6. Anemia: HGB of 11, HCT of 34. Continue monitoring and recheck HGB, HCT. 7. Elevated bilirubin: Bilirubin of 1.7. Continue monitoring for jaundice or liver dysfunction and recheck CMP. 8. UA Abnormalities: Ketones 1+, Crystals Present, Amorphous Sediment Moderate. Likely due to dehydration. Push fluids and possible recheck. 9. HLD 10. Hypothyroidism 11. GERD 12. Reactive airway disease 13. JAS on CPAP 14. Hypokalemia 15. Insomnia Plan: Hold anticoagulation Aggressive rehab Pain control Supportive care Incentive spirometer 08/15/2022: Replace potassium Oxycodone for severe pain 08/16/2022: Monitor pain BM regimen 08/17/2022: Supportive care BM regimen 08/18/2022: Maintain potassium Pain control Refresh tears 08/19/2022: Supportive care Much improved status 08/20/2022: Continue aggressive therapy Dramatic improvement 08/21/2022: Sling maintained Monitor closely 08/22/2022: Supportive care 08/23/2022: (1) Traumatic hematoma of face Status: Acute (2) Atrial fibrillation (3) Laceration of face Status: Acute (4) Chronic anticoagulation Status: Acute (5) Closed head injury Status: Acute (6) Closed right humeral fracture Status: Acute (7) Contusion of face Status: Acute (8) Fall on same level Status: Acute POLI HARGROVE DO Aug 23, 2022 06:24
[2022-08-23] MEDS: LEVOTHYROXINE 88 MCG (LEVOTHORID) TAB PO SCH (06:45)
[2022-08-23 07:17] VITALS: BP 137/89
[2022-08-23] MEDS: meTOproloL SUCCINATE 50 MG (TOPROL XL) TAB PO SCH (08:23)
[2022-08-23] MEDS: CYANOCOBALAMIN 1,000 MCG (VITAMIN B-12) TABLET PO SCH (08:23)
[2022-08-23] MEDS: KCL 10 MEQ TAB (MICRO K) PO SCH (08:23)
[2022-08-23] MEDS: OMEGA 3 (FISH OIL) 1000 MG CAP PO SCH (08:23)
[2022-08-23] MEDS: PANTOPRAZOLE 40 MG (PROTONIX) TAB PO SCH (08:24)
[2022-08-23] MEDS: VITAMIN D3 25 MCG (1,000 UNITS) TABLET PO SCH (08:24)
[2022-08-23] MEDS: dilTIAZem120 MG (CARDIZEM CD) CAP PO SCH (08:24)
[2022-08-23] MEDS: polyethylene glycoL POWDER 17 GM (MIRALAX) PACK PO SCH (08:24)
[2022-08-23] MEDS: DOCUSATE SODIUM 100 MG (COLACE) CAP PO SCH (08:24)
[2022-08-23] MEDS: VENlafaxine XR 75 MG (EFFEXOR XR) CAP PO SCH (08:24)
[2022-08-23] MEDS: SENNA W/DOCUSATE (SENOKOT S) TABLET PO SCH (08:25)
[2022-08-23] MEDS: COQ10 100 MG PO SCH (08:25)
[2022-08-23] MEDS ORDERED: RIVA20TA PO (08:57)
[2022-08-23] MEDS ORDERED: OMEG100032 PO (08:57)
[2022-08-23] MEDS ORDERED: LEVO88TA54 PO (08:57)
[2022-08-23] MEDS ORDERED: ACET-93 PO (08:57)
[2022-08-23] MEDS ORDERED: TRM50T PO (08:57)
[2022-08-23] MEDS ORDERED: DILT-27 PO (08:57)
[2022-08-23] MEDS ORDERED: METO50TA7 PO (08:57)
[2022-08-23] MEDS ORDERED: OXC5T PO (08:57)
[2022-08-23] MEDS ORDERED: DOCU100C37 PO (08:57)
[2022-08-23] MEDS ORDERED: POTA-160 PO (08:57)
[2022-08-23] MEDS ORDERED: CHOL10007 PO (08:57)
[2022-08-23] MEDS ORDERED: MONT-40 PO (08:57)
[2022-08-23] MEDS ORDERED: MELA3TAB39 PO (08:57)
[2022-08-23] MEDS ORDERED: VENL75CA93 PO (08:57)
[2022-08-23] MEDS ORDERED: CYAN100088 PO (08:57)
[2022-08-23] MEDS ORDERED: SIMV20TA26 PO (08:57)
[2022-08-23] MEDS ORDERED: PANT40TA52 PO (08:57)
--- NOTE | 2022-08-23 09:02 | D/C HH Face to Face Order ---
D/C Face to Face Orders Reconcile Patient Problems Problems Reviewed?: Yes Instructions for Patient Via [facility], Patient Instructions/FollowUp: PCP 1 week Physician to follow Patient: Joann Discharge Diet for Home: No Restrictions Patient Problems: Right humerus fracture Patient Data-Allergies,Ht & Wt Patient Allergies: Coded Allergies: Penicillins (Verified Allergy, Unknown, 08/15/22) apixaban (Verified Allergy, Unknown, Rash, 03/21/21) Height (Feet): 5 Height (Inches): 10.00 Weight (Pounds): 180 Home Health Need/Face to Face Date of Face to Face: Aug 23, 2022 Clinical Findings: Generalized weakness and fatigue, Instability, Muscle weakness, Pain with ambulation I have seen Pt oqvc-if-ycal: Yes Discharged To: Home Diagnosis/Conditions: falls Patient is Homebound due to: [place] fall risk due to instabilty, Muscle weakness Homebound Status Due to the above stated illness, injury or surgical procedure (medical condition or diagnosis) and associated clinical findings, the patient is homebound because of his/her inability to leave home except with aid of a supportive device and/or person AND leaving the home requires a considerable and taxing effort or is medically contraindicated. Pt req the following assistanc: Cane Home Health Nursing Orders Home Health Services Order: Trucker Hand-Evaluate & Treat, Physical Therapy-Evaluate & Treat Certify Stmt I certify that this patient is under my care and that I, a nurse practitioner or a physician; a account management assistant working with me, had a face to face encounter that - meets the physician face to face encounter requirements with this patient as dated. POLI HARGROVE DO Aug 23, 2022 09:02
--- NOTE | 2022-08-23 09:03 | Discharge Summary ---
Diagnosis/Chief Complaint Date of Admission Aug 14, 2022 at 13:15 Date of Discharge Discharge Date: Aug 23, 2022 Discharge Diagnosis A/P: 1. Closed head injury: Negative for intracranial injury on CT. Continue monitoring for neurological symptoms and observe facial swelling. 2. Difficulty balancing/ambulating: PT/OT 3. Anticoagulated status secondary to afib: Continue monitoring facial swelling for sign of acute bleed. Hold Xarelto until facial swelling has subsided and patient has improved balance and gait since risk of bleeding outweighs the benefits of stroke prophylaxis right now 4. HTN Continue treating on home meds. 5. Hypokalemia: K of 3.5. Start on oral potassium replacement. Recheck CMP in 1- 2 days. 6. Anemia: HGB of 11, HCT of 34. Continue monitoring and recheck HGB, HCT. 7. Elevated bilirubin: Bilirubin of 1.7. Continue monitoring for jaundice or liver dysfunction and recheck CMP. 8. UA Abnormalities: Ketones 1+, Crystals Present, Amorphous Sediment Moderate. Likely due to dehydration. Push fluids and possible recheck. 9. HLD 10. Hypothyroidism 11. GERD 12. Reactive airway disease 13. JAS on CPAP 14. Hypokalemia 15. Insomnia Plan: Hold anticoagulation Aggressive rehab Pain control Supportive care Incentive spirometer 08/15/2022: Replace potassium Oxycodone for severe pain 08/16/2022: Monitor pain BM regimen 08/17/2022: Supportive care BM regimen 08/18/2022: Maintain potassium Pain control Refresh tears 08/19/2022: Supportive care Much improved status 08/20/2022: Continue aggressive therapy Dramatic improvement 08/21/2022: Sling maintained Monitor closely 08/22/2022: Supportive care (1) Traumatic hematoma of face Status: Acute (2) Atrial fibrillation (3) Laceration of face Status: Acute (4) Chronic anticoagulation Status: Acute (5) Closed head injury Status: Acute (6) Closed right humeral fracture Status: Acute (7) Contusion of face Status: Acute (8) Fall on same level Status: Acute HARGROVEMICHAELI DO Discharge Summary Discharge Physical Examination Allergies: Coded Allergies: Penicillins (Verified Allergy, Unknown, 08/15/22) apixaban (Verified Allergy, Unknown, Rash, 03/21/21) Vitals & I&Os Vital Signs Date Time Temp Pulse Resp B/P (MAP) Pulse Ox O2 Delivery O2 Flow Rate FiO2 08/23/22 11:05 36.5 80 20 137/89 98 Room Air 0.00 General Appearance: Alert, Oriented X3, Cooperative Respiratory: Clear to Auscultation Cardiovascular: Regular Rate Psych/Mental Status: Mental Status NL Hospital Course Was the Problem List Reviewed?: Yes Pt had an uneventful 10 day hospital course after she was admitted for fall, right humerus fracture along with right facial trauma. She dramatically improved. Bowel function returned back to normal. Labs and bp remained stable. She was discharged in improved condition to assisted living. Labs (last 24 hrs) Laboratory Tests 08/15/22 05:10: White Blood Count 9.6, Red Blood Count 3.62L, Hemoglobin 9.8L, Hematocrit 31L, Mean Corpuscular Volume 85, Mean Corpuscular Hemoglobin 27, Mean Corpuscular Hemoglobin Concent 32, Red Cell Distribution Width 15.1H, Platelet Count 267, Mean Platelet Volume 9.6, Immature Granulocyte % (Auto) 0, Neutrophils (%) (Auto) 68, Lymphocytes (%) (Auto) 15, Monocytes (%) (Auto) 14H, Eosinophils (%) (Auto) 1, Basophils (%) (Auto) 1, Neutrophils # (Auto) 6.6, Lymphocytes # (Auto) 1.5, Monocytes # (Auto) 1.3H, Eosinophils # (Auto) 0.1, Basophils # (Auto) 0.1, Immature Granulocyte # (Auto) 0.0, Sodium Level 137, Potassium Level 3.1L, Chloride Level 100, Carbon Dioxide Level 24, Anion Gap 13, Blood Urea Nitrogen 12, Creatinine 0.71, Estimat Glomerular Filtration Rate 84, BUN/Creatinine Ratio 17, Glucose Level 130H, Calcium Level 8.6, Corrected Calcium 9.2, Total Bili tal[place]a 1.5H, Aspartate Amino Transf (AST/SGOT) 24, Alanine Aminotransferase (ALT/SGPT) 25, Alkaline Phosphatase 113, Total Protein 6.2L, Albumin 3.2 08/21/22 07:00: White Blood Count 7.1, Red Blood Count 4.34, Hemoglobin 11.8#, Hematocrit 37, Mean Corpuscular Volume 86, Mean Corpuscular Hemoglobin 27, Mean Corpuscular Hemoglobin Concent 32, Red Cell Distribution Width 15.7H, Platelet Count 380, Mean Platelet Volume 9.0, Immature Granulocyte % (Auto) 0, Neutrophils (%) (Auto) 62, Lymphocytes (%) (Auto) 21, Monocytes (%) (Auto) 11, Eosinophils (%) (Auto) 4, Basophils (%) (Auto) 1, Neutrophils # (Auto) 4.4, Lymphocytes # (Auto) 1.5, Monocytes # (Auto) 0.8, Eosinophils # (Auto) 0.3, Basophils # (Auto) 0.1, Immature Granulocyte # (Auto) 0.0, Sodium Level 139, Potassium Level 3.8, Chloride Level 102, Carbon Dioxide Level 25, Anion Gap 12, Blood Urea Nitrogen 13, Creatinine 0.77, Estimat Glomerular Filtration Rate 76, BUN/Creatinine Ratio 17, Glucose Level 97, Calcium Level 9.4, Corrected Calcium 9.6, Total Bilirubin 1.0, Aspartate Amino Transf (AST/SGOT) 29, Alanine Aminotransferase (ALT/SGPT) 34, Alkaline Phosphatase 156H, Total Protein 7.7, Albumin 3.8 Pending Labs Laboratory Tests 08/15/22 05:10: White Blood Count 9.6, Red Blood Count 3.62, Hemoglobin 9.8, Hematocrit 31, Mean Corpuscular Volume 85, Mean Corpuscular Hemoglobin 27, Mean Corpuscular Hemoglobin Concent 32, Red Cell Distribution Width 15.1, Platelet Count 267, Mean Platelet Volume 9.6, Immature Granulocyte % (Auto) 0, Neutrophils (%) (Auto) 68, Lymphocytes (%) (Auto) 15, Monocytes (%) (Auto) 14, Eosinophils (%) (Auto) 1, Basophils (%) (Auto) 1, Neutrophils # (Auto) 6.6, Lymphocytes # (Auto) 1.5, Monocytes # (Auto) 1.3, Eosinophils # (Auto) 0.1, Basophils # (Auto) 0.1, Immature Granulocyte # (Auto) 0.0, Sodium Level 137, Potassium Level 3.1, Chloride Level 100, Carbon Dioxide Level 24, Anion Gap 13, Blood Urea Nitrogen 12, Creatinine 0.71, Estimat Glomerular Filtration Rate 84, BUN/Creatinine Ratio 17, Glucose Level 130, Calcium Level 8.6, Corrected Calcium 9.2, Total Bilirubin 1.5, Aspartate Amino Transf (AST/SGOT) 24, Alanine Aminotransferase (ALT/SGPT) 25, Alkaline Phosphatase 113, Total Protein 6.2, Albumin 3.2 08/21/22 07:00: White Blood Count 7.1, Red Blood Count 4.34, Hemoglobin 11.8, Hematocrit 37, Mean Corpuscular Volume 86, Mean Corpuscular Hemoglobin 27, Mean Corpuscular Hemoglobin Concent 32, Red Cell Distribution Width 15.7, Platelet Count 380, Mean Platelet Volume 9.0, Immature Granulocyte % (Auto) 0, Neutrophils (%) (Auto) 62, Lymphocytes (%) (Auto) 21, Monocytes (%) (Auto) 11, Eosinophils (%) (Auto) 4, Basophils (%) (Auto) 1, Neutrophils # (Auto) 4.4, Lymphocytes # (Auto) 1.5, Monocytes # (Auto) 0.8, Eosinophils # (Auto) 0.3, Basophils # (Auto) 0.1, Immature Granulocyte # (Auto) 0.0, Sodium Level 139, Potassium Level 3.8, Chloride Level 102, Carbon Dioxide Level 25, Anion Gap 12, Blood Urea Nitrogen 13, Creatinine 0.77, Estimat Glomerular Filtration Rate 76, BUN/Creatinine Ratio 17, Glucose Level 97, Calcium Level 9.4, Corrected Calcium 9.6, Total Bilirubin 1.0, Aspartate Amino Transf (AST/SGOT) 29, Alanine Aminotransferase (ALT/SGPT) 34, Alkaline Phosphatase 156, Total Protein 7.7, Albumin 3.8 Discharge Home Medications: Active Scripts Active Melatonin 3 Mg Tablet 3 Mg PO HS PRN Docusate Sodium 100 Mg Capsule 100 Mg PO BID Klor-Con 10 (Potassium Chloride) 10 Meq Tablet.er 10 Meq PO DAILY Acetaminophen 500 Mg Tablet 1,000 Mg PO Q8H PRN Tramadol HCl 50 Mg Tablet 50 Mg PO QID PRN Oxyir Tablet (Oxycodone HCl) 5 Mg Tab 5 Mg PO Q4H PRN Fish Oil 1,000 mg Softgel (Aneta-3/Dha/Epa/Fish Oil) 1,000 Mg (120 Mg-180 Mg) Capsule 1,000 Mg PO DAILY Diltiazem 24Hr ER (Diltiazem HCl) 120 Mg Cap.er.24h 120 Mg PO BID Venlafaxine HCl ER (Venlafaxine HCl) 75 Mg Cap.er.24h 75 Mg PO DAILY Montelukast Sodium 10 Mg Tablet 10 Mg PO HS Xarelto (Rivaroxaban) 20 Mg Tablet 20 Mg PO DAILY B-12 (Cyanocobalamin (Vitamin B-12)) 1,000 Mcg Tablet 1,000 Mcg PO DAILY Vitamin D3 (Cholecalciferol (Vitamin D3)) 25 Mcg (1000 Unit) Capsule 25 Mcg PO DAILY Simvastatin 20 Mg Tablet 20 Mg PO HS Pantoprazole Sodium 40 Mg Tablet.dr 40 Mg PO DAILY Levothyroxine Sodium 88 Mcg Tablet 88 Mg PO DAILY Metoprolol Succinate 50 Mg Tab.er.24h 50 Mg PO BID Instructions to patient/family Please see electronic discharge instructions given to patient. Diagnosis/Problems Diagnosis/Problems (1) Traumatic hematoma of face Status: Acute (2) Atrial fibrillation (3) Laceration of face Status: Acute (4) Chronic anticoagulation Status: Acute (5) Closed head injury Status: Acute (6) Closed right humeral fracture Status: Acute (7) Contusion of face Status: Acute (8) Fall on same level Status: Acute POLI HARGROVE DO Aug 23, 2022 09:03
[2022-08-23 11:05] VITALS: BP 137/89
--- NOTE | 2022-08-23 11:42 | Therapy Team Discharge Summary ---
Therapy Discharge Summary Discharge Recommendations Date of Discharge Aug 23, 2022 at 11:11 Physical Therapy Roll Left to Right (QC): 5 Sit to Lying (QC): 5 Lying to Sitting/Side of Bed(Q: 5 Sit to Stand (QC): 5 Chair/Bbj-ce-Dokim Xfer(QC): 5 Toilet Transfer (QC): 5 Car Transfer (QC): 5 Does the Patient Walk: Yes Mode of Locomotion: Walk Anticipated Mode of Locomotion: Walk Walk 10 feet (QC): 5 Walk 50 ft with 2 Turns(QC): 5 Walk 150 ft (QC): 5 Walking 10ft on uneven surface: 5 Distance: 20', 100', 150' Gait Assistive Device: Cane Large Base Quad Does the Pt Use a Wheelchair: No Wheel 50 ft with 2 turns (QC): 9 Wheel 150 ft (QC): 9 Type of Wheelchair: N/A #of Steps: 4 1 Step (curb) (QC): 5 4 Steps (QC): 4 12 Steps (QC): 88 Balance Sitting Static: Normal Balance Sitting Dynamic: Normal Balance-Standing Static: Normal Picking up an Object (QC): 5 Occupational Therapy Pt admitted to ARU with debility. At [facility], pt was independent with ADLs and functional mobility without AD, she did require some assistance over the past couple of weeks due to recent humerus fx. Upon initial evaluation, pt required set up with eating and oral care, and Min A with showering, UE/LE dressing, footwear and toileting. OT tx focused on increasing UE strength and activity tolerance (following Non-Operative protocol for humerus fx), and increasing safety and independence with ADLs and functional mobility. Pt made functional progress towards goals, but only attained LTG for oral care. Pt discharged from facility, d/c from OT. OT recommends continued OT services at [facility] Decreased Activ Tolerance, Decreased UE Strength, Impaired Cognition, Impaired I ADL's, Impaired Self-Care Skills, Restricted Funct UE ROM Eating (QC): 5 Oral Hygiene (QC): 6 Shower/Bathe Self (QC): 4 Upper Body Dressing (QC): 4 Lower Body Dressing (QC): 4 On/Off Footwear (QC): 5 Toileting Hygiene (QC): 4 PT Prison Goals Privacy Officer Goals PT Prison Goals Time Frame: Sep 04, 2022 Roll Left to Right (QC): 6 Sit to Lying (QC): 6 Lying-Sitting on Side/Bed(QC): 6 Sit to Stand (QC): 6 Chair/Psl-xg-Feiyd Xfer(QC): 6 Toilet/Commode Transfer (QC): 6 Car Transfer (QC): 6 Does the Patient Walk: Yes Walk 10 feet (QC): 6 Walk 10ft-Uneven Surface(QC): 6 Walk 50ft with 2 Turns (QC): 6 Walk 150 ft (QC): 6 Wheel 50 feet with 2 turns (QC: 9 Wheel 150 feet: 9 1 Step (curb) (QC): 6 4 Steps (QC): 6 12 Steps (QC): 6 Picking up an Object (QC): 6 (with director mission arm) OT Privacy Officer Goals Prison Goals Time Frame: Sep 15, 2022 Acute change in mental status: 0 Inattention: 0 Disorganized thinkin Altered level of consciousness: 0 Eating (QC): 6 (not met) Oral Hygiene (QC): 6 (met) Toileting Hygiene (QC): 6 (not met) Shower/Bathe Self (QC): 6 (not met) Upper Body Dressing (QC): 6 (not met) Lower Body Dressing (QC): 6 (not met) On/Off Footwear (QC): 6 (not met) Additional Goals: 1-Demonstrate ADL Tasks, 2-Verbalize Understanding, 3- ImproveStrength/Jenae 1=Demonstrate adherence to instructed precautions during ADL tasks. 2=Patient will verbalize/demonstrate understanding of assistive devices/modifications for ADL. 3=Patient will improve strength/tolerance for activity to enable patient to perform ADL's. RUI MENDOZA OT Aug 23, 2022 11:42
--- NOTE | 2022-08-23 14:52 | Therapy Team Discharge Summary ---
Therapy Discharge Summary Discharge Recommendations Date of Discharge Aug 23, 2022 at 11:11 Physical Therapy Patient came to rehab with debility. Upon evaluation patient performed rolling and supine <-> sit min assist, sit <-> stand CGA, transfers min assist, car transfer min assist, ambulated 150' with a hemiwalker with CGA (including 50' with at least 2 turns of 90 degrees and 10' over an uneven surface), went up and down 1 step using a hemiwalker with CGA, and picked up an object from the floor using a black leather trimmer with CGA. Patient has been performing bed mobility and transfer training, balance and endurance training, functional strengthening, stair training, gait training, and education. 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 Now, patient performs rolling and supine <-> sit with setup, sit <-> stand and transfers with setup, car transfer with setup, ambulates 250' with a quad cane with setup (including 50' with at least 2 turns of 90 degrees and 10' over an uneven surface), can go up and down 8 steps using a quad cane with CGA/SBA, and can picker box operator an object from the floor using a black leather trimmer with setup. Patient has been discharged from this facility and will be discharged from PT at this time. Roll Left to Right (QC): 5 Sit to Lying (QC): 5 Lying to Sitting/Side of Bed(Q: 5 Sit to Stand (QC): 5 Chair/Vvv-eu-Ojzjl Xfer(QC): 5 Toilet Transfer (QC): 5 Car Transfer (QC): 5 Does the Patient Walk: Yes Mode of Locomotion: Walk Anticipated Mode of Locomotion: Walk Walk 10 feet (QC): 5 Walk 50 ft with 2 Turns(QC): 5 Walk 150 ft (QC): 5 Walking 10ft on uneven surface: 5 Distance: 20', 100', 150' Gait Assistive Device: Cane Large Base Quad Does the Pt Use a Wheelchair: No Wheel 50 ft with 2 turns (QC): 9 Wheel 150 ft (QC): 9 Type of Wheelchair: N/A #of Steps: 4 1 Step (curb) (QC): 5 4 Steps (QC): 4 12 Steps (QC): 88 Balance Sitting Static: Normal Balance Sitting Dynamic: Normal Balance-Standing Static: Normal Picking up an Object (QC): 5 Occupational Therapy Decreased Activ Tolerance, Decreased UE Strength, Impaired Cognition, Impaired I ADL's, Impaired Self-Care Skills, Restricted Funct UE ROM Eating (QC): 5 Oral Hygiene (QC): 6 Shower/Bathe Self (QC): 4 Upper Body Dressing (QC): 4 Lower Body Dressing (QC): 4 On/Off Footwear (QC): 5 Toileting Hygiene (QC): 4 PT Nursing Home Goals Nursing Home Goals PT Private Tutor Goals Time Frame: Sep 04, 2022 Roll Left to Right (QC): 6 Sit to Lying (QC): 6 Lying-Sitting on Side/Bed(QC): 6 Sit to Stand (QC): 6 Chair/Edj-qq-Pmbbh Xfer(QC): 6 Toilet/Commode Transfer (QC): 6 Car Transfer (QC): 6 Does the Patient Walk: Yes Walk 10 feet (QC): 6 Walk 10ft-Uneven Surface(QC): 6 Walk 50ft with 2 Turns (QC): 6 Walk 150 ft (QC): 6 Wheel 50 feet with 2 turns (QC: 9 Wheel 150 feet: 9 1 Step (curb) (QC): 6 4 Steps (QC): 6 12 Steps (QC): 6 Picking up an Object (QC): 6 (with black leather trimmer arm) OT Private Tutor Goals Private Tutor Goals Time Frame: Sep 15, 2022 Acute change in mental status: 0 Inattention: 0 Disorganized thinkin Altered level of consciousness: 0 Eating (QC): 6 (not met) Oral Hygiene (QC): 6 (met) Toileting Hygiene (QC): 6 (not met) Shower/Bathe Self (QC): 6 (not met) Upper Body Dressing (QC): 6 (not met) Lower Body Dressing (QC): 6 (not met) On/Off Footwear (QC): 6 (not met) Additional Goals: 1-Demonstrate ADL Tasks, 2-Verbalize Understanding, 3- ImproveStrength/Jenae 1=Demonstrate adherence to instructed precautions during ADL tasks. 2=Patient will verbalize/demonstrate understanding of assistive devices/modifications for ADL. 3=Patient will improve strength/tolerance for activity to enable patient to perform ADL's. AYLA NATHAN PT Aug 23, 2022 14:52
== END 2022-08-23 11:11 | disposition home health service (06) | DRG 950 ==
PROVIDERS: ADMIT Internal Medicine; ATTEND Internal Medicine
PROC: 5A09357 Assistance with Respiratory Ventilation, Less than 24 Consecutive Hours, Continuous Positive Airway Pressure (ICD-10-PCS; principal; 2022-08-16)
DX: S00.83XD Contusion of other part of head, subsequent encounter (principal); S00.11XD Contusion of right eyelid and periocular area, subsequent encounter; Z91.81 History of falling; S42.301D Unspecified fracture of shaft of humerus, right arm, subsequent encounter for fracture with routine healing; R26.89 Other abnormalities of gait and mobility; I48.91 Unspecified atrial fibrillation; E87.6 Hypokalemia; G47.33 Obstructive sleep apnea (adult) (pediatric); G47.00 Insomnia, unspecified; D64.9 Anemia, unspecified; I10 Essential (primary) hypertension; E78.5 Hyperlipidemia, unspecified; E03.9 Hypothyroidism, unspecified; K21.9 Gastro-esophageal reflux disease without esophagitis; J45.909 Unspecified asthma, uncomplicated; E80.6 Other disorders of bilirubin metabolism; H91.92 Unspecified hearing loss, left ear; Z79.01 Long term (current) use of anticoagulants; Z96.651 Presence of right artificial knee joint; Z88.0 Allergy status to penicillin; Z88.8 Allergy status to other drugs, medicaments and biological substances; W19.XXXD Unspecified fall, subsequent encounter; Y92.091 Bathroom in other non-institutional residence as the place of occurrence of the external cause
CPT/HCPCS: 36415; 80053; 85025; 94664; 94760

== ENCOUNTER → 2022-09-06 | Outpatient (CLI) | payer MEDICARE, OTHER ==
[~2022-09-06] MED LIST changes: +ACET-93 PO; +DILT-27 PO; +DOCU100C37 PO; +FISH1CAP15 PO; +MELA3TAB39 PO; +MONT-40 PO; +OMEG100032 PO; +OXC5T PO; +POTA-160 PO; +TRAM50TA3 PO; +TRM50T PO; +VENL75CA93 PO
--- NOTE | 2022-09-06 11:55 | Diagnostic Imaging Report ---
EXAMINATION: Right shoulder radiographs, 2 views. COMPARISON: Right shoulder radiographs August 08, 2022. HISTORY: 82-year-old female, follow-up right proximal humerus fracture. Right shoulder pain. FINDINGS: There is a redemonstrated mildly displaced right proximal humerus fracture with fracture involvement at least at the level of the humeral neck. There is at least some involvement of the tuberosity best demonstrated on the scapular Y view. There is interval periosteal reaction and heterotopic ossification. There is a persistent visible fracture line without complete bony bridging. The acromio clavicular joint is normally aligned. The humeral head is normally positioned relative to the glenoid. IMPRESSION: 1. Right proximal humerus fracture involving at least the humeral neck with minimally displaced tuberosity fracture extension. There is interval periosteal reaction and heterotopic ossification and partial bridging without complete bony bridging of the fracture. Dictated by: Dictated on workstation # [id number]
== END ==
LOC: ORTHO 10:01
PROVIDERS: ATTEND Orthopaedic Surgery
DX: Z47.89 Encounter for other orthopedic aftercare (principal); S42.201D Unspecified fracture of upper end of right humerus, subsequent encounter for fracture with routine healing; X58.XXXD Exposure to other specified factors, subsequent encounter
CPT/HCPCS: 73030; G0463; 99213

== ENCOUNTER → 2022-09-06 | Outpatient (CLI) | payer MEDICARE, OTHER ==
[2022-09-06 11:26] LABS: BASOPHILS # (AUTO) 0.1 10^3/uL (0.0-0.1); BASOPHILS % (AUTO) 1 % (0-10); EOSINOPHILS # (AUTO) 0.1 10^3/uL (0.0-0.3); EOSINOPHILS % (AUTO) 2 % (0-10); HEMATOCRIT 41 % (35-52); HEMOGLOBIN 12.6 g/dL (11.5-16.0); LYMPHOCYTES # (AUTO) 1.4 10^3/uL (1.0-4.0); LYMPHOCYTES % (AUTO) 15 % (12-44); MEAN CORPUSCULAR HEMOGLOBIN 27 pg (25-34); MEAN CORPUSCULAR HGB CONC 31 g/dL (32-36); MEAN CORPUSCULAR VOLUME 86 fL (80-99); MEAN PLATELET VOLUME 11.2 fL (9.0-12.2); MONOCYTES % (AUTO) 11 % (0-12); NEUTROPHILS # (AUTO) 6.8 10^3/uL (1.8-7.8); NEUTROPHILS % (AUTO) 72 % (42-75); PLATELET COUNT 256 10^3/uL (130-400); WHITE BLOOD COUNT 9.4 10^3/uL (4.3-11.0)
[2022-09-06 11:44] LABS: CALCIUM 9.8 MG/DL (8.5-10.1); CREATININE SERUM 0.84 MG/DL (0.60-1.30); POTASSIUM 3.9 MMOL/L (3.6-5.0)
== END ==
LOC: LAB 11:05
PROVIDERS: ATTEND Family Medicine
DX: D64.9 Anemia, unspecified (principal); E87.6 Hypokalemia
CPT/HCPCS: 36415; 80048; 85025

== ENCOUNTER → 2022-10-10 | Outpatient (CLI) | payer MEDICARE, OTHER ==
--- NOTE | 2022-10-10 18:32 | Diagnostic Imaging Report ---
Indication: Cough and crackles. Time of Exam: 1:26 PM Correlation is made with prior chest 08/02/2022. Heart size normal. There is some right basilar consolidation and small to moderate right basilar effusion. Left lung is clear. The pulmonary vascularity is normal. There are findings suspicious for a very small right apical pneumothorax. Fracture of the right proximal humerus is again noted. IMPRESSION: Development of a small to moderate right basilar effusion with right basilar infiltrate or atelectasis. There is a questionable tiny right apical pneumothorax, as well. Proximal right humerus fracture. Results were discussed with Dr. David prior to this dictation. Dictated by: Dictated on workstation # [id number]
== END ==
LOC: RAD 13:01
PROVIDERS: ATTEND Family Medicine
DX: R09.89 Other specified symptoms and signs involving the circulatory and respiratory systems (principal); R05.9 Cough, unspecified; S42.201D Unspecified fracture of upper end of right humerus, subsequent encounter for fracture with routine healing; X58.XXXD Exposure to other specified factors, subsequent encounter
CPT/HCPCS: 71046

== ENCOUNTER → 2022-10-10 | Outpatient (CLI) | payer MEDICARE, OTHER ==
--- NOTE | 2022-10-10 18:41 | Diagnostic Imaging Report ---
INDICATION: Fracture follow-up, orthopedic assessment COMPARISON: 09/06/2022. TECHNIQUE: Two radiographs of the right shoulder dated 10/10/2022. FINDINGS: Previously noted proximal humeral fracture is again identified remaining in stable alignment. Increasing periosteal reaction and callus formation is noted about the fracture with decreasing conspicuity of the fracture planes. Mild degenerative changes of the acromioclavicular joint. No new fracture or dislocation. No destructive osseous process. No suspicious radiopaque foreign body. IMPRESSION: Interval healing of previously noted proximal right humeral fracture remaining in stable alignment without new acute osseous abnormality. Dictated by: Dictated on workstation # [id number]
== END ==
LOC: ORTHO 13:04
PROVIDERS: ATTEND Orthopaedic Surgery
DX: Z47.89 Encounter for other orthopedic aftercare (principal); S42.201D Unspecified fracture of upper end of right humerus, subsequent encounter for fracture with routine healing; X58.XXXD Exposure to other specified factors, subsequent encounter
CPT/HCPCS: 73030; G0463; 99213

== ENCOUNTER → 2022-11-21 | Outpatient (CLI) | payer MEDICARE, OTHER | LOC: ORTHO 09:37 | PROVIDERS: ATTEND Orthopaedic Surgery | DX: S42.201A Unspecified fracture of upper end of right humerus, initial encounter for closed fracture (principal); X58.XXXA Exposure to other specified factors, initial encounter | CPT/HCPCS: 99213 ==

== ENCOUNTER 2023-03-21 11:13 | Outpatient (RCR) | payer MEDICARE, OTHER | END 2023-03-21 12:13 | disposition home or self-care (01) | PROVIDERS: ATTEND Family Medicine | DX: R26.89 Other abnormalities of gait and mobility (principal); W19.XXXA Unspecified fall, initial encounter ==